=== PATIENT | female | born 1960 | race African-American/Black ===

== ENCOUNTER 2017-02-17 10:37 | Emergency (ER) | payer OTHER ==
[2017-02-17 10:54] VITALS: BMI 44.9
--- NOTE | 2017-02-17 12:02 | PDOC ---
History of Present Illness - General History Source: Patient Exam Limitations: No Limitations - History of Present Illness Initial Comments: 02/17/17 12:03 The patient is a 57-year old woman, accompanied by family, with a significant past medical history of anemia, hypertension, hypercholesterolemia, coronary artery disease, myocardial infarction x2, congestive heart failure status post ICD, thyroid disease, pelptic ulcers, asthma, chronic obstructive pulmonary disease and depression who presents to the emergency department via walk-in for further evaluation of right knee pain for the past 4 days. No fall, trauma, strenuous activity. She states that she woke up morning with sever eight knee pain that did not allow her to move or ambulate. Patient states that her pain is constant and radiates down her to her toes. No left knee or leg pain. She reports taking Tylenol for her pain, but states that it did not provide much relief. She denies experiencing numbness, weakness or tingling sensations to her extremities. She also reports having a hysterectomy with skin graft in 2006. She states that has a wound from the surgery that keeps opening. She reports following up with Dr. Reece Lanza, who recommends daily washes with lukewarm water and soap, as she has been informed that she isn't a surgical candidate as she is high risk. No abdominal pain, nausea, vomiting, diarrhea. No urinary complaints. She denies fever, chills, cough, shortness of breath. Allergies: Ibuprofen. Codeine. Chlorpheniramine. Cimetidine. Tomato Past Surgical History: Pacemaker. Stent Placements. Left knee surgery. Cholecysectomy. Hysterectomy with skin graft/ Social History: No tobacco, ETOH and recreational drug use. Primary Care Physician: Dr. Reece Lanza [phone] <Debra Pierson - Last Filed: 02/17/17 15:15> - General History Source: Patient, Old Records Exam Limitations: No Limitations <Tish Ward - Last Filed: 02/17/17 15:44> - General Chief Complaint: Pain, Acute Stated Complaint: ABD WOUND, PAIN TO HIP/ LEG Time Seen by Provider: 02/17/17 12:02 Past History <Debra Pierson - Last Filed: 02/17/17 15:15> - Past Medical History Anemia: Yes Asthma: Yes Cancer: No Cardiac Disorders: Yes ([place] X 2) COPD: Yes CHF: Yes (S/P ICD) Diabetes: Yes GI Disorders: Yes (PEPTIC ULCER) HTN: Yes Hypercholesterolemia: Yes Psychiatric Problems: Yes (DEPRESSION) Thyroid Disease: Yes - Surgical History Abdominal Surgery: No Appendectomy: No Cardiac Surgery: Yes (pacemaker and stents) Cholecystectomy: Yes Lung Surgery: No Neurologic Surgery: No Orthopedic Surgery: Yes (L. Knee) - Immunization History Immunization Up to Date: No - Psycho/Social/Smoking Cessation Hx Anxiety: No Suicidal Ideation: No Smoking Status: No Smoking History: Never smoked Have you smoked in the past 12 months: No Number of Cigarettes Smoked Daily: 0 Hx Alcohol Use: No Drug/Substance Use Hx: No Substance Use Type: None Hx Substance Use Treatment: No <Tish Ward - Last Filed: 02/17/17 15:44> - Past Medical History Allergies/Adverse Reactions: Allergies Allergy/AdvReac Type Severity Reaction Status Date / Time tomato Allergy Mild Hives Verified 01/18/17 12:46 chlorpheniramine Allergy Verified 01/18/17 12:46 cimetidine Allergy Verified 01/18/17 12:46 codeine [Codeine] Allergy Verified 01/18/17 12:46 ibuprofen Allergy Verified 01/18/17 12:46 latex [Latex] Allergy Verified 01/18/17 12:46 Latex, Natural Rubber Allergy Verified 01/18/17 12:46 pseudoephedrine Allergy Verified 01/18/17 12:46 salmeterol xinafoate Allergy Verified 01/18/17 12:46 [From Advair Diskus] Sulfa (Sulfonamide Allergy Verified 01/18/17 12:46 Antibiotics) [Sulfa(Sulfonamide Antibiotics)] Chocolate Allergy Mild Hives Uncoded 01/18/17 12:46 shrimp Allergy Mild Hives Uncoded 01/18/17 12:46 Home Medications: Ambulatory Orders Aspirin [ASA -] 81 mg PO HS 08/09/16 Atorvastatin Ca [Lipitor] 40 mg PO HS 08/09/16 Carvedilol [Coreg] 12.5 mg PO BID 08/09/16 Duloxetine HCl [Cymbalta] 30 mg PO DAILY 08/09/16 Fluticasone Propionate [Flovent Diskus] 100 mcg IH BID 08/09/16 Furosemide [Lasix -] 60 mg PO BID 08/09/16 Gabapentin [Neurontin -] 300 mg PO Q8H 08/09/16 Insulin Glargine,Hum.rec.anlog [Lantus Solostar PEN -] 40 units SQ ACBK Levothyroxine [Synthroid -] 75 mcg PO DAILY 08/09/16 Linaclotide [Linzess] 290 mcg PO DAILY 08/09/16 Montelukast Na [Singulair -] 10 mg PO HS 08/09/16 Omeprazole 20 mg PO TID 08/09/16 Albuterol Sulfate Inhaler - [Ventolin HFA Inhaler -] 1 - 2 inh PO Q4H PRN Amlodipine Besylate 5 mg PO HS 10/14/16 Budesonide/Formeterol Fumarate [SYMBICORT 160/4.5mcg -] 1 inh PO DAILY 10/14/16 Linagliptin/Metformin HCl [Jentadueto 2.5 mg-1000 mg Tab] 1 each PO BID Lipase/Protease/Amylase [Gildardo Goodman 36,000 Units Capsule] 1 each PO TID 10/14/16 Sacubitril/Valsartan [Entresto 24 mg-26 mg Tablet] 1 tab PO BID 10/14/16 Review of Systems - Review of Systems Able to Perform ROS?: Yes Comments:: 02/17/17 12:03 GENERAL/CONSTITUTIONAL: No fever or chills. No weakness. HEAD, EYES, EARS, NOSE AND THROAT: No change in vision. No ear pain or discharge. No sore throat. CARDIOVASCULAR: No chest pain or shortness of breath. RESPIRATORY: No cough, wheezing, or hemoptysis. GASTROINTESTINAL: No nausea, vomiting, diarrhea or constipation. GENITOURINARY: No dysuria, frequency, or change in urination. MUSCULOSKELETAL: Yes: Right knee pain that radiates down the leg. No joint or muscle swelling or pain. No neck or back pain. SKIN: Yes: Abdominal wound/scar. No rash NEUROLOGIC: No headache, vertigo, loss of consciousness, or change in strength/ sensation. ENDOCRINE: No increased thirst. No abnormal weight change. HEMATOLOGIC/LYMPHATIC: No anemia, easy bleeding, or history of blood clots. ALLERGIC/IMMUNOLOGIC: No hives or skin allergy. <Debra Pierson - Last Filed: 02/17/17 15:15> *Physical Exam - Vital Signs Last Vital Signs Temp Pulse Resp BP Pulse Ox 97.1 F L 105 H 18 128/92 97 02/17/17 10:52 02/17/17 10:52 02/17/17 10:52 02/17/17 10:52 02/17/17 10:52 - Physical Exam Comments: 02/17/17 12:03 GENERAL: Awake, alert, and fully oriented, in no acute distress HEAD: No signs of trauma EYES: PERRLA, EOMI, sclera anicteric, conjunctiva clear ENT: Auricles normal inspection, hearing grossly normal, nares patent, oropharynx clear without exudates. Moist mucosa NECK: Normal ROM, supple, no lymphadenopathy, JVD, or masses LUNGS: Breath sounds equal, clear to auscultation bilaterally. No wheezes, and no crackles HEART: Regular rate and rhythm, normal S1 and S2, no murmurs, rubs or gallops ABDOMEN: There is an approximately 2 by 2 cm healing wound to the anterior abdominal wall near prior skin graft and abdominal scar. The wound is not infected, no purulent drainage. Soft, nontender, normoactive bowel sounds. No guarding, no rebound. No masses EXTREMITIES: There is tenderness to palpation to the right patellar and right posterior calf. There is also some tenderness over the popliteal region. No edema. No clubbing or cyanosis. No cords, erythema. NEUROLOGICAL: Cranial nerves II through XII grossly intact. Normal speech, normal gait <David Piersonine - Last Filed: 02/17/17 15:15> - Vital Signs Last Vital Signs Temp Pulse Resp BP Pulse Ox 97.1 F L 105 H 18 128/92 97 02/17/17 10:52 02/17/17 10:52 02/17/17 10:52 02/17/17 10:52 02/17/17 10:52 <Tish Ward - Last Filed: 02/17/17 15:44> ED Treatment Course - RADIOLOGY Radiograph Interpretation: 02/17/17 14:23 EXAM: RAD/KNEE 2 POS-RIGHT IMPRESSION:Osteoarthritis of the right knee involving the patellofemoral joint compartment, lateral > media tibiofemoral joint compartments with degenerative lateral osteophytes. No acute bony abnormalities are seen. No evidence of suprapatellar joint effusion. No meniscal calcifications are seen. EXAM: US/DUPLEX VASCUL US-1 LEG IMPRESSION: Real time and doppler evaluation of the right lower extremity demonstrates the following: There is no evidence of deep venous thrombosis within the common, deep and superficial femoral veins, as well as the popliteal and posterior tibial veins. The greater saphenous vein is also patent. These veins are fully compressible, as well. <Debra Pierson - Last Filed: 02/17/17 15:15> Medical Decision Making - Medical Decision Making 02/17/17 13:13 57-year-old female with history of hypertension, chronic open wound to the abdomen who presents the emergency Department with complaints of right knee and leg pain 5 days and a chronic open wound to the abdomen. Differential diagnosis of the right knee and right lower extremity pain includes but is not limited to: DVT, Chaudhry's cyst, fracture, arthritis. The open wound to the abdomen is superficial and appears he is having and noninfected. Plan: 1. Plain films of the right knee 2. Lower extremity ultrasound to rule out DVT 3. Pain management 4. Referral to surgery to follow the chronic abdominal wound 02/17/17 15:42 Addendum: The imaging studies were reviewed and are noted in the electronic medical record. There is no evidence of DVT, fracture. There are some degenerative changes consistent with arthritis. The plan is to discharge the patient. Follow-up with her primary care physician within one week and return to the emergency department if symptoms persist, worsen, or new symptoms arise. <Tish Ward - Last Filed: 02/17/17 15:44> *DC/Admit/Observation/Transfer - Attestations Scribe Attestion: 02/17/17 12:03 Documentation prepared by Debra Pierson, acting as medical driver for Tish Ward MD. <Debra Pierson - Last Filed: 02/17/17 15:15> - Discharge Dispostion Admit: No - Attestations Physician Attestion: 02/17/17 13:14 I, Dr. Tish Ward, attest that the scribes documentation that appears above has been prepared under my direction and personally reviewed by me in its entirety. I confirmed that the note above accurately reflects all work, treatment, procedures, and medical decision-making performed by me. <Tish Ward - Last Filed: 02/17/17 15:44> Diagnosis at time of Disposition: Right knee pain - Discharge Dispostion Disposition: HOME Condition at time of disposition: Stable - Referrals Referrals: Reece Lanza MD [Primary Care Provider] - - Patient Instructions Printed Discharge Instructions: DI for Osteoarthritis Additional Instructions: He vascular study shows that you do not have a blood clot in her leg. The plain films your knee show that you have some generous changes consistent with arthritis. He may take Tylenol as needed for the pain. Please follow-up with your primary care physician within the next week and return to the emergency department if your symptoms persist, worsen, or new symptoms arise.
[2017-02-17] MEDS ORDERED: ACETAMINOPHEN 500 MG TABLET (FP) PO ONE (12:49)
[2017-02-17] MEDS ORDERED: ACETAMINOPHEN 325 MG TABLET (FP) ONE (13:14)
[2017-02-17 16:02] VITALS: BP 112/80; PULSE 90; TEMP 98
== END 2017-02-17 16:02 | disposition home or self-care (01) ==
LOC: JER 10:37
DX: M17.11 Unilateral primary osteoarthritis, right knee (principal); T81.30XA Disruption of wound, unspecified, initial encounter; I25.2 Old myocardial infarction; I11.0 Hypertensive heart disease with heart failure; E78.00 Pure hypercholesterolemia, unspecified; J45.909 Unspecified asthma, uncomplicated; J44.9 Chronic obstructive pulmonary disease, unspecified; K27.9 Peptic ulcer, site unspecified, unspecified as acute or chronic, without hemorrhage or perforation; F41.9 Anxiety disorder, unspecified; E07.89 Other specified disorders of thyroid
CPT/HCPCS: 73560-TC-RT; 93971-TC; 99282-25

== ENCOUNTER 2018-02-12 14:01 | Emergency (ER) | payer OTHER ==
[2018-02-12 14:07] VITALS: BP 120/67; PULSE 88; TEMP 98.3; BMI 41.9
[2018-02-12] MEDS ORDERED: ALBUTEROL SO4 2.5/IPRATROPIUM 0.5 INH SOL 3 ML VIAL.NEB. NEB ONE (14:40)
--- NOTE | 2018-02-12 15:29 | PDOC ---
History of Present Illness - General Chief Complaint: Cold Symptoms Stated Complaint: COUGH Time Seen by Provider: 02/12/18 14:19 History Source: Patient Exam Limitations: No Limitations - History of Present Illness Initial Comments: 02/12/18 15:23 58 yr female with c/o cough for 4 days , sneezing , fever 101 yesterday. Pt states she took care of her grand daughter last week with same symptoms. no vomiting or chest pain. Severity: reports: mild Past History - Past Medical History Allergies/Adverse Reactions: Allergies Allergy/AdvReac Type Severity Reaction Status Date / Time tomato Allergy Mild Hives Verified 02/12/18 14:07 chlorpheniramine Allergy Verified 02/12/18 14:07 cimetidine Allergy Verified 02/12/18 14:07 codeine [Codeine] Allergy Verified 02/12/18 14:07 ibuprofen Allergy Verified 02/12/18 14:07 latex [Latex] Allergy Verified 02/12/18 14:07 Latex, Natural Rubber Allergy Verified 02/12/18 14:07 pseudoephedrine Allergy Verified 02/12/18 14:07 salmeterol xinafoate Allergy Verified 02/12/18 14:07 [From Advair Diskus] Sulfa (Sulfonamide Allergy Verified 02/12/18 14:07 Antibiotics) [Sulfa(Sulfonamide Antibiotics)] Chocolate Allergy Mild Hives Uncoded 02/12/18 14:07 shrimp Allergy Mild Hives Uncoded 02/12/18 14:07 Home Medications: Ambulatory Orders Aspirin [ASA -] 81 mg PO HS 08/09/16 Atorvastatin Ca [Lipitor] 40 mg PO HS 08/09/16 Carvedilol [Coreg] 12.5 mg PO BID 08/09/16 Duloxetine HCl [Cymbalta] 30 mg PO DAILY 08/09/16 Fluticasone Propionate [Flovent Diskus] 100 mcg IH BID 08/09/16 Furosemide [Lasix -] 60 mg PO BID 08/09/16 Gabapentin [Neurontin -] 300 mg PO Q8H 08/09/16 Insulin Glargine,Hum.rec.anlog [Lantus Solostar PEN -] 40 units SQ ACBK Levothyroxine [Synthroid -] 75 mcg PO DAILY 08/09/16 Linaclotide [Linzess] 290 mcg PO DAILY 08/09/16 Montelukast Na [Singulair -] 10 mg PO HS 08/09/16 Omeprazole 20 mg PO TID 08/09/16 Albuterol Sulfate Inhaler - [Ventolin HFA Inhaler -] 1 - 2 inh PO Q4H PRN Amlodipine Besylate 5 mg PO HS 10/14/16 Budesonide/Formeterol Fumarate [SYMBICORT 160/4.5mcg -] 1 inh PO DAILY 10/14/16 Linagliptin/Metformin HCl [Jentadueto 2.5 mg-1000 mg Tab] 1 each PO BID Lipase/Protease/Amylase [Creon Dr 36,000 Units Capsule] 1 each PO TID 10/14/16 Sacubitril/Valsartan [Entresto 24 mg-26 mg Tablet] 1 tab PO BID 10/14/16 Albuterol Sulfate Inhaler - [Ventolin HFA Inhaler -] 1 - 2 inh PO Q4H #1 inhaler 02/13/18 Benzonatate [Tessalon Pearls -] 100 mg PO TID #21 capsule 02/13/18 Anemia: Yes Asthma: Yes Cancer: No Cardiac Disorders: Yes ([place] X 2) COPD: Yes CHF: Yes (S/P ICD) DVT: No Diabetes: Yes GI Disorders: Yes (PEPTIC ULCER) HTN: Yes Hypercholesterolemia: Yes Psychiatric Problems: Yes (DEPRESSION) Thyroid Disease: Yes - Surgical History Abdominal Surgery: No Appendectomy: No Cardiac Surgery: Yes (pacemaker and stents) Cholecystectomy: Yes Lung Surgery: No Neurologic Surgery: No Orthopedic Surgery: Yes (L. Knee) - Immunization History Immunization Up to Date: No - Suicide/Smoking/Psychosocial Hx Smoking Status: No Smoking History: Never smoked Have you smoked in the past 12 months: No Number of Cigarettes Smoked Daily: 0 Information on smoking cessation initiated: No Hx Alcohol Use: No Drug/Substance Use Hx: No Substance Use Type: None Hx Substance Use Treatment: No Respiratory Specific PMHX - Complaint Specific PMHX Angina: No Bronchitis: Yes Pneumonia: No Pulmonary Embolus: No TB (Tuberculosis): No Review of Systems - Review of Systems Able to Perform ROS?: Yes Is the patient limited Cymro proficient: No Constitutional: No: Symptoms Reported HEENTM: No: Symptoms Reported Respiratory: Yes: Symptoms reported, Cough Cardiac (ROS): No: Symptoms Reported ABD/GI: No: Symptoms Reported : No: Symptoms Reported Musculoskeletal: No: Symptoms Reported *Physical Exam - Vital Signs Last Vital Signs Temp Pulse Resp BP Pulse Ox 98.3 F 88 18 120/67 97 02/12/18 14:05 02/12/18 14:05 02/12/18 14:05 02/12/18 14:05 02/12/18 14:05 - Physical Exam General Appearance: Yes: Nourished, Appropriately Dressed HEENT: positive: EOMI, ZAC Neck: positive: Supple Respiratory/Chest: positive: Lungs Clear, Normal Breath Sounds, Wheezing (mild exp ) Cardiovascular: positive: Regular Rhythm, Regular Rate Gastrointestinal/Abdominal: positive: Normal Bowel Sounds, Soft Musculoskeletal: positive: Normal Inspection Extremity: positive: Normal Capillary Refill, Normal Inspection, Normal Range of Motion Integumentary: positive: Normal Color, Dry, Warm Neurologic: positive: Fully Oriented, Alert, Normal Mood/Affect, Normal Response , Motor Strength 04/04 ED Treatment Course - RADIOLOGY Radiology Studies Ordered: Category Date Time Status CHEST PA & LAT [RAD] Stat Radiology 02/12/18 14:35 Taken - Medications Given in the ED: ED Medications Discontinued Medications Generic Name Dose Route Start Last Admin Trade Name Freq PRN Reason Stop Dose Admin Albuterol/Ipratropium 1 amp 02/12/18 14:40 02/12/18 14:59 Duoneb - NEB 02/12/18 14:41 1 amp ONCE ONE Administration Medical Decision Making - Medical Decision Making 02/12/18 15:24 cc: cough , sneezing no wheezing , states fever 101 yesterday no chest pain or SOB will get CXR , duoneb 02/12/18 15:27 pt feels better after the nebulizer x 1 will give another nebulizer and re-evaluate 02/14/18 13:24 pt improved after second nebulizer will dc home with strict follow up with PMD pt agrees with the plan all questions asked and answered *DC/Admit/Observation/Transfer Diagnosis at time of Disposition: Bronchitis - Discharge Dispostion Disposition: HOME Condition at time of disposition: Good - Prescriptions Prescriptions: Albuterol Sulfate Inhaler - [Ventolin HFA Inhaler -] 1 - 2 inh PO Q4H #1 inhaler Benzonatate [Tessalon Pearls -] 100 mg PO TID #21 capsule - Referrals Referrals: Reece Lanza MD [Primary Care Provider] - - Patient Instructions Printed Discharge Instructions: DI for Acute Bronchitis Additional Instructions: drink pleanty of fluids to stay well hydrated use the albuterol inhaler as directed use tessalon perles as directed for cough follow with your doctor tomorrow or Friday for follow up take tylenol 650mg every 4-6hrs for fever - Post Discharge Activity
[2018-02-12] MEDS ORDERED: ALBUTEROL SO4 0.083% IH SOL 2.5 MG/3 ML VIAL.NEB. NEB ONE (15:44)
== END 2018-02-12 16:04 | disposition home or self-care (01) ==
LOC: JERFT 14:01
PROC: 3E0F7GC Introduction of Other Therapeutic Substance into Respiratory Tract, Via Natural or Artificial Opening (ICD-10-PCS; principal; 2018-02-12)
DX: J20.9 Acute bronchitis, unspecified (principal); I25.2 Old myocardial infarction; I25.10 Atherosclerotic heart disease of native coronary artery without angina pectoris; I10 Essential (primary) hypertension; Z95.5 Presence of coronary angioplasty implant and graft; Z95.0 Presence of cardiac pacemaker; J45.909 Unspecified asthma, uncomplicated; E11.9 Type 2 diabetes mellitus without complications; Z79.4 Long term (current) use of insulin; Z79.84 Long term (current) use of oral hypoglycemic drugs; E78.00 Pure hypercholesterolemia, unspecified; E03.9 Hypothyroidism, unspecified; F32.9 Major depressive disorder, single episode, unspecified; D64.9 Anemia, unspecified
CPT/HCPCS: 71046-TC-FY; 99281-25; J7620

== ENCOUNTER 2018-06-08 17:06 | Emergency (ER) | payer OTHER ==
--- NOTE | 2018-06-08 17:21 | PDOC ---
Rapid Medical Evaluation Time Seen by Provider: 06/08/18 17:20 Medical Evaluation: Allergies Allergy/AdvReac Type Severity Reaction Status Date / Time tomato Allergy Mild Hives Verified 06/08/18 17:20 chlorpheniramine Allergy Verified 06/08/18 17:20 cimetidine Allergy Verified 06/08/18 17:20 codeine [Codeine] Allergy Verified 06/08/18 17:20 ibuprofen Allergy Verified 06/08/18 17:20 latex [Latex] Allergy Verified 06/08/18 17:20 Latex, Natural Rubber Allergy Verified 06/08/18 17:20 pseudoephedrine Allergy Verified 06/08/18 17:20 salmeterol xinafoate Allergy Verified 06/08/18 17:20 [From Advair Diskus] Sulfa (Sulfonamide Allergy Verified 06/08/18 17:20 Antibiotics) [Sulfa(Sulfonamide Antibiotics)] Chocolate Allergy Mild Hives Uncoded 06/08/18 17:20 shrimp Allergy Mild Hives Uncoded 06/08/18 17:20 06/08/18 17:21 I have performed a brief in-person evaluation of this patient. The patient presents with a chief complaint of: SOB and wheezing since yesterday , h/o asthma-- catherine ETT, hospitalization, on medro dose michael and zpak given by PCP today, took 12mg of medro dose michael so far, had 2 nebs tx Pertinent physical exam findings:+ wheezing I have ordered the following: CXR, duo nebs and prednisone The patient will proceed to the ED for further evaluation. 06/08/18 17:24 Discharge Disposition - Diagnosis Asthma exacerbation Qualifiers: Asthma severity: moderate Asthma persistence: unspecified Qualified Code(s): J45.901 - Unspecified asthma with (acute) exacerbation - Referrals Referrals: Reece Lanza MD [Primary Care Provider] - - Patient Instructions - Post Discharge Activity
[2018-06-08] MEDS ORDERED: ALBUTEROL SO4 2.5/IPRATROPIUM 0.5 INH SOL 3 ML VIAL.NEB. NEB ONE ×2 (17:23→18:44)
[2018-06-08 17:26] VITALS: BP 118/86; PULSE 101; TEMP 99.2; BMI 43.2
[2018-06-08] MEDS ORDERED: DEXAMETHASONE 4 MG TABLET (FP) PO ONE (18:39)
[2018-06-08] MEDS ORDERED: DEXAMETHASONE SOD PHOSPHATE 10 MG/1 ML VIAL ONE (18:44)
[2018-06-08] MEDS: ALBUTEROL SO4 2.5/IPRATROPIUM 0.5 INH SOL 3 ML VIAL.NEB. NEB SCH ×4 (18:47→19:31)
--- NOTE | 2018-06-08 19:19 | PDOC ---
History of Present Illness - General History Source: Patient Exam Limitations: No Limitations <Adelaide Calixto - Last Filed: 06/08/18 19:36> - General History Source: Patient Exam Limitations: No Limitations - History of Present Illness Initial Comments: 06/08/18 19:46 The patient is a 58 year old female with a significant PMH of anemia, asthma, COPD, CHF, diabetes, hypertension, hypercholesterolemia, depression and thyroid disease who presents to the emergency department with cold symptoms for 4 days. The patient reports that she has been experiencing a persistent cough with her cold symptoms. The patient report that she tried two breathing treatments at home to no apparent relief. She reports some chest tightness secondary to her cough. The patient reports that she has experienced episodes similar to this in the past . The patient reports that she recently had sick contact with her granddaughter. She denies an other symptoms. She denies any fever, chills, nausea, vomit, diarrhea, constipation or urinary complaints. She denies any shortness of breath, headache and dizziness. The patient denies any other complaints. PCP: Dr. Lanza <Maxine Portillo - Last Filed: 06/08/18 19:47> - General Chief Complaint: Asthma Stated Complaint: Asthma Time Seen by Provider: 06/08/18 17:20 Past History - Past Medical History Anemia: Yes Asthma: Yes Cancer: No Cardiac Disorders: Yes ([place] X 2) COPD: Yes CHF: Yes (S/P ICD) DVT: No Diabetes: Yes GI Disorders: Yes (PEPTIC ULCER) HTN: Yes Hypercholesterolemia: Yes Psychiatric Problems: Yes (DEPRESSION) Thyroid Disease: Yes - Surgical History Abdominal Surgery: No Appendectomy: No Cardiac Surgery: Yes (pacemaker and stents) Cholecystectomy: Yes Lung Surgery: No Neurologic Surgery: No Orthopedic Surgery: Yes (L. Knee) - Immunization History Immunization Up to Date: No - Suicide/Smoking/Psychosocial Hx Smoking Status: No Smoking History: Never smoked Have you smoked in the past 12 months: No Number of Cigarettes Smoked Daily: 0 Hx Alcohol Use: No Drug/Substance Use Hx: No Substance Use Type: None Hx Substance Use Treatment: No <Adelaide Calixto - Last Filed: 06/08/18 19:36> <Maxine Portillo - Last Filed: 06/08/18 19:47> - Past Medical History Allergies/Adverse Reactions: Allergies Allergy/AdvReac Type Severity Reaction Status Date / Time tomato Allergy Mild Hives Verified 06/08/18 17:20 chlorpheniramine Allergy Verified 06/08/18 17:20 cimetidine Allergy Verified 06/08/18 17:20 codeine [Codeine] Allergy Verified 06/08/18 17:20 ibuprofen Allergy Verified 06/08/18 17:20 latex [Latex] Allergy Verified 06/08/18 17:20 Latex, Natural Rubber Allergy Verified 06/08/18 17:20 pseudoephedrine Allergy Verified 06/08/18 17:20 salmeterol xinafoate Allergy Verified 06/08/18 17:20 [From Advair Diskus] Sulfa (Sulfonamide Allergy Verified 06/08/18 17:20 Antibiotics) [Sulfa(Sulfonamide Antibiotics)] Chocolate Allergy Mild Hives Uncoded 06/08/18 17:20 shrimp Allergy Mild Hives Uncoded 06/08/18 17:20 Home Medications: Ambulatory Orders Aspirin [ASA -] 81 mg PO HS 08/09/16 Atorvastatin Ca [Lipitor] 40 mg PO HS 08/09/16 Carvedilol [Coreg] 12.5 mg PO BID 08/09/16 Duloxetine HCl [Cymbalta] 30 mg PO DAILY 08/09/16 Fluticasone Propionate [Flovent Diskus] 100 mcg IH BID 08/09/16 Furosemide [Lasix -] 60 mg PO BID 08/09/16 Gabapentin [Neurontin -] 300 mg PO Q8H 08/09/16 Insulin Glargine,Hum.rec.anlog [Lantus Solostar PEN -] 40 units SQ ACBK Levothyroxine [Synthroid -] 75 mcg PO DAILY 08/09/16 Linaclotide [Linzess] 290 mcg PO DAILY 08/09/16 Montelukast Na [Singulair -] 10 mg PO HS 08/09/16 Omeprazole 20 mg PO TID 08/09/16 Albuterol Sulfate Inhaler - [Ventolin HFA Inhaler -] 1 - 2 inh PO Q4H PRN Amlodipine Besylate 5 mg PO HS 10/14/16 Budesonide/Formeterol Fumarate [SYMBICORT 160/4.5mcg -] 1 inh PO DAILY 10/14/16 Linagliptin/Metformin HCl [Jentadueto 2.5 mg-1000 mg Tab] 1 each PO BID Lipase/Protease/Amylase [Gildardo Goodman 36,000 Units Capsule] 1 each PO TID 10/14/16 Sacubitril/Valsartan [Entresto 24 mg-26 mg Tablet] 1 tab PO BID 10/14/16 Albuterol Sulfate Inhaler - [Ventolin HFA Inhaler -] 1 - 2 inh PO Q4H #1 inhaler 02/13/18 Benzonatate [Tessalon Pearls -] 100 mg PO TID #21 capsule 02/13/18 Albuterol 2.5/Ipratropium 0.5 [Duoneb -] 1 neb NEB Q4H #20 vial 06/08/18 Review of Systems - Review of Systems Able to Perform ROS?: Yes Comments:: 06/08/18 19:46 GENERAL/CONSTITUTIONAL: No fever or chills. No weakness. HEAD, EYES, EARS, NOSE AND THROAT: No change in vision. No ear pain or discharge. No sore throat. CARDIOVASCULAR: (+)chest tightness. No shortness of breath. RESPIRATORY: (+) cough, No wheezing, or hemoptysis. GASTROINTESTINAL: No nausea, vomiting, diarrhea or constipation. GENITOURINARY: No dysuria, frequency, or change in urination. MUSCULOSKELETAL: No joint or muscle swelling or pain. No neck or back pain. SKIN: No rash NEUROLOGIC: No headache, vertigo, loss of consciousness, or change in strength/ sensation. ENDOCRINE: No increased thirst. No abnormal weight change. HEMATOLOGIC/LYMPHATIC: No anemia, easy bleeding, or history of blood clots. ALLERGIC/IMMUNOLOGIC: No hives or skin allergy. <Maxine Portillo - Last Filed: 06/08/18 19:47> *Physical Exam - Vital Signs Last Vital Signs Temp Pulse Resp BP Pulse Ox 99.2 F 101 H 20 118/86 98 06/08/18 17:21 06/08/18 17:21 06/08/18 17:21 06/08/18 17:21 06/08/18 17:21 <Adelaide Calixto - Last Filed: 06/08/18 19:36> - Vital Signs Last Vital Signs Temp Pulse Resp BP Pulse Ox 99.2 F 101 H 20 118/86 98 06/08/18 17:21 06/08/18 17:21 06/08/18 17:21 06/08/18 17:21 06/08/18 17:21 - Physical Exam Comments: 06/08/18 19:46 GENERAL: Awake, alert, and fully oriented, in no acute distress HEAD: No signs of trauma EYES: PERRLA, EOMI, sclera anicteric, conjunctiva clear ENT: Auricles normal inspection, hearing grossly normal, nares patent, oropharynx clear without exudates. Moist mucosa NECK: Normal ROM, supple, no lymphadenopathy, JVD, or masses LUNGS: (+)wheezing. Breath sounds equal, clear to auscultation bilaterally. No crackles HEART: Regular rate and rhythm, normal S1 and S2, no murmurs, rubs or gallops ABDOMEN: Soft, nontender, normoactive bowel sounds. No guarding, no rebound. No masses EXTREMITIES: (+)trace pitting edema. Normal range of motion. No clubbing or cyanosis. No cords, erythema, or tenderness NEUROLOGICAL: Cranial nerves II through XII grossly intact. Normal speech, normal gait SKIN: Warm, Dry, normal turgor, no rashes or lesions noted. <Maxine Portillo - Last Filed: 06/08/18 19:47> ED Treatment Course - Medications Given in the ED: ED Medications Discontinued Medications Generic Name Dose Route Start Last Admin Trade Name Freq PRN Reason Stop Dose Admin Albuterol/Ipratropium 1 amp 06/08/18 17:23 06/08/18 17:30 Duoneb - NEB 06/08/18 17:24 1 amp ONCE ONE Administration Dexamethasone 10 mg 06/08/18 18:39 06/08/18 18:47 Decadron - PO 06/08/18 18:40 10 mg ONCE ONE Administration <Adelaide Calixto - Last Filed: 06/08/18 19:36> - Medications Given in the ED: ED Medications Discontinued Medications Generic Name Dose Route Start Last Admin Trade Name Freq PRN Reason Stop Dose Admin Albuterol/Ipratropium 1 amp 06/08/18 17:23 06/08/18 17:30 Duoneb - NEB 06/08/18 17:24 1 amp ONCE ONE Administration Albuterol/Ipratropium 1 amp 06/08/18 18:45 06/08/18 19:31 Duoneb - NEB 06/08/18 19:31 Not Given Q15M DOM Dexamethasone 10 mg 06/08/18 18:39 06/08/18 18:47 Decadron - PO 06/08/18 18:40 10 mg ONCE ONE Administration <Maxine Portillo - Last Filed: 06/08/18 19:47> Medical Decision Making - Medical Decision Making 06/08/18 19:19 A portion of this note was documented by scribe services under my direction. I have reviewed the details of the note, within reason, and agree with the documentation with the following case summary and management plan written by me. Patient is a 58-year-old female with past medical history of asthma, COPD, heart failure, who presents to the emergency department today for an asthma exacerbation. On exam patient with expiratory wheezing. Not using accessory muscles to breathe. No pedal edema at this time. Patient given 3 duo nebs and prednisone in the emergency department. Patient reports relief of symptoms. Patient instructed to continue her home regimen of prednisone and azithromycin as previously prescribed by her primary care doctor. We'll discharge home at this time. Patient is to follow-up with her primary care doctor tomorrow. Return precautions given. Patient received all discharge instructions and all questions were answered. <Adelaide Calixto - Last Filed: 06/08/18 19:36> *DC/Admit/Observation/Transfer - Discharge Dispostion Decision to Admit order: No <Adelaide Calixto - Last Filed: 06/08/18 19:36> - Attestations Scribe Attestion: 06/08/18 19:47 Documentation prepared by Maxine Portillo, acting as medical equipment technician for Helio Todd MD. <Maxine Portillo - Last Filed: 06/08/18 19:47> Diagnosis at time of Disposition: Asthma exacerbation Qualifiers: Asthma severity: moderate Asthma persistence: unspecified Qualified Code(s): J45.901 - Unspecified asthma with (acute) exacerbation - Discharge Dispostion Disposition: HOME Condition at time of disposition: Stable - Prescriptions Prescriptions: Albuterol 2.5/Ipratropium 0.5 [Duoneb -] 1 neb NEB Q4H #20 vial - Referrals Referrals: Reece Lanza MD [Primary Care Provider] - - Patient Instructions Printed Discharge Instructions: Asthma -- Adult Additional Instructions: You have an asthma exacerbation. Please take the prednisone and Z-Tito as previously prescribed by her primary care doctor. Follow all directions on the package. Please use the duo nebs every 4 hours as needed for shortness of breath. Do not take your home albuterol nebulizers if you're taking this medication. Please follow up with her primary care doctor tomorrow Return to the emergency Department have increased difficulty breathing, shortness of breath, fevers, or if you have any changes in her symptoms. - Post Discharge Activity
== END 2018-06-08 19:43 | disposition home or self-care (01) ==
LOC: JERFT 17:06
PROC: 3E0F7GC Introduction of Other Therapeutic Substance into Respiratory Tract, Via Natural or Artificial Opening (ICD-10-PCS; principal; 2018-06-08)
PROC: 3E0F7GC Introduction of Other Therapeutic Substance into Respiratory Tract, Via Natural or Artificial Opening (ICD-10-PCS; 2018-06-08)
DX: J45.901 Unspecified asthma with (acute) exacerbation (principal); D64.9 Anemia, unspecified; J44.9 Chronic obstructive pulmonary disease, unspecified; I25.10 Atherosclerotic heart disease of native coronary artery without angina pectoris; I10 Essential (primary) hypertension; Z95.5 Presence of coronary angioplasty implant and graft; E78.00 Pure hypercholesterolemia, unspecified; E11.9 Type 2 diabetes mellitus without complications; F32.9 Major depressive disorder, single episode, unspecified; Z95.810 Presence of automatic (implantable) cardiac defibrillator; Z88.8 Allergy status to other drugs, medicaments and biological substances; Z91.018 Allergy to other foods
CPT/HCPCS: 71046-TC-FY; 94640; 99281-25; J7620

== ENCOUNTER 2018-09-15 14:04 | Emergency (ER) | payer OTHER ==
--- NOTE | 2018-09-15 14:34 | PDOC ---
Rapid Medical Evaluation Time Seen by Provider: 09/15/18 14:30 Medical Evaluation: Allergies Allergy/AdvReac Type Severity Reaction Status Date / Time tomato Allergy Mild Hives Verified 06/11/18 10:05 chlorpheniramine Allergy Verified 06/11/18 10:05 cimetidine Allergy Verified 06/11/18 10:05 codeine [Codeine] Allergy Verified 06/11/18 10:05 ibuprofen Allergy Verified 06/11/18 10:05 latex [Latex] Allergy Verified 06/11/18 10:05 Latex, Natural Rubber Allergy Verified 06/11/18 10:05 pseudoephedrine Allergy Verified 06/11/18 10:05 salmeterol xinafoate Allergy Verified 06/11/18 10:05 [From Advair Diskus] shellfish derived Allergy Verified 06/15/18 14:31 Sulfa (Sulfonamide Allergy Verified 06/11/18 10:05 Antibiotics) [Sulfa(Sulfonamide Antibiotics)] Chocolate Allergy Mild Hives Uncoded 06/11/18 10:05 shrimp Allergy Mild Hives Uncoded 06/11/18 10:05 09/15/18 14:30 I have performed a brief in-person evaluation of this patient. The patient presents with a chief complaint of: shortness of breath since Friday with congestion and coughing States coughing is non productive. Had neb treatment and used pump with no relief of symptoms Pertinent physical exam findings are: NAD +bibasilar expiratory wheezing non tender abdomen I have ordered the following: chest xray, neb treatment The patient will proceed to the ED for further evaluation. Discharge Disposition - Referrals Referrals: Reece Lanza MD [Primary Care Provider] - - Patient Instructions - Post Discharge Activity
[2018-09-15 14:36] VITALS: TEMP 99; BMI 41.9
--- NOTE | 2018-09-15 15:37 | PDOC ---
History of Present Illness - General Chief Complaint: Respiratory Stated Complaint: Cold Symptoms Time Seen by Provider: 09/15/18 14:30 History Source: Patient Exam Limitations: No Limitations - History of Present Illness Initial Comments: 09/15/18 18:55 Patient is a 58 year old female with a significant past medical history of who presents to the ED with complaints of shortness of breath that began x6 days ago. Patient reports returning to her home after having it remodeled for x1 month when she began to experiencing shortness of breath as well as associated symptoms of non productive cough, nasal congestion, runny nose, tearing, itching , painful eyes slight fever, prompting her to come into the ED. She reports taking x2 nebulizer treatments prior to ED arrival with no relief. Denies chest pain. Denies nausea, vomiting. Denies contact with sick individuals ,out of state travelling. Denies fevers, chills. Denies Allergies: tomato, chlorpheniramine, cimetidine, Codeine,ibuprofen , latex, Latex, Natural Rubber Allergy, pseudoephedrine, salmeterol xinafoate, Sulfa,Chocolate, shrimp Social history: No smoking. No alcohol. No illicit drugs. Surgical history: Cholecystectomy, Joint Replacement (left tkr), Permanent Pacemaker (ICD) PMD: Dr. Reece Lanza Past History - Past Medical History Allergies/Adverse Reactions: Allergies Allergy/AdvReac Type Severity Reaction Status Date / Time tomato Allergy Mild Hives Verified 09/15/18 14:32 chlorpheniramine Allergy Verified 09/15/18 14:32 cimetidine Allergy Verified 09/15/18 14:32 codeine [Codeine] Allergy Verified 09/15/18 14:32 ibuprofen Allergy Verified 09/15/18 14:32 latex [Latex] Allergy Verified 09/15/18 14:32 Latex, Natural Rubber Allergy Verified 09/15/18 14:32 pseudoephedrine Allergy Verified 09/15/18 14:32 salmeterol xinafoate Allergy Verified 09/15/18 14:32 [From Advair Diskus] shellfish derived Allergy Verified 09/15/18 14:32 Sulfa (Sulfonamide Allergy Verified 09/15/18 14:32 Antibiotics) [Sulfa(Sulfonamide Antibiotics)] Chocolate Allergy Mild Hives Uncoded 09/15/18 14:32 shrimp Allergy Mild Hives Uncoded 09/15/18 14:32 Home Medications: Ambulatory Orders Aspirin [ASA -] 81 mg PO DAILY 08/09/16 Atorvastatin Ca [Lipitor] 40 mg PO HS 08/09/16 Duloxetine HCl [Cymbalta] 30 mg PO BID 08/09/16 Fluticasone Propionate [Flovent Diskus] 100 mcg IH BID 08/09/16 Insulin Glargine,Hum.rec.anlog [Lantus Solostar PEN -] 25 units SQ HS 08/09/16 Levothyroxine [Synthroid -] 75 mcg PO DAILY 08/09/16 Linaclotide [Linzess] 290 mcg PO DAILY 08/09/16 Montelukast Na [Singulair -] 10 mg PO HS 08/09/16 Omeprazole 20 mg PO BID 08/09/16 Albuterol Sulfate Inhaler - [Ventolin HFA Inhaler -] 1 - 2 inh PO Q4H PRN Amlodipine Besylate 5 mg PO DAILY 10/14/16 Budesonide/Formeterol Fumarate [SYMBICORT 160/4.5mcg -] 2 puff PO DAILY Linagliptin/Metformin HCl [Jentadueto 2.5 mg-1000 mg Tab] 290 mcg PO BID Sacubitril/Valsartan [Entresto 24 mg-26 mg Tablet] 1 tab PO BID 10/14/16 Albuterol 2.5/Ipratropium 0.5 [Duoneb -] 1 neb NEB Q4H #20 vial 06/08/18 Apixaban [Eliquis -] 5 mg PO BID 06/11/18 Cyclobenzaprine HCl [Flexeril -] 10 mg PO TID PRN 06/11/18 Insulin Lispro [Humalog Rush Kwikpen] 100 unit SQ ASDIR 06/11/18 Liraglutide [Victoza 3-Tito] 1.8 mg SQ DAILY 06/11/18 Loratadine 10 mg PO DAILY 06/11/18 Mometasone Furoate [Asmanex] 2 spray IH BID 06/11/18 Ranolazine [Ranexa -] 500 mg PO BID 06/11/18 Carvedilol [Coreg -] 12.5 mg PO BID #60 tablet 06/15/18 Duloxetine HCl [Cymbalta -] 30 mg PO DAILY capsule. 06/15/18 Furosemide [Lasix -] 40 mg PO DAILY #30 tablet 06/15/18 Gabapentin [Neurontin -] 300 mg PO BID capsule 06/15/18 Magnesium Oxide [Mag-Ox -] 400 mg PO BID #60 tablet 06/15/18 Potassium Chloride [K-Dur -] 20 meq PO DAILY #30 tablet.er 06/15/18 predniSONE [Deltasone -] 10 mg PO DAILY #14 tablet 06/15/18 Azithromycin 250 mg PO DAILY #6 tablet 09/15/18 predniSONE [Deltasone -] 40 mg PO DAILY #8 tablet 09/15/18 Anemia: Yes Asthma: Yes Cancer: No Cardiac Disorders: Yes ([place] X 2) CVA: No COPD: Yes CHF: Yes (S/P ICD) DVT: No Dementia: No Diabetes: Yes GI Disorders: Yes (PEPTIC ULCER) Disorders: No HTN: Yes Hypercholesterolemia: Yes Liver Disease: No Psychiatric Problems: Yes (DEPRESSION) Seizures: No Thyroid Disease: Yes - Surgical History Abdominal Surgery: No Appendectomy: No Cardiac Surgery: Yes (pacemaker and stents) Cholecystectomy: Yes Lung Surgery: No Neurologic Surgery: No Orthopedic Surgery: Yes (L. Knee) - Immunization History Immunization Up to Date: No - Suicide/Smoking/Psychosocial Hx Smoking Status: No Smoking History: Never smoked Have you smoked in the past 12 months: No Number of Cigarettes Smoked Daily: 0 Hx Alcohol Use: No Drug/Substance Use Hx: No Substance Use Type: None Hx Substance Use Treatment: No Respiratory Specific PMHX - Complaint Specific PMHX Angina: No Bronchitis: Yes Pneumonia: No Pulmonary Embolus: No TB (Tuberculosis): No *Physical Exam - Vital Signs Last Vital Signs Temp Pulse Resp BP Pulse Ox 99 F 100 H 28 H 140/81 100 09/15/18 14:32 09/15/18 14:32 09/15/18 14:32 09/15/18 14:32 09/15/18 14:32 - Physical Exam Comments: 09/15/18 16:12 GENERAL: The patient is awake, alert, and fully oriented, Nontoxic - in no acute distress. HEAD: Normocephalic, atraumatic. EYES: extraocular movements intact, sclera anicteric, conjunctiva clear. ENT: Normal voice, Moist mucous membranes. NECK: Normal range of motion, supple LUNGS: inspiratory and expiratory wheezing, mild resp distress HEART: Regular rate and rhythm, normal S1 and S2 without murmur, rub or gallop. ABDOMEN: Soft, nontender, normoactive bowel sounds. No guarding, no rebound. . No CVA tenderness EXTREMITIES: Normal range of motion, +edmea NEUROLOGICAL: No facial assymetry, Normal speech, PSYCH: Normal mood, normal affect. SKIN: Warm, Dry, normal turgor, Heart Score/ECG Review - ECG Impressions Comment:: 09/15/18 18:43 Twelve-lead EKG was performed and reviewed by me. There is normal sinus rhythm with a normal rate. Rate of [address] wave changes suggestive of acute ischemia ED Treatment Course - LABORATORY CBC & Chemistry Diagram: 09/15/18 17:05 09/15/18 17:05 Medical Decision Making - Medical Decision Making 09/15/18 15:35 58y F hx of asthma, copd, chf, htn, dm, presents nonproductive cough/sob , n avery congsetion, itchy eyes, for the past 2 days, associated with feer tmax of 102. no cp, n/v, diarrhea, using home copd meds without significnat improvement 09/15/18 16:11 suspect copd vs bronchospasm secondary to viral illness vs pna will obtain blood work, cxr, tatiana give duonebs steroids willreassess 09/15/18 18:43 pts labs reviewed, unremarkble cxr clear willreasses, if pt able to abmulate w/o sob,/dyspnea will consider dc otherwise will admit for furthyer mangement of copd exacerbation 09/15/18 19:25 pt feeling well ambulating the length of th ED and back without any sob/dyspnea lungs cta will dc with pmd fu tomorrow (pt has standing appt) return precautiosn ewre discussed *DC/Admit/Observation/Transfer Diagnosis at time of Disposition: COPD exacerbation - Discharge Dispostion Disposition: HOME Condition at time of disposition: Improved Decision to Admit order: No - Prescriptions Prescriptions: Azithromycin 250 mg PO DAILY #6 tablet predniSONE [Deltasone -] 40 mg PO DAILY #8 tablet - Referrals Referrals: Reece Lanza MD [Primary Care Provider] - - Patient Instructions Printed Discharge Instructions: DI for Chronic Bronchitis Additional Instructions: Please take the medications as prescribed. Return to the Emergency Department i fyou feel persistently short of breath, have any chest pain or have any other concerns. Follow up with Dr. Lanza tomorrow as previously scheduled. Print Language: BHUTANESE - Post Discharge Activity
[2018-09-15] MEDS ORDERED: ALBUTEROL SO4 2.5/IPRATROPIUM 0.5 INH SOL 3 ML VIAL.NEB. NEB ONE ×2 (15:38→16:25)
[2018-09-15] MEDS ORDERED: predniSONE 20 MG TABLET (UD) PO ONE (16:11)
[2018-09-15] MEDS ORDERED: predniSONE 20 MG TABLET (UD) ONE (16:25)
[2018-09-15 17:23] LABS: BASO % 0.2 % (0-2.0); EOS % 1.7 % (0-4.5); HEMATOCRIT 36.2 % (32.4-45.2); HEMOGLOBIN 11.4 GM/dL (10.7-15.3); LYMPH % 36.7 % (8-40); MCH 26.5 pg (25.7-33.7); MCHC 31.5 g/dl (32.0-36.0); MEAN CELL VOLUME 84.1 fl (80-96); MEAN PLT VOLUME 9.8 fl (7.5-11.1); MONO % 6.6 % (3.8-10.2); NEUT % 54.8 % (42.8-82.8); PLATELET COUNT 256 K/MM3 (134-434); RDW 15.6 % (11.6-15.6); WHITE BLOOD COUNT 6.3 K/mm3 (4.0-10.0)
[2018-09-15] MEDS ORDERED: ALBUTEROL SO4 0.083% IH SOL 2.5 MG/3 ML VIAL.NEB. NEB ONE (17:28)
[2018-09-15 18:38] LABS: ALBUMIN 3.5 g/dl (3.4-5.0); ALK PHOS 72 U/L (45-117); ANION GAP 8 MMOL/L (8-16); BILIRUBIN,TOTAL 0.4 mg/dL (0.2-1); BLOOD UREA NITROGEN 6 mg/dL (7-18); CALCIUM 8.8 mg/dL (8.5-10.1); CHLORIDE 107 mmol/L (98-107); CO2 28 mmol/L (21-32); CREATININE 0.8 mg/dL (0.55-1.3); GLUCOSE,RANDOM 99 mg/dL (74-106); POTASSIUM 3.6 mmol/L (3.5-5.1); SGOT/AST 15 U/L (15-37); SGPT/ALT 10 U/L (13-61); SODIUM 143 mmol/L (136-145); TOT PROT 7.1 g/dl (6.4-8.2)
[2018-09-15 18:58] VITALS: BP 111/87; PULSE 73
--- NOTE | 2018-09-16 10:39 | EKG ---
Test Reason : Blood Pressure : / mmHG Vent. Rate : 076 BPM Atrial Rate : 076 BPM P-R Int : 130 ms QRS Dur : 096 ms QT Int : 434 ms P-R-T Axes : 070 -12 050 degrees QTc Int : 488 ms POOR DATA QUALITY, INTERPRETATION MAY BE ADVERSELY AFFECTED NORMAL SINUS RHYTHM MODERATE VOLTAGE CRITERIA FOR LVH, MAY BE NORMAL VARIANT NONSPECIFIC T WAVE ABNORMALITY ABNORMAL ECG WHEN COMPARED WITH ECG OF 11-JUN-2018 12:38, QT HAS LENGTHENED Confirmed by DEMARCUS MILLER, YUDI ([id number]) on 09/16/2018 10:39:33 AM Referred By: Confirmed By:YUDI TRACY MD
== END 2018-09-15 19:41 | disposition home or self-care (01) ==
LOC: JER 14:04
PROC: 3E0F7GC Introduction of Other Therapeutic Substance into Respiratory Tract, Via Natural or Artificial Opening (ICD-10-PCS; principal; 2018-09-15)
PROC: 3E0F7GC Introduction of Other Therapeutic Substance into Respiratory Tract, Via Natural or Artificial Opening (ICD-10-PCS; 2018-09-15)
DX: J44.1 Chronic obstructive pulmonary disease with (acute) exacerbation (principal); I25.10 Atherosclerotic heart disease of native coronary artery without angina pectoris; I10 Essential (primary) hypertension; Z95.5 Presence of coronary angioplasty implant and graft; Z95.810 Presence of automatic (implantable) cardiac defibrillator; J45.909 Unspecified asthma, uncomplicated; D64.9 Anemia, unspecified; E11.9 Type 2 diabetes mellitus without complications; Z79.4 Long term (current) use of insulin; F32.9 Major depressive disorder, single episode, unspecified; E78.00 Pure hypercholesterolemia, unspecified; E07.9 Disorder of thyroid, unspecified
CPT/HCPCS: 36415; 71045-TC-FY; 80053; 85025; 93005; 93010; 94640; 99282-25

== ENCOUNTER 2019-03-02 21:22 | Inpatient (IN) | payer OTHER ==
--- NOTE | 2019-03-02 22:13 | PDOC ---
Attending Attestation - Resident Resident Name: LongRoyce jaime - ED Attending Attestation I have performed the following: I have examined & evaluated the patient, The case was reviewed & discussed with the resident, I agree w/resident's findings & plan <Jazzmine Licona - Last Filed: 03/02/19 22:12> - ED Attending Attestation I have performed the following: I have examined & evaluated the patient, The case was reviewed & discussed with the resident, I agree w/resident's findings & plan, Exceptions are as noted - Physicial Exam PE: 03/02/19 2 03/02/19 22:32 <Letty Richards - Last Filed: 03/02/19 22:32>
[2019-03-02] MEDS ORDERED: methylPREDNISolone NA SUCC 125 MG/2 ML VIAL IVPB ONE (22:17)
[2019-03-02] MEDS ORDERED: MAGNESIUM SULF 50% (8.12 MEQ/2 ML-1 GM VIAL) IVPB ONE (22:17)
--- NOTE | 2019-03-02 22:17 | PDOC ---
Attending Attestation - Resident Resident Name: Effie Hsuan - ED Attending Attestation I have performed the following: I have examined & evaluated the patient, The case was reviewed & discussed with the resident, I agree w/resident's findings & plan, Exceptions are as noted - HPI HPI: 03/02/19 22:18 59 yo female BIBA for asthma exacerbation She has been using her albuterol MDIs at home with little improvement - Physicial Exam PE: 03/02/19 22:19 obese 59 yo p/w scattered expiratory breathing head ncat neck no jvd,no bruits lungs scattered expiratory wheezing cvs [id number] abd protuberant ext no edema skin clammy,diaphoretic neuro axox3,moving all extremities psych anxious - Medical Decision Making 03/02/19 22:32 asthma exacerbation plan resp tx,steroids,cbc,comp,cardiac,ekg 03/03/19 00:34 trop=0.12 ,needs to be repeated, pt has cardiac history and pace maker ,ICD- will admit to obs telemetry
--- NOTE | 2019-03-02 22:27 | PDOC ---
History of Present Illness - General Stated Complaint: ASTHMA Time Seen by Provider: 03/02/19 22:12 - History of Present Illness Initial Comments: The pt is a 59F w/ a history of asthma, CHF s/p pacemaker, VA x 3 (eliquis), and T2DM who presents for evaluation of shortness of breath since 1999 tonight. The pt states it feels like a typical asthma exacerbation for her. She denies being able to identify any trigger for her asthma today. She has been using her daily inhaler and had to use her rescue inhaler three times today w/ no relief. Denies fevers/chills, chest pain, N/V/C/D, abdominal pain, dysuria, hematuria, or changes in sensation/strength. Pt reports last being hospitalized last for her asthma in January 2018 Denies ever being intubated for her asthma 03/02/19 22:19 Past History - Past Medical History Allergies/Adverse Reactions: Allergies Allergy/AdvReac Type Severity Reaction Status Date / Time tomato Allergy Mild Hives Verified 09/15/18 14:32 chlorpheniramine Allergy Verified 09/15/18 14:32 cimetidine Allergy Verified 09/15/18 14:32 codeine [Codeine] Allergy Verified 09/15/18 14:32 ibuprofen Allergy Verified 09/15/18 14:32 latex [Latex] Allergy Verified 09/15/18 14:32 Latex, Natural Rubber Allergy Verified 09/15/18 14:32 pseudoephedrine Allergy Verified 09/15/18 14:32 salmeterol xinafoate Allergy Verified 09/15/18 14:32 [From Advair Diskus] shellfish derived Allergy Verified 09/15/18 14:32 Sulfa (Sulfonamide Allergy Verified 09/15/18 14:32 Antibiotics) [Sulfa(Sulfonamide Antibiotics)] Chocolate Allergy Mild Hives Uncoded 09/15/18 14:32 shrimp Allergy Mild Hives Uncoded 09/15/18 14:32 Home Medications: Ambulatory Orders Atorvastatin Ca [Lipitor] 40 mg PO HS 08/09/16 Duloxetine HCl [Cymbalta] 30 mg PO BID 08/09/16 Fluticasone Propionate [Flovent Diskus] 100 mcg IH BID 08/09/16 Insulin Glargine,Hum.rec.anlog [Lantus Solostar PEN -] 25 units SQ HS 08/09/16 Levothyroxine [Synthroid -] 75 mcg PO DAILY 08/09/16 Linaclotide [Linzess] 290 mcg PO DAILY 08/09/16 Montelukast Na [Singulair -] 10 mg PO HS 08/09/16 Omeprazole 20 mg PO BID 08/09/16 Albuterol Sulfate Inhaler - [Ventolin HFA Inhaler -] 1 - 2 inh PO Q4H PRN Amlodipine Besylate 5 mg PO DAILY 10/14/16 Budesonide/Formeterol Fumarate [SYMBICORT 160/4.5mcg -] 2 puff PO DAILY Linagliptin/Metformin HCl [Jentadueto 2.5 mg-1000 mg Tab] 290 mcg PO BID Sacubitril/Valsartan [Entresto 24 mg-26 mg Tablet] 1 tab PO BID 10/14/16 Albuterol 2.5/Ipratropium 0.5 [Duoneb -] 1 neb NEB Q4H #20 vial 06/08/18 Apixaban [Eliquis -] 5 mg PO BID 06/11/18 Cyclobenzaprine HCl [Flexeril -] 10 mg PO TID PRN 06/11/18 Insulin Lispro [Humalog Rush Kwikpen] 100 unit SQ ASDIR 06/11/18 Liraglutide [Victoza 3-Tito] 1.8 mg SQ DAILY 06/11/18 Loratadine 10 mg PO DAILY 06/11/18 Mometasone Furoate [Asmanex] 2 spray IH BID 06/11/18 Ranolazine [Ranexa -] 500 mg PO BID 06/11/18 Carvedilol [Coreg -] 12.5 mg PO BID #60 tablet 06/15/18 Duloxetine HCl [Cymbalta -] 30 mg PO DAILY capsule. 06/15/18 Furosemide [Lasix -] 40 mg PO DAILY #30 tablet 06/15/18 Gabapentin [Neurontin -] 300 mg PO BID capsule 06/15/18 Magnesium Oxide [Mag-Ox -] 400 mg PO BID #60 tablet 06/15/18 Potassium Chloride [K-Dur -] 20 meq PO DAILY #30 tablet.er 06/15/18 Azithromycin 250 mg PO DAILY #6 tablet 09/15/18 Anemia: Yes Asthma: Yes Cancer: No Cardiac Disorders: Yes (VA X 2) CVA: No COPD: Yes CHF: Yes (S/P ICD) DVT: No Dementia: No Diabetes: Yes GI Disorders: Yes (PEPTIC ULCER) Disorders: No HTN: Yes Hypercholesterolemia: Yes Liver Disease: No Psychiatric Problems: Yes (DEPRESSION) Seizures: No Thyroid Disease: Yes - Surgical History Abdominal Surgery: No Appendectomy: No Cardiac Surgery: Yes (pacemaker and stents) Cholecystectomy: Yes Lung Surgery: No Neurologic Surgery: No Orthopedic Surgery: Yes (L. Knee) - Immunization History Immunization Up to Date: No - Suicide/Smoking/Psychosocial Hx Smoking Status: No Smoking History: Never smoked Have you smoked in the past 12 months: No Number of Cigarettes Smoked Daily: 0 Hx Alcohol Use: No Drug/Substance Use Hx: No Substance Use Type: None Hx Substance Use Treatment: No Review of Systems - Review of Systems Able to Perform ROS?: Yes Comments:: GENERAL/CONSTITUTIONAL: No fever or chills. No weakness HEAD, EYES, EARS, NOSE AND THROAT: No change in vision or hearing. No sore throat CARDIOVASCULAR: No chest pain RESPIRATORY: Denies cough, hemoptysis GASTROINTESTINAL: No nausea, vomiting, diarrhea or constipation GENITOURINARY: No dysuria, frequency, or change in urination SKIN: No rash NEUROLOGIC: No headache, vertigo, loss of consciousness, or change in strength/ sensation HEMATOLOGIC/LYMPHATIC: No anemia, easy bleeding, or history of blood clots ALLERGIC/IMMUNOLOGIC: No hives or skin allergy 03/02/19 22:27 Is the patient limited Croatian proficient: No *Physical Exam - Vital Signs 03/02/19 23:42 - Physical Exam Comments: GENERAL: Awake, alert, and oriented to person/place/time HEAD: No signs of trauma, normocephalic, atraumatic EYES: PERRLA, EOMI, sclera anicteric, conjunctiva clear ENT: Hearing grossly normal, nares patent, oropharynx clear without exudates. Moist mucosa LUNGS: b/l diffuse expiratory wheezing HEART: tachycardic rate w/ regular rhythm, normal S1 and S2, no murmurs appreciated, peripheral pulses normal and equal bilaterally ABDOMEN: Soft, protuberant, nontender, normoactive bowel sounds. No guarding, no rebound EXTREMITIES: Normal inspection, Normal range of motion. No clubbing or cyanosis NEUROLOGICAL: Cranial nerves II through XII grossly intact. Normal speech, no focal sensorimotor deficits SKIN: Warm, diaphoretic 03/02/19 22:32 ED Treatment Course - LABORATORY CBC & Chemistry Diagram: 03/02/19 23:13 03/02/19 23:13 - RADIOLOGY Radiology Studies Ordered: Category Date Time Status CHEST X-RAY PORTABLE* [RAD] Stat Radiology 03/02/19 22:16 Ordered Medical Decision Making - Medical Decision Making The pt is a 59F w/ a history of CHF s/p pacemaker, asthma, T2DM who presents for evaluation of shortness of breath likely 2/2 an asthma exacerbation ED Course CMP, CBC, Trop I ECG CXR Duo-neb x3 Solumedrol 125mg IV once Mg 2g IV once 03/02/19 22:35 Pt reports feeling improved at this time. Will reassess again s/p completion of medications Pt 96% SpO2 on RA. Appears comfortable, not tachypnic. 03/02/19 23:31 Pt signed out to Dr[address] Hansen, presentation/findings/course to this point discussed and all questions answered. *DC/Admit/Observation/Transfer Diagnosis at time of Disposition: NSTEMI (non-ST elevated myocardial infarction) Asthma exacerbation Qualifiers: Asthma severity: moderate Asthma persistence: unspecified Qualified Code(s): J45.901 - Unspecified asthma with (acute) exacerbation - Referrals - Patient Instructions - Post Discharge Activity
[2019-03-02] MEDS ORDERED: methylPREDNISolone NA SUCC 125 MG/2 ML VIAL ONE (22:48)
[2019-03-02] MEDS ORDERED: ALBUTEROL SO4 2.5/IPRATROPIUM 0.5 INH SOL 3 ML VIAL.NEB. NEB ONE ×2 (22:48→23:53)
[2019-03-02] MEDS ORDERED: MAGNESIUM 1GM/D5W - 2 GM/200 ML IVPB IVPB ONE (22:48)
[2019-03-02] MEDS: ALBUTEROL SO4 2.5/IPRATROPIUM 0.5 INH SOL 3 ML VIAL.NEB. NEB SCH (23:17)
[2019-03-02 23:20] LABS: HEMATOCRIT 38.1 % (32.4-45.2); HEMOGLOBIN 12.2 GM/dL (10.7-15.3); MCH 26.9 pg (25.7-33.7); MCHC 32.1 g/dl (32.0-36.0); MEAN CELL VOLUME 83.8 fl (80-96); MEAN PLT VOLUME 10.1 fl (7.5-11.1); PLATELET COUNT 256 K/MM3 (134-434); RBC 4.54 M/mm3 (3.60-5.2); RDW 17.5 % (11.6-15.6); WHITE BLOOD COUNT 8.6 K/mm3 (4.0-10.0)
[2019-03-02 23:56] LABS: ALBUMIN 3.5 g/dl (3.4-5.0); ALK PHOS 88 U/L (45-117); ANION GAP 6 MMOL/L (8-16); BILIRUBIN,TOTAL 0.3 mg/dL (0.2-1); BLOOD UREA NITROGEN 10 mg/dL (7-18); CALCIUM 9.1 mg/dL (8.5-10.1); CHLORIDE 110 mmol/L (98-107); CO2 24 mmol/L (21-32); GLUCOSE,RANDOM 211 mg/dL (74-106); POTASSIUM 4.4 mmol/L (3.5-5.1); SGOT/AST 11 U/L (15-37); SGPT/ALT 10 U/L (13-61); SODIUM 140 mmol/L (136-145); TOT PROT 7.4 g/dl (6.4-8.2)
[2019-03-03] MEDS: ALBUTEROL SO4 2.5/IPRATROPIUM 0.5 INH SOL 3 ML VIAL.NEB. NEB SCH (00:12)
--- NOTE | 2019-03-03 03:34 | PDOC ---
*Physical Exam - Vital Signs Last Vital Signs Temp Pulse Resp BP Pulse Ox 97.2 F L 96 H 18 135/98 100 03/02/19 21:22 03/02/19 21:22 03/02/19 21:22 03/02/19 21:22 03/02/19 21:22 ED Treatment Course - LABORATORY CBC & Chemistry Diagram: 03/02/19 23:13 03/02/19 23:13 - ADDITIONAL ORDERS Additional order review: Laboratory Results 03/03/19 03/02/19 03/02/19 01:45 23:13 23:13 PTT (Actin FS) 40.4 H Sodium 140 Potassium 4.4 Chloride 110 H Carbon Dioxide 24 Anion Gap 6 L BUN 10 Creatinine 1.0 Creat Clearance w eGFR 56.75 Random Glucose 211 H Calcium 9.1 Total Bilirubin 0.3 AST 11 L ALT 10 L Alkaline Phosphatase 88 Troponin I 0.14 H 0.12 H Total Protein 7.4 Albumin 3.5 03/02/19 23:13 RBC 4.54 MCV 83.8 MCHC 32.1 RDW 17.5 H MPV 10.1 - Medications Given in the ED: ED Medications Discontinued Medications Generic Name Dose Route Start Last Admin Trade Name Freq PRN Reason Stop Dose Admin Albuterol/Ipratropium 1 amp 03/02/19 22:30 03/03/19 00:12 Duoneb - NEB 03/02/19 23:01 1 amp Q15M DOM Administration Magnesium Sulfate 2 gm 03/02/19 22:17 03/02/19 23:17 Magnesium Sulfate IVPB 03/02/19 22:18 2 gm ONCE ONE Administration Methylprednisolone Sodium Succinate 125 mg 03/02/19 22:17 03/02/19 23:17 Solu-Medrol - IVPB 03/02/19 22:18 125 mg ONCE ONE Administration *DC/Admit/Observation/Transfer Diagnosis at time of Disposition: NSTEMI (non-ST elevated myocardial infarction) Asthma exacerbation Qualifiers: Asthma severity: moderate Asthma persistence: unspecified Qualified Code(s): J45.901 - Unspecified asthma with (acute) exacerbation - Discharge Dispostion Decision to Admit order: Yes - Referrals Referrals: Reece Lanza MD [Primary Care Provider] - - Patient Instructions - Post Discharge Activity
--- NOTE | 2019-03-03 09:09 | CON.CARD ---
Cardiology Consult (text) - Consultation Consultation Note: Consult Specialty:: Cardiology Referred by:: Medicine Reason for Consultation:: shortness of breath - History of Present Illness Chief Complaint: Shortness of breath History of Present Illness: 59F with NICM s/p primary prevention ICD, HTN, asthma admitted with shortness of breath. Similar prior admissions, last 05/2018. Sees Dr. Mooney for cardio. Has been feeling weak for a couple of months, felt very short of breath yesterday with abdominal distension. did not improve with home lasix 40 mg or inhaler. Received steroids, nebs in ER, feels better. No chest pain, palps, dizziness. sob improving. - History Source History Provided By: Patient, Medical Record Limitations to Obtaining History: No Limitations - Past Medical History Cardio/Vascular: Yes: CHF (Chronic systolic CHF secondary to non-ischemic CM, ICD- primary prevention), HTN Pulmonary: Yes: Asthma, Sleep Apnea Endocrine: Yes: Diabetes Mellitus, Hypothyroidism - Past Surgical History Past Surgical History: Yes: Cholecystectomy, Joint Replacement (left tkr), Permanent Pacemaker (ICD) - Alcohol/Substance Use Hx Alcohol Use: No - Smoking History Smoking history: Never smoked Have you smoked in the past 12 months: No Aproximately how many cigarettes per day: 0 - Social History Usual Living Arrangement: With Spouse ADL: Independent History of Recent Travel: No Home Medications - Allergies Allergies/Adverse Reactions: Allergies Allergy/AdvReac Type Severity Reaction Status Date / Time tomato Allergy Mild Hives Verified 09/15/18 14:32 chlorpheniramine Allergy Verified 09/15/18 14:32 cimetidine Allergy Verified 09/15/18 14:32 codeine [Codeine] Allergy Verified 09/15/18 14:32 ibuprofen Allergy Verified 09/15/18 14:32 latex [Latex] Allergy Verified 09/15/18 14:32 Latex, Natural Rubber Allergy Verified 09/15/18 14:32 pseudoephedrine Allergy Verified 09/15/18 14:32 salmeterol xinafoate Allergy Verified 09/15/18 14:32 [From Advair Diskus] shellfish derived Allergy Verified 09/15/18 14:32 Sulfa (Sulfonamide Allergy Verified 09/15/18 14:32 Antibiotics) [Sulfa(Sulfonamide Antibiotics)] Chocolate Allergy Mild Hives Uncoded 09/15/18 14:32 shrimp Allergy Mild Hives Uncoded 09/15/18 14:32 Home Medications Medication Instructions Recorded Atorvastatin Ca [Lipitor] 40 mg PO HS 08/09/16 Duloxetine HCl [Cymbalta] 30 mg PO BID 08/09/16 Fluticasone Propionate [Flovent 100 mcg IH BID 08/09/16 Diskus] Insulin Glargine,Hum.rec.anlog 25 units SQ HS 08/09/16 [Lantus Solostar PEN -] Levothyroxine [Synthroid -] 75 mcg PO DAILY 08/09/16 Linaclotide [Linzess] 290 mcg PO DAILY 08/09/16 Montelukast Na [Singulair -] 10 mg PO HS 08/09/16 Omeprazole 20 mg PO BID 08/09/16 Albuterol Sulfate Inhaler - 1 - 2 inh PO Q4H PRN 10/14/16 [Ventolin HFA Inhaler -] Amlodipine Besylate 5 mg PO DAILY 10/14/16 Budesonide/Formeterol Fumarate 2 puff PO DAILY 10/14/16 [SYMBICORT 160/4.5mcg -] Linagliptin/Metformin HCl 290 mcg PO BID 10/14/16 [Jentadueto 2.5 mg-1000 mg Tab] Sacubitril/Valsartan [Entresto 24 1 tab PO BID 10/14/16 mg-26 mg Tablet] Albuterol 2.5/Ipratropium 0.5 1 neb NEB Q4H #20 vial 06/08/18 [Duoneb -] Apixaban [Eliquis -] 5 mg PO BID 06/11/18 Cyclobenzaprine HCl [Flexeril -] 10 mg PO TID PRN 06/11/18 Insulin Lispro [Humalog Rush 100 unit SQ ASDIR 06/11/18 Kwikpen] Liraglutide [Victoza 3-Tito] 1.8 mg SQ DAILY 06/11/18 Loratadine 10 mg PO DAILY 06/11/18 Mometasone Furoate [Asmanex] 2 spray IH BID 06/11/18 Ranolazine [Ranexa -] 500 mg PO BID 06/11/18 Carvedilol [Coreg -] 12.5 mg PO BID #60 tablet 06/15/18 Duloxetine HCl [Cymbalta -] 30 mg PO DAILY capsule. 06/15/18 Furosemide [Lasix -] 40 mg PO DAILY #30 tablet 06/15/18 Gabapentin [Neurontin -] 300 mg PO BID capsule 06/15/18 Magnesium Oxide [Mag-Ox -] 400 mg PO BID #60 tablet 06/15/18 Potassium Chloride [K-Dur -] 20 meq PO DAILY #30 tablet.er 06/15/18 Azithromycin 250 mg PO DAILY #6 tablet 09/15/18 Family Disease History - Family Disease History Family History: Unremarkable (non-contributory to this presentation) Review of Systems Findings/Remarks: See HPI - Review of Systems Constitutional: reports: No Symptoms Cardiovascular: reports: Shortness of Breath Respiratory: reports: SOB on Exertion, Wheezing Genitourinary: denies: No Symptoms, Burning, Discharge, Dysuria, Flank Pain, Frequency, Hematuria, Incontinence, Lesions, Menses, Pain, Testicular Mass, Testicular Pain, Testicular Swelling, Urgency, Vaginal Bleeding, Other Breasts: denies: No Symptoms Reported, See HPI, Breast Implants, Discharge from Nipple, Lumps, Pain, Skin Changes, Other Musculoskeletal: denies: No Symptoms, Back Pain, Crepitus, Decreased ROM, Extremity Pain, Joint Pain, Joint Swelling, Muscle Pain, Muscle Cramps, Muscle Weakness, Other Integumentary: denies: No Symptoms, Blister, Bruising, Change in Color, Eczema, Erythema, Incision, Lesions, Lump, Pallor, Pruritis, Rash, Wound, Other Neurological: denies: No Symptoms, Change in LOC, Change in Speech, Confusion, Dizziness, Headache, Incoordination, Numbness, Parasthesia, Pre-Existing Deficit , Seizure, Syncope, Tremors, Unsteady Gait, Weakness, Other Endocrine: denies: No Symptoms, Excessive Sweating, Flushing, Increased Hunger, Increased Thirst, Intolerance to Cold, Intolerance to Heat, Unexplained Weight Gain, Unexplained Weight Loss, Other Hematology/Lymphatic: denies: No Symptoms, Easily Bruised, Excessive Bleeding, Swollen Glands, Other Psychiatric: denies: No Symptoms, Altered Sleep Pattern, Anxiety, Depression, Hallucinations, Panic, Paranoia, Suicidal, Other - Risk Factors Known Risk Factors: Yes: Diabetes Mellitus, Hypertension Vital Signs Period Temp Pulse Resp BP Sys/Mcgrath Pulse Ox Last 24 Hr 97.2 F 96-97 18-18 129-135/71-98 98-100 Constitutional: Yes: No Distress Eyes: Yes: Conjunctiva Clear, EOM Intact HENT: Yes: Atraumatic, Normocephalic Neck: Yes: Trachea Midline Respiratory: Yes: dec breath sounds at bases bilaterally Gastrointestinal: Yes: Soft, Abdomen, Obese (obese,NT) Cardiovascular: Yes: Regular Rate and Rhythm JVD: Yes Carotid Bruit: No PMI: Non-Displaced Heart Sounds: Yes: S1, S2 (RRR, no murmurs) Edema: Yes Edema: LLE: Trace, RLE: Trace Peripheral Pulses WNL: Yes Neurological: Yes: Alert, Oriented ...Motor Strength: WNL Psychiatric: Yes: WNL Laboratory Last Values WBC 8.6 K/mm3 (4.0-10.0) 03/02/19 23:13 RBC 4.54 M/mm3 (3.60-5.2) 03/02/19 23:13 Hgb 12.2 GM/dL (10.7-15.3) 03/02/19 23:13 Hct 38.1 % (32.4-45.2) 03/02/19 23:13 MCV 83.8 fl (80-96) 03/02/19 23:13 MCH 26.9 pg (25.7-33.7) 03/02/19 23:13 MCHC 32.1 g/dl (32.0-36.0) 03/02/19 23:13 RDW 17.5 % (11.6-15.6) H 03/02/19 23:13 Plt Count 256 K/MM3 (134-434) 03/02/19 23:13 MPV 10.1 fl (7.5-11.1) 03/02/19 23:13 PTT (Actin FS) 40.4 SECONDS (25.2-36.5) H 03/02/19 23:13 Sodium 140 mmol/L (136-145) 03/02/19 23:13 Potassium 4.4 mmol/L (3.5-5.1) 03/02/19 23:13 Chloride 110 mmol/L (98-107) H 03/02/19 23:13 Carbon Dioxide 24 mmol/L (21-32) 03/02/19 23:13 Anion Gap 6 MMOL/L (8-16) L 03/02/19 23:13 BUN 10 mg/dL (7-18) 03/02/19 23:13 Creatinine 1.0 mg/dL (0.55-1.3) 03/02/19 23:13 Creat Clearance w eGFR 56.75 (>60) 03/02/19 23:13 Random Glucose 211 mg/dL (74-106) H 03/02/19 23:13 Calcium 9.1 mg/dL (8.5-10.1) 03/02/19 23:13 Total Bilirubin 0.3 mg/dL (0.2-1) 03/02/19 23:13 AST 11 U/L (15-37) L 03/02/19 23:13 ALT 10 U/L (13-61) L 03/02/19 23:13 Alkaline Phosphatase 88 U/L (45-117) 03/02/19 23:13 Troponin I 0.14 ng/ml (0.00-0.05) H 03/03/19 01:45 Total Protein 7.4 g/dl (6.4-8.2) 03/02/19 23:13 Albumin 3.5 g/dl (3.4-5.0) 03/02/19 23:13 Echo: Report Reviewed ( Office May 2018--> moderately reduced LVEF, No sig valve disease.) Prior Cardiac Procedures: Cardiac Catheterization (non-obstructive CAD) CXR: new congestive changes EKG: sinus, LBBB asthma exacerbation - given steroids, nebs in ER - manage per pulm Elevated troponin - flat trend, indeterminate range, likely demand, less c/w ACS - EKG with LBBB new compared to prior, no chest pain - check echo Chronic systolic CHF: -mild congestion on CXR -Continue Entresto, Coreg - echo in office 05/2018 with improved LV fx now moderately reduced, repeat echo as above -Routine office interrogation of ICD as outpatient - lasix 40 mg IV daily Chronic HTN: -cont home meds paroxysmal afib - cont eliquis, bb DM: -manage per primary HLD - cont statin
--- NOTE | 2019-03-03 10:10 | EKG ---
Test Reason : Blood Pressure : / mmHG Vent. Rate : 106 BPM Atrial Rate : 106 BPM P-R Int : 140 ms QRS Dur : 122 ms QT Int : 396 ms P-R-T Axes : 070 -18 103 degrees QTc Int : 526 ms SINUS TACHYCARDIA LEFT BUNDLE BRANCH BLOCK ABNORMAL ECG WHEN COMPARED WITH ECG OF 15-SEP-2018 16:53, LEFT BUNDLE BRANCH BLOCK IS NOW PRESENT Confirmed by DEMARCUS MILLER, YUDI ([id number]) on 03/03/2019 10:10:02 AM Referred By: Confirmed By:YUDI TRACY MD
[2019-03-03] MEDS ORDERED: FUROSEMIDE 40 MG/4 ML INJECTABLE VIAL IVPUSH SCH (10:15)
--- NOTE | 2019-03-03 10:15 | EKG ---
Test Reason : Blood Pressure : / mmHG Vent. Rate : 110 BPM Atrial Rate : 110 BPM P-R Int : 140 ms QRS Dur : 120 ms QT Int : 384 ms P-R-T Axes : 050 -15 090 degrees QTc Int : 519 ms SINUS TACHYCARDIA INCOMPLETE LEFT BUNDLE BRANCH BLOCK NONSPECIFIC ST AND T WAVE ABNORMALITY ABNORMAL ECG WHEN COMPARED WITH ECG OF 02-MAR-2019 22:35, NO SIGNIFICANT CHANGE WAS FOUND Confirmed by DEMARCUS MILLER, YUDI ([id number]) on 03/03/2019 10:15:25 AM Referred By: Confirmed By:YUDI TRACY MD
[2019-03-03] MEDS ORDERED: FUROSEMIDE 40 MG/4 ML INJECTABLE VIAL ONE (10:23)
--- NOTE | 2019-03-03 13:58 | ECHO ---
Name: SELINA BROWER Exam:Adult Echocardiogram Study Date: 03/03/2019 11:00 AM Age: 59 yrs Reason For Study: CHF Height: 66 in Weight: 260 lb BSA: 2.2 m2 MMode/2D Measurements & Calculations IVSd: 0.87 cm Ao root diam: 3.8 cm LVIDd: 7.0 cm LA dimension: 4.6 cm LVIDs: 6.0 cm ACS: 2.1 cm LVPWd: 0.79 cm IVSs: 0.75 cm LVPWs: 1.1 cm EDV(Teich): 255.7 ml ESV(Teich): 179.7 ml Doppler Measurements & Calculations MV E max vaughn: 92.3 cm/sec Ao V2 max: 115.5 cm/sec MV A max vaughn: 35.5 cm/sec Ao max P.3 mmHg MV E/A: 2.6 Ao V2 mean: 80.0 cm/sec MV dec time: 0.08 sec Ao mean P.0 mmHg Ao V2 VTI: 20.3 cm MR max vaughn: 332.4 cm/sec Med Peak E' Vaughn: 2.8 cm/sec MR max P.6 mmHg Med E/e': 32.7 Lat Peak E' Vaughn: 6.4 cm/sec Lat E/e': 14.4 Procedure A two-dimensional transthoracic echocardiogram with color flow and Doppler was performed. The study w as technically difficult with many images being suboptimal in quality. Left Ventricle The left ventricle is moderately dilated. Left ventricular systolic function is severely reduced. The re is severe global hypokinesis of the left ventricle. Regional wall motion abnormalities cannot be exclude d due to limited visualization. Right Ventricle The right ventricle is not well visualized. There is a pacemaker lead in the right ventricle. Atria The left atrium is moderately dilated. The right atrium is moderately dilated. Mitral Valve There is mild mitral valve thickening. There is no mitral valve stenosis. There is trace to mild mitr al regurgitation. Tricuspid Valve The tricuspid valve is not well visualized. There is no tricuspid stenosis. There was insufficient TR detected to calculate RV systolic pressure. Aortic Valve The aortic valve is not well visualized. No hemodynamically significant valvular aortic stenosis. No aortic regurgitation is present. Pulmonic Valve The pulmonic valve is not well visualized. Great Vessels The aortic root is normal size. Pericardium/Pleura There is no pericardial effusion. Interpretation Summary The study was technically difficult with many images being suboptimal in quality. The left ventricle is moderately dilated. The left atrium is moderately dilated. The right atrium is moderately dilated. Left ventricular systolic function is severely reduced. There is severe global hypokinesis of the left ventricle. There was insufficient TR detected to calculate RV systolic pressure. There is trace to mild mitral regurgitation. Regional wall motion abnormalities cannot be excluded due to limited visualization. There is a pacemaker lead in the right ventricle. MD Leander Armstrong 03/03/2019 01:57 PM
--- NOTE | 2019-03-03 14:06 | HP ---
Admitting History and Physical - Past Medical History Cardiovascular: Yes: CHF (Chronic systolic CHF secondary to non-ischemic CM, ICD - primary prevention), HTN. No: AFIB Pulmonary: Yes: Asthma, Sleep Apnea Endocrine: Yes: Diabetes Mellitus, Hypothyroidism - Past Surgical History Past Surgical History: Yes: Cholecystectomy, Joint Replacement (left tkr), Permanent Pacemaker (ICD) - Smoking History Smoking history: Never smoked Have you smoked in the past 12 months: No Aproximately how many cigarettes per day: 0 - Alcohol/Substance Use Hx Alcohol Use: No - Social History ADL: Independent History of Recent Travel: No Home Medications - Allergies Allergies/Adverse Reactions: Allergies Allergy/AdvReac Type Severity Reaction Status Date / Time tomato Allergy Mild Hives Verified 09/15/18 14:32 chlorpheniramine Allergy Verified 09/15/18 14:32 cimetidine Allergy Verified 09/15/18 14:32 codeine [Codeine] Allergy Verified 09/15/18 14:32 ibuprofen Allergy Verified 09/15/18 14:32 latex [Latex] Allergy Verified 09/15/18 14:32 Latex, Natural Rubber Allergy Verified 09/15/18 14:32 pseudoephedrine Allergy Verified 09/15/18 14:32 salmeterol xinafoate Allergy Verified 09/15/18 14:32 [From Advair Diskus] shellfish derived Allergy Verified 09/15/18 14:32 Sulfa (Sulfonamide Allergy Verified 09/15/18 14:32 Antibiotics) [Sulfa(Sulfonamide Antibiotics)] Chocolate Allergy Mild Hives Uncoded 09/15/18 14:32 shrimp Allergy Mild Hives Uncoded 09/15/18 14:32 - Home Medications Home Medications: Ambulatory Orders Atorvastatin Ca [Lipitor] 40 mg PO HS 08/09/16 Duloxetine HCl [Cymbalta] 30 mg PO BID 08/09/16 Fluticasone Propionate [Flovent Diskus] 100 mcg IH BID 08/09/16 Insulin Glargine,Hum.rec.anlog [Lantus Solostar PEN -] 25 units SQ HS 08/09/16 Levothyroxine [Synthroid -] 75 mcg PO DAILY 08/09/16 Linaclotide [Linzess] 290 mcg PO DAILY 08/09/16 Montelukast Na [Singulair -] 10 mg PO HS 08/09/16 Omeprazole 20 mg PO BID 08/09/16 Albuterol Sulfate Inhaler - [Ventolin HFA Inhaler -] 1 - 2 inh PO Q4H PRN Amlodipine Besylate 5 mg PO DAILY 10/14/16 Budesonide/Formeterol Fumarate [SYMBICORT 160/4.5mcg -] 2 puff PO DAILY Linagliptin/Metformin HCl [Jentadueto 2.5 mg-1000 mg Tab] 290 mcg PO BID Sacubitril/Valsartan [Entresto 24 mg-26 mg Tablet] 1 tab PO BID 10/14/16 Albuterol 2.5/Ipratropium 0.5 [Duoneb -] 1 neb NEB Q4H #20 vial 06/08/18 Apixaban [Eliquis -] 5 mg PO BID 06/11/18 Cyclobenzaprine HCl [Flexeril -] 10 mg PO TID PRN 06/11/18 Insulin Lispro [Humalog Rush Kwikpen] 100 unit SQ ASDIR 06/11/18 Liraglutide [Victoza 3-Tito] 1.8 mg SQ DAILY 06/11/18 Loratadine 10 mg PO DAILY 06/11/18 Mometasone Furoate [Asmanex] 2 spray IH BID 06/11/18 Ranolazine [Ranexa -] 500 mg PO BID 06/11/18 Carvedilol [Coreg -] 12.5 mg PO BID #60 tablet 06/15/18 Duloxetine HCl [Cymbalta -] 30 mg PO DAILY capsule. 06/15/18 Furosemide [Lasix -] 40 mg PO DAILY #30 tablet 06/15/18 Gabapentin [Neurontin -] 300 mg PO BID capsule 06/15/18 Magnesium Oxide [Mag-Ox -] 400 mg PO BID #60 tablet 06/15/18 Potassium Chloride [K-Dur -] 20 meq PO DAILY #30 tablet.er 06/15/18 Azithromycin 250 mg PO DAILY #6 tablet 09/15/18 Physical Examination Vital Signs: Vital Signs Temperature 99.1 F 03/03/19 10:25 Pulse Rate 109 H 03/03/19 10:25 Respiratory Rate 18 03/03/19 10:25 Blood Pressure 122/45 L 04/03/19 10:25 O2 Sat by Pulse Oximetry (%) 99 03/03/19 10:25 Labs: CBC, BMP 03/02/19 23:13 03/02/19 23:13
[2019-03-03] MEDS ORDERED: INSULIN LISPRO 100 UNIT SQ SCH (14:15)
[2019-03-03] MEDS ORDERED: methylPREDNISolone NA SUCC 40 MG/1 ML VIAL IVPUSH SCH (14:15)
[2019-03-03] MEDS ORDERED: CEFTRIAXONE 1 GM in DEXTROSE 5%-WATER - 50 ML IVPB SCH (14:45)
[2019-03-03] MEDS ORDERED: DEXTROSE 5%-WATER - 50 ML IVPB ONE (15:54)
[2019-03-03] MEDS ORDERED: cefTRIAXone SODIUM 1 GM VIAL ONE (15:54)
[2019-03-03] MEDS: metFORMIN HCL 500 MG TABLET (FP) PO SCH (16:22)
--- NOTE | 2019-03-03 16:34 | PN ---
Progress Note (short form) - Note Progress Note: PULMONARY CONSULTATION DICTATED 03/03/19 IMP ACUTE RESPIRATORY DISTRESS ACUTE ON CHRONIC CHF NON-ISCHEMIC CARDIOMYOPATHY S/P ICD WITH SEVERE GLOBAL HYPOKINESIA , SEVERE LV SYSTOLIC DYSFUNCTION H/O ASTHMA OSAS MORBID OBESITY DM HTN + TROPONIN PLAN IV LASIX INHALED BRONCHODILATORS MEDROL X 24HRS STRICT I+Os DAILY WT TREND TROPONNIN BNP D/C ABX F/U CHEST X-RAYS BIPAP AT NIGHT AND PRN DR GANN Problem List - Problems (1) CHF exacerbation Code(s): I50.9 - HEART FAILURE, UNSPECIFIED Qualifiers: Heart failure type: unspecified Qualified Code(s): I50.9 - Heart failure, unspecified (2) Diabetes Code(s): E11.9 - TYPE 2 DIABETES MELLITUS WITHOUT COMPLICATIONS Qualifiers: Diabetes mellitus type: type 2 (3) Hyperlipidemia Code(s): E78.5 - HYPERLIPIDEMIA, UNSPECIFIED (4) Hypertension Code(s): I10 - ESSENTIAL (PRIMARY) HYPERTENSION Qualifiers: Hypertension type: essential hypertension Qualified Code(s): I10 - Essential (primary) hypertension (5) ICD (implantable cardioverter-defibrillator) in place Code(s): Z95.810 - PRESENCE OF AUTOMATIC (IMPLANTABLE) CARDIAC DEFIBRILLATOR (6) Morbid obesity Code(s): E66.01 - MORBID (SEVERE) OBESITY DUE TO EXCESS CALORIES (7) Cardiomyopathy Code(s): I42.9 - CARDIOMYOPATHY, UNSPECIFIED (8) Acute on chronic systolic and diastolic heart failure, NYHA class 3 Code(s): I50.43 - ACUTE ON CHRONIC COMBINED SYSTOLIC AND DIASTOLIC HRT FAIL (9) Acute respiratory distress Code(s): R06.03 - ACUTE RESPIRATORY DISTRESS
[2019-03-03] MEDS: INSULIN SLIDING SCALE (NOVOLOG) 1 VIAL SQ SCH ×2 (17:16→22:26)
[2019-03-03] MEDS: sitaGLIPtin PHOSPHATE 100 MG TABLET (FP) PO SCH (17:16)
[2019-03-03 17:28] LABS: N-TERMINAL BNP 3050.9 pg/ml (5-125)
[2019-03-03 17:37] VITALS: BMI 35.5
[2019-03-03] MEDS: methylPREDNISolone NA SUCC 40 MG/1 ML VIAL IVPUSH SCH (17:40)
[2019-03-03] MEDS: BUDESONIDE/FORMETEROL FUMARATE 160/4.5 mcg INHALER IH SCH (17:40)
--- NOTE | 2019-03-03 18:44 | CONS ---
DATE OF CONSULTATION: 03/03/2019 PULMONARY CONSULTATION REFERRING PHYSICIAN: Mela Lewis M.D. HISTORY OF PRESENT ILLNESS: The patient is a 59-year-old black female with previous hospitalization with history of severe nonischemic cardiomyopathy status post ICD with severe global left ventricular global hypokinesia, severe LV dysfunction, hypertension, history of asthma since childhood, nonsmoker, chronic systolic CHF, obstructive sleep apnea on CPAP, diabetes, hypothyroidism, hypertension, admitted to [facility] with acute onset of shortness of breath. Patient states she was doing okay until evening prior to admission when she started developing when bending down severe acute onset of shortness of breath. She initially did not seek medical attention and sat down. Initially showed little improvement and her symptoms recurred with severe shortness of breath. EMS was called per the above and transferred to the ER. Apparently in the emergency room, she received IV Lasix, inhaled bronchodilators and steroids with clinical improvement and transferred to medical floor for further management. Chest x-ray in the emergency room revealed pulmonary vascular congestion. She also underwent an echo in the emergency room which revealed left ventricle moderately dilated with left ventricular systolic function severely reduced and severe global hypokinesia left ventricle. Patient denies any chest pains or palpitations. Denies any nausea, vomiting, or diaphoresis. Denies any hemoptysis. Denies any history of occupational exposure to chemicals or fumes. There is no history of recent travel. There is no history of DVT or PE in the past. PAST MEDICAL HISTORY: Again includes nonischemic cardiomyopathy with a severe LV dysfunction and global hypokinesia status post ICD, hypertension, asthma, morbid obesity, obstructive sleep apnea, diabetes, hypertension. REVIEW OF SYSTEMS: Positive orthopnea. Positive dyspnea. No chest pain. No palpitations. No cough. No hemoptysis. No fever. No chills. No abdominal pain. Positive mild lower extremity edema. CURRENT MEDICATIONS: Include Symbicort, Solu-Medrol, Mag-Ox, Zithromax, ceftriaxone, Eliquis, Neurontin, Cymbalta, DuoNeb, Coreg, Glucophage, Ranexa, Norvasc, Lipitor, NovoLog, Singulair, Lasix, Protonix, K-Dur, and Synthroid. PHYSICAL EXAMINATION: GENERAL: The patient is a morbidly obese black female awake, alert, currently in no acute distress. VITAL SIGNS: She is afebrile. Heart rate is 101. Blood pressure 129/46, O2 saturation 98% on room air. HEENT: Normocephalic, atraumatic. NECK: Supple. HEART: Regular S1, S2. CHEST: Bibasilar crackles. ABDOMEN: Soft, bowel sounds positive. EXTREMITIES: Bilateral lower extremity edema. LABORATORY: WBC is 8.6, hemoglobin 12.2, hematocrit 38.1, platelet count of 256,000, BUN is 10, creatinine 1.0, troponin 0.12, followup is 0.14. BNP is pending. Chest x-ray revealed cardiomegaly, congestive changes bilaterally. IMPRESSION: Acute respiratory distress secondary to: 1. Acute on chronic systolic congestive heart failure. 2. Nonischemic cardiomyopathy status post implantable cardioverter defibrillator with severe global hypokinesia and severe left ventricular systolic dysfunction. 3. Asthma. 4. Obstructive sleep apnea. 5. Morbid obesity. 6. Diabetes. 7. Hypertension. 8. Positive troponins. PLAN: Continue IV Lasix. Supplemental O2. Inhaled bronchodilators. Medrol x24 hours. Discontinue antibiotics. Obtain followup chest x-rays. Strict input and output. Daily weight. Trend troponin. Check the serum BNP. BiPAP at night as well as p.r.n. Imdur for increasing shortness of breath. HARRIET GANN M.D. FRANK/[id number]
[2019-03-03] MEDS ORDERED: PATIENT'S OWN MEDICATION (NON-FORMULARY) (Linagliptin/Metformin Hcl [Jentadueto 2.5 Mg-100 PO SCH (22:00)
[2019-03-03] MEDS: INSULIN (LEVEMIR) 100 UNITS/ML UNITS SQ SCH (22:25)
[2019-03-03] MEDS: MAGNESIUM OXIDE 400 MG TABLET (FP) PO SCH (22:26)
[2019-03-03] MEDS: CARVEDILOL 12.5 MG TABLET (FP) PO SCH (22:26)
[2019-03-03] MEDS: GABAPENTIN 300 MG CAPSULE (FP) PO SCH (22:26)
[2019-03-03] MEDS: MONTELUKAST NA 10 MG TABLET PO SCH (22:27)
[2019-03-03] MEDS: APIXABAN 5 MG TABLET PO SCH (22:27)
[2019-03-03] MEDS: DULoxetine HCL 30 MG CAPSULE.DR (FP) PO SCH (22:27)
[2019-03-03] MEDS: RANOLAZINE E.R. 500 MG TABLET (FP) PO SCH (22:27)
[2019-03-03] MEDS: PANTOPRAZOLE 20 MG TABLET (FP) PO SCH (22:27)
[2019-03-03] MEDS: ATORVASTATIN CA 40 MG TABLET (FP) PO SCH (22:27)
[2019-03-04] MEDS: ALBUTEROL SO4 2.5/IPRATROPIUM 0.5 INH SOL 3 ML VIAL.NEB. NEB PRN ×2 (00:25→06:19)
[2019-03-04] MEDS: methylPREDNISolone NA SUCC 40 MG/1 ML VIAL IVPUSH SCH ×2 (05:56→17:35)
[2019-03-04] MEDS: FUROSEMIDE 40 MG/4 ML INJECTABLE VIAL IVPUSH SCH ×2 (05:57→13:56)
[2019-03-04] MEDS: metFORMIN HCL 500 MG TABLET (FP) PO SCH ×2 (06:02→17:32)
[2019-03-04] MEDS: LEVOTHYROXINE NA 75 MCG TABLET (FP) PO SCH (06:02)
[2019-03-04] MEDS: INSULIN SLIDING SCALE (NOVOLOG) 1 VIAL SQ SCH ×4 (06:02→21:02)
[2019-03-04] MEDS: sitaGLIPtin PHOSPHATE 100 MG TABLET (FP) PO SCH ×2 (06:02→17:32)
[2019-03-04 07:55] LABS: BASO % 0.4 % (0-2.0); HEMATOCRIT 37.5 % (32.4-45.2); LYMPH % 16.3 % (8-40); MCH 26.9 pg (25.7-33.7); MEAN CELL VOLUME 83.9 fl (80-96); MEAN PLT VOLUME 10.1 fl (7.5-11.1); MONO % 9.5 % (3.8-10.2); NEUT % 73.8 % (42.8-82.8); PLATELET COUNT 306 K/MM3 (134-434); RBC 4.47 M/mm3 (3.60-5.2); RDW 17.7 % (11.6-15.6); WHITE BLOOD COUNT 10.5 K/mm3 (4.0-10.0)
[2019-03-04] MEDS ORDERED: INSULIN (LEVEMIR) 100 UNITS/ML UNITS SQ ONE (08:01)
[2019-03-04 08:31] LABS: ALBUMIN 3.9 g/dl (3.4-5.0); ALK PHOS 79 U/L (45-117); ANION GAP 10 MMOL/L (8-16); BILIRUBIN,TOTAL 0.4 mg/dL (0.2-1); BLOOD UREA NITROGEN 17 mg/dL (7-18); CALCIUM 9.3 mg/dL (8.5-10.1); CHLORIDE 103 mmol/L (98-107); CO2 26 mmol/L (21-32); CREATININE 1.3 mg/dL (0.55-1.3); GLUCOSE,RANDOM 190 mg/dL (74-106); POTASSIUM 4.7 mmol/L (3.5-5.1); SGOT/AST 10 U/L (15-37); SGPT/ALT 10 U/L (13-61); SODIUM 139 mmol/L (136-145); TOT PROT 7.8 g/dl (6.4-8.2)
[2019-03-04] MEDS ORDERED: AZITHROMYCIN IVPB 250 MG in DEXTROSE 5%-WATER - 250 ML IVPB SCH (10:00)
[2019-03-04] MEDS: DULoxetine HCL 30 MG CAPSULE.DR (FP) PO SCH ×2 (10:24→21:02)
[2019-03-04] MEDS: APIXABAN 5 MG TABLET PO SCH ×2 (10:24→21:02)
[2019-03-04] MEDS: POTASSIUM CHLORIDE TABS 20 MEQ TABLET.ER (FP) PO SCH (10:25)
[2019-03-04] MEDS: GABAPENTIN 300 MG CAPSULE (FP) PO SCH ×2 (10:25→21:02)
[2019-03-04] MEDS: RANOLAZINE E.R. 500 MG TABLET (FP) PO SCH ×2 (10:25→21:02)
[2019-03-04] MEDS: amLODIPine BESYLATE 5 MG TABLET (FP) PO SCH (10:25)
[2019-03-04] MEDS: PANTOPRAZOLE 20 MG TABLET (FP) PO SCH ×2 (10:25→21:02)
[2019-03-04] MEDS: CARVEDILOL 12.5 MG TABLET (FP) PO SCH ×2 (10:25→21:02)
[2019-03-04] MEDS: MAGNESIUM OXIDE 400 MG TABLET (FP) PO SCH ×2 (10:25→21:02)
[2019-03-04] MEDS: BUDESONIDE/FORMETEROL FUMARATE 160/4.5 mcg INHALER IH SCH (10:26)
--- NOTE | 2019-03-04 11:10 | PN ---
Progress Note (short form) - Note Progress Note: s: no cp palps dizzy; sob improving o: Vital Signs Period Temp Pulse Resp BP Sys/Mcgrath Pulse Ox Last 24 Hr 97.7 F-98.6 F 93-113 18-20 112-132/46-84 98-100 Constitutional: Yes: No Distress Eyes: Yes: Conjunctiva Clear HENT: Yes: Atraumatic, Normocephalic Neck: Yes: Trachea Midline Respiratory: Yes: dec breath sounds at bases bilaterally Gastrointestinal: Yes: Soft, Abdomen, Obese (obese,NT) Cardiovascular: Yes: Regular Rate and Rhythm Heart Sounds: Yes: S1, S2 (RRR, no murmurs) Edema: Yes Edema: LLE: Trace, RLE: Trace Peripheral Pulses WNL: Yes Neurological: Yes: Alert, Oriented Psychiatric: Yes: WNL Current Medications Generic Name Dose Route Start Last Admin Trade Name Freq PRN Reason Stop Dose Admin Albuterol/Ipratropium 1 amp 03/03/19 14:08 03/04/19 06:19 Duoneb - NEB 1 amp Q6H PRN Administration SHORTNESS OF BREATH Amlodipine Besylate 5 mg 03/04/19 10:00 03/04/19 10:25 Norvasc - PO 5 mg DAILY DOM Administration Apixaban 5 mg 03/03/19 22:00 03/04/19 10:24 Eliquis - PO 5 mg BID DOM Administration Atorvastatin Calcium 40 mg 03/03/19 22:00 03/03/19 22:27 Lipitor - PO 40 mg HS DOM Administration Budesonide/Formoterol Fumarate 2 puff 03/03/19 14:15 03/04/19 10:26 Symbicort 160/4.5mcg - IH 2 puff DAILY DOM Administration Carvedilol 12.5 mg 03/03/19 22:00 03/04/19 10:25 Coreg - PO 12.5 mg BID DOM Administration Duloxetine HCl 30 mg 03/03/19 22:00 03/04/19 10:24 Cymbalta - PO 30 mg BID DOM Administration Furosemide 40 mg 03/04/19 06:00 03/04/19 05:57 Lasix Injection - IVPUSH 40 mg BID@0600,1400 DOM Administration Gabapentin 300 mg 03/03/19 22:00 03/04/19 10:25 Neurontin - PO 300 mg BID DOM Administration Insulin Aspart 1 vial 03/03/19 16:30 03/04/19 06:02 Novolog Vial Sliding Scale - SQ 2 unit ACHS DOM Administration Protocol Insulin Detemir 25 units 03/03/19 22:00 03/03/19 22:25 Levemir Vial SQ 25 units HS DOM Administration Levothyroxine Sodium 75 mcg 03/04/19 07:00 03/04/19 06:02 Synthroid - PO 75 mcg AM DOM Administration Magnesium Oxide 400 mg 03/03/19 22:00 03/04/19 10:25 Mag-Ox - PO 400 mg BID DOM Administration Metformin HCl 1,000 mg 03/03/19 16:30 03/04/19 06:02 Glucophage - PO 1,000 mg BIDAC DOM Administration Methylprednisolone Sodium Succinate 40 mg 03/03/19 17:00 03/04/19 05:56 Solu-Medrol - IVPUSH 40 mg Q12H DOM Administration Montelukast Sodium 10 mg 03/03/19 22:00 03/03/19 22:27 Singulair - PO 10 mg HS DOM Administration Pantoprazole Sodium 20 mg 03/03/19 22:00 03/04/19 10:25 Protonix - PO 20 mg BID DOM Administration Potassium Chloride 20 meq 03/04/19 10:00 03/04/19 10:25 K-Dur - PO 20 meq DAILY DOM Administration Ranolazine 500 mg 03/03/19 22:00 03/04/19 10:25 Ranexa - PO 500 mg BID DOM Administration Sitagliptin Phosphate 100 mg 03/03/19 16:30 03/04/19 06:02 Januvia - PO 100 mg BIDAC DOM Administration CBC, BMP 03/04/19 06:34 03/04/19 06:34 Echo: Report Reviewed ( Office May 2018--> moderately reduced LVEF, No sig valve disease.) Prior Cardiac Procedures: Cardiac Catheterization (non-obstructive CAD) echo 03/2019: lve, sev dec lvef, global hk, vamsi, rv tds, no sig valve path CXR: new congestive changes tele: sr EKG: sinus, LBBB a/p: asthma exacerbation - on steroids - manage per pulm Elevated troponin - flat trend, indeterminate range, likely demand, not c/w ACS - EKG with LBBB new compared to prior, no chest pain Chronic systolic CHF: -mild congestion on CXR -Continue Entresto, Coreg -echo in office 05/2018 with improved LV fx now moderately reduced, repeat echo here with sev reduced lvef, would recheck as outpt when acute issues resolve -Routine office interrogation of ICD as outpatient -cont lasix IV for now, daily chem7 Chronic HTN: -cont home meds paroxysmal afib - cont demi felipe DM: -manage per primary HLD - cont statin
--- NOTE | 2019-03-04 11:56 | PN ---
Progress Note (short form) - Note Progress Note: SOB is improving. Used NIPPV overnight. Less SOB. NAD on RA. Intake & Output 03/01/19 03/02/19 03/03/19 03/04/19 23:59 23:59 23:59 23:59 Intake Total 240 300 Balance 240 300 Weight 260 lb 220 lb 265 lb Last Vital Signs Temp Pulse Resp BP Pulse Ox 97.9 F 100 H 20 124/83 100 03/04/19 09:01 03/04/19 09:01 03/04/19 09:01 03/04/19 09:01 03/04/19 09:00 Active Medications Albuterol/Ipratropium (Duoneb -) 1 amp NEB Q6H PRN PRN Reason: SHORTNESS OF BREATH Last Admin: 03/04/19 06:19 Dose: 1 amp Amlodipine Besylate (Norvasc -) 5 mg PO DAILY [facility] Last Admin: 03/04/19 10:25 Dose: 5 mg Apixaban (Eliquis -) 5 mg PO BID [facility] Last Admin: 03/04/19 10:24 Dose: 5 mg Atorvastatin Calcium (Lipitor -) 40 mg PO HS [facility] Last Admin: 03/03/19 22:27 Dose: 40 mg Budesonide/Formoterol Fumarate (Symbicort 160/4.5mcg -) 2 puff IH DAILY [facility] Last Admin: 03/04/19 10:26 Dose: 2 puff Carvedilol (Coreg -) 12.5 mg PO BID [facility] Last Admin: 03/04/19 10:25 Dose: 12.5 mg Duloxetine HCl (Cymbalta -) 30 mg PO BID [facility] Last Admin: 03/04/19 10:24 Dose: 30 mg Furosemide (Lasix Injection -) 40 mg IVPUSH BID@0600,1400 [facility] Last Admin: 03/04/19 05:57 Dose: 40 mg Gabapentin (Neurontin -) 300 mg PO BID [facility] Last Admin: 03/04/19 10:25 Dose: 300 mg Insulin Aspart (Novolog Vial Sliding Scale -) 1 vial SQ [facility]; Protocol Last Admin: 03/04/19 06:02 Dose: 2 unit Insulin Detemir (Levemir Vial) 25 units SQ [facility] Last Admin: 03/03/19 22:25 Dose: 25 units Levothyroxine Sodium (Synthroid -) 75 mcg PO AM [facility] Last Admin: 03/04/19 06:02 Dose: 75 mcg Magnesium Oxide (Mag-Ox -) 400 mg PO BID [facility] Last Admin: 03/04/19 10:25 Dose: 400 mg Metformin HCl (Glucophage -) 1,000 mg PO BIDAC [facility] Last Admin: 03/04/19 06:02 Dose: 1,000 mg Methylprednisolone Sodium Succinate (Solu-Medrol -) 40 mg IVPUSH Q12H [facility] Last Admin: 03/04/19 05:56 Dose: 40 mg Montelukast Sodium (Singulair -) 10 mg PO HS [facility] Last Admin: 03/03/19 22:27 Dose: 10 mg Pantoprazole Sodium (Protonix -) 20 mg PO BID [facility] Last Admin: 03/04/19 10:25 Dose: 20 mg Potassium Chloride (K-Dur -) 20 meq PO DAILY [facility] Last Admin: 03/04/19 10:25 Dose: 20 meq Ranolazine (Ranexa -) 500 mg PO BID [facility] Last Admin: 03/04/19 10:25 Dose: 500 mg Sitagliptin Phosphate (Januvia -) 100 mg PO BIDAC [facility] Last Admin: 03/04/19 06:02 Dose: 100 mg Constitutional: Yes: No Distress Eyes: Yes: Conjunctiva Clear, EOM Intact HENT: Yes: Atraumatic, Normocephalic Neck: Yes: Trachea Midline Respiratory: Yes: decreased breath sounds at bases, no wheeze Gastrointestinal: Yes: Soft, Abdomen, Obese (obese,NT) Cardiovascular: Yes: Regular Rate and Rhythm JVD: Yes Carotid Bruit: No PMI: Non-Displaced Heart Sounds: Yes: S1, S2 (RRR, no murmurs) Edema: Yes Edema: LLE: Trace, RLE: Trace Peripheral Pulses WNL: Yes Neurological: Yes: Alert, Oriented ...Motor Strength: WNL Psychiatric: Yes: WNL Laboratory Results - last 24 hr 03/03/19 03/03/19 03/03/19 15:50 16:19 22:09 WBC RBC Hgb Hct MCV MCH MCHC RDW Plt Count MPV Absolute Neuts (auto) Neutrophils % Lymphocytes % Monocytes % Eosinophils % Basophils % Nucleated RBC % Sodium Potassium Chloride Carbon Dioxide Anion Gap BUN Creatinine Creat Clearance w eGFR POC Glucometer 218 260 Random Glucose Calcium Total Bilirubin AST ALT Alkaline Phosphatase Creatine Kinase 210 H Creatine Kinase Index 1.0 CK-MB (CK-2) 2.2 Troponin I 0.15 H B-Natriuretic Peptide 3050.9 H Total Protein Albumin 03/04/19 03/04/19 03/04/19 05:45 06:34 06:34 WBC 10.5 H RBC 4.47 Hgb 12.0 Hct 37.5 MCV 83.9 MCH 26.9 MCHC 32.0 RDW 17.7 H Plt Count 306 MPV 10.1 Absolute Neuts (auto) 7.7 Neutrophils % 73.8 D Lymphocytes % 16.3 D Monocytes % 9.5 Eosinophils % 0.0 D Basophils % 0.4 Nucleated RBC % 0 Sodium 139 Potassium 4.7 Chloride 103 Carbon Dioxide 26 Anion Gap 10 BUN 17 Creatinine 1.3 Creat Clearance w eGFR 41.92 POC Glucometer 194 Random Glucose 190 H Calcium 9.3 Total Bilirubin 0.4 AST 10 L ALT 10 L Alkaline Phosphatase 79 Creatine Kinase Creatine Kinase Index CK-MB (CK-2) Troponin I B-Natriuretic Peptide Total Protein 7.8 Albumin 3.9 03/04/19 11:55 WBC RBC Hgb Hct MCV MCH MCHC RDW Plt Count MPV Absolute Neuts (auto) Neutrophils % Lymphocytes % Monocytes % Eosinophils % Basophils % Nucleated RBC % Sodium Potassium Chloride Carbon Dioxide Anion Gap BUN Creatinine Creat Clearance w eGFR POC Glucometer 277 Random Glucose Calcium Total Bilirubin AST ALT Alkaline Phosphatase Creatine Kinase Creatine Kinase Index CK-MB (CK-2) Troponin I B-Natriuretic Peptide Total Protein Albumin Problem List - Problems (1) CHF exacerbation Code(s): I50.9 - HEART FAILURE, UNSPECIFIED Qualifiers: Heart failure type: unspecified Qualified Code(s): I50.9 - Heart failure, unspecified (2) Diabetes Code(s): E11.9 - TYPE 2 DIABETES MELLITUS WITHOUT COMPLICATIONS Qualifiers: Diabetes mellitus type: type 2 (3) Hyperlipidemia Code(s): E78.5 - HYPERLIPIDEMIA, UNSPECIFIED (4) Hypertension Code(s): I10 - ESSENTIAL (PRIMARY) HYPERTENSION Qualifiers: Hypertension type: essential hypertension Qualified Code(s): I10 - Essential (primary) hypertension (5) ICD (implantable cardioverter-defibrillator) in place Code(s): Z95.810 - PRESENCE OF AUTOMATIC (IMPLANTABLE) CARDIAC DEFIBRILLATOR (6) Morbid obesity Code(s): E66.01 - MORBID (SEVERE) OBESITY DUE TO EXCESS CALORIES (7) Cardiomyopathy Code(s): I42.9 - CARDIOMYOPATHY, UNSPECIFIED (8) Acute on chronic systolic and diastolic heart failure, NYHA class 3 Code(s): I50.43 - ACUTE ON CHRONIC COMBINED SYSTOLIC AND DIASTOLIC HRT FAIL (9) Acute respiratory distress Code(s): R06.03 - ACUTE RESPIRATORY DISTRESS IMP ACUTE RESPIRATORY DISTRESS ACUTE ON CHRONIC CHF NON-ISCHEMIC CARDIOMYOPATHY S/P ICD WITH SEVERE GLOBAL HYPOKINESIA , SEVERE LV SYSTOLIC DYSFUNCTION H/O ASTHMA OSAS MORBID OBESITY DM HTN + TROPONIN PLAN IV LASIX INHALED BRONCHODILATORS MEDROL X 24HRS STRICT I+Os DAILY WT MONITOR OFF ABX NIPPV AT NIGHT AND PRN DR SIMPSON
[2019-03-04] MEDS: DOCUSATE SODIUM 100 MG CAPSULE (FP) PO SCH (21:02)
[2019-03-04] MEDS: MONTELUKAST NA 10 MG TABLET PO SCH (21:02)
[2019-03-04] MEDS: ATORVASTATIN CA 40 MG TABLET (FP) PO SCH (21:02)
[2019-03-04] MEDS: INSULIN (LEVEMIR) 100 UNITS/ML UNITS SQ SCH (21:03)
--- NOTE | 2019-03-04 22:34 | PN ---
Progress Note, Physician History of Present Illness: Pt still w/ SOB - Current Medication List Current Medications: Active Medications Albuterol/Ipratropium (Duoneb -) 1 amp NEB Q6H PRN PRN Reason: SHORTNESS OF BREATH Last Admin: 03/04/19 06:19 Dose: 1 amp Amlodipine Besylate (Norvasc -) 5 mg PO DAILY [facility] Last Admin: 03/04/19 10:25 Dose: 5 mg Apixaban (Eliquis -) 5 mg PO BID [facility] Last Admin: 03/04/19 21:02 Dose: 5 mg Atorvastatin Calcium (Lipitor -) 40 mg PO HS [facility] Last Admin: 03/04/19 21:02 Dose: 40 mg Budesonide/Formoterol Fumarate (Symbicort 160/4.5mcg -) 2 puff IH DAILY [facility] Last Admin: 03/04/19 10:26 Dose: 2 puff Carvedilol (Coreg -) 12.5 mg PO BID [facility] Last Admin: 03/04/19 21:02 Dose: 12.5 mg Docusate Sodium (Colace -) 100 mg PO TID [facility] Last Admin: 03/04/19 21:02 Dose: 100 mg Duloxetine HCl (Cymbalta -) 30 mg PO BID [facility] Last Admin: 03/04/19 21:02 Dose: 30 mg Furosemide (Lasix Injection -) 40 mg IVPUSH BID@0600,1400 [facility] Last Admin: 03/04/19 13:56 Dose: 40 mg Gabapentin (Neurontin -) 300 mg PO BID [facility] Last Admin: 03/04/19 21:02 Dose: 300 mg Insulin Aspart (Novolog Vial Sliding Scale -) 1 vial SQ [facility]; Protocol Last Admin: 03/04/19 21:02 Dose: 4 unit Insulin Detemir (Levemir Vial) 25 units SQ [facility] Last Admin: 03/04/19 21:03 Dose: 25 units Levothyroxine Sodium (Synthroid -) 75 mcg PO AM [facility] Last Admin: 03/04/19 06:02 Dose: 75 mcg Magnesium Oxide (Mag-Ox -) 400 mg PO BID [facility] Last Admin: 03/04/19 21:02 Dose: 400 mg Metformin HCl (Glucophage -) 1,000 mg PO BIDAC [facility] Last Admin: 03/04/19 17:32 Dose: 1,000 mg Methylprednisolone Sodium Succinate (Solu-Medrol -) 40 mg IVPUSH Q12H [facility] Last Admin: 03/04/19 17:35 Dose: 40 mg Montelukast Sodium (Singulair -) 10 mg PO HS [facility] Last Admin: 03/04/19 21:02 Dose: 10 mg Pantoprazole Sodium (Protonix -) 20 mg PO BID [facility] Last Admin: 03/04/19 21:02 Dose: 20 mg Potassium Chloride (K-Dur -) 20 meq PO DAILY [facility] Last Admin: 03/04/19 10:25 Dose: 20 meq Ranolazine (Ranexa -) 500 mg PO BID [facility] Last Admin: 03/04/19 21:02 Dose: 500 mg Sitagliptin Phosphate (Januvia -) 100 mg PO BIDAC [facility] Last Admin: 03/04/19 17:32 Dose: 100 mg - Objective Vital Signs: Vital Signs Temperature 98.3 F 03/04/19 22:00 Pulse Rate 99 H 03/04/19 22:00 Respiratory Rate 18 03/04/19 22:00 Blood Pressure 125/65 03/04/19 22:00 O2 Sat by Pulse Oximetry (%) 95 03/04/19 21:00 Constitutional: Yes: Obese Neck: Yes: WNL, Supple Cardiovascular: Yes: WNL, Regular Rate and Rhythm Respiratory: Yes: Diminished Gastrointestinal: Yes: WNL, Normal Bowel Sounds, Soft, Abdomen, Obese Edema: No Labs: CBC, BMP 03/04/19 06:34 03/04/19 06:34 Problem List - Problems (1) Asthma exacerbation Assessment/Plan: IV antibxs stopped Cont IV solumedrol Cont nebulizers Code(s): J45.901 - UNSPECIFIED ASTHMA WITH (ACUTE) EXACERBATION Qualifiers: Asthma severity: moderate Asthma persistence: unspecified Qualified Code( s): J45.901 - Unspecified asthma with (acute) exacerbation (2) Acute on chronic systolic (congestive) heart failure Assessment/Plan: Cont IV lasix Monitor electrolytes Code(s): I50.23 - ACUTE ON CHRONIC SYSTOLIC (CONGESTIVE) HEART FAILURE (3) Diabetes Assessment/Plan: Cont sliding scale w/ coverage Cont levemir/metformin/januvia Code(s): E11.9 - TYPE 2 DIABETES MELLITUS WITHOUT COMPLICATIONS Qualifiers: Diabetes mellitus type: type 2 (4) Hypertension Assessment/Plan: BP stable Cont Coreg/norvasc Code(s): I10 - ESSENTIAL (PRIMARY) HYPERTENSION Qualifiers: Hypertension type: essential hypertension Qualified Code(s): I10 - Essential (primary) hypertension (5) Hyperlipidemia Assessment/Plan: Cont lipitor Code(s): E78.5 - HYPERLIPIDEMIA, UNSPECIFIED (6) Paroxysmal A-fib Assessment/Plan: Heart rate controlled Cont eliquis Code(s): I48.0 - PAROXYSMAL ATRIAL FIBRILLATION (7) Hypothyroidism Assessment/Plan: Cont levothyroxine Code(s): E03.9 - HYPOTHYROIDISM, UNSPECIFIED (8) Morbid obesity Code(s): E66.01 - MORBID (SEVERE) OBESITY DUE TO EXCESS CALORIES
[2019-03-05] MEDS: methylPREDNISolone NA SUCC 40 MG/1 ML VIAL IVPUSH SCH (05:29)
[2019-03-05] MEDS: FUROSEMIDE 40 MG/4 ML INJECTABLE VIAL IVPUSH SCH ×2 (05:36→13:34)
[2019-03-05] MEDS: INSULIN SLIDING SCALE (NOVOLOG) 1 VIAL SQ SCH ×4 (06:21→22:49)
[2019-03-05] MEDS: LEVOTHYROXINE NA 75 MCG TABLET (FP) PO SCH (06:21)
[2019-03-05] MEDS: sitaGLIPtin PHOSPHATE 100 MG TABLET (FP) PO SCH ×2 (06:21→16:57)
[2019-03-05] MEDS: metFORMIN HCL 500 MG TABLET (FP) PO SCH ×2 (06:21→16:57)
[2019-03-05] MEDS: DOCUSATE SODIUM 100 MG CAPSULE (FP) PO SCH ×3 (06:21→22:38)
[2019-03-05 07:59] LABS: BASO % 0.2 % (0-2.0); HEMATOCRIT 36.9 % (32.4-45.2); HEMOGLOBIN 11.9 GM/dL (10.7-15.3); LYMPH % 14.6 % (8-40); MCH 26.8 pg (25.7-33.7); MCHC 32.1 g/dl (32.0-36.0); MEAN CELL VOLUME 83.3 fl (80-96); MEAN PLT VOLUME 10.1 fl (7.5-11.1); MONO % 5.3 % (3.8-10.2); NEUT % 79.9 % (42.8-82.8); PLATELET COUNT 312 K/MM3 (134-434); RBC 4.43 M/mm3 (3.60-5.2); RDW 17.6 % (11.6-15.6); WHITE BLOOD COUNT 9.3 K/mm3 (4.0-10.0)
[2019-03-05] MEDS: ALBUTEROL SO4 2.5/IPRATROPIUM 0.5 INH SOL 3 ML VIAL.NEB. NEB PRN ×2 (08:18→21:45)
[2019-03-05 08:37] LABS: ALBUMIN 3.9 g/dl (3.4-5.0); ALK PHOS 73 U/L (45-117); ANION GAP 11 MMOL/L (8-16); BILIRUBIN,TOTAL 0.4 mg/dL (0.2-1); BLOOD UREA NITROGEN 25 mg/dL (7-18); CALCIUM 9.5 mg/dL (8.5-10.1); CHLORIDE 99 mmol/L (98-107); CO2 27 mmol/L (21-32); CREATININE 1.2 mg/dL (0.55-1.3); GLUCOSE,RANDOM 196 mg/dL (74-106); POTASSIUM 4.8 mmol/L (3.5-5.1); SGOT/AST 9 U/L (15-37); SGPT/ALT 12 U/L (13-61); SODIUM 137 mmol/L (136-145); TOT PROT 7.6 g/dl (6.4-8.2)
[2019-03-05] MEDS: MAGNESIUM OXIDE 400 MG TABLET (FP) PO SCH ×2 (10:28→22:37)
[2019-03-05] MEDS: RANOLAZINE E.R. 500 MG TABLET (FP) PO SCH ×2 (10:28→22:36)
[2019-03-05] MEDS: PANTOPRAZOLE 20 MG TABLET (FP) PO SCH ×2 (10:28→22:35)
[2019-03-05] MEDS: CARVEDILOL 12.5 MG TABLET (FP) PO SCH ×2 (10:28→22:38)
[2019-03-05] MEDS: GABAPENTIN 300 MG CAPSULE (FP) PO SCH ×2 (10:29→22:36)
[2019-03-05] MEDS: POTASSIUM CHLORIDE TABS 20 MEQ TABLET.ER (FP) PO SCH (10:29)
[2019-03-05] MEDS: amLODIPine BESYLATE 5 MG TABLET (FP) PO SCH (10:29)
[2019-03-05] MEDS: APIXABAN 5 MG TABLET PO SCH ×2 (10:29→22:37)
[2019-03-05] MEDS: DULoxetine HCL 30 MG CAPSULE.DR (FP) PO SCH ×2 (10:29→22:37)
[2019-03-05] MEDS: BUDESONIDE/FORMETEROL FUMARATE 160/4.5 mcg INHALER IH SCH (10:33)
--- NOTE | 2019-03-05 10:39 | PN ---
Progress Note (short form) - Note Progress Note: s: no cp palps dizzy; sob improving o: Vital Signs Period Temp Pulse Resp BP Sys/Mcgrath Pulse Ox Last 24 Hr 97.9 F-98.3 F 82-102 16-18 106-127/62-79 95-99 Constitutional: Yes: No Distress Eyes: Yes: Conjunctiva Clear HENT: Yes: Atraumatic, Normocephalic Neck: Yes: Trachea Midline Respiratory: Yes: dec breath sounds at bases bilaterally Gastrointestinal: Yes: Soft, Abdomen, Obese (obese,NT) Cardiovascular: Yes: Regular Rate and Rhythm Heart Sounds: Yes: S1, S2 (RRR, no murmurs) Edema: Yes Edema: LLE: Trace, RLE: Trace Peripheral Pulses WNL: Yes Neurological: Yes: Alert, Oriented Current Medications Generic Name Dose Route Start Last Admin Trade Name Freq PRN Reason Stop Dose Admin Albuterol/Ipratropium 1 amp 03/03/19 14:08 03/05/19 08:18 Duoneb - NEB 1 amp Q6H PRN Administration SHORTNESS OF BREATH Amlodipine Besylate 5 mg 03/04/19 10:00 03/05/19 10:29 Norvasc - PO 5 mg DAILY DOM Administration Apixaban 5 mg 03/03/19 22:00 03/05/19 10:29 Eliquis - PO 5 mg BID DOM Administration Atorvastatin Calcium 40 mg 03/03/19 22:00 03/04/19 21:02 Lipitor - PO 40 mg HS DOM Administration Budesonide/Formoterol Fumarate 2 puff 03/03/19 14:15 03/05/19 10:33 Symbicort 160/4.5mcg - IH 2 puff DAILY DOM Administration Carvedilol 12.5 mg 03/03/19 22:00 03/05/19 10:28 Coreg - PO 12.5 mg BID DOM Administration Docusate Sodium 100 mg 03/04/19 22:00 03/05/19 06:21 Colace - PO 100 mg TID DOM Administration Duloxetine HCl 30 mg 03/03/19 22:00 03/05/19 10:29 Cymbalta - PO 30 mg BID DOM Administration Furosemide 40 mg 03/04/19 06:00 03/05/19 05:36 Lasix Injection - IVPUSH 40 mg BID@0600,1400 DOM Administration Gabapentin 300 mg 03/03/19 22:00 03/05/19 10:29 Neurontin - PO 300 mg BID DOM Administration Insulin Aspart 1 vial 03/03/19 16:30 03/05/19 06:21 Novolog Vial Sliding Scale - SQ 2 unit ACHS DOM Administration Protocol Insulin Detemir 25 units 03/03/19 22:00 03/04/19 21:03 Levemir Vial SQ 25 units HS DOM Administration Levothyroxine Sodium 75 mcg 03/04/19 07:00 03/05/19 06:21 Synthroid - PO 75 mcg AM DOM Administration Magnesium Oxide 400 mg 03/03/19 22:00 03/05/19 10:28 Mag-Ox - PO 400 mg BID DOM Administration Metformin HCl 1,000 mg 03/03/19 16:30 03/05/19 06:21 Glucophage - PO 1,000 mg BIDAC DOM Administration Methylprednisolone Sodium Succinate 40 mg 03/03/19 17:00 03/05/19 05:29 Solu-Medrol - IVPUSH 40 mg Q12H DOM Administration Montelukast Sodium 10 mg 03/03/19 22:00 03/04/19 21:02 Singulair - PO 10 mg HS DOM Administration Pantoprazole Sodium 20 mg 03/03/19 22:00 03/05/19 10:28 Protonix - PO 20 mg BID DOM Administration Potassium Chloride 20 meq 03/04/19 10:00 03/05/19 10:29 K-Dur - PO 20 meq DAILY DOM Administration Ranolazine 500 mg 03/03/19 22:00 03/05/19 10:28 Ranexa - PO 500 mg BID DOM Administration Sitagliptin Phosphate 100 mg 03/03/19 16:30 03/05/19 06:21 Januvia - PO 100 mg BIDAC DOM Administration CBC, BMP 03/05/19 07:00 03/05/19 07:00 Echo: Report Reviewed ( Office May 2018--> moderately reduced LVEF, No sig valve disease.) Prior Cardiac Procedures: Cardiac Catheterization (non-obstructive CAD) echo 03/2019: lve, sev dec lvef, global hk, vamsi, rv tds, no sig valve path CXR: new congestive changes tele: sr EKG: sinus, LBBB a/p: asthma exacerbation - on steroids - manage per pulm Elevated troponin - flat trend, indeterminate range, likely demand, not c/w ACS - EKG with LBBB new compared to prior, no chest pain Chronic systolic CHF: -mild congestion on CXR -Continue Entresto, Coreg -echo in office 05/2018 with improved LV fx now moderately reduced, repeat echo here with sev reduced lvef, would recheck as outpt when acute issues resolve -Routine office interrogation of ICD as outpatient -cont lasix IV for now, daily chem7 Chronic HTN: -cont home meds paroxysmal afib - cont eliqugolden bb DM: -manage per primary HLD - cont statin
--- NOTE | 2019-03-05 12:10 | PN ---
Progress Note, Physician History of Present Illness: PULMONARY ALERT,COMFORTABLE,-RESP DISTRESS,ON NASAL O2 - Current Medication List Current Medications: Active Medications Albuterol/Ipratropium (Duoneb -) 1 amp NEB Q6H PRN PRN Reason: SHORTNESS OF BREATH Last Admin: 03/05/19 08:18 Dose: 1 amp Amlodipine Besylate (Norvasc -) 5 mg PO DAILY [facility] Last Admin: 03/05/19 10:29 Dose: 5 mg Apixaban (Eliquis -) 5 mg PO BID [facility] Last Admin: 03/05/19 10:29 Dose: 5 mg Atorvastatin Calcium (Lipitor -) 40 mg PO HS [facility] Last Admin: 03/04/19 21:02 Dose: 40 mg Budesonide/Formoterol Fumarate (Symbicort 160/4.5mcg -) 2 puff IH DAILY [facility] Last Admin: 03/05/19 10:33 Dose: 2 puff Carvedilol (Coreg -) 12.5 mg PO BID [facility] Last Admin: 03/05/19 10:28 Dose: 12.5 mg Docusate Sodium (Colace -) 100 mg PO TID [facility] Last Admin: 03/05/19 06:21 Dose: 100 mg Duloxetine HCl (Cymbalta -) 30 mg PO BID [facility] Last Admin: 03/05/19 10:29 Dose: 30 mg Furosemide (Lasix Injection -) 40 mg IVPUSH BID@0600,1400 [facility] Last Admin: 03/05/19 05:36 Dose: 40 mg Gabapentin (Neurontin -) 300 mg PO BID [facility] Last Admin: 03/05/19 10:29 Dose: 300 mg Insulin Aspart (Novolog Vial Sliding Scale -) [address] [facility]; Protocol Last Admin: 03/05/19 11:23 Dose: 6 unit Insulin Detemir (Levemir Vial) 25 units SQ HS [facility] Last Admin: 03/04/19 21:03 Dose: 25 units Levothyroxine Sodium (Synthroid -) 75 mcg PO AM [facility] Last Admin: 03/05/19 06:21 Dose: 75 mcg Magnesium Oxide (Mag-Ox -) 400 mg PO BID [facility] Last Admin: 03/05/19 10:28 Dose: 400 mg Metformin HCl (Glucophage -) 1,000 mg PO BIDAC [facility] Last Admin: 03/05/19 06:21 Dose: 1,000 mg Methylprednisolone Sodium Succinate (Solu-Medrol -) 40 mg IVPUSH Q12H [facility] Last Admin: 03/05/19 05:29 Dose: 40 mg Montelukast Sodium (Singulair -) 10 mg PO HS [facility] Last Admin: 03/04/19 21:02 Dose: 10 mg Pantoprazole Sodium (Protonix -) 20 mg PO BID [facility] Last Admin: 03/05/19 10:28 Dose: 20 mg Potassium Chloride (K-Dur -) 20 meq PO DAILY [facility] Last Admin: 03/05/19 10:29 Dose: 20 meq Ranolazine (Ranexa -) 500 mg PO BID [facility] Last Admin: 03/05/19 10:28 Dose: 500 mg Sitagliptin Phosphate (Januvia -) 100 mg PO BIDAC [facility] Last Admin: 03/05/19 06:21 Dose: 100 mg - Objective Vital Signs: Vital Signs Temperature 97.9 F 03/05/19 10:00 Pulse Rate 95 H 03/05/19 10:00 Respiratory Rate 18 03/05/19 10:00 Blood Pressure 108/63 03/05/19 10:00 O2 Sat by Pulse Oximetry (%) 97 03/05/19 09:00 Constitutional: Yes: Well Nourished, Calm Eyes: Yes: WNL HENT: Yes: WNL Neck: Yes: WNL Cardiovascular: Yes: Pulse Irregular, S1, S2 Respiratory: Yes: Diminished Gastrointestinal: Yes: Normal Bowel Sounds, Soft Extremities: Yes: WNL Edema: Yes Labs: CBC, BMP 03/05/19 07:00 03/05/19 07:00 Problem List - Problems (1) CHF exacerbation Code(s): I50.9 - HEART FAILURE, UNSPECIFIED Qualifiers: Heart failure type: unspecified Qualified Code(s): I50.9 - Heart failure, unspecified (2) Diabetes Code(s): E11.9 - TYPE 2 DIABETES MELLITUS WITHOUT COMPLICATIONS Qualifiers: Diabetes mellitus type: type 2 (3) Hyperlipidemia Code(s): E78.5 - HYPERLIPIDEMIA, UNSPECIFIED (4) Hypertension Code(s): I10 - ESSENTIAL (PRIMARY) HYPERTENSION Qualifiers: Hypertension type: essential hypertension Qualified Code(s): I10 - Essential (primary) hypertension (5) ICD (implantable cardioverter-defibrillator) in place Code(s): Z95.810 - PRESENCE OF AUTOMATIC (IMPLANTABLE) CARDIAC DEFIBRILLATOR (6) Morbid obesity Code(s): E66.01 - MORBID (SEVERE) OBESITY DUE TO EXCESS CALORIES (7) Cardiomyopathy Code(s): I42.9 - CARDIOMYOPATHY, UNSPECIFIED (8) Acute on chronic systolic and diastolic heart failure, NYHA class 3 Code(s): I50.43 - ACUTE ON CHRONIC COMBINED SYSTOLIC AND DIASTOLIC HRT FAIL (9) Acute respiratory distress Code(s): R06.03 - ACUTE RESPIRATORY DISTRESS Assessment/Plan IMP ACUTE RESPIRATORY DISTRESS IMPROVED ACUTE ON CHRONIC CHF IMPROVING NON-ISCHEMIC CARDIOMYOPATHY S/P ICD WITH SEVERE GLOBAL HYPOKINESIA , SEVERE LV SYSTOLIC DYSFUNCTION H/O ASTHMA OSAS MORBID OBESITY DM HTN + TROPONIN PLAN IV LASIX INHALED BRONCHODILATORS MEDROL TAPER STRICT I+Os DAILY WT TREND TROPONNIN F/U CHEST X-RAYS BIPAP AT NIGHT AND PRN DR GANN Problem List - Problems (1) CHF exacerbation Code(s): I50.9 - HEART FAILURE, UNSPECIFIED Qualifiers: Heart failure type: unspecified Qualified Code(s): I50.9 - Heart failure, unspecified (2) Diabetes Code(s): E11.9 - TYPE 2 DIABETES MELLITUS WITHOUT COMPLICATIONS Qualifiers: Diabetes mellitus type: type 2 (3) Hyperlipidemia Code(s): E78.5 - HYPERLIPIDEMIA, UNSPECIFIED (4) Hypertension Code(s): I10 - ESSENTIAL (PRIMARY) HYPERTENSION Qualifiers: Hypertension type: essential hypertension Qualified Code(s): I10 - Essential (primary) hypertension (5) ICD (implantable cardioverter-defibrillator) in place Code(s): Z95.810 - PRESENCE OF AUTOMATIC (IMPLANTABLE) CARDIAC DEFIBRILLATOR (6) Morbid obesity Code(s): E66.01 - MORBID (SEVERE) OBESITY DUE TO EXCESS CALORIES (7) Cardiomyopathy Code(s): I42.9 - CARDIOMYOPATHY, UNSPECIFIED (8) Acute on chronic systolic and diastolic heart failure, NYHA class 3 Code(s): I50.43 - ACUTE ON CHRONIC COMBINED SYSTOLIC AND DIASTOLIC HRT FAIL (9) Acute respiratory distress Code(s): R06.03 - ACUTE RESPIRATORY DISTRESS
[2019-03-05] MEDS: ATORVASTATIN CA 40 MG TABLET (FP) PO SCH (22:36)
[2019-03-05] MEDS: MONTELUKAST NA 10 MG TABLET PO SCH (22:37)
[2019-03-05] MEDS: INSULIN (LEVEMIR) 100 UNITS/ML UNITS SQ SCH (22:40)
--- NOTE | 2019-03-06 02:01 | PN ---
Progress Note, Physician History of Present Illness: Pt seen and examined 03/05/19 however note is being entered now - Current Medication List Current Medications: Active Medications Albuterol/Ipratropium (Duoneb -) 1 amp NEB Q6H PRN PRN Reason: SHORTNESS OF BREATH Last Admin: 03/05/19 21:45 Dose: 1 amp Amlodipine Besylate (Norvasc -) 5 mg PO DAILY [facility] Last Admin: 03/05/19 10:29 Dose: 5 mg Apixaban (Eliquis -) 5 mg PO BID [facility] Last Admin: 03/05/19 22:37 Dose: 5 mg Atorvastatin Calcium (Lipitor -) 40 mg PO HS [facility] Last Admin: 03/05/19 22:36 Dose: 40 mg Budesonide/Formoterol Fumarate (Symbicort 160/4.5mcg -) 2 puff IH DAILY [facility] Last Admin: 03/05/19 10:33 Dose: 2 puff Carvedilol (Coreg -) 12.5 mg PO BID [facility] Last Admin: 03/05/19 22:38 Dose: 12.5 mg Docusate Sodium (Colace -) 100 mg PO TID [facility] Last Admin: 03/05/19 22:38 Dose: 100 mg Duloxetine HCl (Cymbalta -) 30 mg PO BID [facility] Last Admin: 03/05/19 22:37 Dose: 30 mg Furosemide (Lasix Injection -) 40 mg IVPUSH BID@0600,1400 [facility] Last Admin: 03/05/19 13:34 Dose: 40 mg Gabapentin (Neurontin -) 300 mg PO BID [facility] Last Admin: 03/05/19 22:36 Dose: 300 mg Insulin Aspart (Novolog Vial Sliding Scale -) 1 vial SQ [facility]; Protocol Last Admin: 03/05/19 22:49 Dose: Not Given Insulin Detemir (Levemir Vial) 25 units SQ HS [facility] Last Admin: 03/05/19 22:40 Dose: 25 units Levothyroxine Sodium (Synthroid -) 75 mcg PO AM [facility] Last Admin: 03/05/19 06:21 Dose: 75 mcg Magnesium Oxide (Mag-Ox -) 400 mg PO BID [facility] Last Admin: 03/05/19 22:37 Dose: 400 mg Metformin HCl (Glucophage -) 1,000 mg PO BIDAC [facility] Last Admin: 03/05/19 16:57 Dose: 1,000 mg Methylprednisolone Sodium Succinate (Solu-Medrol -) 40 mg IVPUSH DAILY [facility] Montelukast Sodium (Singulair -) 10 mg PO HS [facility] Last Admin: 03/05/19 22:37 Dose: 10 mg Pantoprazole Sodium (Protonix -) 20 mg PO BID [facility] Last Admin: 03/05/19 22:35 Dose: 20 mg Potassium Chloride (K-Dur -) 20 meq PO DAILY [facility] Last Admin: 03/05/19 10:29 Dose: 20 meq Ranolazine (Ranexa -) 500 mg PO BID [facility] Last Admin: 03/05/19 22:36 Dose: 500 mg [facility] Admin: 03/05/19 16:57 Dose: 100 mg - Objective Vital Signs: Vital Signs Temperature 98.1 F 03/05/19 22:00 Pulse Rate 94 H 03/05/19 22:00 Respiratory Rate 20 03/05/19 22:00 Blood Pressure 116/63 03/05/19 22:00 O2 Sat by Pulse Oximetry (%) 98 03/06/19 00:26 Constitutional: Yes: Obese Neck: Yes: WNL, Supple Cardiovascular: Yes: WNL, Regular Rate and Rhythm Respiratory: Yes: Wheezes Gastrointestinal: Yes: WNL, Normal Bowel Sounds, Soft, Abdomen, Obese Edema: No Labs: CBC, BMP 03/05/19 07:00 03/05/19 07:00 Problem List - Problems (1) Asthma exacerbation Assessment/Plan: Cont IV solumedrol and taper as possible Cont BIPAP Cont nebulizers/inhalers Pt still w/ some resp distress Code(s): J45.901 - UNSPECIFIED ASTHMA WITH (ACUTE) EXACERBATION Qualifiers: Asthma severity: moderate Asthma persistence: unspecified Qualified Code( s): J45.901 - Unspecified asthma with (acute) exacerbation (2) Acute on chronic systolic (congestive) heart failure Assessment/Plan: Cont lasix Monitor electrolytes Code(s): I50.23 - ACUTE ON CHRONIC SYSTOLIC (CONGESTIVE) HEART FAILURE (3) Diabetes Assessment/Plan: Cont sliding scale w/ coverage Cont levemir/metformin/januvia Code(s): E11.9 - TYPE 2 DIABETES MELLITUS WITHOUT COMPLICATIONS Qualifiers: Diabetes mellitus type: type 2 (4) Hypertension Assessment/Plan: BP stable Cont Coreg/norvasc Code(s): I10 - ESSENTIAL (PRIMARY) HYPERTENSION Qualifiers: Hypertension type: essential hypertension Qualified Code(s): I10 - Essential (primary) hypertension (5) Hyperlipidemia Assessment/Plan: Cont lipitor Code(s): E78.5 - HYPERLIPIDEMIA, UNSPECIFIED (6) Paroxysmal A-fib Assessment/Plan: Heart rate controlled Cont eliquis Code(s): I48.0 - PAROXYSMAL ATRIAL FIBRILLATION (7) Hypothyroidism Assessment/Plan: Cont levothyroxine Code(s): E03.9 - HYPOTHYROIDISM, UNSPECIFIED (8) Morbid obesity Code(s): E66.01 - MORBID (SEVERE) OBESITY DUE TO EXCESS CALORIES
[2019-03-06] MEDS: metFORMIN HCL 500 MG TABLET (FP) PO SCH ×2 (07:06→17:40)
[2019-03-06] MEDS: sitaGLIPtin PHOSPHATE 100 MG TABLET (FP) PO SCH ×2 (07:06→17:40)
[2019-03-06] MEDS: LEVOTHYROXINE NA 75 MCG TABLET (FP) PO SCH (07:06)
[2019-03-06] MEDS: FUROSEMIDE 40 MG/4 ML INJECTABLE VIAL IVPUSH SCH (07:07)
[2019-03-06] MEDS: INSULIN SLIDING SCALE (NOVOLOG) 1 VIAL SQ SCH ×4 (07:07→21:41)
[2019-03-06] MEDS: DOCUSATE SODIUM 100 MG CAPSULE (FP) PO SCH ×3 (07:07→21:40)
[2019-03-06] MEDS: POTASSIUM CHLORIDE TABS 20 MEQ TABLET.ER (FP) PO SCH (09:04)
[2019-03-06] MEDS: GABAPENTIN 300 MG CAPSULE (FP) PO SCH ×2 (09:04→21:40)
[2019-03-06] MEDS: amLODIPine BESYLATE 5 MG TABLET (FP) PO SCH (09:04)
[2019-03-06] MEDS: MAGNESIUM OXIDE 400 MG TABLET (FP) PO SCH ×2 (09:04→21:44)
[2019-03-06] MEDS: PANTOPRAZOLE 20 MG TABLET (FP) PO SCH ×2 (09:05→21:44)
[2019-03-06] MEDS: DULoxetine HCL 30 MG CAPSULE.DR (FP) PO SCH ×2 (09:05→21:41)
[2019-03-06] MEDS: RANOLAZINE E.R. 500 MG TABLET (FP) PO SCH ×2 (09:05→21:44)
[2019-03-06] MEDS: methylPREDNISolone NA SUCC 40 MG/1 ML VIAL IVPUSH SCH (09:06)
[2019-03-06] MEDS: CARVEDILOL 12.5 MG TABLET (FP) PO SCH ×2 (09:06→21:40)
[2019-03-06] MEDS: BUDESONIDE/FORMETEROL FUMARATE 160/4.5 mcg INHALER IH SCH (09:10)
[2019-03-06] MEDS: APIXABAN 5 MG TABLET PO SCH ×2 (09:10→21:40)
--- NOTE | 2019-03-06 10:22 | PN ---
Progress Note (short form) - Note Progress Note: s: no cp palps dizzy; sob improving o: Vital Signs Period Temp Pulse Resp BP Sys/Mcgrath Pulse Ox Last 24 Hr 97.3 F-98.3 F 90-94 16-20 94-116/54-69 93-98 Constitutional: Yes: No Distress Eyes: Yes: Conjunctiva Clear HENT: Yes: Atraumatic, Normocephalic Neck: Yes: Trachea Midline Respiratory: Yes: cta bl nl eff Gastrointestinal: Yes: Soft, Abdomen, Obese (obese,NT) Cardiovascular: Yes: Regular Rate and Rhythm Heart Sounds: Yes: S1, S2 (RRR, no murmurs) Edema: no Peripheral Pulses WNL: Yes Neurological: Yes: Alert, Oriented Current Medications Generic Name Dose Route Start Last Admin Trade Name Freq PRN Reason Stop Dose Admin Albuterol/Ipratropium 1 amp 03/03/19 14:08 03/05/19 21:45 Duoneb - NEB 1 amp Q6H PRN Administration SHORTNESS OF BREATH Amlodipine Besylate 5 mg 03/04/19 10:00 03/06/19 09:04 Norvasc - PO 5 mg DAILY [facility] Administration Apixaban 5 mg 03/03/19 22:00 03/06/19 09:10 Eliquis - PO 5 mg BID DOM Administration Atorvastatin Calcium 40 mg 03/03/19 22:00 03/05/19 22:36 Lipitor - PO 40 mg HS DOM Administration Budesonide/Formoterol Fumarate 2 puff 03/03/19 14:15 03/06/19 09:10 Symbicort 160/4.5mcg - IH 2 puff DAILY [facility] Administration Carvedilol 12.5 mg 03/03/19 22:00 03/06/19 09:06 Coreg - PO 12.5 mg BID DOM Administration Docusate Sodium 100 mg 03/04/19 22:00 03/06/19 07:07 Colace - PO 100 mg TID DOM Administration Duloxetine HCl 30 mg 03/03/19 22:00 03/06/19 09:05 Cymbalta - PO 30 mg BID DOM Administration Furosemide 40 mg 03/06/19 14:00 Lasix - PO BID@0600,1400 [facility] Gabapentin 300 mg 03/03/19 22:00 03/06/19 09:04 Neurontin - PO 300 mg BID [facility] Administration Insulin Aspart 1 vial 03/03/19 16:30 03/06/19 07:07 Novolog Vial Sliding Scale - SQ Not Given ACHS [facility] Protocol Insulin Detemir 25 units 03/03/19 22:00 03/05/19 22:40 Levemir Vial SQ 25 units HS [facility] Administration Levothyroxine Sodium 75 mcg 03/04/19 07:00 03/06/19 07:06 Synthroid - PO 75 mcg AM [facility] Administration Magnesium Oxide 400 mg 03/03/19 22:00 03/06/19 09:04 Mag-Ox - PO 400 mg BID [facility] Administration Metformin HCl 1,000 mg 03/03/19 16:30 03/06/19 07:06 Glucophage - PO 1,000 mg BIDAC [facility] Administration Methylprednisolone Sodium Succinate 40 mg 03/06/19 10:00 03/06/19 09:06 Solu-Medrol - IVPUSH 40 mg DAILY [facility] Administration Montelukast Sodium 10 mg 03/03/19 22:00 03/05/19 22:37 Singulair - PO 10 mg HS [facility] Administration Pantoprazole Sodium 20 mg 03/03/19 22:00 03/06/19 09:05 Protonix - PO 20 mg BID [facility] Administration Potassium Chloride 20 meq 03/04/19 10:00 03/06/19 09:04 K-Dur - PO 20 meq DAILY [facility] Administration Ranolazine 500 mg 03/03/19 22:00 03/06/19 09:05 Ranexa - PO 500 mg BID [facility] Administration Sitagliptin Phosphate 100 mg 03/03/19 16:30 03/06/19 07:06 Januvia - PO 100 mg BIDAC [facility] Administration CBC, BMP 03/05/19 07:00 03/05/19 07:00 Echo: Report Reviewed ( Office May 2018--> moderately reduced LVEF, No sig valve disease.) Prior Cardiac Procedures: Cardiac Catheterization (non-obstructive CAD) echo 03/2019: lve, sev dec lvef, global hk, vamsi, rv tds, no sig valve path CXR: new congestive changes tele: sr EKG: sinus, LBBB a/p: asthma exacerbation - on steroids - manage per pulm Elevated troponin - flat trend, indeterminate range, likely demand, not c/w ACS - EKG with LBBB new compared to prior, no chest pain Chronic systolic CHF: -mild congestion on CXR -Continue Entresto, Coreg -echo in office 05/2018 with improved LV fx now moderately reduced, repeat echo here with sev reduced lvef, would recheck as outpt when acute issues resolve -Routine office interrogation of ICD as outpatient -03/06: vol status improved, seems at baseline, will change to po lasix now Chronic HTN: -cont home meds paroxysmal afib - cont demi felipe DM: -manage per primary HLD - cont statin
--- NOTE | 2019-03-06 11:23 | PN ---
Progress Note, Physician History of Present Illness: pulmonary alert,comfortable,-resp distress - Current Medication List Current Medications: Active Medications Albuterol/Ipratropium (Duoneb -) 1 amp NEB Q6H PRN PRN Reason: SHORTNESS OF BREATH Last Admin: 03/05/19 21:45 Dose: 1 amp Amlodipine Besylate (Norvasc -) 5 mg PO DAILY [facility] Last Admin: 03/06/19 09:04 Dose: 5 mg Apixaban (Eliquis -) 5 mg PO BID [facility] Last Admin: 03/06/19 09:10 Dose: 5 mg Atorvastatin Calcium (Lipitor -) 40 mg PO HS [facility] Last Admin: 03/05/19 22:36 Dose: 40 mg Budesonide/Formoterol Fumarate (Symbicort 160/4.5mcg -) 2 puff IH DAILY [facility] Last Admin: 03/06/19 09:10 Dose: 2 puff Carvedilol (Coreg -) 12.5 mg PO BID [facility] Last Admin: 03/06/19 09:06 Dose: 12.5 mg Docusate Sodium (Colace -) 100 mg PO TID [facility] Last Admin: 03/06/19 07:07 Dose: 100 mg Duloxetine HCl (Cymbalta -) 30 mg PO BID [facility] Last Admin: 03/06/19 09:05 Dose: 30 mg Furosemide (Lasix -) 40 mg PO BID@0600,1400 [facility] Gabapentin (Neurontin -) 300 mg PO BID [facility] Last Admin: 03/06/19 09:04 Dose: 300 mg Insulin Aspart (Novolog Vial Sliding Scale -) 1 vial SQ [facility]; Protocol Last Admin: 03/06/19 11:10 Dose: 2 unit Insulin Detemir (Levemir Vial) [address] [facility] Last Admin: 03/05/19 22:40 Dose: 25 units Levothyroxine Sodium (Synthroid -) 75 mcg PO AM [facility] Last Admin: 03/06/19 07:06 Dose: 75 mcg Magnesium Oxide (Mag-Ox -) 400 mg PO BID [facility] Last Admin: 03/06/19 09:04 Dose: 400 mg Metformin HCl (Glucophage -) 1,000 mg PO BIDAC [facility] Last Admin: 03/06/19 07:06 Dose: 1,000 mg Methylprednisolone Sodium Succinate (Solu-Medrol -) 40 mg IVPUSH DAILY [facility] Last Admin: 03/06/19 09:06 Dose: 40 mg Montelukast Sodium (Singulair -) 10 mg PO HS [facility] Last Admin: 03/05/19 22:37 Dose: 10 mg Pantoprazole Sodium (Protonix -) 20 mg PO BID [facility] Last Admin: 03/06/19 09:05 Dose: 20 mg Potassium Chloride (K-Dur -) 20 meq PO DAILY [facility] Last Admin: 03/06/19 09:04 Dose: 20 meq Ranolazine (Ranexa -) 500 mg PO BID [facility] Last Admin: 03/06/19 09:05 Dose: 500 mg Sitagliptin Phosphate (Januvia -) 100 mg PO BIDAC [facility] Last Admin: 03/06/19 07:06 Dose: 100 mg - Objective Vital Signs: Vital Signs Temperature 97.3 F L 03/06/19 02:00 Pulse Rate 90 03/06/19 02:00 Respiratory Rate 20 03/06/19 02:00 Blood Pressure 94/69 03/06/19 02:00 O2 Sat by Pulse Oximetry (%) 93 L 03/06/19 08:30 Constitutional: Yes: Well Nourished, Calm Eyes: Yes: WNL HENT: Yes: WNL Neck: Yes: WNL Cardiovascular: Yes: Regular Rate and Rhythm, S1, S2 Respiratory: Yes: Diminished Gastrointestinal: Yes: Normal Bowel Sounds, Soft Extremities: Yes: WNL Edema: Yes Labs: CBC, BMP Problem List - Problems (1) CHF exacerbation Code(s): I50.9 - HEART FAILURE, UNSPECIFIED Qualifiers: Heart failure type: unspecified Qualified Code(s): I50.9 - Heart failure, unspecified (2) Diabetes Code(s): E11.9 - TYPE 2 DIABETES MELLITUS WITHOUT COMPLICATIONS Qualifiers: Diabetes mellitus type: type 2 (3) Hyperlipidemia Code(s): E78.5 - HYPERLIPIDEMIA, UNSPECIFIED (4) Hypertension Code(s): I10 - ESSENTIAL (PRIMARY) HYPERTENSION Qualifiers: Hypertension type: essential hypertension Qualified Code(s): I10 - Essential (primary) hypertension (5) ICD (implantable cardioverter-defibrillator) in place Code(s): Z95.810 - PRESENCE OF AUTOMATIC (IMPLANTABLE) CARDIAC DEFIBRILLATOR (6) Morbid obesity Code(s): E66.01 - MORBID (SEVERE) OBESITY DUE TO EXCESS CALORIES (7) Cardiomyopathy Code(s): I42.9 - CARDIOMYOPATHY, UNSPECIFIED (8) Acute on chronic systolic and diastolic heart failure, NYHA class 3 Code(s): I50.43 - ACUTE ON CHRONIC COMBINED SYSTOLIC AND DIASTOLIC HRT FAIL (9) Acute respiratory distress Code(s): R06.03 - ACUTE RESPIRATORY DISTRESS Assessment/Plan IMP ACUTE RESPIRATORY DISTRESS IMPROVED ACUTE ON CHRONIC CHF IMPROVING NON-ISCHEMIC CARDIOMYOPATHY S/P ICD WITH SEVERE GLOBAL HYPOKINESIA , SEVERE LV SYSTOLIC DYSFUNCTION H/O ASTHMA OSAS MORBID OBESITY DM HTN + TROPONIN PLAN LASIX INHALED BRONCHODILATORS MEDROL TAPER STRICT I+Os DAILY WT F/U CHEST X-RAYS BIPAP AT NIGHT AND PRN DR GANN Problem List - Problems (1) CHF exacerbation Code(s): I50.9 - HEART FAILURE, UNSPECIFIED Qualifiers: Heart failure type: unspecified Qualified Code(s): I50.9 - Heart failure, unspecified (2) Diabetes Code(s): E11.9 - TYPE 2 DIABETES MELLITUS WITHOUT COMPLICATIONS Qualifiers: Diabetes mellitus type: type 2 (3) Hyperlipidemia Code(s): E78.5 - HYPERLIPIDEMIA, UNSPECIFIED (4) Hypertension Code(s): I10 - ESSENTIAL (PRIMARY) HYPERTENSION Qualifiers: Hypertension type: essential hypertension Qualified Code(s): I10 - Essential (primary) hypertension (5) ICD (implantable cardioverter-defibrillator) in place Code(s): Z95.810 - PRESENCE OF AUTOMATIC (IMPLANTABLE) CARDIAC DEFIBRILLATOR (6) Morbid obesity Code(s): E66.01 - MORBID (SEVERE) OBESITY DUE TO EXCESS CALORIES (7) Cardiomyopathy Code(s): I42.9 - CARDIOMYOPATHY, UNSPECIFIED (8) Acute on chronic systolic and diastolic heart failure, NYHA class 3 Code(s): I50.43 - ACUTE ON CHRONIC COMBINED SYSTOLIC AND DIASTOLIC HRT FAIL (9) Acute respiratory distress Code(s): R06.03 - ACUTE RESPIRATORY DISTRESS
[2019-03-06] MEDS: FUROSEMIDE 40 MG TABLET (FP) PO SCH (14:24)
[2019-03-06] MEDS: ALBUTEROL SO4 2.5/IPRATROPIUM 0.5 INH SOL 3 ML VIAL.NEB. NEB PRN (19:35)
--- NOTE | 2019-03-06 21:25 | PN ---
Progress Note, Physician History of Present Illness: No new complaints - Current Medication List Current Medications: Active Medications Albuterol/Ipratropium (Duoneb -) 1 amp NEB Q6H PRN PRN Reason: SHORTNESS OF BREATH Last Admin: 03/05/19 21:45 Dose: 1 amp Amlodipine Besylate (Norvasc -) 5 mg PO DAILY [facility] Last Admin: 03/06/19 09:04 Dose: 5 mg Apixaban (Eliquis -) 5 mg PO BID [facility] Last Admin: 03/06/19 09:10 Dose: 5 mg Atorvastatin Calcium (Lipitor -) 40 mg PO HS [facility] Last Admin: 03/05/19 22:36 Dose: 40 mg Budesonide/Formoterol Fumarate (Symbicort 160/4.5mcg -) 2 puff IH DAILY [facility] Last Admin: 03/06/19 09:10 Dose: 2 puff Carvedilol (Coreg -) 12.5 mg PO BID [facility] Last Admin: 03/06/19 09:06 Dose: 12.5 mg Docusate Sodium (Colace -) 100 mg PO TID [facility] Last Admin: 03/06/19 14:24 Dose: 100 mg Duloxetine HCl (Cymbalta -) 30 mg PO BID [facility] Last Admin: 03/06/19 09:05 Dose: 30 mg Furosemide (Lasix -) 40 mg PO BID@0600,1400 [facility] Last Admin: 03/06/19 14:24 Dose: 40 mg Gabapentin (Neurontin -) 300 mg PO BID [facility] Last Admin: 03/06/19 09:04 Dose: 300 mg Insulin Aspart (Novolog Vial Sliding Scale -) 1 vial SQ [facility]; Protocol Last Admin: 03/06/19 17:37 Dose: 2 unit Insulin Detemir (Levemir Vial) 25 units SQ [facility] Last Admin: 03/05/19 22:40 Dose: 25 units Levothyroxine Sodium (Synthroid -) 75 mcg PO AM [facility] Last Admin: 03/06/19 07:06 Dose: 75 mcg Magnesium Oxide (Mag-Ox -) 400 mg PO BID [facility] Last Admin: 03/06/19 09:04 Dose: 400 mg Metformin HCl (Glucophage -) 1,000 mg PO BIDAC [facility] Last Admin: 03/06/19 17:40 Dose: 1,000 mg Methylprednisolone Sodium Succinate (Solu-Medrol -) 40 mg IVPUSH DAILY [facility] Last Admin: 03/06/19 09:06 Dose: 40 mg Montelukast Sodium (Singulair -) 10 mg PO HS [facility] Last Admin: 03/05/19 22:37 Dose: 10 mg Pantoprazole Sodium (Protonix -) 20 mg PO BID [facility] Last Admin: 03/06/19 09:05 Dose: 20 mg Potassium Chloride (K-Dur -) 20 meq PO DAILY [facility] Last Admin: 03/06/19 09:04 Dose: 20 meq Ranolazine (Ranexa -) 500 mg PO BID [facility] Last Admin: 03/06/19 09:05 Dose: 500 mg Sitagliptin Phosphate (Januvia -) 100 mg PO BIDAC [facility] Last Admin: 03/06/19 17:40 Dose: 100 mg - Objective Vital Signs: Vital Signs Temperature 98.7 F 03/06/19 18:00 Pulse Rate 84 03/06/19 18:00 Respiratory Rate 18 03/06/19 18:00 Blood Pressure 124/74 03/06/19 18:00 O2 Sat by Pulse Oximetry (%) 95 03/06/19 17:30 Constitutional: Yes: Obese Neck: Yes: WNL, Supple Cardiovascular: Yes: WNL, Regular Rate and Rhythm Respiratory: Yes: Wheezes Gastrointestinal: Yes: WNL, Normal Bowel Sounds, Soft, Abdomen, Obese Edema: No Labs: CBC, BMP 03/05/19 07:00 03/05/19 07:00 Problem List - Problems (1) Asthma exacerbation Assessment/Plan: Cont IV solumedrol and taper as possible Cont BIPAP Cont nebulizers/inhalers Pt still w/ some resp distress Code(s): J45.901 - UNSPECIFIED ASTHMA WITH (ACUTE) EXACERBATION Qualifiers: Asthma severity: moderate Asthma persistence: unspecified Qualified Code( s): J45.901 - Unspecified asthma with (acute) exacerbation (2) Acute on chronic systolic (congestive) heart failure Assessment/Plan: Cont PO lasix Monitor electrolytes Code(s): I50.23 - ACUTE ON CHRONIC SYSTOLIC (CONGESTIVE) HEART FAILURE (3) Diabetes Assessment/Plan: Cont sliding scale w/ coverage Cont levemir/metformin/januvia Code(s): E11.9 - TYPE 2 DIABETES MELLITUS WITHOUT COMPLICATIONS Qualifiers: Diabetes mellitus type: type 2 (4) Hypertension Assessment/Plan: BP stable Cont Coreg/norvasc Code(s): I10 - ESSENTIAL (PRIMARY) HYPERTENSION Qualifiers: Hypertension type: essential hypertension Qualified Code(s): I10 - Essential (primary) hypertension (5) Hyperlipidemia Assessment/Plan: Cont lipitor Code(s): E78.5 - HYPERLIPIDEMIA, UNSPECIFIED (6) Paroxysmal A-fib Assessment/Plan: Heart rate controlled Cont eliquis Code(s): I48.0 - PAROXYSMAL ATRIAL FIBRILLATION (7) Hypothyroidism Assessment/Plan: Cont levothyroxine Code(s): E03.9 - HYPOTHYROIDISM, UNSPECIFIED (8) Morbid obesity Code(s): E66.01 - MORBID (SEVERE) OBESITY DUE TO EXCESS CALORIES
[2019-03-06] MEDS: ATORVASTATIN CA 40 MG TABLET (FP) PO SCH (21:40)
[2019-03-06] MEDS: INSULIN (LEVEMIR) 100 UNITS/ML UNITS SQ SCH (21:40)
[2019-03-06] MEDS: MONTELUKAST NA 10 MG TABLET PO SCH (21:44)
[2019-03-07] MEDS: sitaGLIPtin PHOSPHATE 100 MG TABLET (FP) PO SCH ×2 (06:33→16:59)
[2019-03-07] MEDS: DOCUSATE SODIUM 100 MG CAPSULE (FP) PO SCH ×3 (06:33→21:41)
[2019-03-07] MEDS: LEVOTHYROXINE NA 75 MCG TABLET (FP) PO SCH (06:33)
[2019-03-07] MEDS: INSULIN SLIDING SCALE (NOVOLOG) 1 VIAL SQ SCH ×4 (06:33→21:56)
[2019-03-07] MEDS: metFORMIN HCL 500 MG TABLET (FP) PO SCH ×2 (06:33→16:59)
[2019-03-07] MEDS: FUROSEMIDE 40 MG TABLET (FP) PO SCH ×2 (06:33→13:46)
[2019-03-07] MEDS ORDERED: PT OWN MED DRAWER 7, Y5N ONE (09:43)
[2019-03-07] MEDS: amLODIPine BESYLATE 5 MG TABLET (FP) PO SCH (09:49)
[2019-03-07] MEDS: APIXABAN 5 MG TABLET PO SCH ×2 (09:49→21:51)
[2019-03-07] MEDS: RANOLAZINE E.R. 500 MG TABLET (FP) PO SCH ×2 (09:49→21:51)
[2019-03-07] MEDS: methylPREDNISolone NA SUCC 40 MG/1 ML VIAL IVPUSH SCH (09:49)
[2019-03-07] MEDS: POTASSIUM CHLORIDE TABS 20 MEQ TABLET.ER (FP) PO SCH (09:49)
[2019-03-07] MEDS: MAGNESIUM OXIDE 400 MG TABLET (FP) PO SCH ×2 (09:49→21:51)
[2019-03-07] MEDS: GABAPENTIN 300 MG CAPSULE (FP) PO SCH ×2 (09:49→21:51)
[2019-03-07] MEDS: BUDESONIDE/FORMETEROL FUMARATE 160/4.5 mcg INHALER IH SCH (09:50)
[2019-03-07] MEDS: PANTOPRAZOLE 20 MG TABLET (FP) PO SCH ×2 (09:50→21:51)
[2019-03-07] MEDS: CARVEDILOL 12.5 MG TABLET (FP) PO SCH ×2 (09:50→21:51)
[2019-03-07] MEDS: DULoxetine HCL 30 MG CAPSULE.DR (FP) PO SCH ×2 (09:51→21:51)
--- NOTE | 2019-03-07 10:51 | PN ---
Progress Note (short form) - Note Progress Note: s: no cp palps dizzy; sob improving o: Vital Signs Period Temp Pulse Resp BP Sys/Mcgrath Pulse Ox Last 24 Hr 97.9 F-98.7 F 80-86 16-20 110-124/48-74 94-98 Constitutional: Yes: No Distress Eyes: Yes: Conjunctiva Clear HENT: Yes: Atraumatic, Normocephalic Neck: Yes: Trachea Midline Respiratory: Yes: cta bl nl eff Gastrointestinal: Yes: Soft, Abdomen, Obese (obese,NT) Cardiovascular: Yes: Regular Rate and Rhythm Heart Sounds: Yes: S1, S2 (RRR, no murmurs) Edema: no Peripheral Pulses WNL: Yes Neurological: Yes: Alert, Oriented Current Medications Generic Name Dose Route Start Last Admin Trade Name Freq PRN Reason Stop Dose Admin Albuterol/Ipratropium 1 amp 03/03/19 14:08 03/06/19 19:35 Duoneb - NEB 1 amp Q6H PRN Administration SHORTNESS OF BREATH Amlodipine Besylate 5 mg 03/04/19 10:00 03/07/19 09:49 Norvasc - PO 5 mg DAILY DOM Administration Apixaban 5 mg 03/03/19 22:00 03/07/19 09:49 Eliquis - PO 5 mg BID DOM Administration Atorvastatin Calcium 40 mg 03/03/19 22:00 03/06/19 21:40 Lipitor - PO 40 mg HS DOM Administration Budesonide/Formoterol Fumarate 2 puff 03/03/19 14:15 03/07/19 09:50 Symbicort 160/4.5mcg - IH 2 puff DAILY DOM Administration Carvedilol 12.5 mg 03/03/19 22:00 03/07/19 09:50 Coreg - PO 12.5 mg BID DOM Administration Docusate Sodium 100 mg 03/04/19 22:00 03/07/19 06:33 Colace - PO 100 mg TID DOM Administration Duloxetine HCl 30 mg 03/03/19 22:00 03/07/19 09:51 Cymbalta - PO 30 mg BID DOM Administration Furosemide 40 mg 03/06/19 14:00 03/07/19 06:33 Lasix - PO 40 mg BID@0600,1400 DOM Administration Gabapentin 300 mg 03/03/19 22:00 03/07/19 09:49 Neurontin - PO 300 mg BID DOM Administration Insulin Aspart 1 vial 03/03/19 16:30 03/07/19 06:33 Novolog Vial Sliding Scale - SQ Not Given [facility] Protocol Insulin Detemir 25 units 03/03/19 22:00 03/06/19 21:40 Levemir Vial SQ 25 units HS DOM Administration Levothyroxine Sodium 75 mcg 03/04/19 07:00 03/07/19 06:33 Synthroid - PO 75 mcg AM DOM Administration Magnesium Oxide 400 mg 03/03/19 22:00 03/07/19 09:49 Mag-Ox - PO 400 mg BID DOM Administration Metformin HCl 1,000 mg 03/03/19 16:30 03/07/19 06:33 Glucophage - PO 1,000 mg BIDAC DOM Administration Methylprednisolone Sodium Succinate 40 mg 03/06/19 10:00 03/07/19 09:49 Solu-Medrol - IVPUSH 40 mg DAILY DOM Administration Montelukast Sodium 10 mg 03/03/19 22:00 03/06/19 21:44 Singulair - PO 10 mg HS DOM Administration Pantoprazole Sodium 20 mg 03/03/19 22:00 03/07/19 09:50 Protonix - PO 20 mg BID DOM Administration Potassium Chloride 20 meq 03/04/19 10:00 03/07/19 09:49 K-Dur - PO 20 meq DAILY DOM Administration Ranolazine 500 mg 03/03/19 22:00 03/07/19 09:49 Ranexa - PO 500 mg BID DOM Administration Sitagliptin Phosphate 100 mg 03/03/19 16:30 03/07/19 06:33 Januvia - PO 100 mg BIDAC DOM Administration CBC, BMP 03/05/19 07:00 03/05/19 07:00 Echo: Report Reviewed ( Office May 2018--> moderately reduced LVEF, No sig valve disease.) Prior Cardiac Procedures: Cardiac Catheterization (non-obstructive CAD) echo 03/2019: lve, sev dec lvef, global hk, vamsi, rv tds, no sig valve path CXR: new congestive changes tele: sr EKG: sinus, LBBB a/p: asthma exacerbation - on steroids - manage per pulm Elevated troponin - flat trend, indeterminate range, likely demand, not c/w ACS - EKG with LBBB new compared to prior, no chest pain Chronic systolic CHF: -mild congestion on CXR -Continue Entresto, Coreg -echo in office 05/2018 with improved LV fx now moderately reduced, repeat echo here with sev reduced lvef, would recheck as outpt when acute issues resolve -Routine office interrogation of ICD as outpatient -03/06: vol status improved, seems at baseline, will change to po lasix now -03/07: cont po lasix Chronic HTN: -cont home meds paroxysmal afib - cont demi felipe DM: -manage per primary HLD - cont statin cardiac mendez stable
--- NOTE | 2019-03-07 10:59 | PN ---
Progress Note, Physician History of Present Illness: pulmonary alert,no distress,-sob,-cp - Current Medication List Current Medications: Active Medications Albuterol/Ipratropium (Duoneb -) 1 amp NEB Q6H PRN PRN Reason: SHORTNESS OF BREATH Last Admin: 03/06/19 19:35 Dose: 1 amp Amlodipine Besylate (Norvasc -) 5 mg PO DAILY [facility] Last Admin: 03/07/19 09:49 Dose: 5 mg Apixaban (Eliquis -) 5 mg PO BID [facility] Last Admin: 03/07/19 09:49 Dose: 5 mg Atorvastatin Calcium (Lipitor -) 40 mg PO HS [facility] Last Admin: 03/06/19 21:40 Dose: 40 mg Budesonide/Formoterol Fumarate (Symbicort 160/4.5mcg -) 2 puff IH DAILY [facility] Last Admin: 03/07/19 09:50 Dose: 2 puff Carvedilol (Coreg -) 12.5 mg PO BID [facility] Last Admin: 03/07/19 09:50 Dose: 12.5 mg Docusate Sodium (Colace -) 100 mg PO TID [facility] Last Admin: 03/07/19 06:33 Dose: 100 mg Duloxetine HCl (Cymbalta -) 30 mg PO BID [facility] Last Admin: 03/07/19 09:51 Dose: 30 mg Furosemide (Lasix -) 40 mg PO BID@0600,1400 [facility] Last Admin: 03/07/19 06:33 Dose: 40 mg Gabapentin (Neurontin -) 300 mg PO BID [facility] Last Admin: 03/07/19 09:49 Dose: 300 mg Insulin Aspart (Novolog Vial Sliding Scale -) 1 vial SQ [facility]; Protocol Last Admin: 03/07/19 06:33 Dose: Not Given Insulin Detemir (Levemir Vial) 25 units SQ [facility] Last Admin: 03/06/19 21:40 Dose: 25 units Levothyroxine Sodium (Synthroid -) 75 mcg PO AM [facility] Last Admin: 03/07/19 06:33 Dose: 75 mcg Magnesium Oxide (Mag-Ox -) 400 mg PO BID [facility] Last Admin: 03/07/19 09:49 Dose: 400 mg Metformin HCl (Glucophage -) 1,000 mg PO BIDAC [facility] Last Admin: 03/07/19 06:33 Dose: 1,000 mg Methylprednisolone Sodium Succinate (Solu-Medrol -) 40 mg IVPUSH DAILY [facility] Last Admin: 03/07/19 09:49 Dose: 40 mg Montelukast Sodium (Singulair -) 10 mg PO HS [facility] Last Admin: 03/06/19 21:44 Dose: 10 mg Pantoprazole Sodium (Protonix -) 20 mg PO BID [facility] Last Admin: 03/07/19 09:50 Dose: 20 mg Potassium Chloride (K-Dur -) 20 meq PO DAILY [facility] Last Admin: 03/07/19 09:49 Dose: 20 meq Ranolazine (Ranexa -) 500 mg PO BID [facility] Last Admin: 03/07/19 09:49 Dose: 500 mg Sitagliptin Phosphate (Januvia -) 100 mg PO BIDAC [facility] Last Admin: 03/07/19 06:33 Dose: 100 mg - Objective Vital Signs: Vital Signs Temperature 97.9 F 03/07/19 02:00 Pulse Rate 80 03/07/19 02:00 Respiratory Rate 20 03/07/19 02:00 Blood Pressure 112/67 03/07/19 02:00 O2 Sat by Pulse Oximetry (%) 98 03/07/19 04:26 Constitutional: Yes: Well Nourished, Calm, Obese Eyes: Yes: WNL HENT: Yes: WNL Neck: Yes: WNL Cardiovascular: Yes: Regular Rate and Rhythm, S1, S2 Respiratory: Yes: CTA Bilaterally Gastrointestinal: Yes: Normal Bowel Sounds, Soft Extremities: Yes: WNL Edema: Yes Labs: Problem List - Problems (1) CHF exacerbation Code(s): I50.9 - HEART FAILURE, UNSPECIFIED Qualifiers: Heart failure type: unspecified Qualified Code(s): I50.9 - Heart failure, unspecified (2) Diabetes Code(s): E11.9 - TYPE 2 DIABETES MELLITUS WITHOUT COMPLICATIONS Qualifiers: Diabetes mellitus type: type 2 (3) Hyperlipidemia Code(s): E78.5 - HYPERLIPIDEMIA, UNSPECIFIED (4) Hypertension Code(s): I10 - ESSENTIAL (PRIMARY) HYPERTENSION Qualifiers: Hypertension type: essential hypertension Qualified Code(s): I10 - Essential (primary) hypertension (5) ICD (implantable cardioverter-defibrillator) in place Code(s): Z95.810 - PRESENCE OF AUTOMATIC (IMPLANTABLE) CARDIAC DEFIBRILLATOR (6) Morbid obesity Code(s): E66.01 - MORBID (SEVERE) OBESITY DUE TO EXCESS CALORIES (7) Cardiomyopathy Code(s): I42.9 - CARDIOMYOPATHY, UNSPECIFIED (8) Acute on chronic systolic and diastolic heart failure, NYHA class 3 Code(s): I50.43 - ACUTE ON CHRONIC COMBINED SYSTOLIC AND DIASTOLIC HRT FAIL (9) Acute respiratory distress Code(s): R06.03 - ACUTE RESPIRATORY DISTRESS Assessment/Plan IMP ACUTE RESPIRATORY DISTRESS IMPROVED ACUTE ON CHRONIC CHF IMPROVING NON-ISCHEMIC CARDIOMYOPATHY S/P ICD WITH SEVERE GLOBAL HYPOKINESIA , SEVERE LV SYSTOLIC DYSFUNCTION H/O ASTHMA OSAS MORBID OBESITY DM HTN + TROPONIN PLAN LASIX INHALED BRONCHODILATORS D/C MEDROL STRICT I+Os DAILY WT F/U CHEST X-RAYS BIPAP AT NIGHT AND PRN DR GANN Problem List - Problems (1) CHF exacerbation Code(s): I50.9 - HEART FAILURE, UNSPECIFIED Qualifiers: Heart failure type: unspecified Qualified Code(s): I50.9 - Heart failure, unspecified (2) Diabetes Code(s): E11.9 - TYPE 2 DIABETES MELLITUS WITHOUT COMPLICATIONS Qualifiers: Diabetes mellitus type: type 2 (3) Hyperlipidemia Code(s): E78.5 - HYPERLIPIDEMIA, UNSPECIFIED (4) Hypertension Code(s): I10 - ESSENTIAL (PRIMARY) HYPERTENSION Qualifiers: Hypertension type: essential hypertension Qualified Code(s): I10 - Essential (primary) hypertension (5) ICD (implantable cardioverter-defibrillator) in place Code(s): Z95.810 - PRESENCE OF AUTOMATIC (IMPLANTABLE) CARDIAC DEFIBRILLATOR (6) Morbid obesity Code(s): E66.01 - MORBID (SEVERE) OBESITY DUE TO EXCESS CALORIES (7) Cardiomyopathy Code(s): I42.9 - CARDIOMYOPATHY, UNSPECIFIED (8) Acute on chronic systolic and diastolic heart failure, NYHA class 3 Code(s): I50.43 - ACUTE ON CHRONIC COMBINED SYSTOLIC AND DIASTOLIC HRT FAIL (9) Acute respiratory distress Code(s): R06.03 - ACUTE RESPIRATORY DISTRESS
--- NOTE | 2019-03-07 19:42 | PN ---
Progress Note, Physician History of Present Illness: Pt needing BIPAP more today - Current Medication List Current Medications: Active Medications Albuterol/Ipratropium (Duoneb -) 1 amp NEB Q6H PRN PRN Reason: SHORTNESS OF BREATH Last Admin: 03/06/19 19:35 Dose: 1 amp Amlodipine Besylate (Norvasc -) 5 mg PO DAILY [facility] Last Admin: 03/07/19 09:49 Dose: 5 mg Apixaban (Eliquis -) 5 mg PO BID [facility] Last Admin: 03/07/19 09:49 Dose: 5 mg Atorvastatin Calcium (Lipitor -) 40 mg PO HS [facility] Last Admin: 03/06/19 21:40 Dose: 40 mg Budesonide/Formoterol Fumarate (Symbicort 160/4.5mcg -) 2 puff IH DAILY [facility] Last Admin: 03/07/19 09:50 Dose: 2 puff Carvedilol (Coreg -) 12.5 mg PO BID [facility] Last Admin: 03/07/19 09:50 Dose: 12.5 mg Docusate Sodium (Colace -) 100 mg PO TID [facility] Last Admin: 03/07/19 13:46 Dose: 100 mg Duloxetine HCl (Cymbalta -) 30 mg PO BID [facility] Last Admin: 03/07/19 09:51 Dose: 30 mg Furosemide (Lasix -) 40 mg PO BID@0600,1400 [facility] Last Admin: 03/07/19 13:46 Dose: 40 mg Gabapentin (Neurontin -) 300 mg PO BID [facility] Last Admin: 03/07/19 09:49 Dose: 300 mg Insulin Aspart (Novolog Vial Sliding Scale -) 1 vial SQ [facility]; Protocol Last Admin: 03/07/19 16:54 Dose: 4 unit Insulin Detemir (Levemir Vial) 25 units SQ HS [facility] Last Admin: 03/06/19 21:40 Dose: 25 units Levothyroxine Sodium (Synthroid -) 75 mcg PO AM [facility] Last Admin: 03/07/19 06:33 Dose: 75 mcg Magnesium Oxide (Mag-Ox -) 400 mg PO BID [facility] Last Admin: 03/07/19 09:49 Dose: 400 mg Metformin HCl (Glucophage -) 1,000 mg PO BIDAC [facility] Last Admin: 03/07/19 16:59 Dose: 1,000 mg Montelukast Sodium (Singulair -) 10 mg PO HS [facility] Last Admin: 03/06/19 21:44 Dose: 10 mg Pantoprazole Sodium (Protonix -) 20 mg PO BID [facility] Last Admin: 03/07/19 09:50 Dose: 20 mg Potassium Chloride (K-Dur -) 20 meq PO DAILY [facility] Last Admin: 03/07/19 09:49 Dose: 20 meq Ranolazine (Ranexa -) 500 mg PO BID [facility] Last Admin: 03/07/19 09:49 Dose: 500 mg Sitagliptin Phosphate (Januvia -) 100 mg PO BIDAC [facility] Last Admin: 03/07/19 16:59 Dose: 100 mg - Objective Vital Signs: Vital Signs Temperature 98.2 F 03/07/19 10:00 Pulse Rate 80 03/07/19 02:00 Respiratory Rate 20 03/07/19 10:00 Blood Pressure 107/58 L 03/07/19 10:00 O2 Sat by Pulse Oximetry (%) 96 03/07/19 15:35 Constitutional: Yes: Obese Cardiovascular: Yes: WNL, Regular Rate and Rhythm Respiratory: Yes: Diminished Gastrointestinal: Yes: WNL, Normal Bowel Sounds, Soft, Abdomen, Obese Edema: No Labs: CBC, BMP 03/05/19 07:00 03/05/19 07:00 Problem List - Problems (1) Asthma exacerbation Assessment/Plan: IV solumedrol dc'ed Will start on prednisone and monitor for resp distress Cont nebulizers/inhalers DC planning for am Code(s): J45.901 - UNSPECIFIED ASTHMA WITH (ACUTE) EXACERBATION Qualifiers: Asthma severity: moderate Asthma persistence: unspecified Qualified Code( s): J45.901 - Unspecified asthma with (acute) exacerbation (2) Acute on chronic systolic (congestive) heart failure Assessment/Plan: Cont PO lasix Monitor electrolytes Code(s): I50.23 - ACUTE ON CHRONIC SYSTOLIC (CONGESTIVE) HEART FAILURE (3) Diabetes Assessment/Plan: Cont sliding scale w/ coverage Cont levemir/metformin/januvia Code(s): E11.9 - TYPE 2 DIABETES MELLITUS WITHOUT COMPLICATIONS Qualifiers: Diabetes mellitus type: type 2 (4) Hypertension Assessment/Plan: BP stable Cont Coreg/norvasc Code(s): I10 - ESSENTIAL (PRIMARY) HYPERTENSION Qualifiers: Hypertension type: essential hypertension Qualified Code(s): I10 - Essential (primary) hypertension (5) Hyperlipidemia Assessment/Plan: Cont lipitor Code(s): E78.5 - HYPERLIPIDEMIA, UNSPECIFIED (6) Paroxysmal A-fib Assessment/Plan: Heart rate controlled Cont eliquis Code(s): I48.0 - PAROXYSMAL ATRIAL FIBRILLATION (7) Hypothyroidism Assessment/Plan: Cont levothyroxine Code(s): E03.9 - HYPOTHYROIDISM, UNSPECIFIED (8) Morbid obesity Code(s): E66.01 - MORBID (SEVERE) OBESITY DUE TO EXCESS CALORIES
[2019-03-07] MEDS: ALBUTEROL SO4 2.5/IPRATROPIUM 0.5 INH SOL 3 ML VIAL.NEB. NEB PRN (19:45)
[2019-03-07] MEDS: predniSONE 20 MG TABLET (UD) PO SCH (20:41)
[2019-03-07] MEDS: MONTELUKAST NA 10 MG TABLET PO SCH (21:51)
[2019-03-07] MEDS: ATORVASTATIN CA 40 MG TABLET (FP) PO SCH (21:51)
[2019-03-07] MEDS: INSULIN (LEVEMIR) 100 UNITS/ML UNITS SQ SCH (21:57)
[2019-03-08] MEDS: DOCUSATE SODIUM 100 MG CAPSULE (FP) PO SCH (06:14)
[2019-03-08] MEDS: LEVOTHYROXINE NA 75 MCG TABLET (FP) PO SCH (06:19)
[2019-03-08] MEDS: metFORMIN HCL 500 MG TABLET (FP) PO SCH (06:19)
[2019-03-08] MEDS: FUROSEMIDE 40 MG TABLET (FP) PO SCH (06:19)
[2019-03-08] MEDS: INSULIN SLIDING SCALE (NOVOLOG) 1 VIAL SQ SCH ×2 (06:19→11:34)
[2019-03-08] MEDS: sitaGLIPtin PHOSPHATE 100 MG TABLET (FP) PO SCH (06:19)
[2019-03-08 08:00] LABS: BASO % 0.1 % (0-2.0); EOS % 0.5 % (0-4.5); HEMOGLOBIN 11.9 GM/dL (10.7-15.3); LYMPH % 26.6 % (8-40); MCH 26.8 pg (25.7-33.7); MCHC 32.2 g/dl (32.0-36.0); MEAN CELL VOLUME 83.3 fl (80-96); MEAN PLT VOLUME 9.8 fl (7.5-11.1); NEUT % 64.8 % (42.8-82.8); PLATELET COUNT 257 K/MM3 (134-434); RBC 4.44 M/mm3 (3.60-5.2); RDW 16.9 % (11.6-15.6); WHITE BLOOD COUNT 12.2 K/mm3 (4.0-10.0)
[2019-03-08 08:24] LABS: ALBUMIN 3.4 g/dl (3.4-5.0); ALK PHOS 66 U/L (45-117); ANION GAP 6 MMOL/L (8-16); BILIRUBIN,TOTAL 0.4 mg/dL (0.2-1); BLOOD UREA NITROGEN 24 mg/dL (7-18); CHLORIDE 97 mmol/L (98-107); CO2 32 mmol/L (21-32); CREATININE 1.1 mg/dL (0.55-1.3); GLUCOSE,RANDOM 113 mg/dL (74-106); POTASSIUM 4.4 mmol/L (3.5-5.1); SGOT/AST 4 U/L (15-37); SGPT/ALT 12 U/L (13-61); SODIUM 135 mmol/L (136-145); TOT PROT 6.8 g/dl (6.4-8.2)
[2019-03-08] MEDS: predniSONE 20 MG TABLET (UD) PO SCH (09:12)
[2019-03-08] MEDS: RANOLAZINE E.R. 500 MG TABLET (FP) PO SCH (09:12)
[2019-03-08] MEDS: POTASSIUM CHLORIDE TABS 20 MEQ TABLET.ER (FP) PO SCH (09:13)
[2019-03-08] MEDS: PANTOPRAZOLE 20 MG TABLET (FP) PO SCH (09:13)
[2019-03-08] MEDS: CARVEDILOL 12.5 MG TABLET (FP) PO SCH (09:13)
[2019-03-08] MEDS: DULoxetine HCL 30 MG CAPSULE.DR (FP) PO SCH (09:13)
[2019-03-08] MEDS: GABAPENTIN 300 MG CAPSULE (FP) PO SCH (09:13)
[2019-03-08] MEDS: amLODIPine BESYLATE 5 MG TABLET (FP) PO SCH (09:13)
[2019-03-08] MEDS: MAGNESIUM OXIDE 400 MG TABLET (FP) PO SCH (09:13)
[2019-03-08] MEDS: BUDESONIDE/FORMETEROL FUMARATE 160/4.5 mcg INHALER IH SCH (09:17)
[2019-03-08] MEDS: APIXABAN 5 MG TABLET PO SCH (09:17)
[2019-03-08 09:22] VITALS: BP 120/65; PULSE 76; TEMP 98.1
--- NOTE | 2019-03-08 12:01 | PN ---
Progress Note, Physician History of Present Illness: PULMONARY ALERT,NO DISTRESS,-CP,-SOB,-COUGH - Current Medication List Current Medications: Active Medications Albuterol/Ipratropium (Duoneb -) 1 amp NEB Q6H PRN PRN Reason: SHORTNESS OF BREATH Last Admin: 03/07/19 19:45 Dose: 1 amp Amlodipine Besylate (Norvasc -) 5 mg PO DAILY [facility] Last Admin: 03/08/19 09:13 Dose: 5 mg Apixaban (Eliquis -) 5 mg PO BID [facility] Last Admin: 03/08/19 09:17 Dose: 5 mg Atorvastatin Calcium (Lipitor -) 40 mg PO HS [facility] Last Admin: 03/07/19 21:51 Dose: 40 mg Budesonide/Formoterol Fumarate (Symbicort 160/4.5mcg -) 2 puff IH DAILY [facility] Last Admin: 03/08/19 09:17 Dose: 2 puff Carvedilol (Coreg -) 12.5 mg PO BID [facility] Last Admin: 03/08/19 09:13 Dose: 12.5 mg Docusate Sodium (Colace -) 100 mg PO TID [facility] Last Admin: 03/08/19 06:14 Dose: Not Given Duloxetine HCl (Cymbalta -) 30 mg PO BID [facility] Last Admin: 03/08/19 09:13 Dose: 30 mg Furosemide (Lasix -) 40 mg PO BID@0600,1400 [facility] Last Admin: 03/08/19 06:19 Dose: 40 mg Gabapentin (Neurontin -) 300 mg PO BID [facility] Last Admin: 03/08/19 09:13 Dose: 300 mg Insulin Aspart (Novolog Vial Sliding Scale -) 1 vial SQ [facility]; Protocol Last Admin: 03/08/19 11:34 Dose: Not Given Insulin Detemir (Levemir Vial) 25 units SQ [facility] Last Admin: 03/07/19 21:57 Dose: Not Given Levothyroxine Sodium (Synthroid -) 75 mcg PO AM [facility] Last Admin: 03/08/19 06:19 Dose: 75 mcg Magnesium Oxide (Mag-Ox -) 400 mg PO BID [facility] Last Admin: 03/08/19 09:13 Dose: 400 mg Metformin HCl (Glucophage -) 1,000 mg PO BIDAC [facility] Last Admin: 03/08/19 06:19 Dose: 1,000 mg Montelukast Sodium (Singulair -) 10 mg PO HS [facility] Last Admin: 03/07/19 21:51 Dose: 10 mg Pantoprazole Sodium (Protonix -) 20 mg PO BID [facility] Last Admin: 03/08/19 09:13 Dose: 20 mg Potassium Chloride (K-Dur -) 20 meq PO DAILY [facility] Last Admin: 03/08/19 09:13 Dose: 20 meq Prednisone (Deltasone -) 40 mg PO DAILY [facility] Last Admin: 03/08/19 09:12 Dose: 40 mg Ranolazine (Ranexa -) 500 mg PO BID [facility] Last Admin: 03/08/19 09:12 Dose: 500 mg Sitagliptin Phosphate (Januvia -) 100 mg PO BIDAC [facility] Last Admin: 03/08/19 06:19 Dose: 100 mg - Objective Vital Signs: Vital Signs Temperature 98.1 F 03/08/19 09:20 Pulse Rate 76 03/08/19 09:20 Respiratory Rate 18 03/08/19 09:20 Blood Pressure 120/65 03/08/19 09:20 O2 Sat by Pulse Oximetry (%) 94 L 03/08/19 09:22 Constitutional: Yes: Well Nourished, Calm Eyes: Yes: WNL HENT: Yes: WNL Neck: Yes: WNL Cardiovascular: Yes: Regular Rate and Rhythm, S1, S2 Respiratory: Yes: Diminished Gastrointestinal: Yes: Normal Bowel Sounds, Soft Extremities: Yes: WNL Edema: Yes Labs: CBC, BMP 03/08/19 06:20 03/08/19 06:20 Problem List - Problems (1) CHF exacerbation Code(s): I50.9 - HEART FAILURE, UNSPECIFIED Qualifiers: Heart failure type: unspecified Qualified Code(s): I50.9 - Heart failure, unspecified (2) Diabetes Code(s): E11.9 - TYPE 2 DIABETES MELLITUS WITHOUT COMPLICATIONS Qualifiers: Diabetes mellitus type: type 2 (3) Hyperlipidemia Code(s): E78.5 - HYPERLIPIDEMIA, UNSPECIFIED (4) Hypertension Code(s): I10 - ESSENTIAL (PRIMARY) HYPERTENSION Qualifiers: Hypertension type: essential hypertension Qualified Code(s): I10 - Essential (primary) hypertension (5) ICD (implantable cardioverter-defibrillator) in place Code(s): Z95.810 - PRESENCE OF AUTOMATIC (IMPLANTABLE) CARDIAC DEFIBRILLATOR (6) Morbid obesity Code(s): E66.01 - MORBID (SEVERE) OBESITY DUE TO EXCESS CALORIES (7) Cardiomyopathy Code(s): I42.9 - CARDIOMYOPATHY, UNSPECIFIED (8) Acute on chronic systolic and diastolic heart failure, NYHA class 3 Code(s): I50.43 - ACUTE ON CHRONIC COMBINED SYSTOLIC AND DIASTOLIC HRT FAIL (9) Acute respiratory distress Code(s): R06.03 - ACUTE RESPIRATORY DISTRESS Assessment/Plan IMP ACUTE RESPIRATORY DISTRESS IMPROVED ACUTE ON CHRONIC CHF IMPROVED NON-ISCHEMIC CARDIOMYOPATHY S/P ICD WITH SEVERE GLOBAL HYPOKINESIA , SEVERE LV SYSTOLIC DYSFUNCTION H/O ASTHMA OSAS MORBID OBESITY DM HTN + TROPONIN PLAN LASIX INHALED BRONCHODILATORS F/U CHEST X-RAYS CPAP AT NIGHT OUTPATIENT F/U DR GANN Problem List - Problems (1) CHF exacerbation Code(s): I50.9 - HEART FAILURE, UNSPECIFIED Qualifiers: Heart failure type: unspecified Qualified Code(s): I50.9 - Heart failure, unspecified (2) Diabetes Code(s): E11.9 - TYPE 2 DIABETES MELLITUS WITHOUT COMPLICATIONS Qualifiers: Diabetes mellitus type: type 2 (3) Hyperlipidemia Code(s): E78.5 - HYPERLIPIDEMIA, UNSPECIFIED (4) Hypertension Code(s): I10 - ESSENTIAL (PRIMARY) HYPERTENSION Qualifiers: Hypertension type: essential hypertension Qualified Code(s): I10 - Essential (primary) hypertension (5) ICD (implantable cardioverter-defibrillator) in place Code(s): Z95.810 - PRESENCE OF AUTOMATIC (IMPLANTABLE) CARDIAC DEFIBRILLATOR (6) Morbid obesity Code(s): E66.01 - MORBID (SEVERE) OBESITY DUE TO EXCESS CALORIES (7) Cardiomyopathy Code(s): I42.9 - CARDIOMYOPATHY, UNSPECIFIED (8) Acute on chronic systolic and diastolic heart failure, NYHA class 3 Code(s): I50.43 - ACUTE ON CHRONIC COMBINED SYSTOLIC AND DIASTOLIC HRT FAIL (9) Acute respiratory distress Code(s): R06.03 - ACUTE RESPIRATORY DISTRESS
== END 2019-03-08 13:28 | disposition home or self-care (01) | DRG 292 ==
LOC: JER 21:22 → JERBED 03-03 03:34 → J4S 03-03 14:58
PROVIDERS: ADMIT Internal Medicine; ATTEND Internal Medicine
PROC: 3E0F7GC Introduction of Other Therapeutic Substance into Respiratory Tract, Via Natural or Artificial Opening (ICD-10-PCS; principal; 2019-03-02)
PROC: 5A09457 Assistance with Respiratory Ventilation, 24-96 Consecutive Hours, Continuous Positive Airway Pressure (ICD-10-PCS; 2019-03-04)
DX: I11.0 Hypertensive heart disease with heart failure (principal); J45.41 Moderate persistent asthma with (acute) exacerbation; Z68.41 Body mass index [BMI] 40.0-44.9, adult; I24.8 Other forms of acute ischemic heart disease; I50.23 Acute on chronic systolic (congestive) heart failure; E66.01 Morbid (severe) obesity due to excess calories; Z95.810 Presence of automatic (implantable) cardiac defibrillator; I25.2 Old myocardial infarction; E11.9 Type 2 diabetes mellitus without complications; Z79.4 Long term (current) use of insulin; E07.9 Disorder of thyroid, unspecified; Z79.01 Long term (current) use of anticoagulants; I42.9 Cardiomyopathy, unspecified; G47.30 Sleep apnea, unspecified; E03.9 Hypothyroidism, unspecified; Z96.652 Presence of left artificial knee joint; I48.0 Paroxysmal atrial fibrillation; Z79.84 Long term (current) use of oral hypoglycemic drugs
CPT/HCPCS: 36415; 71045-TC-FY; 80053; 82550; 82553; 82962; 83880; 84484; 85025; 85027; 85730; 93005; 93010; 93306-TC; 94640; 94660; 99284-25

== ENCOUNTER 2019-05-17 20:25 | Inpatient (IN) | payer BC, OTHER ==
--- NOTE | 2019-05-17 21:04 | PDOC ---
History of Present Illness - General Chief Complaint: Syncope/Near Syncope Stated Complaint: FAINTED Time Seen by Provider: 05/17/19 20:57 History Source: Patient - History of Present Illness Initial Comments: 05/17/19 21:04 HPI obtained from patient and PMH supplemented from EMR as patient is a poor historian with regards to her medical history The patient is a 59 year old female with a PMH of [place] x4 (s/p stent x2), AFib ( on Eliquis), Nonischemic cardiomyopathy with ICD, Asthma (multiple hospitalizations, childhood intubation), VAHID, CHF who presents to the ED c/o 3 episodes of syncope. The first episode occurred yesterday evening (patient cannot recall what time) when patient was walking from her bedroom to the bathroom. Patient does not know how long she was down; the second episodes occurred today in close succession, one while walking to the bathroom and then one shortly thereafter while walking to the living room. Endorses vertigo ( room spinning). No associated chest pain, lightheadedness, shortness of breath. No previous syncopal episodes. States she had an echocardiogram earlier in 2019 which was normal. Patient also states she was recently hospitalized at [facility] for asthma exacerbation. Allergy: as per EMR Surgical: B/L knee, B/L toe Social: lifetime non-smoker As per EMR, patient's echocardiogram in 03/2019 showed severely reduced LVEF and global hypokinesis of the LV Past History - Past Medical History Allergies/Adverse Reactions: Allergies Allergy/AdvReac Type Severity Reaction Status Date / Time tomato Allergy Mild Hives Verified 05/17/19 21:19 chlorpheniramine Allergy Verified 05/17/19 21:19 cimetidine Allergy Verified 05/17/19 21:19 codeine [Codeine] Allergy Verified 05/17/19 21:19 ibuprofen Allergy Verified 05/17/19 21:19 latex [Latex] Allergy Verified 05/17/19 21:19 Latex, Natural Rubber Allergy Verified 05/17/19 21:19 pseudoephedrine Allergy Verified 05/17/19 21:19 salmeterol xinafoate Allergy Verified 05/17/19 21:19 [From Advair Diskus] shellfish derived Allergy Verified 05/17/19 21:19 Sulfa (Sulfonamide Allergy Verified 05/17/19 21:19 Antibiotics) [Sulfa(Sulfonamide Antibiotics)] Chocolate Allergy Mild Hives Uncoded 05/17/19 21:19 shrimp Allergy Mild Hives Uncoded 05/17/19 21:19 Home Medications: Ambulatory Orders Atorvastatin Ca [Lipitor] 40 mg PO HS 08/09/16 Duloxetine HCl [Cymbalta] 30 mg PO BID 08/09/16 Insulin Glargine,Hum.rec.anlog [Lantus Solostar PEN -] 25 units SQ HS 08/09/16 Levothyroxine [Synthroid -] 75 mcg PO DAILY 08/09/16 Linaclotide [Linzess] 290 mcg PO DAILY 08/09/16 Montelukast Na [Singulair -] 10 mg PO HS 08/09/16 Albuterol Sulfate Inhaler - [Ventolin HFA Inhaler -] 1 - 2 inh PO Q4H PRN Amlodipine Besylate 5 mg PO DAILY 10/14/16 Budesonide/Formeterol Fumarate [SYMBICORT 160/4.5mcg -] 2 puff PO DAILY Linagliptin/Metformin HCl [Jentadueto 2.5 mg-1000 mg Tab] 290 mcg PO BID Albuterol 2.5/Ipratropium 0.5 [Duoneb -] 1 neb NEB Q4H #20 vial 06/08/18 Apixaban [Eliquis -] 5 mg PO BID 06/11/18 Cyclobenzaprine HCl [Flexeril -] 10 mg PO TID PRN 06/11/18 Loratadine 10 mg PO DAILY 06/11/18 Ranolazine [Ranexa -] 500 mg PO BID 06/11/18 Carvedilol [Coreg -] 12.5 mg PO BID #60 tablet 06/15/18 Gabapentin [Neurontin -] 300 mg PO BID capsule 06/15/18 Magnesium Oxide [Mag-Ox -] 400 mg PO BID #60 tablet 06/15/18 Potassium Chloride [K-Dur -] 20 meq PO DAILY #30 tablet.er 06/15/18 Albuterol 2.5/Ipratropium 0.5 [Duoneb -] 1 amp NEB Q6H PRN #90 amp 03/08/19 Docusate Sodium [Colace -] 100 mg PO TID #90 capsule 03/08/19 Furosemide [Lasix -] 40 mg PO BID@0600,1400 #60 tablet 03/08/19 Anemia: Yes Asthma: Yes Cancer: No Cardiac Disorders: Yes (OH X 2) CVA: No COPD: Yes CHF: Yes (S/P ICD) DVT: No Dementia: No Diabetes: Yes GI Disorders: Yes (PEPTIC ULCER) Disorders: No HTN: Yes Hypercholesterolemia: Yes Liver Disease: No Psychiatric Problems: Yes (DEPRESSION) Seizures: No Thyroid Disease: Yes - Surgical History Abdominal Surgery: No Appendectomy: No Cardiac Surgery: Yes (pacemaker and stents) Cholecystectomy: Yes Lung Surgery: No Neurologic Surgery: No Orthopedic Surgery: Yes (L. Knee) - Immunization History Immunization Up to Date: No - Suicide/Smoking/Psychosocial Hx Smoking Status: No Smoking History: Never smoked Have you smoked in the past 12 months: No Number of Cigarettes Smoked Daily: 0 Information on smoking cessation initiated: No Hx Alcohol Use: No Drug/Substance Use Hx: No Substance Use Type: None Hx Substance Use Treatment: No Review of Systems - Review of Systems Constitutional: No: Chills, Fever HEENTM: No: Recent change in vision Respiratory: No: Cough, Shortness of Breath Cardiac (ROS): Yes: Syncope. No: Chest Pain, Lightheadedness, Palpitations ABD/GI: No: Constipated, Diarrhea, Nausea, Vomiting *Physical Exam - Vital Signs Last Vital Signs Temp Pulse Resp BP Pulse Ox 98.2 F 92 H 16 90/52 L 97 05/17/19 20:41 05/17/19 20:41 05/17/19 20:41 05/17/19 20:41 05/17/19 20:41 - Physical Exam Comments: 05/17/19 22:28 General: awake, alert, NAD CV: S1, S2, RRR, no appreciable murmur on asculatation Respiratory: CLTA B/L Abdomen: soft, no TTP, (+) bowel sounds Neuro: A&O x3, CN II-XII intact Heart Score/ECG Review - ECG Impressions Comment:: 05/18/19 01:22 NSR HR 90, flattened T waves in V5-V6 - c/w previous EKG in EMR ED Treatment Course - LABORATORY CBC & Chemistry Diagram: 05/17/19 23:30 05/17/19 23:30 Medical Decision Making - Medical Decision Making 05/17/19 21:27 59 year old female with MMP including AFib, CHF, CAD s/p stenting presents 3 unwitnessed syncopal episode since yesterday, currently c/o vertiginous symptoms and headache. Hypotensive @ triage 90/52, repeat BP @ bedside 120/90. Will obtain Head CT to r/o posterior stroke. Also consider worsening CHF, arrhythmia, valvular abnormality. Cardiac Monitoring. Reassess. 05/17/19 22:01 EKG w/no acute ischemic changes as documented in EKG section of EMR 05/18/19 00:27 Multiple Attempts @ IV access; I obtained IV access using ultrasound 22 deacon needle in R antecubital fossa Head CT negative 05/18/19 00:28 05/18/19 00:47 Nursing staff reports IV not in place - suspect patient removed IV; Dr. Tyson obtained access using U/S - 20 deacon in L volar forearm 05/18/19 01:06 Cr 2.8 (previously 1.1 in 03/2019) Troponin elevated 0.09 (0.11 in 03/2019) - likely 2/2 to ischemic demand 05/18/19 01:10 At this time, we have ruled out medically emergent condition including posterior cerebellar stroke, unlikely to be ACS. Patient needs further cardiac evaluation including possibly 05/18/19 01:13 Case d/w Dr. Lewis (admits for patient's PMD Dr. Reece Lanza) - will admit to inpatient telemetry *DC/Admit/Observation/Transfer Diagnosis at time of Disposition: Syncope - Discharge Dispostion Condition at time of disposition: Fair Decision to Admit order: Yes - Referrals Referrals: Reece Lanza MD [Primary Care Provider] - - Patient Instructions - Post Discharge Activity
[2019-05-18] MEDS ORDERED: ACETAMINOPHEN 1000 MG/100 ML VIAL (NON FORMULARY) IVPB ONE (00:47)
[2019-05-18 00:52] LABS: BASO % 1.1 % (0-2.0); EOS % 1.4 % (0-4.5); HEMATOCRIT 40.4 % (32.4-45.2); HEMOGLOBIN 13.3 GM/dL (10.7-15.3); LYMPH % 33.9 % (8-40); MCH 27.6 pg (25.7-33.7); MCHC 32.9 g/dl (32.0-36.0); MEAN CELL VOLUME 83.6 fl (80-96); MEAN PLT VOLUME 10.2 fl (7.5-11.1); MONO % 10.3 % (3.8-10.2); NEUT % 53.3 % (42.8-82.8); PLATELET COUNT 191 K/MM3 (134-434); RBC 4.84 M/mm3 (3.60-5.2); RDW 17.5 % (11.6-15.6); WHITE BLOOD COUNT 9.3 K/mm3 (4.0-10.0)
[2019-05-18] MEDS ORDERED: ACETAMINOPHEN INJECTION 100 ML IVPB ONE (00:53)
[2019-05-18 01:02] LABS: ALBUMIN 3.8 g/dl (3.4-5.0); ALK PHOS 80 U/L (45-117); ANION GAP 13 MMOL/L (8-16); BILIRUBIN,TOTAL 0.4 mg/dL (0.2-1); BLOOD UREA NITROGEN 25.8 mg/dL (7-18); CALCIUM 9.1 mg/dL (8.5-10.1); CHLORIDE 95 mmol/L (98-107); CO2 24 mmol/L (21-32); CREATININE 2.8 mg/dL (0.55-1.3); GLUCOSE,RANDOM 140 mg/dL (74-106); N-TERMINAL BNP 124.7 pg/ml (5-125); POTASSIUM 4.1 mmol/L (3.5-5.1); SGOT/AST 21 U/L (15-37); SGPT/ALT 15 U/L (13-61); SODIUM 133 mmol/L (136-145); TOT PROT 7.3 g/dl (6.4-8.2)
--- NOTE | 2019-05-18 01:08 | PDOC ---
Documentation entered by Blaise Moran SCRIBE, acting as scribe for Letty Richards MD. Letty Richards MD: This documentation has been prepared by the Dean siegel Joel, SCRIBE, under my direction and personally reviewed by me in its entirety. I confirm that the documentation accurately reflects all work, treatment, procedures, and medical decision making performed by me. Attending Attestation - Resident Resident Name: Abdifatah Alexanderica - ED Attending Attestation I have performed the following: I have examined & evaluated the patient, The case was reviewed & discussed with the resident, I agree w/resident's findings & plan, Exceptions are as noted - HPI HPI: 05/17/19 21:44 The patient is a 59 year old female with a significant PMH of Afib (on Eliquis) , CAD (s/p 2x stents), CHF, COPD, asthma, & nonischemic cardiomyopathy (ICD placed) who presents to the emergency department for evaluation of syncope. Patient states yesterday she got up from bed to go to the bathroom and her vision began to go dark, hitting her head on the toilet. She reports today she passed out again at about 3-4PM on the way to the kitchen, and once more in the living room onto her couch. She notes associated vertigo with her syncope. The patient is unable to state how long each episode lasted. She denies difficulty ambulating after the episodes. The patient denies prior history of syncope. The patient also notes diffuse muscle spasms throughout her body that feel like her muscles are 'locking up'. The patient denies chest pain, shortness of breath & headache. Denies fever, chills, nausea, vomit, diarrhea and constipation. Denies dysuria, frequency, urgency and hematuria. Allergies: Chlorpheniramine, Cimetidine, Codeine, Ibuprofen, Latex, Pseudoephedrine, Salmeterol xinafoate, Sulfonamide Past surgical history: ICD & stent placements. Cholecystectomy, L. knee surgery. Social history: No reported cigarette, alcohol, or drug use. PCP: Dr. Reece Lanza - Physicial Exam PE: 05/17/19 23:27 GENERAL: (+) Morbid obesity. Awake, alert, and fully oriented, in no acute distress HEAD: No signs of trauma EYES: PERRLA, EOMI, sclera anicteric, conjunctiva clear ENT: Auricles normal inspection, hearing grossly normal, nares patent, oropharynx clear without exudates. Moist mucosa NECK: Normal ROM, supple, no lymphadenopathy, JVD, or masses LUNGS: Breath sounds equal, clear to auscultation bilaterally. No wheezes, and no crackles HEART: Regular rate and rhythm, normal S1 and S2, no murmurs, rubs or gallops ABDOMEN: Soft, nontender, normoactive bowel sounds. No guarding, no rebound. No masses EXTREMITIES: Normal range of motion, no edema. No clubbing or cyanosis. No cords, erythema, or tenderness NEUROLOGICAL: Cranial nerves II through XII grossly intact. Normal speech, normal gait SKIN: Warm, Dry, normal turgor, no rashes or lesions noted. - Medical Decision Making 05/18/19 00:39 59 yo female with complex PMH including CAD,CABG,IN,cad stents,DM,HTN came to the Ed because she states she had fainted 3 times in past [address] SCAN no acute intracranial pathology cxr napd,PPM troponin=0.09 and will be trended creatinine hs increased from 1.1 in March 2019 to 2.8 today repeat OV=733/90 05/18/19 00:43 Pt to be admitted to telemetry for syncopal w/u 05/18/19 01:07
[2019-05-18] MEDS ORDERED: ALBUTEROL SO4 2.5/IPRATROPIUM 0.5 INH SOL 3 ML VIAL.NEB. NEB PRN (02:25)
[2019-05-18] MEDS: SODIUM CHLORIDE 0.45% 1,000 ML IV SCH (03:02)
[2019-05-18 05:51] LABS: HEMOGLOBIN 12.9 GM/dL (10.7-15.3); WHITE BLOOD COUNT 7.8 K/mm3 (4.0-10.0)
[2019-05-18 05:55] LABS: EOS % 1.4 % (0-4.5); HEMATOCRIT 39.3 % (32.4-45.2); LYMPH % 40.6 % (8-40); MCHC 32.8 g/dl (32.0-36.0); MEAN CELL VOLUME 82.4 fl (80-96); MEAN PLT VOLUME 9.4 fl (7.5-11.1); MONO % 8.4 % (3.8-10.2); NEUT % 48.6 % (42.8-82.8); PLATELET COUNT 182 K/MM3 (134-434); RBC 4.78 M/mm3 (3.60-5.2); RDW 17.6 % (11.6-15.6)
[2019-05-18] MEDS ORDERED: FUROSEMIDE 40 MG TABLET (FP) PO SCH (06:00)
[2019-05-18 06:17] LABS: ALBUMIN 3.6 g/dl (3.4-5.0); BILIRUBIN,TOTAL 0.3 mg/dL (0.2-1); BLOOD UREA NITROGEN 29.7 mg/dL (7-18); CALCIUM 8.9 mg/dL (8.5-10.1); CREATININE 3.2 mg/dL (0.55-1.3); POTASSIUM 3.5 mmol/L (3.5-5.1); TOT PROT 6.7 g/dl (6.4-8.2)
[2019-05-18] MEDS: DOCUSATE SODIUM 100 MG CAPSULE (FP) PO SCH ×4 (07:04→21:23)
[2019-05-18] MEDS: LEVOTHYROXINE NA 75 MCG TABLET (FP) PO SCH (07:04)
[2019-05-18] MEDS: INSULIN SLIDING SCALE (NOVOLOG) 1 VIAL SQ SCH ×4 (07:19→21:20)
[2019-05-18 07:55] VITALS: BMI 41.4
[2019-05-18] MEDS: APIXABAN 5 MG TABLET PO SCH ×2 (09:42→21:22)
[2019-05-18] MEDS: GABAPENTIN 300 MG CAPSULE (FP) PO SCH ×2 (09:42→21:21)
[2019-05-18] MEDS: MAGNESIUM OXIDE 400 MG TABLET (FP) PO SCH ×2 (09:42→21:21)
[2019-05-18] MEDS: DULoxetine HCL 30 MG CAPSULE.DR PO SCH ×2 (09:42→21:21)
[2019-05-18] MEDS: POTASSIUM CHLORIDE TABS 20 MEQ TABLET.ER (FP) PO SCH (09:42)
[2019-05-18] MEDS: RANOLAZINE E.R. 500 MG TABLET (FP) PO SCH ×2 (09:42→21:22)
[2019-05-18] MEDS ORDERED: amLODIPine BESYLATE 5 MG TABLET (FP) PO SCH (10:00)
[2019-05-18] MEDS ORDERED: CARVEDILOL 12.5 MG TABLET (FP) PO SCH (10:00)
--- NOTE | 2019-05-18 10:34 | EKG ---
Test Reason : Blood Pressure : / mmHG Vent. Rate : 090 BPM Atrial Rate : 090 BPM P-R Int : 144 ms QRS Dur : 098 ms QT Int : 402 ms P-R-T Axes : 039 -14 109 degrees QTc Int : 491 ms SINUS RHYTHM WITH OCCASIONAL PREMATURE VENTRICULAR COMPLEXES VOLTAGE CRITERIA FOR LEFT VENTRICULAR HYPERTROPHY T WAVE ABNORMALITY, CONSIDER LATERAL ISCHEMIA PROLONGED QT ABNORMAL ECG Confirmed by MD JAMES, RAFAEL ([id number]) on 05/18/2019 10:33:45 AM Referred By: Confirmed By:RAFAEL RAMIREZ MD
--- NOTE | 2019-05-18 12:12 | CON.CARD ---
Cardiology Consult (text) - Consultation Consultation Note: Chief Complaint: syncope History of Present Illness: 59F with NICM s/p primary prevention ICD, HTN, asthma admitted with syncope. Sees Dr. Mooney for cardio. - History Source History Provided By: Patient, Medical Record Limitations to Obtaining History: No Limitations - Past Medical History Cardio/Vascular: Yes: CHF (Chronic systolic CHF secondary to non-ischemic CM, ICD- primary prevention), HTN Pulmonary: Yes: Asthma, Sleep Apnea Endocrine: Yes: Diabetes Mellitus, Hypothyroidism - Past Surgical History Past Surgical History: Yes: Cholecystectomy, Joint Replacement (left tkr), Permanent Pacemaker (ICD) - Alcohol/Substance Use Hx Alcohol Use: No - Smoking History Smoking history: Never smoked Have you smoked in the past 12 months: No Aproximately how many cigarettes per day: 0 - Social History Usual Living Arrangement: With Spouse ADL: Independent History of Recent Travel: No Home Medications - Allergies Allergies/Adverse Reactions: Allergies Allergy/AdvReac Type Severity Reaction Status Date / Time tomato Allergy Mild Hives Verified 05/17/19 21:19 chlorpheniramine Allergy Verified 05/17/19 21:19 cimetidine Allergy Verified 05/17/19 21:19 codeine [Codeine] Allergy Verified 05/17/19 21:19 ibuprofen Allergy Verified 05/17/19 21:19 latex [Latex] Allergy Verified 05/17/19 21:19 Latex, Natural Rubber Allergy Verified 05/17/19 21:19 pseudoephedrine Allergy Verified 05/17/19 21:19 salmeterol xinafoate Allergy Verified 05/17/19 21:19 [From Advair Diskus] shellfish derived Allergy Verified 05/17/19 21:19 Sulfa (Sulfonamide Allergy Verified 05/17/19 21:19 Antibiotics) [Sulfa(Sulfonamide Antibiotics)] Chocolate Allergy Mild Hives Uncoded 05/17/19 21:19 shrimp Allergy Mild Hives Uncoded 05/17/19 21:19 Home Medications Medication Instructions Recorded Atorvastatin Ca [Lipitor] 40 mg PO HS 08/09/16 Duloxetine HCl [Cymbalta] 30 mg PO BID 08/09/16 Insulin Glargine,Hum.rec.anlog 25 units SQ HS 08/09/16 [Lantus Solostar PEN -] Levothyroxine [Synthroid -] 75 mcg PO DAILY 08/09/16 Linaclotide [Linzess] 290 mcg PO DAILY 08/09/16 Montelukast Na [Singulair -] 10 mg PO HS 08/09/16 Albuterol Sulfate Inhaler - 1 - 2 inh PO Q4H PRN 10/14/16 [Ventolin HFA Inhaler -] Amlodipine Besylate 5 mg PO DAILY 10/14/16 Budesonide/Formeterol Fumarate 2 puff PO DAILY 10/14/16 [SYMBICORT 160/4.5mcg -] Linagliptin/Metformin HCl 290 mcg PO BID 10/14/16 [Jentadueto 2.5 mg-1000 mg Tab] Albuterol 2.5/Ipratropium 0.5 1 neb NEB Q4H #20 vial 06/08/18 [Duoneb -] Apixaban [Eliquis -] 5 mg PO BID 06/11/18 Cyclobenzaprine HCl [Flexeril -] 10 mg PO TID PRN 06/11/18 Loratadine 10 mg PO DAILY 06/11/18 Ranolazine [Ranexa -] 500 mg PO BID 06/11/18 Carvedilol [Coreg -] 12.5 mg PO BID #60 tablet 06/15/18 Gabapentin [Neurontin -] 300 mg PO BID capsule 06/15/18 Magnesium Oxide [Mag-Ox -] 400 mg PO BID #60 tablet 06/15/18 Potassium Chloride [K-Dur -] 20 meq PO DAILY #30 tablet.er 06/15/18 Albuterol 2.5/Ipratropium 0.5 1 amp NEB Q6H PRN #90 amp 03/08/19 [Duoneb -] Docusate Sodium [Colace -] 100 mg PO TID #90 capsule 03/08/19 Furosemide [Lasix -] 40 mg PO BID@0600,1400 #60 tablet 03/08/19 Family Disease History - Family Disease History Family History: Unremarkable (non-contributory to this presentation) Review of Systems Findings/Remarks: See HPI - Review of Systems Constitutional: reports: No Symptoms Cardiovascular: reports: Shortness of Breath Respiratory: reports: SOB on Exertion, Wheezing Genitourinary: denies: No Symptoms, Burning, Discharge, Dysuria, Flank Pain, Frequency, Hematuria, Incontinence, Lesions, Menses, Pain, Testicular Mass, Testicular Pain, Testicular Swelling, Urgency, Vaginal Bleeding, Other Breasts: denies: No Symptoms Reported, See HPI, Breast Implants, Discharge from Nipple, Lumps, Pain, Skin Changes, Other Musculoskeletal: denies: No Symptoms, Back Pain, Crepitus, Decreased ROM, Extremity Pain, Joint Pain, Joint Swelling, Muscle Pain, Muscle Cramps, Muscle Weakness, Other Integumentary: denies: No Symptoms, Blister, Bruising, Change in Color, Eczema, Erythema, Incision, Lesions, Lump, Pallor, Pruritis, Rash, Wound, Other Neurological: denies: No Symptoms, Change in LOC, Change in Speech, Confusion, Dizziness, Headache, Incoordination, Numbness, Parasthesia, Pre-Existing Deficit , Seizure, Syncope, Tremors, Unsteady Gait, Weakness, Other Endocrine: denies: No Symptoms, Excessive Sweating, Flushing, Increased Hunger, Increased Thirst, Intolerance to Cold, Intolerance to Heat, Unexplained Weight Gain, Unexplained Weight Loss, Other Hematology/Lymphatic: denies: No Symptoms, Easily Bruised, Excessive Bleeding, Swollen Glands, Other Psychiatric: denies: No Symptoms, Altered Sleep Pattern, Anxiety, Depression, Hallucinations, Panic, Paranoia, Suicidal, Other - Risk Factors Known Risk Factors: Yes: Diabetes Mellitus, Hypertension Vital Signs Period Temp Pulse Resp BP Sys/Mcgrath Pulse Ox Last 24 Hr 97.7 F-99.1 F 79-92 16-20 89-96/49-54 95-97 Constitutional: Yes: No Distress Eyes: Yes: Conjunctiva Clear, EOM Intact HENT: Yes: Atraumatic, Normocephalic Neck: Yes: Trachea Midline Respiratory: Yes: dec breath sounds at bases bilaterally Gastrointestinal: Yes: Soft, Abdomen, Obese (obese,NT) Cardiovascular: Yes: Regular Rate and Rhythm JVD: Yes Carotid Bruit: No PMI: Non-Displaced Heart Sounds: Yes: S1, S2 (RRR, no murmurs) Edema: Yes Edema: LLE: Trace, RLE: Trace Peripheral Pulses WNL: Yes Neurological: Yes: Alert, Oriented ...Motor Strength: WNL Psychiatric: Yes: WNL Laboratory Last Values WBC 7.8 K/mm3 (4.0-10.0) 05/18/19 05:22 RBC 4.78 M/mm3 (3.60-5.2) 05/18/19 05:22 Hgb 12.9 GM/dL (10.7-15.3) 05/18/19 05:22 Hct 39.3 % (32.4-45.2) 05/18/19 05:22 MCV 82.4 fl (80-96) 05/18/19 05:22 MCH 27.0 pg (25.7-33.7) 05/18/19 05:22 MCHC 32.8 g/dl (32.0-36.0) 05/18/19 05:22 RDW 17.6 % (11.6-15.6) H 05/18/19 05:22 Plt Count 182 K/MM3 (134-434) 05/18/19 05:22 MPV 9.4 fl (7.5-11.1) 05/18/19 05:22 Absolute Neuts (auto) 3.8 K/mm3 (1.5-8.0) 05/18/19 05:22 Neutrophils % 48.6 % (42.8-82.8) 05/18/19 05:22 Lymphocytes % 40.6 % (8-40) H 05/18/19 05:22 Monocytes % 8.4 % (3.8-10.2) 05/18/19 05:22 Eosinophils % 1.4 % (0-4.5) 05/18/19 05:22 Basophils % 1.0 % (0-2.0) 05/18/19 05:22 Nucleated RBC % 0 % (0-0) 05/18/19 05:22 Sodium 133 mmol/L (136-145) L 05/18/19 05:22 Potassium 3.5 mmol/L (3.5-5.1) 05/18/19 05:22 Chloride 96 mmol/L (98-107) L 05/18/19 05:22 Carbon Dioxide 28 mmol/L (21-32) 05/18/19 05:22 Anion Gap 9 MMOL/L (8-16) 05/18/19 05:22 BUN 29.7 mg/dL (7-18) H 05/18/19 05:22 Creatinine 3.2 mg/dL (0.55-1.3) H 05/18/19 05:22 Est GFR (CKD-EPI)AfAm 17.50 05/18/19 05:22 Est GFR (CKD-EPI)NonAf 15.10 05/18/19 05:22 POC Glucometer 154 UNITS (80-120) 05/18/19 07:06 Random Glucose 137 mg/dL (74-106) H 05/18/19 05:22 Calcium 8.9 mg/dL (8.5-10.1) 05/18/19 05:22 Total Bilirubin 0.3 mg/dL (0.2-1) 05/18/19 05:22 AST 13 U/L (15-37) L 05/18/19 05:22 ALT 14 U/L (13-61) 05/18/19 05:22 Alkaline Phosphatase 81 U/L (45-117) 05/18/19 05:22 Creatine Kinase 292 U/L (26-192) H 05/18/19 03:45 Creatine Kinase Index 0.3 % (0.0-5.0) 05/18/19 03:45 CK-MB (CK-2) 1.0 ng/mL (0.5-3.6) 05/18/19 03:45 Troponin I 0.09 ng/ml (0.00-0.05) H 05/18/19 03:45 B-Natriuretic Peptide 124.7 pg/ml (5-125) 05/17/19 23:30 Total Protein 6.7 g/dl (6.4-8.2) 05/18/19 05:22 Albumin 3.6 g/dl (3.4-5.0) 05/18/19 05:22 Echo: Report Reviewed ( Office May 2018--> moderately reduced LVEF, No sig valve disease.) Prior Cardiac Procedures: Cardiac Catheterization (non-obstructive CAD) CXR: no acute process EKG: sinus, PVC, no ischemic changes echo 03/2019: lve, sev dec lvef, global hk, vamsi, rv tds, no sig valve path tele: syncope - Elevated troponin - flat trend, indeterminate range, likely demand, less c/w ACS - EKG no ischemic changes Chronic systolic CHF: -Continue Entresto, Coreg - echo in office 05/2018 with improved LV fx, severe LV dysfunction on echo 2018 although tds - Routine office interrogation of ICD as outpatient Chronic HTN: -cont home meds paroxysmal afib - cont demi felipe DM: -manage per primary HLD - cont statin
--- NOTE | 2019-05-18 12:23 | HP ---
Admitting History and Physical - Admission History of Present Illness: The patient is a 59 year old female with a significant PMH of Afib (on Eliquis) , CAD (s/p 2x stents), CHF, diabetes, COPD, asthma, nonischemic cardiomyopathy ( ICD placed), peripeheral neuropathy and morbid obesity who presents to the emergency department for evaluation of syncope. Patient states yesterday she got up from bed to go to the bathroom and her vision began to go dark, hitting her head on the toilet. She reports today she passed out again at about 3-4PM on the way to the kitchen, and once more in the living room onto her couch. She notes associated vertigo with her syncope. The patient is unable to state how long each episode lasted. She denies difficulty ambulating after the episodes. The patient denies prior history of syncope. The patient also notes diffuse muscle spasms throughout her body that feel like her muscles are 'locking up'. - Past Medical History Cardiovascular: Yes: CHF (Chronic systolic CHF secondary to non-ischemic CM, ICD - primary prevention), HTN, Hyperlipdemia Pulmonary: Yes: Asthma, Sleep Apnea Endocrine: Yes: Diabetes Mellitus, Hypothyroidism - Past Surgical History Past Surgical History: Yes: Cholecystectomy, Joint Replacement (left tkr), Permanent Pacemaker (ICD) - Smoking History Smoking history: Never smoked Have you smoked in the past 12 months: No Aproximately how many cigarettes per day: 0 - Alcohol/Substance Use Hx Alcohol Use: No - Social History ADL: Independent History of Recent Travel: No Home Medications - Allergies Allergies/Adverse Reactions: Allergies Allergy/AdvReac Type Severity Reaction Status Date / Time tomato Allergy Mild Hives Verified 05/17/19 21:19 chlorpheniramine Allergy Verified 05/17/19 21:19 cimetidine Allergy Verified 05/17/19 21:19 codeine [Codeine] Allergy Verified 05/17/19 21:19 ibuprofen Allergy Verified 05/17/19 21:19 latex [Latex] Allergy Verified 05/17/19 21:19 Latex, Natural Rubber Allergy Verified 05/17/19 21:19 pseudoephedrine Allergy Verified 05/17/19 21:19 salmeterol xinafoate Allergy Verified 05/17/19 21:19 [From Advair Diskus] shellfish derived Allergy Verified 05/17/19 21:19 Sulfa (Sulfonamide Allergy Verified 05/17/19 21:19 Antibiotics) [Sulfa(Sulfonamide Antibiotics)] Chocolate Allergy Mild Hives Uncoded 05/17/19 21:19 shrimp Allergy Mild Hives Uncoded 05/17/19 21:19 - Home Medications Home Medications: Ambulatory Orders Atorvastatin Ca [Lipitor] 40 mg PO HS 08/09/16 Duloxetine HCl [Cymbalta] 30 mg PO BID 08/09/16 Insulin Glargine,Hum.rec.anlog [Lantus Solostar PEN -] 25 units SQ HS 08/09/16 Levothyroxine [Synthroid -] 75 mcg PO DAILY 08/09/16 Linaclotide [Linzess] 290 mcg PO DAILY 08/09/16 Montelukast Na [Singulair -] 10 mg PO HS 08/09/16 Albuterol Sulfate Inhaler - [Ventolin HFA Inhaler -] 1 - 2 inh PO Q4H PRN Amlodipine Besylate 5 mg PO DAILY 10/14/16 Budesonide/Formeterol Fumarate [SYMBICORT 160/4.5mcg -] 2 puff PO DAILY Linagliptin/Metformin HCl [Jentadueto 2.5 mg-1000 mg Tab] 290 mcg PO BID Albuterol 2.5/Ipratropium 0.5 [Duoneb -] 1 neb NEB Q4H #20 vial 06/08/18 Apixaban [Eliquis -] 5 mg PO BID 06/11/18 Cyclobenzaprine HCl [Flexeril -] 10 mg PO TID PRN 06/11/18 Loratadine 10 mg PO DAILY 06/11/18 Ranolazine [Ranexa -] 500 mg PO BID 06/11/18 Carvedilol [Coreg -] 12.5 mg PO BID #60 tablet 06/15/18 Gabapentin [Neurontin -] 300 mg PO BID capsule 06/15/18 Magnesium Oxide [Mag-Ox -] 400 mg PO BID #60 tablet 06/15/18 Potassium Chloride [K-Dur -] 20 meq PO DAILY #30 tablet.er 06/15/18 Albuterol 2.5/Ipratropium 0.5 [Duoneb -] 1 amp NEB Q6H PRN #90 amp 03/08/19 Docusate Sodium [Colace -] 100 mg PO TID #90 capsule 03/08/19 Furosemide [Lasix -] 40 mg PO BID@0600,1400 #60 tablet 03/08/19 Family Disease History - Family Disease History Family History: Unremarkable Review of Systems - Review of Systems Eyes: reports: No Symptoms HENT: reports: No Symptoms Neck: reports: No Symptoms Cardiovascular: reports: No Symptoms Respiratory: reports: No Symptoms Gastrointestinal: reports: No Symptoms Genitourinary: reports: No Symptoms Physical Examination Vital Signs: Vital Signs Temperature 97.8 F 05/18/19 09:47 Pulse Rate 79 05/18/19 09:47 Respiratory Rate 20 05/18/19 09:47 Blood Pressure 96/54 L 05/18/19 09:47 O2 Sat by Pulse Oximetry (%) 96 05/18/19 09:00 Constitutional: Yes: No Distress, Obese HENT: Yes: WNL Neck: Yes: WNL, Supple Cardiovascular: Yes: WNL, Regular Rate and Rhythm Respiratory: Yes: WNL, Regular, CTA Bilaterally Gastrointestinal: Yes: WNL, Normal Bowel Sounds, Soft, Abdomen, Obese Musculoskeletal: Yes: WNL Edema: No Labs: CBC, BMP 05/18/19 05:22 05/18/19 05:22 Problem List - Problems (1) Syncope Assessment/Plan: Slight elevation of troponin/cpk ?Due to dehydration Lasix on hold Check echo Code(s): R55 - SYNCOPE AND COLLAPSE (2) MU (acute kidney injury) Assessment/Plan: Pt is hypotensive and volume depleted Pt given bolu of NS Cont to monitor Monitor electrolytes Check renal US Code(s): N17.9 - ACUTE KIDNEY FAILURE, UNSPECIFIED (3) Chronic systolic CHF (congestive heart failure), NYHA class 3 Assessment/Plan: Lasix on hold due to volume depletion COnt to monitor Code(s): I50.22 - CHRONIC SYSTOLIC (CONGESTIVE) HEART FAILURE (4) Paroxysmal A-fib Assessment/Plan: Heart rate controlled Cont eliquis Code(s): I48.0 - PAROXYSMAL ATRIAL FIBRILLATION (5) COPD (chronic obstructive pulmonary disease) Assessment/Plan: Cont inhalers Code(s): J44.9 - CHRONIC OBSTRUCTIVE PULMONARY DISEASE, UNSPECIFIED Qualifiers: COPD type: chronic bronchitis Chronic bronchitis type: unspecified Qualified Code(s): J42 - Unspecified chronic bronchitis (6) Cardiomyopathy Assessment/Plan: S/P ICD placement Code(s): I42.9 - CARDIOMYOPATHY, UNSPECIFIED (7) Diabetes Assessment/Plan: Cont sliding scale Metformin on hold due to ARF Code(s): E11.9 - TYPE 2 DIABETES MELLITUS WITHOUT COMPLICATIONS Qualifiers: Diabetes mellitus type: type 2 (8) Hyperlipidemia Assessment/Plan: Lipitor on hold due to elevated CPK Code(s): E78.5 - HYPERLIPIDEMIA, UNSPECIFIED (9) Hypertension Assessment/Plan: BP hypotensive Cont to monitor Code(s): I10 - ESSENTIAL (PRIMARY) HYPERTENSION Qualifiers: Hypertension type: essential hypertension Qualified Code(s): I10 - Essential (primary) hypertension (10) Hypothyroidism Assessment/Plan: Cont levothyroxine Code(s): E03.9 - HYPOTHYROIDISM, UNSPECIFIED (11) ICD (implantable cardioverter-defibrillator) in place Code(s): Z95.810 - PRESENCE OF AUTOMATIC (IMPLANTABLE) CARDIAC DEFIBRILLATOR (12) Morbid obesity Code(s): E66.01 - MORBID (SEVERE) OBESITY DUE TO EXCESS CALORIES
--- NOTE | 2019-05-18 13:50 | CONSULT ---
Consult Consult Specialty:: Nephrology Reason for Consultation:: MU - History of Present Illness Chief Complaint: syncope History of Present Illness: Pt is a 59 year old female with pmhx of CAD, PR, a-fib, asthma, CHF and VAHID who presented to the ER with multiple episodes of syncope. She says that she passed out three times. She was found to be in renal failure and I was called to evaluate her. SHe denies shortness of breath. She denies lower ext edema. She says that she was on diuretics. She denies nsaid use. She deneis hematuria or dysuria. She denies history of CKD. - History Source History Provided By: Patient, Medical Record - Past Medical History Cardio/Vascular: Yes: CHF (Chronic systolic CHF secondary to non-ischemic CM, ICD- primary prevention), HTN Pulmonary: Yes: Asthma, Sleep Apnea Endocrine: Yes: Diabetes Mellitus, Hypothyroidism - Past Surgical History Past Surgical History: Yes: Cholecystectomy, Joint Replacement (left tkr), Permanent Pacemaker (ICD) - Alcohol/Substance Use Hx Alcohol Use: No - Smoking History Smoking history: Never smoked Have you smoked in the past 12 months: No Aproximately how many cigarettes per day: 0 - Social History Usual Living Arrangement: With Spouse ADL: Independent History of Recent Travel: No Home Medications - Allergies Allergies/Adverse Reactions: Allergies Allergy/AdvReac Type Severity Reaction Status Date / Time tomato Allergy Mild Hives Verified 05/17/19 21:19 chlorpheniramine Allergy Verified 05/17/19 21:19 cimetidine Allergy Verified 05/17/19 21:19 codeine [Codeine] Allergy Verified 05/17/19 21:19 ibuprofen Allergy Verified 05/17/19 21:19 latex [Latex] Allergy Verified 05/17/19 21:19 Latex, Natural Rubber Allergy Verified 05/17/19 21:19 pseudoephedrine Allergy Verified 05/17/19 21:19 salmeterol xinafoate Allergy Verified 05/17/19 21:19 [From Advair Diskus] shellfish derived Allergy Verified 05/17/19 21:19 Sulfa (Sulfonamide Allergy Verified 05/17/19 21:19 Antibiotics) [Sulfa(Sulfonamide Antibiotics)] Chocolate Allergy Mild Hives Uncoded 05/17/19 21:19 shrimp Allergy Mild Hives Uncoded 05/17/19 21:19 - Home Medications Home Medications: Ambulatory Orders Atorvastatin Ca [Lipitor] 40 mg PO HS 08/09/16 Duloxetine HCl [Cymbalta] 30 mg PO BID 08/09/16 Insulin Glargine,Hum.rec.anlog [Lantus Solostar PEN -] 25 units SQ HS 08/09/16 Levothyroxine [Synthroid -] 75 mcg PO DAILY 08/09/16 Linaclotide [Linzess] 290 mcg PO DAILY 08/09/16 Montelukast Na [Singulair -] 10 mg PO HS 08/09/16 Albuterol Sulfate Inhaler - [Ventolin HFA Inhaler -] 1 - 2 inh PO Q4H PRN Amlodipine Besylate 5 mg PO DAILY 10/14/16 Budesonide/Formeterol Fumarate [SYMBICORT 160/4.5mcg -] 2 puff PO DAILY Linagliptin/Metformin HCl [Jentadueto 2.5 mg-1000 mg Tab] 290 mcg PO BID Albuterol 2.5/Ipratropium 0.5 [Duoneb -] 1 neb NEB Q4H #20 vial 06/08/18 Apixaban [Eliquis -] 5 mg PO BID 06/11/18 Cyclobenzaprine HCl [Flexeril -] 10 mg PO TID PRN 06/11/18 Loratadine 10 mg PO DAILY 06/11/18 Ranolazine [Ranexa -] 500 mg PO BID 06/11/18 Carvedilol [Coreg -] 12.5 mg PO BID #60 tablet 06/15/18 Gabapentin [Neurontin -] 300 mg PO BID capsule 06/15/18 Magnesium Oxide [Mag-Ox -] 400 mg PO BID #60 tablet 06/15/18 Potassium Chloride [K-Dur -] 20 meq PO DAILY #30 tablet.er 06/15/18 Albuterol 2.5/Ipratropium 0.5 [Duoneb -] 1 amp NEB Q6H PRN #90 amp 03/08/19 Docusate Sodium [Colace -] 100 mg PO TID #90 capsule 03/08/19 Furosemide [Lasix -] 40 mg PO BID@0600,1400 #60 tablet 03/08/19 Family Disease History - Family Disease History Family History: Denies Review of Systems - Review of Systems Constitutional: reports: Malaise Eyes: reports: No Symptoms HENT: reports: No Symptoms Neck: reports: No Symptoms Cardiovascular: reports: No Symptoms Respiratory: reports: No Symptoms Gastrointestinal: reports: No Symptoms Genitourinary: reports: No Symptoms Musculoskeletal: reports: No Symptoms Integumentary: reports: No Symptoms Neurological: reports: No Symptoms Endocrine: reports: No Symptoms Hematology/Lymphatic: reports: No Symptoms Physical Exam Vital Signs: Vital Signs Temperature 97.8 F 05/18/19 09:47 Pulse Rate 79 05/18/19 09:47 Respiratory Rate 20 05/18/19 09:47 Blood Pressure 96/54 L 05/18/19 09:47 O2 Sat by Pulse Oximetry (%) 96 05/18/19 09:00 Constitutional: Yes: Calm Eyes: Yes: Conjunctiva Clear HENT: Yes: Atraumatic Cardiovascular: Yes: S1, S2 Respiratory: Yes: CTA Bilaterally Gastrointestinal: Yes: Soft, Abdomen, Obese Renal/: Yes: WNL Musculoskeletal: Yes: WNL Extremities: Yes: WNL Edema: No Integumentary: Yes: Venous Stasis Changes Neurological: Yes: Oriented Psychiatric: Yes: Oriented Labs: CBC, BMP 05/18/19 05:22 05/18/19 05:22 Selected Entries 05/18/19 05/18/19 05/18/19 05:23 06:00 09:47 Blood Pressure 90/51 L 96/54 L Blood Pressure 89/49 L [Right Arm] Laboratory Tests 03/04/19 03/05/19 03/08/19 06:34 07:00 06:20 WBC Sodium Creatinine 1.3 1.2 1.1 05/17/19 05/17/19 05/18/19 23:30 23:30 05:22 WBC 9.3 7.8 Sodium Creatinine 2.8 H 05/18/19 05:22 WBC Sodium 133 L Creatinine 3.2 H Imaging - Results Chest X-ray: Report Reviewed Problem List - Problems (1) MU (acute kidney injury) Code(s): N17.9 - ACUTE KIDNEY FAILURE, UNSPECIFIED (2) Syncope Code(s): R55 - SYNCOPE AND COLLAPSE (3) Hypertension Code(s): I10 - ESSENTIAL (PRIMARY) HYPERTENSION Qualifiers: Hypertension type: essential hypertension Qualified Code(s): I10 - Essential (primary) hypertension Assessment/Plan Current Medications Generic Name Dose Route Start Last Admin Trade Name Freq PRN Reason Stop Dose Admin Albuterol/Ipratropium 1 amp 05/18/19 02:25 Duoneb - NEB Q6H PRN SHORTNESS OF BREATH Amlodipine Besylate 5 mg 05/18/19 10:00 05/18/19 09:42 Norvasc - PO 5 mg DAILY DOM Administration Apixaban 5 mg 05/18/19 10:00 05/18/19 09:42 Eliquis - PO 5 mg BID DOM Administration Atorvastatin Calcium 40 mg 05/18/19 22:00 Lipitor - PO HS DOM Carvedilol 12.5 mg 05/18/19 10:00 05/18/19 09:42 Coreg - PO 12.5 mg BID DOM Administration Docusate Sodium 100 mg 05/18/19 06:00 05/18/19 07:04 Colace - PO 100 mg TID DOM Administration Duloxetine HCl 30 mg 05/18/19 10:00 05/18/19 09:42 Cymbalta - PO 30 mg BID DOM Administration Furosemide 40 mg 05/18/19 06:00 05/18/19 07:04 Lasix - PO 40 mg BID@0600,1400 DOM Administration Gabapentin 300 mg 05/18/19 10:00 05/18/19 09:42 Neurontin - PO 300 mg BID DOM Administration Sodium Chloride 1,000 mls @ 75 mls/hr 05/18/19 02:45 05/18/19 03:02 1/2 Normal Saline IV 75 mls/hr ASDIR DOM Administration Insulin Aspart 1 vial 05/18/19 07:00 05/18/19 12:53 Novolog Vial Sliding Scale - SQ Not Given ACHS DOM Protocol Levothyroxine Sodium 75 mcg 05/18/19 07:00 05/18/19 07:04 Synthroid - PO 75 mcg DAILY@0700 DOM Administration Magnesium Oxide 400 mg 05/18/19 10:00 05/18/19 09:42 Mag-Ox - PO 400 mg BID DOM Administration Montelukast Sodium 10 mg 05/18/19 22:00 Singulair - PO HS DOM Potassium Chloride 20 meq 05/18/19 10:00 05/18/19 09:42 K-Dur - PO 20 meq DAILY DOM Administration Ranolazine 500 mg 05/18/19 10:00 05/18/19 09:42 Ranexa - PO 500 mg BID DOM Administration Laboratory Tests 05/17/19 05/18/19 23:30 05:22 Creatinine 2.8 H 3.2 H B-Natriuretic Peptide 124.7 Impression 1. MU 2. syncope 3. asthma 4. chf 5. obesity 6. hypotension 7. 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
[2019-05-18] MEDS ORDERED: SODIUM CHLORIDE 500 ML IV STA (13:54)
--- NOTE | 2019-05-18 14:49 | CON.CARD ---
Cardiology Consult (text) - Consultation Consultation Note: Chief Complaint: dizzy, syncope History of Present Illness: 59F with NICM s/p primary prevention ICD, HTN, asthma here with dizziness, syncope. Past few days has been very dizzy with room spinning sensation. Two days ago she got up from bed to go to the bathroom and she became lightheaded and passed out. Had repeat episode of syncope yesterday as well. No cp sob palps pnd orthopnea le edema. Sees Dr. Mooney for cardio. - History Source History Provided By: Patient, Medical Record Limitations to Obtaining History: No Limitations - Past Medical History Cardio/Vascular: Yes: CHF (Chronic systolic CHF secondary to non-ischemic CM, ICD- primary prevention), HTN Pulmonary: Yes: Asthma, Sleep Apnea Endocrine: Yes: Diabetes Mellitus, Hypothyroidism - Past Surgical History Past Surgical History: Yes: Cholecystectomy, Joint Replacement (left tkr), Permanent Pacemaker (ICD) - Alcohol/Substance Use Hx Alcohol Use: No - Smoking History Smoking history: Never smoked Have you smoked in the past 12 months: No Aproximately how many cigarettes per day: 0 - Social History Usual Living Arrangement: With Spouse ADL: Independent History of Recent Travel: No Home Medications - Allergies Allergies/Adverse Reactions: Allergies Allergy/AdvReac Type Severity Reaction Status Date / Time tomato Allergy Mild Hives Verified 05/17/19 21:19 chlorpheniramine Allergy Verified 05/17/19 21:19 cimetidine Allergy Verified 05/17/19 21:19 codeine [Codeine] Allergy Verified 05/17/19 21:19 ibuprofen Allergy Verified 05/17/19 21:19 latex [Latex] Allergy Verified 05/17/19 21:19 Latex, Natural Rubber Allergy Verified 05/17/19 21:19 pseudoephedrine Allergy Verified 05/17/19 21:19 salmeterol xinafoate Allergy Verified 05/17/19 21:19 [From Advair Diskus] shellfish derived Allergy Verified 05/17/19 21:19 Sulfa (Sulfonamide Allergy Verified 05/17/19 21:19 Antibiotics) [Sulfa(Sulfonamide Antibiotics)] Chocolate Allergy Mild Hives Uncoded 05/17/19 21:19 shrimp Allergy Mild Hives Uncoded 05/17/19 21:19 Home Medications Medication Instructions Recorded Atorvastatin Ca [Lipitor] 40 mg PO HS 08/09/16 Duloxetine HCl [Cymbalta] 30 mg PO BID 08/09/16 Insulin Glargine,Hum.rec.anlog 25 units SQ HS 08/09/16 [Lantus Solostar PEN -] Levothyroxine [Synthroid -] 75 mcg PO DAILY 08/09/16 Linaclotide [Linzess] 290 mcg PO DAILY 08/09/16 Montelukast Na [Singulair -] 10 mg PO HS 08/09/16 Albuterol Sulfate Inhaler - 1 - 2 inh PO Q4H PRN 10/14/16 [Ventolin HFA Inhaler -] Amlodipine Besylate 5 mg PO DAILY 10/14/16 Budesonide/Formeterol Fumarate 2 puff PO DAILY 10/14/16 [SYMBICORT 160/4.5mcg -] Linagliptin/Metformin HCl 290 mcg PO BID 10/14/16 [Jentadueto 2.5 mg-1000 mg Tab] Albuterol 2.5/Ipratropium 0.5 1 neb NEB Q4H #20 vial 06/08/18 [Duoneb -] Apixaban [Eliquis -] 5 mg PO BID 06/11/18 Cyclobenzaprine HCl [Flexeril -] 10 mg PO TID PRN 06/11/18 Loratadine 10 mg PO DAILY 06/11/18 Ranolazine [Ranexa -] 500 mg PO BID 06/11/18 Carvedilol [Coreg -] 12.5 mg PO BID #60 tablet 06/15/18 Gabapentin [Neurontin -] 300 mg PO BID capsule 06/15/18 Magnesium Oxide [Mag-Ox -] 400 mg PO BID #60 tablet 06/15/18 Potassium Chloride [K-Dur -] 20 meq PO DAILY #30 tablet.er 06/15/18 Albuterol 2.5/Ipratropium 0.5 1 amp NEB Q6H PRN #90 amp 03/08/19 [Duoneb -] Docusate Sodium [Colace -] 100 mg PO TID #90 capsule 03/08/19 Furosemide [Lasix -] 40 mg PO BID@0600,1400 #60 tablet 03/08/19 Family Disease History - Family Disease History Family History: Unremarkable (non-contributory to this presentation) Review of Systems Findings/Remarks: See HPI - Review of Systems Constitutional: reports: No Symptoms Cardiovascular: reports: Shortness of Breath Respiratory: reports: SOB on Exertion, Wheezing Genitourinary: denies: No Symptoms, Burning, Discharge, Dysuria, Flank Pain, Frequency, Hematuria, Incontinence, Lesions, Menses, Pain, Testicular Mass, Testicular Pain, Testicular Swelling, Urgency, Vaginal Bleeding, Other Breasts: denies: No Symptoms Reported, See HPI, Breast Implants, Discharge from Nipple, Lumps, Pain, Skin Changes, Other Musculoskeletal: denies: No Symptoms, Back Pain, Crepitus, Decreased ROM, Extremity Pain, Joint Pain, Joint Swelling, Muscle Pain, Muscle Cramps, Muscle Weakness, Other Integumentary: denies: No Symptoms, Blister, Bruising, Change in Color, Eczema, Erythema, Incision, Lesions, Lump, Pallor, Pruritis, Rash, Wound, Other Endocrine: denies: No Symptoms, Excessive Sweating, Flushing, Increased Hunger, Increased Thirst, Intolerance to Cold, Intolerance to Heat, Unexplained Weight Gain, Unexplained Weight Loss, Other Hematology/Lymphatic: denies: No Symptoms, Easily Bruised, Excessive Bleeding, Swollen Glands, Other Psychiatric: denies: No Symptoms, Altered Sleep Pattern, Anxiety, Depression, Hallucinations, Panic, Paranoia, Suicidal, Other - Risk Factors Known Risk Factors: Yes: Diabetes Mellitus, Hypertension Vital Signs Period Temp Pulse Resp BP Sys/Mcgrath Pulse Ox Last 24 Hr 97.7 F-99.1 F 79-92 16-20 89-96/49-54 95-97 Constitutional: Yes: No Distress Eyes: Yes: Conjunctiva Clear Neck: Yes: Trachea Midline Respiratory: Yes: dec breath sounds at bases bilaterally Gastrointestinal: Yes: Soft, Abdomen, Obese (obese,NT) Cardiovascular: Yes: Regular Rate and Rhythm JVD: no Carotid Bruit: No PMI: Non-Displaced Heart Sounds: Yes: S1, S2 (RRR, no murmurs) Edema: no Peripheral Pulses WNL: Yes Neurological: Yes: Alert, Oriented no jaundice diaphoresis Psychiatric: Yes: WNL Laboratory Last Values WBC 7.8 K/mm3 (4.0-10.0) 05/18/19 05:22 RBC 4.78 M/mm3 (3.60-5.2) 05/18/19 05:22 Hgb 12.9 GM/dL (10.7-15.3) 05/18/19 05:22 Hct 39.3 % (32.4-45.2) 05/18/19 05:22 MCV 82.4 fl (80-96) 05/18/19 05:22 MCH 27.0 pg (25.7-33.7) 05/18/19 05:22 MCHC 32.8 g/dl (32.0-36.0) 05/18/19 05:22 RDW 17.6 % (11.6-15.6) H 05/18/19 05:22 Plt Count 182 K/MM3 (134-434) 05/18/19 05:22 MPV 9.4 fl (7.5-11.1) 05/18/19 05:22 Absolute Neuts (auto) 3.8 K/mm3 (1.5-8.0) 05/18/19 05:22 Neutrophils % 48.6 % (42.8-82.8) 05/18/19 05:22 Lymphocytes % 40.6 % (8-40) H 05/18/19 05:22 Monocytes % 8.4 % (3.8-10.2) 05/18/19 05:22 Eosinophils % 1.4 % (0-4.5) 05/18/19 05:22 Basophils % 1.0 % (0-2.0) 05/18/19 05:22 Nucleated RBC % 0 % (0-0) 05/18/19 05:22 Sodium 133 mmol/L (136-145) L 05/18/19 05:22 Potassium 3.5 mmol/L (3.5-5.1) 05/18/19 05:22 Chloride 96 mmol/L (98-107) L 05/18/19 05:22 Carbon Dioxide 28 mmol/L (21-32) 05/18/19 05:22 Anion Gap 9 MMOL/L (8-16) 05/18/19 05:22 BUN 29.7 mg/dL (7-18) H 05/18/19 05:22 Creatinine 3.2 mg/dL (0.55-1.3) H 05/18/19 05:22 Est GFR (CKD-EPI)AfAm 17.50 05/18/19 05:22 Est GFR (CKD-EPI)NonAf 15.10 05/18/19 05:22 POC Glucometer 154 UNITS (80-120) 05/18/19 07:06 Random Glucose 137 mg/dL (74-106) H 05/18/19 05:22 Calcium 8.9 mg/dL (8.5-10.1) 05/18/19 05:22 Total Bilirubin 0.3 mg/dL (0.2-1) 05/18/19 05:22 AST 13 U/L (15-37) L 05/18/19 05:22 ALT 14 U/L (13-61) 05/18/19 05:22 Alkaline Phosphatase 81 U/L (45-117) 05/18/19 05:22 Creatine Kinase 292 U/L (26-192) H 05/18/19 03:45 Creatine Kinase Index 0.3 % (0.0-5.0) 05/18/19 03:45 CK-MB (CK-2) 1.0 ng/mL (0.5-3.6) 05/18/19 03:45 Troponin I 0.09 ng/ml (0.00-0.05) H 05/18/19 03:45 B-Natriuretic Peptide 124.7 pg/ml (5-125) 05/17/19 23:30 Total Protein 6.7 g/dl (6.4-8.2) 05/18/19 05:22 Albumin 3.6 g/dl (3.4-5.0) 05/18/19 05:22 Echo: Report Reviewed ( Office May 2018--> moderately reduced LVEF, No sig valve disease.) Prior Cardiac Procedures: Cardiac Catheterization (non-obstructive CAD) echo 03/2019: lve, sev dec lvef, global hk, vamsi, rv tds, no sig valve path CXR: clear lungs tele: sr, occ pvcs EKG: sinus, nl intervals, lvh, lat twis a/p: 59F with NICM s/p primary prevention ICD, HTN, asthma here with dizziness, syncope. syncope: -pt appears to be volume depleted with leonardo and hypotension -agree with ivfs and holding norvasc and lasix, monitor sxs -cont tele, echo pending Elevated troponin - flat trend, indeterminate range with nl ck index, similar to prior baseline values, not c/w ACS Chronic systolic CHF: -appears dry -holding diuretic as above -cont coreg. hold entresto due to leonardo. -mild congestion on CXR -echo in office 05/2018 with lvef moderately reduced, repeat echo here 03/2019 with sev reduced lvef. repeat echo pending here. -Routine office interrogation of ICD as outpatient (Yu[employer]), no icd shocks Chronic HTN: -bp low here, holding norvasc while giving ivfs leonardo: -holding diuretics, cont ivfs -renal following paroxysmal afib - cont eliquis, bb HLD - cont statin
--- NOTE | 2019-05-18 15:43 | ECHO ---
Version: 1 Name: SELINA BROWER Exam: Adult Echocardiogram Study Date: 05/18/2019, 1:49 PM Age: 59 Years MMode/2D Measurements & Calculations IVSd: 0.74 cm LVIDs: 4.2 cm LVIDd: 5.7 cm LVPWd: 0.73 cm LVOT diam: 2.03 cm Ao root diam: 2.48 cm LA dimension: 3.2 cm Doppler Measurements & Calculations MV E max vaughn: 32.6 cm/sec Med E/e': 9.9 MV A max vaughn: 54.8 cm/sec Med Peak E' Vaughn: 3.3 cm/sec MV E/A: 0.59 MR max P.0 mmHg Ao max P.1 mmHg LV V1 mean: 35.8 cm/sec Ao V2 max: 123.3 cm/sec LV V1 mean P.59 mmHg Procedure A two-dimensional transthoracic echocardiogram with color flow and Doppler was performed in limited views only. Left Ventricle The left ventricle is mildly dilated. Ejection Fraction = 30%. Grade I diastolic dysfunction, (abnor mal relaxation pattern). There is severe global hypokinesis of the left ventricle. Right Ventricle There is a pacemaker lead in the right ventricle. The right ventricle is normal in size and function . Atria Normal left and right atrial size and function. Mitral Valve The mitral valve is normal in structure and function. There is mild mitral regurgitation. Tricuspid Valve The tricuspid valve is normal in structure and function. There is mild tricuspid regurgitation. Aortic Valve The aortic valve is not well visualized. No hemodynamically significant valvular aortic stenosis. Pulmonic Valve The pulmonic valve is not well visualized. Great Vessels The aortic root is normal size. Pericardium/Pleura There is no pericardial effusion. Summary Statements A two-dimensional transthoracic echocardiogram with color flow and Doppler was performed in limited views only. The left ventricle is mildly dilated. There is severe global hypokinesis of the left ventricle. The right ventricle is normal in size and function. Ashish Vick 05/18/2019, 2:42 PM Ordering Physician: Mela Lewis Referring Physician: MELA LEWIS Performed By: Suha Montejo
[2019-05-18] MEDS ORDERED: ACETAMINOPHEN 325 MG TABLET (FP) PO PRN (20:40)
[2019-05-18] MEDS: MONTELUKAST NA 10 MG TABLET PO SCH (21:22)
[2019-05-18] MEDS: CARVEDILOL 12.5 MG TABLET (FP) PO SCH (21:22)
[2019-05-18] MEDS ORDERED: ATORVASTATIN CA 40 MG TABLET (FP) PO SCH (22:00)
[2019-05-19] MEDS: SODIUM CHLORIDE 0.45% 1,000 ML IV SCH (03:31)
[2019-05-19] MEDS ORDERED: MECLIZINE HCL 12.5 MG TABLET PO ONE (06:00)
[2019-05-19] MEDS: LEVOTHYROXINE NA 75 MCG TABLET (FP) PO SCH (06:25)
[2019-05-19] MEDS: DOCUSATE SODIUM 100 MG CAPSULE (FP) PO SCH ×3 (06:25→23:00)
[2019-05-19] MEDS: INSULIN SLIDING SCALE (NOVOLOG) 1 VIAL SQ SCH ×4 (06:26→21:39)
[2019-05-19 07:44] LABS: ALBUMIN 3.4 g/dl (3.4-5.0); ALK PHOS 68 U/L (45-117); ANION GAP 9 MMOL/L (8-16); BILIRUBIN,TOTAL 0.5 mg/dL (0.2-1); CALCIUM 9.1 mg/dL (8.5-10.1); CHLORIDE 96 mmol/L (98-107); CO2 28 mmol/L (21-32); CREATININE 1.9 mg/dL (0.55-1.3); GLUCOSE,RANDOM 144 mg/dL (74-106); POTASSIUM 3.8 mmol/L (3.5-5.1); SGOT/AST 9 U/L (15-37); SGPT/ALT 11 U/L (13-61); SODIUM 133 mmol/L (136-145); TOT PROT 6.4 g/dl (6.4-8.2)
[2019-05-19] MEDS: GABAPENTIN 300 MG CAPSULE (FP) PO SCH ×2 (10:14→21:31)
[2019-05-19] MEDS: APIXABAN 5 MG TABLET PO SCH ×2 (10:15→21:31)
[2019-05-19] MEDS: POTASSIUM CHLORIDE TABS 20 MEQ TABLET.ER (FP) PO SCH (10:15)
[2019-05-19] MEDS: RANOLAZINE E.R. 500 MG TABLET (FP) PO SCH ×2 (10:15→21:31)
[2019-05-19] MEDS: MAGNESIUM OXIDE 400 MG TABLET (FP) PO SCH ×2 (10:15→21:31)
[2019-05-19] MEDS: DULoxetine HCL 30 MG CAPSULE.DR PO SCH ×2 (10:15→21:31)
[2019-05-19] MEDS: CARVEDILOL 12.5 MG TABLET (FP) PO SCH ×2 (10:16→21:31)
[2019-05-19 10:56] LABS: URINE APPEARANCE CLEAR; URINE BILIRUBIN NEGATIVE (NEGATIVE); URINE COLOR YELLOW; URINE GLUCOSE (UA) NEGATIVE (NEGATIVE); URINE KETONE NEGATIVE (NEGATIVE); URINE LEUK ESTERASE NEGATIVE (NEGATIVE); URINE NITRITE NEGATIVE (NEGATIVE); URINE PROTEIN NEGATIVE (NEGATIVE); URINE UROBILINOGEN 0.2 mg/dL (0.2-1.0)
--- NOTE | 2019-05-19 11:13 | PN ---
Progress Note, Physician History of Present Illness: Pt seen and examined at bedside. She is awake and alert. She denies shortness of breath. She denies lower ext edema. - Current Medication List Current Medications: Active Medications Acetaminophen (Tylenol -) 650 mg PO Q6H PRN PRN Reason: PAIN Last Admin: 05/18/19 20:00 Dose: 650 mg Albuterol/Ipratropium (Duoneb -) 1 amp NEB Q6H PRN PRN Reason: SHORTNESS OF BREATH Last Admin: 05/18/19 20:08 Dose: 1 amp Apixaban (Eliquis -) 5 mg PO BID [facility] Last Admin: 05/19/19 10:15 Dose: 5 mg Carvedilol (Coreg -) 6.25 mg PO BID [facility] Last Admin: 05/19/19 10:16 Dose: 6.25 mg Docusate Sodium (Colace -) 100 mg PO TID [facility] Last Admin: 05/19/19 06:25 Dose: 100 mg Duloxetine HCl (Cymbalta -) 30 mg PO BID [facility] Last Admin: 05/19/19 10:15 Dose: 30 mg Gabapentin (Neurontin -) 300 mg PO BID [facility] Last Admin: 05/19/19 10:14 Dose: 300 mg Sodium Chloride (1/2 Normal Saline) 1,000 mls @ 75 mls/hr IV ASDIR [facility] Last Admin: 05/19/19 03:31 Dose: 75 mls/hr Insulin Aspart (Novolog Vial Sliding Scale -) 1 vial SQ ACHS [facility]; Protocol Last Admin: 05/19/19 06:26 Dose: Not Given Levothyroxine Sodium (Synthroid -) 75 mcg PO DAILY@0700 [facility] Last Admin: 05/19/19 06:25 Dose: 75 mcg Magnesium Oxide (Mag-Ox -) 400 mg PO BID [facility] Last Admin: 05/19/19 10:15 Dose: 400 mg Montelukast Sodium (Singulair -) 10 mg PO HS [facility] Last Admin: 05/18/19 21:22 Dose: 10 mg Potassium Chloride (K-Dur -) 20 meq PO DAILY [facility] Last Admin: 05/19/19 10:15 Dose: 20 meq Ranolazine (Ranexa -) 500 mg PO BID [facility] Last Admin: 05/19/19 10:15 Dose: 500 mg - Objective Vital Signs: Vital Signs Temperature 98.6 F 06/19/19 06:00 Pulse Rate 65 05/19/19 06:00 Respiratory Rate 18 05/19/19 06:00 Blood Pressure 126/55 L 05/19/19 06:00 O2 Sat by Pulse Oximetry (%) 96 05/19/19 09:00 Constitutional: Yes: Calm Eyes: Yes: Conjunctiva Clear HENT: Yes: Atraumatic Neck: Yes: Supple Cardiovascular: Yes: S1, S2 Respiratory: Yes: CTA Bilaterally Gastrointestinal: Yes: Soft, Abdomen, Obese Genitourinary: Yes: WNL Musculoskeletal: Yes: WNL Edema: No Integumentary: Yes: WNL Neurological: Yes: Oriented Psychiatric: Yes: Oriented Labs: CBC, BMP 05/18/19 05:22 05/19/19 05:05 Problem List - Problems (1) MU (acute kidney injury) Code(s): N17.9 - ACUTE KIDNEY FAILURE, UNSPECIFIED (2) Syncope Code(s): R55 - SYNCOPE AND COLLAPSE (3) Hypertension Code(s): I10 - ESSENTIAL (PRIMARY) HYPERTENSION Qualifiers: Hypertension type: essential hypertension Qualified Code(s): I10 - Essential (primary) hypertension Assessment/Plan Current Medications Generic Name Dose Route Start Last Admin Trade Name Freq PRN Reason Stop Dose Admin Acetaminophen 650 mg 05/18/19 20:40 05/18/19 20:00 Tylenol - PO 650 mg Q6H PRN Administration PAIN Albuterol/Ipratropium 1 amp 05/18/19 02:25 05/18/19 20:08 Duoneb - NEB 1 amp Q6H PRN Administration SHORTNESS OF BREATH Apixaban 5 mg 05/18/19 10:00 05/19/19 10:15 Eliquis - PO 5 mg BID DOM Administration Carvedilol 6.25 mg 05/18/19 13:56 05/19/19 10:16 Coreg - PO 6.25 mg BID DOM Administration Docusate Sodium 100 mg 05/18/19 06:00 05/19/19 06:25 Colace - PO 100 mg TID DOM Administration Duloxetine HCl 30 mg 05/18/19 10:00 05/19/19 10:15 Cymbalta - PO 30 mg BID DOM Administration Gabapentin 300 mg 05/18/19 10:00 05/19/19 10:14 Neurontin - PO 300 mg BID DOM Administration Sodium Chloride 1,000 mls @ 75 mls/hr 05/18/19 02:45 05/19/19 03:31 1/2 Normal Saline IV 75 mls/hr ASDIR DOM Administration Insulin Aspart 1 vial 05/18/19 07:00 05/19/19 06:26 Novolog Vial Sliding Scale - SQ Not Given ACHS [facility] Protocol Levothyroxine Sodium 75 mcg 05/18/19 07:00 05/19/19 06:25 Synthroid - PO 75 mcg DAILY@0700 DOM Administration Magnesium Oxide 400 mg 05/18/19 10:00 05/19/19 10:15 Mag-Ox - PO 400 mg BID DOM Administration Montelukast Sodium 10 mg 05/18/19 22:00 05/18/19 21:22 Singulair - PO 10 mg HS DOM Administration Potassium Chloride 20 meq 05/18/19 10:00 05/19/19 10:15 K-Dur - PO 20 meq DAILY DOM Administration Ranolazine 500 mg 05/18/19 10:00 05/19/19 10:15 Ranexa - PO 500 mg BID DOM Administration Laboratory Tests 05/19/19 05/19/19 09:30 09:30 Urine Protein Negative Urine Blood Negative Ur Random Sodium 23 L Impression 1. MU 2. syncope 3. asthma 4. chf 5. obesity 6. hypotension 7. a-fib Plan - renal function has improved with fluids - will stop fluids at this point - hold lasix for now - repeat labs in am - chf on echo - kidneys normal on renal ultrasound - pt responded to fluid bolus - ua neg for blood or protein
--- NOTE | 2019-05-19 12:10 | PN ---
Progress Note (short form) - Note Progress Note: s: no chest pain, palps, dyspnea. occasional dizziness, improving. Current Medications Acetaminophen (Tylenol -) 650 mg PO Q6H PRN PRN Reason: PAIN Last Admin: 05/18/19 20:00 Dose: 650 mg Albuterol/Ipratropium (Duoneb -) 1 amp NEB Q6H PRN PRN Reason: SHORTNESS OF BREATH Last Admin: 05/18/19 20:08 Dose: 1 amp Apixaban (Eliquis -) 5 mg PO BID [facility] Last Admin: 05/19/19 10:15 Dose: 5 mg Carvedilol (Coreg -) 6.25 mg PO BID [facility] Last Admin: 05/19/19 10:16 Dose: 6.25 mg Docusate Sodium (Colace -) 100 mg PO TID [facility] Last Admin: 05/19/19 06:25 Dose: 100 mg Duloxetine HCl (Cymbalta -) 30 mg PO BID [facility] Last Admin: 05/19/19 10:15 Dose: 30 mg Gabapentin (Neurontin -) 300 mg PO BID [facility] Last Admin: 05/19/19 10:14 Dose: 300 mg Insulin Aspart (Novolog Vial Sliding Scale -) 1 vial SQ ACHS [facility]; Protocol Last Admin: 05/19/19 11:39 Dose: 2 units Levothyroxine Sodium (Synthroid -) 75 mcg PO DAILY@0700 [facility] Last Admin: 05/19/19 06:25 Dose: 75 mcg Magnesium Oxide (Mag-Ox -) 400 mg PO BID [facility] Last Admin: 05/19/19 10:15 Dose: 400 mg Montelukast Sodium (Singulair -) 10 mg PO HS [facility] Last Admin: 05/18/19 21:22 Dose: 10 mg Potassium Chloride (K-Dur -) 20 meq PO DAILY [facility] Last Admin: 05/19/19 10:15 Dose: 20 meq Ranolazine (Ranexa -) 500 mg PO BID [facility] Last Admin: 05/19/19 10:15 Dose: 500 mg Vital Signs Period Temp Pulse Resp BP Sys/Mcgrath Pulse Ox Last 24 Hr 97.9 F-98.8 F 65-97 18-20 105-146/55-69 95-96 Constitutional: Yes: No Distress Eyes: Yes: Conjunctiva Clear Neck: Yes: Trachea Midline Respiratory: Yes: dec breath sounds at bases bilaterally Gastrointestinal: Yes: Soft, Abdomen, Obese (obese,NT) Cardiovascular: Yes: Regular Rate and Rhythm JVD: no Carotid Bruit: No PMI: Non-Displaced Heart Sounds: Yes: S1, S2 (RRR, no murmurs) Edema: no Peripheral Pulses WNL: Yes Neurological: Yes: Alert, Oriented no jaundice diaphoresis Psychiatric: Yes: WNL Echo: Report Reviewed ( Office May 2018--> moderately reduced LVEF, No sig valve disease.) Prior Cardiac Procedures: Cardiac Catheterization (non-obstructive CAD) echo 03/2019: lve, sev dec lvef, global hk, vamsi, rv tds, no sig valve path echo 05/2019 tds, mildly dilated LV, severe global hypokinesis, RV nl CXR: clear lungs tele: sr, occ pvcs EKG: sinus, nl intervals, lvh, lat twis a/p: 59F with NICM s/p primary prevention ICD, HTN, asthma here with dizziness, syncope. syncope: -pt appears to be volume depleted with leonardo and hypotension -improving with ivfs and holding norvasc and lasix, monitor sxs - echo severe global hypokinesis, stable -cont tele Elevated troponin - flat trend, indeterminate range with nl ck index, similar to prior baseline values, not c/w ACS Chronic systolic CHF: -appears dry -holding diuretic as above -cont coreg. hold entresto due to leonardo. -mild congestion on CXR -echo in office 05/2018 with lvef moderately reduced, repeat echo here 03/2019 with sev reduced lvef, stable this admission -Routine office interrogation of ICD as outpatient ([employer]), no icd shocks Chronic HTN: -bp low here, holding norvasc while giving ivfs leonardo: -holding diuretics, received IVF, improving -renal following paroxysmal afib - cont eliquis, bb HLD - cont statin
[2019-05-19] MEDS: MONTELUKAST NA 10 MG TABLET PO SCH (21:31)
--- NOTE | 2019-05-19 22:01 | PN ---
Progress Note, Physician History of Present Illness: Pt complains of lightheadedness - Current Medication List Current Medications: Active Medications Acetaminophen (Tylenol -) 650 mg PO Q6H PRN PRN Reason: PAIN Last Admin: 05/18/19 20:00 Dose: 650 mg Albuterol/Ipratropium (Duoneb -) 1 amp NEB Q6H PRN PRN Reason: SHORTNESS OF BREATH Last Admin: 05/18/19 20:08 Dose: 1 amp Apixaban (Eliquis -) 5 mg PO BID [facility] Last Admin: 05/19/19 21:31 Dose: 5 mg Carvedilol (Coreg -) 6.25 mg PO BID [facility] Last Admin: 05/19/19 21:31 Dose: 6.25 mg Docusate Sodium (Colace -) 100 mg PO TID [facility] Last Admin: 05/19/19 13:56 Dose: 100 mg Duloxetine HCl (Cymbalta -) 30 mg PO BID [facility] Last Admin: 05/19/19 21:31 Dose: 30 mg Gabapentin (Neurontin -) 300 mg PO BID [facility] Last Admin: 05/19/19 21:31 Dose: 300 mg Insulin Aspart (Novolog Vial Sliding Scale -) 1 vial SQ ACHS [facility]; Protocol Last Admin: 05/19/19 21:39 Dose: 2 units Levothyroxine Sodium (Synthroid -) 75 mcg PO DAILY@0700 [facility] Last Admin: 05/19/19 06:25 Dose: 75 mcg Magnesium Oxide (Mag-Ox -) 400 mg PO BID [facility] Last Admin: 05/19/19 21:31 Dose: 400 mg Montelukast Sodium (Singulair -) 10 mg PO HS [facility] Last Admin: 05/19/19 21:31 Dose: 10 mg Potassium Chloride (K-Dur -) 20 meq PO DAILY [facility] Last Admin: 05/19/19 10:15 Dose: 20 meq Ranolazine (Ranexa -) 500 mg PO BID [facility] Last Admin: 05/19/19 21:31 Dose: 500 mg - Objective Vital Signs: Vital Signs Temperature 98.6 F 05/19/19 18:00 Pulse Rate 87 05/19/19 18:00 Respiratory Rate 18 05/19/19 18:00 Blood Pressure 113/63 05/19/19 18:00 O2 Sat by Pulse Oximetry (%) 96 05/19/19 09:00 Constitutional: Yes: Obese Neck: Yes: WNL, Supple Cardiovascular: Yes: WNL, Regular Rate and Rhythm Respiratory: Yes: WNL, Regular, CTA Bilaterally Gastrointestinal: Yes: WNL, Normal Bowel Sounds, Soft, Abdomen, Obese Edema: No Labs: CBC, BMP 05/18/19 05:22 05/19/19 05:05 Problem List - Problems (1) Syncope Assessment/Plan: Slight elevation of troponin/cpk ?Due to dehydration Lasix on hold Echo showed global hypokinesis Carotid doppler did not show any significant stenosis Code(s): R55 - SYNCOPE AND COLLAPSE (2) MU (acute kidney injury) Assessment/Plan: Pt is hypotensive and volume depleted Cont IVF Cont to monitor Monitor electrolytes Renal US unremarkable Code(s): N17.9 - ACUTE KIDNEY FAILURE, UNSPECIFIED (3) Chronic systolic CHF (congestive heart failure), NYHA class 3 Assessment/Plan: Lasix on hold due to volume depletion COnt to monitor Code(s): I50.22 - CHRONIC SYSTOLIC (CONGESTIVE) HEART FAILURE (4) Paroxysmal A-fib Assessment/Plan: Heart rate controlled Cont eliquis Code(s): I48.0 - PAROXYSMAL ATRIAL FIBRILLATION (5) COPD (chronic obstructive pulmonary disease) Assessment/Plan: Cont inhalers Code(s): J44.9 - CHRONIC OBSTRUCTIVE PULMONARY DISEASE, UNSPECIFIED Qualifiers: COPD type: chronic bronchitis Chronic bronchitis type: unspecified Qualified Code(s): J42 - Unspecified chronic bronchitis (6) Cardiomyopathy Assessment/Plan: S/P ICD placement Code(s): I42.9 - CARDIOMYOPATHY, UNSPECIFIED (7) Diabetes Assessment/Plan: Cont sliding scale Metformin on hold due to ARF Code(s): E11.9 - TYPE 2 DIABETES MELLITUS WITHOUT COMPLICATIONS Qualifiers: Diabetes mellitus type: type 2 (8) Hyperlipidemia Assessment/Plan: Lipitor on hold due to elevated CPK Code(s): E78.5 - HYPERLIPIDEMIA, UNSPECIFIED (9) Hypertension Assessment/Plan: BP hypotensive Cont to monitor Code(s): I10 - ESSENTIAL (PRIMARY) HYPERTENSION Qualifiers: Hypertension type: essential hypertension Qualified Code(s): I10 - Essential (primary) hypertension (10) Hypothyroidism Assessment/Plan: Cont levothyroxine Code(s): E03.9 - HYPOTHYROIDISM, UNSPECIFIED (11) ICD (implantable cardioverter-defibrillator) in place Code(s): Z95.810 - PRESENCE OF AUTOMATIC (IMPLANTABLE) CARDIAC DEFIBRILLATOR (12) Morbid obesity Code(s): E66.01 - MORBID (SEVERE) OBESITY DUE TO EXCESS CALORIES
--- NOTE | 2019-05-20 00:05 | CONSULT ---
Consult - text type - Consultation Consultation Note: NEUROLOGY CONSULTATION is greatly appreciated: This 59 yo RH woman with complex h/o HTN, DM, Chol, hypothyroidism; depression; COPD; ASHD, S/P ME's. S/P stents, AFib (?) and ischemic cardiomyopathy is maintained on: Atorvastatin; Duloxetine; Insulin; Levothyroxine; Linzess; Montelukast; Albuterol; Amlodipine; SYMBICORT; Jentadueto; Apixaban; clobenzaprine; Loratadine; Ranexa; Carvedilol 12.5 mg PO BID; Gabapentin 300 mg PO BID; Furosemide [Lasix -] 40 mg PO BID. Admitted after 3 episodes of syncope. Few days of waxing and waning lightheadedness, EVEN in BED and CHAIR but increased by standing and walking. After increased lightheadedness Pt developed profuse diaphoresis, blurred and murdock vision and LOC. Rapidly reoriented. ROS: sig for chronic numbness, weakness and dropping things from both hands. No numbness in the feet. CT of head (reviewed): Mild atrophy and scattered microvascular changes. Carotid duplex doppler: Mild intimal thickening without sig hemodynamic changes. EXAM: Obese. Neck supple. No bruits. Cor reg. No head trauma. + right knee trauma. s/p R TKR. Exophthalmus. B/L Tinel's NEURO: MS/speech: Normal CN II-XII: Normal aside from exophthalmus. No nystagmus Motor: No drift or tremor. Normal strength, bulk, tone. Absent AJ's. Toes downgoing Coord: No FTN dystaxia Sensory: Reduced pinprick digits II, III B/L, Normal vibration in feet. Gait: Deferred. IMP: Non-focal exam sig for B/L Carpal Tunnel Syndromes. Syncope, probably on a multifactorial basis including reduced EF%, Antihypertensive meds; Orthostatic hypotension; possible diabetic dysautonomia. R/O Bradyarrhythmia. SUGGEST: Continue telemetry Follow orthostatic BP's. Update Echo for EF. Out patient eval and Rx of carpal tunnel syndromes. Thank you very much, Michael Rojas MD
[2019-05-20] MEDS: DOCUSATE SODIUM 100 MG CAPSULE (FP) PO SCH ×3 (07:00→22:30)
[2019-05-20] MEDS: LEVOTHYROXINE NA 75 MCG TABLET (FP) PO SCH (07:00)
[2019-05-20] MEDS: INSULIN SLIDING SCALE (NOVOLOG) 1 VIAL SQ SCH ×4 (07:01→23:00)
[2019-05-20 07:18] LABS: ALBUMIN 3.5 g/dl (3.4-5.0); BILIRUBIN,TOTAL 0.4 mg/dL (0.2-1); BLOOD UREA NITROGEN 16.5 mg/dL (7-18); CALCIUM 9.3 mg/dL (8.5-10.1); CREATININE 1.3 mg/dL (0.55-1.3); POTASSIUM 4.1 mmol/L (3.5-5.1); TOT PROT 6.6 g/dl (6.4-8.2)
[2019-05-20] MEDS: APIXABAN 5 MG TABLET PO SCH ×2 (09:59→22:29)
[2019-05-20] MEDS: GABAPENTIN 300 MG CAPSULE (FP) PO SCH ×2 (09:59→22:29)
[2019-05-20] MEDS: POTASSIUM CHLORIDE TABS 20 MEQ TABLET.ER (FP) PO SCH (09:59)
[2019-05-20] MEDS: CARVEDILOL 12.5 MG TABLET (FP) PO SCH ×2 (09:59→22:29)
[2019-05-20] MEDS: RANOLAZINE E.R. 500 MG TABLET (FP) PO SCH ×2 (09:59→22:30)
[2019-05-20] MEDS: MAGNESIUM OXIDE 400 MG TABLET (FP) PO SCH ×2 (09:59→22:30)
[2019-05-20] MEDS: DULoxetine HCL 30 MG CAPSULE.DR PO SCH ×2 (10:00→22:30)
[2019-05-20] MEDS ORDERED: INSULIN (NOVOLOG) ASPART 100 UNITS/ML 10ML VIAL ONE ×4 (11:30→17:23)
--- NOTE | 2019-05-20 12:27 | PN ---
Progress Note (short form) - Note Progress Note: s: no chest pain, palps, dyspnea. occasional dizziness, improving. Current Medications Generic Name Dose Route Start Last Admin Trade Name Freq PRN Reason Stop Dose Admin Acetaminophen 650 mg 05/18/19 20:40 05/18/19 20:00 Tylenol - PO 650 mg Q6H PRN Administration PAIN Albuterol/Ipratropium 1 amp 05/18/19 02:25 05/18/19 20:08 Duoneb - NEB 1 amp Q6H PRN Administration SHORTNESS OF BREATH Apixaban 5 mg 05/18/19 10:00 05/20/19 09:59 Eliquis - PO 5 mg BID DOM Administration Carvedilol 6.25 mg 05/18/19 13:56 05/20/19 09:59 Coreg - PO 6.25 mg BID DOM Administration Docusate Sodium 100 mg 05/18/19 06:00 05/20/19 07:00 Colace - PO 100 mg TID DOM Administration Duloxetine HCl 30 mg 05/18/19 10:00 05/20/19 10:00 Cymbalta - PO 30 mg BID DOM Administration Gabapentin 300 mg 05/18/19 10:00 05/20/19 09:59 Neurontin - PO 300 mg BID DOM Administration Insulin Aspart 1 vial 05/18/19 07:00 05/20/19 11:33 Novolog Vial Sliding Scale - SQ 2 units ACHS DOM Administration Protocol Levothyroxine Sodium 75 mcg 05/18/19 07:00 05/20/19 07:00 Synthroid - PO 75 mcg DAILY@0700 DOM Administration Magnesium Oxide 400 mg 05/18/19 10:00 05/20/19 09:59 Mag-Ox - PO 400 mg BID DOM Administration Montelukast Sodium 10 mg 05/18/19 22:00 05/19/19 21:31 Singulair - PO 10 mg HS DOM Administration Potassium Chloride 20 meq 05/18/19 10:00 05/20/19 09:59 K-Dur - PO 20 meq DAILY DOM Administration Ranolazine 500 mg 05/18/19 10:00 05/20/19 09:59 Ranexa - PO 500 mg BID DOM Administration Vital Signs Period Temp Pulse Resp BP Sys/Mcgrath Pulse Ox Last 24 Hr 98.1 F-98.8 F 81-90 18-20 98-130/54-72 96-98 Constitutional: Yes: No Distress Eyes: Yes: Conjunctiva Clear Neck: Yes: Trachea Midline Respiratory: cta bl nl eff Gastrointestinal: Yes: Soft, Abdomen, Obese (obese,NT) Cardiovascular: Yes: Regular Rate and Rhythm JVD: no Heart Sounds: Yes: S1, S2 (RRR, no murmurs) Edema: no Neurological: Yes: Alert, Oriented no jaundice diaphoresis Psychiatric: Yes: WNL Laboratory Last Values WBC 7.8 K/mm3 (4.0-10.0) 05/18/19 05:22 RBC 4.78 M/mm3 (3.60-5.2) 05/18/19 05:22 Hgb 12.9 GM/dL (10.7-15.3) 05/18/19 05:22 Hct 39.3 % (32.4-45.2) 05/18/19 05:22 MCV 82.4 fl (80-96) 05/18/19 05:22 MCH 27.0 pg (25.7-33.7) 05/18/19 05:22 MCHC 32.8 g/dl (32.0-36.0) 05/18/19 05:22 RDW 17.6 % (11.6-15.6) H 05/18/19 05:22 Plt Count 182 K/MM3 (134-434) 05/18/19 05:22 MPV 9.4 fl (7.5-11.1) 05/18/19 05:22 Absolute Neuts (auto) 3.8 K/mm3 (1.5-8.0) 05/18/19 05:22 Neutrophils % 48.6 % (42.8-82.8) 05/18/19 05:22 Lymphocytes % 40.6 % (8-40) H 05/18/19 05:22 Monocytes % 8.4 % (3.8-10.2) 05/18/19 05:22 Eosinophils % 1.4 % (0-4.5) 05/18/19 05:22 Basophils % 1.0 % (0-2.0) 05/18/19 05:22 Nucleated RBC % 0 % (0-0) 05/18/19 05:22 Sodium 138 mmol/L (136-145) 05/20/19 05:03 Potassium 4.1 mmol/L (3.5-5.1) 05/20/19 05:03 Chloride 101 mmol/L (98-107) 05/20/19 05:03 Carbon Dioxide 29 mmol/L (21-32) 05/20/19 05:03 Anion Gap 7 MMOL/L (8-16) L 05/20/19 05:03 BUN 16.5 mg/dL (7-18) 05/20/19 05:03 Creatinine 1.3 mg/dL (0.55-1.3) 05/20/19 05:03 Est GFR (CKD-EPI)AfAm 52.00 05/20/19 05:03 Est GFR (CKD-EPI)NonAf 44.87 05/20/19 05:03 POC Glucometer 160 UNITS (80-120) 05/20/19 11:23 Random Glucose 162 mg/dL (74-106) H 05/20/19 05:03 Calcium 9.3 mg/dL (8.5-10.1) 05/20/19 05:03 Total Bilirubin 0.4 mg/dL (0.2-1) 05/20/19 05:03 AST 9 U/L (15-37) L 05/20/19 05:03 ALT 11 U/L (13-61) L 05/20/19 05:03 Alkaline Phosphatase 78 U/L (45-117) 05/20/19 05:03 Creatine Kinase 131 U/L (26-192) 05/20/19 05:03 Creatine Kinase Index 0.5 % (0.0-5.0) 05/19/19 05:05 CK-MB (CK-2) < 1.0 ng/mL (0.5-3.6) 05/19/19 05:05 Troponin I 0.09 ng/ml (0.00-0.05) H 05/20/19 05:03 B-Natriuretic Peptide 124.7 pg/ml (5-125) 05/17/19 23:30 Total Protein 6.6 g/dl (6.4-8.2) 05/20/19 05:03 Albumin 3.5 g/dl (3.4-5.0) 05/20/19 05:03 Urine Color Yellow 05/19/19 09:30 Urine Appearance Clear 05/19/19 09:30 Urine pH 5.0 (5.0-8.0) 05/19/19 09:30 Ur Specific [place] 1.006 (1.010-1.035) L 05/19/19 09:30 Urine Protein Negative (NEGATIVE) 05/19/19 09:30 Urine Glucose (UA) Negative (NEGATIVE) 05/19/19 09:30 Urine Ketones Negative (NEGATIVE) 05/19/19 09:30 Urine Blood Negative (NEGATIVE) 05/19/19 09:30 Urine Nitrite Negative (NEGATIVE) 05/19/19 09:30 Urine Bilirubin Negative (NEGATIVE) 05/19/19 09:30 Urine Urobilinogen 0.2 mg/dL (0.2-1.0) 05/19/19 09:30 Ur Leukocyte Esterase Negative (NEGATIVE) 05/19/19 09:30 Ur Random Creatinine 63.0 mg/dL (30-150) 05/19/19 09:30 Ur Random Sodium 23 MMOL/L (40-220) L 05/19/19 09:30 Ur Random Potassium 12.4 MMOL/L (25-125) L 05/19/19 09:30 Ur Random Chloride 18 MMOL/L (110-250) L 05/19/19 09:30 Echo: Report Reviewed ( Office May 2018--> moderately reduced LVEF, No sig valve disease.) Prior Cardiac Procedures: Cardiac Catheterization (non-obstructive CAD) echo 03/2019: lve, sev dec lvef, global hk, vamsi, rv tds, no sig valve path echo 05/2019 tds, mildly dilated LV, severe global hypokinesis, RV nl CXR: clear lungs tele: sr EKG: sinus, nl intervals, lvh, lat twis a/p: 59F with NICM s/p primary prevention ICD, HTN, asthma here with dizziness, syncope. syncope: -pt appears to be volume depleted with leonardo and hypotension -improved with ivfs and holding norvasc and lasix, monitor sxs -echo severe global hypokinesis, stable -tele benign Elevated troponin - flat trend, indeterminate range with nl ck index, similar to prior baseline values, not c/w ACS Chronic systolic CHF: -appears dry -holding diuretic as above -cont coreg. hold entresto due to leonardo. -echo in office 05/2018 with lvef moderately reduced, repeat echo here 03/2019 with sev reduced lvef, stable this admission -Routine office interrogation of ICD as outpatient ([employer]), no icd shocks -when cr stable, resume entresto and lasix (was on 40 bid, can reduce to 40 qd) Chronic HTN: -bp low here, holding norvasc leonardo: -holding diuretics, received IVF, improved -renal following paroxysmal afib - cont eliquis, bb HLD - cont statin
--- NOTE | 2019-05-20 16:55 | PN ---
Progress Note, Physician History of Present Illness: Pt seen and examined at bedside. She is awake and alert. She denies shortness of breath. - Current Medication List Current Medications: Active Medications Acetaminophen (Tylenol -) 650 mg PO Q6H PRN PRN Reason: PAIN Last Admin: 05/18/19 20:00 Dose: 650 mg Albuterol/Ipratropium (Duoneb -) 1 amp NEB Q6H PRN PRN Reason: SHORTNESS OF BREATH Last Admin: 05/18/19 20:08 Dose: 1 amp Apixaban (Eliquis -) 5 mg PO BID [facility] Last Admin: 05/20/19 09:59 Dose: 5 mg Carvedilol (Coreg -) 6.25 mg PO BID [facility] Last Admin: 05/20/19 09:59 Dose: 6.25 mg Docusate Sodium (Colace -) 100 mg PO TID [facility] Last Admin: 05/20/19 14:51 Dose: 100 mg Duloxetine HCl (Cymbalta -) 30 mg PO BID [facility] Last Admin: 05/20/19 10:00 Dose: 30 mg Gabapentin (Neurontin -) 300 mg PO BID [facility] Last Admin: 05/20/19 09:59 Dose: 300 mg Insulin Aspart (Novolog Vial Sliding Scale -) 1 vial SQ ACHS [facility]; Protocol Last Admin: 05/20/19 11:33 Dose: 2 units Levothyroxine Sodium (Synthroid -) 75 mcg PO DAILY@0700 [facility] Last Admin: 05/20/19 07:00 Dose: 75 mcg Magnesium Oxide (Mag-Ox -) 400 mg PO BID [facility] Last Admin: 05/20/19 09:59 Dose: 400 mg Montelukast Sodium (Singulair -) 10 mg PO HS [facility] Last Admin: 05/19/19 21:31 Dose: 10 mg Potassium Chloride (K-Dur -) 20 meq PO DAILY [facility] Last Admin: 05/20/19 09:59 Dose: 20 meq Ranolazine (Ranexa -) 500 mg PO BID [facility] Last Admin: 05/20/19 09:59 Dose: 500 mg - Objective Vital Signs: Vital Signs Temperature 98.5 F 05/20/19 14:00 Pulse Rate 78 05/20/19 14:00 Respiratory Rate 18 05/20/19 14:00 Blood Pressure 110/72 05/20/19 14:00 O2 Sat by Pulse Oximetry (%) 96 05/20/19 09:00 Constitutional: Yes: Calm Eyes: Yes: Conjunctiva Clear HENT: Yes: Atraumatic Neck: Yes: Supple Cardiovascular: Yes: S1, S2 Respiratory: Yes: CTA Bilaterally Gastrointestinal: Yes: Normal Bowel Sounds, Soft Genitourinary: Yes: WNL Musculoskeletal: Yes: WNL Edema: No Neurological: Yes: Oriented Psychiatric: Yes: Oriented Labs: CBC, BMP 05/18/19 05:22 05/20/19 05:03 Problem List - Problems (1) MU (acute kidney injury) Code(s): N17.9 - ACUTE KIDNEY FAILURE, UNSPECIFIED (2) Syncope Code(s): R55 - SYNCOPE AND COLLAPSE (3) Hypertension Code(s): I10 - ESSENTIAL (PRIMARY) HYPERTENSION Qualifiers: Hypertension type: essential hypertension Qualified Code(s): I10 - Essential (primary) hypertension Assessment/Plan Impression 1. MU 2. syncope 3. asthma 4. chf 5. obesity 6. hypotension 7. a-fib Plan - renal function stabilizing - repet labs in am - will likely restart lasix at 40 mg daily tomorrow - cardio input appreciated - ua neg for blood or protein
--- NOTE | 2019-05-20 20:08 | PN ---
Progress Note, Physician - Current Medication List Current Medications: Active Medications Acetaminophen (Tylenol -) 650 mg PO Q6H PRN PRN Reason: PAIN Last Admin: 05/18/19 20:00 Dose: 650 mg Albuterol/Ipratropium (Duoneb -) 1 amp NEB Q6H PRN PRN Reason: SHORTNESS OF BREATH Last Admin: 05/18/19 20:08 Dose: 1 amp Apixaban (Eliquis -) 5 mg PO BID [facility] Last Admin: 05/20/19 09:59 Dose: 5 mg Carvedilol (Coreg -) 6.25 mg PO BID [facility] Last Admin: 05/20/19 09:59 Dose: 6.25 mg Docusate Sodium (Colace -) 100 mg PO TID [facility] Last Admin: 05/20/19 14:51 Dose: 100 mg Duloxetine HCl (Cymbalta -) 30 mg PO BID [facility] Last Admin: 05/20/19 10:00 Dose: 30 mg Gabapentin (Neurontin -) 300 mg PO BID [facility] Last Admin: 05/20/19 09:59 Dose: 300 mg Insulin Aspart (Novolog Vial Sliding Scale -) 1 vial SQ [facility]; Protocol Last Admin: 05/20/19 17:20 Dose: 2 units Levothyroxine Sodium (Synthroid -) 75 mcg PO DAILY@0700 [facility] Last Admin: 05/20/19 07:00 Dose: 75 mcg Magnesium Oxide (Mag-Ox -) 400 mg PO BID [facility] Last Admin: 05/20/19 09:59 Dose: 400 mg Montelukast Sodium (Singulair -) 10 mg PO [facility] Last Admin: 05/19/19 21:31 Dose: 10 mg Potassium Chloride (K-Dur -) 20 meq PO DAILY [facility] Last Admin: 05/20/19 09:59 Dose: 20 meq Ranolazine (Ranexa -) 500 mg PO BID [facility] Last Admin: 05/20/19 09:59 Dose: 500 mg - Objective Vital Signs: Vital Signs Temperature 98.4 F 05/20/19 17:00 Pulse Rate 84 05/20/19 17:00 Respiratory Rate 20 05/20/19 17:00 Blood Pressure 109/68 05/20/19 17:00 O2 Sat by Pulse Oximetry (%) 96 05/20/19 09:00 Labs: CBC, BMP 05/18/19 05:22 05/20/19 05:03 Problem List - Problems (1) Syncope Code(s): R55 - SYNCOPE AND COLLAPSE (2) MU (acute kidney injury) Code(s): N17.9 - ACUTE KIDNEY FAILURE, UNSPECIFIED (3) Chronic systolic CHF (congestive heart failure), NYHA class 3 Code(s): I50.22 - CHRONIC SYSTOLIC (CONGESTIVE) HEART FAILURE (4) Paroxysmal A-fib Code(s): I48.0 - PAROXYSMAL ATRIAL FIBRILLATION (5) COPD (chronic obstructive pulmonary disease) Code(s): J44.9 - CHRONIC OBSTRUCTIVE PULMONARY DISEASE, UNSPECIFIED Qualifiers: COPD type: chronic bronchitis Chronic bronchitis type: unspecified Qualified Code(s): J42 - Unspecified chronic bronchitis (6) Cardiomyopathy Code(s): I42.9 - CARDIOMYOPATHY, UNSPECIFIED (7) Diabetes Code(s): E11.9 - TYPE 2 DIABETES MELLITUS WITHOUT COMPLICATIONS Qualifiers: Diabetes mellitus type: type 2 (8) Hyperlipidemia Code(s): E78.5 - HYPERLIPIDEMIA, UNSPECIFIED (9) Hypertension Code(s): I10 - ESSENTIAL (PRIMARY) HYPERTENSION Qualifiers: Hypertension type: essential hypertension Qualified Code(s): I10 - Essential (primary) hypertension (10) Hypothyroidism Code(s): E03.9 - HYPOTHYROIDISM, UNSPECIFIED (11) ICD (implantable cardioverter-defibrillator) in place Code(s): Z95.810 - PRESENCE OF AUTOMATIC (IMPLANTABLE) CARDIAC DEFIBRILLATOR (12) Morbid obesity Code(s): E66.01 - MORBID (SEVERE) OBESITY DUE TO EXCESS CALORIES
[2019-05-20] MEDS: MONTELUKAST NA 10 MG TABLET PO SCH (22:30)
[2019-05-21] MEDS: INSULIN SLIDING SCALE (NOVOLOG) 1 VIAL SQ SCH ×2 (07:09→12:28)
[2019-05-21] MEDS: DOCUSATE SODIUM 100 MG CAPSULE (FP) PO SCH (07:09)
[2019-05-21] MEDS: LEVOTHYROXINE NA 75 MCG TABLET (FP) PO SCH (07:09)
[2019-05-21 07:33] LABS: BLOOD UREA NITROGEN 11.4 mg/dL (7-18); CALCIUM 9.3 mg/dL (8.5-10.1); CREATININE 1.1 mg/dL (0.55-1.3); POTASSIUM 4.2 mmol/L (3.5-5.1)
[2019-05-21 09:18] VITALS: BP 109/70; PULSE 81; TEMP 98.5
--- NOTE | 2019-05-21 09:52 | PN ---
Progress Note, Physician Chief Complaint: seen and examined No CP, SOB TELE: NSR - Current Medication List Current Medications: Active Medications Acetaminophen (Tylenol -) 650 mg PO Q6H PRN PRN Reason: PAIN Last Admin: 05/18/19 20:00 Dose: 650 mg Albuterol/Ipratropium (Duoneb -) 1 amp NEB Q6H PRN PRN Reason: SHORTNESS OF BREATH Last Admin: 05/18/19 20:08 Dose: 1 amp Apixaban (Eliquis -) 5 mg PO BID [facility] Last Admin: 05/20/19 22:29 Dose: 5 mg Carvedilol (Coreg -) 6.25 mg PO BID [facility] Last Admin: 05/20/19 22:29 Dose: 6.25 mg Docusate Sodium (Colace -) 100 mg PO TID [facility] Last Admin: 05/21/19 07:09 Dose: 100 mg Duloxetine HCl (Cymbalta -) 30 mg PO BID [facility] Last Admin: 05/20/19 22:30 Dose: 30 mg Gabapentin (Neurontin -) 300 mg PO BID [facility] Last Admin: 05/20/19 22:29 Dose: 300 mg Insulin Aspart (Novolog Vial Sliding Scale -) 1 vial SQ ACHS [facility]; Protocol Last Admin: 05/21/19 07:09 Dose: 2 units Levothyroxine Sodium (Synthroid -) 75 mcg PO DAILY@0700 [facility] Last Admin: 05/21/19 07:09 Dose: 75 mcg Magnesium Oxide (Mag-Ox -) 400 mg PO BID [facility] Last Admin: 05/20/19 22:30 Dose: 400 mg Montelukast Sodium (Singulair -) 10 mg PO HS [facility] Last Admin: 05/20/19 22:30 Dose: 10 mg Potassium Chloride (K-Dur -) 20 meq PO DAILY [facility] Last Admin: 05/20/19 09:59 Dose: 20 meq Ranolazine (Ranexa -) 500 mg PO BID [facility] Last Admin: 05/20/19 22:30 Dose: 500 mg - Objective Vital Signs: Vital Signs Temperature 98.5 F 05/21/19 09:15 Pulse Rate 81 05/21/19 09:15 Respiratory Rate 18 05/21/19 09:15 Blood Pressure 109/70 05/21/19 09:15 O2 Sat by Pulse Oximetry (%) 96 05/21/19 09:00 Constitutional: Yes: Calm Cardiovascular: Yes: Regular Rate and Rhythm Respiratory: Yes: CTA Bilaterally, Other (no active wheezing) Gastrointestinal: Yes: Soft Edema: No Neurological: Yes: Alert Labs: CBC, BMP 05/18/19 05:22 05/21/19 05:30 Laboratory Tests 05/18/19 05/21/19 05:22 05:30 WBC 7.8 Hgb 12.9 Plt Count 182 Sodium 137 Potassium 4.2 Creatinine 1.1 - ....Imaging EKG: Image Reviewed Assessment/Plan Echo: Report Reviewed ( Office May 2018--> moderately reduced LVEF, No sig valve disease.) Prior Cardiac Procedures: Cardiac Catheterization (non-obstructive CAD) echo 03/2019: lve, sev dec lvef, global hk, vmasi, rv tds, no sig valve path echo 05/2019 tds, mildly dilated LV, severe global hypokinesis, RV nl CXR: clear lungs tele: sr EKG: sinus, nl intervals, lvh, lat twis 59F with NICM s/p primary prevention ICD, HTN, asthma here with dizziness, syncope. Syncope: -pt appears to be volume depleted with mu and hypotension -improved with ivfs and holding norvasc and lasix, monitor sxs -echo severe global hypokinesis, stable -tele benign Elevated troponin: - flat trend, indeterminate range with nl ck index, similar to prior baseline values, not c/w ACS Chronic systolic CHF: -appears dry -holding diuretic as above -cont coreg. hold entresto due to mu. -echo in office 05/2018 with lvef moderately reduced, repeat echo here 03/2019 with sev reduced lvef, stable this admission -Routine office interrogation of ICD as outpatient ([employer]), no icd shocks -when cr stable, resume entresto and lasix (was on 40 bid, can reduce to 40 qd) Chronic HTN: -bp low here, holding norvasc MU: -holding diuretics, received IVF, improved -renal following Paroxysmal afib: - cont eliqugolden bb HLD: - cont statin
[2019-05-21] MEDS: APIXABAN 5 MG TABLET PO SCH (09:54)
[2019-05-21] MEDS: POTASSIUM CHLORIDE TABS 20 MEQ TABLET.ER (FP) PO SCH (09:54)
[2019-05-21] MEDS: RANOLAZINE E.R. 500 MG TABLET (FP) PO SCH (09:54)
[2019-05-21] MEDS: CARVEDILOL 12.5 MG TABLET (FP) PO SCH (09:54)
[2019-05-21] MEDS: GABAPENTIN 300 MG CAPSULE (FP) PO SCH (09:54)
[2019-05-21] MEDS: MAGNESIUM OXIDE 400 MG TABLET (FP) PO SCH (09:54)
[2019-05-21] MEDS: DULoxetine HCL 30 MG CAPSULE.DR PO SCH (09:55)
--- NOTE | 2019-05-21 12:28 | DS ---
Physical Examination Vital Signs: Vital Signs Temperature 98.5 F 05/21/19 09:15 Pulse Rate 81 05/21/19 09:15 Respiratory Rate 18 05/21/19 09:15 Blood Pressure 109/70 05/21/19 09:15 O2 Sat by Pulse Oximetry (%) 96 05/21/19 09:00 Labs: CBC, BMP 05/18/19 05:22 05/21/19 05:30 Discharge Summary Reason For Visit: SYNCOPE Current Active Problems MU (acute kidney injury) (Acute) Syncope (Acute) HTN CHF COPD GERD Morbid obesity Anemia ICD Hospital Course: The patient is a 59 year old female with a significant PMH of Afib (on Eliquis) , CAD (s/p 2x stents), CHF, diabetes, COPD, asthma, nonischemic cardiomyopathy ( ICD placed), peripeheral neuropathy and morbid obesity who presented to the emergency department for evaluation of syncope. Pt [facility] followed by cardio/neuro/renal. Pt found to have elevated creatinine and lasix was held and it returned to normal. Pt is now to be restarted on lasix however will need close follow up and see her PMD and room service waiter in 1 week. Condition: Good - Instructions Diet, Activity, Other Instructions: 2 gram sodium diet See Dr Reece Lanza in 1 week See your room service waiter in 1 week Disposition: VNS/HOME HEALTH CARE - Home Medications Comprehensive Discharge Medication List: Ambulatory Orders Atorvastatin Ca [Lipitor] 40 mg PO HS 08/09/16 Duloxetine HCl [Cymbalta] 30 mg PO BID 08/09/16 Insulin Glargine,Hum.rec.anlog [Lantus Solostar PEN -] 25 units SQ HS 08/09/16 Linaclotide [Linzess] 290 mcg PO DAILY 08/09/16 Montelukast Na [Singulair -] 10 mg PO HS 08/09/16 Budesonide/Formeterol Fumarate [SYMBICORT 160/4.5mcg -] 2 puff PO DAILY Linagliptin/Metformin HCl [Jentadueto 2.5 mg-1000 mg Tab] 290 mcg PO BID Albuterol 2.5/Ipratropium 0.5 [Duoneb -] 1 neb NEB Q4H #20 vial 06/08/18 Albuterol 2.5/Ipratropium 0.5 [Duoneb -] 1 amp NEB Q6H PRN #90 amp 05/21/19 Apixaban [Eliquis -] 5 mg PO BID #60 tablet 05/21/19 Carvedilol [Coreg -] 12.5 mg PO BID #60 tablet 05/21/19 Docusate Sodium [Colace -] 100 mg PO TID #90 capsule 05/21/19 Furosemide [Lasix] 40 mg PO DAILY #30 tablet 05/21/19 Gabapentin [Neurontin -] 300 mg PO BID #60 capsule 05/21/19 Levothyroxine [Synthroid -] 75 mcg PO DAILY #30 tablet 05/21/19 Magnesium Oxide [Mag-Ox -] 400 mg PO BID #60 tablet 05/21/19 Potassium Chloride [K-Dur -] 20 meq PO DAILY #30 tablet.er 05/21/19 Ranolazine [Ranexa -] 500 mg PO BID #60 tab 05/21/19
--- NOTE | 2019-05-21 13:45 | PN ---
Progress Note, Physician History of Present Illness: Pt seen and examined at bedside. She is awake and alert. She denies shortness of breath. - Current Medication List Current Medications: Active Medications Acetaminophen (Tylenol -) 650 mg PO Q6H PRN PRN Reason: PAIN Last Admin: 05/18/19 20:00 Dose: 650 mg Albuterol/Ipratropium (Duoneb -) 1 amp NEB Q6H PRN PRN Reason: SHORTNESS OF BREATH Last Admin: 05/18/19 20:08 Dose: 1 amp Apixaban (Eliquis -) 5 mg PO BID [facility] Last Admin: 05/21/19 09:54 Dose: 5 mg Carvedilol (Coreg -) 6.25 mg PO BID [facility] Last Admin: 05/21/19 09:54 Dose: 6.25 mg Docusate Sodium (Colace -) 100 mg PO TID [facility] Last Admin: 05/21/19 07:09 Dose: 100 mg Duloxetine HCl (Cymbalta -) 30 mg PO BID [facility] Last Admin: 05/21/19 09:55 Dose: 30 mg Gabapentin (Neurontin -) 300 mg PO BID [facility] Last Admin: 05/21/19 09:54 Dose: 300 mg Insulin Aspart (Novolog Vial Sliding Scale -) 1 vial SQ ACHS [facility]; Protocol Last Admin: 05/21/19 12:28 Dose: Not Given Levothyroxine Sodium (Synthroid -) 75 mcg PO DAILY@0700 [facility] Last Admin: 05/21/19 07:09 Dose: 75 mcg Magnesium Oxide (Mag-Ox -) 400 mg PO BID [facility] Last Admin: 05/21/19 09:54 Dose: 400 mg Montelukast Sodium (Singulair -) 10 mg PO HS [facility] Last Admin: 05/20/19 22:30 Dose: 10 mg Potassium Chloride (K-Dur -) 20 meq PO DAILY [facility] Last Admin: 05/21/19 09:54 Dose: 20 meq Ranolazine (Ranexa -) 500 mg PO BID [facility] Last Admin: 05/21/19 09:54 Dose: 500 mg - Objective Vital Signs: Vital Signs Temperature 98.5 F 05/21/19 09:15 Pulse Rate 81 05/21/19 09:15 Respiratory Rate 18 05/21/19 09:15 Blood Pressure 109/70 05/21/19 09:15 O2 Sat by Pulse Oximetry (%) 96 05/21/19 09:00 Constitutional: Yes: Calm Eyes: Yes: Conjunctiva Clear HENT: Yes: Atraumatic Neck: Yes: Supple Cardiovascular: Yes: S1, S2 Respiratory: Yes: CTA Bilaterally Gastrointestinal: Yes: Soft Genitourinary: Yes: WNL Musculoskeletal: Yes: WNL Edema: LLE: Trace, RLE: Trace Neurological: Yes: Oriented Psychiatric: Yes: Oriented Labs: CBC, BMP 05/18/19 05:22 05/21/19 05:30 Problem List - Problems (1) MU (acute kidney injury) Code(s): N17.9 - ACUTE KIDNEY FAILURE, UNSPECIFIED (2) Syncope Code(s): R55 - SYNCOPE AND COLLAPSE (3) Hypertension Code(s): I10 - ESSENTIAL (PRIMARY) HYPERTENSION Qualifiers: Hypertension type: essential hypertension Qualified Code(s): I10 - Essential (primary) hypertension Assessment/Plan Current Medications Generic Name Dose Route Start Last Admin Trade Name Freq PRN Reason Stop Dose Admin Acetaminophen 650 mg 05/18/19 20:40 05/18/19 20:00 Tylenol - PO 650 mg Q6H PRN Administration PAIN Albuterol/Ipratropium 1 amp 05/18/19 02:25 05/18/19 20:08 Duoneb - NEB 1 amp Q6H PRN Administration SHORTNESS OF BREATH Apixaban 5 mg 05/18/19 10:00 05/21/19 09:54 Eliquis - PO 5 mg BID DOM Administration Carvedilol 6.25 mg 05/18/19 13:56 05/21/19 09:54 Coreg - PO 6.25 mg BID DOM Administration Docusate Sodium 100 mg 05/18/19 06:00 05/21/19 07:09 Colace - PO 100 mg TID DOM Administration Duloxetine HCl 30 mg 05/18/19 10:00 05/21/19 09:55 Cymbalta - PO 30 mg BID DOM Administration Gabapentin 300 mg 05/18/19 10:00 05/21/19 09:54 Neurontin - PO 300 mg BID DOM Administration Insulin Aspart 1 vial 05/18/19 07:00 05/21/19 12:28 Novolog Vial Sliding Scale - SQ Not Given ACHS DOM Protocol Levothyroxine Sodium 75 mcg 05/18/19 07:00 05/21/19 07:09 Synthroid - PO 75 mcg DAILY@0700 DOM Administration Magnesium Oxide 400 mg 05/18/19 10:00 05/21/19 09:54 Mag-Ox - PO 400 mg BID DOM Administration Montelukast Sodium 10 mg 05/18/19 22:00 05/20/19 22:30 Singulair - PO 10 mg HS DOM Administration Potassium Chloride 20 meq 05/18/19 10:00 05/21/19 09:54 K-Dur - PO 20 meq DAILY DOM Administration Ranolazine 500 mg 05/18/19 10:00 05/21/19 09:54 Ranexa - PO 500 mg BID DOM Administration Impression 1. MU 2. syncope 3. asthma 4. chf 5. obesity 6. hypotension 7. a-fib Plan - agree with lasix 40 mg daily - renal function stable - can see as outpt - cardio input appreciated - ua neg for blood or protein - will follow prn
== END 2019-05-21 14:03 | disposition home or self-care (01) | DRG 683 ==
LOC: JER 20:25 → JERBED 05-18 01:14 → J4W 05-18 05:50
PROVIDERS: ADMIT Internal Medicine; ATTEND Internal Medicine
DX: N17.9 Acute kidney failure, unspecified (principal); I42.9 Cardiomyopathy, unspecified; I24.8 Other forms of acute ischemic heart disease; Z68.41 Body mass index [BMI] 40.0-44.9, adult; I50.22 Chronic systolic (congestive) heart failure; R55 Syncope and collapse; E11.42 Type 2 diabetes mellitus with diabetic polyneuropathy; I11.0 Hypertensive heart disease with heart failure; I25.2 Old myocardial infarction; Z95.5 Presence of coronary angioplasty implant and graft; I48.91 Unspecified atrial fibrillation; Z79.01 Long term (current) use of anticoagulants; G47.33 Obstructive sleep apnea (adult) (pediatric); D64.9 Anemia, unspecified; Z87.11 Personal history of peptic ulcer disease; F32.9 Major depressive disorder, single episode, unspecified; J44.9 Chronic obstructive pulmonary disease, unspecified; I25.10 Atherosclerotic heart disease of native coronary artery without angina pectoris; E66.01 Morbid (severe) obesity due to excess calories; Z95.1 Presence of aortocoronary bypass graft; Z96.652 Presence of left artificial knee joint; I48.0 Paroxysmal atrial fibrillation; E03.9 Hypothyroidism, unspecified; Z95.810 Presence of automatic (implantable) cardiac defibrillator; I95.9 Hypotension, unspecified; I87.8 Other specified disorders of veins; E78.5 Hyperlipidemia, unspecified
CPT/HCPCS: 36415; 70450-TC; 71045-TC-FY; 76775-TC; 80048; 80053; 81003; 82436; 82550; 82553; 82565; 82962; 83880; 84133; 84300; 84484; 85025; 93005; 93010; 93306-TC; 93880-TC; 94640; 97116-GP; 97161-GP; 99284-25; J0131

== ENCOUNTER 2019-05-25 04:29 | Inpatient (IN) | payer BC, OTHER ==
--- NOTE | 2019-05-25 04:56 | PDOC ---
History of Present Illness - General Chief Complaint: Shortness of Breath Stated Complaint: S.O.B. Time Seen by Provider: 05/25/19 04:46 History Source: Patient, EMS Exam Limitations: No Limitations - History of Present Illness Initial Comments: 05/25/19 04:49 [id number] with h/o morbid obesity, Afib (on Eliquis), CAD (stents x2), CHF, COPD, asthma, VAHID, NIDDM, and nonischemic cardiomyopathy (ICD placed) who was BIBEMS for SOB, lightheadedness, fainting x1 episode yesterday (05/24) at 3:30pm, subjective fever, and decreased urination all worsening for the past few days. She explains that she was admitted here at [facility], with discharge on 05/21/19, and over the weekend her symptoms began to worsen despite taking all the medications she is supposed to take. She notes she is on Lasix 40 mg daily. She has not followed up with her outpatient doctors since discharge from the hospital - her first appointment is supposed to be for Friday. She denies n/v, n /t/w focally, headache, or other new symptoms. Past History - Past Medical History Allergies/Adverse Reactions: Allergies Allergy/AdvReac Type Severity Reaction Status Date / Time tomato Allergy Mild Hives Verified 05/25/19 04:47 chlorpheniramine Allergy Verified 05/25/19 04:47 cimetidine Allergy Verified 05/25/19 04:47 codeine [Codeine] Allergy Verified 05/25/19 04:47 ibuprofen Allergy Verified 05/25/19 04:47 latex [Latex] Allergy Verified 05/25/19 04:47 Latex, Natural Rubber Allergy Verified 05/25/19 04:47 pseudoephedrine Allergy Verified 05/25/19 04:47 salmeterol xinafoate Allergy Verified 05/25/19 04:47 [From Advair Diskus] shellfish derived Allergy Verified 05/25/19 04:47 Sulfa (Sulfonamide Allergy Verified 05/25/19 04:47 Antibiotics) [Sulfa(Sulfonamide Antibiotics)] Chocolate Allergy Mild Hives Uncoded 05/25/19 04:47 shrimp Allergy Mild Hives Uncoded 05/25/19 04:47 Home Medications: Ambulatory Orders Atorvastatin Ca [Lipitor] 40 mg PO HS 08/09/16 Duloxetine HCl [Cymbalta] 30 mg PO BID 08/09/16 Insulin Glargine,Hum.rec.anlog [Lantus Solostar PEN -] 25 units SQ HS 08/09/16 Linaclotide [Linzess] 290 mcg PO DAILY 08/09/16 Montelukast Na [Singulair -] 10 mg PO HS 08/09/16 Budesonide/Formeterol Fumarate [SYMBICORT 160/4.5mcg -] 2 puff PO DAILY Linagliptin/Metformin HCl [Jentadueto 2.5 mg-1000 mg Tab] 290 mcg PO BID Albuterol 2.5/Ipratropium 0.5 [Duoneb -] 1 amp NEB Q6H PRN #90 amp 05/21/19 Apixaban [Eliquis -] 5 mg PO BID #60 tablet 05/21/19 Carvedilol [Coreg -] 12.5 mg PO BID #60 tablet 05/21/19 Docusate Sodium [Colace -] 100 mg PO TID #90 capsule 05/21/19 Furosemide [Lasix] 40 mg PO DAILY #30 tablet 05/21/19 Gabapentin [Neurontin -] 300 mg PO BID #60 capsule 05/21/19 Levothyroxine [Synthroid -] 75 mcg PO DAILY #30 tablet 05/21/19 Magnesium Oxide [Mag-Ox -] 400 mg PO BID #60 tablet 05/21/19 Potassium Chloride [K-Dur -] 20 meq PO DAILY #30 tablet.er 05/21/19 Ranolazine [Ranexa -] 500 mg PO BID #60 tab 05/21/19 Anemia: Yes Asthma: Yes Cancer: No Cardiac Disorders: Yes (NH X 2, pacemaker) CVA: No COPD: Yes (sleep apnea) CHF: Yes (S/P ICD) DVT: No Dementia: No Diabetes: Yes GI Disorders: Yes (PEPTIC ULCER) Disorders: No HTN: Yes Hypercholesterolemia: Yes Liver Disease: No Psychiatric Problems: Yes (DEPRESSION) Seizures: No Thyroid Disease: Yes - Surgical History Abdominal Surgery: No Appendectomy: No Cardiac Surgery: Yes (pacemaker and stents) Cholecystectomy: Yes Lung Surgery: No Neurologic Surgery: No Orthopedic Surgery: Yes (bilateral knee replacement) - Immunization History Immunization Up to Date: No - Suicide/Smoking/Psychosocial Hx Smoking Status: No Smoking History: Never smoked Have you smoked in the past 12 months: No Number of Cigarettes Smoked Daily: 0 Information on smoking cessation initiated: No Hx Alcohol Use: No Drug/Substance Use Hx: No Substance Use Type: None Hx Substance Use Treatment: No Respiratory Specific PMHX - Complaint Specific PMHX Angina: No Bronchitis: Yes Pneumonia: No Pulmonary Embolus: No TB (Tuberculosis): No Review of Systems - Review of Systems Able to Perform ROS?: Yes Comments:: 05/25/19 05:10 GEN: subjective fever, malaise, generalized weakness, no weight change HEENT: no ear pain, sore throat, vision change, or eye pain CV: lightheadedness, syncope, no chest pain, palpitations, or edema RESP: SOB no cough, or wheezing GI: no abdominal pain, nausea, vomiting, diarrhea, constipation, or white/black/ bloody stool : no dysuria, hematuria, incontinence, retention, bleeding, or discharge MSK: neck pain, no back pain, otherwise muscle weakness/pain, or joint swelling/ pain NEURO: no headache, seizure, vertigo, numbness, tingling, or focal weakness PSYCH: no substance use, no behavior change SKIN: no jaundice, no rash ROS otherwise negative except as noted in HPI *Physical Exam - Vital Signs Last Vital Signs Temp Pulse Resp BP Pulse Ox 98.1 F 100 H 22 H 118/84 97 05/25/19 04:29 05/25/19 04:29 05/25/19 04:29 05/25/19 04:29 05/25/19 04:29 - Physical Exam Comments: 05/25/19 05:12 GENERAL: morbidly obese, nontoxic-appearing, A/Ox4, no distress, answers questions appropriately HEENT: PERRLA, EOMI, a bit dry mucous membranes NECK/BACK: no midline ttp, no spinal stepoff or deformity, no hematoma, full ROM , neck supple CARDIOVASCULAR: distant heart sound likely related to body habitus, regular rate /rhythm, normal S1S2, no MGR, strong peripheral pulses, capillary refill <2 seconds, extremities wwp, no edema LUNGS/RESPIRATORY: no respiratory distress, CTAB GI/ABDOMEN: symmetric [id number], normoactive BS, soft, no ttp, no midline pulsatile masses : no CVA tenderness EXTREMITIES: no muscle atrophy, no acute deformity SKIN: warm and dry, no pallor, no jaundice, no rash, no bruising, no skin breakdown, no cuts, no lesions NEUROLOGICAL: GCS 15, CN II-XII grossly intact, 5/5 strength proximally and distally, no facial droop Heart Score/ECG Review #1 05/25/19 05:22 Sinus rhythm, rate 90, normal axis, OMn=954, LVH, no ischemic ST-T changes ED Treatment Course - LABORATORY CBC & Chemistry Diagram: 05/25/19 05:07 05/25/19 05:10 Medical Decision Making - Medical Decision Making 05/25/19 05:15 [id number] with CHF, COPD, asthma, ACS, p/w report of fainting onto her bed yesterday afternoon. Initial Vital Signs Temp Pulse Resp BP Pulse Ox 98.1 F 100 H 22 H 118/84 97 05/25/19 04:29 05/25/19 04:29 05/25/19 04:29 05/25/19 04:29 05/25/19 04:29 Exam: As noted in Physical Exam section. DDX IBNLT: reflex (neurocardiogenic e.g. vasovagal; situational e.g. micturition /post-tussive/post-exercise; carotid sinus hypersensitivity), cardiovascular ( arrhythmia, conduction abnormality, structural heart disease, PE, etc.), orthostatic hypotension (volume depletion e.g. hemorrhage/vomiting/diarrhea/ diuretics; drugs autonomic failure) or other causes not true syncope d/t subsequent neuro deficit (TIA/CVA, SAH, seizure, metabolic/electrolyte derangement, infection/sepsis/vitals abnormalities, etc. W/U ordered: EKG CXR Head CT C-spine CT, labs as noted below TX ordered: None at this time. EKG: Reviewed; results as noted in ECG Review section. CXR: Vascular congestion, otherwise nothing acute CT Head: Nothing acute CT C-Spine: Nothing acute Vital Signs Temperature 98.6 F 05/25/19 06:14 Pulse Rate 88 05/25/19 06:14 Respiratory Rate 20 05/25/19 06:14 Blood Pressure 95/68 05/25/19 06:14 O2 Sat by Pulse Oximetry (%) 97 05/25/19 06:14 05/25/19 06:30 Patient states remains a little lightheaded, slightly nauseated but not requesting antiemetics. Pending chemistries still; patient will need admission and blank Decision to Admit is placed. Laboratory Tests 05/25/19 05/25/19 05/25/19 05:07 05:07 05:10 WBC 7.4 RBC 4.87 Hgb 13.1 Hct 40.7 MCV 83.5 MCH 27.0 MCHC 32.3 RDW 17.4 H Plt Count 339 D MPV 10.1 Absolute Neuts (auto) 4.3 Neutrophils % 57.5 Lymphocytes % 32.3 D Monocytes % 7.1 Eosinophils % 1.9 Basophils % 1.2 Nucleated RBC % 0 PT with INR 15.90 H INR 1.34 H Sodium 134 L Potassium 4.4 Chloride 98 Carbon Dioxide 27 Anion Gap 9 BUN 17.2 Creatinine 2.6 H Est GFR (CKD-EPI)AfAm 22.49 Est GFR (CKD-EPI)NonAf 19.41 Random Glucose 149 H Calcium 9.5 Magnesium 1.5 L Total Bilirubin 0.4 AST 13 L ALT 12 L Alkaline Phosphatase 83 Creatine Kinase 113 Troponin I 0.05 B-Natriuretic Peptide 302.3 H Total Protein 7.5 Albumin 3.9 Per [place] Syncope Rule: Pt is high risk for ventricular dysrhythmia and/ or . Pt also at higher risk given their older age and comorbidities. The Pt is unsafe for discharge at this time. They require further hospital observation, workup, and treatment. Call is placed to Dr. Lewis for admission. 05/25/19 06:44 *DC/Admit/Observation/Transfer Diagnosis at time of Disposition: Syncope Qualifiers: Syncope type: unspecified Qualified Code(s): R55 - Syncope and collapse - Discharge Dispostion Condition at time of disposition: Guarded Decision to Admit order: Yes - Referrals Referrals: Reece Lanza MD [Primary Care Provider] - - Patient Instructions - Post Discharge Activity
[2019-05-25 06:00] LABS: BASO % 1.2 % (0-2.0); EOS % 1.9 % (0-4.5); HEMATOCRIT 40.7 % (32.4-45.2); HEMOGLOBIN 13.1 GM/dL (10.7-15.3); LYMPH % 32.3 % (8-40); MCHC 32.3 g/dl (32.0-36.0); MEAN CELL VOLUME 83.5 fl (80-96); MEAN PLT VOLUME 10.1 fl (7.5-11.1); MONO % 7.1 % (3.8-10.2); NEUT % 57.5 % (42.8-82.8); PLATELET COUNT 339 K/MM3 (134-434); RBC 4.87 M/mm3 (3.60-5.2); RDW 17.4 % (11.6-15.6); WHITE BLOOD COUNT 7.4 K/mm3 (4.0-10.0)
--- NOTE | 2019-05-25 06:06 | PDOC ---
Attending Attestation - Resident Resident Name: Rekha Rodriguez - ED Attending Attestation I have performed the following: I have examined & evaluated the patient, The case was reviewed & discussed with the resident, I agree w/resident's findings & plan, Exceptions are as noted - HPI HPI: 05/25/19 06:02 59 F with h/o afib on eliquis, CAD/stents, CHF, COPD, asthma, DM, NICM s/p AICD , presenting to ED with SOB, lightheadedness, and syncopal episode. Pt states that she fainted yesterday while in her bedroom. Reports waking up face down on her bed wtih no recollection of how she got there. Today, pt reports SOB and ARNOLD. Also complaining of subjective fevers. Pt was recently admitted to this hospital, discharged 3 days ago. - Physicial Exam PE: 05/25/19 06:06 "GENERAL: Awake, alert, and fully oriented, in no acute distress. HEAD: No signs of trauma EYES: PERRLA, EOMI, sclera anicteric, conjunctiva clear ENT: Auricles normal inspection, hearing grossly normal, nares patent, oropharynx clear without exudates. Moist mucosa NECK: Nontender, no stepoffs, Normal ROM, supple, no lymphadenopathy, JVD, or masses LUNGS: Breath sounds equal, clear to auscultation bilaterally. No wheezes, and no crackles HEART: Regular rate and rhythm, normal S1 and S2, no murmurs, rubs or gallops ABDOMEN: Soft, nontender, normoactive bowel sounds. No guarding, no rebound. No masses EXTREMITIES: Normal range of motion, no edema. No clubbing or cyanosis. No cords, erythema, or tenderness NEUROLOGICAL: Cranial nerves II through XII intact. 5/5 strength and sensation in all extremities, Normal speech, normal gait, normal cerebellar function SKIN: Warm, Dry, normal turgor, no rashes or lesions noted. - Medical Decision Making 05/25/19 06:06 59 F with SOB, ARNOLD, syncopal episode yesterday. - Labs, trop, BNP - CXR - CT head - Consider CTA to r/o PE 05/25/19 06:43 Labs notable for MU with Cr 2.6 from 1.1 Will defer CTA at this time due to MU Suspect syncope was 2/2 dehydration from overdiuresis. Will give gentle fluid bolus
[2019-05-25 06:14] LABS: INR 1.34 (0.83-1.09); PROTHROMBIN TIME (PATIENT) 15.9 SEC (9.7-13.0)
[2019-05-25 06:42] LABS: ALBUMIN 3.9 g/dl (3.4-5.0); BILIRUBIN,TOTAL 0.4 mg/dL (0.2-1); BLOOD UREA NITROGEN 17.2 mg/dL (7-18); CALCIUM 9.5 mg/dL (8.5-10.1); CREATININE 2.6 mg/dL (0.55-1.3); MAGNESIUM 1.5 mg/dL (1.8-2.4); N-TERMINAL BNP 302.3 pg/ml (5-125); POTASSIUM 4.4 mmol/L (3.5-5.1); TOT PROT 7.5 g/dl (6.4-8.2)
[2019-05-25] MEDS ORDERED: SODIUM CHLORIDE 0.9% 500 ML INFUS.BAG IV ONE (06:43)
[2019-05-25 06:58] LABS: VENOUS PC02 39.3 mmHg (41-51); VENOUS PH 7.38 (7.31-7.41); VENOUS PO2 53.1 mmHg (30-40)
--- NOTE | 2019-05-25 07:22 | PDOC ---
*Physical Exam - Vital Signs Last Vital Signs Temp Pulse Resp BP Pulse Ox 98.6 F 88 20 95/68 97 05/25/19 06:14 05/25/19 06:14 05/25/19 06:14 05/25/19 06:14 05/25/19 06:14 ED Treatment Course - LABORATORY CBC & Chemistry Diagram: 05/25/19 05:07 05/25/19 05:10 - ADDITIONAL ORDERS Additional order review: Laboratory Results 05/25/19 05/25/19 05/25/19 06:48 05:10 05:07 PT with INR 15.90 H INR 1.34 H VBG pH 7.38 POC VBG pCO2 39.3 L POC VBG pO2 53.1 H VBG HCO3 22.8 L VBG O2 Sat (Declan) 84.1 H VBG Base Excess -1.5 Sodium 134 L Potassium 4.4 Chloride 98 Carbon Dioxide 27 Anion Gap 9 BUN 17.2 Creatinine 2.6 H Est GFR (CKD-EPI)AfAm 22.49 Est GFR (CKD-EPI)NonAf 19.41 Random Glucose 149 H Calcium 9.5 Magnesium 1.5 L Total Bilirubin 0.4 AST 13 L ALT 12 L Alkaline Phosphatase 83 Creatine Kinase 113 Troponin I 0.05 B-Natriuretic Peptide 302.3 H Total Protein 7.5 Albumin 3.9 05/25/19 05:07 RBC 4.87 MCV 83.5 MCHC 32.3 RDW 17.4 H MPV 10.1 Neutrophils % 57.5 Lymphocytes % 32.3 D Monocytes % 7.1 Eosinophils % 1.9 Basophils % 1.2 - RADIOLOGY Radiograph Interpretation: CT of Head w/o Contrast: THIS IS A PRELIMINARY REPORT FROM [facility] DATE OF SERVICE: 2019-05-25 05:34:27 IMAGES: [id number] EXAM: HEAD CT WITHOUT CONTRAST HISTORY: Syncope and fall COMPARISON: None. FINDINGS: The ventricular system is midline and nondilated. Cavum septa pellucida is noted. The sulcal pattern is normal for the patient's age. There is no bleed, mass, extra- axial fluid collection or mass effect. No skull fracture. Benign hyperostosis frontalis internus is noted. The visualized paranasal sinuses and mastoid air cells are clear. IMPRESSION: No acute pathology. One or more of the following dose reduction techniques were used: automated exposure control, adjustment of the mA and/or kV according to patient size, use of iterative reconstructive technique. THIS DOCUMENT HAS BEEN ELECTRONICALLY SIGNED Jagdish Suarez MD 05/25/2019 06:[address] of Neck: THIS IS A PRELIMINARY REPORT FROM [facility] DATE OF SERVICE: 2019-05-25 05:38:08 IMAGES: [id number] EXAM: CERVICAL SPINE CT W/O CONTR HISTORY: Syncope and fall COMPARISON: None. FINDINGS: There is a mild levoscoliosis and moderate degenerative changes. No fracture, subluxation or prevertebral soft tissue swelling. The lung apices are clear. IMPRESSION: No fracture One or more of the following dose reduction techniques were used: automated exposure control, adjustment of the mA and/or kV according to patient size, use of iterative reconstructive technique. THIS DOCUMENT HAS BEEN ELECTRONICALLY SIGNED Jagdish Suarez MD 05/25/2019 06:02 EST - Medications Given in the ED: ED Medications Discontinued Medications Generic Name Dose Route Start Last Admin Trade Name Freq PRN Reason Stop Dose Admin Sodium Chloride 1,000 ml 05/25/19 06:43 05/25/19 06:58 Normal Saline - IV 05/25/19 06:44 1,000 ml ONCE ONE Administration Medical Decision Making - Medical Decision Making 05/25/19 07:21 Received sign out from resident Dr. Rodriguez. In short, pt is a 59 y/o female with PMH of Afib (on Eliquis), CAD (s/p 2x stents), CHF, diabetes, COPD, asthma, nonischemic cardiomyopathy (ICD placed), peripheral neuropathy and morbid obesity. Presented via EMS for syncopal episode with subjective fever and decreased urination over the past several days. Of note, the pt was discharged from this facility on 21 May 2019 for similar symptoms. Head and neck CTs obtained and found to be unremarkable for acute pathology. IOC reads included below. Cr noted to be elevated above baseline documented during last admission. Ordered urine electrolytes and creatinine. Receiving NS IVFB. Awaiting call back from Dr. Lewis for admission. 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 08:[address] Lewis. Verbally appraised of the pts HPI, ED course, and current plan of management. Will admit pt to telemetry. Requested cardiology consult to be placed for Dr. Cartwright. *DC/Admit/Observation/Transfer Diagnosis at time of Disposition: Syncope Qualifiers: Syncope type: unspecified Qualified Code(s): R55 - Syncope and collapse - Discharge Dispostion Condition at time of disposition: Guarded - Referrals - Patient Instructions - Post Discharge Activity
--- NOTE | 2019-05-25 10:33 | EKG ---
Test Reason : Blood Pressure : / mmHG Vent. Rate : 090 BPM Atrial Rate : 090 BPM P-R Int : 138 ms QRS Dur : 096 ms QT Int : 394 ms P-R-T Axes : 016 -26 092 degrees QTc Int : 481 ms NORMAL SINUS RHYTHM VOLTAGE CRITERIA FOR LEFT VENTRICULAR HYPERTROPHY ABNORMAL QRS-T ANGLE, CONSIDER PRIMARY T WAVE ABNORMALITY PROLONGED QT ABNORMAL ECG WHEN COMPARED WITH ECG OF 17-MAY-2019 22:01, PREMATURE VENTRICULAR COMPLEXES ARE NO LONGER PRESENT Confirmed by Larry Elena MD ([id number]) on 05/25/2019 10:33:43 AM Referred By: Confirmed By:Larry Elena MD
--- NOTE | 2019-05-25 10:49 | CON.CARD ---
Cardiology Consult (text) - Consultation Consultation Note: Consultation Note: Chief Complaint: dizzy, syncope History of Present Illness: 59F with NICM s/p primary prevention ICD, HTN, asthma here with dizziness, syncope. Recently discharged for admission for syncope with LEONARDO, thought to be in setting of dehydration. Was discharged on lower dose of lasix and amlodipine was stopped for low BP. Initially felt okay after discharge, then started to get dizzy again similar to prior admission. No cp sob palps pnd orthopnea le edema. Sees Dr. Mooney for cardio. - History Source History Provided By: Patient, Medical Record Limitations to Obtaining History: No Limitations - Past Medical History Cardio/Vascular: Yes: CHF (Chronic systolic CHF secondary to non-ischemic CM, ICD- primary prevention), HTN Pulmonary: Yes: Asthma, Sleep Apnea Endocrine: Yes: Diabetes Mellitus, Hypothyroidism - Past Surgical History Past Surgical History: Yes: Cholecystectomy, Joint Replacement (left tkr), Permanent Pacemaker (ICD) - Alcohol/Substance Use Hx Alcohol Use: No - Smoking History Smoking history: Never smoked Have you smoked in the past 12 months: No Aproximately how many cigarettes per day: 0 - Social History Usual Living Arrangement: With Spouse ADL: Independent History of Recent Travel: No Home Medications - Allergies Allergies/Adverse Reactions: Allergies Allergy/AdvReac Type Severity Reaction Status Date / Time tomato Allergy Mild Hives Verified 05/25/19 04:47 chlorpheniramine Allergy Verified 05/25/19 04:47 cimetidine Allergy Verified 05/25/19 04:47 codeine [Codeine] Allergy Verified 05/25/19 04:47 ibuprofen Allergy Verified 05/25/19 04:47 latex [Latex] Allergy Verified 05/25/19 04:47 Latex, Natural Rubber Allergy Verified 05/25/19 04:47 pseudoephedrine Allergy Verified 05/25/19 04:47 salmeterol xinafoate Allergy Verified 05/25/19 04:47 [From Advair Diskus] shellfish derived Allergy Verified 05/25/19 04:47 Sulfa (Sulfonamide Allergy Verified 05/25/19 04:47 Antibiotics) [Sulfa(Sulfonamide Antibiotics)] Chocolate Allergy Mild Hives Uncoded 05/25/19 04:47 shrimp Allergy Mild Hives Uncoded 05/25/19 04:47 Home Medications Medication Instructions Recorded Atorvastatin Ca [Lipitor] 40 mg PO HS 08/09/16 Duloxetine HCl [Cymbalta] 30 mg PO BID 08/09/16 Insulin Glargine,Hum.rec.anlog 25 units SQ HS 08/09/16 [Lantus Solostar PEN -] Linaclotide [Linzess] 290 mcg PO DAILY 08/09/16 Montelukast Na [Singulair -] 10 mg PO HS 08/09/16 Budesonide/Formeterol Fumarate 2 puff PO DAILY 10/14/16 [SYMBICORT 160/4.5mcg -] Linagliptin/Metformin HCl 290 mcg PO BID 10/14/16 [Jentadueto 2.5 mg-1000 mg Tab] Albuterol 2.5/Ipratropium 0.5 1 amp NEB Q6H PRN #90 amp 05/21/19 [Duoneb -] Apixaban [Eliquis -] 5 mg PO BID #60 tablet 05/21/19 Carvedilol [Coreg -] 12.5 mg PO BID #60 tablet 05/21/19 Docusate Sodium [Colace -] 100 mg PO TID #90 capsule 05/21/19 Furosemide [Lasix] 40 mg PO DAILY #30 tablet 05/21/19 Gabapentin [Neurontin -] 300 mg PO BID #60 capsule 05/21/19 Levothyroxine [Synthroid -] 75 mcg PO DAILY #30 tablet 05/21/19 Magnesium Oxide [Mag-Ox -] 400 mg PO BID #60 tablet 05/21/19 Potassium Chloride [K-Dur -] 20 meq PO DAILY #30 tablet.er 05/21/19 Ranolazine [Ranexa -] 500 mg PO BID #60 tab 05/21/19 Family Disease History - Family Disease History Family History: Unremarkable (non-contributory to this presentation) Review of Systems Findings/Remarks: See HPI - Review of Systems Constitutional: reports: No Symptoms Cardiovascular: reports: Shortness of Breath Respiratory: reports: SOB on Exertion, Wheezing Genitourinary: denies: No Symptoms, Burning, Discharge, Dysuria, Flank Pain, Frequency, Hematuria, Incontinence, Lesions, Menses, Pain, Testicular Mass, Testicular Pain, Testicular Swelling, Urgency, Vaginal Bleeding, Other Breasts: denies: No Symptoms Reported, See HPI, Breast Implants, Discharge from Nipple, Lumps, Pain, Skin Changes, Other Musculoskeletal: denies: No Symptoms, Back Pain, Crepitus, Decreased ROM, Extremity Pain, Joint Pain, Joint Swelling, Muscle Pain, Muscle Cramps, Muscle Weakness, Other Integumentary: denies: No Symptoms, Blister, Bruising, Change in Color, Eczema, Erythema, Incision, Lesions, Lump, Pallor, Pruritis, Rash, Wound, Other Endocrine: denies: No Symptoms, Excessive Sweating, Flushing, Increased Hunger, Increased Thirst, Intolerance to Cold, Intolerance to Heat, Unexplained Weight Gain, Unexplained Weight Loss, Other Hematology/Lymphatic: denies: No Symptoms, Easily Bruised, Excessive Bleeding, Swollen Glands, Other Psychiatric: denies: No Symptoms, Altered Sleep Pattern, Anxiety, Depression, Hallucinations, Panic, Paranoia, Suicidal, Other - Risk Factors Known Risk Factors: Yes: Diabetes Mellitus, Hypertension Vital Signs Period Temp Pulse Resp BP Sys/Mcgrath Pulse Ox Last 24 Hr 98.1 F-98.6 F 88-100 20-22 95-118/68-84 97-97 Constitutional: Yes: No Distress Eyes: Yes: Conjunctiva Clear Neck: Yes: Trachea Midline Respiratory: Yes: dec breath sounds at bases bilaterally Gastrointestinal: Yes: Soft, Abdomen, Obese (obese,NT) Cardiovascular: Yes: Regular Rate and Rhythm JVD: no Carotid Bruit: No PMI: Non-Displaced Heart Sounds: Yes: S1, S2 (RRR, no murmurs) Edema: no Peripheral Pulses WNL: Yes Neurological: Yes: Alert, Oriented no jaundice diaphoresis Psychiatric: Yes: WNL Laboratory Last Values WBC 7.4 K/mm3 (4.0-10.0) 05/25/19 05:07 RBC 4.87 M/mm3 (3.60-5.2) 05/25/19 05:07 Hgb 13.1 GM/dL (10.7-15.3) 05/25/19 05:07 Hct 40.7 % (32.4-45.2) 05/25/19 05:07 MCV 83.5 fl (80-96) 05/25/19 05:07 MCH 27.0 pg (25.7-33.7) 05/25/19 05:07 MCHC 32.3 g/dl (32.0-36.0) 05/25/19 05:07 RDW 17.4 % (11.6-15.6) H 05/25/19 05:07 Plt Count 339 K/MM3 (134-434) D 05/25/19 05:07 MPV 10.1 fl (7.5-11.1) 05/25/19 05:07 Absolute Neuts (auto) 4.3 K/mm3 (1.5-8.0) 05/25/19 05:07 Neutrophils % 57.5 % (42.8-82.8) 05/25/19 05:07 Lymphocytes % 32.3 % (8-40) D 05/25/19 05:07 Monocytes % 7.1 % (3.8-10.2) 05/25/19 05:07 Eosinophils % 1.9 % (0-4.5) 05/25/19 05:07 Basophils % 1.2 % (0-2.0) 05/25/19 05:07 Nucleated RBC % 0 % (0-0) 05/25/19 05:07 PT with INR 15.90 SEC (9.7-13.0) H 05/25/19 05:07 INR 1.34 (0.83-1.09) H 05/25/19 05:07 VBG pH 7.38 (7.31-7.41) 05/25/19 06:48 POC VBG pCO2 39.3 mmHg (41-51) L 05/25/19 06:48 POC VBG pO2 53.1 mmHg (30-40) H 05/25/19 06:48 VBG HCO3 22.8 mmol/L (23-29) L 05/25/19 06:48 VBG O2 Sat (Declan) 84.1 % (70-80) H 05/25/19 06:48 VBG Base Excess -1.5 meq/l (-2-2) 05/25/19 06:48 Sodium 134 mmol/L (136-145) L 05/25/19 05:10 Potassium 4.4 mmol/L (3.5-5.1) 05/25/19 05:10 Chloride 98 mmol/L (98-107) 05/25/19 05:10 Carbon Dioxide 27 mmol/L (21-32) 05/25/19 05:10 Anion Gap 9 MMOL/L (8-16) 05/25/19 05:10 BUN 17.2 mg/dL (7-18) 05/25/19 05:10 Creatinine 2.6 mg/dL (0.55-1.3) H 05/25/19 05:10 Est GFR (CKD-EPI)AfAm 22.49 05/25/19 05:10 Est GFR (CKD-EPI)NonAf 19.41 05/25/19 05:10 Random Glucose 149 mg/dL (74-106) H 05/25/19 05:10 Calcium 9.5 mg/dL (8.5-10.1) 05/25/19 05:10 Magnesium 1.5 mg/dL (1.8-2.4) L 05/25/19 05:10 Total Bilirubin 0.4 mg/dL (0.2-1) 05/25/19 05:10 AST 13 U/L (15-37) L 05/25/19 05:10 ALT 12 U/L (13-61) L 05/25/19 05:10 Alkaline Phosphatase 83 U/L (45-117) 05/25/19 05:10 Creatine Kinase 113 U/L (26-192) 05/25/19 05:10 Troponin I 0.05 ng/ml (0.00-0.05) 05/25/19 05:10 B-Natriuretic Peptide 302.3 pg/ml (5-125) H 05/25/19 05:10 Total Protein 7.5 g/dl (6.4-8.2) 05/25/19 05:10 Albumin 3.9 g/dl (3.4-5.0) 05/25/19 05:10 Echo: Report Reviewed ( Office May 2018--> moderately reduced LVEF, No sig valve disease.) Prior Cardiac Procedures: Cardiac Catheterization (non-obstructive CAD) echo 03/2019: lve, sev dec lvef, global hk, vamsi, rv tds, no sig valve path echo 05/2019 tds, mildly dilated LV, severe global hypok, RV nl CXR: clear lungs EKG: sinus, nl intervals, lvh, lat twis - stable compared to prior a/p: 59F with NICM s/p primary prevention ICD, HTN, asthma here with dizziness, syncope. syncope: -pt appears to be volume depleted with leonardo and hypotension, similar to prior admission -cont IVF, hold lasix and bb. monitor sxs -cont tele, echo pending Chronic systolic CHF: -appears dry - severely reduced EF on recent echo -holding diuretic receiving IVF as above - entresto stopped last admission due to LEONARDO - holding coreg for low BP - restart when BP stable -Routine office interrogation of ICD as outpatient ([employer]), no icd shocks Chronic HTN: -bp low here, holding home meds while giving ivfs leonardo: -holding diuretics, cont ivfs -renal following paroxysmal afib - cont eliquis, bb HLD - cont statin
[2019-05-25] MEDS ORDERED: ALBUTEROL SO4 2.5/IPRATROPIUM 0.5 INH SOL 3 ML VIAL.NEB. NEB PRN (11:10)
[2019-05-25] MEDS ORDERED: DEXTROSE 5%-0.45% SALINE 1,000 ML IV SCH (11:15)
[2019-05-25 11:44] LABS: CREATININE, URINE RANDOM > 400.0 mg/dL (30-150)
[2019-05-25] MEDS ORDERED: MAGNESIUM OXIDE 400 MG TABLET (FP) ONE (11:58)
[2019-05-25] MEDS ORDERED: APIXABAN 5 MG TABLET PO ONE (11:58)
[2019-05-25] MEDS ORDERED: DULoxetine HCL 30 MG CAPSULE.DR PO ONE (11:59)
[2019-05-25] MEDS: DULoxetine HCL 30 MG CAPSULE.DR PO SCH ×2 (12:02→21:34)
[2019-05-25] MEDS: MAGNESIUM OXIDE 400 MG TABLET (FP) PO SCH ×2 (12:02→21:34)
[2019-05-25] MEDS: APIXABAN 5 MG TABLET PO SCH ×2 (12:02→21:33)
[2019-05-25] MEDS: BUDESONIDE/FORMETEROL FUMARATE 160/4.5 mcg INHALER IH SCH (12:03)
--- NOTE | 2019-05-25 14:00 | CON.ID ---
Consult Consult Specialty:: infectious diseases Referred by:: Reason for Consultation:: syncope,r/o uti - History of Present Illness Chief Complaint: syncope History of Present Illness: 59F with NICM s/p primary prevention ICD, HTN, asthma here with dizziness, syncope. Recently discharged for admission for syncope with MU, thought to be in setting of dehydration. Was discharged on lower dose of lasix and amlodipine was stopped for low BP. Initially felt okay after discharge, then started to get dizzy again similar to prior admission. No cp sob palps pnd orthopnea le edema according to the patient she was given some abx,she does not what curently she looks s table - History Source History Provided By: Patient, Medical Record Limitations to Obtaining History: Poor Historian - Past Medical History Cardio/Vascular: Yes: CHF (Chronic systolic CHF secondary to non-ischemic CM, ICD- primary prevention), HTN, Hyperlipdemia Pulmonary: Yes: Asthma, Sleep Apnea Endocrine: Yes: Diabetes Mellitus, Hypothyroidism - Past Surgical History Past Surgical History: Yes: Cholecystectomy, Joint Replacement (left tkr), Permanent Pacemaker (ICD) - Alcohol/Substance Use Hx Alcohol Use: No - Smoking History Smoking history: Never smoked Have you smoked in the past 12 months: No Aproximately how many cigarettes per day: 0 - Social History Usual Living Arrangement: With Spouse ADL: Independent History of Recent Travel: No Home Medications - Allergies Allergies/Adverse Reactions: Allergies Allergy/AdvReac Type Severity Reaction Status Date / Time tomato Allergy Mild Hives Verified 05/25/19 04:47 chlorpheniramine Allergy Verified 05/25/19 04:47 cimetidine Allergy Verified 05/25/19 04:47 codeine [Codeine] Allergy Verified 05/25/19 04:47 ibuprofen Allergy Verified 05/25/19 04:47 latex [Latex] Allergy Verified 05/25/19 04:47 Latex, Natural Rubber Allergy Verified 05/25/19 04:47 pseudoephedrine Allergy Verified 05/25/19 04:47 salmeterol xinafoate Allergy Verified 05/25/19 04:47 [From Advair Diskus] shellfish derived Allergy Verified 05/25/19 04:47 Sulfa (Sulfonamide Allergy Verified 05/25/19 04:47 Antibiotics) [Sulfa(Sulfonamide Antibiotics)] Chocolate Allergy Mild Hives Uncoded 05/25/19 04:47 shrimp Allergy Mild Hives Uncoded 05/25/19 04:47 - Home Medications Home Medications: Ambulatory Orders Atorvastatin Ca [Lipitor] 40 mg PO HS 08/09/16 Duloxetine HCl [Cymbalta] 30 mg PO BID 08/09/16 Insulin Glargine,Hum.rec.anlog [Lantus Solostar PEN -] 25 units SQ HS 08/09/16 Linaclotide [Linzess] 290 mcg PO DAILY 08/09/16 Montelukast Na [Singulair -] 10 mg PO HS 08/09/16 Budesonide/Formeterol Fumarate [SYMBICORT 160/4.5mcg -] 2 puff PO DAILY Linagliptin/Metformin HCl [Jentadueto 2.5 mg-1000 mg Tab] 290 mcg PO BID Albuterol 2.5/Ipratropium 0.5 [Duoneb -] 1 amp NEB Q6H PRN #90 amp 05/21/19 Apixaban [Eliquis -] 5 mg PO BID #60 tablet 05/21/19 Carvedilol [Coreg -] 12.5 mg PO BID #60 tablet 05/21/19 Docusate Sodium [Colace -] 100 mg PO TID #90 capsule 05/21/19 Furosemide [Lasix] 40 mg PO DAILY #30 tablet 05/21/19 Gabapentin [Neurontin -] 300 mg PO BID #60 capsule 05/21/19 Levothyroxine [Synthroid -] 75 mcg PO DAILY #30 tablet 05/21/19 Magnesium Oxide [Mag-Ox -] 400 mg PO BID #60 tablet 05/21/19 Potassium Chloride [K-Dur -] 20 meq PO DAILY #30 tablet.er 05/21/19 Ranolazine [Ranexa -] 500 mg PO BID #60 tab 05/21/19 Review of Systems - Review of Systems Constitutional: reports: Weakness Eyes: reports: No Symptoms HENT: reports: No Symptoms Neck: reports: No Symptoms Cardiovascular: reports: No Symptoms Respiratory: reports: No Symptoms Gastrointestinal: reports: No Symptoms Genitourinary: reports: No Symptoms Musculoskeletal: reports: No Symptoms Integumentary: reports: No Symptoms Neurological: reports: Change in LOC, Syncope, Other (dizziness) Hematology/Lymphatic: reports: No Symptoms Psychiatric: reports: No Symptoms Physical Exam Vital Signs: Vital Signs Temperature 98.6 F 05/25/19 06:14 Pulse Rate 88 05/25/19 06:14 Respiratory Rate 20 05/25/19 06:14 Blood Pressure 95/68 05/25/19 06:14 O2 Sat by Pulse Oximetry (%) 97 05/25/19 06:14 Constitutional: Yes: Well Nourished, No Distress, Calm Eyes: Yes: Conjunctiva Clear Neck: Yes: Supple, Trachea Midline Cardiovascular: Yes: Regular Rate and Rhythm Respiratory: Yes: Regular, CTA Bilaterally Gastrointestinal: Yes: Normal Bowel Sounds, Soft Musculoskeletal: Yes: WNL Extremities: Yes: WNL Neurological: Yes: Alert, Oriented Psychiatric: Yes: Alert, Oriented Labs: CBC, BMP 05/25/19 05:07 05/25/19 05:10 Imaging - Results Chest X-ray: Report Reviewed, Image Reviewed Cat Scan: Report Reviewed, Image Reviewed Assessment/Plan Problem List - Problems (1) Syncope Code(s): R55 - SYNCOPE AND COLLAPSE Qualifiers: Syncope type: unspecified Qualified Code(s): R55 - Syncope and collapse (2) MU (acute kidney injury) Code(s): N17.9 - ACUTE KIDNEY FAILURE, UNSPECIFIED (3) Hyperlipidemia Code(s): E78.5 - HYPERLIPIDEMIA, UNSPECIFIED 4 r/o uti plan will hold off on abx await for all cx monitor mental status rest as per the team
[2019-05-25] MEDS: DOCUSATE SODIUM 100 MG CAPSULE (FP) PO SCH ×2 (14:55→21:33)
--- NOTE | 2019-05-25 15:49 | CONSULT ---
Consult Consult Specialty:: Nephrology Reason for Consultation:: MU - History of Present Illness Chief Complaint: syncope History of Present Illness: Pt is a 59 year old female with pmhx of chf, mu, obesity, a-fib, copd, asthma, geovanna, and DM who presented with syncope. She was on lasix 40 mg once daily, which had been decreased from twice per day. She was again for to be in renal failure. She denies dysuria or hematuria. She felt better with the IV fluid. Please see H and P from last week. - History Source History Provided By: Patient, Medical Record - Past Medical History Cardio/Vascular: Yes: CHF (Chronic systolic CHF secondary to non-ischemic CM, ICD- primary prevention), HTN, Hyperlipdemia Pulmonary: Yes: Asthma, Sleep Apnea Endocrine: Yes: Diabetes Mellitus, Hypothyroidism - Past Surgical History Past Surgical History: Yes: Cholecystectomy, Joint Replacement (left tkr), Permanent Pacemaker (ICD) - Alcohol/Substance Use Hx Alcohol Use: No - Smoking History Smoking history: Never smoked Have you smoked in the past 12 months: No Aproximately how many cigarettes per day: 0 - Social History Usual Living Arrangement: With Spouse ADL: Independent History of Recent Travel: No Home Medications - Allergies Allergies/Adverse Reactions: Allergies Allergy/AdvReac Type Severity Reaction Status Date / Time tomato Allergy Mild Hives Verified 05/25/19 04:47 chlorpheniramine Allergy Verified 05/25/19 04:47 cimetidine Allergy Verified 05/25/19 04:47 codeine [Codeine] Allergy Verified 05/25/19 04:47 ibuprofen Allergy Verified 05/25/19 04:47 latex [Latex] Allergy Verified 05/25/19 04:47 Latex, Natural Rubber Allergy Verified 05/25/19 04:47 pseudoephedrine Allergy Verified 05/25/19 04:47 salmeterol xinafoate Allergy Verified 05/25/19 04:47 [From Advair Diskus] shellfish derived Allergy Verified 05/25/19 04:47 Sulfa (Sulfonamide Allergy Verified 05/25/19 04:47 Antibiotics) [Sulfa(Sulfonamide Antibiotics)] Chocolate Allergy Mild Hives Uncoded 05/25/19 04:47 shrimp Allergy Mild Hives Uncoded 05/25/19 04:47 - Home Medications Home Medications: Ambulatory Orders Atorvastatin Ca [Lipitor] 40 mg PO HS 08/09/16 Duloxetine HCl [Cymbalta] 30 mg PO BID 08/09/16 Insulin Glargine,Hum.rec.anlog [Lantus Solostar PEN -] 25 units SQ HS 08/09/16 Linaclotide [Linzess] 290 mcg PO DAILY 08/09/16 Montelukast Na [Singulair -] 10 mg PO HS 08/09/16 Budesonide/Formeterol Fumarate [SYMBICORT 160/4.5mcg -] 2 puff PO DAILY Linagliptin/Metformin HCl [Jentadueto 2.5 mg-1000 mg Tab] 290 mcg PO BID Albuterol 2.5/Ipratropium 0.5 [Duoneb -] 1 amp NEB Q6H PRN #90 amp 05/21/19 Apixaban [Eliquis -] 5 mg PO BID #60 tablet 05/21/19 Carvedilol [Coreg -] 12.5 mg PO BID #60 tablet 05/21/19 Docusate Sodium [Colace -] 100 mg PO TID #90 capsule 05/21/19 Furosemide [Lasix] 40 mg PO DAILY #30 tablet 05/21/19 Gabapentin [Neurontin -] 300 mg PO BID #60 capsule 05/21/19 Levothyroxine [Synthroid -] 75 mcg PO DAILY #30 tablet 05/21/19 Magnesium Oxide [Mag-Ox -] 400 mg PO BID #60 tablet 05/21/19 Potassium Chloride [K-Dur -] 20 meq PO DAILY #30 tablet.er 05/21/19 Ranolazine [Ranexa -] 500 mg PO BID #60 tab 05/21/19 Family Disease History - Family Disease History Family History: Denies Review of Systems - Review of Systems Constitutional: reports: Malaise Eyes: reports: No Symptoms HENT: reports: No Symptoms Neck: reports: No Symptoms Cardiovascular: reports: No Symptoms Respiratory: reports: No Symptoms Gastrointestinal: reports: No Symptoms Musculoskeletal: reports: No Symptoms Integumentary: reports: No Symptoms Neurological: reports: Syncope Endocrine: reports: No Symptoms Hematology/Lymphatic: reports: No Symptoms Psychiatric: reports: No Symptoms Physical Exam Vital Signs: Vital Signs Temperature 98.6 F 05/25/19 06:14 Pulse Rate 88 05/25/19 06:14 Respiratory Rate 20 05/25/19 06:14 Blood Pressure 95/68 05/25/19 06:14 O2 Sat by Pulse Oximetry (%) 97 05/25/19 06:14 Constitutional: Yes: Calm Eyes: Yes: Conjunctiva Clear HENT: Yes: Atraumatic Neck: Yes: Supple Cardiovascular: Yes: S1, S2 Respiratory: Yes: CTA Bilaterally Gastrointestinal: Yes: Normal Bowel Sounds, Soft Renal/: Yes: WNL Musculoskeletal: Yes: WNL Extremities: Yes: WNL Edema: No Neurological: Yes: Oriented Psychiatric: Yes: Oriented Labs: CBC, BMP 05/25/19 05:07 05/25/19 05:10 Laboratory Tests 05/25/19 05:10 Sodium 134 L Creatinine 2.6 H Random Glucose 149 H Magnesium 1.5 L Imaging - Results Chest X-ray: Report Reviewed Problem List - Problems (1) Syncope Code(s): R55 - SYNCOPE AND COLLAPSE Qualifiers: Syncope type: unspecified Qualified Code(s): R55 - Syncope and collapse (2) MU (acute kidney injury) Code(s): N17.9 - ACUTE KIDNEY FAILURE, UNSPECIFIED (3) Hyperlipidemia Code(s): E78.5 - HYPERLIPIDEMIA, UNSPECIFIED Assessment/Plan Current Medications Generic Name Dose Route Start Last Admin Trade Name Freq PRN Reason Stop Dose Admin Albuterol/Ipratropium 1 amp 05/25/19 11:10 Duoneb - NEB Q6H PRN SHORTNESS OF BREATH Apixaban 5 mg 05/25/19 11:15 05/25/19 12:02 Eliquis - PO 5 mg BID DOM Administration Atorvastatin Calcium 40 mg 05/25/19 22:00 Lipitor - PO HS DOM Budesonide/Formoterol Fumarate 2 puff 05/25/19 11:15 05/25/19 12:03 Symbicort 160/4.5mcg - IH Not Given DAILY DOM Docusate Sodium 100 mg 05/25/19 14:00 05/25/19 14:55 Colace - PO 100 mg TID DOM Administration Duloxetine HCl 30 mg 05/25/19 11:15 05/25/19 12:02 Cymbalta - PO 30 mg BID DOM Administration Gabapentin 300 mg 05/25/19 22:00 Neurontin - PO BID DOM Dextrose/Sodium Chloride 1,000 mls @ 75 mls/hr 05/25/19 11:15 05/25/19 11:29 D5-1/2ns - IV 75 mls/hr ASDIR DOM Administration Levothyroxine Sodium 75 mcg 05/26/19 07:00 Synthroid - PO 0700 DOM Magnesium Oxide 400 mg 05/25/19 11:15 05/25/19 12:02 Mag-Ox - PO 400 mg BID DOM Administration Montelukast Sodium 10 mg 05/25/19 22:00 Singulair - PO HS DOM Potassium Chloride 20 meq 05/26/19 10:00 K-Dur - PO DAILY DOM Ranolazine 500 mg 05/25/19 22:00 Ranexa - PO BID DOM Impression 1. MU 2. syncope 3. asthma 4. chf 5. obesity 6. hypotension 7. a-fib Plan - hold lasix - check bmp in am - change fluids to ns and decrease rate - cardio eval - check urine lytes - ua was neg for blood or protein
[2019-05-25] MEDS ORDERED: SODIUM CHLORIDE 1,000 ML IV SCH (16:00)
[2019-05-25 20:26] VITALS: BMI 41.5
--- NOTE | 2019-05-25 21:03 | HP ---
Admitting History and Physical - Past Medical History Cardiovascular: Yes: CHF (Chronic systolic CHF secondary to non-ischemic CM, ICD - primary prevention), HTN, Hyperlipdemia Pulmonary: Yes: Asthma, Sleep Apnea Endocrine: Yes: Diabetes Mellitus, Hypothyroidism - Past Surgical History Past Surgical History: Yes: Cholecystectomy, Joint Replacement (left tkr), Permanent Pacemaker (ICD) - Smoking History Smoking history: Never smoked Have you smoked in the past 12 months: No Aproximately how many cigarettes per day: 0 - Alcohol/Substance Use Hx Alcohol Use: No - Social History ADL: Independent History of Recent Travel: No Home Medications - Allergies Allergies/Adverse Reactions: Allergies Allergy/AdvReac Type Severity Reaction Status Date / Time tomato Allergy Mild Hives Verified 05/25/19 04:47 chlorpheniramine Allergy Verified 05/25/19 04:47 cimetidine Allergy Verified 05/25/19 04:47 codeine [Codeine] Allergy Verified 05/25/19 04:47 ibuprofen Allergy Verified 05/25/19 04:47 latex [Latex] Allergy Verified 05/25/19 04:47 Latex, Natural Rubber Allergy Verified 05/25/19 04:47 pseudoephedrine Allergy Verified 05/25/19 04:47 salmeterol xinafoate Allergy Verified 05/25/19 04:47 [From Advair Diskus] shellfish derived Allergy Verified 05/25/19 04:47 Sulfa (Sulfonamide Allergy Verified 05/25/19 04:47 Antibiotics) [Sulfa(Sulfonamide Antibiotics)] Chocolate Allergy Mild Hives Uncoded 05/25/19 04:47 shrimp Allergy Mild Hives Uncoded 05/25/19 04:47 - Home Medications Home Medications: Ambulatory Orders Atorvastatin Ca [Lipitor] 40 mg PO HS 08/09/16 Duloxetine HCl [Cymbalta] 30 mg PO BID 08/09/16 Insulin Glargine,Hum.rec.anlog [Lantus Solostar PEN -] 25 units SQ HS 08/09/16 Linaclotide [Linzess] 290 mcg PO DAILY 08/09/16 Montelukast Na [Singulair -] 10 mg PO HS 08/09/16 Budesonide/Formeterol Fumarate [SYMBICORT 160/4.5mcg -] 2 puff PO DAILY Linagliptin/Metformin HCl [Jentadueto 2.5 mg-1000 mg Tab] 290 mcg PO BID Albuterol 2.5/Ipratropium 0.5 [Duoneb -] 1 amp NEB Q6H PRN #90 amp 05/21/19 Apixaban [Eliquis -] 5 mg PO BID #60 tablet 05/21/19 Carvedilol [Coreg -] 12.5 mg PO BID #60 tablet 05/21/19 Docusate Sodium [Colace -] 100 mg PO TID #90 capsule 05/21/19 Furosemide [Lasix] 40 mg PO DAILY #30 tablet 05/21/19 Gabapentin [Neurontin -] 300 mg PO BID #60 capsule 05/21/19 Levothyroxine [Synthroid -] 75 mcg PO DAILY #30 tablet 05/21/19 Magnesium Oxide [Mag-Ox -] 400 mg PO BID #60 tablet 05/21/19 Potassium Chloride [K-Dur -] 20 meq PO DAILY #30 tablet.er 05/21/19 Ranolazine [Ranexa -] 500 mg PO BID #60 tab 05/21/19 Physical Examination Vital Signs: Vital Signs Temperature 98.2 F 05/25/19 20:00 Pulse Rate 91 H 05/25/19 20:00 Respiratory Rate 20 05/25/19 20:00 Blood Pressure 136/73 05/25/19 20:00 O2 Sat by Pulse Oximetry (%) 95 05/25/19 20:00 Labs: CBC, BMP 05/25/19 05:07 05/25/19 05:10
[2019-05-25] MEDS: MONTELUKAST NA 10 MG TABLET PO SCH (21:38)
[2019-05-25] MEDS: RANOLAZINE E.R. 500 MG TABLET (FP) PO SCH (21:38)
[2019-05-25] MEDS: ATORVASTATIN CA 40 MG TABLET (FP) PO SCH (21:38)
[2019-05-25] MEDS: GABAPENTIN 300 MG CAPSULE (FP) PO SCH (21:39)
[2019-05-25 22:10] LABS: EPI CELLS 5.1 /HPF (0-5/HPF); HYALINE CASTS 11 /lpf (0-8); URINE APPEARANCE CLOUDY; URINE BACTERIA 170.7 /hpf (NEGATIVE); URINE BILIRUBIN NEGATIVE (NEGATIVE); URINE COLOR YELLOW; URINE GLUCOSE (UA) NEGATIVE (NEGATIVE); URINE KETONE NEGATIVE (NEGATIVE); URINE LEUK ESTERASE TRACE (NEGATIVE); URINE NITRITE NEGATIVE (NEGATIVE); URINE PROTEIN NEGATIVE (NEGATIVE); URINE RBC 0 /hpf (0-4); URINE UROBILINOGEN 0.2 mg/dL (0.2-1.0); URINE WBC 4 /hpf (0-5)
[2019-05-26] MEDS: LEVOTHYROXINE NA 75 MCG TABLET (FP) PO SCH (06:11)
[2019-05-26] MEDS: DOCUSATE SODIUM 100 MG CAPSULE (FP) PO SCH ×3 (06:11→21:08)
[2019-05-26 07:51] LABS: ALBUMIN 3.2 g/dl (3.4-5.0); BILIRUBIN,TOTAL 0.5 mg/dL (0.2-1); BLOOD UREA NITROGEN 13.4 mg/dL (7-18); CALCIUM 8.5 mg/dL (8.5-10.1); CREATININE 1.3 mg/dL (0.55-1.3); POTASSIUM 4.2 mmol/L (3.5-5.1); TOT PROT 6.2 g/dl (6.4-8.2)
[2019-05-26] MEDS ORDERED: POTASSIUM CHLORIDE TABS 20 MEQ TABLET.ER (FP) PO SCH (10:00)
[2019-05-26] MEDS: GABAPENTIN 300 MG CAPSULE (FP) PO SCH ×2 (10:09→21:08)
[2019-05-26] MEDS: DULoxetine HCL 30 MG CAPSULE.DR PO SCH ×2 (10:10→21:08)
[2019-05-26] MEDS: APIXABAN 5 MG TABLET PO SCH ×2 (10:10→21:08)
[2019-05-26] MEDS: RANOLAZINE E.R. 500 MG TABLET (FP) PO SCH ×2 (10:10→21:08)
[2019-05-26] MEDS: MAGNESIUM OXIDE 400 MG TABLET (FP) PO SCH ×2 (10:10→21:08)
[2019-05-26] MEDS: BUDESONIDE/FORMETEROL FUMARATE 160/4.5 mcg INHALER IH SCH (10:11)
--- NOTE | 2019-05-26 10:53 | PN ---
Progress Note, Physician History of Present Illness: Pt seen and examined at bedside. She is awake and alert. She feels much better today. - Current Medication List Current Medications: Active Medications Albuterol/Ipratropium (Duoneb -) 1 amp NEB Q6H PRN PRN Reason: SHORTNESS OF BREATH Apixaban (Eliquis -) 5 mg PO BID [facility] Last Admin: 05/26/19 10:10 Dose: 5 mg Atorvastatin Calcium (Lipitor -) 40 mg PO HS [facility] Last Admin: 05/25/19 21:38 Dose: 40 mg Budesonide/Formoterol Fumarate (Symbicort 160/4.5mcg -) 2 puff IH DAILY [facility] Last Admin: 05/26/19 10:11 Dose: 2 inh Docusate Sodium (Colace -) 100 mg PO TID [facility] Last Admin: 05/26/19 06:11 Dose: 100 mg Duloxetine HCl (Cymbalta -) 30 mg PO BID [facility] Last Admin: 05/26/19 10:10 Dose: 30 mg Gabapentin (Neurontin -) 300 mg PO BID [facility] Last Admin: 05/26/19 10:09 Dose: 300 mg Sodium Chloride (Normal Saline -) 1,000 mls @ 75 mls/hr IV ASDIR [facility] Last Admin: 05/25/19 16:10 Dose: 75 mls/hr Levothyroxine Sodium (Synthroid -) 75 mcg PO 0700 [facility] Last Admin: 05/26/19 06:11 Dose: 75 mcg Magnesium Oxide (Mag-Ox -) 400 mg PO BID [facility] Last Admin: 05/26/19 10:10 Dose: 400 mg Montelukast Sodium (Singulair -) 10 mg PO [facility] Last Admin: 05/25/19 21:38 Dose: 10 mg Potassium Chloride (K-Dur -) 20 meq PO DAILY [facility] Last Admin: 05/26/19 10:09 Dose: 20 meq Ranolazine (Ranexa -) 500 mg PO BID [facility] Last Admin: 05/26/19 10:10 Dose: 500 mg - Objective Vital Signs: Vital Signs Temperature 97.3 F L 05/26/19 05:45 Pulse Rate 89 05/26/19 05:45 Respiratory Rate 20 05/26/19 05:45 Blood Pressure 113/56 L 05/26/19 05:45 O2 Sat by Pulse Oximetry (%) 95 05/25/19 20:00 Constitutional: Yes: Calm Eyes: Yes: Conjunctiva Clear HENT: Yes: Atraumatic Neck: Yes: Supple Cardiovascular: Yes: S1, S2 Respiratory: Yes: CTA Bilaterally Gastrointestinal: Yes: Soft Genitourinary: Yes: WNL Musculoskeletal: Yes: WNL Edema: No Neurological: Yes: Oriented Psychiatric: Yes: Oriented Labs: CBC, BMP 05/25/19 05:07 05/26/19 05:55 INR, PTT INR 1.34 (0.83-1.09) H 05/25/19 05:07 Problem List - Problems (1) Syncope Code(s): R55 - SYNCOPE AND COLLAPSE Qualifiers: Syncope type: unspecified Qualified Code(s): R55 - Syncope and collapse (2) MU (acute kidney injury) Code(s): N17.9 - ACUTE KIDNEY FAILURE, UNSPECIFIED (3) Hyperlipidemia Code(s): E78.5 - HYPERLIPIDEMIA, UNSPECIFIED Assessment/Plan Current Medications Generic Name Dose Route Start Last Admin Trade Name Freq PRN Reason Stop Dose Admin Albuterol/Ipratropium 1 amp 05/25/19 11:10 Duoneb - NEB Q6H PRN SHORTNESS OF BREATH Apixaban 5 mg 05/25/19 11:15 05/26/19 10:10 Eliquis - PO 5 mg BID DOM Administration Atorvastatin Calcium 40 mg 05/25/19 22:00 05/25/19 21:38 Lipitor - PO 40 mg HS DOM Administration Budesonide/Formoterol Fumarate 2 puff 05/25/19 11:15 05/26/19 10:11 Symbicort 160/4.5mcg - IH 2 inh DAILY DOM Administration Docusate Sodium 100 mg 05/25/19 14:00 05/26/19 06:11 Colace - PO 100 mg TID DOM Administration Duloxetine HCl 30 mg 05/25/19 11:15 05/26/19 10:10 Cymbalta - PO 30 mg BID DOM Administration Gabapentin 300 mg 05/25/19 22:00 05/26/19 10:09 Neurontin - PO 300 mg BID DOM Administration Sodium Chloride 1,000 mls @ 75 mls/hr 05/25/19 16:00 05/25/19 16:10 Normal Saline - IV 75 mls/hr ASDIR DOM Administration Levothyroxine Sodium 75 mcg 05/26/19 07:00 05/26/19 06:11 Synthroid - PO 75 mcg 0700 DOM Administration Magnesium Oxide 400 mg 05/25/19 11:15 05/26/19 10:10 Mag-Ox - PO 400 mg BID DOM Administration Montelukast Sodium 10 mg 05/25/19 22:00 05/25/19 21:38 Singulair - PO 10 mg HS DOM Administration Potassium Chloride 20 meq 05/26/19 10:00 05/26/19 10:09 K-Dur - PO 20 meq DAILY DOM Administration Ranolazine 500 mg 05/25/19 22:00 05/26/19 10:10 Ranexa - PO 500 mg BID DOM Administration Laboratory Tests 05/25/19 05:07 Urine Protein Negative Urine Blood Negative Impression 1. MU 2. syncope 3. asthma 4. chf 5. obesity 6. hypotension 7. a-fib Plan - can stop fluids - renal function is improved - repeat labs n am - hold potassium for now as lsaix is on hold - keep lasix on hold - cardio eval
--- NOTE | 2019-05-26 11:38 | PN ---
Progress Note (short form) - Note Progress Note: s: no chest pain, palps, dizziness, feels better Current Medications Albuterol/Ipratropium (Duoneb -) 1 amp NEB Q6H PRN PRN Reason: SHORTNESS OF BREATH Apixaban (Eliquis -) 5 mg PO BID [facility] Last Admin: 05/26/19 10:10 Dose: 5 mg Atorvastatin Calcium (Lipitor -) 40 mg PO [facility] Last Admin: 05/25/19 21:38 Dose: 40 mg Budesonide/Formoterol Fumarate (Symbicort 160/4.5mcg -) 2 puff IH DAILY [facility] Last Admin: 05/26/19 10:11 Dose: 2 inh Docusate Sodium (Colace -) 100 mg PO TID [facility] Last Admin: 05/26/19 06:11 Dose: 100 mg Duloxetine HCl (Cymbalta -) 30 mg PO BID [facility] Last Admin: 05/26/19 10:10 Dose: 30 mg Gabapentin (Neurontin -) 300 mg PO BID [facility] Last Admin: 05/26/19 10:09 Dose: 300 mg Levothyroxine Sodium (Synthroid -) 75 mcg PO 0700 [facility] Last Admin: 05/26/19 06:11 Dose: 75 mcg Magnesium Oxide (Mag-Ox -) 400 mg PO BID [facility] Last Admin: 05/26/19 10:10 Dose: 400 mg Montelukast Sodium (Singulair -) 10 mg PO [facility] Last Admin: 05/25/19 21:38 Dose: 10 mg Ranolazine (Ranexa -) 500 mg PO BID [facility] Last Admin: 05/26/19 10:10 Dose: 500 mg Vital Signs Period Temp Pulse Resp BP Sys/Mcgrath Pulse Ox Last 24 Hr 97.3 F-98.2 F 89-104 15-20 95-136/56-73 95-98 Constitutional: Yes: No Distress Eyes: Yes: Conjunctiva Clear Neck: Yes: Trachea Midline Respiratory: Yes: dec breath sounds at bases bilaterally Gastrointestinal: Yes: Soft, Abdomen, Obese (obese,NT) Cardiovascular: Yes: Regular Rate and Rhythm JVD: no Carotid Bruit: No PMI: Non-Displaced Heart Sounds: Yes: S1, S2 (RRR, no murmurs) Edema: no Peripheral Pulses WNL: Yes Neurological: Yes: Alert, Oriented no jaundice diaphoresis Psychiatric: Yes: WNL Echo: Report Reviewed ( Office May 2018--> moderately reduced LVEF, No sig valve disease.) Prior Cardiac Procedures: Cardiac Catheterization (non-obstructive CAD) echo 03/2019: lve, sev dec lvef, global hk, vamsi, rv tds, no sig valve path echo 05/2019 tds, mildly dilated LV, severe global hypok, RV nl CXR: clear lungs tele: sinus, PVCs, NSVT EKG: sinus, nl intervals, lvh, lat twis - stable compared to prior a/p: 59F with NICM s/p primary prevention ICD, HTN, asthma here with dizziness, syncope. syncope: -pt appears to be volume depleted with mu and hypotension, similar to prior admission -improved with IV fluids, holding lasix - cont holding lasix Chronic systolic CHF: -appeared dry, now improved on IVF - severely reduced EF on recent echo -holding diuretic receiving IVF as above - entresto stopped last admission due to MU -restart home coreg -Routine office interrogation of ICD as outpatient ([employer]), no icd shocks Chronic HTN: -bp low here, improved - restart coreg mu: -holding diuretics, cont ivfs -renal following paroxysmal afib - cont eliquis, bb HLD - cont statin
[2019-05-26] MEDS: CARVEDILOL 12.5 MG TABLET (FP) PO SCH ×2 (12:05→21:08)
--- NOTE | 2019-05-26 14:04 | PN ---
Progress Note, Physician History of Present Illness: patient stable looks much better - Current Medication List Current Medications: Active Medications Albuterol/Ipratropium (Duoneb -) 1 amp NEB Q6H PRN PRN Reason: SHORTNESS OF BREATH Apixaban (Eliquis -) 5 mg PO BID [facility] Last Admin: 05/26/19 10:10 Dose: 5 mg Atorvastatin Calcium (Lipitor -) 40 mg PO [facility] Last Admin: 05/25/19 21:38 Dose: 40 mg Budesonide/Formoterol Fumarate (Symbicort 160/4.5mcg -) 2 puff IH DAILY [facility] Last Admin: 05/26/19 10:11 Dose: 2 inh Carvedilol (Coreg -) 12.5 mg PO BID [facility] Last Admin: 05/26/19 12:05 Dose: 12.5 mg Docusate Sodium (Colace -) 100 mg PO TID [facility] Last Admin: 05/26/19 06:11 Dose: 100 mg Duloxetine HCl (Cymbalta -) 30 mg PO BID [facility] Last Admin: 05/26/19 10:10 Dose: 30 mg Gabapentin (Neurontin -) 300 mg PO BID [facility] Last Admin: 05/26/19 10:09 Dose: 300 mg Levothyroxine Sodium (Synthroid -) 75 mcg PO 0700 [facility] Last Admin: 05/26/19 06:11 Dose: 75 mcg Magnesium Oxide (Mag-Ox -) 400 mg PO BID [facility] Last Admin: 05/26/19 10:10 Dose: 400 mg Montelukast Sodium (Singulair -) 10 mg PO [facility] Last Admin: 05/25/19 21:38 Dose: 10 mg Ranolazine (Ranexa -) 500 mg PO BID [facility] Last Admin: 05/26/19 10:10 Dose: 500 mg - Objective Vital Signs: Vital Signs Temperature 97.8 F 05/26/19 09:00 Pulse Rate 104 H 05/26/19 09:00 Respiratory Rate 20 05/26/19 09:00 Blood Pressure 107/68 05/26/19 09:00 O2 Sat by Pulse Oximetry (%) 95 05/26/19 09:00 Constitutional: Yes: No Distress, Calm Cardiovascular: Yes: S1, S2 Gastrointestinal: Yes: Normal Bowel Sounds, Soft Musculoskeletal: Yes: WNL Extremities: Yes: WNL Neurological: Yes: Alert, Oriented Psychiatric: Yes: Alert, Oriented Labs: CBC, BMP 05/25/19 05:07 05/26/19 05:55 INR, PTT INR 1.34 (0.83-1.09) H 05/25/19 05:07 Assessment/Plan Problem List - Problems (1) Syncope Code(s): R55 - SYNCOPE AND COLLAPSE Qualifiers: Syncope type: unspecified Qualified Code(s): R55 - Syncope and collapse (2) MU (acute kidney injury) Code(s): N17.9 - ACUTE KIDNEY FAILURE, UNSPECIFIED (3) Hyperlipidemia Code(s): E78.5 - HYPERLIPIDEMIA, UNSPECIFIED 4 r/o uti plan continue holding abx rest as per the team
[2019-05-26] MEDS: CEFTRIAXONE 1 GM in DEXTROSE 5%-WATER - 50 ML IVPB SCH (16:14)
[2019-05-26] MEDS ORDERED: DEXTROSE 5%-WATER - 50 ML IVPB ONE (16:48)
[2019-05-26] MEDS ORDERED: cefTRIAXone SODIUM 1 GM VIAL ONE (16:48)
[2019-05-26] MEDS: INSULIN SLIDING SCALE (NOVOLOG) 1 VIAL SQ SCH ×2 (17:14→22:48)
[2019-05-26] MEDS ORDERED: INSULIN (NOVOLOG) ASPART 100 UNITS/ML 10ML VIAL ONE (17:30)
[2019-05-26] MEDS: MONTELUKAST NA 10 MG TABLET PO SCH (21:08)
[2019-05-26] MEDS: ATORVASTATIN CA 40 MG TABLET (FP) PO SCH (21:08)
--- NOTE | 2019-05-26 21:30 | PN ---
Progress Note, Physician - Current Medication List Current Medications: Active Medications Albuterol/Ipratropium (Duoneb -) 1 amp NEB Q6H PRN PRN Reason: SHORTNESS OF BREATH Apixaban (Eliquis -) 5 mg PO BID [facility] Last Admin: 05/26/19 21:08 Dose: 5 mg Atorvastatin Calcium (Lipitor -) 40 mg PO HS [facility] Last Admin: 05/26/19 21:08 Dose: 40 mg Budesonide/Formoterol Fumarate (Symbicort 160/4.5mcg -) 2 puff IH DAILY [facility] Last Admin: 05/26/19 10:11 Dose: 2 inh Carvedilol (Coreg -) 12.5 mg PO BID [facility] Last Admin: 05/26/19 21:08 Dose: 12.5 mg Docusate Sodium (Colace -) 100 mg PO TID [facility] Last Admin: 05/26/19 21:08 Dose: 100 mg Duloxetine HCl (Cymbalta -) 30 mg PO BID [facility] Last Admin: 05/26/19 21:08 Dose: 30 mg Gabapentin (Neurontin -) 300 mg PO BID [facility] Last Admin: 05/26/19 21:08 Dose: 300 mg Ceftriaxone Sodium 1 gm/ (Dextrose) 50 mls @ 100 mls/hr IVPB DAILY [facility]; Protocol Last Admin: 05/26/19 16:14 Dose: 100 mls/hr Insulin Aspart (Novolog Vial Sliding Scale -) 1 vial SQ ACHS [facility]; Protocol Last Admin: 05/26/19 17:14 Dose: Not Given Insulin Detemir (Levemir Vial) [address] [facility] Levothyroxine Sodium (Synthroid -) 75 mcg PO 0700 [facility] Last Admin: 05/26/19 06:11 Dose: 75 mcg Magnesium Oxide (Mag-Ox -) 400 mg PO BID [facility] Last Admin: 05/26/19 21:08 Dose: 400 mg Montelukast Sodium (Singulair -) [address] [facility] Last Admin: 05/26/19 21:08 Dose: 10 mg Ranolazine (Ranexa -) 500 mg PO BID [facility] Last Admin: 05/26/19 21:08 Dose: 500 mg - Objective Vital Signs: Vital Signs Temperature 97.7 F 05/26/19 17:00 Pulse Rate 85 05/26/19 17:00 Respiratory Rate 20 05/26/19 17:00 Blood Pressure 111/54 L 05/26/19 17:00 O2 Sat by Pulse Oximetry (%) 95 05/26/19 09:00 Labs: CBC, BMP 05/25/19 05:07 05/26/19 05:55 INR, PTT INR 1.34 (0.83-1.09) H 05/25/19 05:07
[2019-05-26] MEDS: INSULIN (LEVEMIR) 100 UNITS/ML UNITS SQ SCH (22:49)
[2019-05-27] MEDS: INSULIN SLIDING SCALE (NOVOLOG) 1 VIAL SQ SCH ×4 (06:00→22:40)
[2019-05-27] MEDS: LEVOTHYROXINE NA 75 MCG TABLET (FP) PO SCH (06:00)
[2019-05-27] MEDS: DOCUSATE SODIUM 100 MG CAPSULE (FP) PO SCH ×3 (06:00→22:48)
[2019-05-27 08:36] LABS: ALBUMIN 3.3 g/dl (3.4-5.0); BILIRUBIN,TOTAL 0.3 mg/dL (0.2-1); BLOOD UREA NITROGEN 11.6 mg/dL (7-18); CALCIUM 9.1 mg/dL (8.5-10.1); CREATININE 1.2 mg/dL (0.55-1.3); POTASSIUM 4.2 mmol/L (3.5-5.1); TOT PROT 6.5 g/dl (6.4-8.2)
[2019-05-27] MEDS ORDERED: DEXTROSE 5%-WATER - 50 ML IVPB ONE (08:56)
[2019-05-27] MEDS ORDERED: cefTRIAXone SODIUM 1 GM VIAL ONE (08:56)
[2019-05-27] MEDS: CEFTRIAXONE 1 GM in DEXTROSE 5%-WATER - 50 ML IVPB SCH (09:39)
[2019-05-27] MEDS: RANOLAZINE E.R. 500 MG TABLET (FP) PO SCH ×2 (09:40→22:40)
[2019-05-27] MEDS: APIXABAN 5 MG TABLET PO SCH ×2 (09:40→22:40)
[2019-05-27] MEDS: MAGNESIUM OXIDE 400 MG TABLET (FP) PO SCH ×2 (09:40→22:39)
[2019-05-27] MEDS: CARVEDILOL 12.5 MG TABLET (FP) PO SCH ×2 (09:40→22:39)
[2019-05-27] MEDS: DULoxetine HCL 30 MG CAPSULE.DR PO SCH ×2 (09:40→22:39)
[2019-05-27] MEDS: GABAPENTIN 300 MG CAPSULE (FP) PO SCH ×2 (09:40→22:39)
[2019-05-27] MEDS: BUDESONIDE/FORMETEROL FUMARATE 160/4.5 mcg INHALER IH SCH (09:57)
--- NOTE | 2019-05-27 11:36 | PN ---
Progress Note (short form) - Note Progress Note: s: no chest pain, palps, dizziness, feels better Current Medications Generic Name Dose Route Start Last Admin Trade Name Mora PRN Reason Stop Dose Admin Albuterol/Ipratropium 1 amp 05/25/19 11:10 Duoneb - NEB Q6H PRN SHORTNESS OF BREATH Apixaban 5 mg 05/25/19 11:15 05/27/19 09:40 Eliquis - PO 5 mg BID DOM Administration Atorvastatin Calcium 40 mg 05/25/19 22:00 05/26/19 21:08 Lipitor - PO 40 mg HS DOM Administration Budesonide/Formoterol Fumarate 2 puff 05/25/19 11:15 05/26/19 10:11 Symbicort 160/4.5mcg - IH 2 inh DAILY DOM Administration Carvedilol 12.5 mg 05/26/19 11:38 05/27/19 09:40 Coreg - PO 12.5 mg BID DOM Administration Docusate Sodium 100 mg 05/25/19 14:00 05/27/19 06:00 Colace - PO 100 mg TID DOM Administration Duloxetine HCl 30 mg 05/25/19 11:15 05/27/19 09:40 Cymbalta - PO 30 mg BID DOM Administration Gabapentin 300 mg 05/25/19 22:00 05/27/19 09:40 Neurontin - PO 300 mg BID DOM Administration Ceftriaxone Sodium 1 gm/ 50 mls @ 100 mls/hr 05/26/19 15:30 05/27/19 09:39 Dextrose IVPB 100 mls/hr DAILY DOM Administration Protocol Insulin Aspart 1 vial 05/26/19 16:30 05/27/19 06:00 Novolog Vial Sliding Scale - SQ 2 units ACHS DOM Administration Protocol Insulin Detemir 20 units 05/26/19 22:00 05/26/19 22:49 Levemir Vial SQ 20 units HS DOM Administration Levothyroxine Sodium 75 mcg 05/26/19 07:00 05/27/19 06:00 Synthroid - PO 75 mcg 0700 DOM Administration Magnesium Oxide 400 mg 05/25/19 11:15 05/27/19 09:40 Mag-Ox - PO 400 mg BID DOM Administration Montelukast Sodium 10 mg 05/25/19 22:00 05/26/19 21:08 Singulair - PO 10 mg HS DOM Administration Ranolazine 500 mg 05/25/19 22:00 05/27/19 09:40 Ranexa - PO 500 mg BID DOM Administration Vital Signs Period Temp Pulse Resp BP Sys/Mcgrath Pulse Ox Last 24 Hr 97.7 F-98.2 F 74-90 20-20 102-120/54-73 95-95 Constitutional: Yes: No Distress Eyes: Yes: Conjunctiva Clear Neck: Yes: Trachea Midline Respiratory: Yes: dec breath sounds at bases bilaterally Gastrointestinal: Yes: Soft, Abdomen, Obese (obese,NT) Cardiovascular: Yes: Regular Rate and Rhythm JVD: no Carotid Bruit: No PMI: Non-Displaced Heart Sounds: Yes: S1, S2 (RRR, no murmurs) Edema: no Peripheral Pulses WNL: Yes Neurological: Yes: Alert, Oriented no jaundice diaphoresis Psychiatric: Yes: WNL Echo: Report Reviewed ( Office May 2018--> moderately reduced LVEF, No sig valve disease.) Prior Cardiac Procedures: Cardiac Catheterization (non-obstructive CAD) echo 03/2019: lve, sev dec lvef, global hk, vamsi, rv tds, no sig valve path echo 05/2019 tds, mildly dilated LV, severe global hypok, RV nl CXR: clear lungs tele: sinus, occ PVCs EKG: sinus, nl intervals, lvh, lat twis - stable compared to prior a/p: 59F with NICM s/p primary prevention ICD, HTN, asthma here with dizziness, syncope. syncope: -pt appears to be volume depleted with mu and hypotension, similar to prior admission -improved with IV fluids, holding lasix -cont holding lasix Chronic systolic CHF: -appeared dry, now improved on IVF - severely reduced EF on recent echo -holding diuretic receiving IVF as above -entresto stopped last admission due to MU -restart home coreg -Routine office interrogation of ICD as outpatient ([employer]), no icd shocks Chronic HTN: -bp low here, improving-->restarted coreg mu: -holding diuretics, cont ivfs -renal following paroxysmal afib - cont eliquis, bb HLD - cont statin
--- NOTE | 2019-05-27 11:51 | PN ---
Progress Note, Physician History of Present Illness: doing well no complaints - Current Medication List Current Medications: Active Medications Albuterol/Ipratropium (Duoneb -) 1 amp NEB Q6H PRN PRN Reason: SHORTNESS OF BREATH Apixaban (Eliquis -) 5 mg PO BID [facility] Last Admin: 05/27/19 09:40 Dose: 5 mg Atorvastatin Calcium (Lipitor -) 40 mg PO [facility] Last Admin: 05/26/19 21:08 Dose: 40 mg Budesonide/Formoterol Fumarate (Symbicort 160/4.5mcg -) 2 puff IH DAILY [facility] Last Admin: 05/26/19 10:11 Dose: 2 inh Carvedilol (Coreg -) 12.5 mg PO BID [facility] Last Admin: 05/27/19 09:40 Dose: 12.5 mg Docusate Sodium (Colace -) 100 mg PO TID [facility] Last Admin: 05/27/19 06:00 Dose: 100 mg Duloxetine HCl (Cymbalta -) 30 mg PO BID [facility] Last Admin: 05/27/19 09:40 Dose: 30 mg Gabapentin (Neurontin -) 300 mg PO BID [facility] Last Admin: 05/27/19 09:40 Dose: 300 mg Ceftriaxone Sodium 1 gm/ (Dextrose) 50 mls @ 100 mls/hr IVPB DAILY [facility]; Protocol Last Admin: 05/27/19 09:39 Dose: 100 mls/hr Insulin Aspart (Novolog Vial Sliding Scale -) 1 vial SQ ACHS [facility]; Protocol Last Admin: 05/27/19 06:00 Dose: 2 units Insulin Detemir (Levemir Vial) 20 units SQ [facility] Last Admin: 05/26/19 22:49 Dose: 20 units Levothyroxine Sodium (Synthroid -) 75 mcg PO 0700 [facility] Last Admin: 05/27/19 06:00 Dose: 75 mcg Magnesium Oxide (Mag-Ox -) 400 mg PO BID [facility] Last Admin: 05/27/19 09:40 Dose: 400 mg Montelukast Sodium (Singulair -) 10 mg PO [facility] Last Admin: 05/26/19 21:08 Dose: 10 mg Ranolazine (Ranexa -) 500 mg PO BID [facility] Last Admin: 05/27/19 09:40 Dose: 500 mg - Objective Vital Signs: Vital Signs Temperature 98.1 F 05/27/19 01:54 Pulse Rate 81 05/27/19 08:37 Respiratory Rate 20 05/27/19 08:40 Blood Pressure 118/65 05/27/19 08:37 O2 Sat by Pulse Oximetry (%) 95 05/27/19 08:40 Constitutional: Yes: No Distress, Calm Cardiovascular: Yes: Regular Rate and Rhythm Respiratory: Yes: Regular, CTA Bilaterally Gastrointestinal: Yes: Normal Bowel Sounds, Soft Musculoskeletal: Yes: WNL Extremities: Yes: WNL Neurological: Yes: Alert, Oriented Psychiatric: Yes: Alert, Oriented Labs: CBC, BMP 05/25/19 05:07 05/27/19 06:48 INR, PTT INR 1.34 (0.83-1.09) H 05/25/19 05:07 Assessment/Plan Problem List - Problems (1) Syncope Code(s): R55 - SYNCOPE AND COLLAPSE Qualifiers: Syncope type: unspecified Qualified Code(s): R55 - Syncope and collapse (2) MU (acute kidney injury) Code(s): N17.9 - ACUTE KIDNEY FAILURE, UNSPECIFIED (3) Hyperlipidemia Code(s): E78.5 - HYPERLIPIDEMIA, UNSPECIFIED 4 uti plan urine cx awaited patient stable
--- NOTE | 2019-05-27 14:05 | PN ---
Progress Note, Physician History of Present Illness: Pt seen and examined at bedside. She is awake and alert. She denies shortness of breath. She denies lower ext edema. - Current Medication List Current Medications: Active Medications Albuterol/Ipratropium (Duoneb -) 1 amp NEB Q6H PRN PRN Reason: SHORTNESS OF BREATH Apixaban (Eliquis -) 5 mg PO BID [facility] Last Admin: 05/27/19 09:40 Dose: 5 mg Atorvastatin Calcium (Lipitor -) 40 mg PO [facility] Last Admin: 05/26/19 21:08 Dose: 40 mg Budesonide/Formoterol Fumarate (Symbicort 160/4.5mcg -) 2 puff IH DAILY [facility] Last Admin: 05/27/19 09:57 Dose: 1 inh Carvedilol (Coreg -) 12.5 mg PO BID [facility] Last Admin: 05/27/19 09:40 Dose: 12.5 mg Docusate Sodium (Colace -) 100 mg PO TID [facility] Last Admin: 05/27/19 06:00 Dose: 100 mg Duloxetine HCl (Cymbalta -) 30 mg PO BID [facility] Last Admin: 05/27/19 09:40 Dose: 30 mg Gabapentin (Neurontin -) 300 mg PO BID [facility] Last Admin: 05/27/19 09:40 Dose: 300 mg Ceftriaxone Sodium 1 gm/ (Dextrose) 50 mls @ 100 mls/hr IVPB DAILY [facility]; Protocol Last Admin: 05/27/19 09:39 Dose: 100 mls/hr Insulin Aspart (Novolog Vial Sliding Scale -) 1 vial SQ [facility]; Protocol Last Admin: 05/27/19 11:57 Dose: Not Given Insulin Detemir (Levemir Vial) 20 units SQ [facility] Last Admin: 05/26/19 22:49 Dose: 20 units Levothyroxine Sodium (Synthroid -) 75 mcg PO 0700 [facility] Last Admin: 05/27/19 06:00 Dose: 75 mcg Magnesium Oxide (Mag-Ox -) 400 mg PO BID [facility] Last Admin: 05/27/19 09:40 Dose: 400 mg Montelukast Sodium (Singulair -) 10 mg PO [facility] Last Admin: 05/26/19 21:08 Dose: 10 mg Ranolazine (Ranexa -) 500 mg PO BID [facility] Last Admin: 05/27/19 09:40 Dose: 500 mg - Objective Vital Signs: Vital Signs Temperature 98.1 F 05/27/19 01:54 Pulse Rate 81 05/27/19 08:37 Respiratory Rate 20 05/27/19 08:40 Blood Pressure 118/65 05/27/19 08:37 O2 Sat by Pulse Oximetry (%) 95 05/27/19 08:40 Constitutional: Yes: Calm Eyes: Yes: Conjunctiva Clear HENT: Yes: Atraumatic Neck: Yes: Supple Cardiovascular: Yes: S1, S2 Respiratory: Yes: CTA Bilaterally Gastrointestinal: Yes: Soft Genitourinary: Yes: WNL Musculoskeletal: Yes: WNL Edema: No Neurological: Yes: Oriented Psychiatric: Yes: Oriented Labs: CBC, BMP 05/25/19 05:07 05/27/19 06:48 INR, PTT INR 1.34 (0.83-1.09) H 05/25/19 05:07 Problem List - Problems (1) Syncope Code(s): R55 - SYNCOPE AND COLLAPSE Qualifiers: Syncope type: unspecified Qualified Code(s): R55 - Syncope and collapse (2) MU (acute kidney injury) Code(s): N17.9 - ACUTE KIDNEY FAILURE, UNSPECIFIED (3) Hyperlipidemia Code(s): E78.5 - HYPERLIPIDEMIA, UNSPECIFIED Assessment/Plan Current Medications Generic Name Dose Route Start Last Admin Trade Name Freq PRN Reason Stop Dose Admin Albuterol/Ipratropium 1 amp 05/25/19 11:10 Duoneb - NEB Q6H PRN SHORTNESS OF BREATH Apixaban 5 mg 05/25/19 11:15 05/27/19 09:40 Eliquis - PO 5 mg BID DOM Administration Atorvastatin Calcium 40 mg 05/25/19 22:00 05/26/19 21:08 Lipitor - PO 40 mg HS DOM Administration Budesonide/Formoterol Fumarate 2 puff 05/25/19 11:15 05/27/19 09:57 Symbicort 160/4.5mcg - IH 1 inh DAILY DOM Administration Carvedilol 12.5 mg 05/26/19 11:38 05/27/19 09:40 Coreg - PO 12.5 mg BID DOM Administration Docusate Sodium 100 mg 05/25/19 14:00 05/27/19 14:04 Colace - PO 100 mg TID DOM Administration Duloxetine HCl 30 mg 05/25/19 11:15 05/27/19 09:40 Cymbalta - PO 30 mg BID DOM Administration Gabapentin 300 mg 05/25/19 22:00 05/27/19 09:40 Neurontin - PO 300 mg BID DOM Administration Ceftriaxone Sodium 1 gm/ 50 mls @ 100 mls/hr 05/26/19 15:30 05/27/19 09:39 Dextrose IVPB 100 mls/hr DAILY [facility] Administration Protocol Insulin Aspart 1 vial 05/26/19 16:30 05/27/19 11:57 Novolog Vial Sliding Scale - SQ Not Given ACHS [facility] Protocol Insulin Detemir 20 units 05/26/19 22:00 05/26/19 22:49 Levemir Vial SQ 20 units HS DOM Administration Levothyroxine Sodium 75 mcg 05/26/19 07:00 05/27/19 06:00 Synthroid - PO 75 mcg 0700 DOM Administration Magnesium Oxide 400 mg 05/25/19 11:15 05/27/19 09:40 Mag-Ox - PO 400 mg BID DOM Administration Montelukast Sodium 10 mg 05/25/19 22:00 05/26/19 21:08 Singulair - PO 10 mg HS DOM Administration Ranolazine 500 mg 05/25/19 22:00 05/27/19 09:40 Ranexa - PO 500 mg BID DOM Administration Impression 1. MU 2. syncope 3. asthma 4. chf 5. obesity 6. hypotension 7. a-fib Plan - volumes status stable - hold lasix - pt off of fluids - renal function is stable - cardio input appreciated
--- NOTE | 2019-05-27 22:31 | PN ---
Progress Note, Physician - Current Medication List Current Medications: Active Medications Albuterol/Ipratropium (Duoneb -) 1 amp NEB Q6H PRN PRN Reason: SHORTNESS OF BREATH Apixaban (Eliquis -) 5 mg PO BID [facility] Last Admin: 05/27/19 09:40 Dose: 5 mg Atorvastatin Calcium (Lipitor -) 40 mg PO HS [facility] Last Admin: 05/26/19 21:08 Dose: 40 mg Budesonide/Formoterol Fumarate (Symbicort 160/4.5mcg -) 2 puff IH DAILY [facility] Last Admin: 05/27/19 09:57 Dose: 1 inh Carvedilol (Coreg -) 12.5 mg PO BID [facility] Last Admin: 05/27/19 09:40 Dose: 12.5 mg Docusate Sodium (Colace -) 100 mg PO TID [facility] Last Admin: 05/27/19 14:04 Dose: 100 mg Duloxetine HCl (Cymbalta -) 30 mg PO BID [facility] Last Admin: 05/27/19 09:40 Dose: 30 mg Gabapentin (Neurontin -) 300 mg PO BID [facility] Last Admin: 05/27/19 09:40 Dose: 300 mg Ceftriaxone Sodium 1 gm/ (Dextrose) 50 mls @ 100 mls/hr IVPB DAILY [facility]; Protocol Last Admin: 05/27/19 09:39 Dose: 100 mls/hr Insulin Aspart (Novolog Vial Sliding Scale -) 1 vial SQ ACHS [facility]; Protocol Last Admin: 05/27/19 16:36 Dose: 2 units Insulin Detemir (Levemir Vial) 20 units SQ [facility] Last Admin: 05/26/19 22:49 Dose: 20 units Levothyroxine Sodium (Synthroid -) 75 mcg PO 0700 [facility] Last Admin: 05/27/19 06:00 Dose: 75 mcg Magnesium Oxide (Mag-Ox -) 400 mg PO BID [facility] Last Admin: 05/27/19 09:40 Dose: 400 mg Montelukast Sodium (Singulair -) 10 mg PO HS [facility] Last Admin: 05/26/19 21:08 Dose: 10 mg Ranolazine (Ranexa -) 500 mg PO BID [facility] Last Admin: 05/27/19 09:40 Dose: 500 mg - Objective Vital Signs: Vital Signs Temperature 97.9 F 05/27/19 17:00 Pulse Rate 84 05/27/19 17:00 Respiratory Rate 20 05/27/19 17:00 Blood Pressure 130/71 05/27/19 17:00 O2 Sat by Pulse Oximetry (%) 95 05/27/19 08:40 Labs: CBC, BMP 05/25/19 05:07 05/27/19 06:48 INR, PTT INR 1.34 (0.83-1.09) H 05/25/19 05:07
[2019-05-27] MEDS ORDERED: INSULIN (NOVOLOG) ASPART 100 UNITS/ML 10ML VIAL ONE (22:35)
[2019-05-27] MEDS: ATORVASTATIN CA 40 MG TABLET (FP) PO SCH (22:39)
[2019-05-27] MEDS: MONTELUKAST NA 10 MG TABLET PO SCH (22:39)
[2019-05-27] MEDS: INSULIN (LEVEMIR) 100 UNITS/ML UNITS SQ SCH (22:40)
[2019-05-28 06:06] VITALS: TEMP 97.6
[2019-05-28] MEDS: LEVOTHYROXINE NA 75 MCG TABLET (FP) PO SCH (06:08)
[2019-05-28] MEDS: DOCUSATE SODIUM 100 MG CAPSULE (FP) PO SCH (06:08)
[2019-05-28] MEDS: INSULIN SLIDING SCALE (NOVOLOG) 1 VIAL SQ SCH (06:09)
[2019-05-28] MEDS ORDERED: DEXTROSE 5%-WATER - 50 ML IVPB ONE (08:23)
[2019-05-28] MEDS ORDERED: cefTRIAXone SODIUM 1 GM VIAL ONE (08:23)
[2019-05-28 08:51] VITALS: BP 117/60; PULSE 73
[2019-05-28] MEDS: CARVEDILOL 12.5 MG TABLET (FP) PO SCH (09:36)
[2019-05-28] MEDS: MAGNESIUM OXIDE 400 MG TABLET (FP) PO SCH (09:36)
[2019-05-28] MEDS: CEFTRIAXONE 1 GM in DEXTROSE 5%-WATER - 50 ML IVPB SCH (09:36)
[2019-05-28] MEDS: GABAPENTIN 300 MG CAPSULE (FP) PO SCH (09:36)
[2019-05-28] MEDS: DULoxetine HCL 30 MG CAPSULE.DR PO SCH (09:36)
[2019-05-28] MEDS: APIXABAN 5 MG TABLET PO SCH (09:36)
[2019-05-28] MEDS: BUDESONIDE/FORMETEROL FUMARATE 160/4.5 mcg INHALER IH SCH (09:37)
--- NOTE | 2019-05-28 09:40 | PN ---
Progress Note, Physician Chief Complaint: Feeling well TELE: NSR History of Present Illness: BP stable - Current Medication List Current Medications: Active Medications Albuterol/Ipratropium (Duoneb -) 1 amp NEB Q6H PRN PRN Reason: SHORTNESS OF BREATH Apixaban (Eliquis -) 5 mg PO BID [facility] Last Admin: 05/28/19 09:36 Dose: 5 mg Atorvastatin Calcium (Lipitor -) 40 mg PO [facility] Last Admin: 05/27/19 22:39 Dose: 40 mg Budesonide/Formoterol Fumarate (Symbicort 160/4.5mcg -) 2 puff IH DAILY [facility] Last Admin: 05/28/19 09:37 Dose: 2 puff Carvedilol (Coreg -) 12.5 mg PO BID [facility] Last Admin: 05/28/19 09:36 Dose: 12.5 mg Docusate Sodium (Colace -) 100 mg PO TID [facility] Last Admin: 05/28/19 06:08 Dose: 100 mg Duloxetine HCl (Cymbalta -) 30 mg PO BID [facility] Last Admin: 05/28/19 09:36 Dose: 30 mg Gabapentin (Neurontin -) 300 mg PO BID [facility] Last Admin: 05/28/19 09:36 Dose: 300 mg Ceftriaxone Sodium 1 gm/ (Dextrose) 50 mls @ 100 mls/hr IVPB DAILY [facility]; Protocol Last Admin: 05/28/19 09:36 Dose: 100 mls/hr Insulin Aspart (Novolog Vial Sliding Scale -) [address] [facility]; Protocol Last Admin: 05/28/19 06:09 Dose: 2 units Insulin Detemir (Levemir Vial) 20 units SQ [facility] Last Admin: 05/27/19 22:40 Dose: 20 units Levothyroxine Sodium (Synthroid -) 75 mcg PO 0700 [facility] Last Admin: 05/28/19 06:08 Dose: 75 mcg Magnesium Oxide (Mag-Ox -) 400 mg PO BID [facility] Last Admin: 05/28/19 09:36 Dose: 400 mg Montelukast Sodium (Singulair -) 10 mg PO [facility] Last Admin: 05/27/19 22:39 Dose: 10 mg Ranolazine (Ranexa -) 500 mg PO BID [facility] Last Admin: 05/27/19 22:40 Dose: 500 mg - Objective Vital Signs: Vital Signs Temperature 97.6 F 05/28/19 08:49 Pulse Rate 73 05/28/19 08:49 Respiratory Rate 20 05/28/19 08:50 Blood Pressure 117/60 05/28/19 08:49 O2 Sat by Pulse Oximetry (%) 98 05/28/19 08:50 Constitutional: Yes: No Distress, Calm Eyes: Yes: Conjunctiva Clear Cardiovascular: Yes: Regular Rate and Rhythm Respiratory: Yes: CTA Bilaterally (No rales or active wheezing.) Gastrointestinal: Yes: Soft, Abdomen, Obese Edema: No Neurological: Yes: Alert, Oriented ...Motor Strength: WNL Labs: CBC, BMP 05/25/19 05:07 05/27/19 06:48 INR, PTT INR 1.34 (0.83-1.09) H 05/25/19 05:07 - ....Imaging EKG: Image Reviewed Assessment/Plan Echo: Report Reviewed ( Office May 2018--> moderately reduced LVEF, No sig valve disease.) Prior Cardiac Procedures: Cardiac Catheterization (non-obstructive CAD) echo 03/2019: lve, sev dec lvef, global hk, vamsi, rv tds, no sig valve path echo 05/2019 tds, mildly dilated LV, severe global hypok, RV nl CXR: clear lungs tele: sinus, occ PVCs EKG: sinus, nl intervals, lvh, lat twis - stable compared to prior A/P: 59F with NICM s/p primary prevention ICD, HTN, asthma here with dizziness, syncope. Syncope: -pt appears to be volume depleted with mu and hypotension, similar to prior admission -improved with IV fluids, holding lasix -cont holding lasix for now. Chronic systolic CHF: -appeared dry, now improved on IVF - severely reduced EF on recent echo -holding diuretic receiving IVF as above -entresto stopped last admission due to MU -restarted home coreg -Routine office interrogation of ICD as outpatient (Oh BiBi), no icd shocks Chronic HTN: -bp low initially, now improved. Coreg resumed UM: -holding diuretics. D/C IVF. Can prob resume PO Lasix at reduced dose by Friday. -renal following -Will need close outpatient f/u of renal fxn and lytes PAF: - cont eliquis, bb HLD - cont statin
--- NOTE | 2019-05-28 09:58 | PN ---
Progress Note, Physician History of Present Illness: stable no new issues cx noted sensitivities noted - Current Medication List Current Medications: Active Medications Albuterol/Ipratropium (Duoneb -) 1 amp NEB Q6H PRN PRN Reason: SHORTNESS OF BREATH Apixaban (Eliquis -) 5 mg PO BID [facility] Last Admin: 05/28/19 09:36 Dose: 5 mg Atorvastatin Calcium (Lipitor -) 40 mg PO [facility] Last Admin: 05/27/19 22:39 Dose: 40 mg Budesonide/Formoterol Fumarate (Symbicort 160/4.5mcg -) 2 puff IH DAILY [facility] Last Admin: 05/28/19 09:37 Dose: 2 puff Carvedilol (Coreg -) 12.5 mg PO BID [facility] Last Admin: 05/28/19 09:36 Dose: 12.5 mg Docusate Sodium (Colace -) 100 mg PO TID [facility] Last Admin: 05/28/19 06:08 Dose: 100 mg Duloxetine HCl (Cymbalta -) 30 mg PO BID [facility] Last Admin: 05/28/19 09:36 Dose: 30 mg Gabapentin (Neurontin -) 300 mg PO BID [facility] Last Admin: 05/28/19 09:36 Dose: 300 mg Insulin Aspart (Novolog Vial Sliding Scale -) 1 vial SQ [facility]; Protocol Last Admin: 05/28/19 06:09 Dose: 2 units Insulin Detemir (Levemir Vial) 20 units SQ [facility] Last Admin: 05/27/19 22:40 Dose: 20 units Levothyroxine Sodium (Synthroid -) 75 mcg PO 0700 [facility] Last Admin: 05/28/19 06:08 Dose: 75 mcg Magnesium Oxide (Mag-Ox -) 400 mg PO BID [facility] Last Admin: 05/28/19 09:36 Dose: 400 mg Montelukast Sodium (Singulair -) 10 mg PO [facility] Last Admin: 05/27/19 22:39 Dose: 10 mg Ranolazine (Ranexa -) 500 mg PO BID [facility] Last Admin: 05/27/19 22:40 Dose: 500 mg - Objective Vital Signs: Vital Signs Temperature 97.6 F 05/28/19 08:49 Pulse Rate 73 05/28/19 08:49 Respiratory Rate 20 05/28/19 08:50 Blood Pressure 117/60 05/28/19 08:49 O2 Sat by Pulse Oximetry (%) 98 05/28/19 08:50 Constitutional: Yes: No Distress, Calm Cardiovascular: Yes: S1, S2 Respiratory: Yes: Regular, CTA Bilaterally Gastrointestinal: Yes: Normal Bowel Sounds, Soft Musculoskeletal: Yes: WNL Extremities: Yes: WNL Neurological: Yes: Alert, Oriented Psychiatric: Yes: Alert, Oriented Labs: CBC, BMP 05/25/19 05:07 05/27/19 06:48 INR, PTT INR 1.34 (0.83-1.09) H 05/25/19 05:07 Assessment/Plan Problem List - Problems (1) Syncope Code(s): R55 - SYNCOPE AND COLLAPSE Qualifiers: Syncope type: unspecified Qualified Code(s): R55 - Syncope and collapse (2) MU (acute kidney injury) Code(s): N17.9 - ACUTE KIDNEY FAILURE, UNSPECIFIED (3) Hyperlipidemia Code(s): E78.5 - HYPERLIPIDEMIA, UNSPECIFIED 4 uti plan cx results noted will change abx to oral augmentin to be taken for 7 days rest as per the team
[2019-05-28] MEDS ORDERED: AMOX TR/POT CLAV 875MG/125MG TABLETS (FP) PO SCH (17:30)
== END 2019-05-28 12:13 | disposition home or self-care (01) | DRG 683 ==
LOC: JER 04:29 → JERBED 06:33 → J4W 18:35
PROVIDERS: ADMIT Internal Medicine; ATTEND Internal Medicine
DX: N17.9 Acute kidney failure, unspecified (principal); Z68.41 Body mass index [BMI] 40.0-44.9, adult; I50.22 Chronic systolic (congestive) heart failure; I42.8 Other cardiomyopathies; N39.0 Urinary tract infection, site not specified; I25.10 Atherosclerotic heart disease of native coronary artery without angina pectoris; B95.2 Enterococcus as the cause of diseases classified elsewhere; I11.0 Hypertensive heart disease with heart failure; J44.9 Chronic obstructive pulmonary disease, unspecified; I48.0 Paroxysmal atrial fibrillation; E66.01 Morbid (severe) obesity due to excess calories; I25.2 Old myocardial infarction; F32.9 Major depressive disorder, single episode, unspecified; I95.9 Hypotension, unspecified; E03.9 Hypothyroidism, unspecified; E11.42 Type 2 diabetes mellitus with diabetic polyneuropathy; R55 Syncope and collapse; D64.9 Anemia, unspecified; G47.33 Obstructive sleep apnea (adult) (pediatric); E11.9 Type 2 diabetes mellitus without complications; Z95.5 Presence of coronary angioplasty implant and graft; Z87.11 Personal history of peptic ulcer disease; Z95.0 Presence of cardiac pacemaker; Z96.653 Presence of artificial knee joint, bilateral
CPT/HCPCS: 36415; 70450-TC; 71045-TC-FY; 72125-TC; 80053; 81003; 82436; 82550; 82565; 82803; 82962; 83735; 83880; 84133; 84300; 84484; 85025; 85610; 87086; 87186; 93005; 93010; 99285-25; J7030

== ENCOUNTER 2019-08-13 11:02 | Emergency (ER) | payer BC, OTHER ==
[2019-08-13 11:13] VITALS: TEMP 98.3; BMI 38.7
--- NOTE | 2019-08-13 12:02 | PDOC ---
Attending Attestation - Resident Resident Name: RickyAlexi - ED Attending Attestation I have performed the following: I have examined & evaluated the patient, The case was reviewed & discussed with the resident, I agree w/resident's findings & plan, Exceptions are as noted - HPI HPI: 08/13/19 13:53 Ms Cho is a 59 yo F h/o DM, HTN, COPD, CHF, hypothyroidism 2/2 hashimotos, NSTEMI, CKD, p/w right sided belly pain for three days and whole body weakness. Pain is intermittent, non-radiating, in the right abdomen, lasting ~1hour per episode, and has not been relieved by pillows / hot packs / or PO Tylenol. Pt reports fever of 103 3 days ago No diarrhea All: chlorpheniramine, cimetidine, codeine, ibuprofen, latex Meds: per chart PMH: as above PSH: hysterectomy, cholecystectomy, b/l knee surgery, 2 toes amputated 08/13/19 14:22 - Physicial Exam PE: 08/13/19 12:02 GENERAL: The patient is in no acute distress. ENT: Ears normal, nares patent, oropharynx clear without exudates. Moist mucous membranes. No tonsillar enlargement, no exudates NECK: Normal range of motion, supple LUNGS: Breath sounds equal, clear to auscultation bilaterally. No wheezes, and no crackles. HEART:Regular rate and rhythm, normal S1 and S2 without murmur, rub or gallop. ABDOMEN: Soft, right lower abdominal tenderness, no involuntary guarding, no rebound EXTREMITIES: Normal range of motion, no edema. NEUROLOGICAL: Cranial nerves II through XII grossly intact. Normal speech. No focal neurological deficits. SKIN: Warm, Dry, normal turgor, no rashes or lesions noted. 08/13/19 14:23 - Medical Decision Making 08/13/19 14:25 59 yo F presenting with abdominal pain located on the right side of her abdomen Fever 1 day after the start of her symptoms Pt is unable to tolerate po DD: Appendicitis, diverticulitis, intra-abdominal abscess Will do Labs CT Re Assess Tylenol for pain EKG: NSR rate of 92 bpm, axis nml, no st elevation, LVH 08/13/19 14:38 Laboratory Tests 08/13/19 08/13/19 08/13/19 12:25 12:25 12:25 WBC 8.3 Hgb 12.8 Hct 39.2 Plt Count 298 Sodium 133 L Potassium 4.4 Chloride 98 Carbon Dioxide 26 BUN 17.6 Creatinine 1.3 Est GFR (CKD-EPI)NonAf 44.87 Lactic Acid 1.5 Creatine Kinase 163 CK-MB (CK-2) < 1.0 Trop[address] pending 08/13/19 16:35 CT- no acute pathology Pt re assessed She is feeling better Will plan to discharge to home
--- NOTE | 2019-08-13 12:14 | PDOC ---
History of Present Illness - General Chief Complaint: Weakness Stated Complaint: COLD SYMPTOMS Time Seen by Provider: 08/13/19 11:45 History Source: Patient Exam Limitations: No Limitations - History of Present Illness Initial Comments: 08/13/19 12:09 Source: Patient HPI: 59yo woman with pmh DM, HTN, COPD, CHF, hypothyroidism 2/2 hashimotos, NSTEMI, CKD, p/w right sided belly pain for three days and whole body weakness. Pain is intermittent, non-radiating, in the right abdomen, lasting ~1hour per episode, and has not been relieved by pillows / hot packs / or PO Tylenol. Patient endorses concurrent fevers, chills, palpitations, poor appetite, and nausea. Denies chest pain, diaphoresis, diarrhea, constipation, urinary symptoms. Patient currently on a heart monitor since last week for multiple syncopal episodes Reports holocranial headache with prior workup at PCP Swallowing problem previously d/w PCP, not limiting food/fluid intake All: chlorpheniramine, cimetidine, codeine, ibuprofen, latex Meds: per chart PMH: as above PSH: hysterectomy, cholecystectomy, b/l knee surgery, 2 toes amputated Past History - Travel Traveled outside of the country in the last 30 days: No Close contact w/someone who was outside of country & ill: No - Past Medical History Allergies/Adverse Reactions: Allergies Allergy/AdvReac Type Severity Reaction Status Date / Time tomato Allergy Mild Hives Verified 08/13/19 11:11 chlorpheniramine Allergy Verified 08/13/19 11:11 cimetidine Allergy Verified 08/13/19 11:11 codeine [Codeine] Allergy Verified 08/13/19 11:11 ibuprofen Allergy Verified 08/13/19 11:11 latex [Latex] Allergy Verified 08/13/19 11:11 Latex, Natural Rubber Allergy Verified 08/13/19 11:11 pseudoephedrine Allergy Verified 08/13/19 11:11 salmeterol xinafoate Allergy Verified 08/13/19 11:11 [From Advair Diskus] shellfish derived Allergy Verified 08/13/19 11:11 Sulfa (Sulfonamide Allergy Verified 08/13/19 11:11 Antibiotics) [Sulfa(Sulfonamide Antibiotics)] Chocolate Allergy Mild Hives Uncoded 08/13/19 11:11 shrimp Allergy Mild Hives Uncoded 08/13/19 11:11 Home Medications: Ambulatory Orders Atorvastatin Ca [Lipitor] 40 mg PO HS 08/09/16 Insulin Glargine,Hum.rec.anlog [Lantus Solostar PEN -] 20 units SQ AM 08/09/16 Budesonide/Formeterol Fumarate [SYMBICORT 160/4.5mcg -] 2 puff PO BID 10/14/16 Linagliptin/Metformin HCl [Jentadueto 2.5 mg-1000 mg Tab] 1 tab PO BID 10/14/16 Albuterol 2.5/Ipratropium 0.5 [Duoneb -] 1 amp NEB Q6H PRN #90 amp 05/21/19 Levothyroxine [Synthroid -] 75 mcg PO DAILY #30 tablet 05/21/19 Carvedilol [Coreg -] 3.125 mg PO BID 08/13/19 Dexlansoprazole [Dexilant] 60 mg PO DAILY 08/13/19 Gabapentin [Neurontin -] 300 mg PO TID 08/13/19 Insulin Glargine,Hum.rec.anlog [Lantus Solostar PEN (NF)] 10 units SQ HS Spironolactone [Aldactone] 25 mg PO DAILY 08/13/19 Anemia: Yes Asthma: Yes Cancer: No Cardiac Disorders: Yes (AR X 2, pacemaker) CVA: No COPD: Yes (sleep apnea) CHF: Yes (S/P ICD) DVT: No Dementia: No Diabetes: Yes GI Disorders: Yes (PEPTIC ULCER) Disorders: No HTN: Yes Hypercholesterolemia: Yes Liver Disease: No Psychiatric Problems: Yes (DEPRESSION) Seizures: No Thyroid Disease: Yes - Surgical History Abdominal Surgery: No Appendectomy: No Cardiac Surgery: Yes (pacemaker and stents) Cholecystectomy: Yes Lung Surgery: No Neurologic Surgery: No Orthopedic Surgery: Yes (bilateral knee replacement) - Immunization History Immunization Up to Date: No - Suicide/Smoking/Psychosocial Hx Smoking Status: No Smoking History: Never smoked Have you smoked in the past 12 months: No Number of Cigarettes Smoked Daily: 0 Hx Alcohol Use: No Drug/Substance Use Hx: No Substance Use Type: None Hx Substance Use Treatment: No Review of Systems - Review of Systems Able to Perform ROS?: Yes Is the patient limited Syriac proficient: No Constitutional: Yes: See HPI, Chills, Fever, Weakness. No: Diaphoresis HEENTM: No: Eye Pain, Blurred Vision, Nose Congestion, Throat Pain, Throat Swelling, Mouth Pain Respiratory: No: Cough, Shortness of Breath, Wheezing Cardiac (ROS): Yes: See HPI, Palpitations, Syncope (not recently). No: Chest Pain, Edema, Irregular Heart Rate, Chest Tightness ABD/GI: Yes: See HPI, Difficulty Swallowing, Nausea, Poor Appetite. No: Abdominal Distended, Constipated, Diarrhea, Poor Fluid Intake, Vomiting : No: Burning, Dysuria, Discharge, Pain Musculoskeletal: No: Back Pain, Joint Pain, Muscle Weakness Integumentary: No: Bruising, Change in Color, Pruritus, Rash Neurological: Yes: See HPI, Headache. No: Numbness, Tingling, Weakness Psychiatric: No: Anxiety, Depression Endocrine: No: Excessive Sweating, Flushing, Intolerance to Cold, Intolerance to Heat Hematologic/Lymphatic: No: Anemia, Blood Clots, Easy Bleeding, Easy Bruising All Other Systems: Reviewed and Negative *Physical Exam - Vital Signs Last Vital Signs Temp Pulse Resp BP Pulse Ox 98.3 F 102 H 18 124/93 98 08/13/19 11:11 08/13/19 11:11 08/13/19 11:11 08/13/19 11:11 08/13/19 11:11 - Physical Exam Comments: 08/13/19 13:24 Vitals reviewed, notable for tachycardia to 102, otherwise normal Gen: obese woman, resting in bed, appears uncomfortable on the right side HEENT: NCAT, EOMI, MMM, trachea midline, normal morphologies CV: RRR, nl s1/s2, heart sounds distant, difficult to assess murmurs Pulm: CTABL, normal WOB, no wheezes / rales / rhonchi Abd: Soft, nondistended, surgical scars around the umbilicus, TTP on entire right side Ext: WWP, normal clubbing / cyanosis / edema Neuro: alert and oriented, MAEE, CN grossly intact Pulses: 2+ radial and PT ED Treatment Course - LABORATORY CBC & Chemistry Diagram: 08/13/19 12:25 08/13/19 12:25 Medical Decision Making - Medical Decision Making 08/13/19 12:14 59yo woman with pmh DM, HTN, COPD, CHF, hypothyroidism 2/2 hashimotos, NSTEMI, CKD, p/w right sided belly pain for three days and whole body weakness. History notable for anorexia, nausea, subacute pain, weakness, prior cholecystectomy, normal bowel habits. Physical notable for tachycardia, tenderness on palpation. Concerning for appendicitis, retained CBD stone?, colitis, SBO, r/o ACS. -CTAP with PO contrast (started 12:40) -CBC / CMP / CP / Lipase / Lactate / BGM -EKG / CXR -Zosyn and 1g IV Tylenol for nausea and pain 08/13/19 14:18 -CBC without leukocytosis or anemia -CMP with mild hyponatremia -Lactate negative -LFTs wnl -Mild troponemia (0.05) lowest every obtained here -Lipase 171 08/13/19 14:22 -CTAP at 2:[address] availability 08/13/19 14:59 -Pt taken to CT, pending read 08/13/19 16:20 -CT without signs of acute intra-abdominal process -Patient feeling much better after zofran / tylenol -Reports pain has resolved and she is ready to go home. -Effectively ruled out occult infection, acute intra-abdominal processes, ACS. -Patient is HDS, feeling well, and safe for discharge with follow up Dispo: Home *DC/Admit/Observation/Transfer Diagnosis at time of Disposition: Abdominal pain Qualifiers: Abdominal location: unspecified location Qualified Code(s): R10.9 - Unspecified abdominal pain - Discharge Dispostion Disposition: HOME Condition at time of disposition: Improved Decision to Admit order: No - Referrals - Patient Instructions Printed Discharge Instructions: DI for Abdominal Pain-Adult Additional Instructions: Continue to take tylenol as needed for your pain. Please call your primary care doctor within the next day and arrange followup in the next week. Don't hesitate to return to the ED for any new or concerning symptoms including but not limited to fever / chills, worsening pain. - Post Discharge Activity
[2019-08-13] MEDS ORDERED: ONDANSETRON 4 MG/2 ML VIAL IVPUSH ONE (12:20)
[2019-08-13] MEDS ORDERED: ONDANSETRON 4 MG/2 ML VIAL ONE (12:22)
[2019-08-13 12:36] LABS: BASO % 1.4 % (0-2.0); EOS % 1.2 % (0-4.5); HEMATOCRIT 39.2 % (32.4-45.2); HEMOGLOBIN 12.8 GM/dL (10.7-15.3); LYMPH % 28.8 % (8-40); MCH 27.6 pg (25.7-33.7); MCHC 32.6 g/dl (32.0-36.0); MEAN CELL VOLUME 84.7 fl (80-96); MEAN PLT VOLUME 9.2 fl (7.5-11.1); MONO % 7.5 % (3.8-10.2); NEUT % 61.1 % (42.8-82.8); PLATELET COUNT 298 K/MM3 (134-434); RBC 4.62 M/mm3 (3.60-5.2); RDW 16.5 % (11.6-15.6); WHITE BLOOD COUNT 8.3 K/mm3 (4.0-10.0)
[2019-08-13] MEDS ORDERED: ACETAMINOPHEN 1000 MG/100 ML VIAL (NON FORMULARY) IVPB ONE (12:43)
[2019-08-13 12:52] LABS: ALBUMIN 3.8 g/dl (3.4-5.0); ALK PHOS 84 U/L (45-117); ANION GAP 9 MMOL/L (8-16); BILIRUBIN,TOTAL 0.4 mg/dL (0.2-1); BLOOD UREA NITROGEN 17.6 mg/dL (7-18); CALCIUM 9.5 mg/dL (8.5-10.1); CHLORIDE 98 mmol/L (98-107); CO2 26 mmol/L (21-32); CREATININE 1.3 mg/dL (0.55-1.3); GLUCOSE,RANDOM 96 mg/dL (74-106); LIPASE 171 U/L (73-393); POTASSIUM 4.4 mmol/L (3.5-5.1); SGOT/AST 18 U/L (15-37); SGPT/ALT 11 U/L (13-61); SODIUM 133 mmol/L (136-145); TOT PROT 7.8 g/dl (6.4-8.2)
[2019-08-13] MEDS ORDERED: ACETAMINOPHEN INJECTION 100 ML IVPB ONE (12:57)
--- NOTE | 2019-08-13 13:52 | EKG ---
Test Reason : Blood Pressure : / mmHG Vent. Rate : 092 BPM Atrial Rate : 092 BPM P-R Int : 138 ms QRS Dur : 120 ms QT Int : 404 ms P-R-T Axes : 031 -23 086 degrees QTc Int : 499 ms POOR DATA QUALITY, INTERPRETATION MAY BE ADVERSELY AFFECTED NORMAL SINUS RHYTHM LEFT VENTRICULAR HYPERTROPHY WITH QRS WIDENING NONSPECIFIC ST ABNORMALITY LEFT AXIS DEVIATION Confirmed by OMAR SANCHEZ MD ([id number]) on 08/13/2019 1:52:25 PM Referred By: Confirmed By:OMAR SANCHEZ MD
[2019-08-13] MEDS ORDERED: SODIUM CHLORIDE 250 ML IV STA (14:57)
[2019-08-13 16:43] VITALS: BP 105/65; PULSE 84
== END 2019-08-13 16:43 | disposition home or self-care (01) ==
LOC: JER 11:02
PROC: 3E033NZ Introduction of Analgesics, Hypnotics, Sedatives into Peripheral Vein, Percutaneous Approach (ICD-10-PCS; principal; 2019-08-13)
PROC: 3E033GC Introduction of Other Therapeutic Substance into Peripheral Vein, Percutaneous Approach (ICD-10-PCS; 2019-08-13)
DX: R10.9 Unspecified abdominal pain (principal); E11.9 Type 2 diabetes mellitus without complications; I10 Essential (primary) hypertension; J44.9 Chronic obstructive pulmonary disease, unspecified; E03.9 Hypothyroidism, unspecified; E06.3 Autoimmune thyroiditis; I50.9 Heart failure, unspecified
CPT/HCPCS: 36415; 71045-TC-FY; 74176-TC; 80053; 82550; 82553; 83605; 83690; 84484; 85025; 93005; 93010; 96374; 96375; 99284-25; J0131

== ENCOUNTER 2019-10-10 12:21 | Inpatient (IN) | payer BC, OTHER ==
[2019-10-10] MEDS ORDERED: DEXAMETHASONE SOD PHOSPHATE 10 MG/1 ML VIAL ONE (12:27)
[2019-10-10] MEDS ORDERED: ALBUTEROL SO4 2.5/IPRATROPIUM 0.5 INH SOL 3 ML VIAL.NEB. NEB ONE ×2 (12:27→12:32)
--- NOTE | 2019-10-10 12:38 | PDOC ---
History of Present Illness - General Chief Complaint: Chest Pain Stated Complaint: DIFF BREATHING, CHEST PAIN Time Seen by Provider: 10/10/19 12:36 - History of Present Illness Initial Comments: 10/10/19 12:38 59 yo F PMH IDDM, HTN, asthma, COPD, CHF, hypothyroidism 2/2 Hashimotos, NSTEMI , CKD, [employer] pacemaker placed for "weak heart", p/w SOB and chest pain. Symptoms began around 0900, initially with SOB that was not alleviated with albuterol treatments at home. Then developed CP shortly thereafter, sharp, sternal, radiating into back and down her left arm, felt similar to her previous LA. Took two aspirin with relief, called 911 for ongoing SOB, received two more aspirin, 2X Duoneb, and Decadron. CP completely resolved, ongoing SOB. Specifically denies CP, abd pain, N/V, fevers/chills, AGUERO. Reports having URI symptoms yesterday. Past History - Past Medical History Allergies/Adverse Reactions: Allergies Allergy/AdvReac Type Severity Reaction Status Date / Time tomato Allergy Mild Hives Verified 10/10/19 12:37 chlorpheniramine Allergy Verified 10/10/19 12:37 cimetidine Allergy Verified 10/10/19 12:37 codeine [Codeine] Allergy Verified 10/10/19 12:37 ibuprofen Allergy Verified 10/10/19 12:37 latex [Latex] Allergy Verified 10/10/19 12:37 Latex, Natural Rubber Allergy Verified 10/10/19 12:37 pseudoephedrine Allergy Verified 10/10/19 12:37 salmeterol xinafoate Allergy Verified 10/10/19 12:37 [From Advair Diskus] shellfish derived Allergy Verified 10/10/19 12:37 Sulfa (Sulfonamide Allergy Verified 10/10/19 12:37 Antibiotics) [Sulfa(Sulfonamide Antibiotics)] Chocolate Allergy Mild Hives Uncoded 10/10/19 12:37 shrimp Allergy Mild Hives Uncoded 10/10/19 12:37 Home Medications: Ambulatory Orders Atorvastatin Ca [Lipitor] 40 mg PO HS 08/09/16 Insulin Glargine,Hum.rec.anlog [Lantus Solostar PEN -] 20 units SQ AM 08/09/16 Budesonide/Formeterol Fumarate [SYMBICORT 160/4.5mcg -] 2 puff PO BID 10/14/16 Linagliptin/Metformin HCl [Jentadueto 2.5 mg-1000 mg Tab] 1 tab PO BID 10/14/16 Albuterol 2.5/Ipratropium 0.5 [Duoneb -] 1 amp NEB Q6H PRN #90 amp 05/21/19 Levothyroxine [Synthroid -] 75 mcg PO DAILY #30 tablet 05/21/19 Carvedilol [Coreg -] 3.125 mg PO BID 08/13/19 Dexlansoprazole [Dexilant] 60 mg PO DAILY 08/13/19 Gabapentin [Neurontin -] 300 mg PO TID 08/13/19 Insulin Glargine,Hum.rec.anlog [Lantus Solostar PEN (NF)] 10 units SQ HS Spironolactone [Aldactone] 25 mg PO DAILY 08/13/19 Metoprolol Succinate [Toprol Xl -] 25 mg PO DAILY 10/10/19 Anemia: Yes Asthma: Yes Cancer: No Cardiac Disorders: Yes (LA X 2, pacemaker) CVA: No COPD: Yes (sleep apnea) CHF: Yes (S/P ICD) DVT: No Dementia: No Diabetes: Yes GI Disorders: Yes (PEPTIC ULCER) Disorders: No HTN: Yes Hypercholesterolemia: Yes Liver Disease: No Psychiatric Problems: Yes (DEPRESSION) Seizures: No Thyroid Disease: Yes - Surgical History Abdominal Surgery: No Appendectomy: No Cardiac Surgery: Yes (pacemaker and stents) Cholecystectomy: Yes Lung Surgery: No Neurologic Surgery: No Orthopedic Surgery: Yes (bilateral knee replacement) - Immunization History Immunization Up to Date: No - Psycho Social/Smoking Cessation Hx Smoking Status: No Smoking History: Former smoker Have you smoked in the past 12 months: No Number of Cigarettes Smoked Daily: 0 Information on smoking cessation initiated: No Hx Alcohol Use: No Drug/Substance Use Hx: No Substance Use Type: None Hx Substance Use Treatment: No *Physical Exam - Vital Signs Last Vital Signs Temp Pulse Resp BP Pulse Ox 98.0 F 112 H 18 141/88 96 10/10/19 12:28 10/10/19 12:28 10/10/19 12:28 10/10/19 12:28 10/10/19 12:28 - Physical Exam Comments: 10/10/19 12:45 Gen: well-developed, well-nourished, obese, appears distressed Neuro: AAOX4, CN II-XII intact, FTN intact, EOMI, PERRLA, 5/5 strength, SILT HEENT: atraumatic, normocephalic, dry mucous membranes Neck: trachea midline, supple CV: tachycardic, regular rhythm, no murmurs, rubs, or gallops Pulm: diffuse expiratory wheezing, worst in L base Abd: soft, non-distended, non-tender, umbilical hernia with what appears to be keloid extending to the right MSK: full ROM, intact pulses Extr: no edema, no deformities Skin: warm, dry ED Treatment Course - LABORATORY CBC & Chemistry Diagram: 10/10/19 12:55 10/10/19 12:55 Medical Decision Making - Medical Decision Making 10/10/19 13:07 Patient with cardiac risk factors, presenting with SOB and CP. - CBC, CMP, VBG - EKG, CXR, cardiac profile - Duoneb - reassess EKG normal sinus at 115 bpm, widened QRS, LBBB, appears unchanged from prior EKG in October 2019. 10/10/19 13:59 Trop 0.19. CXR without acute pathology, ventricular pacemaker in place. 10/10/19 14:[address] Cartwright, recommends holding off on heparin for now, trending the troponin. Patient will be admitted for CHF exacerbation and troponin leak. Discharge - Discharge Information Problems reviewed: Yes Clinical Impression/Diagnosis: COPD exacerbation - Follow up/Referral - Patient Discharge Instructions - Post Discharge Activity
[2019-10-10 13:12] LABS: VENOUS PC02 34.3 mmHg (38-52); VENOUS PH 7.44 (7.31-7.41)
[2019-10-10 13:26] LABS: BASO % 0.8 % (0-2.0); EOS % 0.9 % (0-4.5); HEMATOCRIT 35.2 % (32.4-45.2); HEMOGLOBIN 11.2 GM/dL (10.7-15.3); LYMPH % 26.8 % (8-40); MCH 27.4 pg (25.7-33.7); MCHC 31.7 g/dl (32.0-36.0); MEAN CELL VOLUME 86.6 fl (80-96); MEAN PLT VOLUME 10.1 fl (7.5-11.1); MONO % 4.5 % (3.8-10.2); PLATELET COUNT 272 K/MM3 (134-434); RBC 4.06 M/mm3 (3.60-5.2); RDW 16.3 % (11.6-15.6); WHITE BLOOD COUNT 7.5 K/mm3 (4.0-10.0)
[2019-10-10] MEDS ORDERED: CEFTRIAXONE 1,000 MG in DEXTROSE 5%-WATER - 50 ML IVPB ONE (13:29)
[2019-10-10] MEDS ORDERED: AZITHROMYCIN 250 MG TABLET PO ONE (13:31)
[2019-10-10 13:49] LABS: ALBUMIN 3.6 g/dl (3.4-5.0); BILIRUBIN,TOTAL 0.4 mg/dL (0.2-1); CALCIUM 8.9 mg/dL (8.5-10.1); CREATININE 1.2 mg/dL (0.55-1.3); POTASSIUM 3.2 mmol/L (3.5-5.1); TOT PROT 7.2 g/dl (6.4-8.2)
[2019-10-10] MEDS ORDERED: AZITHROMYCIN 500 MG TABLET ONE (13:54)
[2019-10-10] MEDS ORDERED: CEFEPIME 1 GM/100 ML BAG IVPB ONE (13:55)
[2019-10-10] MEDS ORDERED: POTASSIUM CHLORIDE TABS 20 MEQ TABLET.ER (FP) PO ONE ×2 (14:00→14:19)
--- NOTE | 2019-10-10 14:45 | PDOC ---
Documentation entered by Milena Chaney SCRIBE, acting as scribe for Kely Talavera MD. Kely Talavera MD: This documentation has been prepared by the Ritu siegel Nirvannie, SCRIBE, under my direction and personally reviewed by me in its entirety. I confirm that the documentation accurately reflects all work, treatment, procedures, and medical decision making performed by me. Attending Attestation - Resident Resident Name: Ashely Harvey - ED Attending Attestation I have performed the following: I have examined & evaluated the patient, The case was reviewed & discussed with the resident, I agree w/resident's findings & plan - HPI HPI: 10/10/19 13:20 The patient is a 59 year old female, with a significant past medical history of DM, HTN, COPD, CHF, hypothyroidism hashimotos, CKD, Afib, CAD (s/p NSTEMI and cardiac stenting x2), nonischemic cardiomyopathy (s/p permanent pacemaker), OA, who presents to the emergency department with shortness of breath and chest pain. Patient notes her symptoms initially onset as shortness of breath and then her chest pain onset as a substernal radiating down the left arm and to the back. She notes using her albuterol at home, without relief prompting her arrival to the ED. She denies recent fevers, chills, headache or dizziness. Allergies: chlorpheniramine, cimetidine, codeine, ibuprofen, latex Past surgical history: hysterectomy, cholecystectomy, b/l knee surgery, 2 toes amputated. Primary Care Physician: Dr. Reece Lanza - Physicial Exam PE: 10/10/19 14:26 Agree with residents exam. Patient is alert and oriented x 3, in mild respiratory distress. + mild wheezing on lung exam, speaking in complete sentences. CV: rrr no m/r/g tachycardic. 10/10/19 14:27 - Medical Decision Making 10/10/19 14:38 Pt presents to the ED complaining of shortness of breath and chest pain. EKG and CXR are unchanged. Differential includes CHF exacerbation, ACS, less likely PNA. Labs show elevated troponin. ASA given by EMS. Case discussed with Dr. Schroeder. Will hold off on heparin for now. Will admit for serial troponins.
[2019-10-10] MEDS ORDERED: ACETAMINOPHEN 1000 MG/100 ML VIAL (NON FORMULARY) IVPB ONE (16:43)
[2019-10-10] MEDS ORDERED: ACETAMINOPHEN INJECTION 100 ML IVPB ONE (16:47)
[2019-10-10 22:40] VITALS: BMI 41.5
[2019-10-11] MEDS: GABAPENTIN 300 MG CAPSULE (FP) PO SCH ×3 (06:24→22:37)
[2019-10-11] MEDS: LEVOTHYROXINE NA 75 MCG TABLET (FP) PO SCH (06:24)
[2019-10-11] MEDS: INSULIN SLIDING SCALE (NOVOLOG) 1 VIAL SQ SCH ×4 (06:31→22:37)
[2019-10-11 06:59] LABS: BASO % 0.4 % (0-2.0); HEMATOCRIT 30.5 % (32.4-45.2); HEMOGLOBIN 9.8 GM/dL (10.7-15.3); LYMPH % 12.8 % (8-40); MCH 27.5 pg (25.7-33.7); MEAN PLT VOLUME 10.2 fl (7.5-11.1); MONO % 6.4 % (3.8-10.2); NEUT % 80.4 % (42.8-82.8); PLATELET COUNT 261 K/MM3 (134-434); RBC 3.55 M/mm3 (3.60-5.2); RDW 15.7 % (11.6-15.6); WHITE BLOOD COUNT 8.1 K/mm3 (4.0-10.0)
[2019-10-11 07:07] LABS: ALBUMIN 3.4 g/dl (3.4-5.0); BILIRUBIN,TOTAL 0.4 mg/dL (0.2-1); BLOOD UREA NITROGEN 11.2 mg/dL (7-18); CALCIUM 9.2 mg/dL (8.5-10.1); CREATININE 1.2 mg/dL (0.55-1.3); POTASSIUM 4.1 mmol/L (3.5-5.1); TOT PROT 6.5 g/dl (6.4-8.2)
[2019-10-11] MEDS ORDERED: cefTRIAXone SODIUM 1 GM VIAL ONE (10:00)
[2019-10-11] MEDS ORDERED: HEPARIN NA (PORCINE) 5,000 UNITS/ML 1ML VIAL SQ SCH (10:00)
[2019-10-11] MEDS ORDERED: DEXTROSE 5%-WATER - 50 ML IVPB ONE (10:01)
[2019-10-11] MEDS: INSULIN (LEVEMIR) 100 UNITS/ML UNITS SQ SCH ×2 (10:08→22:37)
[2019-10-11] MEDS: CARVEDILOL 3.125 MG TABLET (FP) PO SCH ×2 (10:09→22:37)
[2019-10-11] MEDS: SPIRONOLACTONE 25 MG TABLET (FP) PO SCH (10:09)
[2019-10-11] MEDS: CEFTRIAXONE 1 GM in DEXTROSE 5%-WATER - 50 ML IVPB SCH (10:09)
--- NOTE | 2019-10-11 10:12 | EKG ---
Test Reason : Blood Pressure : / mmHG Vent. Rate : 115 BPM Atrial Rate : 115 BPM P-R Int : 140 ms QRS Dur : 126 ms QT Int : 358 ms P-R-T Axes : 057 -20 095 degrees QTc Int : 495 ms SINUS TACHYCARDIA WITH OCCASIONAL PREMATURE VENTRICULAR COMPLEXES LEFT BUNDLE BRANCH BLOCK ABNORMAL ECG WHEN COMPARED WITH ECG OF 13-AUG-2019 11:45, PREMATURE VENTRICULAR COMPLEXES ARE NOW PRESENT LIKELY NO SIGNIFICANT CHANGES Confirmed by MARILOU MILLER, ANMOL ([id number]) on 10/11/2019 10:12:34 AM Referred By: Confirmed By:ANMOL ZAMARRIPA MD
--- NOTE | 2019-10-11 10:34 | CON.CARD ---
Consult Consult Specialty:: cardio - History of Present Illness Chief Complaint: sob and cp History of Present Illness: 59 F here with who presents to the emergency department with shortness of breath and chest pain. laying in bed last night she began to feel rattling in throat and sob. sat up in bed, used albuterol--no relief. shortly thereafter noted wheezing and severe pain in chest and throat, to L arm. HAS HAD THIS PAIN BEFORE WHEN DECOMP CHF (AND ? ASTHMA--SHE'S NOT SURE OF THIS POINT) but was never as severe as this. lasted about 60 min in all she thinks. took her home lasix yest am (40mg qod). no lasix given here--sob much better since arrived here. denies sodium indiscretion. denies feet swelling at home of late. used to see dr whitaker but has switched to dr clifford ([facility] office) b /c prefers that office. was referred to dr yung toure, chf at [facility] who she saw and he has scheduled her for RHC on 10/13. here few mo ago with hypovolemia and MU sec to overdiuresis. hypotensive then. remained orthostatic in office 07/19. PMH: DM, HTN, COPD, syst CHF, hypothyroidism hashimotos, CKD, Afib, nonischemic cardiomyopathy (s/p permanent pacemaker), OA per review of dr whitaker's office note pt has NO history of CAD/NH/stents - Past Medical History Cardio/Vascular: Yes: CHF, HTN, Hyperlipdemia Pulmonary: Yes: Asthma, Sleep Apnea ...: No Endocrine: Yes: Diabetes Mellitus, Hypothyroidism - Past Surgical History Past Surgical History: Yes: Cholecystectomy, Joint Replacement (left tkr), Permanent Pacemaker (ICD) - Alcohol/Substance Use Hx Alcohol Use: No - Smoking History Smoking history: Former smoker Have you smoked in the past 12 months: No Aproximately how many cigarettes per day: 0 - Social History Usual Living Arrangement: With Spouse ADL: Independent History of Recent Travel: No Home Medications - Allergies Allergies/Adverse Reactions: Allergies Allergy/AdvReac Type Severity Reaction Status Date / Time tomato Allergy Mild Hives Verified 10/10/19 12:37 chlorpheniramine Allergy Verified 10/10/19 12:37 cimetidine Allergy Verified 10/10/19 12:37 codeine [Codeine] Allergy Verified 10/10/19 12:37 ibuprofen Allergy Verified 10/10/19 12:37 latex [Latex] Allergy Verified 10/10/19 12:37 Latex, Natural Rubber Allergy Verified 10/10/19 12:37 pseudoephedrine Allergy Verified 10/10/19 12:37 salmeterol xinafoate Allergy Verified 10/10/19 12:37 [From Advair Diskus] shellfish derived Allergy Verified 10/10/19 12:37 Sulfa (Sulfonamide Allergy Verified 10/10/19 12:37 Antibiotics) [Sulfa(Sulfonamide Antibiotics)] Chocolate Allergy Mild Hives Uncoded 10/10/19 12:37 shrimp Allergy Mild Hives Uncoded 10/10/19 12:37 - Home Medications Home Medications: Ambulatory Orders Atorvastatin Ca [Lipitor] 40 mg PO HS 08/09/16 Insulin Glargine,Hum.rec.anlog [Lantus Solostar PEN -] 20 units SQ AM 08/09/16 Budesonide/Formeterol Fumarate [SYMBICORT 160/4.5mcg -] 2 puff PO BID 10/14/16 Linagliptin/Metformin HCl [Jentadueto 2.5 mg-1000 mg Tab] 1 tab PO BID 10/14/16 Albuterol 2.5/Ipratropium 0.5 [Duoneb -] 1 amp NEB Q6H PRN #90 amp 05/21/19 Levothyroxine [Synthroid -] 75 mcg PO DAILY #30 tablet 05/21/19 Carvedilol [Coreg -] 3.125 mg PO BID 08/13/19 Dexlansoprazole [Dexilant] 60 mg PO DAILY 08/13/19 Gabapentin [Neurontin -] 300 mg PO TID 08/13/19 Insulin Glargine,Hum.rec.anlog [Lantus Solostar PEN (NF)] 10 units SQ HS Spironolactone [Aldactone] 25 mg PO DAILY 08/13/19 Metoprolol Succinate [Toprol Xl -] 25 mg PO DAILY 10/10/19 Family Medical History Family History: Denies (no known cmp) Review of Systems - Review of Systems Constitutional: denies: Chills, Fever Eyes: denies: Eye Pain HENT: denies: Nasal Congestion Neck: denies: Stiffness Cardiovascular: denies: Palpitations Respiratory: reports: Orthopnea. denies: PND Gastrointestinal: denies: Diarrhea, Rectal Bleeding Genitourinary: denies: Burning, Hematuria Musculoskeletal: denies: Muscle Pain Integumentary: denies: Rash Neurological: denies: Numbness, Seizure, Syncope Endocrine: denies: Excessive Sweating Hematology/Lymphatic: denies: Excessive Bleeding Vital Signs: Vital Signs Temperature 98.5 F 10/11/19 02:00 Pulse Rate 91 H 10/11/19 02:00 Respiratory Rate 20 10/11/19 02:00 Blood Pressure 105/61 10/11/19 02:00 O2 Sat by Pulse Oximetry (%) 95 10/10/19 21:55 Constitutional: Yes: Well Nourished, No Distress, Obese Eyes: No: Sclera Icterus HENT: No: Nasal Congestion Neck: No: Decreased ROM Respiratory: Yes: CTA Bilaterally. No: Accessory Muscle Use, Rales, Wheezes Gastrointestinal: Yes: Normal Bowel Sounds. No: Distention, Hepatomegaly, Palpable Mass, Tenderness Cardiovascular: Yes: Regular Rate and Rhythm JVD: No Carotid Bruit: No PMI: Non-Displaced Heart Sounds: Yes: S1, S2. No: Gallop Murmur: No: Systolic Murmur, Diastolic Murmur Musculoskeletal: Yes: Other (No kyphosis) Extremities: No: Cool, Cyanosis Edema: No Peripheral Pulses: 2+ Left Carotid, 2+ Right Carotid, 2+ Left Doralis Pedis, 2+ Right Dorsalis Pedis Integumentary: No: Jaundice Neurological: Yes: Alert, Oriented (x3) Psychiatric: No: Agitated - Other Data Labs, Other Data: CBC, BMP 10/11/19 05:30 10/11/19 05:30 Troponin, BNP 10/10/19 10/11/19 12:55 05:30 Troponin I 0.19 H 0.18 H Troponin, BNP 10/10/19 10/11/19 12:55 05:30 Troponin I 0.19 H 0.18 H Assessment/Plan Cardiac Catheterization (non-obstructive CAD) echo 05/2019 tds, mildly dilated LV, severe global hypok, RV nl CXR: no congestion or effusion seen EKG: sinus tach, LBBB, no signif change vs prior 08/13/19 (slightly more widening of qrs) sob, CP, acute syst CHF: -trop 0.1 x 2 = not c/w ACS (indeterminate range, flat trend). ecg -outpt records (last stress, prior cath) not currently available--will attempt to procure -suspect sx's due to elevated filling pressures with mild acute chf, given quality of the chest pain is similar to prior HF episodes per pt (but more severe this time). - cont home carvedilol, spirono. ? lisin 2.5 qd held since--not on med list. ( entresto d/c'd s/p recent admit for overdiuresis with MU and low bp). - office wt on 05/19 discharge 260 (rising). wt 265 lbs here. BNP 3600 (from 100- 300 in 05/19). bp normal, renal fxn stable--dose lasix 40 iv qd x 1 today, observe response - severely reduced EF on recent echo - Routine office interrogation of ICD as outpatient ([employer]) with dr clifford after hosp discharge - will observe x 24 hrs--if no signs of acute airways bronchospastic process, and sx's stable, will d/w dr toure ? inpt transfer for L and R heart cath copd/asthma: - doubt a.e.--suspect residual mild air flow tightness sensation in chest is HF sx--observe with diuresis HTN: - bp controlled paroxysmal afib - in sinus here--cont home bb - cont home eliquis for AC (5 bid) HLD - cont statin
[2019-10-11 11:02] LABS: N-TERMINAL BNP 3627.2 pg/ml (5-125)
--- NOTE | 2019-10-11 11:18 | PN ---
Progress Note (short form) - Note Progress Note: PULMONARY CONSULTATION DICTATED 10/11/19
--- NOTE | 2019-10-11 11:33 | PN ---
Progress Note (short form) - Note Progress Note: PULMONARY CONSULTATION DICTATED 10/11/19 IMP DYSPNEA ACUTE IN CHRONIC CHF S/P ICD,PPM ASHD S/P SC S/P STENTS CHEST PAIN ASTHMA CHRONIC PERSISTENT DM HTN VAHID ON CPAP MORBID OBESITY + TROPONIN PLAN DIURETICS O2 INHALED BRONCHODILATORS MEDROL X 24HRS ECHO TREND TROPONIN F/U CHEST X-RAYS MONITOR LYTES,RENAL FUNCTION DAILY WTS DR GANN Problem List - Problems (1) Chronic systolic CHF (congestive heart failure), NYHA class 3 Code(s): I50.22 - CHRONIC SYSTOLIC (CONGESTIVE) HEART FAILURE (2) Diabetes Code(s): E11.9 - TYPE 2 DIABETES MELLITUS WITHOUT COMPLICATIONS Qualifiers: Diabetes mellitus type: type 2 (3) Hyperlipidemia Code(s): E78.5 - HYPERLIPIDEMIA, UNSPECIFIED (4) Hypertension Code(s): I10 - ESSENTIAL (PRIMARY) HYPERTENSION Qualifiers: Hypertension type: essential hypertension Qualified Code(s): I10 - Essential (primary) hypertension (5) ICD (implantable cardioverter-defibrillator) in place Code(s): Z95.810 - PRESENCE OF AUTOMATIC (IMPLANTABLE) CARDIAC DEFIBRILLATOR (6) Morbid obesity Code(s): E66.01 - MORBID (SEVERE) OBESITY DUE TO EXCESS CALORIES (7) Troponin level elevated Code(s): R79.89 - OTHER SPECIFIED ABNORMAL FINDINGS OF BLOOD CHEMISTRY (8) Sleep apnea Code(s): G47.30 - SLEEP APNEA, UNSPECIFIED
[2019-10-11] MEDS: methylPREDNISolone NA SUCC 40 MG/1 ML VIAL IVPUSH SCH ×2 (11:43→18:25)
--- NOTE | 2019-10-11 11:46 | HP ---
Admitting History and Physical - Past Medical History Cardiovascular: Yes: CHF, HTN, Hyperlipdemia Pulmonary: Yes: Asthma, Sleep Apnea ...: No Endocrine: Yes: Diabetes Mellitus, Hypothyroidism - Past Surgical History Past Surgical History: Yes: Cholecystectomy, Joint Replacement (left tkr), Permanent Pacemaker (ICD) - Smoking History Smoking history: Former smoker Have you smoked in the past 12 months: No Aproximately how many cigarettes per day: 0 - Alcohol/Substance Use Hx Alcohol Use: No - Social History ADL: Independent History of Recent Travel: No Home Medications - Allergies Allergies/Adverse Reactions: Allergies Allergy/AdvReac Type Severity Reaction Status Date / Time tomato Allergy Mild Hives Verified 10/10/19 12:37 chlorpheniramine Allergy Verified 10/10/19 12:37 cimetidine Allergy Verified 10/10/19 12:37 codeine [Codeine] Allergy Verified 10/10/19 12:37 ibuprofen Allergy Verified 10/10/19 12:37 latex [Latex] Allergy Verified 10/10/19 12:37 Latex, Natural Rubber Allergy Verified 10/10/19 12:37 pseudoephedrine Allergy Verified 10/10/19 12:37 salmeterol xinafoate Allergy Verified 10/10/19 12:37 [From Advair Diskus] shellfish derived Allergy Verified 10/10/19 12:37 Sulfa (Sulfonamide Allergy Verified 10/10/19 12:37 Antibiotics) [Sulfa(Sulfonamide Antibiotics)] Chocolate Allergy Mild Hives Uncoded 10/10/19 12:37 shrimp Allergy Mild Hives Uncoded 10/10/19 12:37 - Home Medications Home Medications: Ambulatory Orders Atorvastatin Ca [Lipitor] 40 mg PO HS 08/09/16 Insulin Glargine,Hum.rec.anlog [Lantus Solostar PEN -] 20 units SQ AM 08/09/16 Budesonide/Formeterol Fumarate [SYMBICORT 160/4.5mcg -] 2 puff PO BID 10/14/16 Linagliptin/Metformin HCl [Jentadueto 2.5 mg-1000 mg Tab] 1 tab PO BID 10/14/16 Albuterol 2.5/Ipratropium 0.5 [Duoneb -] 1 amp NEB Q6H PRN #90 amp 05/21/19 Levothyroxine [Synthroid -] 75 mcg PO DAILY #30 tablet 05/21/19 Carvedilol [Coreg -] 3.125 mg PO BID 08/13/19 Dexlansoprazole [Dexilant] 60 mg PO DAILY 08/13/19 Gabapentin [Neurontin -] 300 mg PO TID 08/13/19 Insulin Glargine,Hum.rec.anlog [Lantus Solostar PEN (NF)] 10 units SQ HS Spironolactone [Aldactone] 25 mg PO DAILY 08/13/19 Metoprolol Succinate [Toprol Xl -] 25 mg PO DAILY 10/10/19 Diclofenac Sodium [Diclo Gel] 1 tube 10/11/19 Physical Examination Vital Signs: Vital Signs Temperature 98.5 F 10/11/19 02:00 Pulse Rate 91 H 10/11/19 02:00 Respiratory Rate 20 10/11/19 02:00 Blood Pressure 105/61 10/11/19 02:00 O2 Sat by Pulse Oximetry (%) 95 10/10/19 21:55 Labs: CBC, BMP 10/11/19 05:30 10/11/19 05:30 Problem List - Problems (1) Chest pain Code(s): R07.9 - CHEST PAIN, UNSPECIFIED (2) COPD (chronic obstructive pulmonary disease) Code(s): J44.9 - CHRONIC OBSTRUCTIVE PULMONARY DISEASE, UNSPECIFIED Qualifiers: COPD type: chronic bronchitis Chronic bronchitis type: unspecified Qualified Code(s): J42 - Unspecified chronic bronchitis (3) Chronic systolic CHF (congestive heart failure), NYHA class 3 Code(s): I50.22 - CHRONIC SYSTOLIC (CONGESTIVE) HEART FAILURE (4) Diabetes Code(s): E11.9 - TYPE 2 DIABETES MELLITUS WITHOUT COMPLICATIONS Qualifiers: Diabetes mellitus type: type 2 (5) Hyperlipidemia Code(s): E78.5 - HYPERLIPIDEMIA, UNSPECIFIED (6) Hypertension Code(s): I10 - ESSENTIAL (PRIMARY) HYPERTENSION Qualifiers: Hypertension type: essential hypertension Qualified Code(s): I10 - Essential (primary) hypertension (7) Hypothyroidism Code(s): E03.9 - HYPOTHYROIDISM, UNSPECIFIED (8) Paroxysmal A-fib Code(s): I48.0 - PAROXYSMAL ATRIAL FIBRILLATION (9) Troponin level elevated Code(s): R79.89 - OTHER SPECIFIED ABNORMAL FINDINGS OF BLOOD CHEMISTRY
[2019-10-11] MEDS ORDERED: FUROSEMIDE 40 MG/4 ML INJECTABLE VIAL IVPUSH ONE (12:03)
[2019-10-11] MEDS: BUDESONIDE/FORMETEROL FUMARATE 160/4.5 mcg INHALER IH SCH ×2 (12:32→22:45)
[2019-10-11] MEDS: AZITHROMYCIN IVPB 250 MG in DEXTROSE 5%-WATER - 250 ML IVPB SCH (12:33)
[2019-10-11] MEDS: APIXABAN 5 MG TABLET PO SCH ×2 (12:34→22:37)
--- NOTE | 2019-10-11 12:35 | ECHO ---
Name: SELINA BROWER Exam:Adult Echocardiogram Study Date: 10/11/2019 09:58 AM Age: 59 yrs Reason For Study: dyspnea Height: 66 in Weight: 257 lb BSA: 2.2 m2 MMode/2D Measurements & Calculations RVDd: 3.1 cm Ao root diam: 3.6 cm IVSd: 0.78 cm LA dimension: 5.1 cm LVIDd: 6.9 cm ACS: 2.0 cm LVIDs: 6.1 cm LVPWd: 0.84 cm IVSs: 0.67 cm LVPWs: 1.0 cm EDV(Teich): 243.8 ml ESV(Teich): 189.7 ml EPSS: 2.3 cm Doppler Measurements & Calculations MV E max vaughn: 87.1 cm/sec Ao V2 max: 86.0 cm/sec MV A max vaughn: 52.6 cm/sec Ao max P.0 mmHg MV E/A: 1.7 Ao V2 mean: 69.0 cm/sec MV dec time: 0.11 sec Ao mean P.0 mmHg Ao V2 VTI: 14.1 cm MR max vaughn: 441.5 cm/sec TR max vaughn: 275.8 cm/sec MR max P.1 mmHg TR max P.5 mmHg Med Peak E' Vaughn: 2.9 cm/sec Med E/e': 30.6 Lat Peak E' Vaughn: 10.6 cm/sec Lat E/e': 8.2 Procedure A complete two-dimensional transthoracic echocardiogram was performed (2D, M-mode, Doppler and color flow Doppler). Technically limited study. Left Ventricle The left ventricle is severely dilated. Left ventricular systolic function is severely reduced. Eject ion Fraction = 20-25%. There is severe global hypokinesis of the left ventricle. Right Ventricle Linear echodensity is seen in right cardiac chamber compatible with ICD/PPM lead. The right ventricle is not well visualized. Atria The left atrium is moderately dilated. Right atrium not well visualized. Mitral Valve There is mild mitral annular calcification. There is moderate mitral regurgitation. Tricuspid Valve The tricuspid valve is normal in structure and function. There is mild tricuspid regurgitation. Pulmo nary artery systolic pressure is at least 38 mmHg if RA pressure is assumed 3 mmHg. Aortic Valve There is mild aortic sclerosis.;. No aortic regurgitation is present. Pulmonic Valve The pulmonic valve is not well visualized. Great Vessels The aortic root is normal size. Pericardium/Pleura There is no pericardial effusion. Interpretation Summary Technically limited study The left ventricle is severely dilated. Left ventricular systolic function is severely reduced. There is severe global hypokinesis of the left ventricle. Ejection Fraction = 20-25%. The right ventricle is not well visualized. Linear echodensity is seen in right cardiac chamber compatible with ICD/PPM lead The left atrium is moderately dilated. There is mild mitral annular calcification. There is moderate mitral regurgitation. There is mild tricuspid regurgitation. Pulmonary artery systolic pressure is at least 38 mmHg if RA pressure is assumed 3 mmHg There is mild aortic sclerosis.; There is no pericardial effusion. Chase Pimentel MD 10/11/2019 12:35 PM
--- NOTE | 2019-10-11 16:01 | CONS ---
DATE OF CONSULTATION: 10/11/2019 REFERRING PHYSICIAN: Mela Lewis MD The patient is a 59-year-old black female with extensive past medical history, which includes chronic persistent asthma, maintained on inhaled bronchodilators, congestive heart failure, with severe left ventricular global hypokinesis, hypothyroidism, chronic kidney disease, status post AICD, hypothyroidism, hypertension, diabetes, nonsmoker, admitted to [facility] with complaint of acute onset of shortness of breath. Patient states that she was doing well until Friday. At that time, she developed some chills and also complained of some stuffy nose. She denied any chest pain or shortness of breath at the time. Yesterday she started developing chest pain associated with radiation to the jaw as well as to the back. She also complained of shortness of breath and chest congestion. She took 4 inhalation treatments without any improvement. She also placed herself on CPAP, which increased the symptoms, at which time she called 911 and patient presented to the emergency room. In the ER, she was started on inhaled bronchodilators and transferred to medical floor for further management. Patient denies any hemoptysis, does complain of some chest pain. She states that her chest discomfort is different than her usual asthma symptoms. As stated before, she has a long-standing history of asthma, was intubated when she was 19 years old. She is a nonsmoker. There is no history of occupational exposure to chemicals or fumes. Past medical history, again, includes diabetes, congestive heart failure, asthma, hypertension, hypothyroidism, Ramona's, chronic kidney disease, paroxysmal atrial fibrillation, ASHD, status post non-ST PR, cardiac stenting x2, non-ischemic cardiomyopathy status post ICD and permanent pacemaker, osteoarthritis. REVIEW OF SYSTEMS: Positive shortness of breath, positive chest discomfort. No fever. Positive chills. No hemoptysis, no abdominal pain. No nausea, no vomiting. No lower extremity edema. Current medications include Symbicort, Solu-Medrol, Neurontin, Coreg, Lipitor, Levemir, Aldactone, and Synthroid. PHYSICAL EXAMINATION: General: The patient is an obese female, awake, alert, in no acute distress. Vital Signs: She is afebrile. Blood pressure is 105/61. Respiratory rate 20. O2 saturation is 95% on room air. HEENT: Normocephalic, atraumatic. Neck: Supple. Heart: Regular, S1, S2. Chest: A few scattered bilateral wheezes. Abdomen: Soft. Bowel sounds positive. Extremities: No cyanosis, edema. LABORATORY DATA: BUN 6, creatinine 1.2. WBC 8.1, hemoglobin 9.8, hematocrit 38.5, with a platelet count of 261,000. BNP is 3627. Troponin 0.18. Chest x-ray reveals no acute infiltrates or effusions. IMPRESSION: 1. Dyspnea, most likely secondary to acute on chronic congestive heart failure. 2. Chest pain. Rule out acute coronary syndrome. 3. Chronic persistent asthma. 4. Diabetes. 5. Hypertension. 6. Obstructive sleep apnea, on CPAP. 7. Morbid obesity. 8. Positive troponin. 9. Arteriosclerotic heart disease, status post non-ST myocardial infarction. PLAN: Continue diuretics, O2, inhaled bronchodilators, Medrol x24 hours. Obtain echo. Trend troponins. Monitor and follow chest x-rays. Monitor electrolytes, renal function. Daily weights. HARRIET GANN M.D. [id number]
[2019-10-11] MEDS ORDERED: ATORVASTATIN CA 40 MG TABLET (FP) PO SCH (22:00)
[2019-10-12] MEDS: methylPREDNISolone NA SUCC 40 MG/1 ML VIAL IVPUSH SCH ×2 (02:02→10:10)
[2019-10-12] MEDS: INSULIN SLIDING SCALE (NOVOLOG) 1 VIAL SQ SCH ×3 (06:50→16:59)
[2019-10-12] MEDS: LEVOTHYROXINE NA 75 MCG TABLET (FP) PO SCH (06:51)
[2019-10-12] MEDS: GABAPENTIN 300 MG CAPSULE (FP) PO SCH ×2 (06:51→13:59)
[2019-10-12 07:12] LABS: BLOOD UREA NITROGEN 20.2 mg/dL (7-18); CALCIUM 9.5 mg/dL (8.5-10.1); CREATININE 1.3 mg/dL (0.55-1.3); POTASSIUM 4.4 mmol/L (3.5-5.1)
[2019-10-12] MEDS ORDERED: cefTRIAXone SODIUM 1 GM VIAL ONE (08:56)
[2019-10-12] MEDS ORDERED: DEXTROSE 5%-WATER - 50 ML IVPB ONE (08:56)
[2019-10-12] MEDS: SPIRONOLACTONE 25 MG TABLET (FP) PO SCH (09:13)
[2019-10-12] MEDS: APIXABAN 5 MG TABLET PO SCH (09:13)
[2019-10-12] MEDS: INSULIN (LEVEMIR) 100 UNITS/ML UNITS SQ SCH (09:13)
[2019-10-12] MEDS: CEFTRIAXONE 1 GM in DEXTROSE 5%-WATER - 50 ML IVPB SCH (09:13)
[2019-10-12] MEDS: CARVEDILOL 3.125 MG TABLET (FP) PO SCH (09:13)
[2019-10-12] MEDS: BUDESONIDE/FORMETEROL FUMARATE 160/4.5 mcg INHALER IH SCH (09:19)
[2019-10-12] MEDS: AZITHROMYCIN IVPB 250 MG in DEXTROSE 5%-WATER - 250 ML IVPB SCH (10:26)
--- NOTE | 2019-10-12 11:33 | PN ---
Progress Note, Physician History of Present Illness: pulmonary alert,still c/o sob,mild chest discomfort - Current Medication List Current Medications: Active Medications Apixaban (Eliquis -) 5 mg PO BID [facility] Last Admin: 10/12/19 09:13 Dose: 5 mg Atorvastatin Calcium (Lipitor -) 40 mg PO HS [facility] Last Admin: 10/11/19 22:37 Dose: 40 mg Budesonide/Formoterol Fumarate (Symbicort 160/4.5mcg -) 2 puff IH BID [facility] Last Admin: 10/12/19 09:19 Dose: 2 puff Carvedilol (Coreg -) 3.125 mg PO BID [facility] Last Admin: 10/12/19 09:13 Dose: 3.125 mg Gabapentin (Neurontin -) 300 mg PO TID [facility] Last Admin: 10/12/19 06:51 Dose: 300 mg Azithromycin 250 mg/ Dextrose 250 mls @ 250 mls/hr IVPB DAILY [facility] Last Admin: 10/12/19 10:26 Dose: 250 mls/hr Ceftriaxone Sodium 1 gm/ (Dextrose) 50 mls @ 100 mls/hr IVPB DAILY [facility]; Protocol Last Admin: 10/12/19 09:13 Dose: 100 mls/hr Insulin Aspart (Novolog Vial Sliding Scale -) 1 vial SQ ACHS [facility]; Protocol Last Admin: 10/12/19 06:50 Dose: 4 units Insulin Detemir (Levemir Vial) 10 units SQ BID [facility] Last Admin: 10/12/19 09:13 Dose: 10 units Levothyroxine Sodium (Synthroid -) 75 mcg PO ACBK [facility] Last Admin: 10/12/19 06:51 Dose: 75 mcg Methylprednisolone Sodium Succinate (Solu-Medrol -) 40 mg IVPUSH Q8H-IV DOM Last Admin: 10/12/19 10:10 Dose: 40 mg Spironolactone (Aldactone -) 25 mg PO DAILY [facility] Last Admin: 10/12/19 09:13 Dose: 25 mg - Objective Vital Signs: Vital Signs Temperature 98.5 F 10/12/19 06:00 Pulse Rate 87 10/12/19 06:00 Respiratory Rate 20 10/12/19 06:00 Blood Pressure 129/80 10/12/19 06:00 O2 Sat by Pulse Oximetry (%) 97 10/11/19 21:00 Constitutional: Yes: Calm, Obese Eyes: Yes: WNL HENT: Yes: WNL Neck: Yes: WNL Cardiovascular: Yes: Regular Rate and Rhythm, S1, S2 Respiratory: Yes: Diminished Gastrointestinal: Yes: Normal Bowel Sounds, Soft Extremities: Yes: WNL Edema: No Labs: CBC, BMP 10/11/19 05:30 Problem List - Problems (1) Chronic systolic CHF (congestive heart failure), NYHA class 3 Code(s): I50.22 - CHRONIC SYSTOLIC (CONGESTIVE) HEART FAILURE (2) Diabetes Code(s): E11.9 - TYPE 2 DIABETES MELLITUS WITHOUT COMPLICATIONS Qualifiers: Diabetes mellitus type: type 2 (3) Hyperlipidemia Code(s): E78.5 - HYPERLIPIDEMIA, UNSPECIFIED (4) Hypertension Code(s): I10 - ESSENTIAL (PRIMARY) HYPERTENSION Qualifiers: Hypertension type: essential hypertension Qualified Code(s): I10 - Essential (primary) hypertension (5) ICD (implantable cardioverter-defibrillator) in place Code(s): Z95.810 - PRESENCE OF AUTOMATIC (IMPLANTABLE) CARDIAC DEFIBRILLATOR (6) Morbid obesity Code(s): E66.01 - MORBID (SEVERE) OBESITY DUE TO EXCESS CALORIES (7) Troponin level elevated Code(s): R79.89 - OTHER SPECIFIED ABNORMAL FINDINGS OF BLOOD CHEMISTRY (8) Sleep apnea Code(s): G47.30 - SLEEP APNEA, UNSPECIFIED Assessment/Plan IMP DYSPNEA ACUTE IN CHRONIC CHF S/P ICD,PPM ASHD S/P NM S/P STENTS CHEST PAIN ASTHMA CHRONIC PERSISTENT DM HTN VAHID ON CPAP MORBID OBESITY + TROPONIN PLAN DIURETICS O2 INHALED BRONCHODILATORS TREND TROPONIN F/U CHEST X-RAYS MONITOR LYTES,RENAL FUNCTION DAILY WTS CARD CATH CAN D/C ABX DR GANN Problem List - Problems (1) Chronic systolic CHF (congestive heart failure), NYHA class 3 Code(s): I50.22 - CHRONIC SYSTOLIC (CONGESTIVE) HEART FAILURE (2) Diabetes Code(s): E11.9 - TYPE 2 DIABETES MELLITUS WITHOUT COMPLICATIONS Qualifiers: Diabetes mellitus type: type 2 (3) Hyperlipidemia Code(s): E78.5 - HYPERLIPIDEMIA, UNSPECIFIED (4) Hypertension Code(s): I10 - ESSENTIAL (PRIMARY) HYPERTENSION Qualifiers: Hypertension type: essential hypertension Qualified Code(s): I10 - Essential (primary) hypertension (5) ICD (implantable cardioverter-defibrillator) in place Code(s): Z95.810 - PRESENCE OF AUTOMATIC (IMPLANTABLE) CARDIAC DEFIBRILLATOR (6) Morbid obesity Code(s): E66.01 - MORBID (SEVERE) OBESITY DUE TO EXCESS CALORIES (7) Troponin level elevated Code(s): R79.89 - OTHER SPECIFIED ABNORMAL FINDINGS OF BLOOD CHEMISTRY (8) Sleep apnea Code(s): G47.30 - SLEEP APNEA, UNSPECIFIED
--- NOTE | 2019-10-12 11:44 | PN ---
Progress Note (short form) - Note Progress Note: s: still short of breath with any effort including moving in bed. chest pain intermittent, center of chest and also pain on R side of chest. no palps, dizziness, edema. Vital Signs Period Temp Pulse Resp BP Sys/Mcgrath Pulse Ox Last 24 Hr 98.1 F-98.6 F 87-94 20-20 119-147/76-88 97 Constitutional: Yes: Well Nourished, No Distress, Obese Eyes: No: Sclera Icterus HENT: No: Nasal Congestion Neck: No: Decreased ROM Respiratory: Yes: CTA Bilaterally. No: Accessory Muscle Use, Rales, Wheezes Gastrointestinal: Yes: Normal Bowel Sounds. No: Distention, Hepatomegaly, Palpable Mass, Tenderness Cardiovascular: Yes: Regular Rate and Rhythm JVD: No Carotid Bruit: No PMI: Non-Displaced Heart Sounds: Yes: S1, S2. No: Gallop Murmur: No: Systolic Murmur, Diastolic Murmur Musculoskeletal: Yes: Other (No kyphosis) Extremities: No: Cool, Cyanosis Edema: No Peripheral Pulses: 2+ Left Carotid, 2+ Right Carotid, 2+ Left Doralis Pedis, 2+ Right Dorsalis Pedis Integumentary: No: Jaundice Neurological: Yes: Alert, Oriented (x3) Psychiatric: No: Agitated Assessment/Plan Cardiac Catheterization (non-obstructive CAD) echo 05/2019 tds, mildly dilated LV, severe global hypok, RV nl CXR: no congestion or effusion seen MPI 08/18 (persantine) = patchy tracer uptake c/w nonischemic CMP, cannot exclude mild inferior ischemia. EF 15% diffuse HK, severe LV dilation EKG: sinus tach, LBBB, no signif change vs prior 08/13/19 (slightly more widening of qrs) echo 10/2019 EF 20-25%, severely reduced LV function, PPM lead in RV, LA mod dilated, od MR, mild TR, PASP at leaest 38 mmHG tele: sinus sob, CP, acute syst CHF: -trop 0.1 x 2 = not c/w ACS (indeterminate range, flat trend). ecg -suspect sx's due to elevated filling pressures with mild acute chf, given quality of the chest pain is similar to prior HF episodes per pt (but more severe this time). - cont home carvedilol, spirono. ? lisin 2.5 qd held since--not on med list. ( entresto d/c'd s/p recent admit for overdiuresis with MU and low bp). - office wt on 05/19 discharge 260 (rising). wt 265 lbs here. BNP 3600 (from 100- 300 in 05/19). bp normal, renal fxn stable--received lasix 40 iv qd x 1 yesterday , wt down 265->256 lbs, however sob stable - will continue IV lasix for now, wt down, Cr stable - severely reduced EF on echo - Routine office interrogation of ICD as outpatient ([place]) with dr clifford after hosp discharge - had planned outpatient RHC with Dr. Hernández at [facility] scheduled for tomorrow - may benefit from inpatient transfer for RHC and possible LHC copd/asthma: - on steroids/nebs per pulm but symptoms may be multifactorial, d/w pulm HTN: - bp controlled paroxysmal afib - in sinus here--cont home bb - cont home eliquis for AC (5 bid) HLD - cont statin
[2019-10-12] MEDS ORDERED: FUROSEMIDE 40 MG/4 ML INJECTABLE VIAL IVPUSH SCH (12:00)
[2019-10-12 17:45] VITALS: BP 121/93; PULSE 92; TEMP 98.4
== END 2019-10-12 17:45 | disposition short-term general hospital (02) | DRG 292 ==
LOC: JER 12:21 → JERBED 13:26 → J4W 21:39
PROVIDERS: ADMIT Internal Medicine; ATTEND Internal Medicine
DX: I11.0 Hypertensive heart disease with heart failure (principal); Z68.41 Body mass index [BMI] 40.0-44.9, adult; R06.00 Dyspnea, unspecified; I50.23 Acute on chronic systolic (congestive) heart failure; I25.10 Atherosclerotic heart disease of native coronary artery without angina pectoris; R07.9 Chest pain, unspecified; E66.01 Morbid (severe) obesity due to excess calories; E11.9 Type 2 diabetes mellitus without complications; I48.0 Paroxysmal atrial fibrillation; J44.9 Chronic obstructive pulmonary disease, unspecified; J45.909 Unspecified asthma, uncomplicated; G47.33 Obstructive sleep apnea (adult) (pediatric); E03.9 Hypothyroidism, unspecified; Z98.61 Coronary angioplasty status; E78.5 Hyperlipidemia, unspecified
CPT/HCPCS: 36415; 71045-TC-FY; 80048; 80053; 82550; 82553; 82803; 82962; 83880; 84484; 85025; 93005; 93010; 93306-TC; 99285-25; J0131; J1644

== ENCOUNTER 2019-11-02 16:42 | Inpatient (IN) | payer BC, OTHER ==
--- NOTE | 2019-11-02 17:17 | PDOC ---
Rapid Medical Evaluation Time Seen by Provider: 11/02/19 17:11 Medical Evaluation: Allergies Allergy/AdvReac Type Severity Reaction Status Date / Time tomato Allergy Mild Hives Verified 10/10/19 12:37 chlorpheniramine Allergy Verified 10/10/19 12:37 cimetidine Allergy Verified 10/10/19 12:37 codeine [Codeine] Allergy Verified 10/10/19 12:37 ibuprofen Allergy Verified 10/10/19 12:37 latex [Latex] Allergy Verified 10/10/19 12:37 Latex, Natural Rubber Allergy Verified 10/10/19 12:37 pseudoephedrine Allergy Verified 10/10/19 12:37 salmeterol xinafoate Allergy Verified 10/10/19 12:37 [From Advair Diskus] shellfish derived Allergy Verified 10/10/19 12:37 Sulfa (Sulfonamide Allergy Verified 10/10/19 12:37 Antibiotics) [Sulfa(Sulfonamide Antibiotics)] Chocolate Allergy Mild Hives Uncoded 10/10/19 12:37 shrimp Allergy Mild Hives Uncoded 10/10/19 12:37 11/02/19 17:11 Pt c/o: nausea dizziness, increased abd cramping increase on eliquis last week, + urinary retention Pt on brief exam: tachy 108, lcta, rotund abd, unable to perform exam ( in wheelchair) Pt ordered for: labs, urine Pt to proceed to the ED Discharge Disposition - Diagnosis Nausea, UTI (urinary tract infection), Chest pain - Discharge Dispostion Condition at time of disposition: Stable - Referrals - Patient Instructions - Post Discharge Activity
[2019-11-02 17:47] LABS: EOS % 0.4 % (0-4.5); HEMATOCRIT 43.3 % (32.4-45.2); HEMOGLOBIN 14.1 GM/dL (10.7-15.3); LYMPH % 19.5 % (8-40); MCH 26.6 pg (25.7-33.7); MCHC 32.4 g/dl (32.0-36.0); MEAN CELL VOLUME 82.1 fl (80-96); MEAN PLT VOLUME 9.9 fl (7.5-11.1); MONO % 6.5 % (3.8-10.2); NEUT % 72.6 % (42.8-82.8); PLATELET COUNT 366 K/MM3 (134-434); RBC 5.28 M/mm3 (3.60-5.2); RDW 15.5 % (11.6-15.6); WHITE BLOOD COUNT 9.4 K/mm3 (4.0-10.0)
[2019-11-02] MEDS ORDERED: SODIUM CHLORIDE 1,000 ML IV STA (18:03)
[2019-11-02] MEDS ORDERED: MAG HYDROX/AL HYDROX/SIMETH 30 ML UNIT-DOSE CUP PO ONE (18:03)
[2019-11-02] MEDS ORDERED: FAMOTIDINE 20 MG/50 ML IVPB 20 MG/50 ML MG IVPB ONE ×2 (18:03→18:36)
[2019-11-02] MEDS ORDERED: ACETAMINOPHEN 1000 MG/100 ML VIAL (NON FORMULARY) IVPB ONE (18:04)
--- NOTE | 2019-11-02 18:08 | PDOC ---
History of Present Illness - General Chief Complaint: Pain Stated Complaint: URINARY RETENTION Time Seen by Provider: 11/02/19 17:11 History Source: Patient Exam Limitations: No Limitations - History of Present Illness Initial Comments: 11/02/19 18:05 Madhuri Cho is a 59yF w PMHx DM, HTN, HLD, ACS s/p [place] pacemaker and stents, CHF, asthma, COPD, morbid obesity presenting with nausea, non productive cough, R abdominal pain. Symptoms started yesterday noon, with associated dizziness, generalized body aches, headache, fevers/chills, reduced appetite. Last urine this morning. Denies vomiting, chest pain, bowel movement changes. Was cathed at [facility] last month for frequent N/STEMI, no stents placed. Past History - Past Medical History Allergies/Adverse Reactions: Allergies Allergy/AdvReac Type Severity Reaction Status Date / Time tomato Allergy Mild Hives Verified 11/02/19 17:11 chlorpheniramine Allergy Verified 11/02/19 17:11 cimetidine Allergy Verified 11/02/19 17:11 codeine [Codeine] Allergy Verified 11/02/19 17:11 ibuprofen Allergy Verified 11/02/19 17:11 latex [Latex] Allergy Verified 11/02/19 17:11 Latex, Natural Rubber Allergy Verified 11/02/19 17:11 pseudoephedrine Allergy Verified 11/02/19 17:11 salmeterol xinafoate Allergy Verified 11/02/19 17:11 [From Advair Diskus] shellfish derived Allergy Verified 11/02/19 17:11 Sulfa (Sulfonamide Allergy Verified 11/02/19 17:11 Antibiotics) [Sulfa(Sulfonamide Antibiotics)] Chocolate Allergy Mild Hives Uncoded 11/02/19 17:11 shrimp Allergy Mild Hives Uncoded 11/02/19 17:11 Home Medications: Ambulatory Orders Atorvastatin Ca [Lipitor] 40 mg PO HS 08/09/16 Insulin Glargine,Hum.rec.anlog [Lantus Solostar PEN -] 20 units SQ AM 08/09/16 Budesonide/Formeterol Fumarate [SYMBICORT 160/4.5mcg -] 2 puff PO BID 10/14/16 Linagliptin/Metformin HCl [Jentadueto 2.5 mg-1000 mg Tab] 1 tab PO BID 10/14/16 Albuterol 2.5/Ipratropium 0.5 [Duoneb -] 1 amp NEB Q6H PRN #90 amp 05/21/19 Levothyroxine [Synthroid -] 75 mcg PO DAILY #30 tablet 05/21/19 Dexlansoprazole [Dexilant] 60 mg PO DAILY 08/13/19 Gabapentin [Neurontin -] 300 mg PO TID 08/13/19 Insulin Glargine,Hum.rec.anlog [Lantus Solostar PEN (NF)] 10 units SQ HS Spironolactone [Aldactone] 25 mg PO DAILY 08/13/19 Metoprolol Succinate [Toprol Xl -] 25 mg PO DAILY 10/10/19 Apixaban [Eliquis -] 5 mg PO BID 11/02/19 Dexlansoprazole [Dexilant] 60 mg PO DAILY 11/02/19 Docusate Sodium [Colace -] 100 mg PO BID 11/02/19 Duloxetine HCl [Cymbalta] 30 mg PO DAILY 11/02/19 Furosemide [Lasix -] 40 mg PO DAILY 11/02/19 Linaclotide [Linzess] 290 mcg PO DAILY 11/02/19 Metoclopramide HCl [Reglan] 5 mg PO BID 11/02/19 Sacubitril/Valsartan [Entresto 24 mg-26 mg Tablet] 1 each PO ASDIR 11/02/19 Anemia: Yes Asthma: Yes Cancer: No Cardiac Disorders: Yes ([place] X 2, pacemaker) CVA: No COPD: Yes CHF: Yes (S/P ICD) DVT: No Dementia: No Diabetes: Yes GI Disorders: Yes (PEPTIC ULCER) Disorders: No HTN: Yes Hypercholesterolemia: Yes Liver Disease: No Psychiatric Problems: Yes (DEPRESSION) Seizures: No Thyroid Disease: Yes - Surgical History Abdominal Surgery: Yes Appendectomy: No Cardiac Surgery: Yes (pacemaker and stents) Cholecystectomy: Yes GI Surgery: Yes (CHOLECYSTECTOMY, HYSTERECTOMY) Lung Surgery: No Neurologic Surgery: No Orthopedic Surgery: Yes (bilateral knee replacement) - Immunization History Immunization Up to Date: No - Psycho Social/Smoking Cessation Hx Smoking Status: No Smoking History: Former smoker Have you smoked in the past 12 months: No Number of Cigarettes Smoked Daily: 0 Information on smoking cessation initiated: No Hx Alcohol Use: No Drug/Substance Use Hx: No Substance Use Type: None Hx Substance Use Treatment: No Review of Systems - Review of Systems Constitutional: Yes: Chills, Fever, Malaise HEENTM: No: Eye Pain, Nose Pain, Throat Pain, Mouth Pain Respiratory: Yes: Cough. No: Shortness of Breath, Wheezing Cardiac (ROS): No: Chest Pain, Palpitations, Syncope ABD/GI: Yes: Nausea, Poor Appetite. No: Abdominal Distended, Constipated, Diarrhea, Vomiting : No: Burning, Dysuria, Discharge Musculoskeletal: No: Back Pain, Muscle Pain Integumentary: No: Bruising, Erythema Neurological: Yes: Headache. No: Seizure, Tingling Psychiatric: No: Anxiety, Depression, Stressors Endocrine: No: Intolerance to Cold, Intolerance to Heat Hematologic/Lymphatic: No: Anemia, Blood Clots *Physical Exam - Vital Signs Last Vital Signs Temp Pulse Resp BP Pulse Ox 97.7 F 105 H 18 103/45 L 96 11/02/19 17:22 11/02/19 17:22 11/02/19 17:22 11/02/19 17:22 11/02/19 17:22 - Physical Exam General Appearance: Yes: Nourished, Appropriately Dressed, Mild Distress HEENT: positive: EOMI, ZAC, Normal Voice, Hearing Grossly Normal. negative: Scleral Icterus (R), Scleral Icterus (L), Nasal Congestion Respiratory/Chest: positive: Lungs Clear, Normal Breath Sounds (distant lung sounds d/t body habitus). negative: Chest Tender, Respiratory Distress, Crackles, Rhonchi, Stridor, Wheezing Cardiovascular: positive: Regular Rhythm, S1, S2 (distant heart sounds d/t body habitus), Tachycardia. negative: Edema, Murmur Gastrointestinal/Abdominal: positive: Tender (moderate RUQ, RLQ), Flat, Soft, Other (cholecystectomy/hysterectomy R AB scarring and hernia). negative: Distended, Guarding, Mass Musculoskeletal: positive: CVA Tenderness (R) Integumentary: positive: Normal Color, Dry. negative: Swelling (no BLE edema), Ecchymosis Neurologic: positive: Fully Oriented, Alert, Normal Response, Responsive. negative: Numbness, Confused, Disoriented ED Treatment Course - LABORATORY CBC & Chemistry Diagram: 11/03/19 08:12 11/03/19 08:12 - ADDITIONAL ORDERS Additional order review: 11/02/19 16:31 RBC 5.28 H MCV 82.1 MCHC 32.4 RDW 15.5 MPV 9.9 Neutrophils % 72.6 Lymphocytes % 19.5 D Monocytes % 6.5 Eosinophils % 0.4 D Basophils % 1.0 Medical Decision Making - Medical Decision Making 11/02/19 18:17 CBC CMP lipase trop UA influenza CXR EKG shows sinus tachycardia, LVH, widened QRS, prolonged QTc 500, HR 102, unchanged 1L NS, pepcid, maalox, tylenol Na 130, Cl 93, Cr 1.6 CBC normal --- Madhuri Cho is a 59yF w PMHx DM, HTN, HLD, ACS s/p [place] pacemaker and stents, CHF, asthma, COPD, morbid obesity presenting with nausea, non productive cough, R abdominal pain. Consider UTI ( R CVA tenderness, reduced urine frequency) vs URI (cough, fevers/ chills, body aches) vs flu. Rule out ACS (extensive cardiac hx), AB adhesions, appendicitis. Unlikely gallstone (cholecystectomy) or (hysterectomy) Has MU (elevated Cr 1.6, reduced urine output). Pending UA, trop, lipase, CXR, influenza swab Anticipate admit d/t complex pmhx Signed out to night team Discharge - Discharge Information Problems reviewed: Yes Clinical Impression/Diagnosis: Nausea UTI (urinary tract infection) Qualifiers: Urinary tract infection type: acute cystitis Hematuria presence: without hematuria Qualified Code(s): N30.00 - Acute cystitis without hematuria Chest pain Qualifiers: Chest pain type: unspecified Qualified Code(s): R07.9 - Chest pain, unspecified Condition: Stable - Follow up/Referral - Patient Discharge Instructions - Post Discharge Activity
[2019-11-02 18:21] LABS: ALBUMIN 4.1 g/dl (3.4-5.0); BILIRUBIN,TOTAL 0.4 mg/dL (0.2-1); BLOOD UREA NITROGEN 27.9 mg/dL (7-18); CALCIUM 10.1 mg/dL (8.5-10.1); CREATININE 1.6 mg/dL (0.55-1.3); TOT PROT 8.4 g/dl (6.4-8.2)
[2019-11-02] MEDS ORDERED: ACETAMINOPHEN INJECTION 100 ML IVPB ONE (18:36)
[2019-11-02] MEDS ORDERED: MAG HYDROX/AL HYDROX/SIMETH 30 ML UNIT-DOSE CUP ONE (18:36)
--- NOTE | 2019-11-02 19:40 | PDOC ---
*Physical Exam - Vital Signs Last Vital Signs Temp Pulse Resp BP Pulse Ox 97.7 F 105 H 18 103/45 L 96 11/02/19 17:22 11/02/19 17:22 11/02/19 17:22 11/02/19 17:22 11/02/19 17:22 - Physical Exam General Appearance: Yes: Nourished, Appropriately Dressed. No: Apparent Distress HEENT: positive: Normal ENT Inspection, Normal Voice Neck: positive: Supple Respiratory/Chest: positive: Lungs Clear, Normal Breath Sounds. negative: Respiratory Distress Cardiovascular: positive: Regular Rhythm, S1, S2, Tachycardia Vascular Pulses: Dorsalis-Pedis (R): 1+, Doralis-Pedis (L): 1+ Gastrointestinal/Abdominal: positive: Soft, Protuberent Rectal Exam: positive: deferred Lymphatic: negative: Adenopathy Musculoskeletal: positive: Normal Inspection. negative: CVA Tenderness Extremity: positive: Normal Capillary Refill, Normal Inspection, Normal Range of Motion Integumentary: positive: Normal Color, Dry, Warm Neurologic: positive: hand counter II-XII NML intact, Fully Oriented, Alert, Normal Mood/ Affect ED Treatment Course - LABORATORY CBC & Chemistry Diagram: 11/02/19 16:31 11/02/19 16:31 - ADDITIONAL ORDERS Additional order review: Laboratory Results 11/02/19 16:31 Sodium 130 L Potassium 4.0 Chloride 93 L Carbon Dioxide 25 Anion Gap 13 BUN 27.9 H Creatinine 1.6 H Est GFR (CKD-EPI)AfAm 40.46 Est GFR (CKD-EPI)NonAf 34.91 Random Glucose 171 H Calcium 10.1 Magnesium 2.0 Total Bilirubin 0.4 AST 19 ALT 12 L Alkaline Phosphatase 93 Creatine Kinase 556 H Creatine Kinase Index 0.2 CK-MB (CK-2) 1.32 Troponin I 0.22 H Total Protein 8.4 H Albumin 4.1 Lipase 115 11/02/19 16:31 RBC 5.28 H MCV 82.1 MCHC 32.4 RDW 15.5 MPV 9.9 Neutrophils % 72.6 Lymphocytes % 19.5 D Monocytes % 6.5 Eosinophils % 0.4 D Basophils % 1.0 - Medications Given in the ED: ED Medications Discontinued Medications Generic Name Dose Route Start Last Admin Trade Name Freq PRN Reason Stop Dose Admin Acetaminophen 1,000 mg 11/02/19 18:04 11/02/19 18:45 Ofirmev Injection - IVPB 11/02/19 18:05 1,000 mg ONCE ONE Administration Al Hydroxide/Mg Hydroxide 30 ml 11/02/19 18:03 11/02/19 18:40 Mylanta Oral Suspension - PO 11/02/19 18:04 30 ml ONCE ONE Administration Famotidine/Sodium Chloride 20 mg in 50 mls @ 100 mls/hr 11/02/19 18:03 19:06 Pepcid 20 Mg Premixed Ivpb - IVPB 11/02/19 18:32 100 mls/hr ONCE ONE Administration Medical Decision Making - Medical Decision Making Paient Signed out to me from Dr. Subramanian pending a CXR, UA, and re-assessment: CMP: elevated Trop, somewhat above patient's baseline - she has an EF of 15. - Will consult Dr. Mooney who is her visitor use assistant - She also has an MU, uncertain of the etiology at this point, possibly a UTI or from her recent start of taking furosemide. CXR: No Acute pathology, large heart, ICD, I do not see any pleural effusions or increased congestive changes Re-assessment: Patient states she came to the hospital bc she had chest pain on exertion, diffuse body aches, severe dizziness and lightheadedness associated with physical activity, and the inability to urinate. She is still not able to urinate here in the ER. Plan: UA, likely admit to tele obs. UA: Suggestive of infection - Starting treatment with ceftriaxone here in ED Disposition: Admit to Telemetry - Call placed to Dr. Lewis at 10 pm Discharge - Discharge Information Problems reviewed: Yes Clinical Impression/Diagnosis: Nausea UTI (urinary tract infection) Qualifiers: Urinary tract infection type: acute cystitis Hematuria presence: without hematuria Qualified Code(s): N30.00 - Acute cystitis without hematuria Chest pain Qualifiers: Chest pain type: unspecified Qualified Code(s): R07.9 - Chest pain, unspecified Condition: Stable - Admission Yes - Follow up/Referral Referrals: Reece Lanza MD [Primary Care Provider] - - Patient Discharge Instructions - Post Discharge Activity
--- NOTE | 2019-11-02 19:57 | PDOC ---
Documentation entered by Blanca Gonzalez SCRIBE, acting as scribe for Letty Richards MD. Letty Richards MD: This documentation has been prepared by the Carlos siegel Xhesika, SCRIBE, under my direction and personally reviewed by me in its entirety. I confirm that the documentation accurately reflects all work, treatment, procedures, and medical decision making performed by me. Attending Attestation - Resident Resident Name: Edouard Subramanian - ED Attending Attestation I have performed the following: I have examined & evaluated the patient, The case was reviewed & discussed with the resident, I agree w/resident's findings & plan, Exceptions are as noted - HPI HPI: 11/02/19 17:58 The patient is a 59 year old female with a significant PMH of DM, HTN, HLD, multiple heart attacks, COPD, CHF, hypothyroidism 2/2 hashimotos, NSTEMI, and CKD who present to the ED with nausea, dizziness, and right sided abdominal pain since this afternoon. Patient reports associated cough, fevers, chills, and decreased PO intake. Pt was able to urinate once this morning. The patient denies chest pain, shortness of breath, headache, vomiting, diarrhea and constipation. Denies dysuria, frequency, urgency and hematuria. Allergies: chlorpheniramine, cimetidine, codeine, ibuprofen, latex Past surgical Hx: hysterectomy, cholecystectomy, b/l knee surgery, 2 toes amputated - Physicial Exam PE: 11/02/19 19:51 GENERAL: Awake, alert, and fully oriented, in no acute distress LUNGS: Breath sounds equal, clear to auscultation bilaterally. No wheezes, and no crackles HEART: Regular rate and rhythm, normal S1 and S2, no murmurs, rubs or gallops ABDOMEN: +morbidly obese, Soft, nontender, normoactive bowel sounds. No guarding, no rebound. No masses EXTREMITIES: Normal range of motion, no edema. No clubbing or cyanosis. No cords, erythema, or tenderness NEUROLOGICAL: Cranial nerves II through XII grossly intact. SKIN: Warm, Dry, normal turgor, no rashes or lesions noted. - Medical Decision Making 11/02/19 19:56 59-year-old female has complaint of urinary retention, body aches CBC is unremarkable Troponin elevated at 0.22 but her last troponin in October was 0.19 and in October she did have cardiac stents placed She has an AK I Patient is to be admitted ops telemetry
[2019-11-02 21:47] LABS: EPI CELLS 26.9 /HPF (0-5/HPF); HYALINE CASTS 44 /lpf (0-8); URINE APPEARANCE CLOUDY; URINE BACTERIA 56.4 /hpf (NEGATIVE); URINE BILIRUBIN NEGATIVE (NEGATIVE); URINE COLOR YELLOW; URINE GLUCOSE (UA) NEGATIVE (NEGATIVE); URINE KETONE NEGATIVE (NEGATIVE); URINE LEUK ESTERASE 1+ (NEGATIVE); URINE NITRITE NEGATIVE (NEGATIVE); URINE PROTEIN TRACE (NEGATIVE); URINE RBC 3 /hpf (0-4); URINE UROBILINOGEN 0.2 mg/dL (0.2-1.0); URINE WBC 31 /hpf (0-5)
[2019-11-02] MEDS ORDERED: CEFTRIAXONE 1,000 MG in DEXTROSE 5%-WATER - 50 ML IVPB ONE (21:53)
[2019-11-02] MEDS ORDERED: CEFTRIAXONE 1 GM/50 ML BAG ONE (22:11)
[2019-11-03] MEDS ORDERED: ALBUTEROL SO4 2.5/IPRATROPIUM 0.5 INH SOL 3 ML VIAL.NEB. NEB PRN (00:48)
[2019-11-03] MEDS ORDERED: DEXTROSE 5%-0.45% SALINE 1,000 ML IV SCH (01:00)
[2019-11-03] MEDS ORDERED: SACUBITRIL/VALSARTAN 24 MG-26 MG TABLET PO ONE (03:15)
[2019-11-03] MEDS ORDERED: SACUBITRIL/VALSARTAN 24 MG-26 MG TABLET PO SCH (03:15)
[2019-11-03] MEDS ORDERED: LEVOTHYROXINE NA 25 MCG TABLET (FP) ONE (06:57)
[2019-11-03] MEDS ORDERED: GABAPENTIN 100 MG CAPSULE (FP) ONE ×2 (06:57→09:10)
[2019-11-03] MEDS ORDERED: METOCLOPRAMIDE HCL 10 MG TABLET (FP) PO ONE (06:58)
[2019-11-03] MEDS: GABAPENTIN 300 MG CAPSULE (FP) PO SCH ×3 (07:02→21:11)
[2019-11-03] MEDS: METOCLOPRAMIDE HCL 10 MG TABLET (FP) PO SCH ×2 (07:02→16:31)
[2019-11-03] MEDS: LEVOTHYROXINE NA 75 MCG TABLET (FP) PO SCH (07:02)
[2019-11-03 08:43] LABS: BASO % 1.7 % (0-2.0); EOS % 1.5 % (0-4.5); LYMPH % 28.2 % (8-40); MCH 26.8 pg (25.7-33.7); MCHC 32.4 g/dl (32.0-36.0); MEAN CELL VOLUME 82.8 fl (80-96); MEAN PLT VOLUME 9.9 fl (7.5-11.1); MONO % 10.7 % (3.8-10.2); NEUT % 57.9 % (42.8-82.8); PLATELET COUNT 342 K/MM3 (134-434); RBC 4.83 M/mm3 (3.60-5.2); RDW 15.5 % (11.6-15.6); WHITE BLOOD COUNT 6.9 K/mm3 (4.0-10.0)
[2019-11-03 08:56] LABS: ALBUMIN 4.1 g/dl (3.4-5.0); BILIRUBIN,TOTAL 0.6 mg/dL (0.2-1); BLOOD UREA NITROGEN 24.3 mg/dL (7-18); CALCIUM 9.7 mg/dL (8.5-10.1); CREATININE 1.6 mg/dL (0.55-1.3); POTASSIUM 3.6 mmol/L (3.5-5.1)
[2019-11-03] MEDS ORDERED: SPIRONOLACTONE 25 MG TABLET (FP) ONE (09:07)
[2019-11-03] MEDS ORDERED: APIXABAN 5 MG TABLET ONE (09:10)
[2019-11-03] MEDS ORDERED: DULoxetine HCL 30 MG CAPSULE.DR PO ONE (09:10)
[2019-11-03] MEDS ORDERED: PANTOPRAZOLE 40 MG TABLET (FP) ONE (09:10)
[2019-11-03] MEDS ORDERED: DOCUSATE SODIUM 100 MG CAPSULE (FP) PO ONE (09:10)
[2019-11-03] MEDS ORDERED: FUROSEMIDE 40 MG/4 ML INJECTABLE VIAL ONE (09:11)
[2019-11-03] MEDS ORDERED: CEFTRIAXONE 1 GM/50 ML BAG ONE (09:11)
[2019-11-03] MEDS: DOCUSATE SODIUM 100 MG CAPSULE (FP) PO SCH ×2 (09:30→21:12)
[2019-11-03] MEDS: DULoxetine HCL 30 MG CAPSULE.DR PO SCH (09:30)
[2019-11-03] MEDS: APIXABAN 5 MG TABLET PO SCH ×2 (09:31→21:11)
[2019-11-03] MEDS: CEFTRIAXONE 1 GM in DEXTROSE 5%-WATER - 50 ML IVPB SCH (09:31)
[2019-11-03] MEDS: BUDESONIDE/FORMETEROL FUMARATE 160/4.5 mcg INHALER IH SCH ×2 (09:31→22:18)
[2019-11-03] MEDS: PANTOPRAZOLE 40 MG TABLET (FP) PO SCH (09:31)
[2019-11-03] MEDS: metoPROLOL SUCCINATE 25 MG TAB.SR.24H (FP) PO SCH (09:31)
--- NOTE | 2019-11-03 09:57 | EKG ---
Test Reason : Blood Pressure : / mmHG Vent. Rate : 102 BPM Atrial Rate : 102 BPM P-R Int : 142 ms QRS Dur : 124 ms QT Int : 384 ms P-R-T Axes : 063 -23 112 degrees QTc Int : 500 ms SINUS TACHYCARDIA LEFT VENTRICULAR HYPERTROPHY WITH QRS WIDENING AND REPOLARIZATION ABNORMALITY ABNORMAL ECG WHEN COMPARED WITH ECG OF 10-OCT-2019 12:35, PREMATURE VENTRICULAR COMPLEXES ARE NO LONGER PRESENT LEFT BUNDLE BRANCH BLOCK IS NO LONGER PRESENT Confirmed by DEMARCUS MILLER, YUDI ([id number]) on 11/03/2019 9:56:56 AM Referred By: Confirmed By:YUDI TRACY MD
[2019-11-03] MEDS ORDERED: SPIRONOLACTONE 25 MG TABLET (FP) PO SCH (10:00)
[2019-11-03] MEDS ORDERED: FUROSEMIDE 40 MG/4 ML INJECTABLE VIAL IVPUSH SCH (10:00)
[2019-11-03] MEDS ORDERED: PATIENT'S OWN MEDICATION (NON-FORMULARY) (Metoclopramide Hcl [Reglan] 5 MG) PO SCH (10:00)
--- NOTE | 2019-11-03 10:50 | CON.CARD ---
Cardiology Consult (text) - Consultation Consultation Note: Consult Specialty:: cardio - History of Present Illness Chief Complaint: dizziness, leg cramping History of Present Illness: 59 F here with dizziness, leg cramping for the last few days. Recently admitted for CP, dyspnea, was transferred to [facility] for RHC/LHC with Dr. Hernández. Reportedly no obstructive CAD, was switched to entresto on discharge. Was on lasix 40 mg every other day at home initially after discharge in 10/2019, then daily lasix 40 mg daily. Last week she saw Dr. Hernández and lasix was increased to 80 mg daily. Her urine output increased for a few days, felt cramping in her legs, tired. The last two days felt the room was spinning while lying down and worse when she got up to do something. Stable dyspnea on exertion, no chest pain. Occasional palps, stable. PMH: DM, HTN, COPD, syst CHF, hypothyroidism hashimotos, CKD, Afib, nonischemic cardiomyopathy (s/p permanent pacemaker), OA - Past Medical History Cardio/Vascular: Yes: CHF, HTN, Hyperlipdemia Pulmonary: Yes: Asthma, Sleep Apnea ...: No Endocrine: Yes: Diabetes Mellitus, Hypothyroidism - Past Surgical History Past Surgical History: Yes: Cholecystectomy, Joint Replacement (left tkr), Permanent Pacemaker (ICD) - Alcohol/Substance Use Hx Alcohol Use: No - Smoking History Smoking history: Former smoker Have you smoked in the past 12 months: No Aproximately how many cigarettes per day: 0 - Social History Usual Living Arrangement: With Spouse ADL: Independent History of Recent Travel: No Home Medications - Allergies Allergies/Adverse Reactions: Allergies Allergy/AdvReac Type Severity Reaction Status Date / Time tomato Allergy Mild Hives Verified 11/02/19 17:11 chlorpheniramine Allergy Verified 11/02/19 17:11 cimetidine Allergy Verified 11/02/19 17:11 codeine [Codeine] Allergy Verified 11/02/19 17:11 ibuprofen Allergy Verified 11/02/19 17:11 latex [Latex] Allergy Verified 11/02/19 17:11 Latex, Natural Rubber Allergy Verified 11/02/19 17:11 pseudoephedrine Allergy Verified 11/02/19 17:11 salmeterol xinafoate Allergy Verified 11/02/19 17:11 [From Advair Diskus] shellfish derived Allergy Verified 11/02/19 17:11 Sulfa (Sulfonamide Allergy Verified 11/02/19 17:11 Antibiotics) [Sulfa(Sulfonamide Antibiotics)] Chocolate Allergy Mild Hives Uncoded 11/02/19 17:11 shrimp Allergy Mild Hives Uncoded 11/02/19 17:11 Home Medications Medication Instructions Recorded Atorvastatin Ca [Lipitor] 40 mg PO HS 08/09/16 Insulin Glargine,Hum.rec.anlog 20 units SQ AM 08/09/16 [Lantus Solostar PEN -] Budesonide/Formeterol Fumarate 2 puff PO BID 10/14/16 [SYMBICORT 160/4.5mcg -] Linagliptin/Metformin HCl 1 tab PO BID 10/14/16 [Jentadueto 2.5 mg-1000 mg Tab] Albuterol 2.5/Ipratropium 0.5 1 amp NEB Q6H PRN #90 amp 05/21/19 [Duoneb -] Levothyroxine [Synthroid -] 75 mcg PO DAILY #30 tablet 05/21/19 Dexlansoprazole [Dexilant] 60 mg PO DAILY 08/13/19 Gabapentin [Neurontin -] 300 mg PO TID 08/13/19 Insulin Glargine,Hum.rec.anlog 10 units SQ HS 08/13/19 [Lantus Solostar PEN (NF)] Spironolactone [Aldactone] 25 mg PO DAILY 08/13/19 Metoprolol Succinate [Toprol Xl -] 25 mg PO DAILY 10/10/19 Apixaban [Eliquis -] 5 mg PO BID 11/02/19 Dexlansoprazole [Dexilant] 60 mg PO DAILY 11/02/19 Docusate Sodium [Colace -] 100 mg PO BID 11/02/19 Duloxetine HCl [Cymbalta] 30 mg PO DAILY 11/02/19 Furosemide [Lasix -] 40 mg PO DAILY 11/02/19 Linaclotide [Linzess] 290 mcg PO DAILY 11/02/19 Metoclopramide HCl [Reglan] 5 mg PO BID 11/02/19 Sacubitril/Valsartan [Entresto 24 1 each PO ASDIR 11/02/19 mg-26 mg Tablet] Family Medical History Family History: Denies (no known cmp) Review of Systems - Review of Systems Constitutional: denies: Chills, Fever Eyes: denies: Eye Pain HENT: denies: Nasal Congestion Neck: denies: Stiffness Cardiovascular: denies: Palpitations Respiratory: reports: Orthopnea. denies: PND Gastrointestinal: denies: Diarrhea, Rectal Bleeding Genitourinary: denies: Burning, Hematuria Musculoskeletal: denies: Muscle Pain Integumentary: denies: Rash Neurological: denies: Numbness, Seizure, Syncope Endocrine: denies: Excessive Sweating Hematology/Lymphatic: denies: Excessive Bleeding Vital Signs: Vital Signs Period Temp Pulse Resp BP Sys/Mcgrath Pulse Ox Last 24 Hr 97.7 F 91-105 16-18 98-108/45-69 96-98 Constitutional: Yes: Well Nourished, No Distress, Obese Eyes: No: Sclera Icterus HENT: No: Nasal Congestion Neck: No: Decreased ROM Respiratory: Yes: CTA Bilaterally. No: Accessory Muscle Use, Rales, Wheezes Gastrointestinal: Yes: Normal Bowel Sounds. No: Distention, Hepatomegaly, Palpable Mass, Tenderness Cardiovascular: Yes: Regular Rate and Rhythm JVD: No Carotid Bruit: No PMI: Non-Displaced Heart Sounds: Yes: S1, S2. No: Gallop Murmur: No: Systolic Murmur, Diastolic Murmur Musculoskeletal: Yes: Other (No kyphosis) Extremities: No: Cool, Cyanosis Edema: No Peripheral Pulses: 2+ Left Carotid, 2+ Right Carotid, 2+ Left Doralis Pedis, 2+ Right Dorsalis Pedis Integumentary: No: Jaundice Neurological: Yes: Alert, Oriented (x3) Psychiatric: No: Agitated Laboratory Last Values WBC 6.9 K/mm3 (4.0-10.0) 11/03/19 08:12 RBC 4.83 M/mm3 (3.60-5.2) 11/03/19 08:12 Hgb 13.0 GM/dL (10.7-15.3) 11/03/19 08:12 Hct 40.0 % (32.4-45.2) 11/03/19 08:12 MCV 82.8 fl (80-96) 11/03/19 08:12 MCH 26.8 pg (25.7-33.7) 11/03/19 08:12 MCHC 32.4 g/dl (32.0-36.0) 11/03/19 08:12 RDW 15.5 % (11.6-15.6) 11/03/19 08:12 Plt Count 342 K/MM3 (134-434) 11/03/19 08:12 MPV 9.9 fl (7.5-11.1) 11/03/19 08:12 Absolute Neuts (auto) 4.0 K/mm3 (1.5-8.0) 11/03/19 08:12 Neutrophils % 57.9 % (42.8-82.8) D 11/03/19 08:12 Lymphocytes % 28.2 % (8-40) D 11/03/19 08:12 Monocytes % 10.7 % (3.8-10.2) H 11/03/19 08:12 Eosinophils % 1.5 % (0-4.5) D 11/03/19 08:12 Basophils % 1.7 % (0-2.0) 11/03/19 08:12 Nucleated RBC % 0 % (0-0) 11/03/19 08:12 Sodium 132 mmol/L (136-145) L 11/03/19 08:12 Potassium 3.6 mmol/L (3.5-5.1) 11/03/19 08:12 Chloride 93 mmol/L (98-107) L 11/03/19 08:12 Carbon Dioxide 29 mmol/L (21-32) 11/03/19 08:12 Anion Gap 10 MMOL/L (8-16) 11/03/19 08:12 BUN 24.3 mg/dL (7-18) H 11/03/19 08:12 Creatinine 1.6 mg/dL (0.55-1.3) H 11/03/19 08:12 Est GFR (CKD-EPI)AfAm 40.46 11/03/19 08:12 Est GFR (CKD-EPI)NonAf 34.91 11/03/19 08:12 Random Glucose 164 mg/dL (74-106) H 11/03/19 08:12 Calcium 9.7 mg/dL (8.5-10.1) 11/03/19 08:12 Magnesium 2.0 mg/dL (1.8-2.4) 11/02/19 16:31 Total Bilirubin 0.6 mg/dL (0.2-1) 11/03/19 08:12 AST 21 U/L (15-37) 11/03/19 08:12 ALT 13 U/L (13-61) 11/03/19 08:12 Alkaline Phosphatase 92 U/L (45-117) 11/03/19 08:12 Creatine Kinase 616 U/L (26-192) H 11/03/19 00:41 Creatine Kinase Index 0.2 % (0.0-5.0) 11/03/19 00:41 CK-MB (CK-2) 1.5 ng/mL (0.5-3.6) 11/03/19 00:41 Troponin I 0.24 ng/ml (0.00-0.05) H 11/03/19 00:41 Total Protein 8.0 g/dl (6.4-8.2) 11/03/19 08:12 Albumin 4.1 g/dl (3.4-5.0) 11/03/19 08:12 Lipase 115 U/L (73-393) 11/02/19 16:31 Urine Color Yellow 11/02/19 18:00 Urine Appearance Cloudy 11/02/19 18:00 Urine pH 5.0 (5.0-8.0) 11/02/19 18:00 Ur Specific [place] 1.022 (1.010-1.035) 11/02/19 18:00 Urine Protein Trace (NEGATIVE) 11/02/19 18:00 Urine Glucose (UA) Negative (NEGATIVE) 11/02/19 18:00 Urine Ketones Negative (NEGATIVE) 11/02/19 18:00 Urine Blood Trace (NEGATIVE) 11/02/19 18:00 Urine Nitrite Negative (NEGATIVE) 11/02/19 18:00 Urine Bilirubin Negative (NEGATIVE) 11/02/19 18:00 Urine Urobilinogen 0.2 mg/dL (0.2-1.0) 11/02/19 18:00 Ur Leukocyte Esterase 1+ (NEGATIVE) H 11/02/19 18:00 Urine WBC (Auto) 31 /hpf (0-5) 11/02/19 18:00 Urine RBC (Auto) 3 /hpf (0-4) 11/02/19 18:00 Urine Casts (Auto) 44 /lpf (0-8) 11/02/19 18:00 U Pathogenic Cast Auto none /lpf (NEGATIVE) 11/02/19 18:00 U Epithel Cells (Auto) 26.9 /HPF (0-5/HPF) 11/02/19 18:00 Urine Bacteria (Auto) 56.4 /hpf (NEGATIVE) 11/02/19 18:00 Influenza A (Rapid) Negative (Negative) 11/03/19 01:13 Influenza B (Rapid) Negative (Negative) 11/03/19 01:13 Assessment/Plan Cardiac Catheterization (non-obstructive CAD) echo 05/2019 tds, mildly dilated LV, severe global hypok, RV nl CXR: no congestion or effusion seen EKG: sinus tach, LBBB tele: sinus, PVCs dizziness, fatigue - likely in setting of overdiuresis - lasix increased to 80 mg daily last week - received lasix 40 mg IV today, monitor volume status - check orthostatics MU - likely prerenal - renal consulted UTI - manage per primary elevated trop - indeterminate range, flat trend likely in setting of cardiomyopathy, MU ( similar to prior values) - symptoms atypical for ACS, stable EKG - less likely ACS chronic systolic HF, s/p ICD - recent RHC/LHC at [facility] reportedly no significant findings - CXR no congestion, appears euvolemic - cont entresto, spironolactone, metoprolol - received IV lasix today - monitor volume status - outpatient ICD monitoring copd/asthma: - manage per primary HTN: - bp controlled paroxysmal afib - in sinus here--cont home bb - cont home eliquis for AC (5 bid) HLD - cont statin
--- NOTE | 2019-11-03 12:55 | CONSULT ---
Consult Consult Specialty:: Nephrology Reason for Consultation:: MU - History of Present Illness Chief Complaint: dizziness History of Present Illness: Pt is a 59 year old female with pmhx of dm, htn, hld, chf, ckd, víctor. obesity and copd who presents to the ER with dizziness and nausea. She also complains of abdominal pain. I was called to see her for MU. She has history of CKD and MU. She was on lasix 40 mg every other day which was changed to 40mg daily which was then changed to 80 mg daily. She has not passed stool or gas. She complains of abd pain. - History Source History Provided By: Patient, Medical Record - Past Medical History Cardio/Vascular: Yes: CHF, HTN, Hyperlipdemia Pulmonary: Yes: Asthma, Sleep Apnea Endocrine: Yes: Diabetes Mellitus, Hypothyroidism - Past Surgical History Past Surgical History: Yes: Cholecystectomy, Joint Replacement (left tkr), Permanent Pacemaker (ICD) - Alcohol/Substance Use Hx Alcohol Use: No - Smoking History Smoking history: Former smoker Have you smoked in the past 12 months: No Aproximately how many cigarettes per day: 0 - Social History Usual Living Arrangement: With Spouse ADL: Independent History of Recent Travel: No Home Medications - Allergies Allergies/Adverse Reactions: Allergies Allergy/AdvReac Type Severity Reaction Status Date / Time tomato Allergy Mild Hives Verified 11/02/19 17:11 chlorpheniramine Allergy Verified 11/02/19 17:11 cimetidine Allergy Verified 11/02/19 17:11 codeine [Codeine] Allergy Verified 11/02/19 17:11 ibuprofen Allergy Verified 11/02/19 17:11 latex [Latex] Allergy Verified 11/02/19 17:11 Latex, Natural Rubber Allergy Verified 11/02/19 17:11 pseudoephedrine Allergy Verified 11/02/19 17:11 salmeterol xinafoate Allergy Verified 11/02/19 17:11 [From Advair Diskus] shellfish derived Allergy Verified 11/02/19 17:11 Sulfa (Sulfonamide Allergy Verified 11/02/19 17:11 Antibiotics) [Sulfa(Sulfonamide Antibiotics)] Chocolate Allergy Mild Hives Uncoded 11/02/19 17:11 shrimp Allergy Mild Hives Uncoded 11/02/19 17:11 - Home Medications Home Medications: Ambulatory Orders Atorvastatin Ca [Lipitor] 40 mg PO HS 08/09/16 Insulin Glargine,Hum.rec.anlog [Lantus Solostar PEN -] 20 units SQ AM 08/09/16 Budesonide/Formeterol Fumarate [SYMBICORT 160/4.5mcg -] 2 puff PO BID 10/14/16 Linagliptin/Metformin HCl [Jentadueto 2.5 mg-1000 mg Tab] 1 tab PO BID 10/14/16 Albuterol 2.5/Ipratropium 0.5 [Duoneb -] 1 amp NEB Q6H PRN #90 amp 05/21/19 Levothyroxine [Synthroid -] 75 mcg PO DAILY #30 tablet 05/21/19 Dexlansoprazole [Dexilant] 60 mg PO DAILY 08/13/19 Gabapentin [Neurontin -] 300 mg PO TID 08/13/19 Insulin Glargine,Hum.rec.anlog [Lantus Solostar PEN (NF)] 10 units SQ HS Spironolactone [Aldactone] 25 mg PO DAILY 08/13/19 Metoprolol Succinate [Toprol Xl -] 25 mg PO DAILY 10/10/19 Apixaban [Eliquis -] 5 mg PO BID 11/02/19 Dexlansoprazole [Dexilant] 60 mg PO DAILY 11/02/19 Docusate Sodium [Colace -] 100 mg PO BID 11/02/19 Duloxetine HCl [Cymbalta] 30 mg PO DAILY 11/02/19 Furosemide [Lasix -] 40 mg PO DAILY 11/02/19 Linaclotide [Linzess] 290 mcg PO DAILY 11/02/19 Metoclopramide HCl [Reglan] 5 mg PO BID 11/02/19 Sacubitril/Valsartan [Entresto 24 mg-26 mg Tablet] 1 each PO ASDIR 11/02/19 Family Medical History Family History: Denies Review of Systems - Review of Systems Constitutional: reports: Malaise Eyes: reports: No Symptoms HENT: reports: No Symptoms Neck: reports: No Symptoms Cardiovascular: reports: Edema, Shortness of Breath Respiratory: reports: SOB, SOB on Exertion Gastrointestinal: reports: Abdominal Pain Genitourinary: reports: No Symptoms Musculoskeletal: reports: No Symptoms Neurological: reports: Dizziness Endocrine: reports: No Symptoms Psychiatric: reports: No Symptoms Physical Exam Vital Signs: Vital Signs Temperature 98.0 F 11/03/19 12:24 Pulse Rate 94 H 11/03/19 12:24 Respiratory Rate 20 11/03/19 12:24 Blood Pressure 128/87 11/03/19 12:24 O2 Sat by Pulse Oximetry (%) 95 11/03/19 12:24 Constitutional: Yes: Calm Eyes: Yes: Conjunctiva Clear HENT: Yes: Atraumatic Cardiovascular: Yes: S1, S2 Respiratory: Yes: CTA Bilaterally Gastrointestinal: Yes: Abdomen, Obese, Tenderness Renal/: Yes: WNL Musculoskeletal: Yes: WNL Edema: No Neurological: Yes: Oriented Psychiatric: Yes: Oriented Labs: CBC, BMP 11/03/19 08:12 11/03/19 08:12 Laboratory Tests 10/10/19 10/11/19 10/12/19 12:55 05:30 05:30 Sodium Creatinine 1.2 1.2 1.3 Urine Protein Urine Blood 11/02/19 11/02/19 11/03/19 16:31 18:00 08:12 Sodium 130 L 132 L Creatinine 1.6 H 1.6 H Urine Protein Trace Urine Blood Trace Imaging - Results Chest X-ray: Report Reviewed Problem List - Problems (1) Abdominal pain Code(s): R10.9 - UNSPECIFIED ABDOMINAL PAIN (2) MU (acute kidney injury) Code(s): N17.9 - ACUTE KIDNEY FAILURE, UNSPECIFIED Assessment/Plan Current Medications Generic Name Dose Route Start Last Admin Trade Name Freq PRN Reason Stop Dose Admin Albuterol/Ipratropium 1 amp 11/03/19 00:48 Duoneb - NEB RQID PRN SHORTNESS OF BREATH Apixaban 5 mg 11/03/19 10:00 11/03/19 09:31 Eliquis - PO 5 mg BID DOM Administration Atorvastatin Calcium 40 mg 11/03/19 22:00 Lipitor - PO HS DOM Budesonide/Formoterol Fumarate 2 puff 11/03/19 10:00 11/03/19 09:31 Symbicort 160/4.5mcg - IH 2 puff BID DOM Administration Docusate Sodium 100 mg 11/03/19 10:00 11/03/19 09:30 Colace - PO 100 mg BID DOM Administration Duloxetine HCl 30 mg 11/03/19 10:00 11/03/19 09:30 Cymbalta - PO 30 mg DAILY DOM Administration Gabapentin 300 mg 11/03/19 06:00 11/03/19 07:02 Neurontin - PO 300 mg TID DOM Administration Ceftriaxone Sodium 1 gm/ 50 mls @ 100 mls/hr 11/03/19 10:00 11/03/19 09:31 Dextrose IVPB 100 mls/hr DAILY DOM Administration Protocol Dextrose/Sodium Chloride 1,000 mls @ 75 mls/hr 11/03/19 01:00 11/03/19 00:56 D5-1/2ns - IV 75 mls/hr ASDIR DOM Administration Levothyroxine Sodium 75 mcg 11/03/19 07:00 11/03/19 07:02 Synthroid - PO 75 mcg ACBK DOM Administration Metoclopramide HCl 10 mg 11/03/19 07:00 11/03/19 07:02 Reglan - PO 10 mg BIDAC DOM Administration Metoprolol Succinate 25 mg 11/03/19 10:00 11/03/19 09:31 Toprol Xl - PO 25 mg DAILY DOM Administration Pantoprazole Sodium 40 mg 11/03/19 10:00 11/03/19 09:31 Protonix - PO 40 mg DAILY DOM Administration Sacubitril/Valsartan 1 tab 11/03/19 01:00 Entresto 24 Mg-26 Mg Tablet PO ASDIR DOM Spironolactone 25 mg 11/03/19 10:00 11/03/19 09:30 Aldactone - PO 25 mg DAILY DOM Administration Impression 1. ckd 2. abd pain 3. asthma 4. chf 5. obesity 6. hypotension 7. a-fib Plan - monitor renal function - follow ct abd and pelvis - called and discussed with primary team - d/c fluids - hold aldactone for now - follow surgery eval
--- NOTE | 2019-11-03 14:44 | HP ---
Admitting History and Physical - Admission History of Present Illness: Pt is a 59 year old female with pmhx of dm, htn, hld, chf, ckd, víctor. obesity and copd who presents to the ER with dizziness and nausea. She also complains of abdominal pain. She was on lasix 40 mg every other day which was changed to 40mg daily which was then changed to 80 mg daily. - Past Medical History Cardiovascular: Yes: CHF, HTN, Hyperlipdemia Pulmonary: Yes: Asthma, Sleep Apnea Endocrine: Yes: Diabetes Mellitus, Hypothyroidism - Past Surgical History Past Surgical History: Yes: Cholecystectomy, Joint Replacement (left tkr), Permanent Pacemaker (ICD) - Smoking History Smoking history: Former smoker Have you smoked in the past 12 months: No Aproximately how many cigarettes per day: 0 - Alcohol/Substance Use Hx Alcohol Use: No - Social History ADL: Independent History of Recent Travel: No Home Medications - Allergies Allergies/Adverse Reactions: Allergies Allergy/AdvReac Type Severity Reaction Status Date / Time tomato Allergy Mild Hives Verified 11/02/19 17:11 chlorpheniramine Allergy Verified 11/02/19 17:11 cimetidine Allergy Verified 11/02/19 17:11 codeine [Codeine] Allergy Verified 11/02/19 17:11 ibuprofen Allergy Verified 11/02/19 17:11 latex [Latex] Allergy Verified 11/02/19 17:11 Latex, Natural Rubber Allergy Verified 11/02/19 17:11 pseudoephedrine Allergy Verified 11/02/19 17:11 salmeterol xinafoate Allergy Verified 11/02/19 17:11 [From Advair Diskus] shellfish derived Allergy Verified 11/02/19 17:11 Sulfa (Sulfonamide Allergy Verified 11/02/19 17:11 Antibiotics) [Sulfa(Sulfonamide Antibiotics)] Chocolate Allergy Mild Hives Uncoded 11/02/19 17:11 shrimp Allergy Mild Hives Uncoded 11/02/19 17:11 - Home Medications Home Medications: Ambulatory Orders Atorvastatin Ca [Lipitor] 40 mg PO HS 08/09/16 Insulin Glargine,Hum.rec.anlog [Lantus Solostar PEN -] 20 units SQ AM 08/09/16 Budesonide/Formeterol Fumarate [SYMBICORT 160/4.5mcg -] 2 puff PO BID 10/14/16 Linagliptin/Metformin HCl [Jentadueto 2.5 mg-1000 mg Tab] 1 tab PO BID 10/14/16 Albuterol 2.5/Ipratropium 0.5 [Duoneb -] 1 amp NEB Q6H PRN #90 amp 05/21/19 Levothyroxine [Synthroid -] 75 mcg PO DAILY #30 tablet 05/21/19 Dexlansoprazole [Dexilant -] 60 mg PO DAILY 08/13/19 Gabapentin [Neurontin -] 300 mg PO TID 08/13/19 Insulin Glargine,Hum.rec.anlog [Lantus Solostar PEN -] 10 units SQ HS 08/13/19 Metoprolol Succinate [Toprol XL -] 25 mg PO DAILY 10/10/19 Apixaban [Eliquis -] 5 mg PO BID 11/02/19 Dexlansoprazole [Dexilant -] 60 mg PO DAILY 11/02/19 Docusate Sodium [Colace -] 100 mg PO BID 11/02/19 Duloxetine HCl [Cymbalta] 30 mg PO DAILY 11/02/19 Linaclotide [Linzess] 290 mcg PO DAILY 11/02/19 Metoclopramide HCl [Reglan] 5 mg PO BID 11/02/19 Sacubitril/Valsartan [Entresto 24 mg-26 mg Tablet] 1 each PO ASDIR 11/02/19 Furosemide [Lasix -] 20 mg PO DAILY #30 tablet 11/06/19 Spironolactone [Aldactone -] 50 mg PO DAILY #30 tablet 11/06/19 Family Medical History Family History: Unremarkable Review of Systems - Review of Systems Constitutional: reports: Loss of Appetite, Malaise, Weakness Eyes: reports: No Symptoms HENT: reports: No Symptoms Neck: reports: No Symptoms Cardiovascular: reports: No Symptoms Respiratory: reports: No Symptoms Gastrointestinal: reports: Abdominal Pain Genitourinary: reports: No Symptoms Physical Examination Vital Signs: Vital Signs Temperature 98.5 F 11/03/19 14:29 Pulse Rate 93 H 11/03/19 14:29 Respiratory Rate 11/03/19 14:29 Blood Pressure 136/68 11/03/19 14:29 O2 Sat by Pulse Oximetry (%) 99 11/03/19 14:29 Constitutional: Yes: Well Nourished Eyes: Yes: WNL HENT: Yes: WNL Neck: Yes: WNL, Supple Cardiovascular: Yes: WNL, Regular Rate and Rhythm Respiratory: Yes: WNL, Regular, CTA Bilaterally Gastrointestinal: Yes: WNL, Normal Bowel Sounds, Soft, Abdomen, Obese Musculoskeletal: Yes: WNL Extremities: Yes: WNL Edema: No Neurological: Yes: WNL, Alert, Oriented ...Motor Strength: WNL Labs: CBC, BMP 11/03/19 08:12 11/03/19 08:12 Problem List - Problems (1) Dizziness Assessment/Plan: Monitor I/O's Cardio/renal consults Serial cpk/troponin Code(s): R42 - DIZZINESS AND GIDDINESS (2) Chronic systolic CHF (congestive heart failure), NYHA class 3 Assessment/Plan: Pt was given dose of IV lasix However will hold lasix and monitor Code(s): I50.22 - CHRONIC SYSTOLIC (CONGESTIVE) HEART FAILURE (3) Acute on chronic renal failure Assessment/Plan: Cont to monitor electrolytes Renal consult Code(s): N17.9 - ACUTE KIDNEY FAILURE, UNSPECIFIED; N18.9 - CHRONIC KIDNEY DISEASE, UNSPECIFIED (4) Abdominal pain Assessment/Plan: Will check ct scan abd Code(s): R10.9 - UNSPECIFIED ABDOMINAL PAIN Qualifiers: Abdominal location: unspecified location Qualified Code(s): R10.9 - Unspecified abdominal pain (5) CAD (coronary artery disease) Code(s): I25.10 - ATHSCL HEART DISEASE OF [place] CORONARY ARTERY W/O ANG PCTRS (6) COPD (chronic obstructive pulmonary disease) Assessment/Plan: Cont duoneb/symbicort Code(s): J44.9 - CHRONIC OBSTRUCTIVE PULMONARY DISEASE, UNSPECIFIED Qualifiers: COPD type: chronic bronchitis Chronic bronchitis type: unspecified Qualified Code(s): J42 - Unspecified chronic bronchitis (7) Diabetes Assessment/Plan: Cont levemir Cont sliding scale w/ coverage Metformin was dc'ed due to diarrhea Code(s): E11.9 - TYPE 2 DIABETES MELLITUS WITHOUT COMPLICATIONS Qualifiers: Diabetes mellitus type: type 2 (8) Hyperlipidemia Assessment/Plan: Cont lipitor Code(s): E78.5 - HYPERLIPIDEMIA, UNSPECIFIED (9) Hypertension Assessment/Plan: BP stable Cont torpol Code(s): I10 - ESSENTIAL (PRIMARY) HYPERTENSION Qualifiers: Hypertension type: essential hypertension Qualified Code(s): I10 - Essential (primary) hypertension (10) Hypothyroidism Assessment/Plan: Cont levothyroxine Check tsh Code(s): E03.9 - HYPOTHYROIDISM, UNSPECIFIED (11) ICD (implantable cardioverter-defibrillator) in place Code(s): Z95.810 - PRESENCE OF AUTOMATIC (IMPLANTABLE) CARDIAC DEFIBRILLATOR (12) Paroxysmal A-fib Assessment/Plan: Heart rate controlled Cont eliquis Code(s): I48.0 - PAROXYSMAL ATRIAL FIBRILLATION (13) Sleep apnea Code(s): G47.30 - SLEEP APNEA, UNSPECIFIED (14) UTI (urinary tract infection) Assessment/Plan: Urine culture was negative for UTI IV ceftriaxone was dc'ed Code(s): N39.0 - URINARY TRACT INFECTION, SITE NOT SPECIFIED Qualifiers: Urinary tract infection type: acute cystitis Hematuria presence: without hematuria Qualified Code(s): N30.00 - Acute cystitis without hematuria (15) Morbid obesity Code(s): E66.01 - MORBID (SEVERE) OBESITY DUE TO EXCESS CALORIES
[2019-11-03 15:37] VITALS: BMI 39.1
--- NOTE | 2019-11-03 21:09 | CONSULT ---
Consult Consult Specialty:: Surgery Reason for Consultation:: abdominal pain - History of Present Illness Chief Complaint: abdominal pain History of Present Illness: Madhuri Cho is a 59yF w PMHx DM, HTN, HLD, ACS s/p NE pacemaker and stents, CHF, asthma, COPD, morbid obesity presenting with nausea, non productive cough, R abdominal pain. Symptoms started yesterday noon, with associated dizziness, generalized body aches, headache, fevers/chills, reduced appetite. Last urine this morning. Denies vomiting, chest pain, bowel movement changes. Was cathed at [facility] last month for frequent N/STEMI, no stents placed. Currently has mild abdominal pain at area of incisional hernia. Denies N & V, and has loose bm's. - History Source History Provided By: Patient - Past Medical History Cardio/Vascular: Yes: CHF, HTN, Hyperlipdemia Pulmonary: Yes: Asthma, Sleep Apnea Endocrine: Yes: Diabetes Mellitus, Hypothyroidism - Past Surgical History Past Surgical History: Yes: Cholecystectomy, Hysterectomy, Joint Replacement ( left tkr), Permanent Pacemaker (ICD) Additional Surgical History: skin grafting of abdominal wall defect - Alcohol/Substance Use Hx Alcohol Use: No - Smoking History Smoking history: Former smoker Have you smoked in the past 12 months: No Aproximately how many cigarettes per day: 0 - Social History Usual Living Arrangement: With Spouse ADL: Independent History of Recent Travel: No Home Medications - Allergies Allergies/Adverse Reactions: Allergies Allergy/AdvReac Type Severity Reaction Status Date / Time tomato Allergy Mild Hives Verified 11/02/19 17:11 chlorpheniramine Allergy Verified 11/02/19 17:11 cimetidine Allergy Verified 11/02/19 17:11 codeine [Codeine] Allergy Verified 11/02/19 17:11 ibuprofen Allergy Verified 11/02/19 17:11 latex [Latex] Allergy Verified 11/02/19 17:11 Latex, Natural Rubber Allergy Verified 11/02/19 17:11 pseudoephedrine Allergy Verified 11/02/19 17:11 salmeterol xinafoate Allergy Verified 11/02/19 17:11 [From Advair Diskus] shellfish derived Allergy Verified 11/02/19 17:11 Sulfa (Sulfonamide Allergy Verified 11/02/19 17:11 Antibiotics) [Sulfa(Sulfonamide Antibiotics)] Chocolate Allergy Mild Hives Uncoded 11/02/19 17:11 shrimp Allergy Mild Hives Uncoded 11/02/19 17:11 - Home Medications Home Medications: Ambulatory Orders Atorvastatin Ca [Lipitor] 40 mg PO HS 08/09/16 Insulin Glargine,Hum.rec.anlog [Lantus Solostar PEN -] 20 units SQ AM 08/09/16 Budesonide/Formeterol Fumarate [SYMBICORT 160/4.5mcg -] 2 puff PO BID 10/14/16 Linagliptin/Metformin HCl [Jentadueto 2.5 mg-1000 mg Tab] 1 tab PO BID 10/14/16 Albuterol 2.5/Ipratropium 0.5 [Duoneb -] 1 amp NEB Q6H PRN #90 amp 05/21/19 Levothyroxine [Synthroid -] 75 mcg PO DAILY #30 tablet 05/21/19 Dexlansoprazole [Dexilant] 60 mg PO DAILY 08/13/19 Gabapentin [Neurontin -] 300 mg PO TID 08/13/19 Insulin Glargine,Hum.rec.anlog [Lantus Solostar PEN (NF)] 10 units SQ HS Spironolactone [Aldactone] 25 mg PO DAILY 08/13/19 Metoprolol Succinate [Toprol Xl -] 25 mg PO DAILY 10/10/19 Apixaban [Eliquis -] 5 mg PO BID 11/02/19 Dexlansoprazole [Dexilant] 60 mg PO DAILY 11/02/19 Docusate Sodium [Colace -] 100 mg PO BID 11/02/19 Duloxetine HCl [Cymbalta] 30 mg PO DAILY 11/02/19 Furosemide [Lasix -] 40 mg PO DAILY 11/02/19 Linaclotide [Linzess] 290 mcg PO DAILY 11/02/19 Metoclopramide HCl [Reglan] 5 mg PO BID 11/02/19 Sacubitril/Valsartan [Entresto 24 mg-26 mg Tablet] 1 each PO ASDIR 11/02/19 Physical Exam Vital Signs: Vital Signs Temperature 98.2 F 11/03/19 17:30 Pulse Rate 98 H 11/03/19 17:30 Respiratory Rate 19 11/03/19 17:30 Blood Pressure 107/52 L 11/03/19 17:30 O2 Sat by Pulse Oximetry (%) 99 11/03/19 15:13 Constitutional: Yes: Obese Eyes: Yes: Conjunctiva Clear HENT: Yes: Normocephalic, Tonsillar Exudate Cardiovascular: Yes: Regular Rate and Rhythm Respiratory: Yes: CTA Bilaterally Gastrointestinal: Yes: Abdomen, Obese, Tenderness (over right paraumbilical incisional hernia, no rebound tenderness) ...Rectal Exam: Yes: Deferred Labs: CBC, BMP 11/03/19 08:12 11/03/19 08:12 Problem List - Problems (1) Abdominal pain Assessment/Plan: incisional hernia, without obstruction agree with CT A/P Code(s): R10.9 - UNSPECIFIED ABDOMINAL PAIN
[2019-11-03] MEDS: ATORVASTATIN CA 40 MG TABLET (FP) PO SCH (21:12)
[2019-11-03] MEDS ORDERED: PT OWN MED DRAWER 7, Y5N ONE ×2 (21:16→21:17)
[2019-11-04] MEDS ORDERED: PT OWN MED DRAWER 7, Y5N ONE ×2 (00:35→14:09)
[2019-11-04] MEDS: LEVOTHYROXINE NA 75 MCG TABLET (FP) PO SCH (06:56)
[2019-11-04] MEDS: METOCLOPRAMIDE HCL 10 MG TABLET (FP) PO SCH ×2 (06:56→17:02)
[2019-11-04] MEDS: GABAPENTIN 300 MG CAPSULE (FP) PO SCH ×3 (06:56→21:47)
[2019-11-04 08:09] LABS: ALBUMIN 3.6 g/dl (3.4-5.0); BILIRUBIN,TOTAL 0.4 mg/dL (0.2-1); CALCIUM 9.6 mg/dL (8.5-10.1); CREATININE 1.3 mg/dL (0.55-1.3); POTASSIUM 3.5 mmol/L (3.5-5.1); TOT PROT 7.1 g/dl (6.4-8.2)
[2019-11-04] MEDS ORDERED: DEXTROSE 5%-WATER - 50 ML IVPB ONE (08:52)
[2019-11-04] MEDS ORDERED: cefTRIAXone SODIUM 1 GM VIAL ONE (08:52)
[2019-11-04] MEDS: APIXABAN 5 MG TABLET PO SCH ×2 (09:03→21:47)
[2019-11-04] MEDS: metoPROLOL SUCCINATE 25 MG TAB.SR.24H (FP) PO SCH (09:04)
[2019-11-04] MEDS: DOCUSATE SODIUM 100 MG CAPSULE (FP) PO SCH ×2 (09:06→21:48)
[2019-11-04] MEDS: CEFTRIAXONE 1 GM in DEXTROSE 5%-WATER - 50 ML IVPB SCH (09:06)
[2019-11-04] MEDS: PANTOPRAZOLE 40 MG TABLET (FP) PO SCH (09:07)
[2019-11-04] MEDS: DULoxetine HCL 30 MG CAPSULE.DR PO SCH (09:07)
[2019-11-04] MEDS: BUDESONIDE/FORMETEROL FUMARATE 160/4.5 mcg INHALER IH SCH ×2 (09:07→21:48)
--- NOTE | 2019-11-04 10:25 | PN ---
Progress Note (short form) - Note Progress Note: s: no cp sob palps dizzy Current Medications Generic Name Dose Route Start Last Admin Trade Name Freq PRN Reason Stop Dose Admin Albuterol/Ipratropium 1 amp 11/03/19 00:48 Duoneb - NEB RQID PRN SHORTNESS OF BREATH Apixaban 5 mg 11/03/19 10:00 11/04/19 09:03 Eliquis - PO 5 mg BID DOM Administration Atorvastatin Calcium 40 mg 11/03/19 22:00 11/03/19 21:12 Lipitor - PO 40 mg HS DOM Administration Budesonide/Formoterol Fumarate 2 puff 11/03/19 10:00 11/04/19 09:07 Symbicort 160/4.5mcg - IH 2 puff BID DOM Administration Docusate Sodium 100 mg 11/03/19 10:00 11/04/19 09:06 Colace - PO Not Given BID DOM Duloxetine HCl 30 mg 11/03/19 10:00 11/04/19 09:07 Cymbalta - PO 30 mg DAILY DOM Administration Gabapentin 300 mg 11/03/19 06:00 11/04/19 06:56 Neurontin - PO 300 mg TID DOM Administration Ceftriaxone Sodium 1 gm/ 50 mls @ 100 mls/hr 11/03/19 10:00 11/04/19 09:06 Dextrose IVPB 100 mls/hr DAILY DOM Administration Protocol Levothyroxine Sodium 75 mcg 11/03/19 07:00 11/04/19 06:56 Synthroid - PO 75 mcg ACBK DOM Administration Metoclopramide HCl 10 mg 11/03/19 07:00 11/04/19 06:56 Reglan - PO 10 mg BIDAC DOM Administration Metoprolol Succinate 25 mg 11/03/19 10:00 11/04/19 09:04 Toprol Xl - PO 25 mg DAILY DOM Administration Pantoprazole Sodium 40 mg 11/03/19 10:00 11/04/19 09:07 Protonix - PO 40 mg DAILY DOM Administration Sacubitril/Valsartan 1 tab 11/03/19 01:00 Entresto 24 Mg-26 Mg Tablet PO ASDIR DOM Vital Signs Period Temp Pulse Resp BP Sys/Mcgrath Pulse Ox Last 24 Hr 98 F-98.5 F 75-106 16-20 107-136/51-87 95-99 Constitutional: Yes: Well Nourished, No Distress, Obese Eyes: No: Sclera Icterus Respiratory: Yes: CTA Bilaterally. No: Accessory Muscle Use, Rales, Wheezes Gastrointestinal: Yes: Normal Bowel Sounds. No: Distention, Hepatomegaly, Palpable Mass, Tenderness Cardiovascular: Yes: Regular Rate and Rhythm JVD: No Heart Sounds: Yes: S1, S2. No: Gallop Murmur: No: Systolic Murmur, Diastolic Murmur Extremities: No: Cool, Cyanosis Edema: No Peripheral Pulses: 2+ Left Carotid, 2+ Right Carotid, 2+ Left Doralis Pedis, 2+ Right Dorsalis Pedis Integumentary: No: Jaundice Neurological: Yes: Alert, Oriented (x3) Psychiatric: No: Agitated CBC, BMP 11/03/19 08:12 11/04/19 06:55 Assessment/Plan Cardiac Catheterization (non-obstructive CAD) echo 05/2019 tds, mildly dilated LV, severe global hypok, RV nl CXR: no congestion or effusion seen EKG: sinus tach, LBBB tele: sinus dizziness, fatigue - likely in setting of overdiuresis - lasix increased to 80 mg daily last week - sxs improved with ivfs MU - likely prerenal, cr improved with ivfs - renal consulted - resume lasix when cr stable UTI - manage per primary elevated trop - indeterminate range, flat trend likely in setting of cardiomyopathy, MU ( similar to prior values) - symptoms atypical for ACS, stable EKG - less likely ACS chronic systolic HF, s/p ICD - recent RHC/LHC at [facility] reportedly no significant findings - CXR no congestion, appears euvolemic - cont entresto, spironolactone, metoprolol - lasix as above - outpatient ICD monitoring copd/asthma: - manage per primary HTN: - bp controlled paroxysmal afib - in sinus here--cont home bb - cont home eliquis for AC (5 bid) HLD - cont statin
[2019-11-04] MEDS: SACUBITRIL/VALSARTAN 24 MG-26 MG TABLET PO SCH ×2 (13:46→21:48)
--- NOTE | 2019-11-04 15:34 | PN ---
Progress Note, Physician History of Present Illness: Pt seen and examined at bedside. She is awake and alert. She feels that her breathing is improved. - Current Medication List Current Medications: Active Medications Albuterol/Ipratropium (Duoneb -) 1 amp NEB RQID PRN PRN Reason: SHORTNESS OF BREATH Apixaban (Eliquis -) 5 mg PO BID [facility] Last Admin: 11/04/19 09:03 Dose: 5 mg Atorvastatin Calcium (Lipitor -) 40 mg PO HS [facility] Last Admin: 11/03/19 21:12 Dose: 40 mg Budesonide/Formoterol Fumarate (Symbicort 160/4.5mcg -) 2 puff IH BID [facility] Last Admin: 11/04/19 09:07 Dose: 2 puff Docusate Sodium (Colace -) 100 mg PO BID [facility] Last Admin: 11/04/19 09:06 Dose: Not Given Duloxetine HCl (Cymbalta -) 30 mg PO DAILY [facility] Last Admin: 11/04/19 09:07 Dose: 30 mg Gabapentin (Neurontin -) 300 mg PO TID [facility] Last Admin: 11/04/19 13:46 Dose: 300 mg Ceftriaxone Sodium 1 gm/ (Dextrose) 50 mls @ 100 mls/hr IVPB DAILY [facility]; Protocol Last Admin: 11/04/19 09:06 Dose: 100 mls/hr Levothyroxine Sodium (Synthroid -) 75 mcg PO ACBK [facility] Last Admin: 11/04/19 06:56 Dose: 75 mcg Metoclopramide HCl (Reglan -) 10 mg PO BIDAC [facility] Last Admin: 11/04/19 06:56 Dose: 10 mg Metoprolol Succinate (Toprol Xl -) 25 mg PO DAILY [facility] Last Admin: 11/04/19 09:04 Dose: 25 mg Pantoprazole Sodium (Protonix -) 40 mg PO DAILY [facility] Last Admin: 11/04/19 09:07 Dose: 40 mg Sacubitril/Valsartan (Entresto 24 Mg-26 Mg Tablet) 1 tab PO BID [facility] Last Admin: 11/04/19 13:46 Dose: 1 tab - Objective Vital Signs: Vital Signs Temperature 98.1 F 11/04/19 14:33 Pulse Rate 94 H 11/04/19 14:33 Respiratory Rate 20 11/04/19 14:33 Blood Pressure 113/68 11/04/19 14:33 O2 Sat by Pulse Oximetry (%) 97 11/04/19 09:00 Constitutional: Yes: Calm Eyes: Yes: Conjunctiva Clear HENT: Yes: Atraumatic Neck: Yes: Supple Cardiovascular: Yes: S1, S2 Respiratory: Yes: CTA Bilaterally Gastrointestinal: Yes: Soft Genitourinary: Yes: WNL Musculoskeletal: Yes: WNL Edema: No Neurological: Yes: Oriented Psychiatric: Yes: Oriented Labs: CBC, BMP 11/03/19 08:12 11/04/19 06:55 Problem List - Problems (1) Abdominal pain Code(s): R10.9 - UNSPECIFIED ABDOMINAL PAIN (2) MU (acute kidney injury) Code(s): N17.9 - ACUTE KIDNEY FAILURE, UNSPECIFIED Assessment/Plan Current Medications Generic Name Dose Route Start Last Admin Trade Name Freq PRN Reason Stop Dose Admin Albuterol/Ipratropium 1 amp 11/03/19 00:48 Duoneb - NEB RQID PRN SHORTNESS OF BREATH Apixaban 5 mg 11/03/19 10:00 11/04/19 09:03 Eliquis - PO 5 mg BID DOM Administration Atorvastatin Calcium 40 mg 11/03/19 22:00 11/03/19 21:12 Lipitor - PO 40 mg HS DOM Administration Budesonide/Formoterol Fumarate 2 puff 11/03/19 10:00 11/04/19 09:07 Symbicort 160/4.5mcg - IH 2 puff BID DOM Administration Docusate Sodium 100 mg 11/03/19 10:00 11/04/19 09:06 Colace - PO Not Given BID DOM Duloxetine HCl 30 mg 11/03/19 10:00 11/04/19 09:07 Cymbalta - PO 30 mg DAILY DOM Administration Gabapentin 300 mg 11/03/19 06:00 11/04/19 13:46 Neurontin - PO 300 mg TID DOM Administration Ceftriaxone Sodium 1 gm/ 50 mls @ 100 mls/hr 11/03/19 10:00 11/04/19 09:06 Dextrose IVPB 100 mls/hr DAILY DOM Administration Protocol Levothyroxine Sodium 75 mcg 11/03/19 07:00 11/04/19 06:56 Synthroid - PO 75 mcg ACBK DOM Administration Metoclopramide HCl 10 mg 11/03/19 07:00 11/04/19 06:56 Reglan - PO 10 mg BIDAC DOM Administration Metoprolol Succinate 25 mg 11/03/19 10:00 11/04/19 09:04 Toprol Xl - PO 25 mg DAILY DOM Administration Pantoprazole Sodium 40 mg 11/03/19 10:00 11/04/19 09:07 Protonix - PO 40 mg DAILY DOM Administration Sacubitril/Valsartan 1 tab 11/04/19 12:45 11/04/19 13:46 Entresto 24 Mg-26 Mg Tablet PO 1 tab BID DOM Administration Impression 1. ckd 2. abd pain 3. asthma 4. chf 5. obesity 6. hypotension 7. a-fib Plan - renal function improved - ct neg for obstruction - can resume lasix and aldactone - likely overdiuresed with 80 of lasix - cardio input appreciated
[2019-11-04] MEDS: ATORVASTATIN CA 40 MG TABLET (FP) PO SCH (21:47)
--- NOTE | 2019-11-04 23:23 | PN ---
Progress Note, Physician History of Present Illness: No new complaints - Current Medication List Current Medications: Active Medications Albuterol/Ipratropium (Duoneb -) 1 amp NEB RQID PRN PRN Reason: SHORTNESS OF BREATH Apixaban (Eliquis -) 5 mg PO BID [facility] Last Admin: 11/04/19 21:47 Dose: 5 mg Atorvastatin Calcium (Lipitor -) 40 mg PO HS [facility] Last Admin: 11/04/19 21:47 Dose: 40 mg Budesonide/Formoterol Fumarate (Symbicort 160/4.5mcg -) 2 puff IH BID [facility] Last Admin: 11/04/19 21:48 Dose: 2 puff Docusate Sodium (Colace -) 100 mg PO BID [facility] Last Admin: 11/04/19 21:48 Dose: Not Given Duloxetine HCl (Cymbalta -) 30 mg PO DAILY [facility] Last Admin: 11/04/19 09:07 Dose: 30 mg Furosemide (Lasix -) 20 mg PO DAILY [facility] Gabapentin (Neurontin -) 300 mg PO TID [facility] Last Admin: 11/04/19 21:47 Dose: 300 mg Ceftriaxone Sodium 1 gm/ (Dextrose) 50 mls @ 100 mls/hr IVPB DAILY [facility]; Protocol Last Admin: 11/04/19 09:06 Dose: 100 mls/hr Dextrose/Sodium Chloride (D5-1/2ns -) 1,000 mls @ 75 mls/hr IV ASDIR [facility] Insulin Detemir (Levemir Vial) 10 units SQ BID [facility] Levothyroxine Sodium (Synthroid -) 75 mcg PO ACBK [facility] Last Admin: 11/04/19 06:56 Dose: 75 mcg Metformin HCl (Glucophage -) 1,000 mg PO BID@0700,1630 [facility] Metoclopramide HCl (Reglan -) 10 mg PO BIDAC [facility] Last Admin: 11/04/19 17:02 Dose: 10 mg Metoprolol Succinate (Toprol Xl -) 25 mg PO DAILY [facility] Last Admin: 11/04/19 09:04 Dose: 25 mg Pantoprazole Sodium (Protonix -) 40 mg PO DAILY [facility] Last Admin: 11/04/19 09:07 Dose: 40 mg Sacubitril/Valsartan (Entresto 24 Mg-26 Mg Tablet) 1 tab PO BID [facility] Last Admin: 11/04/19 21:48 Dose: 1 tab Spironolactone (Aldactone -) 25 mg PO DAILY DOM - Objective Vital Signs: Vital Signs Temperature 98.3 F 11/04/19 21:56 Pulse Rate 85 11/04/19 21:56 Respiratory Rate 16 11/04/19 21:56 Blood Pressure 106/51 L 11/04/19 21:56 O2 Sat by Pulse Oximetry (%) 97 11/04/19 09:00 Neck: Yes: WNL, Supple Cardiovascular: Yes: WNL, Regular Rate and Rhythm Respiratory: Yes: WNL, Regular, CTA Bilaterally Gastrointestinal: Yes: WNL, Normal Bowel Sounds, Soft, Abdomen, Obese Labs: CBC, BMP 11/03/19 08:12 11/04/19 06:55 Problem List - Problems (1) Chronic systolic CHF (congestive heart failure), NYHA class 3 Assessment/Plan: Pt was given dose of IV lasix However will hold lasix and monitor Code(s): I50.22 - CHRONIC SYSTOLIC (CONGESTIVE) HEART FAILURE (2) CAD (coronary artery disease) Code(s): I25.10 - ATHSCL HEART DISEASE OF [place] CORONARY ARTERY W/O ANG PCTRS (3) COPD (chronic obstructive pulmonary disease) Assessment/Plan: Cont duoneb/symbicort Code(s): J44.9 - CHRONIC OBSTRUCTIVE PULMONARY DISEASE, UNSPECIFIED Qualifiers: COPD type: chronic bronchitis Chronic bronchitis type: unspecified Qualified Code(s): J42 - Unspecified chronic bronchitis (4) Diabetes Assessment/Plan: Cont levemir Cont sliding scale w/ coverage Metformin was dc'ed due to diarrhea Code(s): E11.9 - TYPE 2 DIABETES MELLITUS WITHOUT COMPLICATIONS Qualifiers: Diabetes mellitus type: type 2 (5) Dizziness Assessment/Plan: Monitor I/O's Cardio/renal consults Serial cpk/troponin Code(s): R42 - DIZZINESS AND GIDDINESS (6) Hyperlipidemia Assessment/Plan: Cont lipitor Code(s): E78.5 - HYPERLIPIDEMIA, UNSPECIFIED (7) Hypertension Assessment/Plan: BP stable Cont torpol Code(s): I10 - ESSENTIAL (PRIMARY) HYPERTENSION Qualifiers: Hypertension type: essential hypertension Qualified Code(s): I10 - Essential (primary) hypertension (8) Hypothyroidism Assessment/Plan: Cont levothyroxine Check tsh Code(s): E03.9 - HYPOTHYROIDISM, UNSPECIFIED (9) ICD (implantable cardioverter-defibrillator) in place Code(s): Z95.810 - PRESENCE OF AUTOMATIC (IMPLANTABLE) CARDIAC DEFIBRILLATOR (10) Morbid obesity Code(s): E66.01 - MORBID (SEVERE) OBESITY DUE TO EXCESS CALORIES (11) Paroxysmal A-fib Assessment/Plan: Heart rate controlled Cont eliquis Code(s): I48.0 - PAROXYSMAL ATRIAL FIBRILLATION (12) Sleep apnea Assessment/Plan: Cont cpap Code(s): G47.30 - SLEEP APNEA, UNSPECIFIED (13) Troponin level elevated Assessment/Plan: Due to demand ischemia Code(s): R79.89 - OTHER SPECIFIED ABNORMAL FINDINGS OF BLOOD CHEMISTRY (14) UTI (urinary tract infection) Assessment/Plan: Urine culture was negative for UTI IV ceftriaxone was dc'ed Code(s): N39.0 - URINARY TRACT INFECTION, SITE NOT SPECIFIED Qualifiers: Urinary tract infection type: acute cystitis Hematuria presence: without hematuria Qualified Code(s): N30.00 - Acute cystitis without hematuria
[2019-11-04] MEDS ORDERED: DEXTROSE 5%-0.45% SALINE 1,000 ML IV SCH (23:30)
[2019-11-04] MEDS: INSULIN (LEVEMIR) 100 UNITS/ML UNITS SQ SCH (23:45)
[2019-11-05] MEDS: metFORMIN HCL 500 MG TABLET (FP) PO SCH ×2 (06:17→16:27)
[2019-11-05] MEDS: METOCLOPRAMIDE HCL 10 MG TABLET (FP) PO SCH ×2 (06:18→16:27)
[2019-11-05] MEDS: LEVOTHYROXINE NA 75 MCG TABLET (FP) PO SCH (06:18)
[2019-11-05] MEDS: GABAPENTIN 300 MG CAPSULE (FP) PO SCH ×3 (06:18→21:05)
[2019-11-05 07:28] LABS: BASO % 0.4 % (0-2.0); EOS % 2.2 % (0-4.5); HEMATOCRIT 34.4 % (32.4-45.2); HEMOGLOBIN 11.1 GM/dL (10.7-15.3); LYMPH % 30.5 % (8-40); MCHC 32.2 g/dl (32.0-36.0); MEAN CELL VOLUME 83.8 fl (80-96); MEAN PLT VOLUME 10.4 fl (7.5-11.1); MONO % 9.2 % (3.8-10.2); NEUT % 57.7 % (42.8-82.8); PLATELET COUNT 264 K/MM3 (134-434); RBC 4.11 M/mm3 (3.60-5.2); RDW 15.5 % (11.6-15.6); WHITE BLOOD COUNT 6.9 K/mm3 (4.0-10.0)
[2019-11-05 07:33] LABS: ALBUMIN 3.5 g/dl (3.4-5.0); BILIRUBIN,TOTAL 0.2 mg/dL (0.2-1); BLOOD UREA NITROGEN 15.5 mg/dL (7-18); CALCIUM 9.1 mg/dL (8.5-10.1); CREATININE 1.1 mg/dL (0.55-1.3); POTASSIUM 3.3 mmol/L (3.5-5.1); TOT PROT 6.6 g/dl (6.4-8.2)
--- NOTE | 2019-11-05 09:26 | PN ---
Progress Note, Physician Chief Complaint: feeling much better Less SOB No CP TELE: NSR, Rare PVCs - Current Medication List Current Medications: Active Medications Albuterol/Ipratropium (Duoneb -) 1 amp NEB RQID PRN PRN Reason: SHORTNESS OF BREATH Apixaban (Eliquis -) 5 mg PO BID [facility] Last Admin: 11/04/19 21:47 Dose: 5 mg Atorvastatin Calcium (Lipitor -) 40 mg PO HS [facility] Last Admin: 11/04/19 21:47 Dose: 40 mg Budesonide/Formoterol Fumarate (Symbicort 160/4.5mcg -) 2 puff IH BID [facility] Last Admin: 11/04/19 21:48 Dose: 2 puff Docusate Sodium (Colace -) 100 mg PO BID [facility] Last Admin: 11/04/19 21:48 Dose: Not Given Duloxetine HCl (Cymbalta -) 30 mg PO DAILY [facility] Last Admin: 11/04/19 09:07 Dose: 30 mg Furosemide (Lasix -) 20 mg PO DAILY [facility] Gabapentin (Neurontin -) 300 mg PO TID [facility] Last Admin: 11/05/19 06:18 Dose: 300 mg Ceftriaxone Sodium 1 gm/ (Dextrose) 50 mls @ 100 mls/hr IVPB DAILY [facility]; Protocol Last Admin: 11/04/19 09:06 Dose: 100 mls/hr Dextrose/Sodium Chloride (D5-1/2ns -) 1,000 mls @ 75 mls/hr IV ASDIR [facility] Last Admin: 11/05/19 06:20 Dose: 75 mls/hr Insulin Detemir (Levemir Vial) 10 units SQ BID [facility] Last Admin: 11/04/19 23:45 Dose: Not Given Levothyroxine Sodium (Synthroid -) 75 mcg PO ACBK [facility] Last Admin: 11/05/19 06:18 Dose: 75 mcg Metformin HCl (Glucophage -) 1,000 mg PO BID@0700,1630 [facility] Last Admin: 11/05/19 06:17 Dose: 1,000 mg Metoclopramide HCl (Reglan -) 10 mg PO BIDAC [facility] Last Admin: 11/05/19 06:18 Dose: 10 mg Metoprolol Succinate (Toprol Xl -) 25 mg PO DAILY [facility] Last Admin: 11/04/19 09:04 Dose: 25 mg Pantoprazole Sodium (Protonix -) 40 mg PO DAILY [facility] Last Admin: 11/04/19 09:07 Dose: 40 mg Potassium Chloride (K-Dur -) 40 meq PO DAILY [facility] Sacubitril/Valsartan (Entresto 24 Mg-26 Mg Tablet) 1 tab PO BID [facility] Last Admin: 11/04/19 21:48 Dose: 1 tab Spironolactone (Aldactone -) 25 mg PO DAILY [facility] - Objective Vital Signs: Vital Signs Temperature 98.1 F 11/05/19 06:00 Pulse Rate 92 H 11/05/19 06:00 Respiratory Rate 16 11/05/19 06:00 Blood Pressure 101/69 11/05/19 06:00 O2 Sat by Pulse Oximetry (%) 97 11/04/19 21:00 Constitutional: Yes: No Distress, Calm Cardiovascular: Yes: Regular Rate and Rhythm Respiratory: Yes: CTA Bilaterally Gastrointestinal: Yes: Soft, Abdomen, Obese Edema: No Neurological: Yes: Alert, Oriented ...Motor Strength: WNL Labs: CBC, BMP 11/05/19 06:10 11/05/19 06:10 - ....Imaging EKG: Image Reviewed Assessment/Plan Assessment/Plan Cardiac Catheterization (non-obstructive CAD) echo 05/2019 tds, mildly dilated LV, severe global hypok, RV nl CXR: no congestion or effusion seen EKG: sinus tach, LBBB tele: sinus Dizziness, fatigue: - likely in setting of overdiuresis - lasix increased to 80 mg daily last week - sxs improved with ivfs MU: - likely prerenal, cr improved with ivfs - renal consulted - resumed Lasix at lower dose UTI: - manage per primary Elevated trop: - indeterminate range, flat trend likely in setting of cardiomyopathy, MU ( similar to prior values) - symptoms atypical for ACS, stable EKG - less likely ACS Chronic systolic HF, s/p ICD: - recent RHC/LHC at [facility] reportedly no significant findings - CXR no congestion, appears euvolemic - cont entresto, spironolactone, metoprolol - lasix as above - outpatient ICD monitoring Copd/asthma: - manage per primary HTN: - bp controlled Paroxysmal afib: - in sinus here--cont home bb - cont home eliquis for AC (5 bid) HLD: - cont statin
[2019-11-05] MEDS ORDERED: SPIRONOLACTONE 25 MG TABLET (FP) PO SCH (10:00)
[2019-11-05] MEDS: INSULIN (LEVEMIR) 100 UNITS/ML UNITS SQ SCH ×2 (10:00→21:06)
[2019-11-05] MEDS: POTASSIUM CHLORIDE TABS 20 MEQ TABLET.ER (FP) PO SCH ×2 (10:18→10:28)
[2019-11-05] MEDS ORDERED: PT OWN MED DRAWER 7, Y5N ONE ×2 (10:21→21:01)
[2019-11-05] MEDS ORDERED: cefTRIAXone SODIUM 1 GM VIAL ONE (10:21)
[2019-11-05] MEDS ORDERED: DEXTROSE 5%-WATER - 50 ML IVPB ONE (10:21)
[2019-11-05] MEDS: CEFTRIAXONE 1 GM in DEXTROSE 5%-WATER - 50 ML IVPB SCH (10:27)
[2019-11-05] MEDS: BUDESONIDE/FORMETEROL FUMARATE 160/4.5 mcg INHALER IH SCH ×2 (10:29→21:06)
[2019-11-05] MEDS: FUROSEMIDE 20 MG TABLET (FP) PO SCH (10:29)
[2019-11-05] MEDS: metoPROLOL SUCCINATE 25 MG TAB.SR.24H (FP) PO SCH (10:29)
[2019-11-05] MEDS: PANTOPRAZOLE 40 MG TABLET (FP) PO SCH (10:29)
[2019-11-05] MEDS: DOCUSATE SODIUM 100 MG CAPSULE (FP) PO SCH ×2 (10:29→21:05)
[2019-11-05] MEDS: DULoxetine HCL 30 MG CAPSULE.DR PO SCH (10:29)
[2019-11-05] MEDS: APIXABAN 5 MG TABLET PO SCH ×2 (10:29→21:05)
[2019-11-05] MEDS: SACUBITRIL/VALSARTAN 24 MG-26 MG TABLET PO SCH ×2 (10:30→21:05)
--- NOTE | 2019-11-05 13:37 | PN ---
Progress Note, Physician History of Present Illness: Pt seen and examined at bedside. She is awake and alert. She denies shortness of breath. - Current Medication List Current Medications: Active Medications Albuterol/Ipratropium (Duoneb -) 1 amp NEB RQID PRN PRN Reason: SHORTNESS OF BREATH Apixaban (Eliquis -) 5 mg PO BID [facility] Last Admin: 11/05/19 10:29 Dose: 5 mg Atorvastatin Calcium (Lipitor -) 40 mg PO HS [facility] Last Admin: 11/04/19 21:47 Dose: 40 mg Budesonide/Formoterol Fumarate (Symbicort 160/4.5mcg -) 2 puff IH BID [facility] Last Admin: 11/05/19 10:29 Dose: 2 puff Docusate Sodium (Colace -) 100 mg PO BID [facility] Last Admin: 11/05/19 10:29 Dose: 100 mg Duloxetine HCl (Cymbalta -) 30 mg PO DAILY [facility] Last Admin: 11/05/19 10:29 Dose: 30 mg Furosemide (Lasix -) 20 mg PO DAILY [facility] Last Admin: 11/05/19 10:29 Dose: 20 mg Gabapentin (Neurontin -) 300 mg PO TID [facility] Last Admin: 11/05/19 06:18 Dose: 300 mg Ceftriaxone Sodium 1 gm/ (Dextrose) 50 mls @ 100 mls/hr IVPB DAILY [facility]; Protocol Last Admin: 11/05/19 10:27 Dose: 100 mls/hr Dextrose/Sodium Chloride (D5-1/2ns -) 1,000 mls @ 75 mls/hr IV ASDIR [facility] Last Admin: 11/05/19 06:20 Dose: 75 mls/hr Insulin Detemir (Levemir Vial) 10 units SQ BID [facility] Last Admin: 11/05/19 10:00 Dose: Not Given Levothyroxine Sodium (Synthroid -) 75 mcg PO ACBK [facility] Last Admin: 11/05/19 06:18 Dose: 75 mcg Metformin HCl (Glucophage -) 1,000 mg PO BID@0700,1630 [facility] Last Admin: 11/05/19 06:17 Dose: 1,000 mg Metoclopramide HCl (Reglan -) 10 mg PO BIDAC [facility] Last Admin: 11/05/19 06:18 Dose: 10 mg Metoprolol Succinate (Toprol Xl -) 25 mg PO DAILY [facility] Last Admin: 11/05/19 10:29 Dose: 25 mg Pantoprazole Sodium (Protonix -) 40 mg PO DAILY [facility] Last Admin: 11/05/19 10:29 Dose: 40 mg Potassium Chloride (K-Dur -) 40 meq PO DAILY [facility] Last Admin: 11/05/19 10:28 Dose: 40 meq Sacubitril/Valsartan (Entresto 24 Mg-26 Mg Tablet) 1 tab PO BID [facility] Last Admin: 11/05/19 10:30 Dose: 1 tab Spironolactone (Aldactone -) 25 mg PO DAILY [facility] Last Admin: 11/05/19 10:29 Dose: 25 mg - Objective Vital Signs: Vital Signs Temperature 97.8 F 11/05/19 10:25 Pulse Rate 90 11/05/19 10:25 Respiratory Rate 20 11/05/19 10:25 Blood Pressure 112/60 11/05/19 10:25 O2 Sat by Pulse Oximetry (%) 97 11/04/19 21:00 Constitutional: Yes: Calm Eyes: Yes: Conjunctiva Clear HENT: Yes: Atraumatic Neck: Yes: Supple Cardiovascular: Yes: S1, S2 Respiratory: Yes: CTA Bilaterally Gastrointestinal: Yes: Soft Genitourinary: Yes: WNL Musculoskeletal: Yes: WNL Edema: No Neurological: Yes: Oriented Psychiatric: Yes: Oriented Labs: CBC, BMP 11/05/19 06:10 11/05/19 06:10 Problem List - Problems (1) Abdominal pain Code(s): R10.9 - UNSPECIFIED ABDOMINAL PAIN (2) MU (acute kidney injury) Code(s): N17.9 - ACUTE KIDNEY FAILURE, UNSPECIFIED Assessment/Plan Current Medications Generic Name Dose Route Start Last Admin Trade Name Freq PRN Reason Stop Dose Admin Albuterol/Ipratropium 1 amp 11/03/19 00:48 Duoneb - NEB RQID PRN SHORTNESS OF BREATH Apixaban 5 mg 11/03/19 10:00 11/05/19 10:29 Eliquis - PO 5 mg BID [facility] Administration Atorvastatin Calcium 40 mg 11/03/19 22:00 11/04/19 21:47 Lipitor - PO 40 mg HS [facility] Administration Budesonide/Formoterol Fumarate 2 puff 11/03/19 10:00 11/05/19 10:29 Symbicort 160/4.5mcg - IH 2 puff BID [facility] Administration Docusate Sodium 100 mg 11/03/19 10:00 11/05/19 10:29 Colace - PO 100 mg BID [facility] Administration Duloxetine HCl 30 mg 11/03/19 10:00 11/05/19 10:29 Cymbalta - PO 30 mg DAILY [facility] Administration Furosemide 20 mg 11/05/19 10:00 11/05/19 10:29 Lasix - PO 20 mg DAILY [facility] Administration Gabapentin 300 mg 11/03/19 06:00 11/05/19 06:18 Neurontin - PO 300 mg TID [facility] Administration Ceftriaxone Sodium 1 gm/ 50 mls @ 100 mls/hr 11/03/19 10:00 11/05/19 10:27 Dextrose IVPB 100 mls/hr DAILY [facility] Administration Protocol Dextrose/Sodium Chloride 1,000 mls @ 75 mls/hr 11/04/19 23:30 11/05/19 06:20 D5-1/2ns - IV 75 mls/hr ASDIR [facility] Administration Insulin Detemir 10 units 11/04/19 23:30 11/05/19 10:00 Levemir Vial SQ Not Given BID [facility] Levothyroxine Sodium 75 mcg 11/03/19 07:00 11/05/19 06:18 Synthroid - PO 75 mcg ACBK [facility] Administration Metformin HCl 1,000 mg 11/05/19 07:00 11/05/19 06:17 Glucophage - PO 1,000 mg BID@0700,1630 [facility] Administration Metoclopramide HCl 10 mg 11/03/19 07:00 11/05/19 06:18 Reglan - PO 10 mg BIDAC [facility] Administration Metoprolol Succinate 25 mg 11/03/19 10:00 11/05/19 10:29 Toprol Xl - PO 25 mg DAILY [facility] Administration Pantoprazole Sodium 40 mg 11/03/19 10:00 11/05/19 10:29 Protonix - PO 40 mg DAILY [facility] Administration Potassium Chloride 40 meq 11/05/19 07:45 11/05/19 10:28 K-Dur - PO 40 meq DAILY [facility] Administration Sacubitril/Valsartan 1 tab 11/04/19 12:45 11/05/19 10:30 Entresto 24 Mg-26 Mg Tablet PO 1 tab BID [facility] Administration Spironolactone 25 mg 11/05/19 10:00 11/05/19 10:29 Aldactone - PO 25 mg DAILY [facility] Administration Impression 1. ckd 2. abd pain 3. asthma 4. chf 5. obesity 6. hypotension 7. a-fib Plan - cont lasix and aldactone - replace potassium - stop fluids - likely overdiuresed with 80 of lasix - cardio input appreciated
[2019-11-05] MEDS ORDERED: POTASSIUM CHLORIDE TABS 20 MEQ TABLET.ER (FP) PO ONE (14:39)
[2019-11-05] MEDS: ACETAMINOPHEN 325 MG TABLET (FP) PO PRN (18:58)
[2019-11-05] MEDS: ATORVASTATIN CA 40 MG TABLET (FP) PO SCH (21:05)
--- NOTE | 2019-11-05 22:21 | PN ---
Progress Note, Physician History of Present Illness: No new complaints - Current Medication List Current Medications: Active Medications Acetaminophen (Tylenol -) 650 mg PO Q6H PRN PRN Reason: PAIN LEVEL 1-5 Last Admin: 11/05/19 18:58 Dose: 650 mg Albuterol/Ipratropium (Duoneb -) 1 amp NEB RQID PRN PRN Reason: SHORTNESS OF BREATH Apixaban (Eliquis -) 5 mg PO BID [facility] Last Admin: 11/05/19 21:05 Dose: 5 mg Atorvastatin Calcium (Lipitor -) 40 mg PO HS [facility] Last Admin: 11/05/19 21:05 Dose: 40 mg Budesonide/Formoterol Fumarate (Symbicort 160/4.5mcg -) 2 puff IH BID [facility] Last Admin: 11/05/19 21:06 Dose: 2 puff Docusate Sodium (Colace -) 100 mg PO BID [facility] Last Admin: 11/05/19 21:05 Dose: Not Given Duloxetine HCl (Cymbalta -) 30 mg PO DAILY [facility] Last Admin: 11/05/19 10:29 Dose: 30 mg Furosemide (Lasix -) 20 mg PO DAILY [facility] Last Admin: 11/05/19 10:29 Dose: 20 mg Gabapentin (Neurontin -) 300 mg PO TID [facility] Last Admin: 11/05/19 21:05 Dose: 300 mg Insulin Detemir (Levemir Vial) 10 units SQ HS [facility] Last Admin: 11/05/19 21:06 Dose: 10 units Levothyroxine Sodium (Synthroid -) 75 mcg PO ACBK [facility] Last Admin: 11/05/19 06:18 Dose: 75 mcg Metformin HCl (Glucophage -) 1,000 mg PO BID@0700,1630 [facility] Last Admin: 11/05/19 16:27 Dose: 1,000 mg Metoclopramide HCl (Reglan -) 10 mg PO BIDAC [facility] Last Admin: 11/05/19 16:27 Dose: 10 mg Metoprolol Succinate (Toprol Xl -) 25 mg PO DAILY [facility] Last Admin: 11/05/19 10:29 Dose: 25 mg Pantoprazole Sodium (Protonix -) 40 mg PO DAILY [facility] Last Admin: 11/05/19 10:29 Dose: 40 mg Sacubitril/Valsartan (Entresto 24 Mg-26 Mg Tablet) 1 tab PO BID [facility] Last Admin: 11/05/19 21:05 Dose: 1 tab Spironolactone (Aldactone -) 50 mg PO DAILY [facility] - Objective Vital Signs: Vital Signs Temperature 98.0 F 11/05/19 20:47 Pulse Rate 89 11/05/19 20:47 Respiratory Rate 20 11/05/19 20:47 Blood Pressure 118/78 11/05/19 20:47 O2 Sat by Pulse Oximetry (%) 93 L 11/05/19 20:47 Cardiovascular: Yes: WNL, Regular Rate and Rhythm Respiratory: Yes: WNL, Regular, CTA Bilaterally Gastrointestinal: Yes: WNL, Normal Bowel Sounds, Soft, Abdomen, Obese Labs: CBC, BMP 11/05/19 06:10 11/05/19 06:10 Problem List - Problems (1) Chronic systolic CHF (congestive heart failure), NYHA class 3 Assessment/Plan: Cont lasix/entresto/spironolactone Code(s): I50.22 - CHRONIC SYSTOLIC (CONGESTIVE) HEART FAILURE (2) Abdominal pain Assessment/Plan: ct scan abd did not show any acute pathology Code(s): R10.9 - UNSPECIFIED ABDOMINAL PAIN Qualifiers: Abdominal location: unspecified location Qualified Code(s): R10.9 - Unspecified abdominal pain (3) CAD (coronary artery disease) Code(s): I25.10 - ATHSCL HEART DISEASE OF [place] CORONARY ARTERY W/O ANG PCTRS (4) COPD (chronic obstructive pulmonary disease) Assessment/Plan: Cont duoneb/symbicort Code(s): J44.9 - CHRONIC OBSTRUCTIVE PULMONARY DISEASE, UNSPECIFIED Qualifiers: COPD type: chronic bronchitis Chronic bronchitis type: unspecified Qualified Code(s): J42 - Unspecified chronic bronchitis (5) Diabetes Assessment/Plan: Cont levemir Cont sliding scale w/ coverage Metformin was dc'ed due to diarrhea Code(s): E11.9 - TYPE 2 DIABETES MELLITUS WITHOUT COMPLICATIONS Qualifiers: Diabetes mellitus type: type 2 (6) Dizziness Assessment/Plan: Monitor I/O's Due to overdiuresis Pt is now euvolumic Code(s): R42 - DIZZINESS AND GIDDINESS (7) Hyperlipidemia Assessment/Plan: Cont lipitor Code(s): E78.5 - HYPERLIPIDEMIA, UNSPECIFIED (8) Hypertension Assessment/Plan: BP stable Cont torpol Code(s): I10 - ESSENTIAL (PRIMARY) HYPERTENSION Qualifiers: Hypertension type: essential hypertension Qualified Code(s): I10 - Essential (primary) hypertension (9) Hypothyroidism Assessment/Plan: Cont levothyroxine Check tsh Code(s): E03.9 - HYPOTHYROIDISM, UNSPECIFIED (10) ICD (implantable cardioverter-defibrillator) in place Code(s): Z95.810 - PRESENCE OF AUTOMATIC (IMPLANTABLE) CARDIAC DEFIBRILLATOR (11) Paroxysmal A-fib Assessment/Plan: Heart rate controlled Cont eliquis Code(s): I48.0 - PAROXYSMAL ATRIAL FIBRILLATION (12) Sleep apnea Assessment/Plan: Cont cpap Code(s): G47.30 - SLEEP APNEA, UNSPECIFIED (13) Troponin level elevated Code(s): R79.89 - OTHER SPECIFIED ABNORMAL FINDINGS OF BLOOD CHEMISTRY (14) UTI (urinary tract infection) Code(s): N39.0 - URINARY TRACT INFECTION, SITE NOT SPECIFIED Qualifiers: Urinary tract infection type: acute cystitis Hematuria presence: without hematuria Qualified Code(s): N30.00 - Acute cystitis without hematuria
[2019-11-06] MEDS: metFORMIN HCL 500 MG TABLET (FP) PO SCH ×2 (06:48→16:35)
[2019-11-06] MEDS: METOCLOPRAMIDE HCL 10 MG TABLET (FP) PO SCH ×2 (06:48→16:36)
[2019-11-06] MEDS: LEVOTHYROXINE NA 75 MCG TABLET (FP) PO SCH (06:48)
[2019-11-06] MEDS: GABAPENTIN 300 MG CAPSULE (FP) PO SCH ×3 (06:48→21:41)
[2019-11-06 08:25] LABS: ALBUMIN 3.3 g/dl (3.4-5.0); BILIRUBIN,TOTAL 0.2 mg/dL (0.2-1); BLOOD UREA NITROGEN 15.8 mg/dL (7-18); CALCIUM 9.4 mg/dL (8.5-10.1); CREATININE 1.2 mg/dL (0.55-1.3); MAGNESIUM 1.7 mg/dL (1.8-2.4); POTASSIUM 3.8 mmol/L (3.5-5.1); TOT PROT 6.7 g/dl (6.4-8.2)
--- NOTE | 2019-11-06 09:16 | PN ---
Progress Note, Physician Chief Complaint: feeling better No CP/SOB/no palps TELE: NSR, PVCs, NSVT - Current Medication List Current Medications: Active Medications Acetaminophen (Tylenol -) 650 mg PO Q6H PRN PRN Reason: PAIN LEVEL 1-5 Last Admin: 11/05/19 18:58 Dose: 650 mg Albuterol/Ipratropium (Duoneb -) 1 amp NEB RQID PRN PRN Reason: SHORTNESS OF BREATH Apixaban (Eliquis -) 5 mg PO BID [facility] Last Admin: 11/05/19 21:05 Dose: 5 mg Atorvastatin Calcium (Lipitor -) 40 mg PO HS [facility] Last Admin: 11/05/19 21:05 Dose: 40 mg Budesonide/Formoterol Fumarate (Symbicort 160/4.5mcg -) 2 puff IH BID [facility] Last Admin: 11/05/19 21:06 Dose: 2 puff Docusate Sodium (Colace -) 100 mg PO BID [facility] Last Admin: 11/05/19 21:05 Dose: Not Given Duloxetine HCl (Cymbalta -) 30 mg PO DAILY [facility] Last Admin: 11/05/19 10:29 Dose: 30 mg Furosemide (Lasix -) 20 mg PO DAILY [facility] Last Admin: 11/05/19 10:29 Dose: 20 mg Gabapentin (Neurontin -) 300 mg PO TID [facility] Last Admin: 11/06/19 06:48 Dose: 300 mg Insulin Detemir (Levemir Vial) 10 units SQ HS [facility] Last Admin: 11/05/19 21:06 Dose: 10 units Levothyroxine Sodium (Synthroid -) 75 mcg PO ACBK [facility] Last Admin: 11/06/19 06:48 Dose: 75 mcg Metformin HCl (Glucophage -) 1,000 mg PO BID@0700,1630 [facility] Last Admin: 11/06/19 06:48 Dose: 1,000 mg Metoclopramide HCl (Reglan -) 10 mg PO BIDAC [facility] Last Admin: 11/06/19 06:48 Dose: 10 mg Metoprolol Succinate (Toprol Xl -) 25 mg PO DAILY [facility] Last Admin: 11/05/19 10:29 Dose: 25 mg Pantoprazole Sodium (Protonix -) 40 mg PO DAILY [facility] Last Admin: 11/05/19 10:29 Dose: 40 mg Sacubitril/Valsartan (Entresto 24 Mg-26 Mg Tablet) 1 tab PO BID [facility] Last Admin: 11/05/19 21:05 Dose: 1 tab Spironolactone (Aldactone -) 50 mg PO DAILY [facility] - Objective Vital Signs: Vital Signs Temperature 98.5 F 11/06/19 06:00 Pulse Rate 86 11/06/19 06:00 Respiratory Rate 20 11/06/19 06:00 Blood Pressure 117/77 11/06/19 06:00 O2 Sat by Pulse Oximetry (%) 98 11/06/19 08:12 Constitutional: Yes: No Distress Cardiovascular: Yes: Regular Rate and Rhythm Respiratory: Yes: CTA Bilaterally (no rales) Gastrointestinal: Yes: Soft Edema: No Neurological: Yes: Alert, Oriented ...Motor Strength: WNL Labs: CBC, BMP 11/05/19 06:10 11/06/19 06:55 - ....Imaging EKG: Image Reviewed Assessment/Plan Assessment/Plan Cardiac Catheterization (non-obstructive CAD) echo 05/2019 tds, mildly dilated LV, severe global hypok, RV nl CXR: no congestion or effusion seen EKG: sinus tach, LBBB tele: sinus Dizziness, fatigue: - likely in setting of overdiuresis - lasix increased to 80 mg daily last week - sxs improved with ivfs -Now back on low dose PO Lasix MU: - likely prerenal, cr improved with ivfs - renal consulted - resumed Lasix at lower dose UTI: - manage per primary Elevated trop: - indeterminate range, flat trend likely in setting of cardiomyopathy, MU ( similar to prior values) - symptoms atypical for ACS, stable EKG - less likely ACS Chronic systolic HF, s/p ICD: Euvolemic - recent RHC/LHC at [facility] reportedly no significant findings - CXR no congestion, appears euvolemic - cont entresto, spironolactone, metoprolol - lasix as above - outpatient ICD monitoring -D/C tele Copd/asthma: - manage per primary HTN: - bp controlled Paroxysmal afib: - in sinus here--cont home bb - cont home eliquis for AC (5 bid) HLD: - cont statin
[2019-11-06] MEDS ORDERED: PT OWN MED DRAWER 7, Y5N ONE ×2 (09:30→21:33)
[2019-11-06] MEDS: metoPROLOL SUCCINATE 25 MG TAB.SR.24H (FP) PO SCH (09:31)
[2019-11-06] MEDS: DULoxetine HCL 30 MG CAPSULE.DR PO SCH (09:31)
[2019-11-06] MEDS: FUROSEMIDE 20 MG TABLET (FP) PO SCH (09:32)
[2019-11-06] MEDS: APIXABAN 5 MG TABLET PO SCH ×2 (09:32→21:41)
[2019-11-06] MEDS: DOCUSATE SODIUM 100 MG CAPSULE (FP) PO SCH ×2 (09:32→21:27)
[2019-11-06] MEDS: SPIRONOLACTONE 25 MG TABLET (FP) PO SCH (09:32)
[2019-11-06] MEDS: PANTOPRAZOLE 40 MG TABLET (FP) PO SCH (09:32)
[2019-11-06] MEDS: SACUBITRIL/VALSARTAN 24 MG-26 MG TABLET PO SCH ×2 (09:32→21:41)
[2019-11-06] MEDS: BUDESONIDE/FORMETEROL FUMARATE 160/4.5 mcg INHALER IH SCH ×2 (09:33→21:41)
[2019-11-06] MEDS ORDERED: MAGNESIUM OXIDE 400 MG TABLET (FP) PO ONE (13:30)
--- NOTE | 2019-11-06 19:56 | PN ---
Progress Note, Physician History of Present Illness: No new complaints - Current Medication List Current Medications: Active Medications Acetaminophen (Tylenol -) 650 mg PO Q6H PRN PRN Reason: PAIN LEVEL 1-5 Last Admin: 11/05/19 18:58 Dose: 650 mg Albuterol/Ipratropium (Duoneb -) 1 amp NEB RQID PRN PRN Reason: SHORTNESS OF BREATH Apixaban (Eliquis -) 5 mg PO BID [facility] Last Admin: 11/06/19 09:32 Dose: 5 mg Atorvastatin Calcium (Lipitor -) 40 mg PO HS [facility] Last Admin: 11/05/19 21:05 Dose: 40 mg Budesonide/Formoterol Fumarate (Symbicort 160/4.5mcg -) 2 puff IH BID [facility] Last Admin: 11/06/19 09:33 Dose: 2 puff Docusate Sodium (Colace -) 100 mg PO BID [facility] Last Admin: 11/06/19 09:32 Dose: Not Given Duloxetine HCl (Cymbalta -) 30 mg PO DAILY [facility] Last Admin: 11/06/19 09:31 Dose: 30 mg Furosemide (Lasix -) 20 mg PO DAILY [facility] Last Admin: 11/06/19 09:32 Dose: 20 mg Gabapentin (Neurontin -) 300 mg PO TID [facility] Last Admin: 11/06/19 13:15 Dose: 300 mg Insulin Detemir (Levemir Vial) 10 units SQ HS [facility] Last Admin: 11/05/19 21:06 Dose: 10 units Levothyroxine Sodium (Synthroid -) 75 mcg PO ACBK [facility] Last Admin: 11/06/19 06:48 Dose: 75 mcg Metformin HCl (Glucophage -) 1,000 mg PO BID@0700,1630 [facility] Last Admin: 11/06/19 16:35 Dose: 1,000 mg Metoclopramide HCl (Reglan -) 10 mg PO BIDAC [facility] Last Admin: 11/06/19 16:36 Dose: 10 mg Metoprolol Succinate (Toprol Xl -) 25 mg PO DAILY [facility] Last Admin: 11/06/19 09:31 Dose: 25 mg Pantoprazole Sodium (Protonix -) 40 mg PO DAILY [facility] Last Admin: 11/06/19 09:32 Dose: 40 mg Sacubitril/Valsartan (Entresto 24 Mg-26 Mg Tablet) 1 tab PO BID [facility] Last Admin: 11/06/19 09:32 Dose: 1 tab Spironolactone (Aldactone -) 50 mg PO DAILY [facility] Last Admin: 11/06/19 09:32 Dose: 50 mg - Objective Vital Signs: Vital Signs Temperature 97.6 F 11/06/19 18:00 Pulse Rate 83 11/06/19 18:00 Respiratory Rate 20 11/06/19 18:00 Blood Pressure 103/55 L 11/06/19 18:00 O2 Sat by Pulse Oximetry (%) 98 11/06/19 15:59 Constitutional: Yes: Obese Neck: Yes: WNL, Supple Cardiovascular: Yes: WNL, Regular Rate and Rhythm Respiratory: Yes: WNL, Regular, CTA Bilaterally Gastrointestinal: Yes: WNL, Normal Bowel Sounds, Soft, Abdomen, Obese Edema: No Labs: CBC, BMP 11/05/19 06:10 11/06/19 06:55 Problem List - Problems (1) Abdominal pain Code(s): R10.9 - UNSPECIFIED ABDOMINAL PAIN Qualifiers: Abdominal location: unspecified location Qualified Code(s): R10.9 - Unspecified abdominal pain (2) CAD (coronary artery disease) Code(s): I25.10 - ATHSCL HEART DISEASE OF [place] CORONARY ARTERY W/O ANG PCTRS (3) COPD (chronic obstructive pulmonary disease) Code(s): J44.9 - CHRONIC OBSTRUCTIVE PULMONARY DISEASE, UNSPECIFIED Qualifiers: COPD type: chronic bronchitis Chronic bronchitis type: unspecified Qualified Code(s): J42 - Unspecified chronic bronchitis (4) Chronic systolic CHF (congestive heart failure), NYHA class 3 Code(s): I50.22 - CHRONIC SYSTOLIC (CONGESTIVE) HEART FAILURE (5) Diabetes Code(s): E11.9 - TYPE 2 DIABETES MELLITUS WITHOUT COMPLICATIONS Qualifiers: Diabetes mellitus type: type 2 (6) Dizziness Code(s): R42 - DIZZINESS AND GIDDINESS (7) Hyperlipidemia Code(s): E78.5 - HYPERLIPIDEMIA, UNSPECIFIED (8) Hypertension Code(s): I10 - ESSENTIAL (PRIMARY) HYPERTENSION Qualifiers: Hypertension type: essential hypertension Qualified Code(s): I10 - Essential (primary) hypertension (9) Hypothyroidism Code(s): E03.9 - HYPOTHYROIDISM, UNSPECIFIED (10) ICD (implantable cardioverter-defibrillator) in place Code(s): Z95.810 - PRESENCE OF AUTOMATIC (IMPLANTABLE) CARDIAC DEFIBRILLATOR (11) Morbid obesity Code(s): E66.01 - MORBID (SEVERE) OBESITY DUE TO EXCESS CALORIES (12) Paroxysmal A-fib Code(s): I48.0 - PAROXYSMAL ATRIAL FIBRILLATION (13) Sleep apnea Code(s): G47.30 - SLEEP APNEA, UNSPECIFIED (14) Troponin level elevated Code(s): R79.89 - OTHER SPECIFIED ABNORMAL FINDINGS OF BLOOD CHEMISTRY (15) UTI (urinary tract infection) Code(s): N39.0 - URINARY TRACT INFECTION, SITE NOT SPECIFIED Qualifiers: Urinary tract infection type: acute cystitis Hematuria presence: without hematuria Qualified Code(s): N30.00 - Acute cystitis without hematuria
[2019-11-06] MEDS: INSULIN (LEVEMIR) 100 UNITS/ML UNITS SQ SCH (21:40)
[2019-11-06] MEDS: ATORVASTATIN CA 40 MG TABLET (FP) PO SCH (21:41)
[2019-11-07 06:29] LABS: BASO % 1.1 % (0-2.0); EOS % 1.9 % (0-4.5); HEMATOCRIT 32.8 % (32.4-45.2); HEMOGLOBIN 10.5 GM/dL (10.7-15.3); LYMPH % 34.9 % (8-40); MCH 26.8 pg (25.7-33.7); MCHC 32.1 g/dl (32.0-36.0); MEAN CELL VOLUME 83.5 fl (80-96); MEAN PLT VOLUME 9.9 fl (7.5-11.1); NEUT % 54.1 % (42.8-82.8); PLATELET COUNT 242 K/MM3 (134-434); RBC 3.92 M/mm3 (3.60-5.2); RDW 15.6 % (11.6-15.6); WHITE BLOOD COUNT 7.2 K/mm3 (4.0-10.0)
[2019-11-07] MEDS: LEVOTHYROXINE NA 75 MCG TABLET (FP) PO SCH (06:52)
[2019-11-07] MEDS: GABAPENTIN 300 MG CAPSULE (FP) PO SCH ×3 (06:52→21:25)
[2019-11-07] MEDS: METOCLOPRAMIDE HCL 10 MG TABLET (FP) PO SCH ×2 (06:52→17:15)
[2019-11-07 06:58] LABS: ALBUMIN 3.1 g/dl (3.4-5.0); BILIRUBIN,TOTAL 0.2 mg/dL (0.2-1); BLOOD UREA NITROGEN 13.2 mg/dL (7-18); CALCIUM 8.7 mg/dL (8.5-10.1); POTASSIUM 3.4 mmol/L (3.5-5.1); TOT PROT 6.1 g/dl (6.4-8.2)
[2019-11-07] MEDS ORDERED: PT OWN MED DRAWER 7, Y5N ONE ×2 (09:03→21:19)
[2019-11-07] MEDS: DULoxetine HCL 30 MG CAPSULE.DR PO SCH (09:25)
[2019-11-07] MEDS: PANTOPRAZOLE 40 MG TABLET (FP) PO SCH (09:25)
[2019-11-07] MEDS: APIXABAN 5 MG TABLET PO SCH ×2 (09:26→21:25)
[2019-11-07] MEDS: metoPROLOL SUCCINATE 25 MG TAB.SR.24H (FP) PO SCH (09:26)
[2019-11-07] MEDS: FUROSEMIDE 20 MG TABLET (FP) PO SCH (09:26)
[2019-11-07] MEDS: SPIRONOLACTONE 25 MG TABLET (FP) PO SCH (09:26)
[2019-11-07] MEDS: SACUBITRIL/VALSARTAN 24 MG-26 MG TABLET PO SCH ×2 (09:26→21:26)
[2019-11-07] MEDS: BUDESONIDE/FORMETEROL FUMARATE 160/4.5 mcg INHALER IH SCH ×2 (09:27→21:26)
--- NOTE | 2019-11-07 10:13 | PN ---
Progress Note, Physician Chief Complaint: no CP/ SOB/Palps TELE: OFF since yest - Current Medication List Current Medications: Active Medications Acetaminophen (Tylenol -) 650 mg PO Q6H PRN PRN Reason: PAIN LEVEL 1-5 Last Admin: 11/05/19 18:58 Dose: 650 mg Albuterol/Ipratropium (Duoneb -) 1 amp NEB RQID PRN PRN Reason: SHORTNESS OF BREATH Apixaban (Eliquis -) 5 mg PO BID [facility] Last Admin: 11/07/19 09:26 Dose: 5 mg Atorvastatin Calcium (Lipitor -) 40 mg PO HS [facility] Last Admin: 11/06/19 21:41 Dose: 40 mg Budesonide/Formoterol Fumarate (Symbicort 160/4.5mcg -) 2 puff IH BID [facility] Last Admin: 11/07/19 09:27 Dose: 2 puff Duloxetine HCl (Cymbalta -) 30 mg PO DAILY [facility] Last Admin: 11/07/19 09:25 Dose: 30 mg Furosemide (Lasix -) 20 mg PO DAILY [facility] Last Admin: 11/07/19 09:26 Dose: 20 mg Gabapentin (Neurontin -) 300 mg PO TID [facility] Last Admin: 11/07/19 06:52 Dose: 300 mg Insulin Detemir (Levemir Vial) 10 units SQ HS [facility] Last Admin: 11/06/19 21:40 Dose: 10 units Levothyroxine Sodium (Synthroid -) 75 mcg PO ACBK [facility] Last Admin: 11/07/19 06:52 Dose: 75 mcg Metoclopramide HCl (Reglan -) 10 mg PO BIDAC [facility] Last Admin: 11/07/19 06:52 Dose: 10 mg Metoprolol Succinate (Toprol Xl -) 25 mg PO DAILY [facility] Last Admin: 11/07/19 09:26 Dose: 25 mg Pantoprazole Sodium (Protonix -) 40 mg PO DAILY [facility] Last Admin: 11/07/19 09:25 Dose: 40 mg Sacubitril/Valsartan (Entresto 24 Mg-26 Mg Tablet) 1 tab PO BID [facility] Last Admin: 11/07/19 09:26 Dose: 1 tab Spironolactone (Aldactone -) 50 mg PO DAILY [facility] Last Admin: 11/07/19 09:26 Dose: 50 mg - Objective Vital Signs: Vital Signs Temperature 98.1 F 11/07/19 09:21 Pulse Rate 82 11/07/19 09:21 Respiratory Rate 18 11/07/19 09:21 Blood Pressure 114/76 11/07/19 09:21 O2 Sat by Pulse Oximetry (%) 98 11/07/19 07:54 Constitutional: Yes: No Distress, Calm Cardiovascular: Yes: Regular Rate and Rhythm Respiratory: Yes: CTA Bilaterally (no rales) Gastrointestinal: Yes: Soft, Abdomen, Obese Edema: No Neurological: Yes: Alert, Oriented Labs: CBC, BMP 11/07/19 06:00 11/07/19 06:00 - ....Imaging EKG: Image Reviewed Assessment/Plan Assessment/Plan Cardiac Catheterization (non-obstructive CAD) echo 05/2019 tds, mildly dilated LV, severe global hypok, RV nl CXR: no congestion or effusion seen EKG: sinus tach, LBBB tele: sinus Dizziness, fatigue: - likely in setting of overdiuresis - lasix increased to 80 mg daily last week - sxs improved with ivfs -Now back on low dose PO Lasix MU: - likely prerenal, cr improved with ivfs - renal consulted - resumed Lasix at lower dose UTI: - manage per primary Elevated trop: - indeterminate range, flat trend likely in setting of cardiomyopathy, MU ( similar to prior values) - symptoms atypical for ACS, stable EKG - less likely ACS Chronic systolic HF, s/p ICD: Euvolemic - recent RHC/LHC at [facility] reportedly no significant findings - CXR no congestion, appears euvolemic - cont entresto, spironolactone, metoprolol; Spironolactone should help with hypokalemia- electrolytes need to be closely monitored as outpt - lasix as above - outpatient ICD monitoring -Tele d/c 11/06 Copd/asthma: - manage per primary HTN: - bp controlled Paroxysmal afib: - in sinus here--cont home bb - cont home eliquis for AC (5 bid) HLD: - cont statin
[2019-11-07] MEDS ORDERED: POTASSIUM CHLORIDE TABS 20 MEQ TABLET.ER (FP) PO ONE (16:21)
--- NOTE | 2019-11-07 18:36 | PN ---
Progress Note, Physician History of Present Illness: Pt having diarrhea still About 10 episodes of diarrhea Stool are more watery - Current Medication List Current Medications: Active Medications Acetaminophen (Tylenol -) 650 mg PO Q6H PRN PRN Reason: PAIN LEVEL 1-5 Last Admin: 11/05/19 18:58 Dose: 650 mg Albuterol/Ipratropium (Duoneb -) 1 amp NEB RQID PRN PRN Reason: SHORTNESS OF BREATH Apixaban (Eliquis -) 5 mg PO BID [facility] Last Admin: 11/07/19 09:26 Dose: 5 mg Atorvastatin Calcium (Lipitor -) 40 mg PO HS [facility] Last Admin: 11/06/19 21:41 Dose: 40 mg Budesonide/Formoterol Fumarate (Symbicort 160/4.5mcg -) 2 puff IH BID [facility] Last Admin: 11/07/19 09:27 Dose: 2 puff Duloxetine HCl (Cymbalta -) 30 mg PO DAILY [facility] Last Admin: 11/07/19 09:25 Dose: 30 mg Furosemide (Lasix -) 20 mg PO DAILY [facility] Last Admin: 11/07/19 09:26 Dose: 20 mg Gabapentin (Neurontin -) 300 mg PO TID [facility] Last Admin: 11/07/19 13:50 Dose: 300 mg Insulin Detemir (Levemir Vial) 10 units SQ HS [facility] Last Admin: 11/06/19 21:40 Dose: 10 units Levothyroxine Sodium (Synthroid -) 75 mcg PO ACBK [facility] Last Admin: 11/07/19 06:52 Dose: 75 mcg Metoclopramide HCl (Reglan -) 10 mg PO BIDAC [facility] Last Admin: 11/07/19 17:15 Dose: 10 mg Metoprolol Succinate (Toprol Xl -) 25 mg PO DAILY [facility] Last Admin: 11/07/19 09:26 Dose: 25 mg Pantoprazole Sodium (Protonix -) 40 mg PO DAILY [facility] Last Admin: 11/07/19 09:25 Dose: 40 mg Sacubitril/Valsartan (Entresto 24 Mg-26 Mg Tablet) 1 tab PO BID [facility] Last Admin: 11/07/19 09:26 Dose: 1 tab Spironolactone (Aldactone -) 50 mg PO DAILY [facility] Last Admin: 11/07/19 09:26 Dose: 50 mg - Objective Vital Signs: Vital Signs Temperature 98.9 F 11/07/19 13:40 Pulse Rate 87 11/07/19 13:40 Respiratory Rate 18 11/07/19 13:40 Blood Pressure 98/55 L 11/07/19 13:40 O2 Sat by Pulse Oximetry (%) 98 11/07/19 15:37 Constitutional: Yes: Obese Neck: Yes: WNL, Supple Cardiovascular: Yes: WNL, Regular Rate and Rhythm Respiratory: Yes: WNL, Regular, CTA Bilaterally Gastrointestinal: Yes: WNL, Normal Bowel Sounds, Soft, Abdomen, Obese Edema: No Labs: CBC, BMP 11/07/19 06:00 11/07/19 06:00 Problem List - Problems (1) Diarrhea Assessment/Plan: Stool studies are negative Colace was dc'ed but diarrhea continues Metformin was also dc'ed due to diarrhea Replace K+ GI consult Due to h/o CHF will hold off on IVF Code(s): R19.7 - DIARRHEA, UNSPECIFIED (2) MU (acute kidney injury) Assessment/Plan: Resolved Code(s): N17.9 - ACUTE KIDNEY FAILURE, UNSPECIFIED (3) Acute on chronic systolic (congestive) heart failure Assessment/Plan: Cont lasix/aldactone Monitor electrolytes Code(s): I50.23 - ACUTE ON CHRONIC SYSTOLIC (CONGESTIVE) HEART FAILURE (4) COPD (chronic obstructive pulmonary disease) Assessment/Plan: Cont duoneb/symbicort Code(s): J44.9 - CHRONIC OBSTRUCTIVE PULMONARY DISEASE, UNSPECIFIED Qualifiers: COPD type: chronic bronchitis Chronic bronchitis type: unspecified Qualified Code(s): J42 - Unspecified chronic bronchitis (5) Diabetes Assessment/Plan: Cont levemir Cont sliding scale w/ coverage Metformin was dc'ed due to diarrhea Code(s): E11.9 - TYPE 2 DIABETES MELLITUS WITHOUT COMPLICATIONS Qualifiers: Diabetes mellitus type: type 2 (6) Hyperlipidemia Assessment/Plan: Cont lipitor Code(s): E78.5 - HYPERLIPIDEMIA, UNSPECIFIED (7) Hypertension Assessment/Plan: BP stable Cont torpol Code(s): I10 - ESSENTIAL (PRIMARY) HYPERTENSION Qualifiers: Hypertension type: essential hypertension Qualified Code(s): I10 - Essential (primary) hypertension (8) Hypothyroidism Assessment/Plan: Cont levothyroxine Check tsh Code(s): E03.9 - HYPOTHYROIDISM, UNSPECIFIED (9) ICD (implantable cardioverter-defibrillator) in place Code(s): Z95.810 - PRESENCE OF AUTOMATIC (IMPLANTABLE) CARDIAC DEFIBRILLATOR (10) Paroxysmal A-fib Assessment/Plan: Heart rate controlled Cont eliquis Code(s): I48.0 - PAROXYSMAL ATRIAL FIBRILLATION (11) Morbid obesity Code(s): E66.01 - MORBID (SEVERE) OBESITY DUE TO EXCESS CALORIES (12) Sleep apnea Assessment/Plan: Cont cpap Code(s): G47.30 - SLEEP APNEA, UNSPECIFIED (13) Troponin level elevated Assessment/Plan: Due to demand ischemia Code(s): R79.89 - OTHER SPECIFIED ABNORMAL FINDINGS OF BLOOD CHEMISTRY (14) CAD (coronary artery disease) Code(s): I25.10 - ATHSCL HEART DISEASE OF [place] CORONARY ARTERY W/O ANG PCTRS (15) UTI (urinary tract infection) Assessment/Plan: Urine culture was negative for UTI IV ceftriaxone was dc'ed Code(s): N39.0 - URINARY TRACT INFECTION, SITE NOT SPECIFIED Qualifiers: Urinary tract infection type: acute cystitis Hematuria presence: without hematuria Qualified Code(s): N30.00 - Acute cystitis without hematuria
[2019-11-07] MEDS: ATORVASTATIN CA 40 MG TABLET (FP) PO SCH (21:25)
[2019-11-07] MEDS: INSULIN (LEVEMIR) 100 UNITS/ML UNITS SQ SCH (21:26)
[2019-11-08] MEDS: GABAPENTIN 300 MG CAPSULE (FP) PO SCH ×3 (06:20→22:07)
[2019-11-08] MEDS: LEVOTHYROXINE NA 75 MCG TABLET (FP) PO SCH (06:20)
[2019-11-08] MEDS: METOCLOPRAMIDE HCL 10 MG TABLET (FP) PO SCH ×2 (06:20→16:22)
[2019-11-08 06:43] LABS: EOS % 2.5 % (0-4.5); HEMATOCRIT 32.1 % (32.4-45.2); HEMOGLOBIN 10.4 GM/dL (10.7-15.3); LYMPH % 39.2 % (8-40); MCH 26.9 pg (25.7-33.7); MCHC 32.4 g/dl (32.0-36.0); MEAN CELL VOLUME 83.2 fl (80-96); MEAN PLT VOLUME 9.7 fl (7.5-11.1); MONO % 8.4 % (3.8-10.2); NEUT % 48.9 % (42.8-82.8); PLATELET COUNT 247 K/MM3 (134-434); RBC 3.85 M/mm3 (3.60-5.2); RDW 15.5 % (11.6-15.6); WHITE BLOOD COUNT 6.6 K/mm3 (4.0-10.0)
[2019-11-08 07:22] LABS: ALBUMIN 2.9 g/dl (3.4-5.0); BILIRUBIN,TOTAL 0.2 mg/dL (0.2-1); CALCIUM 8.8 mg/dL (8.5-10.1); CREATININE 0.9 mg/dL (0.55-1.3); POTASSIUM 3.7 mmol/L (3.5-5.1); TOT PROT 6.1 g/dl (6.4-8.2)
--- NOTE | 2019-11-08 08:33 | CON.GI ---
Consult Consult Specialty:: GI Referred by:: Dr Kristine Lewis Reason for Consultation:: Diarrhea - History of Present Illness History of Present Illness: Patient is a 59 y/o female with past medical history of DM, HTN, HLD, ACS s/p VA with placement of pacemaker and stents, CHF, Asthma, and COPD with use of Bipap, and Morbid Obesity. Consult was placed for patient experiencing diarrhea. She states diarrhea was present on admission. Patient states having non-bloody diarrhea accompanied with mid to right sided sharp abdominal pain. She says having night awakening and recent antibiotic use. There are no alleviating or exacerbating factors. Denies recent travel. She states having dysphagia accompanied with nausea. She denies rectal bleeding but states having infrequent episodes of dark colored stool. CTAP shows no evidence of small bowel obstruction or acute pathology. Stool cultures are negative. Since admission no leukocytosis noted and has been afebrile. - History Source History Provided By: Patient Limitations to Obtaining History: No Limitations - Past Medical History Cardio/Vascular: Yes: CHF, HTN, Hyperlipdemia Pulmonary: Yes: Asthma, Sleep Apnea Endocrine: Yes: Diabetes Mellitus, Hypothyroidism - Past Surgical History Past Surgical History: Yes: Cholecystectomy, Hysterectomy, Joint Replacement ( left tkr), Permanent Pacemaker (ICD), Stent Additional Surgical History: skin grafting of abdominal wall defect - Alcohol/Substance Use Hx Alcohol Use: No - Smoking History Smoking history: Former smoker Have you smoked in the past 12 months: No Aproximately how many cigarettes per day: 0 - Social History Usual Living Arrangement: With Spouse ADL: Independent History of Recent Travel: No Home Medications - Allergies Allergies/Adverse Reactions: Allergies Allergy/AdvReac Type Severity Reaction Status Date / Time tomato Allergy Mild Hives Verified 11/02/19 17:11 chlorpheniramine Allergy Verified 11/02/19 17:11 cimetidine Allergy Verified 11/02/19 17:11 codeine [Codeine] Allergy Verified 11/02/19 17:11 ibuprofen Allergy Verified 11/02/19 17:11 latex [Latex] Allergy Verified 11/02/19 17:11 Latex, Natural Rubber Allergy Verified 11/02/19 17:11 pseudoephedrine Allergy Verified 11/02/19 17:11 salmeterol xinafoate Allergy Verified 11/02/19 17:11 [From Advair Diskus] shellfish derived Allergy Verified 11/02/19 17:11 Sulfa (Sulfonamide Allergy Verified 11/02/19 17:11 Antibiotics) [Sulfa(Sulfonamide Antibiotics)] Chocolate Allergy Mild Hives Uncoded 11/02/19 17:11 shrimp Allergy Mild Hives Uncoded 11/02/19 17:11 - Home Medications Home Medications: Ambulatory Orders Atorvastatin Ca [Lipitor] 40 mg PO HS 08/09/16 Insulin Glargine,Hum.rec.anlog [Lantus Solostar PEN -] 20 units SQ AM 08/09/16 Budesonide/Formeterol Fumarate [SYMBICORT 160/4.5mcg -] 2 puff PO BID 10/14/16 Linagliptin/Metformin HCl [Jentadueto 2.5 mg-1000 mg Tab] 1 tab PO BID 10/14/16 Albuterol 2.5/Ipratropium 0.5 [Duoneb -] 1 amp NEB Q6H PRN #90 amp 05/21/19 Levothyroxine [Synthroid -] 75 mcg PO DAILY #30 tablet 05/21/19 Dexlansoprazole [Dexilant -] 60 mg PO DAILY 08/13/19 Gabapentin [Neurontin -] 300 mg PO TID 08/13/19 Insulin Glargine,Hum.rec.anlog [Lantus Solostar PEN -] 10 units SQ HS 08/13/19 Metoprolol Succinate [Toprol XL -] 25 mg PO DAILY 10/10/19 Apixaban [Eliquis -] 5 mg PO BID 11/02/19 Dexlansoprazole [Dexilant -] 60 mg PO DAILY 11/02/19 Docusate Sodium [Colace -] 100 mg PO BID 11/02/19 Duloxetine HCl [Cymbalta] 30 mg PO DAILY 11/02/19 Linaclotide [Linzess] 290 mcg PO DAILY 11/02/19 Metoclopramide HCl [Reglan] 5 mg PO BID 11/02/19 Sacubitril/Valsartan [Entresto 24 mg-26 mg Tablet] 1 each PO ASDIR 11/02/19 Furosemide [Lasix -] 20 mg PO DAILY #30 tablet 11/06/19 Spironolactone [Aldactone -] 50 mg PO DAILY #30 tablet 12/07/19 Review of Systems - Review of Systems Constitutional: reports: Unintentional Wgt. Loss Eyes: reports: No Symptoms HENT: reports: No Symptoms Neck: reports: No Symptoms Cardiovascular: reports: No Symptoms Respiratory: reports: No Symptoms Gastrointestinal: reports: Abdominal Pain, Diarrhea, Melena Genitourinary: reports: No Symptoms Breasts: reports: No Symptoms Reported Musculoskeletal: reports: No Symptoms Integumentary: reports: No Symptoms Neurological: reports: No Symptoms Endocrine: reports: No Symptoms Hematology/Lymphatic: reports: No Symptoms Psychiatric: reports: No Symptoms Physical Exam-GI Vital Signs: Vital Signs Temperature 97.9 F 11/08/19 06:00 Pulse Rate 83 11/08/19 06:00 Respiratory Rate 20 11/08/19 06:00 Blood Pressure 119/71 11/08/19 06:00 O2 Sat by Pulse Oximetry (%) 95 11/08/19 08:11 Constitutional: Yes: No Distress, Calm, Obese Eyes: Yes: Conjunctiva Clear HENT: Yes: Atraumatic Cardiovascular: Yes: Regular Rate and Rhythm Respiratory: Yes: Regular, CTA Bilaterally Gastrointestinal Inspection: Yes: Scars. No: WNL, Ascites, Distention, Hernia, Other ...Auscultate: Yes: Normoactive Bowel Sounds. No: Hyperactive Bowel Sounds, Hypoactive Bowel Sounds, No Bowel Sounds, Other ...Palpate: Yes: Soft, Tenderness (RUQ and RLQ), Tenderness, Epigastium. No: Firm/Rigid, Guarding, Hepatomegaly, Mass, Pulsatile Mass, Splenomegaly, Tenderness, Rebound, Other ...Percussion: Yes: Tympanitic. No: Dullness, Fluid Wave, Other Neurological: Yes: Alert, Oriented Psychiatric: Yes: Alert, Oriented Labs: CBC, BMP 11/08/19 06:05 11/08/19 06:05 Home Medication List Medication Instructions Recorded Confirmed Type Atorvastatin Ca [Lipitor] 40 mg PO HS 08/09/16 11/02/19 History Insulin Glargine,Hum.rec.anlog 20 units SQ AM 08/09/16 11/02/19 History [Lantus Solostar PEN -] Budesonide/Formeterol Fumarate 2 puff PO BID 10/14/16 11/02/19 History [SYMBICORT 160/4.5mcg -] Linagliptin/Metformin HCl 1 tab PO BID 10/14/16 11/02/19 History [Jentadueto 2.5 mg-1000 mg Tab] Dexlansoprazole [Dexilant -] 60 mg PO DAILY 08/13/19 11/02/19 History Gabapentin [Neurontin -] 300 mg PO TID 08/13/19 11/02/19 History Insulin Glargine,Hum.rec.anlog 10 units SQ HS 08/13/19 11/02/19 History [Lantus Solostar PEN -] Metoprolol Succinate [Toprol XL -] 25 mg PO DAILY 10/10/19 11/02/19 History Apixaban [Eliquis -] 5 mg PO BID 11/02/19 11/02/19 History Dexlansoprazole [Dexilant -] 60 mg PO DAILY 11/02/19 11/02/19 History Docusate Sodium [Colace -] 100 mg PO BID 11/02/19 11/02/19 History Duloxetine HCl [Cymbalta] 30 mg PO DAILY 11/02/19 11/02/19 History Linaclotide [Linzess] 290 mcg PO DAILY 11/02/19 11/02/19 History Metoclopramide HCl [Reglan] 5 mg PO BID 11/02/19 11/02/19 History Sacubitril/Valsartan [Entresto 24 1 each PO ASDIR 11/02/19 11/02/19 History mg-26 mg Tablet] Active Medications Generic Name Dose Route Start Last Admin Trade Name Freq PRN Reason Stop Dose Admin Acetaminophen 650 mg 11/05/19 18:53 11/05/19 18:58 Tylenol - PO 650 mg Q6H PRN Administration PAIN LEVEL 1-5 Apixaban 5 mg 11/03/19 10:00 11/07/19 21:25 Eliquis - PO 5 mg BID DOM Administration Atorvastatin Calcium 40 mg 11/03/19 22:00 11/07/19 21:25 Lipitor - PO 40 mg HS DOM Administration Budesonide/Formoterol Fumarate 2 puff 11/03/19 10:00 11/07/19 21:26 Symbicort 160/4.5mcg - IH 2 puff BID DOM Administration Duloxetine HCl 30 mg 11/03/19 10:00 11/07/19 09:25 Cymbalta - PO 30 mg DAILY DOM Administration Furosemide 20 mg 11/05/19 10:00 11/07/19 09:26 Lasix - PO 20 mg DAILY DOM Administration Gabapentin 300 mg 11/03/19 06:00 11/08/19 06:20 Neurontin - PO 300 mg TID DOM Administration Insulin Detemir 10 units 11/05/19 22:00 11/07/19 21:26 Levemir Vial SQ 10 units HS DOM Administration Levothyroxine Sodium 75 mcg 11/03/19 07:00 11/08/19 06:20 Synthroid - PO 75 mcg ACBK DOM Administration Metoclopramide HCl 10 mg 11/03/19 07:00 11/08/19 06:20 Reglan - PO 10 mg BIDAC DOM Administration Metoprolol Succinate 25 mg 11/03/19 10:00 11/07/19 09:26 Toprol Xl - PO 25 mg DAILY DOM Administration Pantoprazole Sodium 40 mg 11/03/19 10:00 11/07/19 09:25 Protonix - PO 40 mg DAILY DOM Administration Sacubitril/Valsartan 1 tab 11/04/19 12:45 11/07/19 21:26 Entresto 24 Mg-26 Mg Tablet PO 1 tab BID DOM Administration Spironolactone 50 mg 11/05/19 13:37 11/07/19 09:26 Aldactone - PO 50 mg DAILY DOM Administration Imaging - Results Cat Scan: Report Reviewed Problem List - Problems (1) Diarrhea Assessment/Plan: >low fiber, lactose free diet >Stool Calpoprectin, WBC, and C-diff ordered >Flagyl 250mg PO TID Code(s): R19.7 - DIARRHEA, UNSPECIFIED
[2019-11-08] MEDS ORDERED: PT OWN MED DRAWER 7, Y5N ONE ×3 (09:17→18:54)
[2019-11-08] MEDS: APIXABAN 5 MG TABLET PO SCH ×2 (09:38→22:07)
[2019-11-08] MEDS: PANTOPRAZOLE 40 MG TABLET (FP) PO SCH (09:38)
[2019-11-08] MEDS: DULoxetine HCL 30 MG CAPSULE.DR PO SCH (09:38)
[2019-11-08] MEDS: metoPROLOL SUCCINATE 25 MG TAB.SR.24H (FP) PO SCH (09:39)
[2019-11-08] MEDS: BUDESONIDE/FORMETEROL FUMARATE 160/4.5 mcg INHALER IH SCH ×2 (09:39→22:08)
[2019-11-08] MEDS: FUROSEMIDE 20 MG TABLET (FP) PO SCH (09:39)
[2019-11-08] MEDS: SPIRONOLACTONE 25 MG TABLET (FP) PO SCH (09:39)
[2019-11-08] MEDS: SACUBITRIL/VALSARTAN 24 MG-26 MG TABLET PO SCH ×2 (09:39→22:07)
--- NOTE | 2019-11-08 09:41 | PN ---
Progress Note, Physician Chief Complaint: diarrhea History of Present Illness: denies bloating/swelling, sob/PND no cp, palp diarrhea continues--GI to see today - Current Medication List Current Medications: Active Medications Acetaminophen (Tylenol -) 650 mg PO Q6H PRN PRN Reason: PAIN LEVEL 1-5 Last Admin: 11/05/19 18:58 Dose: 650 mg Apixaban (Eliquis -) 5 mg PO BID [facility] Last Admin: 11/07/19 21:25 Dose: 5 mg Atorvastatin Calcium (Lipitor -) 40 mg PO HS [facility] Last Admin: 11/07/19 21:25 Dose: 40 mg Budesonide/Formoterol Fumarate (Symbicort 160/4.5mcg -) 2 puff IH BID [facility] Last Admin: 11/07/19 21:26 Dose: 2 puff Duloxetine HCl (Cymbalta -) 30 mg PO DAILY [facility] Last Admin: 11/07/19 09:25 Dose: 30 mg Furosemide (Lasix -) 20 mg PO DAILY [facility] Last Admin: 11/07/19 09:26 Dose: 20 mg Gabapentin (Neurontin -) 300 mg PO TID [facility] Last Admin: 11/08/19 06:20 Dose: 300 mg Insulin Detemir (Levemir Vial) 10 units SQ HS [facility] Last Admin: 11/07/19 21:26 Dose: 10 units Levothyroxine Sodium (Synthroid -) 75 mcg PO ACBK [facility] Last Admin: 11/08/19 06:20 Dose: 75 mcg Metoclopramide HCl (Reglan -) 10 mg PO BIDAC [facility] Last Admin: 11/08/19 06:20 Dose: 10 mg Metoprolol Succinate (Toprol Xl -) 25 mg PO DAILY [facility] Last Admin: 11/07/19 09:26 Dose: 25 mg Metronidazole (Flagyl -) 250 mg PO TID [facility] Stop: 11/22/19 13:59 Pantoprazole Sodium (Protonix -) 40 mg PO DAILY [facility] Last Admin: 11/07/19 09:25 Dose: 40 mg Sacubitril/Valsartan (Entresto 24 Mg-26 Mg Tablet) 1 tab PO BID [facility] Last Admin: 11/07/19 21:26 Dose: 1 tab Spironolactone (Aldactone -) 50 mg PO DAILY [facility] Last Admin: 12/08/19 09:26 Dose: 50 mg - Objective Vital Signs: Vital Signs Temperature 98.2 F 11/08/19 09:37 Pulse Rate 83 11/08/19 09:37 Respiratory Rate 19 11/08/19 09:37 Blood Pressure 105/65 11/08/19 09:37 O2 Sat by Pulse Oximetry (%) 95 11/08/19 08:11 Constitutional: Yes: No Distress, Calm, Obese Cardiovascular: Yes: Regular Rate and Rhythm, S1, S2. No: JVD (tds habitus), Gallop, Murmur Respiratory: Yes: Regular, CTA Bilaterally. No: Accessory Muscle Use, Rales, Wheezes Extremities: No: Cold Edema: No Neurological: Yes: Alert, Oriented Psychiatric: No: Agitated Labs: CBC, BMP 11/08/19 06:05 11/08/19 06:05 Assessment/Plan Cardiac Catheterization (non-obstructive CAD) echo 05/2019 tds, mildly dilated LV, severe global hypok, RV nl CXR: no congestion or effusion seen EKG: sinus tach, LBBB tele: sinus Dizziness, fatigue: - likely in setting of overdiuresis - lasix increased to 80 mg daily the week prior to admission - sxs improved with ivfs - now back on low dose PO Lasix MU: - likely prerenal, cr improved with ivfs - renal consulted - resumed Lasix at lower dose UTI: - manage per primary Elevated trop: - indeterminate range, flat trend likely in setting of cardiomyopathy, MU ( similar to prior values) - symptoms atypical for ACS, stable EKG - less likely ACS Chronic systolic HF, s/p ICD: Euvolemic - recent RHC/LHC at [facility] reportedly no significant findings - CXR no congestion, appears euvolemic - cont entresto, spironolactone, metoprolol; Spironolactone should help with hypokalemia- electrolytes need to be closely monitored as outpt - likely euvoleimc--cont lasix 20 qd as doing - outpatient ICD monitoring -Tele d/c 11/06 Copd/asthma: - manage per primary HTN: - bp controlled Paroxysmal afib: - in sinus here--cont home bb - cont home eliquis for AC (5 bid) HLD: - cont statin
[2019-11-08] MEDS: metroNIDAZOLE 250 MG TABLET PO SCH ×2 (14:00→22:07)
--- NOTE | 2019-11-08 15:26 | PN ---
Progress Note, Physician History of Present Illness: Pt seen and examined at bedside. She is awake and alert. She denies shortness of breath. - Current Medication List Current Medications: Active Medications Acetaminophen (Tylenol -) 650 mg PO Q6H PRN PRN Reason: PAIN LEVEL 1-5 Last Admin: 11/05/19 18:58 Dose: 650 mg Apixaban (Eliquis -) 5 mg PO BID [facility] Last Admin: 11/08/19 09:38 Dose: 5 mg Atorvastatin Calcium (Lipitor -) 40 mg PO HS [facility] Last Admin: 11/07/19 21:25 Dose: 40 mg Budesonide/Formoterol Fumarate (Symbicort 160/4.5mcg -) 2 puff IH BID [facility] Last Admin: 11/08/19 09:39 Dose: 2 puff Duloxetine HCl (Cymbalta -) 30 mg PO DAILY [facility] Last Admin: 11/08/19 09:38 Dose: 30 mg Furosemide (Lasix -) 20 mg PO DAILY [facility] Last Admin: 11/08/19 09:39 Dose: 20 mg Gabapentin (Neurontin -) 300 mg PO TID [facility] Last Admin: 11/08/19 14:00 Dose: 300 mg Insulin Detemir (Levemir Vial) 10 units SQ HS [facility] Last Admin: 11/07/19 21:26 Dose: 10 units Levothyroxine Sodium (Synthroid -) 75 mcg PO ACBK [facility] Last Admin: 11/08/19 06:20 Dose: 75 mcg Metoclopramide HCl (Reglan -) 10 mg PO BIDAC [facility] Last Admin: 11/08/19 06:20 Dose: 10 mg Metoprolol Succinate (Toprol Xl -) 25 mg PO DAILY [facility] Last Admin: 11/08/19 09:39 Dose: 25 mg Metronidazole (Flagyl -) 250 mg PO TID [facility] Stop: 11/22/19 13:59 Last Admin: 11/08/19 14:00 Dose: 250 mg Pantoprazole Sodium (Protonix -) 40 mg PO DAILY [facility] Last Admin: 11/08/19 09:38 Dose: 40 mg Sacubitril/Valsartan (Entresto 24 Mg-26 Mg Tablet) 1 tab PO BID [facility] Last Admin: 11/08/19 09:39 Dose: 1 tab Spironolactone (Aldactone -) 50 mg PO DAILY [facility] Last Admin: 11/08/19 09:39 Dose: 50 mg - Objective Vital Signs: Vital Signs Temperature 97.8 F 11/08/19 13:35 Pulse Rate 84 11/08/19 13:35 Respiratory Rate 18 11/08/19 13:35 Blood Pressure 117/53 L 11/08/19 13:35 O2 Sat by Pulse Oximetry (%) 97 11/08/19 09:00 Constitutional: Yes: Calm Eyes: Yes: Conjunctiva Clear HENT: Yes: Atraumatic Neck: Yes: Supple Cardiovascular: Yes: S1, S2 Respiratory: Yes: CTA Bilaterally Gastrointestinal: Yes: Soft, Abdomen, Obese Genitourinary: Yes: WNL Musculoskeletal: Yes: WNL Edema: No Neurological: Yes: Oriented Psychiatric: Yes: Oriented Labs: CBC, BMP 11/08/19 06:05 11/08/19 06:05 Problem List - Problems (1) Abdominal pain Code(s): R10.9 - UNSPECIFIED ABDOMINAL PAIN (2) MU (acute kidney injury) Code(s): N17.9 - ACUTE KIDNEY FAILURE, UNSPECIFIED Assessment/Plan Current Medications Generic Name Dose Route Start Last Admin Trade Name Freq PRN Reason Stop Dose Admin Acetaminophen 650 mg 11/05/19 18:53 11/05/19 18:58 Tylenol - PO 650 mg Q6H PRN Administration PAIN LEVEL 1-5 Apixaban 5 mg 11/03/19 10:00 11/08/19 09:38 Eliquis - PO 5 mg BID DOM Administration Atorvastatin Calcium 40 mg 11/03/19 22:00 11/07/19 21:25 Lipitor - PO 40 mg HS DOM Administration Budesonide/Formoterol Fumarate 2 puff 11/03/19 10:00 11/08/19 09:39 Symbicort 160/4.5mcg - IH 2 puff BID DOM Administration Duloxetine HCl 30 mg 11/03/19 10:00 11/08/19 09:38 Cymbalta - PO 30 mg DAILY DOM Administration Furosemide 20 mg 11/05/19 10:00 11/08/19 09:39 Lasix - PO 20 mg DAILY DOM Administration Gabapentin 300 mg 11/03/19 06:00 11/08/19 14:00 Neurontin - PO 300 mg TID DOM Administration Insulin Detemir 10 units 11/05/19 22:00 11/07/19 21:26 Levemir Vial SQ 10 units HS DOM Administration Levothyroxine Sodium 75 mcg 11/03/19 07:00 11/08/19 06:20 Synthroid - PO 75 mcg ACBK DOM Administration Metoclopramide HCl 10 mg 11/03/19 07:00 11/08/19 06:20 Reglan - PO 10 mg BIDAC DOM Administration Metoprolol Succinate 25 mg 11/03/19 10:00 11/08/19 09:39 Toprol Xl - PO 25 mg DAILY DOM Administration Metronidazole 250 mg 11/08/19 14:00 11/08/19 14:00 Flagyl - PO 11/22/19 13:59 250 mg TID DOM Administration Pantoprazole Sodium 40 mg 11/03/19 10:00 11/08/19 09:38 Protonix - PO 40 mg DAILY DOM Administration Sacubitril/Valsartan 1 tab 11/04/19 12:45 11/08/19 09:39 Entresto 24 Mg-26 Mg Tablet PO 1 tab BID DOM Administration Spironolactone 50 mg 11/05/19 13:37 11/08/19 09:39 Aldactone - PO 50 mg DAILY DOM Administration Impression 1. ckd 2. abd pain 3. asthma 4. chf 5. obesity 6. hypotension 7. a-fib Plan - cont lasix - cont aldactone - monitor lytes - pt to weigh herself every day at home - may need to increase lasix if she starts to gain water weight. she is very sensitive to diuretics changes - likely overdiuresed with 80 of lasix - cardio input appreciated
[2019-11-08] MEDS: ACETAMINOPHEN 325 MG TABLET (FP) PO PRN (16:21)
--- NOTE | 2019-11-08 22:05 | PN ---
Progress Note, Physician History of Present Illness: Pt still w/ diarrhea - Current Medication List Current Medications: Active Medications Acetaminophen (Tylenol -) 650 mg PO Q6H PRN PRN Reason: PAIN LEVEL 1-5 Last Admin: 11/08/19 16:21 Dose: 650 mg Apixaban (Eliquis -) 5 mg PO BID [facility] Last Admin: 11/08/19 09:38 Dose: 5 mg Atorvastatin Calcium (Lipitor -) 40 mg PO HS [facility] Last Admin: 11/07/19 21:25 Dose: 40 mg Budesonide/Formoterol Fumarate (Symbicort 160/4.5mcg -) 2 puff IH BID [facility] Last Admin: 11/08/19 09:39 Dose: 2 puff Duloxetine HCl (Cymbalta -) 30 mg PO DAILY [facility] Last Admin: 11/08/19 09:38 Dose: 30 mg Furosemide (Lasix -) 20 mg PO DAILY [facility] Last Admin: 11/08/19 09:39 Dose: 20 mg Gabapentin (Neurontin -) 300 mg PO TID [facility] Last Admin: 11/08/19 14:00 Dose: 300 mg Insulin Detemir (Levemir Vial) 10 units SQ HS [facility] Last Admin: 11/07/19 21:26 Dose: 10 units Levothyroxine Sodium (Synthroid -) 75 mcg PO ACBK [facility] Last Admin: 11/08/19 06:20 Dose: 75 mcg Metoclopramide HCl (Reglan -) 10 mg PO BIDAC [facility] Last Admin: 11/08/19 16:22 Dose: 10 mg Metoprolol Succinate (Toprol Xl -) 25 mg PO DAILY [facility] Last Admin: 11/08/19 09:39 Dose: 25 mg Metronidazole (Flagyl -) 250 mg PO TID [facility] Stop: 11/22/19 13:59 Last Admin: 11/08/19 14:00 Dose: 250 mg Pantoprazole Sodium (Protonix -) 40 mg PO DAILY [facility] Last Admin: 11/08/19 09:38 Dose: 40 mg Sacubitril/Valsartan (Entresto 24 Mg-26 Mg Tablet) 1 tab PO BID [facility] Last Admin: 11/08/19 09:39 Dose: 1 tab Spironolactone (Aldactone -) 50 mg PO DAILY [facility] Last Admin: 11/08/19 09:39 Dose: 50 mg - Objective Vital Signs: Vital Signs Temperature 97.6 F 11/08/19 18:00 Pulse Rate 82 11/08/19 18:00 Respiratory Rate 20 11/08/19 20:51 Blood Pressure 114/63 11/08/19 18:00 O2 Sat by Pulse Oximetry (%) 97 11/08/19 20:51 Constitutional: Yes: Obese Cardiovascular: Yes: WNL, Regular Rate and Rhythm Respiratory: Yes: WNL, Regular, CTA Bilaterally Gastrointestinal: Yes: WNL, Normal Bowel Sounds, Soft, Abdomen, Obese Edema: No Labs: CBC, BMP 11/08/19 06:05 11/08/19 06:05 Problem List - Problems (1) Diarrhea Assessment/Plan: Stool studies are negative Colace was dc'ed but diarrhea continues Metformin was also dc'ed due to diarrhea Pt started on flagyl DC planning for am Code(s): R19.7 - DIARRHEA, UNSPECIFIED (2) MU (acute kidney injury) Assessment/Plan: Resolved Code(s): N17.9 - ACUTE KIDNEY FAILURE, UNSPECIFIED (3) Acute on chronic systolic (congestive) heart failure Assessment/Plan: Cont lasix/aldactone Monitor electrolytes Code(s): I50.23 - ACUTE ON CHRONIC SYSTOLIC (CONGESTIVE) HEART FAILURE (4) COPD (chronic obstructive pulmonary disease) Assessment/Plan: Cont duoneb/symbicort Code(s): J44.9 - CHRONIC OBSTRUCTIVE PULMONARY DISEASE, UNSPECIFIED Qualifiers: COPD type: chronic bronchitis Chronic bronchitis type: unspecified Qualified Code(s): J42 - Unspecified chronic bronchitis (5) Diabetes Assessment/Plan: Cont levemir Cont sliding scale w/ coverage Metformin was dc'ed due to diarrhea Code(s): E11.9 - TYPE 2 DIABETES MELLITUS WITHOUT COMPLICATIONS Qualifiers: Diabetes mellitus type: type 2 (6) Hyperlipidemia Assessment/Plan: Cont lipitor Code(s): E78.5 - HYPERLIPIDEMIA, UNSPECIFIED (7) Hypertension Assessment/Plan: BP stable Cont torpol Code(s): I10 - ESSENTIAL (PRIMARY) HYPERTENSION Qualifiers: Hypertension type: essential hypertension Qualified Code(s): I10 - Essential (primary) hypertension (8) Hypothyroidism Assessment/Plan: Cont levothyroxine Check tsh Code(s): E03.9 - HYPOTHYROIDISM, UNSPECIFIED (9) ICD (implantable cardioverter-defibrillator) in place Code(s): Z95.810 - PRESENCE OF AUTOMATIC (IMPLANTABLE) CARDIAC DEFIBRILLATOR (10) Paroxysmal A-fib Assessment/Plan: Heart rate controlled Cont eliquis Code(s): I48.0 - PAROXYSMAL ATRIAL FIBRILLATION (11) Morbid obesity Code(s): E66.01 - MORBID (SEVERE) OBESITY DUE TO EXCESS CALORIES (12) Sleep apnea Assessment/Plan: Cont cpap Code(s): G47.30 - SLEEP APNEA, UNSPECIFIED (13) Troponin level elevated Assessment/Plan: Due to demand ischemia Code(s): R79.89 - OTHER SPECIFIED ABNORMAL FINDINGS OF BLOOD CHEMISTRY (14) CAD (coronary artery disease) Code(s): I25.10 - ATHSCL HEART DISEASE OF [place] CORONARY ARTERY W/O ANG PCTRS (15) UTI (urinary tract infection) Assessment/Plan: Urine culture was negative for UTI IV ceftriaxone was dc'ed Code(s): N39.0 - URINARY TRACT INFECTION, SITE NOT SPECIFIED Qualifiers: Urinary tract infection type: acute cystitis Hematuria presence: without hematuria Qualified Code(s): N30.00 - Acute cystitis without hematuria
[2019-11-08] MEDS: ATORVASTATIN CA 40 MG TABLET (FP) PO SCH (22:07)
[2019-11-08] MEDS: INSULIN (LEVEMIR) 100 UNITS/ML UNITS SQ SCH (22:08)
[2019-11-09] MEDS: LEVOTHYROXINE NA 75 MCG TABLET (FP) PO SCH (06:29)
[2019-11-09] MEDS: GABAPENTIN 300 MG CAPSULE (FP) PO SCH (06:29)
[2019-11-09] MEDS: METOCLOPRAMIDE HCL 10 MG TABLET (FP) PO SCH (06:30)
[2019-11-09] MEDS: metroNIDAZOLE 250 MG TABLET PO SCH (06:30)
[2019-11-09] MEDS ORDERED: PT OWN MED DRAWER 7, Y5N ONE ×2 (06:37→09:25)
[2019-11-09 08:37] VITALS: BP 121/74; PULSE 78; TEMP 98.8
[2019-11-09] MEDS: DULoxetine HCL 30 MG CAPSULE.DR PO SCH (09:40)
[2019-11-09] MEDS: metoPROLOL SUCCINATE 25 MG TAB.SR.24H (FP) PO SCH (09:40)
[2019-11-09] MEDS: PANTOPRAZOLE 40 MG TABLET (FP) PO SCH (09:40)
[2019-11-09] MEDS: FUROSEMIDE 20 MG TABLET (FP) PO SCH (09:40)
[2019-11-09] MEDS: SACUBITRIL/VALSARTAN 24 MG-26 MG TABLET PO SCH (09:40)
[2019-11-09] MEDS: SPIRONOLACTONE 25 MG TABLET (FP) PO SCH (09:40)
[2019-11-09] MEDS: APIXABAN 5 MG TABLET PO SCH (09:40)
[2019-11-09] MEDS: BUDESONIDE/FORMETEROL FUMARATE 160/4.5 mcg INHALER IH SCH (09:41)
--- NOTE | 2019-11-09 09:51 | PN ---
Progress Note, Physician Chief Complaint: no new complaints no CP or SOB - Current Medication List Current Medications: Active Medications Acetaminophen (Tylenol -) 650 mg PO Q6H PRN PRN Reason: PAIN LEVEL 1-5 Last Admin: 11/08/19 16:21 Dose: 650 mg Apixaban (Eliquis -) 5 mg PO BID [facility] Last Admin: 11/09/19 09:40 Dose: 5 mg Atorvastatin Calcium (Lipitor -) 40 mg PO HS [facility] Last Admin: 11/08/19 22:07 Dose: 40 mg Budesonide/Formoterol Fumarate (Symbicort 160/4.5mcg -) 2 puff IH BID [facility] Last Admin: 11/09/19 09:41 Dose: 2 puff Duloxetine HCl (Cymbalta -) 30 mg PO DAILY [facility] Last Admin: 11/09/19 09:40 Dose: 30 mg Furosemide (Lasix -) 20 mg PO DAILY [facility] Last Admin: 11/09/19 09:40 Dose: 20 mg Gabapentin (Neurontin -) 300 mg PO TID [facility] Last Admin: 11/09/19 06:29 Dose: 300 mg Insulin Detemir (Levemir Vial) 10 units SQ HS [facility] Last Admin: 11/08/19 22:08 Dose: 10 units Levothyroxine Sodium (Synthroid -) 75 mcg PO ACBK [facility] Last Admin: 11/09/19 06:29 Dose: 75 mcg Metoclopramide HCl (Reglan -) 10 mg PO BIDAC [facility] Last Admin: 11/09/19 06:30 Dose: 10 mg Metoprolol Succinate (Toprol Xl -) 25 mg PO DAILY [facility] Last Admin: 11/09/19 09:40 Dose: 25 mg Metronidazole (Flagyl -) 250 mg PO TID [facility] Stop: 11/22/19 13:59 Last Admin: 11/09/19 06:30 Dose: 250 mg Pantoprazole Sodium (Protonix -) 40 mg PO DAILY [facility] Last Admin: 11/09/19 09:40 Dose: 40 mg Sacubitril/Valsartan (Entresto 24 Mg-26 Mg Tablet) 1 tab PO BID [facility] Last Admin: 11/09/19 09:40 Dose: 1 tab Spironolactone (Aldactone -) 50 mg PO DAILY [facility] Last Admin: 11/09/19 09:40 Dose: 50 mg - Objective Vital Signs: Vital Signs Temperature 98.8 F 11/09/19 08:36 Pulse Rate 78 11/09/19 08:36 Respiratory Rate 18 11/09/19 08:36 Blood Pressure 121/74 11/09/19 08:36 O2 Sat by Pulse Oximetry (%) 95 11/09/19 02:30 Constitutional: Yes: No Distress, Calm Cardiovascular: Yes: Regular Rate and Rhythm Respiratory: Yes: CTA Bilaterally Gastrointestinal: Yes: Soft, Abdomen, Obese Edema: No Neurological: Yes: Alert, Oriented Labs: CBC, BMP 11/08/19 06:05 11/08/19 06:05 Assessment/Plan Assessment/Plan Cardiac Catheterization (non-obstructive CAD) echo 05/2019 tds, mildly dilated LV, severe global hypok, RV nl CXR: no congestion or effusion seen EKG: sinus tach, LBBB tele: sinus Dizziness, fatigue: improved - likely in setting of overdiuresis - lasix increased to 80 mg daily the week prior to admission - sxs improved with ivfs - now back on low dose PO Lasix MU: - likely prerenal, cr improved with ivfs - renal consulted - resumed Lasix at lower dose UTI: - manage per primary Elevated trop: - indeterminate range, flat trend likely in setting of cardiomyopathy, MU ( similar to prior values) - symptoms atypical for ACS, stable EKG - less likely ACS Chronic systolic HF, s/p ICD: Euvolemic - recent RHC/LHC at [facility] reportedly no significant findings - CXR no congestion, appears euvolemic - cont entresto, spironolactone, metoprolol; Spironolactone should help with hypokalemia- electrolytes need to be closely monitored as outpt - likely euvoleimc--cont lasix 20 qd as doing - outpatient ICD monitoring -Tele d/c 11/06 Copd/asthma: - manage per primary HTN: - bp controlled Paroxysmal afib: - in sinus here--cont home bb - cont home eliquis for AC (5 bid) HLD: - cont statin
--- NOTE | 2019-11-09 15:11 | PN ---
Progress Note, Physician History of Present Illness: Pt seen and examined at bedside. She is awake and alert. She is eager to go home. - Objective Vital Signs: Vital Signs Temperature 98.8 F 11/09/19 08:36 Pulse Rate 78 11/09/19 08:36 Respiratory Rate 18 11/09/19 08:36 Blood Pressure 121/74 11/09/19 08:36 O2 Sat by Pulse Oximetry (%) 95 11/09/19 09:00 Constitutional: Yes: Calm Eyes: Yes: Conjunctiva Clear HENT: Yes: Atraumatic Neck: Yes: Supple Cardiovascular: Yes: S1, S2 Respiratory: Yes: CTA Bilaterally Gastrointestinal: Yes: Soft, Abdomen, Obese Genitourinary: Yes: WNL Musculoskeletal: Yes: WNL Edema: No Neurological: Yes: Oriented Psychiatric: Yes: Oriented Labs: CBC, BMP 11/08/19 06:05 11/08/19 06:05 Problem List - Problems (1) Abdominal pain Code(s): R10.9 - UNSPECIFIED ABDOMINAL PAIN (2) MU (acute kidney injury) Code(s): N17.9 - ACUTE KIDNEY FAILURE, UNSPECIFIED Assessment/Plan Impression 1. ckd 2. abd pain 3. asthma 4. chf 5. obesity 6. hypotension 7. a-fib Plan - renal function is stable - con lasix and aldactone - will need outpt follow up - pt will record her weights at home daily - cardio input appreciated
--- NOTE | 2019-11-15 01:04 | DS ---
Physical Examination Vital Signs: Vital Signs Temperature 98.8 F 11/09/19 08:36 Pulse Rate 78 11/09/19 08:36 Respiratory Rate 18 11/09/19 08:36 Blood Pressure 121/74 11/09/19 08:36 O2 Sat by Pulse Oximetry (%) 95 11/09/19 09:00 Labs: CBC, BMP 11/08/19 06:05 11/08/19 06:05 Discharge Summary Problems reviewed: Yes Reason For Visit: ACUTE KIDNEY INJURY,UTI,ELEVATAED TROPONIN LEVEL Chronic systolic heart failure Dizziness Acute on chronic renal insufficiency Diabetes HTN HLD Paroxysmal afib Hypothyroidism Sleep apnea Morbid obesity Elevated troponin Abdominal pain Hospital Course: Pt is a 59 year old female with pmhx of dm, htn, hld, chf, ckd, víctor. obesity and copd who presents to the ER with dizziness and nausea. She also complains of abdominal pain. Pt was found to be euvolumic however pt's dizziness was thought to be due to overdiuresis intially. Pt was treated for chronic systolic congestive heart failure. Pt was seen by cadrio/renal and also found to have acute on chronic renal insufficiency. Pt admitted to tele troponin was slightly elevated and thought to be due to demand ischemia. Pt also had ct scan abd wc did not show any acute pathology. pt also treated w/ iV antibx for UTI and urine culture was normal and IV antibx was stopped. Pt also developed diarrhea and stool studies were negative and was seen by GI. Condition: Good - Instructions Diet, Activity, Other Instructions: 2 gram sodium and diabetic diet See Dr Mooney in [address] Reece Lanza in 2 weeks Referrals: Reece Lanza MD [Primary Care Provider] - Disposition: HOME HEALTH CARE - Home Medications Comprehensive Discharge Medication List: Ambulatory Orders Atorvastatin Ca [Lipitor] 40 mg PO HS 08/09/16 Insulin Glargine,Hum.rec.anlog [Lantus Solostar PEN -] 20 units SQ AM 08/09/16 Budesonide/Formeterol Fumarate [SYMBICORT 160/4.5mcg -] 2 puff PO BID 10/14/16 Linagliptin/Metformin HCl [Jentadueto 2.5 mg-1000 mg Tab] 1 tab PO BID 10/14/16 Albuterol 2.5/Ipratropium 0.5 [Duoneb -] 1 amp NEB Q6H PRN #90 amp 05/21/19 Levothyroxine [Synthroid -] 75 mcg PO DAILY #30 tablet 05/21/19 Dexlansoprazole [Dexilant -] 60 mg PO DAILY 08/13/19 Gabapentin [Neurontin -] 300 mg PO TID 08/13/19 Insulin Glargine,Hum.rec.anlog [Lantus Solostar PEN -] 10 units SQ HS 08/13/19 Metoprolol Succinate [Toprol XL -] 25 mg PO DAILY 10/10/19 Apixaban [Eliquis -] 5 mg PO BID 11/02/19 Dexlansoprazole [Dexilant -] 60 mg PO DAILY 11/02/19 Docusate Sodium [Colace -] 100 mg PO BID 11/02/19 Duloxetine HCl [Cymbalta] 30 mg PO DAILY 11/02/19 Linaclotide [Linzess] 290 mcg PO DAILY 11/02/19 Metoclopramide HCl [Reglan] 5 mg PO BID 11/02/19 Sacubitril/Valsartan [Entresto 24 mg-26 mg Tablet] 1 each PO ASDIR 11/02/19 Furosemide [Lasix -] 20 mg PO DAILY #30 tablet 11/06/19 Spironolactone [Aldactone -] 50 mg PO DAILY #30 tablet 11/06/19
== END 2019-11-09 11:52 | disposition home health service (06) | DRG 683 ==
LOC: JER 16:42 → JERBED 21:54 → OBSVTOIN 11-03 00:50 → J4S 11-03 15:09
PROVIDERS: ADMIT Internal Medicine; ATTEND Internal Medicine
DX: N17.9 Acute kidney failure, unspecified (principal); N39.0 Urinary tract infection, site not specified; I48.92 Unspecified atrial flutter; I13.0 Hypertensive heart and chronic kidney disease with heart failure and stage 1 through stage 4 chronic kidney disease, or unspecified chronic kidney disease; I47.1 Supraventricular tachycardia; I50.22 Chronic systolic (congestive) heart failure; I25.10 Atherosclerotic heart disease of native coronary artery without angina pectoris; Z68.39 Body mass index [BMI] 39.0-39.9, adult; K43.2 Incisional hernia without obstruction or gangrene; R19.7 Diarrhea, unspecified; E66.01 Morbid (severe) obesity due to excess calories; I95.9 Hypotension, unspecified; I48.0 Paroxysmal atrial fibrillation; E78.5 Hyperlipidemia, unspecified; E11.9 Type 2 diabetes mellitus without complications; E03.9 Hypothyroidism, unspecified; Z95.810 Presence of automatic (implantable) cardiac defibrillator; Z98.61 Coronary angioplasty status
CPT/HCPCS: 36415; 71045-TC-FY; 74176-TC; 80053; 81003; 82550; 82553; 82962; 83690; 83735; 84443; 84484; 85025; 87045; 87046; 87081; 87086; 87205; 87324; 87449; 87804; 93005; 93010; 94660; 99284-25; G0378; J0131; J7030; Q9967

== ENCOUNTER 2019-12-11 07:41 | Inpatient (IN) | payer OTHER ==
--- NOTE | 2019-12-11 08:16 | PDOC ---
Attending Attestation - Resident Resident Name: Danni Wylie - HPI HPI: 12/11/19 10:38 Pt presents to the ED complaining of shortness of breath and orthopnea. Also complaining of non productive cough. Denies fever, nausea or vomiting or chest pain. 12/11/19 10:41 - Physicial Exam PE: 12/11/19 10:42 Agree with resident exam. Patient is alert and in NAD. Cv: rrr no m/r/g. Pulm : CTA, decreased air entry. EXt no edema. - Medical Decision Making 12/11/19 10:46 Pt presents to the ED complaining of SOB and orthopnea, along with non productive cough. Differential includes COPD exacerbation, CHF. Will check labs and CXR, treat with nebs and reassess.
--- NOTE | 2019-12-11 08:18 | PDOC ---
History of Present Illness - General Chief Complaint: Wheezing Stated Complaint: ASTHMA Time Seen by Provider: 12/11/19 08:14 History Source: Patient Exam Limitations: No Limitations - History of Present Illness Initial Comments: 12/11/19 08:18 59y F with PMH of Nonischemic Cardiomyopathy (s/p pacemaker), CHF, COPD/Asthma, HTN, CKD, HLD presenting to the ED with complaints of SOB and chest tightness since yesterday. Pt states she was laying in her bed when she started to feel this way. She endorses dry cough and ARNOLD more than rest. Denies leg swelling, abdominal pain, n/v/d, headache, fever, chills. States she uses 4 pillows to sleep. Echo 10/2019 showed LVEF 20-25% PMD: Suni Lanza Cardio: Jesica Pulm: Jesus PMH: see hpi PSH: hysterectomy, cardiac cath Meds: see med rec Allergies: see allergy list Social: denies Past History - Past Medical History Allergies/Adverse Reactions: Allergies Allergy/AdvReac Type Severity Reaction Status Date / Time tomato Allergy Mild Hives Verified 11/02/19 17:11 chlorpheniramine Allergy Verified 11/02/19 17:11 cimetidine Allergy Verified 11/02/19 17:11 codeine [Codeine] Allergy Verified 11/02/19 17:11 ibuprofen Allergy Verified 11/02/19 17:11 latex [Latex] Allergy Verified 11/02/19 17:11 Latex, Natural Rubber Allergy Verified 11/02/19 17:11 pseudoephedrine Allergy Verified 11/02/19 17:11 salmeterol xinafoate Allergy Verified 11/02/19 17:11 [From Advair Diskus] shellfish derived Allergy Verified 11/02/19 17:11 Sulfa (Sulfonamide Allergy Verified 11/02/19 17:11 Antibiotics) [Sulfa(Sulfonamide Antibiotics)] Chocolate Allergy Mild Hives Uncoded 11/02/19 17:11 shrimp Allergy Mild Hives Uncoded 11/02/19 17:11 Home Medications: Ambulatory Orders Atorvastatin Ca [Lipitor] 40 mg PO HS 08/09/16 Insulin Glargine,Hum.rec.anlog [Lantus Solostar PEN -] 20 units SQ AM 08/09/16 Budesonide/Formeterol Fumarate [SYMBICORT 160/4.5mcg -] 2 puff PO BID 10/14/16 Linagliptin/Metformin HCl [Jentadueto 2.5 mg-1000 mg Tab] 1 tab PO BID 10/14/16 Albuterol 2.5/Ipratropium 0.5 [Duoneb -] 1 amp NEB Q6H PRN #90 amp 05/21/19 Levothyroxine [Synthroid -] 75 mcg PO DAILY #30 tablet 05/21/19 Dexlansoprazole [Dexilant -] 60 mg PO DAILY 08/13/19 Gabapentin [Neurontin -] 300 mg PO TID 08/13/19 Insulin Glargine,Hum.rec.anlog [Lantus Solostar PEN -] 10 units SQ HS 08/13/19 Metoprolol Succinate [Toprol XL -] 25 mg PO DAILY 10/10/19 Apixaban [Eliquis -] 5 mg PO BID 11/02/19 Dexlansoprazole [Dexilant -] 60 mg PO DAILY 11/02/19 Docusate Sodium [Colace -] 100 mg PO BID 11/02/19 Duloxetine HCl [Cymbalta] 30 mg PO DAILY 11/02/19 Linaclotide [Linzess] 290 mcg PO DAILY 11/02/19 Metoclopramide HCl [Reglan] 5 mg PO BID 11/02/19 Sacubitril/Valsartan [Entresto 24 mg-26 mg Tablet] 1 each PO ASDIR 11/02/19 Furosemide [Lasix -] 20 mg PO DAILY #30 tablet 11/06/19 Spironolactone [Aldactone -] 50 mg PO DAILY #30 tablet 11/06/19 Anemia: Yes Asthma: Yes Cancer: No Cardiac Disorders: Yes (PR X 2, pacemaker) CVA: No COPD: Yes CHF: Yes (S/P ICD) DVT: No Dementia: No Diabetes: Yes GI Disorders: Yes (PEPTIC ULCER) Disorders: No HTN: Yes Hypercholesterolemia: Yes Liver Disease: No Psychiatric Problems: Yes (DEPRESSION) Seizures: No Thyroid Disease: Yes - Surgical History Abdominal Surgery: Yes Appendectomy: No Cardiac Surgery: Yes (pacemaker and stents) Cholecystectomy: Yes GI Surgery: Yes (CHOLECYSTECTOMY, HYSTERECTOMY) Lung Surgery: No Neurologic Surgery: No Orthopedic Surgery: Yes (bilateral knee replacement) - Immunization History Immunization Up to Date: No - Psycho Social/Smoking Cessation Hx Smoking Status: No Smoking History: Unknown if ever smoked Have you smoked in the past 12 months: No Number of Cigarettes Smoked Daily: 0 Information on smoking cessation initiated: No Hx Alcohol Use: No Drug/Substance Use Hx: No Substance Use Type: None Hx Substance Use Treatment: No Review of Systems - Review of Systems Constitutional: No: Symptoms Reported HEENTM: No: Symptoms Reported Respiratory: Yes: See HPI Cardiac (ROS): Yes: See HPI ABD/GI: No: Symptoms Reported : No: Symptoms Reported Musculoskeletal: No: Symptoms Reported Integumentary: No: Symptoms Reported Neurological: No: Symptoms reported *Physical Exam - Vital Signs Last Vital Signs Temp Pulse Resp BP Pulse Ox 98.9 F 117 H 22 H 115/98 97 12/11/19 07:52 12/11/19 07:52 12/11/19 07:52 12/11/19 07:52 12/11/19 07:52 - Physical Exam General Appearance: Yes: Appropriately Dressed, Mild Distress, Obese HEENT: positive: EOMI, ZAC, Normal ENT Inspection Neck: positive: Trachea midline, Supple Respiratory/Chest: positive: Labored Respiration, Rhonchi, Wheezing. negative: Respiratory Distress, Accessory Muscle Use, Rapid RR, Decreased Breath Sounds, Crackles, Rales, Stridor Cardiovascular: positive: Regular Rhythm, Regular Rate, S1, S2. negative: Edema , JVD, Murmur Vascular Pulses: Dorsalis-Pedis (R): 2+, Doralis-Pedis (L): 2+ Gastrointestinal/Abdominal: positive: Normal Bowel Sounds, Soft, Other (large surgical scar lower abdomen). negative: Tender Musculoskeletal: negative: CVA Tenderness Extremity: positive: Normal Capillary Refill. 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 chf v. acs. low suspicion for pe; pt on apixaban trop at baseline. cxr; no effusion, some cephalization. no pedal edema given breathing treatments and solumedrol. pt still feels same. elevated bnp. ekg; sinus tachycardia at 103. pvcs. LBBB seen in prior ekgs. lasix given; pt feeling better at reevaluation given breathing treatments. in setting of sob and medical history, will admit for chf. endorsed to Dr. Lewis Discharge - Discharge Information Problems reviewed: Yes Clinical Impression/Diagnosis: CHF exacerbation Qualifiers: Heart failure type: systolic Qualified Code(s): I50.23 - Acute on chronic systolic (congestive) heart failure Condition: Stable - Admission Yes - Follow up/Referral - Patient Discharge Instructions - Post Discharge Activity
[2019-12-11] MEDS ORDERED: methylPREDNISolone NA SUCC 125 MG/2 ML VIAL IVPUSH ONE (09:04)
[2019-12-11] MEDS ORDERED: ALBUTEROL SO4 2.5/IPRATROPIUM 0.5 INH SOL 3 ML VIAL.NEB. NEB ONE ×2 (09:04→09:15)
[2019-12-11 09:14] LABS: EOS % 1.3 % (0-4.5); HEMATOCRIT 36.6 % (32.4-45.2); HEMOGLOBIN 11.6 GM/dL (10.7-15.3); LYMPH % 27.2 % (8-40); MCHC 31.7 g/dl (32.0-36.0); MEAN PLT VOLUME 8.9 fl (7.5-11.1); MONO % 4.4 % (3.8-10.2); NEUT % 66.1 % (42.8-82.8); PLATELET COUNT 307 K/MM3 (134-434); RBC 4.46 M/mm3 (3.60-5.2); RDW 17.3 % (11.6-15.6); WHITE BLOOD COUNT 7.5 K/mm3 (4.0-10.0)
[2019-12-11] MEDS ORDERED: methylPREDNISolone NA SUCC 125 MG/2 ML VIAL ONE (09:15)
[2019-12-11 09:23] LABS: INR 1.23 (0.83-1.09); PROTHROMBIN TIME (PATIENT) 14.6 SEC (9.7-13.0)
[2019-12-11 09:40] LABS: ALBUMIN 3.7 g/dl (3.4-5.0); BILIRUBIN,TOTAL 0.3 mg/dL (0.2-1); BLOOD UREA NITROGEN 12.6 mg/dL (7-18); CALCIUM 9.4 mg/dL (8.5-10.1); CREATININE 1.2 mg/dL (0.55-1.3); MAGNESIUM 1.8 mg/dL (1.8-2.4); POTASSIUM 3.9 mmol/L (3.5-5.1); TOT PROT 7.8 g/dl (6.4-8.2)
[2019-12-11 10:23] LABS: N-TERMINAL BNP 1510.9 pg/ml (5-125)
[2019-12-11] MEDS ORDERED: FUROSEMIDE 40 MG/4 ML INJECTABLE VIAL IVPUSH ONE (10:27)
[2019-12-11] MEDS ORDERED: FUROSEMIDE 40 MG/4 ML INJECTABLE VIAL ONE (10:40)
--- NOTE | 2019-12-11 15:08 | EKG ---
Test Reason : Blood Pressure : / mmHG Vent. Rate : 103 BPM Atrial Rate : 103 BPM P-R Int : 138 ms QRS Dur : 126 ms QT Int : 402 ms P-R-T Axes : 046 -21 091 degrees QTc Int : 526 ms SINUS TACHYCARDIA WITH OCCASIONAL PREMATURE VENTRICULAR COMPLEXES LEFT BUNDLE BRANCH BLOCK ABNORMAL ECG WHEN COMPARED WITH ECG OF 02-NOV-2019 18:02, PREMATURE VENTRICULAR COMPLEXES ARE NOW PRESENT LEFT BUNDLE BRANCH BLOCK IS NOW PRESENT Confirmed by DEMARCUS MILLER, YUDI ([id number]) on 12/11/2019 3:08:25 PM Referred By: Confirmed By:YUDI TRACY MD
--- NOTE | 2019-12-11 17:42 | CONSULT ---
Consult Consult Specialty:: Nephrology Reason for Consultation:: fluid management - History of Present Illness Chief Complaint: shortness of breath History of Present Illness: Pt is a 59 year old female with pmxh of ckd, chf, copd, htn and asthma who presents to the ER with shortness of breath. She says that she started to feel it while she was laying down. She complains of cough. I was called to assist with volume status. She missed her last office appointment. Her volume status had been difficult to control. She was comfortable with 20 mg of lasix at home. She denies lower ext edema. She denies dysuria. - History Source History Provided By: Patient, Medical Record - Past Medical History Cardio/Vascular: Yes: CHF, HTN, Hyperlipdemia Pulmonary: Yes: Asthma, Sleep Apnea Endocrine: Yes: Diabetes Mellitus, Hypothyroidism - Past Surgical History Past Surgical History: Yes: Cholecystectomy, Joint Replacement (left tkr), Permanent Pacemaker (ICD) - Alcohol/Substance Use Hx Alcohol Use: No - Smoking History Smoking history: Unknown if ever smoked Have you smoked in the past 12 months: No Aproximately how many cigarettes per day: 0 - Social History Usual Living Arrangement: With Spouse ADL: Independent History of Recent Travel: No Home Medications - Allergies Allergies/Adverse Reactions: Allergies Allergy/AdvReac Type Severity Reaction Status Date / Time tomato Allergy Mild Hives Verified 11/02/19 17:11 chlorpheniramine Allergy Verified 11/02/19 17:11 cimetidine Allergy Verified 11/02/19 17:11 codeine [Codeine] Allergy Verified 11/02/19 17:11 ibuprofen Allergy Verified 11/02/19 17:11 latex [Latex] Allergy Verified 11/02/19 17:11 Latex, Natural Rubber Allergy Verified 11/02/19 17:11 pseudoephedrine Allergy Verified 11/02/19 17:11 salmeterol xinafoate Allergy Verified 11/02/19 17:11 [From Advair Diskus] shellfish derived Allergy Verified 11/02/19 17:11 Sulfa (Sulfonamide Allergy Verified 11/02/19 17:11 Antibiotics) [Sulfa(Sulfonamide Antibiotics)] Chocolate Allergy Mild Hives Uncoded 11/02/19 17:11 shrimp Allergy Mild Hives Uncoded 11/02/19 17:11 - Home Medications Home Medications: Ambulatory Orders Atorvastatin Ca [Lipitor] 40 mg PO HS 08/09/16 Insulin Glargine,Hum.rec.anlog [Lantus Solostar PEN -] 20 units SQ AM 08/09/16 Budesonide/Formeterol Fumarate [SYMBICORT 160/4.5mcg -] 2 puff PO BID 10/14/16 Linagliptin/Metformin HCl [Jentadueto 2.5 mg-1000 mg Tab] 1 tab PO BID 10/14/16 Albuterol 2.5/Ipratropium 0.5 [Duoneb -] 1 amp NEB Q6H PRN #90 amp 05/21/19 Levothyroxine [Synthroid -] 75 mcg PO DAILY #30 tablet 05/21/19 Dexlansoprazole [Dexilant -] 60 mg PO DAILY 08/13/19 Gabapentin [Neurontin -] 300 mg PO TID 08/13/19 Insulin Glargine,Hum.rec.anlog [Lantus Solostar PEN -] 10 units SQ HS 08/13/19 Metoprolol Succinate [Toprol XL -] 25 mg PO DAILY 10/10/19 Apixaban [Eliquis -] 5 mg PO BID 11/02/19 Dexlansoprazole [Dexilant -] 60 mg PO DAILY 11/02/19 Docusate Sodium [Colace -] 100 mg PO BID 11/02/19 Duloxetine HCl [Cymbalta] 30 mg PO DAILY 11/02/19 Linaclotide [Linzess] 290 mcg PO DAILY 11/02/19 Metoclopramide HCl [Reglan] 5 mg PO BID 11/02/19 Sacubitril/Valsartan [Entresto 24 mg-26 mg Tablet] 1 each PO ASDIR 11/02/19 Furosemide [Lasix -] 20 mg PO DAILY #30 tablet 11/06/19 Spironolactone [Aldactone -] 50 mg PO DAILY #30 tablet 11/06/19 Family Medical History Family History: Denies Review of Systems - Review of Systems Constitutional: reports: Malaise Eyes: reports: No Symptoms HENT: reports: No Symptoms Neck: reports: No Symptoms Cardiovascular: reports: Edema, Shortness of Breath Respiratory: reports: Cough, SOB on Exertion Genitourinary: reports: No Symptoms Musculoskeletal: reports: No Symptoms Integumentary: reports: No Symptoms Neurological: reports: No Symptoms Endocrine: reports: No Symptoms Hematology/Lymphatic: reports: No Symptoms Psychiatric: reports: No Symptoms Physical Exam Vital Signs: Vital Signs Temperature 98.6 F 12/11/19 16:05 Pulse Rate 87 12/11/19 17:32 Respiratory Rate 18 12/11/19 17:32 Blood Pressure 98/56 L 12/11/19 17:32 O2 Sat by Pulse Oximetry (%) 98 12/11/19 17:32 Constitutional: Yes: Calm Eyes: Yes: Conjunctiva Clear HENT: Yes: Atraumatic Neck: Yes: Supple Cardiovascular: Yes: S1, S2 Respiratory: Yes: CTA Bilaterally Gastrointestinal: Yes: Normal Bowel Sounds, Soft, Abdomen, Obese Musculoskeletal: Yes: WNL Edema: No Neurological: Yes: Oriented Psychiatric: Yes: Oriented Labs: CBC, BMP 12/11/19 08:57 12/11/19 08:57 Imaging - Results Chest X-ray: Report Reviewed Problem List - Problems (1) Dyspnea Code(s): R06.00 - DYSPNEA, UNSPECIFIED Assessment/Plan Laboratory Tests 12/11/19 12/11/19 08:57 08:57 Creatinine 1.2 B-Natriuretic Peptide 1551.0 H 1510.9 H Impression 1. ckd 2. dyspnea 3. asthma 4. chf 5. obesity 6. hypotension 7. a-fib Plan - can resume home dose of lasix - repeat labs in am - she does not seem fluid overloaded - monitor weights - 2 gram sodium diet
[2019-12-11 18:18] VITALS: BMI 42.3
[2019-12-11] MEDS ORDERED: ALBUTEROL SO4 2.5/IPRATROPIUM 0.5 INH SOL 3 ML VIAL.NEB. NEB PRN (23:03)
--- NOTE | 2019-12-11 23:03 | HP ---
Admitting History and Physical - Admission History of Present Illness: Pt is a 59 y/o female with PMH of Nonischemic Cardiomyopathy (s/p pacemaker), CHF, COPD/Asthma, HTN, CKD, HLD, hypothyroidism who now presented to the ED with complaints of SOB and chest tightness for about 24 hrs. Pt states she was laying in her bed when she started to feel this way. She also complains of a dry cough and ARNOLD even at rest. In the ER pt found to have elevated BNP and CXR was unremarkable. - Past Medical History Cardiovascular: Yes: CHF, HTN, Hyperlipdemia Pulmonary: Yes: Asthma, Sleep Apnea Renal/: Yes: Renal Failure Endocrine: Yes: Diabetes Mellitus, Hypothyroidism - Past Surgical History Past Surgical History: Yes: Cholecystectomy, Joint Replacement (left tkr), Permanent Pacemaker (ICD) - Smoking History Smoking history: Unknown if ever smoked Have you smoked in the past 12 months: No Aproximately how many cigarettes per day: 0 - Alcohol/Substance Use Hx Alcohol Use: No - Social History ADL: Independent History of Recent Travel: No Home Medications - Allergies Allergies/Adverse Reactions: Allergies Allergy/AdvReac Type Severity Reaction Status Date / Time tomato Allergy Mild Hives Verified 11/02/19 17:11 chlorpheniramine Allergy Verified 11/02/19 17:11 cimetidine Allergy Verified 11/02/19 17:11 codeine [Codeine] Allergy Verified 11/02/19 17:11 ibuprofen Allergy Verified 11/02/19 17:11 latex [Latex] Allergy Verified 11/02/19 17:11 Latex, Natural Rubber Allergy Verified 11/02/19 17:11 pseudoephedrine Allergy Verified 11/02/19 17:11 salmeterol xinafoate Allergy Verified 11/02/19 17:11 [From Advair Diskus] shellfish derived Allergy Verified 11/02/19 17:11 Sulfa (Sulfonamide Allergy Verified 11/02/19 17:11 Antibiotics) [Sulfa(Sulfonamide Antibiotics)] Chocolate Allergy Mild Hives Uncoded 11/02/19 17:11 shrimp Allergy Mild Hives Uncoded 11/02/19 17:11 - Home Medications Home Medications: Ambulatory Orders Atorvastatin Ca [Lipitor] 40 mg PO HS 08/09/16 Insulin Glargine,Hum.rec.anlog [Lantus Solostar PEN -] 20 units SQ AM 08/09/16 Budesonide/Formeterol Fumarate [SYMBICORT 160/4.5mcg -] 2 puff PO BID 10/14/16 Albuterol 2.5/Ipratropium 0.5 [Duoneb -] 1 amp NEB Q6H PRN #90 amp 05/21/19 Levothyroxine [Synthroid -] 75 mcg PO DAILY #30 tablet 05/21/19 Dexlansoprazole [Dexilant -] 60 mg PO DAILY 08/13/19 Insulin Glargine,Hum.rec.anlog [Lantus Solostar PEN -] 10 units SQ HS 08/13/19 Metoprolol Succinate [Toprol XL -] 25 mg PO DAILY 10/10/19 Apixaban [Eliquis -] 5 mg PO BID 11/02/19 Dexlansoprazole [Dexilant -] 60 mg PO DAILY 11/02/19 Duloxetine HCl [Cymbalta] 30 mg PO DAILY 11/02/19 Linaclotide [Linzess] 290 mcg PO DAILY 11/02/19 Sacubitril/Valsartan [Entresto 24 mg-26 mg Tablet] 1 each PO ASDIR 11/02/19 Furosemide [Lasix -] 20 mg PO DAILY #30 tablet 11/06/19 Spironolactone [Aldactone -] 50 mg PO DAILY #30 tablet 11/06/19 Family Medical History Family History: Unremarkable Review of Systems - Review of Systems Constitutional: reports: No Symptoms Eyes: reports: No Symptoms HENT: reports: No Symptoms Neck: reports: No Symptoms Cardiovascular: reports: Chest Pain, Shortness of Breath Respiratory: reports: Cough, SOB Gastrointestinal: reports: No Symptoms Genitourinary: reports: No Symptoms Physical Examination Vital Signs: Vital Signs Temperature 98.5 F 12/11/19 20:57 Pulse Rate 100 H 12/11/19 20:57 Respiratory Rate 18 12/11/19 20:57 Blood Pressure 133/93 12/11/19 20:57 O2 Sat by Pulse Oximetry (%) 99 12/11/19 20:57 Constitutional: Yes: Well Nourished Neck: Yes: WNL, Supple Cardiovascular: Yes: WNL, Regular Rate and Rhythm Respiratory: Yes: Diminished Gastrointestinal: Yes: WNL, Normal Bowel Sounds, Soft Extremities: Yes: WNL Edema: No Neurological: Yes: WNL, Alert, Oriented ...Motor Strength: WNL Labs: CBC, BMP 12/11/19 08:57 12/11/19 08:57 Problem List - Problems (1) Dyspnea Assessment/Plan: Acute CHF vs Asthma exacerbation Cardio/pulmonary consults Code(s): R06.00 - DYSPNEA, UNSPECIFIED (2) Acute on chronic systolic and diastolic heart failure, NYHA class 3 Assessment/Plan: Pt given dose of IV lasix in ER Cont lasix Code(s): I50.43 - ACUTE ON CHRONIC COMBINED SYSTOLIC AND DIASTOLIC HRT FAIL (3) Asthma exacerbation Assessment/Plan: IV solumedrol Cont inhalers Code(s): J45.901 - UNSPECIFIED ASTHMA WITH (ACUTE) EXACERBATION Qualifiers: Asthma severity: moderate Asthma persistence: unspecified Qualified Code( s): J45.901 - Unspecified asthma with (acute) exacerbation (4) CAD (coronary artery disease) Code(s): I25.10 - ATHSCL HEART DISEASE OF [place] CORONARY ARTERY W/O ANG PCTRS (5) Cardiomyopathy Code(s): I42.9 - CARDIOMYOPATHY, UNSPECIFIED (6) Diabetes Assessment/Plan: Cont sliding scale w/ coverage Code(s): E11.9 - TYPE 2 DIABETES MELLITUS WITHOUT COMPLICATIONS Qualifiers: Diabetes mellitus type: type 2 (7) Hyperlipidemia Assessment/Plan: Cont lipitor Code(s): E78.5 - HYPERLIPIDEMIA, UNSPECIFIED (8) Hypertension Assessment/Plan: Bp stable Cont metoprolol Code(s): I10 - ESSENTIAL (PRIMARY) HYPERTENSION Qualifiers: Hypertension type: essential hypertension Qualified Code(s): I10 - Essential (primary) hypertension (9) Hypothyroidism Assessment/Plan: Cont levothyroxine Code(s): E03.9 - HYPOTHYROIDISM, UNSPECIFIED (10) ICD (implantable cardioverter-defibrillator) in place Code(s): Z95.810 - PRESENCE OF AUTOMATIC (IMPLANTABLE) CARDIAC DEFIBRILLATOR (11) Paroxysmal A-fib Assessment/Plan: Heart rate stable Cont eliquis/metoprolol Code(s): I48.0 - PAROXYSMAL ATRIAL FIBRILLATION (12) Troponin level elevated Assessment/Plan: Due to demand ischemia Code(s): R79.89 - OTHER SPECIFIED ABNORMAL FINDINGS OF BLOOD CHEMISTRY
[2019-12-12] MEDS: methylPREDNISolone NA SUCC 40 MG/1 ML VIAL IVPUSH SCH ×2 (02:17→10:36)
[2019-12-12] MEDS: LEVOTHYROXINE NA 75 MCG TABLET (FP) PO SCH (06:38)
[2019-12-12 07:28] LABS: BLOOD UREA NITROGEN 22.9 mg/dL (7-18); CALCIUM 9.9 mg/dL (8.5-10.1); CREATININE 1.3 mg/dL (0.55-1.3); POTASSIUM 4.7 mmol/L (3.5-5.1)
[2019-12-12] MEDS ORDERED: SPIRONOLACTONE 25 MG TABLET (FP) PO SCH (10:00)
[2019-12-12] MEDS: FUROSEMIDE 20 MG TABLET (FP) PO SCH (10:36)
[2019-12-12] MEDS: SACUBITRIL/VALSARTAN 24 MG-26 MG TABLET PO SCH ×2 (10:36→22:21)
[2019-12-12] MEDS: DULoxetine HCL 30 MG CAPSULE.DR PO SCH ×2 (10:36→10:41)
[2019-12-12] MEDS: SPIRONOLACTONE 25 MG TABLET (FP) PO SCH (10:36)
[2019-12-12] MEDS: APIXABAN 5 MG TABLET PO SCH ×2 (10:36→22:21)
[2019-12-12] MEDS: metoPROLOL SUCCINATE 25 MG TAB.SR.24H (FP) PO SCH (10:36)
--- NOTE | 2019-12-12 11:31 | CON.PULM ---
Consult Consult Specialty:: PULMONARY Referred by:: PMD Reason for Consultation:: SOB - History of Present Illness Chief Complaint: SOB History of Present Illness: 59y F with PMH of Nonischemic Cardiomyopathy (s/p pacemaker), CHF, COPD/Asthma, HTN, CKD, HLD presenting to the ED with complaints of SOB and chest tightness since yesterday. Pt states she was laying in her bed when she started to feel this way. She endorses dry cough and ARNOLD more than rest. Denies leg swelling, abdominal pain, n/v/d, headache, fever, chills. States she uses 4 pillows to sleep. 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 Cardio/Vascular: Yes: CHF, HTN, Hyperlipdemia Pulmonary: Yes: Asthma, Sleep Apnea Gastrointestinal: No: Ascites Hepatobiliary: No: Cirrhosis Renal/: No: Renal Failure Reproductive: Yes: Postmenopausal ...: No Endocrine: Yes: Diabetes Mellitus, Hypothyroidism - Past Surgical History Past Surgical History: Yes: Cholecystectomy, Joint Replacement (left tkr), Permanent Pacemaker (ICD) - Alcohol/Substance Use Hx Alcohol Use: No - Smoking History Smoking history: Unknown if ever smoked Have you smoked in the past 12 months: No Aproximately how many cigarettes per day: 0 - Social History Usual Living Arrangement: With Spouse ADL: Independent History of Recent Travel: No Home Medications - Allergies Allergies/Adverse Reactions: Allergies Allergy/AdvReac Type Severity Reaction Status Date / Time tomato Allergy Mild Hives Verified 11/02/19 17:11 chlorpheniramine Allergy Verified 11/02/19 17:11 cimetidine Allergy Verified 11/02/19 17:11 codeine [Codeine] Allergy Verified 11/02/19 17:11 ibuprofen Allergy Verified 11/02/19 17:11 latex [Latex] Allergy Verified 11/02/19 17:11 Latex, Natural Rubber Allergy Verified 11/02/19 17:11 pseudoephedrine Allergy Verified 11/02/19 17:11 salmeterol xinafoate Allergy Verified 11/02/19 17:11 [From Advair Diskus] shellfish derived Allergy Verified 11/02/19 17:11 Sulfa (Sulfonamide Allergy Verified 11/02/19 17:11 Antibiotics) [Sulfa(Sulfonamide Antibiotics)] Chocolate Allergy Mild Hives Uncoded 11/02/19 17:11 shrimp Allergy Mild Hives Uncoded 11/02/19 17:11 - Home Medications Home Medications: Ambulatory Orders Atorvastatin Ca [Lipitor] 40 mg PO HS 08/09/16 Insulin Glargine,Hum.rec.anlog [Lantus Solostar PEN -] 20 units SQ AM 08/09/16 Budesonide/Formeterol Fumarate [SYMBICORT 160/4.5mcg -] 2 puff PO BID 10/14/16 Albuterol 2.5/Ipratropium 0.5 [Duoneb -] 1 amp NEB Q6H PRN #90 amp 05/21/19 Levothyroxine [Synthroid -] 75 mcg PO DAILY #30 tablet 05/21/19 Dexlansoprazole [Dexilant -] 60 mg PO DAILY 08/13/19 Insulin Glargine,Hum.rec.anlog [Lantus Solostar PEN -] 10 units SQ HS 08/13/19 Metoprolol Succinate [Toprol XL -] 25 mg PO DAILY 10/10/19 Apixaban [Eliquis -] 5 mg PO BID 11/02/19 Dexlansoprazole [Dexilant -] 60 mg PO DAILY 11/02/19 Duloxetine HCl [Cymbalta] 30 mg PO DAILY 11/02/19 Linaclotide [Linzess] 290 mcg PO DAILY 11/02/19 Sacubitril/Valsartan [Entresto 24 mg-26 mg Tablet] 1 each PO ASDIR 11/02/19 Furosemide [Lasix -] 20 mg PO DAILY #30 tablet 11/06/19 Spironolactone [Aldactone -] 50 mg PO DAILY #30 tablet 11/06/19 Family Medical History Family History: Unremarkable Review of Systems - Review of Systems Constitutional: denies: Fever Eyes: denies: Blurred Vision HENT: denies: Difficult Swallowing Neck: denies: Decreased ROM Cardiovascular: reports: Shortness of Breath. denies: Chest Pain Respiratory: reports: Exercise Intolerance, Orthopnea, SOB on Exertion Gastrointestinal: denies: Abdominal Pain Genitourinary: denies: Burning Physical Exam Vital Sings: Vital Signs Temperature 98.0 F 12/12/19 06:00 Pulse Rate 93 H 12/12/19 06:00 Respiratory Rate 20 12/12/19 06:00 Blood Pressure 132/88 12/12/19 06:00 O2 Sat by Pulse Oximetry (%) 99 12/11/19 20:57 Constitutional: Yes: Calm Eyes: Yes: EOM Intact HENT: Yes: Normocephalic Neck: Yes: Trachea Midline Cardiovascular: Yes: S1, S2 Respiratory: Yes: Rales (B/L BASES) Gastrointestinal: Yes: Normal Bowel Sounds, Abdomen, Obese Extremities: Yes: WNL Edema: No Labs: CBC, BMP 12/11/19 08:57 12/12/19 06:20 Imaging - Results Chest X-ray: Report Reviewed, Image Reviewed EKG: Report Reviewed, Image Reviewed Problem List - Problems (1) CHF exacerbation Code(s): I50.9 - HEART FAILURE, UNSPECIFIED Qualifiers: Heart failure type: systolic Qualified Code(s): I50.23 - Acute on chronic systolic (congestive) heart failure (2) Dyspnea Code(s): R06.00 - DYSPNEA, UNSPECIFIED (3) COPD (chronic obstructive pulmonary disease) Code(s): J44.9 - CHRONIC OBSTRUCTIVE PULMONARY DISEASE, UNSPECIFIED Qualifiers: COPD type: chronic bronchitis Chronic bronchitis type: unspecified Qualified Code(s): J42 - Unspecified chronic bronchitis Assessment/Plan LIKELY A/E CHF COPD/CKD/HLD AGREE WITH MEDICAL MANAGEMENT FOR ISCHEMIC CARDIOMYOPATHY WOULD CONTINUE RX FOR COPD/ LIKELY OSAS/WOULD NEED PSG IF NOT ALREADY DONE AN OUTPATIENT STOP STEROIDS/DAILY WEIGHTS/MONITOR I/O'S RENAL CONSULT REVIEWED WOULD CARDIO TO RENDER AN OPINION Vipul MIRELES MD
[2019-12-12] MEDS: BUDESONIDE/FORMETEROL FUMARATE 160/4.5 mcg INHALER IH SCH ×2 (12:02→22:23)
--- NOTE | 2019-12-12 12:03 | CON.CARD ---
Cardiology Consult (text) - Consultation Consultation Note: Consult Specialty:: cardio - History of Present Illness Chief Complaint: short of breath History of Present Illness: 59 F here with cough, short of breath. Has multiple sick contacts and then felt cough, cold symptoms with congestion for the last few days. A few days ago took a dose of dayquil and had palpitations, congestion improved. Not taking dayquil anymore. Has had stable short of breath which worsened yesterday , came to ER. No chest pain, edema, syncope, dizziness. Stable orthopnea, sleeps on 4 pillows. Taking lasix 20 mg daily as prescribed. PMH: DM, HTN, COPD, syst CHF, hypothyroidism hashimotos, CKD, Afib, nonischemic cardiomyopathy (s/p permanent pacemaker), OA - Past Medical History Cardio/Vascular: Yes: CHF, HTN, Hyperlipdemia Pulmonary: Yes: Asthma, Sleep Apnea ...: No Endocrine: Yes: Diabetes Mellitus, Hypothyroidism - Past Surgical History Past Surgical History: Yes: Cholecystectomy, Joint Replacement (left tkr), Permanent Pacemaker (ICD) - Alcohol/Substance Use Hx Alcohol Use: No - Smoking History Smoking history: Former smoker Have you smoked in the past 12 months: No Aproximately how many cigarettes per day: 0 - Social History Usual Living Arrangement: With Spouse ADL: Independent History of Recent Travel: No Home Medications - Allergies Allergies/Adverse Reactions: Allergies Allergy/AdvReac Type Severity Reaction Status Date / Time tomato Allergy Mild Hives Verified 11/02/19 17:11 chlorpheniramine Allergy Verified 11/02/19 17:11 cimetidine Allergy Verified 11/02/19 17:11 codeine [Codeine] Allergy Verified 11/02/19 17:11 ibuprofen Allergy Verified 11/02/19 17:11 latex [Latex] Allergy Verified 11/02/19 17:11 Latex, Natural Rubber Allergy Verified 11/02/19 17:11 pseudoephedrine Allergy Verified 11/02/19 17:11 salmeterol xinafoate Allergy Verified 11/02/19 17:11 [From Advair Diskus] shellfish derived Allergy Verified 11/02/19 17:11 Sulfa (Sulfonamide Allergy Verified 11/02/19 17:11 Antibiotics) [Sulfa(Sulfonamide Antibiotics)] Chocolate Allergy Mild Hives Uncoded 11/02/19 17:11 shrimp Allergy Mild Hives Uncoded 11/02/19 17:11 Home Medications Medication Instructions Recorded Atorvastatin Ca [Lipitor] 40 mg PO HS 08/09/16 Insulin Glargine,Hum.rec.anlog 20 units SQ AM 08/09/16 [Lantus Solostar PEN -] Budesonide/Formeterol Fumarate 2 puff PO BID 10/14/16 [SYMBICORT 160/4.5mcg -] Albuterol 2.5/Ipratropium 0.5 1 amp NEB Q6H PRN #90 amp 05/21/19 [Duoneb -] Levothyroxine [Synthroid -] 75 mcg PO DAILY #30 tablet 05/21/19 Dexlansoprazole [Dexilant -] 60 mg PO DAILY 08/13/19 Insulin Glargine,Hum.rec.anlog 10 units SQ HS 08/13/19 [Lantus Solostar PEN -] Metoprolol Succinate [Toprol XL -] 25 mg PO DAILY 10/10/19 Apixaban [Eliquis -] 5 mg PO BID 11/02/19 Dexlansoprazole [Dexilant -] 60 mg PO DAILY 11/02/19 Duloxetine HCl [Cymbalta] 30 mg PO DAILY 11/02/19 Linaclotide [Linzess] 290 mcg PO DAILY 11/02/19 Sacubitril/Valsartan [Entresto 24 1 each PO ASDIR 11/02/19 mg-26 mg Tablet] Furosemide [Lasix -] 20 mg PO DAILY #30 tablet 11/06/19 Spironolactone [Aldactone -] 50 mg PO DAILY #30 tablet 11/06/19 Family Medical History Family History: Denies (no known cmp) Review of Systems - Review of Systems Constitutional: denies: Chills, Fever Eyes: denies: Eye Pain HENT: denies: Nasal Congestion Neck: denies: Stiffness Cardiovascular: denies: Palpitations Respiratory: reports: Orthopnea. denies: PND Gastrointestinal: denies: Diarrhea, Rectal Bleeding Genitourinary: denies: Burning, Hematuria Musculoskeletal: denies: Muscle Pain Integumentary: denies: Rash Neurological: denies: Numbness, Seizure, Syncope Endocrine: denies: Excessive Sweating Hematology/Lymphatic: denies: Excessive Bleeding Vital Signs Period Temp Pulse Resp BP Sys/Mcgrath Pulse Ox Last 24 Hr 98.0 F-98.8 F 87-100 18-20 92-133/55-93 95-100 Constitutional: Yes: Well Nourished, No Distress, Obese Eyes: No: Sclera Icterus HENT: No: Nasal Congestion Neck: No: Decreased ROM Respiratory: Yes: CTA Bilaterally. No: Accessory Muscle Use, Rales, Wheezes Gastrointestinal: Yes: Normal Bowel Sounds. No: Distention, Hepatomegaly, Palpable Mass, Tenderness Cardiovascular: Yes: Regular Rate and Rhythm JVD: No Carotid Bruit: No PMI: Non-Displaced Heart Sounds: Yes: S1, S2. No: Gallop Murmur: No: Systolic Murmur, Diastolic Murmur Musculoskeletal: Yes: Other (No kyphosis) Extremities: No: Cool, Cyanosis Edema: No Integumentary: No: Jaundice Neurological: Yes: Alert, Oriented (x3) Psychiatric: No: Agitated Laboratory Last Values WBC 7.5 K/mm3 (4.0-10.0) 12/11/19 08:57 RBC 4.46 M/mm3 (3.60-5.2) 12/11/19 08:57 Hgb 11.6 GM/dL (10.7-15.3) 12/11/19 08:57 Hct 36.6 % (32.4-45.2) 12/11/19 08:57 MCV 82.0 fl (80-96) 12/11/19 08:57 MCH 26.0 pg (25.7-33.7) 12/11/19 08:57 MCHC 31.7 g/dl (32.0-36.0) L 12/11/19 08:57 RDW 17.3 % (11.6-15.6) H 12/11/19 08:57 Plt Count 307 K/MM3 (134-434) D 12/11/19 08:57 MPV 8.9 fl (7.5-11.1) 12/11/19 08:57 Absolute Neuts (auto) 4.9 K/mm3 (1.5-8.0) 12/11/19 08:57 Neutrophils % 66.1 % (42.8-82.8) D 12/11/19 08:57 Lymphocytes % 27.2 % (8-40) D 12/11/19 08:57 Monocytes % 4.4 % (3.8-10.2) 12/11/19 08:57 Eosinophils % 1.3 % (0-4.5) 12/11/19 08:57 Basophils % 1.0 % (0-2.0) 12/11/19 08:57 Nucleated RBC % 0 % (0-0) 12/11/19 08:57 PT with INR 14.60 SEC (9.7-13.0) H 12/11/19 08:57 INR 1.23 (0.83-1.09) H 12/11/19 08:57 Sodium 136 mmol/L (136-145) 12/12/19 06:20 Potassium 4.7 mmol/L (3.5-5.1) 12/12/19 06:20 Chloride 101 mmol/L (98-107) 12/12/19 06:20 Carbon Dioxide 27 mmol/L (21-32) 12/12/19 06:20 Anion Gap 8 MMOL/L (8-16) 12/12/19 06:20 BUN 22.9 mg/dL (7-18) H 12/12/19 06:20 Creatinine 1.3 mg/dL (0.55-1.3) 12/12/19 06:20 Est GFR (CKD-EPI)AfAm 52.00 12/12/19 06:20 Est GFR (CKD-EPI)NonAf 44.87 12/12/19 06:20 POC Glucometer 360 UNITS (80-120) 12/12/19 11:06 Random Glucose 244 mg/dL (74-106) H 12/12/19 06:20 Calcium 9.9 mg/dL (8.5-10.1) 12/12/19 06:20 Magnesium 1.8 mg/dL (1.8-2.4) 12/11/19 08:57 Total Bilirubin 0.3 mg/dL (0.2-1) 12/11/19 08:57 AST 10 U/L (15-37) L 12/11/19 08:57 ALT 11 U/L (13-61) L 12/11/19 08:57 Alkaline Phosphatase 99 U/L (45-117) 12/11/19 08:57 Creatine Kinase 149 U/L (26-192) 12/12/19 06:20 Troponin I 0.12 ng/ml (0.00-0.05) H 12/12/19 06:20 B-Natriuretic Peptide 1551.0 pg/ml (5-125) H 12/11/19 08:57 Total Protein 7.8 g/dl (6.4-8.2) 12/11/19 08:57 Albumin 3.7 g/dl (3.4-5.0) 12/11/19 08:57 Assessment/Plan Cardiac Catheterization (non-obstructive CAD) echo 05/2019 tds, mildly dilated LV, severe global hypok, RV nl CXR: no congestion or effusion seen EKG: sinus, LBBB tele: sinus, PVCs shortness of breath, cough, bronchitis - may be asthma exacerbation in setting of recent URI - less likely CHF - weight lower than prior admissions, BNP 1500 however less than prior admissions as well (previously >3000), no congestion on CXR, appears euvolemic - manage per primary - cont home PO lasix elevated trop - indeterminate range, flat trend likely in setting of cardiomyopathy - less likely ACS chronic systolic HF, s/p ICD - recent RHC/LHC at [facility] reportedly no significant findings - CXR no congestion, appears euvolemic - cont entresto, spironolactone, metoprolol - cont PO lasix - outpatient ICD monitoring copd/asthma: - manage per primary HTN: - bp controlled paroxysmal afib - in sinus here--cont home bb - cont home eliquis for AC (5 bid) HLD - cont statin
[2019-12-12] MEDS: ALBUTEROL SO4 2.5/IPRATROPIUM 0.5 INH SOL 3 ML VIAL.NEB. NEB SCH ×2 (13:59→21:25)
--- NOTE | 2019-12-12 15:18 | PN ---
Progress Note, Physician History of Present Illness: Pt seen and examined at bedside. She is awake and alert. She denies shortness of breath. - Current Medication List Current Medications: Active Medications Albuterol/Ipratropium (Duoneb -) 1 amp NEB RTID [facility] Last Admin: 12/12/19 13:59 Dose: 1 amp Apixaban (Eliquis -) 5 mg PO BID [facility] Last Admin: 12/12/19 10:36 Dose: 5 mg Atorvastatin Calcium (Lipitor -) 40 mg PO [facility] Budesonide/Formoterol Fumarate (Symbicort 160/4.5mcg -) 2 puff IH BID [facility] Last Admin: 12/12/19 12:02 Dose: 2 puff Duloxetine HCl (Cymbalta -) 30 mg PO DAILY [facility] Last Admin: 12/12/19 10:41 Dose: Not Given Furosemide (Lasix -) 20 mg PO DAILY [facility] Last Admin: 12/12/19 10:36 Dose: 20 mg Insulin Aspart (Novolog Vial Sliding Scale -) 1 vial SQ [facility]; Protocol Levothyroxine Sodium (Synthroid -) 75 mcg PO ACBK [facility] Last Admin: 12/12/19 06:38 Dose: 75 mcg Metoprolol Succinate (Toprol Xl -) 25 mg PO DAILY [facility] Last Admin: 12/12/19 10:36 Dose: 25 mg Sacubitril/Valsartan (Entresto 24 Mg-26 Mg Tablet) 1 tab PO BID [facility] Last Admin: 12/12/19 10:36 Dose: 1 tab Spironolactone (Aldactone -) 25 mg PO DAILY [facility] Last Admin: 12/12/19 10:36 Dose: 25 mg - Objective Vital Signs: Vital Signs Temperature 98.4 F 12/12/19 10:00 Pulse Rate 106 H 12/12/19 10:00 Respiratory Rate 20 12/12/19 10:00 Blood Pressure 111/73 12/12/19 10:00 O2 Sat by Pulse Oximetry (%) 96 12/12/19 09:00 Constitutional: Yes: Calm Eyes: Yes: Conjunctiva Clear HENT: Yes: Atraumatic Neck: Yes: Supple Cardiovascular: Yes: S1, S2 Respiratory: Yes: CTA Bilaterally Gastrointestinal: Yes: Soft, Abdomen, Obese Musculoskeletal: Yes: WNL Edema: No Neurological: Yes: Oriented Psychiatric: Yes: Oriented Labs: CBC, BMP 12/11/19 08:57 12/12/19 06:20 INR, PTT INR 1.23 (0.83-1.09) H 12/11/19 08:57 Problem List - Problems (1) Dyspnea Code(s): R06.00 - DYSPNEA, UNSPECIFIED Assessment/Plan Current Medications Generic Name Dose Route Start Last Admin Trade Name Freq PRN Reason Stop Dose Admin Albuterol/Ipratropium 1 amp 12/12/19 14:00 12/12/19 13:59 Duoneb - NEB 1 amp RTID DOM Administration Apixaban 5 mg 12/12/19 10:00 12/12/19 10:36 Eliquis - PO 5 mg BID DOM Administration Atorvastatin Calcium 40 mg 12/12/19 22:00 Lipitor - PO HS DOM Budesonide/Formoterol Fumarate 2 puff 12/12/19 10:00 12/12/19 12:02 Symbicort 160/4.5mcg - IH 2 puff BID DOM Administration Duloxetine HCl 30 mg 12/12/19 10:00 12/12/19 10:41 Cymbalta - PO Not Given DAILY DOM Furosemide 20 mg 12/12/19 10:00 12/12/19 10:36 Lasix - PO 20 mg DAILY DOM Administration Insulin Aspart 1 vial 12/12/19 16:30 Novolog Vial Sliding Scale - SQ ACHS [facility] Protocol Levothyroxine Sodium 75 mcg 12/12/19 07:00 12/12/19 06:38 Synthroid - PO 75 mcg ACBK DOM Administration Metoprolol Succinate 25 mg 12/12/19 10:00 12/12/19 10:36 Toprol Xl - PO 25 mg DAILY DOM Administration Sacubitril/Valsartan 1 tab 12/12/19 10:00 12/12/19 10:36 Entresto 24 Mg-26 Mg Tablet PO 1 tab BID DOM Administration Spironolactone 25 mg 12/12/19 10:00 12/12/19 10:36 Aldactone - PO 25 mg DAILY DOM Administration Impression 1. ckd 2. dyspnea 3. asthma 4. chf 5. obesity 6. hypotension 7. a-fib Plan - cont home dose of diuretics - monitor renal function - repeat labs in am - volume status stable - cardio input appreciated - monitor weights - 2 gram sodium diet
[2019-12-12] MEDS: INSULIN SLIDING SCALE (NOVOLOG) 1 VIAL SQ SCH ×2 (17:27→22:22)
--- NOTE | 2019-12-12 19:57 | PN ---
Progress Note, Physician History of Present Illness: No new complaints - Current Medication List Current Medications: Active Medications Albuterol/Ipratropium (Duoneb -) 1 amp NEB RTID [facility] Last Admin: 12/12/19 13:59 Dose: 1 amp Apixaban (Eliquis -) 5 mg PO BID [facility] Last Admin: 12/12/19 10:36 Dose: 5 mg Atorvastatin Calcium (Lipitor -) 40 mg PO HS [facility] Budesonide/Formoterol Fumarate (Symbicort 160/4.5mcg -) 2 puff IH BID [facility] Last Admin: 12/12/19 12:02 Dose: 2 puff Duloxetine HCl (Cymbalta -) 30 mg PO DAILY [facility] Last Admin: 12/12/19 10:41 Dose: Not Given Furosemide (Lasix -) 20 mg PO DAILY [facility] Last Admin: 12/12/19 10:36 Dose: 20 mg Insulin Aspart (Novolog Vial Sliding Scale -) 1 vial SQ [facility]; Protocol Last Admin: 12/12/19 17:27 Dose: 12 units Levothyroxine Sodium (Synthroid -) 75 mcg PO ACBK [facility] Last Admin: 12/12/19 06:38 Dose: 75 mcg Metoprolol Succinate (Toprol Xl -) 25 mg PO DAILY [facility] Last Admin: 12/12/19 10:36 Dose: 25 mg Sacubitril/Valsartan (Entresto 24 Mg-26 Mg Tablet) 1 tab PO BID [facility] Last Admin: 12/12/19 10:36 Dose: 1 tab Spironolactone (Aldactone -) 25 mg PO DAILY [facility] Last Admin: 12/12/19 10:36 Dose: 25 mg - Objective Vital Signs: Vital Signs Temperature 97.7 F 12/12/19 18:00 Pulse Rate 95 H 12/12/19 18:00 Respiratory Rate 20 12/12/19 18:00 Blood Pressure 135/84 12/12/19 18:00 O2 Sat by Pulse Oximetry (%) 96 12/12/19 09:00 Neck: Yes: WNL, Supple Cardiovascular: Yes: WNL, Regular Rate and Rhythm Respiratory: Yes: WNL, Regular, CTA Bilaterally Gastrointestinal: Yes: WNL, Normal Bowel Sounds, Soft Edema: No Labs: CBC, BMP 12/11/19 08:57 12/12/19 06:20 INR, PTT INR 1.23 (0.83-1.09) H 12/11/19 08:57 Problem List - Problems (1) Dyspnea Assessment/Plan: Acute CHF vs Asthma exacerbation Cardio/pulmonary consults noted Code(s): R06.00 - DYSPNEA, UNSPECIFIED (2) Acute on chronic systolic and diastolic heart failure, NYHA class 3 Assessment/Plan: Pt given dose of IV lasix in ER Pt now on po lasix Code(s): I50.43 - ACUTE ON CHRONIC COMBINED SYSTOLIC AND DIASTOLIC HRT FAIL (3) Asthma exacerbation Assessment/Plan: IV solumedrol was dc'ed DC planning for am Cont inhalers/nebulizers Code(s): J45.901 - UNSPECIFIED ASTHMA WITH (ACUTE) EXACERBATION Qualifiers: Asthma severity: moderate Asthma persistence: unspecified Qualified Code( s): J45.901 - Unspecified asthma with (acute) exacerbation (4) CAD (coronary artery disease) Code(s): I25.10 - ATHSCL HEART DISEASE OF [place] CORONARY ARTERY W/O ANG PCTRS (5) Diabetes Assessment/Plan: Cont sliding scale w/ coverage Code(s): E11.9 - TYPE 2 DIABETES MELLITUS WITHOUT COMPLICATIONS Qualifiers: Diabetes mellitus type: type 2 (6) Hyperlipidemia Assessment/Plan: Cont lipitor Code(s): E78.5 - HYPERLIPIDEMIA, UNSPECIFIED (7) Hypertension Assessment/Plan: Bp stable Cont metoprolol Code(s): I10 - ESSENTIAL (PRIMARY) HYPERTENSION Qualifiers: Hypertension type: essential hypertension Qualified Code(s): I10 - Essential (primary) hypertension (8) ICD (implantable cardioverter-defibrillator) in place Code(s): Z95.810 - PRESENCE OF AUTOMATIC (IMPLANTABLE) CARDIAC DEFIBRILLATOR (9) Morbid obesity Code(s): E66.01 - MORBID (SEVERE) OBESITY DUE TO EXCESS CALORIES (10) Paroxysmal A-fib Assessment/Plan: Heart rate stable Cont eliquis/metoprolol Code(s): I48.0 - PAROXYSMAL ATRIAL FIBRILLATION (11) Sleep apnea Assessment/Plan: Pt will outpt sleep studies Code(s): G47.30 - SLEEP APNEA, UNSPECIFIED (12) Troponin level elevated Assessment/Plan: Due to demand ischemia Code(s): R79.89 - OTHER SPECIFIED ABNORMAL FINDINGS OF BLOOD CHEMISTRY (13) Hypothyroidism Assessment/Plan: Cont levothyroxine Code(s): E03.9 - HYPOTHYROIDISM, UNSPECIFIED
[2019-12-12] MEDS ORDERED: PT OWN MED DRAWER 7, Y5N ONE (21:32)
[2019-12-12] MEDS: ATORVASTATIN CA 40 MG TABLET (FP) PO SCH (22:21)
[2019-12-13] MEDS: INSULIN SLIDING SCALE (NOVOLOG) 1 VIAL SQ SCH ×4 (06:18→23:04)
[2019-12-13] MEDS: LEVOTHYROXINE NA 75 MCG TABLET (FP) PO SCH (06:18)
[2019-12-13 07:00] LABS: BASO % 0.5 % (0-2.0); EOS % 0.3 % (0-4.5); HEMATOCRIT 33.9 % (32.4-45.2); HEMOGLOBIN 10.8 GM/dL (10.7-15.3); LYMPH % 18.1 % (8-40); MCH 26.2 pg (25.7-33.7); MCHC 31.8 g/dl (32.0-36.0); MEAN CELL VOLUME 82.4 fl (80-96); MEAN PLT VOLUME 9.6 fl (7.5-11.1); MONO % 8.4 % (3.8-10.2); NEUT % 72.7 % (42.8-82.8); PLATELET COUNT 336 K/MM3 (134-434); RBC 4.11 M/mm3 (3.60-5.2); RDW 17.3 % (11.6-15.6); WHITE BLOOD COUNT 11.6 K/mm3 (4.0-10.0)
[2019-12-13] MEDS: ALBUTEROL SO4 2.5/IPRATROPIUM 0.5 INH SOL 3 ML VIAL.NEB. NEB SCH ×3 (08:05→20:45)
[2019-12-13] MEDS: FUROSEMIDE 20 MG TABLET (FP) PO SCH (09:50)
[2019-12-13] MEDS: APIXABAN 5 MG TABLET PO SCH ×2 (09:50→21:55)
[2019-12-13] MEDS: BUDESONIDE/FORMETEROL FUMARATE 160/4.5 mcg INHALER IH SCH ×2 (09:52→21:56)
[2019-12-13] MEDS: metoPROLOL SUCCINATE 25 MG TAB.SR.24H (FP) PO SCH (09:53)
[2019-12-13] MEDS: DULoxetine HCL 30 MG CAPSULE.DR PO SCH (09:56)
[2019-12-13] MEDS ORDERED: ALBUTEROL SO4 0.083% IH SOL 2.5 MG/3 ML VIAL.NEB. NEB PRN (12:12)
--- NOTE | 2019-12-13 12:12 | PN ---
Progress Note (short form) - Note Progress Note: PULMONARY Breathing slightly better but still with chest tightness. +nonproductive cough. Vital Signs Period Temp Pulse Resp BP Sys/Mcgrath Pulse Ox Last 24 Hr 97.7 F-98.2 F 80-95 18-20 82-135/61-84 96 Gen: NAD at rest Heart: RRR Lung: decreased air entry Abd: soft, nontender Ext: no edema CBC, BMP 12/13/19 06:40 12/12/19 06:20 Active Medications Albuterol/Ipratropium (Duoneb -) 1 amp NEB RTID [facility] Last Admin: 12/13/19 08:05 Dose: 1 amp Apixaban (Eliquis -) 5 mg PO BID [facility] Last Admin: 12/13/19 09:50 Dose: 5 mg Atorvastatin Calcium (Lipitor -) 40 mg PO HS [facility] Last Admin: 12/12/19 22:21 Dose: 40 mg Budesonide/Formoterol Fumarate (Symbicort 160/4.5mcg -) 2 puff IH BID [facility] Last Admin: 12/13/19 09:52 Dose: 2 puff Duloxetine HCl (Cymbalta -) 30 mg PO DAILY [facility] Last Admin: 12/13/19 09:56 Dose: Not Given Furosemide (Lasix -) 20 mg PO DAILY [facility] Last Admin: 12/13/19 09:50 Dose: 20 mg Insulin Aspart (Novolog Vial Sliding Scale -) 1 vial SQ [facility]; Protocol Last Admin: 12/13/19 06:18 Dose: 4 units Levothyroxine Sodium (Synthroid -) 75 mcg PO ACBK [facility] Last Admin: 12/13/19 06:18 Dose: 75 mcg Metoprolol Succinate (Toprol Xl -) 25 mg PO DAILY [facility] Last Admin: 12/13/19 09:53 Dose: 25 mg Sacubitril/Valsartan (Entresto 24 Mg-26 Mg Tablet) 1 tab PO BID [facility] Last Admin: 12/12/19 22:21 Dose: 1 tab Spironolactone (Aldactone -) 25 mg PO DAILY [facility] Last Admin: 12/12/19 10:36 Dose: 25 mg A/P Acute Asthma Exacerbation URI LV Systolic Dysfunction s/p ICD +Troponins likely Demand Ischemia Paroxysmal Atrial Fibrillation HTN Hyperlipidemia - short course of medrol x 24-48hrs - inhaled bronchodilators - O2 to keep Spo2 >90% - continue lasix - rate control - continue anticoagulation - trilogy at night and PRN during day
[2019-12-13] MEDS: SACUBITRIL/VALSARTAN 24 MG-26 MG TABLET PO SCH ×2 (12:40→21:55)
[2019-12-13] MEDS: SPIRONOLACTONE 25 MG TABLET (FP) PO SCH (12:40)
[2019-12-13] MEDS: methylPREDNISolone NA SUCC 40 MG/1 ML VIAL IVPUSH SCH ×2 (12:46→19:00)
--- NOTE | 2019-12-13 13:52 | PN ---
Progress Note, Physician History of Present Illness: Pt seen and examined at bedside. She is awake and alert. She denies shortness of breath. - Current Medication List Current Medications: Active Medications Albuterol Sulfate (Ventolin 0.083% Nebulizer Soln -) 1 amp NEB Q4H PRN PRN Reason: SHORT OF BREATH/WHEEZING Albuterol/Ipratropium (Duoneb -) 1 amp NEB RTID [facility] Last Admin: 12/13/19 08:05 Dose: 1 amp Apixaban (Eliquis -) 5 mg PO BID [facility] Last Admin: 12/13/19 09:50 Dose: 5 mg Atorvastatin Calcium (Lipitor -) 40 mg PO HS [facility] Last Admin: 12/12/19 22:21 Dose: 40 mg Budesonide/Formoterol Fumarate (Symbicort 160/4.5mcg -) 2 puff IH BID [facility] Last Admin: 12/13/19 09:52 Dose: 2 puff Duloxetine HCl (Cymbalta -) 30 mg PO DAILY [facility] Last Admin: 12/13/19 09:56 Dose: Not Given Furosemide (Lasix -) 20 mg PO DAILY [facility] Last Admin: 12/13/19 09:50 Dose: 20 mg Insulin Aspart (Novolog Vial Sliding Scale -) 1 vial SQ ACHS [facility]; Protocol Last Admin: 12/13/19 12:22 Dose: 2 units Levothyroxine Sodium (Synthroid -) 75 mcg PO ACBK [facility] Last Admin: 12/13/19 06:18 Dose: 75 mcg Methylprednisolone Sodium Succinate (Solu-Medrol -) 40 mg IVPUSH Q8H-IV [facility] Stop: 12/15/19 02:01 Last Admin: 12/13/19 12:46 Dose: 40 mg Metoprolol Succinate (Toprol Xl -) 25 mg PO DAILY [facility] Last Admin: 12/13/19 09:53 Dose: 25 mg Sacubitril/Valsartan (Entresto 24 Mg-26 Mg Tablet) 1 tab PO BID [facility] Last Admin: 12/13/19 12:40 Dose: 1 tab Spironolactone (Aldactone -) 25 mg PO DAILY [facility] Last Admin: 12/13/19 12:40 Dose: 25 mg - Objective Vital Signs: Vital Signs Temperature 97.7 F 12/13/19 06:00 Pulse Rate 92 H 12/13/19 06:00 Respiratory Rate 18 12/13/19 06:00 Blood Pressure 125/83 12/13/19 06:00 O2 Sat by Pulse Oximetry (%) 96 12/12/19 21:00 Constitutional: Yes: Calm Eyes: Yes: Conjunctiva Clear HENT: Yes: Atraumatic Cardiovascular: Yes: S1, S2 Respiratory: Yes: CTA Bilaterally Gastrointestinal: Yes: Soft Genitourinary: Yes: WNL Breast(s): Yes: WNL Extremities: Yes: WNL Edema: No Integumentary: Yes: WNL Neurological: Yes: Oriented Psychiatric: Yes: Oriented Labs: CBC, BMP 12/13/19 06:40 12/12/19 06:20 INR, PTT INR 1.23 (0.83-1.09) H 12/11/19 08:57 Problem List - Problems (1) Dyspnea Code(s): R06.00 - DYSPNEA, UNSPECIFIED Assessment/Plan Current Medications Generic Name Dose Route Start Last Admin Trade Name Freq PRN Reason Stop Dose Admin Albuterol Sulfate 1 amp 12/13/19 12:12 Ventolin 0.083% Nebulizer Soln - NEB Q4H PRN SHORT OF BREATH/WHEEZING Albuterol/Ipratropium 1 amp 12/12/19 14:00 12/13/19 08:05 Duoneb - NEB 1 amp RTID DOM Administration Apixaban 5 mg 12/12/19 10:00 12/13/19 09:50 Eliquis - PO 5 mg BID DOM Administration Atorvastatin Calcium 40 mg 12/12/19 22:00 12/12/19 22:21 Lipitor - PO 40 mg HS DOM Administration Budesonide/Formoterol Fumarate 2 puff 12/12/19 10:00 12/13/19 09:52 Symbicort 160/4.5mcg - IH 2 puff BID DOM Administration Duloxetine HCl 30 mg 12/12/19 10:00 12/13/19 09:56 Cymbalta - PO Not Given DAILY DOM Furosemide 20 mg 12/12/19 10:00 12/13/19 09:50 Lasix - PO 20 mg DAILY DOM Administration Insulin Aspart 1 vial 12/12/19 16:30 12/13/19 12:22 Novolog Vial Sliding Scale - SQ 2 units ACHS DOM Administration Protocol Levothyroxine Sodium 75 mcg 12/12/19 07:00 12/13/19 06:18 Synthroid - PO 75 mcg ACBK DOM Administration Methylprednisolone Sodium Succinate 40 mg 12/13/19 12:45 12/13/19 12:46 Solu-Medrol - IVPUSH 12/15/19 02:01 40 mg Q8H-IV DOM Administration Metoprolol Succinate 25 mg 12/12/19 10:00 12/13/19 09:53 Toprol Xl - PO 25 mg DAILY DOM Administration Sacubitril/Valsartan 1 tab 12/12/19 10:00 12/13/19 12:40 Entresto 24 Mg-26 Mg Tablet PO 1 tab BID DOM Administration Spironolactone 25 mg 12/12/19 10:00 12/13/19 12:40 Aldactone - PO 25 mg DAILY [facility] Administration Impression 1. ckd 2. dyspnea 3. asthma 4. chf 5. obesity 6. hypotension 7. a-fib Plan - cont lasix and aldactone - monitor renal function - will see as outpt if she comes to her appointment - volume status stable - monitor weights - 2 gram sodium diet
--- NOTE | 2019-12-13 16:23 | PN ---
Progress Note (short form) - Note Progress Note: s: no chest pain, palps, dizziness. dyspnea improved. Current Medications Albuterol Sulfate (Ventolin 0.083% Nebulizer Soln -) 1 amp NEB Q4H PRN PRN Reason: SHORT OF BREATH/WHEEZING Albuterol/Ipratropium (Duoneb -) 1 amp NEB RTID [facility] Last Admin: 12/13/19 13:00 Dose: 1 amp Apixaban (Eliquis -) 5 mg PO BID [facility] Last Admin: 12/13/19 09:50 Dose: 5 mg Atorvastatin Calcium (Lipitor -) 40 mg PO HS [facility] Last Admin: 12/12/19 22:21 Dose: 40 mg Budesonide/Formoterol Fumarate (Symbicort 160/4.5mcg -) 2 puff IH BID [facility] Last Admin: 12/13/19 09:52 Dose: 2 puff Duloxetine HCl (Cymbalta -) 30 mg PO DAILY [facility] Last Admin: 12/13/19 09:56 Dose: Not Given Furosemide (Lasix -) 20 mg PO DAILY [facility] Last Admin: 12/13/19 09:50 Dose: 20 mg Insulin Aspart (Novolog Vial Sliding Scale -) 1 vial SQ ACHS [facility]; Protocol Last Admin: 12/13/19 12:22 Dose: 2 units Levothyroxine Sodium (Synthroid -) 75 mcg PO ACBK [facility] Last Admin: 12/13/19 06:18 Dose: 75 mcg Methylprednisolone Sodium Succinate (Solu-Medrol -) 40 mg IVPUSH Q8H-IV [facility] Stop: 12/15/19 02:01 Last Admin: 12/13/19 12:46 Dose: 40 mg Metoprolol Succinate (Toprol Xl -) 25 mg PO DAILY [facility] Last Admin: 12/13/19 09:53 Dose: 25 mg Sacubitril/Valsartan (Entresto 24 Mg-26 Mg Tablet) 1 tab PO BID [facility] Last Admin: 12/13/19 12:40 Dose: 1 tab Spironolactone (Aldactone -) 25 mg PO DAILY [facility] Last Admin: 12/13/19 12:40 Dose: 25 mg Vital Signs Period Temp Pulse Resp BP Sys/Mcgrath Pulse Ox Last 24 Hr 97.7 F-98.2 F 80-95 18-20 82-135/61-84 96 Constitutional: Yes: Well Nourished, No Distress, Obese Eyes: No: Sclera Icterus HENT: No: Nasal Congestion Neck: No: Decreased ROM Respiratory: Yes: CTA Bilaterally. No: Accessory Muscle Use, Rales, Wheezes Gastrointestinal: Yes: Normal Bowel Sounds. No: Distention, Hepatomegaly, Palpable Mass, Tenderness Cardiovascular: Yes: Regular Rate and Rhythm JVD: No Carotid Bruit: No PMI: Non-Displaced Heart Sounds: Yes: S1, S2. No: Gallop Murmur: No: Systolic Murmur, Diastolic Murmur Musculoskeletal: Yes: Other (No kyphosis) Extremities: No: Cool, Cyanosis Edema: No Integumentary: No: Jaundice Neurological: Yes: Alert, Oriented (x3) Psychiatric: No: Agitated Assessment/Plan Cardiac Catheterization (non-obstructive CAD) echo 05/2019 tds, mildly dilated LV, severe global hypok, RV nl CXR: no congestion or effusion seen EKG: sinus, LBBB tele: sinus shortness of breath, cough, bronchitis - may be asthma exacerbation in setting of recent URI - less likely CHF - weight lower than prior admissions, BNP 1500 however less than prior admissions as well (previously >3000), no congestion on CXR, appears euvolemic - manage per primary - cont home PO lasix elevated trop - indeterminate range, flat trend likely in setting of cardiomyopathy - less likely ACS chronic systolic HF, s/p ICD - recent RHC/LHC at [facility] reportedly no significant findings - CXR no congestion, appears euvolemic - cont entresto, spironolactone, metoprolol - cont PO lasix - outpatient ICD monitoring copd/asthma: - manage per primary HTN: - bp controlled paroxysmal afib - in sinus here--cont home bb - cont home eliquis for AC (5 bid) HLD - cont statin
[2019-12-13] MEDS ORDERED: PT OWN MED DRAWER 7, Y5N ONE (20:32)
[2019-12-13] MEDS: ATORVASTATIN CA 40 MG TABLET (FP) PO SCH (21:55)
--- NOTE | 2019-12-13 22:26 | PN ---
Progress Note, Physician History of Present Illness: doing well - Current Medication List Current Medications: Active Medications Albuterol Sulfate (Ventolin 0.083% Nebulizer Soln -) 1 amp NEB Q4H PRN PRN Reason: SHORT OF BREATH/WHEEZING Albuterol/Ipratropium (Duoneb -) 1 amp NEB RTID [facility] Last Admin: 12/13/19 13:00 Dose: 1 amp Apixaban (Eliquis -) 5 mg PO BID [facility] Last Admin: 12/13/19 21:55 Dose: 5 mg Atorvastatin Calcium (Lipitor -) 40 mg PO HS [facility] Last Admin: 12/13/19 21:55 Dose: 40 mg Budesonide/Formoterol Fumarate (Symbicort 160/4.5mcg -) 2 puff IH BID [facility] Last Admin: 12/13/19 21:56 Dose: 2 puff Duloxetine HCl (Cymbalta -) 30 mg PO DAILY [facility] Last Admin: 12/13/19 09:56 Dose: Not Given Furosemide (Lasix -) 20 mg PO DAILY [facility] Last Admin: 12/13/19 09:50 Dose: 20 mg Insulin Aspart (Novolog Vial Sliding Scale -) 1 vial SQ ACHS [facility]; Protocol Last Admin: 12/13/19 17:40 Dose: 10 units Levothyroxine Sodium (Synthroid -) 75 mcg PO ACBK [facility] Last Admin: 12/13/19 06:18 Dose: 75 mcg Methylprednisolone Sodium Succinate (Solu-Medrol -) 40 mg IVPUSH Q8H-IV [facility] Stop: 12/15/19 02:01 Last Admin: 12/13/19 19:00 Dose: 40 mg Metoprolol Succinate (Toprol Xl -) 25 mg PO DAILY [facility] Last Admin: 12/13/19 09:53 Dose: 25 mg Sacubitril/Valsartan (Entresto 24 Mg-26 Mg Tablet) 1 tab PO BID [facility] Last Admin: 12/13/19 21:55 Dose: 1 tab Spironolactone (Aldactone -) 25 mg PO DAILY [facility] Last Admin: 12/13/19 12:40 Dose: 25 mg - Objective Vital Signs: Vital Signs Temperature 97.8 F 12/13/19 14:00 Pulse Rate 90 12/13/19 18:00 Respiratory Rate 18 12/13/19 20:55 Blood Pressure 112/74 12/13/19 18:00 O2 Sat by Pulse Oximetry (%) 97 12/13/19 20:55 Constitutional: Yes: No Distress HENT: Yes: Atraumatic Neck: Yes: Supple Cardiovascular: Yes: Regular Rate and Rhythm Respiratory: Yes: CTA Bilaterally Gastrointestinal: Yes: Normal Bowel Sounds Extremities: Yes: WNL Edema: No Neurological: Yes: Alert, Oriented Labs: CBC, BMP 12/13/19 06:40 12/12/19 06:20 INR, PTT INR 1.23 (0.83-1.09) H 12/11/19 08:57 Problem List - Problems (1) CHF exacerbation Assessment/Plan: on diuretics Code(s): I50.9 - HEART FAILURE, UNSPECIFIED Qualifiers: Heart failure type: systolic Qualified Code(s): I50.23 - Acute on chronic systolic (congestive) heart failure (2) Dyspnea Code(s): R06.00 - DYSPNEA, UNSPECIFIED (3) Hypothyroidism Assessment/Plan: on meds Code(s): E03.9 - HYPOTHYROIDISM, UNSPECIFIED (4) Acute on chronic systolic (congestive) heart failure Code(s): I50.23 - ACUTE ON CHRONIC SYSTOLIC (CONGESTIVE) HEART FAILURE (5) Asthma exacerbation Code(s): J45.901 - UNSPECIFIED ASTHMA WITH (ACUTE) EXACERBATION Qualifiers: Asthma severity: moderate Asthma persistence: unspecified Qualified Code( s): J45.901 - Unspecified asthma with (acute) exacerbation (6) CAD (coronary artery disease) Code(s): I25.10 - ATHSCL HEART DISEASE OF [place] CORONARY ARTERY W/O ANG PCTRS (7) Cardiomyopathy Code(s): I42.9 - CARDIOMYOPATHY, UNSPECIFIED (8) Diabetes [place] [facility] [place] Code(s): E11.9 - TYPE 2 DIABETES MELLITUS WITHOUT COMPLICATIONS Qualifiers: Diabetes mellitus type: type 2 (9) Hyperlipidemia Code(s): E78.5 - HYPERLIPIDEMIA, UNSPECIFIED (10) Hypertension Code(s): I10 - ESSENTIAL (PRIMARY) HYPERTENSION Qualifiers: Hypertension type: essential hypertension Qualified Code(s): I10 - Essential (primary) hypertension Assessment/Plan continue current meds id planning for am d/w dr Lewis covering for dr lewis
[2019-12-13] MEDS ORDERED: INSULIN (NOVOLOG) ASPART 100 UNITS/ML 10ML VIAL ONE (22:49)
[2019-12-13] MEDS ORDERED: INSULIN (NOVOLOG) ASPART 100 UNITS/ML 10ML VIAL SQ ONE (23:45)
[2019-12-14] MEDS: methylPREDNISolone NA SUCC 40 MG/1 ML VIAL IVPUSH SCH ×2 (01:42→10:17)
[2019-12-14] MEDS: INSULIN SLIDING SCALE (NOVOLOG) 1 VIAL SQ SCH ×2 (06:38→12:19)
[2019-12-14] MEDS: LEVOTHYROXINE NA 75 MCG TABLET (FP) PO SCH (06:39)
[2019-12-14] MEDS: ALBUTEROL SO4 2.5/IPRATROPIUM 0.5 INH SOL 3 ML VIAL.NEB. NEB SCH (08:45)
[2019-12-14] MEDS: SPIRONOLACTONE 25 MG TABLET (FP) PO SCH (10:17)
[2019-12-14] MEDS: FUROSEMIDE 20 MG TABLET (FP) PO SCH (10:17)
[2019-12-14] MEDS: metoPROLOL SUCCINATE 25 MG TAB.SR.24H (FP) PO SCH (10:17)
[2019-12-14] MEDS: APIXABAN 5 MG TABLET PO SCH (10:17)
[2019-12-14] MEDS: DULoxetine HCL 30 MG CAPSULE.DR PO SCH (10:18)
[2019-12-14] MEDS: BUDESONIDE/FORMETEROL FUMARATE 160/4.5 mcg INHALER IH SCH (10:18)
[2019-12-14] MEDS: SACUBITRIL/VALSARTAN 24 MG-26 MG TABLET PO SCH (10:20)
--- NOTE | 2019-12-14 12:16 | PN ---
Progress Note (short form) - Note Progress Note: s: no chest pain, palps, dizziness, dyspnea Current Medications Albuterol Sulfate (Ventolin 0.083% Nebulizer Soln -) 1 amp NEB Q4H PRN PRN Reason: SHORT OF BREATH/WHEEZING Albuterol/Ipratropium (Duoneb -) 1 amp NEB RTID [facility] Last Admin: 12/14/19 08:45 Dose: 1 amp Apixaban (Eliquis -) 5 mg PO BID [facility] Last Admin: 12/14/19 10:17 Dose: 5 mg Atorvastatin Calcium (Lipitor -) 40 mg PO HS [facility] Last Admin: 12/13/19 21:55 Dose: 40 mg Budesonide/Formoterol Fumarate (Symbicort 160/4.5mcg -) 2 puff IH BID [facility] Last Admin: 12/14/19 10:18 Dose: 2 puff Duloxetine HCl (Cymbalta -) 30 mg PO DAILY [facility] Last Admin: 12/14/19 10:18 Dose: Not Given Furosemide (Lasix -) 20 mg PO DAILY [facility] Last Admin: 12/14/19 10:17 Dose: 20 mg Insulin Aspart (Novolog Vial Sliding Scale -) 1 vial SQ ACHS [facility]; Protocol Last Admin: 12/14/19 06:38 Dose: 6 units Levothyroxine Sodium (Synthroid -) 75 mcg PO ACBK [facility] Last Admin: 12/14/19 06:39 Dose: 75 mcg Methylprednisolone Sodium Succinate (Solu-Medrol -) 40 mg IVPUSH Q8H-IV [facility] Stop: 12/15/19 02:01 Last Admin: 12/14/19 10:17 Dose: 40 mg Metoprolol Succinate (Toprol Xl -) 25 mg PO DAILY [facility] Last Admin: 12/14/19 10:17 Dose: 25 mg Sacubitril/Valsartan (Entresto 24 Mg-26 Mg Tablet) 1 tab PO BID [facility] Last Admin: 12/14/19 10:20 Dose: 1 tab Spironolactone (Aldactone -) 25 mg PO DAILY [facility] Last Admin: 12/14/19 10:17 Dose: 25 mg Vital Signs Period Temp Pulse Resp BP Sys/Mcgrath Pulse Ox Last 24 Hr 97.8 F-98.2 F 76-90 18-20 109-141/65-75 97-98 Constitutional: Yes: Well Nourished, No Distress, Obese Eyes: No: Sclera Icterus HENT: No: Nasal Congestion Neck: No: Decreased ROM Respiratory: Yes: CTA Bilaterally. No: Accessory Muscle Use, Rales, Wheezes Gastrointestinal: Yes: Normal Bowel Sounds. No: Distention, Hepatomegaly, Palpable Mass, Tenderness Cardiovascular: Yes: Regular Rate and Rhythm JVD: No Carotid Bruit: No PMI: Non-Displaced Heart Sounds: Yes: S1, S2. No: Gallop Murmur: No: Systolic Murmur, Diastolic Murmur Musculoskeletal: Yes: Other (No kyphosis) Extremities: No: Cool, Cyanosis Edema: No Integumentary: No: Jaundice Neurological: Yes: Alert, Oriented (x3) Psychiatric: No: Agitated Assessment/Plan Cardiac Catheterization (non-obstructive CAD) echo 05/2019 tds, mildly dilated LV, severe global hypok, RV nl CXR: no congestion or effusion seen EKG: sinus, LBBB tele: sinus shortness of breath, cough, bronchitis - may be asthma exacerbation in setting of recent URI - less likely CHF - weight lower than prior admissions, BNP 1500 however less than prior admissions as well (previously >3000), no congestion on CXR, appears euvolemic - manage per primary - cont home PO lasix elevated trop - indeterminate range, flat trend likely in setting of cardiomyopathy - less likely ACS chronic systolic HF, s/p ICD - recent RHC/LHC at [facility] reportedly no significant findings - CXR no congestion, appears euvolemic - cont entresto, spironolactone, metoprolol - cont PO lasix - outpatient ICD monitoring copd/asthma: - manage per primary HTN: - bp controlled paroxysmal afib - in sinus here--cont home bb - cont home eliquis for AC (5 bid) HLD - cont statin
--- NOTE | 2019-12-14 12:58 | PN ---
Progress Note (short form) - Note Progress Note: PULMONARY Breathing better, close to baseline. Less cough and wheezing. Vital Signs Period Temp Pulse Resp BP Sys/Mcgrath Pulse Ox Last 24 Hr 97.8 F-98.2 F 76-90 18-20 109-141/65-75 97-98 Gen: NAD at rest Heart: RRR Lung: decreased air entry Abd: soft, nontender Ext: no edema CBC, BMP 12/13/19 06:40 12/12/19 06:20 Active Medications Albuterol Sulfate (Ventolin 0.083% Nebulizer Soln -) 1 amp NEB Q4H PRN PRN Reason: SHORT OF BREATH/WHEEZING Albuterol/Ipratropium (Duoneb -) 1 amp NEB RTID [facility] Last Admin: 12/14/19 08:45 Dose: 1 amp Apixaban (Eliquis -) 5 mg PO BID [facility] Last Admin: 12/14/19 10:17 Dose: 5 mg Atorvastatin Calcium (Lipitor -) 40 mg PO HS [facility] Last Admin: 12/13/19 21:55 Dose: 40 mg Budesonide/Formoterol Fumarate (Symbicort 160/4.5mcg -) 2 puff IH BID [facility] Last Admin: 12/14/19 10:18 Dose: 2 puff Duloxetine HCl (Cymbalta -) 30 mg PO DAILY [facility] Last Admin: 12/14/19 10:18 Dose: Not Given Furosemide (Lasix -) 20 mg PO DAILY [facility] Last Admin: 12/14/19 10:17 Dose: 20 mg Insulin Aspart (Novolog Vial Sliding Scale -) 1 vial SQ ACHS [facility]; Protocol Last Admin: 12/14/19 12:19 Dose: 8 units Levothyroxine Sodium (Synthroid -) 75 mcg PO ACBK [facility] Last Admin: 12/14/19 06:39 Dose: 75 mcg Methylprednisolone Sodium Succinate (Solu-Medrol -) 40 mg IVPUSH Q8H-IV [facility] Stop: 12/15/19 02:01 Last Admin: 12/14/19 10:17 Dose: 40 mg Metoprolol Succinate (Toprol Xl -) 25 mg PO DAILY [facility] Last Admin: 12/14/19 10:17 Dose: 25 mg Sacubitril/Valsartan (Entresto 24 Mg-26 Mg Tablet) 1 tab PO BID [facility] Last Admin: 12/14/19 10:20 Dose: 1 tab Spironolactone (Aldactone -) 25 mg PO DAILY [facility] Last Admin: 12/14/19 10:17 Dose: 25 mg A/P Acute Asthma Exacerbation URI LV Systolic Dysfunction s/p ICD +Troponins likely Demand Ischemia Paroxysmal Atrial Fibrillation HTN Hyperlipidemia - can d/c steroids - inhaled bronchodilators - O2 to keep Spo2 >90% - continue lasix - rate control - continue anticoagulation - trilogy at night and PRN during day - can d/c home from pulmonary standpoint
--- NOTE | 2019-12-14 13:42 | PN ---
Progress Note, Physician History of Present Illness: Pt seen and examined at bedside. She feels wheezing is improved. - Current Medication List Current Medications: Active Medications Albuterol Sulfate (Ventolin 0.083% Nebulizer Soln -) 1 amp NEB Q4H PRN PRN Reason: SHORT OF BREATH/WHEEZING Albuterol/Ipratropium (Duoneb -) 1 amp NEB RTID [facility] Last Admin: 12/14/19 08:45 Dose: 1 amp Apixaban (Eliquis -) 5 mg PO BID [facility] Last Admin: 12/14/19 10:17 Dose: 5 mg Atorvastatin Calcium (Lipitor -) 40 mg PO HS [facility] Last Admin: 12/13/19 21:55 Dose: 40 mg Budesonide/Formoterol Fumarate (Symbicort 160/4.5mcg -) 2 puff IH BID [facility] Last Admin: 12/14/19 10:18 Dose: 2 puff Duloxetine HCl (Cymbalta -) 30 mg PO DAILY [facility] Last Admin: 12/14/19 10:18 Dose: Not Given Furosemide (Lasix -) 20 mg PO DAILY [facility] Last Admin: 12/14/19 10:17 Dose: 20 mg Insulin Aspart (Novolog Vial Sliding Scale -) 1 vial SQ ACHS [facility]; Protocol Last Admin: 12/14/19 12:19 Dose: 8 units Levothyroxine Sodium (Synthroid -) 75 mcg PO ACBK [facility] Last Admin: 12/14/19 06:39 Dose: 75 mcg Methylprednisolone Sodium Succinate (Solu-Medrol -) 40 mg IVPUSH Q8H-IV [facility] Stop: 12/15/19 02:01 Last Admin: 12/14/19 10:17 Dose: 40 mg Metoprolol Succinate (Toprol Xl -) 25 mg PO DAILY [facility] Last Admin: 12/14/19 10:17 Dose: 25 mg Sacubitril/Valsartan (Entresto 24 Mg-26 Mg Tablet) 1 tab PO BID [facility] Last Admin: 12/14/19 10:20 Dose: 1 tab Spironolactone (Aldactone -) 25 mg PO DAILY [facility] Last Admin: 12/14/19 10:17 Dose: 25 mg - Objective Vital Signs: Vital Signs Temperature 98.2 F 12/14/19 08:49 Pulse Rate 80 12/14/19 08:49 Respiratory Rate 18 12/14/19 09:00 Blood Pressure 109/66 12/14/19 08:49 O2 Sat by Pulse Oximetry (%) 98 12/14/19 09:00 Constitutional: Yes: Calm Eyes: Yes: Conjunctiva Clear HENT: Yes: Atraumatic Neck: Yes: Supple Cardiovascular: Yes: S1, S2 Respiratory: Yes: CTA Bilaterally Gastrointestinal: Yes: Soft Genitourinary: Yes: WNL Musculoskeletal: Yes: WNL Edema: No Neurological: Yes: Oriented Psychiatric: Yes: Oriented Labs: CBC, BMP 12/13/19 06:40 12/12/19 06:20 INR, PTT INR 1.23 (0.83-1.09) H 12/11/19 08:57 Problem List - Problems (1) Dyspnea Code(s): R06.00 - DYSPNEA, UNSPECIFIED Assessment/Plan Current Medications Generic Name Dose Route Start Last Admin Trade Name Freq PRN Reason Stop Dose Admin Albuterol Sulfate 1 amp 12/13/19 12:12 Ventolin 0.083% Nebulizer Soln - NEB Q4H PRN SHORT OF BREATH/WHEEZING Albuterol/Ipratropium 1 amp 12/12/19 14:00 12/14/19 08:45 Duoneb - NEB 1 amp RTID [facility] Administration Apixaban 5 mg 12/12/19 10:00 12/14/19 10:17 Eliquis - PO 5 mg BID [facility] Administration Atorvastatin Calcium 40 mg 12/12/19 22:00 12/13/19 21:55 Lipitor - PO 40 mg HS [facility] Administration Budesonide/Formoterol Fumarate 2 puff 12/12/19 10:00 12/14/19 10:18 Symbicort 160/4.5mcg - IH 2 puff BID DOM Administration Duloxetine HCl 30 mg 12/12/19 10:00 12/14/19 10:18 Cymbalta - PO Not Given DAILY [facility] Furosemide 20 mg 12/12/19 10:00 12/14/19 10:17 Lasix - PO 20 mg DAILY [facility] Administration Insulin Aspart 1 vial 12/12/19 16:30 12/14/19 12:19 Novolog Vial Sliding Scale - SQ 8 units ACHS [facility] Administration Protocol Levothyroxine Sodium 75 mcg 12/12/19 07:00 12/14/19 06:39 Synthroid - PO 75 mcg ACBK [facility] Administration Methylprednisolone Sodium Succinate 40 mg 12/13/19 12:45 12/14/19 10:17 Solu-Medrol - IVPUSH 12/15/19 02:01 40 mg Q8H-IV [facility] Administration Metoprolol Succinate 25 mg 12/12/19 10:00 12/14/19 10:17 Toprol Xl - PO 25 mg DAILY [facility] Administration Sacubitril/Valsartan 1 tab 12/12/19 10:00 12/14/19 10:20 Entresto 24 Mg-26 Mg Tablet PO 1 tab BID [facility] Administration Spironolactone 25 mg 12/12/19 10:00 12/14/19 10:17 Aldactone - PO 25 mg DAILY [facility] Administration Impression 1. ckd 2. dyspnea 3. asthma 4. chf 5. obesity 6. hypotension 7. a-fib Plan - cont diuretics - taper steroids as tolerated - outpt follow up - volume status stable - monitor weights - 2 gram sodium diet
[2019-12-14 15:03] VITALS: BP 118/81; PULSE 89; TEMP 98.4
== END 2019-12-14 16:21 | disposition home health service (06) | DRG 202 ==
LOC: JER 07:41 → JERBED 10:06 → J4W 18:03
PROVIDERS: ADMIT Internal Medicine; ATTEND Internal Medicine
DX: J45.901 Unspecified asthma with (acute) exacerbation (principal); I50.22 Chronic systolic (congestive) heart failure; Z68.41 Body mass index [BMI] 40.0-44.9, adult; I42.8 Other cardiomyopathies; I24.8 Other forms of acute ischemic heart disease; I13.0 Hypertensive heart and chronic kidney disease with heart failure and stage 1 through stage 4 chronic kidney disease, or unspecified chronic kidney disease; N18.9 Chronic kidney disease, unspecified; E66.01 Morbid (severe) obesity due to excess calories; I48.0 Paroxysmal atrial fibrillation; J06.9 Acute upper respiratory infection, unspecified; E78.5 Hyperlipidemia, unspecified; I95.9 Hypotension, unspecified; J44.9 Chronic obstructive pulmonary disease, unspecified; E03.9 Hypothyroidism, unspecified; I25.10 Atherosclerotic heart disease of native coronary artery without angina pectoris; G47.30 Sleep apnea, unspecified
CPT/HCPCS: 36415; 71045-TC-FY; 80048; 80053; 82550; 82962; 83735; 83880; 84484; 85025; 85610; 93005; 93010; 94640; 99283-25

== ENCOUNTER 2019-12-26 12:29 | Observation (INO) | payer OTHER ==
[2019-12-26 13:29] LABS: BASO % 0.9 % (0-2.0); EOS % 1.5 % (0-4.5); HEMATOCRIT 39.6 % (32.4-45.2); HEMOGLOBIN 12.4 GM/dL (10.7-15.3); LYMPH % 23.3 % (8-40); MCH 25.8 pg (25.7-33.7); MCHC 31.4 g/dl (32.0-36.0); MEAN CELL VOLUME 82.3 fl (80-96); MONO % 6.2 % (3.8-10.2); NEUT % 68.1 % (42.8-82.8); PLATELET COUNT 238 K/MM3 (134-434); RBC 4.81 M/mm3 (3.60-5.2); RDW 17.5 % (11.6-15.6); WHITE BLOOD COUNT 10.8 K/mm3 (4.0-10.0)
[2019-12-26] MEDS ORDERED: ACETAMINOPHEN 1000 MG/100 ML VIAL (NON FORMULARY) IVPB ONE (13:31)
[2019-12-26 13:37] LABS: INR 1.26 (0.83-1.09); PROTHROMBIN TIME (PATIENT) 14.9 SEC (9.7-13.0)
--- NOTE | 2019-12-26 13:47 | PDOC ---
History of Present Illness - General Chief Complaint: Chest Pain Stated Complaint: CHEST PAIN Time Seen by Provider: 12/26/19 12:49 - History of Present Illness Initial Comments: Madhuri Cho is a 59yo woman with a PMH of CHF, nonischemic cardiomyopathy s/p PPM , ? prior [place] in [place], 2x stents placed), a-fib, CKD, DM, HTN , COPD, hypothyroidism (hashimotos), OA who presents to the ED with left-sided chest and arm pain since last night. She states that she was laying in bed when the pain started. She took acetaminophen at midnight and again around 6am without any relief. She told her aunt about the pain this morning at [facility], and the aunt convinced her to come to the hospital. Ms Cho denies any associated lightheadedness, SOB, nausea/vomiting or pain radiation. She does endorse sweating, and she reports that this might feel similar to her [place] in 2009, but she isn't sure. She has been recently compliant with her medications and denies any recent changes to her health. Past History - Past Medical History Allergies/Adverse Reactions: Allergies Allergy/AdvReac Type Severity Reaction Status Date / Time tomato Allergy Mild Hives Verified 12/26/19 12:44 chlorpheniramine Allergy Verified 12/26/19 12:44 cimetidine Allergy Verified 12/26/19 12:44 codeine [Codeine] Allergy Verified 12/26/19 12:44 ibuprofen Allergy Verified 12/26/19 12:44 latex [Latex] Allergy Verified 12/26/19 12:44 Latex, Natural Rubber Allergy Verified 12/26/19 12:44 pseudoephedrine Allergy Verified 12/26/19 12:44 salmeterol xinafoate Allergy Verified 12/26/19 12:44 [From Advair Diskus] shellfish derived Allergy Verified 12/26/19 12:44 Sulfa (Sulfonamide Allergy Verified 12/26/19 12:44 Antibiotics) [Sulfa(Sulfonamide Antibiotics)] Chocolate Allergy Mild Hives Uncoded 12/26/19 12:44 shrimp Allergy Mild Hives Uncoded 12/26/19 12:44 Home Medications: Ambulatory Orders Insulin Glargine,Hum.rec.anlog [Lantus Solostar PEN -] 20 units SQ AM 08/09/16 Budesonide/Formeterol Fumarate [SYMBICORT 160/4.5mcg -] 2 puff PO BID 10/14/16 Albuterol 2.5/Ipratropium 0.5 [Duoneb -] 1 amp NEB Q6H PRN #90 amp 05/21/19 Levothyroxine [Synthroid -] 75 mcg PO DAILY #30 tablet 05/21/19 Insulin Glargine,Hum.rec.anlog [Lantus Solostar PEN -] 10 units SQ HS 08/13/19 Metoprolol Succinate [Toprol XL -] 25 mg PO DAILY 10/10/19 Apixaban [Eliquis -] 5 mg PO BID 11/02/19 Dexlansoprazole [Dexilant -] 60 mg PO DAILY 11/02/19 Linaclotide [Linzess] 290 mcg PO DAILY 11/02/19 Sacubitril/Valsartan [Entresto 24 mg-26 mg Tablet] 1 each PO ASDIR 11/02/19 Furosemide [Lasix -] 20 mg PO DAILY #30 tablet 11/06/19 Albuterol 0.083% Nebulizer Yjothi [Ventolin 0.083% Nebulizer Soln -] 1 amp NEB Q4H PRN amp 12/13/19 Spironolactone [Aldactone -] 25 mg PO DAILY tablet 12/13/19 Anemia: Yes Asthma: Yes Cancer: No Cardiac Disorders: Yes ([place] X 2, pacemaker) CVA: No COPD: Yes CHF: Yes (S/P ICD) DVT: No Dementia: No Diabetes: Yes GI Disorders: Yes (PEPTIC ULCER) Disorders: No HTN: Yes Hypercholesterolemia: Yes Liver Disease: No Psychiatric Problems: Yes (DEPRESSION) Seizures: No Thyroid Disease: Yes - Surgical History Abdominal Surgery: Yes Appendectomy: No Cardiac Surgery: Yes (pacemaker and stents) Cholecystectomy: Yes GI Surgery: Yes (CHOLECYSTECTOMY, HYSTERECTOMY) Lung Surgery: No Neurologic Surgery: No Orthopedic Surgery: Yes (bilateral knee replacement) - Immunization History Immunization Up to Date: No - Psycho Social/Smoking Cessation Hx Smoking Status: No Smoking History: Unknown if ever smoked Have you smoked in the past 12 months: No Number of Cigarettes Smoked Daily: 0 Hx Alcohol Use: No Drug/Substance Use Hx: No Substance Use Type: None Hx Substance Use Treatment: No Review of Systems - Review of Systems Comments:: General: No fevers, no chills, no weight or appetite change, no malaise, + sweating HEENT: No changes in vision, no changes in hearing, no congestion, no sore throat CV: + chest pain, no palpitations, no LE edema Pulm: No SOB, no cough, no wheezing GI: No nausea or vomiting, no change in bowel habits, no melena : No frequency, no urgency, no dysuria Musc: No back pain, no joint swelling, no recent injury Skin: No rash, no lesions, no erythema Endo: No excessive thirst, no heat/cold intolerance Heme: No unusual bruising or bleeding, no swollen glands Neuro: No syncope, no numbness/tingling, no focal weakness Vasc: No claudication Psych: No recent change in mood, no SI or HI *Physical Exam - Vital Signs Last Vital Signs Temp Pulse Resp BP Pulse Ox 97.9 F 117 H 22 H 127/94 100 12/26/19 12:35 12/26/19 12:35 12/26/19 12:35 12/26/19 12:35 12/26/19 12:35 - Physical Exam General: Comfortable, no acute distress HEENT: PERRL, EOMI, MMM, voice normal, normal neck ROM Cards: RRR, no murmur appreciated. Reproducible left chest wall pain Pulm: Comfortable on room air, clear to auscultation bilaterally Abd: Soft, nontender, nondistended Ext: Atraumatic. No LE edema. ROM intact. WWP Skin: Normal color, no rashes or lesions Neuro: A&Ox3, CN grossly intact, normal speech, motor/sensory grossly intact and symmetric Psych: Mood appropriate to situation ED Treatment Course - LABORATORY CBC & Chemistry Diagram: 12/26/19 13:10 12/26/19 13:10 - ADDITIONAL ORDERS Additional order review: 12/26/19 13:10 RBC 4.81 MCV 82.3 MCHC 31.4 L RDW 17.5 H MPV 10.0 Neutrophils % 68.1 Lymphocytes % 23.3 D Monocytes % 6.2 Eosinophils % 1.5 D Basophils % 0.9 - RADIOLOGY Radiology Studies Ordered: Category Date Time Status CHEST PA & LAT [RAD] Stat Radiology 12/26/19 13:03 Ordered Medical Decision Making - Medical Decision Making 12/26/19 13:31 Madhuri Cho is a 59yo woman with a PMH of CHF, nonischemic cardiomyopathy s/p PPM , ? prior [place] (reports in [place] 2009, 2x stents placed), a-fib, CKD, DM, HTN , COPD, hypothyroidism (hashimotos), OA who presents to the ED with left-sided chest and arm pain since last night that started while she was laying in bed. She endorses associated sweating. - Reproducible left chest and left arm pain may be musculoskeletal, but pt has significant cardiac history. Chest pain w/ sweating is concerning for possible ACS - CBC, CMP, trop, EKG, CXR - Acetaminophen for pain 12/26/19 14:52 - Labs reviewed. No significant change from prior, but trop 0.08. Most recent also measurable trops, but has been negative in the past - Feels improved following acetaminophen - EKG w/ sinus tachycardia, HR 109, LBBB, prolonged QTc at 509. Several PVCs. Unchanged from prior. - Will verify that pt had ASA at home. If not, will order now - Given chest pain, detectable trop, will need to be admitted 12/26/19 15:09 - Pt took ASA 81, will give additional 162mg - Agrees to admission for ACS workup - Spoke to Dr Lewis. Will admit to telemetry 12/26/19 15:49 - Advised by nurse, Stefania, that pt has low BP 90's/50's. Reviewed chart, has had similar values many times in the past. Will continue to monitor on tele Discussed with Dr Marychuy Nash PGY2 Discharge - Discharge Information Problems reviewed: Yes Clinical Impression/Diagnosis: Elevated troponin Chest pain Qualifiers: Chest pain type: unspecified Qualified Code(s): R07.9 - Chest pain, unspecified - Admission Yes - Follow up/Referral - Patient Discharge Instructions - Post Discharge Activity
[2019-12-26] MEDS ORDERED: ACETAMINOPHEN INJECTION 100 ML IVPB ONE (13:48)
--- NOTE | 2019-12-26 14:05 | PDOC ---
Attending Attestation - Resident Resident Name: CharityCally - ED Attending Attestation I have performed the following: I have examined & evaluated the patient, The case was reviewed & discussed with the resident, I agree w/resident's findings & plan - HPI HPI: 12/26/19 14:48 59 y/o female with PMH of Nonischemic Cardiomyopathy (s/p pacemaker), CHF/LV systolic dysfunction s/p ICD, pAfib, CAD s/p PCI x2, COPD/Asthma, HTN, CKD, HLD , hypothyroidism, arthritis presenting with left sided chest pain to arm since last night. 12/26/19 16:04 - Physicial Exam PE: 12/26/19 14:05 Agree with the resident's HPI and PE as documented in the electronic medical record. NAD, obese. EOMI, PERRL, nl conjunctiva, anicteric; neck supple. lungs clear, RRR, abdomen soft nontender. No rebound, no guarding. Back nontender. LUKE x4, no focal neuro deficits. No peripheral edema. normal color for ethnicity, WWP. 12/26/19 16:03 - Medical Decision Making 12/26/19 14:05 Vital Signs Temp Pulse Resp BP Pulse Ox 97.9 F 117 H 22 H 127/94 100 12/26/19 12:35 12/26/19 12:35 12/26/19 12:35 12/26/19 12:35 12/26/19 12:35 VS reviewed, tachy likely related to pain normotensive no fever, nontoxic. DDx chest pain: ACS, coronary vasospasm, NSTEMI, arrhythmia, unstable angina, PE , dissection, PUD, esophageal spasm, GERD, gastritis, costochondritis, pneumonia , pleurisy, pericarditis/myocarditis. dehydration, electrolyte/metabolic derangements. Considered but clinically doubt based on HPI and PE: Low suspicion for pulmonary embolism or dissection. Chest pain negative: No evidence of ACS, pericarditis, myocarditis, pulmonary embolism, pneumothorax, pneumonia, Zoster, or esophageal perforation. Historically not abrupt in onset, tearing or ripping, pulses symmetric, no evidence of aortic dissection. 12/26/19 15:57 labs and lytes unremarkable. trop 0.08, elevated, given ASA feels dizzy, IVF given as well as analgesia. HR normalized at bedside 88-90 bpm on monitor, no events. trend trop/ekg, tele monitor observation admission for r/o ACS, monitoring and pain control 12/26/19 16:05 Heart Score/ECG Review #1 ECG reviewed & interpreted by me at: 12:35 General ECG Interpretation: Sinus Rhythm Compared to previous ECG there are: No significant change 12/26/19 14:07 EKG sinus tachycardia 109 bpm, no interval abnormalities, wide QRS, LBBB, ST and T wave segments and morphology normal. Nonspecific T wave abnormalities 12/26/19 14:10
[2019-12-26 14:11] LABS: ALBUMIN 3.4 g/dl (3.4-5.0); BILIRUBIN,TOTAL 0.3 mg/dL (0.2-1); BLOOD UREA NITROGEN 11.2 mg/dL (7-18); CALCIUM 9.3 mg/dL (8.5-10.1); CREATININE 1.2 mg/dL (0.55-1.3); POTASSIUM 4.6 mmol/L (3.5-5.1); TOT PROT 7.3 g/dl (6.4-8.2)
[2019-12-26] MEDS ORDERED: ASPIRIN COATED 81 MG TABLET.EC ONE (15:06)
[2019-12-26] MEDS ORDERED: ASPIRIN 81 MG CHEWABLE TABLETS PO ONE (15:06)
[2019-12-26] MEDS ORDERED: SODIUM CHLORIDE 0.9% 500 ML INFUS.BAG IV ONE (16:03)
[2019-12-26 17:30] VITALS: BMI 42.0
[2019-12-26] MEDS ORDERED: ALBUTEROL SO4 2.5/IPRATROPIUM 0.5 INH SOL 3 ML VIAL.NEB. NEB PRN (19:32)
--- NOTE | 2019-12-26 19:34 | HP ---
Admitting History and Physical - Past Medical History Cardiovascular: Yes: CHF, HTN, Hyperlipdemia Pulmonary: Yes: Asthma, Sleep Apnea Renal/: Yes: Renal Failure ...: No Endocrine: Yes: Diabetes Mellitus, Hypothyroidism - Past Surgical History Past Surgical History: Yes: Cholecystectomy, Joint Replacement (left tkr), Permanent Pacemaker (ICD) - Smoking History Smoking history: Unknown if ever smoked Have you smoked in the past 12 months: No Aproximately how many cigarettes per day: 0 - Alcohol/Substance Use Hx Alcohol Use: No - Social History ADL: Independent History of Recent Travel: No Home Medications - Allergies Allergies/Adverse Reactions: Allergies Allergy/AdvReac Type Severity Reaction Status Date / Time tomato Allergy Mild Hives Verified 12/26/19 12:44 chlorpheniramine Allergy Verified 12/26/19 12:44 cimetidine Allergy Verified 12/26/19 12:44 codeine [Codeine] Allergy Verified 12/26/19 12:44 ibuprofen Allergy Verified 12/26/19 12:44 latex [Latex] Allergy Verified 12/26/19 12:44 Latex, Natural Rubber Allergy Verified 12/26/19 12:44 pseudoephedrine Allergy Verified 12/26/19 12:44 salmeterol xinafoate Allergy Verified 12/26/19 12:44 [From Advair Diskus] shellfish derived Allergy Verified 12/26/19 12:44 Sulfa (Sulfonamide Allergy Verified 12/26/19 12:44 Antibiotics) [Sulfa(Sulfonamide Antibiotics)] Chocolate Allergy Mild Hives Uncoded 12/26/19 12:44 shrimp Allergy Mild Hives Uncoded 12/26/19 12:44 - Home Medications Home Medications: Ambulatory Orders Insulin Glargine,Hum.rec.anlog [Lantus Solostar PEN -] 20 units SQ AM 08/09/16 Budesonide/Formeterol Fumarate [SYMBICORT 160/4.5mcg -] 2 puff PO BID 10/14/16 Albuterol 2.5/Ipratropium 0.5 [Duoneb -] 1 amp NEB Q6H PRN #90 amp 05/21/19 Levothyroxine [Synthroid -] 75 mcg PO DAILY #30 tablet 05/21/19 Insulin Glargine,Hum.rec.anlog [Lantus Solostar PEN -] 10 units SQ HS 08/13/19 Metoprolol Succinate [Toprol XL -] 25 mg PO DAILY 10/10/19 Apixaban [Eliquis -] 5 mg PO BID 11/02/19 Dexlansoprazole [Dexilant -] 60 mg PO DAILY 11/02/19 Linaclotide [Linzess] 290 mcg PO DAILY 11/02/19 Sacubitril/Valsartan [Entresto 24 mg-26 mg Tablet] 1 each PO ASDIR 11/02/19 Furosemide [Lasix -] 20 mg PO DAILY #30 tablet 11/06/19 Albuterol 0.083% Nebulizer Jyothi [Ventolin 0.083% Nebulizer Soln -] 1 amp NEB Q4H PRN amp 12/13/19 Spironolactone [Aldactone -] 25 mg PO DAILY tablet 12/13/19 Physical Examination Vital Signs: Vital Signs Temperature 98.8 F 12/26/19 18:00 Pulse Rate 90 12/26/19 18:00 Respiratory Rate 20 12/26/19 18:00 Blood Pressure 121/77 12/26/19 18:00 O2 Sat by Pulse Oximetry (%) 99 12/26/19 16:09 Labs: CBC, BMP 12/26/19 13:10 12/26/19 13:10
[2019-12-26] MEDS: APIXABAN 5 MG TABLET PO SCH (21:26)
[2019-12-26] MEDS: INSULIN SLIDING SCALE (NOVOLOG) 1 VIAL SQ SCH (21:27)
[2019-12-26] MEDS: SACUBITRIL/VALSARTAN 24 MG-26 MG TABLET PO SCH (22:42)
[2019-12-26] MEDS: BUDESONIDE/FORMETEROL FUMARATE 160/4.5 mcg INHALER IH SCH (22:42)
[2019-12-27] MEDS: INSULIN SLIDING SCALE (NOVOLOG) 1 VIAL SQ SCH ×2 (06:22→11:58)
[2019-12-27] MEDS ORDERED: LEVOTHYROXINE NA 75 MCG TABLET (FP) PO SCH (07:00)
[2019-12-27 07:14] LABS: BASO % 0.7 % (0-2.0); EOS % 2.6 % (0-4.5); HEMATOCRIT 33.6 % (32.4-45.2); HEMOGLOBIN 10.8 GM/dL (10.7-15.3); LYMPH % 42.4 % (8-40); MCH 26.1 pg (25.7-33.7); MEAN CELL VOLUME 81.6 fl (80-96); MEAN PLT VOLUME 9.3 fl (7.5-11.1); MONO % 6.6 % (3.8-10.2); NEUT % 47.7 % (42.8-82.8); PLATELET COUNT 203 K/MM3 (134-434); RBC 4.12 M/mm3 (3.60-5.2); RDW 17.8 % (11.6-15.6); WHITE BLOOD COUNT 5.6 K/mm3 (4.0-10.0)
[2019-12-27 08:10] LABS: BILIRUBIN,TOTAL 0.4 mg/dL (0.2-1); BLOOD UREA NITROGEN 9.1 mg/dL (7-18); CALCIUM 9.2 mg/dL (8.5-10.1); POTASSIUM 4.3 mmol/L (3.5-5.1); TOT PROT 6.2 g/dl (6.4-8.2)
[2019-12-27] MEDS ORDERED: PT OWN MED DRAWER 7, Y5N ONE (09:18)
[2019-12-27] MEDS: SACUBITRIL/VALSARTAN 24 MG-26 MG TABLET PO SCH (09:31)
[2019-12-27] MEDS: APIXABAN 5 MG TABLET PO SCH (09:31)
[2019-12-27] MEDS: BUDESONIDE/FORMETEROL FUMARATE 160/4.5 mcg INHALER IH SCH (09:32)
[2019-12-27] MEDS ORDERED: SPIRONOLACTONE 25 MG TABLET (FP) PO SCH (10:00)
[2019-12-27] MEDS ORDERED: metoPROLOL SUCCINATE 25 MG TAB.SR.24H (FP) PO SCH (10:00)
[2019-12-27] MEDS ORDERED: ASPIRIN COATED 81 MG TABLET.EC PO SCH (10:00)
[2019-12-27] MEDS ORDERED: FUROSEMIDE 20 MG TABLET (FP) PO SCH (10:00)
[2019-12-27] MEDS ORDERED: PANTOPRAZOLE 40 MG TABLET PO SCH (10:00)
[2019-12-27 11:34] VITALS: TEMP 98.3
--- NOTE | 2019-12-27 11:39 | CON.CARD ---
Consult Consult Specialty:: CV - History of Present Illness Chief Complaint: cp History of Present Illness: 59 F here with cp. shortly before midnight on 12/25 she developed pain L pectoral region, radiating all the way down entire L arm to fingers. assctd numbness in arm as well. + signif pleuritic exacerbation, ditto if lay on L side or moved torso (e.g. rolling over or sitting up in bed). lasted all night and then the next day--told aunt (RN) at [facility] who noted pt diaphoretic and tachy on exam. advised she go to ER. pt says the pain persisted all day yest, resolved today. never felt this before. currently no cp, sob, palp, presyncope PMH: morbid obesity nonisch CMP AF HTN - Past Medical History Cardio/Vascular: Yes: CHF, HTN, Hyperlipdemia Pulmonary: Yes: Asthma, Sleep Apnea Renal/: Yes: Renal Failure ...: No Endocrine: Yes: Diabetes Mellitus, Hypothyroidism - Past Surgical History Past Surgical History: Yes: Cholecystectomy, Joint Replacement (left tkr), Permanent Pacemaker (ICD) - Alcohol/Substance Use Hx Alcohol Use: No - Smoking History Smoking history: Unknown if ever smoked Have you smoked in the past 12 months: No Aproximately how many cigarettes per day: 0 - Social History Usual Living Arrangement: With Spouse ADL: Independent History of Recent Travel: No Home Medications - Allergies Allergies/Adverse Reactions: Allergies Allergy/AdvReac Type Severity Reaction Status Date / Time tomato Allergy Mild Hives Verified 12/26/19 12:44 chlorpheniramine Allergy Verified 12/26/19 12:44 cimetidine Allergy Verified 12/26/19 12:44 codeine [Codeine] Allergy Verified 12/26/19 12:44 ibuprofen Allergy Verified 12/26/19 12:44 latex [Latex] Allergy Verified 12/26/19 12:44 Latex, Natural Rubber Allergy Verified 12/26/19 12:44 pseudoephedrine Allergy Verified 12/26/19 12:44 salmeterol xinafoate Allergy Verified 12/26/19 12:44 [From Advair Diskus] shellfish derived Allergy Verified 12/26/19 12:44 Sulfa (Sulfonamide Allergy Verified 12/26/19 12:44 Antibiotics) [Sulfa(Sulfonamide Antibiotics)] Chocolate Allergy Mild Hives Uncoded 12/26/19 12:44 shrimp Allergy Mild Hives Uncoded 12/26/19 12:44 - Home Medications Home Medications: Ambulatory Orders Insulin Glargine,Hum.rec.anlog [Lantus Solostar PEN -] 20 units SQ AM 08/09/16 Budesonide/Formeterol Fumarate [SYMBICORT 160/4.5mcg -] 2 puff PO BID 10/14/16 Albuterol 2.5/Ipratropium 0.5 [Duoneb -] 1 amp NEB Q6H PRN #90 amp 05/21/19 Levothyroxine [Synthroid -] 75 mcg PO DAILY #30 tablet 05/21/19 Insulin Glargine,Hum.rec.anlog [Lantus Solostar PEN -] 10 units SQ HS 08/13/19 Metoprolol Succinate [Toprol XL -] 25 mg PO DAILY 10/10/19 Apixaban [Eliquis -] 5 mg PO BID 11/02/19 Dexlansoprazole [Dexilant -] 60 mg PO DAILY 11/02/19 Linaclotide [Linzess] 290 mcg PO DAILY 11/02/19 Sacubitril/Valsartan [Entresto 24 mg-26 mg Tablet] 1 each PO ASDIR 11/02/19 Furosemide [Lasix -] 20 mg PO DAILY #30 tablet 11/06/19 Albuterol 0.083% Nebulizer Jyothi [Ventolin 0.083% Nebulizer Soln -] 1 amp NEB Q4H PRN amp 12/13/19 Spironolactone [Aldactone -] 25 mg PO DAILY tablet 12/13/19 Family Medical History Family History: Denies (no known cmp) Review of Systems - Review of Systems Constitutional: denies: Chills, Fever Eyes: denies: Eye Pain HENT: denies: Nasal Congestion Neck: denies: Stiffness Cardiovascular: denies: Palpitations Respiratory: denies: Orthopnea, PND Gastrointestinal: denies: Diarrhea, Rectal Bleeding Genitourinary: denies: Burning, Hematuria Musculoskeletal: denies: Muscle Pain Integumentary: denies: Rash Neurological: denies: Numbness, Seizure, Syncope Endocrine: denies: Excessive Sweating Hematology/Lymphatic: denies: Excessive Bleeding Vital Signs: Vital Signs Temperature 98.3 F 12/27/19 10:00 Pulse Rate 86 12/27/19 10:00 Respiratory Rate 20 12/27/19 10:00 Blood Pressure 134/75 12/27/19 10:00 O2 Sat by Pulse Oximetry (%) 99 12/26/19 16:09 Constitutional: Yes: Well Nourished, No Distress, Obese Eyes: No: Sclera Icterus HENT: No: Nasal Congestion Neck: No: Decreased ROM Respiratory: Yes: CTA Bilaterally. No: Accessory Muscle Use, Rales, Wheezes Gastrointestinal: Yes: Normal Bowel Sounds. No: Distention, Hepatomegaly, Palpable Mass, Tenderness Cardiovascular: Yes: Regular Rate and Rhythm JVD: No Carotid Bruit: No PMI: Non-Displaced Heart Sounds: Yes: S1, S2. No: Gallop Murmur: No: Systolic Murmur, Diastolic Murmur Musculoskeletal: Yes: Other (No kyphosis) Extremities: No: Cool, Cyanosis Edema: No Peripheral Pulses: 2+ Left Carotid, 2+ Right Carotid, 2+ Left Doralis Pedis, 2+ Right Dorsalis Pedis Integumentary: No: Jaundice Neurological: Yes: Alert, Oriented (x3) Psychiatric: No: Agitated - Other Data Labs, Other Data: CBC, BMP 12/27/19 05:40 12/27/19 05:40 INR, PTT INR 1.26 (0.83-1.09) H 12/26/19 13:10 Troponin, BNP 12/26/19 12/26/19 12/27/19 13:10 19:48 05:40 Troponin I 0.08 H 0.10 H 0.10 H Troponin, BNP 12/26/19 12/26/19 12/27/19 13:10 19:48 05:40 Troponin I 0.08 H 0.10 H 0.10 H Assessment/Plan Cardiac Catheterization (non-obstructive CAD) echo 05/2019 tds, mildly dilated LV, severe global hypok, RV nl CXR: clear lungs/pleura EKG: sinus tach, LBBB unchanged vs prior tele: sinus chest pain: -pain atypical, with features strongly suggestive of mskel etiology (pleuritic, related to position of torso/arms). + tender over chest wall. -trop indeterminate range, flat trend, unchanged vs priors--sec to CHF. not c/w ACS -ECG old LBBB -will clarify with dr whitaker timing of cath (no obstructive CAD at that time)--if recent, will defer stress testing given non-cardiac features -rec prn Tyenol > NSAIDs, though 7 day or less course of PRN NSAIDs should be ok with close monitoring of HF status as outpt chronic systolic HF, s/p ICD - recent RHC/LHC at [facility] reportedly no significant findings - CXR no congestion, appears euvolemic - cont entresto, spironolactone, metoprolol = home regimen - cont PO lasix - outpatient ICD monitoring copd/asthma: - manage per primary HTN: - bp controlled - same meds paroxysmal afib - in sinus here--cont home bb - cont home eliquis for AC (5 bid) HLD - cont statin
--- NOTE | 2019-12-27 14:09 | EKG ---
Test Reason : Blood Pressure : / mmHG Vent. Rate : 109 BPM Atrial Rate : 109 BPM P-R Int : 136 ms QRS Dur : 126 ms QT Int : 378 ms P-R-T Axes : 061 -28 083 degrees QTc Int : 509 ms SINUS TACHYCARDIA WITH OCCASIONAL PREMATURE VENTRICULAR COMPLEXES LEFT BUNDLE BRANCH BLOCK LEFT AXIS DEVIATION ABNORMAL ECG WHEN COMPARED WITH ECG OF 11-DEC-2019 08:32, NO SIGNIFICANT CHANGE WAS FOUND Confirmed by Asmita Berg ([id number]) on 12/27/2019 2:08:29 PM Referred By: Confirmed By:Asmita Berg
[2019-12-27 14:11] VITALS: BP 112/74; PULSE 83
== END 2019-12-27 16:10 | disposition home or self-care (01) ==
LOC: JER 12:29 → JERBED 15:11 → UNDOADMOB 15:11 → J4W 16:36 → JERBED 16:36 → OBSVTOIN 19:30 → INTOOBSV 19:30 → JERBED 12-27 10:23 → J4W 12-27 10:23
PROVIDERS: ADMIT Internal Medicine; ATTEND Internal Medicine
PROC: 3E033NZ Introduction of Analgesics, Hypnotics, Sedatives into Peripheral Vein, Percutaneous Approach (ICD-10-PCS; principal; 2019-12-27)
PROC: 3E0337Z Introduction of Electrolytic and Water Balance Substance into Peripheral Vein, Percutaneous Approach (ICD-10-PCS; 2019-12-27)
PROC: 3E013VG Introduction of Insulin into Subcutaneous Tissue, Percutaneous Approach (ICD-10-PCS; 2019-12-27)
PROC: 3E0F7GC Introduction of Other Therapeutic Substance into Respiratory Tract, Via Natural or Artificial Opening (ICD-10-PCS; 2019-12-27)
DX: R07.89 Other chest pain (principal); R77.8 Other specified abnormalities of plasma proteins; E11.22 Type 2 diabetes mellitus with diabetic chronic kidney disease; I13.0 Hypertensive heart and chronic kidney disease with heart failure and stage 1 through stage 4 chronic kidney disease, or unspecified chronic kidney disease; N18.9 Chronic kidney disease, unspecified; I50.22 Chronic systolic (congestive) heart failure; Z79.4 Long term (current) use of insulin; E03.9 Hypothyroidism, unspecified; J44.9 Chronic obstructive pulmonary disease, unspecified; I48.0 Paroxysmal atrial fibrillation; E78.5 Hyperlipidemia, unspecified; R00.0 Tachycardia, unspecified; M19.90 Unspecified osteoarthritis, unspecified site; I25.2 Old myocardial infarction; F32.9 Major depressive disorder, single episode, unspecified; I42.9 Cardiomyopathy, unspecified; G47.30 Sleep apnea, unspecified; I44.7 Left bundle-branch block, unspecified; E66.01 Morbid (severe) obesity due to excess calories; Z68.41 Body mass index [BMI] 40.0-44.9, adult; Z79.01 Long term (current) use of anticoagulants; Z95.1 Presence of aortocoronary bypass graft; Z95.5 Presence of coronary angioplasty implant and graft; Z91.018 Allergy to other foods; Z88.2 Allergy status to sulfonamides; Z88.4 Allergy status to anesthetic agent; Z88.5 Allergy status to narcotic agent; Z88.6 Allergy status to analgesic agent; Z88.8 Allergy status to other drugs, medicaments and biological substances; Z96.652 Presence of left artificial knee joint
CPT/HCPCS: 36415; 71045-TC-FY; 80053; 82550; 82962; 84484; 85025; 85610; 85730; 93005; 93010; 94640; 96372; 96374; 99285-25; G0378; J0131

== ENCOUNTER 2020-01-04 19:30 | Emergency (ER) | payer OTHER ==
[2020-01-04 19:37] VITALS: BP 150/97; PULSE 110; TEMP 97.9; BMI 39.9
[2020-01-04] MEDS ORDERED: ALBUTEROL SO4 2.5/IPRATROPIUM 0.5 INH SOL 3 ML VIAL.NEB. NEB ONE ×3 (19:37→23:29)
[2020-01-04] MEDS ORDERED: predniSONE 20 MG TABLET (UD) PO ONE (19:43)
--- NOTE | 2020-01-04 19:43 | PDOC ---
Rapid Medical Evaluation Time Seen by Provider: 01/04/20 19:37 Medical Evaluation: Allergies Allergy/AdvReac Type Severity Reaction Status Date / Time tomato Allergy Mild Hives Verified 01/04/20 19:37 chlorpheniramine Allergy Verified 01/04/20 19:37 cimetidine Allergy Verified 01/04/20 19:37 codeine [Codeine] Allergy Verified 01/04/20 19:37 ibuprofen Allergy Verified 01/04/20 19:37 latex [Latex] Allergy Verified 01/04/20 19:37 Latex, Natural Rubber Allergy Verified 01/04/20 19:37 pseudoephedrine Allergy Verified 01/04/20 19:37 salmeterol xinafoate Allergy Verified 01/04/20 19:37 [From Advair Diskus] shellfish derived Allergy Verified 01/04/20 19:37 Sulfa (Sulfonamide Allergy Verified 01/04/20 19:37 Antibiotics) [Sulfa(Sulfonamide Antibiotics)] Chocolate Allergy Mild Hives Uncoded 01/04/20 19:37 shrimp Allergy Mild Hives Uncoded 01/04/20 19:37 Vital Signs Temp Pulse Resp BP Pulse Ox 97.9 F 110 H 22 H 150/97 98 01/04/20 19:34 01/04/20 19:34 01/04/20 19:34 01/04/20 19:34 01/04/20 19:34 01/04/20 19:42 Pt c/o: wheezing , sob, hx asthma Pt on brief exam: exp wheeze gopi, vss pt ordered for: duoneb, prednisone Pt to proceed to the ED Discharge Disposition - Diagnosis Asthma exacerbation - Discharge Dispostion Disposition: HOME Condition at time of disposition: Stable - Prescriptions Prescriptions: predniSONE [Deltasone -] 20 mg PO BID #10 tablet - Referrals Referrals: Reece Lanza MD [Primary Care Provider] - - Patient Instructions Printed Discharge Instructions: DI for Asthma -- Adult Additional Instructions: Please take your breathing treatment at home as prescribed every 4 hours along with Prednisone 2 times a day for 5 days. See your Primary Doctor within the next 48 hours. Return to the ER for new or concerning symptoms including but not limited to: difficulty breathing, chest pain, wheezing. Thank you - Post Discharge Activity
[2020-01-04] MEDS ORDERED: predniSONE 20 MG TABLET (UD) ONE (23:30)
[2020-01-04] MEDS ORDERED: ACETAMINOPHEN 325 MG TABLET (FP) PO ONE (23:34)
--- NOTE | 2020-01-04 23:35 | PDOC ---
History of Present Illness - General Chief Complaint: Shortness of Breath Stated Complaint: ASTHMA Time Seen by Provider: 01/04/20 19:37 History Source: Patient Exam Limitations: No Limitations - History of Present Illness Initial Comments: 01/04/20 23:34 59 yo female pmh asthma presents with SOB and wheezing. States it feels just like past asthma exacerbations. Denies hx of intubation or home O2 use. Denies f /c/n/v, CP, back pain, abdominal pain, recent travel, sick contacts, changes in bowel or bladder habits Past History - Past Medical History Allergies/Adverse Reactions: Allergies Allergy/AdvReac Type Severity Reaction Status Date / Time tomato Allergy Mild Hives Verified 01/04/20 19:37 chlorpheniramine Allergy Verified 01/04/20 19:37 cimetidine Allergy Verified 01/04/20 19:37 codeine [Codeine] Allergy Verified 01/04/20 19:37 ibuprofen Allergy Verified 01/04/20 19:37 latex [Latex] Allergy Verified 01/04/20 19:37 Latex, Natural Rubber Allergy Verified 01/04/20 19:37 pseudoephedrine Allergy Verified 01/04/20 19:37 salmeterol xinafoate Allergy Verified 01/04/20 19:37 [From Advair Diskus] shellfish derived Allergy Verified 01/04/20 19:37 Sulfa (Sulfonamide Allergy Verified 01/04/20 19:37 Antibiotics) [Sulfa(Sulfonamide Antibiotics)] Chocolate Allergy Mild Hives Uncoded 01/04/20 19:37 shrimp Allergy Mild Hives Uncoded 01/04/20 19:37 Home Medications: Ambulatory Orders Insulin Glargine,Hum.rec.anlog [Lantus Solostar PEN -] 20 units SQ AM 08/09/16 Budesonide/Formeterol Fumarate [SYMBICORT 160/4.5mcg -] 2 puff PO BID 10/14/16 Albuterol 2.5/Ipratropium 0.5 [Duoneb -] 1 amp NEB Q6H PRN #90 amp 05/21/19 Levothyroxine [Synthroid -] 75 mcg PO DAILY #30 tablet 05/21/19 Insulin Glargine,Hum.rec.anlog [Lantus Solostar PEN -] 10 units SQ HS 08/13/19 Metoprolol Succinate [Toprol XL -] 25 mg PO DAILY 10/10/19 Apixaban [Eliquis -] 5 mg PO BID 11/02/19 Dexlansoprazole [Dexilant -] 60 mg PO DAILY 11/02/19 Linaclotide [Linzess] 290 mcg PO DAILY 11/02/19 Sacubitril/Valsartan [Entresto 24 mg-26 mg Tablet] 1 each PO ASDIR 11/02/19 Furosemide [Lasix -] 20 mg PO DAILY #30 tablet 11/06/19 Albuterol 0.083% Nebulizer Jyothi [Ventolin 0.083% Nebulizer Soln -] 1 amp NEB Q4H PRN amp 12/13/19 Spironolactone [Aldactone -] 25 mg PO DAILY tablet 12/13/19 Aspirin Coated [Ecotrin -] 81 mg PO DAILY #30 tablet.ec 12/27/19 predniSONE [Deltasone -] 20 mg PO BID #10 tablet 01/05/20 Anemia: Yes Asthma: Yes Cancer: No Cardiac Disorders: Yes ([place] X 2, pacemaker) CVA: No COPD: Yes CHF: Yes (S/P ICD) DVT: No Dementia: No Diabetes: Yes GI Disorders: Yes (PEPTIC ULCER) Disorders: No HTN: Yes Hypercholesterolemia: Yes Liver Disease: No Psychiatric Problems: Yes (DEPRESSION) Seizures: No Thyroid Disease: Yes - Surgical History Abdominal Surgery: Yes Appendectomy: No Cardiac Surgery: Yes (pacemaker and stents) Cholecystectomy: Yes GI Surgery: Yes (CHOLECYSTECTOMY, HYSTERECTOMY) Lung Surgery: No Neurologic Surgery: No Orthopedic Surgery: Yes (bilateral knee replacement) - Immunization History Immunization Up to Date: No - Psycho Social/Smoking Cessation Hx Smoking Status: No Smoking History: Never smoked Have you smoked in the past 12 months: No Number of Cigarettes Smoked Daily: 0 Hx Alcohol Use: No Drug/Substance Use Hx: No Substance Use Type: None Hx Substance Use Treatment: No Review of Systems - Review of Systems Constitutional: Yes: See HPI HEENTM: Yes: See HPI Respiratory: Yes: See HPI Cardiac (ROS): Yes: See HPI ABD/GI: Yes: See HPI : Yes: See HPI Musculoskeletal: Yes: See HPI Integumentary: Yes: See HPI Neurological: Yes: See HPI *Physical Exam - Vital Signs Last Vital Signs Temp Pulse Resp BP Pulse Ox 97.9 F 110 H 22 H 150/97 98 01/04/20 19:34 01/04/20 19:34 01/04/20 19:34 01/04/20 19:34 01/04/20 19:34 - Physical Exam General Appearance: Yes: Nourished, Appropriately Dressed. No: Apparent Distress HEENT: positive: EOMI Neck: positive: Supple. negative: Carotid bruit Respiratory/Chest: positive: Wheezing (diffuse). negative: Crackles, Rales, Rhonchi, Stridor Cardiovascular: positive: Regular Rhythm, S1, S2, Tachycardia. negative: Edema Vascular Pulses: Dorsalis-Pedis (R): 3+, Doralis-Pedis (L): 3+ Gastrointestinal/Abdominal: positive: Flat, Soft. negative: Pulsatile Mass, Distended, Guarding, Rebound, Tenderness Musculoskeletal: negative: CVA Tenderness Extremity: positive: Normal Capillary Refill, Normal Inspection Integumentary: positive: Normal Color, Dry, Warm Neurologic: positive: Fully Oriented, Alert, Normal Mood/Affect, Normal Response ED Treatment Course - Medications Given in the ED: ED Medications Discontinued Medications Generic Name Dose Route Start Last Admin Trade Name Freq PRN Reason Stop Dose Admin Albuterol/Ipratropium 1 amp 01/04/20 19:37 01/04/20 20:24 Duoneb - NEB 01/04/20 19:38 1 amp ONCE ONE Administration Prednisone 60 mg 01/04/20 19:43 01/04/20 23:33 Deltasone - PO 01/04/20 19:44 60 mg ONCE ONE Administration Medical Decision Making - Medical Decision Making 59 yo female pmh asthma presents to ED with wheezing on exam diffuse wheezing noted vitals show elevate RR and elevated HR Pt given tylenol for AGUERO and multiple duo nebs and steroids pt reports improvement of symptoms, on exam no longer wheezing. Pt states she feels well to go home, will take steroid taper strict return precautions given Discharge - Discharge Information Problems reviewed: Yes Clinical Impression/Diagnosis: Asthma exacerbation Condition: Stable Disposition: HOME - Admission No - Additional Discharge Information Prescriptions: predniSONE [Deltasone -] 20 mg PO BID #10 tablet - Follow up/Referral Referrals: Reece Lanza MD [Primary Care Provider] - - Patient Discharge Instructions Patient Printed Discharge Instructions: DI for Asthma -- Adult Additional Instructions: Please take your breathing treatment at home as prescribed every 4 hours along with Prednisone 2 times a day for 5 days. See your Primary Doctor within the next 48 hours. Return to the ER for new or concerning symptoms including but not limited to: difficulty breathing, chest pain, wheezing. Thank you - Post Discharge Activity
--- NOTE | 2020-01-05 00:15 | PDOC ---
Documentation entered by Milena Chaney SCRIBE, acting as scribe for Letty Richards MD. Letty Richards MD: This documentation has been prepared by the Ritu siegel Nirvannie, SCRIBE, under my direction and personally reviewed by me in its entirety. I confirm that the documentation accurately reflects all work, treatment, procedures, and medical decision making performed by me. Attending Attestation - Resident Resident Name: Hieu Lara - ED Attending Attestation I have performed the following: I have examined & evaluated the patient, The case was reviewed & discussed with the resident, I agree w/resident's findings & plan, Exceptions are as noted - HPI HPI: 01/04/20 23:41 The patient is a year old female, with a significant past medical history of DM , HTN, HLD, Nonischemic cardiomyopathy (s/p pacemaker), COPD, CHF, hypothyroidism 2/2 hashimotos, NSTEMI, and CKD, who presents to the emergency department with shortness of breath and cough. She denies any fevers or chills. Allergies: chlorpheniramine, cimetidine, codeine, ibuprofen, latex Past surgical Hx: hysterectomy, cholecystectomy, b/l knee surgery, 2 toes amputated Primary Care Physician: Dr. Suni Lanza Endless Track Vehicle Supervisor: Dr. Mooney Analytics Manager: Dr. Lee - Physicial Exam PE: 01/04/20 23:49 59-year-old female presents because of asthma exacerbation Head normocephalic atraumatic Neck is supple, no JVD Lungs patient has already had several breathing treatments she does have breath sounds in all lung [place] CVS tachycardia Abdomen protuberant but nontender Skin warm and dry Extremities no deformities Neuro alert and oriented x3, ambulatory in the ER - Medical Decision Making 01/04/20 23:50 Patient has an extensive past medical history and has a diabetes, hypertension, COPD, systolic congestive heart failure, hypothyroidism, chronic kidney disease , A. fib, nonischemic cardiomyopathy status post permanent pacemaker and hyperlipidemia and sleep apnea Past surgical history significant for cholecystectomy, left knee total replacement, permanent pacemaker 01/04/20 23:51 Patient has been conversant, ambulatory speaking in full sentences She is not currently in any acute respiratory distress 01/05/20 01:09 Patient feels much better after bronchodilators and steroids Patient is requesting to go home Impression asthma exacerbation resolved discharge home
[2020-01-05] MEDS: ALBUTEROL SO4 2.5/IPRATROPIUM 0.5 INH SOL 3 ML VIAL.NEB. NEB PRN ×2 (00:30→00:34)
[2020-01-05] MEDS ORDERED: ACETAMINOPHEN 325 MG TABLET (FP) ONE (00:30)
== END 2020-01-05 02:27 | disposition home or self-care (01) ==
LOC: JER 19:30
DX: J45.901 Unspecified asthma with (acute) exacerbation (principal); I25.10 Atherosclerotic heart disease of native coronary artery without angina pectoris; I50.20 Unspecified systolic (congestive) heart failure; I13.0 Hypertensive heart and chronic kidney disease with heart failure and stage 1 through stage 4 chronic kidney disease, or unspecified chronic kidney disease; N18.9 Chronic kidney disease, unspecified; I48.91 Unspecified atrial fibrillation; I42.8 Other cardiomyopathies; I25.2 Old myocardial infarction; Z95.5 Presence of coronary angioplasty implant and graft; Z95.810 Presence of automatic (implantable) cardiac defibrillator; J44.9 Chronic obstructive pulmonary disease, unspecified; E03.9 Hypothyroidism, unspecified; E11.22 Type 2 diabetes mellitus with diabetic chronic kidney disease; Z79.4 Long term (current) use of insulin; E06.3 Autoimmune thyroiditis; Z90.49 Acquired absence of other specified parts of digestive tract; Z96.653 Presence of artificial knee joint, bilateral; Z79.01 Long term (current) use of anticoagulants; Z87.19 Personal history of other diseases of the digestive system; E88.2 Lipomatosis, not elsewhere classified; Z88.8 Allergy status to other drugs, medicaments and biological substances; Z91.013 Allergy to seafood; Z91.040 Latex allergy status
CPT/HCPCS: 99281-25

== ENCOUNTER 2020-01-15 12:05 | Inpatient (IN) | payer OTHER ==
[2020-01-15 12:33] VITALS: BMI 38.7
[2020-01-15] MEDS ORDERED: methylPREDNISolone NA SUCC 125 MG/2 ML VIAL IVPUSH ONE (12:49)
[2020-01-15] MEDS ORDERED: ALBUTEROL SO4 2.5/IPRATROPIUM 0.5 INH SOL 3 ML VIAL.NEB. NEB ONE ×3 (12:51→21:43)
--- NOTE | 2020-01-15 12:59 | PDOC ---
History of Present Illness - General Chief Complaint: Asthma Stated Complaint: ASTHMA Time Seen by Provider: 01/15/20 12:40 - History of Present Illness Initial Comments: 01/15/20 12:56 59 y/o female with PMH of Nonischemic Cardiomyopathy (s/p pacemaker), CHF ( EF 20-25%), COPD/Asthma, Afib (eliquis),HTN, DM,CKD (cr 1-1.3), HLD, hypothyroidism who presents to the ED for worsening SOB over the last week. Pt explains that over the last week, she has been experiencing worsening SOB, ARNOLD, orthopnea, PND and 6 lbs weight gain despite lasix and fluid restriction (4- 8oz bottles/d). Pt denies any fever, chills, chest pain, abdominal pain, N/V, or change in urination/BM. Pt was recently discharged from [facility] on 12/2019 for chest pain & SOB. Cardiology Dr Mike saw pt and at the time r/o ACS. Pt had recent RHC/LHC at [facility] reportedly no obstructive disease. Had trops that downtrended and BNP around the 1500s that is lower than her usual >3k. Pt was also here on 01/04 in ED because of asthma exacerbation. Pt admits that her asthma medications have not been helping (albuterol and symbicort). + flu shot this year. had a cold 2 weeks ago. PSH: cholecystectomy, hysterectomy, bilateral knee replacement Social HX: none Family Hx: 2 sisters and mom with hx of blood clots in legs and lungs. PE: Gen: mod distress HEENT: PERRLA, moist membranes, clear conjunctiva Neck : no JVD Chest: reduced breath sounds, greater at the bases with end expiratory wheezing diffusely Heart: tachycardic, RRR no murmur, rubs or gallop Abdomen: obese, NT, +BS extremities :mild trace edema, 2+ pulses Neuro: motor strength 5/5, sensation intact throughout Psych: AAOx3, no SI or sign of depression 01/15/20 13:20 Assessment: based on HPI and PE, DDX include: Asthma exacerbation vs CHF exacerbation from infection ( poss viral ) 01/15/20 13:41 CBC WBC 10.7 K/mm3 (4.0-10.0) H 01/15/20 13:35 RBC 4.07 M/mm3 (3.60-5.2) 01/15/20 13:35 Hgb 10.5 GM/dL (10.7-15.3) L 01/15/20 13:35 Hct 33.0 % (32.4-45.2) 01/15/20 13:35 MCV 81.1 fl (80-96) 01/15/20 13:35 MCH 25.9 pg (25.7-33.7) 01/15/20 13:35 MCHC 31.9 g/dl (32.0-36.0) L 01/15/20 13:35 RDW 18.0 % (11.6-15.6) H 01/15/20 13:35 Plt Count 316 K/MM3 (134-434) D 01/15/20 13:35 MPV 9.5 fl (7.5-11.1) 01/15/20 13:35 Absolute Neuts (auto) 9.0 K/mm3 (1.5-8.0) H 01/15/20 13:35 Neutrophils % 84.0 % (42.8-82.8) H D 01/15/20 13:35 Lymphocytes % 11.5 % (8-40) D 01/15/20 13:35 Monocytes % 4.0 % (3.8-10.2) 01/15/20 13:35 Eosinophils % 0.2 % (0-4.5) D 01/15/20 13:35 Basophils % 0.3 % (0-2.0) 01/15/20 13:35 Nucleated RBC % 0 % (0-0) 01/15/20 13:35 leukocytosis ( pt was DC on steroid from last presentation in ED ) no fever on VS pending UA and CXR will swab for flu 01/15/20 13:43 CXR neg for consolidation or effusion 01/15/20 13:45 CMP Sodium 138 mmol/L (136-145) 01/15/20 13:35 Potassium 4.0 mmol/L (3.5-5.1) 01/15/20 13:35 Chloride 105 mmol/L (98-107) 01/15/20 13:35 Carbon Dioxide 26 mmol/L (21-32) 01/15/20 13:35 Anion Gap 8 MMOL/L (8-16) 01/15/20 13:35 BUN 20.6 mg/dL (7-18) H 01/15/20 13:35 Creatinine 1.3 mg/dL (0.55-1.3) 01/15/20 13:35 Est GFR (CKD-EPI)AfAm 52.00 01/15/20 13:35 Est GFR (CKD-EPI)NonAf 44.87 01/15/20 13:35 Random Glucose 359 mg/dL (74-106) H 01/15/20 13:35 Calcium 8.5 mg/dL (8.5-10.1) 01/15/20 13:35 Total Bilirubin 0.2 mg/dL (0.2-1) 01/15/20 13:35 AST 10 U/L (15-37) L 01/15/20 13:35 ALT 13 U/L (13-61) 01/15/20 13:35 Alkaline Phosphatase 105 U/L (45-117) 01/15/20 13:35 Creatine Kinase 152 U/L (26-192) 01/15/20 13:35 Troponin I 0.13 ng/ml (0.00-0.05) H 01/15/20 13:35 B-Natriuretic Peptide 2705.3 pg/ml (5-125) H 01/15/20 13:35 Total Protein 7.0 g/dl (6.4-8.2) 01/15/20 13:35 Albumin 3.4 g/dl (3.4-5.0) 01/15/20 13:35 with BUN/Cr 20/1.3 , hyperglycemic 359, troponin 0.13, BNP 2705.3 No chest pain and no ST changes on EKG last trop 0.10 pt has very mild trace edema, lungs are clear, CXR unchanged from last one 01/15/20 13:48 reached out to industrial technology teacher, and recs are: if pt has no contraindication to spiriva, start her on it at 2puff/d 01/15/20 14:49 went to reassess patient and pt seems a bit out of breath again. will consider admitting. PEAK flow 350 01/15/20 14:[address] Lewis service for admission 01/15/20 15:16 admitted to tele under Dr Lewis 01/15/20 15:17 Past History - Past Medical History Allergies/Adverse Reactions: Allergies Allergy/AdvReac Type Severity Reaction Status Date / Time tomato Allergy Mild Hives Verified 01/15/20 12:27 chlorpheniramine Allergy Verified 01/15/20 12:27 cimetidine Allergy Verified 01/15/20 12:27 codeine [Codeine] Allergy Verified 01/15/20 12:27 ibuprofen Allergy Verified 01/15/20 12:27 latex [Latex] Allergy Verified 01/15/20 12:27 Latex, Natural Rubber Allergy Verified 01/15/20 12:27 pseudoephedrine Allergy Verified 01/15/20 12:27 salmeterol xinafoate Allergy Verified 01/15/20 12:27 [From Advair Diskus] shellfish derived Allergy Verified 01/15/20 12:27 Sulfa (Sulfonamide Allergy Verified 01/15/20 12:27 Antibiotics) [Sulfa(Sulfonamide Antibiotics)] Chocolate Allergy Mild Hives Uncoded 01/15/20 12:27 shrimp Allergy Mild Hives Uncoded 01/15/20 12:27 Home Medications: Ambulatory Orders Insulin Glargine,Hum.rec.anlog [Lantus Solostar PEN -] 20 units SQ AM 08/09/16 Budesonide/Formeterol Fumarate [SYMBICORT 160/4.5mcg -] 2 puff PO BID 10/14/16 Albuterol 2.5/Ipratropium 0.5 [Duoneb -] 1 amp NEB Q6H PRN #90 amp 05/21/19 Levothyroxine [Synthroid -] 75 mcg PO DAILY #30 tablet 05/21/19 Insulin Glargine,Hum.rec.anlog [Lantus Solostar PEN -] 10 units SQ HS 08/13/19 Metoprolol Succinate [Toprol XL -] 25 mg PO DAILY 10/10/19 Apixaban [Eliquis -] 5 mg PO BID 11/02/19 Dexlansoprazole [Dexilant -] 60 mg PO DAILY 11/02/19 Linaclotide [Linzess] 290 mcg PO DAILY 11/02/19 Sacubitril/Valsartan [Entresto 24 mg-26 mg Tablet] 1 each PO ASDIR 11/02/19 Furosemide [Lasix -] 20 mg PO DAILY #30 tablet 11/06/19 Albuterol 0.083% Nebulizer Jyothi [Ventolin 0.083% Nebulizer Soln -] 1 amp NEB Q4H PRN amp 12/13/19 Spironolactone [Aldactone -] 25 mg PO DAILY tablet 12/13/19 Aspirin Coated [Ecotrin -] 81 mg PO DAILY #30 tablet.ec 12/27/19 Potassium Chloride 10 meq PO 01/15/20 Pregabalin [Lyrica -] 25 mg PO BID 01/15/20 Tiotropium [place] [Spiriva Respimat] 2 puff IH DAILY #1 mist.inhal 01/15/20 Anemia: Yes Asthma: Yes Cancer: No Cardiac Disorders: Yes (AR X 2, pacemaker) CVA: No COPD: Yes CHF: Yes (S/P ICD) DVT: No Dementia: No Diabetes: Yes GI Disorders: Yes (PEPTIC ULCER) Disorders: No HTN: Yes Hypercholesterolemia: Yes Liver Disease: No Psychiatric Problems: Yes (DEPRESSION) Seizures: No Thyroid Disease: Yes - Surgical History Abdominal Surgery: Yes Appendectomy: No Cardiac Surgery: Yes (pacemaker and stents) Cholecystectomy: Yes GI Surgery: Yes (CHOLECYSTECTOMY, HYSTERECTOMY) Lung Surgery: No Neurologic Surgery: No Orthopedic Surgery: Yes (bilateral knee replacement) - Immunization History Immunization Up to Date: No - Psycho Social/Smoking Cessation Hx Smoking Status: No Smoking History: Never smoked Have you smoked in the past 12 months: No Number of Cigarettes Smoked Daily: 0 Hx Alcohol Use: No Drug/Substance Use Hx: No Substance Use Type: None Hx Substance Use Treatment: No Review of Systems - Review of Systems Constitutional: Yes: Weight Stable. No: Chills, Fever HEENTM: No: Recent change in vision Respiratory: Yes: Orthopnea, Shortness of Breath, SOB with Exertion, Wheezing Cardiac (ROS): Yes: Palpitations. No: Chest Pain, Syncope, Chest Tightness ABD/GI: No: Abdominal Distended, Constipated, Diarrhea, Nausea, Vomiting Musculoskeletal: No: Joint Pain, Joint Swelling Integumentary: No: Rash Neurological: No: Headache, Weakness Psychiatric: No: Mood Swings, Change in Appetite Endocrine: Yes: Change in Weight Hematologic/Lymphatic: No: Easy Bruising *Physical Exam - Vital Signs Last Vital Signs Temp Pulse Resp BP Pulse Ox 98.5 F 96 H 20 110/71 100 01/15/20 12:25 01/15/20 12:25 01/15/20 12:25 01/15/20 12:25 01/15/20 12:25 - Physical Exam General Appearance: Yes: Appropriately Dressed, Moderate Distress HEENT: positive: ZAC Neck: positive: Supple Respiratory/Chest: positive: Decreased Breath Sounds, Wheezing Cardiovascular: positive: Regular Rate, S1, S2. negative: JVD Gastrointestinal/Abdominal: positive: Normal Bowel Sounds. negative: Tenderness Rectal Exam: positive: deferred Extremity: positive: Normal Capillary Refill Integumentary: positive: Dry, Warm Neurologic: positive: brake holder II-XII NML intact, Normal Response, Motor Strength 04/04 ED Treatment Course - LABORATORY CBC & Chemistry Diagram: 01/15/20 13:35 01/15/20 13:35 Discharge - Discharge Information Problems reviewed: Yes Clinical Impression/Diagnosis: Acute on chronic systolic (congestive) heart failure Asthma exacerbation Qualifiers: Asthma severity: unspecified severity Asthma persistence: unspecified Qualified Code(s): J45.901 - Unspecified asthma with (acute) exacerbation Condition: Improved - Admission Yes - Additional Discharge Information - Follow up/Referral - Patient Discharge Instructions - Post Discharge Activity
--- NOTE | 2020-01-15 13:41 | PDOC ---
Documentation entered by Milena Chaney SCRIBE, acting as scribe for Cynthia Gonzalez MD. Cynthia Gonzalez MD: This documentation has been prepared by the Ritu siegel Nirvannie, SCRIBE, under my direction and personally reviewed by me in its entirety. I confirm that the documentation accurately reflects all work, treatment, procedures, and medical decision making performed by me. 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 She notes associated chills and diaphoresis. As per patient, she was recently evaluated in the ED on 01/04 and discharged on Prednisone. She notes taking her last dosage 01/10 with minimal relief of her symptoms, prompting her arrival to the ED. Patient denies any personal history of DVT/PE but, endorses 2 of her sisters and her mother have a history of fatality secondary to thrombosis (1 sister: PE secondary to cholecystectomy, 1 sister: DVT, Mother: PE). She denies any fevers. She denies any new lower extremity edema. She denies any sick contacts. Allergies: chlorpheniramine, cimetidine, codeine, ibuprofen, latex Past surgical Hx: hysterectomy, cholecystectomy, b/l knee surgery, 2 toes amputated Primary Care Physician: Dr. Suni Lanza Extender: Dr. Mooney Logging Rafter Laborer: Dr. Lee - Physicial Exam PE: 01/15/20 13:37 awake alert NAD lungs with end expiratory wheezing sob with speaking, normal effort otherwise. abd soft nt nd ext wwp. no edema. 2+dp pt pulses. - Medical Decision Making 01/15/20 13:38 9 yo F h/o htn chf ( ef 25% asthma), currently just finished course of steroids 5 days ago, here with c/o sob . wheezing. not improving with home albuterol. saw molding fitter 2 days ago was told to come to ED at that time. no f/c no n/v no chest pain. dose have exertional dyspenea and orthopnea. no leg swelling is up 6 #. pcp dr Lanza, has been alternating her doses of lasix becase she is very senstive to it per her report. differential asthma exacerbation ,ineciotn such as pna, or influeenzae, chf, plan labs cxr ekg trop, . duoneb and steroids given in ED. mild improvement. Heart Score/ECG Review #1 General ECG Interpretation: Sinus Rhythm, Normal Intervals, No acute ischemic changes Compared to previous ECG there are: Other (left axis, no st elevation or depression.)
[2020-01-15 13:52] LABS: BASO % 0.3 % (0-2.0); EOS % 0.2 % (0-4.5); HEMOGLOBIN 10.5 GM/dL (10.7-15.3); LYMPH % 11.5 % (8-40); MCH 25.9 pg (25.7-33.7); MCHC 31.9 g/dl (32.0-36.0); MEAN CELL VOLUME 81.1 fl (80-96); MEAN PLT VOLUME 9.5 fl (7.5-11.1); PLATELET COUNT 316 K/MM3 (134-434); RBC 4.07 M/mm3 (3.60-5.2); WHITE BLOOD COUNT 10.7 K/mm3 (4.0-10.0)
[2020-01-15 14:22] LABS: ALBUMIN 3.4 g/dl (3.4-5.0); BILIRUBIN,TOTAL 0.2 mg/dL (0.2-1); BLOOD UREA NITROGEN 20.6 mg/dL (7-18); CALCIUM 8.5 mg/dL (8.5-10.1); CREATININE 1.3 mg/dL (0.55-1.3)
[2020-01-15 14:29] LABS: PH,URINE 5.5 (5.0-8.0); URINE APPEARANCE CLEAR; URINE BILIRUBIN NEGATIVE (NEGATIVE); URINE COLOR YELLOW; URINE GLUCOSE (UA) 2+ (NEGATIVE); URINE KETONE NEGATIVE (NEGATIVE); URINE LEUK ESTERASE NEGATIVE (NEGATIVE); URINE NITRITE NEGATIVE (NEGATIVE); URINE PROTEIN NEGATIVE (NEGATIVE); URINE UROBILINOGEN 0.2 mg/dL (0.2-1.0)
[2020-01-15] MEDS ORDERED: ALBUTEROL SO4 0.083% IH SOL 2.5 MG/3 ML VIAL.NEB. NEB PRN (15:21)
[2020-01-15] MEDS: ALBUTEROL SO4 2.5/IPRATROPIUM 0.5 INH SOL 3 ML VIAL.NEB. NEB SCH ×2 (15:36→21:48)
[2020-01-15] MEDS: TIOTROPIUM BROMIDE 2.5 MCG (SPIRIVA) RESPIMAT INHALER IH SCH (18:04)
[2020-01-15] MEDS: INSULIN SLIDING SCALE (NOVOLOG) 1 VIAL SQ SCH ×2 (18:19→23:07)
[2020-01-15] MEDS: SACUBITRIL/VALSARTAN 24 MG-26 MG TABLET PO SCH (22:28)
[2020-01-15] MEDS ORDERED: ALBUTEROL SO4 2.5/IPRATROPIUM 0.5 INH SOL 3 ML VIAL.NEB. NEB PRN (22:38)
--- NOTE | 2020-01-15 22:40 | HP ---
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 She notes associated chills and diaphoresis. She denies any new lower extremity edema. She denies any sick contacts. Pt found to have BNP > 2000. - Past Medical History Cardiovascular: Yes: CHF, HTN, Hyperlipdemia Pulmonary: Yes: Asthma, Sleep Apnea Renal/: Yes: Renal Failure Endocrine: Yes: Diabetes Mellitus, Hypothyroidism - Past Surgical History Past Surgical History: Yes: Cholecystectomy, Joint Replacement (left tkr), Permanent Pacemaker (ICD) - Smoking History Smoking history: Never smoked Have you smoked in the past 12 months: No Aproximately how many cigarettes per day: 0 - Alcohol/Substance Use Hx Alcohol Use: No - Social History ADL: Independent History of Recent Travel: No Home Medications - Allergies Allergies/Adverse Reactions: Allergies Allergy/AdvReac Type Severity Reaction Status Date / Time tomato Allergy Mild Hives Verified 01/15/20 12:27 chlorpheniramine Allergy Verified 01/15/20 12:27 cimetidine Allergy Verified 01/15/20 12:27 codeine [Codeine] Allergy Verified 01/15/20 12:27 ibuprofen Allergy Verified 01/15/20 12:27 latex [Latex] Allergy Verified 01/15/20 12:27 Latex, Natural Rubber Allergy Verified 01/15/20 12:27 pseudoephedrine Allergy Verified 01/15/20 12:27 salmeterol xinafoate Allergy Verified 01/15/20 12:27 [From Advair Diskus] shellfish derived Allergy Verified 01/15/20 12:27 Sulfa (Sulfonamide Allergy Verified 01/15/20 12:27 Antibiotics) [Sulfa(Sulfonamide Antibiotics)] Chocolate Allergy Mild Hives Uncoded 01/15/20 12:27 shrimp Allergy Mild Hives Uncoded 01/15/20 12:27 - Home Medications Home Medications: Ambulatory Orders Insulin Glargine,Hum.rec.anlog [Lantus Solostar PEN -] 20 units SQ AM 08/09/16 Budesonide/Formeterol Fumarate [SYMBICORT 160/4.5mcg -] 2 puff PO BID 10/14/16 Albuterol 2.5/Ipratropium 0.5 [Duoneb -] 1 amp NEB Q6H PRN #90 amp 05/21/19 Levothyroxine [Synthroid -] 75 mcg PO DAILY #30 tablet 05/21/19 Insulin Glargine,Hum.rec.anlog [Lantus Solostar PEN -] 10 units SQ HS 08/13/19 Metoprolol Succinate [Toprol XL -] 25 mg PO DAILY 10/10/19 Apixaban [Eliquis -] 5 mg PO BID 11/02/19 Dexlansoprazole [Dexilant -] 60 mg PO DAILY 11/02/19 Linaclotide [Linzess] 290 mcg PO DAILY 11/02/19 Sacubitril/Valsartan [Entresto 24 mg-26 mg Tablet] 1 each PO ASDIR 11/02/19 Furosemide [Lasix -] 20 mg PO DAILY #30 tablet 11/06/19 Albuterol 0.083% Nebulizer Jyothi [Ventolin 0.083% Nebulizer Soln -] 1 amp NEB Q4H PRN amp 12/13/19 Spironolactone [Aldactone -] 25 mg PO DAILY tablet 12/13/19 Aspirin Coated [Ecotrin -] 81 mg PO DAILY #30 tablet.ec 12/27/19 Potassium Chloride 10 meq PO 01/15/20 Pregabalin [Lyrica -] 25 mg PO BID 01/15/20 Tiotropium [place] [Spiriva Respimat] 2 puff IH DAILY #1 mist.inhal 01/15/20 Family Medical History Family History: Unremarkable Review of Systems - Review of Systems Constitutional: reports: No Symptoms Eyes: reports: No Symptoms HENT: reports: No Symptoms Neck: reports: No Symptoms Cardiovascular: reports: Shortness of Breath Respiratory: reports: SOB Gastrointestinal: reports: No Symptoms Genitourinary: reports: No Symptoms Physical Examination Vital Signs: Vital Signs Temperature 98.6 F 01/15/20 19:35 Pulse Rate 87 01/15/20 19:35 Respiratory Rate 20 01/15/20 19:35 Blood Pressure 104/75 01/15/20 19:35 O2 Sat by Pulse Oximetry (%) 99 01/15/20 19:35 Constitutional: Yes: Well Nourished Eyes: Yes: WNL HENT: Yes: WNL Neck: Yes: WNL, Supple Cardiovascular: Yes: WNL, Regular Rate and Rhythm Respiratory: Yes: Diminished Gastrointestinal: Yes: WNL, Normal Bowel Sounds, Soft, Abdomen, Obese Extremities: Yes: WNL Edema: No Neurological: Yes: WNL, Alert, Oriented ...Motor Strength: WNL Labs: CBC, BMP 01/15/20 13:35 01/15/20 13:35 Problem List - Problems (1) Acute on chronic systolic (congestive) heart failure Assessment/Plan: Cont IV lasix/entresto/spironolactone As per cardio Monitor labs Code(s): I50.23 - ACUTE ON CHRONIC SYSTOLIC (CONGESTIVE) HEART FAILURE (2) Asthma exacerbation Assessment/Plan: Cont IV steroids Cont nebulizers Code(s): J45.901 - UNSPECIFIED ASTHMA WITH (ACUTE) EXACERBATION Qualifiers: Asthma severity: unspecified severity Asthma persistence: unspecified Qualified Code(s): J45.901 - Unspecified asthma with (acute) exacerbation (3) Elevated troponin Assessment/Plan: Due to demand ischemia Code(s): R79.89 - OTHER SPECIFIED ABNORMAL FINDINGS OF BLOOD CHEMISTRY (4) CAD (coronary artery disease) Code(s): I25.10 - ATHSCL HEART DISEASE OF [place] CORONARY ARTERY W/O ANG PCTRS (5) Diabetes Assessment/Plan: Cont levemir Cont sliding scale Code(s): E11.9 - TYPE 2 DIABETES MELLITUS WITHOUT COMPLICATIONS Qualifiers: Diabetes mellitus type: type 2 (6) Hyperlipidemia Code(s): E78.5 - HYPERLIPIDEMIA, UNSPECIFIED (7) Hypertension Code(s): I10 - ESSENTIAL (PRIMARY) HYPERTENSION Qualifiers: Hypertension type: essential hypertension Qualified Code(s): I10 - Essential (primary) hypertension (8) Hypothyroidism Code(s): E03.9 - HYPOTHYROIDISM, UNSPECIFIED (9) Cardiomyopathy Code(s): I42.9 - CARDIOMYOPATHY, UNSPECIFIED (10) Morbid obesity Code(s): E66.01 - MORBID (SEVERE) OBESITY DUE TO EXCESS CALORIES (11) ICD (implantable cardioverter-defibrillator) in place Code(s): Z95.810 - PRESENCE OF AUTOMATIC (IMPLANTABLE) CARDIAC DEFIBRILLATOR (12) Hypothyroidism Assessment/Plan: Cont levothyroxine Code(s): E03.9 - HYPOTHYROIDISM, UNSPECIFIED
[2020-01-15] MEDS: INSULIN (LEVEMIR) 100 UNITS/ML UNITS SQ SCH (23:00)
[2020-01-15] MEDS: APIXABAN 5 MG TABLET PO SCH (23:04)
[2020-01-15] MEDS: BUDESONIDE/FORMETEROL FUMARATE 160/4.5 mcg INHALER IH SCH (23:07)
[2020-01-16] MEDS: methylPREDNISolone NA SUCC 40 MG/1 ML VIAL IVPUSH SCH ×3 (02:33→18:36)
[2020-01-16] MEDS ORDERED: INSULIN (LEVEMIR) 100 UNITS/ML UNITS SQ ONE ×2 (06:31→22:10)
[2020-01-16] MEDS ORDERED: INSULIN (NOVOLOG) ASPART 100 UNITS/ML 10ML VIAL ONE ×2 (06:32→12:10)
[2020-01-16] MEDS: ALBUTEROL SO4 2.5/IPRATROPIUM 0.5 INH SOL 3 ML VIAL.NEB. NEB SCH ×4 (06:45→20:22)
[2020-01-16] MEDS: INSULIN SLIDING SCALE (NOVOLOG) 1 VIAL SQ SCH ×4 (06:45→22:21)
[2020-01-16] MEDS: INSULIN (LEVEMIR) 100 UNITS/ML UNITS SQ SCH ×2 (06:46→22:17)
[2020-01-16 07:24] LABS: BLOOD UREA NITROGEN 24.4 mg/dL (7-18); CREATININE 1.3 mg/dL (0.55-1.3); POTASSIUM 4.5 mmol/L (3.5-5.1)
[2020-01-16 07:25] LABS: ALBUMIN 3.1 g/dl (3.4-5.0); BILIRUBIN,TOTAL 0.3 mg/dL (0.2-1); TOT PROT 6.6 g/dl (6.4-8.2)
[2020-01-16] MEDS ORDERED: ALBUTEROL SO4 2.5/IPRATROPIUM 0.5 INH SOL 3 ML VIAL.NEB. NEB ONE (09:38)
[2020-01-16] MEDS: ASPIRIN COATED 81 MG TABLET.EC PO SCH (09:42)
[2020-01-16] MEDS: SACUBITRIL/VALSARTAN 24 MG-26 MG TABLET PO SCH ×2 (09:43→23:54)
[2020-01-16] MEDS: SPIRONOLACTONE 25 MG TABLET (FP) PO SCH (09:43)
[2020-01-16] MEDS: APIXABAN 5 MG TABLET PO SCH ×2 (09:43→22:17)
[2020-01-16] MEDS: PANTOPRAZOLE 40 MG TABLET PO SCH (09:46)
[2020-01-16] MEDS: metoPROLOL SUCCINATE 25 MG TAB.SR.24H (FP) PO SCH (09:46)
[2020-01-16] MEDS: FUROSEMIDE 40 MG/4 ML INJECTABLE VIAL IVPUSH SCH (09:46)
[2020-01-16] MEDS: BUDESONIDE/FORMETEROL FUMARATE 160/4.5 mcg INHALER IH SCH ×2 (09:46→22:18)
[2020-01-16] MEDS: LEVOTHYROXINE NA 75 MCG TABLET (FP) PO SCH (09:46)
[2020-01-16] MEDS: TIOTROPIUM BROMIDE 2.5 MCG (SPIRIVA) RESPIMAT INHALER IH SCH (09:46)
[2020-01-16] MEDS ORDERED: methylPREDNISolone NA SUCC 40 MG/1 ML VIAL IVPUSH SCH (10:00)
[2020-01-16] MEDS ORDERED: PATIENT'S OWN MEDICATION (NON-FORMULARY) (Potassium Chloride [Potassium Chloride] 10 MEQ) PO SCH (10:00)
[2020-01-16] MEDS ORDERED: PATIENT'S OWN MEDICATION (NON-FORMULARY) (Linaclotide [Linzess] 290 MCG) PO SCH (10:00)
[2020-01-16] MEDS ORDERED: FUROSEMIDE 20 MG TABLET (FP) PO SCH (10:00)
[2020-01-16] MEDS ORDERED: DEXLANSOPRAZOLE 60 MG PO SCH ×2 (10:00)
[2020-01-16] MEDS: POTASSIUM CHLORIDE TABS 10 MEQ TABLET.ER (FP) PO SCH (10:02)
--- NOTE | 2020-01-16 11:57 | CON.CARD ---
Cardiology Consult (text) - Consultation Consultation Note: Consult Specialty:: CV - History of Present Illness Chief Complaint: short of breath History of Present Illness: 59 F here with shortness of breath. recently here with chest pain, likely MSK and went home to follow up with Dr. Mooney. She saw him last week, had difficulty breathing and gained 6 lbs, she was advised to go the ER but did not. Breathing was not improving with asthma treatments, has been on a course of steroids at home. Notes some swelling in her hands and feet more than usual. Currently no chest pain, palps, dizziness, orthopnea. Had recent admission for asthma exacerbation as well and her recently had URI. PMH: morbid obesity nonisch CMP AF HTN - Past Medical History Cardio/Vascular: Yes: CHF, HTN, Hyperlipdemia Pulmonary: Yes: Asthma, Sleep Apnea Renal/: Yes: Renal Failure ...: No Endocrine: Yes: Diabetes Mellitus, Hypothyroidism - Past Surgical History Past Surgical History: Yes: Cholecystectomy, Joint Replacement (left tkr), Permanent Pacemaker (ICD) - Alcohol/Substance Use Hx Alcohol Use: No - Smoking History Smoking history: Unknown if ever smoked Have you smoked in the past 12 months: No Aproximately how many cigarettes per day: 0 - Social History Usual Living Arrangement: With Spouse ADL: Independent History of Recent Travel: No Home Medications - Allergies Allergies/Adverse Reactions: Allergies Allergy/AdvReac Type Severity Reaction Status Date / Time tomato Allergy Mild Hives Verified 01/15/20 12:27 chlorpheniramine Allergy Verified 01/15/20 12:27 cimetidine Allergy Verified 01/15/20 12:27 codeine [Codeine] Allergy Verified 01/15/20 12:27 ibuprofen Allergy Verified 01/15/20 12:27 latex [Latex] Allergy Verified 01/15/20 12:27 Latex, Natural Rubber Allergy Verified 01/15/20 12:27 pseudoephedrine Allergy Verified 01/15/20 12:27 salmeterol xinafoate Allergy Verified 01/15/20 12:27 [From Advair Diskus] shellfish derived Allergy Verified 01/15/20 12:27 Sulfa (Sulfonamide Allergy Verified 01/15/20 12:27 Antibiotics) [Sulfa(Sulfonamide Antibiotics)] Chocolate Allergy Mild Hives Uncoded 01/15/20 12:27 shrimp Allergy Mild Hives Uncoded 01/15/20 12:27 Home Medications Medication Instructions Recorded Insulin Glargine,Hum.rec.anlog 20 units SQ AM 08/09/16 [Lantus Solostar PEN -] Budesonide/Formeterol Fumarate 2 puff PO BID 10/14/16 [SYMBICORT 160/4.5mcg -] Albuterol 2.5/Ipratropium 0.5 1 amp NEB Q6H PRN #90 amp 05/21/19 [Duoneb -] Levothyroxine [Synthroid -] 75 mcg PO DAILY #30 tablet 05/21/19 Insulin Glargine,Hum.rec.anlog 10 units SQ HS 08/13/19 [Lantus Solostar PEN -] Metoprolol Succinate [Toprol XL -] 25 mg PO DAILY 10/10/19 Apixaban [Eliquis -] 5 mg PO BID 11/02/19 Dexlansoprazole [Dexilant -] 60 mg PO DAILY 11/02/19 Linaclotide [Linzess] 290 mcg PO DAILY 11/02/19 Sacubitril/Valsartan [Entresto 24 1 each PO ASDIR 11/02/19 mg-26 mg Tablet] Furosemide [Lasix -] 20 mg PO DAILY #30 tablet 11/06/19 Albuterol 0.083% Nebulizer Jyothi 1 amp NEB Q4H PRN amp 12/13/19 [Ventolin 0.083% Nebulizer Soln -] Spironolactone [Aldactone -] 25 mg PO DAILY tablet 12/13/19 Aspirin Coated [Ecotrin -] 81 mg PO DAILY #30 tablet.ec 12/27/19 Potassium Chloride 10 meq PO 01/15/20 Pregabalin [Lyrica -] 25 mg PO BID 01/15/20 Tiotropium [place] [Spiriva 2 puff IH DAILY #1 mist.inhal 01/15/20 Respimat] Family Medical History Family History: Denies (no known cmp) Review of Systems - Review of Systems Constitutional: denies: Chills, Fever Eyes: denies: Eye Pain HENT: denies: Nasal Congestion Neck: denies: Stiffness Cardiovascular: denies: Palpitations Respiratory: denies: Orthopnea, PND Gastrointestinal: denies: Diarrhea, Rectal Bleeding Genitourinary: denies: Burning, Hematuria Musculoskeletal: denies: Muscle Pain Integumentary: denies: Rash Neurological: denies: Numbness, Seizure, Syncope Endocrine: denies: Excessive Sweating Hematology/Lymphatic: denies: Excessive Bleeding Vital Signs: Vital Signs Period Temp Pulse Resp BP Sys/Mcgrath Pulse Ox Last 24 Hr 97.5 F-98.6 F 87-96 18-20 104-123/71-77 99-100 Constitutional: Yes: Well Nourished, No Distress, Obese Eyes: No: Sclera Icterus HENT: No: Nasal Congestion Neck: No: Decreased ROM Respiratory: Yes: CTA Bilaterally. No: Accessory Muscle Use, Rales, Wheezes Gastrointestinal: Yes: Normal Bowel Sounds. No: Distention, Hepatomegaly, Palpable Mass, Tenderness Cardiovascular: Yes: Regular Rate and Rhythm JVD: No Heart Sounds: Yes: S1, S2. No: Gallop Murmur: No: Systolic Murmur, Diastolic Murmur Musculoskeletal: Yes: Other (No kyphosis) Extremities: No: Cool, Cyanosis Edema: trace gopi lower ext Integumentary: No: Jaundice Neurological: Yes: Alert, Oriented (x3) Psychiatric: No: Agitated Laboratory Last Values WBC 10.7 K/mm3 (4.0-10.0) H 01/15/20 13:35 RBC 4.07 M/mm3 (3.60-5.2) 01/15/20 13:35 Hgb 10.5 GM/dL (10.7-15.3) L 01/15/20 13:35 Hct 33.0 % (32.4-45.2) 01/15/20 13:35 MCV 81.1 fl (80-96) 01/15/20 13:35 MCH 25.9 pg (25.7-33.7) 01/15/20 13:35 MCHC 31.9 g/dl (32.0-36.0) L 01/15/20 13:35 RDW 18.0 % (11.6-15.6) H 01/15/20 13:35 Plt Count 316 K/MM3 (134-434) D 01/15/20 13:35 MPV 9.5 fl (7.5-11.1) 01/15/20 13:35 Absolute Neuts (auto) 9.0 K/mm3 (1.5-8.0) H 01/15/20 13:35 Neutrophils % 84.0 % (42.8-82.8) H D 01/15/20 13:35 Lymphocytes % 11.5 % (8-40) D 01/15/20 13:35 Monocytes % 4.0 % (3.8-10.2) 01/15/20 13:35 Eosinophils % 0.2 % (0-4.5) D 01/15/20 13:35 Basophils % 0.3 % (0-2.0) 01/15/20 13:35 Nucleated RBC % 0 % (0-0) 01/15/20 13:35 Sodium 139 mmol/L (136-145) 01/16/20 06:00 Potassium 4.5 mmol/L (3.5-5.1) 01/16/20 06:00 Chloride 105 mmol/L (98-107) 01/16/20 06:00 Carbon Dioxide 27 mmol/L (21-32) 01/16/20 06:00 Anion Gap 7 MMOL/L (8-16) L 01/16/20 06:00 BUN 24.4 mg/dL (7-18) H 01/16/20 06:00 Creatinine 1.3 mg/dL (0.55-1.3) 01/16/20 06:00 Est GFR (CKD-EPI)AfAm 52.00 01/16/20 06:00 Est GFR (CKD-EPI)NonAf 44.87 01/16/20 06:00 POC Glucometer 314 UNITS (80-120) 01/16/20 06:29 Random Glucose 308 mg/dL (74-106) H 01/16/20 06:00 Calcium 9.0 mg/dL (8.5-10.1) 01/16/20 06:00 Total Bilirubin 0.3 mg/dL (0.2-1) 01/16/20 06:00 AST 6 U/L (15-37) L 01/16/20 06:00 ALT 12 U/L (13-61) L 01/16/20 06:00 Alkaline Phosphatase 82 U/L (45-117) 01/16/20 06:00 Creatine Kinase 152 U/L (26-192) 01/16/20 06:00 Creatine Kinase Index 1.3 % (0.0-5.0) 01/16/20 06:00 CK-MB (CK-2) 2.1 ng/mL (0.5-3.6) 01/16/20 06:00 Troponin I 0.11 ng/ml (0.00-0.05) H 01/16/20 06:00 B-Natriuretic Peptide 2705.3 pg/ml (5-125) H 01/15/20 13:35 Total Protein 6.6 g/dl (6.4-8.2) 01/16/20 06:00 Albumin 3.1 g/dl (3.4-5.0) L 01/16/20 06:00 Urine Color Yellow 01/15/20 14:18 Urine Appearance Clear 01/15/20 14:18 Urine pH 5.5 (5.0-8.0) 01/15/20 14:18 Ur Specific [place] 1.010 (1.010-1.035) 01/15/20 14:18 Urine Protein Negative (NEGATIVE) 01/15/20 14:18 Urine Glucose (UA) 2+ (NEGATIVE) H 01/15/20 14:18 Urine Ketones Negative (NEGATIVE) 01/15/20 14:18 Urine Blood Negative (NEGATIVE) 01/15/20 14:18 Urine Nitrite Negative (NEGATIVE) 01/15/20 14:18 Urine Bilirubin Negative (NEGATIVE) 01/15/20 14:18 Urine Urobilinogen 0.2 mg/dL (0.2-1.0) 01/15/20 14:18 Ur Leukocyte Esterase Negative (NEGATIVE) 01/15/20 14:18 Influenza A (Rapid) Negative (Negative) 01/15/20 14:18 Influenza B (Rapid) Negative (Negative) 01/15/20 14:18 Assessment/Plan Cardiac Catheterization 2018 non-obstructive CAD echo 05/2019 tds, mildly dilated LV, severe global hypok, RV nl CXR: clear lungs/pleura EKG: sinus, LBBB tele: sinus shortness of breath - may be multifactorial - recent wt gain of 6 lbs, elevated BNP compared to prior and swelling suggest component of CHF exac - cont IV lasix - manage asthma/COPD per pulm acute chronic systolic HF, s/p ICD - recent RHC/LHC at [facility] reportedly no significant findings - cont entresto, spironolactone, metoprolol = home regimen - cont IV lasix as above - monitor daily Cr, lytes, weights - outpatient ICD monitoring elevated trop - indeterminate range, flat trend - similar to prior values, EKG similar to prior - unlikely ACS copd/asthma: - manage per pulm HTN: - bp controlled - same meds paroxysmal afib - in sinus --cont home bb - cont home eliquis for AC (5 bid) HLD - cont statin
[2020-01-16 12:04] LABS: BASO % 0.3 % (0-2.0); HEMOGLOBIN 10.4 GM/dL (10.7-15.3); LYMPH % 8.7 % (8-40); MCH 25.5 pg (25.7-33.7); MCHC 31.6 g/dl (32.0-36.0); MEAN CELL VOLUME 80.8 fl (80-96); MEAN PLT VOLUME 9.9 fl (7.5-11.1); MONO % 5.4 % (3.8-10.2); NEUT % 85.6 % (42.8-82.8); PLATELET COUNT 321 K/MM3 (134-434); RBC 4.09 M/mm3 (3.60-5.2); RDW 18.3 % (11.6-15.6); WHITE BLOOD COUNT 11.4 K/mm3 (4.0-10.0)
--- NOTE | 2020-01-16 12:57 | CON.PULM ---
Consult Consult Specialty:: PULM / CCM Referred by:: Hospitalist Reason for Consultation:: SOB - History of Present Illness Chief Complaint: SOB History of Present Illness: 59 F, Moderate Persistent Asthma (no intubations, not steroid dependent, unknown PEF), OSAS on a home AVAPS device (AVAPS: 500cc / Max pressure: 20 cm H2O / PS max 10 cm H2O / PS min 6 cm H2O / EPAP Max 10 cm H2O / EPAP min 8 cm H2O / Rate Auto / Trigger type Auto / Rise time 6), Nonischemic Cardiomyopathy ( s/p pacemaker), CHF, HTN, CKD, and HLD. Admitted via the ER due to progressive SOB and ARNOLD and dry cough that has not been responding to her home BD [place]. No travel history or sick contacts. No hemoptysis or night sweats. She does report orthopnea (4 pillows). Patient reports that she has a repeat sleep test at [facility] on Friday. CXR: No acute pathology - History Source History Provided By: Patient Limitations to Obtaining History: No Limitations - Past Medical History Cardio/Vascular: Yes: CHF, HTN, Hyperlipdemia Pulmonary: Yes: Asthma, Bronchitis, Pneumonia, Sleep Apnea. No: Cancer, COPD, Previously Intubated, Pulmonary Embolus, Pulmonary Fibrosis Renal/: Yes: Renal Failure Endocrine: Yes: Diabetes Mellitus, Hypothyroidism - Past Surgical History Past Surgical History: Yes: Cholecystectomy, Joint Replacement (left tkr), Permanent Pacemaker (ICD) - Alcohol/Substance Use Hx Alcohol Use: No - Smoking History Smoking history: Never smoked Have you smoked in the past 12 months: No Aproximately how many cigarettes per day: 0 - Social History Usual Living Arrangement: With Spouse ADL: Independent History of Recent Travel: No Home Medications - Allergies Allergies/Adverse Reactions: Allergies Allergy/AdvReac Type Severity Reaction Status Date / Time tomato Allergy Mild Hives Verified 01/15/20 12:27 chlorpheniramine Allergy Verified 01/15/20 12:27 cimetidine Allergy Verified 01/15/20 12:27 codeine [Codeine] Allergy Verified 01/15/20 12:27 ibuprofen Allergy Verified 01/15/20 12:27 latex [Latex] Allergy Verified 01/15/20 12:27 Latex, Natural Rubber Allergy Verified 01/15/20 12:27 pseudoephedrine Allergy Verified 01/15/20 12:27 salmeterol xinafoate Allergy Verified 01/15/20 12:27 [From Advair Diskus] shellfish derived Allergy Verified 01/15/20 12:27 Sulfa (Sulfonamide Allergy Verified 01/15/20 12:27 Antibiotics) [Sulfa(Sulfonamide Antibiotics)] Chocolate Allergy Mild Hives Uncoded 01/15/20 12:27 shrimp Allergy Mild Hives Uncoded 01/15/20 12:27 - Home Medications Home Medications: Ambulatory Orders Insulin Glargine,Hum.rec.anlog [Lantus Solostar PEN -] 20 units SQ AM 08/09/16 Budesonide/Formeterol Fumarate [SYMBICORT 160/4.5mcg -] 2 puff PO BID 10/14/16 Albuterol 2.5/Ipratropium 0.5 [Duoneb -] 1 amp NEB Q6H PRN #90 amp 05/21/19 Levothyroxine [Synthroid -] 75 mcg PO DAILY #30 tablet 05/21/19 Insulin Glargine,Hum.rec.anlog [Lantus Solostar PEN -] 10 units SQ HS 08/13/19 Metoprolol Succinate [Toprol XL -] 25 mg PO DAILY 10/10/19 Apixaban [Eliquis -] 5 mg PO BID 11/02/19 Dexlansoprazole [Dexilant -] 60 mg PO DAILY 11/02/19 Linaclotide [Linzess] 290 mcg PO DAILY 11/02/19 Sacubitril/Valsartan [Entresto 24 mg-26 mg Tablet] 1 each PO ASDIR 11/02/19 Furosemide [Lasix -] 20 mg PO DAILY #30 tablet 11/06/19 Albuterol 0.083% Nebulizer Jyothi [Ventolin 0.083% Nebulizer Soln -] 1 amp NEB Q4H PRN amp 12/13/19 Spironolactone [Aldactone -] 25 mg PO DAILY tablet 12/13/19 Aspirin Coated [Ecotrin -] 81 mg PO DAILY #30 tablet.ec 12/27/19 Potassium Chloride 10 meq PO 01/15/20 Pregabalin [Lyrica -] 25 mg PO BID 01/15/20 Tiotropium [place] [Spiriva Respimat] 2 puff IH DAILY #1 mist.inhal 01/15/20 Review of Systems - Review of Systems Constitutional: reports: Malaise. denies: Chills, Fever, Night Sweats Eyes: reports: No Symptoms HENT: reports: No Symptoms Neck: reports: No Symptoms Cardiovascular: reports: Shortness of Breath. denies: Chest Pain, Edema, Palpitations Respiratory: reports: Cough, Orthopnea, PND, Snoring, SOB, SOB on Exertion, Wheezing. denies: Hemoptysis Gastrointestinal: reports: No Symptoms Genitourinary: reports: No Symptoms Breasts: reports: No Symptoms Reported Musculoskeletal: reports: No Symptoms Integumentary: reports: No Symptoms Neurological: reports: No Symptoms Endocrine: reports: No Symptoms Hematology/Lymphatic: reports: No Symptoms Psychiatric: reports: No Symptoms Physical Exam Vital Sings: Vital Signs Temperature 97.5 F L 01/15/20 22:39 Pulse Rate 92 H 01/16/20 09:52 Respiratory Rate 18 01/16/20 09:52 Blood Pressure 123/77 01/16/20 09:52 O2 Sat by Pulse Oximetry (%) 99 01/15/20 19:35 Constitutional: Yes: No Distress, Obese Eyes: Yes: Conjunctiva Clear, EOM Intact HENT: Yes: Atraumatic, Normocephalic Neck: Yes: Supple, Trachea Midline Cardiovascular: Yes: Regular Rate and Rhythm Respiratory: Yes: Cough, Diminished, Rhonchi, SOB, SOB on Exertion, Tachypnea, Wheezes. No: Accessory Muscle Use, Rales, Stridor ...Inspection: Yes: WNL ...Clubbing: No Gastrointestinal: Yes: Normal Bowel Sounds, Soft, Abdomen, Obese Renal/: Yes: WNL Musculoskeletal: Yes: WNL Edema: No Peripheral Pulses WNL: Yes Integumentary: Yes: WNL Neurological: Yes: WNL, Alert, Oriented ...Motor Strength: WNL Psychiatric: Yes: WNL, Alert, Oriented Labs: CBC, BMP 01/16/20 11:30 01/16/20 06:00 Imaging - Results Chest X-ray: Report Reviewed, Image Reviewed Problem List - Problems (1) Asthma exacerbation Code(s): J45.901 - UNSPECIFIED ASTHMA WITH (ACUTE) EXACERBATION Qualifiers: Asthma severity: unspecified severity Asthma persistence: unspecified Qualified Code(s): J45.901 - Unspecified asthma with (acute) exacerbation (2) Bronchitis Code(s): J40 - BRONCHITIS, NOT SPECIFIED ACUTE OR CHRONIC (3) CAD (coronary artery disease) Code(s): I25.10 - ATHSCL HEART DISEASE OF [place] CORONARY ARTERY W/O ANG PCTRS (4) Chronic systolic CHF (congestive heart failure), NYHA class 3 Code(s): I50.22 - CHRONIC SYSTOLIC (CONGESTIVE) HEART FAILURE (5) Diabetes Code(s): E11.9 - TYPE 2 DIABETES MELLITUS WITHOUT COMPLICATIONS Qualifiers: Diabetes mellitus type: type 2 (6) Dyspnea Code(s): R06.00 - DYSPNEA, UNSPECIFIED (7) Hyperlipidemia Code(s): E78.5 - HYPERLIPIDEMIA, UNSPECIFIED (8) Hypertension Code(s): I10 - ESSENTIAL (PRIMARY) HYPERTENSION Qualifiers: Hypertension type: essential hypertension Qualified Code(s): I10 - Essential (primary) hypertension (9) Hypothyroidism Code(s): E03.9 - HYPOTHYROIDISM, UNSPECIFIED (10) ICD (implantable cardioverter-defibrillator) in place Code(s): Z95.810 - PRESENCE OF AUTOMATIC (IMPLANTABLE) CARDIAC DEFIBRILLATOR (11) Morbid obesity Code(s): E66.01 - MORBID (SEVERE) OBESITY DUE TO EXCESS CALORIES (12) Paroxysmal A-fib Code(s): I48.0 - PAROXYSMAL ATRIAL FIBRILLATION (13) Sleep apnea Code(s): G47.30 - SLEEP APNEA, UNSPECIFIED Assessment/Plan PLAN: Medrol BD TX standing and PRN Singulair Patient advised to have her family bring in her AVAPS device / I will order a BiPAP ST in the interim Supplemental O2 as needed Would monitor off ABX as I suspect a viral illness Hai No smoking was counseled Glycemic control while on systemic steroids Will follow Thank you. Dr Brannon
[2020-01-16] MEDS ORDERED: ALBUTEROL SO4 2.5/IPRATROPIUM 0.5 INH SOL 3 ML VIAL.NEB. NEB SCH (13:15)
[2020-01-16] MEDS ORDERED: ALBUTEROL SO4 0.083% IH SOL 2.5 MG/3 ML VIAL.NEB. NEB PRN (13:16)
[2020-01-16] MEDS ORDERED: methylPREDNISolone NA SUCC 40 MG/1 ML VIAL ONE (18:30)
[2020-01-16 19:19] LABS: ALBUMIN 3.6 g/dl (3.4-5.0); BILIRUBIN,TOTAL 0.3 mg/dL (0.2-1); BLOOD UREA NITROGEN 24.7 mg/dL (7-18); CALCIUM 9.7 mg/dL (8.5-10.1); CREATININE 1.2 mg/dL (0.55-1.3); MAGNESIUM 2.2 mg/dL (1.8-2.4); PHOSPHOROUS 3.4 mg/dL (2.5-4.9); POTASSIUM 4.2 mmol/L (3.5-5.1); TOT PROT 7.4 g/dl (6.4-8.2)
[2020-01-16] MEDS ORDERED: APIXABAN 5 MG TABLET ONE (22:08)
[2020-01-16] MEDS ORDERED: MONTELUKAST NA 10 MG TABLET ONE (22:08)
[2020-01-16] MEDS: MONTELUKAST NA 10 MG TABLET PO SCH (22:18)
--- NOTE | 2020-01-16 23:47 | PN ---
Progress Note, Physician - Current Medication List Current Medications: Active Medications Albuterol Sulfate (Ventolin 0.083% Nebulizer Soln -) 1 amp NEB Q4H PRN PRN Reason: SHORT OF BREATH/WHEEZING Albuterol/Ipratropium (Duoneb -) 1 amp NEB RQID [facility] Last Admin: 01/16/20 20:22 Dose: 1 amp Apixaban (Eliquis -) 5 mg PO BID [facility] Last Admin: 01/16/20 22:17 Dose: 5 mg Aspirin (Ecotrin -) 81 mg PO DAILY [facility] Last Admin: 01/16/20 09:42 Dose: 81 mg Budesonide/Formoterol Fumarate (Symbicort 160/4.5mcg -) 2 puff IH BID [facility] Last Admin: 01/16/20 22:18 Dose: 2 puff Furosemide (Lasix Injection -) 20 mg IVPUSH DAILY [facility] Last Admin: 01/16/20 09:46 Dose: 20 mg Heparin Sodium (Porcine) (Heparin -) 5,000 unit SQ BID [facility] Insulin Aspart (Novolog Vial Sliding Scale -) 1 vial SQ [facility]; Protocol Last Admin: 01/16/20 22:21 Dose: 8 units Insulin Detemir (Levemir Vial) 10 units SQ HS [facility] Last Admin: 01/16/20 22:17 Dose: 10 units Insulin Detemir (Levemir Vial) 20 units SQ AM [facility] Last Admin: 01/16/20 06:46 Dose: 20 units Levothyroxine Sodium (Synthroid -) 75 mcg PO DAILY [facility] Last Admin: 01/16/20 09:46 Dose: 75 mcg Methylprednisolone Sodium Succinate (Solu-Medrol -) 40 mg IVPUSH Q8H-IV [facility] Last Admin: 01/16/20 18:36 Dose: 40 mg Metoprolol Succinate (Toprol Xl -) 25 mg PO DAILY [facility] Last Admin: 01/16/20 09:46 Dose: 25 mg Montelukast Sodium (Singulair -) 10 mg PO HS [facility] Last Admin: 01/16/20 22:18 Dose: 10 mg Non-Formulary Medication (Linaclotide [Linzess]) 290 mcg PO DAILY [facility] Pantoprazole Sodium (Protonix -) 40 mg PO DAILY [facility] Last Admin: 01/16/20 09:46 Dose: 40 mg Potassium Chloride (K-Dur -) 10 meq PO DAILY [facility] Last Admin: 01/16/20 10:02 Dose: 10 meq Sacubitril/Valsartan (Entresto 24 Mg-26 Mg Tablet) 1 tab PO BID [facility] Last Admin: 01/16/20 09:43 Dose: 1 tab Spironolactone (Aldactone -) 25 mg PO DAILY [facility] Last Admin: 01/16/20 09:43 Dose: 25 mg - Objective Vital Signs: Vital Signs Temperature 97.4 F L 01/16/20 19:15 Pulse Rate 87 01/16/20 19:15 Respiratory Rate 17 01/16/20 19:15 Blood Pressure 114/65 01/16/20 19:15 O2 Sat by Pulse Oximetry (%) 100 01/16/20 19:15 Labs: CBC, BMP 01/16/20 11:30 01/16/20 18:36
[2020-01-17] MEDS: methylPREDNISolone NA SUCC 40 MG/1 ML VIAL IVPUSH SCH ×3 (01:09→17:33)
[2020-01-17] MEDS: INSULIN (LEVEMIR) 100 UNITS/ML UNITS SQ SCH ×2 (06:11→22:23)
[2020-01-17] MEDS: INSULIN SLIDING SCALE (NOVOLOG) 1 VIAL SQ SCH ×4 (06:11→22:24)
[2020-01-17] MEDS: ALBUTEROL SO4 2.5/IPRATROPIUM 0.5 INH SOL 3 ML VIAL.NEB. NEB SCH ×4 (08:27→20:29)
[2020-01-17] MEDS: SPIRONOLACTONE 25 MG TABLET (FP) PO SCH (09:31)
[2020-01-17] MEDS: POTASSIUM CHLORIDE TABS 10 MEQ TABLET.ER (FP) PO SCH (09:31)
[2020-01-17] MEDS: LEVOTHYROXINE NA 75 MCG TABLET (FP) PO SCH (09:31)
[2020-01-17] MEDS: APIXABAN 5 MG TABLET PO SCH (09:31)
[2020-01-17] MEDS: PANTOPRAZOLE 40 MG TABLET PO SCH (09:32)
[2020-01-17] MEDS: metoPROLOL SUCCINATE 25 MG TAB.SR.24H (FP) PO SCH (09:32)
[2020-01-17] MEDS: ASPIRIN COATED 81 MG TABLET.EC PO SCH (09:32)
[2020-01-17] MEDS: FUROSEMIDE 40 MG/4 ML INJECTABLE VIAL IVPUSH SCH (09:32)
[2020-01-17] MEDS: SACUBITRIL/VALSARTAN 24 MG-26 MG TABLET PO SCH ×2 (09:35→22:22)
[2020-01-17] MEDS: BUDESONIDE/FORMETEROL FUMARATE 160/4.5 mcg INHALER IH SCH ×2 (09:37→22:28)
--- NOTE | 2020-01-17 10:25 | EKG ---
Test Reason : Blood Pressure : / mmHG Vent. Rate : 092 BPM Atrial Rate : 092 BPM P-R Int : 128 ms QRS Dur : 120 ms QT Int : 416 ms P-R-T Axes : 050 -18 103 degrees QTc Int : 514 ms NORMAL SINUS RHYTHM /IVCD /LBBB NONSPECIFIC T WAVE ABNORMALITY ABNORMAL ECG WHEN COMPARED WITH ECG OF 26-DEC-2019 12:35, PREMATURE VENTRICULAR COMPLEXES ARE NO LONGER PRESENT Confirmed by Asmita Berg [id number]) on 01/17/2020 10:24:47 AM Referred By: Confirmed By:Asmita Berg
[2020-01-17] MEDS: HEPARIN NA (PORCINE) 5,000 UNITS/ML 1ML VIAL SQ SCH (10:43)
[2020-01-17 10:46] LABS: BLOOD UREA NITROGEN 28.5 mg/dL (7-18); CALCIUM 9.4 mg/dL (8.5-10.1); CREATININE 1.4 mg/dL (0.55-1.3); POTASSIUM 4.3 mmol/L (3.5-5.1)
--- NOTE | 2020-01-17 11:18 | PN ---
Progress Note (short form) - Note Progress Note: Breathing feels a little better today. Less wheezing. No CP. Used her AVAPS device overnight. Intake & Output 01/14/20 01/15/20 01/16/20 01/17/20 23:59 23:59 23:59 23:59 Intake Total 200 Balance 200 Weight 240 lb 256 lb 5.4 oz Last Vital Signs Temp Pulse Resp BP Pulse Ox 98 F 90 19 145/98 97 01/17/20 09:30 01/17/20 09:30 01/17/20 09:30 01/17/20 09:30 01/17/20 11:03 Active Medications Albuterol Sulfate (Ventolin 0.083% Nebulizer Soln -) 1 amp NEB Q4H PRN PRN Reason: SHORT OF BREATH/WHEEZING Albuterol/Ipratropium (Duoneb -) 1 amp NEB RQID [facility] Last Admin: 01/17/20 08:27 Dose: 1 amp Apixaban (Eliquis -) 5 mg PO BID [facility] Last Admin: 01/17/20 09:31 Dose: 5 mg Aspirin (Ecotrin -) 81 mg PO DAILY [facility] Last Admin: 01/17/20 09:32 Dose: 81 mg Budesonide/Formoterol Fumarate (Symbicort 160/4.5mcg -) 2 puff IH BID [facility] Last Admin: 01/17/20 09:37 Dose: 2 puff Furosemide (Lasix Injection -) 20 mg IVPUSH DAILY [facility] Last Admin: 01/17/20 09:32 Dose: 20 mg Insulin Aspart (Novolog Vial Sliding Scale -) 1 vial SQ ACHS [facility]; Protocol Last Admin: 01/17/20 06:11 Dose: 10 units Insulin Detemir (Levemir Vial) 10 units SQ HS [facility] Last Admin: 01/16/20 22:17 Dose: 10 units Insulin Detemir (Levemir Vial) 20 units SQ AM [facility] Last Admin: 01/17/20 06:11 Dose: 20 units Levothyroxine Sodium (Synthroid -) 75 mcg PO DAILY [facility] Last Admin: 01/17/20 09:31 Dose: 75 mcg Methylprednisolone Sodium Succinate (Solu-Medrol -) 40 mg IVPUSH Q8H-IV [facility] Last Admin: 01/17/20 09:32 Dose: 40 mg Metoprolol Succinate (Toprol Xl -) 25 mg PO DAILY [facility] Last Admin: 01/17/20 09:32 Dose: 25 mg Montelukast Sodium (Singulair -) 10 mg PO HS [facility] Last Admin: 01/16/20 22:18 Dose: 10 mg Pantoprazole Sodium (Protonix -) 40 mg PO DAILY [facility] Last Admin: 01/17/20 09:32 Dose: 40 mg Potassium Chloride (K-Dur -) 10 meq PO DAILY [facility] Last Admin: 01/17/20 09:31 Dose: 10 meq Sacubitril/Valsartan (Entresto 24 Mg-26 Mg Tablet) 1 tab PO BID [facility] Last Admin: 01/17/20 09:35 Dose: 1 tab Spironolactone (Aldactone -) 25 mg PO DAILY [facility] Last Admin: 01/17/20 09:31 Dose: 25 mg Constitutional: Yes: No Distress, Obese Eyes: Yes: Conjunctiva Clear, EOM Intact HENT: Yes: Atraumatic, Normocephalic Neck: Yes: Supple, Trachea Midline Cardiovascular: Yes: Regular Rate and Rhythm Respiratory: Yes: Cough, Diminished, Rhonchi, less SOB, Improving wheezes. No: Accessory Muscle Use, Rales, Stridor ...Inspection: Yes: WNL ...Clubbing: No Gastrointestinal: Yes: Normal Bowel Sounds, Soft, Abdomen, Obese Renal/: Yes: WNL Musculoskeletal: Yes: WNL Edema: No Peripheral Pulses WNL: Yes Integumentary: Yes: WNL Neurological: Yes: WNL, Alert, Oriented ...Motor Strength: WNL Psychiatric: Yes: WNL, Alert, Oriented Labs: Laboratory Results - last 24 hr 01/16/20 01/16/20 01/16/20 11:30 11:55 17:03 WBC 11.4 H RBC 4.09 Hgb 10.4 L Hct 33.0 MCV 80.8 MCH 25.5 L MCHC 31.6 L RDW 18.3 H Plt Count 321 MPV 9.9 Absolute Neuts (auto) 9.7 H Neutrophils % 85.6 H Lymphocytes % 8.7 D Monocytes % 5.4 Eosinophils % 0.0 D Basophils % 0.3 Nucleated RBC % 0 Sodium Potassium Chloride Carbon Dioxide Anion Gap BUN Creatinine Est GFR (CKD-EPI)AfAm Est GFR (CKD-EPI)NonAf POC Glucometer 215 260 Random Glucose Calcium Phosphorus Magnesium Total Bilirubin AST ALT Alkaline Phosphatase Creatine Kinase Creatine Kinase Index CK-MB (CK-2) Troponin I Total Protein Albumin 01/16/20 01/16/20 01/17/20 18:36 22:15 00:00 WBC RBC Hgb Hct MCV MCH MCHC RDW Plt Count MPV Absolute Neuts (auto) Neutrophils % Lymphocytes % Monocytes % Eosinophils % Basophils % Nucleated RBC % Sodium 138 Potassium 4.2 Chloride 103 Carbon Dioxide 28 Anion Gap 7 L BUN 24.7 H Creatinine 1.2 Est GFR (CKD-EPI)AfAm 57.29 Est GFR (CKD-EPI)NonAf 49.43 POC Glucometer 305 Random Glucose 266 H Calcium 9.7 Phosphorus 3.4 Magnesium 2.2 Total Bilirubin 0.3 AST 9 L ALT 14 Alkaline Phosphatase 87 Creatine Kinase 170 Creatine Kinase Index 1.2 CK-MB (CK-2) 2.2 Troponin I 0.11 H Total Protein 7.4 Albumin 3.6 01/17/20 01/17/20 05:53 09:50 WBC RBC Hgb Hct MCV MCH MCHC RDW Plt Count MPV Absolute Neuts (auto) Neutrophils % Lymphocytes % Monocytes % Eosinophils % Basophils % Nucleated RBC % Sodium 137 Potassium 4.3 Chloride 102 Carbon Dioxide 24 Anion Gap 12 BUN 28.5 H Creatinine 1.4 H Est GFR (CKD-EPI)AfAm 47.55 Est GFR (CKD-EPI)NonAf 41.02 POC Glucometer 433 Random Glucose 378 H Calcium 9.4 Phosphorus Magnesium Total Bilirubin AST ALT Alkaline Phosphatase Creatine Kinase Creatine Kinase Index CK-MB (CK-2) Troponin I Total Protein Albumin Problem List - Problems (1) Asthma exacerbation Code(s): J45.901 - UNSPECIFIED ASTHMA WITH (ACUTE) EXACERBATION Qualifiers: Asthma severity: unspecified severity Asthma persistence: unspecified Qualified Code(s): J45.901 - Unspecified asthma with (acute) exacerbation (2) Bronchitis Code(s): J40 - BRONCHITIS, NOT SPECIFIED ACUTE OR CHRONIC (3) CAD (coronary artery disease) Code(s): I25.10 - ATHSCL HEART DISEASE OF [place] CORONARY ARTERY W/O ANG PCTRS (4) Chronic systolic CHF (congestive heart failure), NYHA class 3 Code(s): I50.22 - CHRONIC SYSTOLIC (CONGESTIVE) HEART FAILURE (5) Diabetes Code(s): E11.9 - TYPE 2 DIABETES MELLITUS WITHOUT COMPLICATIONS Qualifiers: Diabetes mellitus type: type 2 (6) Dyspnea Code(s): R06.00 - DYSPNEA, UNSPECIFIED (7) Hyperlipidemia Code(s): E78.5 - HYPERLIPIDEMIA, UNSPECIFIED (8) Hypertension Code(s): I10 - ESSENTIAL (PRIMARY) HYPERTENSION Qualifiers: Hypertension type: essential hypertension Qualified Code(s): I10 - Essential (primary) hypertension (9) Hypothyroidism Code(s): E03.9 - HYPOTHYROIDISM, UNSPECIFIED (10) ICD (implantable cardioverter-defibrillator) in place Code(s): Z95.810 - PRESENCE OF AUTOMATIC (IMPLANTABLE) CARDIAC DEFIBRILLATOR (11) Morbid obesity Code(s): E66.01 - MORBID (SEVERE) OBESITY DUE TO EXCESS CALORIES (12) Paroxysmal A-fib Code(s): I48.0 - PAROXYSMAL ATRIAL FIBRILLATION (13) Sleep apnea Code(s): G47.30 - SLEEP APNEA, UNSPECIFIED Assessment/Plan PLAN: Medrol BD TX standing and PRN Singulair AVAPS use QHS and PRN Supplemental O2 as needed Monitor off ABX as I suspect a viral illness Eliquis No smoking was counseled Glycemic control while on systemic steroids Dr Brannon Problem List - Problems (1) Asthma exacerbation Code(s): J45.901 - UNSPECIFIED ASTHMA WITH (ACUTE) EXACERBATION Qualifiers: Asthma severity: unspecified severity Asthma persistence: unspecified Qualified Code(s): J45.901 - Unspecified asthma with (acute) exacerbation (2) Bronchitis Code(s): J40 - BRONCHITIS, NOT SPECIFIED ACUTE OR CHRONIC (3) CAD (coronary artery disease) Code(s): I25.10 - ATHSCL HEART DISEASE OF [place] CORONARY ARTERY W/O ANG PCTRS (4) Chronic systolic CHF (congestive heart failure), NYHA class 3 Code(s): I50.22 - CHRONIC SYSTOLIC (CONGESTIVE) HEART FAILURE (5) Diabetes Code(s): E11.9 - TYPE 2 DIABETES MELLITUS WITHOUT COMPLICATIONS Qualifiers: Diabetes mellitus type: type 2 (6) Dyspnea Code(s): R06.00 - DYSPNEA, UNSPECIFIED (7) Hyperlipidemia Code(s): E78.5 - HYPERLIPIDEMIA, UNSPECIFIED (8) Hypertension Code(s): I10 - ESSENTIAL (PRIMARY) HYPERTENSION Qualifiers: Hypertension type: essential hypertension Qualified Code(s): I10 - Essential (primary) hypertension (9) Hypothyroidism Code(s): E03.9 - HYPOTHYROIDISM, UNSPECIFIED (10) ICD (implantable cardioverter-defibrillator) in place Code(s): Z95.810 - PRESENCE OF AUTOMATIC (IMPLANTABLE) CARDIAC DEFIBRILLATOR (11) Morbid obesity Code(s): E66.01 - MORBID (SEVERE) OBESITY DUE TO EXCESS CALORIES (12) Paroxysmal A-fib Code(s): I48.0 - PAROXYSMAL ATRIAL FIBRILLATION (13) Sleep apnea Code(s): G47.30 - SLEEP APNEA, UNSPECIFIED
--- NOTE | 2020-01-17 11:22 | PN ---
Progress Note (short form) - Note Progress Note: s: edema resolved, sob improving. no chest pain,palps, dizziness Current Medications Albuterol Sulfate (Ventolin 0.083% Nebulizer Soln -) 1 amp NEB Q4H PRN PRN Reason: SHORT OF BREATH/WHEEZING Albuterol/Ipratropium (Duoneb -) 1 amp NEB RQID [facility] Last Admin: 01/17/20 08:27 Dose: 1 amp Apixaban (Eliquis -) 5 mg PO BID [facility] Last Admin: 01/17/20 09:31 Dose: 5 mg Aspirin (Ecotrin -) 81 mg PO DAILY [facility] Last Admin: 01/17/20 09:32 Dose: 81 mg Budesonide/Formoterol Fumarate (Symbicort 160/4.5mcg -) 2 puff IH BID [facility] Last Admin: 01/17/20 09:37 Dose: 2 puff Furosemide (Lasix Injection -) 20 mg IVPUSH DAILY [facility] Last Admin: 01/17/20 09:32 Dose: 20 mg Insulin Aspart (Novolog Vial Sliding Scale -) 1 vial SQ [facility]; Protocol Last Admin: 01/17/20 06:11 Dose: 10 units Insulin Detemir (Levemir Vial) 10 units SQ HS [facility] Last Admin: 01/16/20 22:17 Dose: 10 units Insulin Detemir (Levemir Vial) 20 units SQ AM [facility] Last Admin: 01/17/20 06:11 Dose: 20 units Levothyroxine Sodium (Synthroid -) 75 mcg PO DAILY [facility] Last Admin: 01/17/20 09:31 Dose: 75 mcg Methylprednisolone Sodium Succinate (Solu-Medrol -) 40 mg IVPUSH Q8H-IV [facility] Last Admin: 01/17/20 09:32 Dose: 40 mg Metoprolol Succinate (Toprol Xl -) 25 mg PO DAILY [facility] Last Admin: 01/17/20 09:32 Dose: 25 mg Montelukast Sodium (Singulair -) 10 mg PO HS [facility] Last Admin: 01/16/20 22:18 Dose: 10 mg Pantoprazole Sodium (Protonix -) 40 mg PO DAILY [facility] Last Admin: 01/17/20 09:32 Dose: 40 mg Potassium Chloride (K-Dur -) 10 meq PO DAILY [facility] Last Admin: 01/17/20 09:31 Dose: 10 meq Sacubitril/Valsartan (Entresto 24 Mg-26 Mg Tablet) 1 tab PO BID [facility] Last Admin: 01/17/20 09:35 Dose: 1 tab Spironolactone (Aldactone -) 25 mg PO DAILY [facility] Last Admin: 01/17/20 09:31 Dose: 25 mg Vital Signs Period Temp Pulse Resp BP Sys/Mcgrath Pulse Ox Last 24 Hr 97.4 F-98.4 F 76-91 17-20 114-145/65-98 96-100 Constitutional: Yes: Well Nourished, No Distress, Obese Eyes: No: Sclera Icterus HENT: No: Nasal Congestion Neck: No: Decreased ROM Respiratory: Yes: CTA Bilaterally. No: Accessory Muscle Use, Rales, Wheezes Gastrointestinal: Yes: Normal Bowel Sounds. No: Distention, Hepatomegaly, Palpable Mass, Tenderness Cardiovascular: Yes: Regular Rate and Rhythm JVD: No Heart Sounds: Yes: S1, S2. No: Gallop Murmur: No: Systolic Murmur, Diastolic Murmur Musculoskeletal: Yes: Other (No kyphosis) Extremities: No: Cool, Cyanosis Edema: no Integumentary: No: Jaundice Neurological: Yes: Alert, Oriented (x3) Psychiatric: No: Agitated Assessment/Plan Cardiac Catheterization 2019 non-obstructive CAD echo 05/2019 tds, mildly dilated LV, severe global hypok, RV nl CXR: clear lungs/pleura EKG: sinus, LBBB tele: sinus shortness of breath - may be multifactorial - recent wt gain of 6 lbs, elevated BNP compared to prior and swelling suggest component of CHF exac - edema improving, still has edema in hands. wt today 256 lbs, last dc weight 2019 252. cont IV lasix for now, monitor Cr, lytes, daily weights - manage asthma/COPD per pulm acute chronic systolic HF, s/p ICD - recent RHC/LHC at [facility] reportedly no significant findings - cont entresto, spironolactone, metoprolol = home regimen - cont IV lasix as above - monitor daily Cr, lytes, weights - outpatient ICD monitoring elevated trop - indeterminate range, flat trend - similar to prior values, EKG similar to prior - unlikely ACS copd/asthma: - manage per pulm HTN: - bp controlled - same meds paroxysmal afib - in sinus --cont home bb - cont home eliquis for AC (5 bid) HLD - cont statin
[2020-01-17] MEDS ORDERED: PT OWN MED DRAWER 7, Y5N ONE (21:45)
[2020-01-17] MEDS ORDERED: INSULIN (NOVOLOG) ASPART 100 UNITS/ML 10ML VIAL SQ ONE (22:15)
[2020-01-17] MEDS: MONTELUKAST NA 10 MG TABLET PO SCH (22:21)
[2020-01-17] MEDS: APIXABAN 2.5 MG TABLET PO SCH (22:22)
--- NOTE | 2020-01-17 23:41 | PN ---
Progress Note, Physician History of Present Illness: Pt feeling slightly dyspneic on ambulation - Current Medication List Current Medications: Active Medications Albuterol Sulfate (Ventolin 0.083% Nebulizer Soln -) 1 amp NEB Q4H PRN PRN Reason: SHORT OF BREATH/WHEEZING Albuterol/Ipratropium (Duoneb -) 1 amp NEB RQID [facility] Last Admin: 01/17/20 20:29 Dose: 1 amp Apixaban (Eliquis -) 5 mg PO BID [facility] Last Admin: 01/17/20 22:22 Dose: 5 mg Aspirin (Ecotrin -) 81 mg PO DAILY [facility] Last Admin: 01/17/20 09:32 Dose: 81 mg Budesonide/Formoterol Fumarate (Symbicort 160/4.5mcg -) 2 puff IH BID [facility] Last Admin: 01/17/20 22:28 Dose: 2 puff Furosemide (Lasix Injection -) 20 mg IVPUSH DAILY [facility] Last Admin: 01/17/20 09:32 Dose: 20 mg Insulin Aspart (Novolog Vial Sliding Scale -) 1 vial SQ [facility]; Protocol Last Admin: 01/17/20 22:24 Dose: Not Given Insulin Detemir (Levemir Vial) 10 units SQ HS [facility] Last Admin: 01/17/20 22:23 Dose: 10 units Insulin Detemir (Levemir Vial) 20 units SQ AM [facility] Last Admin: 01/17/20 06:11 Dose: 20 units Levothyroxine Sodium (Synthroid -) 75 mcg PO DAILY [facility] Last Admin: 01/17/20 09:31 Dose: 75 mcg Methylprednisolone Sodium Succinate (Solu-Medrol -) 40 mg IVPUSH Q8H-IV [facility] Last Admin: 01/17/20 17:33 Dose: 40 mg Metoprolol Succinate (Toprol Xl -) 25 mg PO DAILY [facility] Last Admin: 01/17/20 09:32 Dose: 25 mg Montelukast Sodium (Singulair -) 10 mg PO HS [facility] Last Admin: 01/17/20 22:21 Dose: 10 mg Pantoprazole Sodium (Protonix -) 40 mg PO DAILY [facility] Last Admin: 01/17/20 09:32 Dose: 40 mg Potassium Chloride (K-Dur -) 10 meq PO DAILY [facility] Last Admin: 01/17/20 09:31 Dose: 10 meq Sacubitril/Valsartan (Entresto 24 Mg-26 Mg Tablet) 1 tab PO BID [facility] Last Admin: 01/17/20 22:22 Dose: 1 tab Spironolactone (Aldactone -) 25 mg PO DAILY [facility] Last Admin: 01/17/20 09:31 Dose: 25 mg - Objective Vital Signs: Vital Signs Temperature 97.5 F L 01/17/20 21:40 Pulse Rate 88 01/17/20 21:40 Respiratory Rate 18 01/17/20 21:40 Blood Pressure 106/70 01/17/20 21:40 O2 Sat by Pulse Oximetry (%) 97 01/17/20 21:00 Constitutional: Yes: Well Nourished, Obese Neck: Yes: WNL Cardiovascular: Yes: WNL, Regular Rate and Rhythm Respiratory: Yes: Diminished Gastrointestinal: Yes: WNL, Normal Bowel Sounds, Soft, Abdomen, Obese Labs: CBC, BMP 01/16/20 11:30 01/17/20 09:50 Problem List - Problems (1) Acute on chronic systolic (congestive) heart failure Assessment/Plan: Cont IV lasix/entresto/spironolactone Monitor labs Code(s): I50.23 - ACUTE ON CHRONIC SYSTOLIC (CONGESTIVE) HEART FAILURE (2) Asthma exacerbation Assessment/Plan: Cont IV steroids Cont nebulizers Code(s): J45.901 - UNSPECIFIED ASTHMA WITH (ACUTE) EXACERBATION Qualifiers: Asthma severity: unspecified severity Asthma persistence: unspecified Qualified Code(s): J45.901 - Unspecified asthma with (acute) exacerbation (3) Elevated troponin Assessment/Plan: Due to demand ischemia Code(s): R79.89 - OTHER SPECIFIED ABNORMAL FINDINGS OF BLOOD CHEMISTRY (4) CAD (coronary artery disease) Code(s): I25.10 - ATHSCL HEART DISEASE OF [place] CORONARY ARTERY W/O ANG PCTRS (5) Diabetes Assessment/Plan: Cont levemir Cont sliding scale Code(s): E11.9 - TYPE 2 DIABETES MELLITUS WITHOUT COMPLICATIONS Qualifiers: Diabetes mellitus type: type 2 (6) Hyperlipidemia Code(s): E78.5 - HYPERLIPIDEMIA, UNSPECIFIED (7) Hypertension Code(s): I10 - ESSENTIAL (PRIMARY) HYPERTENSION Qualifiers: Hypertension type: essential hypertension Qualified Code(s): I10 - Essential (primary) hypertension (8) Hypothyroidism Code(s): E03.9 - HYPOTHYROIDISM, UNSPECIFIED (9) Cardiomyopathy Code(s): I42.9 - CARDIOMYOPATHY, UNSPECIFIED (10) Morbid obesity Code(s): E66.01 - MORBID (SEVERE) OBESITY DUE TO EXCESS CALORIES (11) ICD (implantable cardioverter-defibrillator) in place Code(s): Z95.810 - PRESENCE OF AUTOMATIC (IMPLANTABLE) CARDIAC DEFIBRILLATOR (12) Hypothyroidism Code(s): E03.9 - HYPOTHYROIDISM, UNSPECIFIED
[2020-01-18] MEDS: methylPREDNISolone NA SUCC 40 MG/1 ML VIAL IVPUSH SCH ×3 (02:36→17:30)
[2020-01-18] MEDS: INSULIN SLIDING SCALE (NOVOLOG) 1 VIAL SQ SCH ×4 (06:17→21:13)
[2020-01-18] MEDS: INSULIN (LEVEMIR) 100 UNITS/ML UNITS SQ SCH ×2 (06:18→21:13)
[2020-01-18] MEDS ORDERED: INSULIN (LEVEMIR) 100 UNITS/ML UNITS SQ ONE (07:15)
[2020-01-18] MEDS: ALBUTEROL SO4 2.5/IPRATROPIUM 0.5 INH SOL 3 ML VIAL.NEB. NEB SCH ×4 (07:30→21:00)
[2020-01-18 07:58] LABS: BLOOD UREA NITROGEN 27.4 mg/dL (7-18); CALCIUM 9.5 mg/dL (8.5-10.1); CREATININE 1.2 mg/dL (0.55-1.3); POTASSIUM 4.9 mmol/L (3.5-5.1)
[2020-01-18] MEDS: FUROSEMIDE 40 MG/4 ML INJECTABLE VIAL IVPUSH SCH (10:42)
[2020-01-18] MEDS: LEVOTHYROXINE NA 75 MCG TABLET (FP) PO SCH (10:43)
[2020-01-18] MEDS: APIXABAN 2.5 MG TABLET PO SCH ×2 (10:43→21:13)
[2020-01-18] MEDS: POTASSIUM CHLORIDE TABS 10 MEQ TABLET.ER (FP) PO SCH (10:43)
[2020-01-18] MEDS: PANTOPRAZOLE 40 MG TABLET PO SCH (10:43)
[2020-01-18] MEDS: SPIRONOLACTONE 25 MG TABLET (FP) PO SCH (10:43)
[2020-01-18] MEDS: ASPIRIN COATED 81 MG TABLET.EC PO SCH (10:44)
[2020-01-18] MEDS: metoPROLOL SUCCINATE 25 MG TAB.SR.24H (FP) PO SCH (10:44)
[2020-01-18] MEDS: SACUBITRIL/VALSARTAN 24 MG-26 MG TABLET PO SCH ×2 (10:45→21:13)
[2020-01-18] MEDS: BUDESONIDE/FORMETEROL FUMARATE 160/4.5 mcg INHALER IH SCH ×2 (10:46→21:14)
--- NOTE | 2020-01-18 11:06 | PN ---
Progress Note (short form) - Note Progress Note: s: hand swelling improving, sob improving. no chest pain,palps, dizziness Current Medications Albuterol Sulfate (Ventolin 0.083% Nebulizer Soln -) 1 amp NEB Q4H PRN PRN Reason: SHORT OF BREATH/WHEEZING Albuterol/Ipratropium (Duoneb -) 1 amp NEB RQID [facility] Last Admin: 01/17/20 20:29 Dose: 1 amp Apixaban (Eliquis -) 5 mg PO BID [facility] Last Admin: 01/18/20 10:43 Dose: 5 mg Aspirin (Ecotrin -) 81 mg PO DAILY [facility] Last Admin: 01/18/20 10:44 Dose: 81 mg Budesonide/Formoterol Fumarate (Symbicort 160/4.5mcg -) 2 puff IH BID [facility] Last Admin: 01/18/20 10:46 Dose: 2 puff Furosemide (Lasix Injection -) 20 mg IVPUSH DAILY [facility] Last Admin: 01/18/20 10:42 Dose: 20 mg Insulin Aspart (Novolog Vial Sliding Scale -) 1 vial SQ ACHS [facility]; Protocol Last Admin: 01/18/20 06:17 Dose: 8 units Insulin Detemir (Levemir Vial) 10 units SQ HS [facility] Last Admin: 01/17/20 22:23 Dose: 10 units Insulin Detemir (Levemir Vial) 20 units SQ AM [facility] Last Admin: 01/18/20 06:18 Dose: 20 units Levothyroxine Sodium (Synthroid -) 75 mcg PO DAILY [facility] Last Admin: 01/18/20 10:43 Dose: 75 mcg Methylprednisolone Sodium Succinate (Solu-Medrol -) 40 mg IVPUSH Q8H-IV [facility] Last Admin: 01/18/20 10:42 Dose: 40 mg Metoprolol Succinate (Toprol Xl -) 25 mg PO DAILY [facility] Last Admin: 01/18/20 10:44 Dose: 25 mg Montelukast Sodium (Singulair -) 10 mg PO HS [facility] Last Admin: 01/17/20 22:21 Dose: 10 mg Pantoprazole Sodium (Protonix -) 40 mg PO DAILY [facility] Last Admin: 01/18/20 10:43 Dose: 40 mg Potassium Chloride (K-Dur -) 10 meq PO DAILY [facility] Last Admin: 01/18/20 10:43 Dose: 10 meq Sacubitril/Valsartan (Entresto 24 Mg-26 Mg Tablet) 1 tab PO BID [facility] Last Admin: 01/18/20 10:45 Dose: 1 tab Spironolactone (Aldactone -) 25 mg PO DAILY [facility] Last Admin: 01/18/20 10:43 Dose: 25 mg Vital Signs Period Temp Pulse Resp BP Sys/Mcgrath Pulse Ox Last 24 Hr 97.5 F-99.0 F 83-95 18-20 106-136/66-102 97 Constitutional: Yes: Well Nourished, No Distress, Obese Eyes: No: Sclera Icterus HENT: No: Nasal Congestion Neck: No: Decreased ROM Respiratory: Yes: CTA Bilaterally. No: Accessory Muscle Use, Rales, Wheezes Gastrointestinal: Yes: Normal Bowel Sounds. No: Distention, Hepatomegaly, Palpable Mass, Tenderness Cardiovascular: Yes: Regular Rate and Rhythm JVD: No Heart Sounds: Yes: S1, S2. No: Gallop Murmur: No: Systolic Murmur, Diastolic Murmur Musculoskeletal: Yes: Other (No kyphosis) Extremities: No: Cool, Cyanosis Edema: no Integumentary: No: Jaundice Neurological: Yes: Alert, Oriented (x3) Psychiatric: No: Agitated Assessment/Plan Cardiac Catheterization 2019 non-obstructive CAD echo 05/2019 tds, mildly dilated LV, severe global hypok, RV nl CXR: clear lungs/pleura EKG: sinus, LBBB tele: sinus shortness of breath - may be multifactorial - recent wt gain of 6 lbs, elevated BNP compared to prior and swelling suggest component of CHF exac - edema improving, still has edema in hands. wt coming down, last dc weight 2019 252. cont IV lasix for now, monitor Cr, lytes, daily weights - manage asthma/COPD per pulm acute chronic systolic HF, s/p ICD - recent RHC/LHC at [facility] reportedly no significant findings - cont entresto, spironolactone, metoprolol = home regimen - cont IV lasix as above - monitor daily Cr, lytes, weights - outpatient ICD monitoring elevated trop - indeterminate range, flat trend - similar to prior values, EKG similar to prior - unlikely ACS copd/asthma: - manage per pulm HTN: - bp controlled - same meds paroxysmal afib - in sinus --cont home bb - cont home eliquis for AC (5 bid) HLD - cont statin
--- NOTE | 2020-01-18 12:00 | PN ---
Progress Note, Physician History of Present Illness: PULMONARY ALERT,FEELING BETTER,LESS DYSPNEIC - Current Medication List Current Medications: Active Medications Albuterol Sulfate (Ventolin 0.083% Nebulizer Soln -) 1 amp NEB Q4H PRN PRN Reason: SHORT OF BREATH/WHEEZING Albuterol/Ipratropium (Duoneb -) 1 amp NEB RQID [facility] Last Admin: 01/17/20 20:29 Dose: 1 amp Apixaban (Eliquis -) 5 mg PO BID [facility] Last Admin: 01/18/20 10:43 Dose: 5 mg Aspirin (Ecotrin -) 81 mg PO DAILY [facility] Last Admin: 01/18/20 10:44 Dose: 81 mg Budesonide/Formoterol Fumarate (Symbicort 160/4.5mcg -) 2 puff IH BID [facility] Last Admin: 01/18/20 10:46 Dose: 2 puff Furosemide (Lasix Injection -) 20 mg IVPUSH DAILY [facility] Last Admin: 01/18/20 10:42 Dose: 20 mg Insulin Aspart (Novolog Vial Sliding Scale -) [address] [facility]; Protocol Last Admin: 01/18/20 11:45 Dose: 10 units Insulin Detemir (Levemir Vial) 10 units SQ HS [facility] Last Admin: 01/17/20 22:23 Dose: 10 units Insulin Detemir (Levemir Vial) 20 units SQ AM [facility] Last Admin: 01/18/20 06:18 Dose: 20 units Levothyroxine Sodium (Synthroid -) 75 mcg PO DAILY [facility] Last Admin: 01/18/20 10:43 Dose: 75 mcg Methylprednisolone Sodium Succinate (Solu-Medrol -) 40 mg IVPUSH Q8H-IV [facility] Last Admin: 01/18/20 10:42 Dose: 40 mg Metoprolol Succinate (Toprol Xl -) 25 mg PO DAILY [facility] Last Admin: 01/18/20 10:44 Dose: 25 mg Montelukast Sodium (Singulair -) 10 mg PO HS [facility] Last Admin: 01/17/20 22:21 Dose: 10 mg Pantoprazole Sodium (Protonix -) 40 mg PO DAILY [facility] Last Admin: 01/18/20 10:43 Dose: 40 mg Potassium Chloride (K-Dur -) 10 meq PO DAILY [facility] Last Admin: 01/18/20 10:43 Dose: 10 meq Sacubitril/Valsartan (Entresto 24 Mg-26 Mg Tablet) 1 tab PO BID [facility] Last Admin: 01/18/20 10:45 Dose: 1 tab Spironolactone (Aldactone -) 25 mg PO DAILY [facility] Last Admin: 01/18/20 10:43 Dose: 25 mg - Objective Vital Signs: Vital Signs Temperature 98.2 F 01/18/20 08:56 Pulse Rate 90 01/18/20 08:56 Respiratory Rate 18 01/18/20 08:56 Blood Pressure 119/70 01/18/20 08:56 O2 Sat by Pulse Oximetry (%) 97 01/17/20 21:00 Constitutional: Yes: Well Nourished, Calm Eyes: Yes: WNL HENT: Yes: WNL Neck: Yes: WNL Cardiovascular: Yes: Regular Rate and Rhythm, S1 Respiratory: Yes: Wheezes (FEW SCATTERED WHEEZES) Gastrointestinal: Yes: Normal Bowel Sounds, Soft Extremities: Yes: WNL Edema: No Labs: CBC, BMP 01/18/20 06:20 Assessment/Plan Problem List - Problems (1) Asthma exacerbation Code(s): J45.901 - UNSPECIFIED ASTHMA WITH (ACUTE) EXACERBATION Qualifiers: Asthma severity: unspecified severity Asthma persistence: unspecified Qualified Code(s): J45.901 - Unspecified asthma with (acute) exacerbation (2) Bronchitis Code(s): J40 - BRONCHITIS, NOT SPECIFIED ACUTE OR CHRONIC (3) CAD (coronary artery disease) Code(s): I25.10 - ATHSCL HEART DISEASE OF [place] CORONARY ARTERY W/O ANG PCTRS (4) Chronic systolic CHF (congestive heart failure), NYHA class 3 Code(s): I50.22 - CHRONIC SYSTOLIC (CONGESTIVE) HEART FAILURE (5) Diabetes Code(s): E11.9 - TYPE 2 DIABETES MELLITUS WITHOUT COMPLICATIONS Qualifiers: Diabetes mellitus type: type 2 (6) Dyspnea Code(s): R06.00 - DYSPNEA, UNSPECIFIED (7) Hyperlipidemia Code(s): E78.5 - HYPERLIPIDEMIA, UNSPECIFIED (8) Hypertension Code(s): I10 - ESSENTIAL (PRIMARY) HYPERTENSION Qualifiers: Hypertension type: essential hypertension Qualified Code(s): I10 - Essential (primary) hypertension (9) Hypothyroidism Code(s): E03.9 - HYPOTHYROIDISM, UNSPECIFIED (10) ICD (implantable cardioverter-defibrillator) in place Code(s): Z95.810 - PRESENCE OF AUTOMATIC (IMPLANTABLE) CARDIAC DEFIBRILLATOR (11) Morbid obesity Code(s): E66.01 - MORBID (SEVERE) OBESITY DUE TO EXCESS CALORIES (12) Paroxysmal A-fib Code(s): I48.0 - PAROXYSMAL ATRIAL FIBRILLATION (13) Sleep apnea Code(s): G47.30 - SLEEP APNEA, UNSPECIFIED Assessment/Plan PLAN: Medrol same dose start taper in am BD TX standing and PRN Singulair AVAPS use QHS and PRN Supplemental O2 as needed Eliqugolden No smoking was counseled Glycemic control while on systemic steroids Dr Lee Problem List - Problems (1) Asthma exacerbation Code(s): J45.901 - UNSPECIFIED ASTHMA WITH (ACUTE) EXACERBATION Qualifiers: Asthma severity: unspecified severity Asthma persistence: unspecified Qualified Code(s): J45.901 - Unspecified asthma with (acute) exacerbation (2) Bronchitis Code(s): J40 - BRONCHITIS, NOT SPECIFIED ACUTE OR CHRONIC (3) CAD (coronary artery disease) Code(s): I25.10 - ATHSCL HEART DISEASE OF [place] CORONARY ARTERY W/O ANG PCTRS (4) Chronic systolic CHF (congestive heart failure), NYHA class 3 Code(s): I50.22 - CHRONIC SYSTOLIC (CONGESTIVE) HEART FAILURE (5) Diabetes Code(s): E11.9 - TYPE 2 DIABETES MELLITUS WITHOUT COMPLICATIONS Qualifiers: Diabetes mellitus type: type 2 (6) Dyspnea Code(s): R06.00 - DYSPNEA, UNSPECIFIED (7) Hyperlipidemia Code(s): E78.5 - HYPERLIPIDEMIA, UNSPECIFIED (8) Hypertension Code(s): I10 - ESSENTIAL (PRIMARY) HYPERTENSION Qualifiers: Hypertension type: essential hypertension Qualified Code(s): I10 - Essential (primary) hypertension (9) Hypothyroidism Code(s): E03.9 - HYPOTHYROIDISM, UNSPECIFIED (10) ICD (implantable cardioverter-defibrillator) in place Code(s): Z95.810 - PRESENCE OF AUTOMATIC (IMPLANTABLE) CARDIAC DEFIBRILLATOR (11) Morbid obesity Code(s): E66.01 - MORBID (SEVERE) OBESITY DUE TO EXCESS CALORIES (12) Paroxysmal A-fib Code(s): I48.0 - PAROXYSMAL ATRIAL FIBRILLATION (13) Sleep apnea Code(s): G47.30 - SLEEP APNEA, UNSPECIFIED
[2020-01-18] MEDS ORDERED: INSULIN (NOVOLOG) ASPART 100 UNITS/ML 10ML VIAL SQ ONE (12:30)
--- NOTE | 2020-01-18 19:34 | PN ---
Progress Note, Physician - Current Medication List Current Medications: Active Medications Albuterol Sulfate (Ventolin 0.083% Nebulizer Soln -) 1 amp NEB Q4H PRN PRN Reason: SHORT OF BREATH/WHEEZING Albuterol/Ipratropium (Duoneb -) 1 amp NEB RQID [facility] Last Admin: 01/18/20 16:02 Dose: 1 amp Apixaban (Eliquis -) 5 mg PO BID [facility] Last Admin: 01/18/20 10:43 Dose: 5 mg Aspirin (Ecotrin -) 81 mg PO DAILY [facility] Last Admin: 01/18/20 10:44 Dose: 81 mg Budesonide/Formoterol Fumarate (Symbicort 160/4.5mcg -) 2 puff IH BID [facility] Last Admin: 01/18/20 10:46 Dose: 2 puff Furosemide (Lasix Injection -) 20 mg IVPUSH DAILY [facility] Last Admin: 01/18/20 10:42 Dose: 20 mg Insulin Aspart (Novolog Vial Sliding Scale -) 1 vial SQ [facility]; Protocol Last Admin: 01/18/20 17:30 Dose: 10 units Insulin Detemir (Levemir Vial) 10 units SQ HS [facility] Last Admin: 01/17/20 22:23 Dose: 10 units Insulin Detemir (Levemir Vial) 20 units SQ AM [facility] Last Admin: 01/18/20 06:18 Dose: 20 units Levothyroxine Sodium (Synthroid -) 75 mcg PO DAILY [facility] Last Admin: 01/18/20 10:43 Dose: 75 mcg Methylprednisolone Sodium Succinate (Solu-Medrol -) 40 mg IVPUSH Q8H-IV [facility] Last Admin: 01/18/20 17:30 Dose: 40 mg Metoprolol Succinate (Toprol Xl -) 25 mg PO DAILY [facility] Last Admin: 01/18/20 10:44 Dose: 25 mg Montelukast Sodium (Singulair -) 10 mg PO HS [facility] Last Admin: 01/17/20 22:21 Dose: 10 mg Pantoprazole Sodium (Protonix -) 40 mg PO DAILY [facility] Last Admin: 01/18/20 10:43 Dose: 40 mg Potassium Chloride (K-Dur -) 10 meq PO DAILY [facility] Last Admin: 01/18/20 10:43 Dose: 10 meq Sacubitril/Valsartan (Entresto 24 Mg-26 Mg Tablet) 1 tab PO BID [facility] Last Admin: 01/18/20 10:45 Dose: 1 tab Spironolactone (Aldactone -) 25 mg PO DAILY [facility] Last Admin: 01/18/20 10:43 Dose: 25 mg - Objective Vital Signs: Vital Signs Temperature 97.9 F 01/18/20 18:00 Pulse Rate 90 01/18/20 18:00 Respiratory Rate 18 01/18/20 18:00 Blood Pressure 130/85 01/18/20 18:00 O2 Sat by Pulse Oximetry (%) 100 01/18/20 09:00 Labs: CBC, BMP 01/16/20 11:30 01/18/20 06:20 Problem List - Problems (1) Acute on chronic systolic (congestive) heart failure Code(s): I50.23 - ACUTE ON CHRONIC SYSTOLIC (CONGESTIVE) HEART FAILURE (2) Asthma exacerbation Code(s): J45.901 - UNSPECIFIED ASTHMA WITH (ACUTE) EXACERBATION Qualifiers: Asthma severity: unspecified severity Asthma persistence: unspecified Qualified Code(s): J45.901 - Unspecified asthma with (acute) exacerbation (3) Elevated troponin Code(s): R79.89 - OTHER SPECIFIED ABNORMAL FINDINGS OF BLOOD CHEMISTRY (4) CAD (coronary artery disease) Code(s): I25.10 - ATHSCL HEART DISEASE OF [place] CORONARY ARTERY W/O ANG PCTRS (5) Diabetes Code(s): E11.9 - TYPE 2 DIABETES MELLITUS WITHOUT COMPLICATIONS Qualifiers: Diabetes mellitus type: type 2 (6) Hyperlipidemia Code(s): E78.5 - HYPERLIPIDEMIA, UNSPECIFIED (7) Hypertension Code(s): I10 - ESSENTIAL (PRIMARY) HYPERTENSION Qualifiers: Hypertension type: essential hypertension Qualified Code(s): I10 - Essential (primary) hypertension (8) Hypothyroidism Code(s): E03.9 - HYPOTHYROIDISM, UNSPECIFIED (9) Cardiomyopathy Code(s): I42.9 - CARDIOMYOPATHY, UNSPECIFIED (10) Morbid obesity Code(s): E66.01 - MORBID (SEVERE) OBESITY DUE TO EXCESS CALORIES (11) ICD (implantable cardioverter-defibrillator) in place Code(s): Z95.810 - PRESENCE OF AUTOMATIC (IMPLANTABLE) CARDIAC DEFIBRILLATOR (12) Hypothyroidism Code(s): E03.9 - HYPOTHYROIDISM, UNSPECIFIED
[2020-01-18] MEDS ORDERED: PT OWN MED DRAWER 7, Y5N ONE (21:05)
[2020-01-18] MEDS: MONTELUKAST NA 10 MG TABLET PO SCH (21:13)
[2020-01-19] MEDS: methylPREDNISolone NA SUCC 40 MG/1 ML VIAL IVPUSH SCH ×4 (01:34→22:43)
[2020-01-19] MEDS: INSULIN (LEVEMIR) 100 UNITS/ML UNITS SQ SCH ×2 (06:44→22:57)
[2020-01-19] MEDS: INSULIN SLIDING SCALE (NOVOLOG) 1 VIAL SQ SCH ×4 (06:44→23:12)
[2020-01-19] MEDS: ALBUTEROL SO4 2.5/IPRATROPIUM 0.5 INH SOL 3 ML VIAL.NEB. NEB SCH ×4 (07:45→20:04)
[2020-01-19] MEDS ORDERED: PT OWN MED DRAWER 7, Y5N ONE ×3 (09:48→23:33)
[2020-01-19] MEDS: FUROSEMIDE 40 MG/4 ML INJECTABLE VIAL IVPUSH SCH (09:51)
[2020-01-19] MEDS: PANTOPRAZOLE 40 MG TABLET PO SCH (09:52)
[2020-01-19] MEDS: SPIRONOLACTONE 25 MG TABLET (FP) PO SCH (09:52)
[2020-01-19] MEDS: POTASSIUM CHLORIDE TABS 10 MEQ TABLET.ER (FP) PO SCH (09:52)
[2020-01-19] MEDS: metoPROLOL SUCCINATE 25 MG TAB.SR.24H (FP) PO SCH (09:52)
[2020-01-19] MEDS: APIXABAN 2.5 MG TABLET PO SCH ×2 (09:52→22:57)
[2020-01-19] MEDS: LEVOTHYROXINE NA 75 MCG TABLET (FP) PO SCH (09:52)
[2020-01-19] MEDS: ASPIRIN COATED 81 MG TABLET.EC PO SCH (09:52)
[2020-01-19] MEDS: BUDESONIDE/FORMETEROL FUMARATE 160/4.5 mcg INHALER IH SCH ×2 (09:53→22:42)
[2020-01-19] MEDS: SACUBITRIL/VALSARTAN 24 MG-26 MG TABLET PO SCH ×2 (09:53→22:43)
--- NOTE | 2020-01-19 10:33 | PN ---
Progress Note (short form) - Note Progress Note: s: swelling, sob resolved. no chest pain,palps, dizziness Current Medications Albuterol Sulfate (Ventolin 0.083% Nebulizer Soln -) 1 amp NEB Q4H PRN PRN Reason: SHORT OF BREATH/WHEEZING Albuterol/Ipratropium (Duoneb -) 1 amp NEB RQID [facility] Last Admin: 01/18/20 21:00 Dose: 1 amp Apixaban (Eliquis -) 5 mg PO BID [facility] Last Admin: 01/19/20 09:52 Dose: 5 mg Aspirin (Ecotrin -) 81 mg PO DAILY [facility] Last Admin: 01/19/20 09:52 Dose: 81 mg Budesonide/Formoterol Fumarate (Symbicort 160/4.5mcg -) 2 puff IH BID [facility] Last Admin: 01/19/20 09:53 Dose: 2 puff Furosemide (Lasix -) 20 mg PO DAILY [facility] Insulin Aspart (Novolog Vial Sliding Scale -) 1 vial SQ [facility]; Protocol Last Admin: 01/19/20 06:44 Dose: 10 units Insulin Detemir (Levemir Vial) 20 units SQ AM [facility] Last Admin: 01/19/20 06:44 Dose: 20 units Insulin Detemir (Levemir Vial) 20 units SQ HS [facility] Last Admin: 01/18/20 21:13 Dose: 20 units Levothyroxine Sodium (Synthroid -) 75 mcg PO DAILY [facility] Last Admin: 01/19/20 09:52 Dose: 75 mcg Methylprednisolone Sodium Succinate (Solu-Medrol -) 40 mg IVPUSH Q8H-IV [facility] Last Admin: 01/19/20 09:52 Dose: 40 mg Metoprolol Succinate (Toprol Xl -) 25 mg PO DAILY [facility] Last Admin: 01/19/20 09:52 Dose: 25 mg Montelukast Sodium (Singulair -) 10 mg PO HS [facility] Last Admin: 01/18/20 21:13 Dose: 10 mg Pantoprazole Sodium (Protonix -) 40 mg PO DAILY [facility] Last Admin: 01/19/20 09:52 Dose: 40 mg Potassium Chloride (K-Dur -) 10 meq PO DAILY [facility] Last Admin: 01/19/20 09:52 Dose: 10 meq Sacubitril/Valsartan (Entresto 24 Mg-26 Mg Tablet) 1 tab PO BID [facility] Last Admin: 01/19/20 09:53 Dose: 1 tab Spironolactone (Aldactone -) 25 mg PO DAILY [facility] Last Admin: 01/19/20 09:52 Dose: 25 mg Vital Signs Period Temp Pulse Resp BP Sys/Mcgrath Pulse Ox Last 24 Hr 97.9 F-98.2 F 78-90 18-20 111-136/54-96 98 Constitutional: Yes: Well Nourished, No Distress, Obese Eyes: No: Sclera Icterus HENT: No: Nasal Congestion Neck: No: Decreased ROM Respiratory: Yes: CTA Bilaterally. No: Accessory Muscle Use, Rales, Wheezes Gastrointestinal: Yes: Normal Bowel Sounds. No: Distention, Hepatomegaly, Palpable Mass, Tenderness Cardiovascular: Yes: Regular Rate and Rhythm JVD: No Heart Sounds: Yes: S1, S2. No: Gallop Murmur: No: Systolic Murmur, Diastolic Murmur Musculoskeletal: Yes: Other (No kyphosis) Extremities: No: Cool, Cyanosis Edema: no Integumentary: No: Jaundice Neurological: Yes: Alert, Oriented (x3) Psychiatric: No: Agitated Assessment/Plan Cardiac Catheterization 2019 non-obstructive CAD echo 05/2019 tds, mildly dilated LV, severe global hypok, RV nl CXR: clear lungs/pleura EKG: sinus, LBBB tele: sinus shortness of breath - may be multifactorial - recent wt gain of 6 lbs, elevated BNP compared to prior and swelling suggest component of CHF exac - edema improved with IV lasix - change to PO lasix - manage asthma/COPD per pulm acute chronic systolic HF, 2/2 cardiomyopathy, s/p ICD - recent RHC/LHC at [facility] reportedly no significant findings - cont entresto, spironolactone, metoprolol = home regimen - resume home PO lasix 20 mg daily - outpatient ICD monitoring elevated trop - indeterminate range, flat trend - similar to prior values, EKG similar to prior - unlikely ACS copd/asthma: - manage per pulm HTN: - bp controlled - same meds paroxysmal afib - in sinus --cont home bb - cont home eliquis for AC (5 bid) HLD - cont statin
--- NOTE | 2020-01-19 11:15 | PN ---
Progress Note, Physician History of Present Illness: pulmonary alert,comfortable ,sob improved,-cp - Current Medication List Current Medications: Active Medications Albuterol Sulfate (Ventolin 0.083% Nebulizer Soln -) 1 amp NEB Q4H PRN PRN Reason: SHORT OF BREATH/WHEEZING Albuterol/Ipratropium (Duoneb -) 1 amp NEB RQID [facility] Last Admin: 01/18/20 21:00 Dose: 1 amp Apixaban (Eliquis -) 5 mg PO BID [facility] Last Admin: 01/19/20 09:52 Dose: 5 mg Aspirin (Ecotrin -) 81 mg PO DAILY [facility] Last Admin: 01/19/20 09:52 Dose: 81 mg Budesonide/Formoterol Fumarate (Symbicort 160/4.5mcg -) 2 puff IH BID [facility] Last Admin: 01/19/20 09:53 Dose: 2 puff Furosemide (Lasix -) 20 mg PO DAILY [facility] Insulin Aspart (Novolog Vial Sliding Scale -) 1 vial SQ [facility]; Protocol Last Admin: 01/19/20 06:44 Dose: 10 units Insulin Detemir (Levemir Vial) 20 units SQ AM [facility] Last Admin: 01/19/20 06:44 Dose: 20 units Insulin Detemir (Levemir Vial) 20 units SQ HS [facility] Last Admin: 01/18/20 21:13 Dose: 20 units Levothyroxine Sodium (Synthroid -) 75 mcg PO DAILY [facility] Last Admin: 01/19/20 09:52 Dose: 75 mcg Methylprednisolone Sodium Succinate (Solu-Medrol -) 40 mg IVPUSH Q8H-IV [facility] Last Admin: 01/19/20 09:52 Dose: 40 mg Metoprolol Succinate (Toprol Xl -) 25 mg PO DAILY [facility] Last Admin: 01/19/20 09:52 Dose: 25 mg Montelukast Sodium (Singulair -) 10 mg PO HS [facility] Last Admin: 01/18/20 21:13 Dose: 10 mg Pantoprazole Sodium (Protonix -) 40 mg PO DAILY [facility] Last Admin: 01/19/20 09:52 Dose: 40 mg Potassium Chloride (K-Dur -) 10 meq PO DAILY [facility] Last Admin: 01/19/20 09:52 Dose: 10 meq Sacubitril/Valsartan (Entresto 24 Mg-26 Mg Tablet) 1 tab PO BID [facility] Last Admin: 01/19/20 09:53 Dose: 1 tab Spironolactone (Aldactone -) 25 mg PO DAILY [facility] Last Admin: 01/19/20 09:52 Dose: 25 mg - Objective Vital Signs: Vital Signs Temperature 98.0 F 01/19/20 06:00 Pulse Rate 79 01/19/20 06:00 Respiratory Rate 18 01/19/20 06:00 Blood Pressure 136/96 01/19/20 06:00 O2 Sat by Pulse Oximetry (%) 98 01/18/20 20:42 Constitutional: Yes: Well Nourished, Calm, Obese Eyes: Yes: WNL HENT: Yes: WNL Neck: Yes: WNL Cardiovascular: Yes: Pulse Irregular, S1, S2 Respiratory: Yes: Diminished Gastrointestinal: Yes: Normal Bowel Sounds, Soft Extremities: Yes: WNL Edema: No Labs: CBC, BMP Assessment/Plan Problem List - Problems (1) Asthma exacerbation Code(s): J45.901 - UNSPECIFIED ASTHMA WITH (ACUTE) EXACERBATION Qualifiers: Asthma severity: unspecified severity Asthma persistence: unspecified Qualified Code(s): J45.901 - Unspecified asthma with (acute) exacerbation (2) Bronchitis Code(s): J40 - BRONCHITIS, NOT SPECIFIED ACUTE OR CHRONIC (3) CAD (coronary artery disease) Code(s): I25.10 - ATHSCL HEART DISEASE OF [place] CORONARY ARTERY W/O ANG PCTRS (4) Chronic systolic CHF (congestive heart failure), NYHA class 3 Code(s): I50.22 - CHRONIC SYSTOLIC (CONGESTIVE) HEART FAILURE (5) Diabetes Code(s): E11.9 - TYPE 2 DIABETES MELLITUS WITHOUT COMPLICATIONS Qualifiers: Diabetes mellitus type: type 2 (6) Dyspnea Code(s): R06.00 - DYSPNEA, UNSPECIFIED (7) Hyperlipidemia Code(s): E78.5 - HYPERLIPIDEMIA, UNSPECIFIED (8) Hypertension Code(s): I10 - ESSENTIAL (PRIMARY) HYPERTENSION Qualifiers: Hypertension type: essential hypertension Qualified Code(s): I10 - Essential (primary) hypertension (9) Hypothyroidism Code(s): E03.9 - HYPOTHYROIDISM, UNSPECIFIED (10) ICD (implantable cardioverter-defibrillator) in place Code(s): Z95.810 - PRESENCE OF AUTOMATIC (IMPLANTABLE) CARDIAC DEFIBRILLATOR (11) Morbid obesity Code(s): E66.01 - MORBID (SEVERE) OBESITY DUE TO EXCESS CALORIES (12) Paroxysmal A-fib Code(s): I48.0 - PAROXYSMAL ATRIAL FIBRILLATION (13) Sleep apnea Code(s): G47.30 - SLEEP APNEA, UNSPECIFIED Assessment/Plan PLAN: prednisoneam BD TX standing and PRN Singulair AVAPS use QHS and PRN Supplemental O2 as needed Eliquis No smoking was counseled Glycemic control while on systemic steroids Dr Lee Problem List - Problems (1) Asthma exacerbation Code(s): J45.901 - UNSPECIFIED ASTHMA WITH (ACUTE) EXACERBATION Qualifiers: Asthma severity: unspecified severity Asthma persistence: unspecified Qualified Code(s): J45.901 - Unspecified asthma with (acute) exacerbation (2) Bronchitis Code(s): J40 - BRONCHITIS, NOT SPECIFIED ACUTE OR CHRONIC (3) CAD (coronary artery disease) Code(s): I25.10 - ATHSCL HEART DISEASE OF [place] CORONARY ARTERY W/O ANG PCTRS (4) Chronic systolic CHF (congestive heart failure), NYHA class 3 Code(s): I50.22 - CHRONIC SYSTOLIC (CONGESTIVE) HEART FAILURE (5) Diabetes Code(s): E11.9 - TYPE 2 DIABETES MELLITUS WITHOUT COMPLICATIONS Qualifiers: Diabetes mellitus type: type 2 (6) Dyspnea Code(s): R06.00 - DYSPNEA, UNSPECIFIED (7) Hyperlipidemia Code(s): E78.5 - HYPERLIPIDEMIA, UNSPECIFIED (8) Hypertension Code(s): I10 - ESSENTIAL (PRIMARY) HYPERTENSION Qualifiers: Hypertension type: essential hypertension Qualified Code(s): I10 - Essential (primary) hypertension (9) Hypothyroidism Code(s): E03.9 - HYPOTHYROIDISM, UNSPECIFIED (10) ICD (implantable cardioverter-defibrillator) in place Code(s): Z95.810 - PRESENCE OF AUTOMATIC (IMPLANTABLE) CARDIAC DEFIBRILLATOR (11) Morbid obesity Code(s): E66.01 - MORBID (SEVERE) OBESITY DUE TO EXCESS CALORIES (12) Paroxysmal A-fib Code(s): I48.0 - PAROXYSMAL ATRIAL FIBRILLATION (13) Sleep apnea Code(s): G47.30 - SLEEP APNEA, UNSPECIFIED
[2020-01-19 11:47] LABS: CREATININE 1.4 mg/dL (0.55-1.3); POTASSIUM 4.7 mmol/L (3.5-5.1)
[2020-01-19] MEDS ORDERED: methylPREDNISolone NA SUCC 40 MG/1 ML VIAL IVPUSH SCH (12:00)
[2020-01-19] MEDS ORDERED: predniSONE 20 MG TABLET (UD) PO SCH (12:00)
[2020-01-19] MEDS: MONTELUKAST NA 10 MG TABLET PO SCH (22:42)
--- NOTE | 2020-01-19 22:43 | CONSULT ---
Consult Consult Specialty:: Endocrine Referred by:: Mela Lewis MD Reason for Consultation:: T2DM/HYPOTHYROIDISM - History of Present Illness Chief Complaint: SHORT OF BREATH AND WHEEZING History of Present Illness: 59 y/o female with PMH of T2DM, Hypothyroidism,Nonischemic Cardiomyopathy , COPD /Asthma, Afib (eliquis),HTN,CKD (cr 1-1.3), HLD,Morbid obesity who presents to the ED for worsening SOB [place], orthopnea, PND and 6 lbs weight gain despite lasix and fluid restriction . Pt denies any fever, chills, chest pain, abdominal pain, N/V, or change in urination/BM.she has had difficulty controlling blood sugars and has required higher dose of insulin for meal time high sugars. - Past Medical History Cardio/Vascular: Yes: CHF, HTN, Hyperlipdemia Pulmonary: Yes: Asthma, Sleep Apnea Renal/: Yes: Renal Failure Endocrine: Yes: Diabetes Mellitus, Hypothyroidism - Past Surgical History Past Surgical History: Yes: Cholecystectomy, Joint Replacement (left tkr), Permanent Pacemaker (ICD) - Alcohol/Substance Use Hx Alcohol Use: No - Smoking History Smoking history: Never smoked Have you smoked in the past 12 months: No Aproximately how many cigarettes per day: 0 - Social History Usual Living Arrangement: With Spouse ADL: Independent History of Recent Travel: No Home Medications - Allergies Allergies/Adverse Reactions: Allergies Allergy/AdvReac Type Severity Reaction Status Date / Time tomato Allergy Mild Hives Verified 01/15/20 12:27 chlorpheniramine Allergy Verified 01/15/20 12:27 cimetidine Allergy Verified 01/15/20 12:27 codeine [Codeine] Allergy Verified 01/15/20 12:27 ibuprofen Allergy Verified 01/15/20 12:27 latex [Latex] Allergy Verified 01/15/20 12:27 Latex, Natural Rubber Allergy Verified 01/15/20 12:27 pseudoephedrine Allergy Verified 01/15/20 12:27 salmeterol xinafoate Allergy Verified 01/15/20 12:27 [From Advair Diskus] shellfish derived Allergy Verified 01/15/20 12:27 Sulfa (Sulfonamide Allergy Verified 01/15/20 12:27 Antibiotics) [Sulfa(Sulfonamide Antibiotics)] Chocolate Allergy Mild Hives Uncoded 01/15/20 12:27 shrimp Allergy Mild Hives Uncoded 02/15/20 12:27 - Home Medications Home Medications: Ambulatory Orders Insulin Glargine,Hum.rec.anlog [Lantus Solostar PEN -] 20 units SQ AM 08/09/16 Budesonide/Formeterol Fumarate [SYMBICORT 160/4.5mcg -] 2 puff PO BID 10/14/16 Albuterol 2.5/Ipratropium 0.5 [Duoneb -] 1 amp NEB Q6H PRN #90 amp 05/21/19 Levothyroxine [Synthroid -] 75 mcg PO DAILY #30 tablet 05/21/19 Insulin Glargine,Hum.rec.anlog [Lantus Solostar PEN -] 10 units SQ HS 08/13/19 Metoprolol Succinate [Toprol XL -] 25 mg PO DAILY 10/10/19 Apixaban [Eliquis -] 5 mg PO BID 11/02/19 Dexlansoprazole [Dexilant -] 60 mg PO DAILY 11/02/19 Linaclotide [Linzess] 290 mcg PO DAILY 11/02/19 Sacubitril/Valsartan [Entresto 24 mg-26 mg Tablet] 1 each PO ASDIR 11/02/19 Furosemide [Lasix -] 20 mg PO DAILY #30 tablet 11/06/19 Albuterol 0.083% Nebulizer Jyothi [Ventolin 0.083% Nebulizer Soln -] 1 amp NEB Q4H PRN amp 12/13/19 Spironolactone [Aldactone -] 25 mg PO DAILY tablet 12/13/19 Aspirin Coated [Ecotrin -] 81 mg PO DAILY #30 tablet.ec 12/27/19 Potassium Chloride 10 meq PO 01/15/20 Pregabalin [Lyrica -] 25 mg PO BID 01/15/20 Tiotropium [place] [Spiriva Respimat] 2 puff IH DAILY #1 mist.inhal 01/15/20 Review of Systems - Review of Systems Constitutional: reports: Weakness Eyes: reports: Blurred Vision HENT: reports: No Symptoms Neck: reports: No Symptoms Cardiovascular: reports: Shortness of Breath Respiratory: reports: Exercise Intolerance, SOB on Exertion Gastrointestinal: reports: Bloating, Constipation Genitourinary: reports: No Symptoms Breasts: reports: No Symptoms Reported Musculoskeletal: reports: Muscle Cramps, Muscle Weakness Integumentary: reports: No Symptoms Neurological: reports: Weakness Endocrine: reports: Unexplained Weight Gain Physical Exam Vital Signs: Vital Signs Temperature 98.6 F 01/19/20 20:54 Pulse Rate 81 01/19/20 20:54 Respiratory Rate 18 01/19/20 20:54 Blood Pressure 113/54 L 01/19/20 20:54 O2 Sat by Pulse Oximetry (%) 97 01/19/20 20:54 Constitutional: Yes: Anxious Eyes: Yes: EOM Intact HENT: Yes: Normocephalic Neck: Yes: Trachea Midline Cardiovascular: Yes: Tachycardia, Murmur Respiratory: Yes: Tachypnea Gastrointestinal: Yes: Normal Bowel Sounds ...Rectal Exam: Yes: Deferred Renal/: Yes: WNL Musculoskeletal: Yes: Back Pain, Muscle Pain, Muscle Weakness Extremities: Yes: Delayed Capillary Refill Edema: LLE: 1+, RLE: 1+ Neurological: Yes: Alert, Oriented Labs: CBC, BMP 01/16/20 11:30 01/19/20 10:40 Problem List - Problems (1) Controlled diabetes mellitus with diabetic peripheral angiopathy without gangrene Problems reviewed: Yes Code(s): E11.51 - TYPE 2 DIABETES W DIABETIC PERIPHERAL ANGIOPATH W/O GANGRENE (2) Acute on chronic systolic (congestive) heart failure Problems reviewed: Yes Code(s): I50.23 - ACUTE ON CHRONIC SYSTOLIC (CONGESTIVE) HEART FAILURE (3) Asthma exacerbation Code(s): J45.901 - UNSPECIFIED ASTHMA WITH (ACUTE) EXACERBATION Qualifiers: Asthma severity: unspecified severity Asthma persistence: unspecified Qualified Code(s): J45.901 - Unspecified asthma with (acute) exacerbation (4) Elevated troponin Code(s): R79.89 - OTHER SPECIFIED ABNORMAL FINDINGS OF BLOOD CHEMISTRY (5) Hypothyroidism Code(s): E03.9 - HYPOTHYROIDISM, UNSPECIFIED (6) MU (acute kidney injury) Code(s): N17.9 - ACUTE KIDNEY FAILURE, UNSPECIFIED (7) Acute on chronic renal failure Code(s): N17.9 - ACUTE KIDNEY FAILURE, UNSPECIFIED; N18.9 - CHRONIC KIDNEY DISEASE, UNSPECIFIED Assessment/Plan Current Active Problems T2DM ckd Acute on chronic systolic (congestive) heart failure (Acute) Asthma exacerbation (Acute) Elevated troponin (Acute) Hypothyroidism (Acute) Abnormal Lab Results 01/19/20 10:40 BUN 29.0 H Creatinine 1.4 H Random Glucose 418 H* Laboratory Results - last 24 hr 01/19/20 01/19/20 01/19/20 06:43 10:40 11:06 Sodium 136 Potassium 4.7 Chloride 101 Carbon Dioxide 23 Anion Gap 11 BUN 29.0 H Creatinine 1.4 H Est GFR (CKD-EPI)AfAm 47.55 Est GFR (CKD-EPI)NonAf 41.02 POC Glucometer 310 401 Random Glucose 418 H* Calcium 10.0 01/19/20 01/19/20 11:08 16:04 Sodium Potassium Chloride Carbon Dioxide Anion Gap BUN Creatinine Est GFR (CKD-EPI)AfAm Est GFR (CKD-EPI)NonAf POC Glucometer 386 224 Random Glucose Calcium plan; bgm achs novolog scale novolog 70/30 30 iu bid levemir 20 units am synthyroid 75mcg ck hba1c ck tsh free t4
[2020-01-19] MEDS: APIXABAN 5 MG TABLET PO SCH (23:13)
[2020-01-19] MEDS ORDERED: INSULIN (NOVOLOG) ASPART 100 UNITS/ML 10ML VIAL SQ STA (23:17)
--- NOTE | 2020-01-19 23:32 | PN ---
Progress Note, Physician History of Present Illness: SOB improved - Current Medication List Current Medications: Active Medications Albuterol Sulfate (Ventolin 0.083% Nebulizer Soln -) 1 amp NEB Q4H PRN PRN Reason: SHORT OF BREATH/WHEEZING Albuterol/Ipratropium (Duoneb -) 1 amp NEB RQID [facility] Last Admin: 01/19/20 20:04 Dose: 1 amp Apixaban (Eliquis -) 5 mg PO BID [facility] Last Admin: 01/19/20 23:13 Dose: 5 mg Aspirin (Ecotrin -) 81 mg PO DAILY [facility] Last Admin: 01/19/20 09:52 Dose: 81 mg Budesonide/Formoterol Fumarate (Symbicort 160/4.5mcg -) 2 puff IH BID [facility] Last Admin: 01/19/20 22:42 Dose: 2 puff Furosemide (Lasix -) 20 mg PO DAILY [facility] Insulin Aspart (Novolog Mix 70/30 Vial) 30 units SQ BIDAC [facility] Insulin Aspart (Novolog Vial Sliding Scale -) 1 vial SQ ACHS [facility]; Protocol Insulin Detemir (Levemir Vial) 20 units SQ AM [facility] Levothyroxine Sodium (Synthroid -) 75 mcg PO DAILY [facility] Last Admin: 01/19/20 09:52 Dose: 75 mcg Metoprolol Succinate (Toprol Xl -) 25 mg PO DAILY [facility] Last Admin: 01/19/20 09:52 Dose: 25 mg Montelukast Sodium (Singulair -) 10 mg PO HS [facility] Last Admin: 01/19/20 22:42 Dose: 10 mg Pantoprazole Sodium (Protonix -) 40 mg PO DAILY [facility] Last Admin: 01/19/20 09:52 Dose: 40 mg Potassium Chloride (K-Dur -) 10 meq PO DAILY [facility] Last Admin: 01/19/20 09:52 Dose: 10 meq Prednisone (Deltasone -) 60 mg PO DAILY [facility] Sacubitril/Valsartan (Entresto 24 Mg-26 Mg Tablet) 1 tab PO BID [facility] Last Admin: 01/19/20 22:43 Dose: 1 tab Spironolactone (Aldactone -) 25 mg PO DAILY [facility] Last Admin: 01/19/20 09:52 Dose: 25 mg - Objective Vital Signs: Vital Signs Temperature 98.6 F 01/19/20 20:54 Pulse Rate 81 01/19/20 20:54 Respiratory Rate 18 01/19/20 20:54 Blood Pressure 113/54 L 01/19/20 20:54 O2 Sat by Pulse Oximetry (%) 97 01/19/20 20:54 Neck: Yes: WNL, Supple Cardiovascular: Yes: Pulse Irregular Respiratory: Yes: Diminished Gastrointestinal: Yes: WNL, Normal Bowel Sounds, Soft, Abdomen, Obese Labs: CBC, BMP 01/16/20 11:30 01/19/20 10:40 Problem List - Problems (1) Acute on chronic systolic (congestive) heart failure Assessment/Plan: Cont entresto/spironolactone Pt now on po lasix DC planning Code(s): I50.23 - ACUTE ON CHRONIC SYSTOLIC (CONGESTIVE) HEART FAILURE (2) Asthma exacerbation Assessment/Plan: Cont PO prednisone DC planning for am Cont nebulizers Code(s): J45.901 - UNSPECIFIED ASTHMA WITH (ACUTE) EXACERBATION Qualifiers: Asthma severity: unspecified severity Asthma persistence: unspecified Qualified Code(s): J45.901 - Unspecified asthma with (acute) exacerbation (3) Elevated troponin Assessment/Plan: Due to demand ischemia Code(s): R79.89 - OTHER SPECIFIED ABNORMAL FINDINGS OF BLOOD CHEMISTRY (4) CAD (coronary artery disease) Code(s): I25.10 - ATHSCL HEART DISEASE OF [place] CORONARY ARTERY W/O ANG PCTRS (5) Diabetes Assessment/Plan: Cont levemir Cont sliding scale endo consult noted Glucose elevated due to steroids Code(s): E11.9 - TYPE 2 DIABETES MELLITUS WITHOUT COMPLICATIONS Qualifiers: Diabetes mellitus type: type 2 (6) Hyperlipidemia Code(s): E78.5 - HYPERLIPIDEMIA, UNSPECIFIED (7) Hypertension Code(s): I10 - ESSENTIAL (PRIMARY) HYPERTENSION Qualifiers: Hypertension type: essential hypertension Qualified Code(s): I10 - Essential (primary) hypertension (8) Hypothyroidism Code(s): E03.9 - HYPOTHYROIDISM, UNSPECIFIED (9) Cardiomyopathy Code(s): I42.9 - CARDIOMYOPATHY, UNSPECIFIED (10) Morbid obesity Code(s): E66.01 - MORBID (SEVERE) OBESITY DUE TO EXCESS CALORIES (11) ICD (implantable cardioverter-defibrillator) in place Code(s): Z95.810 - PRESENCE OF AUTOMATIC (IMPLANTABLE) CARDIAC DEFIBRILLATOR (12) Hypothyroidism Code(s): E03.9 - HYPOTHYROIDISM, UNSPECIFIED
[2020-01-20] MEDS: INSULIN SLIDING SCALE (NOVOLOG) 1 VIAL SQ SCH ×2 (06:36→11:13)
[2020-01-20] MEDS ORDERED: INSULIN (NOVOLOG MIX 70/30) 100 UNITS/ML MDV SQ SCH (07:00)
[2020-01-20] MEDS ORDERED: INSULIN (LEVEMIR) 100 UNITS/ML UNITS SQ SCH (07:00)
[2020-01-20] MEDS ORDERED: PT OWN MED DRAWER 7, Y5N ONE (08:26)
[2020-01-20] MEDS: SPIRONOLACTONE 25 MG TABLET (FP) PO SCH (09:01)
[2020-01-20] MEDS: SACUBITRIL/VALSARTAN 24 MG-26 MG TABLET PO SCH (09:01)
[2020-01-20] MEDS: APIXABAN 5 MG TABLET PO SCH (09:01)
[2020-01-20] MEDS: metoPROLOL SUCCINATE 25 MG TAB.SR.24H (FP) PO SCH (09:02)
[2020-01-20] MEDS: BUDESONIDE/FORMETEROL FUMARATE 160/4.5 mcg INHALER IH SCH (09:02)
[2020-01-20] MEDS: PANTOPRAZOLE 40 MG TABLET PO SCH (09:02)
[2020-01-20] MEDS: ASPIRIN COATED 81 MG TABLET.EC PO SCH (09:02)
[2020-01-20] MEDS: LEVOTHYROXINE NA 75 MCG TABLET (FP) PO SCH (09:02)
[2020-01-20] MEDS: POTASSIUM CHLORIDE TABS 10 MEQ TABLET.ER (FP) PO SCH (09:02)
[2020-01-20] MEDS: ALBUTEROL SO4 2.5/IPRATROPIUM 0.5 INH SOL 3 ML VIAL.NEB. NEB SCH ×3 (09:40→16:54)
[2020-01-20] MEDS ORDERED: predniSONE 20 MG TABLET (UD) PO SCH (10:00)
[2020-01-20] MEDS ORDERED: FUROSEMIDE 20 MG TABLET (FP) PO SCH (10:00)
--- NOTE | 2020-01-20 11:01 | PN ---
Progress Note (short form) - Note Progress Note: s: swelling, sob resolved. no chest pain,palps, dizziness Current Medications Generic Name Dose Route Start Last Admin Trade Name Freq PRN Reason Stop Dose Admin Albuterol Sulfate 1 amp 01/16/20 13:16 Ventolin 0.083% Nebulizer Soln - NEB Q4H PRN SHORT OF BREATH/WHEEZING Albuterol/Ipratropium 1 amp 01/16/20 16:00 01/20/20 09:40 Duoneb - NEB 1 amp RQID DOM Administration Apixaban 5 mg 01/19/20 22:45 01/20/20 09:01 Eliquis - PO 5 mg BID DOM Administration Aspirin 81 mg 01/16/20 10:00 01/20/20 09:02 Ecotrin - PO 81 mg DAILY DOM Administration Budesonide/Formoterol Fumarate 2 puff 01/15/20 22:00 01/20/20 09:02 Symbicort 160/4.5mcg - IH 2 puff BID DOM Administration Furosemide 20 mg 01/20/20 10:00 01/20/20 09:02 Lasix - PO 20 mg DAILY DOM Administration Insulin Aspart 30 units 01/20/20 07:00 01/20/20 06:37 Novolog Mix 70/30 Vial SQ 30 unit BIDAC DOM Administration Insulin Aspart 1 vial 01/19/20 22:49 01/20/20 06:36 Novolog Vial Sliding Scale - SQ 9 unit ACHS DOM Administration Protocol Insulin Detemir 20 units 01/20/20 07:00 01/20/20 06:37 Levemir Vial SQ 20 unit AM DOM Administration Levothyroxine Sodium 75 mcg 01/16/20 10:00 01/20/20 09:02 Synthroid - PO 75 mcg DAILY DOM Administration Metoprolol Succinate 25 mg 01/16/20 10:00 01/20/20 09:02 Toprol Xl - PO 25 mg DAILY DOM Administration Montelukast Sodium 10 mg 01/16/20 22:00 01/19/20 22:42 Singulair - PO 10 mg HS DOM Administration Pantoprazole Sodium 40 mg 01/16/20 10:00 01/20/20 09:02 Protonix - PO 40 mg DAILY DOM Administration Potassium Chloride 10 meq 01/16/20 10:00 01/20/20 09:02 K-Dur - PO 10 meq DAILY DOM Administration Prednisone 60 mg 01/20/20 10:00 01/20/20 09:01 Deltasone - PO 60 mg DAILY DOM Administration Sacubitril/Valsartan 1 tab 01/15/20 22:00 01/20/20 09:01 Entresto 24 Mg-26 Mg Tablet PO 1 tab BID DOM Administration Spironolactone 25 mg 01/16/20 10:00 01/20/20 09:01 Aldactone - PO 25 mg DAILY DOM Administration Vital Signs Period Temp Pulse Resp BP Sys/Mcgrath Pulse Ox Last 24 Hr 97.4 F-98.6 F 81-89 16-18 109-144/54-79 96-97 Constitutional: Yes: Well Nourished, No Distress, Obese Eyes: No: Sclera Icterus HENT: No: Nasal Congestion Neck: No: Decreased ROM Respiratory: Yes: CTA Bilaterally. No: Accessory Muscle Use, Rales, Wheezes Gastrointestinal: Yes: Normal Bowel Sounds. No: Distention, Hepatomegaly, Palpable Mass, Tenderness Cardiovascular: Yes: Regular Rate and Rhythm JVD: No Heart Sounds: Yes: S1, S2. No: Gallop Murmur: No: Systolic Murmur, Diastolic Murmur Musculoskeletal: Yes: Other (No kyphosis) Extremities: No: Cool, Cyanosis Edema: no Integumentary: No: Jaundice Neurological: Yes: Alert, Oriented (x3) CBC, BMP 01/16/20 11:30 01/19/20 10:40 Assessment/Plan Cardiac Catheterization 2019 non-obstructive CAD echo 05/2019 tds, mildly dilated LV, severe global hypok, RV nl CXR: clear lungs/pleura EKG: sinus, LBBB tele: sinus shortness of breath - may be multifactorial - recent wt gain of 6 lbs, elevated BNP compared to prior and swelling suggest component of CHF exac - edema improved with IV lasix - changed to PO lasix - manage asthma/COPD per pulm acute chronic systolic HF, 2/2 cardiomyopathy, s/p ICD - recent RHC/LHC at [facility] reportedly no significant findings - cont entresto, spironolactone, metoprolol = home regimen - resumed home PO lasix 20 mg daily - outpatient ICD monitoring elevated trop - indeterminate range, flat trend - similar to prior values, EKG similar to prior - no signs of ACS copd/asthma: - manage per pulm HTN: - bp controlled - same meds paroxysmal afib - in sinus --cont home bb - cont home eliquis for AC (5 bid) HLD - cont statin cardiac mendez stable
--- NOTE | 2020-01-20 11:07 | PN ---
Progress Note, Physician History of Present Illness: pulmonary alert,comfortable,sob improved,-cough,-cp - Current Medication List Current Medications: Active Medications Albuterol Sulfate (Ventolin 0.083% Nebulizer Soln -) 1 amp NEB Q4H PRN PRN Reason: SHORT OF BREATH/WHEEZING Albuterol/Ipratropium (Duoneb -) 1 amp NEB RQID [facility] Last Admin: 01/20/20 09:40 Dose: 1 amp Apixaban (Eliquis -) 5 mg PO BID [facility] Last Admin: 01/20/20 09:01 Dose: 5 mg Aspirin (Ecotrin -) 81 mg PO DAILY [facility] Last Admin: 01/20/20 09:02 Dose: 81 mg Budesonide/Formoterol Fumarate (Symbicort 160/4.5mcg -) 2 puff IH BID [facility] Last Admin: 01/20/20 09:02 Dose: 2 puff Furosemide (Lasix -) 20 mg PO DAILY [facility] Last Admin: 01/20/20 09:02 Dose: 20 mg Insulin Aspart (Novolog Mix 70/30 Vial) 30 units SQ BIDAC [facility] Last Admin: 01/20/20 06:37 Dose: 30 unit Insulin Aspart (Novolog Vial Sliding Scale -) 1 vial SQ ACHS [facility]; Protocol Last Admin: 01/20/20 06:36 Dose: 9 unit Insulin Detemir (Levemir Vial) 20 units SQ AM [facility] Last Admin: 01/20/20 06:37 Dose: 20 unit Levothyroxine Sodium (Synthroid -) 75 mcg PO DAILY [facility] Last Admin: 01/20/20 09:02 Dose: 75 mcg Metoprolol Succinate (Toprol Xl -) 25 mg PO DAILY [facility] Last Admin: 01/20/20 09:02 Dose: 25 mg Montelukast Sodium (Singulair -) 10 mg PO HS [facility] Last Admin: 01/19/20 22:42 Dose: 10 mg Pantoprazole Sodium (Protonix -) 40 mg PO DAILY [facility] Last Admin: 01/20/20 09:02 Dose: 40 mg Potassium Chloride (K-Dur -) 10 meq PO DAILY [facility] Last Admin: 01/20/20 09:02 Dose: 10 meq Prednisone (Deltasone -) 60 mg PO DAILY [facility] Last Admin: 01/20/20 09:01 Dose: 60 mg Sacubitril/Valsartan (Entresto 24 Mg-26 Mg Tablet) 1 tab PO BID [facility] Last Admin: 01/20/20 09:01 Dose: 1 tab Spironolactone (Aldactone -) 25 mg PO DAILY [facility] Last Admin: 01/20/20 09:01 Dose: 25 mg - Objective Vital Signs: Vital Signs Temperature 97.9 F 01/20/20 10:00 Pulse Rate 85 01/20/20 10:00 Respiratory Rate 18 01/20/20 10:00 Blood Pressure 139/65 01/20/20 10:00 O2 Sat by Pulse Oximetry (%) 97 01/19/20 20:54 Constitutional: Yes: Well Nourished, Calm Eyes: Yes: WNL HENT: Yes: WNL Neck: Yes: WNL Cardiovascular: Yes: Regular Rate and Rhythm, S1, S2 Respiratory: Yes: CTA Bilaterally Gastrointestinal: Yes: Normal Bowel Sounds, Soft Extremities: Yes: WNL Edema: No Labs: CBC, BMP 01/16/20 11:30 01/19/20 10:40 Assessment/Plan Problem List - Problems (1) Asthma exacerbation Code(s): J45.901 - UNSPECIFIED ASTHMA WITH (ACUTE) EXACERBATION Qualifiers: Asthma severity: unspecified severity Asthma persistence: unspecified Qualified Code(s): J45.901 - Unspecified asthma with (acute) exacerbation (2) Bronchitis Code(s): J40 - BRONCHITIS, NOT SPECIFIED ACUTE OR CHRONIC (3) CAD (coronary artery disease) Code(s): I25.10 - ATHSCL HEART DISEASE OF [place] CORONARY ARTERY W/O ANG PCTRS (4) Chronic systolic CHF (congestive heart failure), NYHA class 3 Code(s): I50.22 - CHRONIC SYSTOLIC (CONGESTIVE) HEART FAILURE (5) Diabetes Code(s): E11.9 - TYPE 2 DIABETES MELLITUS WITHOUT COMPLICATIONS Qualifiers: Diabetes mellitus type: type 2 (6) Dyspnea Code(s): R06.00 - DYSPNEA, UNSPECIFIED (7) Hyperlipidemia Code(s): E78.5 - HYPERLIPIDEMIA, UNSPECIFIED (8) Hypertension Code(s): I10 - ESSENTIAL (PRIMARY) HYPERTENSION Qualifiers: Hypertension type: essential hypertension Qualified Code(s): I10 - Essential (primary) hypertension (9) Hypothyroidism Code(s): E03.9 - HYPOTHYROIDISM, UNSPECIFIED (10) ICD (implantable cardioverter-defibrillator) in place Code(s): Z95.810 - PRESENCE OF AUTOMATIC (IMPLANTABLE) CARDIAC DEFIBRILLATOR (11) Morbid obesity Code(s): E66.01 - MORBID (SEVERE) OBESITY DUE TO EXCESS CALORIES (12) Paroxysmal A-fib Code(s): I48.0 - PAROXYSMAL ATRIAL FIBRILLATION (13) Sleep apnea Code(s): G47.30 - SLEEP APNEA, UNSPECIFIED Assessment/Plan PLAN: prednisone BD TX standing and PRN Singulair AVAPS use QHS and PRN Supplemental O2 as needed Eliquis No smoking was counseled Glycemic control while on systemic steroids Dr Lee Problem List - Problems (1) Asthma exacerbation Code(s): J45.901 - UNSPECIFIED ASTHMA WITH (ACUTE) EXACERBATION Qualifiers: Asthma severity: unspecified severity Asthma persistence: unspecified Qualified Code(s): J45.901 - Unspecified asthma with (acute) exacerbation (2) Bronchitis Code(s): J40 - BRONCHITIS, NOT SPECIFIED ACUTE OR CHRONIC (3) CAD (coronary artery disease) Code(s): I25.10 - ATHSCL HEART DISEASE OF [place] CORONARY ARTERY W/O ANG PCTRS (4) Chronic systolic CHF (congestive heart failure), NYHA class 3 Code(s): I50.22 - CHRONIC SYSTOLIC (CONGESTIVE) HEART FAILURE (5) Diabetes Code(s): E11.9 - TYPE 2 DIABETES MELLITUS WITHOUT COMPLICATIONS Qualifiers: Diabetes mellitus type: type 2 (6) Dyspnea Code(s): R06.00 - DYSPNEA, UNSPECIFIED (7) Hyperlipidemia Code(s): E78.5 - HYPERLIPIDEMIA, UNSPECIFIED (8) Hypertension Code(s): I10 - ESSENTIAL (PRIMARY) HYPERTENSION Qualifiers: Hypertension type: essential hypertension Qualified Code(s): I10 - Essential (primary) hypertension (9) Hypothyroidism Code(s): E03.9 - HYPOTHYROIDISM, UNSPECIFIED (10) ICD (implantable cardioverter-defibrillator) in place Code(s): Z95.810 - PRESENCE OF AUTOMATIC (IMPLANTABLE) CARDIAC DEFIBRILLATOR (11) Morbid obesity Code(s): E66.01 - MORBID (SEVERE) OBESITY DUE TO EXCESS CALORIES (12) Paroxysmal A-fib Code(s): I48.0 - PAROXYSMAL ATRIAL FIBRILLATION (13) Sleep apnea Code(s): G47.30 - SLEEP APNEA, UNSPECIFIED
[2020-01-20 14:51] VITALS: PULSE 89; TEMP 98.1
[2020-01-20 16:07] VITALS: BP 124/88
== END 2020-01-20 17:55 | disposition home or self-care (01) | DRG 314 ==
LOC: JER 12:05 → JERBED 15:07 → J4S 01-16 22:59
PROVIDERS: ADMIT Internal Medicine; ATTEND Internal Medicine
DX: I42.8 Other cardiomyopathies (principal); I50.23 Acute on chronic systolic (congestive) heart failure; J45.901 Unspecified asthma with (acute) exacerbation; Z68.41 Body mass index [BMI] 40.0-44.9, adult; I24.8 Other forms of acute ischemic heart disease; I11.0 Hypertensive heart disease with heart failure; E11.65 Type 2 diabetes mellitus with hyperglycemia; E03.9 Hypothyroidism, unspecified; Z95.810 Presence of automatic (implantable) cardiac defibrillator; E66.01 Morbid (severe) obesity due to excess calories; I48.0 Paroxysmal atrial fibrillation; G47.30 Sleep apnea, unspecified; I25.10 Atherosclerotic heart disease of native coronary artery without angina pectoris; E78.5 Hyperlipidemia, unspecified
CPT/HCPCS: 36415; 71046-TC-FY; 80048; 80053; 81003; 82550; 82553; 82962; 83036; 83735; 83880; 84100; 84439; 84443; 84484; 85025; 87086; 87804; 93005; 93010; 94640; 99285-25

== ENCOUNTER 2020-05-23 19:09 | Inpatient (IN) | payer OTHER ==
--- NOTE | 2020-05-23 19:18 | PDOC ---
Rapid Medical Evaluation Chief Complaint: Shortness of Breath Time Seen by Provider: 05/23/20 19:13 Medical Evaluation: Allergies Allergy/AdvReac Type Severity Reaction Status Date / Time tomato Allergy Mild Hives Verified 03/03/20 23:49 chlorpheniramine Allergy Verified 03/03/20 23:49 cimetidine Allergy Verified 03/03/20 23:49 codeine [Codeine] Allergy Verified 03/03/20 23:49 ibuprofen Allergy Verified 03/03/20 23:49 latex [Latex] Allergy Verified 03/03/20 23:49 Latex, Natural Rubber Allergy Verified 03/03/20 23:49 pseudoephedrine Allergy Verified 03/03/20 23:49 salmeterol xinafoate Allergy Verified 03/03/20 23:49 [From Advair Diskus] shellfish derived Allergy Verified 03/03/20 23:49 Sulfa (Sulfonamide Allergy Verified 03/03/20 23:49 Antibiotics) [Sulfa(Sulfonamide Antibiotics)] Chocolate Allergy Mild Hives Uncoded 03/03/20 23:49 shrimp Allergy Mild Hives Uncoded 03/03/20 23:49 05/23/20 19:15 60 year old female with history of CHF, asthma c/o shortness of breath since yesterday. patient has using albuterol nebulizer with no symptoms relief. patient Last Vital Signs Temp Pulse Resp BP Pulse Ox 98.1 F 102 H 18 120/84 98 05/23/20 19:20 05/23/20 19:20 05/23/20 19:20 05/23/20 19:20 05/23/20 19:20 PE: patient alert ox3. labored breathing. no wheezing on exam A: chf exacerbation? P: labs chest xray ekg 05/23/20 19:47 Discharge Disposition - Diagnosis Shortness of breath at rest - Referrals Referrals: Reece Lanza MD [Primary Care Provider] - - Patient Instructions - Post Discharge Activity
[2020-05-23 19:29] VITALS: BMI 38.7
--- NOTE | 2020-05-23 19:57 | PDOC ---
History of Present Illness - General Chief Complaint: Shortness of Breath Stated Complaint: ASTHMA/SOB/CHEST TIGHTNESS Time Seen by Provider: 05/23/20 19:13 History Source: Patient Exam Limitations: No Limitations - History of Present Illness Initial Comments: 05/23/20 20:05 60 yo F with a hx nonischemic Cardiomyopathy (s/p pacemaker), CHF ( EF 20-25%), COPD/Asthma, Afib (eliquis),HTN, DM,CKD (cr 1-1.3), HLD, CAD, hypothyroidism presents to the emergency department with SOB and chest pain. Per the patient, she had chest pain that occurred yesterday that was ongoing for 20 minutes with ARNOLD. It resolved on its own. Currently, she is having pain in the epigastric region that is sharp. Her chest pain was consistent with her previous UT in the past (Dec 2019). The patient states she has been SOB since yesterday. The patient used 3x nebulizer treatments today without improvement. Denies lower leg swelling. Per the patient, she endorses having a fever yesterday that resolved today. Denies the following: vomiting, back pain, dysuria, hematuria, diarrhea, hematochezia, headache, visual disturbances, ears/nose/throat pain, and neck pain. Endorses taking albuterol. Past History - Medical History Allergies/Adverse Reactions: Allergies Allergy/AdvReac Type Severity Reaction Status Date / Time tomato Allergy Mild Hives Verified 05/23/20 19:23 chlorpheniramine Allergy Verified 05/23/20 19:23 cimetidine Allergy Verified 05/23/20 19:23 codeine [Codeine] Allergy Verified 05/23/20 19:23 ibuprofen Allergy Verified 05/23/20 19:23 latex [Latex] Allergy Verified 05/23/20 19:23 Latex, Natural Rubber Allergy Verified 05/23/20 19:23 pseudoephedrine Allergy Verified 05/23/20 19:23 salmeterol xinafoate Allergy Verified 05/23/20 19:23 [From Advair Diskus] shellfish derived Allergy Verified 05/23/20 19:23 Sulfa (Sulfonamide Allergy Verified 03/03/20 23:49 Antibiotics) [Sulfa(Sulfonamide Antibiotics)] Chocolate Allergy Mild Hives Uncoded 03/03/20 23:49 shrimp Allergy Mild Hives Uncoded 03/03/20 23:49 Home Medications: Ambulatory Orders Insulin Glargine,Hum.rec.anlog [Lantus Solostar PEN -] 20 units SQ AM 08/09/16 Budesonide/Formeterol Fumarate [SYMBICORT 160/4.5mcg -] 2 puff PO BID 10/14/16 Albuterol 2.5/Ipratropium 0.5 [Duoneb -] 1 amp NEB Q6H PRN #90 amp 05/21/19 Levothyroxine [Synthroid -] 75 mcg PO DAILY #30 tablet 05/21/19 Insulin Glargine,Hum.rec.anlog [Lantus Solostar PEN -] 10 units SQ HS 08/13/19 Metoprolol Succinate [Toprol XL -] 25 mg PO DAILY 10/10/19 Apixaban [Eliquis -] 5 mg PO BID 11/02/19 Linaclotide [Linzess] 290 mcg PO DAILY 11/02/19 Sacubitril/Valsartan [Entresto 24 mg-26 mg Tablet] 1 each PO ASDIR 11/02/19 Furosemide [Lasix -] 20 mg PO DAILY #30 tablet 11/06/19 Albuterol 0.083% Nebulizer Jyothi [Ventolin 0.083% Nebulizer Soln -] 1 amp NEB Q4H PRN amp 12/13/19 Spironolactone [Aldactone -] 25 mg PO DAILY tablet 12/13/19 Aspirin Coated [Ecotrin -] 81 mg PO DAILY #30 tablet.ec 12/27/19 Potassium Chloride 10 meq PO DAILY 01/15/20 Pregabalin [Lyrica -] 25 mg PO BID 01/15/20 Tiotropium [place] [Spiriva Respimat] 2 puff IH DAILY #1 mist.inhal 01/15/20 Albuterol 0.083% Nebulizer Jyothi [Ventolin 0.083% Nebulizer Soln -] 1 amp NEB Q4H PRN #0 amp 01/20/20 Furosemide [Lasix -] 20 mg PO DAILY #30 tablet 01/20/20 Montelukast Na [Singulair -] 10 mg PO HS #30 tablet 01/20/20 Pantoprazole Sodium [Protonix -] 40 mg PO DAILY #30 tablet.ec 01/20/20 Potassium Chloride [K-Dur -] 10 meq PO DAILY #30 tablet.er 01/20/20 Furosemide [Lasix -] 20 mg PO DAILY tablet 02/23/20 Ondansetron [Zofran *Odt*] 4 mg SL TID PRN #10 od.tablet 03/04/20 Furosemide [Lasix -] 20 mg PO DAILY tablet 05/28/20 Sacubitril/Valsartan [Entresto 24 mg-26 mg Tablet] 1 tab PO BID #60 tablet 05/28/20 Anemia: Yes Asthma: Yes Cancer: No Cardiac Disorders: Yes (UT X 2, pacemaker) CVA: No COPD: Yes CHF: Yes (S/P ICD) DVT: No Dementia: No Diabetes: Yes GI Disorders: Yes (PEPTIC ULCER) Disorders: No HTN: Yes Hypercholesterolemia: Yes Liver Disease: No Psychiatric Problems: Yes (DEPRESSION) Seizures: No Thyroid Disease: Yes - Surgical History Abdominal Surgery: Yes Appendectomy: No Cardiac Surgery: Yes (pacemaker and stents) Cholecystectomy: Yes GI Surgery: Yes (CHOLECYSTECTOMY, HYSTERECTOMY) Lung Surgery: No Neurologic Surgery: No Orthopedic Surgery: Yes (bilateral knee replacement) - Immunization History Immunization Up to Date: No - Psycho-Social/Smoking History Smoking Status: No Smoking History: Never smoked Have you smoked in the past 12 months: No Number of Cigarettes Smoked Daily: 0 Review of Systems - Review of Systems Able to Perform ROS?: Yes Is the patient limited Bulgarian proficient: No Constitutional: No: Chills, Diaphoresis, Fever, Weakness HEENTM: No: Eye Pain, Ear Pain, Nose Pain, Throat Pain Respiratory: Yes: Cough, Shortness of Breath Cardiac (ROS): Yes: Chest Pain. No: Lightheadedness ABD/GI: No: Constipated, Diarrhea, Nausea, Rectal Bleeding, Vomiting, Tarry Stools : No: Burning, Hematuria Musculoskeletal: No: Back Pain, Joint Pain, Neck Pain Integumentary: No: Bruising, Rash Neurological: No: Headache Psychiatric: No: Change in Appetite Endocrine: No: Unexplained Weight Loss *Physical Exam - Vital Signs Last Vital Signs Temp Pulse Resp BP Pulse Ox 98.1 F 102 H 18 120/84 98 05/23/20 19:20 05/23/20 19:20 05/23/20 19:20 05/23/20 19:20 05/23/20 19:20 - Physical Exam General Appearance: Yes: Nourished, Appropriately Dressed. No: Apparent Distress, Intoxicated HEENT: positive: EOMI, ZAC, Normal Voice, Symmetrical, Pharynx Normal, Hearing Grossly Normal. negative: Pale Conjunctivae, Scleral Icterus (R), Scleral Icterus (L), Muffled/Hoarse voice, Pharyngeal Erythema, Tonsillar Exudate, Tonsillar Erythema, Nasal Congestion, Rhinorrhea, Sinus Tenderness, Excessive drooling Neck: positive: Trachea midline, Supple. negative: Tender, Lymphadenopathy (R), Lymphadenopathy (L), Tender lateral, Tender midline Respiratory/Chest: positive: Respiratory Distress, Decreased Breath Sounds (bases bilaterally), Crackles (right base). negative: Chest Tender, Accessory Muscle Use Cardiovascular: positive: Regular Rhythm, Regular Rate, S1, S2, Systolic Murmur (grade 1 systolic murmur) Gastrointestinal/Abdominal: positive: Normal Bowel Sounds, Flat, Soft. negative: Tender Lymphatic: negative: Adenopathy Musculoskeletal: positive: Normal Inspection. negative: CVA Tenderness, Vertebral Tenderness Extremity: positive: Normal Capillary Refill. negative: Normal Inspection (1+ pitting edema bilaterally) Integumentary: positive: Normal Color, Dry, Warm Neurologic: positive: Fully Oriented, Alert, Normal Mood/Affect ED Treatment Course - LABORATORY CBC & Chemistry Diagram: 05/26/20 06:56 05/28/20 05:43 - RADIOLOGY Radiology Studies Ordered: Category Date Time Status CXRPORT [CHEST X-RAY PORTABLE*] [RAD] Stat Radiology 05/23/20 19:32 Ordered Medical Decision Making - Medical Decision Making 05/23/20 22:39 60 yo F with a hx nonischemic Cardiomyopathy (s/p pacemaker), CHF ( EF 20-25%), COPD/Asthma, Afib (eliquis),HTN, DM,CKD (cr 1-1.3), HLD, CAD, hypothyroidism presents to the emergency department with SOB and chest pain. Initial vitals: Initial Vital Signs Temp Pulse Resp BP Pulse Ox 98.1 F 102 H 18 120/84 98 05/23/20 19:20 05/23/20 19:20 05/23/20 19:20 05/23/20 19:20 05/23/20 19:20 Work up: patient presents to the emergency department with SOB and chest pain ddx: CHF exacerbation vs COPD exacerbation vs ACS vs pleural effusions vs PNA vs pleuritis vs percarditis Laboratory Tests 05/23/20 05/23/20 05/23/20 20:58 20:58 20:58 WBC 10.6 H RBC 4.30 Hgb 10.9 Hct 35.1 MCV 81.7 MCH 25.3 L MCHC 30.9 L RDW 18.7 H Plt Count 320 MPV 10.3 Absolute Neuts (auto) 8.0 Neutrophils % 75.9 Lymphocytes % 16.8 Monocytes % 5.9 Eosinophils % 0.5 D Basophils % 0.9 Nucleated RBC % 0 PT with INR 19.60 H INR 1.65 H PTT (Actin FS) 37.9 H Sodium 139 Potassium 3.8 Chloride 104 Carbon Dioxide 25 Anion Gap 10 BUN 12.6 Creatinine 1.3 Est GFR (CKD-EPI)AfAm 51.64 Est GFR (CKD-EPI)NonAf 44.55 Random Glucose 229 H Calcium 9.2 Magnesium 1.7 L Total Bilirubin 0.7 AST 12 L ALT 14 Alkaline Phosphatase 104 Creatine Kinase 229 H Creatine Kinase Index 0.6 CK-MB (CK-2) 1.5 Troponin I 0.14 H B-Natriuretic Peptide Total Protein 7.3 Albumin 3.6 Lipase COVID-19 ([facility]) 05/23/20 05/23/20 20:58 21:03 WBC RBC Hgb Hct MCV MCH MCHC RDW Plt Count MPV Absolute Neuts (auto) Neutrophils % Lymphocytes % Monocytes % Eosinophils % Basophils % Nucleated RBC % PT with INR INR PTT (Actin FS) Sodium Potassium Chloride Carbon Dioxide Anion Gap BUN Creatinine Est GFR (CKD-EPI)AfAm Est GFR (CKD-EPI)NonAf Random Glucose Calcium Magnesium Total Bilirubin AST ALT Alkaline Phosphatase Creatine Kinase Creatine Kinase Index CK-MB (CK-2) Troponin I B-Natriuretic Peptide 5110.4 H Total Protein Albumin Lipase 89 COVID-19 ([facility]) Not detected BNP elevated and troponin elevated. POCUS shows EF 5-10%, b lines in the right lung base, and no pericardial effusion. IVC >50% collapsibility Likely the patient is having a mixture disturbance of CHF and COPD exacerbation, however likely more dominant of COPD exacerbation Patient given albuterol inhaler and methylprednisolone. Per Dr. Lanza, the patient to be admitted to Dr. Lewis's service. Patient was placed on bipap with immediate improvement. Patient to be admitted for CHF and COPD exacerbation with elevated troponin likely secondary to demand ischemia. Patient EKG shows NSR without PVCs without ST elevations or depresisons. Discharge - Discharge Information Problems reviewed: Yes Clinical Impression/Diagnosis: Shortness of breath at rest - Follow up/Referral - Patient Discharge Instructions - Post Discharge Activity
[2020-05-23] MEDS ORDERED: methylPREDNISolone NA SUCC 125 MG/2 ML VIAL IVPB ONE (20:01)
[2020-05-23] MEDS ORDERED: ALBUTEROL SO4 HFA INHALER IH ONE ×2 (20:01→20:12)
[2020-05-23] MEDS ORDERED: methylPREDNISolone NA SUCC 125 MG/2 ML VIAL ONE (20:12)
--- NOTE | 2020-05-23 20:51 | PDOC ---
Documentation entered by Bridgette Martinez SCRIBE, acting as scribe for Letty Richards MD. Letty Richards MD: This documentation has been prepared by the Juan siegel Brenda, SCRIBE, under my direction and personally reviewed by me in its entirety. I confirm that the documentation accurately reflects all work, treatment, procedures, and medical decision making performed by me. Attending Attestation - Resident Resident Name: Chris Vieyra - ED Attending Attestation I have performed the following: I have examined & evaluated the patient, The case was reviewed & discussed with the resident, I agree w/resident's findings & plan, Exceptions are as noted - HPI HPI: 05/23/20 19:46 The patient is a 60 year old female with a significant PMH of CHF and asthma who presents to the ED for evaluation of shortness of breath and chest pain. Patient notes that her chest pain occurred yesterday lasting 20 minutes on her left chest wall, which she notes felt like her [place] in 12/2019. As per her shortness of breath, the patient notes that it also began yesterday and she has intervened with 3 albuterol treatments and nebs to no relief. Patient reports being intubated in the past. She is currently complaining of epigastric pain today. The patient denies headache and dizziness. Denies fever, chills, nausea, vomiting, diarrhea and constipation. Denies dysuria, frequency, urgency and hematuria. PCP: Reece Lanza - Physicial Exam PE: 05/23/20 20:51 Presents with complaints of chest pain and shortness of breath. Past medical history significant for pacemaker, coronary artery disease, ejection fraction decreased to 20 - 25%, COPD, chronic kidney disease and she reports having an MRI December 2021 took 3 nebulizer treatments without improvement of her shortness of breath 05/23/20 20:52 60-year-old obese female with complaint of chest pain Head normocephalic atraumatic Neck is supple, no JVD cvs [id number] Lungs no rales or crackles appreciated Abdomen is protuberant, nontender Skin -warm and dry Lower extremities- no edema Neuro - axox3 05/23/20 21:26 05/23/20 21:34 - Medical Decision Making 05/23/20 21:[address] Reece Lanza and he requested patient be admitted by Dr. Lewis to telemetry 05/23/20 21:36 obese female with chest pain and shortness of breath, on bipap ,feeling better at this time 05/23/20 21:47 05/23/20 22:10 first troponin is elevated at 0.14 bnp>5000 05/23/20 22:19 Discharge - Discharge Information Problems reviewed: Yes Clinical Impression/Diagnosis: Shortness of breath at rest - Follow up/Referral - Patient Discharge Instructions - Post Discharge Activity
[2020-05-23 21:30] LABS: BASO % 0.9 % (0-2.0); EOS % 0.5 % (0-4.5); HEMATOCRIT 35.1 % (32.4-45.2); HEMOGLOBIN 10.9 GM/dL (10.7-15.3); LYMPH % 16.8 % (8-40); MCH 25.3 pg (25.7-33.7); MCHC 30.9 g/dl (32.0-36.0); MEAN CELL VOLUME 81.7 fl (80-96); MEAN PLT VOLUME 10.3 fl (7.5-11.1); MONO % 5.9 % (3.8-10.2); NEUT % 75.9 % (42.8-82.8); PLATELET COUNT 320 K/MM3 (134-434); RDW 18.7 % (11.6-15.6); WHITE BLOOD COUNT 10.6 K/mm3 (4.0-10.0)
[2020-05-23 21:38] LABS: INR 1.65 (0.83-1.09); PROTHROMBIN TIME (PATIENT) 19.6 SEC (9.7-13.0)
[2020-05-23] MEDS ORDERED: ASPIRIN 81 MG CHEWABLE TABLETS PO ONE (21:40)
[2020-05-23 21:41] LABS: ACTIVATED PTT 37.9 SECONDS (25.2-36.5)
[2020-05-23 21:59] LABS: ALBUMIN 3.6 g/dl (3.4-5.0); BILIRUBIN,TOTAL 0.7 mg/dL (0.2-1); BLOOD UREA NITROGEN 12.6 mg/dL (7-18); CALCIUM 9.2 mg/dL (8.5-10.1); CREATININE 1.3 mg/dL (0.55-1.3); MAGNESIUM 1.7 mg/dL (1.8-2.4); POTASSIUM 3.8 mmol/L (3.5-5.1); TOT PROT 7.3 g/dl (6.4-8.2)
[2020-05-23] MEDS ORDERED: ASPIRIN 81 MG CHEWABLE TABLETS ONE (22:00)
[2020-05-23 22:05] LABS: N-TERMINAL BNP 5110.4 pg/ml (5-125)
[2020-05-23] MEDS ORDERED: SACUBITRIL/VALSARTAN 24 MG-26 MG TABLET PO SCH (23:45)
[2020-05-23] MEDS ORDERED: ALBUTEROL SO4 2.5/IPRATROPIUM 0.5 INH SOL 3 ML VIAL.NEB. NEB PRN (23:59)
[2020-05-24] MEDS ORDERED: methylPREDNISolone NA SUCC 40 MG/1 ML VIAL ONE ×2 (02:04→09:11)
[2020-05-24] MEDS: methylPREDNISolone NA SUCC 40 MG/1 ML VIAL IVPUSH SCH ×3 (02:24→18:15)
[2020-05-24] MEDS ORDERED: LEVOTHYROXINE NA 25 MCG TABLET (FP) ONE (06:09)
[2020-05-24] MEDS: LEVOTHYROXINE NA 75 MCG TABLET (FP) PO SCH (06:54)
[2020-05-24 07:16] LABS: ALBUMIN 3.4 g/dl (3.4-5.0); BILIRUBIN,TOTAL 0.8 mg/dL (0.2-1); BLOOD UREA NITROGEN 17.7 mg/dL (7-18); CREATININE 1.6 mg/dL (0.55-1.3); POTASSIUM 4.7 mmol/L (3.5-5.1); TOT PROT 7.1 g/dl (6.4-8.2)
[2020-05-24] MEDS ORDERED: INSULIN (LEVEMIR) 100 UNITS/ML UNITS SQ ONE (07:44)
[2020-05-24] MEDS: INSULIN (LEVEMIR) 100 UNITS/ML UNITS SQ SCH ×2 (07:48→21:15)
[2020-05-24 08:38] LABS: BASO % 0.3 % (0-2.0); HEMATOCRIT 35.4 % (32.4-45.2); HEMOGLOBIN 10.9 GM/dL (10.7-15.3); LYMPH % 6.2 % (8-40); MCH 25.3 pg (25.7-33.7); MCHC 30.9 g/dl (32.0-36.0); MEAN PLT VOLUME 10.7 fl (7.5-11.1); MONO % 1.2 % (3.8-10.2); NEUT % 92.3 % (42.8-82.8); PLATELET COUNT 295 K/MM3 (134-434); RBC 4.31 M/mm3 (3.60-5.2); RDW 18.5 % (11.6-15.6); WHITE BLOOD COUNT 9.6 K/mm3 (4.0-10.0)
[2020-05-24] MEDS ORDERED: POTASSIUM CHLORIDE TABS 10 MEQ TABLET.ER (FP) ONE (09:10)
[2020-05-24] MEDS ORDERED: ASPIRIN COATED 81 MG TABLET.EC ONE (09:10)
[2020-05-24] MEDS ORDERED: PANTOPRAZOLE 40 MG TABLET ONE (09:10)
[2020-05-24] MEDS ORDERED: SPIRONOLACTONE 25 MG TABLET ONE (09:11)
[2020-05-24] MEDS ORDERED: metoPROLOL SUCCINATE 25 MG TAB.SR.24H (FP) ONE (09:11)
[2020-05-24] MEDS ORDERED: FUROSEMIDE 40 MG/4 ML INJECTABLE VIAL ONE (09:11)
[2020-05-24] MEDS ORDERED: APIXABAN 5 MG TABLET ONE (09:13)
[2020-05-24] MEDS: metoPROLOL SUCCINATE 25 MG TAB.SR.24H (FP) PO SCH (09:24)
[2020-05-24] MEDS: FUROSEMIDE 40 MG/4 ML INJECTABLE VIAL IVPUSH SCH (09:24)
[2020-05-24] MEDS: ASPIRIN COATED 81 MG TABLET.EC PO SCH (09:24)
[2020-05-24] MEDS: APIXABAN 5 MG TABLET PO SCH ×2 (09:24→21:15)
[2020-05-24] MEDS: PANTOPRAZOLE 40 MG TABLET PO SCH (09:24)
[2020-05-24] MEDS: SPIRONOLACTONE 25 MG TABLET PO SCH (09:24)
[2020-05-24] MEDS: POTASSIUM CHLORIDE TABS 10 MEQ TABLET.ER (FP) PO SCH (09:24)
[2020-05-24 09:44] LABS: ANISOCYTOSIS 1+; MACROCYTOSIS 1+; PLATELET ESTIMATE NORMAL
[2020-05-24] MEDS ORDERED: PT OWN MED DRAWER 7, Y5N ONE (10:52)
[2020-05-24] MEDS: BUDESONIDE/FORMETEROL FUMARATE 160/4.5 mcg INHALER IH SCH ×2 (11:00→21:16)
[2020-05-24] MEDS: TIOTROPIUM BROMIDE 2.5 MCG (SPIRIVA) RESPIMAT INHALER IH SCH (11:00)
--- NOTE | 2020-05-24 13:50 | CON.CARD ---
Cardiology Consult (text) - Consultation Consultation Note: Consult Specialty:: CV - History of Present Illness Chief Complaint: short of breath History of Present Illness: 60 F here with shortness of breath, chest pain, hand swelling. PMH: morbid obesity nonisch CMP AF HTN - Past Medical History Cardio/Vascular: Yes: CHF, HTN, Hyperlipdemia Pulmonary: Yes: Asthma, Sleep Apnea Renal/: Yes: Renal Failure ...: No Endocrine: Yes: Diabetes Mellitus, Hypothyroidism - Past Surgical History Past Surgical History: Yes: Cholecystectomy, Joint Replacement (left tkr), Permanent Pacemaker (ICD) - Alcohol/Substance Use Hx Alcohol Use: No - Smoking History Smoking history: Unknown if ever smoked Have you smoked in the past 12 months: No Aproximately how many cigarettes per day: 0 - Social History Usual Living Arrangement: With Spouse ADL: Independent History of Recent Travel: No Home Medications - Allergies Allergies/Adverse Reactions: Allergies Allergy/AdvReac Type Severity Reaction Status Date / Time tomato Allergy Mild Hives Verified 05/23/20 19:23 chlorpheniramine Allergy Verified 05/23/20 19:23 cimetidine Allergy Verified 05/23/20 19:23 codeine [Codeine] Allergy Verified 05/23/20 19:23 ibuprofen Allergy Verified 05/23/20 19:23 latex [Latex] Allergy Verified 05/23/20 19:23 Latex, Natural Rubber Allergy Verified 05/23/20 19:23 pseudoephedrine Allergy Verified 05/23/20 19:23 salmeterol xinafoate Allergy Verified 05/23/20 19:23 [From Advair Diskus] shellfish derived Allergy Verified 05/23/20 19:23 Sulfa (Sulfonamide Allergy Verified 03/03/20 23:49 Antibiotics) [Sulfa(Sulfonamide Antibiotics)] Chocolate Allergy Mild Hives Uncoded 03/03/20 23:49 shrimp Allergy Mild Hives Uncoded 03/03/20 23:49 Home Medications Medication Instructions Recorded Insulin Glargine,Hum.rec.anlog 20 units SQ AM 08/09/16 [Lantus Solostar PEN -] Budesonide/Formeterol Fumarate 2 puff PO BID 10/14/16 [SYMBICORT 160/4.5mcg -] Albuterol 2.5/Ipratropium 0.5 1 amp NEB Q6H PRN #90 amp 05/21/19 [Duoneb -] Levothyroxine [Synthroid -] 75 mcg PO DAILY #30 tablet 05/21/19 Insulin Glargine,Hum.rec.anlog 10 units SQ HS 08/13/19 [Lantus Solostar PEN -] Metoprolol Succinate [Toprol XL -] 25 mg PO DAILY 10/10/19 Apixaban [Eliquis -] 5 mg PO BID 11/02/19 Linaclotide [Linzess] 290 mcg PO DAILY 11/02/19 Sacubitril/Valsartan [Entresto 24 1 each PO ASDIR 11/02/19 mg-26 mg Tablet] Furosemide [Lasix -] 20 mg PO DAILY #30 tablet 11/06/19 Albuterol 0.083% Nebulizer Jyothi 1 amp NEB Q4H PRN amp 12/13/19 [Ventolin 0.083% Nebulizer Soln -] Spironolactone [Aldactone -] 25 mg PO DAILY tablet 12/13/19 Aspirin Coated [Ecotrin -] 81 mg PO DAILY #30 tablet.ec 12/27/19 Potassium Chloride 10 meq PO DAILY 01/15/20 Pregabalin [Lyrica -] 25 mg PO BID 01/15/20 Tiotropium [place] [Spiriva 2 puff IH DAILY #1 mist.inhal 01/15/20 Respimat] Albuterol 0.083% Nebulizer Jyothi 1 amp NEB Q4H PRN #0 amp 01/20/20 [Ventolin 0.083% Nebulizer Soln -] Furosemide [Lasix -] 20 mg PO DAILY #30 tablet 01/20/20 Montelukast Na [Singulair -] 10 mg PO HS #30 tablet 01/20/20 Pantoprazole Sodium [Protonix -] 40 mg PO DAILY #30 tablet.ec 01/20/20 Potassium Chloride [K-Dur -] 10 meq PO DAILY #30 tablet.er 01/20/20 predniSONE [Deltasone -] 20 mg PO DAILY #20 tablet 01/20/20 Furosemide [Lasix -] 20 mg PO DAILY tablet 02/23/20 Ondansetron [Zofran Odt -] 4 mg SL TID PRN #10 od.tablet 03/04/20 Family Medical History Family History: Denies (no known cmp) Review of Systems - Review of Systems Constitutional: denies: Chills, Fever Eyes: denies: Eye Pain HENT: denies: Nasal Congestion Neck: denies: Stiffness Cardiovascular: denies: Palpitations Respiratory: denies: Orthopnea, PND Gastrointestinal: denies: Diarrhea, Rectal Bleeding Genitourinary: denies: Burning, Hematuria Musculoskeletal: denies: Muscle Pain Integumentary: denies: Rash Neurological: denies: Numbness, Seizure, Syncope Endocrine: denies: Excessive Sweating Hematology/Lymphatic: denies: Excessive Bleeding Vital Signs: Vital Signs Period Temp Pulse Resp BP Sys/Mcgrath Pulse Ox Last 24 Hr 97.7 F-98.9 F 78-102 17-22 103-120/68-84 98-100 Constitutional: Yes: Well Nourished, No Distress, Obese Eyes: No: Sclera Icterus HENT: No: Nasal Congestion Neck: No: Decreased ROM Respiratory: Yes: CTA Bilaterally. No: Accessory Muscle Use, Rales, Wheezes Gastrointestinal: Yes: Normal Bowel Sounds. No: Distention, Hepatomegaly, Palpable Mass, Tenderness Cardiovascular: Yes: Regular Rate and Rhythm JVD: No Heart Sounds: Yes: S1, S2. No: Gallop Murmur: No: Systolic Murmur, Diastolic Murmur Musculoskeletal: Yes: Other (No kyphosis) Extremities: No: Cool, Cyanosis Edema: trace gopi lower ext Integumentary: No: Jaundice Neurological: Yes: Alert, Oriented (x3) Psychiatric: No: Agitated Laboratory Last Values WBC 9.6 K/mm3 (4.0-10.0) 05/24/20 05:44 RBC 4.31 M/mm3 (3.60-5.2) 05/24/20 05:44 Hgb 10.9 GM/dL (10.7-15.3) 05/24/20 05:44 Hct 35.4 % (32.4-45.2) 05/24/20 05:44 MCV 82.0 fl (80-96) 05/24/20 05:44 MCH 25.3 pg (25.7-33.7) L 05/24/20 05:44 MCHC 30.9 g/dl (32.0-36.0) L 05/24/20 05:44 RDW 18.5 % (11.6-15.6) H 05/24/20 05:44 Plt Count 295 K/MM3 (134-434) 05/24/20 05:44 MPV 10.7 fl (7.5-11.1) 05/24/20 05:44 Absolute Neuts (auto) 8.9 K/mm3 (1.5-8.0) H 05/24/20 05:44 Neutrophils % 92.3 % (42.8-82.8) H D 05/24/20 05:44 Neutrophils % (Manual) 89.8 % (42.8-82.8) H 05/24/20 05:44 Band Neutrophils % 0.0 % 05/24/20 05:44 Lymphocytes % 6.2 % (8-40) L D 05/24/20 05:44 Lymphocytes % (Manual) 9.2 % (8-40) D 05/24/20 05:44 Monocytes % 1.2 % (3.8-10.2) L 05/24/20 05:44 Monocytes % (Manual) 0 % (3.8-10.2) L D 05/24/20 05:44 Eosinophils % 0.0 % (0-4.5) D 05/24/20 05:44 Eosinophils % (Manual) 0.0 % (0-4.5) 05/24/20 05:44 Basophils % 0.3 % (0-2.0) 05/24/20 05:44 Basophils % (Manual) 0.0 % (0-2.0) 05/24/20 05:44 Myelocytes % (Man) 1 % (0-2) D 05/24/20 05:44 Promyelocytes % (Man) 0 % (0-2) 05/24/20 05:44 Blast Cells % (Manual) 0 % (0-0) 05/24/20 05:44 Nucleated RBC % 0 % (0-0) 05/24/20 05:44 Metamyelocytes 0 % (0-2) D 05/24/20 05:44 Hypochromia 0 05/24/20 05:44 Platelet Estimate Normal 05/24/20 05:44 Polychromasia 0 05/24/20 05:44 Poikilocytosis 1+ 05/24/20 05:44 Anisocytosis 1+ 06/24/20 05:44 Microcytosis 0 05/24/20 05:44 Macrocytosis 1+ 05/24/20 05:44 PT with INR 19.60 SEC (9.7-13.0) H 05/23/20 20:58 INR 1.65 (0.83-1.09) H 05/23/20 20:58 PTT (Actin FS) 37.9 SECONDS (25.2-36.5) H 05/23/20 20:58 Sodium 138 mmol/L (136-145) 05/24/20 05:44 Potassium 4.7 mmol/L (3.5-5.1) 05/24/20 05:44 Chloride 103 mmol/L (98-107) 05/24/20 05:44 Carbon Dioxide 27 mmol/L (21-32) 05/24/20 05:44 Anion Gap 8 MMOL/L (8-16) 05/24/20 05:44 BUN 17.7 mg/dL (7-18) 05/24/20 05:44 Creatinine 1.6 mg/dL (0.55-1.3) H 05/24/20 05:44 Est GFR (CKD-EPI)AfAm 40.17 05/24/20 05:44 Est GFR (CKD-EPI)NonAf 34.66 05/24/20 05:44 POC Glucometer 390 UNITS (80-120) 05/24/20 07:34 Random Glucose 387 mg/dL (74-106) H 05/24/20 05:44 Calcium 9.0 mg/dL (8.5-10.1) 05/24/20 05:44 Magnesium 1.7 mg/dL (1.8-2.4) L 05/23/20 20:58 Total Bilirubin 0.8 mg/dL (0.2-1) 05/24/20 05:44 AST 8 U/L (15-37) L 05/24/20 05:44 ALT 12 U/L (13-61) L 05/24/20 05:44 Alkaline Phosphatase 101 U/L (45-117) 05/24/20 05:44 Creatine Kinase 213 U/L (26-192) H 05/24/20 05:44 Creatine Kinase Index 0.7 % (0.0-5.0) 05/24/20 05:44 CK-MB (CK-2) 1.5 ng/mL (0.5-3.6) 05/24/20 05:44 Troponin I 0.13 ng/ml (0.00-0.05) H 05/24/20 05:44 B-Natriuretic Peptide 5110.4 pg/ml (5-125) H 05/23/20 20:58 Total Protein 7.1 g/dl (6.4-8.2) 05/24/20 05:44 Albumin 3.4 g/dl (3.4-5.0) 05/24/20 05:44 Lipase 89 U/L (73-393) 05/23/20 20:58 Assessment/Plan Cardiac Catheterization 2018 non-obstructive CAD echo 05/2019 tds, mildly dilated LV, severe global hypok, RV nl CXR: clear lungs/pleura EKG: sinus, LBBB tele: sinus shortness of breath - may be multifactorial - elevated BNP compared to prior and swelling suggest component of CHF exac - cont IV lasix - manage asthma/COPD per pulm acute chronic systolic HF, s/p ICD - cont entresto, spironolactone, metoprolol = home regimen - cont IV lasix as above - monitor daily Cr, lytes, weights - outpatient ICD monitoring elevated trop - indeterminate range, flat trend - similar to prior values - unlikely ACS copd/asthma: - manage per pulm HTN: - bp controlled - same meds paroxysmal afib - in sinus --cont home bb - cont home eliquis for AC (5 bid) HLD - cont statin
--- NOTE | 2020-05-24 14:03 | CON.PULM ---
Consult Consult Specialty:: PULM/CCM Referred by:: ANTONINO Reason for Consultation:: SOB - History of Present Illness Chief Complaint: SOB History of Present Illness: 59 F, Moderate Persistent Asthma (no intubations, not steroid dependent, unknown PEF), OSAS on a home AVAPS device (AVAPS: 500cc / Max pressure: 20 cm H2O / PS max 10 cm H2O / PS min 6 cm H2O / EPAP Max 10 cm H2O / EPAP min 8 cm H2O / Rate Auto / Trigger type Auto / Rise time 6), Nonischemic Cardiomyopathy (s/p pacemaker), CHF, HTN, CKD, and HLD. Admitted via the ER due to progressive SOB and ARNOLD and some "wheezing" that has not been responding to her home BD TX. No travel history or sick contacts. No hemoptysis or night sweats. She does report orthopnea (4 pillows). Patient reports that she has a repeat sleep test about a month ago and the settings on her PAP device will need to be changed. CXR: Cardiomegaly / Pulmonary vascular congestion - History Source History Provided By: Patient Limitations to Obtaining History: No Limitations - Past Medical History Cardio/Vascular: Yes: CHF, HTN, Hyperlipdemia Pulmonary: Yes: Asthma, Bronchitis, Pneumonia, Sleep Apnea. No: Cancer, COPD, Previously Intubated, Pulmonary Embolus, Pulmonary Fibrosis Renal/: Yes: Renal Failure Endocrine: Yes: Diabetes Mellitus, Hypothyroidism - Past Surgical History Past Surgical History: Yes: Cholecystectomy, Joint Replacement (left tkr), Per manent Pacemaker (ICD) - Alcohol/Substance Use Hx Alcohol Use: No - Smoking History Smoking history: Never smoked Have you smoked in the past 12 months: No Aproximately how many cigarettes per day: 0 - Social History Usual Living Arrangement: With Spouse ADL: Independent History of Recent Travel: No Home Medications - Allergies Allergies/Adverse Reactions: Allergies Allergy/AdvReac Type Severity Reaction Status Date / Time tomato Allergy Mild Hives Verified 05/23/20 19:23 chlorpheniramine Allergy Verified 05/23/20 19:23 cimetidine Allergy Verified 05/23/20 19:23 codeine [Codeine] Allergy Verified 05/23/20 19:23 ibuprofen Allergy Verified 05/23/20 19:23 latex [Latex] Allergy Verified 05/23/20 19:23 Latex, Natural Rubber Allergy Verified 05/23/20 19:23 pseudoephedrine Allergy Verified 05/23/20 19:23 salmeterol xinafoate Allergy Verified 05/23/20 19:23 [From Advair Diskus] shellfish derived Allergy Verified 05/23/20 19:23 Sulfa (Sulfonamide Allergy Verified 03/03/20 23:49 Antibiotics) [Sulfa(Sulfonamide Antibiotics)] Chocolate Allergy Mild Hives Uncoded 03/03/20 23:49 shrimp Allergy Mild Hives Uncoded 03/03/20 23:49 - Home Medications Home Medications: Ambulatory Orders Insulin Glargine,Hum.rec.anlog [Lantus Solostar PEN -] 20 units SQ AM 08/09/16 Budesonide/Formeterol Fumarate [SYMBICORT 160/4.5mcg -] 2 puff PO BID 10/14/16 Albuterol 2.5/Ipratropium 0.5 [Duoneb -] 1 amp NEB Q6H PRN #90 amp 05/21/19 Levothyroxine [Synthroid -] 75 mcg PO DAILY #30 tablet 05/21/19 Insulin Glargine,Hum.rec.anlog [Lantus Solostar PEN -] 10 units SQ HS 08/13/19 Metoprolol Succinate [Toprol XL -] 25 mg PO DAILY 10/10/19 Apixaban [Eliquis -] 5 mg PO BID 11/02/19 Linaclotide [Linzess] 290 mcg PO DAILY 11/02/19 Sacubitril/Valsartan [Entresto 24 mg-26 mg Tablet] 1 each PO ASDIR 11/02/19 Furosemide [Lasix -] 20 mg PO DAILY #30 tablet 11/06/19 Albuterol 0.083% Nebulizer Jyothi [Ventolin 0.083% Nebulizer Soln -] 1 amp NEB Q4H PRN amp 12/13/19 Spironolactone [Aldactone -] 25 mg PO DAILY tablet 12/13/19 Aspirin Coated [Ecotrin -] 81 mg PO DAILY #30 tablet.ec 12/27/19 Potassium Chloride 10 meq PO DAILY 01/15/20 Pregabalin [Lyrica -] 25 mg PO BID 01/15/20 Tiotropium [place] [Spiriva Respimat] 2 puff IH DAILY #1 mist.inhal 01/15/20 Albuterol 0.083% Nebulizer Jyothi [Ventolin 0.083% Nebulizer Soln -] 1 amp NEB Q4H PRN #0 amp 01/20/20 Furosemide [Lasix -] 20 mg PO DAILY #30 tablet 01/20/20 Montelukast Na [Singulair -] 10 mg PO HS #30 tablet 01/20/20 Pantoprazole Sodium [Protonix -] 40 mg PO DAILY #30 tablet.ec 01/20/20 Potassium Chloride [K-Dur -] 10 meq PO DAILY #30 tablet.er 01/20/20 predniSONE [Deltasone -] 20 mg PO DAILY #20 tablet 01/20/20 Furosemide [Lasix -] 20 mg PO DAILY tablet 02/23/20 Ondansetron [Zofran Odt -] 4 mg SL TID PRN #10 od.tablet 03/04/20 Review of Systems - Review of Systems Constitutional: reports: Malaise. denies: Chills, Fever, Night Sweats, Unintentional Wgt. Loss Eyes: reports: No Symptoms HENT: reports: No Symptoms Neck: reports: No Symptoms Cardiovascular: reports: Edema, Shortness of Breath. denies: Palpitations Respiratory: reports: Cough, Orthopnea, Snoring, SOB, SOB on Exertion, Wheezing. denies: Hemoptysis Gastrointestinal: reports: No Symptoms Genitourinary: reports: No Symptoms Breasts: reports: No Symptoms Reported Musculoskeletal: reports: Back Pain Integumentary: reports: No Symptoms Neurological: reports: No Symptoms Endocrine: reports: No Symptoms Hematology/Lymphatic: reports: No Symptoms Psychiatric: reports: No Symptoms Physical Exam Vital Sings: Vital Signs Temperature 98.9 F 05/24/20 06:00 Pulse Rate 78 05/24/20 11:35 Respiratory Rate 19 05/24/20 11:35 Blood Pressure 115/68 05/24/20 11:35 O2 Sat by Pulse Oximetry (%) 99 05/24/20 11:35 Constitutional: Yes: No Distress, Obese Eyes: Yes: Conjunctiva Clear, EOM Intact HENT: Yes: Atraumatic, Normocephalic Neck: Yes: Supple Cardiovascular: Yes: Regular Rate and Rhythm Respiratory: Yes: Cough, Diminished, Rales, Rhonchi, SOB, SOB on Exertion, Wheezes. No: Accessory Muscle Use, Stridor, Tachypnea ...Inspection: Yes: WNL ...Clubbing: No Gastrointestinal: Yes: Normal Bowel Sounds, Soft, Abdomen, Obese Renal/: Yes: WNL Breast(s): Yes: Nipple Inversion Extremities: Yes: WNL, Erythema Peripheral Pulses WNL: Yes Integumentary: Yes: WNL Neurological: Yes: WNL, Alert, Oriented ...Motor Strength: WNL Labs: CBC, BMP 05/24/20 05:44 05/24/20 05:44 Imaging - Results Chest X-ray: Report Reviewed, Image Reviewed Problem List - Problems (1) Shortness of breath at rest Code(s): R06.02 - SHORTNESS OF BREATH (2) Acute on chronic systolic (congestive) heart failure Code(s): I50.23 - ACUTE ON CHRONIC SYSTOLIC (CONGESTIVE) HEART FAILURE (3) CAD (coronary artery disease) Code(s): I25.10 - ATHSCL HEART DISEASE OF [place] CORONARY ARTERY W/O ANG PCTRS (4) CHF exacerbation Code(s): I50.9 - HEART FAILURE, UNSPECIFIED (5) COPD (chronic obstructive pulmonary disease) Code(s): J44.9 - CHRONIC OBSTRUCTIVE PULMONARY DISEASE, UNSPECIFIED (6) COPD exacerbation Code(s): J44.1 - CHRONIC OBSTRUCTIVE PULMONARY DISEASE W (ACUTE) EXACERBATION (7) Cardiomyopathy Code(s): I42.9 - CARDIOMYOPATHY, UNSPECIFIED (8) Chronic systolic CHF (congestive heart failure), NYHA class 3 Code(s): I50.22 - CHRONIC SYSTOLIC (CONGESTIVE) HEART FAILURE (9) Controlled diabetes mellitus with diabetic peripheral angiopathy without gangrene Code(s): E11.51 - TYPE 2 DIABETES W DIABETIC PERIPHERAL ANGIOPATH W/O GANGRENE (10) Cough Code(s): R05 - COUGH (11) Diabetes Code(s): E11.9 - TYPE 2 DIABETES MELLITUS WITHOUT COMPLICATIONS (12) Dyspnea Code(s): R06.00 - DYSPNEA, UNSPECIFIED (13) Hyperlipidemia Code(s): E78.5 - HYPERLIPIDEMIA, UNSPECIFIED (14) Hypertension Code(s): I10 - ESSENTIAL (PRIMARY) HYPERTENSION Qualifiers: (15) Hypothyroidism Code(s): E03.9 - HYPOTHYROIDISM, UNSPECIFIED (16) ICD (implantable cardioverter-defibrillator) in place Code(s): Z95.810 - PRESENCE OF AUTOMATIC (IMPLANTABLE) CARDIAC DEFIBRILLATOR (17) Paroxysmal A-fib Code(s): I48.0 - PAROXYSMAL ATRIAL FIBRILLATION (18) Sleep apnea Code(s): G47.30 - SLEEP APNEA, UNSPECIFIED Assessment/Plan Lasix Short course of Medrol BD TX Symbicort BID Supplemental O2 as needed Patient will have her AVAPS device optimized by her outpatient Sleep doctor NIPPV as needed No smoking counseled Daily weights Monitor off ABX Will follow Thank you. Dr Brannon
[2020-05-24] MEDS ORDERED: FLU VACCINE QUAD 60 MCG/0.5 ML (MDV 19-20) IM ONE (18:29)
[2020-05-24] MEDS ORDERED: PNEUMOC 13-VAL CONJ-DIP CRM/PF 0.5 ML DISP.SYRIN IM ONE (18:29)
[2020-05-24] MEDS: MONTELUKAST NA 10 MG TABLET PO SCH (21:15)
--- NOTE | 2020-05-24 21:35 | HP ---
Admitting History and Physical - Admission History of Present Illness: 60 yo F with a hx nonischemic Cardiomyopathy (s/p pacemaker), CHF ( EF 20-25%), COPD/Asthma, Afib (eliquis),HTN, DM,CKD (cr 1-1.3), HLD, CAD, hypothyroidism presented to the emergency department with SOB and chest pain. Per the patient, she had chest pain that occurred for 20 minutes with ARNOLD. It resolved on its own. Her chest pain was consistent with her previous ME in the past (Dec 2019). The patient states she has been SOB for at least last 24 hrs. The patient used 3x nebulizer treatments without improvement. - Past Medical History Cardiovascular: Yes: CHF, HTN, Hyperlipdemia Pulmonary: Yes: Asthma, Bronchitis, Pneumonia, Pulmonary Embolus, Sleep Apnea Renal/: Yes: Renal Failure Endocrine: Yes: Diabetes Mellitus, Hypothyroidism - Past Surgical History Past Surgical History: Yes: Cholecystectomy, Joint Replacement (left tkr), Permanent Pacemaker (ICD) - Smoking History Smoking history: Never smoked Have you smoked in the past 12 months: No Aproximately how many cigarettes per day: 0 - Alcohol/Substance Use Hx Alcohol Use: No - Social History ADL: Independent History of Recent Travel: No Home Medications - Allergies Allergies/Adverse Reactions: Allergies Allergy/AdvReac Type Severity Reaction Status Date / Time tomato Allergy Mild Hives Verified 05/23/20 19:23 chlorpheniramine Allergy Verified 05/23/20 19:23 cimetidine Allergy Verified 05/23/20 19:23 codeine [Codeine] Allergy Verified 05/23/20 19:23 ibuprofen Allergy Verified 05/23/20 19:23 latex [Latex] Allergy Verified 05/23/20 19:23 Latex, Natural Rubber Allergy Verified 05/23/20 19:23 pseudoephedrine Allergy Verified 05/23/20 19:23 salmeterol xinafoate Allergy Verified 05/23/20 19:23 [From Advair Diskus] shellfish derived Allergy Verified 05/23/20 19:23 Sulfa (Sulfonamide Allergy Verified 03/03/20 23:49 Antibiotics) [Sulfa(Sulfonamide Antibiotics)] Chocolate Allergy Mild Hives Uncoded 03/03/20 23:49 shrimp Allergy Mild Hives Uncoded 03/03/20 23:49 - Home Medications Home Medications: Ambulatory Orders Insulin Glargine,Hum.rec.anlog [Lantus Solostar PEN -] 20 units SQ AM 08/09/16 Budesonide/Formeterol Fumarate [SYMBICORT 160/4.5mcg -] 2 puff PO BID 10/14/16 Albuterol 2.5/Ipratropium 0.5 [Duoneb -] 1 amp NEB Q6H PRN #90 amp 05/21/19 Levothyroxine [Synthroid -] 75 mcg PO DAILY #30 tablet 05/21/19 Insulin Glargine,Hum.rec.anlog [Lantus Solostar PEN -] 10 units SQ HS 08/13/19 Metoprolol Succinate [Toprol XL -] 25 mg PO DAILY 10/10/19 Apixaban [Eliquis -] 5 mg PO BID 11/02/19 Linaclotide [Linzess] 290 mcg PO DAILY 11/02/19 Sacubitril/Valsartan [Entresto 24 mg-26 mg Tablet] 1 each PO ASDIR 11/02/19 Furosemide [Lasix -] 20 mg PO DAILY #30 tablet 11/06/19 Albuterol 0.083% Nebulizer Jyothi [Ventolin 0.083% Nebulizer Soln -] 1 amp NEB Q4H PRN amp 12/13/19 Spironolactone [Aldactone -] 25 mg PO DAILY tablet 12/13/19 Aspirin Coated [Ecotrin -] 81 mg PO DAILY #30 tablet.ec 12/27/19 Potassium Chloride 10 meq PO DAILY 01/15/20 Pregabalin [Lyrica -] 25 mg PO BID 01/15/20 Tiotropium [place] [Spiriva Respimat] 2 puff IH DAILY #1 mist.inhal 01/15/20 Albuterol 0.083% Nebulizer Jyothi [Ventolin 0.083% Nebulizer Soln -] 1 amp NEB Q4H PRN #0 amp 01/20/20 Furosemide [Lasix -] 20 mg PO DAILY #30 tablet 01/20/20 Montelukast Na [Singulair -] 10 mg PO HS #30 tablet 01/20/20 Pantoprazole Sodium [Protonix -] 40 mg PO DAILY #30 tablet.ec 01/20/20 Potassium Chloride [K-Dur -] 10 meq PO DAILY #30 tablet.er 01/20/20 Furosemide [Lasix -] 20 mg PO DAILY tablet 02/23/20 Ondansetron [Zofran *Odt*] 4 mg SL TID PRN #10 od.tablet 03/04/20 Furosemide [Lasix -] 20 mg PO DAILY tablet 05/28/20 Sacubitril/Valsartan [Entresto 24 mg-26 mg Tablet] 1 tab PO BID #60 tablet 05/28/20 Review of Systems - Review of Systems Constitutional: reports: No Symptoms Eyes: reports: No Symptoms HENT: reports: No Symptoms Neck: reports: No Symptoms Cardiovascular: reports: Chest Pain, Shortness of Breath Respiratory: reports: SOB Gastrointestinal: reports: No Symptoms Genitourinary: reports: No Symptoms Physical Examination Vital Signs: Vital Signs Temperature 98.3 F 05/24/20 19:30 Pulse Rate 76 05/24/20 19:30 Respiratory Rate 18 05/24/20 20:13 Blood Pressure 128/76 05/24/20 19:30 O2 Sat by Pulse Oximetry (%) 100 05/24/20 20:29 Constitutional: Yes: Obese Eyes: Yes: WNL HENT: Yes: WNL Neck: Yes: WNL, Supple Cardiovascular: Yes: Tachycardia Respiratory: Yes: Rales Gastrointestinal: Yes: WNL, Normal Bowel Sounds, Soft, Abdomen, Obese Musculoskeletal: Yes: WNL Extremities: Yes: WNL Edema: Yes Edema: LLE: Trace, RLE: Trace Neurological: Yes: WNL, Alert, Oriented ...Motor Strength: WNL Labs: CBC, BMP 05/24/20 05:44 05/24/20 05:44 Problem List - Problems (1) Acute on chronic systolic (congestive) heart failure Assessment/Plan: Cont IV lasix Follow electrolytes Cardio consult Code(s): I50.23 - ACUTE ON CHRONIC SYSTOLIC (CONGESTIVE) HEART FAILURE (2) COPD exacerbation Assessment/Plan: Pulmonary consult Cont inhalers ?Steroids Code(s): J44.1 - CHRONIC OBSTRUCTIVE PULMONARY DISEASE W (ACUTE) EXACERBATION (3) CAD (coronary artery disease) Code(s): I25.10 - ATHSCL HEART DISEASE OF [place] CORONARY ARTERY W/O ANG PCTRS (4) Diabetes Assessment/Plan: Cont sliding scale w/ coverage Code(s): E11.9 - TYPE 2 DIABETES MELLITUS WITHOUT COMPLICATIONS (5) Hyperlipidemia Code(s): E78.5 - HYPERLIPIDEMIA, UNSPECIFIED (6) Hypertension Code(s): I10 - ESSENTIAL (PRIMARY) HYPERTENSION Qualifiers: (7) Hypothyroidism Code(s): E03.9 - HYPOTHYROIDISM, UNSPECIFIED (8) ICD (implantable cardioverter-defibrillator) in place Code(s): Z95.810 - PRESENCE OF AUTOMATIC (IMPLANTABLE) CARDIAC DEFIBRILLATOR (9) Morbid obesity Code(s): E66.01 - MORBID (SEVERE) OBESITY DUE TO EXCESS CALORIES (10) Paroxysmal A-fib Code(s): I48.0 - PAROXYSMAL ATRIAL FIBRILLATION (11) Sleep apnea Code(s): G47.30 - SLEEP APNEA, UNSPECIFIED
[2020-05-25] MEDS: methylPREDNISolone NA SUCC 40 MG/1 ML VIAL IVPUSH SCH ×3 (01:22→21:10)
[2020-05-25] MEDS: LEVOTHYROXINE NA 75 MCG TABLET (FP) PO SCH (06:02)
[2020-05-25] MEDS: INSULIN (LEVEMIR) 100 UNITS/ML UNITS SQ SCH ×2 (06:03→21:10)
[2020-05-25] MEDS: SPIRONOLACTONE 25 MG TABLET PO SCH (09:05)
[2020-05-25] MEDS: metoPROLOL SUCCINATE 25 MG TAB.SR.24H (FP) PO SCH (09:05)
[2020-05-25] MEDS: ASPIRIN COATED 81 MG TABLET.EC PO SCH (09:05)
[2020-05-25] MEDS: APIXABAN 5 MG TABLET PO SCH ×2 (09:05→21:10)
[2020-05-25] MEDS: PANTOPRAZOLE 40 MG TABLET PO SCH (09:05)
[2020-05-25] MEDS: TIOTROPIUM BROMIDE 2.5 MCG (SPIRIVA) RESPIMAT INHALER IH SCH (09:06)
[2020-05-25] MEDS: POTASSIUM CHLORIDE TABS 10 MEQ TABLET.ER (FP) PO SCH (09:06)
[2020-05-25] MEDS: BUDESONIDE/FORMETEROL FUMARATE 160/4.5 mcg INHALER IH SCH ×2 (09:06→21:10)
--- NOTE | 2020-05-25 11:21 | PN ---
Progress Note (short form) - Note Progress Note: s: no cp palps dizzy; sob improving Current Medications Generic Name Dose Route Start Last Admin Trade Name Mora PRN Reason Stop Dose Admin Albuterol/Ipratropium 1 amp 05/23/20 23:59 Duoneb - NEB Q6H PRN SHORTNESS OF BREATH Apixaban 5 mg 05/24/20 10:00 05/25/20 09:05 Eliquis - PO 5 mg BID DOM Administration Aspirin 81 mg 05/24/20 10:00 05/25/20 09:05 Ecotrin - PO 81 mg DAILY DOM Administration Budesonide/Formoterol Fumarate 2 puff 05/24/20 10:00 05/25/20 09:06 Symbicort 160/4.5mcg - IH 2 puff BID DOM Administration Furosemide 40 mg 05/24/20 10:00 05/24/20 09:24 Lasix Injection - IVPUSH 40 mg DAILY DOM Administration Insulin Detemir 10 units 05/24/20 22:00 05/24/20 21:15 Levemir Vial SQ 10 units HS DOM Administration Insulin Detemir 20 units 05/24/20 07:00 05/25/20 06:03 Levemir Vial SQ 20 units AM DOM Administration Levothyroxine Sodium 75 mcg 05/24/20 07:00 05/25/20 06:02 Synthroid - PO 75 mcg DAILY@0700 DOM Administration Methylprednisolone Sodium Succinate 40 mg 05/24/20 02:00 05/25/20 01:22 Solu-Medrol - IVPUSH 40 mg Q8H-IV DOM Administration Metoprolol Succinate 25 mg 05/24/20 10:00 05/25/20 09:05 Toprol Xl - PO 25 mg DAILY DOM Administration Montelukast Sodium 10 mg 05/24/20 22:00 05/24/20 21:15 Singulair - PO 10 mg HS DOM Administration Pantoprazole Sodium 40 mg 05/24/20 10:00 05/25/20 09:05 Protonix - PO 40 mg DAILY DOM Administration Pneumococcal 13-Valent Conj Vacc 0.5 ml 05/24/20 18:29 Prevnar 13 Syringe - IM 05/24/20 18:30 .ONCE ONE Potassium Chloride 10 meq 05/24/20 10:00 05/25/20 09:06 K-Dur - PO 10 meq DAILY DOM Administration Sacubitril/Valsartan 1 tab 05/23/20 23:45 Entresto 24 Mg-26 Mg Tablet PO ASDIR DOM Spironolactone 25 mg 05/24/20 10:00 05/25/20 09:05 Aldactone - PO 25 mg DAILY DOM Administration Tiotropium [place] 2 puff 05/24/20 10:00 05/25/20 09:06 Spiriva Respimat IH 2 puff DAILY DOM Administration Laboratory Last Values WBC 9.6 K/mm3 (4.0-10.0) 05/24/20 05:44 RBC 4.31 M/mm3 (3.60-5.2) 05/24/20 05:44 Hgb 10.9 GM/dL (10.7-15.3) 05/24/20 05:44 Hct 35.4 % (32.4-45.2) 05/24/20 05:44 MCV 82.0 fl (80-96) 05/24/20 05:44 MCH 25.3 pg (25.7-33.7) L 05/24/20 05:44 MCHC 30.9 g/dl (32.0-36.0) L 05/24/20 05:44 RDW 18.5 % (11.6-15.6) H 05/24/20 05:44 Plt Count 295 K/MM3 (134-434) 05/24/20 05:44 MPV 10.7 fl (7.5-11.1) 05/24/20 05:44 Absolute Neuts (auto) 8.9 K/mm3 (1.5-8.0) H 05/24/20 05:44 Neutrophils % 92.3 % (42.8-82.8) H D 05/24/20 05:44 Neutrophils % (Manual) 89.8 % (42.8-82.8) H 05/24/20 05:44 Band Neutrophils % 0.0 % 05/24/20 05:44 Lymphocytes % 6.2 % (8-40) L D 05/24/20 05:44 Lymphocytes % (Manual) 9.2 % (8-40) D 05/24/20 05:44 Monocytes % 1.2 % (3.8-10.2) L 05/24/20 05:44 Monocytes % (Manual) 0 % (3.8-10.2) L D 05/24/20 05:44 Eosinophils % 0.0 % (0-4.5) D 05/24/20 05:44 Eosinophils % (Manual) 0.0 % (0-4.5) 05/24/20 05:44 Basophils % 0.3 % (0-2.0) 05/24/20 05:44 Basophils % (Manual) 0.0 % (0-2.0) 05/24/20 05:44 Myelocytes % (Man) 1 % (0-2) D 05/24/20 05:44 Promyelocytes % (Man) 0 % (0-2) 05/24/20 05:44 Blast Cells % (Manual) 0 % (0-0) 05/24/20 05:44 Nucleated RBC % 0 % (0-0) 05/24/20 05:44 Metamyelocytes 0 % (0-2) D 05/24/20 05:44 Hypochromia 0 05/24/20 05:44 Platelet Estimate Normal 05/24/20 05:44 Polychromasia 0 05/24/20 05:44 Poikilocytosis 1+ 05/24/20 05:44 Anisocytosis 1+ 05/24/20 05:44 Microcytosis 0 05/24/20 05:44 Macrocytosis 1+ 05/24/20 05:44 PT with INR 19.60 SEC (9.7-13.0) H 05/23/20 20:58 INR 1.65 (0.83-1.09) H 05/23/20 20:58 PTT (Actin FS) 37.9 SECONDS (25.2-36.5) H 05/23/20 20:58 Sodium 138 mmol/L (136-145) 05/24/20 05:44 Potassium 4.7 mmol/L (3.5-5.1) 05/24/20 05:44 Chloride 103 mmol/L (98-107) 05/24/20 05:44 Carbon Dioxide 27 mmol/L (21-32) 05/24/20 05:44 Anion Gap 8 MMOL/L (8-16) 05/24/20 05:44 BUN 17.7 mg/dL (7-18) 05/24/20 05:44 Creatinine 1.6 mg/dL (0.55-1.3) H 05/24/20 05:44 Est GFR (CKD-EPI)AfAm 40.17 05/24/20 05:44 Est GFR (CKD-EPI)NonAf 34.66 05/24/20 05:44 POC Glucometer 339 UNITS (80-120) 05/25/20 05:26 Random Glucose 387 mg/dL (74-106) H 05/24/20 05:44 Calcium 9.0 mg/dL (8.5-10.1) 05/24/20 05:44 Magnesium 1.7 mg/dL (1.8-2.4) L 05/23/20 20:58 Total Bilirubin 0.8 mg/dL (0.2-1) 05/24/20 05:44 AST 8 U/L (15-37) L 05/24/20 05:44 ALT 12 U/L (13-61) L 05/24/20 05:44 Alkaline Phosphatase 101 U/L (45-117) 05/24/20 05:44 Creatine Kinase 213 U/L (26-192) H 05/24/20 05:44 Creatine Kinase Index 0.7 % (0.0-5.0) 05/24/20 05:44 CK-MB (CK-2) 1.5 ng/mL (0.5-3.6) 05/24/20 05:44 Troponin I 0.13 ng/ml (0.00-0.05) H 05/24/20 05:44 B-Natriuretic Peptide 5110.4 pg/ml (5-125) H 05/23/20 20:58 Total Protein 7.1 g/dl (6.4-8.2) 05/24/20 05:44 Albumin 3.4 g/dl (3.4-5.0) 05/24/20 05:44 Lipase 89 U/L (73-393) 05/23/20 20:58 Vital Signs Period Temp Pulse Resp BP Sys/Mcgrath Pulse Ox Last 24 Hr 97.8 F-98.3 F 76-95 16-19 110-138/62-76 97-100 Constitutional: Yes: Well Nourished, No Distress, Obese Eyes: No: Sclera Icterus HENT: No: Nasal Congestion Neck: No: Decreased ROM Respiratory: Yes: CTA Bilaterally. No: Accessory Muscle Use, Rales, Wheezes Gastrointestinal: Yes: Normal Bowel Sounds. No: Distention, Hepatomegaly, Palpable Mass, Tenderness Cardiovascular: Yes: Regular Rate and Rhythm JVD: No Heart Sounds: Yes: S1, S2. No: Gallop Murmur: No: Systolic Murmur, Diastolic Murmur Extremities: No: Cool, Cyanosis Edema: trace gopi lower ext Integumentary: No: Jaundice Neurological: Yes: Alert, Oriented (x3) Psychiatric: No: Agitated Assessment/Plan Cardiac Catheterization 2019 non-obstructive CAD echo 05/2019 tds, mildly dilated LV, severe global hypok, RV nl CXR: clear lungs/pleura EKG: sinus, LBBB tele: sinus shortness of breath - may be multifactorial - elevated BNP compared to prior and swelling suggest component of CHF exac - cont IV lasix - manage asthma/COPD per pulm acute chronic systolic HF, s/p ICD - cont entresto, spironolactone, metoprolol = home regimen - cont IV lasix as above - monitor daily Cr, lytes, weights - outpatient ICD monitoring elevated trop - indeterminate range, flat trend - similar to prior values - unlikely ACS copd/asthma: - manage per pulm HTN: - bp controlled - same meds paroxysmal afib - in sinus --cont home bb - cont home eliquis for AC (5 bid) HLD - cont statin
--- NOTE | 2020-05-25 14:31 | PN ---
Progress Note (short form) - Note Progress Note: Breathing feels a little better today. Comfortable on RA. No acute events overnight. Intake & Output 05/22/20 05/23/20 05/24/20 05/25/20 23:59 23:59 23:59 23:59 Intake Total 330 240 Balance 330 240 Weight 240 lb 240 lb 257 lb Last Vital Signs Temp Pulse Resp BP Pulse Ox 97.9 F 86 18 115/78 98 05/25/20 09:00 05/25/20 09:00 05/25/20 09:00 05/25/20 09:00 05/25/20 09:00 Active Medications Albuterol/Ipratropium (Duoneb -) 1 amp NEB Q6H PRN PRN Reason: SHORTNESS OF BREATH Apixaban (Eliquis -) 5 mg PO BID [facility] Last Admin: 05/25/20 09:05 Dose: 5 mg Documented by: Aspirin (Ecotrin -) 81 mg PO DAILY [facility] Last Admin: 05/25/20 09:05 Dose: 81 mg Documented by: Budesonide/Formoterol Fumarate (Symbicort 160/4.5mcg -) 2 puff IH BID [facility] Last Admin: 05/25/20 09:06 Dose: 2 puff Documented by: Furosemide (Lasix Injection -) 40 mg IVPUSH DAILY [facility] Last Admin: 05/24/20 09:24 Dose: 40 mg Documented by: Insulin Detemir (Levemir Vial) 10 units SQ HS [facility] Last Admin: 05/24/20 21:15 Dose: 10 units Documented by: Insulin Detemir (Levemir Vial) 20 units SQ AM [facility] Last Admin: 05/25/20 06:03 Dose: 20 units Documented by: Levothyroxine Sodium (Synthroid -) 75 mcg PO DAILY@0700 [facility] Last Admin: 05/25/20 06:02 Dose: 75 mcg Documented by: Methylprednisolone Sodium Succinate (Solu-Medrol -) 40 mg IVPUSH Q8H-IV [facility] Last Admin: 05/25/20 01:22 Dose: 40 mg Documented by: Metoprolol Succinate (Toprol Xl -) 25 mg PO DAILY [facility] Last Admin: 05/25/20 09:05 Dose: 25 mg Documented by: Montelukast Sodium (Singulair -) 10 mg PO [facility] Last Admin: 05/24/20 21:15 Dose: 10 mg Documented by: Pantoprazole Sodium (Protonix -) 40 mg PO DAILY [facility] Last Admin: 05/25/20 09:05 Dose: 40 mg Documented by: Pneumococcal 13-Valent Conj Vacc (Prevnar 13 Syringe -) 0.5 ml IM .ONCE ONE Stop: 05/24/20 18:30 Potassium Chloride (K-Dur -) 10 meq PO DAILY [facility] Last Admin: 05/25/20 09:06 Dose: 10 meq Documented by: Sacubitril/Valsartan (Entresto 24 Mg-26 Mg Tablet) 1 tab PO ASDIR [facility] Spironolactone (Aldactone -) 25 mg PO DAILY [facility] Last Admin: 05/25/20 09:05 Dose: 25 mg Documented by: Tiotropium [place] (Spiriva Respimat) 2 puff IH DAILY [facility] Last Admin: 05/25/20 09:06 Dose: 2 puff Documented by: Constitutional: Yes: No Distress, Obese Eyes: Yes: Conjunctiva Clear, EOM Intact HENT: Yes: Atraumatic, Normocephalic Neck: Yes: Supple Cardiovascular: Yes: Regular Rate and Rhythm Respiratory: Yes: Cough, Diminished, Rales, Rhonchi, SOB, SOB on Exertion, Wheezes. No: Accessory Muscle Use, Stridor, Tachypnea ...Inspection: Yes: WNL ...Clubbing: No Gastrointestinal: Yes: Normal Bowel Sounds, Soft, Abdomen, Obese Renal/: Yes: WNL Breast(s): Yes: Nipple Inversion Extremities: Yes: WNL, Erythema Peripheral Pulses WNL: Yes Integumentary: Yes: WNL Neurological: Yes: WNL, Alert, Oriented ...Motor Strength: WNL Labs: Laboratory Results - last 24 hr 05/23/20 05/24/20 05/25/20 21:03 20:37 05:26 POC Glucometer [id number] COVID-19 ([place]) Not detected Imaging - Results Chest X-ray: Report Reviewed, Image Reviewed Problem List - Problems (1) Shortness of breath at rest Code(s): R06.02 - SHORTNESS OF BREATH (2) Acute on chronic systolic (congestive) heart failure Code(s): I50.23 - ACUTE ON CHRONIC SYSTOLIC (CONGESTIVE) HEART FAILURE (3) CAD (coronary artery disease) Code(s): I25.10 - ATHSCL HEART DISEASE OF [place] CORONARY ARTERY W/O ANG PCTRS (4) CHF exacerbation Code(s): I50.9 - HEART FAILURE, UNSPECIFIED (5) COPD (chronic obstructive pulmonary disease) Code(s): J44.9 - CHRONIC OBSTRUCTIVE PULMONARY DISEASE, UNSPECIFIED (6) COPD exacerbation Code(s): J44.1 - CHRONIC OBSTRUCTIVE PULMONARY DISEASE W (ACUTE) EXACERBATION (7) Cardiomyopathy Code(s): I42.9 - CARDIOMYOPATHY, UNSPECIFIED (8) Chronic systolic CHF (congestive heart failure), NYHA class 3 Code(s): I50.22 - CHRONIC SYSTOLIC (CONGESTIVE) HEART FAILURE (9) Controlled diabetes mellitus with diabetic peripheral angiopathy without gangrene Code(s): E11.51 - TYPE 2 DIABETES W DIABETIC PERIPHERAL ANGIOPATH W/O GANGRENE (10) Cough Code(s): R05 - COUGH (11) Diabetes Code(s): E11.9 - TYPE 2 DIABETES MELLITUS WITHOUT COMPLICATIONS (12) Dyspnea Code(s): R06.00 - DYSPNEA, UNSPECIFIED (13) Hyperlipidemia Code(s): E78.5 - HYPERLIPIDEMIA, UNSPECIFIED (14) Hypertension Code(s): I10 - ESSENTIAL (PRIMARY) HYPERTENSION Qualifiers: (15) Hypothyroidism Code(s): E03.9 - HYPOTHYROIDISM, UNSPECIFIED (16) ICD (implantable cardioverter-defibrillator) in place Code(s): Z95.810 - PRESENCE OF AUTOMATIC (IMPLANTABLE) CARDIAC DEFIBRILLATOR (17) Paroxysmal A-fib Code(s): I48.0 - PAROXYSMAL ATRIAL FIBRILLATION (18) Sleep apnea Code(s): G47.30 - SLEEP APNEA, UNSPECIFIED Assessment/Plan Lasix Short course of Medrol : can likely DC tomorrow BD TX Symbicort BID Supplemental O2 as needed Patient will have her AVAPS device optimized by her outpatient Sleep doctor NIPPV as needed No smoking counseled Daily weights Monitor off ABX Dr Brannon Problem List - Problems (1) Shortness of breath at rest Code(s): R06.02 - SHORTNESS OF BREATH (2) Acute on chronic systolic (congestive) heart failure Code(s): I50.23 - ACUTE ON CHRONIC SYSTOLIC (CONGESTIVE) HEART FAILURE (3) CAD (coronary artery disease) Code(s): I25.10 - ATHSCL HEART DISEASE OF [place] CORONARY ARTERY W/O ANG PCTRS (4) CHF exacerbation Code(s): I50.9 - HEART FAILURE, UNSPECIFIED (5) COPD (chronic obstructive pulmonary disease) Code(s): J44.9 - CHRONIC OBSTRUCTIVE PULMONARY DISEASE, UNSPECIFIED (6) COPD exacerbation Code(s): J44.1 - CHRONIC OBSTRUCTIVE PULMONARY DISEASE W (ACUTE) EXACERBATION (7) Cardiomyopathy Code(s): I42.9 - CARDIOMYOPATHY, UNSPECIFIED (8) Chronic systolic CHF (congestive heart failure), NYHA class 3 Code(s): I50.22 - CHRONIC SYSTOLIC (CONGESTIVE) HEART FAILURE (9) Controlled diabetes mellitus with diabetic peripheral angiopathy without gangrene Code(s): E11.51 - TYPE 2 DIABETES W DIABETIC PERIPHERAL ANGIOPATH W/O GANGRENE (10) Cough Code(s): R05 - COUGH (11) Diabetes Code(s): E11.9 - TYPE 2 DIABETES MELLITUS WITHOUT COMPLICATIONS (12) Dyspnea Code(s): R06.00 - DYSPNEA, UNSPECIFIED (13) Hyperlipidemia Code(s): E78.5 - HYPERLIPIDEMIA, UNSPECIFIED (14) Hypertension Code(s): I10 - ESSENTIAL (PRIMARY) HYPERTENSION Qualifiers: (15) Hypothyroidism Code(s): E03.9 - HYPOTHYROIDISM, UNSPECIFIED (16) ICD (implantable cardioverter-defibrillator) in place Code(s): Z95.810 - PRESENCE OF AUTOMATIC (IMPLANTABLE) CARDIAC DEFIBRILLATOR (17) Paroxysmal A-fib Code(s): I48.0 - PAROXYSMAL ATRIAL FIBRILLATION (18) Sleep apnea Code(s): G47.30 - SLEEP APNEA, UNSPECIFIED
[2020-05-25] MEDS: FUROSEMIDE 40 MG/4 ML INJECTABLE VIAL IVPUSH SCH (15:47)
--- NOTE | 2020-05-25 17:38 | EKG ---
Test Reason : Blood Pressure : / mmHG Vent. Rate : 099 BPM Atrial Rate : 099 BPM P-R Int : 130 ms QRS Dur : 122 ms QT Int : 398 ms P-R-T Axes : 050 -07 123 degrees QTc Int : 510 ms SINUS RHYTHM WITH FREQUENT PREMATURE VENTRICULAR COMPLEXES POSSIBLE LEFT ATRIAL ENLARGEMENT LEFT BUNDLE BRANCH BLOCK ABNORMAL ECG WHEN COMPARED WITH ECG OF 20-FEB-2020 13:09, FUSION COMPLEXES ARE NO LONGER PRESENT PREMATURE VENTRICULAR COMPLEXES ARE NOW PRESENT Confirmed by BLAYNE RUBY MD ([id number]) on 05/25/2020 5:37:41 PM Referred By: Confirmed By:BLAYNE RUBY MD
[2020-05-25] MEDS: MONTELUKAST NA 10 MG TABLET PO SCH (21:10)
--- NOTE | 2020-05-25 23:19 | PN ---
Progress Note, Physician History of Present Illness: Pt still feeling SOB - Current Medication List Current Medications: Active Medications Albuterol/Ipratropium (Duoneb -) 1 amp NEB Q6H PRN PRN Reason: SHORTNESS OF BREATH Apixaban (Eliquis -) 5 mg PO BID [facility] Last Admin: 05/25/20 21:10 Dose: 5 mg Documented by: Aspirin (Ecotrin -) 81 mg PO DAILY [facility] Last Admin: 05/25/20 09:05 Dose: 81 mg Documented by: Budesonide/Formoterol Fumarate (Symbicort 160/4.5mcg -) 2 puff IH BID [facility] Last Admin: 05/25/20 21:10 Dose: 2 puff Documented by: Furosemide (Lasix Injection -) 40 mg IVPUSH DAILY [facility] Last Admin: 05/25/20 15:47 Dose: 40 mg Documented by: Insulin Detemir (Levemir Vial) 10 units SQ HS [facility] Last Admin: 05/25/20 21:10 Dose: 10 units Documented by: Insulin Detemir (Levemir Vial) 20 units SQ AM [facility] Last Admin: 05/25/20 06:03 Dose: 20 units Documented by: Levothyroxine Sodium (Synthroid -) 75 mcg PO DAILY@0700 [facility] Last Admin: 05/25/20 06:02 Dose: 75 mcg Documented by: Methylprednisolone Sodium Succinate (Solu-Medrol -) 40 mg IVPUSH Q8H-IV [facility] Last Admin: 05/25/20 21:10 Dose: 40 mg Documented by: Metoprolol Succinate (Toprol Xl -) 25 mg PO DAILY [facility] Last Admin: 05/25/20 09:05 Dose: 25 mg Documented by: Montelukast Sodium (Singulair -) 10 mg PO HS [facility] Last Admin: 05/25/20 21:10 Dose: 10 mg Documented by: Pantoprazole Sodium (Protonix -) 40 mg PO DAILY [facility] Last Admin: 05/25/20 09:05 Dose: 40 mg Documented by: Pneumococcal 13-Valent Conj Vacc (Prevnar 13 Syringe -) 0.5 ml IM .ONCE ONE Stop: 05/24/20 18:30 Potassium Chloride (K-Dur -) 10 meq PO DAILY [facility] Last Admin: 05/25/20 09:06 Dose: 10 meq Documented by: Sacubitril/Valsartan (Entresto 24 Mg-26 Mg Tablet) 1 tab PO ASDIR [facility] Spironolactone (Aldactone -) 25 mg PO DAILY [facility] Last Admin: 05/25/20 09:05 Dose: 25 mg Documented by: Tiotropium [place] (Spiriva Respimat) 2 puff IH DAILY [facility] Last Admin: 05/25/20 09:06 Dose: 2 puff Documented by: - Objective Vital Signs: Vital Signs Temperature 97.4 F L 05/25/20 21:53 Pulse Rate 90 05/25/20 21:53 Respiratory Rate 18 05/25/20 21:53 Blood Pressure 123/68 05/25/20 21:53 O2 Sat by Pulse Oximetry (%) 98 05/25/20 21:44 Cardiovascular: Yes: WNL, Regular Rate and Rhythm Respiratory: Yes: Diminished Gastrointestinal: Yes: WNL, Normal Bowel Sounds, Soft, Abdomen, Obese Edema: LLE: Trace, RLE: Trace Labs: CBC, BMP 05/24/20 05:44 05/24/20 05:44 INR, PTT INR 1.65 (0.83-1.09) H 05/23/20 20:58 Problem List - Problems (1) Acute on chronic systolic (congestive) heart failure Assessment/Plan: Diuresis as per cardio Follow electrolytes Code(s): I50.23 - ACUTE ON CHRONIC SYSTOLIC (CONGESTIVE) HEART FAILURE (2) CAD (coronary artery disease) Code(s): I25.10 - ATHSCL HEART DISEASE OF [place] CORONARY ARTERY W/O ANG PCTRS (3) COPD exacerbation Assessment/Plan: Pulmonary consult Cont inhalers ?Steroids Code(s): J44.1 - CHRONIC OBSTRUCTIVE PULMONARY DISEASE W (ACUTE) EXACERBATION (4) Diabetes Assessment/Plan: Cont sliding scale w/ coverage Code(s): E11.9 - TYPE 2 DIABETES MELLITUS WITHOUT COMPLICATIONS (5) Hyperlipidemia Code(s): E78.5 - HYPERLIPIDEMIA, UNSPECIFIED (6) Hypertension Code(s): I10 - ESSENTIAL (PRIMARY) HYPERTENSION Qualifiers: (7) Hypothyroidism Code(s): E03.9 - HYPOTHYROIDISM, UNSPECIFIED (8) ICD (implantable cardioverter-defibrillator) in place Code(s): Z95.810 - PRESENCE OF AUTOMATIC (IMPLANTABLE) CARDIAC DEFIBRILLATOR (9) Morbid obesity Code(s): E66.01 - MORBID (SEVERE) OBESITY DUE TO EXCESS CALORIES (10) Paroxysmal A-fib Assessment/Plan: Cont eliquis Code(s): I48.0 - PAROXYSMAL ATRIAL FIBRILLATION (11) Sleep apnea Code(s): G47.30 - SLEEP APNEA, UNSPECIFIED
[2020-05-26] MEDS: methylPREDNISolone NA SUCC 40 MG/1 ML VIAL IVPUSH SCH (01:36)
--- NOTE | 2020-05-26 05:46 | PN ---
Progress Note, Physician Chief Complaint: feeling better No CP/SOB/PALPS TELE: NSR, 3 beats SVT History of Present Illness: Chronic systolic CHF, non ischemic CM s/p ICD Chronic Asthma CKD SH: non smoker - Current Medication List Current Medications: Active Medications Albuterol/Ipratropium (Duoneb -) 1 amp NEB Q6H PRN PRN Reason: SHORTNESS OF BREATH Apixaban (Eliquis -) 5 mg PO BID [facility] Last Admin: 05/25/20 21:10 Dose: 5 mg Documented by: Aspirin (Ecotrin -) 81 mg PO DAILY [facility] Last Admin: 05/25/20 09:05 Dose: 81 mg Documented by: Budesonide/Formoterol Fumarate (Symbicort 160/4.5mcg -) 2 puff IH BID [facility] Last Admin: 05/25/20 21:10 Dose: 2 puff Documented by: Furosemide (Lasix Injection -) 40 mg IVPUSH DAILY [facility] Last Admin: 05/25/20 15:47 Dose: 40 mg Documented by: Insulin Detemir (Levemir Vial) 10 units SQ HS [facility] Last Admin: 05/25/20 21:10 Dose: 10 units Documented by: Insulin Detemir (Levemir Vial) 20 units SQ AM [facility] Last Admin: 05/25/20 06:03 Dose: 20 units Documented by: Levothyroxine Sodium (Synthroid -) 75 mcg PO DAILY@0700 [facility] Last Admin: 05/25/20 06:02 Dose: 75 mcg Documented by: Methylprednisolone Sodium Succinate (Solu-Medrol -) 40 mg IVPUSH Q8H-IV [facility] Last Admin: 05/26/20 01:36 Dose: 40 mg Documented by: Metoprolol Succinate (Toprol Xl -) 25 mg PO DAILY [facility] Last Admin: 05/25/20 09:05 Dose: 25 mg Documented by: Montelukast Sodium (Singulair -) 10 mg PO HS [facility] Last Admin: 05/25/20 21:10 Dose: 10 mg Documented by: Pantoprazole Sodium (Protonix -) 40 mg PO DAILY [facility] Last Admin: 05/25/20 09:05 Dose: 40 mg Documented by: Pneumococcal 13-Valent Conj Vacc (Prevnar 13 Syringe -) 0.5 ml IM .ONCE ONE Stop: 05/24/20 18:30 Potassium Chloride (K-Dur -) 10 meq PO DAILY [facility] Last Admin: 05/25/20 09:06 Dose: 10 meq Documented by: Sacubitril/Valsartan (Entresto 24 Mg-26 Mg Tablet) 1 tab PO ASDIR [facility] Spironolactone (Aldactone -) 25 mg PO DAILY [facility] Last Admin: 05/25/20 09:05 Dose: 25 mg Documented by: Tiotropium [place] (Spiriva Respimat) 2 puff IH DAILY [facility] Last Admin: 05/25/20 09:06 Dose: 2 puff Documented by: - Objective Vital Signs: Vital Signs Temperature 97.5 F L 05/26/20 05:39 Pulse Rate 77 05/26/20 05:39 Respiratory Rate 18 05/26/20 05:39 Blood Pressure 114/53 L 05/26/20 05:39 O2 Sat by Pulse Oximetry (%) 98 05/26/20 01:15 Constitutional: Yes: No Distress, Calm Eyes: Yes: Conjunctiva Clear Cardiovascular: Yes: Regular Rate and Rhythm Respiratory: Yes: CTA Bilaterally Gastrointestinal: Yes: Soft, Abdomen, Obese Edema: No Neurological: Yes: Alert, Oriented ...Motor Strength: WNL Labs: CBC, BMP 05/24/20 05:44 05/24/20 05:44 INR, PTT INR 1.65 (0.83-1.09) H 05/23/20 20:58 Assessment/Plan Assessment/Plan Cardiac Catheterization 2019 non-obstructive CAD echo 05/2019 tds, mildly dilated LV, severe global hypok, RV nl CXR: clear lungs/pleura EKG: sinus, LBBB tele: sinus shortness of breath: - may be multifactorial - elevated BNP compared to prior and swelling suggest component of CHF exac now resolved - BUN/creat rising, stop IV Lasix. Would resume PO on 05/28/2020 -Follow renal fxn - manage asthma/COPD per pulm acute chronic systolic HF, s/p ICD: resolved. - cont entresto, spironolactone, metoprolol = home regimen - d/c IV lasix. Break from diuretics for at least 24 hours - monitor daily Cr, lytes, weights - outpatient ICD monitoring elevated trop: - indeterminate range, flat trend - similar to prior values - unlikely ACS copd/asthma: - manage per pulm HTN: - bp controlled - same meds paroxysmal afib - in sinus --cont home bb - cont home eliquis for AC (5 bid) HLD - cont statin
[2020-05-26] MEDS: LEVOTHYROXINE NA 75 MCG TABLET (FP) PO SCH (06:19)
[2020-05-26] MEDS: INSULIN (LEVEMIR) 100 UNITS/ML UNITS SQ SCH ×2 (06:20→21:30)
[2020-05-26 07:09] LABS: BASO % 0.1 % (0-2.0); EOS % 0.1 % (0-4.5); HEMATOCRIT 34.1 % (32.4-45.2); HEMOGLOBIN 10.6 GM/dL (10.7-15.3); LYMPH % 8.3 % (8-40); MCH 24.8 pg (25.7-33.7); MEAN PLT VOLUME 9.6 fl (7.5-11.1); MONO % 3.3 % (3.8-10.2); NEUT % 88.2 % (42.8-82.8); PLATELET COUNT 303 K/MM3 (134-434); RBC 4.26 M/mm3 (3.60-5.2); RDW 18.5 % (11.6-15.6); WHITE BLOOD COUNT 7.3 K/mm3 (4.0-10.0)
[2020-05-26 07:44] LABS: ALBUMIN 3.4 g/dl (3.4-5.0); BILIRUBIN,TOTAL 0.5 mg/dL (0.2-1); CALCIUM 9.7 mg/dL (8.5-10.1); CREATININE 1.9 mg/dL (0.55-1.3); POTASSIUM 4.3 mmol/L (3.5-5.1); TOT PROT 6.8 g/dl (6.4-8.2)
[2020-05-26 08:25] LABS: BLOOD UREA NITROGEN 47.3 mg/dL (7-18)
--- NOTE | 2020-05-26 09:28 | PN ---
Progress Note (short form) - Note Progress Note: PULMONARY RESTING COMFORTABLE VSS/AFEBRILE BIPAP AT BEDSIDE Constitutional: Yes: No Distress, Obese Eyes: Yes: Conjunctiva Clear, EOM Intact HENT: Yes: Atraumatic, Normocephalic Neck: Yes: Supple Cardiovascular: Yes: Regular Rate and Rhythm Respiratory: Yes: Cough, Diminished, Rales, Rhonchi, SOB, SOB on Exertion, Wheezes. No: Accessory Muscle Use, Stridor, Tachypnea ...Inspection: Yes: WNL ...Clubbing: No Gastrointestinal: Yes: Normal Bowel Sounds, Soft, Abdomen, Obese Renal/: Yes: WNL Breast(s): Yes: Nipple Inversion Extremities: Yes: WNL, Erythema Peripheral Pulses WNL: Yes Integumentary: Yes: WNL Neurological: Yes: WNL, Alert, Oriented ...Motor Strength: WNL Labs: NOTED CR 1.3 NOW 1.9 CXR: CARDIOMEGALY/AICD/B/L CONGESTIVE CHANGES Problem List - Problems (1) Shortness of breath at rest Code(s): R06.02 - SHORTNESS OF BREATH (2) Acute on chronic systolic (congestive) heart failure Code(s): I50.23 - ACUTE ON CHRONIC SYSTOLIC (CONGESTIVE) HEART FAILURE (3) CAD (coronary artery disease) Code(s): I25.10 - ATHSCL HEART DISEASE OF [place] CORONARY ARTERY W/O ANG PCTRS (4) CHF exacerbation Code(s): I50.9 - HEART FAILURE, UNSPECIFIED (5) COPD (chronic obstructive pulmonary disease) Code(s): J44.9 - CHRONIC OBSTRUCTIVE PULMONARY DISEASE, UNSPECIFIED (6) COPD exacerbation Code(s): J44.1 - CHRONIC OBSTRUCTIVE PULMONARY DISEASE W (ACUTE) EXACERBATION (7) Cardiomyopathy Code(s): I42.9 - CARDIOMYOPATHY, UNSPECIFIED (8) Chronic systolic CHF (congestive heart failure), NYHA class 3 Code(s): I50.22 - CHRONIC SYSTOLIC (CONGESTIVE) HEART FAILURE (9) Controlled diabetes mellitus with diabetic peripheral angiopathy without gangrene Code(s): E11.51 - TYPE 2 DIABETES W DIABETIC PERIPHERAL ANGIOPATH W/O GANGRENE (10) Cough Code(s): R05 - COUGH (11) Diabetes Code(s): E11.9 - TYPE 2 DIABETES MELLITUS WITHOUT COMPLICATIONS (12) Dyspnea Code(s): R06.00 - DYSPNEA, UNSPECIFIED (13) Hyperlipidemia Code(s): E78.5 - HYPERLIPIDEMIA, UNSPECIFIED (14) Hypertension Code(s): I10 - ESSENTIAL (PRIMARY) HYPERTENSION Qualifiers: (15) Hypothyroidism Code(s): E03.9 - HYPOTHYROIDISM, UNSPECIFIED (16) ICD (implantable cardioverter-defibrillator) in place Code(s): Z95.810 - PRESENCE OF AUTOMATIC (IMPLANTABLE) CARDIAC DEFIBRILLATOR (17) Paroxysmal A-fib Code(s): I48.0 - PAROXYSMAL ATRIAL FIBRILLATION (18) Sleep apnea Code(s): G47.30 - SLEEP APNEA, UNSPECIFIED Assessment/Plan Cautious Diuretics Short course of Medrol will be d/maite BD TX Symbicort BID Supplemental O2 as needed Patient will have her AVAPS device optimized by her outpatient Sleep doctor NIPPV as needed No smoking counseled Daily weights Monitor creatinine Vipul MIRELES MD
[2020-05-26] MEDS: FUROSEMIDE 40 MG/4 ML INJECTABLE VIAL IVPUSH SCH (09:58)
[2020-05-26] MEDS: metoPROLOL SUCCINATE 25 MG TAB.SR.24H (FP) PO SCH (09:58)
[2020-05-26] MEDS: POTASSIUM CHLORIDE TABS 10 MEQ TABLET.ER (FP) PO SCH (09:59)
[2020-05-26] MEDS: APIXABAN 5 MG TABLET PO SCH ×2 (09:59→21:29)
[2020-05-26] MEDS: SPIRONOLACTONE 25 MG TABLET PO SCH (09:59)
[2020-05-26] MEDS: ASPIRIN COATED 81 MG TABLET.EC PO SCH (09:59)
[2020-05-26] MEDS: PANTOPRAZOLE 40 MG TABLET PO SCH (09:59)
[2020-05-26] MEDS: SACUBITRIL/VALSARTAN 24 MG-26 MG TABLET PO SCH ×2 (09:59→21:29)
[2020-05-26] MEDS: BUDESONIDE/FORMETEROL FUMARATE 160/4.5 mcg INHALER IH SCH ×2 (10:01→21:31)
[2020-05-26] MEDS: TIOTROPIUM BROMIDE 2.5 MCG (SPIRIVA) RESPIMAT INHALER IH SCH (10:01)
[2020-05-26] MEDS ORDERED: PNEUMOCOCCAL 23 VACCINE 0.5 ML VIAL IM ONE (10:30)
[2020-05-26] MEDS ORDERED: PT OWN MED DRAWER 7, Y5N ONE ×2 (11:53→21:16)
--- NOTE | 2020-05-26 15:15 | PN ---
Progress Note, Physician History of Present Illness: stable - Current Medication List Current Medications: Active Medications Albuterol/Ipratropium (Duoneb -) 1 amp NEB Q6H PRN PRN Reason: SHORTNESS OF BREATH Apixaban (Eliquis -) 5 mg PO BID [facility] Last Admin: 05/26/20 09:59 Dose: 5 mg Documented by: Aspirin (Ecotrin -) 81 mg PO DAILY [facility] Last Admin: 05/26/20 09:59 Dose: 81 mg Documented by: Budesonide/Formoterol Fumarate (Symbicort 160/4.5mcg -) 2 puff IH BID [facility] Last Admin: 05/26/20 10:01 Dose: 2 puff Documented by: Insulin Detemir (Levemir Vial) 10 units SQ HS [facility] Last Admin: 05/25/20 21:10 Dose: 10 units Documented by: Insulin Detemir (Levemir Vial) 20 units SQ AM [facility] Last Admin: 05/26/20 06:20 Dose: 20 units Documented by: Levothyroxine Sodium (Synthroid -) 75 mcg PO DAILY@0700 [facility] Last Admin: 05/26/20 06:19 Dose: 75 mcg Documented by: Metoprolol Succinate (Toprol Xl -) 25 mg PO DAILY [facility] Last Admin: 05/26/20 09:58 Dose: 25 mg Documented by: Montelukast Sodium (Singulair -) 10 mg PO HS [facility] Last Admin: 05/25/20 21:10 Dose: 10 mg Documented by: Pantoprazole Sodium (Protonix -) 40 mg PO DAILY [facility] Last Admin: 05/26/20 09:59 Dose: 40 mg Documented by: Potassium Chloride (K-Dur -) 10 meq PO DAILY [facility] Last Admin: 05/26/20 09:59 Dose: 10 meq Documented by: Sacubitril/Valsartan (Entresto 24 Mg-26 Mg Tablet) 1 tab PO BID [facility] Last Admin: 05/26/20 09:59 Dose: 1 tab Documented by: Spironolactone (Aldactone -) 25 mg PO DAILY [facility] Last Admin: 05/26/20 09:59 Dose: 25 mg Documented by: Tiotropium [place] (Spiriva Respimat) 2 puff IH DAILY [facility] Last Admin: 05/26/20 10:01 Dose: 2 puff Documented by: - Objective Vital Signs: Vital Signs Temperature 98 F 05/26/20 10:00 Pulse Rate 88 05/26/20 10:00 Respiratory Rate 20 05/26/20 10:00 Blood Pressure 122/62 05/26/20 10:00 O2 Sat by Pulse Oximetry (%) 98 05/26/20 09:00 Constitutional: Yes: No Distress HENT: Yes: Atraumatic Neck: Yes: Supple Cardiovascular: Yes: Regular Rate and Rhythm Respiratory: Yes: Rhonchi Gastrointestinal: Yes: Normal Bowel Sounds Neurological: Yes: Alert Labs: CBC, BMP 05/26/20 06:56 05/26/20 06:56 INR, PTT INR 1.65 (0.83-1.09) H 05/23/20 20:58 Problem List - Problems (1) Shortness of breath at rest Assessment/Plan: on diuretics..on hold now duo nebs prn Code(s): R06.02 - SHORTNESS OF BREATH (2) Acute on chronic systolic and diastolic heart failure, NYHA class 3 Code(s): I50.43 - ACUTE ON CHRONIC COMBINED SYSTOLIC AND DIASTOLIC HRT FAIL (3) Asthma exacerbation Assessment/Plan: on duo nebs and other meds steroid done Code(s): J45.901 - UNSPECIFIED ASTHMA WITH (ACUTE) EXACERBATION Qualifiers: Asthma severity: unspecified severity Asthma persistence: unspecified Qualified Code(s): J45.901 - Unspecified asthma with (acute) exacerbation (4) COPD (chronic obstructive pulmonary disease) Code(s): J44.9 - CHRONIC OBSTRUCTIVE PULMONARY DISEASE, UNSPECIFIED (5) COPD exacerbation Code(s): J44.1 - CHRONIC OBSTRUCTIVE PULMONARY DISEASE W (ACUTE) EXACERBATION (6) Chest pain Code(s): R07.9 - CHEST PAIN, UNSPECIFIED Qualifiers: Chest pain type: unspecified Qualified Code(s): R07.9 - Chest pain, unsp ecified (7) Diabetes Assessment/Plan: on insulin and bgms Code(s): E11.9 - TYPE 2 DIABETES MELLITUS WITHOUT COMPLICATIONS (8) Hyperlipidemia Code(s): E78.5 - HYPERLIPIDEMIA, UNSPECIFIED (9) Hypertension Assessment/Plan: on meds monitor Code(s): I10 - ESSENTIAL (PRIMARY) HYPERTENSION Qualifiers: (10) Hypothyroidism Assessment/Plan: on meds Code(s): E03.9 - HYPOTHYROIDISM, UNSPECIFIED Assessment/Plan COVERING FOR DR AVENDANO TODAY
[2020-05-26] MEDS: MONTELUKAST NA 10 MG TABLET PO SCH (21:29)
[2020-05-27] MEDS: LEVOTHYROXINE NA 75 MCG TABLET (FP) PO SCH (06:46)
[2020-05-27] MEDS: INSULIN (LEVEMIR) 100 UNITS/ML UNITS SQ SCH ×2 (06:46→21:48)
[2020-05-27] MEDS ORDERED: PT OWN MED DRAWER 7, Y5N ONE ×2 (07:30→21:23)
--- NOTE | 2020-05-27 07:58 | PN ---
Progress Note, Physician Chief Complaint: sob History of Present Illness: no more sob, feels back to her baseline no cp, swelling of legs, palp no cigs - Current Medication List Current Medications: Active Medications Albuterol/Ipratropium (Duoneb -) 1 amp NEB Q6H PRN PRN Reason: SHORTNESS OF BREATH Apixaban (Eliquis -) 5 mg PO BID [facility] Last Admin: 05/26/20 21:29 Dose: 5 mg Documented by: Aspirin (Ecotrin -) 81 mg PO DAILY [facility] Last Admin: 05/26/20 09:59 Dose: 81 mg Documented by: Budesonide/Formoterol Fumarate (Symbicort 160/4.5mcg -) 2 puff IH BID [facility] Last Admin: 05/26/20 21:31 Dose: 2 puff Documented by: Insulin Detemir (Levemir Vial) 10 units SQ HS [facility] Last Admin: 05/26/20 21:30 Dose: 10 units Documented by: Insulin Detemir (Levemir Vial) 20 units SQ AM [facility] Last Admin: 05/27/20 06:46 Dose: 20 units Documented by: Levothyroxine Sodium (Synthroid -) 75 mcg PO DAILY@0700 [facility] Last Admin: 05/27/20 06:46 Dose: 75 mcg Documented by: Metoprolol Succinate (Toprol Xl -) 25 mg PO DAILY [facility] Last Admin: 05/26/20 09:58 Dose: 25 mg Documented by: Montelukast Sodium (Singulair -) 10 mg PO HS [facility] Last Admin: 05/26/20 21:29 Dose: 10 mg Documented by: Pantoprazole Sodium (Protonix -) 40 mg PO DAILY [facility] Last Admin: 05/26/20 09:59 Dose: 40 mg Documented by: Potassium Chloride (K-Dur -) 10 meq PO DAILY [facility] Last Admin: 05/26/20 09:59 Dose: 10 meq Documented by: Sacubitril/Valsartan (Entresto 24 Mg-26 Mg Tablet) 1 tab PO BID [facility] Last Admin: 05/26/20 21:29 Dose: 1 tab Documented by: Spironolactone (Aldactone -) 25 mg PO DAILY [facility] Last Admin: 05/26/20 09:59 Dose: 25 mg Documented by: Tiotropium [place] (Spiriva Respimat) 2 puff IH DAILY [facility] Last Admin: 05/26/20 10:01 Dose: 2 puff Documented by: - Objective Vital Signs: Vital Signs Temperature 97.9 F 05/27/20 06:00 Pulse Rate 72 05/27/20 06:00 Respiratory Rate 20 05/27/20 06:00 Blood Pressure 111/71 05/27/20 06:00 O2 Sat by Pulse Oximetry (%) 100 05/27/20 05:05 Constitutional: Yes: No Distress, Calm, Obese Cardiovascular: Yes: Regular Rate and Rhythm, S1, S2. No: JVD, Gallop, Murmur Respiratory: Yes: Regular, CTA Bilaterally. No: Accessory Muscle Use Extremities: No: Cold Edema: No Neurological: Yes: Alert, Oriented Psychiatric: No: Agitated Labs: CBC, BMP 05/26/20 06:56 05/26/20 06:56 INR, PTT INR 1.65 (0.83-1.09) H 05/23/20 20:58 Assessment/Plan Cardiac Catheterization 2018 non-obstructive CAD echo 05/2019 tds, mildly dilated LV, severe global hypok, RV nl CXR: clear lungs/pleura EKG: sinus, LBBB tele: NSR, NSVT x 4b shortness of breath: - may be multifactorial (as on multiple prior admist)- elevated BNP compared to prior and swelling suggest component of CHF exac now resolved, no more sob - home lasix = 20mg qd, received 40 IV qd here. - bun/cr bumped 05/26, lasix held--resume PO once renal fxn stabilizes - no BMP drawn today, ordered--once creat trending down would resume lasix at home dose (20 po qd)--ok for discharge tomorrow - manage asthma/COPD per pulm - given mult prior admits with sob and equivocal clinical picture (co-existing CHF and lung dz), morbid obesity complicating physical exam assessment of volume status, and repeated labile creatinine fluctuations with diuresis attempts, would consider Cardiomems implant here to guide diuretic therapy going forward and minimize recurrent HF hospitalization. acute chronic systolic HF, s/p ICD: resolved. - cont entresto, spironolactone, metoprolol = home regimen - outpatient ICD monitoring - f/u labs--replete K/Mg to > 4/2 elevated trop: - indeterminate range, flat trend - similar to prior values - unlikely ACS copd/asthma: - manage per pulm HTN: - bp controlled - same meds paroxysmal afib - in sinus --cont home bb - cont home eliquis for AC (5 bid) HLD - cont statin
[2020-05-27] MEDS: SACUBITRIL/VALSARTAN 24 MG-26 MG TABLET PO SCH ×2 (09:06→21:48)
[2020-05-27] MEDS: SPIRONOLACTONE 25 MG TABLET PO SCH (09:06)
[2020-05-27] MEDS: metoPROLOL SUCCINATE 25 MG TAB.SR.24H (FP) PO SCH (09:06)
[2020-05-27] MEDS: PANTOPRAZOLE 40 MG TABLET PO SCH (09:07)
[2020-05-27] MEDS: POTASSIUM CHLORIDE TABS 10 MEQ TABLET.ER (FP) PO SCH (09:07)
[2020-05-27] MEDS: TIOTROPIUM BROMIDE 2.5 MCG (SPIRIVA) RESPIMAT INHALER IH SCH (09:07)
[2020-05-27] MEDS: BUDESONIDE/FORMETEROL FUMARATE 160/4.5 mcg INHALER IH SCH ×2 (09:07→21:48)
[2020-05-27] MEDS: ASPIRIN COATED 81 MG TABLET.EC PO SCH (09:07)
[2020-05-27] MEDS: APIXABAN 5 MG TABLET PO SCH ×2 (09:07→21:48)
--- NOTE | 2020-05-27 11:19 | PN ---
Progress Note (short form) - Note Progress Note: PULMONARY RESTING COMFORTABLE VSS/AFEBRILE BIPAP AT BEDSIDE SP02 98 r/a Constitutional: Yes: No Distress, Obese Eyes: Yes: Conjunctiva Clear, EOM Intact HENT: Yes: Atraumatic, Normocephalic Neck: Yes: Supple Cardiovascular: Yes: Regular Rate and Rhythm Respiratory: Yes: Cough, Diminished, Rales, Rhonchi, SOB, SOB on Exertion, Wheezes. No: Accessory Muscle Use, Stridor, Tachypnea ...Inspection: Yes: WNL ...Clubbing: No Gastrointestinal: Yes: Normal Bowel Sounds, Soft, Abdomen, Obese Renal/: Yes: WNL Breast(s): Yes: Nipple Inversion Extremities: Yes: WNL, Erythema Peripheral Pulses WNL: Yes Integumentary: Yes: WNL Neurological: Yes: WNL, Alert, Oriented ...Motor Strength: WNL Labs: NOTED CR 1.3 NOW 1.9 CXR: CARDIOMEGALY/AICD/B/L CONGESTIVE CHANGES Problem List - Problems (1) Shortness of breath at rest Code(s): R06.02 - SHORTNESS OF BREATH (2) Acute on chronic systolic (congestive) heart failure Code(s): I50.23 - ACUTE ON CHRONIC SYSTOLIC (CONGESTIVE) HEART FAILURE (3) CAD (coronary artery disease) Code(s): I25.10 - ATHSCL HEART DISEASE OF [place] CORONARY ARTERY W/O ANG PCTRS (4) CHF exacerbation Code(s): I50.9 - HEART FAILURE, UNSPECIFIED (5) COPD (chronic obstructive pulmonary disease) Code(s): J44.9 - CHRONIC OBSTRUCTIVE PULMONARY DISEASE, UNSPECIFIED (6) COPD exacerbation Code(s): J44.1 - CHRONIC OBSTRUCTIVE PULMONARY DISEASE W (ACUTE) EXACERBATION (7) Cardiomyopathy Code(s): I42.9 - CARDIOMYOPATHY, UNSPECIFIED (8) Chronic systolic CHF (congestive heart failure), NYHA class 3 Code(s): I50.22 - CHRONIC SYSTOLIC (CONGESTIVE) HEART FAILURE (9) Controlled diabetes mellitus with diabetic peripheral angiopathy without gangrene Code(s): E11.51 - TYPE 2 DIABETES W DIABETIC PERIPHERAL ANGIOPATH W/O GANGRENE (10) Cough Code(s): R05 - COUGH (11) Diabetes Code(s): E11.9 - TYPE 2 DIABETES MELLITUS WITHOUT COMPLICATIONS (12) Dyspnea Code(s): R06.00 - DYSPNEA, UNSPECIFIED (13) Hyperlipidemia Code(s): E78.5 - HYPERLIPIDEMIA, UNSPECIFIED (14) Hypertension Code(s): I10 - ESSENTIAL (PRIMARY) HYPERTENSION Qualifiers: (15) Hypothyroidism Code(s): E03.9 - HYPOTHYROIDISM, UNSPECIFIED (16) ICD (implantable cardioverter-defibrillator) in place Code(s): Z95.810 - PRESENCE OF AUTOMATIC (IMPLANTABLE) CARDIAC DEFIBRILLATOR (17) Paroxysmal A-fib Code(s): I48.0 - PAROXYSMAL ATRIAL FIBRILLATION (18) Sleep apnea Code(s): G47.30 - SLEEP APNEA, UNSPECIFIED Assessment/Plan Cautious Diuretics Short course of Medrol will be d/maite BD TX Symbicort BID Supplemental O2 as needed Patient will have her AVAPS device optimized by her outpatient Sleep doctor NIPPV as needed No smoking counseled Daily weights Monitor creatinine Vipul MIRELES MD
[2020-05-27 17:48] LABS: BLOOD UREA NITROGEN 34.9 mg/dL (7-18); CALCIUM 10.3 mg/dL (8.5-10.1); CREATININE 1.7 mg/dL (0.55-1.3); MAGNESIUM 2.1 mg/dL (1.8-2.4); POTASSIUM 4.3 mmol/L (3.5-5.1)
--- NOTE | 2020-05-27 19:16 | CONSULT ---
Consult Consult Specialty:: Nephrology Reason for Consultation:: MU - History of Present Illness Chief Complaint: shortness of breath History of Present Illness: Pt is a 60 year old female with pmhx of ckd, chf, copd, asthma, a-fib, htn, dm, and cad who presents with shortness of breath and chest pain. She was found to develop elevated arnp and I was called to evaluate her. She feels that her breathing is improved. She denies dysuria or hematuria. Her home dose of lasix is 20 mg daily. She does have ckd and her arnp ranges at about 1 to 1.3. She is sensitive to diuretics. - History Source History Provided By: Patient - Past Medical History Cardio/Vascular: Yes: CHF, HTN, Hyperlipdemia Pulmonary: Yes: Asthma, Bronchitis, Pneumonia, Sleep Apnea. No: Cancer, COPD, Previously Intubated, Pulmonary Embolus, Pulmonary Fibrosis Renal/: Yes: Renal Failure, Renal Inusuff Endocrine: Yes: Diabetes Mellitus, Hypothyroidism - Past Surgical History Past Surgical History: Yes: Cholecystectomy, Joint Replacement (left tkr), Permanent Pacemaker (ICD) - Alcohol/Substance Use Hx Alcohol Use: No - Smoking History Smoking history: Never smoked Have you smoked in the past 12 months: No Aproximately how many cigarettes per day: 0 - Social History Usual Living Arrangement: With Spouse ADL: Independent History of Recent Travel: No Home Medications - Allergies Allergies/Adverse Reactions: Allergies Allergy/AdvReac Type Severity Reaction Status Date / Time tomato Allergy Mild Hives Verified 05/23/20 19:23 chlorpheniramine Allergy Verified 05/23/20 19:23 cimetidine Allergy Verified 05/23/20 19:23 codeine [Codeine] Allergy Verified 05/23/20 19:23 ibuprofen Allergy Verified 05/23/20 19:23 latex [Latex] Allergy Verified 05/23/20 19:23 Latex, Natural Rubber Allergy Verified 05/23/20 19:23 pseudoephedrine Allergy Verified 05/23/20 19:23 salmeterol xinafoate Allergy Verified 05/23/20 19:23 [From Advair Diskus] shellfish derived Allergy Verified 05/23/20 19:23 Sulfa (Sulfonamide Allergy Verified 03/03/20 23:49 Antibiotics) [Sulfa(Sulfonamide Antibiotics)] Chocolate Allergy Mild Hives Uncoded 03/03/20 23:49 shrimp Allergy Mild Hives Uncoded 03/03/20 23:49 - Home Medications Home Medications: Ambulatory Orders Insulin Glargine,Hum.rec.anlog [Lantus Solostar PEN -] 20 units SQ AM 08/09/16 Budesonide/Formeterol Fumarate [SYMBICORT 160/4.5mcg -] 2 puff PO BID 10/14/16 Albuterol 2.5/Ipratropium 0.5 [Duoneb -] 1 amp NEB Q6H PRN #90 amp 05/21/19 Levothyroxine [Synthroid -] 75 mcg PO DAILY #30 tablet 05/21/19 Insulin Glargine,Hum.rec.anlog [Lantus Solostar PEN -] 10 units SQ HS 08/13/19 Metoprolol Succinate [Toprol XL -] 25 mg PO DAILY 10/10/19 Apixaban [Eliquis -] 5 mg PO BID 11/02/19 Linaclotide [Linzess] 290 mcg PO DAILY 11/02/19 Sacubitril/Valsartan [Entresto 24 mg-26 mg Tablet] 1 each PO ASDIR 11/02/19 Furosemide [Lasix -] 20 mg PO DAILY #30 tablet 11/06/19 Albuterol 0.083% Nebulizer Jyothi [Ventolin 0.083% Nebulizer Soln -] 1 amp NEB Q4H PRN amp 12/13/19 Spironolactone [Aldactone -] 25 mg PO DAILY tablet 12/13/19 Aspirin Coated [Ecotrin -] 81 mg PO DAILY #30 tablet.ec 12/27/19 Potassium Chloride 10 meq PO DAILY 01/15/20 Pregabalin [Lyrica -] 25 mg PO BID 01/15/20 Tiotropium [place] [Spiriva Respimat] 2 puff IH DAILY #1 mist.inhal 01/15/20 Albuterol 0.083% Nebulizer Jy[place]i [Ventolin 0.083% Nebulizer Soln -] 1 amp NEB Q4H PRN #0 amp 01/20/20 Furosemide [Lasix -] 20 mg PO DAILY #30 tablet 01/20/20 Montelukast Na [Singulair -] 10 mg PO HS #30 tablet 01/20/20 Pantoprazole Sodium [Protonix -] 40 mg PO DAILY #30 tablet.ec 01/20/20 Potassium Chloride [K-Dur -] 10 meq PO DAILY #30 tablet.er 01/20/20 predniSONE [Deltasone -] 20 mg PO DAILY #20 tablet 01/20/20 Furosemide [Lasix -] 20 mg PO DAILY tablet 02/23/20 Ondansetron [Zofran Odt -] 4 mg SL TID PRN #10 od.tablet 03/04/20 Family Medical History Family History: Denies Review of Systems - Review of Systems Constitutional: reports: Malaise Eyes: reports: No Symptoms HENT: reports: No Symptoms Neck: reports: No Symptoms Cardiovascular: reports: Chest Pain. denies: Edema Respiratory: reports: SOB on Exertion Genitourinary: reports: No Symptoms Musculoskeletal: reports: No Symptoms Integumentary: reports: No Symptoms Neurological: reports: No Symptoms Endocrine: reports: No Symptoms Hematology/Lymphatic: reports: No Symptoms Physical Exam Vital Signs: Vital Signs Temperature 98.5 F 05/27/20 18:00 Pulse Rate 82 05/27/20 18:00 Respiratory Rate 20 05/27/20 18:00 Blood Pressure 100/59 L 05/27/20 18:00 O2 Sat by Pulse Oximetry (%) 98 05/27/20 07:59 Constitutional: Yes: Calm Eyes: Yes: Conjunctiva Clear HENT: Yes: Atraumatic Neck: Yes: Supple Cardiovascular: Yes: S1, S2 Respiratory: Yes: CTA Bilaterally Gastrointestinal: Yes: Normal Bowel Sounds, Soft Renal/: Yes: WNL Musculoskeletal: Yes: WNL Edema: No Neurological: Yes: Oriented Psychiatric: Yes: Oriented Labs: CBC, BMP 05/26/20 06:56 05/27/20 17:10 Imaging - Results Chest X-ray: Report Reviewed Problem List - Problems (1) Shortness of breath at rest Code(s): R06.02 - SHORTNESS OF BREATH (2) MU (acute kidney injury) Code(s): N17.9 - ACUTE KIDNEY FAILURE, UNSPECIFIED Assessment/Plan Current Medications Generic Name Dose Route Start Last Admin Trade Name Freq PRN Reason Stop Dose Admin Albuterol/Ipratropium 1 amp 05/23/20 23:59 Duoneb - NEB Q6H PRN SHORTNESS OF BREATH Apixaban 5 mg 05/24/20 10:00 05/27/20 09:07 Eliquis - PO 5 mg BID DOM Administration Aspirin 81 mg 05/24/20 10:00 05/27/20 09:07 Ecotrin - PO 81 mg DAILY DOM Administration Budesonide/Formoterol Fumarate 2 puff 05/24/20 10:00 05/27/20 09:07 Symbicort 160/4.5mcg - IH 2 puff BID DOM Administration Insulin Detemir 10 units 05/24/20 22:00 05/26/20 21:30 Levemir Vial SQ 10 units HS DOM Administration Insulin Detemir 20 units 05/24/20 07:00 05/27/20 06:46 Levemir Vial SQ 20 units AM DOM Administration Levothyroxine Sodium 75 mcg 05/24/20 07:00 05/27/20 06:46 Synthroid - PO 75 mcg DAILY@0700 DOM Administration Metoprolol Succinate 25 mg 05/24/20 10:00 05/27/20 09:06 Toprol Xl - PO 25 mg DAILY DOM Administration Montelukast Sodium 10 mg 05/24/20 22:00 05/26/20 21:29 Singulair - PO 10 mg HS DOM Administration Pantoprazole Sodium 40 mg 05/24/20 10:00 05/27/20 09:07 Protonix - PO 40 mg DAILY DOM Administration Potassium Chloride 10 meq 05/24/20 10:00 05/27/20 09:07 K-Dur - PO 10 meq DAILY DOM Administration Sacubitril/Valsartan 1 tab 05/26/20 10:00 05/27/20 09:06 Entresto 24 Mg-26 Mg Tablet PO 1 tab BID DOM Administration Spironolactone 25 mg 05/24/20 10:00 05/27/20 09:06 Aldactone - PO 25 mg DAILY DOM Administration Tiotropium [place] 2 puff 05/24/20 10:00 05/27/20 09:07 Spiriva Respimat IH 2 puff DAILY DOM Administration Impression 1. ckd 2. dyspnea 3. asthma 4. chf 5. obesity 6. hypotension 7. a-fib 8. MU Plan - repeat labs in am - lasix on hold - pt on aldactone and entresto - hold potassium supplements for now - repeat labs in am
--- NOTE | 2020-05-27 20:44 | PN ---
Progress Note, Physician History of Present Illness: No new complaints - Current Medication List Current Medications: Active Medications Albuterol/Ipratropium (Duoneb -) 1 amp NEB Q6H PRN PRN Reason: SHORTNESS OF BREATH Apixaban (Eliquis -) 5 mg PO BID [facility] Last Admin: 05/27/20 09:07 Dose: 5 mg Documented by: Aspirin (Ecotrin -) 81 mg PO DAILY [facility] Last Admin: 05/27/20 09:07 Dose: 81 mg Documented by: Budesonide/Formoterol Fumarate (Symbicort 160/4.5mcg -) 2 puff IH BID [facility] Last Admin: 05/27/20 09:07 Dose: 2 puff Documented by: Insulin Detemir (Levemir Vial) 10 units SQ HS [facility] Last Admin: 05/26/20 21:30 Dose: 10 units Documented by: Insulin Detemir (Levemir Vial) 20 units SQ AM [facility] Last Admin: 05/27/20 06:46 Dose: 20 units Documented by: Levothyroxine Sodium (Synthroid -) 75 mcg PO DAILY@0700 [facility] Last Admin: 05/27/20 06:46 Dose: 75 mcg Documented by: Metoprolol Succinate (Toprol Xl -) 25 mg PO DAILY [facility] Last Admin: 05/27/20 09:06 Dose: 25 mg Documented by: Montelukast Sodium (Singulair -) 10 mg PO HS [facility] Last Admin: 05/26/20 21:29 Dose: 10 mg Documented by: Pantoprazole Sodium (Protonix -) 40 mg PO DAILY [facility] Last Admin: 05/27/20 09:07 Dose: 40 mg Documented by: Sacubitril/Valsartan (Entresto 24 Mg-26 Mg Tablet) 1 tab PO BID [facility] Last Admin: 05/27/20 09:06 Dose: 1 tab Documented by: Spironolactone (Aldactone -) 25 mg PO DAILY [facility] Last Admin: 05/27/20 09:06 Dose: 25 mg Documented by: Tiotropium [place] (Spiriva Respimat) 2 puff IH DAILY [facility] Last Admin: 05/27/20 09:07 Dose: 2 puff Documented by: - Objective Vital Signs: Vital Signs Temperature 98.5 F 05/27/20 18:00 Pulse Rate 82 05/27/20 18:00 Respiratory Rate 20 05/27/20 18:00 Blood Pressure 100/59 L 05/27/20 18:00 O2 Sat by Pulse Oximetry (%) 98 05/27/20 07:59 Constitutional: Yes: Obese Neck: Yes: WNL, Supple Cardiovascular: Yes: WNL, Regular Rate and Rhythm Respiratory: Yes: Diminished Gastrointestinal: Yes: WNL, Normal Bowel Sounds, Soft Labs: CBC, BMP 05/26/20 06:56 05/27/20 17:10 INR, PTT INR 1.65 (0.83-1.09) H 05/23/20 20:58 Problem List - Problems (1) Acute on chronic systolic (congestive) heart failure Code(s): I50.23 - ACUTE ON CHRONIC SYSTOLIC (CONGESTIVE) HEART FAILURE (2) CAD (coronary artery disease) Code(s): I25.10 - ATHSCL HEART DISEASE OF [place] CORONARY ARTERY W/O ANG PCTRS (3) COPD exacerbation Code(s): J44.1 - CHRONIC OBSTRUCTIVE PULMONARY DISEASE W (ACUTE) EXACERBATION (4) Diabetes Code(s): E11.9 - TYPE 2 DIABETES MELLITUS WITHOUT COMPLICATIONS (5) Hyperlipidemia Code(s): E78.5 - HYPERLIPIDEMIA, UNSPECIFIED (6) Hypertension Code(s): I10 - ESSENTIAL (PRIMARY) HYPERTENSION Qualifiers: (7) Hypothyroidism Code(s): E03.9 - HYPOTHYROIDISM, UNSPECIFIED (8) ICD (implantable cardioverter-defibrillator) in place Code(s): Z95.810 - PRESENCE OF AUTOMATIC (IMPLANTABLE) CARDIAC DEFIBRILLATOR (9) Morbid obesity Code(s): E66.01 - MORBID (SEVERE) OBESITY DUE TO EXCESS CALORIES (10) Paroxysmal A-fib Code(s): I48.0 - PAROXYSMAL ATRIAL FIBRILLATION (11) Sleep apnea Code(s): G47.30 - SLEEP APNEA, UNSPECIFIED
[2020-05-27] MEDS: MONTELUKAST NA 10 MG TABLET PO SCH (21:48)
[2020-05-28] MEDS: LEVOTHYROXINE NA 75 MCG TABLET (FP) PO SCH (06:48)
[2020-05-28] MEDS: INSULIN (LEVEMIR) 100 UNITS/ML UNITS SQ SCH (06:48)
[2020-05-28 06:59] LABS: CALCIUM 9.8 mg/dL (8.5-10.1); CREATININE 1.4 mg/dL (0.55-1.3); POTASSIUM 3.9 mmol/L (3.5-5.1)
--- NOTE | 2020-05-28 07:20 | PN ---
Progress Note, Physician Chief Complaint: sob - Current Medication List Current Medications: Active Medications Albuterol/Ipratropium (Duoneb -) 1 amp NEB Q6H PRN PRN Reason: SHORTNESS OF BREATH Apixaban (Eliquis -) 5 mg PO BID [facility] Last Admin: 05/27/20 21:48 Dose: 5 mg Documented by: Aspirin (Ecotrin -) 81 mg PO DAILY [facility] Last Admin: 05/27/20 09:07 Dose: 81 mg Documented by: Budesonide/Formoterol Fumarate (Symbicort 160/4.5mcg -) 2 puff IH BID [facility] Last Admin: 05/27/20 21:48 Dose: 2 puff Documented by: Insulin Detemir (Levemir Vial) 10 units SQ HS [facility]PL[facility] Last Admin: 05/27/20 21:48 Dose: 10 units Documented by: Insulin Detemir (Levemir Vial) 20 units SQ AM REPLACED BY [facility] Last Admin: 05/28/20 06:48 Dose: 20 units Documented by: Levothyroxine Sodium (Synthroid -) 75 mcg PO DAILY@0700 [facility]PL[facility] Last Admin: 05/28/20 06:48 Dose: 75 mcg Documented by: Metoprolol Succinate (Toprol Xl -) 25 mg PO DAILY [facility] Last Admin: 05/27/20 09:06 Dose: 25 mg Documented by: Montelukast Sodium (Singulair -) 10 mg PO HS [facility]PL[facility] Last Admin: 05/27/20 21:48 Dose: 10 mg Documented by: Pantoprazole Sodium (Protonix -) 40 mg PO DAILY [facility]PL[facility] BY [facility] Last Admin: 05/27/20 09:07 Dose: 40 mg Documented by: Sacubitril/Valsartan (Entresto 24 Mg-26 Mg Tablet) 1 tab PO BID [facility]PL[facility] BY [facility] Last Admin: 05/27/20 21:48 Dose: 1 tab Documented by: Spironolactone (Aldactone -) 25 mg PO DAILY [facility]PL[facility] BY [facility] Last Admin: 05/27/20 09:06 Dose: 25 mg Documented by: Tiotropium [place] (Spiriva Respimat) 2 puff IH DAILY REPLACED BY [facility] Last Admin: 05/27/20 09:07 Dose: 2 puff Documented by: - Objective Vital Signs: Vital Signs Temperature 97.7 F 05/28/20 06:00 Pulse Rate 83 05/28/20 06:00 Respiratory Rate 20 05/28/20 06:00 Blood Pressure 102/66 05/28/20 06:00 O2 Sat by Pulse Oximetry (%) 100 05/28/20 00:27 Labs: CBC, BMP 05/26/20 06:56 05/28/20 05:43 INR, PTT INR 1.65 (0.83-1.09) H 05/23/20 20:58 Assessment/Plan Cardiac Catheterization 2018 non-obstructive CAD echo 05/2019 tds, mildly dilated LV, severe global hypok, RV nl CXR: clear lungs/pleura EKG: sinus, LBBB tele: NSR, NSVT x 4b shortness of breath: - may be multifactorial (as on multiple prior admist)- elevated BNP compared to prior and swelling suggest component of CHF exac now resolved, no more sob - home lasix = 20mg qd, received 40 IV qd here. - bun/cr bumped 05/26, lasix held--numbers trended down. resume lasix 20 PO daily. ok for d/c - manage asthma/COPD per pulm - given mult prior admits with sob and equivocal clinical picture (co-existing CHF and lung dz), morbid obesity complicating physical exam assessment of volume status, and repeated labile creatinine fluctuations with diuresis attempts, would consider Cardiomems implant here to guide diuretic therapy going forward and minimize recurrent HF hospitalization. acute chronic systolic HF, s/p ICD: resolved. - cont entresto, spironolactone, metoprolol = home regimen - outpatient ICD monitoring - f/u labs--replete K/Mg to > 4/2 elevated trop: - indeterminate range, flat trend - similar to prior values - unlikely ACS copd/asthma: - manage per pulm HTN: - bp controlled - same meds paroxysmal afib - in sinus --cont home bb - cont home eliquis for AC (5 bid) HLD - cont statin CARDIOLOGICALLY READY FOR DISCHARGE. D/C TELE
[2020-05-28 08:30] VITALS: BP 100/54; PULSE 80; TEMP 98
[2020-05-28] MEDS: ASPIRIN COATED 81 MG TABLET.EC PO SCH (09:05)
[2020-05-28] MEDS: PANTOPRAZOLE 40 MG TABLET PO SCH (09:05)
[2020-05-28] MEDS: SPIRONOLACTONE 25 MG TABLET PO SCH (09:05)
[2020-05-28] MEDS: TIOTROPIUM BROMIDE 2.5 MCG (SPIRIVA) RESPIMAT INHALER IH SCH (09:06)
[2020-05-28] MEDS: metoPROLOL SUCCINATE 25 MG TAB.SR.24H (FP) PO SCH (09:06)
[2020-05-28] MEDS: APIXABAN 5 MG TABLET PO SCH (09:06)
[2020-05-28] MEDS: BUDESONIDE/FORMETEROL FUMARATE 160/4.5 mcg INHALER IH SCH (09:06)
[2020-05-28] MEDS: SACUBITRIL/VALSARTAN 24 MG-26 MG TABLET PO SCH (09:06)
[2020-05-28] MEDS ORDERED: FUROSEMIDE 20 MG TABLET (FP) PO SCH (10:00)
--- NOTE | 2020-05-28 11:26 | PN ---
Progress Note (short form) - Note Progress Note: PULMONARY RESTING COMFORTABLE VSS/AFEBRILE BIPAP AT BEDSIDE SP02 98 r/a Constitutional: Yes: No Distress, Obese Eyes: Yes: Conjunctiva Clear, EOM Intact HENT: Yes: Atraumatic, Normocephalic Neck: Yes: Supple Cardiovascular: Yes: Regular Rate and Rhythm Respiratory: Yes: Cough, Diminished, Rales, Rhonchi, SOB, SOB on Exertion, Wheezes. No: Accessory Muscle Use, Stridor, Tachypnea ...Inspection: Yes: WNL ...Clubbing: No Gastrointestinal: Yes: Normal Bowel Sounds, Soft, Abdomen, Obese Renal/: Yes: WNL Breast(s): Yes: Nipple Inversion Extremities: Yes: WNL, Erythema Peripheral Pulses WNL: Yes Integumentary: Yes: WNL Neurological: Yes: WNL, Alert, Oriented ...Motor Strength: WNL Labs: NOTED CR 1.3 NOW 1.9 CXR: CARDIOMEGALY/AICD/B/L CONGESTIVE CHANGES Problem List - Problems (1) Shortness of breath at rest Code(s): R06.02 - SHORTNESS OF BREATH (2) Acute on chronic systolic (congestive) heart failure Code(s): I50.23 - ACUTE ON CHRONIC SYSTOLIC (CONGESTIVE) HEART FAILURE (3) CAD (coronary artery disease) Code(s): I25.10 - ATHSCL HEART DISEASE OF [place] CORONARY ARTERY W/O ANG PCTRS (4) CHF exacerbation Code(s): I50.9 - HEART FAILURE, UNSPECIFIED (5) COPD (chronic obstructive pulmonary disease) Code(s): J44.9 - CHRONIC OBSTRUCTIVE PULMONARY DISEASE, UNSPECIFIED (6) COPD exacerbation Code(s): J44.1 - CHRONIC OBSTRUCTIVE PULMONARY DISEASE W (ACUTE) EXACERBATION (7) Cardiomyopathy Code(s): I42.9 - CARDIOMYOPATHY, UNSPECIFIED (8) Chronic systolic CHF (congestive heart failure), NYHA class 3 Code(s): I50.22 - CHRONIC SYSTOLIC (CONGESTIVE) HEART FAILURE (9) Controlled diabetes mellitus with diabetic peripheral angiopathy without gangrene Code(s): E11.51 - TYPE 2 DIABETES W DIABETIC PERIPHERAL ANGIOPATH W/O GANGRENE (10) Cough Code(s): R05 - COUGH (11) Diabetes Code(s): E11.9 - TYPE 2 DIABETES MELLITUS WITHOUT COMPLICATIONS (12) Dyspnea Code(s): R06.00 - DYSPNEA, UNSPECIFIED (13) Hyperlipidemia Code(s): E78.5 - HYPERLIPIDEMIA, UNSPECIFIED (14) Hypertension Code(s): I10 - ESSENTIAL (PRIMARY) HYPERTENSION Qualifiers: (15) Hypothyroidism Code(s): E03.9 - HYPOTHYROIDISM, UNSPECIFIED (16) ICD (implantable cardioverter-defibrillator) in place Code(s): Z95.810 - PRESENCE OF AUTOMATIC (IMPLANTABLE) CARDIAC DEFIBRILLATOR (17) Paroxysmal A-fib Code(s): I48.0 - PAROXYSMAL ATRIAL FIBRILLATION (18) Sleep apnea Code(s): G47.30 - SLEEP APNEA, UNSPECIFIED Assessment/Plan Diuretics Short course of Medrol will be d/maite BD TX Symbicort BID Supplemental O2 as needed Patient will have her AVAPS device optimized by her outpatient Sleep doctor NIPPV as needed No smoking counseled Daily weights Discharge planning Vipul MIRELES MD
--- NOTE | 2020-05-28 13:34 | PN ---
Progress Note, Physician History of Present Illness: Pt seen and examined at bedside. She is awake and alert. She denies shortness of breath. - Current Medication List Current Medications: Active Medications Albuterol/Ipratropium (Duoneb -) 1 amp NEB Q6H PRN PRN Reason: SHORTNESS OF BREATH Apixaban (Eliquis -) 5 mg PO BID [facility] Last Admin: 05/28/20 09:06 Dose: 5 mg Documented by: Aspirin (Ecotrin -) 81 mg PO DAILY [facility] Last Admin: 05/28/20 09:05 Dose: 81 mg Documented by: Budesonide/Formoterol Fumarate (Symbicort 160/4.5mcg -) 2 puff IH BID [facility] Last Admin: 05/28/20 09:06 Dose: 2 puff Documented by: Furosemide (Lasix -) 20 mg PO DAILY [facility] Last Admin: 05/28/20 09:06 Dose: 20 mg Documented by: Insulin Detemir (Levemir Vial) 10 units SQ HS [facility] Last Admin: 05/27/20 21:48 Dose: 10 units Documented by: Insulin Detemir (Levemir Vial) 20 units SQ AM [facility] Last Admin: 05/28/20 06:48 Dose: 20 units Documented by: Levothyroxine Sodium (Synthroid -) 75 mcg PO DAILY@0700 [facility] Last Admin: 05/28/20 06:48 Dose: 75 mcg Documented by: Metoprolol Succinate (Toprol Xl -) 25 mg PO DAILY [facility] Last Admin: 05/28/20 09:06 Dose: 25 mg Documented by: Montelukast Sodium (Singulair -) 10 mg PO HS [facility] Last Admin: 05/27/20 21:48 Dose: 10 mg Documented by: Pantoprazole Sodium (Protonix -) 40 mg PO DAILY [facility] Last Admin: 05/28/20 09:05 Dose: 40 mg Documented by: Sacubitril/Valsartan (Entresto 24 Mg-26 Mg Tablet) 1 tab PO BID [facility] Last Admin: 05/28/20 09:06 Dose: 1 tab Documented by: Spironolactone (Aldactone -) 25 mg PO DAILY [facility] Last Admin: 05/28/20 09:05 Dose: 25 mg Documented by: Tiotropium [place] (Spiriva Respimat) 2 puff IH DAILY [facility] Last Admin: 05/28/20 09:06 Dose: 2 puff Documented by: - Objective Vital Signs: Vital Signs Temperature 98.0 F 05/28/20 08:29 Pulse Rate 80 05/28/20 08:29 Respiratory Rate 20 05/28/20 08:29 Blood Pressure 100/54 L 05/28/20 08:29 O2 Sat by Pulse Oximetry (%) 100 05/28/20 08:29 Constitutional: Yes: Calm Eyes: Yes: Conjunctiva Clear HENT: Yes: Atraumatic Cardiovascular: Yes: S1, S2 Respiratory: Yes: CTA Bilaterally Gastrointestinal: Yes: Soft, Abdomen, Obese Genitourinary: Yes: WNL Musculoskeletal: Yes: WNL Edema: No Neurological: Yes: Oriented Psychiatric: Yes: Oriented Labs: CBC, BMP 05/26/20 06:56 05/28/20 05:43 INR, PTT INR 1.65 (0.83-1.09) H 05/23/20 20:58 Problem List - Problems (1) Shortness of breath at rest Code(s): R06.02 - SHORTNESS OF BREATH (2) MU (acute kidney injury) Code(s): N17.9 - ACUTE KIDNEY FAILURE, UNSPECIFIED Assessment/Plan Current Medications Generic Name Dose Route Start Last Admin Trade Name Freq PRN Reason Stop Dose Admin Albuterol/Ipratropium 1 amp 05/23/20 23:59 Duoneb - NEB Q6H PRN SHORTNESS OF BREATH Apixaban 5 mg 05/24/20 10:00 05/28/20 09:06 Eliquis - PO 5 mg BID DOM Administration Aspirin 81 mg 05/24/20 10:00 05/28/20 09:05 Ecotrin - PO 81 mg DAILY DOM Administration Budesonide/Formoterol Fumarate 2 puff 05/24/20 10:00 05/28/20 09:06 Symbicort 160/4.5mcg - IH 2 puff BID DOM Administration Furosemide 20 mg 05/28/20 10:00 05/28/20 09:06 Lasix - PO 20 mg DAILY DOM Administration Insulin Detemir 10 units 05/24/20 22:00 05/27/20 21:48 Levemir Vial SQ 10 units HS DOM Administration Insulin Detemir 20 units 05/24/20 07:00 05/28/20 06:48 Levemir Vial SQ 20 units AM DOM Administration Levothyroxine Sodium 75 mcg 05/24/20 07:00 05/28/20 06:48 Synthroid - PO 75 mcg DAILY@0700 DOM Administration Metoprolol Succinate 25 mg 05/24/20 10:00 05/28/20 09:06 Toprol Xl - PO 25 mg DAILY DOM Administration Montelukast Sodium 10 mg 05/24/20 22:00 05/27/20 21:48 Singulair - PO 10 mg HS DOM Administration Pantoprazole Sodium 40 mg 05/24/20 10:00 05/28/20 09:05 Protonix - PO 40 mg DAILY DOM Administration Sacubitril/Valsartan 1 tab 05/26/20 10:00 05/28/20 09:06 Entresto 24 Mg-26 Mg Tablet PO 1 tab BID [facility] Administration Spironolactone 25 mg 05/24/20 10:00 05/28/20 09:05 Aldactone - PO 25 mg DAILY DOM Administration Tiotropium [place] 2 puff 05/24/20 10:00 05/28/20 09:06 Spiriva Respimat IH 2 puff DAILY DOM Administration Impression 1. ckd 2. dyspnea 3. asthma 4. chf 5. obesity 6. hypotension 7. a-fib 8. MU Plan - pt on lasix and aldactone - will restart potassium supplements - monitor lytes on entresto - repeat labs in am
[2020-05-28] MEDS ORDERED: PT OWN MED DRAWER 7, Y5N ONE (13:37)
[2020-05-28] MEDS ORDERED: POTASSIUM CHLORIDE TABS 10 MEQ TABLET.ER (FP) PO SCH (13:45)
--- NOTE | 2020-06-05 00:23 | DS ---
Physical Examination Vital Signs: Vital Signs Temperature 98.0 F 05/28/20 08:29 Pulse Rate 80 05/28/20 08:29 Respiratory Rate 20 05/28/20 08:29 Blood Pressure 100/54 L 05/28/20 08:29 O2 Sat by Pulse Oximetry (%) 100 05/28/20 08:29 Labs: CBC, BMP 05/26/20 06:56 05/28/20 05:43 Discharge Summary Problems reviewed: Yes Reason For Visit: CHRONIC SYSTOLIC CHF,NYHA CLASS 3,COPD Acute on chronic CHF COPD exacerbation HTN HLD Diabetes Hypothyroidism Paroxysmal Afib Sleep apnea Morbid obesity Anemia Hospital Course: 60 yo F with a hx nonischemic Cardiomyopathy (s/p pacemaker), CHF ( EF 20-25%), COPD/Asthma, Afib (eliquis),HTN, DM,CKD (cr 1-1.3), HLD, CAD, hypothyroidism presented to the emergency department with SOB and chest pain. Pt was admitted to [facility] and seen by pulmonary and cardio consults. Pt was treated for acute on chronic CHF w/ IV lasix. Pt was also started on IV steroids/inhalers for COPD exacerbation. Condition: Good - Instructions Diet, Activity, Other Instructions: 2 gram sodium and diabetic diet See Dr Reece Lanza in 1 week See your project officer Referrals: Reece Lanza MD [Primary Care Provider] - Disposition: HOME - Home Medications Comprehensive Discharge Medication List: Ambulatory Orders Insulin Glargine,Hum.rec.anlog [Lantus Solostar PEN -] 20 units SQ AM 08/09/16 Budesonide/Formeterol Fumarate [SYMBICORT 160/4.5mcg -] 2 puff PO BID 10/14/16 Albuterol 2.5/Ipratropium 0.5 [Duoneb -] 1 amp NEB Q6H PRN #90 amp 05/21/19 Levothyroxine [Synthroid -] 75 mcg PO DAILY #30 tablet 05/21/19 Insulin Glargine,Hum.rec.anlog [Lantus Solostar PEN -] 10 units SQ HS 08/13/19 Metoprolol Succinate [Toprol XL -] 25 mg PO DAILY 10/10/19 Apixaban [Eliquis -] 5 mg PO BID 11/02/19 Linaclotide [Linzess] 290 mcg PO DAILY 11/02/19 Sacubitril/Valsartan [Entresto 24 mg-26 mg Tablet] 1 each PO ASDIR 11/02/19 Furosemide [Lasix -] 20 mg PO DAILY #30 tablet 11/06/19 Albuterol 0.083% Nebulizer Jyothi [Ventolin 0.083% Nebulizer Soln -] 1 amp NEB Q4H PRN amp 12/13/19 Spironolactone [Aldactone -] 25 mg PO DAILY tablet 12/13/19 Aspirin Coated [Ecotrin -] 81 mg PO DAILY #30 tablet.ec 12/27/19 Potassium Chloride 10 meq PO DAILY 01/15/20 Pregabalin [Lyrica -] 25 mg PO BID 01/15/20 Tiotropium [place] [Spiriva Respimat] 2 puff IH DAILY #1 mist.inhal 01/15/20 Albuterol 0.083% Nebulizer Jyothi [Ventolin 0.083% Nebulizer Soln -] 1 amp NEB Q4H PRN #0 amp 01/20/20 Furosemide [Lasix -] 20 mg PO DAILY #30 tablet 01/20/20 Montelukast Na [Singulair -] 10 mg PO HS #30 tablet 01/20/20 Pantoprazole Sodium [Protonix -] 40 mg PO DAILY #30 tablet.ec 01/20/20 Potassium Chloride [K-Dur -] 10 meq PO DAILY #30 tablet.er 01/20/20 Furosemide [Lasix -] 20 mg PO DAILY tablet 02/23/20 Ondansetron [Zofran *Odt*] 4 mg SL TID PRN #10 od.tablet 03/04/20 Furosemide [Lasix -] 20 mg PO DAILY tablet 05/28/20 Sacubitril/Valsartan [Entresto 24 mg-26 mg Tablet] 1 tab PO BID #60 tablet 05/28/20
== END 2020-05-28 13:50 | disposition home or self-care (01) | DRG 291 ==
LOC: JER 19:09 → JERBED 22:28 → J4W 05-24 15:37
PROVIDERS: ADMIT Internal Medicine; ATTEND Internal Medicine
DX: I13.0 Hypertensive heart and chronic kidney disease with heart failure and stage 1 through stage 4 chronic kidney disease, or unspecified chronic kidney disease (principal); I50.33 Acute on chronic diastolic (congestive) heart failure; J44.1 Chronic obstructive pulmonary disease with (acute) exacerbation; Z68.41 Body mass index [BMI] 40.0-44.9, adult; N17.9 Acute kidney failure, unspecified; I47.1 Supraventricular tachycardia; N18.9 Chronic kidney disease, unspecified; E11.22 Type 2 diabetes mellitus with diabetic chronic kidney disease; E11.51 Type 2 diabetes mellitus with diabetic peripheral angiopathy without gangrene; E66.01 Morbid (severe) obesity due to excess calories; I25.10 Atherosclerotic heart disease of native coronary artery without angina pectoris; I42.8 Other cardiomyopathies; I48.0 Paroxysmal atrial fibrillation; E78.5 Hyperlipidemia, unspecified; I95.9 Hypotension, unspecified; E03.9 Hypothyroidism, unspecified; G47.33 Obstructive sleep apnea (adult) (pediatric); D64.9 Anemia, unspecified
CPT/HCPCS: 36415; 71045-TC-FY; 80048; 80053; 82550; 82553; 82962; 83690; 83735; 83880; 84484; 85025; 85610; 85730; 90732; 93005; 93010; 94660; 99285-25; G0009; U0003

== ENCOUNTER 2020-07-05 15:06 | Inpatient (IN) | payer OTHER ==
[2020-07-05] MEDS ORDERED: NITROGLYCERIN SUBLINGUAL 1/150 0.4 MG TAB SL ONE (15:39)
[2020-07-05] MEDS ORDERED: ASPIRIN 325 MG ENTERIC COATED TABLET (FP) PO ONE (15:39)
[2020-07-05] MEDS ORDERED: ASPIRIN 81 MG CHEWABLE TABLETS ONE (15:43)
[2020-07-05] MEDS ORDERED: NITROGLYCERIN SUBLINGUAL 1/150 0.4 MG TAB ONE (15:44)
--- NOTE | 2020-07-05 16:12 | PDOC ---
History of Present Illness - General Chief Complaint: Congestive Heart Failure Stated Complaint: SOB - History of Present Illness Initial Comments: 07/05/20 15:40 60 F with hx chronic systolic CHF (20-25), nonischemic myocardiopathy, afib on eliquis, HTN, DM, CKD, Hypothyrodism BIBA from home for chest pain and SOB. It started out three days ago, she has sudden chest pain, sudden onset, non- exertional, feel like an elephant, took 81 mg aspirin, and also endorses , wheeze, SOB, abdoment swelling, fingers swelling. She took lasix pill and it helps with the swelling. She denies leg swelling. Today, she endorses chest pain still and SOB, wheeze, hence, she used her CPAP machine and didn't help. That's why she is here. Patient sleeps with 4 pillow, and endorses, sneezing. On the way here by ambulance, patient vital sign was stable. BP 130/80s, on 4 L oxygen. They gave her 1 nitro and it seems to help. Patient admitted to have recent reduction of lasix dosage from 40 to 20. Patient has been intubated and stayed in ICU in december. Patient denies hx of blood clot, and recent travel or COVID symptoms. Patient denies N/V/Fever, lower legs extremity swelling. PMHX: as in HPI PSHX: hysterectomy. Meds: homemeds/ on eliquis, aspirin. Allergies: Tob: Etoh: Rec drugs: PCP: JUAN ALBERTO ROS GENERAL/CONSTITUTIONAL: No fever or chills. No weakness. HEAD, EYES, EARS, NOSE AND THROAT: No change in vision. No ear pain or discharge. No sore throat. CARDIOVASCULAR: + chest pain and shortness of breath RESPIRATORY: + cough, wheezing, no hemoptysis. GASTROINTESTINAL: No nausea, vomiting, diarrhea or constipation. GENITOURINARY: No dysuria, frequency, or change in urination. MUSCULOSKELETAL: No neck or back pain. +arms muscle swelling SKIN: No rash NEUROLOGIC: No headache, vertigo, loss of consciousness, or change in strength/sensation. ENDOCRINE: No increased thirst. No abnormal weight change HEMATOLOGIC/LYMPHATIC: No anemia, easy bleeding, or history of blood clots. ALLERGIC/IMMUNOLOGIC: No hives or skin allergy. PE GENERAL: Awake, alert, and fully oriented, in moderate acute distress, morbidly obese on BIPAP HEAD: No signs of trauma, normocephalic, atraumatic EYES: PERRLA, EOMI, sclera anicteric, conjunctiva clear ENT: Auricles normal inspection, hearing grossly normal, nares patent, oropharynx clear without exudates. Moist mucosa NECK: Normal ROM, supple, no lymphadenopathy, hard to assess JVD due to body habitus. LUNGS: crackles bilat, pleuritic breathing. HEART: IRRegular rate and rhythm, normal S1 and S2, peripheral pulses weak and thready. ABDOMEN: Soft, extended, normoactive bowel sounds. No guarding, no rebound. No masses. abdomen swelling. EXTREMITIES : Normal inspection, Normal range of motion, no edema on legs. No clubbing or cyanosis. fingers swelling NEUROLOGICAL: Cranial nerves II through XII grossly intact. Normal speech, no focal sensorimotor deficits SKIN: Warm, Dry, normal turgor, no rashes or lesions noted Past History - Medical History Allergies/Adverse Reactions: Allergies Allergy/AdvReac Type Severity Reaction Status Date / Time tomato Allergy Mild Hives Verified 05/23/20 19:23 chlorpheniramine Allergy Verified 05/23/20 19:23 cimetidine Allergy Verified 05/23/20 19:23 codeine [Codeine] Allergy Verified 05/23/20 19:23 ibuprofen Allergy Verified 05/23/20 19:23 latex [Latex] Allergy Verified 05/23/20 19:23 Latex, Natural Rubber Allergy Verified 05/23/20 19:23 pseudoephedrine Allergy Verified 05/23/20 19:23 salmeterol xinafoate Allergy Verified 05/23/20 19:23 [From Advair Diskus] shellfish derived Allergy Verified 05/23/20 19:23 Sulfa (Sulfonamide Allergy Verified 03/03/20 23:49 Antibiotics) [Sulfa(Sulfonamide Antibiotics)] Chocolate Allergy Mild Hives Uncoded 03/03/20 23:49 shrimp Allergy Mild Hives Uncoded 03/03/20 23:49 Home Medications: Ambulatory Orders Insulin Glargine,Hum.rec.anlog [Lantus Solostar PEN -] 20 units SQ AM 08/09/16 Budesonide/Formeterol Fumarate [SYMBICORT 160/4.5mcg -] 2 puff PO BID 10/14/16 Albuterol 2.5/Ipratropium 0.5 [Duoneb -] 1 amp NEB Q6H PRN #90 amp 05/21/19 Levothyroxine [Synthroid -] 75 mcg PO DAILY #30 tablet 05/21/19 Insulin Glargine,Hum.rec.anlog [Lantus Solostar PEN -] 10 units SQ HS 08/13/19 Metoprolol Succinate [Toprol XL -] 25 mg PO DAILY 10/10/19 Apixaban [Eliquis -] 5 mg PO BID 11/02/19 Linaclotide [Linzess] 290 mcg PO DAILY 11/02/19 Sacubitril/Valsartan [Entresto 24 mg-26 mg Tablet] 1 each PO ASDIR 11/02/19 Furosemide [Lasix -] 20 mg PO DAILY #30 tablet 11/06/19 Albuterol 0.083% Nebulizer Jyothi [Ventolin 0.083% Nebulizer Soln -] 1 amp NEB Q4H PRN amp 12/13/19 Spironolactone [Aldactone -] 25 mg PO DAILY tablet 12/13/19 Aspirin Coated [Ecotrin -] 81 mg PO DAILY #30 tablet.ec 12/27/19 Potassium Chloride 10 meq PO DAILY 01/15/20 Pregabalin [Lyrica -] 25 mg PO BID 01/15/20 Tiotropium [place] [Spiriva Respimat] 2 puff IH DAILY #1 mist.inhal 01/15/20 Albuterol 0.083% Nebulizer Jyothi [Ventolin 0.083% Nebulizer Soln -] 1 amp NEB Q4H PRN #0 amp 01/20/20 Furosemide [Lasix -] 20 mg PO DAILY #30 tablet 01/20/20 Montelukast Na [Singulair -] 10 mg PO HS #30 tablet 01/20/20 Pantoprazole Sodium [Protonix -] 40 mg PO DAILY #30 tablet.ec 01/20/20 Potassium Chloride [K-Dur -] 10 meq PO DAILY #30 tablet.er 01/20/20 Furosemide [Lasix -] 20 mg PO DAILY tablet 02/23/20 Ondansetron [Zofran *Odt*] 4 mg SL TID PRN #10 od.tablet 03/04/20 Furosemide [Lasix -] 20 mg PO DAILY tablet 05/28/20 Sacubitril/Valsartan [Entresto 24 mg-26 mg Tablet] 1 tab PO BID #60 tablet 05/28/20 Anemia: Yes Asthma: Yes Cancer: No Cardiac Disorders: Yes (PR X 2, pacemaker) CVA: No COPD: Yes CHF: Yes (S/P ICD) DVT: No Dementia: No Diabetes: Yes GI Disorders: Yes (PEPTIC ULCER) Disorders: No HTN: Yes Hypercholesterolemia: Yes Liver Disease: No Psychiatric Problems: Yes (DEPRESSION) Seizures: No Thyroid Disease: Yes - Surgical History Abdominal Surgery: Yes Appendectomy: No Cardiac Surgery: Yes (pacemaker and stents) Cholecystectomy: Yes GI Surgery: Yes (CHOLECYSTECTOMY, HYSTERECTOMY) Lung Surgery: No Neurologic Surgery: No Orthopedic Surgery: Yes (bilateral knee replacement) - Reproductive History Is Patient Now?: No - Immunization History Immunization Up to Date: No - Psycho-Social/Smoking History Smoking Status: No Smoking History: Never smoked Have you smoked in the past 12 months: No Number of Cigarettes Smoked Daily: 0 Information on smoking cessation initiated: No - Substance Abuse Hx (Audit-C & DAST Scrn) How often the patient has a drink containing alcohol: Monthly or less How often the patient has six or more drinks on one occasion: Less than monthly Score: In Men: 4 or > Positive; In Women: 3 or > Positive: 2 Screen Result (Pos requires Nsg. Audit-10AR): Negative In the last yr the pt used illegal drug/Rx for NonMed reason: No Score: Yes response is considered Positive: 0 Screen Result (Positive result requires Nsg. DAST-10): Negative *Physical Exam - Vital Signs Last Vital Signs Temp Pulse Resp BP Pulse Ox 98.4 F 108 H 26 H 139/64 100 07/05/20 15:23 07/05/20 15:16 07/05/20 15:16 07/05/20 15:16 07/05/20 15:16 ED Treatment Course - LABORATORY CBC & Chemistry Diagram: 07/05/20 15:55 07/05/20 15:55 Medical Decision Making - Medical Decision Making 07/05/20 16:14 60 F with hx chronic systolic CHF (20-25), nonischemic myocardiopathy, afib on e liquis, HTN, DM, CKD, Hypothyrodism BIBA from home for chest pain and SOB ddx: CHF exacerbation vs PE vs pneumonia vs ACS vs dissection. RT put her on bipap ( 16/6 , Fio2 40, Rate 16) , Awaiting ABG at 1600. Patient BP run from 130s/80s, reassessed often. Sat well at 100% all the time. POCUS how hypokinetic muscles, EF 10%, bilat B lines. EKG was unchanaged from previous EKG, vent 108, sinus tachycardic, LBBB Patient was given 325mg Aspirin, and sublingual nitro 0.4 07/05/20 17:27 CT chest scan ordered non contrast, RT involved ( who got her ABG). Patient felt better after BIPAP. 07/05/20 18:38 Lab came back with high trop of 0.1, BNP elevated of 1241, normal WBC. CT Chest noncontrast show COVID vs pneumonitist Blood culture sent. Started on Doxycycline. Will admit for inpatient. Called Dr. AVENDANO 07/05/20 18:43 07/05/20 18:44 07/05/20 18:47 07/05/20 18:49 07/05/20 18:51 07/05/20 18:52 Discharge - Discharge Information Problems reviewed: Yes Clinical Impression/Diagnosis: COPD exacerbation Pneumonia Qualifiers: Pneumonia type: due to unspecified organism Laterality: unspecified laterality Lung location: unspecified part of lung Qualified Code(s): J18.9 - Pneumonia, unspecified organism Dyspnea Qualifiers: Dyspnea type: shortness of breath Qualified Code(s): R06.02 - Shortness of breath - Admission Yes - Follow up/Referral - Patient Discharge Instructions - Post Discharge Activity
[2020-07-05] MEDS ORDERED: ACETAMINOPHEN 1000 MG/100 ML VIAL (NON FORMULARY) IVPB ONE (16:23)
[2020-07-05] MEDS ORDERED: ACETAMINOPHEN INJECTION 100 ML IVPB ONE (16:40)
--- NOTE | 2020-07-05 16:50 | PDOC ---
Attending Attestation - Resident Resident Name: CarRenatoRomero - ED Attending Attestation I have performed the following: I have examined & evaluated the patient, The case was reviewed & discussed with the resident, I agree w/resident's findings & plan, Exceptions are as noted - HPI HPI: 07/05/20 16:47 60-year-old female with multiple comorbidities complains of substernal chest discomfort, pleuritic in nature, and shortness of breath that has increased in severity over the past several days. - Physicial Exam PE: 07/05/20 16:48 Patient is awake and alert, obese, mildly tachypneic, currently on BiPAP Normocephalic, atraumatic PERRLA, EOMI No JVD cta RRR Abdomen soft, nontender No significant lower extremity edema And O x3, moving all extremities symmetrically - Medical Decision Making 07/05/20 16:49 Patient 60-year-old female with multiple comorbidities, A. fib on Eliquis who presents with chest pain and shortness of breath. Differential diagnosis includes acute pulmonary edema versus ACS versus PE with Eliquis failure versus pneumonia. Will obtain CBC/CMP/cardiac profile. Will consider CT of chest without contrast. Bedside echo shows global hypokinesis with no evidence of right-sided heart strain. Likely admission. Discharge - Discharge Information Problems reviewed: Yes Clinical Impression/Diagnosis: COPD exacerbation Pneumonia Qualifiers: Pneumonia type: due to unspecified organism Laterality: unspecified laterality Lung location: unspecified part of lung Qualified Code(s): J18.9 - Pneumonia, unspecified organism Dyspnea Qualifiers: Dyspnea type: shortness of breath Qualified Code(s): R06.02 - Shortness of breath Condition: Good Disposition: HOME - Follow up/Referral - Patient Discharge Instructions - Post Discharge Activity
[2020-07-05 17:10] LABS: BASO % 0.3 % (0-2.0); EOS % 0.6 % (0-4.5); HEMATOCRIT 37.5 % (32.4-45.2); HEMOGLOBIN 11.8 GM/dL (10.7-15.3); LYMPH % 26.6 % (8-40); MCH 25.8 pg (25.7-33.7); MCHC 31.5 g/dl (32.0-36.0); MEAN CELL VOLUME 81.8 fl (80-96); MEAN PLT VOLUME 10.4 fl (7.5-11.1); MONO % 6.3 % (3.8-10.2); NEUT % 66.2 % (42.8-82.8); PLATELET COUNT 255 K/MM3 (134-434); RBC 4.58 M/mm3 (3.60-5.2); RDW 18.2 % (11.6-15.6); WHITE BLOOD COUNT 7.3 K/mm3 (4.0-10.0)
[2020-07-05] MEDS ORDERED: DOXYCYCLINE INJECTION 100 MG in DEXTROSE 5%-WATER - 100 ML IVPB ONE (17:19)
[2020-07-05 17:26] LABS: INR 1.2 (0.83-1.09); PROTHROMBIN TIME (PATIENT) 14.2 SEC (9.7-13.0)
[2020-07-05 17:26] LABS: ARTERIAL BLD GAS O2 SATURATION 99.1 mmHg (95-98); ARTERIAL BLOOD GAS BASE EXCESS -0.9 mmol/L (-2-2); ARTERIAL BLOOD GAS PO2 164.8 mmHg (80-100); ARTERIAL BLOOD GAS pH 7.402 (7.350-7.450)
[2020-07-05 17:29] LABS: ACTIVATED PTT 35.3 SECONDS (25.2-36.5)
[2020-07-05 17:29] LABS: ALLENS TEST POSITIVE; O2 CONTENT 98.2 % vol
[2020-07-05] MEDS ORDERED: DOXYCYCLINE HYCLATE 100 MG VIAL ONE (17:37)
[2020-07-05 17:48] LABS: ALBUMIN 3.5 g/dl (3.4-5.0); BILIRUBIN,TOTAL 0.3 mg/dL (0.2-1); BLOOD UREA NITROGEN 16.4 mg/dL (7-18); CALCIUM 8.9 mg/dL (8.5-10.1); CREATININE 1.1 mg/dL (0.55-1.3); MAGNESIUM 1.8 mg/dL (1.8-2.4); N-TERMINAL BNP 1241.5 pg/ml (5-125); POTASSIUM 3.8 mmol/L (3.5-5.1); TOT PROT 6.8 g/dl (6.4-8.2)
[2020-07-05] MEDS ORDERED: ALBUTEROL SO4 HFA INHALER IH PRN (22:57)
[2020-07-05] MEDS: SACUBITRIL/VALSARTAN 24 MG-26 MG TABLET PO SCH (23:56)
[2020-07-06 00:53] LABS: URINE APPEARANCE CLEAR; URINE BILIRUBIN NEGATIVE (NEGATIVE); URINE COLOR YELLOW; URINE GLUCOSE (UA) TRACE (NEGATIVE); URINE KETONE NEGATIVE (NEGATIVE); URINE LEUK ESTERASE NEGATIVE (NEGATIVE); URINE NITRITE NEGATIVE (NEGATIVE); URINE PROTEIN NEGATIVE (NEGATIVE); URINE UROBILINOGEN 0.2 mg/dL (0.2-1.0)
[2020-07-06] MEDS: LEVOTHYROXINE NA 75 MCG TABLET (FP) PO SCH (06:24)
[2020-07-06] MEDS: INSULIN (LEVEMIR) 100 UNITS/ML UNITS SQ SCH ×2 (06:24→23:02)
[2020-07-06 09:26] LABS: BASO % 0.1 % (0-2.0); EOS % 1.5 % (0-4.5); HEMATOCRIT 33.3 % (32.4-45.2); HEMOGLOBIN 10.4 GM/dL (10.7-15.3); LYMPH % 38.3 % (8-40); MCH 25.5 pg (25.7-33.7); MCHC 31.2 g/dl (32.0-36.0); MEAN CELL VOLUME 81.6 fl (80-96); MEAN PLT VOLUME 10.3 fl (7.5-11.1); NEUT % 53.1 % (42.8-82.8); PLATELET COUNT 225 K/MM3 (134-434); RBC 4.07 M/mm3 (3.60-5.2); RDW 17.7 % (11.6-15.6)
[2020-07-06 09:41] LABS: BILIRUBIN,TOTAL 0.5 mg/dL (0.2-1); BLOOD UREA NITROGEN 14.7 mg/dL (7-18); CALCIUM 8.9 mg/dL (8.5-10.1); CREATININE 1.1 mg/dL (0.55-1.3); POTASSIUM 3.7 mmol/L (3.5-5.1); TOT PROT 5.8 g/dl (6.4-8.2)
--- NOTE | 2020-07-06 10:14 | PN ---
Progress Note (short form) - Note Progress Note: PULMONARY CONSULTATION DICTATED 07/06/20
[2020-07-06] MEDS: DOXYCYCLINE INJECTION 100 MG in DEXTROSE 5%-WATER - 100 ML IVPB SCH ×2 (10:53→23:03)
[2020-07-06] MEDS: BUDESONIDE/FORMETEROL FUMARATE 160/4.5 mcg INHALER IH SCH ×2 (10:56→23:02)
[2020-07-06] MEDS: FUROSEMIDE 40 MG/4 ML INJECTABLE VIAL IVPUSH SCH (10:57)
[2020-07-06] MEDS: ASPIRIN COATED 81 MG TABLET.EC PO SCH (10:59)
[2020-07-06] MEDS: PREGABALIN 25 MG CAPSULE PO SCH ×2 (10:59→23:00)
[2020-07-06] MEDS: PANTOPRAZOLE 40 MG TABLET PO SCH (10:59)
[2020-07-06] MEDS: APIXABAN 5 MG TABLET PO SCH ×2 (10:59→22:59)
[2020-07-06] MEDS: POTASSIUM CHLORIDE TABS 10 MEQ TABLET.ER (FP) PO SCH (10:59)
[2020-07-06] MEDS: SPIRONOLACTONE 25 MG TABLET PO SCH (11:00)
[2020-07-06] MEDS: SACUBITRIL/VALSARTAN 24 MG-26 MG TABLET PO SCH ×2 (11:00→23:00)
[2020-07-06] MEDS: metoPROLOL SUCCINATE 25 MG TAB.SR.24H (FP) PO SCH (11:01)
--- NOTE | 2020-07-06 11:07 | CON.PULM ---
Consult Consult Specialty:: PULMONARY Referred by:: ANTONINO Reason for Consultation:: ABN CT CHEST - History of Present Illness Chief Complaint: SOB/HAND AND ANKLE EDEMA/CP History of Present Illness: 60 F with hx chronic systolic CHF (20-25), nonischemic myocardiopathy, afib on eliquis, HTN, DM, CKD, Hypothyrodism BIBA from home for chest pain and SOB. It started out three days ago, she had sudden chest pain, non-exertional, pressure like pain, also endorses , wheeze, SOB, abdominal swelling. Of note is a decrease in lasix from 40 to 20 mg. 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 Cardio/Vascular: Yes: CHF, HTN, Hyperlipdemia Pulmonary: Yes: Asthma, Bronchitis, Pneumonia, Pulmonary Embolus, Sleep Apnea Gastrointestinal: Yes: Other (multiple incisional hernias) ...: No Heme/Onc: Yes: Anemia Endocrine: Yes: Diabetes Mellitus, Hypothyroidism - Past Surgical History Past Surgical History: Yes: Cholecystectomy, Joint Replacement (left tkr), Permanent Pacemaker (ICD) - Alcohol/Substance Use Hx Alcohol Use: No - Smoking History Smoking history: Never smoked Have you smoked in the past 12 months: No Aproximately how many cigarettes per day: 0 - Social History Usual Living Arrangement: With Spouse ADL: Independent Place of : [facility] History of Recent Travel: No Home Medications - Allergies Allergies/Adverse Reactions: Allergies Allergy/AdvReac Type Severity Reaction Status Date / Time tomato Allergy Mild Hives Verified 05/23/20 19:23 chlorpheniramine Allergy Verified 05/23/20 19:23 cimetidine Allergy Verified 05/23/20 19:23 codeine [Codeine] Allergy Verified 05/23/20 19:23 ibuprofen Allergy Verified 05/23/20 19:23 latex [Latex] Allergy Verified 05/23/20 19:23 Latex, Natural Rubber Allergy Verified 05/23/20 19:23 pseudoephedrine Allergy Verified 05/23/20 19:23 salmeterol xinafoate Allergy Verified 05/23/20 19:23 [From Advair Diskus] shellfish derived Allergy Verified 05/23/20 19:23 Sulfa (Sulfonamide Allergy Verified 03/03/20 23:49 Antibiotics) [Sulfa(Sulfonamide Antibiotics)] Chocolate Allergy Mild Hives Uncoded 03/03/20 23:49 shrimp Allergy Mild Hives Uncoded 03/03/20 23:49 - Home Medications Home Medications: Ambulatory Orders Insulin Glargine,Hum.rec.anlog [Lantus Solostar PEN -] 20 units SQ AM 08/09/16 Budesonide/Formeterol Fumarate [SYMBICORT 160/4.5mcg -] 2 puff PO BID 10/14/16 Albuterol 2.5/Ipratropium 0.5 [Duoneb -] 1 amp NEB Q6H PRN #90 amp 05/21/19 Levothyroxine [Synthroid -] 75 mcg PO DAILY #30 tablet 05/21/19 Insulin Glargine,Hum.rec.anlog [Lantus Solostar PEN -] 10 units SQ HS 08/13/19 Metoprolol Succinate [Toprol XL -] 25 mg PO DAILY 10/10/19 Apixaban [Eliquis -] 5 mg PO BID 11/02/19 Linaclotide [Linzess] 290 mcg PO DAILY 11/02/19 Sacubitril/Valsartan [Entresto 24 mg-26 mg Tablet] 1 each PO ASDIR 11/02/19 Furosemide [Lasix -] 20 mg PO DAILY #30 tablet 11/06/19 Albuterol 0.083% Nebulizer Jyothi [Ventolin 0.083% Nebulizer Soln -] 1 amp NEB Q4H PRN amp 12/13/19 Spironolactone [Aldactone -] 25 mg PO DAILY tablet 12/13/19 Aspirin Coated [Ecotrin -] 81 mg PO DAILY #30 tablet.ec 12/27/19 Potassium Chloride 10 meq PO DAILY 01/15/20 Pregabalin [Lyrica -] 25 mg PO BID 01/15/20 Tiotropium [place] [Spiriva Respimat] 2 puff IH DAILY #1 mist.inhal 01/15/20 Albuterol 0.083% Nebulizer Jyothi [Ventolin 0.083% Nebulizer Soln -] 1 amp NEB Q4H PRN #0 amp 01/20/20 Furosemide [Lasix -] 20 mg PO DAILY #30 tablet 01/20/20 Montelukast Na [Singulair -] 10 mg PO HS #30 tablet 01/20/20 Pantoprazole Sodium [Protonix -] 40 mg PO DAILY #30 tablet.ec 01/20/20 Potassium Chloride [K-Dur -] 10 meq PO DAILY #30 tablet.er 01/20/20 Furosemide [Lasix -] 20 mg PO DAILY tablet 02/23/20 Ondansetron [Zofran *Odt*] 4 mg SL TID PRN #10 od.tablet 03/04/20 Furosemide [Lasix -] 20 mg PO DAILY tablet 05/28/20 Sacubitril/Valsartan [Entresto 24 mg-26 mg Tablet] 1 tab PO BID #60 tablet 05/28/20 Family Medical History Family History: Unremarkable Review of Systems - Review of Systems Constitutional: denies: Fever Eyes: denies: Blurred Vision HENT: denies: Difficult Swallowing Neck: denies: Decreased ROM Cardiovascular: reports: Chest Pain, Edema, Shortness of Breath Respiratory: reports: Exercise Intolerance, SOB, SOB on Exertion, Wheezing. denies: Hemoptysis Gastrointestinal: reports: Other (abdominal swelling). denies: Abdominal Pain Genitourinary: reports: No Symptoms Breasts: reports: No Symptoms Reported Musculoskeletal: reports: No Symptoms Integumentary: reports: No Symptoms Physical Exam Vital Sings: Vital Signs Temperature 98.0 F 07/06/20 09:00 Pulse Rate 84 07/06/20 09:00 Respiratory Rate 18 07/06/20 09:00 Blood Pressure 99/51 L 07/06/20 10:45 O2 Sat by Pulse Oximetry (%) 100 07/06/20 09:00 Constitutional: Yes: Calm Eyes: Yes: EOM Intact HENT: Yes: Normocephalic Neck: Yes: Trachea Midline Cardiovascular: Yes: S1, S2 Respiratory: Yes: CTA Bilaterally Gastrointestinal: Yes: Normal Bowel Sounds, Soft, Other (incisional hernia) Renal/: Yes: WNL Edema: LUE: 1+, RUE: 1+, LLE: 1+, RLE: 1+ Neurological: Yes: Alert Labs: CBC, BMP 07/06/20 07:07 07/06/20 07:07 ABG Results ABG pH 7.402 (7.350-7.450) 07/05/20 16:52 ABG HCO3 23.7 mmol/L (22-27) 07/05/20 16:52 ABG O2 Sat (Measured) 99.1 mmHg (95-98) H 07/05/20 16:52 ABG O2 Content 98.2 % vol 07/05/20 16:52 ABG Base Excess -0.9 mmol/L (-2-2) 07/05/20 16:52 rest reviewed Imaging - Results Cat Scan: Report Reviewed, Image Reviewed Problem List - Problems (1) Dyspnea Code(s): R06.00 - DYSPNEA, UNSPECIFIED Qualifiers: Dyspnea type: shortness of breath Qualified Code(s): R06.02 - Shortness of breath; R06.00 - Dyspnea, unspecified; R06.01 - Orthopnea (2) Acute on chronic systolic (congestive) heart failure Code(s): I50.23 - ACUTE ON CHRONIC SYSTOLIC (CONGESTIVE) HEART FAILURE (3) CAD (coronary artery disease) Code(s): I25.10 - ATHSCL HEART DISEASE OF [place] CORONARY ARTERY W/O ANG PCTRS (4) Cardiomyopathy Code(s): I42.9 - CARDIOMYOPATHY, UNSPECIFIED (5) Elevated troponin Code(s): R79.89 - OTHER SPECIFIED ABNORMAL FINDINGS OF BLOOD CHEMISTRY (6) ICD (implantable cardioverter-defibrillator) in place Code(s): Z95.810 - PRESENCE OF AUTOMATIC (IMPLANTABLE) CARDIAC DEFIBRILLATOR (7) Morbid obesity Code(s): E66.01 - MORBID (SEVERE) OBESITY DUE TO EXCESS CALORIES (8) Sleep apnea Code(s): G47.30 - SLEEP APNEA, UNSPECIFIED Assessment/Plan CT CHEST LIKELY REFLECTIVE OF VASCULAR CONGESTIVE CHANGES OPPOSED TO COVID-19 PNEUMONITIS WOULD CONTINUE DROPLET PRECAUTIONS CHECK COVID SWAB PENDING WOULD ADVISE CARDIOLOGY CONSULT PATIENT APPEARS COMFORTABLE OFF O2 SPO2 100 ON ROOM AIR CONTINUE INHALERS/DIURETICS/ANTICOAGULATION/ WILL FOLLOW Vipul MIRELES MD
[2020-07-06] MEDS ORDERED: PT OWN MED DRAWER 7, Y5N ONE (12:07)
[2020-07-06] MEDS: TIOTROPIUM BROMIDE 2.5 MCG (SPIRIVA) RESPIMAT INHALER IH SCH (12:10)
--- NOTE | 2020-07-06 14:52 | EKG ---
Test Reason : Blood Pressure : / mmHG Vent. Rate : 108 BPM Atrial Rate : 108 BPM P-R Int : 132 ms QRS Dur : 124 ms QT Int : 378 ms P-R-T Axes : 054 -19 093 degrees QTc Int : 506 ms POOR DATA QUALITY, INTERPRETATION MAY BE ADVERSELY AFFECTED SINUS TACHYCARDIA LEFT BUNDLE BRANCH BLOCK ABNORMAL ECG WHEN COMPARED WITH ECG OF 23-MAY-2020 19:33, PREMATURE VENTRICULAR COMPLEXES ARE NO LONGER PRESENT Confirmed by BLAYNE RUBY MD ([id number]) on 07/06/2020 2:51:46 PM Referred By: Confirmed By:BLAYNE RUBY MD
--- NOTE | 2020-07-06 15:24 | CON.CARD ---
Consult Consult Specialty:: cardiology Reason for Consultation:: chest pain; severe LV dysfunction; CAD risks - History of Present Illness Chief Complaint: Pt A&Ox3; resting; no chest pain or dyspnea History of Present Illness: is a 60-year-old black female with PMHx severe systolic CHF, (s/p ICD and coronary stent in 2009), A. fib on Eliquis, DM, morbid obesity (once weighed 540 lbs; lost nearly 300 lbs in the past few years through major change in diet); sleep apnea, HTN, HLD, chronic mild TNI elevation, chronic lower back pain with sciatica (pt still tries to walk every day), who presents with chest pain and shortness of breath for several days. When her asthma pump and CPAP did not help, she called 911. 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 Cardio/Vascular: Yes: CHF, HTN, Hyperlipdemia Pulmonary: Yes: Asthma, Bronchitis, Pneumonia, Pulmonary Embolus, Sleep Apnea Gastrointestinal: Yes: Other (multiple incisional hernias) Renal/: Yes: Renal Failure ...: No Heme/Onc: No: Anemia Endocrine: Yes: Diabetes Mellitus, Hypothyroidism - Past Surgical History Past Surgical History: Yes: Cholecystectomy, Joint Replacement (left tkr), Permanent Pacemaker (ICD) - Alcohol/Substance Use Hx Alcohol Use: No - Smoking History Smoking history: Never smoked Have you smoked in the past 12 months: No Aproximately how many cigarettes per day: 0 - Social History Usual Living Arrangement: With Spouse ADL: Independent History of Recent Travel: No Home Medications - Allergies Allergies/Adverse Reactions: Allergies Allergy/AdvReac Type Severity Reaction Status Date / Time tomato Allergy Mild Hives Verified 05/23/20 19:23 chlorpheniramine Allergy Verified 05/23/20 19:23 cimetidine Allergy Verified 05/23/20 19:23 codeine [Codeine] Allergy Verified 05/23/20 19:23 ibuprofen Allergy Verified 05/23/20 19:23 latex [Latex] Allergy Verified 05/23/20 19:23 Latex, Natural Rubber Allergy Verified 05/23/20 19:23 pseudoephedrine Allergy Verified 05/23/20 19:23 salmeterol xinafoate Allergy Verified 05/23/20 19:23 [From Advair Diskus] shellfish derived Allergy Verified 05/23/20 19:23 Sulfa (Sulfonamide Allergy Verified 03/03/20 23:49 Antibiotics) [Sulfa(Sulfonamide Antibiotics)] Chocolate Allergy Mild Hives Uncoded 03/03/20 23:49 shrimp Allergy Mild Hives Uncoded 03/03/20 23:49 - Home Medications Home Medications: Ambulatory Orders Insulin Glargine,Hum.rec.anlog [Lantus Solostar PEN -] 20 units SQ AM 08/09/16 Budesonide/Formeterol Fumarate [SYMBICORT 160/4.5mcg -] 2 puff PO BID 10/14/16 Albuterol 2.5/Ipratropium 0.5 [Duoneb -] 1 amp NEB Q6H PRN #90 amp 05/21/19 Levothyroxine [Synthroid -] 75 mcg PO DAILY #30 tablet 05/21/19 Insulin Glargine,Hum.rec.anlog [Lantus Solostar PEN -] 10 units SQ HS 08/13/19 Metoprolol Succinate [Toprol XL -] 25 mg PO DAILY 10/10/19 Apixaban [Eliquis -] 5 mg PO BID 11/02/19 Linaclotide [Linzess] 290 mcg PO DAILY 11/02/19 Sacubitril/Valsartan [Entresto 24 mg-26 mg Tablet] 1 each PO ASDIR 11/02/19 Furosemide [Lasix -] 20 mg PO DAILY #30 tablet 11/06/19 Albuterol 0.083% Nebulizer Jyothi [Ventolin 0.083% Nebulizer Soln -] 1 amp NEB Q4H PRN amp 12/13/19 Spironolactone [Aldactone -] 25 mg PO DAILY tablet 12/13/19 Aspirin Coated [Ecotrin -] 81 mg PO DAILY #30 tablet.ec 12/27/19 Potassium Chloride 10 meq PO DAILY 01/15/20 Pregabalin [Lyrica -] 25 mg PO BID 01/15/20 Tiotropium [place] [Spiriva Respimat] 2 puff IH DAILY #1 mist.inhal 01/15/20 Albuterol 0.083% Nebulizer Jyothi [Ventolin 0.083% Nebulizer Soln -] 1 amp NEB Q4H PRN #0 amp 01/20/20 Furosemide [Lasix -] 20 mg PO DAILY #30 tablet 01/20/20 Montelukast Na [Singulair -] 10 mg PO HS #30 tablet 01/20/20 Pantoprazole Sodium [Protonix -] 40 mg PO DAILY #30 tablet.ec 01/20/20 Potassium Chloride [K-Dur -] 10 meq PO DAILY #30 tablet.er 01/20/20 Furosemide [Lasix -] 20 mg PO DAILY tablet 02/23/20 Ondansetron [Zofran *Odt*] 4 mg SL TID PRN #10 od.tablet 03/04/20 Furosemide [Lasix -] 20 mg PO DAILY tablet 05/28/20 Sacubitril/Valsartan [Entresto 24 mg-26 mg Tablet] 1 tab PO BID #60 tablet 05/28/20 Review of Systems - Review of Systems Constitutional: reports: No Symptoms Eyes: reports: No Symptoms HENT: reports: No Symptoms Neck: reports: No Symptoms Cardiovascular: reports: Shortness of Breath Respiratory: reports: SOB Gastrointestinal: reports: No Symptoms Genitourinary: reports: No Symptoms Breasts: reports: No Symptoms Reported Musculoskeletal: reports: Back Pain, Muscle Weakness Integumentary: reports: No Symptoms Neurological: reports: No Symptoms Endocrine: reports: No Symptoms Hematology/Lymphatic: reports: No Symptoms Psychiatric: reports: No Symptoms - Risk Factors Known Risk Factors: Yes: Age, Diabetes Mellitus, Hypercholesterolemia, Hypertension, Race, Other (severe systolic CHF) Vital Signs: Vital Signs Temperature 98.5 F 07/06/20 14:00 Pulse Rate 94 H 07/06/20 14:00 Respiratory Rate 18 07/06/20 14:00 Blood Pressure 120/69 07/06/20 14:00 O2 Sat by Pulse Oximetry (%) 99 07/06/20 14:00 Constitutional: Yes: Calm, Obese Eyes: Yes: WNL HENT: Yes: WNL Neck: Yes: WNL Respiratory: Yes: Diminished Gastrointestinal: Yes: Soft, Abdomen, Obese Renal/: No: Anuria Cardiovascular: Yes: Tachycardia JVD: Yes Carotid Bruit: No PMI: Displaced Murmur: Yes: Systolic Murmur, Grade 2 Musculoskeletal: Yes: Back Pain, Joint Stiffness Extremities: Yes: Cool Edema: Yes Edema: LLE: 1+, RLE: 1+ Peripheral Pulses WNL: Yes Integumentary: Yes: WNL Neurological: Yes: WNL ...Motor Strength: WNL Psychiatric: Yes: WNL - Other Data Labs, Other Data: CBC, BMP 07/06/20 07:07 07/06/20 07:07 INR, PTT INR 1.20 (0.83-1.09) H 07/05/20 15:55 Troponin, BNP 07/05/20 07/06/20 07/06/20 15:55 00:01 07:07 Troponin I 0.10 H 0.10 H 0.10 H B-Natriuretic Peptide 1241.5 H Troponin, BNP 07/05/20 07/06/20 07/06/20 15:55 00:01 07:07 Troponin I 0.10 H 0.10 H 0.10 H B-Natriuretic Peptide 1241.5 H Abnormal Lab Results 07/06/20 07/06/20 07:07 07:07 Hgb 10.4 L MCH 25.5 L MCHC 31.2 L RDW 17.7 H Anion Gap 7 L Random Glucose 219 H AST 5 L ALT 8 L Troponin I 0.10 H Total Protein 5.8 L Albumin 3.0 L Echo: Report Reviewed Ejection Fraction %: LVEF < 40 % Imaging - Results Chest X-ray: Image Reviewed Cat Scan: Image Reviewed EKG: Image Reviewed Assessment/Plan Acute/chronic severe systolic CHF CT chest: groundglass (r/o CHF, small airways disease, pneumonitis) AF (initial EKG: sinus tachycardia; LBBB) HTN HLD chronic mild elevation of TNI anemia morbid obesity; sleep apnea chronic lower back pain Plan: COVID pending. Continue Entresto, metoprolol ER, spironolactone; furosemide IVP. On apixaban for AF anticoagulation. Serial TNI and EKGs. f/u BUN/Cr, electrolytes, daily weight, Is and Os. BNP, lipids, HGBA1c. TSH WNL F/u prior cardiac workup for ischemia. Addendum: Pt says she is a patient of Dr Mooney. His team will see her beginning tomorrow.
--- NOTE | 2020-07-06 19:28 | HP ---
Admitting History and Physical - Admission History of Present Illness: Pt is a 60 y/o female with PMH significant for severe systolic CHF, (s/p ICD and coronary stent in 2009), Afib, DM, anemia, hypothyroidism, morbid obesity, asthma, sleep apnea, HTN, HLD, chronic mild TNI elevation, chronic lower back pain with sciatica (pt still tries to walk every day), who presents with chest pain and shortness of breath for several days. When her asthma pump and CPAP did not help, she called 911. 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 Cardiovascular: Yes: CHF, HTN, Hyperlipdemia Pulmonary: Yes: Asthma, Bronchitis, Pneumonia, Pulmonary Embolus, Sleep Apnea Gastrointestinal: Yes: Other (multiple incisional hernias) Renal/: Yes: Renal Failure ...: No Heme/Onc: Yes: Anemia Endocrine: Yes: Diabetes Mellitus, Hypothyroidism - Past Surgical History Past Surgical History: Yes: Cholecystectomy, Joint Replacement (left tkr), Permanent Pacemaker (ICD) - Smoking History Smoking history: Never smoked Have you smoked in the past 12 months: No Aproximately how many cigarettes per day: 0 - Alcohol/Substance Use Hx Alcohol Use: No - Social History ADL: Independent History of Recent Travel: No Home Medications - Allergies Allergies/Adverse Reactions: Allergies Allergy/AdvReac Type Severity Reaction Status Date / Time tomato Allergy Mild Hives Verified 05/23/20 19:23 chlorpheniramine Allergy Verified 05/23/20 19:23 cimetidine Allergy Verified 05/23/20 19:23 codeine [Codeine] Allergy Verified 05/23/20 19:23 ibuprofen Allergy Verified 05/23/20 19:23 latex [Latex] Allergy Verified 05/23/20 19:23 Latex, Natural Rubber Allergy Verified 05/23/20 19:23 pseudoephedrine Allergy Verified 05/23/20 19:23 salmeterol xinafoate Allergy Verified 05/23/20 19:23 [From Advair Diskus] shellfish derived Allergy Verified 05/23/20 19:23 Sulfa (Sulfonamide Allergy Verified 03/03/20 23:49 Antibiotics) [Sulfa(Sulfonamide Antibiotics)] Chocolate Allergy Mild Hives Uncoded 03/03/20 23:49 shrimp Allergy Mild Hives Uncoded 03/03/20 23:49 - Home Medications Home Medications: Ambulatory Orders Insulin Glargine,Hum.rec.anlog [Lantus Solostar PEN -] 20 units SQ AM 08/09/16 Budesonide/Formeterol Fumarate [SYMBICORT 160/4.5mcg -] 2 puff PO BID 10/14/16 Albuterol 2.5/Ipratropium 0.5 [Duoneb -] 1 amp NEB Q6H PRN #90 amp 05/21/19 Levothyroxine [Synthroid -] 75 mcg PO DAILY #30 tablet 05/21/19 Insulin Glargine,Hum.rec.anlog [Lantus Solostar PEN -] 10 units SQ HS 08/13/19 Metoprolol Succinate [Toprol XL -] 25 mg PO DAILY 10/10/19 Apixaban [Eliquis -] 5 mg PO BID 11/02/19 Linaclotide [Linzess] 290 mcg PO DAILY 11/02/19 Sacubitril/Valsartan [Entresto 24 mg-26 mg Tablet] 1 each PO ASDIR 11/02/19 Furosemide [Lasix -] 20 mg PO DAILY #30 tablet 11/06/19 Albuterol 0.083% Nebulizer Jyothi [Ventolin 0.083% Nebulizer Soln -] 1 amp NEB Q4H PRN amp 12/13/19 Spironolactone [Aldactone -] 25 mg PO DAILY tablet 12/13/19 Aspirin Coated [Ecotrin -] 81 mg PO DAILY #30 tablet.ec 12/27/19 Potassium Chloride 10 meq PO DAILY 01/15/20 Pregabalin [Lyrica -] 25 mg PO BID 01/15/20 Tiotropium [place] [Spiriva Respimat] 2 puff IH DAILY #1 mist.inhal 01/15/20 Albuterol 0.083% Nebulizer Jyothi [Ventolin 0.083% Nebulizer Soln -] 1 amp NEB Q4H PRN #0 amp 01/20/20 Furosemide [Lasix -] 20 mg PO DAILY #30 tablet 01/20/20 Montelukast Na [Singulair -] 10 mg PO HS #30 tablet 01/20/20 Pantoprazole Sodium [Protonix -] 40 mg PO DAILY #30 tablet.ec 01/20/20 Potassium Chloride [K-Dur -] 10 meq PO DAILY #30 tablet.er 01/20/20 Furosemide [Lasix -] 20 mg PO DAILY tablet 02/23/20 Ondansetron [Zofran *Odt*] 4 mg SL TID PRN #10 od.tablet 03/04/20 Furosemide [Lasix -] 20 mg PO DAILY tablet 05/28/20 Sacubitril/Valsartan [Entresto 24 mg-26 mg Tablet] 1 tab PO BID #60 tablet 05/28/20 Family Medical History Family History: Unremarkable Review of Systems - Review of Systems Constitutional: reports: No Symptoms Eyes: reports: No Symptoms HENT: reports: No Symptoms Neck: reports: No Symptoms Cardiovascular: reports: Chest Pain, Shortness of Breath Respiratory: reports: SOB Gastrointestinal: reports: No Symptoms Genitourinary: reports: No Symptoms Physical Examination Vital Signs: Vital Signs Temperature 98.0 F 07/06/20 18:00 Pulse Rate 92 H 07/06/20 18:00 Respiratory Rate 18 07/06/20 18:00 Blood Pressure 107/65 07/06/20 18:00 O2 Sat by Pulse Oximetry (%) 98 07/06/20 18:00 Constitutional: Yes: Well Nourished Eyes: Yes: WNL HENT: Yes: WNL, Atraumatic Neck: Yes: WNL, Supple Cardiovascular: Yes: WNL, Regular Rate and Rhythm Respiratory: Yes: Diminished Gastrointestinal: Yes: WNL, Normal Bowel Sounds, Soft, Abdomen, Obese Extremities: Yes: WNL Edema: No Neurological: Yes: WNL, Alert, Oriented ...Motor Strength: WNL Labs: CBC, BMP 07/06/20 07:07 07/06/20 07:07 Problem List - Problems (1) Acute on chronic systolic (congestive) heart failure Assessment/Plan: Cont IV lasix Cardio consult Monitor electrolytes Code(s): I50.23 - ACUTE ON CHRONIC SYSTOLIC (CONGESTIVE) HEART FAILURE (2) Asthma Assessment/Plan: Cont inhalers Pulmonary consult Code(s): J45.909 - UNSPECIFIED ASTHMA, UNCOMPLICATED (3) Diabetes Code(s): E11.9 - TYPE 2 DIABETES MELLITUS WITHOUT COMPLICATIONS (4) Elevated troponin Code(s): R79.89 - OTHER SPECIFIED ABNORMAL FINDINGS OF BLOOD CHEMISTRY (5) Hyperlipidemia Code(s): E78.5 - HYPERLIPIDEMIA, UNSPECIFIED (6) Hypertension Code(s): I10 - ESSENTIAL (PRIMARY) HYPERTENSION Qualifiers: (7) Hypothyroidism Code(s): E03.9 - HYPOTHYROIDISM, UNSPECIFIED (8) Paroxysmal A-fib Assessment/Plan: Cont eliquis Monitor heart rate Code(s): I48.0 - PAROXYSMAL ATRIAL FIBRILLATION (9) CAD (coronary artery disease) Code(s): I25.10 - ATHSCL HEART DISEASE OF [place] CORONARY ARTERY W/O ANG PCTRS (10) Cardiomyopathy Code(s): I42.9 - CARDIOMYOPATHY, UNSPECIFIED (11) Morbid obesity Code(s): E66.01 - MORBID (SEVERE) OBESITY DUE TO EXCESS CALORIES (12) Sleep apnea Code(s): G47.30 - SLEEP APNEA, UNSPECIFIED (13) ICD (implantable cardioverter-defibrillator) in place Code(s): Z95.810 - PRESENCE OF AUTOMATIC (IMPLANTABLE) CARDIAC DEFIBRILLATOR
--- NOTE | 2020-07-07 06:14 | PN ---
Progress Note, Physician Chief Complaint: feeling better No CP/SOB History of Present Illness: Non obstx CAD NICM chronic systolic CHF Asthma Non smoker - Current Medication List Current Medications: Active Medications Albuterol Sulfate (Ventolin Hfa Inhaler -) 2 puff IH Q4H PRN PRN Reason: SHORT OF BREATH/WHEEZING Apixaban (Eliquis -) 5 mg PO BID [facility] Last Admin: 07/06/20 22:59 Dose: 5 mg Documented by: Aspirin (Ecotrin -) 81 mg PO DAILY [facility] Last Admin: 07/06/20 10:59 Dose: 81 mg Documented by: Budesonide/Formoterol Fumarate (Symbicort 160/4.5mcg -) 2 puff IH BID [facility] Last Admin: 07/06/20 23:02 Dose: 2 puff Documented by: Furosemide (Lasix Injection -) 20 mg IVPUSH DAILY [facility] Last Admin: 07/06/20 10:57 Dose: 20 mg Documented by: Doxycycline Hyclate 100 mg/ (Dextrose) 100 mls @ 50 mls/hr IVPB BID [facility] Last Admin: 07/06/20 23:03 Dose: 50 mls/hr Documented by: Insulin Detemir (Levemir Vial) 10 units SQ HS [facility] Last Admin: 07/06/20 23:02 Dose: 10 units Documented by: Insulin Detemir (Levemir Vial) 20 units SQ AM [facility] Last Admin: 07/06/20 06:24 Dose: 20 units Documented by: Levothyroxine Sodium (Synthroid -) 75 mcg PO AM [facility] Last Admin: 07/06/20 06:24 Dose: 75 mcg Documented by: Metoprolol Succinate (Toprol Xl -) 25 mg PO DAILY [facility] Last Admin: 07/06/20 11:01 Dose: Not Given Documented by: Pantoprazole Sodium (Protonix -) 40 mg PO DAILY [facility] Last Admin: 07/06/20 10:59 Dose: 40 mg Documented by: Potassium Chloride (K-Dur -) 10 meq PO DAILY [facility] Last Admin: 07/06/20 10:59 Dose: 10 meq Documented by: Pregabalin (Lyrica -) 25 mg PO BID [facility] Last Admin: 07/06/20 23:00 Dose: 25 mg Documented by: Sacubitril/Valsartan (Entresto 24 Mg-26 Mg Tablet) 1 tab PO BID [facility] Last Admin: 07/06/20 23:00 Dose: 1 tab Documented by: Spironolactone (Aldactone -) 25 mg PO DAILY [facility] Last Admin: 07/06/20 11:00 Dose: Not Given Documented by: Tiotropium [place] (Spiriva Respimat) 2 puff IH DAILY [facility] Last Admin: 07/06/20 12:10 Dose: 2 puff Documented by: - Objective Vital Signs: Vital Signs Temperature 97.7 F 07/07/20 02:00 Pulse Rate 84 07/07/20 02:00 Respiratory Rate 18 07/07/20 02:00 Blood Pressure 131/69 07/07/20 02:00 O2 Sat by Pulse Oximetry (%) 97 07/07/20 02:00 Constitutional: Yes: No Distress Eyes: Yes: Conjunctiva Clear Cardiovascular: Yes: Regular Rate and Rhythm Respiratory: Yes: CTA Bilaterally (no active wheezing) Gastrointestinal: Yes: Soft, Abdomen, Obese Edema: No Neurological: Yes: Alert, Oriented Labs: CBC, BMP 07/06/20 07:07 07/06/20 07:07 INR, PTT INR 1.20 (0.83-1.09) H 07/05/20 15:55 Laboratory Tests 11/07/19 11/07/19 05/23/20 06:00 06:00 20:58 WBC 7.2 Hgb 10.5 L Plt Count 242 INR 1.65 H Sodium 140 Potassium 3.4 L BUN Creatinine 1.0 Troponin I B-Natriuretic Peptide 05/26/20 05/26/20 07/05/20 06:56 06:56 15:55 WBC 7.3 Hgb 10.6 L Plt Count 303 INR Sodium 133 L Potassium 4.3 BUN 47.3 H Creatinine 1.9 H Troponin I B-Natriuretic Peptide 1241.5 H 07/06/20 07/06/20 07/06/20 00:01 07:07 07:07 WBC 7.0 Hgb 10.4 L Plt Count 225 INR Sodium Potassium BUN Creatinine Troponin I 0.10 H 0.10 H B-Natriuretic Peptide Assessment/Plan IMP: Non ischemic CM s/p ICD Mild acute on chronic systolic CHF PAF Obesity Chronic asthma REC: 1. NICM w/ chronic systolic CHF, mild acute exacerbation: -Cont IV Lasix, daily weight and BMP monitor renal fx -Cont Toprol, entresto and aldactone 2. PAF: -In sinus -cont Toprol, Eliquis 3. Obesity: -Diet and weight loss goals discussed 4. Chronic Asthma: -Stable -COVID 19 negative
[2020-07-07] MEDS: LEVOTHYROXINE NA 75 MCG TABLET (FP) PO SCH (06:21)
[2020-07-07] MEDS: INSULIN (LEVEMIR) 100 UNITS/ML UNITS SQ SCH ×2 (06:21→22:30)
[2020-07-07] MEDS ORDERED: PT OWN MED DRAWER 7, Y5N ONE ×2 (09:44→22:24)
[2020-07-07] MEDS: DOXYCYCLINE INJECTION 100 MG in DEXTROSE 5%-WATER - 100 ML IVPB SCH ×3 (10:08→23:40)
[2020-07-07] MEDS: FUROSEMIDE 40 MG/4 ML INJECTABLE VIAL IVPUSH SCH (10:08)
[2020-07-07] MEDS: BUDESONIDE/FORMETEROL FUMARATE 160/4.5 mcg INHALER IH SCH ×2 (10:08→22:31)
[2020-07-07] MEDS: TIOTROPIUM BROMIDE 2.5 MCG (SPIRIVA) RESPIMAT INHALER IH SCH (10:08)
[2020-07-07] MEDS: SPIRONOLACTONE 25 MG TABLET PO SCH (10:09)
[2020-07-07] MEDS: SACUBITRIL/VALSARTAN 24 MG-26 MG TABLET PO SCH ×2 (10:09→22:29)
[2020-07-07] MEDS: metoPROLOL SUCCINATE 25 MG TAB.SR.24H (FP) PO SCH (10:09)
[2020-07-07] MEDS: ASPIRIN COATED 81 MG TABLET.EC PO SCH (10:09)
[2020-07-07] MEDS: POTASSIUM CHLORIDE TABS 10 MEQ TABLET.ER (FP) PO SCH (10:09)
[2020-07-07] MEDS: APIXABAN 5 MG TABLET PO SCH ×2 (10:09→22:29)
[2020-07-07] MEDS: PREGABALIN 25 MG CAPSULE PO SCH ×2 (10:09→22:29)
[2020-07-07] MEDS: PANTOPRAZOLE 40 MG TABLET PO SCH (10:09)
--- NOTE | 2020-07-07 10:28 | PN ---
Progress Note, Physician History of Present Illness: pulmonary alert,comfortable sitting up in bed,sob improving - Current Medication List Current Medications: Active Medications Albuterol Sulfate (Ventolin Hfa Inhaler -) 2 puff IH Q4H PRN PRN Reason: SHORT OF BREATH/WHEEZING Apixaban (Eliquis -) 5 mg PO BID [facility] Last Admin: 07/07/20 10:09 Dose: 5 mg Documented by: Aspirin (Ecotrin -) 81 mg PO DAILY [facility] Last Admin: 07/07/20 10:09 Dose: 81 mg Documented by: Budesonide/Formoterol Fumarate (Symbicort 160/4.5mcg -) 2 puff IH BID [facility] Last Admin: 07/07/20 10:08 Dose: 2 puff Documented by: Furosemide (Lasix Injection -) 20 mg IVPUSH DAILY [facility] Last Admin: 07/07/20 10:08 Dose: 20 mg Documented by: Doxycycline Hyclate 100 mg/ (Dextrose) 100 mls @ 50 mls/hr IVPB BID [facility] Last Admin: 07/07/20 10:08 Dose: 50 mls/hr Documented by: Insulin Detemir (Levemir Vial) 10 units SQ HS [facility] Last Admin: 07/06/20 23:02 Dose: 10 units Documented by: Insulin Detemir (Levemir Vial) 20 units SQ AM [facility] Last Admin: 07/07/20 06:21 Dose: 20 units Documented by: Levothyroxine Sodium (Synthroid -) 75 mcg PO AM [facility] Last Admin: 07/07/20 06:21 Dose: 75 mcg Documented by: Metoprolol Succinate (Toprol Xl -) 25 mg PO DAILY [facility] Last Admin: 07/07/20 10:09 Dose: 25 mg Documented by: Pantoprazole Sodium (Protonix -) 40 mg PO DAILY [facility] Last Admin: 07/07/20 10:09 Dose: 40 mg Documented by: Potassium Chloride (K-Dur -) 10 meq PO DAILY [facility] Last Admin: 07/07/20 10:09 Dose: 10 meq Documented by: Pregabalin (Lyrica -) 25 mg PO BID [facility] Last Admin: 07/07/20 10:09 Dose: 25 mg Documented by: Sacubitril/Valsartan (Entresto 24 Mg-26 Mg Tablet) 1 tab PO BID [facility] Last Admin: 07/07/20 10:09 Dose: 1 tab Documented by: Spironolactone (Aldactone -) 25 mg PO DAILY [facility] Last Admin: 07/07/20 10:09 Dose: 25 mg Documented by: Tiotropium [place] (Spiriva Respimat) 2 puff IH DAILY [facility] Last Admin: 07/07/20 10:08 Dose: 2 puff Documented by: - Objective Vital Signs: Vital Signs Temperature 98.3 F 07/07/20 10:00 Pulse Rate 95 H 07/07/20 10:00 Respiratory Rate 18 07/07/20 10:00 Blood Pressure 113/63 07/07/20 10:00 O2 Sat by Pulse Oximetry (%) 93 L 07/07/20 10:00 Constitutional: Yes: Well Nourished, Calm Eyes: Yes: WNL HENT: Yes: WNL Neck: Yes: WNL Cardiovascular: Yes: Regular Rate and Rhythm, S1, S2 Respiratory: Yes: Diminished Gastrointestinal: Yes: Normal Bowel Sounds, Soft Labs: CBC, BMP 07/06/20 07:07 07/06/20 07:07 INR, PTT INR 1.20 (0.83-1.09) H 07/05/20 15:55 Assessment/Plan Problem List - Problems (1) Dyspnea Code(s): R06.00 - DYSPNEA, UNSPECIFIED Qualifiers: Dyspnea type: shortness of breath Qualified Code(s): R06.02 - Shortness of breath; R06.00 - Dyspnea, unspecified; R06.01 - Orthopnea (2) Acute on chronic systolic (congestive) heart failure Code(s): I50.23 - ACUTE ON CHRONIC SYSTOLIC (CONGESTIVE) HEART FAILURE (3) CAD (coronary artery disease) Code(s): I25.10 - ATHSCL HEART DISEASE OF [place] CORONARY ARTERY W/O ANG PCTRS (4) Cardiomyopathy Code(s): I42.9 - CARDIOMYOPATHY, UNSPECIFIED (5) Elevated troponin Code(s): R79.89 - OTHER SPECIFIED ABNORMAL FINDINGS OF BLOOD CHEMISTRY (6) ICD (implantable cardioverter-defibrillator) in place Code(s): Z95.810 - PRESENCE OF AUTOMATIC (IMPLANTABLE) CARDIAC DEFIBRILLATOR (7) Morbid obesity Code(s): E66.01 - MORBID (SEVERE) OBESITY DUE TO EXCESS CALORIES (8) Sleep apnea Code(s): G47.30 - SLEEP APNEA, UNSPECIFIED Assessment/Plan O2 NEEDED INHALED BRONCHODILATORS DIURETICS ANTICOAGULATION DR GANN
--- NOTE | 2020-07-07 14:42 | PN ---
Progress Note, Physician History of Present Illness: no complaints - Current Medication List Current Medications: Active Medications Albuterol Sulfate (Ventolin Hfa Inhaler -) 2 puff IH Q4H PRN PRN Reason: SHORT OF BREATH/WHEEZING Apixaban (Eliquis -) 5 mg PO BID [facility] Last Admin: 07/07/20 10:09 Dose: 5 mg Documented by: Aspirin (Ecotrin -) 81 mg PO DAILY [facility] Last Admin: 07/07/20 10:09 Dose: 81 mg Documented by: Budesonide/Formoterol Fumarate (Symbicort 160/4.5mcg -) 2 puff IH BID [facility] Last Admin: 07/07/20 10:08 Dose: 2 puff Documented by: Furosemide (Lasix Injection -) 20 mg IVPUSH DAILY [facility] Last Admin: 07/07/20 10:08 Dose: 20 mg Documented by: Doxycycline Hyclate 100 mg/ (Dextrose) 100 mls @ 50 mls/hr IVPB BID [facility] Last Admin: 07/07/20 10:08 Dose: 50 mls/hr Documented by: Insulin Detemir (Levemir Vial) 10 units SQ HS [facility] Last Admin: 07/06/20 23:02 Dose: 10 units Documented by: Insulin Detemir (Levemir Vial) 20 units SQ AM [facility] Last Admin: 07/07/20 06:21 Dose: 20 units Documented by: Levothyroxine Sodium (Synthroid -) 75 mcg PO AM [facility] Last Admin: 07/07/20 06:21 Dose: 75 mcg Documented by: Metoprolol Succinate (Toprol Xl -) 25 mg PO DAILY [facility] Last Admin: 07/07/20 10:09 Dose: 25 mg Documented by: Pantoprazole Sodium (Protonix -) 40 mg PO DAILY [facility] Last Admin: 07/07/20 10:09 Dose: 40 mg Documented by: Potassium Chloride (K-Dur -) 10 meq PO DAILY [facility] Last Admin: 07/07/20 10:09 Dose: 10 meq Documented by: Pregabalin (Lyrica -) 25 mg PO BID [facility] Last Admin: 07/07/20 10:09 Dose: 25 mg Documented by: Sacubitril/Valsartan (Entresto 24 Mg-26 Mg Tablet) 1 tab PO BID [facility] Last Admin: 07/07/20 10:09 Dose: 1 tab Documented by: Spironolactone (Aldactone -) 25 mg PO DAILY [facility] Last Admin: 07/07/20 10:09 Dose: 25 mg Documented by: Tiotropium [place] (Spiriva Respimat) 2 puff IH DAILY [facility] Last Admin: 07/07/20 10:08 Dose: 2 puff Documented by: - Objective Vital Signs: Vital Signs Temperature 98.3 F 07/07/20 10:00 Pulse Rate 95 H 07/07/20 10:00 Respiratory Rate 18 07/07/20 10:00 Blood Pressure 113/63 07/07/20 10:00 O2 Sat by Pulse Oximetry (%) 93 L 07/07/20 10:00 Constitutional: Yes: No Distress HENT: Yes: Atraumatic Neck: Yes: Supple Cardiovascular: Yes: Regular Rate and Rhythm Respiratory: Yes: Rhonchi Gastrointestinal: Yes: Normal Bowel Sounds Extremities: Yes: WNL Edema: No Neurological: Yes: Alert, Oriented Labs: CBC, BMP 07/06/20 07:07 07/06/20 07:07 INR, PTT INR 1.20 (0.83-1.09) H 07/05/20 15:55 Problem List - Problems (1) COPD exacerbation Assessment/Plan: ON NEBS PTN OXYGEN PRN Code(s): J44.1 - CHRONIC OBSTRUCTIVE PULMONARY DISEASE W (ACUTE) EXACERBATION (2) Pneumonia Assessment/Plan: IV ABX ID CONSULT COVID NOT DETECTED Code(s): J18.9 - PNEUMONIA, UNSPECIFIED ORGANISM Qualifiers: Pneumonia type: due to unspecified organism Laterality: unspecified l aterality Lung location: unspecified part of lung Qualified Code(s): J18.9 - Pneumonia, unspecified organism (3) Acute on chronic systolic (congestive) heart failure Code(s): I50.23 - ACUTE ON CHRONIC SYSTOLIC (CONGESTIVE) HEART FAILURE (4) Diabetes Assessment/Plan: ON INSULIN AND BGMS Code(s): E11.9 - TYPE 2 DIABETES MELLITUS WITHOUT COMPLICATIONS (5) Hyperlipidemia Code(s): E78.5 - HYPERLIPIDEMIA, UNSPECIFIED (6) Hypothyroidism Assessment/Plan: ON MEDS Code(s): E03.9 - HYPOTHYROIDISM, UNSPECIFIED (7) Paroxysmal A-fib Assessment/Plan: ON BB ON AC Code(s): I48.0 - PAROXYSMAL ATRIAL FIBRILLATION Assessment/Plan COVERING FOR DR JUAN ALBERTO RIVERA
[2020-07-07] MEDS ORDERED: MAG HYDROX/AL HYDROX/SIMETH 30 ML UNIT-DOSE CUP PO ONE (18:00)
[2020-07-07] MEDS ORDERED: INSULIN (NOVOLOG) ASPART 100 UNITS/ML 10ML VIAL ONE (22:23)
[2020-07-07] MEDS: INSULIN SLIDING SCALE (NOVOLOG) 1 VIAL SQ SCH (22:30)
[2020-07-08] MEDS: INSULIN SLIDING SCALE (NOVOLOG) 1 VIAL SQ SCH ×4 (06:27→21:29)
[2020-07-08] MEDS: INSULIN (LEVEMIR) 100 UNITS/ML UNITS SQ SCH ×2 (06:27→21:28)
[2020-07-08] MEDS: LEVOTHYROXINE NA 75 MCG TABLET (FP) PO SCH (06:27)
--- NOTE | 2020-07-08 07:56 | PN ---
Progress Note, Physician History of Present Illness: PULMONARY ALERT,FEELING BETTER,COMFORTABLE,-SOB - Current Medication List Current Medications: Active Medications Albuterol Sulfate (Ventolin Hfa Inhaler -) 2 puff IH Q4H PRN PRN Reason: SHORT OF BREATH/WHEEZING Apixaban (Eliquis -) 5 mg PO BID [facility] Last Admin: 07/07/20 22:29 Dose: 5 mg Documented by: Aspirin (Ecotrin -) 81 mg PO DAILY [facility] Last Admin: 07/07/20 10:09 Dose: 81 mg Documented by: Budesonide/Formoterol Fumarate (Symbicort 160/4.5mcg -) 2 puff IH BID [facility] Last Admin: 07/07/20 22:31 Dose: 2 puff Documented by: Furosemide (Lasix Injection -) 20 mg IVPUSH DAILY [facility] Last Admin: 07/07/20 10:08 Dose: 20 mg Documented by: Doxycycline Hyclate 100 mg/ (Dextrose) 100 mls @ 50 mls/hr IVPB BID [facility] Last Admin: 07/07/20 23:40 Dose: 50 mls/hr Documented by: Insulin Aspart (Novolog Vial Sliding Scale -) 1 vial SQ ACHS [facility]; Protocol Last Admin: 07/08/20 06:27 Dose: 4 units Documented by: Insulin Detemir (Levemir Vial) 10 units SQ HS [facility] Last Admin: 07/07/20 22:30 Dose: 10 units Documented by: Insulin Detemir (Levemir Vial) 20 units SQ AM [facility] Last Admin: 07/08/20 06:27 Dose: 20 units Documented by: Levothyroxine Sodium (Synthroid -) 75 mcg PO AM [facility] Last Admin: 07/08/20 06:27 Dose: 75 mcg Documented by: Metoprolol Succinate (Toprol Xl -) 25 mg PO DAILY [facility] Last Admin: 07/07/20 10:09 Dose: 25 mg Documented by: Pantoprazole Sodium (Protonix -) 40 mg PO DAILY [facility] Last Admin: 07/07/20 10:09 Dose: 40 mg Documented by: Potassium Chloride (K-Dur -) 10 meq PO DAILY [facility] Last Admin: 07/07/20 10:09 Dose: 10 meq Documented by: Pregabalin (Lyrica -) 25 mg PO BID [facility] Last Admin: 07/07/20 22:29 Dose: 25 mg Documented by: Sacubitril/Valsartan (Entresto 24 Mg-26 Mg Tablet) 1 tab PO BID [facility] Last Admin: 07/07/20 22:29 Dose: 1 tab Documented by: Spironolactone (Aldactone -) 25 mg PO DAILY [facility] Last Admin: 07/07/20 10:09 Dose: 25 mg Documented by: Tiotropium [place] (Spiriva Respimat) 2 puff IH DAILY [facility] Last Admin: 07/07/20 10:08 Dose: 2 puff Documented by: - Objective Vital Signs: Vital Signs Temperature 97.4 F L 07/08/20 06:00 Pulse Rate 81 07/08/20 06:00 Respiratory Rate 18 07/08/20 06:00 Blood Pressure 92/48 L 07/08/20 06:00 O2 Sat by Pulse Oximetry (%) 100 07/08/20 06:00 Constitutional: Yes: Calm, Obese Eyes: Yes: WNL, Other HENT: Yes: WNL Neck: Yes: WNL Cardiovascular: Yes: Regular Rate and Rhythm, Pulse Irregular, S1 Respiratory: Yes: Diminished Gastrointestinal: Yes: Normal Bowel Sounds, Soft, Abdomen, Obese Extremities: Yes: WNL Edema: Yes Labs: Assessment/Plan Problem List - Problems (1) Dyspnea Code(s): R06.00 - DYSPNEA, UNSPECIFIED Qualifiers: Dyspnea type: shortness of breath Qualified Code(s): R06.02 - Shortness of breath; R06.00 - Dyspnea, unspecified; R06.01 - Orthopnea (2) Acute on chronic systolic (congestive) heart failure Code(s): I50.23 - ACUTE ON CHRONIC SYSTOLIC (CONGESTIVE) HEART FAILURE (3) CAD (coronary artery disease) Code(s): I25.10 - ATHSCL HEART DISEASE OF [place] CORONARY ARTERY W/O ANG PCTRS (4) Cardiomyopathy Code(s): I42.9 - CARDIOMYOPATHY, UNSPECIFIED (5) Elevated troponin Code(s): R79.89 - OTHER SPECIFIED ABNORMAL FINDINGS OF BLOOD CHEMISTRY (6) ICD (implantable cardioverter-defibrillator) in place Code(s): Z95.810 - PRESENCE OF AUTOMATIC (IMPLANTABLE) CARDIAC DEFIBRILLATOR (7) Morbid obesity Code(s): E66.01 - MORBID (SEVERE) OBESITY DUE TO EXCESS CALORIES (8) Sleep apnea Code(s): G47.30 - SLEEP APNEA, UNSPECIFIED Assessment/Plan O2 NEEDED INHALED BRONCHODILATORS DIURETICS ANTICOAGULATION DR GANN
[2020-07-08 08:02] LABS: BASO % 0.7 % (0-2.0); EOS % 2.6 % (0-4.5); HEMATOCRIT 35.1 % (32.4-45.2); HEMOGLOBIN 11.1 GM/dL (10.7-15.3); LYMPH % 31.5 % (8-40); MCH 26.1 pg (25.7-33.7); MCHC 31.6 g/dl (32.0-36.0); MEAN CELL VOLUME 82.7 fl (80-96); MEAN PLT VOLUME 10.2 fl (7.5-11.1); NEUT % 58.2 % (42.8-82.8); PLATELET COUNT 211 K/MM3 (134-434); RBC 4.24 M/mm3 (3.60-5.2); WHITE BLOOD COUNT 7.1 K/mm3 (4.0-10.0)
[2020-07-08 08:24] LABS: ALBUMIN 3.2 g/dl (3.4-5.0); BILIRUBIN,TOTAL 0.6 mg/dL (0.2-1); BLOOD UREA NITROGEN 12.3 mg/dL (7-18); CALCIUM 9.3 mg/dL (8.5-10.1); POTASSIUM 3.8 mmol/L (3.5-5.1)
[2020-07-08] MEDS ORDERED: PT OWN MED DRAWER 7, Y5N ONE ×2 (10:04→21:10)
[2020-07-08] MEDS: SPIRONOLACTONE 25 MG TABLET PO SCH (10:10)
[2020-07-08] MEDS: APIXABAN 5 MG TABLET PO SCH ×2 (10:10→21:28)
[2020-07-08] MEDS: ASPIRIN COATED 81 MG TABLET.EC PO SCH (10:10)
[2020-07-08] MEDS: SACUBITRIL/VALSARTAN 24 MG-26 MG TABLET PO SCH ×2 (10:11→21:29)
[2020-07-08] MEDS: FUROSEMIDE 40 MG/4 ML INJECTABLE VIAL IVPUSH SCH (10:11)
[2020-07-08] MEDS: PANTOPRAZOLE 40 MG TABLET PO SCH (10:13)
[2020-07-08] MEDS: PREGABALIN 25 MG CAPSULE PO SCH ×2 (10:13→21:28)
[2020-07-08] MEDS: DOXYCYCLINE INJECTION 100 MG in DEXTROSE 5%-WATER - 100 ML IVPB SCH (10:14)
[2020-07-08] MEDS: metoPROLOL SUCCINATE 25 MG TAB.SR.24H (FP) PO SCH (10:14)
[2020-07-08] MEDS: POTASSIUM CHLORIDE TABS 10 MEQ TABLET.ER (FP) PO SCH (10:15)
[2020-07-08] MEDS: BUDESONIDE/FORMETEROL FUMARATE 160/4.5 mcg INHALER IH SCH ×2 (10:28→21:29)
[2020-07-08] MEDS: TIOTROPIUM BROMIDE 2.5 MCG (SPIRIVA) RESPIMAT INHALER IH SCH (10:28)
--- NOTE | 2020-07-08 11:43 | CON.ID ---
Consult Consult Specialty:: infectious diseases Referred by:: Reason for Consultation:: pneumonia,sob,chest pain - History of Present Illness Chief Complaint: chest pain History of Present Illness: 60-year-old black female with PMHx severe systolic CHF, (s/p ICD and coronary stent in 2009), A. fib on Eliquis, DM, morbid obesity (once weighed 540 lbs; lost nearly 300 lbs in the past few years through major change in diet); sleep apnea, HTN, HLD, chronic mild TNI elevation, chronic lower back pain with sciatica (pt still tries to walk every day), who presents with chest pain and shortness of breath for several days. When her asthma pump and CPAP did not help, she called 911. 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 Cardio/Vascular: Yes: CHF, HTN, Hyperlipdemia Pulmonary: Yes: Asthma, Bronchitis, Pneumonia, Pulmonary Embolus, Sleep Apnea Gastrointestinal: Yes: Other (multiple incisional hernias) Renal/: Yes: Renal Failure ...: No Endocrine: Yes: Diabetes Mellitus, Hypothyroidism - Past Surgical History Past Surgical History: Yes: Cholecystectomy, Joint Replacement (left tkr), Permanent Pacemaker (ICD) - Alcohol/Substance Use Hx Alcohol Use: No - Smoking History Smoking history: Never smoked Have you smoked in the past 12 months: No Aproximately how many cigarettes per day: 0 - Social History Usual Living Arrangement: With Spouse ADL: Independent History of Recent Travel: No Home Medications - Allergies Allergies/Adverse Reactions: Allergies Allergy/AdvReac Type Severity Reaction Status Date / Time tomato Allergy Mild Hives Verified 05/23/20 19:23 chlorpheniramine Allergy Verified 05/23/20 19:23 cimetidine Allergy Verified 05/23/20 19:23 codeine [Codeine] Allergy Verified 05/23/20 19:23 ibuprofen Allergy Verified 05/23/20 19:23 latex [Latex] Allergy Verified 05/23/20 19:23 Latex, Natural Rubber Allergy Verified 05/23/20 19:23 pseudoephedrine Allergy Verified 05/23/20 19:23 salmeterol xinafoate Allergy Verified 05/23/20 19:23 [From Advair Diskus] shellfish derived Allergy Verified 05/23/20 19:23 Sulfa (Sulfonamide Allergy Verified 03/03/20 23:49 Antibiotics) [Sulfa(Sulfonamide Antibiotics)] Chocolate Allergy Mild Hives Uncoded 03/03/20 23:49 shrimp Allergy Mild Hives Uncoded 03/03/20 23:49 - Home Medications Home Medications: Ambulatory Orders Insulin Glargine,Hum.rec.anlog [Lantus Solostar PEN -] 20 units SQ AM 08/09/16 Budesonide/Formeterol Fumarate [SYMBICORT 160/4.5mcg -] 2 puff PO BID 10/14/16 Albuterol 2.5/Ipratropium 0.5 [Duoneb -] 1 amp NEB Q6H PRN #90 amp 05/21/19 Levothyroxine [Synthroid -] 75 mcg PO DAILY #30 tablet 05/21/19 Insulin Glargine,Hum.rec.anlog [Lantus Solostar PEN -] 10 units SQ HS 08/13/19 Metoprolol Succinate [Toprol XL -] 25 mg PO DAILY 10/10/19 Apixaban [Eliquis -] 5 mg PO BID 11/02/19 Linaclotide [Linzess] 290 mcg PO DAILY 11/02/19 Sacubitril/Valsartan [Entresto 24 mg-26 mg Tablet] 1 each PO ASDIR 11/02/19 Furosemide [Lasix -] 20 mg PO DAILY #30 tablet 11/06/19 Albuterol 0.083% Nebulizer Jyothi [Ventolin 0.083% Nebulizer Soln -] 1 amp NEB Q4H PRN amp 12/13/19 Spironolactone [Aldactone -] 25 mg PO DAILY tablet 12/13/19 Aspirin Coated [Ecotrin -] 81 mg PO DAILY #30 tablet.ec 12/27/19 Potassium Chloride 10 meq PO DAILY 01/15/20 Pregabalin [Lyrica -] 25 mg PO BID 01/15/20 Tiotropium [place] [Spiriva Respimat] 2 puff IH DAILY #1 mist.inhal 01/15/20 Albuterol 0.083% Nebulizer [place]i [Ventolin 0.083% Nebulizer Soln -] 1 amp NEB Q4H PRN #0 amp 01/20/20 Furosemide [Lasix -] 20 mg PO DAILY #30 tablet 01/20/20 Montelukast Na [Singulair -] 10 mg PO HS #30 tablet 01/20/20 Pantoprazole Sodium [Protonix -] 40 mg PO DAILY #30 tablet.ec 01/20/20 Potassium Chloride [K-Dur -] 10 meq PO DAILY #30 tablet.er 01/20/20 Furosemide [Lasix -] 20 mg PO DAILY tablet 02/23/20 Ondansetron [Zofran *Odt*] 4 mg SL TID PRN #10 od.tablet 03/04/20 Furosemide [Lasix -] 20 mg PO DAILY tablet 05/28/20 Sacubitril/Valsartan [Entresto 24 mg-26 mg Tablet] 1 tab PO BID #60 tablet 05/28/20 Review of Systems - Review of Systems Constitutional: reports: Weakness Eyes: reports: No Symptoms HENT: reports: No Symptoms Neck: reports: No Symptoms Cardiovascular: reports: Chest Pain Respiratory: reports: SOB, SOB on Exertion Gastrointestinal: reports: No Symptoms Genitourinary: reports: No Symptoms Musculoskeletal: reports: No Symptoms Integumentary: reports: No Symptoms Neurological: reports: No Symptoms Endocrine: reports: No Symptoms, Unexplained Weight Gain Psychiatric: reports: No Symptoms Physical Exam Vital Signs: Vital Signs Temperature 98.4 F 07/08/20 09:05 Pulse Rate 91 H 07/08/20 09:05 Respiratory Rate 19 07/08/20 09:05 Blood Pressure 96/57 L 07/08/20 09:05 O2 Sat by Pulse Oximetry (%) 98 07/08/20 09:05 Constitutional: Yes: Well Nourished, Calm, Obese Eyes: Yes: Conjunctiva Clear HENT: Yes: Atraumatic, Normocephalic Neck: Yes: Supple, Trachea Midline Cardiovascular: Yes: Regular Rate and Rhythm Respiratory: Yes: Regular, CTA Bilaterally Gastrointestinal: Yes: Normal Bowel Sounds, Soft Musculoskeletal: Yes: WNL Extremities: Yes: WNL Neurological: Yes: Alert, Oriented Psychiatric: Yes: Alert, Oriented Labs: CBC, BMP 07/08/20 06:45 07/08/20 06:45 Imaging - Results Chest X-ray: Report Reviewed, Image Reviewed Cat Scan: Report Reviewed, Image Reviewed Assessment/Plan Problem List - Problems (1) COPD exacerbation Code(s): J44.1 - CHRONIC OBSTRUCTIVE PULMONARY DISEASE W (ACUTE) EXACERBATION (2) Pneumonia Code(s): J18.9 - PNEUMONIA, UNSPECIFIED ORGANISM Qualifiers: Pneumonia type: due to unspecified organism Laterality: unspecified laterality Lung location: unspecified part of lung Qualified Code(s): J18.9 - Pneumonia, unspecified organism (3) Acute on chronic systolic (congestive) heart failure Code(s): I50.23 - ACUTE ON CHRONIC SYSTOLIC (CONGESTIVE) HEART FAILURE (4) Diabetes Code(s): E11.9 - TYPE 2 DIABETES MELLITUS WITHOUT COMPLICATIONS (5) Hyperlipidemia Code(s): E78.5 - HYPERLIPIDEMIA, UNSPECIFIED (6) Hypothyroidism Code(s): E03.9 - HYPOTHYROIDISM, UNSPECIFIED (7) Paroxysmal A-fib Code(s): I48.0 - PAROXYSMAL ATRIAL FIBRILLATION Assessment/Plan will stop doxy if patient develops sob will give ceftriaxone monitor if patient remains stable
--- NOTE | 2020-07-08 12:57 | PN ---
Progress Note (short form) - Note Progress Note: cc: dyspnea s: no chest pain, palps, dyspnea. edema improving Current Medications Generic Name Dose Route Start Last Admin Trade Name Freq PRN Reason Stop Dose Admin Albuterol Sulfate 2 puff 07/05/20 22:57 Ventolin Hfa Inhaler - IH Q4H PRN SHORT OF BREATH/WHEEZING Apixaban 5 mg 07/06/20 10:00 07/08/20 10:10 Eliquis - PO 5 mg BID DOM Administration Aspirin 81 mg 07/06/20 10:00 07/08/20 10:10 Ecotrin - PO 81 mg DAILY DOM Administration Budesonide/Formoterol Fumarate 2 puff 07/06/20 10:00 07/08/20 10:28 Symbicort 160/4.5mcg - IH 2 puff BID DOM Administration Furosemide 20 mg 07/06/20 10:00 07/08/20 10:11 Lasix Injection - IVPUSH 20 mg DAILY DOM Administration Insulin Aspart 1 vial 07/07/20 22:00 07/08/20 11:51 Novolog Vial Sliding Scale - SQ 6 units ACHS DOM Administration Protocol Insulin Detemir 10 units 07/06/20 22:00 07/07/20 22:30 Levemir Vial SQ 10 units HS DOM Administration Insulin Detemir 20 units 07/06/20 07:00 07/08/20 06:27 Levemir Vial SQ 20 units AM DOM Administration Levothyroxine Sodium 75 mcg 07/06/20 07:00 07/08/20 06:27 Synthroid - PO 75 mcg AM DOM Administration Metoprolol Succinate 25 mg 07/06/20 10:00 07/08/20 10:14 Toprol Xl - PO 25 mg DAILY DOM Administration Pantoprazole Sodium 40 mg 07/06/20 10:00 07/08/20 10:13 Protonix - PO 40 mg DAILY DOM Administration Potassium Chloride 10 meq 07/06/20 10:00 07/08/20 10:15 K-Dur - PO 10 meq DAILY DOM Administration Pregabalin 25 mg 07/06/20 10:00 07/08/20 10:13 Lyrica - PO 25 mg BID DOM Administration Sacubitril/Valsartan 1 tab 07/05/20 23:00 07/08/20 10:11 Entresto 24 Mg-26 Mg Tablet PO 1 tab BID DOM Administration Spironolactone 25 mg 07/06/20 10:00 07/08/20 10:10 Aldactone - PO 25 mg DAILY DOM Administration Tiotropium [place] 2 puff 07/06/20 10:00 07/08/20 10:28 Spiriva Respimat IH 2 puff DAILY DOM Administration Vital Signs Period Temp Pulse Resp BP Sys/Mcgrath Pulse Ox Last 24 Hr 97.4 F-98.9 F 81-91 18-19 92-135/48-85 96-100 Constitutional: Yes: No Distress Eyes: Yes: Conjunctiva Clear Cardiovascular: Yes: Regular Rate and Rhythm Respiratory: Yes: CTA Bilaterally (no active wheezing) Gastrointestinal: Yes: Soft, Abdomen, Obese Edema: No Neurological: Yes: Alert, Oriented no jaundice, diaphoresis not agitated Assessment/Plan IMP: Non ischemic CM s/p ICD Mild acute on chronic systolic CHF PAF Obesity Chronic asthma REC: 1. NICM w/ chronic systolic CHF, mild acute exacerbation: - improving, still complains of edema in hands -Cont IV Lasix, daily weight and BMP monitor renal fx -Cont Toprol, entresto and aldactone 2. PAF: -In sinus -cont Toprol, Eliquis 3. Obesity: -Diet and weight loss goals discussed 4. Chronic Asthma: -Stable -COVID 19 negative
[2020-07-08 14:45] VITALS: BMI 40.6
--- NOTE | 2020-07-08 23:29 | PN ---
Progress Note, Physician History of Present Illness: No new complaints - Current Medication List Current Medications: Active Medications Albuterol Sulfate (Ventolin Hfa Inhaler -) 2 puff IH Q4H PRN PRN Reason: SHORT OF BREATH/WHEEZING Apixaban (Eliquis -) 5 mg PO BID [facility] Last Admin: 07/08/20 21:28 Dose: 5 mg Documented by: Aspirin (Ecotrin -) 81 mg PO DAILY [facility] Last Admin: 07/08/20 10:10 Dose: 81 mg Documented by: Budesonide/Formoterol Fumarate (Symbicort 160/4.5mcg -) 2 puff IH BID [facility] Last Admin: 07/08/20 21:29 Dose: 2 puff Documented by: Furosemide (Lasix Injection -) 20 mg IVPUSH DAILY [facility] Last Admin: 07/08/20 10:11 Dose: 20 mg Documented by: Insulin Aspart (Novolog Vial Sliding Scale -) 1 vial SQ [facility]; Protocol Last Admin: 07/08/20 21:29 Dose: 6 units Documented by: Insulin Detemir (Levemir Vial) 10 units SQ HS [facility] Last Admin: 07/08/20 21:28 Dose: 10 units Documented by: Insulin Detemir (Levemir Vial) 20 units SQ AM [facility] Last Admin: 07/08/20 06:27 Dose: 20 units Documented by: Levothyroxine Sodium (Synthroid -) 75 mcg PO AM [facility] Last Admin: 07/08/20 06:27 Dose: 75 mcg Documented by: Metoprolol Succinate (Toprol Xl -) 25 mg PO DAILY [facility] Last Admin: 07/08/20 10:14 Dose: 25 mg Documented by: Pantoprazole Sodium (Protonix -) 40 mg PO DAILY [facility] Last Admin: 07/08/20 10:13 Dose: 40 mg Documented by: Potassium Chloride (K-Dur -) 10 meq PO DAILY [facility] Last Admin: 07/08/20 10:15 Dose: 10 meq Documented by: Pregabalin (Lyrica -) 25 mg PO BID [facility] Last Admin: 07/08/20 21:28 Dose: 25 mg Documented by: Sacubitril/Valsartan (Entresto 24 Mg-26 Mg Tablet) 1 tab PO BID [facility] Last Admin: 07/08/20 21:29 Dose: 1 tab Documented by: Spironolactone (Aldactone -) 25 mg PO DAILY [facility] Last Admin: 07/08/20 10:10 Dose: 25 mg Documented by: Tiotropium [place] (Spiriva Respimat) 2 puff IH DAILY [facility] Last Admin: 07/08/20 10:28 Dose: 2 puff Documented by: - Objective Vital Signs: Vital Signs Temperature 98.8 F 07/08/20 18:00 Pulse Rate 88 07/08/20 18:00 Respiratory Rate 20 07/08/20 18:00 Blood Pressure 141/77 07/08/20 18:00 O2 Sat by Pulse Oximetry (%) 100 07/08/20 22:24 Neck: Yes: WNL, Supple Cardiovascular: Yes: WNL, Regular Rate and Rhythm Respiratory: Yes: WNL, Regular, CTA Bilaterally Gastrointestinal: Yes: WNL, Normal Bowel Sounds, Soft, Abdomen, Obese Labs: CBC, BMP 07/08/20 06:45 07/08/20 06:45 INR, PTT INR 1.20 (0.83-1.09) H 07/05/20 15:55 Problem List - Problems (1) Acute on chronic systolic (congestive) heart failure Code(s): I50.23 - ACUTE ON CHRONIC SYSTOLIC (CONGESTIVE) HEART FAILURE (2) Asthma Code(s): J45.909 - UNSPECIFIED ASTHMA, UNCOMPLICATED (3) CAD (coronary artery disease) Code(s): I25.10 - ATHSCL HEART DISEASE OF [place] CORONARY ARTERY W/O ANG PCTRS (4) Cardiomyopathy Code(s): I42.9 - CARDIOMYOPATHY, UNSPECIFIED (5) Diabetes Code(s): E11.9 - TYPE 2 DIABETES MELLITUS WITHOUT COMPLICATIONS (6) Elevated troponin Code(s): R79.89 - OTHER SPECIFIED ABNORMAL FINDINGS OF BLOOD CHEMISTRY (7) Hyperlipidemia Code(s): E78.5 - HYPERLIPIDEMIA, UNSPECIFIED (8) Hypertension Code(s): I10 - ESSENTIAL (PRIMARY) HYPERTENSION Qualifiers: (9) Hypothyroidism Code(s): E03.9 - HYPOTHYROIDISM, UNSPECIFIED (10) ICD (implantable cardioverter-defibrillator) in place Code(s): Z95.810 - PRESENCE OF AUTOMATIC (IMPLANTABLE) CARDIAC DEFIBRILLATOR (11) Morbid obesity Code(s): E66.01 - MORBID (SEVERE) OBESITY DUE TO EXCESS CALORIES (12) Paroxysmal A-fib Code(s): I48.0 - PAROXYSMAL ATRIAL FIBRILLATION
[2020-07-09] MEDS: LEVOTHYROXINE NA 75 MCG TABLET (FP) PO SCH (06:14)
[2020-07-09] MEDS: INSULIN (LEVEMIR) 100 UNITS/ML UNITS SQ SCH ×2 (06:21→21:11)
[2020-07-09] MEDS: INSULIN SLIDING SCALE (NOVOLOG) 1 VIAL SQ SCH ×4 (06:21→21:11)
[2020-07-09] MEDS ORDERED: INSULIN (NOVOLOG) ASPART 100 UNITS/ML 10ML VIAL ONE ×2 (06:30→20:53)
--- NOTE | 2020-07-09 07:11 | PN ---
Progress Note, Physician History of Present Illness: PULMONARY ALERT,COMFORTABLE,SOB IMPROVED - Current Medication List Current Medications: Active Medications Albuterol Sulfate (Ventolin Hfa Inhaler -) 2 puff IH Q4H PRN PRN Reason: SHORT OF BREATH/WHEEZING Apixaban (Eliquis -) 5 mg PO BID [facility] Last Admin: 07/08/20 21:28 Dose: 5 mg Documented by: Aspirin (Ecotrin -) 81 mg PO DAILY [facility] Last Admin: 07/08/20 10:10 Dose: 81 mg Documented by: Budesonide/Formoterol Fumarate (Symbicort 160/4.5mcg -) 2 puff IH BID [facility] Last Admin: 07/08/20 21:29 Dose: 2 puff Documented by: Furosemide (Lasix Injection -) 20 mg IVPUSH DAILY [facility] Last Admin: 07/08/20 10:11 Dose: 20 mg Documented by: Insulin Aspart (Novolog Vial Sliding Scale -) 1 vial SQ [facility]; Protocol Last Admin: 07/09/20 06:21 Dose: 6 units Documented by: Insulin Detemir (Levemir Vial) 10 units SQ HS [facility] Last Admin: 07/08/20 21:28 Dose: 10 units Documented by: Insulin Detemir (Levemir Vial) 20 units SQ AM [facility] Last Admin: 07/09/20 06:21 Dose: 20 units Documented by: Levothyroxine Sodium (Synthroid -) 75 mcg PO AM [facility] Last Admin: 07/09/20 06:14 Dose: 75 mcg Documented by: Metoprolol Succinate (Toprol Xl -) 25 mg PO DAILY [facility] Last Admin: 07/08/20 10:14 Dose: 25 mg Documented by: Pantoprazole Sodium (Protonix -) 40 mg PO DAILY [facility] Last Admin: 07/08/20 10:13 Dose: 40 mg Documented by: Potassium Chloride (K-Dur -) 10 meq PO DAILY [facility] Last Admin: 07/08/20 10:15 Dose: 10 meq Documented by: Pregabalin (Lyrica -) 25 mg PO BID [facility] Last Admin: 07/08/20 21:28 Dose: 25 mg Documented by: Sacubitril/Valsartan (Entresto 24 Mg-26 Mg Tablet) 1 tab PO BID [facility] Last Admin: 07/08/20 21:29 Dose: 1 tab Documented by: Spironolactone (Aldactone -) 25 mg PO DAILY [facility] Last Admin: 07/08/20 10:10 Dose: 25 mg Documented by: Tiotropium [place] (Spiriva Respimat) 2 puff IH DAILY [facility] Last Admin: 07/08/20 10:28 Dose: 2 puff Documented by: - Objective Vital Signs: Vital Signs Temperature 98.6 F 07/09/20 06:00 Pulse Rate 76 07/09/20 06:00 Respiratory Rate 20 07/09/20 06:00 Blood Pressure 95/54 L 07/09/20 06:00 O2 Sat by Pulse Oximetry (%) 98 07/09/20 06:00 Constitutional: Yes: Well Nourished, Calm, Obese Eyes: Yes: WNL HENT: Yes: WNL Neck: Yes: WNL Cardiovascular: Yes: Regular Rate and Rhythm, S1, S2 Respiratory: Yes: Diminished Gastrointestinal: Yes: Normal Bowel Sounds, Soft Extremities: Yes: WNL Edema: No Labs: CBC, BMP 07/08/20 06:45 Assessment/Plan Problem List - Problems (1) Dyspnea Code(s): R06.00 - DYSPNEA, UNSPECIFIED Qualifiers: Dyspnea type: shortness of breath Qualified Code(s): R06.02 - Shortness of breath; R06.00 - Dyspnea, unspecified; R06.01 - Orthopnea (2) Acute on chronic systolic (congestive) heart failure Code(s): I50.23 - ACUTE ON CHRONIC SYSTOLIC (CONGESTIVE) HEART FAILURE (3) CAD (coronary artery disease) Code(s): I25.10 - ATHSCL HEART DISEASE OF [place] CORONARY ARTERY W/O ANG PCTRS (4) Cardiomyopathy Code(s): I42.9 - CARDIOMYOPATHY, UNSPECIFIED (5) Elevated troponin Code(s): R79.89 - OTHER SPECIFIED ABNORMAL FINDINGS OF BLOOD CHEMISTRY (6) ICD (implantable cardioverter-defibrillator) in place Code(s): Z95.810 - PRESENCE OF AUTOMATIC (IMPLANTABLE) CARDIAC DEFIBRILLATOR (7) Morbid obesity Code(s): E66.01 - MORBID (SEVERE) OBESITY DUE TO EXCESS CALORIES (8) Sleep apnea Code(s): G47.30 - SLEEP APNEA, UNSPECIFIED Assessment/Plan O2 NEEDED INHALED BRONCHODILATORS DIURETICS ANTICOAGULATION DR GANN
[2020-07-09] MEDS ORDERED: PT OWN MED DRAWER 7, Y5N ONE (09:39)
[2020-07-09] MEDS: SACUBITRIL/VALSARTAN 24 MG-26 MG TABLET PO SCH ×2 (09:58→21:10)
[2020-07-09] MEDS: FUROSEMIDE 40 MG/4 ML INJECTABLE VIAL IVPUSH SCH ×2 (09:58→10:32)
[2020-07-09] MEDS: metoPROLOL SUCCINATE 25 MG TAB.SR.24H (FP) PO SCH (09:58)
[2020-07-09] MEDS: ASPIRIN COATED 81 MG TABLET.EC PO SCH (09:59)
[2020-07-09] MEDS: SPIRONOLACTONE 25 MG TABLET PO SCH (10:00)
[2020-07-09] MEDS: APIXABAN 5 MG TABLET PO SCH ×2 (10:01→21:10)
[2020-07-09] MEDS: POTASSIUM CHLORIDE TABS 10 MEQ TABLET.ER (FP) PO SCH (10:01)
[2020-07-09] MEDS: PREGABALIN 25 MG CAPSULE PO SCH ×2 (10:01→21:11)
[2020-07-09] MEDS: PANTOPRAZOLE 40 MG TABLET PO SCH (10:02)
[2020-07-09] MEDS: BUDESONIDE/FORMETEROL FUMARATE 160/4.5 mcg INHALER IH SCH ×2 (10:04→21:12)
[2020-07-09] MEDS: TIOTROPIUM BROMIDE 2.5 MCG (SPIRIVA) RESPIMAT INHALER IH SCH (10:04)
[2020-07-09 11:04] LABS: BLOOD UREA NITROGEN 12.5 mg/dL (7-18); CALCIUM 9.2 mg/dL (8.5-10.1); CREATININE 1.1 mg/dL (0.55-1.3); POTASSIUM 4.1 mmol/L (3.5-5.1)
--- NOTE | 2020-07-09 11:10 | PN ---
Progress Note (short form) - Note Progress Note: cc: dyspnea s: no chest pain, palps, dyspnea. edema improving. Current Medications Generic Name Dose Route Start Last Admin Trade Name Freq PRN Reason Stop Dose Admin Albuterol Sulfate 2 puff 07/05/20 22:57 Ventolin Hfa Inhaler - IH Q4H PRN SHORT OF BREATH/WHEEZING Apixaban 5 mg 07/06/20 10:00 07/09/20 10:01 Eliquis - PO 5 mg BID DOM Administration Aspirin 81 mg 07/06/20 10:00 07/09/20 09:59 Ecotrin - PO 81 mg DAILY DOM Administration Budesonide/Formoterol Fumarate 2 puff 07/06/20 10:00 07/09/20 10:04 Symbicort 160/4.5mcg - IH 2 puff BID DOM Administration Insulin Aspart 1 vial 07/07/20 22:00 07/09/20 06:21 Novolog Vial Sliding Scale - SQ 6 units ACHS DOM Administration Protocol Insulin Detemir 10 units 07/06/20 22:00 07/08/20 21:28 Levemir Vial SQ 10 units HS DOM Administration Insulin Detemir 20 units 07/06/20 07:00 07/09/20 06:21 Levemir Vial SQ 20 units AM DOM Administration Levothyroxine Sodium 75 mcg 07/06/20 07:00 07/09/20 06:14 Synthroid - PO 75 mcg AM DOM Administration Metoprolol Succinate 25 mg 07/06/20 10:00 07/09/20 09:58 Toprol Xl - PO 25 mg DAILY DOM Administration Pantoprazole Sodium 40 mg 07/06/20 10:00 07/09/20 10:02 Protonix - PO 40 mg DAILY DOM Administration Potassium Chloride 10 meq 07/06/20 10:00 07/09/20 10:01 K-Dur - PO 10 meq DAILY DOM Administration Pregabalin 25 mg 07/06/20 10:00 07/09/20 10:01 Lyrica - PO 25 mg BID DOM Administration Sacubitril/Valsartan 1 tab 07/05/20 23:00 07/09/20 09:58 Entresto 24 Mg-26 Mg Tablet PO 1 tab BID DOM Administration Spironolactone 25 mg 07/06/20 10:00 07/09/20 10:00 Aldactone - PO 25 mg DAILY DOM Administration Tiotropium [place] 2 puff 07/06/20 10:00 07/09/20 10:04 Spiriva Respimat IH 2 puff DAILY DOM Administration Torsemide 20 mg 07/09/20 11:09 Demadex - PO 07/09/20 11:10 ONCE ONE Vital Signs Period Temp Pulse Resp BP Sys/Mcgrath Pulse Ox Last 24 Hr 98.1 F-98.8 F 76-88 20-20 95-141/54-85 96-100 Constitutional: Yes: No Distress Eyes: Yes: Conjunctiva Clear Cardiovascular: Yes: Regular Rate and Rhythm Respiratory: Yes: CTA Bilaterally (no active wheezing) Gastrointestinal: Yes: Soft, Abdomen, Obese Edema: No Neurological: Yes: Alert, Oriented no jaundice, diaphoresis not agitated Assessment/Plan IMP: Non ischemic CM s/p ICD Mild acute on chronic systolic CHF PAF Obesity Chronic asthma REC: 1. NICM w/ chronic systolic CHF, mild acute exacerbation: - improving - lost IV access, will give torsemide 20 mg PO today, likely able to transition to home lasix tomorrow -Cont Toprol, entresto and aldactone 2. PAF: -In sinus -cont Toprol, Eliquis 3. Obesity: -Diet and weight loss goals discussed 4. Chronic Asthma: -Stable -COVID 19 negative
[2020-07-09] MEDS ORDERED: TORSEMIDE 20 MG TABLET (FP) PO ONE (11:45)
--- NOTE | 2020-07-09 12:21 | PN ---
Progress Note, Physician History of Present Illness: stable - Current Medication List Current Medications: Active Medications Albuterol Sulfate (Ventolin Hfa Inhaler -) 2 puff IH Q4H PRN PRN Reason: SHORT OF BREATH/WHEEZING Apixaban (Eliquis -) 5 mg PO BID [facility] Last Admin: 07/09/20 10:01 Dose: 5 mg Documented by: Aspirin (Ecotrin -) 81 mg PO DAILY [facility] Last Admin: 07/09/20 09:59 Dose: 81 mg Documented by: Budesonide/Formoterol Fumarate (Symbicort 160/4.5mcg -) 2 puff IH BID [facility] Last Admin: 07/09/20 10:04 Dose: 2 puff Documented by: Insulin Aspart (Novolog Vial Sliding Scale -) 1 vial SQ [facility]; Protocol Last Admin: 07/09/20 12:01 Dose: 2 units Documented by: Insulin Detemir (Levemir Vial) 10 units SQ HS [facility] Last Admin: 07/08/20 21:28 Dose: 10 units Documented by: Insulin Detemir (Levemir Vial) 20 units SQ AM [facility] Last Admin: 07/09/20 06:21 Dose: 20 units Documented by: Levothyroxine Sodium (Synthroid -) 75 mcg PO AM [facility] Last Admin: 07/09/20 06:14 Dose: 75 mcg Documented by: Metoprolol Succinate (Toprol Xl -) 25 mg PO DAILY [facility] Last Admin: 07/09/20 09:58 Dose: 25 mg Documented by: Pantoprazole Sodium (Protonix -) 40 mg PO DAILY [facility] Last Admin: 07/09/20 10:02 Dose: 40 mg Documented by: Potassium Chloride (K-Dur -) 10 meq PO DAILY [facility] Last Admin: 07/09/20 10:01 Dose: 10 meq Documented by: Pregabalin (Lyrica -) 25 mg PO BID [facility] Last Admin: 07/09/20 10:01 Dose: 25 mg Documented by: Sacubitril/Valsartan (Entresto 24 Mg-26 Mg Tablet) 1 tab PO BID [facility] Last Admin: 07/09/20 09:58 Dose: 1 tab Documented by: Spironolactone (Aldactone -) 25 mg PO DAILY [facility] Last Admin: 07/09/20 10:00 Dose: 25 mg Documented by: Tiotropium [place] (Spiriva Respimat) 2 puff IH DAILY [facility] Last Admin: 07/09/20 10:04 Dose: 2 puff Documented by: - Objective Vital Signs: Vital Signs Temperature 98.6 F 07/09/20 06:00 Pulse Rate 76 07/09/20 06:00 Respiratory Rate 20 07/09/20 06:00 Blood Pressure 95/54 L 07/09/20 06:00 O2 Sat by Pulse Oximetry (%) 98 07/09/20 06:00 Constitutional: Yes: No Distress, Calm, Obese Cardiovascular: Yes: Regular Rate and Rhythm Respiratory: Yes: Regular, CTA Bilaterally Gastrointestinal: Yes: Normal Bowel Sounds, Soft Musculoskeletal: Yes: WNL Extremities: Yes: WNL Neurological: Yes: Alert, Oriented Psychiatric: Yes: Alert, Oriented Labs: CBC, BMP 07/08/20 06:45 07/09/20 10:00 INR, PTT INR 1.20 (0.83-1.09) H 07/05/20 15:55 Assessment/Plan Problem List - Problems (1) COPD exacerbation Code(s): J44.1 - CHRONIC OBSTRUCTIVE PULMONARY DISEASE W (ACUTE) EXACERBATION (2) Pneumonia Code(s): J18.9 - PNEUMONIA, UNSPECIFIED ORGANISM Qualifiers: Pneumonia type: due to unspecified organism Laterality: unspecified late rality Lung location: unspecified part of lung Qualified Code(s): J18.9 - Pneumonia, unspecified organism (3) Acute on chronic systolic (congestive) heart failure Code(s): I50.23 - ACUTE ON CHRONIC SYSTOLIC (CONGESTIVE) HEART FAILURE (4) Diabetes Code(s): E11.9 - TYPE 2 DIABETES MELLITUS WITHOUT COMPLICATIONS (5) Hyperlipidemia Code(s): E78.5 - HYPERLIPIDEMIA, UNSPECIFIED (6) Hypothyroidism Code(s): E03.9 - HYPOTHYROIDISM, UNSPECIFIED (7) Paroxysmal A-fib Code(s): I48.0 - PAROXYSMAL ATRIAL FIBRILLATION Assessment/Plan continue current mgmt doing well
--- NOTE | 2020-07-09 23:48 | PN ---
Progress Note, Physician History of Present Illness: Pt feeling better - Current Medication List Current Medications: Active Medications Albuterol Sulfate (Ventolin Hfa Inhaler -) 2 puff IH Q4H PRN PRN Reason: SHORT OF BREATH/WHEEZING Apixaban (Eliquis -) 5 mg PO BID [facility] Last Admin: 07/09/20 21:10 Dose: 5 mg Documented by: Aspirin (Ecotrin -) 81 mg PO DAILY [facility] Last Admin: 07/09/20 09:59 Dose: 81 mg Documented by: Budesonide/Formoterol Fumarate (Symbicort 160/4.5mcg -) 2 puff IH BID [facility] Last Admin: 07/09/20 21:12 Dose: 2 puff Documented by: Insulin Aspart (Novolog Vial Sliding Scale -) 1 vial SQ [facility]; Protocol Last Admin: 07/09/20 21:11 Dose: 4 units Documented by: Insulin Detemir (Levemir Vial) 10 units SQ HS [facility] Last Admin: 07/09/20 21:11 Dose: 10 units Documented by: Insulin Detemir (Levemir Vial) 20 units SQ AM [facility] Last Admin: 07/09/20 06:21 Dose: 20 units Documented by: Levothyroxine Sodium (Synthroid -) 75 mcg PO AM [facility] Last Admin: 07/09/20 06:14 Dose: 75 mcg Documented by: Metoprolol Succinate (Toprol Xl -) 25 mg PO DAILY [facility] Last Admin: 07/09/20 09:58 Dose: 25 mg Documented by: Pantoprazole Sodium (Protonix -) 40 mg PO DAILY [facility] Last Admin: 07/09/20 10:02 Dose: 40 mg Documented by: Potassium Chloride (K-Dur -) 10 meq PO DAILY [facility] Last Admin: 07/09/20 10:01 Dose: 10 meq Documented by: Pregabalin (Lyrica -) 25 mg PO BID [facility] Last Admin: 07/09/20 21:11 Dose: 25 mg Documented by: Sacubitril/Valsartan (Entresto 24 Mg-26 Mg Tablet) 1 tab PO BID [facility] Last Admin: 07/09/20 21:10 Dose: 1 tab Documented by: Spironolactone (Aldactone -) 25 mg PO DAILY [facility] Last Admin: 07/09/20 10:00 Dose: 25 mg Documented by: Tiotropium [place] (Spiriva Respimat) 2 puff IH DAILY [facility] Last Admin: 07/09/20 10:04 Dose: 2 puff Documented by: - Objective Vital Signs: Vital Signs Temperature 98.4 F 07/09/20 18:00 Pulse Rate 82 07/09/20 20:23 Respiratory Rate 22 H 07/09/20 20:23 Blood Pressure 125/55 L 07/09/20 20:23 O2 Sat by Pulse Oximetry (%) 100 07/09/20 21:00 Constitutional: Yes: Well Nourished Neck: Yes: WNL, Supple Cardiovascular: Yes: WNL, Regular Rate and Rhythm Respiratory: Yes: WNL, Regular, CTA Bilaterally Gastrointestinal: Yes: WNL, Normal Bowel Sounds, Soft Labs: CBC, BMP 07/08/20 06:45 07/09/20 10:00 INR, PTT INR 1.20 (0.83-1.09) H 07/05/20 15:55 Problem List - Problems (1) Acute on chronic systolic (congestive) heart failure Assessment/Plan: No IV access so pt was given torsemide Cont po lasix in am Probable dc planning for am Monitor electrolytes Code(s): I50.23 - ACUTE ON CHRONIC SYSTOLIC (CONGESTIVE) HEART FAILURE (2) Asthma Assessment/Plan: Cont inhalers Abnormal CT scan chest: ground glass opacities Repeat ct scan chest in 6-8 weeks Pt now off IV doxy for ?pneumonia Code(s): J45.909 - UNSPECIFIED ASTHMA, UNCOMPLICATED (3) CAD (coronary artery disease) Code(s): I25.10 - ATHSCL HEART DISEASE OF [place] CORONARY ARTERY W/O ANG PCTRS (4) Cardiomyopathy Code(s): I42.9 - CARDIOMYOPATHY, UNSPECIFIED (5) Diabetes Code(s): E11.9 - TYPE 2 DIABETES MELLITUS WITHOUT COMPLICATIONS (6) Elevated troponin Code(s): R79.89 - OTHER SPECIFIED ABNORMAL FINDINGS OF BLOOD CHEMISTRY (7) Hyperlipidemia Code(s): E78.5 - HYPERLIPIDEMIA, UNSPECIFIED (8) Hypertension Code(s): I10 - ESSENTIAL (PRIMARY) HYPERTENSION Qualifiers: (9) Hypothyroidism Code(s): E03.9 - HYPOTHYROIDISM, UNSPECIFIED (10) ICD (implantable cardioverter-defibrillator) in place Code(s): Z95.810 - PRESENCE OF AUTOMATIC (IMPLANTABLE) CARDIAC DEFIBRILLATOR (11) Morbid obesity Code(s): E66.01 - MORBID (SEVERE) OBESITY DUE TO EXCESS CALORIES (12) Paroxysmal A-fib Code(s): I48.0 - PAROXYSMAL ATRIAL FIBRILLATION (13) Sleep apnea Code(s): G47.30 - SLEEP APNEA, UNSPECIFIED
[2020-07-10] MEDS: LEVOTHYROXINE NA 75 MCG TABLET (FP) PO SCH (06:24)
[2020-07-10] MEDS: INSULIN SLIDING SCALE (NOVOLOG) 1 VIAL SQ SCH ×4 (06:24→21:50)
[2020-07-10] MEDS: INSULIN (LEVEMIR) 100 UNITS/ML UNITS SQ SCH ×2 (06:33→21:51)
[2020-07-10] MEDS: BUDESONIDE/FORMETEROL FUMARATE 160/4.5 mcg INHALER IH SCH ×2 (10:24→21:52)
[2020-07-10] MEDS: TIOTROPIUM BROMIDE 2.5 MCG (SPIRIVA) RESPIMAT INHALER IH SCH (10:24)
[2020-07-10] MEDS: PREGABALIN 25 MG CAPSULE PO SCH ×2 (10:24→21:51)
[2020-07-10] MEDS: PANTOPRAZOLE 40 MG TABLET PO SCH (10:25)
[2020-07-10] MEDS: APIXABAN 5 MG TABLET PO SCH ×2 (10:25→21:51)
[2020-07-10] MEDS: POTASSIUM CHLORIDE TABS 10 MEQ TABLET.ER (FP) PO SCH (10:25)
[2020-07-10] MEDS: ASPIRIN COATED 81 MG TABLET.EC PO SCH (10:25)
[2020-07-10] MEDS: metoPROLOL SUCCINATE 25 MG TAB.SR.24H (FP) PO SCH (10:39)
--- NOTE | 2020-07-10 11:33 | PN ---
Progress Note, Physician History of Present Illness: stable breathing well no new issues - Current Medication List Current Medications: Active Medications Albuterol Sulfate (Ventolin Hfa Inhaler -) 2 puff IH Q4H PRN PRN Reason: SHORT OF BREATH/WHEEZING Apixaban (Eliquis -) 5 mg PO BID [facility] Last Admin: 07/10/20 10:25 Dose: 5 mg Documented by: Aspirin (Ecotrin -) 81 mg PO DAILY [facility] Last Admin: 07/10/20 10:25 Dose: 81 mg Documented by: Budesonide/Formoterol Fumarate (Symbicort 160/4.5mcg -) 2 puff IH BID [facility] Last Admin: 07/10/20 10:24 Dose: 2 puff Documented by: Furosemide (Lasix -) 20 mg PO DAILY [facility] Insulin Aspart (Novolog Vial Sliding Scale -) 1 vial SQ [facility]; Protocol Last Admin: 07/10/20 06:24 Dose: 4 units Documented by: Insulin Detemir (Levemir Vial) 10 units SQ HS [facility] Last Admin: 07/09/20 21:11 Dose: 10 units Documented by: Insulin Detemir (Levemir Vial) 20 units SQ AM [facility] Last Admin: 07/10/20 06:33 Dose: 20 units Documented by: Levothyroxine Sodium (Synthroid -) 75 mcg PO AM [facility] Last Admin: 07/10/20 06:24 Dose: 75 mcg Documented by: Metoprolol Succinate (Toprol Xl -) 25 mg PO DAILY [facility] Last Admin: 07/10/20 10:39 Dose: 25 mg Documented by: Pantoprazole Sodium (Protonix -) 40 mg PO DAILY [facility] Last Admin: 07/10/20 10:25 Dose: 40 mg Documented by: Potassium Chloride (K-Dur -) 10 meq PO DAILY [facility] Last Admin: 07/10/20 10:25 Dose: 10 meq Documented by: Pregabalin (Lyrica -) 25 mg PO BID [facility] Last Admin: 07/10/20 10:24 Dose: 25 mg Documented by: Sacubitril/Valsartan (Entresto 24 Mg-26 Mg Tablet) 1 tab PO BID [facility] Last Admin: 07/09/20 21:10 Dose: 1 tab Documented by: Spironolactone (Aldactone -) 25 mg PO DAILY [facility] Last Admin: 07/09/20 10:00 Dose: 25 mg Documented by: Tiotropium [place] (Spiriva Respimat) 2 puff IH DAILY [facility] Last Admin: 07/10/20 10:24 Dose: 2 puff Documented by: - Objective Vital Signs: Vital Signs Temperature 98.3 F 07/10/20 10:34 Pulse Rate 100 H 07/10/20 10:34 Respiratory Rate 19 07/10/20 10:34 Blood Pressure 93/63 07/10/20 10:34 O2 Sat by Pulse Oximetry (%) 98 07/10/20 10:34 Constitutional: Yes: No Distress, Calm Cardiovascular: Yes: S1, S2 Respiratory: Yes: Regular, CTA Bilaterally Gastrointestinal: Yes: Normal Bowel Sounds, Soft Musculoskeletal: Yes: WNL Extremities: Yes: WNL Neurological: Yes: Alert, Oriented Psychiatric: Yes: Alert, Oriented Labs: CBC, BMP 07/08/20 06:45 07/09/20 10:00 INR, PTT INR 1.20 (0.83-1.09) H 07/05/20 15:55 Assessment/Plan Problem List - Problems (1) COPD exacerbation Code(s): J44.1 - CHRONIC OBSTRUCTIVE PULMONARY DISEASE W (ACUTE) EXACERBATION (2) Pneumonia Code(s): J18.9 - PNEUMONIA, UNSPECIFIED ORGANISM Qualifiers: Pneumonia type: due to unspecified organism Laterality: unspecified laterality Lung location: unspecified part of lung Qualified Code(s): J18.9 - Pneumonia, unspecified organism (3) Acute on chronic systolic (congestive) heart failure Code(s): I50.23 - ACUTE ON CHRONIC SYSTOLIC (CONGESTIVE) HEART FAILURE (4) Diabetes Code(s): E11.9 - TYPE 2 DIABETES MELLITUS WITHOUT COMPLICATIONS (5) Hyperlipidemia Code(s): E78.5 - HYPERLIPIDEMIA, UNSPECIFIED (6) Hypothyroidism Code(s): E03.9 - HYPOTHYROIDISM, UNSPECIFIED (7) Paroxysmal A-fib Code(s): I48.0 - PAROXYSMAL ATRIAL FIBRILLATION Assessment/Plan continue current mgmt doing well
--- NOTE | 2020-07-10 11:46 | PN ---
Progress Note (short form) - Note Progress Note: cc: dyspnea s: no chest pain, palps, dyspnea, edema dizzy, feels well, asking to go home Current Medications Generic Name Dose Route Start Last Admin Trade Name [place] PRN Reason Stop Dose Admin Albuterol Sulfate 2 puff 07/05/20 22:57 Ventolin Hfa Inhaler - IH Q4H PRN SHORT OF BREATH/WHEEZING Apixaban 5 mg 07/06/20 10:00 07/10/20 10:25 Eliquis - PO 5 mg BID [facility] Administration Aspirin 81 mg 07/06/20 10:00 07/10/20 10:25 Ecotrin - PO 81 mg DAILY [facility] Administration Budesonide/Formoterol Fumarate 2 puff 07/06/20 10:00 07/10/20 10:24 Symbicort 160/4.5mcg - IH 2 puff BID [facility] Administration Furosemide 20 mg 07/10/20 10:00 Lasix - PO DAILY [facility] Insulin Aspart 1 vial 07/07/20 22:00 07/10/20 11:37 Novolog Vial Sliding Scale - SQ 6 units ACHS [facility] Administration Protocol Insulin Detemir 10 units 07/06/20 22:00 07/09/20 21:11 Levemir Vial SQ 10 units HS [facility] Administration Insulin Detemir 20 units 07/06/20 07:00 07/10/20 06:33 Levemir Vial SQ 20 units AM [facility] Administration Levothyroxine Sodium 75 mcg 07/06/20 07:00 07/10/20 06:24 Synthroid - PO 75 mcg AM [facility] Administration Metoprolol Succinate 25 mg 07/06/20 10:00 07/10/20 10:39 Toprol Xl - PO 25 mg DAILY [facility] Administration Pantoprazole Sodium 40 mg 07/06/20 10:00 07/10/20 10:25 Protonix - PO 40 mg DAILY [facility] Administration Potassium Chloride 10 meq 07/06/20 10:00 07/10/20 10:25 K-Dur - PO 10 meq DAILY [facility] Administration Pregabalin 25 mg 07/06/20 10:00 07/10/20 10:24 Lyrica - PO 25 mg BID [facility] Administration Sacubitril/Valsartan 1 tab 07/05/20 23:00 07/09/20 21:10 Entresto 24 Mg-26 Mg Tablet PO 1 tab BID [facility] Administration Spironolactone 25 mg 07/06/20 10:00 07/09/20 10:00 Aldactone - PO 25 mg DAILY [facility] Administration Tiotropium [place] 2 puff 07/06/20 10:00 07/10/20 10:24 Spiriva Respimat IH 2 puff DAILY [facility] Administration Vital Signs Period Temp Pulse Resp BP Sys/Mcgrath Pulse Ox Last 24 Hr 97.5 F-98.4 F 74-100 19-26 93-125/55-72 95-100 Constitutional: Yes: No Distress Eyes: Yes: Conjunctiva Clear Cardiovascular: Yes: Regular Rate and Rhythm Respiratory: Yes: CTA Bilaterally (no active wheezing) Gastrointestinal: Yes: Soft, Abdomen, Obese Edema: No Neurological: Yes: Alert, Oriented no jaundice, diaphoresis not agitated CBC, BMP 07/08/20 06:45 07/09/20 10:00 Assessment/Plan IMP: Non ischemic CM s/p ICD Mild acute on chronic systolic CHF PAF Obesity Chronic asthma REC: 1. NICM w/ chronic systolic CHF, mild acute exacerbation: - improved, cont po lasix now - Cont Toprol, entresto and aldactone - pt has chronic baseline hypotension from syst chf with sbp in 90s at times, pt asymptomatic from this 2. PAF: -In sinus -cont Toprol, Eliquis 3. Obesity: -Diet and weight loss goals discussed 4. Chronic Asthma: -Stable -COVID 19 negative
[2020-07-10] MEDS: SPIRONOLACTONE 25 MG TABLET PO SCH (11:51)
[2020-07-10] MEDS: SACUBITRIL/VALSARTAN 24 MG-26 MG TABLET PO SCH ×2 (11:51→21:51)
[2020-07-10] MEDS: FUROSEMIDE 20 MG TABLET (FP) PO SCH (11:51)
--- NOTE | 2020-07-10 12:28 | PN ---
Progress Note (short form) - Note Progress Note: PULMONARY No shortness of breath, cough or wheezing. Vital Signs Period Temp Pulse Resp BP Sys/Mcgrath Pulse Ox Last 24 Hr 97.5 F-98.4 F 74-100 19-26 85-125/51-72 95-100 Gen: NAD at rest Heart: RRR Lung: decreased breath sounds at the bases Abd: soft, nontender Ext: no edema CBC, BMP 07/08/20 06:45 07/09/20 10:00 Active Medications Albuterol Sulfate (Ventolin Hfa Inhaler -) 2 puff IH Q4H PRN PRN Reason: SHORT OF BREATH/WHEEZING Apixaban (Eliquis -) 5 mg PO BID [facility] Last Admin: 07/10/20 10:25 Dose: 5 mg Documented by: Aspirin (Ecotrin -) 81 mg PO DAILY [facility] Last Admin: 07/10/20 10:25 Dose: 81 mg Documented by: Budesonide/Formoterol Fumarate (Symbicort 160/4.5mcg -) 2 puff IH BID [facility] Last Admin: 07/10/20 10:24 Dose: 2 puff Documented by: Furosemide (Lasix -) 20 mg PO DAILY [facility] Last Admin: 07/10/20 11:51 Dose: Not Given Documented by: Insulin Aspart (Novolog Vial Sliding Scale -) 1 vial SQ [facility]; Protocol Last Admin: 07/10/20 11:37 Dose: 6 units Documented by: Insulin Detemir (Levemir Vial) 10 units SQ HS [facility] Last Admin: 07/09/20 21:11 Dose: 10 units Documented by: Insulin Detemir (Levemir Vial) 20 units SQ AM [facility] Last Admin: 07/10/20 06:33 Dose: 20 units Documented by: Levothyroxine Sodium (Synthroid -) 75 mcg PO AM [facility] Last Admin: 07/10/20 06:24 Dose: 75 mcg Documented by: Metoprolol Succinate (Toprol Xl -) 25 mg PO DAILY [facility] Last Admin: 07/10/20 10:39 Dose: 25 mg Documented by: Pantoprazole Sodium (Protonix -) 40 mg PO DAILY [facility] Last Admin: 07/10/20 10:25 Dose: 40 mg Documented by: Potassium Chloride (K-Dur -) 10 meq PO DAILY [facility] Last Admin: 08/10/20 10:25 Dose: 10 meq Documented by: Pregabalin (Lyrica -) 25 mg PO BID [facility] Last Admin: 07/10/20 10:24 Dose: 25 mg Documented by: Sacubitril/Valsartan (Entresto 24 Mg-26 Mg Tablet) 1 tab PO BID [facility] Last Admin: 07/10/20 11:51 Dose: Not Given Documented by: Spironolactone (Aldactone -) 25 mg PO DAILY [facility] Last Admin: 07/10/20 11:51 Dose: Not Given Documented by: Tiotropium [place] (Spiriva Respimat) 2 puff IH DAILY [facility] Last Admin: 07/10/20 10:24 Dose: 2 puff Documented by: A/P Acute on Chronic Systolic Heart Failure Paroxysmal Atrial Fibrillation Asthma Morbid Obesity Hypothyroidism DM - continue lasix, aldactone - monitor urine output, creatinine - inhaled bronchodilators - O2 as needed - rate control - continue anticoagulation - DVT prophylaxis
[2020-07-10] MEDS ORDERED: ACETAMINOPHEN 325 MG TABLET (FP) PO ONE (13:00)
--- NOTE | 2020-07-10 17:39 | PN ---
Progress Note, Physician History of Present Illness: no complaints - Current Medication List Current Medications: Active Medications Albuterol Sulfate (Ventolin Hfa Inhaler -) 2 puff IH Q4H PRN PRN Reason: SHORT OF BREATH/WHEEZING Apixaban (Eliquis -) 5 mg PO BID [facility] Last Admin: 07/10/20 10:25 Dose: 5 mg Documented by: Aspirin (Ecotrin -) 81 mg PO DAILY [facility] Last Admin: 07/10/20 10:25 Dose: 81 mg Documented by: Budesonide/Formoterol Fumarate (Symbicort 160/4.5mcg -) 2 puff IH BID [facility] Last Admin: 07/10/20 10:24 Dose: 2 puff Documented by: Furosemide (Lasix -) 20 mg PO DAILY [facility] Last Admin: 07/10/20 11:51 Dose: Not Given Documented by: Insulin Aspart (Novolog Vial Sliding Scale -) 1 vial SQ [facility]; Protocol Last Admin: 07/10/20 16:17 Dose: Not Given Documented by: Insulin Detemir (Levemir Vial) 10 units SQ HS [facility] Last Admin: 07/09/20 21:11 Dose: 10 units Documented by: Insulin Detemir (Levemir Vial) 20 units SQ AM [facility] Last Admin: 07/10/20 06:33 Dose: 20 units Documented by: Levothyroxine Sodium (Synthroid -) 75 mcg PO AM [facility] Last Admin: 07/10/20 06:24 Dose: 75 mcg Documented by: Metoprolol Succinate (Toprol Xl -) 25 mg PO DAILY [facility] Last Admin: 07/10/20 10:39 Dose: 25 mg Documented by: Pantoprazole Sodium (Protonix -) 40 mg PO DAILY [facility] Last Admin: 07/10/20 10:25 Dose: 40 mg Documented by: Potassium Chloride (K-Dur -) 10 meq PO DAILY [facility] Last Admin: 07/10/20 10:25 Dose: 10 meq Documented by: Pregabalin (Lyrica -) 25 mg PO BID [facility] Last Admin: 07/10/20 10:24 Dose: 25 mg Documented by: Sacubitril/Valsartan (Entresto 24 Mg-26 Mg Tablet) 1 tab PO BID [facility] Last Admin: 07/10/20 11:51 Dose: Not Given Documented by: Spironolactone (Aldactone -) 25 mg PO DAILY [facility] Last Admin: 07/10/20 11:51 Dose: Not Given Documented by: Tiotropium [place] (Spiriva Respimat) 2 puff IH DAILY [facility] Last Admin: 07/10/20 10:24 Dose: 2 puff Documented by: - Objective Vital Signs: Vital Signs Temperature 98.8 F 07/10/20 15:00 Pulse Rate 87 07/10/20 15:00 Respiratory Rate 19 07/10/20 15:00 Blood Pressure 105/61 07/10/20 15:00 O2 Sat by Pulse Oximetry (%) 97 07/10/20 15:00 Constitutional: Yes: No Distress HENT: Yes: Atraumatic Neck: Yes: Supple Cardiovascular: Yes: Regular Rate and Rhythm Respiratory: Yes: Rhonchi Gastrointestinal: Yes: Normal Bowel Sounds Extremities: Yes: WNL Neurological: Yes: Alert, Oriented Labs: CBC, BMP 07/08/20 06:45 07/09/20 10:00 INR, PTT INR 1.20 (0.83-1.09) H 07/05/20 15:55 Problem List - Problems (1) COPD exacerbation Assessment/Plan: STABLE Code(s): J44.1 - CHRONIC OBSTRUCTIVE PULMONARY DISEASE W (ACUTE) EXACERBATION (2) Pneumonia Assessment/Plan: NOT ON ABX NOW Code(s): J18.9 - PNEUMONIA, UNSPECIFIED ORGANISM Qualifiers: Pneumonia type: due to unspecified organism Laterality: unspecified laterality Lung location: unspecified part of lung Qualified Code(s): J18.9 - Pneumonia, unspecified organism (3) Acute on chronic systolic (congestive) heart failure Code(s): I50.23 - ACUTE ON CHRONIC SYSTOLIC (CONGESTIVE) HEART FAILURE (4) Diabetes Assessment/Plan: ON INSULIN AND BGMS Code(s): E11.9 - TYPE 2 DIABETES MELLITUS WITHOUT COMPLICATIONS (5) Hyperlipidemia Code(s): E78.5 - HYPERLIPIDEMIA, UNSPECIFIED (6) Hypothyroidism Assessment/Plan: ON MEDS Code(s): E03.9 - HYPOTHYROIDISM, UNSPECIFIED (7) Paroxysmal A-fib Assessment/Plan: ON BB ON AC Code(s): I48.0 - PAROXYSMAL ATRIAL FIBRILLATION (8) Hypertension Assessment/Plan: BP WAS LOW NOW BETTER MONITOR Code(s): I10 - ESSENTIAL (PRIMARY) HYPERTENSION Qualifiers: Assessment/Plan FOR DR AVENDANO TODAY
[2020-07-10] MEDS ORDERED: INSULIN (NOVOLOG) ASPART 100 UNITS/ML 10ML VIAL ONE ×2 (19:26→21:37)
[2020-07-10] MEDS ORDERED: PT OWN MED DRAWER 7, Y5N ONE (19:26)
[2020-07-11] MEDS: INSULIN (LEVEMIR) 100 UNITS/ML UNITS SQ SCH (06:11)
[2020-07-11] MEDS: INSULIN SLIDING SCALE (NOVOLOG) 1 VIAL SQ SCH ×2 (06:13→12:19)
[2020-07-11] MEDS: LEVOTHYROXINE NA 75 MCG TABLET (FP) PO SCH (06:14)
[2020-07-11] MEDS: APIXABAN 5 MG TABLET PO SCH (10:28)
[2020-07-11] MEDS: SACUBITRIL/VALSARTAN 24 MG-26 MG TABLET PO SCH (10:28)
[2020-07-11] MEDS: metoPROLOL SUCCINATE 25 MG TAB.SR.24H (FP) PO SCH (10:28)
[2020-07-11] MEDS: ASPIRIN COATED 81 MG TABLET.EC PO SCH (10:28)
[2020-07-11] MEDS: FUROSEMIDE 20 MG TABLET (FP) PO SCH (10:28)
[2020-07-11] MEDS: POTASSIUM CHLORIDE TABS 10 MEQ TABLET.ER (FP) PO SCH (10:28)
[2020-07-11] MEDS: PREGABALIN 25 MG CAPSULE PO SCH (10:28)
[2020-07-11] MEDS: SPIRONOLACTONE 25 MG TABLET PO SCH (10:28)
[2020-07-11] MEDS: PANTOPRAZOLE 40 MG TABLET PO SCH (10:28)
[2020-07-11] MEDS: BUDESONIDE/FORMETEROL FUMARATE 160/4.5 mcg INHALER IH SCH (10:31)
[2020-07-11] MEDS: TIOTROPIUM BROMIDE 2.5 MCG (SPIRIVA) RESPIMAT INHALER IH SCH (10:31)
--- NOTE | 2020-07-11 11:13 | PN ---
Progress Note, Physician History of Present Illness: stable no new issues - Current Medication List Current Medications: Active Medications Albuterol Sulfate (Ventolin Hfa Inhaler -) 2 puff IH Q4H PRN PRN Reason: SHORT OF BREATH/WHEEZING Apixaban (Eliquis -) 5 mg PO BID [facility] Last Admin: 07/11/20 10:28 Dose: 5 mg Documented by: Aspirin (Ecotrin -) 81 mg PO DAILY [facility] Last Admin: 07/11/20 10:28 Dose: 81 mg Documented by: Budesonide/Formoterol Fumarate (Symbicort 160/4.5mcg -) 2 puff IH BID [facility] Last Admin: 07/11/20 10:31 Dose: 2 puff Documented by: Furosemide (Lasix -) 20 mg PO DAILY [facility] Last Admin: 07/11/20 10:28 Dose: 20 mg Documented by: Insulin Aspart (Novolog Vial Sliding Scale -) 1 vial SQ [facility]; Protocol Last Admin: 07/11/20 06:13 Dose: 6 units Documented by: Insulin Detemir (Levemir Vial) 10 units SQ HS [facility] Last Admin: 07/10/20 21:51 Dose: 10 units Documented by: Insulin Detemir (Levemir Vial) 20 units SQ AM [facility] Last Admin: 07/11/20 06:11 Dose: 20 units Documented by: Levothyroxine Sodium (Synthroid -) 75 mcg PO AM [facility] Last Admin: 07/11/20 06:14 Dose: 75 mcg Documented by: Metoprolol Succinate (Toprol Xl -) 25 mg PO DAILY [facility] Last Admin: 07/11/20 10:28 Dose: 25 mg Documented by: Pantoprazole Sodium (Protonix -) 40 mg PO DAILY [facility] Last Admin: 07/11/20 10:28 Dose: 40 mg Documented by: Potassium Chloride (K-Dur -) 10 meq PO DAILY [facility] Last Admin: 07/11/20 10:28 Dose: 10 meq Documented by: Pregabalin (Lyrica -) 25 mg PO BID [facility] Last Admin: 07/11/20 10:28 Dose: 25 mg Documented by: Sacubitril/Valsartan (Entresto 24 Mg-26 Mg Tablet) 1 tab PO BID [facility] Last Admin: 07/11/20 10:28 Dose: 1 tab Documented by: Spironolactone (Aldactone -) 25 mg PO DAILY [facility] Last Admin: 07/11/20 10:28 Dose: 25 mg Documented by: Tiotropium [place] (Spiriva Respimat) 2 puff IH DAILY [facility] Last Admin: 07/11/20 10:31 Dose: 2 puff Documented by: - Objective Vital Signs: Vital Signs Temperature 97.6 F 07/11/20 06:00 Pulse Rate 77 07/11/20 06:00 Respiratory Rate 18 07/11/20 06:00 Blood Pressure 94/78 07/11/20 06:00 O2 Sat by Pulse Oximetry (%) 100 07/11/20 06:00 Constitutional: Yes: No Distress, Calm Cardiovascular: Yes: S1, S2 Respiratory: Yes: Regular, CTA Bilaterally Gastrointestinal: Yes: Normal Bowel Sounds, Soft Musculoskeletal: Yes: WNL Extremities: Yes: WNL Neurological: Yes: Alert, Oriented Psychiatric: Yes: Alert, Oriented Labs: CBC, BMP 07/08/20 06:45 07/09/20 10:00 INR, PTT INR 1.20 (0.83-1.09) H 07/05/20 15:55 Assessment/Plan Problem List - Problems (1) COPD exacerbation Code(s): J44.1 - CHRONIC OBSTRUCTIVE PULMONARY DISEASE W (ACUTE) EXACERBATION (2) Pneumonia Code(s): J18.9 - PNEUMONIA, UNSPECIFIED ORGANISM Qualifiers: Pneumonia type: due to unspecified organism Laterality: unspecified laterality Lung location: unspecified part of lung Qualified Code(s): J18.9 - Pneumonia, unspecified organism (3) Acute on chronic systolic (congestive) heart failure Code(s): I50.23 - ACUTE ON CHRONIC SYSTOLIC (CONGESTIVE) HEART FAILURE (4) Diabetes Code(s): E11.9 - TYPE 2 DIABETES MELLITUS WITHOUT COMPLICATIONS (5) Hyperlipidemia Code(s): E78.5 - HYPERLIPIDEMIA, UNSPECIFIED (6) Hypothyroidism Code(s): E03.9 - HYPOTHYROIDISM, UNSPECIFIED (7) Paroxysmal A-fib Code(s): I48.0 - PAROXYSMAL ATRIAL FIBRILLATION Assessment/Plan continue current mgmt doing well
--- NOTE | 2020-07-11 11:24 | PN ---
Progress Note (short form) - Note Progress Note: cc: dyspnea s: no chest pain, palps, dyspnea, edema, dizziness Current Medications Generic Name Dose Route Start Last Admin Trade Name Freq PRN Reason Stop Dose Admin Albuterol Sulfate 2 puff 07/05/20 22:57 Ventolin Hfa Inhaler - IH Q4H PRN SHORT OF BREATH/WHEEZING Apixaban 5 mg 07/06/20 10:00 07/11/20 10:28 Eliquis - PO 5 mg BID DOM Administration Aspirin 81 mg 07/06/20 10:00 07/11/20 10:28 Ecotrin - PO 81 mg DAILY [facility] Administration Budesonide/Formoterol Fumarate 2 puff 07/06/20 10:00 07/11/20 10:31 Symbicort 160/4.5mcg - IH 2 puff BID DOM Administration Furosemide 20 mg 07/10/20 10:00 07/11/20 10:28 Lasix - PO 20 mg DAILY [facility] Administration Insulin Aspart 1 vial 07/07/20 22:00 07/11/20 06:13 Novolog Vial Sliding Scale - SQ 6 units ACHS DOM Administration Protocol Insulin Detemir 10 units 07/06/20 22:00 07/10/20 21:51 Levemir Vial SQ 10 units HS O[facility] Administration Insulin Detemir 20 units 07/06/20 07:00 07/11/20 06:11 Levemir Vial SQ 20 units AM DOM Administration Levothyroxine Sodium 75 mcg 07/06/20 07:00 07/11/20 06:14 Synthroid - PO 75 mcg AM DOM Administration Metoprolol Succinate 25 mg 07/06/20 10:00 07/11/20 10:28 Toprol Xl - PO 25 mg DAILY [facility] Administration Pantoprazole Sodium 40 mg 07/06/20 10:00 07/11/20 10:28 Protonix - PO 40 mg DAILY [facility] Administration Potassium Chloride 10 meq 07/06/20 10:00 07/11/20 10:28 K-Dur - PO 10 meq DAILY [facility] Administration Pregabalin 25 mg 07/06/20 10:00 07/11/20 10:28 Lyrica - PO 25 mg BID DOM Administration Sacubitril/Valsartan 1 tab 07/05/20 23:00 07/11/20 10:28 Entresto 24 Mg-26 Mg Tablet PO 1 tab BID [facility] Administration Spironolactone 25 mg 07/06/20 10:00 07/11/20 10:28 Aldactone - PO 25 mg DAILY [facility] Administration Tiotropium [place] 2 puff 07/06/20 10:00 07/11/20 10:31 Spiriva Respimat IH 2 puff DAILY [facility] Administration Vital Signs Period Temp Pulse Resp BP Sys/Mcgrath Pulse Ox Last 24 Hr 97 F-98.8 F 77-97 18-19 85-135/51-78 97-100 Constitutional: Yes: No Distress Eyes: Yes: Conjunctiva Clear Cardiovascular: Yes: Regular Rate and Rhythm Respiratory: Yes: CTA Bilaterally (no active wheezing) Gastrointestinal: Yes: Soft, Abdomen, Obese Edema: No Neurological: Yes: Alert, Oriented no jaundice, diaphoresis not agitated Assessment/Plan IMP: Non ischemic CM s/p ICD Mild acute on chronic systolic CHF PAF Obesity Chronic asthma REC: 1. NICM w/ chronic systolic CHF, mild acute exacerbation: - improved, cont po lasix - Cont Toprol, entresto and aldactone - pt has chronic baseline hypotension from syst chf with sbp in 90s at times, pt asymptomatic from this 2. PAF: -In sinus -cont Toprol, Eliquis 3. Obesity: -Diet and weight loss goals discussed 4. Chronic Asthma: -Stable -COVID 19 negative stable for dc from cardiac perspective
--- NOTE | 2020-07-11 11:42 | PN ---
Progress Note, Physician History of Present Illness: PULMONARY ALERT,COMFORTABLE,-SOB,-CP - Current Medication List Current Medications: Active Medications Albuterol Sulfate (Ventolin Hfa Inhaler -) 2 puff IH Q4H PRN PRN Reason: SHORT OF BREATH/WHEEZING Apixaban (Eliquis -) 5 mg PO BID [facility] Last Admin: 07/11/20 10:28 Dose: 5 mg Documented by: Aspirin (Ecotrin -) 81 mg PO DAILY [facility] Last Admin: 07/11/20 10:28 Dose: 81 mg Documented by: Budesonide/Formoterol Fumarate (Symbicort 160/4.5mcg -) 2 puff IH BID [facility] Last Admin: 07/11/20 10:31 Dose: 2 puff Documented by: Furosemide (Lasix -) 20 mg PO DAILY [facility] Last Admin: 07/11/20 10:28 Dose: 20 mg Documented by: Insulin Aspart (Novolog Vial Sliding Scale -) 1 vial SQ [facility]; Protocol Last Admin: 07/11/20 06:13 Dose: 6 units Documented by: Insulin Detemir (Levemir Vial) 10 units SQ HS [facility] Last Admin: 07/10/20 21:51 Dose: 10 units Documented by: Insulin Detemir (Levemir Vial) 20 units SQ AM [facility] Last Admin: 07/11/20 06:11 Dose: 20 units Documented by: Levothyroxine Sodium (Synthroid -) 75 mcg PO AM [facility] Last Admin: 07/11/20 06:14 Dose: 75 mcg Documented by: Metoprolol Succinate (Toprol Xl -) 25 mg PO DAILY [facility] Last Admin: 07/11/20 10:28 Dose: 25 mg Documented by: Pantoprazole Sodium (Protonix -) 40 mg PO DAILY [facility] Last Admin: 07/11/20 10:28 Dose: 40 mg Documented by: Potassium Chloride (K-Dur -) 10 meq PO DAILY [facility] Last Admin: 07/11/20 10:28 Dose: 10 meq Documented by: Pregabalin (Lyrica -) 25 mg PO BID [facility] Last Admin: 07/11/20 10:28 Dose: 25 mg Documented by: Sacubitril/Valsartan (Entresto 24 Mg-26 Mg Tablet) 1 tab PO BID [facility] Last Admin: 07/11/20 10:28 Dose: 1 tab Documented by: Spironolactone (Aldactone -) 25 mg PO DAILY [facility] Last Admin: 07/11/20 10:28 Dose: 25 mg Documented by: Tiotropium [place] (Spiriva Respimat) 2 puff IH DAILY [facility] Last Admin: 07/11/20 10:31 Dose: 2 puff Documented by: - Objective Vital Signs: Vital Signs Temperature 97.6 F 07/11/20 06:00 Pulse Rate 77 07/11/20 06:00 Respiratory Rate 18 07/11/20 06:00 Blood Pressure 94/78 07/11/20 06:00 O2 Sat by Pulse Oximetry (%) 100 07/11/20 06:00 Constitutional: Yes: Calm, Obese Eyes: Yes: WNL HENT: Yes: WNL Neck: Yes: WNL Cardiovascular: Yes: Regular Rate and Rhythm, S1, S2 Respiratory: Yes: CTA Bilaterally Gastrointestinal: Yes: Normal Bowel Sounds, Soft Extremities: Yes: WNL Edema: No Labs: CBC, BMP 07/08/20 06:45 07/09/20 10:00 INR, PTT INR 1.20 (0.83-1.09) H 07/05/20 15:55 Assessment/Plan Problem List - Problems (1) Dyspnea Code(s): R06.00 - DYSPNEA, UNSPECIFIED Qualifiers: Dyspnea type: shortness of breath Qualified Code(s): R06.02 - Shortness of breath; R06.00 - Dyspnea, unspecified; R06.01 - Orthopnea (2) Acute on chronic systolic (congestive) heart failure Code(s): I50.23 - ACUTE ON CHRONIC SYSTOLIC (CONGESTIVE) HEART FAILURE (3) CAD (coronary artery disease) Code(s): I25.10 - ATHSCL HEART DISEASE OF [place] CORONARY ARTERY W/O ANG PCTRS (4) Cardiomyopathy Code(s): I42.9 - CARDIOMYOPATHY, UNSPECIFIED (5) Elevated troponin Code(s): R79.89 - OTHER SPECIFIED ABNORMAL FINDINGS OF BLOOD CHEMISTRY (6) ICD (implantable cardioverter-defibrillator) in place Code(s): Z95.810 - PRESENCE OF AUTOMATIC (IMPLANTABLE) CARDIAC DEFIBRILLATOR (7) Morbid obesity Code(s): E66.01 - MORBID (SEVERE) OBESITY DUE TO EXCESS CALORIES (8) Sleep apnea Code(s): G47.30 - SLEEP APNEA, UNSPECIFIED Assessment/Plan O2 NEEDED INHALED BRONCHODILATORS DIURETICS ANTICOAGULATION DR GANN
[2020-07-11 13:06] VITALS: BP 112/54; PULSE 94; TEMP 98.3
--- NOTE | 2020-07-23 23:26 | DS ---
Physical Examination Vital Signs: Vital Signs Temperature 98.3 F 07/11/20 10:00 Pulse Rate 94 H 07/11/20 10:00 Respiratory Rate 18 07/11/20 10:00 Blood Pressure 112/54 L 07/11/20 10:00 O2 Sat by Pulse Oximetry (%) 95 07/11/20 10:00 Labs: CBC, BMP 07/08/20 06:45 07/09/20 10:00 Discharge Summary Problems reviewed: Yes Reason For Visit: SHORTNESS OF BREATH AT REST ACUTE ON CHRONIC SYSTO Acute on chronic systolic heart failure HTN HLD Anemia Asthma Sleep apnea Morbid obesity Diabetes Cardiomyopathy ICD Hypothyroidism Anemia Paroysmal Afib CAD Hospital Course: Pt is a 60 y/o female with PMH significant for severe systolic CHF, (s/p ICD and coronary stent in 2009), Afib, DM, anemia, hypothyroidism, morbid obesity, asthma, sleep apnea, HTN, HLD, chronic mild TNI elevation, chronic lower back pain with sciatica (pt still tries to walk every day), who presents with chest pain and shortness of breath for several days. Pt was admitted to tele and started on IV lasix w/ improvement of acute on chronic CHF. Pt was followed by cardio/pulmonary. Pt was changed to po lasix and dc'ed home. Elevated troponin is due to demenad ischemia Condition: Good - Instructions Diet, Activity, Other Instructions: 2 gram sodium and diabetic diet See Dr Reece Lanza in 1 week See your chemicals distiller in 1 week Disposition: HOME - Home Medications Comprehensive Discharge Medication List: Ambulatory Orders Insulin Glargine,Hum.rec.anlog [Lantus Solostar PEN -] 20 units SQ AM 08/09/16 Budesonide/Formeterol Fumarate [SYMBICORT 160/4.5mcg -] 2 puff PO BID 10/14/16 Albuterol 2.5/Ipratropium 0.5 [Duoneb -] 1 amp NEB Q6H PRN #90 amp 05/21/19 Levothyroxine [Synthroid -] 75 mcg PO DAILY #30 tablet 05/21/19 Insulin Glargine,Hum.rec.anlog [Lantus Solostar PEN -] 10 units SQ HS 08/13/19 Metoprolol Succinate [Toprol XL -] 25 mg PO DAILY 10/10/19 Apixaban [Eliquis -] 5 mg PO BID 11/02/19 Linaclotide [Linzess] 290 mcg PO DAILY 11/02/19 Sacubitril/Valsartan [Entresto 24 mg-26 mg Tablet] 1 each PO ASDIR 11/02/19 Albuterol 0.083% Nebulizer Jyothi [Ventolin 0.083% Nebulizer Soln -] 1 amp NEB Q4H PRN amp 12/13/19 Spironolactone [Aldactone -] 25 mg PO DAILY tablet 12/13/19 Aspirin Coated [Ecotrin -] 81 mg PO DAILY #30 tablet.ec 12/27/19 Potassium Chloride 10 meq PO DAILY 01/15/20 Pregabalin [Lyrica -] 25 mg PO BID 01/15/20 Tiotropium [place] [Spiriva Respimat] 2 puff IH DAILY #1 mist.inhal 01/15/20 Albuterol 0.083% Nebulizer Jyothi [Ventolin 0.083% Nebulizer Soln -] 1 amp NEB Q4H PRN #0 amp 01/20/20 Furosemide [Lasix -] 20 mg PO DAILY #30 tablet 01/20/20 Montelukast Na [Singulair -] 10 mg PO HS #30 tablet 01/20/20 Pantoprazole Sodium [Protonix -] 40 mg PO DAILY #30 tablet.ec 01/20/20 Potassium Chloride [K-Dur -] 10 meq PO DAILY #30 tablet.er 01/20/20 Furosemide [Lasix -] 20 mg PO DAILY tablet 02/23/20 Ondansetron [Zofran *Odt*] 4 mg SL TID PRN #10 od.tablet 03/04/20 Furosemide [Lasix -] 20 mg PO DAILY tablet 05/28/20 Sacubitril/Valsartan [Entresto 24 mg-26 mg Tablet] 1 tab PO BID #60 tablet Furosemide [Lasix -] 20 mg PO DAILY tablet 07/11/20 Furosemide [Lasix] 20 mg PO Q2D #30 tablet 07/22/20 Furosemide [Lasix] 40 mg PO Q2D #30 tablet 07/22/20
== END 2020-07-11 13:39 | disposition home or self-care (01) | DRG 291 ==
LOC: JER 15:06 → JERBED 19:12 → J5S 21:45
PROVIDERS: ADMIT Internal Medicine; ATTEND Internal Medicine
DX: I11.0 Hypertensive heart disease with heart failure (principal); J18.9 Pneumonia, unspecified organism; Z68.41 Body mass index [BMI] 40.0-44.9, adult; J44.1 Chronic obstructive pulmonary disease with (acute) exacerbation; I50.23 Acute on chronic systolic (congestive) heart failure; I42.8 Other cardiomyopathies; I25.10 Atherosclerotic heart disease of native coronary artery without angina pectoris; R79.89 Other specified abnormal findings of blood chemistry; Z95.810 Presence of automatic (implantable) cardiac defibrillator; E66.01 Morbid (severe) obesity due to excess calories; G47.30 Sleep apnea, unspecified; I48.0 Paroxysmal atrial fibrillation; E11.22 Type 2 diabetes mellitus with diabetic chronic kidney disease; E03.9 Hypothyroidism, unspecified; E78.5 Hyperlipidemia, unspecified; J45.909 Unspecified asthma, uncomplicated; G47.33 Obstructive sleep apnea (adult) (pediatric); K43.2 Incisional hernia without obstruction or gangrene; R07.9 Chest pain, unspecified; D64.9 Anemia, unspecified; M54.5 Low back pain
CPT/HCPCS: 36415; 36600; 71045-TC-FY; 71250-TC; 80048; 80053; 81003; 82550; 82803; 82962; 83735; 83880; 84443; 84484; 85025; 85610; 85730; 87040; 87086; 93005; 93010; 94660; 99285-25; J0131; U0003

== ENCOUNTER 2020-07-19 22:44 | Inpatient (IN) | payer OTHER ==
--- NOTE | 2020-07-19 22:49 | PDOC ---
History of Present Illness - General Chief Complaint: Shortness of Breath Stated Complaint: SHORTNESS OF BREATH Time Seen by Provider: 07/19/20 22:49 History Source: Patient, EMS Exam Limitations: No Limitations - History of Present Illness Initial Comments: 07/19/20 22:49 Madhuri Cho is a 60F with PMH severe systolic CHF s/p ICD and 2010 stenting, AFIB on Eliquis, DM, anemia, hypothyroidism, morbid obesity, asthma, VAHID, HTN, HLD, chronic trop leak, chronic lower back pain with sciatica, BIBA for SOB. EMS reports crackles on lung exam, placed on CPAP. 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 At home, was in bed and began having SOB, tried using albuterol nebs with no effect, began having stabbing chest pain, EMS called. Is SOB at baseline, cannot walk far without [place]. Has known PMH HF, on Eliquis for AFIB, as well as COPD and VAHID on CPAP. Takes Lasix 20mg but has low urine output. Has not had SOB like this before. Also having fevers and nausea, poor PO intake, no diarrhea, no sick contacts. PSH with complicated wound healing PMD Reece Lanza Card [facility] Past History - Medical History Allergies/Adverse Reactions: Allergies Allergy/AdvReac Type Severity Reaction Status Date / Time tomato Allergy Mild Hives Verified 07/19/20 22:49 chlorpheniramine Allergy Verified 07/19/20 22:49 cimetidine Allergy Verified 07/19/20 22:49 codeine [Codeine] Allergy Verified 07/19/20 22:49 ibuprofen Allergy Verified 07/19/20 22:49 latex [Latex] Allergy Verified 07/19/20 22:49 Latex, Natural Rubber Allergy Verified 07/19/20 22:49 pseudoephedrine Allergy Verified 07/19/20 22:49 salmeterol xinafoate Allergy Verified 07/19/20 22:49 [From Advair Diskus] shellfish derived Allergy Verified 07/19/20 22:49 Sulfa (Sulfonamide Allergy Verified 07/19/20 22:49 Antibiotics) [Sulfa(Sulfonamide Antibiotics)] Chocolate Allergy Mild Hives Uncoded 07/19/20 22:49 shrimp Allergy Mild Hives Uncoded 08/19/20 22:49 Home Medications: Ambulatory Orders Insulin Glargine,Hum.rec.anlog [Lantus Solostar PEN -] 20 units SQ AM 08/09/16 Budesonide/Formeterol Fumarate [SYMBICORT 160/4.5mcg -] 2 puff PO BID 10/14/16 Albuterol 2.5/Ipratropium 0.5 [Duoneb -] 1 amp NEB Q6H PRN #90 amp 05/21/19 Levothyroxine [Synthroid -] 75 mcg PO DAILY #30 tablet 05/21/19 Insulin Glargine,Hum.rec.anlog [Lantus Solostar PEN -] 10 units SQ HS 08/13/19 Metoprolol Succinate [Toprol XL -] 25 mg PO DAILY 10/10/19 Apixaban [Eliquis -] 5 mg PO BID 11/02/19 Linaclotide [Linzess] 290 mcg PO DAILY 11/02/19 Sacubitril/Valsartan [Entresto 24 mg-26 mg Tablet] 1 each PO ASDIR 11/02/19 Furosemide [Lasix -] 20 mg PO DAILY #30 tablet 11/06/19 Albuterol 0.083% Nebulizer Jyothi [Ventolin 0.083% Nebulizer Soln -] 1 amp NEB Q4H PRN amp 12/13/19 Spironolactone [Aldactone -] 25 mg PO DAILY tablet 12/13/19 Aspirin Coated [Ecotrin -] 81 mg PO DAILY #30 tablet.ec 12/27/19 Potassium Chloride 10 meq PO DAILY 01/15/20 Pregabalin [Lyrica -] 25 mg PO BID 01/15/20 Tiotropium [place] [Spiriva Respimat] 2 puff IH DAILY #1 mist.inhal 01/15/20 Albuterol 0.083% Nebulizer Jyothi [Ventolin 0.083% Nebulizer Soln -] 1 amp NEB Q4H PRN #0 amp 01/20/20 Furosemide [Lasix -] 20 mg PO DAILY #30 tablet 01/20/20 Montelukast Na [Singulair -] 10 mg PO HS #30 tablet 01/20/20 Pantoprazole Sodium [Protonix -] 40 mg PO DAILY #30 tablet.ec 02/20/20 Potassium Chloride [K-Dur -] 10 meq PO DAILY #30 tablet.er 01/20/20 Furosemide [Lasix -] 20 mg PO DAILY tablet 02/23/20 Ondansetron [Zofran *Odt*] 4 mg SL TID PRN #10 od.tablet 03/04/20 Furosemide [Lasix -] 20 mg PO DAILY tablet 05/28/20 Sacubitril/Valsartan [Entresto 24 mg-26 mg Tablet] 1 tab PO BID #60 tablet 05/28/20 Furosemide [Lasix -] 20 mg PO DAILY tablet 07/11/20 Anemia: Yes Asthma: Yes Cancer: No Cardiac Disorders: Yes (HI X 2, pacemaker, Afib) CVA: No COPD: Yes CHF: Yes (S/P ICD) DVT: No Dementia: No Diabetes: Yes GI Disorders: Yes (PEPTIC ULCER) Disorders: (CKD) HTN: Yes Hypercholesterolemia: Yes Liver Disease: No Psychiatric Problems: Yes (DEPRESSION) Seizures: No Thyroid Disease: Yes (hypo) - Surgical History Abdominal Surgery: Yes Appendectomy: No Cardiac Surgery: Yes (pacemaker and stents) Cholecystectomy: Yes GI Surgery: Yes (CHOLECYSTECTOMY, HYSTERECTOMY) Lung Surgery: No Neurologic Surgery: No Orthopedic Surgery: Yes (bilateral knee replacement) - Immunization History Immunization Up to Date: No - Psycho-Social/Smoking History Smoking Status: No Smoking History: Never smoked Have you smoked in the past 12 months: No Number of Cigarettes Smoked Daily: 0 Review of Systems - Review of Systems Able to Perform ROS?: Yes Constitutional: Yes: Chills, Fever HEENTM: No: Symptoms Reported Respiratory: Yes: Shortness of Breath, SOB with Exertion, SOB at Rest. No: Cough, Wheezing Cardiac (ROS): Yes: Chest Pain. No: Irregular Heart Rate, Lightheadedness, Palpitations, Syncope ABD/GI: Yes: Nausea, Poor Appetite, Poor Fluid Intake. No: Constipated, Diarrhea, Difficulty Swallowing, Vomiting : No: Symptoms Reported Musculoskeletal: No: Symptoms Reported Integumentary: No: Symptoms Reported Neurological: No: Symptoms reported Endocrine: No: Symptoms Reported Hematologic/Lymphatic: No: Symptoms Reported All Other Systems: Reviewed and Negative *Physical Exam - Physical Exam General Appearance: Yes: Nourished, Appropriately Dressed, Other (on BiPAP, tolerating well, in NAD). No: Apparent Distress HEENT: positive: EOMI, ZAC, Normal Voice, Symmetrical, Pharynx Normal, Hearing Grossly Normal. negative: Scleral Icterus (R), Scleral Icterus (L), Pharyngeal Erythema, Tonsillar Exudate, Tonsillar Erythema Neck: positive: Trachea midline, Normal Thyroid, Supple. negative: Tender, Rigid, Lymphadenopathy (R), Lymphadenopathy (L), Rigidity Respiratory/Chest: positive: Crackles (bilaterally), Other (ICD to left chest). negative: Chest Tender, Lungs Clear, Normal Breath Sounds, Respiratory Distress, Accessory Muscle Use, Decreased Breath Sounds, Paradoxal Breathing, Stridor, Wheezing Cardiovascular: positive: Regular Rhythm, Tachycardia. negative: Murmur Gastrointestinal/Abdominal: positive: Normal Bowel Sounds, Soft, Protuberent, Hernia (large periumbilical), Other (significant surgical scarring to abdomen). negative: Tender, Pulsatile Mass, Guarding, Rebound Musculoskeletal: positive: Normal Inspection. negative: CVA Tenderness, Vertebral Tenderness Extremity: positive: Normal Capillary Refill, Normal Inspection, Normal Range of Motion, Swelling (BLE, not pitting). negative: Tender, Pedal Edema, Calf Tenderness Integumentary: positive: Normal Color, Dry, Warm. negative: Clammy, Diaphoresis Neurologic: positive: Fully Oriented, Alert, Normal Mood/Affect, Normal Response ED Treatment Course - LABORATORY CBC & Chemistry Diagram: 07/19/20 23:09 07/19/20 23:09 Medical Decision Making - Medical Decision Making 07/20/20 00:34 Patient has PMH CHF and COPD, here for SOB, tried using albuterol nebs without improvement. Has crackles on exam, already on BiPAP for SOB, tolerating well and saturating 100%. Most likely CHF exacerbation, ddx includes PNA, covid, COPD, ACS, anemia. Has been having fevers, concerned for infectious etiology. Evaluating broadly with CMP/CBC/CP/ECG/CXR/VBG/ABG/UA/UC/BC/lactate. CXR remarkable for bilateral pulmonary edema. ECG sinus tachycardia with HR 109, QTc 519, LBBB, no priors. Labs notable for: - CBC WNL - lactic 2.4, overloaded with CHF, no fluid repletion - AP 123 - BNP 2595.6 - Cr 1.5, up from 1.1 - trop 0.13, giving ASA 324 - ABG pH 7.424, CO2 36.8 Pending urine. Mentating and saturating well on BiPAP. Calling Dr. Lewis for admission to tele. 07/20/20 01:19 Dr. Lewis consulted, accepts for admission to [facility], requests [place] consult. No IVF for lactic acid given overload. Lower suspicion of infection given no fever, low WBC. Discharge - Discharge Information Problems reviewed: Yes Clinical Impression/Diagnosis: Elevated troponin Acute exacerbation of CHF (congestive heart failure) Qualifiers: Heart failure type: systolic Qualified Code(s): I50.23 - Acute on chronic systolic (congestive) heart failure Condition: Fair - Admission Yes - Follow up/Referral Referrals: Reece Lanza MD [Primary Care Provider] - - Patient Discharge Instructions - Post Discharge Activity
[2020-07-19] MEDS ORDERED: FUROSEMIDE 40 MG/4 ML INJECTABLE VIAL IVPUSH ONE (23:19)
--- NOTE | 2020-07-19 23:23 | PDOC ---
Documentation entered by Irais Izaguirre SCRIBE, acting as scribe for Jordana Park DO. Jordana Park DO: This documentation has been prepared by the yesicaibe, Irais Izaguirre SCRIBE, under my direction and personally reviewed by me in its entirety. I confirm that the documentation accurately reflects all work, treatment, procedures, and medical decision making performed by me. Attending Attestation - Resident Resident Name: JoseTobi - ED Attending Attestation I have performed the following: I have examined & evaluated the patient, The case was reviewed & discussed with the resident, I agree w/resident's findings & plan, Exceptions are as noted - HPI HPI: 07/19/20 23:32 The patient is a 60-year-old female with a past medical history significant for CHF, asthma, DM, CKD, HTN, HLD, Afib (on Eliquis), and hypothyroidism who presents to the emergency department via EMS for shortness of breath. The patient presents with an acute onset of shortness of breath, associated with chest pain, cough, and a fever (tmax 101 at home). The patient reports taking Tylenol for the fever, last dose around 7-8:00 pm tonight. Denies missing any medication. The patient reports she took 40mg of Lasix yesterday and today. The patient reports the change in weather triggers the symptoms. Denies leg swelling. Denies vomiting. Per EMS, the patient was found supine on arrival, was given .08 of nitroglycerin. The patient was placed on CPAP by EMS, with O2 stat at 95%. The patients blood pressure on the field was 147/87. Screw Machine Operator: Dr. Mooney - Physicial Exam PE: 07/19/20 23:44 Constitutional: Awake, alert, oriented. No acute distress. Head: Normocephalic. Atraumatic Eyes: PERRL. EOMI. Conjunctivae are not pale. ENT: Mucous membranes are moist and intact. Posterior pharynx without exudate or erythema. Uvula midline. Neck: Supple. Full ROM. No lymphadenopathy. Cardiovascular: +tachycardia. Regular rate. Regular rhythm. S1, S2 regular. Distal pulses are 2+ and symmetric. Pulmonary/Chest: +tachypnea, conversational dyspnea, on bipap, diffuse rales on exam Abdominal: +protuberant abdomen Soft, There is no tenderness. No rebound, guarding or rigidity. No organomegaly. No palpable masses. Good bowel sounds. Back: No CVA tenderness. Musculoskeletal: +pacer to left chest wall. No pitting lower extremity edema. No cyanosis. No clubbing. Full range of motion in all extremities. No calf tenderness. Radial/pedal pulses are intact and 2+ bilaterally Skin: Skin is warm and dry. No petechiae. No purpura. Neurological: Alert and oriented to person, place, and time. Cranial nerves II-XII are grossly intact. Normal speech. Strength is grossly symmetric. No sensory deficits. Psychiatric: Good eye contact. Normal interaction, affect and behavior. - Medical Decision Making 07/19/20 23:21 a/p: 60yo female with acute onset of sob today -states fever yesterday and today -pt biba from home on cpap 0.8mg nitro given sublingual area captain -pt states still sob -rales on exam -concern for chf exacerbation, but concern given fever for pna -will send labs, ekg, cxr, bipap, iv lasix, trop -will send cultures, repeat covid swab, vbg -will need admission 07/19/20 23:23 cxr shows cephalizations and edema 07/19/20 23:55 mildly elevated trop and bnp iv lasix ordered 07/20/20 01:21 resident discussed the case with Dr. Lewis who accepts pt to service Heart Score/ECG Review - ECG Intrepretation Comment:: 07/19/20 23:23 sinus tach at 109, lbbb, no acute st/t wave findings Discharge - Discharge Information Problems reviewed: Yes Clinical Impression/Diagnosis: Elevated troponin Acute exacerbation of CHF (congestive heart failure) Qualifiers: Heart failure type: systolic Qualified Code(s): I50.23 - Acute on chronic systolic (congestive) heart failure Condition: Guarded - Admission Yes - Follow up/Referral Referrals: Reece Lanza MD [Primary Care Provider] - - Patient Discharge Instructions - Post Discharge Activity
[2020-07-19 23:26] LABS: BASO % 0.9 % (0-2.0); EOS % 1.5 % (0-4.5); HEMATOCRIT 38.4 % (32.4-45.2); HEMOGLOBIN 12.2 GM/dL (10.7-15.3); LYMPH % 26.9 % (8-40); MCH 26.1 pg (25.7-33.7); MCHC 31.7 g/dl (32.0-36.0); MEAN CELL VOLUME 82.3 fl (80-96); MEAN PLT VOLUME 10.1 fl (7.5-11.1); MONO % 4.5 % (3.8-10.2); NEUT % 66.2 % (42.8-82.8); PLATELET COUNT 338 K/MM3 (134-434); RBC 4.67 M/mm3 (3.60-5.2); RDW 18.1 % (11.6-15.6); WHITE BLOOD COUNT 8.7 K/mm3 (4.0-10.0)
[2020-07-19] MEDS ORDERED: FUROSEMIDE 40 MG/4 ML INJECTABLE VIAL ONE (23:29)
[2020-07-19 23:33] LABS: VENOUS BASE EXCESS -1.3 mmol/L (-2-2); VENOUS O2 SATURATION 92.9 % (70-80); VENOUS PCO2 38.6 mmHg (38-52); VENOUS PH 7.398 (7.310-7.410)
[2020-07-19 23:34] LABS: INR 1.03 (0.83-1.09); PROTHROMBIN TIME (PATIENT) 12.2 SEC (9.7-13.0)
[2020-07-19 23:37] LABS: ACTIVATED PTT 33.9 SECONDS (25.2-36.5)
[2020-07-19 23:50] LABS: ALBUMIN 3.7 g/dl (3.4-5.0); BILIRUBIN,TOTAL 0.3 mg/dL (0.2-1); BLOOD UREA NITROGEN 15.9 mg/dL (7-18); CALCIUM 9.3 mg/dL (8.5-10.1); CREATININE 1.5 mg/dL (0.55-1.3); MAGNESIUM 1.7 mg/dL (1.8-2.4); N-TERMINAL BNP 2595.6 pg/ml (5-125); POTASSIUM 4.2 mmol/L (3.5-5.1); TOT PROT 7.7 g/dl (6.4-8.2)
[2020-07-19] MEDS ORDERED: MAGNESIUM SULF 50% (8.12 MEQ/2 ML-1 GM VIAL) IVPB ONE (23:55)
[2020-07-20 00:12] LABS: ARTERIAL BLD GAS O2 SATURATION 98.8 mmHg (95-98); ARTERIAL BLOOD GAS BASE EXCESS -0.5 mmol/L (-2-2); ARTERIAL BLOOD GAS PO2 137.5 mmHg (80-100); ARTERIAL BLOOD GAS pH 7.424 (7.350-7.450)
[2020-07-20 00:13] LABS: ALLENS TEST POSITIVE
[2020-07-20] MEDS ORDERED: MAGNESIUM 1GM/D5W - 1 GM/100 ML IVPB IVPB ONE (00:13)
[2020-07-20 00:14] LABS: VENT MODE S/T; VENT RATE 14
[2020-07-20] MEDS ORDERED: ASPIRIN 81 MG CHEWABLE TABLETS PO ONE (01:08)
[2020-07-20] MEDS ORDERED: ASPIRIN 81 MG CHEWABLE TABLETS ONE (02:17)
[2020-07-20 02:43] LABS: URINE APPEARANCE CLEAR; URINE BILIRUBIN NEGATIVE (NEGATIVE); URINE COLOR YELLOW; URINE GLUCOSE (UA) 3+ (NEGATIVE); URINE KETONE NEGATIVE (NEGATIVE); URINE LEUK ESTERASE NEGATIVE (NEGATIVE); URINE NITRITE NEGATIVE (NEGATIVE); URINE PROTEIN NEGATIVE (NEGATIVE); URINE UROBILINOGEN 0.2 mg/dL (0.2-1.0)
--- NOTE | 2020-07-20 09:54 | EKG ---
Test Reason : Blood Pressure : / mmHG Vent. Rate : 109 BPM Atrial Rate : 109 BPM P-R Int : 134 ms QRS Dur : 128 ms QT Int : 386 ms P-R-T Axes : 059 -13 089 degrees QTc Int : 519 ms POOR DATA QUALITY, INTERPRETATION MAY BE ADVERSELY AFFECTED SINUS TACHYCARDIA POSSIBLE LEFT ATRIAL ENLARGEMENT LEFT BUNDLE BRANCH BLOCK ABNORMAL ECG WHEN COMPARED WITH ECG OF 05-JUL-2020 15:15, NO SIGNIFICANT CHANGE WAS FOUND Confirmed by BLAYNE RUBY MD ([id number]) on 07/20/2020 9:54:03 AM Referred By: Confirmed By:BLAYNE RUBY MD
[2020-07-20] MEDS ORDERED: ALBUTEROL SO4 0.083% IH SOL 2.5 MG/3 ML VIAL.NEB. NEB PRN (09:55)
[2020-07-20] MEDS: BUDESONIDE/FORMETEROL FUMARATE 160/4.5 mcg INHALER IH SCH ×2 (10:00→21:18)
[2020-07-20] MEDS ORDERED: ASPIRIN COATED 81 MG TABLET.EC ONE (10:56)
[2020-07-20] MEDS ORDERED: PREGABALIN 25 MG CAPSULE ONE (10:56)
[2020-07-20] MEDS ORDERED: PANTOPRAZOLE 40 MG TABLET ONE (10:57)
[2020-07-20] MEDS ORDERED: metoPROLOL SUCCINATE 25 MG TAB.SR.24H (FP) ONE (10:57)
[2020-07-20] MEDS ORDERED: APIXABAN 5 MG TABLET ONE (10:57)
[2020-07-20] MEDS ORDERED: LEVOTHYROXINE NA 25 MCG TABLET (FP) ONE (10:57)
[2020-07-20] MEDS ORDERED: FUROSEMIDE 40 MG/4 ML INJECTABLE VIAL ONE (10:58)
[2020-07-20] MEDS: SACUBITRIL/VALSARTAN 24 MG-26 MG TABLET PO SCH ×2 (11:00→21:10)
[2020-07-20] MEDS ORDERED: FUROSEMIDE 40 MG/4 ML INJECTABLE VIAL IVPUSH SCH ×2 (11:00→16:10)
[2020-07-20] MEDS: PANTOPRAZOLE 40 MG TABLET PO SCH ×2 (11:05→18:12)
[2020-07-20] MEDS: ASPIRIN COATED 81 MG TABLET.EC PO SCH (11:05)
[2020-07-20] MEDS: metoPROLOL SUCCINATE 25 MG TAB.SR.24H (FP) PO SCH (11:05)
[2020-07-20] MEDS: LEVOTHYROXINE NA 75 MCG TABLET (FP) PO SCH ×2 (11:05→18:12)
[2020-07-20] MEDS: APIXABAN 5 MG TABLET PO SCH ×2 (11:05→21:10)
[2020-07-20] MEDS: PREGABALIN 25 MG CAPSULE PO SCH ×3 (11:05→21:11)
[2020-07-20] MEDS: INSULIN SLIDING SCALE (NOVOLOG) 1 VIAL SQ SCH ×3 (12:37→21:17)
--- NOTE | 2020-07-20 13:24 | CON.ID ---
Consult Consult Specialty:: infectious diseases Referred by:: Reason for Consultation:: fever,sob - History of Present Illness Chief Complaint: fever,sob History of Present Illness: 60-year-old female with a past medical history significant for CHF, asthma, DM, CKD, HTN, HLD, Afib (on Eliquis), and hypothyroidism who presents to the emergency department via EMS for shortness of breath. The patient presents with an acute onset of shortness of breath, associated with chest pain, cough, and a fever (tmax 101 at home). The patient reports taking Tylenol for the fever, last dose around 7-8:00 pm tonight. Denies missing any medication. The patient reports she took 40mg of Lasix yesterday and today. The patient reports the change in weather triggers the symptoms. Denies leg swelling. Denies vomiting. currently she feels well - History Source History Provided By: Patient Limitations to Obtaining History: No Limitations - Past Medical History Cardio/Vascular: Yes: CHF, HTN, Hyperlipdemia Pulmonary: Yes: Asthma, Bronchitis, Pneumonia, Pulmonary Embolus, Sleep Apnea Gastrointestinal: Yes: Other (multiple incisional hernias) Renal/: Yes: Renal Failure Endocrine: Yes: Diabetes Mellitus, Hypothyroidism - Past Surgical History Past Surgical History: Yes: Cholecystectomy, Joint Replacement (left tkr), Permanent Pacemaker (ICD) - Alcohol/Substance Use Hx Alcohol Use: No - Smoking History Smoking history: Never smoked Have you smoked in the past 12 months: No Aproximately how many cigarettes per day: 0 - Social History Usual Living Arrangement: With Spouse ADL: Independent History of Recent Travel: No Home Medications - Allergies Allergies/Adverse Reactions: Allergies Allergy/AdvReac Type Severity Reaction Status Date / Time tomato Allergy Mild Hives Verified 07/19/20 22:49 chlorpheniramine Allergy Verified 07/19/20 22:49 cimetidine Allergy Verified 07/19/20 22:49 codeine [Codeine] Allergy Verified 07/19/20 22:49 ibuprofen Allergy Verified 07/19/20 22:49 latex [Latex] Allergy Verified 07/19/20 22:49 Latex, Natural Rubber Allergy Verified 07/19/20 22:49 pseudoephedrine Allergy Verified 07/19/20 22:49 salmeterol xinafoate Allergy Verified 07/19/20 22:49 [From Advair Diskus] shellfish derived Allergy Verified 07/19/20 22:49 Sulfa (Sulfonamide Allergy Verified 07/19/20 22:49 Antibiotics) [Sulfa(Sulfonamide Antibiotics)] Chocolate Allergy Mild Hives Uncoded 07/19/20 22:49 shrimp Allergy Mild Hives Uncoded 07/19/20 22:49 - Home Medications Home Medications: Ambulatory Orders Insulin Glargine,Hum.rec.anlog [Lantus Solostar PEN -] 20 units SQ AM 08/09/16 Budesonide/Formeterol Fumarate [SYMBICORT 160/4.5mcg -] 2 puff PO BID 10/14/16 Albuterol 2.5/Ipratropium 0.5 [Duoneb -] 1 amp NEB Q6H PRN #90 amp 05/21/19 Levothyroxine [Synthroid -] 75 mcg PO DAILY #30 tablet 05/21/19 Insulin Glargine,Hum.rec.anlog [Lantus Solostar PEN -] 10 units SQ HS 08/13/19 Metoprolol Succinate [Toprol XL -] 25 mg PO DAILY 10/10/19 Apixaban [Eliquis -] 5 mg PO BID 11/02/19 Linaclotide [Linzess] 290 mcg PO DAILY 11/02/19 Sacubitril/Valsartan [Entresto 24 mg-26 mg Tablet] 1 each PO ASDIR 11/02/19 Furosemide [Lasix -] 20 mg PO DAILY #30 tablet 11/06/19 Albuterol 0.083% Nebulizer Jyothi [Ventolin 0.083% Nebulizer Soln -] 1 amp NEB Q4H PRN amp 12/13/19 Spironolactone [Aldactone -] 25 mg PO DAILY tablet 12/13/19 Aspirin Coated [Ecotrin -] 81 mg PO DAILY #30 tablet.ec 12/27/19 Potassium Chloride 10 meq PO DAILY 01/15/20 Pregabalin [Lyrica -] 25 mg PO BID 01/15/20 Tiotropium [place] [Spiriva Respimat] 2 puff IH DAILY #1 mist.inhal 01/15/20 Albuterol 0.083% Nebulizer Jyothi [Ventolin 0.083% Nebulizer Soln -] 1 amp NEB Q4H PRN #0 amp 01/20/20 Furosemide [Lasix -] 20 mg PO DAILY #30 tablet 01/20/20 Montelukast Na [Singulair -] 10 mg PO HS #30 tablet 01/20/20 Pantoprazole Sodium [Protonix -] 40 mg PO DAILY #30 tablet.ec 01/20/20 Potassium Chloride [K-Dur -] 10 meq PO DAILY #30 tablet.er 01/20/20 Furosemide [Lasix -] 20 mg PO DAILY tablet 02/23/20 Ondansetron [Zofran *Odt*] 4 mg SL TID PRN #10 od.tablet 03/04/20 Furosemide [Lasix -] 20 mg PO DAILY tablet 05/28/20 Sacubitril/Valsartan [Entresto 24 mg-26 mg Tablet] 1 tab PO BID #60 tablet 05/28/20 Furosemide [Lasix -] 20 mg PO DAILY tablet 07/11/20 Review of Systems - Review of Systems Constitutional: reports: No Symptoms Eyes: reports: No Symptoms HENT: reports: No Symptoms Neck: reports: No Symptoms Cardiovascular: reports: No Symptoms Respiratory: reports: SOB, SOB on Exertion Gastrointestinal: reports: No Symptoms Musculoskeletal: reports: No Symptoms Integumentary: reports: No Symptoms Neurological: reports: No Symptoms Endocrine: reports: No Symptoms Hematology/Lymphatic: reports: No Symptoms Psychiatric: reports: No Symptoms Physical Exam Vital Signs: Vital Signs Temperature 98.0 F 07/20/20 09:51 Pulse Rate 98 H 07/20/20 12:00 Respiratory Rate 22 H 07/20/20 09:51 Blood Pressure 106/73 07/20/20 09:51 O2 Sat by Pulse Oximetry (%) 100 07/20/20 12:00 Constitutional: Yes: Well Nourished, No Distress, Calm, Obese Eyes: Yes: Conjunctiva Clear HENT: Yes: Atraumatic, Normocephalic Neck: Yes: Supple, Trachea Midline Cardiovascular: Yes: Regular Rate and Rhythm Respiratory: Yes: Regular, CTA Bilaterally Gastrointestinal: Yes: Normal Bowel Sounds, Soft Musculoskeletal: Yes: WNL Extremities: Yes: WNL Neurological: Yes: Alert, Oriented Psychiatric: Yes: Alert, Oriented Labs: CBC, BMP 07/19/20 23:09 07/19/20 23:09 Imaging - Results Chest X-ray: Report Reviewed, Image Reviewed Assessment/Plan this patient with multiple medical issues coming with sob and fever since admission patient is afebrile i am going to hold off on starting any abx await for results might need a ct scan of the chest rest as per the team
--- NOTE | 2020-07-20 15:20 | PN ---
Progress Note, Physician History of Present Illness: Pt is a 60 y/o female with a PMH significant for CHF, asthma, DM, CKD, HTN, HLD, Afib (on Eliquis), VAHID, Cardiomyopathy, CKD and hypothyroidism who presents to the emergency department via EMS for shortness of breath. The patient presents with an acute onset of shortness of breath, associated with chest pain, cough, and a fever (tmax 101 at home). The patient reports she took 40mg of Lasix yesterday and today. CXR showed pulmonary vascular congestion - Current Medication List Current Medications: Active Medications Albuterol Sulfate (Ventolin 0.083% Nebulizer Soln -) 1 amp NEB Q4H PRN PRN Reason: SHORT OF BREATH/WHEEZING Apixaban (Eliquis -) 5 mg PO BID [facility] Last Admin: 07/20/20 11:05 Dose: 5 mg Documented by: Aspirin (Ecotrin -) 81 mg PO DAILY [facility] Last Admin: 07/20/20 11:05 Dose: 81 mg Documented by: Budesonide/Formoterol Fumarate (Symbicort 160/4.5mcg -) 2 puff IH BID [facility] Furosemide (Lasix Injection -) 20 mg IVPUSH DAILY [facility] Last Admin: 07/20/20 11:05 Dose: 20 mg Documented by: Insulin Aspart (Novolog Vial Sliding Scale -) 1 vial SQ [facility]; Protocol Last Admin: 07/20/20 12:37 Dose: 6 units Documented by: Insulin Detemir (Levemir Vial) 10 units SQ HS [facility] Insulin Detemir (Levemir Vial) 20 units SQ AM [facility] Levothyroxine Sodium (Synthroid -) 75 mcg PO DAILY@0700 [facility] Last Admin: 07/20/20 11:05 Dose: 75 mcg Documented by: Metoprolol Succinate (Toprol Xl -) 25 mg PO DAILY [facility] Last Admin: 07/20/20 11:05 Dose: 25 mg Documented by: Montelukast Sodium (Singulair -) 10 mg PO HS [facility] Pantoprazole Sodium (Protonix -) 40 mg PO DAILY [facility] Last Admin: 07/20/20 11:05 Dose: 40 mg Documented by: Pregabalin (Lyrica -) 25 mg PO BID [facility] Last Admin: 07/20/20 11:05 Dose: 25 mg Documented by: Sacubitril/Valsartan (Entresto 24 Mg-26 Mg Tablet) 1 tab PO BID [facility] Tiotropium [place] (Spiriva Respimat) 2 puff IH DAILY [facility] - Objective Vital Signs: Vital Signs Temperature 97.7 F 07/20/20 14:10 Pulse Rate 100 H 07/20/20 14:10 Respiratory Rate 22 H 07/20/20 14:10 Blood Pressure 98/75 07/20/20 14:10 O2 Sat by Pulse Oximetry (%) 100 07/20/20 12:00 Labs: CBC, BMP 07/19/20 23:09 07/19/20 23:09 INR, PTT INR 1.03 (0.83-1.09) 07/19/20 23:09
--- NOTE | 2020-07-20 15:57 | CON.PULM ---
Consult Consult Specialty:: PULM/CCM Referred by:: ANTONINO Reason for Consultation:: SOB - History of Present Illness Chief Complaint: SOB History of Present Illness: 60 F, Moderate Persistent Asthma (no intubations, not steroid dependent, unknown PEF), OSAS on a home AVAPS device (AVAPS: 500cc / Max pressure: 20 cm H2O / PS max 10 cm H2O / PS min 6 cm H2O / EPAP Max 10 cm H2O / EPAP min 8 cm H2O / Rate Auto / Trigger type Auto / Rise time 6), Nonischemic Cardiomyopathy (s/p pacemaker), CHF, HTN, CKD, and HLD. Admitted via the ER due to progressive SOB and ARNOLD and some "wheezing" that has not been responding to her home BD [place]. No travel history or sick contacts. No hemoptysis or night sweats. She does report orthopnea (4 pillows). CXR: Cardiomegaly / Pulmonary vascular congestion - History Source History Provided By: Patient Limitations to Obtaining History: No Limitations - Past Medical History Cardio/Vascular: Yes: CHF, HTN, Hyperlipdemia Pulmonary: Yes: Asthma, Bronchitis, Pneumonia, Pulmonary Embolus, Sleep Apnea Gastrointestinal: Yes: Other (multiple incisional hernias) Renal/: Yes: Renal Failure Endocrine: Yes: Diabetes Mellitus, Hypothyroidism - Past Surgical History Past Surgical History: Yes: Cholecystectomy, Joint Replacement (left tkr), Permanent Pacemaker (ICD) - Alcohol/Substance Use Hx Alcohol Use: No - Smoking History Smoking history: Never smoked Have you smoked in the past 12 months: No Aproximately how many cigarettes per day: 0 - Social History Usual Living Arrangement: With Spouse ADL: Independent History of Recent Travel: No Home Medications - Allergies Allergies/Adverse Reactions: Allergies Allergy/AdvReac Type Severity Reaction Status Date / Time tomato Allergy Mild Hives Verified 07/19/20 22:49 chlorpheniramine Allergy Verified 07/19/20 22:49 cimetidine Allergy Verified 07/19/20 22:49 codeine [Codeine] Allergy Verified 07/19/20 22:49 ibuprofen Allergy Verified 07/19/20 22:49 latex [Latex] Allergy Verified 07/19/20 22:49 Latex, Natural Rubber Allergy Verified 07/19/20 22:49 pseudoephedrine Allergy Verified 07/19/20 22:49 salmeterol xinafoate Allergy Verified 07/19/20 22:49 [From Advair Diskus] shellfish derived Allergy Verified 07/19/20 22:49 Sulfa (Sulfonamide Allergy Verified 07/19/20 22:49 Antibiotics) [Sulfa(Sulfonamide Antibiotics)] Chocolate Allergy Mild Hives Uncoded 07/19/20 22:49 shrimp Allergy Mild Hives Uncoded 07/19/20 22:49 - Home Medications Home Medications: Ambulatory Orders Insulin Glargine,Hum.rec.anlog [Lantus Solostar PEN -] 20 units SQ AM 08/09/16 Budesonide/Formeterol Fumarate [SYMBICORT 160/4.5mcg -] 2 puff PO BID 10/14/16 Albuterol 2.5/Ipratropium 0.5 [Duoneb -] 1 amp NEB Q6H PRN #90 amp 05/21/19 Levothyroxine [Synthroid -] 75 mcg PO DAILY #30 tablet 05/21/19 Insulin Glargine,Hum.rec.anlog [Lantus Solostar PEN -] 10 units SQ HS 08/13/19 Metoprolol Succinate [Toprol XL -] 25 mg PO DAILY 10/10/19 Apixaban [Eliquis -] 5 mg PO BID 11/02/19 Linaclotide [Linzess] 290 mcg PO DAILY 11/02/19 Sacubitril/Valsartan [Entresto 24 mg-26 mg Tablet] 1 each PO ASDIR 11/02/19 Furosemide [Lasix -] 20 mg PO DAILY #30 tablet 11/06/19 Albuterol 0.083% Nebulizer Jyothi [Ventolin 0.083% Nebulizer Soln -] 1 amp NEB Q4H PRN amp 12/13/19 Spironolactone [Aldactone -] 25 mg PO DAILY tablet 12/13/19 Aspirin Coated [Ecotrin -] 81 mg PO DAILY #30 tablet.ec 12/27/19 Potassium Chloride 10 meq PO DAILY 01/15/20 Pregabalin [Lyrica -] 25 mg PO BID 01/15/20 Tiotropium [place] [Spiriva Respimat] 2 puff IH DAILY #1 mist.inhal 01/15/20 Albuterol 0.083% Nebulizer Jyothi [Ventolin 0.083% Nebulizer Soln -] 1 amp NEB Q4H PRN #0 amp 01/20/20 Furosemide [Lasix -] 20 mg PO DAILY #30 tablet 01/20/20 Montelukast Na [Singulair -] 10 mg PO HS #30 tablet 01/20/20 Pantoprazole Sodium [Protonix -] 40 mg PO DAILY #30 tablet.ec 01/20/20 Potassium Chloride [K-Dur -] 10 meq PO DAILY #30 tablet.er 01/20/20 Furosemide [Lasix -] 20 mg PO DAILY tablet 02/23/20 Ondansetron [Zofran *Odt*] 4 mg SL TID PRN #10 od.tablet 03/04/20 Furosemide [Lasix -] 20 mg PO DAILY tablet 05/28/20 Sacubitril/Valsartan [Entresto 24 mg-26 mg Tablet] 1 tab PO BID #60 tablet 05/28/20 Furosemide [Lasix -] 20 mg PO DAILY tablet 07/11/20 Review of Systems - Review of Systems Constitutional: denies: Chills, Fever Eyes: reports: No Symptoms HENT: reports: No Symptoms, Ringing in Ears Cardiovascular: reports: Edema, Shortness of Breath. denies: Chest Pain, Palpitations Respiratory: reports: Cough, Orthopnea, Snoring, SOB, SOB on Exertion, Wheezing. denies: Hemoptysis Gastrointestinal: reports: No Symptoms Genitourinary: reports: No Symptoms Breasts: reports: No Symptoms Reported Musculoskeletal: reports: No Symptoms Integumentary: reports: No Symptoms Neurological: reports: No Symptoms Endocrine: reports: No Symptoms Hematology/Lymphatic: reports: No Symptoms Psychiatric: reports: No Symptoms Physical Exam Vital Sings: Vital Signs Temperature 97.7 F 07/20/20 14:10 Pulse Rate 100 H 07/20/20 14:10 Respiratory Rate 22 H 07/20/20 14:10 Blood Pressure 98/75 07/20/20 14:10 O2 Sat by Pulse Oximetry (%) 100 07/20/20 12:00 Constitutional: Yes: No Distress, Obese Eyes: Yes: Conjunctiva Clear, EOM Intact HENT: Yes: Atraumatic, Normocephalic Neck: Yes: Supple, Trachea Midline Cardiovascular: Yes: Regular Rate and Rhythm Respiratory: Yes: Diminished, On Venti-Mask, Rales, Rhonchi, SOB, SOB on Exe rtion. No: Accessory Muscle Use, Stridor, Tachypnea, Wheezes ...Inspection: Yes: WNL ...Clubbing: No Gastrointestinal: Yes: Normal Bowel Sounds, Soft, Abdomen, Obese Renal/: Yes: WNL Musculoskeletal: Yes: WNL Extremities: Yes: WNL Edema: Yes Peripheral Pulses WNL: Yes Integumentary: Yes: WNL Neurological: Yes: WNL, Alert, Oriented ...Motor Strength: WNL Psychiatric: Yes: WNL, Alert, Oriented Labs: CBC, BMP 07/19/20 23:09 07/19/20 23:09 ABG Results ABG pH 7.424 (7.350-7.450) 07/19/20 23:55 ABG HCO3 23.5 mmol/L (22-27) 07/19/20 23:55 ABG O2 Sat (Measured) 98.8 mmHg (95-98) H 07/19/20 23:55 ABG O2 Content No Result Required. 07/19/20 23:55 ABG Base Excess -0.5 mmol/L (-2-2) 07/19/20 23:55 Imaging - Results Chest X-ray: Report Reviewed, Image Reviewed Problem List - Problems (1) CHF exacerbation Code(s): I50.9 - HEART FAILURE, UNSPECIFIED Qualifiers: Heart failure type: systolic Qualified Code(s): I50.23 - Acute on chronic systolic (congestive) heart failure (2) Acute on chronic systolic (congestive) heart failure Code(s): I50.23 - ACUTE ON CHRONIC SYSTOLIC (CONGESTIVE) HEART FAILURE (3) Asthma Code(s): J45.909 - UNSPECIFIED ASTHMA, UNCOMPLICATED (4) CAD (coronary artery disease) Code(s): I25.10 - ATHSCL HEART DISEASE OF [place] CORONARY ARTERY W/O ANG PCTRS (5) COPD (chronic obstructive pulmonary disease) Code(s): J44.9 - CHRONIC OBSTRUCTIVE PULMONARY DISEASE, UNSPECIFIED (6) Cardiomyopathy Code(s): I42.9 - CARDIOMYOPATHY, UNSPECIFIED (7) Chronic systolic CHF (congestive heart failure), NYHA class 3 Code(s): I50.22 - CHRONIC SYSTOLIC (CONGESTIVE) HEART FAILURE (8) Diabetes Code(s): E11.9 - TYPE 2 DIABETES MELLITUS WITHOUT COMPLICATIONS (9) Hyperlipidemia Code(s): E78.5 - HYPERLIPIDEMIA, UNSPECIFIED (10) Hypertension Code(s): I10 - ESSENTIAL (PRIMARY) HYPERTENSION Qualifiers: (11) Hypothyroidism Code(s): E03.9 - HYPOTHYROIDISM, UNSPECIFIED (12) ICD (implantable cardioverter-defibrillator) in place Code(s): Z95.810 - PRESENCE OF AUTOMATIC (IMPLANTABLE) CARDIAC DEFIBRILLATOR (13) Morbid obesity Code(s): E66.01 - MORBID (SEVERE) OBESITY DUE TO EXCESS CALORIES (14) Paroxysmal A-fib Code(s): I48.0 - PAROXYSMAL ATRIAL FIBRILLATION (15) Shortness of breath at rest Code(s): R06.02 - SHORTNESS OF BREATH (16) Sleep apnea Code(s): G47.30 - SLEEP APNEA, UNSPECIFIED Assessment/Plan IMP: Suspect symptoms referable to CHF rather than AE of Asthma DO not suspect PNA or infectious process PLAN: IV Lasix Supplemental O2 as needed BD TX PRN Symbicort BID Daily weights Follow I & O Agree to monitor off ABX No smoking NIPPV ordered for use Will follow Thank you. Dr Brannon
[2020-07-20] MEDS: TIOTROPIUM BROMIDE 2.5 MCG (SPIRIVA) RESPIMAT INHALER IH SCH (16:05)
--- NOTE | 2020-07-20 16:11 | CON.CARD ---
Cardiology Consult (text) - Consultation Consultation Note: Chief Complaint: short of breath History of Present Illness: 60 F here with shortness of breath, hand swelling. Recent admit for same, for chf, was diuresed and felt better but then at home sxs gradually returned. no cp palps dizzy loc pnd orthopnea. Sees dr whitaker for cardio. PMH: morbid obesity nonisch CMP AF HTN - Past Medical History Cardio/Vascular: Yes: CHF, HTN, Hyperlipdemia Pulmonary: Yes: Asthma, Sleep Apnea Renal/: Yes: Renal Failure ...: No Endocrine: Yes: Diabetes Mellitus, Hypothyroidism - Past Surgical History Past Surgical History: Yes: Cholecystectomy, Joint Replacement (left tkr), Perm anent Pacemaker (ICD) - Alcohol/Substance Use Hx Alcohol Use: No - Smoking History Smoking history: Unknown if ever smoked Have you smoked in the past 12 months: No Aproximately how many cigarettes per day: 0 - Social History Usual Living Arrangement: With Spouse ADL: Independent History of Recent Travel: No Home Medications Home Medications Medication Instructions Recorded Insulin Glargine,Hum.rec.anlog 20 units SQ AM 08/09/16 [Lantus Solostar PEN -] Budesonide/Formeterol Fumarate 2 puff PO BID 10/14/16 [SYMBICORT 160/4.5mcg -] Albuterol 2.5/Ipratropium 0.5 1 amp NEB Q6H PRN #90 amp 05/21/19 [Duoneb -] Levothyroxine [Synthroid -] 75 mcg PO DAILY #30 tablet 05/21/19 Insulin Glargine,Hum.rec.anlog 10 units SQ HS 08/13/19 [Lantus Solostar PEN -] Metoprolol Succinate [Toprol XL -] 25 mg PO DAILY 10/10/19 Apixaban [Eliquis -] 5 mg PO BID 11/02/19 Linaclotide [Linzess] 290 mcg PO DAILY 11/02/19 Sacubitril/Valsartan [Entresto 24 1 each PO ASDIR 11/02/19 mg-26 mg Tablet] Furosemide [Lasix -] 20 mg PO DAILY #30 tablet 11/06/19 Albuterol 0.083% Nebulizer Jyothi 1 amp NEB Q4H PRN amp 12/13/19 [Ventolin 0.083% Nebulizer Soln -] Spironolactone [Aldactone -] 25 mg PO DAILY tablet 12/13/19 Aspirin Coated [Ecotrin -] 81 mg PO DAILY #30 tablet.ec 12/27/19 Potassium Chloride 10 meq PO DAILY 01/15/20 Pregabalin [Lyrica -] 25 mg PO BID 01/15/20 Tiotropium [place] [Spiriva 2 puff IH DAILY #1 mist.inhal 01/15/20 Respimat] Albuterol 0.083% Nebulizer Jyothi 1 amp NEB Q4H PRN #0 amp 01/20/20 [Ventolin 0.083% Nebulizer Soln -] Furosemide [Lasix -] 20 mg PO DAILY #30 tablet 01/20/20 Montelukast Na [Singulair -] 10 mg PO HS #30 tablet 01/20/20 Pantoprazole Sodium [Protonix -] 40 mg PO DAILY #30 tablet.ec 01/20/20 Potassium Chloride [K-Dur -] 10 meq PO DAILY #30 tablet.er 01/20/20 Furosemide [Lasix -] 20 mg PO DAILY tablet 02/23/20 Ondansetron [Zofran *Odt*] 4 mg SL TID PRN #10 od.tablet 03/04/20 Furosemide [Lasix -] 20 mg PO DAILY tablet 05/28/20 Sacubitril/Valsartan [Entresto 24 1 tab PO BID #60 tablet 05/28/20 mg-26 mg Tablet] Furosemide [Lasix -] 20 mg PO DAILY tablet 07/11/20 Family Medical History Family History: Denies (no known cmp) Review of Systems - Review of Systems Constitutional: denies: Chills, Fever Eyes: denies: Eye Pain HENT: denies: Nasal Congestion Neck: denies: Stiffness Cardiovascular: denies: Palpitations Respiratory: denies: Orthopnea, PND Gastrointestinal: denies: Diarrhea, Rectal Bleeding Genitourinary: denies: Burning, Hematuria Musculoskeletal: denies: Muscle Pain Integumentary: denies: Rash Neurological: denies: Numbness, Seizure, Syncope Endocrine: denies: Excessive Sweating Hematology/Lymphatic: denies: Excessive Bleeding Vital Signs: Vital Signs Period Temp Pulse Resp BP Sys/Mcgrath Pulse Ox Last 24 Hr 97.7 F-98.4 F 96-149 17-30 98-140/52-106 99-100 Constitutional: Yes: Well Nourished, No Distress, Obese Eyes: No: Sclera Icterus HENT: No: Nasal Congestion Neck: No: Decreased ROM Respiratory: Yes: CTA Bilaterally. No: Accessory Muscle Use, Rales, Wheezes Gastrointestinal: Yes: Normal Bowel Sounds. No: Distention, Hepatomegaly, Palpable Mass, Tenderness Cardiovascular: Yes: Regular Rate and Rhythm JVD: No Heart Sounds: Yes: S1, S2. No: Gallop Murmur: No: Systolic Murmur, Diastolic Murmur Musculoskeletal: Yes: Other (No kyphosis) Extremities: No: Cool, Cyanosis Edema: trace gopi lower ext Integumentary: No: Jaundice Neurological: Yes: Alert, Oriented (x3) Psychiatric: No: Agitated Laboratory Last Values WBC 8.7 K/mm3 (4.0-10.0) 07/19/20 23:09 RBC 4.67 M/mm3 (3.60-5.2) 07/19/20 23:09 Hgb 12.2 GM/dL (10.7-15.3) 07/19/20 23:09 Hct 38.4 % (32.4-45.2) 07/19/20 23:09 MCV 82.3 fl (80-96) 07/19/20 23:09 MCH 26.1 pg (25.7-33.7) 07/19/20 23:09 MCHC 31.7 g/dl (32.0-36.0) L 07/19/20 23:09 RDW 18.1 % (11.6-15.6) H 07/19/20 23:09 Plt Count 338 K/MM3 (134-434) D 07/19/20 23:09 MPV 10.1 fl (7.5-11.1) 07/19/20 23:09 Absolute Neuts (auto) 5.7 K/mm3 (1.5-8.0) 07/19/20 23:09 Neutrophils % 66.2 % (42.8-82.8) 07/19/20 23:09 Lymphocytes % 26.9 % (8-40) 07/19/20 23:09 Monocytes % 4.5 % (3.8-10.2) 07/19/20 23:09 Eosinophils % 1.5 % (0-4.5) 07/19/20 23:09 Basophils % 0.9 % (0-2.0) 07/19/20 23:09 Nucleated RBC % 0 % (0-0) 07/19/20 23:09 PT with INR 12.20 SEC (9.7-13.0) 07/19/20 23:09 INR 1.03 (0.83-1.09) 07/19/20 23:09 PTT (Actin FS) 33.9 SECONDS (25.2-36.5) 07/19/20 23:09 Anticoagulation Therapy No Result Required. 07/19/20 23:55 Puncture Site Right radial 07/19/20 23:55 Patient Temperature No Result Required. 07/19/20 23:55 ABG pH 7.424 (7.350-7.450) 07/19/20 23:55 ABG pCO2 36.80 mmHg (35-45) 07/19/20 23:55 ABG pO2 137.5 mmHg (80-100) H 07/19/20 23:55 ABG HCO3 23.5 mmol/L (22-27) 07/19/20 23:55 ABG O2 Sat (Measured) 98.8 mmHg (95-98) H 07/19/20 23:55 ABG O2 Content No Result Required. 07/19/20 23:55 ABG Base Excess -0.5 mmol/L (-2-2) 07/19/20 23:55 Jarvis Test Positive 07/19/20 23:55 VBG pH 7.398 (7.310-7.410) 07/19/20 23:09 POC VBG pCO2 38.6 mmHg (38-52) 07/19/20 23:09 POC VBG pO2 65.4 mmHg (28-48) H 07/19/20 23:09 VBG HCO3 23.3 mmol/L (23-29) 07/19/20 23:09 VBG O2 Sat ([place]) 92.9 % (70-80) H 07/19/20 23:09 VBG Base Excess -1.3 mmol/L (-2-2) 07/19/20 23:09 Patient On Oxygen Yes 07/19/20 23:55 O2 Delivery Device Bipap 07/19/20 23:55 Oxygen Flow Rate 40% 07/19/20 23:55 Vent Mode S/t 07/19/20 23:55 Vent Rate 14 07/19/20 23:55 Mechanical Rate Bipap 07/19/20 23:55 PEEP No Result Required. 07/19/20 23:55 Pressure Support Vent 16/7 07/19/20 23:55 Sodium 135 mmol/L (136-145) L 07/19/20 23:09 Potassium 4.2 mmol/L (3.5-5.1) 07/19/20 23:09 Chloride 99 mmol/L (98-107) 07/19/20 23:09 Carbon Dioxide 28 mmol/L (21-32) 07/19/20 23:09 Anion Gap 9 MMOL/L (8-16) 07/19/20 23:09 BUN 15.9 mg/dL (7-18) 07/19/20 23:09 Creatinine 1.5 mg/dL (0.55-1.3) H 07/19/20 23:09 Est GFR (CKD-EPI)AfAm 43.43 07/19/20 23:09 Est GFR (CKD-EPI)NonAf 37.48 07/19/20 23:09 POC Glucometer 257 UNITS (80-120) 07/20/20 12:31 Random Glucose 316 mg/dL (74-106) H 07/19/20 23:09 Lactic Acid 2.2 mmol/L (0.4-2.0) H* 07/20/20 02:00 Calcium 9.3 mg/dL (8.5-10.1) 07/19/20 23:09 Magnesium 1.7 mg/dL (1.8-2.4) L 07/19/20 23:09 Total Bilirubin 0.3 mg/dL (0.2-1) 07/19/20 23:09 AST 12 U/L (15-37) L 07/19/20 23:09 ALT 10 U/L (13-61) L 07/19/20 23:09 Alkaline Phosphatase 123 U/L (45-117) H 07/19/20 23:09 Creatine Kinase 124 U/L (26-192) 07/19/20 23:09 Troponin I 0.20 ng/ml (0.00-0.05) H 07/20/20 08:24 B-Natriuretic Peptide 2595.6 pg/ml (5-125) H 07/19/20 23:09 Total Protein 7.7 g/dl (6.4-8.2) 07/19/20 23:09 Albumin 3.7 g/dl (3.4-5.0) 07/19/20 23:09 Urine Color Yellow 07/20/20 02:19 Urine Appearance Clear 07/20/20 02:19 Urine pH 5.0 (5.0-8.0) 07/20/20 02:19 Ur Specific [place] 1.017 (1.010-1.035) 07/20/20 02:19 Urine Protein Negative (NEGATIVE) 07/20/20 02:19 Urine Glucose (UA) 3+ (NEGATIVE) H 07/20/20 02:19 Urine Ketones Negative (NEGATIVE) 07/20/20 02:19 Urine Blood Negative (NEGATIVE) 07/20/20 02:19 Urine Nitrite Negative (NEGATIVE) 07/20/20 02:19 Urine Bilirubin Negative (NEGATIVE) 07/20/20 02:19 Urine Urobilinogen 0.2 mg/dL (0.2-1.0) 07/20/20 02:19 Ur Leukocyte Esterase Negative (NEGATIVE) 07/20/20 02:19 Assessment/Plan Cardiac Catheterization 2018 non-obstructive CAD echo 05/2019 tds, mildly dilated LV, severe global hypok, RV nl CXR: clear lungs EKG: sinus, old LBBB tele: sinus NICM w/ chronic systolic CHF, mild acute exacerbation: -recent admit for chf, sent home on lasix 20 qd. Pt reports she started to build up fluid and took 40 mg qd but still no improvement so came to ER. Here again with mild vol overload. Will give iv lasix, monitor daily chem7 wts. Will likely need change in diuretic when goes home as lasix 40 qd was not keeping her euvolemic. - Cont Toprol, entresto and aldactone - pt has chronic baseline hypotension from syst chf with sbp in 90s at times, pt asymptomatic from this - outpatient ICD monitoring elevated trop - indeterminate range, flat trend, nl ck, similar to prior baseline values, not c/w acs HTN: - cont home meds paroxysmal afib - in sinus --cont home bb - cont home eliquis for AC (5 bid) HLD - cont statin
[2020-07-20 16:51] VITALS: BMI 41.0
--- NOTE | 2020-07-20 20:54 | HP ---
Admitting History and Physical - Admission History of Present Illness: Pt is a 60 y/o female with a PMH significant for CHF, asthma, DM, CKD, HTN, HLD, Afib (on Eliquis), VAHID, Cardiomyopathy, CKD and hypothyroidism who presents to the emergency department via EMS for shortness of breath. The patient presents with an acute onset of shortness of breath, associated with chest pain, cough, and a fever (tmax 101 at home). The patient reports she took 40mg of Lasix yesterday and today. CXR showed pulmonary vascular congestion - Past Medical History Cardiovascular: Yes: AFIB, CHF, HTN, Hyperlipdemia Pulmonary: Yes: Asthma, Bronchitis, Pneumonia, Pulmonary Embolus, Sleep Apnea Gastrointestinal: Yes: Other (multiple incisional hernias) Renal/: Yes: Renal Failure Heme/Onc: Yes: Anemia Endocrine: Yes: Diabetes Mellitus, Hypothyroidism - Past Surgical History Past Surgical History: Yes: Cholecystectomy, Joint Replacement (left tkr), Permanent Pacemaker (ICD) - Smoking History Smoking history: Never smoked Have you smoked in the past 12 months: No Aproximately how many cigarettes per day: 0 - Alcohol/Substance Use Hx Alcohol Use: No - Social History ADL: Independent History of Recent Travel: No Home Medications - Allergies Allergies/Adverse Reactions: Allergies Allergy/AdvReac Type Severity Reaction Status Date / Time tomato Allergy Mild Hives Verified 07/19/20 22:49 chlorpheniramine Allergy Verified 07/19/20 22:49 cimetidine Allergy Verified 07/19/20 22:49 codeine [Codeine] Allergy Verified 07/19/20 22:49 ibuprofen Allergy Verified 07/19/20 22:49 latex [Latex] Allergy Verified 07/19/20 22:49 Latex, Natural Rubber Allergy Verified 07/19/20 22:49 pseudoephedrine Allergy Verified 07/19/20 22:49 salmeterol xinafoate Allergy Verified 07/19/20 22:49 [From Advair Diskus] shellfish derived Allergy Verified 07/19/20 22:49 Sulfa (Sulfonamide Allergy Verified 07/19/20 22:49 Antibiotics) [Sulfa(Sulfonamide Antibiotics)] Chocolate Allergy Mild Hives Uncoded 07/19/20 22:49 shrimp Allergy Mild Hives Uncoded 07/19/20 22:49 - Home Medications Home Medications: Ambulatory Orders Insulin Glargine,Hum.rec.anlog [Lantus Solostar PEN -] 20 units SQ AM 08/09/16 Budesonide/Formeterol Fumarate [SYMBICORT 160/4.5mcg -] 2 puff PO BID 10/14/16 Albuterol 2.5/Ipratropium 0.5 [Duoneb -] 1 amp NEB Q6H PRN #90 amp 05/21/19 Levothyroxine [Synthroid -] 75 mcg PO DAILY #30 tablet 05/21/19 Insulin Glargine,Hum.rec.anlog [Lantus Solostar PEN -] 10 units SQ HS 08/13/19 Metoprolol Succinate [Toprol XL -] 25 mg PO DAILY 10/10/19 Apixaban [Eliquis -] 5 mg PO BID 11/02/19 Linaclotide [Linzess] 290 mcg PO DAILY 11/02/19 Sacubitril/Valsartan [Entresto 24 mg-26 mg Tablet] 1 each PO ASDIR 11/02/19 Furosemide [Lasix -] 20 mg PO DAILY #30 tablet 11/06/19 Albuterol 0.083% Nebulizer Jyothi [Ventolin 0.083% Nebulizer Soln -] 1 amp NEB Q4H PRN amp 12/13/19 Spironolactone [Aldactone -] 25 mg PO DAILY tablet 12/13/19 Aspirin Coated [Ecotrin -] 81 mg PO DAILY #30 tablet.ec 12/27/19 Potassium Chloride 10 meq PO DAILY 01/15/20 Pregabalin [Lyrica -] 25 mg PO BID 01/15/20 Tiotropium [place] [Spiriva Respimat] 2 puff IH DAILY #1 mist.inhal 01/15/20 Albuterol 0.083% Nebulizer Jyothi [Ventolin 0.083% Nebulizer Soln -] 1 amp NEB Q4H PRN #0 amp 01/20/20 Furosemide [Lasix -] 20 mg PO DAILY #30 tablet 01/20/20 Montelukast Na [Singulair -] 10 mg PO HS #30 tablet 01/20/20 Pantoprazole Sodium [Protonix -] 40 mg PO DAILY #30 tablet.ec 01/20/20 Potassium Chloride [K-Dur -] 10 meq PO DAILY #30 tablet.er 01/20/20 Furosemide [Lasix -] 20 mg PO DAILY tablet 02/23/20 Ondansetron [Zofran *Odt*] 4 mg SL TID PRN #10 od.tablet 03/04/20 Furosemide [Lasix -] 20 mg PO DAILY tablet 05/28/20 Sacubitril/Valsartan [Entresto 24 mg-26 mg Tablet] 1 tab PO BID #60 tablet 05/28/20 Furosemide [Lasix -] 20 mg PO DAILY tablet 07/11/20 Family Medical History Family History: Unremarkable Review of Systems - Review of Systems Constitutional: reports: Fever Eyes: reports: No Symptoms HENT: reports: No Symptoms Neck: reports: No Symptoms Cardiovascular: reports: Shortness of Breath Respiratory: reports: SOB Gastrointestinal: reports: No Symptoms Genitourinary: reports: No Symptoms Physical Examination Vital Signs: Vital Signs Temperature 97.7 F 07/20/20 17:00 Pulse Rate 106 H 07/20/20 17:00 Respiratory Rate 22 H 07/20/20 17:00 Blood Pressure 129/82 07/20/20 17:00 O2 Sat by Pulse Oximetry (%) 97 07/20/20 17:00 Constitutional: Yes: Well Nourished, Obese Eyes: Yes: WNL, Conjunctiva Clear HENT: Yes: WNL, Atraumatic Neck: Yes: WNL, Supple Cardiovascular: Yes: WNL, Regular Rate and Rhythm Respiratory: Yes: Diminished Gastrointestinal: Yes: WNL, Normal Bowel Sounds, Soft, Abdomen, Obese Musculoskeletal: Yes: WNL Extremities: Yes: WNL Edema: No Neurological: Yes: WNL, Alert, Oriented ...Motor Strength: WNL Labs: CBC, BMP 07/19/20 23:09 07/19/20 23:09 Problem List - Problems (1) Acute on chronic systolic (congestive) heart failure Assessment/Plan: Cont IV lasix Cont entresto Monitor electrolytes Code(s): I50.23 - ACUTE ON CHRONIC SYSTOLIC (CONGESTIVE) HEART FAILURE (2) Elevated troponin Assessment/Plan: ?Demand ischemia Cont to trende Code(s): R79.89 - OTHER SPECIFIED ABNORMAL FINDINGS OF BLOOD CHEMISTRY (3) Asthma Assessment/Plan: No steroids needed as this time Cont inhalers Code(s): J45.909 - UNSPECIFIED ASTHMA, UNCOMPLICATED (4) CAD (coronary artery disease) Code(s): I25.10 - ATHSCL HEART DISEASE OF [place] CORONARY ARTERY W/O ANG PCTRS (5) Cardiomyopathy Code(s): I42.9 - CARDIOMYOPATHY, UNSPECIFIED (6) Diabetes Code(s): E11.9 - TYPE 2 DIABETES MELLITUS WITHOUT COMPLICATIONS (7) Hyperlipidemia Code(s): E78.5 - HYPERLIPIDEMIA, UNSPECIFIED (8) Hypertension Code(s): I10 - ESSENTIAL (PRIMARY) HYPERTENSION Qualifiers: (9) Hypothyroidism Code(s): E03.9 - HYPOTHYROIDISM, UNSPECIFIED (10) ICD (implantable cardioverter-defibrillator) in place Code(s): Z95.810 - PRESENCE OF AUTOMATIC (IMPLANTABLE) CARDIAC DEFIBRILLATOR (11) Morbid obesity Code(s): E66.01 - MORBID (SEVERE) OBESITY DUE TO EXCESS CALORIES (12) Paroxysmal A-fib Code(s): I48.0 - PAROXYSMAL ATRIAL FIBRILLATION (13) Sleep apnea Code(s): G47.30 - SLEEP APNEA, UNSPECIFIED
[2020-07-20] MEDS: MONTELUKAST NA 10 MG TABLET PO SCH (21:11)
[2020-07-20] MEDS: INSULIN (LEVEMIR) 100 UNITS/ML UNITS SQ SCH (21:18)
--- NOTE | 2020-07-21 06:14 | PN ---
Progress Note, Physician Chief Complaint: feeling better less edema, less SOB History of Present Illness: PAF Chronic systolic CHF, non ischemic Obesity HTN CKD Non smoker - Current Medication List Current Medications: Active Medications Albuterol Sulfate (Ventolin 0.083% Nebulizer Soln -) 1 amp NEB Q4H PRN PRN Reason: SHORT OF BREATH/WHEEZING Apixaban (Eliquis -) 5 mg PO BID [facility] Last Admin: 07/20/20 21:10 Dose: 5 mg Documented by: Aspirin (Ecotrin -) 81 mg PO DAILY [facility] Last Admin: 07/20/20 11:05 Dose: 81 mg Documented by: Budesonide/Formoterol Fumarate (Symbicort 160/4.5mcg -) 2 puff IH BID [facility] Last Admin: 07/20/20 21:18 Dose: 2 puff Documented by: Furosemide (Lasix Injection -) 40 mg IVPUSH DAILY [facility] Insulin Aspart (Novolog Vial Sliding Scale -) 1 vial SQ [facility]; Protocol Last Admin: 07/20/20 21:17 Dose: 4 units Documented by: Insulin Detemir (Levemir Vial) 10 units SQ [facility] Last Admin: 07/20/20 21:18 Dose: 10 units Documented by: Insulin Detemir (Levemir Vial) 20 units SQ AM [facility] Levothyroxine Sodium (Synthroid -) 75 mcg PO DAILY@0700 [facility] Last Admin: 07/20/20 18:12 Dose: Not Given Documented by: Metoprolol Succinate (Toprol Xl -) 25 mg PO DAILY [facility] Last Admin: 07/20/20 11:05 Dose: 25 mg Documented by: Montelukast Sodium (Singulair -) 10 mg PO [facility] Last Admin: 07/20/20 21:11 Dose: 10 mg Documented by: Pantoprazole Sodium (Protonix -) 40 mg PO DAILY [facility] Last Admin: 07/20/20 18:12 Dose: Not Given Documented by: Pregabalin (Lyrica -) 25 mg PO BID [facility] Last Admin: 07/20/20 21:11 Dose: 25 mg Documented by: Sacubitril/Valsartan (Entresto 24 Mg-26 Mg Tablet) 1 tab PO BID [facility] Last Admin: 07/20/20 21:10 Dose: 1 tab Documented by: Tiotropium [place] (Spiriva Respimat) 2 puff IH DAILY [facility] Last Admin: 07/20/20 16:05 Dose: 2 puff Documented by: - Objective Vital Signs: Vital Signs Temperature 97.6 F 07/21/20 05:00 Pulse Rate 79 07/21/20 05:00 Respiratory Rate 19 07/21/20 05:00 Blood Pressure 107/69 07/21/20 05:00 O2 Sat by Pulse Oximetry (%) 100 07/21/20 05:00 Constitutional: Yes: No Distress Eyes: Yes: Conjunctiva Clear Cardiovascular: Yes: Regular Rate and Rhythm Respiratory: Yes: CTA Bilaterally Gastrointestinal: Yes: Soft, Abdomen, Obese Edema: No Neurological: Yes: Alert, Oriented Labs: CBC, BMP 07/19/20 23:09 07/19/20 23:09 INR, PTT INR 1.03 (0.83-1.09) 07/19/20 23:09 - ....Imaging EKG: Image Reviewed (TELE: NSR rare single PVC) Assessment/Plan DATA: Cardiac Catheterization 2018 non-obstructive CAD echo 05/2019 tds, mildly dilated LV, severe global hypok, RV nl CXR: clear lungs EKG: sinus, old LBBB tele: sinus IMP/PLAN: Acute on chronic systolic CHF: Mild exacerbation -Check BMP -Consider transition to PO Lasix in next 24 hours -Patient has had issues with volume depletion and MU on Lasix 40mg daily previously -Cont Toprol/Entresto elevated trop: - indeterminate range, flat trend, nl ck, similar to prior baseline values, not c/w acs HTN: - cont home meds paroxysmal afib - in sinus --cont home bb - cont home eliquis for AC (5 bid) -DC ASA
[2020-07-21] MEDS: INSULIN SLIDING SCALE (NOVOLOG) 1 VIAL SQ SCH ×4 (06:19→23:29)
[2020-07-21] MEDS: INSULIN (LEVEMIR) 100 UNITS/ML UNITS SQ SCH ×2 (06:23→23:30)
[2020-07-21] MEDS: LEVOTHYROXINE NA 75 MCG TABLET (FP) PO SCH (06:23)
[2020-07-21] MEDS ORDERED: PT OWN MED DRAWER 7, Y5N ONE (08:38)
[2020-07-21] MEDS: SACUBITRIL/VALSARTAN 24 MG-26 MG TABLET PO SCH ×2 (09:15→23:19)
[2020-07-21] MEDS: metoPROLOL SUCCINATE 25 MG TAB.SR.24H (FP) PO SCH (09:15)
[2020-07-21] MEDS: PREGABALIN 25 MG CAPSULE PO SCH ×2 (09:16→23:19)
[2020-07-21] MEDS: ASPIRIN COATED 81 MG TABLET.EC PO SCH (09:16)
[2020-07-21] MEDS: PANTOPRAZOLE 40 MG TABLET PO SCH (09:16)
[2020-07-21] MEDS: APIXABAN 5 MG TABLET PO SCH ×2 (09:16→23:19)
[2020-07-21] MEDS: BUDESONIDE/FORMETEROL FUMARATE 160/4.5 mcg INHALER IH SCH ×2 (09:16→23:20)
[2020-07-21] MEDS: TIOTROPIUM BROMIDE 2.5 MCG (SPIRIVA) RESPIMAT INHALER IH SCH (09:16)
[2020-07-21] MEDS ORDERED: ACETAMINOPHEN 325 MG TABLET (FP) ONE (09:17)
--- NOTE | 2020-07-21 11:40 | PN ---
Progress Note (short form) - Note Progress Note: PULMONARY WELL KNOWN BY OUR SERVICE APPEARS STABLE LYING SUPINE NO SOB USED CPAP LAST PM TOLERATED WELL VSS/AFEBRILE Constitutional: Yes: No Distress, Obese Eyes: Yes: Conjunctiva Clear, EOM Intact HENT: Yes: Atraumatic, Normocephalic Neck: Yes: Supple, Trachea Midline Cardiovascular: Yes: Regular Rate and Rhythm Respiratory: Yes: Diminished, On Venti-Mask, Rales, Rhonchi, SOB, SOB on Exertion. No: Accessory Muscle Use, Stridor, Tachypnea, Wheezes ...Inspection: Yes: WNL ...Clubbing: No Gastrointestinal: Yes: Normal Bowel Sounds, Soft, Abdomen, Obese Renal/: Yes: WNL Musculoskeletal: Yes: WNL Extremities: Yes: WNL Edema: Yes Peripheral Pulses WNL: Yes Integumentary: Yes: WNL Neurological: Yes: WNL, Alert, Oriented ...Motor Strength: WNL Psychiatric: Yes: WNL, Alert, Oriented Labs: noted Chest X-ray: Report Reviewed, Image Reviewed (1) CHF exacerbation Code(s): I50.9 - HEART FAILURE, UNSPECIFIED Qualifiers: Heart failure type: systolic Qualified Code(s): I50.23 - Acute on chronic systolic (congestive) heart failure (2) Acute on chronic systolic (congestive) heart failure Code(s): I50.23 - ACUTE ON CHRONIC SYSTOLIC (CONGESTIVE) HEART FAILURE (3) Asthma Code(s): J45.909 - UNSPECIFIED ASTHMA, UNCOMPLICATED (4) CAD (coronary artery disease) Code(s): I25.10 - ATHSCL HEART DISEASE OF [place] CORONARY ARTERY W/O ANG PCTRS (5) COPD (chronic obstructive pulmonary disease) Code(s): J44.9 - CHRONIC OBSTRUCTIVE PULMONARY DISEASE, UNSPECIFIED (6) Cardiomyopathy Code(s): I42.9 - CARDIOMYOPATHY, UNSPECIFIED (7) Chronic systolic CHF (congestive heart failure), NYHA class 3 Code(s): I50.22 - CHRONIC SYSTOLIC (CONGESTIVE) HEART FAILURE (8) Diabetes Code(s): E11.9 - TYPE 2 DIABETES MELLITUS WITHOUT COMPLICATIONS (9) Hyperlipidemia Code(s): E78.5 - HYPERLIPIDEMIA, UNSPECIFIED (10) Hypertension Code(s): I10 - ESSENTIAL (PRIMARY) HYPERTENSION Qualifiers: (11) Hypothyroidism Code(s): E03.9 - HYPOTHYROIDISM, UNSPECIFIED (12) ICD (implantable cardioverter-defibrillator) in place Code(s): Z95.810 - PRESENCE OF AUTOMATIC (IMPLANTABLE) CARDIAC DEFIBRILLATOR (13) Morbid obesity Code(s): E66.01 - MORBID (SEVERE) OBESITY DUE TO EXCESS CALORIES (14) Paroxysmal A-fib Code(s): I48.0 - PAROXYSMAL ATRIAL FIBRILLATION (15) Shortness of breath at rest Code(s): R06.02 - SHORTNESS OF BREATH (16) Sleep apnea Code(s): G47.30 - SLEEP APNEA, UNSPECIFIED PLAN: IV Lasix Supplemental O2 as needed BD TX PRN Symbicort BID Daily weights Follow I & O Agree to monitor off ABX No smoking NIPPV ordered for use Will follow Vipul MIRELES MD
[2020-07-21 12:14] LABS: BLOOD UREA NITROGEN 18.3 mg/dL (7-18); CALCIUM 9.5 mg/dL (8.5-10.1); CREATININE 1.3 mg/dL (0.55-1.3); POTASSIUM 4.2 mmol/L (3.5-5.1)
--- NOTE | 2020-07-21 13:17 | PN ---
Progress Note, Physician History of Present Illness: stable no new issues - Current Medication List Current Medications: Active Medications Albuterol Sulfate (Ventolin 0.083% Nebulizer Soln -) 1 amp NEB Q4H PRN PRN Reason: SHORT OF BREATH/WHEEZING Apixaban (Eliquis -) 5 mg PO BID [facility] Last Admin: 07/21/20 09:16 Dose: 5 mg Documented by: Budesonide/Formoterol Fumarate (Symbicort 160/4.5mcg -) 2 puff IH BID [facility] Last Admin: 07/21/20 09:16 Dose: 2 puff Documented by: Furosemide (Lasix Injection -) 40 mg IVPUSH DAILY [facility] Last Admin: 07/21/20 09:15 Dose: 40 mg Documented by: Insulin Aspart (Novolog Vial Sliding Scale -) 1 vial SQ [facility]; Protocol Last Admin: 07/21/20 11:53 Dose: 2 units Documented by: Insulin Detemir (Levemir Vial) 10 units SQ HS [facility] Last Admin: 07/20/20 21:18 Dose: 10 units Documented by: Insulin Detemir (Levemir Vial) 20 units SQ AM [facility] Last Admin: 07/21/20 06:23 Dose: 20 units Documented by: Levothyroxine Sodium (Synthroid -) 75 mcg PO DAILY@0700 [facility] Last Admin: 07/21/20 06:23 Dose: 75 mcg Documented by: Metoprolol Succinate (Toprol Xl -) 25 mg PO DAILY [facility] Last Admin: 07/21/20 09:15 Dose: 25 mg Documented by: Montelukast Sodium (Singulair -) 10 mg PO HS [facility] Last Admin: 07/20/20 21:11 Dose: 10 mg Documented by: Pantoprazole Sodium (Protonix -) 40 mg PO DAILY [facility] Last Admin: 07/21/20 09:16 Dose: 40 mg Documented by: Pregabalin (Lyrica -) 25 mg PO BID [facility] Last Admin: 07/21/20 09:16 Dose: 25 mg Documented by: Sacubitril/Valsartan (Entresto 24 Mg-26 Mg Tablet) 1 tab PO BID [facility] Last Admin: 07/21/20 09:15 Dose: 1 tab Documented by: Tiotropium [place] (Spiriva Respimat) 2 puff IH DAILY [facility] Last Admin: 07/21/20 09:16 Dose: 2 puff Documented by: - Objective Vital Signs: Vital Signs Temperature 98.0 F 07/21/20 08:19 Pulse Rate 93 H 07/21/20 11:55 Respiratory Rate 19 07/21/20 08:19 Blood Pressure 110/61 07/21/20 08:19 O2 Sat by Pulse Oximetry (%) 96 07/21/20 11:55 Constitutional: Yes: No Distress, Calm, Obese Cardiovascular: Yes: S1, S2 Respiratory: Yes: Regular, CTA Bilaterally Gastrointestinal: Yes: Normal Bowel Sounds, Soft Musculoskeletal: Yes: WNL Extremities: Yes: WNL Neurological: Yes: Alert, Oriented Psychiatric: Yes: Alert, Oriented Labs: CBC, BMP 07/19/20 23:09 07/21/20 11:30 INR, PTT INR 1.03 (0.83-1.09) 07/19/20 23:09 Assessment/Plan (1) CHF exacerbation Code(s): I50.9 - HEART FAILURE, UNSPECIFIED Qualifiers: Heart failure type: systolic Qualified Code(s): I50.23 - Acute on chronic systolic (congestive) heart failure (2) Acute on chronic systolic (congestive) heart failure Code(s): I50.23 - ACUTE ON CHRONIC SYSTOLIC (CONGESTIVE) HEART FAILURE (3) Asthma Code(s): J45.909 - UNSPECIFIED ASTHMA, UNCOMPLICATED (4) CAD (coronary artery disease) Code(s): I25.10 - ATHSCL HEART DISEASE OF [place] CORONARY ARTERY W/O ANG PCTRS (5) COPD (chronic obstructive pulmonary disease) Code(s): J44.9 - CHRONIC OBSTRUCTIVE PULMONARY DISEASE, UNSPECIFIED (6) Cardiomyopathy Code(s): I42.9 - CARDIOMYOPATHY, UNSPECIFIED (7) Chronic systolic CHF (congestive heart failure), NYHA class 3 Code(s): I50.22 - CHRONIC SYSTOLIC (CONGESTIVE) HEART FAILURE (8) Diabetes Code(s): E11.9 - TYPE 2 DIABETES MELLITUS WITHOUT COMPLICATIONS (9) Hyperlipidemia Code(s): E78.5 - HYPERLIPIDEMIA, UNSPECIFIED (10) Hypertension Code(s): I10 - ESSENTIAL (PRIMARY) HYPERTENSION Qualifiers: (11) Hypothyroidism Code(s): E03.9 - HYPOTHYROIDISM, UNSPECIFIED (12) ICD (implantable cardioverter-defibrillator) in place Code(s): Z95.810 - PRESENCE OF AUTOMATIC (IMPLANTABLE) CARDIAC DEFIBRILLATOR (13) Morbid obesity Code(s): E66.01 - MORBID (SEVERE) OBESITY DUE TO EXCESS CALORIES (14) Paroxysmal A-fib Code(s): I48.0 - PAROXYSMAL ATRIAL FIBRILLATION (15) Shortness of breath at rest Code(s): R06.02 - SHORTNESS OF BREATH (16) Sleep apnea Code(s): G47.30 - SLEEP APNEA, UNSPECIFIED plan continue current mgmt monitor resp support rest as per the team
[2020-07-21] MEDS ORDERED: INSULIN (NOVOLOG) ASPART 100 UNITS/ML 10ML VIAL ONE (17:01)
--- NOTE | 2020-07-21 22:56 | PN ---
Progress Note, Physician - Current Medication List Current Medications: Active Medications Albuterol Sulfate (Ventolin 0.083% Nebulizer Soln -) 1 amp NEB Q4H PRN PRN Reason: SHORT OF BREATH/WHEEZING Apixaban (Eliquis -) 5 mg PO BID [facility] Last Admin: 07/21/20 09:16 Dose: 5 mg Documented by: Budesonide/Formoterol Fumarate (Symbicort 160/4.5mcg -) 2 puff IH BID [facility] Last Admin: 07/21/20 09:16 Dose: 2 puff Documented by: Furosemide (Lasix Injection -) 40 mg IVPUSH DAILY [facility] Last Admin: 07/21/20 09:15 Dose: 40 mg Documented by: Insulin Aspart (Novolog Vial Sliding Scale -) 1 vial SQ [facility]; Protocol Last Admin: 07/21/20 17:19 Dose: 6 units Documented by: Insulin Detemir (Levemir Vial) 10 units SQ [facility] Last Admin: 07/20/20 21:18 Dose: 10 units Documented by: Insulin Detemir (Levemir Vial) 20 units SQ AM [facility] Last Admin: 07/21/20 06:23 Dose: 20 units Documented by: Levothyroxine Sodium (Synthroid -) 75 mcg PO DAILY@0700 [facility] Last Admin: 07/21/20 06:23 Dose: 75 mcg Documented by: Metoprolol Succinate (Toprol Xl -) 25 mg PO DAILY [facility] Last Admin: 07/21/20 09:15 Dose: 25 mg Documented by: Montelukast Sodium (Singulair -) 10 mg PO [facility] Last Admin: 07/20/20 21:11 Dose: 10 mg Documented by: Pantoprazole Sodium (Protonix -) 40 mg PO DAILY [facility] Last Admin: 07/21/20 09:16 Dose: 40 mg Documented by: Pregabalin (Lyrica -) 25 mg PO BID [facility] Last Admin: 07/21/20 09:16 Dose: 25 mg Documented by: Sacubitril/Valsartan (Entresto 24 Mg-26 Mg Tablet) 1 tab PO BID [facility] Last Admin: 07/21/20 09:15 Dose: 1 tab Documented by: Tiotropium [place] (Spiriva Respimat) 2 puff IH DAILY [facility] Last Admin: 07/21/20 09:16 Dose: 2 puff Documented by: - Objective Vital Signs: Vital Signs Temperature 98.8 F 07/21/20 17:00 Pulse Rate 131 H 07/21/20 17:00 Respiratory Rate 20 07/21/20 17:00 Blood Pressure 109/84 07/21/20 17:00 O2 Sat by Pulse Oximetry (%) 99 07/21/20 22:36 Labs: CBC, BMP 07/19/20 23:09 07/21/20 11:30 INR, PTT INR 1.03 (0.83-1.09) 07/19/20 23:09 Problem List - Problems (1) Acute on chronic systolic (congestive) heart failure Code(s): I50.23 - ACUTE ON CHRONIC SYSTOLIC (CONGESTIVE) HEART FAILURE (2) Elevated troponin Code(s): R79.89 - OTHER SPECIFIED ABNORMAL FINDINGS OF BLOOD CHEMISTRY (3) Asthma Code(s): J45.909 - UNSPECIFIED ASTHMA, UNCOMPLICATED (4) CAD (coronary artery disease) Code(s): I25.10 - ATHSCL HEART DISEASE OF [place] CORONARY ARTERY W/O ANG PCTRS (5) Cardiomyopathy Code(s): I42.9 - CARDIOMYOPATHY, UNSPECIFIED (6) Diabetes Code(s): E11.9 - TYPE 2 DIABETES MELLITUS WITHOUT COMPLICATIONS (7) Hyperlipidemia Code(s): E78.5 - HYPERLIPIDEMIA, UNSPECIFIED (8) Hypertension Code(s): I10 - ESSENTIAL (PRIMARY) HYPERTENSION Qualifiers: (9) Hypothyroidism Code(s): E03.9 - HYPOTHYROIDISM, UNSPECIFIED (10) ICD (implantable cardioverter-defibrillator) in place Code(s): Z95.810 - PRESENCE OF AUTOMATIC (IMPLANTABLE) CARDIAC DEFIBRILLATOR (11) Morbid obesity Code(s): E66.01 - MORBID (SEVERE) OBESITY DUE TO EXCESS CALORIES (12) Paroxysmal A-fib Code(s): I48.0 - PAROXYSMAL ATRIAL FIBRILLATION (13) Sleep apnea Code(s): G47.30 - SLEEP APNEA, UNSPECIFIED
[2020-07-21] MEDS: MONTELUKAST NA 10 MG TABLET PO SCH (23:19)
[2020-07-22] MEDS: INSULIN SLIDING SCALE (NOVOLOG) 1 VIAL SQ SCH ×2 (06:35→11:43)
[2020-07-22] MEDS: INSULIN (LEVEMIR) 100 UNITS/ML UNITS SQ SCH (06:35)
[2020-07-22] MEDS: LEVOTHYROXINE NA 75 MCG TABLET (FP) PO SCH (06:36)
[2020-07-22] MEDS ORDERED: PT OWN MED DRAWER 7, Y5N ONE (09:35)
[2020-07-22] MEDS: TIOTROPIUM BROMIDE 2.5 MCG (SPIRIVA) RESPIMAT INHALER IH SCH (09:58)
[2020-07-22] MEDS: BUDESONIDE/FORMETEROL FUMARATE 160/4.5 mcg INHALER IH SCH (09:58)
[2020-07-22] MEDS: SACUBITRIL/VALSARTAN 24 MG-26 MG TABLET PO SCH (09:59)
[2020-07-22] MEDS: metoPROLOL SUCCINATE 25 MG TAB.SR.24H (FP) PO SCH (09:59)
[2020-07-22] MEDS: PREGABALIN 25 MG CAPSULE PO SCH (09:59)
[2020-07-22] MEDS: PANTOPRAZOLE 40 MG TABLET PO SCH (09:59)
[2020-07-22] MEDS: APIXABAN 5 MG TABLET PO SCH (09:59)
[2020-07-22] MEDS ORDERED: FUROSEMIDE 40 MG TABLET (FP) PO ONE (11:15)
--- NOTE | 2020-07-22 11:20 | PN ---
Progress Note (short form) - Note Progress Note: Chief Complaint: feeling better, back to baseline. no cp sob palps dizzy History of Present Illness: PAF Chronic systolic CHF, non ischemic Obesity HTN CKD Non smoker Current Medications Generic Name Dose Route Start Last Admin Trade Name Freq PRN Reason Stop Dose Admin Albuterol Sulfate 1 amp 07/20/20 09:55 Ventolin 0.083% Nebulizer Soln - NEB Q4H PRN SHORT OF BREATH/WHEEZING Apixaban 5 mg 07/20/20 10:00 07/22/20 09:59 Eliquis - PO 5 mg BID DOM Administration Budesonide/Formoterol Fumarate 2 puff 07/20/20 10:00 07/22/20 09:58 Symbicort 160/4.5mcg - IH 2 puff BID DOM Administration Furosemide 40 mg 07/22/20 11:15 Lasix - PO 07/22/20 11:16 ONCE ONE Furosemide 20 mg 07/23/20 10:00 Lasix - PO DAILY DOM Insulin Aspart 1 vial 07/20/20 11:00 07/22/20 06:35 Novolog Vial Sliding Scale - SQ 4 units ACHS DOM Administration Protocol Insulin Detemir 10 units 07/20/20 22:00 07/21/20 23:30 Levemir Vial SQ 10 units HS [facility] Administration Insulin Detemir 20 units 07/21/20 07:00 07/22/20 06:35 Levemir Vial SQ 20 units AM [facility] Administration Levothyroxine Sodium 75 mcg 07/20/20 11:00 07/22/20 06:36 Synthroid - PO 75 mcg DAILY@0700 [facility] Administration Metoprolol Succinate 25 mg 07/20/20 10:00 07/22/20 09:59 Toprol Xl - PO 25 mg DAILY [facility] Administration Montelukast Sodium 10 mg 07/20/20 22:00 07/21/20 23:19 Singulair - PO 10 mg HS [facility] Administration Pantoprazole Sodium 40 mg 07/20/20 11:00 07/22/20 09:59 Protonix - PO 40 mg DAILY [facility] Administration Pregabalin 25 mg 07/20/20 11:00 07/22/20 09:59 Lyrica - PO 25 mg BID DOM Administration Sacubitril/Valsartan 1 tab 07/20/20 11:00 07/22/20 09:59 Entresto 24 Mg-26 Mg Tablet PO 1 tab BID [facility] Administration Tiotropium [place] 2 puff 07/20/20 10:00 07/22/20 09:58 Spiriva Respimat IH 2 puff DAILY [facility] Administration Vital Signs Period Temp Pulse Resp BP Sys/Mcgrath Pulse Ox Last 24 Hr 97.6 F-98.8 F 82-131 18-22 109-119/63-84 95-100 Constitutional: Yes: No Distress Eyes: Yes: Conjunctiva Clear Cardiovascular: Yes: Regular Rate and Rhythm Respiratory: Yes: CTA Bilaterally nl eff Gastrointestinal: Yes: Soft, Abdomen, Obese Edema: No no jaundice diaphoresis Neurological: Yes: Alert, Oriented Labs: CBC, BMP 07/19/20 23:09 07/21/20 11:30 - ....Imaging EKG: Image Reviewed (TELE: NSR rare single PVC) Cardiac Catheterization 2018 non-obstructive CAD echo 05/2019 tds, mildly dilated LV, severe global hypok, RV nl CXR: clear lungs EKG: sinus, old LBBB tele: sinus IMP/PLAN: Acute on chronic systolic CHF: Mild exacerbation -vol back to baseline after iv lasix, will change to po now. Pt had leonardo with lasix 40 qd but then had vol buildup on lasix 20 qd so will dc on lasix 40 qd and lasix 20 qd alternating days. -Cont Toprol/Entresto elevated trop: - indeterminate range, flat trend, nl ck, similar to prior baseline values, not c/w acs HTN: - cont home meds paroxysmal afib - in sinus --cont home bb - cont home eliquis for AC (5 bid) -DC ASA cardiac mendez stable for dc
[2020-07-22] MEDS ORDERED: INSULIN (NOVOLOG) ASPART 100 UNITS/ML 10ML VIAL ONE (12:17)
[2020-07-22 12:59] VITALS: BP 118/70; PULSE 89; TEMP 98
[2020-07-23] MEDS ORDERED: FUROSEMIDE 20 MG TABLET (FP) PO SCH (10:00)
== END 2020-07-22 13:05 | disposition home health service (06) | DRG 291 ==
LOC: JER 22:44 → JERBED 07-20 00:40 → J4W 07-20 11:47
PROVIDERS: ADMIT Internal Medicine; ATTEND Internal Medicine
DX: I13.0 Hypertensive heart and chronic kidney disease with heart failure and stage 1 through stage 4 chronic kidney disease, or unspecified chronic kidney disease (principal); I50.23 Acute on chronic systolic (congestive) heart failure; Z68.41 Body mass index [BMI] 40.0-44.9, adult; E66.01 Morbid (severe) obesity due to excess calories; E78.5 Hyperlipidemia, unspecified; E03.9 Hypothyroidism, unspecified; J45.40 Moderate persistent asthma, uncomplicated; G47.33 Obstructive sleep apnea (adult) (pediatric); I48.0 Paroxysmal atrial fibrillation; N18.9 Chronic kidney disease, unspecified; I25.10 Atherosclerotic heart disease of native coronary artery without angina pectoris; I42.9 Cardiomyopathy, unspecified; E11.9 Type 2 diabetes mellitus without complications
CPT/HCPCS: 36415; 36600; 71045-TC-FY; 80048; 80053; 81003; 82550; 82803; 82962; 83605; 83735; 83880; 84484; 85025; 85610; 85730; 87040; 93005; 93010; 94660; 99285-25; U0003

== ENCOUNTER 2020-08-01 16:53 | Emergency (ER) | payer OTHER ==
[2020-08-01 17:07] VITALS: TEMP 98.2; BMI 38.7
--- NOTE | 2020-08-01 17:07 | PDOC ---
Rapid Medical Evaluation Time Seen by Provider: 08/01/20 17:03 Medical Evaluation: Allergies Allergy/AdvReac Type Severity Reaction Status Date / Time tomato Allergy Mild Hives Verified 08/01/20 17:03 chlorpheniramine Allergy Verified 08/01/20 17:03 cimetidine Allergy Verified 08/01/20 17:03 codeine [Codeine] Allergy Verified 08/01/20 17:03 ibuprofen Allergy Verified 08/01/20 17:03 latex [Latex] Allergy Verified 08/01/20 17:03 Latex, Natural Rubber Allergy Verified 08/01/20 17:03 pseudoephedrine Allergy Verified 08/01/20 17:03 salmeterol xinafoate Allergy Verified 08/01/20 17:03 [From Advair Diskus] shellfish derived Allergy Verified 08/01/20 17:03 Sulfa (Sulfonamide Allergy Verified 08/01/20 17:03 Antibiotics) [Sulfa(Sulfonamide Antibiotics)] Chocolate Allergy Mild Hives Uncoded 08/01/20 17:03 shrimp Allergy Mild Hives Uncoded 08/01/20 17:03 08/01/20 17:06 CC: wheezing, sob with mscp since 9am, took neb this am with no improvement Exam: vss, + exp wheeze Plan: cardiac w/u Discharge Disposition - Diagnosis Shortness of breath - Referrals - Patient Instructions - Post Discharge Activity
--- NOTE | 2020-08-01 17:24 | PDOC ---
History of Present Illness - General Chief Complaint: Chest Pain Stated Complaint: ASTHMA Time Seen by Provider: 08/01/20 17:03 History Source: Patient Exam Limitations: No Limitations - History of Present Illness Initial Comments: 08/01/20 17:23 60F with PMH HFrHF 25% s/p ICD and 2010 stenting, AFIB on Eliquis, DM, anemia, hypothyroidism, morbid obesity, asthma, VAHID on CPAP, HTN, HLD, chronic trop leak, chronic lower back pain with sciatica, presenting w sudden onset persist ent sharp midsternal/L chest pain and SOB while lying in bed at 9am this morning. Took 2 tylenol and nebulizer x3 w/o relief. Not associated w exertion/position. Last admitted from 07/19- for acute on CHF exacerbation. Denies fever, n/v, cough, ABD pain, extremity swelling. Past History - Medical History Allergies/Adverse Reactions: Allergies Allergy/AdvReac Type Severity Reaction Status Date / Time tomato Allergy Mild Hives Verified 08/01/20 17:03 chlorpheniramine Allergy Verified 08/01/20 17:03 cimetidine Allergy Verified 08/01/20 17:03 codeine [Codeine] Allergy Verified 08/01/20 17:03 ibuprofen Allergy Verified 08/01/20 17:03 latex [Latex] Allergy Verified 08/01/20 17:03 Latex, Natural Rubber Allergy Verified 08/01/20 17:03 pseudoephedrine Allergy Verified 08/01/20 17:03 salmeterol xinafoate Allergy Verified 08/01/20 17:03 [From Advair Diskus] shellfish derived Allergy Verified 08/01/20 17:03 Sulfa (Sulfonamide Allergy Verified 08/01/20 17:03 Antibiotics) [Sulfa(Sulfonamide Antibiotics)] Chocolate Allergy Mild Hives Uncoded 08/01/20 17:03 shrimp Allergy Mild Hives Uncoded 08/01/20 17:03 Home Medications: Ambulatory Orders Insulin Glargine,Hum.rec.anlog [Lantus Solostar PEN -] 20 units SQ AM 08/09/16 Budesonide/Formeterol Fumarate [SYMBICORT 160/4.5mcg -] 2 puff PO BID 10/14/16 Albuterol 2.5/Ipratropium 0.5 [Duoneb -] 1 amp NEB Q6H PRN #90 amp 05/21/19 Levothyroxine [Synthroid -] 75 mcg PO DAILY #30 tablet 05/21/19 Insulin Glargine,Hum.rec.anlog [Lantus Solostar PEN -] 10 units SQ HS 08/13/19 Metoprolol Succinate [Toprol XL -] 25 mg PO DAILY 10/10/19 Apixaban [Eliquis -] 5 mg PO BID 11/02/19 Linaclotide [Linzess] 290 mcg PO DAILY 11/02/19 Sacubitril/Valsartan [Entresto 24 mg-26 mg Tablet] 1 each PO ASDIR 11/02/19 Albuterol 0.083% Nebulizer Jyothi [Ventolin 0.083% Nebulizer Soln -] 1 amp NEB Q4H PRN amp 12/13/19 Spironolactone [Aldactone -] 25 mg PO DAILY tablet 12/13/19 Aspirin Coated [Ecotrin -] 81 mg PO DAILY #30 tablet.ec 12/27/19 Potassium Chloride 10 meq PO DAILY 01/15/20 Pregabalin [Lyrica -] 25 mg PO BID 01/15/20 Tiotropium [place] [Spiriva Respimat] 2 puff IH DAILY #1 mist.inhal 01/15/20 Albuterol 0.083% Nebulizer Jyothi [Ventolin 0.083% Nebulizer Soln -] 1 amp NEB Q4H PRN #0 amp 01/20/20 Furosemide [Lasix -] 20 mg PO DAILY #30 tablet 01/20/20 Montelukast Na [Singulair -] 10 mg PO HS #30 tablet 01/20/20 Pantoprazole Sodium [Protonix -] 40 mg PO DAILY #30 tablet.ec 01/20/20 Potassium Chloride [K-Dur -] 10 meq PO DAILY #30 tablet.er 01/20/20 Furosemide [Lasix -] 20 mg PO DAILY tablet 02/23/20 Ondansetron [Zofran *Odt*] 4 mg SL TID PRN #10 od.tablet 03/04/20 Furosemide [Lasix -] 20 mg PO DAILY tablet 05/28/20 Sacubitril/Valsartan [Entresto 24 mg-26 mg Tablet] 1 tab PO BID #60 tablet 05/28/20 Furosemide [Lasix -] 20 mg PO DAILY tablet 07/11/20 Furosemide [Lasix] 20 mg PO Q2D #30 tablet 07/22/20 Furosemide [Lasix] 40 mg PO Q2D #30 tablet 07/22/20 Ethyl Chloride 100 ml TP QID 10 Days #1 spray 08/01/20 Anemia: Yes Asthma: Yes Cancer: No Cardiac Disorders: Yes ([place] X 2, pacemaker, Afib) CVA: No COPD: Yes CHF: Yes (S/P ICD) DVT: No Dementia: No Diabetes: Yes GI Disorders: Yes (PEPTIC ULCER) Disorders: (CKD) HTN: Yes Hypercholesterolemia: Yes Liver Disease: No Psychiatric Problems: Yes (DEPRESSION) Seizures: No Thyroid Disease: Yes (hypo) - Surgical History Abdominal Surgery: Yes Appendectomy: No Cardiac Surgery: Yes (pacemaker and stents) Cholecystectomy: Yes GI Surgery: Yes (CHOLECYSTECTOMY, HYSTERECTOMY) Lung Surgery: No Neurologic Surgery: No Orthopedic Surgery: Yes (bilateral knee replacement) - Immunization History Immunization Up to Date: No - Psycho-Social/Smoking History Smoking Status: No Smoking History: Never smoked Have you smoked in the past 12 months: No Number of Cigarettes Smoked Daily: 0 - Substance Abuse Hx (Audit-C & DAST Scrn) How often the patient has a drink containing alcohol: Never Score: In Men: 4 or > Positive; In Women: 3 or > Positive: 0 Screen Result (Pos requires Nsg. Audit-10AR): Negative In the last yr the pt used illegal drug/Rx for NonMed reason: No Score: Yes response is considered Positive: 0 Screen Result (Positive result requires Nsg. DAST-10): Negative Review of Systems - Review of Systems Constitutional: No: Chills, Fever HEENTM: No: Eye Pain, Nose Congestion Respiratory: Yes: Shortness of Breath. No: Cough Cardiac (ROS): Yes: Chest Pain. No: Palpitations ABD/GI: No: Abdominal Distended, Nausea, Vomiting : No: Burning, Dysuria Musculoskeletal: No: Back Pain, Joint Pain Integumentary: No: Bruising, Flushing Neurological: No: Headache, Seizure Psychiatric: No: Anxiety, Depression Endocrine: No: Intolerance to Cold, Intolerance to Heat Hematologic/Lymphatic: No: Anemia, Blood Clots *Physical Exam - Vital Signs Last Vital Signs Temp Pulse Resp BP Pulse Ox 98.2 F 100 H 18 141/81 100 08/01/20 17:04 08/01/20 17:04 08/01/20 17:04 08/01/20 17:04 08/01/20 17:04 - Physical Exam General Appearance: Yes: Nourished, Appropriately Dressed, Mild Distress HEENT: positive: EOMI, ZAC, Normal Voice, Hearing Grossly Normal. negative: Scleral Icterus (R), Scleral Icterus (L) Respiratory/Chest: positive: Chest Tender (L chest/sternum), Lungs Clear, Normal Breath Sounds. negative: Respiratory Distress, Accessory Muscle Use, Labored Respiration, Rapid RR, Crackles, Rales, Rhonchi, Stridor, Wheezing Cardiovascular: positive: Regular Rhythm, Regular Rate, S1, S2. negative: Murmur Gastrointestinal/Abdominal: positive: Normal Bowel Sounds, Flat, Soft. negative: Tender, Organomegaly Integumentary: positive: Normal Color, Warm Neurologic: positive: Fully Oriented, Alert, Normal Mood/Affect, Normal Response, Responsive Heart Score/ECG Review - History History: Slightly suspicious - Electrocardiogram EKG: Normal - Age Age: 45-65 - Risk Factors Risk Factors Heart Score: Yes Hx Hypercholesterolemia, Yes Hx Hypertension, Yes Hx Diabetes, Yes Hx Obesity Based on the list above the patient has:: >/=3 risk factors or Hx atherosclerotic disease - Troponin Troponin: </= normal limit - Score Heart Score - Total: 3 ED Treatment Course - LABORATORY CBC & Chemistry Diagram: 08/01/20 17:49 08/01/20 17:49 Medical Decision Making - Medical Decision Making 08/01/20 18:25 EKG - NSR, LBBB, HR 100, QTc 521, no ST changes CXR - reduced congestive changes vs 07/19/20, no focal infiltrate/consolidation, pacemaker in place --- 60F with PMH HFrHF 25% s/p ICD and 2010 stenting, AFIB on Eliquis, DM, anemia, hypothyroidism, morbid obesity, asthma, VAHID on CPAP, HTN, HLD, chronic trop leak, chronic lower back pain with sciatica, presenting w sudden onset persistent sharp midsternal/L chest pain and SOB while lying in bed at 9am this morning Likely costochondritis (chest tender)Low concern for ACS (neg tropx2, NSR) vs PE (on eliquis) vs PNA (no consolidation) vs CHF exacerbation (no extremity swelling) vs asthma (no wheezing) Cr 1.4, trop 0.19, BNP 1600 at baseline Given tylenol w pain relief Contacted cards Dr Cartwright - agrees likely costochondritis, recent admission w neg cardiac workup, advised get 2xtrop, DC w cards f/u DC home w cards f/u, ethyl chloride, supportive care Discharge - Discharge Information Problems reviewed: Yes Clinical Impression/Diagnosis: Costochondritis Condition: Improved Disposition: HOME - Additional Discharge Information Prescriptions: Ethyl Chloride 100 ml TP QID 10 Days #1 spray - Follow up/Referral Referrals: Reece Lanza MD [Primary Care Provider] - Tylor Mooney MD [Staff Physician] - - Patient Discharge Instructions Patient Printed Discharge Instructions: DI for Costochondritis Additional Instructions: Your exam did not show anything concerning Take 1000mg tylenol every 6 hours or the prescribed Ethyl Chloride spray if you have pain Follow up with your financial data analyst Dr Mooney within the next 7 days - Post Discharge Activity
[2020-08-01] MEDS ORDERED: ACETAMINOPHEN 1000 MG/100 ML VIAL (NON FORMULARY) IVPB ONE (17:49)
[2020-08-01] MEDS ORDERED: ACETAMINOPHEN INJECTION 100 ML IVPB ONE (17:53)
[2020-08-01 17:57] LABS: BASO % 0.7 % (0-2.0); EOS % 0.2 % (0-4.5); HEMATOCRIT 36.3 % (32.4-45.2); HEMOGLOBIN 11.5 GM/dL (10.7-15.3); LYMPH % 15.9 % (8-40); MCH 26.1 pg (25.7-33.7); MCHC 31.6 g/dl (32.0-36.0); MEAN CELL VOLUME 82.4 fl (80-96); MEAN PLT VOLUME 9.4 fl (7.5-11.1); MONO % 4.2 % (3.8-10.2); PLATELET COUNT 278 K/MM3 (134-434); RDW 18.3 % (11.6-15.6); WHITE BLOOD COUNT 7.7 K/mm3 (4.0-10.0)
[2020-08-01 18:06] LABS: INR 1.35 (0.83-1.09)
--- NOTE | 2020-08-01 18:10 | PDOC ---
Documentation entered by Liza Young SCRIBE, acting as scribe for Letty Richards MD. Letty Richards MD: This documentation has been prepared by the Riya siegel Sydney, SCRIBE, under my direction and personally reviewed by me in its entirety. I confirm that the documentation accurately reflects all work, treatment, procedures, and medical decision making performed by me. Attending Attestation - Resident Resident Name: Edouard Subramanian - ED Attending Attestation I have performed the following: I have examined & evaluated the patient, The case was reviewed & discussed with the resident, I agree w/resident's findings & plan, Exceptions are as noted - HPI HPI: 08/01/20 17:27 60 YO female BIBA for midsternal chest pain that started today at 9am Patient is a 60 year old female with a significant past medical history of CHF, asthma, DM, CKD, HTN, HLD, Afib (on Eliquis), hypothyroidism who presents to the ED with midsternal chest pain since 9 this morning. As per patient, she was in bed and suddenly began feeling short of breath and experiencing a stabbing chest pain. Patient reports administering albuterol with no relief of her symptoms, prompting her to call EMS. She also endorses fever and some nausea. Patient was recently admitted for shortness of breath and COPD exacerbation. She states she has not experienced similar symptoms in the past. Denies chills, headache, vomiting, diarrhea, or urinary changes. Allergies: As per Nurse notes PCP: Dr. Reece Lazna - Physicial Exam PE: 08/01/20 17:29 this 60 yo female has a PMH of CAD,CHF,CKD and p/w chest pain and shortness of breath 08/01/20 17:58 obese 60 yo female p/w chest pain and some shortness of breath head ncat neck supple lungs no rales cvs irreg irreg rhythm abdomen protuberant skin warm and dry extremities no pitting edema neuro axox3,ambulatory - Medical Decision Making 08/01/20 18:02 concern for ACS,chf exacerbation ekg,cxr,troponn,bnp,cbc.comp,consult with cards 08/01/20 18:05 her last echo was Oct 2019 and she has severely reduced EF 20-25% her PCP is Dr Reece Lanza,and Dr Castellanos is her corrosion technician 08/01/20 18:08 08/01/20 18:51 Dr Subramanian spoke with Dr Cartwright and it was decided to have 2 trop and if they are negative she can go home 08/01/20 21:48 second troponin decreased to 0.13 and she will be discharged home Discharge - Discharge Information Problems reviewed: Yes Clinical Impression/Diagnosis: Costochondritis Condition: Improved Disposition: HOME - Additional Discharge Information Prescriptions: Ethyl Chloride 100 ml TP QID 10 Days #1 spray - Follow up/Referral Referrals: Tylor Mooney MD [Staff Physician] - Reece Lanza MD [Primary Care Provider] - - Patient Discharge Instructions Patient Printed Discharge Instructions: DI for Costochondritis Additional Instructions: Your exam did not show anything concerning Take 1000mg tylenol every 6 hours or the prescribed Ethyl Chloride spray if you have pain Follow up with your corrosion technician Dr Mooney within the next 7 days - Post Discharge Activity
[2020-08-01 18:28] LABS: ALBUMIN 3.7 g/dl (3.4-5.0); BILIRUBIN,TOTAL 0.4 mg/dL (0.2-1); BLOOD UREA NITROGEN 15.3 mg/dL (7-18); CALCIUM 9.4 mg/dL (8.5-10.1); CREATININE 1.4 mg/dL (0.55-1.3); MAGNESIUM 1.7 mg/dL (1.8-2.4); POTASSIUM 4.3 mmol/L (3.5-5.1); TOT PROT 7.5 g/dl (6.4-8.2)
[2020-08-01 19:47] VITALS: BP 115/76; PULSE 85
--- NOTE | 2020-08-02 09:22 | EKG ---
Test Reason : Blood Pressure : / mmHG Vent. Rate : 100 BPM Atrial Rate : 100 BPM P-R Int : 144 ms QRS Dur : 128 ms QT Int : 404 ms P-R-T Axes : 056 -21 103 degrees QTc Int : 521 ms NORMAL SINUS RHYTHM LEFT ATRIAL ENLARGEMENT LEFT BUNDLE BRANCH BLOCK ABNORMAL ECG WHEN COMPARED WITH ECG OF 19-JUL-2020 23:18, NO SIGNIFICANT CHANGE WAS FOUND Confirmed by MD GAL, ALVARADO ([id number]) on 08/02/2020 9:22:04 AM Referred By: Confirmed By:ALVARADO SANTO MD
== END 2020-08-01 22:06 | disposition home or self-care (01) ==
LOC: JER 16:53
DX: R06.02 Shortness of breath (principal)
CPT/HCPCS: 36415; 71045-TC-FY; 80053; 82550; 82553; 83735; 83880; 84484; 85025; 85610; 85730; 93005; 93010; 99284-25; J0131

== ENCOUNTER 2020-09-02 19:49 | Inpatient (IN) | payer OTHER ==
--- NOTE | 2020-09-02 20:08 | PDOC ---
History of Present Illness - General Stated Complaint: SHORTNESS OF BREATH Time Seen by Provider: 09/02/20 20:02 History Source: Patient Exam Limitations: No Limitations - History of Present Illness Initial Comments: 09/02/20 20:33 60F with PMH of HFrHF 25% s/p ICD and stents, Afib (on Eliquis), DM, morbid obesity, asthma, VAHID on CPAP, HTN, chronic trop leak, presenting w SOB that started Friday, that's gradually worsened. SOB is worse on exertion, improves with rest. Inhaler does not improve SOB. She's had worsening orthopnea, PND with her CPAP, and productive cough. She also had fever on friday that resolved, and was around her grandchildren that had fevers and cold-like symptoms. Her dose of lasix was reduced 1 week ago. Denies CP or LE edema. PMH: as in HPI SH: see below Meds: In chart Allergies: in chart PCP: Dr. Lanza Specialist: Dr. Mooney (cardio) ROS GENERAL/CONSTITUTIONAL: No fever or chills. No weakness. HEENT: No change in vision. No ear pain or discharge. No sore throat. CARDIOVASCULAR: No chest pain or shortness of breath RESPIRATORY: No cough, wheezing, or hemoptysis. GASTROINTESTINAL: No nausea, vomiting, diarrhea or constipation. GENITOURINARY: No dysuria, frequency, or change in urination. MUSCULOSKELETAL: No joint or muscle swelling or pain. No neck or back pain. SKIN: No rash NEUROLOGIC: No headache, vertigo, loss of consciousness, or change in strength /sensation. ENDOCRINE: No increased thirst. No abnormal weight change HEMATOLOGIC/LYMPHATIC: No anemia, easy bleeding, or history of blood clots. ALLERGIC/IMMUNOLOGIC: No hives or skin allergy. PE GENERAL: AOx3; no acute distress HEAD: No signs of trauma, NC/AT EYES: PERRLA, EOMI, sclera anicteric, conjunctiva clear ENT: Auricles normal inspection, hearing grossly normal, nares patent, moist mucosa, oropharynx clear without exudates. NECK: Normal ROM, supple, no LAD, JVD, or masses HEART: RRR, normal S1/S2, no murmurs, rubs, or gallops. Peripheral pulses 2+ and equal bilaterally. LUNGS: No distress, speaks full sentences, clear to auscultation bilaterally w/o wheezes ABDOMEN: Soft, nontender. No guarding, no rebound. No masses EXTREMITIES: Normal inspection, Normal range of motion, no edema. NEUROLOGICAL: CNII-XII grossly intact. Normal speech, no focal sensorimotor deficits SKIN: Warm, Dry, normal turgor, no rashes or lesions noted Assessment and Plan 1. HFrEF exacerbation 2. r/o ACS 3. COVID19 Luis Calabrese, PGY1 Emergency Medicine Past History - Medical History Allergies/Adverse Reactions: Allergies Allergy/AdvReac Type Severity Reaction Status Date / Time tomato Allergy Mild Hives Verified 08/01/20 17:03 chlorpheniramine Allergy Verified 08/01/20 17:03 cimetidine Allergy Verified 08/01/20 17:03 codeine [Codeine] Allergy Verified 08/01/20 17:03 ibuprofen Allergy Verified 08/01/20 17:03 latex [Latex] Allergy Verified 08/01/20 17:03 Latex, Natural Rubber Allergy Verified 08/01/20 17:03 pseudoephedrine Allergy Verified 08/01/20 17:03 salmeterol xinafoate Allergy Verified 08/01/20 17:03 [From Advair Diskus] shellfish derived Allergy Verified 08/01/20 17:03 Sulfa (Sulfonamide Allergy Verified 08/01/20 17:03 Antibiotics) [Sulfa(Sulfonamide Antibiotics)] Chocolate Allergy Mild Hives Uncoded 08/01/20 17:03 shrimp Allergy Mild Hives Uncoded 08/01/20 17:03 Home Medications: Ambulatory Orders Insulin Glargine,Hum.rec.anlog [Lantus Solostar PEN -] 20 units SQ AM 08/09/16 Budesonide/Formeterol Fumarate [SYMBICORT 160/4.5mcg -] 2 puff PO BID 10/14/16 Albuterol 2.5/Ipratropium 0.5 [Duoneb -] 1 amp NEB Q6H PRN #90 amp 05/21/19 Levothyroxine [Synthroid -] 75 mcg PO DAILY #30 tablet 05/21/19 Insulin Glargine,Hum.rec.anlog [Lantus Solostar PEN -] 10 units SQ HS 08/13/19 Metoprolol Succinate [Toprol XL -] 25 mg PO DAILY 10/10/19 Apixaban [Eliquis -] 5 mg PO BID 11/02/19 Linaclotide [Linzess] 290 mcg PO DAILY 11/02/19 Sacubitril/Valsartan [Entresto 24 mg-26 mg Tablet] 1 each PO ASDIR 11/02/19 Albuterol 0.083% Nebulizer Jyothi [Ventolin 0.083% Nebulizer Soln -] 1 amp NEB Q4H PRN amp 12/13/19 Spironolactone [Aldactone -] 25 mg PO DAILY tablet 12/13/19 Aspirin Coated [Ecotrin -] 81 mg PO DAILY #30 tablet.ec 12/27/19 Potassium Chloride 10 meq PO DAILY 01/15/20 Pregabalin [Lyrica -] 25 mg PO BID 01/15/20 Tiotropium [place] [Spiriva Respimat] 2 puff IH DAILY #1 mist.inhal 01/15/20 Albuterol 0.083% Nebulizer Jyothi [Ventolin 0.083% Nebulizer Soln -] 1 amp NEB Q4H PRN #0 amp 01/20/20 Furosemide [Lasix -] 20 mg PO DAILY #30 tablet 01/20/20 Montelukast Na [Singulair -] 10 mg PO HS #30 tablet 01/20/20 Pantoprazole Sodium [Protonix -] 40 mg PO DAILY #30 tablet.ec 01/20/20 Potassium Chloride [K-Dur -] 10 meq PO DAILY #30 tablet.er 01/20/20 Furosemide [Lasix -] 20 mg PO DAILY tablet 02/23/20 Ondansetron [Zofran *Odt*] 4 mg SL TID PRN #10 od.tablet 03/04/20 Furosemide [Lasix -] 20 mg PO DAILY tablet 05/28/20 Sacubitril/Valsartan [Entresto 24 mg-26 mg Tablet] 1 tab PO BID #60 tablet 05/28/20 Furosemide [Lasix -] 20 mg PO DAILY tablet 07/11/20 Furosemide [Lasix] 20 mg PO Q2D #30 tablet 07/22/20 Furosemide [Lasix] 40 mg PO Q2D #30 tablet 07/22/20 Ethyl Chloride 100 ml TP QID 10 Days #1 spray 08/01/20 Anemia: Yes Asthma: Yes Cancer: No Cardiac Disorders: Yes ([place] X 2, pacemaker, Afib) CVA: No COPD: Yes CHF: Yes (S/P ICD) DVT: No Dementia: No Diabetes: Yes GI Disorders: Yes (PEPTIC ULCER) Disorders: (CKD) HTN: Yes Hypercholesterolemia: Yes Liver Disease: No Psychiatric Problems: Yes (DEPRESSION) Seizures: No Thyroid Disease: Yes (hypo) - Surgical History Abdominal Surgery: Yes Appendectomy: No Cardiac Surgery: Yes (pacemaker and stents) Cholecystectomy: Yes GI Surgery: Yes (CHOLECYSTECTOMY, HYSTERECTOMY) Lung Surgery: No Neurologic Surgery: No Orthopedic Surgery: Yes (bilateral knee replacement) - Immunization History Immunization Up to Date: No - Psycho-Social/Smoking History Smoking Status: No Smoking History: Never smoked Have you smoked in the past 12 months: No Number of Cigarettes Smoked Daily: 0 ED Treatment Course - LABORATORY CBC & Chemistry Diagram: 09/02/20 21:04 09/02/20 21:04 Medical Decision Making - Medical Decision Making 09/02/20 20:42 60F with PMH of HFrEF and asthma p/w SOB on exertion, orthopnea, and PND w/ recent change in lasix dose and sick contact. Exam unimpressive. -> HFrEF exacerbation workup, ACS r/o CXR: increased cardiomegaly w/o infiltrate EKG: worsened R wave progression compared to previous on 08/01, otherwise similar findings 09/02/20 21:55 BNP elevated higher than previous levels -> correlates to clinical presentation of HF exacerbation Trop 0.31, higher than most recent -> will repeat trop BUN and creatinine wnl -> will give lasix 40mg IV Pt was complaining of nausea, QTc 534 -> due to prolongation, zofran/reglan contraindicated -> given ativan instead 09/02/20 22:15 Pt complaining of abd pain, constipation and has hx/o abdominal surgeries (hysterectomy and cholecystectomy) -> will send for CT abd/pelvis 09/02/20 22:35 Will admit pt to telemetry, and spoke with Dr. Lewis about the plan. Pending CTA and CT abd/pelvis. Signed out to night team. Discharge - Discharge Information Problems reviewed: Yes Clinical Impression/Diagnosis: CHF exacerbation Qualifiers: Heart failure type: unspecified Qualified Code(s): I50.9 - Heart failure, unspecified Condition: Fair - Admission Yes - Follow up/Referral - Patient Discharge Instructions - Post Discharge Activity
--- OUTSIDE RECORDS SUMMARY | 2020-09-02 20:12 | XMS ---
:1960 Author Organization [facility] Care Team Providers Name Role Phone ETHEL JAIRON JAIRON Unavailable Unavailable MUSIAL, ERNA Unavailable Unavailable ZOROASTRIAN, HUMAYUN Unavailable Unavailable EMERGENCY SERVICE, X Unavailable Unavailable TRISTA SANDRA L. Unavailable Unavailable KRISTI VINSON Unavailable Unavailable THEODORE MILLS Unavailable Unavailable MELISSA SABINA, SABINA Unavailable Unavailable CARLITOS STERLING Unavailable Unavailable COCO SHELTON Unavailable Unavailable Re-disclosure Warning The records that you are about to access may contain information from federally- assisted alcohol or drug abuse programs. If such information is present, then the following federally mandated warning applies: This information has been disclosed to you from records protected by federal confidentiality rules (42 CFR part 2). The federal rules prohibit you from making any further disclosure of this information unless further disclosure is expressly permitted by the written consent of the person to whom it pertains or as otherwise permitted by 42 CFR part 2. A general authorization for the release of medical or other information is NOT sufficient for this purpose. The Federal rules restrict any use of the information to criminally investigate or prosecute any alcohol or drug abuse patient.The records that you are about to access may contain highly sensitive health information, the redisclosure of which is protected by Article 27-F of the [facility] Public Health law. If you continue you may haveaccess to information: Regarding HIV / AIDS; Provided by facilities licensed or operated by the [facility] Office of Mental Health; or Provided by the [facility] Office for People With Developmental Disabilities. If such information is present, then the following [facility] mandated warning applies: This information has been disclosed to you from confidential records which are protected by state law. State law prohibits you from making any further disclosure of this information without the specific written consent of the person to whom it pertains, or as otherwise permitted by law. Any unauthorized further disclosure in violation of state law may result in a fine or chcf sentence or both. A general authorization for the release of medical or other information is NOT sufficient authorization for further disclosure. Allergies and Adverse Reactions Type Description Substance Reaction Status Data Source(s ) Drug allergy Unable to Assess Unable to Assess [facility] Drug allergy SULFA SULFA [facility] Drug allergy Pseudoephedrine Pseudoephedrine [facility] Drug allergy Penicillin G Penicillin G [facility] Drug allergy NSAIDS NSAIDS [facility] Drug allergy Codeine Codeine [facility] Drug allergy Cimetidine Cimetidine [facility] Drug allergy Chlorpheniramine Chlorpheniramine [facility] Encounters Encounter Providers Location Date Indications Data Source(s ) Outpatient Attender: NIKITA 05/04/2020 G47.33 [facility] OLEGAdmitter: 06:00:00 AM Health Car e NIKITA [employer] OLEGReferrer: COCO SHELTON G47.33 Outpatient Attender: KAREL 05/01/2020 06:45:00 [facility] [place] Z03.818 Outpatient Attender: JAIRON Latif 01/08/2020 08:53:00 [facility] MARSHALANAdmitter: JAIRON DE LA OReferrer: JAIRON DE LA O Outpatient Attender: NIKITA 12/21/2019 06:00:00 R06.02 [facility] [address] OLEGAdmitter: RAHEL SHELTON [facility] OLEGReferrer: Rickey SHELTON COCO R06.02 Outpatient Attender: ZOROASTRIAN, 10/26/2019 I27.0 I42.8 [facility]: ZOROASTRIAN, 12:54:00 PM [facility] HUMAYUNReferrer: YANET [place] ERNA I27.0 I42.8 Inpatient 10/21/2019 08:07:00 AM [facility] Inpatient 10/21/2019 08:07:00 AM We [facility] Outpatient Attender: TRISTA, 10/13/2019 06:00:00 AM I42.8 [facility] [address] SANDRA LegerAdmitter: [facility] [place] SANDRA WESTONReferrer: SANDRA WESTON I42.8 Inpatient Attender: SANDRA WESTON 10/12/2019 08:46:00 [facility] - 10/15/2019 [facility] [place] 05:41:00 PM EST ADHF Patient admitted. Emergency Attender: SANDRA WESTON 10/12/2019 07:06:00 PM [facility]ERGENCY EST [facility] SERVICE, XAdmitter: SANDRA WESTON PAIN Outpatient Attender: ZOROASTRIAN, 10/05/2019 11:05:00 [facility] HUMAYUNReferrer: SANDRA WESTON Outpatient Attender: SABINA Latif 04/09/2019 01:50:00 [facility] DANUTAAdmitter: PM EDT Center SABINA PRRYAN DANUTAReferrer: CARLITOS Skaggs Outpatient Attender: THEODORE Latif 02/04/2019 07:08:00 [facility] THEODOREAdmitter: THEODORE WHITAKER AM EST Center THEODOREReferrer: THEODORE JAIMES Medications Medication Brand Start Product Dose Route Administrative Pharmacy [facility] Indications Reaction Description Data Name Date Form Instructions Instructions Source(s) Insulin Insuli complet [facility] Glargine n ed r [facility] 100 UNT/ML Glargi Health Injectable ne Care Solution [100 Corporatio Insulin unit/m n Glargine L [100 Soluti unit/mL on]: Solution]: 20 20 Unit Unit Subcutaneou Subcut s DAILY IN aneous MORNING DAILY IN MORNIN G 120 ACTUAT Symbic complet [facility] Budesonide ort [facility] 0.16 (Budes Health MG/ACTUAT / onide- Care formoterol Formot Corpora marah fumarate marina) n 0.0045 [160 MG/ACTUAT mcg-4. Metered 5 Dose mcg/ac Inhaler tuatio Symbicort n (Budesonide INHALE -Formoterol R]: 2 ) [160 PUFF mcg-4.5 Inhala mcg/actuati tion 2 on TIMES INHALER]: 2 A DAY PUFF Inhalation 2 TIMES A DAY Albuterol [id number] complet [facility] heste Sulfate [90 090 [facility] Health INHALER]: 2 Care PUFF Corporatio Inhalation n EVERY 4 HOURS PRN sob sacubitril Entres complet [facility] 24 MG / to [facility] valsartan (sacub Health 26 MG Oral itril- Care Tablet valsar Corporatio Entresto strange) n (sacubitril [24 -valsartan) mg-26 [24 mg-26 mg mg Tablet]: Tablet 1 Tablet ]: 1 Oral Tablet 10A-10P Oral 10A-10 P Insulin Insuli complet [facility] Lispro 100 n [facility] UNT/ML Lispro Health Injectable [100 Care Solution unit/m Corporati o Insulin L n Lispro [100 Soluti unit/mL on]: Solution]: 20 20 Unit Unit Subcutaneou Subcut s DAILY aneous DAILY Spironolact Spiron complet [place] [facility] one 25 MG olacto [facility] Oral Tablet ne [25 Health Spironolact mg Care one [25 mg Tablet Corpora marah Tablet]: 1 ]: 1 n Tablet Oral Tablet DAILY Oral DAILY Levothyroxi Levoth complet [place] [facility] ne Sodium yroxin [facility] 0.075 MG e [75 Health Oral Tablet mcg Care Levothyroxi Tablet Corpor atio ne [75 mcg ]: 1 n Tablet]: 1 Tablet Tablet Oral Oral DAILY DAILY Discharge complet [facility] Medications [facility] are Health unavailable Care . Corporatio n atorvastati Atorva complet [place] [facility] n 40 MG statin ed [facility] Oral Tablet [40 mg Health Atorvastati Tablet Care n [40 mg ]: 1 Corporatio Tablet]: 1 Tablet n Tablet Oral Oral BEDTIME BEDTIM E Furosemide Furose complet [place] [facility] 40 MG Oral mide ed [facility] Tablet [40 mg Health Furosemide Tablet Care [40 mg ]: 1 Corporatio Tablet]: 1 Tablet n Tablet Oral Oral EVERY OTHER EVERY DAY OTHER DAY Insulin Insuli complet [place] [facility] Glargine n ed [facility] 100 UNT/ML Glargi Health Injectable ne Care Solution [100 Corporatio Insulin unit/m n Glargine L [100 Soluti unit/mL on]: Solution]: 10 10 Unit Unit Subcutaneou Subcut s DAILY IN aneous EVENING DAILY IN EVENIN G Linaclotide complet [facility] heste (Free Text ed [facility] Medication) Health [290]: 1 Care Tablet Oral Corporat io EVERY OTHER n DAY gabapentin Gabape [facility] MG Oral ntin ed [facility] Capsule [300 Health Gabapentin mg Care [300 mg Capsul Corporatio Capsule]: 1 e]: 1 n Capsule Capsul Oral 3 e Oral TIMES A DAY 3 TIMES A DAY Docusate Docusa complet [facility] brennan Sodium 100 te ed [facility] MG Oral Sodium Health Tablet [100 Care Docusate mg Corporatio Sodium [100 Tablet n mg Tablet]: ]: 1 1 Tablet Tablet Oral 2 Oral 2 TIMES A DAY TIMES A DAY duloxetine Duloxe complet [place] 30 MG grey ed [facility] Delayed [30 Health Release mg]: 1 Care Oral Capsul Corporatio Capsule e Oral n Duloxetine DAILY [30 mg]: 1 Capsule Oral DAILY Metoclopram Metocl complet [place] [facility] rich 5 MG oprami ed [facility] Oral Tablet de [5 Health Metoclopram mg Care rich [5 mg Tablet Corporat io Tablet]: 1 ]: 1 n Tablet Oral Tablet 2 TIMES A Oral 2 DAY TIMES A DAY apixaban 5 Eliqui complet [place] MG Oral s [5 ed [facility] Tablet mg Health Eliquis [5 Tablet Care mg Tablet]: ]: 1 Corporat io 1 Tablet Tablet n Oral 2 Oral 2 TIMES A DAY TIMES A DAY dexlansopra Dexlan complet [place] [facility] zole 60 MG sopraz ed r Count y Delayed ole Health Release [60 Care Oral mg]: 1 Corporatio Capsule Capsul n Dexlansopra e Oral zole [60 DAILY mg]: 1 Capsule Oral DAILY 24 HR Metopr complet [place] e metoprolol olol ed [facility] succinate XL [25 Health 25 MG mg]: 1 Care Extended Tablet Corporati o Release Oral n Oral Tablet DAILY Metoprolol XL [25 mg]: 1 Tablet Oral DAILY Linagliptin complet [facility] heste -Metformin ed [facility] (Free Text Health Medication) Care [2.5-1000]: Corporat io 1 Tablet n Oral 2 TIMES A DAY Insurance Providers Payer name Policy type Policy ID Covered Covered green party's Policy P annmarie / Coverage green party ID relationship to Are[place] Inf ormation type arellano HIP MEDICARE [id number] SP [id number] VIP 1 MEDICAID [id number] SP [id number] MEDICAID [id number] SP [id number] KENDAL MEDICARE [id number] SP [id number] HIP MEDICARE [id number] SP [id number] VIP 1 KENDAL MEDICARE [id number] SP [id number] MEDICARE [id number] SP [id number] 8 MEDICARE [id number] SP [id number] A MEDICARE [id number] SP [id number] KENDAL MEDICARE [id number] SP [id number] BLUE CROSS [id number] SP [id number] SENIOR PLAN 44 O [id number] 01 [id number] HIP O [id number] 01 [id number] W [id number] EMPIRE [id number] [facility] MEDICARE [id number] PART B [id number] [facility] [id number] HIP MEDICARE [id number] SP [id number] M VIP MEDICARE [id number] SP [id number] A MEDIBLUE OP O [id number] MEDICARE [id number] SP [id number] A MEDICARE [id number] SP [id number] M [id number] A Problems, Conditions, and Diagnoses Code Display Name Description Problem Type Effective Data Sour ce(s) Dates E66.01 Morbid (severe) MORBID (SEVERE) Diagnosis 05/04/2020 [place] obesity due to OBESITY DUE TO 06:00:00 AM Count y Health excess calories EXCESS CALORIES EDT Care [place] G47.33 Obstructive sleep OBSTRUCTIVE SLEEP Diagnosis 05/04/2020 [place] apnea (adult) APNEA (ADULT) 06:00:00 AM [facility] (pediatric) (PEDIATRIC) EDT Care [place] M47.9 Spondylosis, SPONDYLOSIS, Diagnosis 01/08/2020 [facility] unspecified UNSPECIFIED 08:53:00 AM Medical [facility] EST R06.02 Shortness of breath SHORTNESS OF BREATH Diagnosis 020 [place] 06:00:00 AM [facility] [employer] J44.9 Chronic obstructive CHRONIC OBSTRUCTIVE Diagnosis [place] pulmonary disease, PULMONARY DISEASE, 12:54:00 PM [facility] unspecified UNSPECIFIED EST Care [place] I50.23 Acute on chronic ACUTE ON CHRONIC Diagnosis 10/26/2019 [facility] systolic SYSTOLIC 12:54:00 PM [facility] (congestive) heart (CONGESTIVE) HEART [facility] failure FAILURE Corporation I42.8 Other OTHER Diagnosis 10/26/2019 [place] cardiomyopathies CARDIOMYOPATHIES 12:54:00 PM [facility] EST Care [place] I27.0 Primary pulmonary PRIMARY PULMONARY Diagnosis 10/26/2019 [place] hypertension HYPERTENSION 12:54:00 PM [facility] EST R&V Z79.01 snf (current) SEMICONDUCTOR PACKAGES PLATEMAKER (CURRENT) Diagnosis 019 [place] use of USE OF 05:41:00 PM [facility] ANTICOAGULANTS EST Care [place] Z91.040 Latex allergy status LATEX ALLERGY Diagnosis 10/15/2019 [facility] STATUS 05:41:00 PM [facility] [employer] Z88.8 Allergy status to ALLERGY STATUS TO Diagnosis 10/15/2019 [place] other drugs, OTH DRUG/MEDS/BIOL 05:41:00 PM [facility] medicaments and SUBST STATUS [facility] biological [place] substances status Z88.2 Allergy status to ALLERGY STATUS TO Diagnosis 10/15/2019 [place] sulfonamides status SULFONAMIDES STATUS 05:41:0 0 PM [facility] [employer] Z88.5 Allergy status to ALLERGY STATUS TO Diagnosis 10/15/2019 [place] narcotic agent NARCOTIC AGENT 05:41:00 PM Count y Health status STATUS EST Care [place] Z79.4 snf (current) [facility] (CURRENT) Diagnosis 019 [place] use of insulin USE OF INSULIN 05:41:00 PM Count y Health EST Care Corporation 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 cardiac CARDIAC Corporation defibrillator DEFIBRILLATOR Z95.5 Presence of coronary PRESENCE OF Diagnosis 10/15/2019 [facility] [place] angioplasty implant CORONARY 05:41:00 PM [facility] and graft ANGIOPLASTY IMPLANT EST Care AND GRAFT Corporation I48.0 Paroxysmal atrial PAROXYSMAL ATRIAL Diagnosis 10/15/2019 [place] fibrillation FIBRILLATION 05:41:00 PM [facility] EST Care [place] E11.40 Type 2 diabetes TYPE 2 DIABETES Diagnosis 10/15/2019 [place] mellitus with MELLITUS WITH 05:41:00 PM [facility] diabetic neuropathy, DIABETIC EST Care unspecified NEUROPATHY, UNSP Corpora tion E11.22 Type 2 diabetes TYPE 2 DIABETES Diagnosis 10/15/2019 [place] mellitus with MELLITUS W DIABETIC 05:41:00 PM [facility] [employer] diabetic chronic CHRONIC KIDNEY EST Care kidney disease DISEASE Corporatio n N18.9 Chronic kidney CHRONIC KIDNEY Diagnosis 10/15/2019 [facility] clay disease, unspecified DISEASE, 05:41:00 PM [facility] UNSPECIFIED EST Care Corporation I25.10 Atherosclerotic ATHSCL HEART Diagnosis 10/15/2019 [facility] heart disease of DISEASE OF [place] 05:41:00 PM [facility] [place] coronary CORONARY ARTERY W/O EST [facility] artery without ANG PCTRS Corporatio n angina pectoris I27.23 Pulmonary PULMONARY Diagnosis 10/15/2019 [place] hypertension due to HYPERTENSION DUE TO 05:41:0 0 PM [facility] lung diseases and LUNG DISEASES AND EST Care hypoxia [employer] Z68.41 Body mass index BODY MASS INDEX Diagnosis 10/15/2019 [place] (BMI) 40.0-44.9, (BMI) 40.0-44.9, 05:41:00 PM C LIA adult ADULT EST Care Corporation I13.0 Hypertensive heart HYP HRT and CHR Diagnosis 10/12/2019 [place] and chronic kidney KDNY DIS W HRT FAIL 08:46:00 PM [facility] with heart AND STG 1-4/UNSP EST Care failure and stage 1 CHR KDNY Corpo ration through stage 4 chronic kidney disease, or unspecified chronic kidney disease M62.830 Muscle spasm of back MUSCLE SPASM OF Diagnosis 04/09/2019 [facility] 01:50:00 PM [facility] EDT M54.5 Low back pain LOW BACK PAIN Diagnosis 04/09/2019 [facility] 01:50:00 PM Medical Cent[facility] r EDT Z12.31 Encounter for ENCNTR SCREEN Diagnosis 02/04/2019 [facility] screening mammogram MAMMOGRAM FOR 07:08:00 AM [facility] for malignant MALIGNANT NEOPLASM EST neoplasm of breast OF BREAST Results ID Date Data Source [id number] 07/20/2020 04:30:00 PM EDT [facility] Name Value Range Interpretation Description Data Sup porting Code Source(s) Document(s ) SARS [facility] coronavirus 2 RNA This lab was ordered by [facility] and reported by [facility]. ID Date Data Source [id number] 07/05/2020 08:10:00 PM EDT [facility] Name Value Range Interpretation Description Data Sup porting Code Source(s) Document(s ) SARS [facility] coronavirus 2 RNA This lab was ordered by [facility] and reported by [facility]. ID Date Data Source [id number] 05/23/2020 09:03:00 PM EDT [facility] Name Value Range Interpretation Description Data Sup porting Code Source(s) Document(s ) SARS [facility] CORONAVIRUS 2 RNA This lab was ordered by [facility] and reported by [facility]. ID Date Data Source [id number] 02/20/2020 01:00:00 PM EDT [facility] Name Value Range Interpretation Code Description Data Riya rce(s) Supporting Document(s ) 2019-nCoV [facility] N XXX Ql MITCH N2 This lab was ordered by [facility] and reported by [facility]. ID Date Data Source [id number] 10/15/2019 06:11:00 AM EST [facility] [id number] Corporation Name Value Range Interpretation Description Data Sup porting Code Source(s) Document(s ) Leukocytes 7.8 k/mm3 4.8-10 <td> 10/15/2019 [place] [#/volume] in .8 06:11</td><td> [facility] Blood by k/mm3 WBC </td><td> Health Care Automated count Corporation 7.8
(4.8-10.8) k/mm3 </td> Hemoglobin 11.1 g/dL 12.0-1 <td> 10/15/2019 [place] [Mass/volume] 6.0 06:11</td><td> County in Blood g/dL [facility] </td><td><[employer] raph styleCode="Bold "> 11.1 L </paragraph>
(12.0-16.0) g/dL </td> Erythrocytes 4.22 m/mm3 3.90-5 <td> 10/15/2019 [facility] [#/volume] in .20 06:11</td><td> [facility] Blood m/mm3 RBC </td><td> Health Care [place] 4.22
(3.90-5.20) m/mm3 </td> Hematocrit 37.3 % 37.0-4 <td> 10/15/2019 [place] [Volume 7.0 % 06:11</td><td> [facility] Fraction] of HCT </td><td> Health Care Blood by [place] Automated count 37.3
(37.0-47.0) % </td> Erythrocyte 26.3 pg 27.0-3 <td> 10/15/2019 [place] mean 1.5 pg 06:11</td><td> [facility] corpuscular [facility] hemoglobin </td><td><marti [place] [Entitic mass] raph by Automated styleCode="Bold count "> 26.3 L </paragraph>
(27.0-31.5) pg </td> Erythrocyte 88.4 fL 81.0-9 <td> 10/15/2019 [place] mean 9.0 fL 06:11</td><td> County corpuscular MCV </td><td> Health Care volume [[employer] volume] by 88.4 Automated count
(81.0-99.0) fL </td> Erythrocyte 29.8 % 32.0-3 <td> 10/15/2019 [place] mean 6.0 % 06:11</td><td> [facility] corpuscular [facility] hemoglobin </td><td><[employer] concentration raph [Mass/volume] styleCode="Bold in Blood from "> Fetus by 29.8 Automated count L </paragraph>
(32.0-36.0) % </td> Platelet mean 11.3 fL 9.8-12 <td> 10/15/2019 [facility] r volume [Entitic .8 fL 06:11</td><td> County volume] in MPV </td><td> Health Care Blood by Corporation Automated count 11.3
(9.8-12.8) fL </td> Erythrocyte 14.6 % 11.5-1 <td> 10/15/2019 [place] distribution 4.5 % 06:11</td><td> County width [Entitic RDW Health Care volume] by </td><td><[employer] Automated count raph styleCode="Bold "> 14.6 H </paragraph>
(11.5-14.5) % </td> Lymphocytes 14.3 % 17.0-5 <td> 10/12/2019 [place] [#/volume] in 0.0 % 21:32</td><td> County Blood by Lymphocytes Health Care Automated count </td><td><[employer] Corpor[employer] ion raph styleCode="Bold "> 14.3 L </paragraph>
(17.0-50.0) % </td> Platelets 271 k/mm3 160-41 <td> 10/15/2019 [place] [#/volume] in 0 06:11</td><td> County Blood by k/mm3 Platelet Count Health Care Automated count </td><td> Corporation 271
(160-410) k/mm3 </td> Basophils+Eosin 0.0 % 0.0-5. <td> 10/12/2019 [facility] ophils+Monocyte 0 % 21:32</td><td> County s [#/volume] in Eosinophils Health Care Blood by </td><td> [place] Automated count 0.0
(0.0-5.0) % </td> Monocytes/Leuko 7.9 % 0.0-11 <td> 10/12/2019 [facility] cytes [Pure .0 % 21:32</td><td> County number Monocytes. Health Care fraction] in </td><td> [facility] Blood by Automated count 7.9
(0.0-11.0) % </td> Basophils 0.1 % 0.0-2. <td> 10/12/2019 [place] [#/volume] in 0 % 21:32</td><td> [facility] Blood by Basophils [facility] Automated count </td><td> [place] 0.1
(0.0-2.0) % </td> Immature 0.9 % 0.0-0. <td> 10/12/2019 [place] granulocytes/10 5 % 21:32</td><td> [facility] 0 leukocytes in IG% Health Care Blood by </td><td>[employer] Automated count raph styleCode="Bold "> 0.9 H </paragraph>
(0.0-0.5) %
The IG fraction represents metamyelocytes, myelocytes and/or
promyelocytes and is only reported as part of the automated
differential when found at a percentage of less than 6.
If higher than 6%, a manual differential will be performed.

(0.0-0.5) % </td> Sodium 135 mEq/L 135-14 <td> 10/15/2019 [place] [Moles/volume] 5 06:11</td><td> County in Serum or mEq/L Sodium-Serum Health Care Plasma </td><td> [place] 135
(135-145) mEq/L </td> Neutrophils [#] 76.8 % 40.0-7 <td> 10/12/[address] [facility] [address] in Body fluid 6.0 % 21:32</td><td> County by Manual count Neutrophils Health Care </td><td><[employer] raph styleCode="Bold "> 76.8 H </paragraph>
(40.0-76.0) % </td> Glucose 157 mg/dL 70-105 <td> 10/15/2019 [place] [Mass/volume] mg/dL 06:11</td><td> County in Blood Glucose-Serum Health Care </td><td><[employer] raph styleCode="Bold "> 157 H </paragraph>
(70-105) mg/dL </td> Potassium 3.9 mEq/L 3.5-5. <td> 10/15/2019 [place] [Moles/volume] 1 06:11</td><td> County in Serum or mEq/L Potassium-Serum Health Care Plasma </td><td> [place] 3.9
(3.5-5.1) mEq/L </td> Chloride 101 mEq/L 98-107 <td> 10/15/2019 [place] [Moles/volume] mEq/L 06:11</td><td> County in Serum or Chloride Health Care Plasma </td><td> [place] 101
(98-107) mEq/L </td> Urea nitrogen 19 mg/dL 6-22 <td> [facility] [Mass/volume] mg/dL 06:11</td><td> County in Blood BUN </td><td> Health Care [place] 19
(6-22) mg/dL </td> Carbon dioxide, 26 mEq/L 22-30 <td> 10/15/[address] [facility] [address] total mEq/L 06:11</td><td> County [Moles/volume] CO2 </td><td> Health Car e in Serum or Corporation Plasma 26
(22-30) mEq/L </td> Creatinine 1.14 mg/dL 0.57-1 <td> 10/15/2019 [place] [Moles/volume] .11 06:11</td><td> County in Serum or mg/dL Creatinine. Health Care Plasma </td><td><marti Corporation raph styleCode="Bold "> 1.14 H </paragraph>
(0.57-1.11) mg/dL </td> Aspartate 9 U/L 4-35 <td> 10/15/2019 [place] aminotransferas U/L 06:11</td><td> County e [Enzymatic AST (SGOT) Health Care activity/volume </td><td> [facility] [place] ] in Serum or Plasma 9
(4-35) U/L </td> Alanine 6 U/L 6-55 <td> 10/15/2019 [place] aminotransferas U/L 06:11</td><td> County e [Enzymatic ALT (SGPT) Health Care activity/volume </td><td> [place] ] in Serum or Plasma 6
(6-55) U/L </td> Bilirubin.total 0.3 mg/dL 0.2-1. <td> 10/15/2019 [facility] [Mass/volume] 3 06:11</td><td> [facility] in Blood mg/dL Bilirubin - [facility] </td><td> 0.3
(0.2-1.3) mg/dL </td> Proteins - 6.8 g/dL 6.4-8. <td> 10/15/2019 [facility] Total 3 g/dL 06:11</td><td> [facility] Proteins - [facility] </td><td> 6.8
(6.4-8.3) g/dL </td> Calcium 8.9 mg/dL 8.6-10 <td> 10/15/2019 [facility] [Mass/volume] .2 06:11</td><td> [facility] in Blood mg/dL Calcium Health Care </td><td> [facility] 8.9
(8.6-10.2) mg/dL </td> Albumin 3.7 g/dL 3.4-4. <td> 10/15/2019 [facility] [Mass/volume] 8 g/dL 06:11</td><td> [facility] in Serum or Albumin Health Care Plasma </td><td> [facility] 3.7
(3.4-4.8) g/dL </td> Globulin 3.1 gm/dL 2.9-4. <td> 10/15/2019 [facility] [Mass/volume] 0 06:11</td><td> [facility] in Serum gm/dL Globulin Health Care </td><td> [facility] 3.1
(2.9-4.0) gm/dL </td> Anion gap in 8 mEq/L 7-13 <td> 10/15/2019 [facility] Serum or Plasma mEq/L 06:11</td><td> [facility] Anion Gap Health Care </td><td> [facility] 8
(7-13) mEq/L </td> Icteric index Non <td> 10/15/2019 [facility] r of Serum or Icteric 06:11</td><td> [facility] Plasma Icteric Index Health [facility] </td><td> [facility] Non Icteric
</td> Hemolysis index No <td> 10/15/2019 [facility] of Serum or Hemolysis 06:11</td><td> [facility] Plasma Hemolysis Index Health [facility] </td><td> [facility] No Hemolysis
</td> Lipemic index No Lipemia <td> 10/15/2019 [facility] er of Serum or 06:11</td><td> [facility] Plasma Lipemia Index Health Care </td><td> [facility] No Lipemia
</td> Phosphate 3.1 mg/dL 2.3-4. <td> 10/15/2019 [facility] [Mass/volume] 7 06:11</td><td> [facility] in Serum or mg/dL Inorganic Health Care Plasma Phosphorus [facility] </td><td> 3.1
(2.3-4.7) mg/dL </td> Prothrombin 11.1 secs 9.8-12 <td> 10/15/2019 [facility] time (PT) .0 06:11</td><td> [facility] secs Prothrombin Health Care Time. [facility] </td><td> 11.1
(9.8-12.0) secs </td> aPTT panel - 26.3 secs 25.0-3 <td> 10/15/2019 [facility] Platelet poor 2.0 06:11</td><td> [facility] plasma secs Partial Health Care Thromboplastin [facility] Time </td><td> 26.3
(25.0-32.0) secs </td> Magnesium 1.9 mg/dL 1.6-2. <td> 10/15/2019 [facility] [Mass/volume] 6 06:11</td><td> County in Serum or mg/dL Magnesium Level Health Care Plasma </td><td> [facility] 1.9
(1.6-2.6) mg/dL </td> Cholesterol in 50 mg/dL >60 <td> 10/14/2019 [facility] er HDL mg/dL 06:45</td><td> [facility] [Mass/volume] HDL Cholesterol Health Car e in Serum or </td><td> [facility] Plasma 50
(>60) mg/dL </td> Cholesterol 179 mg/dL 125-24 <td> 10/14/2019 [facility] [Moles/volume] 0 06:45</td><td> County in Serum or mg/dL Cholesterol Health Care Plasma </td><td> [facility] 179
(125-240) mg/dL </td> Glucose 167 mg/dL 70-105 <td> 10/15/2019 [facility] [Mass/volume] mg/dL 11:45</td><td> [facility] in Capillary Glucose - Health Care blood by Finger Stick [facility] Glucometer </td><td><marti raph styleCode="Bold "> 167 H </paragraph>
(70-105) mg/dL </td> Triglyceride 173 mg/dL 30-200 <td> 10/14/2019 [facility] [Mass/volume] mg/dL 06:45</td><td> [facility] in Serum or Triglyceride Health Care Plasma </td><td> [facility] 173
(30-200) mg/dL </td> Cholesterol in 94 mg/dL <150 <td> 10/14/2019 [facility] LDL mg/dL 06:45</td><td> [facility] [Mass/volume] LDL Cholesterol Health Car e in Serum or </td><td> [facility] Plasma 94
(<150) mg/dL </td> ID Date Data Source [id number] 10/14/2019 01:50:00 PM EST [facility] [id number] [facility] Name Value Range Interpretation Description Data Sup porting Code Source(s) Document(s ) Echo 2D [id number] [facility] <td> 10/14/2019 [facility] M-Mode [id number] 13:50</td><td> [facility] Complete [id number] Echo 2D M-Mode [facility] Care (TTE) Non-Invasive Complete (TTE) [facility] Cardiology </td><td> Laboratory [id number] Advanced
Physician [facility]
[id number] [place]
[address] Phone [phone] Non-Invasive Adult
Echocardiogram Cardiology Report Name:
SELINA BROWER Laboratory
Study Date: Advanced 10/14/2019
01:50 PM MRN: Physician [id number]
[facility], [facility] BP: 124/96
mmHg : [address]
Gender: [place], [place] Female Age:
59 yrs [address]
Height: 66 Phone [phone] in Account
Number: [phone] Fax [phone]
([phone]) Weight: 253 lb [phone] BSA: 2.2 m2
Patient Adult Location: 5NE Echocardiogram Reason For Report Study:
CARDIOMYOPATHY Name: Malik BROWER Physician: IVY HUNTER Study Date: Performed By: 10/14/2019 Jentzen, 01:50 PM Lakisha
Interpretation Summary The left ventricle BP: is severely 124/96 mmHg dilated.
There is normal : left 1960 ventricular wall thickness. Gender: Left Female ventricular
systolic Age: 59 yrs function is severely reduced. Height: 66 in Ejection
Fraction is Account 20-25%. There Number: is severe [id number] global hypokinesis of Weight: 253 lb the left
ventricle. BSA: 2.2 m2 The right ventricle is
normal in size. Patient ICD lead Location: 5NE visualized in
the right Reason For ventricle. Study: Right CARDIOMYOPATHY ventricular systolic

function is Ordering reduced. Physician: Indexed left IVY HUNTER atrial volume is moderately
increased. Performed By: Trivial aortic Jaidenen, valve Lakisha regurgitation.

Mild thickening of Interpretation the mitral Summary valve leaflets.
There is The left tethering of ventricle is the mitral severely valve leaflets. dilated. Mild to
moderate mitral There is normal valve left regurgitation. ventricular The wall thickness. regurgitant jet is posteriorly
Left directed. ventricular Mild tricuspid systolic valve function is regurgitation. severely Estimated reduced. pulmonary
artery systolic Ejection pressure is Fraction is mildly elevated 20-25%. at 42mmHg.
There is no There is severe pericardial global effusion. hypokinesis of ICD-10 the left CARDIOMYOPATHY ventricle. - I42.8.
Procedure A The right complete ventricle is two-dimensional normal in size. transthoracic echocardiogram
ICD was performed lead visualized (2D, M-mode, in the right spectral and ventricle. color flow
Doppler). Right (29838). Study ventricular quality is systolic good. A function is Definity reduced. contrast
injection was Indexed left performed to atrial volume opacify the is moderately left ventricle. increased. Left
Ventricle The Trivial aortic left ventricle valve is severely regurgitation. dilated. There
is normal left Mild ventricular thickening of wall thickness. the mitral Left valve leaflets. ventricular systolic
There function is is tethering of severely the mitral reduced. valve leaflets. Ejection Fraction is
Mild 20-25%. There to moderate is severe mitral valve global regurgitation. hypokinesis of
the left The ventricle. regurgitant jet Right is posteriorly Ventricle The directed. right ventricle
is normal in Mild tricuspid size. ICD lead valve visualized in regurgitation. the right
ventricle. Estimated Right pulmonary ventricular artery systolic systolic pressure is function is mildly elevated reduced. at 42mmHg. Left Atrium
Indexed left There is no atrial volume pericardial is moderately effusion. increased.

Right Atrium ICD-10 Normal right
atrial size. CARDIOMYOPATHY Aortic Valve - I42.8. The aortic

valve is Procedure trileaflet.
Normal A complete thickness two-dimensional aortic valve transthoracic leaflets. echocardiogram There is no was performed aortic (2D, stenosis.
Trivial aortic M-mode, valve spectral and regurgitation. color flow Mitral Doppler). Valve Mild (99611). Study thickening of quality is the mitral good. A valve leaflets.
There is Definity tethering of contrast the mitral injection was valve leaflets. performed to There is no opacify the mitral valve left ventricle. stenosis. Mild to moderate

mitral valve Left Ventricle regurgitation.
The regurgitant The left jet is ventricle is posteriorly severely directed. dilated. There Tricuspid Valve is normal left Normal ventricular thickness
tricuspid valve wall leaflets. There thickness. Left is no tricuspid ventricular stenosis. systolic Mild tricuspid function is valve severely regurgitation. reduced. Pulmonic
Valve The Ejection pulmonic valve Fraction is is poorly 20-25%. There visualized. is severe There is no global pulmonic valve hypokinesis of stenosis. the left Trivial
pulmonic valve ventricle. regurgitation. Aorta The

aortic root is Right normal in size. Ventricle The visualized
area of The right ascending aorta ventricle is is normal in normal in size. size. The ICD lead visualized area visualized in of aortic arch the right is normal in
size. ventricle. Pulmonary Right Artery ventricular Estimated systolic pulmonary function is artery systolic reduced. pressure is

mildly elevated Left Atrium at 42mmHg.
Venous The Indexed inferior vena left atrial cava is normal volume is in size and moderately collapses increased. normally with respiration,

suggestive of Right Atrium normal right
atrial pressure Normal right (3 mmHg). atrial size. Pericardium There is no

pericardial Aortic Valve effusion.
MMode/2D The aortic Measurements & valve is Calculations trileaflet. IVSd: 0.83 cm Normal thickness LVIDd: 6.3 cm aortic valve LV mass(C)d: leaflets. 242.9 grams
LVIDs: 5.8 cm There is no LV mass(C)dI: aortic 109.9 grams/m2 stenosis. LVPWd: 1.0 cm Trivial aortic valve regurgitation.

__ Ao root Mitral Valve diam: 3.0 cm
Asc Aorta Mild diam: Left thickening of atrial volume the mitral (2c): LA valve leaflets. dimension: 4.7 There is cm 3.2 tethering of cm the 109.0 ml Ao
arch diam: mitral valve Left atrial leaflets. There volume (4c): is no mitral 2.6 cm valve stenosis. 78.9 ml Mild to moderate
mitral valve regurgitation. _ RV mid The regurgitant diameter: Left jet is atrial volume posteriorly index RA area directed. (4c): 16.5 cm2

3.8 cm Tricuspid (2c): 49.3 Valve ml/m2
Normal thickness tricuspid valve leaflets. There _ Left is no tricuspid atrial volume stenosis. index (4c):
35.7 ml/m2 Mild tricuspid Doppler valve Measurements & regurgitation. Calculations MV E max vibha:

MV dec Pulmonic time: 0.18 sec Valve Lat E'
The vibha: 105.0 pulmonic valve cm/sec is poorly visualized. There is no 9.5 cm/sec MV pulmonic valve A max vibha:
43.5 cm/sec stenosis. Trivial pulmonic valve regurgitation. __ Med E'

vibha: Aorta E/E' Lateral:
The 11.1 aortic root is AV v max: normal in size. 4.1 cm/sec The visualized E/E' area of Medial: 25.9 ascending aorta 126.0 cm/sec AV max
is P.3 mmHg normal in size. The visualized area of aortic arch is normal in size.

_ LVOT max Pulmonary P.7 mmHg MR Artery v mean: 302.4
cm/sec Estimated PA max P.9 pulmonary mmHg LVOT v artery systolic max: 95.6 pressure is cm/sec LVOT mildly elevated VTI: 15.1 cm at 42mmHg.

Venous
The _ TR v inferior vena max: cava is normal Right atrial in size and pressure: 3.0 collapses mmHgRV S vibha: normally with 6.4 cm/sec
313.8 cm/sec respiration, suggestive of normal right atrial pressure (3 mmHg). _ E/E'

Average: 18.5 Pericardium Pulmonary Artery sys
There pressure: TR is no max gradient: pericardial 42.4 mmHg effusion. 39.4 mmHg

MMode/2D Measurements & Calculations
IVSd: 0.83 cm _ Reading LVIDd: 6.3 cm Physician: MD LV mass(C)d: Vida Forbes 242.9 grams 10/14/2019
03:20 PM LVIDs: 5.8 cm LV mass(C)dI: 109.9 grams/m2
LVPWd: 1.0 cm
_
Ao root diam: 3.0 cm Asc Aorta diam: Left atrial volume (2c):
LA dimension: 4.7 cm 3.2 cm 109.0 ml
Ao arch diam: Left atrial volume (4c):
2.6 cm 78.9 ml

_
RV mid diameter: Left atrial volume index
RA area (4c): 16.5 cm2 3.8 cm
(2c): 49.3 ml/m2
_

Left atrial volume index
(4c): 35.7 ml/m2

Doppler Measurements & Calculations
MV E max vibha: MV dec time: 0.18 sec Lat E' vibha:
105.0 cm/sec 9.5 cm/sec
MV A max vibha:
43.5 cm/sec

_
Med E' vibha: E/E' Lateral: 11.1 AV v max:
4.1 cm/sec E/E' Medial: 25.9 126.0 cm/sec
AV max P.3 mmHg

_
LVOT max P.7 mmHg MR v mean: 302.4 cm/sec PA max P.9 mmHg
LVOT v max:
95.6 cm/sec
LVOT VTI: 15.1 cm
_

TR v max: Right atrial pressure: 3.0 mmHgRV S vibha: 6.4 cm/sec
313.8 cm/sec
_

E/E' Average: 18.5 Pulmonary Artery sys pressure: TR max gradient:
42.4 mmHg 39.4 mmHg

_

Reading Physician:
MD Vida Forbes 10/14/2019 03:20 PM

</td> ID Date Data Source [id number] 10/13/2019 09:43:00 AM [facility] [id number] Corporation Name Value Range Interpretation Description Data Sup porting Code Source(s) Document(s ) Chest PA (PACSIMAGE <td> 10/13/2019 [facility] 09:43</td><td> [facility] ) Final Chest PA & Health Care Result [facility] Name: LEONARDA, </td><td><marti IOLA MRN: raph [id number] Sex: F styleCode="Ital : 1960 ics">(PACSIMAGE Location: F Admitting Physician: )</paragraph><b EMERGENCY r/>
SERVICE Final Result Requesting Physician: THEODORE

LIZETT Name: LEONARDA, Exam: CHEST PA IOLA AND LATERAL
MRN: 10/13/2019 09:54 [id number] Sex: F HISTORY:
Chest pain : PROCEDURE: PA 1960 and Lateral Location: F radiographs
FINDINGS: Admitting LUNGS and Physician: Pleura: EMERGENCY Redistribution SERVICE of blood flow to
the apices and Requesting trace septal Physician: thickening THEODORE PHOENIX consistent with mild chronic

congestionn Exam: CHEST PA HEART and AND LATERAL MEDIASTINUM: 10/13/2019 Cardiomegaly. 09:54 Defibrillator

<br/ with its wire > HISTORY: tip in the right Chest pain ventricle. BONES and SOFT

TISSUES: Normal PROCEDURE: PA IMPRESSION: and Lateral Cardiomegaly radiographs with mild congestion.

FINDINGS: Resident

Radiologist: LUNGS and Attending Pleura: Radiologist: Redistribution Joleen Niño of blood flow Finalizing to the apices Radiologist:
Joleen Can MD Transcribed septal Date: 10/13/2019 thickening 10:55 consistent with Finalized Date: mild chronic 10/13/2019 10:56 congestionn
HEART and MEDIASTINUM: Cardiomegaly. Defibrillator with its wire
tip in the right ventricle.
BONES and SOFT TISSUES: Normal

IMPRESSION:

Cardiomegaly with mild congestion.

Resident Radiologist:
Attending Radiologist: Joleen Niño MD
Finalizing Radiologist: Joleen Niño MD
Transcribed Date: 10/13/2019 10:55
Finalized Date: 10/13/2019 10:56

</td > Procedure Social History Code Duration Value Status Description Data Source(s ) Smoking Unknown if ever completed Unknown if ever [facility] Sm[facility] Never smoker completed Never smoker [facility] Vital Signs ID Date Data Source UNK Name Value Range Interpretation Code Description Data Source(s) Diastolic blood 72 {} Normal (applies to 72 {} [place] pressure non-numeric results) [facility] on Systolic blood 113 {} Normal (applies to 113 {} [place] pressure non-numeric results) [facility] on First Respiration 19.0000 {} Normal (applies to 19.0000 {} [facility] rate Set non-numeric results) [facility] ty [facility] on Heart rate 82.0000 {} Normal (applies to 82.0000 {} [place] non-numeric results) [facility] on Body temperature 97.0000 {} Normal (applies to 97.0000 {} [facility] non-numeric results) [facility] on wt - obtain Normal (applies to {} [place] non-numeric results) [facility] on weight - kg 113.3000 {} Normal (applies to 113.3000 {} [place] non-numeric results) [facility] on Diastolic blood 85 {} Normal (applies to 85 {} [place] pressure non-numeric results) [facility] on Systolic blood 112 {} Normal (applies to 112 {} [place] pressure non-numeric results) Coun ty [facility] Corpor[facility] on First Respiration 18.0000 {} Normal (applies to 18.0000 {} [facility] rate Set non-numeric results) [facility] ty [facility] on Heart rate 86.0000 {} Normal (applies to 86.0000 {} [place] non-numeric results) [facility] ty [facility] on Body temperature 97.7000 {} Normal (applies to 97.7000 {} [facility] non-numeric results) [facility] ty [facility] on wt - obtain Normal (applies to {} [place] non-numeric results) [facility] on weight - kg 115.0000 {} Normal (applies to 115.0000 {} [place] non-numeric results) [facility] on height - cm Normal (applies to {} [place] non-numeric results) [facility] ty [facility] Corpor[facility] on
--- NOTE | 2020-09-02 21:13 | PDOC ---
Documentation entered by Bebeto Reed SCRIBE, acting as scribe for Miri Perrin MD. Miri Perrin MD: This documentation has been prepared by the Jordan siegel inBebeto SCRIBE, under my direction and personally reviewed by me in its entirety. I confirm that the documentation accurately reflects all work, treatment, procedures, and medical decision making performed by me. Attending Attestation - Resident Resident Name: Luis Calabrese - ED Attending Attestation I have performed the following: I have examined & evaluated the patient, The case was reviewed & discussed with the resident, I agree w/resident's findings & plan, Exceptions are as noted - HPI HPI: 09/02/20 20:29 The patient is a 60year old female with a significant past medical history of MIx2,CHF, DM, CKD, Afib (on Eliquis), hypothyroidism, HTN, HLD, asthma, peptic ulcer disease, and depression who presents to the emergency department for evaluation of shortness of breath that began five days ago. The patient reports her shortness of breath is intermittent, worsened with exertion and improved with rest. She endorses worsening orthopnea, Paroxysmal nocturnal dyspnea while using her CPAP. The patient also notes associated productive cough and a fever five days ago that resolved with Tylenol. She reports being around her grandchildren who are currently sick. The patients PCP decreased her Laix one week ago. Denies fever, chills, chest pain, palpitation, dizziness, weakness, N, V, D, abdominal pain, bladder and bowel problems, leg swelling, No travel. Allergies: tomato, chlorpheniramine, cimetidine, codeine, ibuprofen, latex, pseudoephedrine, shellfish, sulfa, chocolate, shrimp Past Medical History: MIx2,CHF, DM, CKD, Afib (on Eliquis), hypothyroidism, HTN, HLD, asthma, peptic ulcer disease, and depression Social history: Lives with family. No tobacco, ETOH or drug use. Surgical history: pacemaker, stents, cholecystectomy, hysterectomy, bilateral knee replacement Meds: as documented in EMR PMD: Dr. Reece Lanza Cost Accountant: Dr. Mooney - Physicial Exam PE: 09/02/20 20:11 General: Well appearing, awake and alert, NAD. HEENT: NCAT, PERRL, EOMI, clear conjunctiva, anicteric, moist mucous membranes, clear oropharynx, no oral lesions.. Neck: neck supple, FROM Resp: CTAB, normal and even respirations, no respiratory distress CVS: RRR, no murmurs, 2+ peripheral pulses throughout, no peripheral edema Abdomen: soft, NTND, no rebound or guarding. No CVAT. Back: nontender, normal inspection and ROM] MSK: no edema, LUKE x4, ROM intact. No clubbing or cyanosis. normal bulk and tone. Extremities: no calf tenderness Neuro: alert, oriented appropriately; no focal neurologic deficits Skin: warm and well perfused, cap refill <2 sec, normal color - Medical Decision Making 09/02/20 21:13 Vital Signs Temp Pulse Resp BP Pulse Ox 99.2 F 89 22 H 114/98 100 09/02/20 20:00 09/02/20 20:00 09/02/20 20:00 09/02/20 20:00 09/02/20 20:00 09/02/20 22:31 vitals reviewed afebrile, normotensive.sats appropriate, on supp O2 for comfort normal heart rate has been having SOB with exertion this week, associated with abdominal bloating/pain, constipation. DDx SOB: ACS, PE, PTX, CHF, COPD exac, pulmonary edema, pleurisy, pneumonia, viral syndrome. effusion. anemia, electrolyte/metabolic derangements. Considered but clinically doubt based on HPI and PE: Low suspicion for pulmonary embolism or dissection. Interpreted by ED Physician: CXR (1 view): enlarged heart, bilateral infiltrative pattern more likely pulmonary vascular congestion, bones appear intact and structures normal alignment. no free air under diaphragm, no pneumothorax. defibrillatory in place EKG normal sinus rhythm, wide QRS, LBBB, ST and T wave segments and morphology normal. Nonspecific T wave abnormalities, labs and lytes with mild anemia, no bleeding elevated trop and bnp, higher than prior levels. trop is 0.08 and bnp in 5000s (chronically elevated given CHF). CTA chest to eval for PE CT a/p to eval for intra abdominal pathology given her abdominal bloating/sx. admitting to tele, Dr Lewis. Heart Score/ECG Review #1 ECG reviewed & interpreted by me at: 21:45 General ECG Interpretation: Sinus Rhythm, Normal Rate, Normal Intervals Compared to previous ECG there are: No significant change 09/02/20 21:52 EKG normal sinus rhythm at 84 bpm, left bundle branch block is noted, wide QRS. Prolonged QTc interval, intermittent PVC Discharge - Discharge Information Problems reviewed: Yes Clinical Impression/Diagnosis: CHF exacerbation Qualifiers: Heart failure type: unspecified Qualified Code(s): I50.9 - Heart failure, unspecified Condition: Fair - Admission Yes - Follow up/Referral Referrals: Reece Lanza MD [Primary Care Provider] - - Patient Discharge Instructions - Post Discharge Activity
[2020-09-02 21:23] LABS: BASO % 0.9 % (0-2.0); EOS % 0.6 % (0-4.5); LYMPH % 21.6 % (8-40); MCH 25.7 pg (25.7-33.7); MCHC 31.4 g/dl (32.0-36.0); MEAN CELL VOLUME 81.8 fl (80-96); MEAN PLT VOLUME 9.8 fl (7.5-11.1); MONO % 5.9 % (3.8-10.2); PLATELET COUNT 292 K/MM3 (134-434); RBC 3.91 M/mm3 (3.60-5.2); RDW 17.8 % (11.6-15.6); WHITE BLOOD COUNT 9.6 K/mm3 (4.0-10.0)
[2020-09-02] MEDS ORDERED: LORazepam 1 MG TABLET PO ONE (21:50)
[2020-09-02 21:53] LABS: ALBUMIN 3.3 g/dl (3.4-5.0); ALK PHOS 87 U/L (45-117); ANION GAP 10 MMOL/L (8-16); BILIRUBIN,TOTAL 0.4 mg/dL (0.2-1); BLOOD UREA NITROGEN 10.3 mg/dL (7-18); CALCIUM 8.5 mg/dL (8.5-10.1); CHLORIDE 100 mmol/L (98-107); CO2 26 mmol/L (21-32); CREATININE 1.3 mg/dL (0.55-1.3); GLUCOSE,RANDOM 252 mg/dL (74-106); N-TERMINAL BNP 5586.3 pg/ml (5-125); SGOT/AST 11 U/L (15-37); SGPT/ALT 10 U/L (13-61); SODIUM 136 mmol/L (136-145); TOT PROT 6.7 g/dl (6.4-8.2)
[2020-09-02] MEDS ORDERED: FUROSEMIDE 100 MG/10 ML INJECTABLE VIAL IVPB ONE (22:34)
--- OUTSIDE RECORDS SUMMARY | 2020-09-02 22:47 | XMS ---
:1960 Author Organization [facility] Care Team Providers Name Role Phone ETHEL JAIRON JAIRON Unavailable Unavailable MUSIAL, ERNA Unavailable Unavailable ORTHODOXY, HUMAYUN Unavailable Unavailable EMERGENCY SERVICE, X Unavailable [...] is protected by Article 27-F of the [facility] Public Health law. If you continue you may haveaccess to information: Regarding HIV / AIDS; Provided by facilities licensed or operated by the [facility] Office of Mental Health; or Provided by the [facility] Office for People With Developmental Disabilities. If such information is present, then the following [facility] mandated warning applies: This information has [...] law may result in a fine or mcc sentence or both. A general authorization for the release of medical or other information is NOT sufficient authorization for further disclosure. Allergies and Adverse Reactions Type Description Substance Reaction Status Data Source(s ) Drug allergy Unable to Assess Unable to Assess [facility] Drug allergy SULFA SULFA [facility] Drug allergy Pseudoephedrine Pseudoephedrine Sa [facility] Drug allergy Penicillin G Penicillin G [facility] Drug allergy NSAIDS NSAIDS [facility] Drug allergy Codeine Codeine [facility] Drug allergy Cimetidine Cimetidine [facility] Drug allergy Chlorpheniramine Chlorpheniramine [facility] Encounters Encounter Providers Location Date Indications Data Source(s ) Outpatient Attender: NIKITA 05/04/2020 G47.33 [facility] OLEGAdmitter: 06:00:00 AM Health Car e NIKITA [employer] OLEGReferrer: COCO SHELTON G47.33 Outpatient Attender: KAREL 05/01/2020 06:45:00 [facility] Trendsl[facility] Z03.818 Outpatient Attender: JAIRON Latif 01/08/2020 08:53:00 [facility] MARSHALANAdmitter: JAIRON DE LA OReferrer: JAIRON DE LA O Outpatient Attender: NIKITA 12/21/2019 06:00:00 R06.02 [facility] OLEGAdmitter: RAHEL SHELTON [facility] OLEGReferrer: Rickey SHELTON COCO R06.02 Outpatient Attender: ORTHODOXY, 10/26/2019 I27.0 [facility]42.8 [facility]: OR[facility], 12:54:00 PM [facility] HUMAYUNReferrer: YANET Trendslide ERNA I27.0 I42.8 Inpatient 10/21/2019 08:07:00 AM [facility] Inpatient 10/21/2019 08:07:00 AM We [facility] Outpatient Attender: TRISTA, 10/13/2019 06:00:00 AM I42.8 [facility] SANDRA LegerAdmitter: [facility] SANDRA WESTONReferrer: SANDRA WESTON I42.8 Inpatient Attender: SANDRA WESTON 10/12/2019 08:46:00 [facility] - 10/15/2019 [facility] [place] 05:41:00 PM EST ADHF Patient admitted. Emergency Attender: SANDRA WESTON 10/12/2019 07:06:00 PM [facility]NY [facility] EMERGENCY EST [facility] SERVICE, XAdmitter: SANDRA WESTON PAIN Outpatient Attender: ORTHODOXY, 10/05/2019 11:05:00 [facility] RAHEL PRADO [facility] HUMAYUNReferrer: SANDRA WESTON Outpatient Attender: SABINA Latif 04/09/2019 01:50:00 [facility] DANUTAAdmitter: PM EDT Center SABINA PRRYAN DANUTAReferrer: CARLITOS Skaggs Outpatient Attender: THEODORE Latif 02/04/2019 07:08:00 [facility] THEODOREAdmitter: THEODORE WHITAKER AM EST Center THEODOREReferrer: THEODORE JAIMES Medications Medication Brand Start Product Dose Route Administrative Pharmacy [facility] Indications Reaction Description Data Name Date Form Instructions Instructions Source(s) Insulin Insuli complet [facility] Glargine n ed r [facility] 100 UNT/ML Glargi Health Injectable ne Care Solution [100 Corporatio Insulin unit/m n Glargine L [100 Soluti unit/mL on]: Solution]: 20 20 Unit Unit Subcutaneou Subcut s DAILY IN aneous MORNING DAILY IN MORNIN G 120 ACTUAT Symbic complet [facility] Budesonide ort [facility] 0.16 (Budes Health MG/ACTUAT / onide- Care formoterol Formot Corpora marah fumarate marina) n 0.0045 [160 MG/ACTUAT mcg-4. Metered 5 Dose mcg/ac Inhaler tuatio Symbicort n (Budesonide INHALE -Formoterol R]: 2 ) [160 PUFF mcg-4.5 Inhala mcg/actuati tion 2 on TIMES INHALER]: 2 A DAY PUFF Inhalation 2 TIMES A DAY Albuterol [id number] complet [facility] heste Sulfate [90 090 [facility] Health INHALER]: 2 Care PUFF Corporatio Inhalation n EVERY 4 HOURS PRN sob sacubitril Entres complet [facility] 24 MG / to [facility] valsartan (sacub Health 26 MG Oral itril- Care Tablet valsar Corporatio Entresto strange) n (sacubitril [24 -valsartan) mg-26 [24 mg-26 mg mg Tablet]: Tablet 1 Tablet ]: 1 Oral Tablet 10A-10P Oral 10A-10 P Insulin Insuli complet [facility] Lispro 100 n [facility] UNT/ML Lispro Health Injectable [100 Care Solution unit/m Corporati o Insulin L n Lispro [100 Soluti unit/mL on]: Solution]: 20 20 Unit Unit Subcutaneou Subcut s DAILY aneous DAILY Spironolact Spiron complet [place] one 25 MG olacto [facility] Oral Tablet ne [25 Health Spironolact mg Care one [25 mg Tablet Corpora marah Tablet]: 1 ]: 1 n Tablet Oral Tablet DAILY Oral DAILY Levothyroxi Levoth complet [place] ne Sodium yroxin [facility] 0.075 MG e [75 Health Oral Tablet mcg Care Levothyroxi Tablet Corpor atio ne [75 mcg ]: 1 n Tablet]: 1 Tablet Tablet Oral Oral DAILY DAILY Discharge complet [facility] Medications [facility] are Health unavailable Care . Corporatio n atorvastati Atorva complet [place] n 40 MG statin ed [facility] Oral Tablet [40 mg Health Atorvastati Tablet Care n [40 mg ]: 1 Corporatio Tablet]: 1 Tablet n Tablet Oral Oral BEDTIME BEDTIM E Furosemide Furose complet [place] cheste 40 MG Oral mide ed [facility] Tablet [40 mg Health Furosemide Tablet Care [40 mg ]: 1 Corporatio Tablet]: 1 Tablet n Tablet Oral Oral EVERY OTHER EVERY DAY OTHER DAY Insulin Insuli complet [place] saf[place] Glargine n ed [facility] 100 UNT/ML Glargi Health Injectable ne Care Solution [100 Corporatio Insulin unit/m n Glargine L [100 Soluti unit/mL on]: Solution]: 10 10 Unit Unit Subcutaneou Subcut s DAILY IN aneous EVENING DAILY IN EVENIN G Linaclotide complet [facility] heste (Free Text ed [facility] Medication) Health [290]: 1 Care Tablet Oral Corporat io EVERY OTHER n DAY gabapentin Gabape [facility] MG Oral ntin ed [facility] Capsule [300 Health Gabapentin mg Care [300 mg Capsul Corporatio Capsule]: 1 e]: 1 n Capsule Capsul Oral 3 e Oral TIMES A DAY 3 TIMES A DAY Docusate Docusa complet [facility] brennan Sodium 100 te ed [facility] MG Oral Sodium Health Tablet [100 Care Docusate mg Corporatio Sodium [100 Tablet n mg Tablet]: ]: 1 1 Tablet Tablet Oral 2 Oral 2 TIMES A DAY TIMES A DAY duloxetine Duloxe complet [place] 30 MG grey ed [facility] Delayed [30 Health Release mg]: 1 Care Oral Capsul Corporatio Capsule e Oral n Duloxetine DAILY [30 mg]: 1 Capsule Oral DAILY Metoclopram Metocl complet [place] rich 5 MG oprami ed [facility] Oral Tablet de [5 Health Metoclopram mg Care rich [5 mg Tablet Corporat io Tablet]: 1 ]: 1 n Tablet Oral Tablet 2 TIMES A Oral 2 DAY TIMES A DAY apixaban 5 Eliqui complet [place] MG Oral s [5 ed [facility] Tablet mg Health Eliquis [5 Tablet Care [...] Metopr complet [place] e metoprolol olol ed [facility] succinate XL [25 Health 25 MG mg]: 1 Care Extended Tablet Corporati o Release Oral n Oral Tablet DAILY Metoprolol XL [25 mg]: 1 Tablet Oral DAILY Linagliptin complet [facility] heste -Metformin ed [facility] (Free Text Health Medication) Care [2.5-1000]: Corporat io 1 Tablet n Oral 2 TIMES A DAY Insurance Providers Payer name Policy type Policy ID Covered Covered alliance party's Policy P annmarie / Coverage alliance party ID relationship to Arellano Inf ormation type arellano HIP MEDICARE [id number] SP [id number] VIP 1 MEDICAID [id number] SP [id number] MEDICAID [id number] SP [id number] KENDAL MEDICARE [id number] SP [id number] HIP MEDICARE [id number] SP [id number] VIP 1 KENDAL MEDICARE [id number] SP [id number] MEDICARE [id number] SP [id number] 18 8 MEDICARE [id number] SP [id number] A MEDICARE [id number] SP [id number] KENDAL MEDICARE [id number] SP [id number] BLUE CROSS [id number] SP [id number] SENIOR PLAN 44 O [id number] 01 [id number] HIP O [id number] 01 [id number] 1 W [id number] EMPIRE [id number] [facility] [id number] PART B [id number] [facility] [id number] HIP MEDICARE [id number] SP [id number] M VIP MEDICARE [id number] SP [id number] A MEDIBLUE OP O [id number] 01 [id number] MEDICARE [id number] SP [id number] A MEDICARE [id number] SP [id number] M [id number] A Problems, Conditions, and Diagnoses Code Display Name Description Problem Type Effective Data Sour ce(s) Dates E66.01 Morbid (severe) MORBID (SEVERE) Diagnosis 05/04/2020 [place] obesity due to OBESITY DUE TO 06:00:00 AM Count y Health excess calories EXCESS CALORIES EDT Care Trendslide G47.33 Obstructive sleep OBSTRUCTIVE SLEEP Diagnosis 05/04/2020 [place] apnea (adult) APNEA (ADULT) 06:00:00 AM [facility] (pediatric) (PEDIATRIC) EDT Care [place] M47.9 Spondylosis, SPONDYLOSIS, Diagnosis 01/08/2020 [facility] unspecified UNSPECIFIED 08:53:00 AM Medical [facility] EST R06.02 Shortness of breath SHORTNESS OF BREATH Diagnosis 020 [place] 06:00:00 AM [facility] [employer] J44.9 Chronic obstructive CHRONIC OBSTRUCTIVE Diagnosis [place] pulmonary disease, PULMONARY DISEASE, 12:54:00 PM [facility] unspecified UNSPECIFIED EST Care Trends[place] I50.23 Acute on chronic ACUTE ON CHRONIC Diagnosis 10/26/2019 [facility] systolic SYSTOLIC 12:54:00 PM [facility] (congestive) heart (CONGESTIVE) HEART [facility] failure FAILURE Corporation I42.8 Other OTHER Diagnosis 10/26/2019 [place] cardiomyopathies CARDIOMYOPATHIES 12:54:00 PM [facility] EST Care [place] I27.0 Primary pulmonary PRIMARY PULMONARY Diagnosis 10/26/2019 [place] hypertension HYPERTENSION 12:54:00 PM [facility] EST [place] Z79.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 019 [place] use of USE OF 05:41:00 PM [facility] ANTICOAGULANTS EST Care Trends[place] Z91.040 Latex allergy status LATEX ALLERGY Diagnosis 10/15/2019 [facility] STATUS 05:41:00 PM [facility] [employer] Z88.8 Allergy status to ALLERGY STATUS TO Diagnosis 10/15/2019 [place] other drugs, OTH DRUG/MEDS/BIOL 05:41:00 PM [facility] medicaments and SUBST STATUS [employer] [facility] biological Trends[place] substances status Z88.2 Allergy status to ALLERGY STATUS TO Diagnosis 10/15/2019 [place] sulfonamides status SULFONAMIDES STATUS 05:41:0 0 PM [facility] [employer] Z88.5 Allergy status to ALLERGY STATUS TO Diagnosis 10/15/2019 [place] narcotic agent NARCOTIC AGENT 05:41:00 PM Count y Health status STATUS EST Care Trends[place] Z79.4 [facility]CI (current) DETENTION (CURRENT) Diagnosis 019 [place] use of insulin USE OF INSULIN 05:41:00 PM Count y Health EST Care Corporation 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 10/15/[address] [facility] clay infarction INFARCTION 05:41:00 PM [facility] EST Care Trends[place] Z95.810 Presence of PRESENCE OF Diagnosis 10/15/2019 [place] automatic AUTOMATIC 05:41:00 PM [facility] (implantable) (IMPLANTABLE) [facility] cardiac CARDIAC Corporation defibrillator DEFIBRILLATOR Z95.5 Presence of coronary PRESENCE OF Diagnosis 10/15/2019 [facility] [place] angioplasty implant CORONARY 05:41:00 PM [facility] and graft ANGIOPLASTY IMPLANT EST Care AND GRAFT Corporation I48.0 Paroxysmal atrial PAROXYSMAL ATRIAL Diagnosis 10/15/2019 [place] fibrillation FIBRILLATION 05:41:00 PM [facility] EST Care [place] E11.40 Type 2 diabetes TYPE 2 DIABETES Diagnosis 10/15/2019 [place] mellitus with MELLITUS WITH 05:41:00 PM [facility] diabetic neuropathy, DIABETIC EST Care unspecified NEUROPATHY, UNSP Corpora tion E11.22 Type 2 diabetes TYPE 2 DIABETES Diagnosis 10/15/2019 [place] mellitus with MELLITUS W DIABETIC 05:41:00 PM [facility] [employer] diabetic chronic CHRONIC KIDNEY EST Care kidney disease DISEASE Corporatio n N18.9 Chronic kidney CHRONIC KIDNEY Diagnosis 10/15/[address] [facility] clay disease, unspecified DISEASE, 05:41:00 PM [facility] UNSPECIFIED EST Care Corporation I25.10 Atherosclerotic ATHSCL HEART Diagnosis 10/15/2019 [facility] heart disease of DISEASE OF LUMMI 05:41:00 PM [facility] [place] coronary CORONARY ARTERY W/O EST [facility] artery without ANG PCTRS Corporatio n angina pectoris I27.23 Pulmonary PULMONARY Diagnosis 10/15/2019 [place] hypertension due to HYPERTENSION DUE TO 05:41:0 0 PM [facility] lung diseases and LUNG DISEASES AND EST Care hypoxia [employer] Z68.41 Body mass index BODY MASS INDEX Diagnosis 10/15/2019 [place] (BMI) 40.0-44.9, (BMI) 40.0-44.9, 05:41:00 PM [employer] adult ADULT EST Care Corporation I13.0 Hypertensive heart HYP HRT and CHR Diagnosis 10/12/2019 [place] and chronic kidney KDNY DIS W HRT FAIL 08:46:00 PM [facility] with heart AND STG 1-4/UNSP EST Care [...] sephs screening mammogram MAMMOGRAM FOR 07:08:00 AM [facility] for malignant MALIGNANT NEOPLASM EST neoplasm of breast OF BREAST Results ID Date Data Source [id number] 07/20/2020 04:30:00 PM EDT [facility] Name Value Range Interpretation Description Data Sup porting Code Source(s) Document(s ) SARS [facility] coronavirus 2 RNA This lab was ordered by [facility] and reported by [facility]. ID Date Data Source [id number] 07/05/2020 08:10:00 PM EDT [facility] Name Value Range Interpretation Description Data Sup porting Code Source(s) Document(s ) SARS [facility] coronavirus 2 RNA This lab was ordered by [facility] and reported by [facility]. ID Date Data Source [id number] 05/23/2020 09:03:00 PM EDT [facility] Name Value Range Interpretation Description Data Sup porting Code Source(s) Document(s ) SARS [facility] CORONAVIRUS 2 RNA This lab was ordered by [facility] and reported by [facility]. ID Date Data Source [id number] 02/20/2020 01:00:00 PM EDT [facility] Name Value Range Interpretation Code Description Data Riya rce(s) Supporting Document(s ) 2019-nCoV [facility] N XXX Ql MITCH N2 This lab was ordered by [facility] and reported by [facility]. ID Date Data Source [id number] 10/15/2019 06:11:00 AM EST [facility] [id number] Corporation Name Value Range Interpretation Description Data Sup porting Code Source(s) Document(s ) Leukocytes 7.8 k/mm3 4.8-10 <td> 10/15/2019 [place] [#/volume] in .8 06:11</td><td> [facility] Blood by k/mm3 WBC </td><td> Health Care Automated count Corporation 7.8
(4.8-10.8) k/mm3 </td> Hemoglobin 11.1 g/dL 12.0-1 <td> 10/15/2019 [place] [Mass/volume] 6.0 06:11</td><td> County in Blood g/dL [facility] </td><td><[employer] raph styleCode="Bold "> 11.1 L </paragraph>
(12.0-16.0) g/dL </td> Erythrocytes 4.22 m/mm3 3.90-5 <td> 10/15/2019 [facility] [#/volume] in .20 06:11</td><td> [facility] Blood m/mm3 RBC </td><td> Health Care Trends[place] 4.22
(3.90-5.20) m/mm3 </td> Hematocrit 37.3 % 37.0-4 <td> 10/15/2019 [place] [Volume 7.0 % 06:11</td><td> [facility] Fraction] of HCT </td><td> Health Care Blood by T[place] Automated count 37.3
(37.0-47.0) % </td> Erythrocyte 26.3 pg 27.0-3 <td> 10/15/2019 [place] mean 1.5 pg 06:11</td><td> [facility] corpuscular [facility] hemoglobin </td><td><marti Trends[place] [Entitic mass] raph by Automated styleCode="Bold count "> 26.3 L </paragraph>
(27.0-31.5) pg </td> Erythrocyte 88.4 fL 81.0-9 <td> 10/15/2019 [place] mean 9.0 fL 06:11</td><td> County corpuscular MCV </td><td> Health Care volume [[employer] volume] by 88.4 Automated count
(81.0-99.0) fL </td> Erythrocyte 29.8 % 32.0-3 <td> 10/15/2019 [place] mean 6.0 % 06:11</td><td> [facility] corpuscular [facility] hemoglobin </td><td><[employer] concentration raph [Mass/volume] styleCode="Bold in Blood from "> Fetus by 29.8 Automated count L </paragraph>
(32.0-36.0) % </td> Platelet mean 11.3 fL 9.8-12 <td> 10/15/2019 [facility] r volume [Entitic .8 fL 06:11</td><td> County volume] in MPV </td><td> Health Care Blood by Corporation Automated count 11.3
(9.8-12.8) fL </td> Erythrocyte 14.6 % 11.5-1 <td> 10/15/2019 [place] distribution 4.5 % 06:11</td><td> County width [Entitic RDW Health Care volume] by </td><td><[employer] Automated count raph styleCode="Bold "> 14.6 H </paragraph>
(11.5-14.5) % </td> Lymphocytes 14.3 % 17.0-5 <td> 10/12/2019 [place] [#/volume] in 0.0 % 21:32</td><td> County Blood by Lymphocytes Health Care Automated count </td><td><[employer] Corpor[employer] ion raph styleCode="Bold "> 14.3 L </paragraph>
(17.0-50.0) % </td> Platelets 271 k/mm3 160-41 <td> 10/15/2019 [place] [#/volume] in 0 06:11</td><td> County Blood by k/mm3 Platelet Count Health Care Automated count </td><td> Corporation 271
(160-410) k/mm3 </td> Basophils+Eosin 0.0 % 0.0-5. <td> 10/12/2019 [facility] ophils+Monocyte 0 % 21:32</td><td> County s [#/volume] in Eosinophils Health Care Blood by </td><td> [place] Automated count 0.0
(0.0-5.0) % </td> Monocytes/Leuko 7.9 % 0.0-11 <td> 10/12/2019 [facility] cytes [Pure .0 % 21:32</td><td> County number Monocytes. Health Care fraction] in </td><td> [facility] Blood by Automated count 7.9
(0.0-11.0) % </td> Basophils 0.1 % 0.0-2. <td> 10/12/2019 [place] [#/volume] in 0 % 21:32</td><td> [facility] Blood by Basophils [facility] Automated count </td><td> Trendslide 0.1
(0.0-2.0) % </td> Immature 0.9 % 0.0-0. <td> 10/12/2019 [place] granulocytes/10 5 % 21:32</td><td> [facility] 0 leukocytes in IG% Health Care Blood by </td><td>[employer] Automated count raph styleCode="Bold "> 0.9 H </paragraph>
(0.0-0.5) %
The IG fraction represents metamyelocytes, myelocytes and/or
promyelocytes and is only reported as part of the automated
differential when found at a percentage of less than 6.
If higher than 6%, a manual differential will be performed.

(0.0-0.5) % </td> Sodium 135 mEq/L 135-14 <td> 10/15/2019 [place] [Moles/volume] 5 06:11</td><td> County in Serum or mEq/L Sodium-Serum Health Care Plasma </td><td> Trends[place]ide 135
(135-145) mEq/L </td> Neutrophils [#] 76.8 % 40.0-7 <td> 10/12/[address] [facility] [address] in Body fluid 6.0 % 21:32</td><td> County by Manual count Neutrophils Health Care </td><td><[employer] raph styleCode="Bold "> 76.8 H </paragraph>
(40.0-76.0) % </td> Glucose 157 mg/dL 70-105 <td> 10/15/2019 [place] [Mass/volume] mg/dL 06:11</td><td> County in Blood Glucose-Serum Health Care </td><td><[employer] raph styleCode="Bold "> 157 H </paragraph>
(70-105) mg/dL </td> Potassium 3.9 mEq/L 3.5-5. <td> 10/15/2019 [place] [Moles/volume] 1 06:11</td><td> County in Serum or mEq/L Potassium-Serum Health Care Plasma </td><td> T[place] 3.9
(3.5-5.1) mEq/L </td> Chloride 101 mEq/L 98-107 <td> 10/15/2019 [place] [Moles/volume] mEq/L 06:11</td><td> County in Serum or Chloride Health Care Plasma </td><td> T[place] 101
(98-107) mEq/L </td> Urea nitrogen 19 mg/dL 6-22 <td> [facility] [Mass/volume] mg/dL 06:11</td><td> County in Blood BUN </td><td> Health Care [place] 19
(6-22) mg/dL </td> Carbon dioxide, 26 mEq/L 22-30 <td> 10/15/[address] [facility] [address] total mEq/L 06:11</td><td> County [Moles/volume] CO2 </td><td> Health Car e in Serum or Corporation Plasma 26
(22-30) mEq/L </td> Creatinine 1.14 mg/dL 0.57-1 <td> 10/15/2019 [place] [Moles/volume] .11 06:11</td><td> County in Serum or mg/dL Creatinine. Health Care Plasma </td><td><[employer] Corporation raph styleCode="Bold "> 1.14 H </paragraph>
(0.57-1.11) mg/dL </td> Aspartate 9 U/L 4-35 <td> 10/15/2019 [place] aminotransferas U/L 06:11</td><td> County e [Enzymatic AST (SGOT) Health Care activity/volume </td><td> Trendslide ] in Serum or Plasma 9
(4-35) U/L </td> Alanine 6 U/L 6-55 <td> 10/15/2019 [place] aminotransferas U/L 06:11</td><td> County e [Enzymatic ALT (SGPT) Health Care activity/volume </td><td> Trendslide ] in Serum or Plasma 6
(6-55) U/L </td> Bilirubin.total 0.3 mg/dL 0.2-1. <td> 10/15/2019 [facility] [Mass/volume] 3 06:11</td><td> [facility] in Blood mg/dL Bilirubin - [employer] </td><td> 0.3
(0.2-1.3) mg/dL </td> Proteins - 6.8 g/dL 6.4-8. <td> 10/15/2019 [place] Total 3 g/dL 06:11</td><td> [facility] Proteins - [employer] </td><td> 6.8
(6.4-8.3) g/dL </td> Calcium 8.9 mg/dL 8.6-10 <td> 10/15/2019 [place] [Mass/volume] .2 06:11</td><td> [facility] in Blood mg/dL Calcium Health Care </td><td> [place] 8.9
(8.6-10.2) mg/dL </td> Albumin 3.7 g/dL 3.4-4. <td> 10/15/2019 [place] [Mass/volume] 8 g/dL 06:11</td><td> [facility] in Serum or Albumin Health Care Plasma </td><td> [facility] 3.7
(3.4-4.8) g/dL </td> Globulin 3.1 gm/dL 2.9-4. <td> 10/15/2019 [place] [Mass/volume] 0 06:11</td><td> [facility] in Serum gm/dL Globulin Health Care </td><td> [place] 3.1
(2.9-4.0) gm/dL </td> Anion gap in 8 mEq/L 7-13 <td> 10/15/2019 [place] Serum or Plasma mEq/L 06:11</td><td> [facility] Anion Gap Health Care </td><td> [facility] 8
(7-13) mEq/L </td> Icteric index Non <td> 10/15/2019 [facility] r of Serum or Icteric 06:11</td><td> [facility] Plasma Icteric Index Health [facility] </td><td> [facility] Non Icteric
</td> Hemolysis index No <td> 10/15/2019 [facility] of Serum or Hemolysis 06:11</td><td> [facility] Plasma Hemolysis Index Health [facility] </td><td> [facility] No Hemolysis
</td> Lipemic index No Lipemia <td> 10/15/2019 [facility] er of Serum or 06:11</td><td> [facility] Plasma Lipemia Index Health Care </td><td> [facility] No Lipemia
</td> Phosphate 3.1 mg/dL 2.3-4. <td> 10/15/2019 [place] [Mass/volume] 7 06:11</td><td> [facility] in Serum or mg/dL Inorganic Health Care Plasma Phosphorus [facility] </td><td> 3.1
(2.3-4.7) mg/dL </td> Prothrombin 11.1 secs 9.8-12 <td> 10/15/2019 [place] time (PT) .0 06:11</td><td> [facility] secs Prothrombin Health Care Time. [facility] </td><td> 11.1
(9.8-12.0) secs </td> aPTT panel - 26.3 secs 25.0-3 <td> 10/15/2019 [place] Platelet poor 2.0 06:11</td><td> [facility] plasma secs Partial Health Care Thromboplastin [facility] Time </td><td> 26.3
(25.0-32.0) secs </td> Magnesium 1.9 mg/dL 1.6-2. <td> 10/15/2019 [place] [Mass/volume] 6 06:11</td><td> [facility] in Serum or mg/dL Magnesium Level Health Care Plasma </td><td> [place] 1.9
(1.6-2.6) mg/dL </td> Cholesterol in 50 mg/dL >60 <td> 10/14/2019 [facility] er HDL mg/dL 06:45</td><td> [facility] [Mass/volume] HDL Cholesterol Health Car e in Serum or </td><td> [facility] Plasma 50
(>60) mg/dL </td> Cholesterol 179 mg/dL 125-24 <td> 10/14/2019 [place] [Moles/volume] 0 06:45</td><td> [facility] in Serum or mg/dL Cholesterol Health Care Plasma </td><td> [place]ide 179
(125-240) mg/dL </td> Glucose 167 mg/dL 70-105 <td> 10/15/2019 [place] [Mass/volume] mg/dL 11:45</td><td> [facility] in Capillary Glucose - Health Care blood by Finger Stick [facility] Glucometer </td><td><marti raph styleCode="Bold "> 167 H </paragraph>
(70-105) mg/dL </td> Triglyceride 173 mg/dL 30-200 <td> 10/14/2019 [place] [Mass/volume] mg/dL 06:45</td><td> [facility] in Serum or Triglyceride Health Care Plasma </td><td> [place] 173
(30-200) mg/dL </td> Cholesterol in 94 mg/dL <150 <td> 10/14/2019 [facility] LDL mg/dL 06:45</td><td> [facility] [Mass/volume] LDL Cholesterol Health Car e in Serum or </td><td> [place] Plasma 94
(<150) mg/dL </td> ID Date Data Source [id number] 10/14/2019 01:50:00 PM EST [facility] [id number] [facility] Name Value Range Interpretation Description Data Sup porting Code Source(s) Document(s ) Echo 2D [id number] [facility] <td> 10/14/2019 [facility] M-Mode [id number] 13:50</td><td> [facility] Complete [id number] Echo 2D M-Mode [facility] Care (TTE) Non-Invasive Complete (TTE) [facility] Cardiology </td><td> Laboratory [id number] Advanced
Physician [facility]
[address] [id number] [place]
[address] Phone [phone] Non-Invasive Adult
Echocardiogram Cardiology Report Name:
SELINA BROWER Laboratory
Study Date: Advanced 10/14/2019
01:50 PM MRN: Physician [id number]
Services, [facility] BP: 124/96
mmHg : [address]
Gender: [place], [place] Female Age:
59 yrs [address]
Height: 66 Phone [phone]) in Account
Number: [phone] Fax [phone]
([phone]) Weight: 253 lb [phone] BSA: 2.2 m2
Patient Adult Location: 5NE [...] is Account 20-25%. There Number: is severe [id number] global hypokinesis of Weight: 253 lb the [...] spectral and ventricle. color flow
Doppler). Right (44409). Study ventricular quality is systolic good. A [...] regurgitation. color flow Mitral Doppler). Valve Mild (78534). Study thickening of quality is the mitral [...] 03:20 PM

</td> ID Date Data Source [id number] 10/13/2019 09:43:00 AM [facility] [id number] Corporation Name Value Range Interpretation Description Data Sup porting Code Source(s) Document(s ) Chest PA (PACSIMAGE <td> 10/13/2019 [place] [facility] 09:43</td><td> [facility] ) Final Chest PA & Health Care Result [facility] T[facility] Name: LEONARDA, </td><td><marti IOLA MRN: raph [id number] Sex: F styleCode="Ital : 1960 ics">(PACSIMAGE Location: F Admitting Physician: )</paragraph><b EMERGENCY r/>
SERVICE Final Result Requesting Physician: THEODORE

LIZETT Name: LEONARDA, Exam: CHEST PA IOLA AND LATERAL
MRN: 10/13/2019 09:54 [id number] Sex: F HISTORY:
Chest pain : PROCEDURE: [...] Center Smoking Never smoker completed Never smoker [facility] Vital Signs ID Date Data Source [...] 19.0000 {} Normal (applies to 19.0000 {} [place] rate Set non-numeric results) [facility] Heart rate 82.0000 {} Normal (applies to 82.0000 {} [place] non-numeric results) [facility] Body temperature 97.0000 {} Normal (applies to 97.0000 {} [place] non-numeric results) [facility] [...] 18.0000 {} Normal (applies to 18.0000 {} [place] rate Set non-numeric results) [facility] Heart rate 86.0000 {} Normal (applies to 86.0000 {} [place] non-numeric results) [facility] on Body temperature 97.7000 {} Normal (applies to 97.7000 {} [place] non-numeric results) [facility] [...]
[2020-09-03] MEDS ORDERED: PANTOPRAZOLE 40 MG TABLET PO ONE (07:15)
[2020-09-03] MEDS ORDERED: ALBUTEROL SO4 0.083% IH SOL 2.5 MG/3 ML VIAL.NEB. NEB PRN (08:06)
[2020-09-03] MEDS ORDERED: LEVOTHYROXINE NA 75 MCG TABLET (FP) PO SCH ×2 (10:00→10:06)
[2020-09-03] MEDS ORDERED: PATIENT'S OWN MEDICATION (NON-FORMULARY) (Linaclotide [Linzess] 290 MCG) PO SCH (10:00)
--- NOTE | 2020-09-03 10:21 | CON.CARD ---
Cardiology Consult (text) - Consultation Consultation Note: Chief Complaint: short of breath History of Present Illness: 60 F here with mild shortness of breath. Recent admit for same, for chf, was diuresed and felt better but then at home sxs gradually returned. no cp palps dizzy loc pnd orthopnea. Sees dr whitaker for cardio. PMH: morbid obesity nonisch CMP AF HTN - Past Medical History Cardio/Vascular: Yes: CHF, HTN, Hyperlipdemia Pulmonary: Yes: Asthma, Sleep Apnea Renal/: Yes: Renal Failure ...: No Endocrine: Yes: Diabetes Mellitus, Hypothyroidism - Past Surgical History Past Surgical History: Yes: Cholecystectomy, Joint Replacement (left tkr), Permanent Pacemaker (ICD) - Alcohol/Substance Use Hx Alcohol Use: No - Smoking History Smoking history: Unknown if ever smoked Have you smoked in the past 12 months: No Aproximately how many cigarettes per day: 0 - Social History Usual Living Arrangement: With Spouse ADL: Independent History of Recent Travel: No Home Medications Current Medications Generic Name Dose Route Start Last Admin Trade Name Freq PRN Reason Stop Dose Admin Albuterol Sulfate 1 amp 09/03/20 09:35 Ventolin 0.083% Nebulizer Soln - NEB Q4H PRN SHORT OF BREATH/WHEEZING Apixaban 5 mg 09/03/20 10:00 Eliquis - PO BID DOM Atorvastatin Calcium 80 mg 09/03/20 22:00 Lipitor - PO HS DOM Budesonide/Formoterol Fumarate 2 puff 09/03/20 10:00 Symbicort 160/4.5mcg - IH BID DOM Carvedilol 6.25 mg 09/03/20 10:00 Coreg - PO BID DOM Furosemide 40 mg 09/03/20 14:00 Lasix Injection - IVPUSH BID@0600,1400 DOM Insulin Aspart 1 vial 09/03/20 11:00 Novolog Vial Sliding Scale - SQ ACHS DOM Protocol Insulin Detemir 26 units 09/03/20 22:00 Levemir Vial SQ HS DOM Levothyroxine Sodium 75 mcg 09/03/20 10:06 Synthroid - PO AM DOM Montelukast Sodium 10 mg 09/03/20 22:00 Singulair - PO HS DOM Non-Formulary Medication 290 mcg 09/03/20 10:00 Linaclotide [Linzess] PO Q2D DOM Non-Formulary Medication 1 each 09/03/20 14:00 Lipase/Protease/Amylase [Zenpep Dr 40,000 Unit Capsule] PO TID DOM Pantoprazole Sodium 40 mg 09/03/20 10:00 Protonix - PO DAILY DOM Polyethylene Glycol 17 gm 09/03/20 10:00 Miralax (For Daily Use) - PO DAILY DOM Potassium Chloride 10 meq 09/03/20 10:00 K-Dur - PO DAILY DOM Sacubitril/Valsartan 1 tab 09/03/20 10:00 Entresto 24 Mg-26 Mg Tablet PO BID DOM Spironolactone 25 mg 09/03/20 10:00 Aldactone - PO DAILY [facility] Tiotropium [place] 2 puff 09/03/20 10:00 Spiriva Respimat IH DAILY [facility] Family Medical History Family History: Denies (no known cmp) Review of Systems - Review of Systems Constitutional: denies: Chills, Fever Eyes: denies: Eye Pain HENT: denies: Nasal Congestion Neck: denies: Stiffness Cardiovascular: denies: Palpitations Respiratory: denies: Orthopnea, PND Gastrointestinal: denies: Diarrhea, Rectal Bleeding Genitourinary: denies: Burning, Hematuria Musculoskeletal: denies: Muscle Pain Integumentary: denies: Rash Neurological: denies: Numbness, Seizure, Syncope Endocrine: denies: Excessive Sweating Hematology/Lymphatic: denies: Excessive Bleeding Vital Signs: Vital Signs Period Temp Pulse Resp BP Sys/Mcgrath Pulse Ox Last 24 Hr 97.8 F-99.2 F 80-89 18-24 101-124/61-98 90-100 Constitutional: Yes: Well Nourished, No Distress, Obese Eyes: No: Sclera Icterus HENT: No: Nasal Congestion Neck: No: Decreased ROM Respiratory: Yes: CTA Bilaterally. No: Accessory Muscle Use, Rales, Wheezes Gastrointestinal: Yes: Normal Bowel Sounds. No: Distention, Hepatomegaly, Palpable Mass, Tenderness Cardiovascular: Yes: Regular Rate and Rhythm JVD: No Heart Sounds: Yes: S1, S2. No: Gallop Murmur: No: Systolic Murmur, Diastolic Murmur Musculoskeletal: Yes: Other (No kyphosis) Extremities: No: Cool, Cyanosis Edema: no Integumentary: No: Jaundice Neurological: Yes: Alert, Oriented (x3) Psychiatric: No: Agitated Laboratory Last Values WBC 9.6 K/mm3 (4.0-10.0) 09/02/20 21:04 RBC 3.91 M/mm3 (3.60-5.2) 09/02/20 21:04 Hgb 10.0 GM/dL (10.7-15.3) L 09/02/20 21:04 Hct 32.0 % (32.4-45.2) L 09/02/20 21:04 MCV 81.8 fl (80-96) 09/02/20 21:04 MCH 25.7 pg (25.7-33.7) 09/02/20 21:04 MCHC 31.4 g/dl (32.0-36.0) L 09/02/20 21:04 RDW 17.8 % (11.6-15.6) H 09/02/20 21:04 Plt Count 292 K/MM3 (134-434) D 09/02/20 21:04 MPV 9.8 fl (7.5-11.1) 09/02/20 21:04 Absolute Neuts (auto) 6.8 K/mm3 (1.5-8.0) 09/02/20 21:04 Neutrophils % 71.0 % (42.8-82.8) 09/02/20 21:04 Lymphocytes % 21.6 % (8-40) D 09/02/20 21:04 Monocytes % 5.9 % (3.8-10.2) 09/02/20 21:04 Eosinophils % 0.6 % (0-4.5) D 09/02/20 21:04 Basophils % 0.9 % (0-2.0) 09/02/20 21:04 Nucleated RBC % 0 % (0-0) 09/02/20 21:04 Sodium 136 mmol/L (136-145) 09/02/20 21:04 Potassium 4.0 mmol/L (3.5-5.1) 09/02/20 21:04 Chloride 100 mmol/L (98-107) 09/02/20 21:04 Carbon Dioxide 26 mmol/L (21-32) 09/02/20 21:04 Anion Gap 10 MMOL/L (8-16) 09/02/20 21:04 BUN 10.3 mg/dL (7-18) 09/02/20 21:04 Creatinine 1.3 mg/dL (0.55-1.3) 09/02/20 21:04 Est GFR (CKD-EPI)AfAm 51.64 09/02/20 21:04 Est GFR (CKD-EPI)NonAf 44.55 09/02/20 21:04 Random Glucose 252 mg/dL (74-106) H 09/02/20 21:04 Calcium 8.5 mg/dL (8.5-10.1) 09/02/20 21:04 Total Bilirubin 0.4 mg/dL (0.2-1) 09/02/20 21:04 AST 11 U/L (15-37) L 09/02/20 21:04 ALT 10 U/L (13-61) L 09/02/20 21:04 Alkaline Phosphatase 87 U/L (45-117) 09/02/20 21:04 Creatine Kinase 171 U/L (26-192) 09/02/20 21:04 Creatine Kinase Index No Result Required. 09/02/20 21:04 CK-MB (CK-2) < 1.0 ng/mL (0.5-3.6) 09/02/20 21:04 Troponin I 0.30 ng/ml (0.00-0.05) H 09/03/20 00:00 B-Natriuretic Peptide 5586.3 pg/ml (5-125) H 09/02/20 21:04 Total Protein 6.7 g/dl (6.4-8.2) 09/02/20 21:04 Albumin 3.3 g/dl (3.4-5.0) L 09/02/20 21:04 Cardiac Catheterization 2019 non-obstructive CAD echo 05/2019 tds, mildly dilated LV, severe global hypok, RV nl CXR: mild chf EKG: sinus, old LBBB tele: sinus IMP/PLAN: Acute on chronic systolic CHF: Mild exacerbation -Pt had leonardo/hypotension with lasix 40/20 alt days but then had vol buildup on lasix 20 qd so will perhaps on dc would try 20 qd with close monitoring of wt and sxs at home with plan to take 40 if wt up or chf sxs. -cont iv lasix for now, daily chem7, wts -Cont Toprol/Entresto, aldactone elevated trop: - indeterminate range, flat trend, nl ck, similar to prior baseline values, not c/w acs HTN: - cont home meds paroxysmal afib - in sinus --cont home bb - cont home eliquis for AC (5 bid) hld: -cont statin
[2020-09-03] MEDS: APIXABAN 5 MG TABLET PO SCH ×2 (10:41→21:25)
[2020-09-03] MEDS: POTASSIUM CHLORIDE TABS 10 MEQ TABLET.ER (FP) PO SCH (10:41)
[2020-09-03] MEDS: CARVEDILOL 6.25 MG TABLET (FP) PO SCH ×2 (10:41→21:25)
[2020-09-03] MEDS: SACUBITRIL/VALSARTAN 24 MG-26 MG TABLET PO SCH ×2 (10:41→21:25)
[2020-09-03] MEDS: PANTOPRAZOLE 40 MG TABLET PO SCH (10:41)
[2020-09-03] MEDS: TIOTROPIUM BROMIDE 2.5 MCG (SPIRIVA) RESPIMAT INHALER IH SCH (10:42)
[2020-09-03] MEDS: SPIRONOLACTONE 25 MG TABLET PO SCH (10:42)
[2020-09-03] MEDS: POLYETHYLENE GLYCOL 3350 119 GM BTL PO SCH (10:44)
[2020-09-03] MEDS: INSULIN SLIDING SCALE (NOVOLOG) 1 VIAL SQ SCH ×3 (11:55→21:26)
[2020-09-03] MEDS: BUDESONIDE/FORMETEROL FUMARATE 160/4.5 mcg INHALER IH SCH ×2 (12:58→21:27)
[2020-09-03] MEDS ORDERED: PT OWN MED DRAWER 7, Y5N ONE ×2 (13:52→20:13)
[2020-09-03] MEDS: FUROSEMIDE 40 MG/4 ML INJECTABLE VIAL IVPUSH SCH (14:36)
--- NOTE | 2020-09-03 16:55 | HP ---
Admitting History and Physical - Past Medical History Cardiovascular: Yes: AFIB, CHF, HTN, Hyperlipdemia Pulmonary: Yes: Asthma, Bronchitis, Pneumonia, Pulmonary Embolus, Sleep Apnea Gastrointestinal: Yes: Other (multiple incisional hernias) Renal/: Yes: Renal Failure ...LMP: 09/02/20 ...: No Heme/Onc: Yes: Anemia Endocrine: Yes: Diabetes Mellitus, Hypothyroidism - Past Surgical History Past Surgical History: Yes: Cholecystectomy, Joint Replacement (left tkr), Permanent Pacemaker (ICD) - Smoking History Smoking history: Never smoked Have you smoked in the past 12 months: No Aproximately how many cigarettes per day: 0 - Alcohol/Substance Use Hx Alcohol Use: No - Social History ADL: Independent History of Recent Travel: No Home Medications - Allergies Allergies/Adverse Reactions: Allergies Allergy/AdvReac Type Severity Reaction Status Date / Time tomato Allergy Mild Hives Verified 08/01/20 17:03 chlorpheniramine Allergy Verified 08/01/20 17:03 cimetidine Allergy Verified 08/01/20 17:03 codeine [Codeine] Allergy Verified 08/01/20 17:03 ibuprofen Allergy Verified 08/01/20 17:03 latex [Latex] Allergy Verified 08/01/20 17:03 Latex, Natural Rubber Allergy Verified 08/01/20 17:03 pseudoephedrine Allergy Verified 08/01/20 17:03 salmeterol xinafoate Allergy Verified 08/01/20 17:03 [From Advair Diskus] shellfish derived Allergy Verified 08/01/20 17:03 Sulfa (Sulfonamide Allergy Verified 08/01/20 17:03 Antibiotics) [Sulfa(Sulfonamide Antibiotics)] Chocolate Allergy Mild Hives Uncoded 08/01/20 17:03 shrimp Allergy Mild Hives Uncoded 08/01/20 17:03 - Home Medications Home Medications: Ambulatory Orders Insulin Glargine,Hum.rec.anlog [Lantus Solostar PEN -] 26 units SQ AM 08/09/16 Budesonide/Formeterol Fumarate [SYMBICORT 160/4.5mcg -] 2 puff PO BID 10/14/16 Albuterol 2.5/Ipratropium 0.5 [Duoneb -] 1 amp NEB Q6H PRN #90 amp 05/21/19 Levothyroxine [Synthroid -] 75 mcg PO DAILY #30 tablet 05/21/19 Insulin Glargine,Hum.rec.anlog [Lantus Solostar PEN -] 10 units SQ HS 08/13/19 Metoprolol Succinate [Toprol XL -] 25 mg PO DAILY 10/10/19 Apixaban [Eliquis -] 5 mg PO BID 11/02/19 Linaclotide [Linzess] 290 mcg PO Q2D 11/02/19 Sacubitril/Valsartan [Entresto 24 mg-26 mg Tablet] 1 each PO BID 11/02/19 Spironolactone [Aldactone -] 25 mg PO DAILY tablet 12/13/19 Potassium Chloride 10 meq PO DAILY 01/15/20 Pregabalin [Lyrica -] 25 mg PO BID 01/15/20 Tiotropium [place] [Spiriva Respimat] 2 puff IH DAILY #1 mist.inhal 01/15/20 Albuterol 0.083% Nebulizer [place] [Ventolin 0.083% Nebulizer Soln -] 1 amp NEB Q4H PRN #0 amp 01/20/20 Montelukast Na [Singulair -] 10 mg PO HS #30 tablet 01/20/20 Pantoprazole Sodium [Protonix -] 40 mg PO DAILY #30 tablet.ec 01/20/20 Furosemide [Lasix -] 20 mg PO DAILY tablet 07/11/20 Ethyl Chloride 100 ml TP QID 10 Days #1 spray 08/01/20 Atorvastatin Ca [Lipitor] 80 mg PO HS 09/03/20 Carvedilol [Coreg] 6.25 mg PO BID 09/03/20 Dexlansoprazole [Dexilant] 60 mg PO DAILY 09/03/20 Lipase/Protease/Amylase [Zenpep Dr 40,000 Units Capsule] 1 each PO TID 09/03/20 Magnesium Hydroxide [Milk of Magnesia] 400 mg PO DAILY 09/03/20 Polyethylene Glycol 3350 [Miralax 119 gm Btl -] 17 mg PO DAILY 09/03/20 Tiotropium [place] [Spiriva Respimat] 4 gm IH DAILY 09/03/20 Tramadol HCl 50 mg PO Q8H 09/03/20 metroNIDAZOLE [Metronidazole] 250 mg PO TID 09/03/20 Physical Examination Vital Signs: Vital Signs Temperature 98.4 F 09/03/20 13:00 Pulse Rate 87 09/03/20 13:00 Respiratory Rate 18 09/03/20 13:00 Blood Pressure 102/72 09/03/20 13:00 O2 Sat by Pulse Oximetry (%) 98 09/03/20 13:00 Labs: CBC, BMP 09/02/20 21:04 09/02/20 21:04
--- NOTE | 2020-09-03 20:01 | EKG ---
Test Reason : Blood Pressure : / mmHG Vent. Rate : 084 BPM Atrial Rate : 084 BPM P-R Int : 142 ms QRS Dur : 122 ms QT Int : 452 ms P-R-T Axes : 062 -24 090 degrees QTc Int : 534 ms SINUS RHYTHM WITH PREMATURE VENTRICULAR COMPLEXES LEFT BUNDLE BRANCH BLOCK ABNORMAL ECG WHEN COMPARED WITH ECG OF 01-AUG-2020 17:01, PREMATURE VENTRICULAR COMPLEXES ARE NOW PRESENT T WAVE VARIATION Confirmed by MARILOU MILLER, ANMOL ([id number]) on 09/03/2020 8:01:41 PM Referred By: Confirmed By:ANMOL ZAMARRIPA MD
[2020-09-03] MEDS ORDERED: INSULIN SLIDING SCALE (NOVOLOG) 1 VIAL SQ ONE (21:17)
[2020-09-03] MEDS ORDERED: ATORVASTATIN CA 80 MG TABLET (FP) ONE (21:17)
[2020-09-03] MEDS ORDERED: MONTELUKAST NA 10 MG TABLET ONE (21:17)
[2020-09-03] MEDS ORDERED: INSULIN (LEVEMIR) 100 UNITS/ML UNITS SQ ONE (21:17)
[2020-09-03] MEDS: INSULIN (LEVEMIR) 100 UNITS/ML UNITS SQ SCH (21:26)
[2020-09-03] MEDS ORDERED: MONTELUKAST NA 10 MG TABLET PO SCH (22:00)
[2020-09-03] MEDS ORDERED: ATORVASTATIN CA 80 MG TABLET (FP) PO SCH (22:00)
[2020-09-04] MEDS ORDERED: LEVOTHYROXINE NA 75 MCG TABLET (FP) ONE (05:53)
[2020-09-04] MEDS: FUROSEMIDE 40 MG/4 ML INJECTABLE VIAL IVPUSH SCH ×2 (06:15→14:27)
[2020-09-04] MEDS: INSULIN SLIDING SCALE (NOVOLOG) 1 VIAL SQ SCH ×5 (06:24→22:46)
[2020-09-04 07:05] LABS: BASO % 0.6 % (0-2.0); HEMATOCRIT 33.1 % (32.4-45.2); HEMOGLOBIN 10.6 GM/dL (10.7-15.3); LYMPH % 29.1 % (8-40); MCH 26.1 pg (25.7-33.7); MEAN CELL VOLUME 81.6 fl (80-96); MEAN PLT VOLUME 9.9 fl (7.5-11.1); NEUT % 62.3 % (42.8-82.8); PLATELET COUNT 296 K/MM3 (134-434); RBC 4.05 M/mm3 (3.60-5.2); RDW 17.9 % (11.6-15.6); WHITE BLOOD COUNT 6.5 K/mm3 (4.0-10.0)
[2020-09-04 07:29] LABS: ALBUMIN 3.1 g/dl (3.4-5.0); BILIRUBIN,TOTAL 0.7 mg/dL (0.2-1); BLOOD UREA NITROGEN 11.1 mg/dL (7-18); CALCIUM 9.1 mg/dL (8.5-10.1); CREATININE 1.2 mg/dL (0.55-1.3); POTASSIUM 3.9 mmol/L (3.5-5.1); TOT PROT 6.4 g/dl (6.4-8.2)
[2020-09-04] MEDS ORDERED: SPIRONOLACTONE 25 MG TABLET ONE (09:06)
[2020-09-04] MEDS ORDERED: POTASSIUM CHLORIDE TABS 10 MEQ TABLET.ER (FP) ONE (09:07)
[2020-09-04] MEDS ORDERED: APIXABAN 5 MG TABLET ONE (09:07)
[2020-09-04] MEDS ORDERED: PANTOPRAZOLE 40 MG TABLET ONE (09:08)
[2020-09-04] MEDS ORDERED: CARVEDILOL 6.25 MG TABLET (FP) ONE (09:08)
[2020-09-04] MEDS: CARVEDILOL 6.25 MG TABLET (FP) PO SCH ×2 (09:10→22:45)
[2020-09-04] MEDS: PANTOPRAZOLE 40 MG TABLET PO SCH (09:10)
[2020-09-04] MEDS: SPIRONOLACTONE 25 MG TABLET PO SCH (09:10)
[2020-09-04] MEDS: POTASSIUM CHLORIDE TABS 10 MEQ TABLET.ER (FP) PO SCH (09:10)
[2020-09-04] MEDS: APIXABAN 5 MG TABLET PO SCH ×2 (09:10→22:49)
[2020-09-04] MEDS: BUDESONIDE/FORMETEROL FUMARATE 160/4.5 mcg INHALER IH SCH ×2 (09:21→22:47)
[2020-09-04] MEDS: TIOTROPIUM BROMIDE 2.5 MCG (SPIRIVA) RESPIMAT INHALER IH SCH (09:21)
[2020-09-04] MEDS: POLYETHYLENE GLYCOL 3350 119 GM BTL PO SCH (09:21)
--- NOTE | 2020-09-04 11:03 | PN ---
Progress Note (short form) - Note Progress Note: cc: sob s: mild sob,improving, no cp palps dizzy Current Medications Generic Name Dose Route Start Last Admin Trade Name Freq PRN Reason Stop Dose Admin Albuterol Sulfate 1 amp 09/03/20 09:35 Ventolin 0.083% Nebulizer Soln - NEB Q4H PRN SHORT OF BREATH/WHEEZING Apixaban 5 mg 09/03/20 10:00 09/04/20 09:10 Eliquis - PO 5 mg BID DOM Administration Atorvastatin Calcium 80 mg 09/03/20 22:00 09/03/20 21:25 Lipitor - PO 80 mg HS DOM Administration Budesonide/Formoterol Fumarate 2 puff 09/03/20 10:00 09/04/20 09:21 Symbicort 160/4.5mcg - IH 2 puff BID DOM Administration Carvedilol 6.25 mg 09/03/20 10:00 09/04/20 09:10 Coreg - PO 6.25 mg BID DOM Administration Furosemide 40 mg 09/03/20 14:00 09/04/20 06:15 Lasix Injection - IVPUSH 40 mg BID@0600,1400 DOM Administration Insulin Aspart 1 vial 09/03/20 11:00 09/04/20 06:24 Novolog Vial Sliding Scale - SQ 2 unit ACHS DOM Administration Protocol Insulin Detemir 26 units 09/03/20 22:00 09/03/20 21:26 Levemir Vial SQ 26 units HS DOM Administration Levothyroxine Sodium 75 mcg 09/03/20 10:06 09/04/20 06:15 Synthroid - PO 75 mcg AM DOM Administration Montelukast Sodium 10 mg 09/03/20 22:00 09/03/20 21:25 Singulair - PO 10 mg HS DOM Administration Non-Formulary Medication 290 mcg 09/03/20 10:00 Linaclotide [Linzess] PO Q2D DOM Non-Formulary Medication 1 each 09/03/20 14:00 Lipase/Protease/Amylase [Zenpep Dr 40,000 Unit Capsule] PO TID DOM Pantoprazole Sodium 40 mg 09/03/20 10:00 09/04/20 09:10 Protonix - PO 40 mg DAILY DOM Administration Polyethylene Glycol 17 gm 09/03/20 10:00 09/04/20 09:21 Miralax (For Daily Use) - PO Not Given DAILY DOM Potassium Chloride 10 meq 09/03/20 10:00 09/04/20 09:10 K-Dur - PO 10 meq DAILY DOM Administration Sacubitril/Valsartan 1 tab 09/03/20 10:00 09/03/20 21:25 Entresto 24 Mg-26 Mg Tablet PO 1 tab BID DOM Administration Spironolactone 25 mg 09/03/20 10:00 09/04/20 09:10 Aldactone - PO 25 mg DAILY DOM Administration Tiotropium [place] 2 puff 09/03/20 10:00 09/04/20 09:21 Spiriva Respimat IH 2 puff DAILY DOM Administration Vital Signs Period Temp Pulse Resp BP Sys/Mcgrath Pulse Ox Last 24 Hr 98 F-98.7 F 77-93 18-18 97-120/60-72 93-98 Constitutional: Yes: Well Nourished, No Distress, Obese Eyes: No: Sclera Icterus HENT: No: Nasal Congestion Neck: No: Decreased ROM Respiratory: Yes: CTA Bilaterally. No: Accessory Muscle Use, Rales, Wheezes Gastrointestinal: Yes: Normal Bowel Sounds. No: Distention, Hepatomegaly, Palpable Mass, Tenderness Cardiovascular: Yes: Regular Rate and Rhythm JVD: No Heart Sounds: Yes: S1, S2. No: Gallop Murmur: No: Systolic Murmur, Diastolic Murmur Musculoskeletal: Yes: Other (No kyphosis) Extremities: No: Cool, Cyanosis Edema: no Integumentary: No: Jaundice Neurological: Yes: Alert, Oriented (x3) Psychiatric: No: Agitated CBC, BMP 09/04/20 06:15 09/04/20 06:15 Cardiac Catheterization 2019 non-obstructive CAD echo 05/2019 tds, mildly dilated LV, severe global hypok, RV nl CXR: mild chf EKG: sinus, old LBBB tele: sinus IMP/PLAN: Acute on chronic systolic CHF: Mild exacerbation -Pt had leonardo/hypotension with lasix 40/20 alt days but then had vol buildup on lasix 20 qd so will perhaps on dc would try 20 qd with close monitoring of wt and sxs at home with plan to take 40 if wt up or chf sxs. -cont iv lasix for now, daily chem7, wts -Cont Toprol/Entresto, aldactone elevated trop: - indeterminate range, flat trend, nl ck, similar to prior baseline values, not c/w acs HTN: - cont home meds paroxysmal afib - in sinus --cont home bb - cont home eliquis for AC (5 bid) hld: -cont statin
[2020-09-04] MEDS ORDERED: PT OWN MED DRAWER 7, Y5N ONE ×3 (11:22→14:31)
[2020-09-04] MEDS: SACUBITRIL/VALSARTAN 24 MG-26 MG TABLET PO SCH ×2 (12:18→22:46)
[2020-09-04] MEDS ORDERED: FUROSEMIDE 40 MG/4 ML INJECTABLE VIAL ONE (14:26)
[2020-09-04] MEDS ORDERED: ALBUTEROL SO4 0.083% IH SOL 2.5 MG/3 ML VIAL.NEB. NEB ONE (20:15)
[2020-09-04] MEDS: ALBUTEROL SO4 0.083% IH SOL 2.5 MG/3 ML VIAL.NEB. NEB PRN (21:00)
[2020-09-04] MEDS: INSULIN (LEVEMIR) 100 UNITS/ML UNITS SQ SCH ×2 (22:03→22:46)
[2020-09-04] MEDS: ATORVASTATIN CA 80 MG TABLET (FP) PO SCH (22:49)
[2020-09-04] MEDS: MONTELUKAST NA 10 MG TABLET PO SCH (22:50)
--- NOTE | 2020-09-04 23:04 | PN ---
Progress Note, Physician History of Present Illness: Pt w/ some SOB w/ ambulating to bathroom - Current Medication List Current Medications: Active Medications Albuterol Sulfate (Ventolin 0.083% Nebulizer Soln -) 1 amp NEB Q4H PRN PRN Reason: SHORT OF BREATH/WHEEZING Last Admin: 09/04/20 21:00 Dose: 1 amp Documented by: Apixaban (Eliquis -) 5 mg PO BID [facility] Last Admin: 09/04/20 22:49 Dose: 5 mg Documented by: Atorvastatin Calcium (Lipitor -) 80 mg PO [facility] Last Admin: 09/04/20 22:49 Dose: 80 mg Documented by: Budesonide/Formoterol Fumarate (Symbicort 160/4.5mcg -) 2 puff IH BID [facility] Last Admin: 09/04/20 22:47 Dose: 2 puff Documented by: Carvedilol (Coreg -) 6.25 mg PO BID [facility] Last Admin: 09/04/20 22:45 Dose: Not Given Documented by: Furosemide (Lasix Injection -) 40 mg IVPUSH BID@0600,1400 [facility] Last Admin: 09/04/20 14:27 Dose: 40 mg Documented by: Insulin Aspart (Novolog Vial Sliding Scale -) 1 vial SQ [facility]; Protocol Last Admin: 09/04/20 22:46 Dose: 2 unit Documented by: Insulin Detemir (Levemir Vial) 26 units SQ [facility] Last Admin: 09/04/20 22:46 Dose: 26 unit Documented by: Levothyroxine Sodium (Synthroid -) 75 mcg PO AM [facility] Last Admin: 09/04/20 06:15 Dose: 75 mcg Documented by: Montelukast Sodium (Singulair -) 10 mg PO [facility] Last Admin: 09/04/20 22:50 Dose: 10 mg Documented by: Non-Formulary Medication (Linaclotide [Linzess]) 290 mcg PO Q2D [facility] Pancrelipase ([place] Dr 36,000 Units Capsule) 1 cap PO TIDCM [facility] Pantoprazole Sodium (Protonix -) 40 mg PO DAILY [facility] Last Admin: 09/04/20 09:10 Dose: 40 mg Documented by: Polyethylene Glycol (Miralax (For Daily Use) -) 17 gm PO DAILY [facility] Last Admin: 09/04/20 09:21 Dose: Not Given Documented by: Potassium Chloride (K-Dur -) 10 meq PO DAILY [facility] Last Admin: 09/04/20 09:10 Dose: 10 meq Documented by: Sacubitril/Valsartan (Entresto 24 Mg-26 Mg Tablet) 1 tab PO BID [facility] Last Admin: 09/04/20 22:46 Dose: Not Given Documented by: Spironolactone (Aldactone -) 25 mg PO DAILY [facility] Last Admin: 09/04/20 09:10 Dose: 25 mg Documented by: Tiotropium [place] (Spiriva Respimat) 2 puff IH DAILY [facility] Last Admin: 09/04/20 09:21 Dose: 2 puff Documented by: - Objective Vital Signs: Vital Signs Temperature 97.8 F 09/04/20 18:00 Pulse Rate 91 H 09/04/20 18:00 Respiratory Rate 18 09/04/20 18:00 Blood Pressure 109/53 L 09/04/20 18:00 O2 Sat by Pulse Oximetry (%) 98 09/04/20 21:30 Neck: Yes: WNL, Supple Cardiovascular: Yes: WNL, Regular Rate and Rhythm Respiratory: Yes: Other (fine bibasilar rales) Gastrointestinal: Yes: WNL, Normal Bowel Sounds, Soft, Abdomen, Obese Labs: CBC, BMP 09/04/20 06:15 09/04/20 06:15 Problem List - Problems (1) Acute on chronic systolic (congestive) heart failure Assessment/Plan: Lasix dose being adjusted due to hypotension Monitor electrolytes Cont entresto/coreg/spironolactone Code(s): I50.23 - ACUTE ON CHRONIC SYSTOLIC (CONGESTIVE) HEART FAILURE (2) Hypertension Assessment/Plan: Cont to monitor BP Code(s): I10 - ESSENTIAL (PRIMARY) HYPERTENSION Qualifiers: (3) Paroxysmal A-fib Assessment/Plan: Heart rate stable Cont eliquis Code(s): I48.0 - PAROXYSMAL ATRIAL FIBRILLATION (4) COPD (chronic obstructive pulmonary disease) Assessment/Plan: Cont spireva/ventolin nebulizer Code(s): J44.9 - CHRONIC OBSTRUCTIVE PULMONARY DISEASE, UNSPECIFIED (5) Cardiomyopathy Code(s): I42.9 - CARDIOMYOPATHY, UNSPECIFIED (6) Diabetes Assessment/Plan: Cont levemir Cont sliding scale w/ coverage Code(s): E11.9 - TYPE 2 DIABETES MELLITUS WITHOUT COMPLICATIONS (7) Elevated troponin Assessment/Plan: Due to demand ischemia Code(s): R79.89 - OTHER SPECIFIED ABNORMAL FINDINGS OF BLOOD CHEMISTRY (8) Hyperlipidemia Assessment/Plan: Cont lipitor Code(s): E78.5 - HYPERLIPIDEMIA, UNSPECIFIED (9) Hypothyroidism Assessment/Plan: Cont levothyroxine Code(s): E03.9 - HYPOTHYROIDISM, UNSPECIFIED (10) ICD (implantable cardioverter-defibrillator) in place Code(s): Z95.810 - PRESENCE OF AUTOMATIC (IMPLANTABLE) CARDIAC DEFIBRILLATOR (11) Morbid obesity Code(s): E66.01 - MORBID (SEVERE) OBESITY DUE TO EXCESS CALORIES (12) CAD (coronary artery disease) Code(s): I25.10 - ATHSCL HEART DISEASE OF [place] CORONARY ARTERY W/O ANG PCTRS
[2020-09-05] MEDS: INSULIN SLIDING SCALE (NOVOLOG) 1 VIAL SQ SCH ×4 (06:25→21:30)
[2020-09-05] MEDS: LEVOTHYROXINE NA 75 MCG TABLET (FP) PO SCH (06:25)
[2020-09-05] MEDS: FUROSEMIDE 40 MG/4 ML INJECTABLE VIAL IVPUSH SCH ×2 (06:25→14:13)
[2020-09-05] MEDS: ALBUTEROL SO4 0.083% IH SOL 2.5 MG/3 ML VIAL.NEB. NEB PRN ×2 (07:42→20:41)
[2020-09-05] MEDS ORDERED: PT OWN MED DRAWER 7, Y5N ONE ×2 (08:57→13:25)
[2020-09-05] MEDS: LIPASE/PROTEASE/AMYLASE 36,000 UNIT CAPSULE PO SCH ×3 (09:10→17:33)
[2020-09-05] MEDS: POLYETHYLENE GLYCOL 3350 119 GM BTL PO SCH ×2 (09:11→09:18)
[2020-09-05] MEDS: CARVEDILOL 6.25 MG TABLET (FP) PO SCH ×2 (09:11→21:30)
[2020-09-05] MEDS: APIXABAN 5 MG TABLET PO SCH ×2 (09:11→21:30)
[2020-09-05] MEDS: SACUBITRIL/VALSARTAN 24 MG-26 MG TABLET PO SCH ×2 (09:11→21:30)
[2020-09-05 09:56] LABS: ANION GAP 9 MMOL/L (8-16); BLOOD UREA NITROGEN 11.4 mg/dL (7-18); CALCIUM 9.3 mg/dL (8.5-10.1); CHLORIDE 97 mmol/L (98-107); CO2 30 mmol/L (21-32); GLUCOSE,RANDOM 169 mg/dL (74-106); POTASSIUM 3.5 mmol/L (3.5-5.1); SODIUM 136 mmol/L (136-145)
[2020-09-05] MEDS ORDERED: APIXABAN 5 MG TABLET PO SCH (10:00)
[2020-09-05 10:02] LABS: CREATININE 1.3 mg/dL (0.55-1.3)
[2020-09-05] MEDS: BUDESONIDE/FORMETEROL FUMARATE 160/4.5 mcg INHALER IH SCH ×2 (10:16→21:31)
[2020-09-05] MEDS: TIOTROPIUM BROMIDE 2.5 MCG (SPIRIVA) RESPIMAT INHALER IH SCH (10:17)
--- NOTE | 2020-09-05 11:45 | PN ---
Progress Note (short form) - Note Progress Note: cc: sob s: still a little short of breath when walking, improving. no chest pain, palps, edema Current Medications Generic Name Dose Route Start Last Admin Trade Name Freq PRN Reason Stop Dose Admin Albuterol Sulfate 1 amp 09/03/20 09:35 09/05/20 07:42 Ventolin 0.083% Nebulizer Soln - NEB 1 amp Q4H PRN Administration SHORT OF BREATH/WHEEZING Apixaban 5 mg 09/04/20 22:00 09/05/20 09:11 Eliquis - PO 5 mg BID DOM Administration Atorvastatin Calcium 80 mg 09/04/20 22:00 09/04/20 22:49 Lipitor - PO 80 mg HS DOM Administration Budesonide/Formoterol Fumarate 2 puff 09/04/20 22:00 09/05/20 10:16 Symbicort 160/4.5mcg - IH 2 puff BID DOM Administration Carvedilol 6.25 mg 09/04/20 22:00 09/05/20 09:11 Coreg - PO 6.25 mg BID DOM Administration Furosemide 40 mg 09/05/20 06:15 09/05/20 06:25 Lasix Injection - IVPUSH 40 mg BID@0600,1400 DOM Administration Insulin Aspart 1 vial 09/04/20 22:00 09/05/20 11:35 Novolog Vial Sliding Scale - SQ 4 unit ACHS DOM Administration Protocol Insulin Detemir 26 units 09/04/20 22:00 09/04/20 22:46 Levemir Vial SQ 26 unit HS DOM Administration Levothyroxine Sodium 75 mcg 09/05/20 07:00 09/05/20 06:25 Synthroid - PO 75 mcg AM DOM Administration Montelukast Sodium 10 mg 09/04/20 22:00 09/04/20 22:50 Singulair - PO 10 mg HS DOM Administration Non-Formulary Medication 290 mcg 09/03/20 10:00 Linaclotide [Linzess] PO Q2D DOM Pancrelipase 1 cap 09/05/20 08:00 09/05/20 09:10 Gildardo Goodman 36,000 Units Capsule PO 1 cap TIDCM DOM Administration Pantoprazole Sodium 40 mg 09/03/20 10:00 09/04/20 09:10 Protonix - PO 40 mg DAILY DOM Administration Polyethylene Glycol 17 gm 09/03/20 10:00 09/05/20 09:18 Miralax (For Daily Use) - PO Not Given DAILY DOM Potassium Chloride 10 meq 09/03/20 10:00 09/04/20 09:10 K-Dur - PO 10 meq DAILY DOM Administration Sacubitril/Valsartan 1 tab 09/04/20 22:00 09/05/20 09:11 Entresto 24 Mg-26 Mg Tablet PO 1 tab BID DOM Administration Spironolactone 25 mg 09/03/20 10:00 09/04/20 09:10 Aldactone - PO 25 mg DAILY DOM Administration Tiotropium [place] 2 puff 09/03/20 10:00 09/05/20 10:17 Spiriva Respimat IH 2 puff DAILY DOM Administration Vital Signs Period Temp Pulse Resp BP Sys/Mcgrath Pulse Ox Last 24 Hr 97.5 F-98.3 F 77-91 16-18 96-126/53-85 96-100 Constitutional: Yes: Well Nourished, No Distress, Obese Eyes: No: Sclera Icterus HENT: No: Nasal Congestion Neck: No: Decreased ROM Respiratory: Yes: CTA Bilaterally. No: Accessory Muscle Use, Rales, Wheezes Gastrointestinal: Yes: Normal Bowel Sounds. No: Distention, Hepatomegaly, Palpable Mass, Tenderness Cardiovascular: Yes: Regular Rate and Rhythm JVD: No Heart Sounds: Yes: S1, S2. No: Gallop Murmur: No: Systolic Murmur, Diastolic Murmur Musculoskeletal: Yes: Other (No kyphosis) Extremities: No: Cool, Cyanosis Edema: no Integumentary: No: Jaundice Neurological: Yes: Alert, Oriented (x3) Psychiatric: No: Agitated Cardiac Catheterization 2019 non-obstructive CAD echo 05/2019 tds, mildly dilated LV, severe global hypok, RV nl CXR: mild chf EKG: sinus, old LBBB tele: sinus, PVCs IMP/PLAN: Acute on chronic systolic CHF -Pt had leonardo/hypotension with lasix 40/20 alt days but then had vol buildup on lasix 20 qd so will perhaps on dc would try 20 qd with close monitoring of wt and sxs at home with plan to take 40 if wt up or chf sxs -sob improving, not at baseline -cont iv lasix for now, daily chem7, wts -Cont Toprol/Entresto, aldactone elevated trop: - indeterminate range, flat trend, nl ck, similar to prior baseline values, not c/w acs HTN: - cont home meds paroxysmal afib - in sinus --cont home bb - cont home eliquis 5 mg BID hld: -cont statin
[2020-09-05] MEDS ORDERED: ONDANSETRON 4 MG/2 ML VIAL IVPUSH ONE (13:00)
[2020-09-05] MEDS: SPIRONOLACTONE 25 MG TABLET PO SCH (14:13)
[2020-09-05] MEDS: POTASSIUM CHLORIDE TABS 10 MEQ TABLET.ER (FP) PO SCH (14:13)
[2020-09-05] MEDS: PANTOPRAZOLE 40 MG TABLET PO SCH (14:13)
[2020-09-05 14:55] VITALS: BMI 40.3
--- NOTE | 2020-09-05 16:00 | PN ---
Progress Note, Physician History of Present Illness: stable - Current Medication List Current Medications: Active Medications Albuterol Sulfate (Ventolin 0.083% Nebulizer Soln -) 1 amp NEB Q4H PRN PRN Reason: SHORT OF BREATH/WHEEZING Last Admin: 09/05/20 07:42 Dose: 1 amp Documented by: Apixaban (Eliquis -) 5 mg PO BID [facility] Last Admin: 09/05/20 09:11 Dose: 5 mg Documented by: Atorvastatin Calcium (Lipitor -) 80 mg PO [facility] Last Admin: 09/04/20 22:49 Dose: 80 mg Documented by: Budesonide/Formoterol Fumarate (Symbicort 160/4.5mcg -) 2 puff IH BID [facility] Last Admin: 09/05/20 10:16 Dose: 2 puff Documented by: Carvedilol (Coreg -) 6.25 mg PO BID [facility] Last Admin: 09/05/20 09:11 Dose: 6.25 mg Documented by: Furosemide (Lasix Injection -) 40 mg IVPUSH BID@0600,1400 [facility] Last Admin: 09/05/20 14:13 Dose: 40 mg Documented by: Insulin Aspart (Novolog Vial Sliding Scale -) 1 vial SQ [facility]; Protocol Last Admin: 09/05/20 11:35 Dose: 4 unit Documented by: Insulin Detemir (Levemir Vial) 26 units SQ [facility] Last Admin: 09/04/20 22:46 Dose: 26 unit Documented by: Levothyroxine Sodium (Synthroid -) 75 mcg PO AM [facility] Last Admin: 09/05/20 06:25 Dose: 75 mcg Documented by: Montelukast Sodium (Singulair -) 10 mg PO [facility] Last Admin: 09/04/20 22:50 Dose: 10 mg Documented by: Non-Formulary Medication (Linaclotide [Linzess]) 290 mcg PO Q2D [facility] Pancrelipase (Gildardo Dr 36,000 Units Capsule) 1 cap PO TIDCM [facility] Last Admin: 09/05/20 13:12 Dose: 1 cap Documented by: Pantoprazole Sodium (Protonix -) 40 mg PO DAILY [facility] Last Admin: 09/05/20 14:13 Dose: 40 mg Documented by: Polyethylene Glycol (Miralax (For Daily Use) -) 17 gm PO DAILY [facility] Last Admin: 09/05/20 09:18 Dose: Not Given Documented by: Potassium Chloride (K-Dur -) 10 meq PO DAILY [facility] Last Admin: 09/05/20 14:13 Dose: 10 meq Documented by: Sacubitril/Valsartan (Entresto 24 Mg-26 Mg Tablet) 1 tab PO BID [facility] Last Admin: 09/05/20 09:11 Dose: 1 tab Documented by: Spironolactone (Aldactone -) 25 mg PO DAILY [facility] Last Admin: 09/05/20 14:13 Dose: 25 mg Documented by: Tiotropium [place] (Spiriva Respimat) 2 puff IH DAILY [facility] Last Admin: 09/05/20 10:17 Dose: 2 puff Documented by: - Objective Vital Signs: Vital Signs Temperature 98.4 F 09/05/20 14:00 Pulse Rate 80 09/05/20 14:00 Respiratory Rate 16 09/05/20 14:00 Blood Pressure 90/54 L 09/05/20 14:00 O2 Sat by Pulse Oximetry (%) 96 09/05/20 10:00 Constitutional: Yes: No Distress HENT: Yes: Atraumatic Neck: Yes: Supple Cardiovascular: Yes: Regular Rate and Rhythm Respiratory: Yes: Rhonchi Gastrointestinal: Yes: Normal Bowel Sounds Extremities: Yes: WNL Neurological: Yes: Alert, Oriented Labs: CBC, BMP 09/04/20 06:15 09/05/20 08:20 Problem List - Problems (1) CHF exacerbation Assessment/Plan: on iv lasix improving monitor lytes Code(s): I50.9 - HEART FAILURE, UNSPECIFIED Qualifiers: Heart failure type: unspecified Qualified Code(s): I50.9 - Heart failure, unspecified (2) Asthma Assessment/Plan: stable Code(s): J45.909 - UNSPECIFIED ASTHMA, UNCOMPLICATED (3) CAD (coronary artery disease) Code(s): I25.10 - ATHSCL HEART DISEASE OF [place] CORONARY ARTERY W/O ANG PCTRS (4) Diabetes Code(s): E11.9 - TYPE 2 DIABETES MELLITUS WITHOUT COMPLICATIONS (5) Hyperlipidemia Assessment/Plan: on meds stable Code(s): E78.5 - HYPERLIPIDEMIA, UNSPECIFIED (6) Hypertension Assessment/Plan: on meds monitor Code(s): I10 - ESSENTIAL (PRIMARY) HYPERTENSION Qualifiers: (7) Hypothyroidism Assessment/Plan: on meds Code(s): E03.9 - HYPOTHYROIDISM, UNSPECIFIED (8) Paroxysmal A-fib Assessment/Plan: on meds on AC Code(s): I48.0 - PAROXYSMAL ATRIAL FIBRILLATION (9) Troponin level elevated Assessment/Plan: monitor Code(s): R79.89 - OTHER SPECIFIED ABNORMAL FINDINGS OF BLOOD CHEMISTRY Assessment/Plan COVERING FOR DR AVENDANO TODAY
[2020-09-05] MEDS: ATORVASTATIN CA 80 MG TABLET (FP) PO SCH (21:30)
[2020-09-05] MEDS: MONTELUKAST NA 10 MG TABLET PO SCH (21:30)
[2020-09-05] MEDS: INSULIN (LEVEMIR) 100 UNITS/ML UNITS SQ SCH (21:30)
[2020-09-06] MEDS: FUROSEMIDE 40 MG/4 ML INJECTABLE VIAL IVPUSH SCH ×2 (06:14→09:19)
[2020-09-06] MEDS: LEVOTHYROXINE NA 75 MCG TABLET (FP) PO SCH (06:40)
[2020-09-06] MEDS: INSULIN SLIDING SCALE (NOVOLOG) 1 VIAL SQ SCH ×4 (06:41→21:05)
[2020-09-06 07:56] LABS: BLOOD UREA NITROGEN 20.3 mg/dL (7-18); CALCIUM 9.1 mg/dL (8.5-10.1); CREATININE 1.5 mg/dL (0.55-1.3); POTASSIUM 3.8 mmol/L (3.5-5.1)
[2020-09-06] MEDS ORDERED: PT OWN MED DRAWER 7, Y5N ONE ×5 (08:18→16:46)
[2020-09-06] MEDS: CARVEDILOL 6.25 MG TABLET (FP) PO SCH ×3 (09:19→21:05)
[2020-09-06] MEDS ORDERED: ALBUTEROL SO4 0.083% IH SOL 2.5 MG/3 ML VIAL.NEB. NEB PRN (09:23)
[2020-09-06] MEDS: SPIRONOLACTONE 25 MG TABLET PO SCH (09:49)
[2020-09-06] MEDS: PANTOPRAZOLE 40 MG TABLET PO SCH (09:49)
[2020-09-06] MEDS: POTASSIUM CHLORIDE TABS 10 MEQ TABLET.ER (FP) PO SCH (09:50)
[2020-09-06] MEDS: LIPASE/PROTEASE/AMYLASE 36,000 UNIT CAPSULE PO SCH ×3 (09:50→16:50)
[2020-09-06] MEDS: APIXABAN 5 MG TABLET PO SCH ×2 (09:50→21:04)
[2020-09-06] MEDS: SACUBITRIL/VALSARTAN 24 MG-26 MG TABLET PO SCH ×2 (09:50→21:04)
[2020-09-06] MEDS: POLYETHYLENE GLYCOL 3350 119 GM BTL PO SCH (09:50)
[2020-09-06] MEDS: BUDESONIDE/FORMETEROL FUMARATE 160/4.5 mcg INHALER IH SCH ×2 (09:51→21:06)
[2020-09-06] MEDS: TIOTROPIUM BROMIDE 2.5 MCG (SPIRIVA) RESPIMAT INHALER IH SCH (09:51)
--- NOTE | 2020-09-06 12:11 | PN ---
Progress Note (short form) - Note Progress Note: cc: sob s: sob improved. no chest pain, palps, edema never smoker Current Medications Generic Name Dose Route Start Last Admin Trade Name Freq PRN Reason Stop Dose Admin Albuterol Sulfate 1 amp 09/06/20 09:23 Ventolin 0.083% Nebulizer Soln - NEB Q4H PRN SHORT OF BREATH/WHEEZING Apixaban 5 mg 09/06/20 10:00 09/06/20 09:50 Eliquis - PO 5 mg BID DOM Administration Atorvastatin Calcium 80 mg 09/04/20 22:00 09/05/20 21:30 Lipitor - PO 80 mg HS DOM Administration Budesonide/Formoterol Fumarate 2 puff 09/04/20 22:00 09/06/20 09:51 Symbicort 160/4.5mcg - IH 2 puff BID DOM Administration Carvedilol 6.25 mg 09/06/20 10:00 09/06/20 09:45 Coreg - PO Not Given BID DOM Insulin Aspart 1 vial 09/04/20 22:00 09/06/20 11:41 Novolog Vial Sliding Scale - SQ 4 unit ACHS DOM Administration Protocol Insulin Detemir 26 units 09/04/20 22:00 09/05/20 21:30 Levemir Vial SQ 26 unit HS DOM Administration Levothyroxine Sodium 75 mcg 09/07/20 07:00 Synthroid - PO AM DOM Montelukast Sodium 10 mg 09/04/20 22:00 09/05/20 21:30 Singulair - PO 10 mg HS DOM Administration Non-Formulary Medication 290 mcg 09/03/20 10:00 Linaclotide [Linzess] PO Q2D DOM Pancrelipase 1 cap 09/05/20 08:00 09/06/20 09:50 Gildardo Goodman 36,000 Units Capsule PO 1 cap TIDCM DOM Administration Pantoprazole Sodium 40 mg 09/06/20 10:00 09/06/20 09:49 Protonix - PO 40 mg DAILY DOM Administration Polyethylene Glycol 17 gm 09/03/20 10:00 09/06/20 09:50 Miralax (For Daily Use) - PO Not Given DAILY DOM Potassium Chloride 10 meq 09/06/20 10:00 09/06/20 09:50 K-Dur - PO 10 meq DAILY DOM Administration Sacubitril/Valsartan 1 tab 09/06/20 10:00 09/06/20 09:50 Entresto 24 Mg-26 Mg Tablet PO 1 tab BID DOM Administration Spironolactone 25 mg 09/06/20 10:00 09/06/20 09:49 Aldactone - PO 25 mg DAILY DOM Administration Tiotropium [place] 2 puff 09/03/20 10:00 09/06/20 09:51 Spiriva Respimat IH 2 puff DAILY DOM Administration Vital Signs Period Temp Pulse Resp BP Sys/Mcgrath Pulse Ox Last 24 Hr 97.5 F-98.4 F 77-89 16-20 90-114/51-73 89-100 Constitutional: Yes: Well Nourished, No Distress, Obese Eyes: No: Sclera Icterus HENT: No: Nasal Congestion Neck: No: Decreased ROM Respiratory: Yes: CTA Bilaterally. No: Accessory Muscle Use, Rales, Wheezes Gastrointestinal: Yes: Normal Bowel Sounds. No: Distention, Hepatomegaly, Palpable Mass, Tenderness Cardiovascular: Yes: Regular Rate and Rhythm JVD: No Heart Sounds: Yes: S1, S2. No: Gallop Murmur: No: Systolic Murmur, Diastolic Murmur Musculoskeletal: Yes: Other (No kyphosis) Extremities: No: Cool, Cyanosis Edema: no Integumentary: No: Jaundice Neurological: Yes: Alert, Oriented (x3) Psychiatric: No: Agitated Cardiac Catheterization 2019 non-obstructive CAD echo 05/2019 tds, mildly dilated LV, severe global hypok, RV nl CXR: mild chf EKG: sinus, old LBBB tele: sinus, 7 bt NSVT IMP/PLAN: Acute on chronic systolic CHF -Pt had leonardo/hypotension with lasix 40/20 alt days but then had vol buildup on lasix 20 qd -she finds that with 20 qd with close monitoring of wt and sxs at home doesn't always work because her symptoms get worse quickly - sob improved, Cr rising - hold lasix today - likely resume lasix 20 mg PO daily at home with 40 mg one day a week if Cr stable - daily chem7, wts -Cont Toprol/Entresto, aldactone elevated trop: - indeterminate range, flat trend, nl ck, similar to prior baseline values, not c/w acs HTN: - cont home meds paroxysmal afib - in sinus --cont home bb - cont home eliquis 5 mg BID hld: -cont statin NSVT - known systolic HF, s/p ICD - maintain K >4, Mg >2 - cont toprol
[2020-09-06] MEDS ORDERED: FUROSEMIDE 40 MG/4 ML INJECTABLE VIAL IVPUSH SCH (14:00)
[2020-09-06] MEDS: INSULIN (LEVEMIR) 100 UNITS/ML UNITS SQ SCH (21:05)
[2020-09-06] MEDS: ATORVASTATIN CA 80 MG TABLET (FP) PO SCH (21:05)
[2020-09-06] MEDS: MONTELUKAST NA 10 MG TABLET PO SCH (21:05)
--- NOTE | 2020-09-06 22:41 | PN ---
Progress Note, Physician History of Present Illness: No new complaints - Current Medication List Current Medications: Active Medications Albuterol Sulfate (Ventolin 0.083% Nebulizer Soln -) 1 amp NEB Q4H PRN PRN Reason: SHORT OF BREATH/WHEEZING Last Admin: 09/06/20 11:22 Dose: 1 amp Documented by: Apixaban (Eliquis -) 5 mg PO BID [facility] Last Admin: 09/06/20 21:04 Dose: 5 mg Documented by: Atorvastatin Calcium (Lipitor -) 80 mg PO [facility] Last Admin: 09/06/20 21:05 Dose: 80 mg Documented by: Budesonide/Formoterol Fumarate (Symbicort 160/4.5mcg -) 2 puff IH BID [facility] Last Admin: 09/06/20 21:06 Dose: 2 puff Documented by: Carvedilol (Coreg -) 6.25 mg PO BID [facility] Last Admin: 09/06/20 21:05 Dose: 6.25 mg Documented by: Insulin Aspart (Novolog Vial Sliding Scale -) 1 vial SQ [facility]; Protocol Last Admin: 09/06/20 21:05 Dose: 4 unit Documented by: Insulin Detemir (Levemir Vial) 26 units SQ [facility] Last Admin: 09/06/20 21:05 Dose: 26 unit Documented by: Levothyroxine Sodium (Synthroid -) 75 mcg PO AM [facility] Montelukast Sodium (Singulair -) 10 mg PO [facility] Last Admin: 09/06/20 21:05 Dose: 10 mg Documented by: Non-Formulary Medication (Linaclotide [Linzess]) 290 mcg PO Q2D [facility] Pancrelipase ([place] Dr 36,000 Units Capsule) 1 cap PO TIDCM [facility] Last Admin: 09/06/20 16:50 Dose: 1 cap Documented by: Pantoprazole Sodium (Protonix -) 40 mg PO DAILY [facility] Last Admin: 09/06/20 09:49 Dose: 40 mg Documented by: Polyethylene Glycol (Miralax (For Daily Use) -) 17 gm PO DAILY [facility] Last Admin: 09/06/20 09:50 Dose: Not Given Documented by: Potassium Chloride (K-Dur -) 10 meq PO DAILY [facility] Last Admin: 09/06/20 09:50 Dose: 10 meq Documented by: Sacubitril/Valsartan (Entresto 24 Mg-26 Mg Tablet) 1 tab PO BID [facility] Last Admin: 09/06/20 21:04 Dose: 1 tab Documented by: Spironolactone (Aldactone -) 25 mg PO DAILY [facility] Last Admin: 09/06/20 09:49 Dose: 25 mg Documented by: Tiotropium [place] (Spiriva Respimat) 2 puff IH DAILY [facility] Last Admin: 09/06/20 09:51 Dose: 2 puff Documented by: - Objective Vital Signs: Vital Signs Temperature 97.9 F 09/06/20 18:00 Pulse Rate 94 H 09/06/20 18:00 Respiratory Rate 17 09/06/20 18:00 Blood Pressure 159/94 09/06/20 18:00 O2 Sat by Pulse Oximetry (%) 98 09/06/20 18:00 Neck: Yes: WNL, Supple Cardiovascular: Yes: WNL, Regular Rate and Rhythm Respiratory: Yes: Diminished Gastrointestinal: Yes: WNL, Normal Bowel Sounds, Soft, Abdomen, Obese Labs: CBC, BMP 09/04/20 06:15 09/06/20 06:45 Problem List - Problems (1) Acute on chronic systolic (congestive) heart failure Assessment/Plan: Lasix dose being adjusted due to hypotension Monitor electrolytes Cont entresto/coreg/spironolactone Will do lasix 20mg qd and on fridays 40mg ?DC planning Code(s): I50.23 - ACUTE ON CHRONIC SYSTOLIC (CONGESTIVE) HEART FAILURE (2) Hypertension Assessment/Plan: Cont to monitor BP Code(s): I10 - ESSENTIAL (PRIMARY) HYPERTENSION Qualifiers: (3) Paroxysmal A-fib Assessment/Plan: Heart rate stable Cont eliquis Code(s): I48.0 - PAROXYSMAL ATRIAL FIBRILLATION (4) COPD (chronic obstructive pulmonary disease) Assessment/Plan: Cont spireva/ventolin nebulizer Code(s): J44.9 - CHRONIC OBSTRUCTIVE PULMONARY DISEASE, UNSPECIFIED (5) Cardiomyopathy Code(s): I42.9 - CARDIOMYOPATHY, UNSPECIFIED (6) Diabetes Assessment/Plan: Cont levemir Cont sliding scale w/ coverage Code(s): E11.9 - TYPE 2 DIABETES MELLITUS WITHOUT COMPLICATIONS (7) Elevated troponin Assessment/Plan: Due to demand ischemia Code(s): R79.89 - OTHER SPECIFIED ABNORMAL FINDINGS OF BLOOD CHEMISTRY (8) Hyperlipidemia Assessment/Plan: Cont lipitor Code(s): E78.5 - HYPERLIPIDEMIA, UNSPECIFIED (9) Hypothyroidism Assessment/Plan: Cont levothyroxine Code(s): E03.9 - HYPOTHYROIDISM, UNSPECIFIED (10) ICD (implantable cardioverter-defibrillator) in place Code(s): Z95.810 - PRESENCE OF AUTOMATIC (IMPLANTABLE) CARDIAC DEFIBRILLATOR (11) Morbid obesity Code(s): E66.01 - MORBID (SEVERE) OBESITY DUE TO EXCESS CALORIES (12) CAD (coronary artery disease) Code(s): I25.10 - ATHSCL HEART DISEASE OF [place] CORONARY ARTERY W/O ANG PCTRS
[2020-09-07] MEDS ORDERED: LEVOTHYROXINE NA 75 MCG TABLET (FP) PO SCH (07:00)
[2020-09-07] MEDS: INSULIN SLIDING SCALE (NOVOLOG) 1 VIAL SQ SCH ×2 (07:03→12:12)
[2020-09-07 08:12] LABS: ALBUMIN 3.2 g/dl (3.4-5.0); BILIRUBIN,TOTAL 0.4 mg/dL (0.2-1); BLOOD UREA NITROGEN 15.3 mg/dL (7-18); CALCIUM 9.1 mg/dL (8.5-10.1); CREATININE 1.2 mg/dL (0.55-1.3); TOT PROT 6.6 g/dl (6.4-8.2)
[2020-09-07] MEDS ORDERED: PT OWN MED DRAWER 7, Y5N ONE (09:46)
[2020-09-07] MEDS: LIPASE/PROTEASE/AMYLASE 36,000 UNIT CAPSULE PO SCH ×2 (09:48→12:12)
[2020-09-07] MEDS: POTASSIUM CHLORIDE TABS 10 MEQ TABLET.ER (FP) PO SCH (09:48)
[2020-09-07] MEDS: APIXABAN 5 MG TABLET PO SCH (09:48)
[2020-09-07] MEDS: PANTOPRAZOLE 40 MG TABLET PO SCH (09:48)
[2020-09-07] MEDS: CARVEDILOL 6.25 MG TABLET (FP) PO SCH (09:48)
[2020-09-07] MEDS: SACUBITRIL/VALSARTAN 24 MG-26 MG TABLET PO SCH (09:48)
[2020-09-07] MEDS: SPIRONOLACTONE 25 MG TABLET PO SCH (09:48)
[2020-09-07] MEDS: POLYETHYLENE GLYCOL 3350 119 GM BTL PO SCH (09:48)
[2020-09-07] MEDS: TIOTROPIUM BROMIDE 2.5 MCG (SPIRIVA) RESPIMAT INHALER IH SCH (09:49)
[2020-09-07] MEDS: BUDESONIDE/FORMETEROL FUMARATE 160/4.5 mcg INHALER IH SCH (09:49)
--- NOTE | 2020-09-07 11:45 | PN ---
Progress Note (short form) - Note Progress Note: cc: sob s: mild sob has resolved , no cp palps dizzy Current Medications Generic Name Dose Route Start Last Admin Trade Name Freq PRN Reason Stop Dose Admin Albuterol Sulfate 1 amp 09/06/20 09:23 09/06/20 11:22 Ventolin 0.083% Nebulizer Soln - NEB 1 amp Q4H PRN Administration SHORT OF BREATH/WHEEZING Apixaban 5 mg 09/06/20 10:00 09/07/20 09:48 Eliquis - PO 5 mg BID DOM Administration Atorvastatin Calcium 80 mg 09/04/20 22:00 09/06/20 21:05 Lipitor - PO 80 mg HS DOM Administration Budesonide/Formoterol Fumarate 2 puff 09/04/20 22:00 09/07/20 09:49 Symbicort 160/4.5mcg - IH 2 puff BID DOM Administration Carvedilol 6.25 mg 09/06/20 10:00 09/07/20 09:48 Coreg - PO 6.25 mg BID DOM Administration Insulin Aspart 1 vial 09/04/20 22:00 09/07/20 07:03 Novolog Vial Sliding Scale - SQ 4 unit ACHS DOM Administration Protocol Insulin Detemir 26 units 09/04/20 22:00 09/06/20 21:05 Levemir Vial SQ 26 unit HS DOM Administration Levothyroxine Sodium 75 mcg 09/07/20 07:00 09/07/20 07:03 Synthroid - PO 75 mcg AM DOM Administration Montelukast Sodium 10 mg 09/04/20 22:00 09/06/20 21:05 Singulair - PO 10 mg HS DOM Administration Non-Formulary Medication 290 mcg 09/03/20 10:00 Linaclotide [Linzess] PO Q2D DOM Pancrelipase 1 cap 09/05/20 08:00 09/07/20 09:48 Gildardo Goodman 36,000 Units Capsule PO 1 cap TIDCM DOM Administration Pantoprazole Sodium 40 mg 09/06/20 10:00 09/07/20 09:48 Protonix - PO 40 mg DAILY DOM Administration Polyethylene Glycol 17 gm 09/03/20 10:00 09/07/20 09:48 Miralax (For Daily Use) - PO Not Given DAILY DOM Potassium Chloride 10 meq 09/06/20 10:00 09/07/20 09:48 K-Dur - PO 10 meq DAILY DOM Administration Sacubitril/Valsartan 1 tab 09/06/20 10:00 09/07/20 09:48 Entresto 24 Mg-26 Mg Tablet PO 1 tab BID DOM Administration Spironolactone 25 mg 09/06/20 10:00 09/07/20 09:48 Aldactone - PO 25 mg DAILY DOM Administration Tiotropium [place] 2 puff 09/03/20 10:00 09/07/20 09:49 Spiriva Respimat IH 2 puff DAILY DOM Administration Vital Signs Period Temp Pulse Resp BP Sys/Mcgrath Pulse Ox Last 24 Hr 97.6 F-98.3 F 78-94 15-20 97-159/55-94 92-100 Constitutional: Yes: Well Nourished, No Distress, Obese Eyes: No: Sclera Icterus HENT: No: Nasal Congestion Neck: No: Decreased ROM Respiratory: Yes: CTA Bilaterally. No: Accessory Muscle Use, Rales, Wheezes Gastrointestinal: Yes: Normal Bowel Sounds. No: Distention, Hepatomegaly, Palpable Mass, Tenderness Cardiovascular: Yes: Regular Rate and Rhythm JVD: No Heart Sounds: Yes: S1, S2. No: Gallop Murmur: No: Systolic Murmur, Diastolic Murmur Musculoskeletal: Yes: Other (No kyphosis) Extremities: No: Cool, Cyanosis Edema: no Integumentary: No: Jaundice Neurological: Yes: Alert, Oriented (x3) Psychiatric: No: Agitated CBC, BMP 09/04/20 06:15 09/07/20 06:55 Cardiac Catheterization 2019 non-obstructive CAD echo 05/2019 tds, mildly dilated LV, severe global hypok, RV nl CXR: mild chf EKG: sinus, old LBBB tele: sinus IMP/PLAN: Acute on chronic systolic CHF -Pt had leonardo/hypotension with lasix 40/20 alt days but then had vol buildup on lasix 20 qd -she finds that with 20 qd with close monitoring of wt and sxs at home doesn't always work because her symptoms get worse quickly - sob improved after iv lasix, cr back to baseline - can now resume lasix 20 mg PO daily at home with 40 mg one day a week -Cont Toprol/Entresto, aldactone elevated trop: - indeterminate range, flat trend, nl ck, similar to prior baseline values, not c/w acs HTN: - cont home meds paroxysmal afib - in sinus --cont home bb - cont home eliquis 5 mg BID hld: -cont statin NSVT - known systolic HF, s/p ICD - maintain K >4, Mg >2 - cont toprol cardiac mendez stable for dc
[2020-09-07 14:10] VITALS: BP 97/68; PULSE 93; TEMP 98.7
== END 2020-09-07 14:53 | disposition home or self-care (01) | DRG 291 ==
LOC: JER 19:49 → JERBED 22:36 → J4S 09-03 01:30
PROVIDERS: ADMIT Internal Medicine; ATTEND Internal Medicine
DX: I13.0 Hypertensive heart and chronic kidney disease with heart failure and stage 1 through stage 4 chronic kidney disease, or unspecified chronic kidney disease (principal); I50.23 Acute on chronic systolic (congestive) heart failure; N17.9 Acute kidney failure, unspecified; N18.9 Chronic kidney disease, unspecified; I25.10 Atherosclerotic heart disease of native coronary artery without angina pectoris; E11.22 Type 2 diabetes mellitus with diabetic chronic kidney disease; I48.0 Paroxysmal atrial fibrillation; I42.9 Cardiomyopathy, unspecified; G47.33 Obstructive sleep apnea (adult) (pediatric); I25.2 Old myocardial infarction; E03.9 Hypothyroidism, unspecified; F32.9 Major depressive disorder, single episode, unspecified; D64.9 Anemia, unspecified; E66.9 Obesity, unspecified; Z68.39 Body mass index [BMI] 39.0-39.9, adult; I44.7 Left bundle-branch block, unspecified; R79.89 Other specified abnormal findings of blood chemistry; R00.0 Tachycardia, unspecified; J44.9 Chronic obstructive pulmonary disease, unspecified; Z95.810 Presence of automatic (implantable) cardiac defibrillator; Z87.11 Personal history of peptic ulcer disease; Z96.653 Presence of artificial knee joint, bilateral; Z95.5 Presence of coronary angioplasty implant and graft
CPT/HCPCS: 36415; 71046-TC-FY; 71275-TC; 74177-TC; 80048; 80053; 82550; 82553; 82962; 83880; 84484; 85025; 93005; 93010; 94640; 94660; 99285-25; Q9967; U0003

== ENCOUNTER 2020-09-12 11:26 | Inpatient (IN) | payer OTHER ==
--- OUTSIDE RECORDS SUMMARY | 2020-09-12 11:46 | XMS ---
:1960 Author Organization [facility] Care Team Providers Name Role Phone JAIRON PEREZ Unavailable Unavailable MUSIAL, ERNA Unavailable Unavailable SABIANIST, HUMAYUN Unavailable Unavailable EMERGENCY SERVICE, X Unavailable Unavailable SANDRA WESTON Unavailable Unavailable KRISTI VINSON Unavailable Unavailable COCO SHELTON Unavailable Unavailable Re-disclosure [...] is protected by Article 27-F of the [place] State Public Health law. If you continue you may haveaccess to information: Regarding HIV / AIDS; Provided by facilities licensed or operated by the [facility] Office of Mental Health; or Provided by the [facility] Office for People With Developmental Disabilities. If such information is present, then the following [facility] mandated warning applies: This information has been [...] law may result in a fine or shelter sentence or both. A general authorization for the release of medical or other information is NOT sufficient authorization for further disclosure. Allergies and Adverse Reactions Type Description Substance Reaction Status Data Source(s ) Drug allergy Unable to Assess Unable to Assess [facility] Encounters Encounter Providers Location Date Indications Data Source(s ) Outpatient Attender: NIKITA, 05/04/2020 G47.33 [facility] OLEGAdmitter: 06:00:00 AM Health Car elizabeth [facility] ED [employer] OLEGReferrer: COCO SHELTON G47.33 Outpatient Attender: KAREL 05/01/2020 06:45:00 Z03.818 [facility] [employer] Z03.818 Outpatient Attender: JAIRON Latif 01/08/2020 08:53:00 [facility] MARSHALANAdmitter: JAIRON DE LA OReferrer: JAIRON DE LA O Outpatient Attender: NIKITA 12/21/2019 06:00:00 R06.02 [facility] OLEGAdmitter: RAHEL SHELTON [facility] OLEGReferrer: Rickey SHELTON R06.02 Outpatient Attender: SABIANIST, 10/26/2019 I27.0 I42.8 [facility] HUMAYUNAdmitter: SABIANIST, 12:54:00 PM [facility] HUMAYUNReferrer: Abida HOLT ERNA I27.0 I42.8 Inpatient 10/21/2019 08:07:00 AM [facility] Inpatient 10/21/2019 08:07:00 AM [facility] Outpatient Attender: TRISTA, 10/13/2019 06:00:00 AM I42.8 [facility] SANDRA LegerAdmitter: [facility] [employer] SANDRA WESTONReferrer: SANDRA WESTON I42.8 Inpatient Attender: SANDRA WESTON 10/12/2019 08:46:00 PM [facility]: SANDRA WESTON - 10/15/2019 [facility] [place] 05:41:00 PM EST ADHF Patient admitted. Emergency Attender: SANDRA WESTON 10/12/2019 07:06:00 PM PENNY N [facility] ArsenAttender: EMERGENCY EST [facility] SERVICE, XAdmitter: SANDRA WESTON PAIN Outpatient Attender: SABIANIST, 10/05/2019 11:05:00 [facility] HUMAYUNAdmitter: RAHEL PRADO [facility] HUMAYUNReferrer: SANDRA WESTON Insurance Providers Payer name Policy type Policy ID Covered Covered democrat's Policy P annmarie / Coverage democrat ID relationship to Arellano Inf ormation type arellano HIP MEDICARE [id number] SP [id number] VIP 1 MEDICAID [id number] SP [id number] KENDAL MEDICARE [id number] SP [id number] MEDICAID [id number] SP [id number] HIP MEDICARE [id number] SP [id number] VIP 1 KENDAL MEDICARE [id number] SP [id number] MEDICARE [id number] SP [id number] 18 8 MEDICARE [id number] SP [id number] A MEDICARE [id number] SP [id number] 18 8 KENDAL MEDICARE [id number] SP [id number] BLUE CROSS [id number] SP [id number] SENIOR PLAN 44 O [id number] 01 [id number] HIP O [id number] 1 W [id number] 01 [id number] EMPIRE [id number] [facility] [address] [place] MEDICARE [id number] PART B [id number] [facility] [id number] HIP MEDICARE [id number] SP [id number] M VIP MEDICARE [id number] SP [id number] A MEDIBLUE OP O [id number] 01 [id number] MEDICARE [id number] SP [id number] A MEDICARE [id number] SP [id number] M [id number] A Problems, Conditions, and Diagnoses Code Display Name Description Problem Type Effective Data Sour ce(s) Dates E66.01 Morbid (severe) MORBID (SEVERE) Diagnosis 05/04/2020 [place] obesity due to OBESITY DUE TO 06:00:00 AM Count y Health excess calories EXCESS CALORIES EDT Care [employer] G47.33 Obstructive sleep OBSTRUCTIVE SLEEP Diagnosis 05/04/2020 [place] apnea (adult) APNEA (ADULT) 06:00:00 AM [facility] (pediatric) (PEDIATRIC) EDT Care [employer] M47.9 Spondylosis, SPONDYLOSIS, Diagnosis 01/08/2020 [facility] unspecified UNSPECIFIED 08:53:00 AM Medical [facility] EST R06.02 Shortness of breath SHORTNESS OF BREATH Diagnosis [place] 06:00:00 AM [facility] EST Care [employer] J44.9 Chronic obstructive CHRONIC OBSTRUCTIVE Diagnosis [place] pulmonary disease, PULMONARY DISEASE, 12:54:00 PM [facility] unspecified UNSPECIFIED EST Care Corporation I50.23 Acute on chronic ACUTE ON CHRONIC Diagnosis 10/26/2019 [facility] systolic SYSTOLIC 12:54:00 PM [facility] (congestive) heart (CONGESTIVE) HEART EST Care failure FAILURE Corporation I42.8 Other OTHER Diagnosis 10/26/2019 [place] cardiomyopathies CARDIOMYOPATHIES 12:54:[facility] [employer] I27.0 Primary pulmonary PRIMARY PULMONARY Diagnosis 10/26/2019 [place] hypertension HYPERTENSION 12:54:00 PM [facility] EST Care [employer] 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 019 [place] use of USE OF 05:41:00 PM [facility] anticoagulants ANTICOAGULANTS EST Care [employer] Z91.040 Latex allergy status LATEX ALLERGY Diagnosis 10/15/2019 [place] STATUS 05:41:00 PM [facility] Base CRM Z88.8 Allergy status to ALLERGY STATUS TO Diagnosis 10/15/2019 [place] other drugs, OTH DRUG/MEDS/BIOL 05:41:00 PM [facility] medicaments and SUBST STATUS [facility] biological [employer] substances status Z88.2 Allergy status to ALLERGY STATUS TO Diagnosis 10/15/2019 [place] sulfonamides status SULFONAMIDES STATUS 05:41:0 0 PM [facility] [employer] Z88.5 Allergy status to ALLERGY STATUS TO Diagnosis 10/15/2019 [place] narcotic agent NARCOTIC AGENT 05:41:00 PM Count y Health status STATUS [employer] 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 019 [place] use of insulin USE OF INSULIN 05:41:00 PM [facility] [employer] 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 10/15/2019 [facility] infarction INFARCTION 05:41:00 PM [facility] [employer] Z95.810 Presence of PRESENCE OF Diagnosis 10/15/2019 [place] automatic AUTOMATIC 05:41:00 PM [facility] (implantable) (IMPLANTABLE) [facility] cardiac CARDIAC [facility] defibrillator DEFIBRILLATOR Z95.5 Presence of coronary PRESENCE OF Diagnosis 10/15/2019 [facility] [place] angioplasty implant CORONARY 05:41:00 PM [facility] and graft ANGIOPLASTY IMPLANT EST Care AND GRAFT [employer] I48.0 Paroxysmal atrial PAROXYSMAL ATRIAL Diagnosis 10/15/2019 [place] fibrillation FIBRILLATION 05:41:00 PM [facility] [employer] E11.40 Type 2 diabetes TYPE 2 DIABETES Diagnosis 10/15/2019 [place] mellitus with MELLITUS WITH 05:41:00 PM [facility] diabetic neuropathy, DIABETIC EST Care unspecified NEUROPATHY, UNSP Corpora tion E11.22 Type 2 diabetes TYPE 2 DIABETES Diagnosis 10/15/2019 [place] mellitus with MELLITUS W DIABETIC 05:41:00 PM [facility] diabetic chronic CHRONIC KIDNEY [facility] kidney disease DISEASE Corporatio n N18.9 Chronic kidney CHRONIC KIDNEY Diagnosis 10/15/2019 [facility] clay disease, unspecified DISEASE, 05:41:00 PM [facility] UNSPECIFIED [place] [facility] I25.10 Atherosclerotic ATHSCL HEART Diagnosis 10/15/2019 [facility] heart disease of DISEASE OF [place] 05:41:00 PM [facility] [place] coronary CORONARY ARTERY W/O EST Care artery without ANG PCTRS Corporatio n angina pectoris I27.23 Pulmonary PULMONARY Diagnosis 10/15/2019 [place] hypertension due to HYPERTENSION DUE TO 05:41:0 0 PM [facility] lung diseases and LUNG DISEASES AND EST Care hypoxia [employer]PO[employer] Corporation Z68.41 Body mass index BODY MASS INDEX Diagnosis 10/15/2019 [place] (BMI) 40.0-44.9, (BMI) 40.0-44.9, 05:41:00 PM [facility] adult ADULT EST Care Corporation I13.0 Hypertensive heart HYP HRT and CHR Diagnosis 10/12/2019 [place] and chronic kidney KDNY DIS W HRT FAIL 08:46:00 PM [facility] disease with heart AND STG 1-4/UNSP EST Care failure and stage 1 CHR KDNY Corpo ration through stage 4 chronic kidney disease, or unspecified chronic kidney disease Results ID Date Data Source [id number] 09/02/2020 10:28:00 PM EDT [facility] Name Value Range Interpretation Description Data Sup porting Code Source(s) Document(s ) SARS [facility] coronavirus 2 RNA This lab was ordered by [facility] and reported by [facility]. ID Date Data Source [id number] 07/20/2020 04:30:00 PM EDT [facility] Name Value Range Interpretation Description Data Sup porting Code Source(s) Document(s ) SARS [facility] coronavirus 2 RNA This lab was ordered by [facility] and reported by [facility]. ID Date Data Source [id number] 07/05/2020 08:10:00 PM EDT [facility] Name Value Range Interpretation Description Data Sup porting Code Source(s) Document(s ) SARS [facility] coronavirus 2 RNA This lab was ordered by [facility] and reported by [facility]. ID Date Data Source [id number] 05/23/2020 09:03:00 PM EDT [facility] Name Value Range Interpretation Description Data Sup porting Code Source(s) Document(s ) SARS [facility] CORONAVIRUS 2 RNA This lab was ordered by [facility] and reported by [facility]. ID Date Data Source [id number] 02/20/2020 01:00:00 PM EDT [facility] Name Value Range Interpretation Code Description Data Riya rce(s) Supporting Document(s ) 2019-nCoV [facility] N XXX Ql MITCH N2 This lab was ordered by [facility] and reported by [facility]. ID Date Data Source [id number] 10/15/2019 06:11:00 AM EST [facility] [id number] Corporation Name Value Range Interpretation Description Data Sup porting Code Source(s) Document(s ) Leukocytes 7.8 k/mm3 4.8-10 <td> 10/15/2019 [place] [#/volume] in .8 06:11</td><td> [facility] Blood by k/mm3 WBC </td><td> Health Care Automated count [employer] 7.8
(4.8-10.8) k/mm3 </td> Hemoglobin 11.1 g/dL 12.0-1 <td> 10/15/2019 [place] [Mass/volume] 6.0 06:11</td><td> [facility] in Blood g/dL [facility] </td><td><marti [employer] raph styleCode="Bold "> 11.1 L </paragraph>
(12.0-16.0) g/dL </td> Erythrocytes 4.22 m/mm3 3.90-5 <td> 10/15/2019 [facility] r [#/volume] in .20 06:11</td><td> [facility] Blood m/mm3 RBC </td><td> Pointstic 4.22
(3.90-5.20) m/mm3 </td> Hematocrit 37.3 % 37.0-4 <td> 10/15/2019 [place] [Volume 7.0 % 06:11</td><td> County Fraction] of HCT </td><td> Health Care Blood by [employer] Automated count 37.3
(37.0-47.0) % </td> Erythrocyte 26.3 pg 27.0-3 <td> 10/15/2019 [place] mean 1.5 pg 06:11</td><td> [facility] corpuscular [facility] hemoglobin </td><td><marti Corporation [Entitic mass] raph by Automated styleCode="Bold count "> 26.3 L </paragraph>
(27.0-31.5) pg </td> Erythrocyte 88.4 fL 81.0-9 <td> 10/15/2019 [place] mean 9.0 fL 06:11</td><td> County corpuscular MCV </td><td> Health Care volume [[employer] Corporation volume] by 88.4 Automated count
(81.0-99.0) fL </td> Erythrocyte 29.8 % 32.0-3 <td> 10/15/2019 [place] mean 6.0 % 06:11</td><td> County corpuscular [facility] hemoglobin </td><td><martiLocalSort concentration raph [Mass/volume] styleCode="Bold in Blood from "> Fetus by 29.8 Automated count L </paragraph>
(32.0-36.0) % </td> Platelet mean 11.3 fL 9.8-12 <td> 10/15/2019 [facility] r volume [Entitic .8 fL 06:11</td><td> County volume] in MPV </td><td> Health Care Blood by Corporation Automated count 11.3
(9.8-12.8) fL </td> Erythrocyte 14.6 % 11.5-1 <td> 10/15/2019 [place] distribution 4.5 % 06:11</td><td> County width [Entitic RDW Health Care volume] by </td><td><[employer] Automated count raph styleCode="Bold "> 14.6 H </paragraph>
(11.5-14.5) % </td> Lymphocytes 14.3 % 17.0-5 <td> 10/12/2019 [place] [#/volume] in 0.0 % 21:32</td><td> County Blood by Lymphocytes Health Care Automated count </td><td><marti Corporat ion raph styleCode="Bold "> 14.3 L </paragraph>
(17.0-50.0) % </td> Platelets 271 k/mm3 160-41 <td> 10/15/2019 [place] [#/volume] in 0 06:11</td><td> [facility] Blood by k/mm3 Platelet Count [facility] Automated count </td><td> [employer] 271
(160-410) k/mm3 </td> Basophils+Eosin 0.0 % 0.0-5. <td> 10/12/2019 [facility] ophils+Monocyte 0 % 21:32</td><td> County s [#/volume] in Eosinophils Health [facility] Blood by </td><td> [employer] Automated count 0.0
(0.0-5.0) % </td> Monocytes/Leuko 7.9 % 0.0-11 <td> 10/12/2019 [facility] cytes [Pure .0 % 21:32</td><td> [facility] number Monocytes. Health Care fraction] in </td><td> [facility] Blood by Automated count 7.9
(0.0-11.0) % </td> Basophils 0.1 % 0.0-2. <td> 10/12/2019 [place] [#/volume] in 0 % 21:32</td><td> [facility] Blood by Basophils [facility] Automated count </td><td> [employer] 0.1
(0.0-2.0) % </td> Immature 0.9 % 0.0-0. <td> 10/12/2019 [place] granulocytes/10 5 % 21:32</td><td> [facility] 0 leukocytes in IG% [facility] Blood by </td><td><[employer] Automated count raph styleCode="Bold "> 0.9 H </paragraph>
(0.0-0.5) %
The IG fraction represents metamyelocytes, myelocytes and/or
promyelocytes and is only reported as part of the automated
differential when found at a percentage of less than 6.
If higher than 6%, a manual differential will be performed.

(0.0-0.5) % </td> Sodium 135 mEq/L 135-14 <td> 10/15/2019 [place] [Moles/volume] 5 06:11</td><td> County in Serum or mEq/L Sodium-Serum Health Care Plasma </td><td> [employer] 135
(135-145) mEq/L </td> Neutrophils [#] 76.8 % 40.0-7 <td> 10/12/2019 [facility] in Body fluid 6.0 % 21:32</td><td> County by Manual count Neutrophils Health Care </td><td><[employer] raph styleCode="Bold "> 76.8 H </paragraph>
(40.0-76.0) % </td> Glucose 157 mg/dL 70-105 <td> 10/15/2019 [place] [Mass/volume] mg/dL 06:11</td><td> County in Blood Glucose-Serum Health Care </td><td><[employer] raph styleCode="Bold "> 157 H </paragraph>
(70-105) mg/dL </td> Potassium 3.9 mEq/L 3.5-5. <td> 10/15/2019 [place] [Moles/volume] 1 06:11</td><td> County in Serum or mEq/L Potassium-Serum Health Care Plasma </td><td> [employer] 3.9
(3.5-5.1) mEq/L </td> Chloride 101 mEq/L 98-107 <td> 10/15/2019 [place] [Moles/volume] mEq/L 06:11</td><td> County in Serum or Chloride Health Care Plasma </td><td> [employer] 101
(98-107) mEq/L </td> Urea nitrogen 19 mg/dL 6-22 <td> 10/15/2019 [facility] r [Mass/volume] mg/dL 06:11</td><td> County in Blood BUN </td><td> [place] [facility] [employer] 19
(6-22) mg/dL </td> Carbon dioxide, 26 mEq/L 22-30 <td> 10/15/2019 [facility] total mEq/L 06:11</td><td> County [Moles/volume] CO2 </td><td> Health Car e in Serum or Corporation Plasma 26
(22-30) mEq/L </td> Creatinine 1.14 mg/dL 0.57-1 <td> 10/15/2019 [place] [Moles/volume] .11 06:11</td><td> County in Serum or mg/dL Creatinine. Health Care Plasma </td><td><marti Corporation raph styleCode="Bold "> 1.14 H </paragraph>
(0.57-1.11) mg/dL </td> Aspartate 9 U/L 4-35 <td> 10/15/2019 [place] aminotransferas U/L 06:11</td><td> County e [Enzymatic AST (SGOT) Health Care activity/volume </td><td> [employer] ] in Serum or Plasma 9
(4-35) U/L </td> Alanine 6 U/L 6-55 <td> 10/15/2019 [place] aminotransferas U/L 06:11</td><td> County e [Enzymatic ALT (SGPT) Health Care activity/volume </td><td> [employer] ] in Serum or Plasma 6
(6-55) U/L </td> Bilirubin.total 0.3 mg/dL 0.2-1. <td> 10/15/2019 [facility] [Mass/volume] 3 06:11</td><td> [facility] in Blood mg/dL Bilirubin - Health Care [facility]. </td><td> 0.3
(0.2-1.3) mg/dL </td> Proteins - 6.8 g/dL 6.4-8. <td> 10/15/2019 [place] Total 3 g/dL 06:11</td><td> [facility] Proteins - Health Liquid State </td><td> 6.8
(6.4-8.3) g/dL </td> Calcium 8.9 mg/dL 8.6-10 <td> 10/15/2019 [place] [Mass/volume] .2 06:11</td><td> County in Blood mg/dL Calcium Health Care </td><td> [employer] 8.9
(8.6-10.2) mg/dL </td> Albumin 3.7 g/dL 3.4-4. <td> 10/15/2019 [place] [Mass/volume] 8 g/dL 06:11</td><td> County in Serum or Albumin Health Care Plasma </td><td> [employer] 3.7
(3.4-4.8) g/dL </td> Globulin 3.1 gm/dL 2.9-4. <td> 10/15/2019 [place] [Mass/volume] 0 06:11</td><td> County in Serum gm/dL Globulin Health Care </td><td> [employer] 3.1
(2.9-4.0) gm/dL </td> Anion gap in 8 mEq/L 7-13 <td> 10/15/2019 [place] Serum or Plasma mEq/L 06:11</td><td> [facility] Anion Gap Health Care </td><td> [employer] 8
(7-13) mEq/L </td> Icteric index Non <td> 10/15/2019 [facility] r of Serum or Icteric 06:11</td><td> [facility] Plasma Icteric Index Health [facility] </td><td> [employer] Non Icteric
</td> Hemolysis index No <td> 10/15/2019 [facility] of Serum or Hemolysis 06:11</td><td> [facility] Plasma Hemolysis Index Health Care </td><td> [employer] No Hemolysis
</td> Lipemic index No Lipemia <td> 10/15/2019 [facility] er of Serum or 06:11</td><td> [facility] Plasma Lipemia Index Health Care </td><td> [employer] No Lipemia
</td> Phosphate 3.1 mg/dL 2.3-4. <td> 10/15/2019 [place] [Mass/volume] 7 06:11</td><td> County in Serum or mg/dL Inorganic Health Care Plasma Phosphorus [facility] </td><td> 3.1
(2.3-4.7) mg/dL </td> Prothrombin 11.1 secs 9.8-12 <td> 10/15/2019 [place] time (PT) .0 06:11</td><td> [facility] secs Prothrombin Health Care Time. [facility] </td><td> 11.1
(9.8-12.0) secs </td> aPTT panel - 26.3 secs 25.0-3 <td> 10/15/2019 [place] Platelet poor 2.0 06:11</td><td> [facility] plasma secs Partial [facility] Care Thromboplastin [facility] Time </td><td> 26.3
(25.0-32.0) secs </td> Magnesium 1.9 mg/dL 1.6-2. <td> 10/15/2019 [place] [Mass/volume] 6 06:11</td><td> County in Serum or mg/dL Magnesium Level Health Care Plasma </td><td> [employer] 1.9
(1.6-2.6) mg/dL </td> Cholesterol in 50 mg/dL >60 <td> 10/14/2019 [facility] er HDL mg/dL 06:45</td><td> [facility] [Mass/volume] HDL Cholesterol [facility] e in Serum or </td><td> [employer] Plasma 50
(>60) mg/dL </td> Cholesterol 179 mg/dL 125-24 <td> 10/14/2019 [place] [Moles/volume] 0 06:45</td><td> [facility] in Serum or mg/dL Cholesterol Health Care Plasma </td><td> [employer] 179
(125-240) mg/dL </td> Glucose 167 mg/dL 70-105 <td> 10/15/2019 [place] [Mass/volume] mg/dL 11:45</td><td> [facility] in Capillary Glucose - Health Care blood by Finger Stick [employer] Glucometer </td><td><marti raph styleCode="Bold "> 167 H </paragraph>
(70-105) mg/dL </td> Triglyceride 173 mg/dL 30-200 <td> 10/14/2019 [place] [Mass/volume] mg/dL 06:45</td><td> County in Serum or Triglyceride Health Care Plasma </td><td> [facility] 173
(30-200) mg/dL </td> Cholesterol in 94 mg/dL <150 <td> 10/14/2019 [facility] er LDL mg/dL 06:45</td><td> [facility] [Mass/volume] LDL Cholesterol Health Car e in Serum or </td><td> [facility] Plasma 94
(<150) mg/dL </td> ID Date Data Source [id number] 10/14/2019 01:50:00 PM [facility] [id number] Corporation Name Value Range Interpretation Description Data Sup porting Code Source(s) Document(s ) Echo 2D [id number] [facility] <td> 10/14/2019 [facility] [employer]Mode [id number] 13:50</td><td> [facility] Complete [id number] Echo 2D [employer] Health Care (TTE) Non-Invasive Complete (TTE) [employer] Cardiology </td><td> Laboratory [id number] Advanced
Physician [facility]
[address] [id number] [place]
[address] Phone [phone] Non-Invasive Adult
Echocardiogram Cardiology Report Name:
SELINA BROWER Laboratory
Study Date: Advanced 10/14/2019
01:50 PM MRN: Physician [id number]
[facility] BP: 124/96
mmHg : [address]
Gender: [place], [place] Female Age:
59 yrs [id number]
Height: 66 Phone (360) in Account
Number: [phone] Fax [phone]
([phone]) Weight: 253 lb [phone] BSA: 2.2 m2
Patient Adult Location: 5NE Echocardiogram Reason For Report Study:
CARDIOMYOPATHY Name: LEONARDA Malik OSORIOTran Physician: IVY HUNTER Study Date: Performed By: 10/14/2019 Olga, 01:50 PM Lakisha
Interpretation Summary The left ventricle BP: is severely 124/96 mmHg dilated.
There is normal : left 1960 ventricular wall thickness. Gender: Left Female ventricular
systolic Age: 59 yrs function is severely reduced. Height: 66 in Ejection
Fraction is Account 20-25%. There Number: is severe [id number] global hypokinesis of Weight: 253 lb the left
ventricle. BSA: 2.2 m2 The right ventricle is
normal in size. Patient ICD lead Location: 5NE visualized in
the right Reason For ventricle. Study: Right CARDIOMYOPATHY ventricular systolic

function is Ordering reduced. Physician: Indexed left IVY HUNTER atrial volume is moderately
increased. Performed By: Trivial aortic Olga, valve Lakisha regurgitation.

Mild thickening of Interpretation [...] spectral and ventricle. color flow
Doppler). Right (84799). Study ventricular quality is systolic good. A [...] regurgitation. color flow Mitral Doppler). Valve Mild (32069). Study thickening of quality is the mitral [...] cm _ Reading LVIDd: 6.3 cm Physician: LV mass(C)d: Vida Forbes 242.9 grams 10/14/2019
[...] 03:20 PM

</td> ID Date Data Source [id number] 10/13/2019 09:43:00 AM [facility] [id number] Corporation Name Value Range Interpretation Description Data Sup porting Code Source(s) Document(s ) Chest PA (PACSIMAGE <td> 10/13/2019 [place] [facility] 09:43</td><td> [facility] ) Final Chest PA & Health Care Result Lateral [facility] Name: LEONARDA, </td><td><marti IOLA MRN: raph [id number] Sex: F styleCode="Ital : 1960 ics">(PACSIMAGE Location: F Admitting Physician: )</paragraph><b EMERGENCY r/>
SERVICE Final Result Requesting Physician: THEODORE

LIZETT Name: LEONARDA, Exam: CHEST PA IOLA AND LATERAL
MRN: 10/13/2019 09:54 [id number] Sex: F HISTORY:
Chest pain : PROCEDURE: [...] flow Finalizing to the apices Radiologist:
Joleen Niño and melva MD Transcribed septal Date: 10/13/2019 thickening 10:55 consistent with Finalized Date: mild chronic 10/13/2019 10:56 congestionn
HEART and MEDIASTINUM: Cardiomegaly. Defibrillator with its wire
tip in the right ventricle.
BONES and SOFT TISSUES: Normal

IMPRESSION:

Cardiomegaly with mild congestion.

Resident Radiologist:
Attending Radiologist: Joleen Niño MD
Finalizing Radiologist: Joleen Niño MD
Transcribed Date: 10/13/2019 10:55
Finalized Date: 10/13/2019 10:56

</td > Procedure Vital Signs ID Date Data Source UNK [...] 19.0000 {} Normal (applies to 19.0000 {} [place] rate Set non-numeric results) [facility] Heart rate 82.0000 {} Normal (applies to 82.0000 {} [place] non-numeric results) [facility] Body temperature 97.0000 {} Normal (applies to 97.0000 {} [place] non-numeric results) [facility] [...] 18.0000 {} Normal (applies to 18.0000 {} [place] rate Set non-numeric results) [facility] Heart rate 86.0000 {} Normal (applies to 86.0000 {} [place] non-numeric results) [facility] Body temperature 97.7000 {} Normal (applies to 97.7000 {} [place] non-numeric results) [facility] wt - obtain Normal (applies to {} [facility] [place] non-numeric results) [facility] weight - kg 115.0000 {} Normal (applies to 115.0000 {} [place] non-numeric results) [facility] height - cm Normal (applies to {} [facility] [place] non-numeric results) [facility]
--- NOTE | 2020-09-12 12:01 | PDOC ---
History of Present Illness - General Chief Complaint: Shortness of Breath Stated Complaint: ASTHMA History Source: Patient Exam Limitations: No Limitations - History of Present Illness Initial Comments: 09/12/20 12:16 60 y.o. F with PMH of HFrHF 25% s/p ICD and stents, Afib (on Eliquis), DM, morbid obesity, asthma, VAHID on CPAP, HTN, Trop leak. Presenting due to shortness of breath that started this morning. Patient states she woke up and was having difficulty breathing. She says this is a common occurrence when the seasons change. Pt states she had tried 4 treatments with her inhaler but it has pro vided minimal relief. Patient denies headache, fever, chills, N/V/D. She endorses midsternal chest pain that radiates to her back. PCP: Reece Lanza PMHx: HFrHF 25% s/p ICD and stents, Afib (on Eliquis), DM, morbid obesity, asthma, VAHID on CPAP, HTN Meds: In Chart Allergies: Many, In chart 09/12/20 12:29 09/12/20 12:33 Timing/Duration: 4-6 hours Severity: moderate Past History - Medical History Allergies/Adverse Reactions: Allergies Allergy/AdvReac Type Severity Reaction Status Date / Time tomato Allergy Mild Hives Verified 09/12/20 11:28 chlorpheniramine Allergy Verified 09/12/20 11:28 cimetidine Allergy Verified 09/12/20 11:28 codeine [Codeine] Allergy Verified 09/12/20 11:28 ibuprofen Allergy Verified 09/12/20 11:28 latex [Latex] Allergy Verified 09/12/20 11:28 Latex, Natural Rubber Allergy Verified 09/12/20 11:28 pseudoephedrine Allergy Verified 09/12/20 11:28 salmeterol xinafoate Allergy Verified 09/12/20 11:28 [From Advair Diskus] shellfish derived Allergy Verified 09/12/20 11:28 Sulfa (Sulfonamide Allergy Verified 09/12/20 11:28 Antibiotics) [Sulfa(Sulfonamide Antibiotics)] Chocolate Allergy Mild Hives Uncoded 09/12/20 11:28 shrimp Allergy Mild Hives Uncoded 09/12/20 11:28 Home Medications: Ambulatory Orders Insulin Glargine,Hum.rec.anlog [Lantus Solostar PEN -] 26 units SQ AM 08/09/16 Budesonide/Formeterol Fumarate [SYMBICORT 160/4.5mcg -] 2 puff PO BID 10/14/16 Albuterol 2.5/Ipratropium 0.5 [Duoneb -] 1 amp NEB Q6H PRN #90 amp 05/21/19 Levothyroxine [Synthroid -] 75 mcg PO DAILY #30 tablet 05/21/19 Insulin Glargine,Hum.rec.anlog [Lantus Solostar PEN -] 10 units SQ HS 08/13/19 Apixaban [Eliquis -] 5 mg PO BID 11/02/19 Linaclotide [Linzess] 290 mcg PO Q2D 11/02/19 Sacubitril/Valsartan [Entresto 24 mg-26 mg Tablet] 1 each PO BID 11/02/19 Spironolactone [Aldactone -] 25 mg PO DAILY tablet 12/13/19 Potassium Chloride 10 meq PO DAILY 01/15/20 Pregabalin [Lyrica -] 25 mg PO BID 01/15/20 Montelukast Na [Singulair -] 10 mg PO HS #30 tablet 01/20/20 Pantoprazole Sodium [Protonix -] 40 mg PO DAILY #30 tablet.ec 01/20/20 Furosemide [Lasix -] 20 mg PO DAILY tablet 07/11/20 Ethyl Chloride 100 ml TP QID 10 Days #1 spray 08/01/20 Atorvastatin Ca [Lipitor] 80 mg PO HS 09/03/20 Carvedilol [Coreg] 6.25 mg PO BID 09/03/20 Dexlansoprazole [Dexilant] 60 mg PO DAILY 09/03/20 Lipase/Protease/Amylase [Zenpep Dr 40,000 Unit Capsule] 1 each PO TID 09/03/20 Magnesium Hydroxide [Milk of Magnesia] 400 mg PO DAILY 09/03/20 Polyethylene Glycol 3350 [Miralax 119 gm Btl -] 17 mg PO DAILY 09/03/20 Tiotropium [place] [Spiriva Respimat] 4 gm IH DAILY 09/03/20 Anemia: Yes Asthma: Yes Cancer: No Cardiac Disorders: Yes (MT X 2, pacemaker, Afib) CVA: No COPD: Yes CHF: Yes (S/P ICD) DVT: No Dementia: No Diabetes: Yes GI Disorders: Yes (PEPTIC ULCER) Disorders: (CKD) HTN: Yes Hypercholesterolemia: Yes Liver Disease: No Psychiatric Problems: Yes (DEPRESSION) Seizures: No Thyroid Disease: Yes (hypo) - Surgical History Abdominal Surgery: Yes Appendectomy: No Cardiac Surgery: Yes (pacemaker and stents) Cholecystectomy: Yes GI Surgery: Yes (CHOLECYSTECTOMY, HYSTERECTOMY) Lung Surgery: No Neurologic Surgery: No Orthopedic Surgery: Yes (bilateral knee replacement) - Immunization History Immunization Up to Date: No - Psycho-Social/Smoking History Smoking Status: No Smoking History: Never smoked Have you smoked in the past 12 months: No Number of Cigarettes Smoked Daily: 0 - Substance Abuse Hx (Audit-C & DAST Scrn) How often the patient has a drink containing alcohol: Never Score: In Men: 4 or > Positive; In Women: 3 or > Positive: 0 Screen Result (Pos requires Nsg. Audit-10AR): Negative In the last yr the pt used illegal drug/Rx for NonMed reason: No Score: Yes response is considered Positive: 0 Screen Result (Positive result requires Nsg. DAST-10): Negative Review of Systems - Review of Systems Able to Perform ROS?: Yes Is the patient limited Mexican proficient: No Constitutional: No: Chills, Fever HEENTM: No: Blurred Vision, Double Vision Respiratory: Yes: Cough, Shortness of Breath Cardiac (ROS): No: Chest Pain, Lightheadedness ABD/GI: No: Constipated, Diarrhea, Nausea, Vomiting : No: Burning, Dysuria Musculoskeletal: Yes: Back Pain. No: Muscle Pain, Muscle Weakness Integumentary: No: Bruising, Rash, Sweating Neurological: No: Headache, Numbness, Dizziness Hematologic/Lymphatic: No: Blood Clots, Easy Bruising *Physical Exam - Vital Signs Last Vital Signs Temp Pulse Resp BP Pulse Ox 98.2 F 117 H 24 H 124/65 98 09/12/20 11:28 09/12/20 11:28 09/12/20 11:28 09/12/20 11:28 09/12/20 11:28 - Physical Exam General Appearance: Yes: Nourished, Appropriately Dressed Respiratory/Chest: positive: Lungs Clear, Normal Breath Sounds. negative: Chest Tender Cardiovascular: positive: Regular Rate, Irregularly Irregular. negative: Regular Rhythm, Edema, JVD, Murmur Gastrointestinal/Abdominal: positive: Normal Bowel Sounds, Flat, Soft. negative: Tender, Guarding, Rebound, Tenderness Musculoskeletal: positive: Normal Inspection. negative: CVA Tenderness Extremity: positive: Normal Inspection. negative: Tender, Cyanosis, Pedal Edema, Swelling, Calf Tenderness Integumentary: positive: Normal Color, Dry, Warm Neurologic: positive: Fully Oriented, Alert, Normal Mood/Affect, Normal Response ED Treatment Course - LABORATORY CBC & Chemistry Diagram: 09/13/20 05:40 09/13/20 05:40 Medical Decision Making - Medical Decision Making 09/12/20 12:33 60 y.o. F with PMH of HFrHF 25% s/p ICD and stents, Afib (on Eliquis), DM, morbid obesity, asthma, VAHID on CPAP, HTN, Trop leak. DDx: CHF exacerbation, Asthma, COPD, Pneumonia Labs: Na 136, K 5.2, trop 0.31, BNP 4361 VBG: pH 7.354, CO2 37.4, O2 88 EKG: NSR, QTc 512ms, rate 93 CXR: Enlarged heart no sign of infiltrate or failure, congestive changes have cleared. - Placed on Bi-Pap Dispo: Admit tele 09/12/20 17:44 Discharge - Discharge Information Problems reviewed: Yes Clinical Impression/Diagnosis: COPD exacerbation - Follow up/Referral - Patient Discharge Instructions - Post Discharge Activity
[2020-09-12] MEDS ORDERED: ACETAMINOPHEN 1000 MG/100 ML VIAL (NON FORMULARY) IVPB ONE (12:37)
[2020-09-12] MEDS ORDERED: ACETAMINOPHEN INJECTION 100 ML IVPB ONE (14:11)
--- NOTE | 2020-09-12 14:43 | PDOC ---
Documentation entered by Bebeto Reed SCRIBE, acting as scribe for Wendy Menon MD. Wendy Menon MD: This documentation has been prepared by the christal, Bebeto Reed SCRIBE, under my direction and personally reviewed by me in its entirety. I confirm that the documentation accurately reflects all work, treatment, procedures, and medical decision making performed by me. Attending Attestation - Resident Resident Name: AmarilisDavid - ED Attending Attestation I have performed the following: I have examined & evaluated the patient, The case was reviewed & discussed with the resident, I agree w/resident's findings & plan, Exceptions are as noted - HPI HPI: 09/12/20 12:57 The patient is a year old female with a significant past medical history of HFrHF 25% s/p ICD and stents, MIx2,CHF, DM, CKD, Afib (on Eliquis), hypothyroidism, HTN, HLD, asthma, peptic ulcer disease, and depression who presents to the emergency department for evaluation of shortness of breath that began this morning. The patient reports symptoms began when she woke up this morning, causing her to use 4 treatments of her inhaler to minimal relief. She also reports chest pain that radiates to her L arm. She notes this shortness of breath has happened in the past when the seasons change. Pt notes a recent reduction in her lasix from 40mg to 20mg because it was affecting her kidneys. The patient denies abdominal pain, cough, fever, chills, nausea, vomiting, and/or any GI symptoms. Denies any symptoms. Denies any other symptoms. Allergies: tomato, chlorpheniramine, cimetidine, codeine, ibuprofen, latex, pseu doephedrine, shellfish, sulfa, chocolate, shrimp Social history: Lives with family. No tobacco, ETOH or drug use. Surgical history: pacemaker, stents, cholecystectomy, hysterectomy, bilateral knee replacement Meds: as documented in EMR PMD: Dr. Reece Lanza [place] Deck: Dr. Mooney - Physicial Exam PE: 09/12/20 12:02 Agree w resident exam - Medical Decision Making 09/12/20 14:41 60yo F with MMP including CHF presents to the ED with SOB after reduction in diuretics 2/2 MU [place] with diminiashed BS at the bases of lungs, but no other over signs of fluid overload Sleeping upright at night Likely CHF exacerbation but PNA vs ACS vs COVID vs asthma on ddx. Pt is on eliquis and reports compliance making PE much less likely. \ Plan: -labs -CXR -diuretics -obs admission Discharge - Discharge Information Problems reviewed: Yes - Follow up/Referral Referrals: Reece Lanza MD [Primary Care Provider] - - Patient Discharge Instructions - Post Discharge Activity
[2020-09-12 14:51] LABS: EOS % 0.6 % (0-4.5); HEMATOCRIT 37.4 % (32.4-45.2); HEMOGLOBIN 11.7 GM/dL (10.7-15.3); LYMPH % 15.2 % (8-40); MCH 25.7 pg (25.7-33.7); MCHC 31.4 g/dl (32.0-36.0); MEAN PLT VOLUME 10.6 fl (7.5-11.1); MONO % 5.4 % (3.8-10.2); NEUT % 77.8 % (42.8-82.8); PLATELET COUNT 286 K/MM3 (134-434); RBC 4.56 M/mm3 (3.60-5.2); RDW 17.6 % (11.6-15.6); WHITE BLOOD COUNT 9.3 K/mm3 (4.0-10.0)
[2020-09-12 15:17] LABS: VENOUS BASE EXCESS -4.6 mmol/L (-2-2); VENOUS O2 SATURATION 96.4 % (70-80); VENOUS PCO2 37.4 mmHg (38-52); VENOUS PH 7.354 (7.310-7.410)
[2020-09-12 15:27] LABS: ALBUMIN 3.9 g/dl (3.4-5.0); BILIRUBIN,TOTAL 0.5 mg/dL (0.2-1); BLOOD UREA NITROGEN 12.1 mg/dL (7-18); CALCIUM 9.2 mg/dL (8.5-10.1); CREATININE 1.2 mg/dL (0.55-1.3); N-TERMINAL BNP 4361.2 pg/ml (5-125); POTASSIUM 5.2 mmol/L (3.5-5.1); TOT PROT 8.1 g/dl (6.4-8.2)
[2020-09-12] MEDS ORDERED: FUROSEMIDE 40 MG/4 ML INJECTABLE VIAL IVPUSH ONE (15:36)
[2020-09-12] MEDS ORDERED: FUROSEMIDE 40 MG/4 ML INJECTABLE VIAL ONE (15:41)
--- OUTSIDE RECORDS SUMMARY | 2020-09-12 17:18 | XMS ---
:1960 Author Organization [facility] Care Team Providers Name Role Phone JAIRON PEREZ Unavailable Unavailable MUSIAL, ERNA Unavailable Unavailable TAOISM, HUMAYUN Unavailable Unavailable EMERGENCY SERVICE, X Unavailable [...] is protected by Article 27-F of the [place] State Public Health law. If you continue you may haveaccess to information: Regarding HIV / AIDS; Provided by facilities licensed or operated by the [facility] Office of Mental Health; or Provided by the [facility] Office for People With Developmental Disabilities. If such information is present, then the following [facility] mandated warning applies: This information has [...] law may result in a fine or retirement sentence or both. A general authorization for the release of medical or other information is NOT sufficient authorization for further disclosure. Allergies and Adverse Reactions Type Description Substance Reaction Status Data Source(s ) Drug allergy Unable to Assess Unable to Assess [facility] Encounters Encounter Providers Location Date Indications Data Source(s ) Outpatient Attender: NIKITA, 05/04/2020 G47.33 [facility] OLEGAdmitter: 06:00:00 AM Health Car elizabeth [facility] ED [employer] OLEGReferrer: COCO SHELTON G47.33 Outpatient Attender: KAREL 05/01/2020 06:45:00 Z03.818 [facility] [employer] Z03.818 Outpatient Attender: JAIRON Latif 01/08/2020 08:53:00 [facility] MARSHALANAdmitter: JAIRON DE LA OReferrer: JAIRON DE LA O Outpatient Attender: NIKITA 12/21/2019 06:00:00 R06.02 [facility] OLEGAdmitter: RAHEL SHELTON [facility] OLEGReferrer: Rickey SHELTON R06.02 Outpatient Attender: TAOISM, 10/26/2019 I27.0 I42.8 [facility] HUMAYUNAdmitter: TAOISM, 12:54:00 PM [facility] HUMAYUNReferrer: Abida HOLT ERNA I27.0 I42.8 Inpatient 10/21/2019 08:07:00 AM [facility] Inpatient 10/21/2019 08:07:00 AM [facility] Outpatient Attender: TRISTA, 10/13/2019 06:00:00 AM I42.8 [facility] SANDRA LegerAdmitter: [facility] [employer] SANDRA WESTONReferrer: SANDRA WESTON I42.8 Inpatient Attender: SANDRA WESTON 10/12/2019 08:46:00 [facility] SAN[facility] WESTON - 10/15/2019 [facility] LRuth 05:41:00 PM EST ADHF Patient admitted. Emergency Attender: SANDRA WESTON 10/12/2019 07:06:00 PM PENNY N [facility] ArsenAttender: EMERGENCY EST Hea [facility] SERVICE, XAdmitter: SANDRA WESTON PAIN Outpatient Attender: TAOISM, 10/05/2019 11:05:00 [facility] HUMAYUNAdmitter: RAHEL PRADO [facility] HUMAYUNReferrer: SANDRA WESTON Insurance Providers Payer name Policy type Policy ID Covered Covered green party's Policy P annmarie / Coverage green party ID relationship to Arellano Inf ormation type arellano HIP MEDICARE [id number] SP [id number] VIP 1 MEDICAID [id number] SP [id number] KENDAL MEDICARE [id number] SP [id number] MEDICAID [id number] SP [id number] HIP MEDICARE [id number] SP [id number] VIP 1 KENDAL MEDICARE [id number] SP [id number] MEDICARE [id number] SP [id number] 8 MEDICARE [id number] SP [id number] A MEDICARE [id number] SP [id number] 18 [id number] KENDAL MEDICARE [id number] SP [id number] BLUE CROSS [id number] SP [id number] SENIOR PLAN 44 O [id number] 01 [id number] HIP O [id number] 01 [id number] 1 W [id number] 01 [id number] EMPIRE [id number] [facility] [address] [employer] MEDICARE [id number] PART B [id number] [facility] [id number] HIP MEDICARE [id number] SP [id number] M VIP MEDICARE [id number] SP [id number] A MEDIBLUE OP O [id number] 01 [id number] MEDICARE [id number] SP [id number] A MEDICARE [id number] SP [id number] M [id number] 01 [id number] A Problems, Conditions, and Diagnoses Code Display Name Description Problem Type Effective Data Sour ce(s) Dates E66.01 Morbid (severe) MORBID (SEVERE) Diagnosis 05/04/2020 [place] obesity due to OBESITY DUE TO 06:00:00 AM Count y Health excess calories EXCESS CALORIES EDT Care [employer] G47.33 Obstructive sleep OBSTRUCTIVE SLEEP Diagnosis 05/04/2020 [place] apnea (adult) APNEA (ADULT) 06:00:00 AM [facility] (pediatric) (PEDIATRIC) EDT [facility] [employer] M47.9 Spondylosis, SPONDYLOSIS, Diagnosis 01/08/2020 [facility] unspecified UNSPECIFIED 08:53:00 AM [facility] EST R06.02 Shortness of breath SHORTNESS OF BREATH Diagnosis [place] 06:00:00 AM [facility] EST Care [employer] J44.9 Chronic obstructive CHRONIC OBSTRUCTIVE Diagnosis [place] pulmonary disease, PULMONARY DISEASE, 12:54:00 PM [facility] unspecified UNSPECIFIED EST Care Corporation I50.23 Acute on chronic ACUTE ON CHRONIC Diagnosis 10/26/2019 [facility] systolic SYSTOLIC 12:54:00 PM [facility] (congestive) heart (CONGESTIVE) HEART EST Care failure FAILURE Corporation I42.8 Other OTHER Diagnosis 10/26/2019 [place] cardiomyopathies CARDIOMYOPATHIES 12:54:00 PM [facility] Health EST Care [employer] I27.0 Primary pulmonary PRIMARY PULMONARY Diagnosis 10/26/2019 [place] hypertension HYPERTENSION 12:54:00 PM [facility] EST Care [employer] 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) [facility] (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) Diagnosis 019 [place] use of USE OF 05:41:00 PM [facility] anticoagulants ANTICOAGULANTS EST Care [employer] Z91.040 Latex allergy status LATEX ALLERGY Diagnosis 10/15/2019 [place] STATUS 05:41:00 PM [facility] [email or web address] Z88.8 Allergy status to ALLERGY STATUS TO Diagnosis 10/15/2019 [place] other drugs, OTH DRUG/MEDS/BIOL 05:41:00 PM Critical access hospital medicaments and SUBST STATUS [facility] biological [employer] substances status Z88.2 Allergy status to ALLERGY STATUS TO Diagnosis 10/15/2019 [place] sulfonamides status SULFONAMIDES STATUS 05:41:0 0 PM [facility] [place] AS Z88.5 Allergy status to ALLERGY STATUS TO Diagnosis 10/15/2019 [place] narcotic agent NARCOTIC AGENT 05:41:00 PM Count y Health status STATUS [place] AS 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) OFFICE ADMINISTRATION (CURRENT) Diagnosis 019 [place] use of insulin USE OF INSULIN 05:41:00 PM [facility] [place] AS 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 10/15/2019 [facility] infarction INFARCTION 05:41:00 PM [facility] [place] AS Z95.810 Presence of PRESENCE OF Diagnosis 10/15/2019 [place] automatic AUTOMATIC 05:41:00 PM [facility] (implantable) (IMPLANTABLE) [facility] cardiac CARDIAC [facility] defibrillator DEFIBRILLATOR Z95.5 Presence of coronary PRESENCE OF Diagnosis 10/15/2019 [facility] [place] angioplasty implant CORONARY 05:41:00 PM [facility] and graft ANGIOPLASTY IMPLANT EST Care AND GRAFT [employer] I48.0 Paroxysmal atrial PAROXYSMAL ATRIAL Diagnosis 10/15/2019 [place] fibrillation FIBRILLATION 05:41:00 PM [facility] [place] AS E11.40 Type 2 diabetes TYPE 2 DIABETES Diagnosis 10/15/2019 [place] mellitus with MELLITUS WITH 05:41:00 PM [facility] diabetic neuropathy, DIABETIC EST Care unspecified NEUROPATHY, UNSP Corpora tion E11.22 Type 2 diabetes TYPE 2 DIABETES Diagnosis 10/15/2019 [place] mellitus with MELLITUS W DIABETIC 05:41:00 PM [facility] diabetic chronic CHRONIC KIDNEY [facility] kidney disease DISEASE Corporatio n N18.9 Chronic kidney CHRONIC KIDNEY Diagnosis 10/15/2019 [facility] clay disease, unspecified DISEASE, 05:41:00 PM Critical access hospital UNSPECIFIED [facility] I25.10 Atherosclerotic ATHSCL HEART Diagnosis 10/15/2019 [facility] heart disease of DISEASE OF [place] 05:41:00 PM [facility] [place] coronary CORONARY ARTERY W/O EST Care artery without ANG PCTRS Corporatio n angina pectoris I27.23 Pulmonary PULMONARY Diagnosis 10/15/2019 [place] hypertension due to HYPERTENSION DUE TO 05:41:0 0 PM [facility] lung diseases and LUNG DISEASES AND EST Care hypoxia HYPOXIA Corporation Z68.41 Body mass index BODY MASS INDEX Diagnosis 10/15/2019 [place] (BMI) 40.0-44.9, (BMI) 40.0-44.9, 05:41:00 PM [place] adult ADULT EST [facility] I13.0 Hypertensive heart HYP HRT and CHR Diagnosis 10/12/2019 [place] and chronic kidney KDNY DIS W HRT FAIL 08:46:00 PM [facility] disease with heart AND STG 1-4/UNSP EST Care failure and stage 1 CHR KDNY Corpo ration through stage 4 chronic kidney disease, or unspecified chronic kidney disease Results ID Date Data Source [id number] 09/02/2020 10:28:00 PM EDT [facility] Name Value Range Interpretation Description Data Sup porting Code Source(s) Document(s ) SARS [facility] coronavirus 2 RNA This lab was ordered by [facility] and reported by [facility]. ID Date Data Source [id number] 07/20/2020 04:30:00 PM EDT [facility] Name Value Range Interpretation Description Data Sup porting Code Source(s) Document(s ) SARS [facility] coronavirus 2 RNA This lab was ordered by [facility] and reported by [facility]. ID Date Data Source [id number] 07/05/2020 08:10:00 PM EDT [facility] Name Value Range Interpretation Description Data Sup porting Code Source(s) Document(s ) SARS [facility] coronavirus 2 RNA This lab was ordered by [facility] and reported by [facility]. ID Date Data Source [id number] 05/23/2020 09:03:00 PM EDT [facility] Name Value Range Interpretation Description Data Sup porting Code Source(s) Document(s ) SARS [facility] CORONAVIRUS 2 RNA This lab was ordered by [facility] and reported by [facility]. ID Date Data Source [id number] 02/20/2020 01:00:00 PM EDT [facility] Name Value Range Interpretation Code Description Data Riya rce(s) Supporting Document(s ) 2019-nCoV [facility] N XXX Ql MITCH N2 This lab was ordered by [facility] and reported by [facility]. ID Date Data Source [id number] 10/15/2019 06:11:00 AM EST [facility] [id number] Corporation Name Value Range Interpretation Description Data Sup porting Code Source(s) Document(s ) Leukocytes 7.8 k/mm3 4.8-10 <td> 10/15/2019 [place] [#/volume] in .8 06:11</td><td> [facility] Blood by k/mm3 WBC </td><td> Health Care Automated count [employer] 7.8
(4.8-10.8) k/mm3 </td> Hemoglobin 11.1 g/dL 12.0-1 <td> 10/15/2019 [place] [Mass/volume] 6.0 06:11</td><td> [facility] in Blood g/dL [facility] </td><td><marti [employer] raph styleCode="Bold "> 11.1 L </paragraph>
(12.0-16.0) g/dL </td> Erythrocytes 4.22 m/mm3 3.90-5 <td> 10/15/2019 [facility] r [#/volume] in .20 06:11</td><td> [facility] Blood m/mm3 RBC </td><td> Haolianluo 4.22
(3.90-5.20) m/mm3 </td> Hematocrit 37.3 % 37.0-4 <td> 10/15/2019 [place] [Volume 7.0 % 06:11</td><td> County Fraction] of HCT </td><td> Health Care Blood by [employer] Automated count 37.3
(37.0-47.0) % </td> Erythrocyte 26.3 pg 27.0-3 <td> 10/15/2019 [place] mean 1.5 pg 06:11</td><td> [facility] corpuscular [facility] hemoglobin </td><td><marti Corporation [Entitic mass] raph by Automated styleCode="Bold count "> 26.3 L </paragraph>
(27.0-31.5) pg </td> Erythrocyte 88.4 fL 81.0-9 <td> 10/15/2019 [place] mean 9.0 fL 06:11</td><td> County corpuscular MCV </td><td> Health Care volume [Entitic Corporation volume] by 88.4 Automated count
(81.0-99.0) fL </td> Erythrocyte 29.8 % 32.0-3 <td> 10/15/2019 [place] mean 6.0 % 06:11</td><td> County corpuscular [facility] hemoglobin </td><td><martiXenome concentration raph [Mass/volume] styleCode="Bold in Blood from "> Fetus by 29.8 Automated count L </paragraph>
(32.0-36.0) % </td> Platelet mean 11.3 fL 9.8-12 <td> 10/15/2019 [facility] r volume [Entitic .8 fL 06:11</td><td> County volume] in MPV </td><td> Health Care Blood by Corporation Automated count 11.3
(9.8-12.8) fL </td> Erythrocyte 14.6 % 11.5-1 <td> 10/15/2019 [place] distribution 4.5 % 06:11</td><td> County width [Entitic RDW Health Care volume] by </td><td><Convers[employer] Automated count raph styleCode="Bold "> 14.6 H </paragraph>
(11.5-14.5) % </td> Lymphocytes 14.3 % 17.0-5 <td> 10/12/2019 [place] [#/volume] in 0.0 % 21:32</td><td> County Blood by Lymphocytes Health Care Automated count </td><td><marti Corporat ion raph styleCode="Bold "> 14.3 L </paragraph>
(17.0-50.0) % </td> Platelets 271 k/mm3 160-41 <td> 10/15/2019 [place] [#/volume] in 0 06:11</td><td> [facility] Blood by k/mm3 Platelet Count [facility] Automated count </td><td> [employer] 271
(160-410) k/mm3 </td> Basophils+Eosin 0.0 % 0.0-5. <td> 10/12/2019 [facility] ophils+Monocyte 0 % 21:32</td><td> County s [#/volume] in Eosinophils [facility] Blood by </td><td> [employer] Automated count 0.0
(0.0-5.0) % </td> Monocytes/Leuko 7.9 % 0.0-11 <td> 10/12/2019 [facility] cytes [Pure .0 % 21:32</td><td> [facility] number Monocytes. Health Care fraction] in </td><td> [facility] Blood by Automated count 7.9
(0.0-11.0) % </td> Basophils 0.1 % 0.0-2. <td> 10/12/2019 [place] [#/volume] in 0 % 21:32</td><td> [facility] Blood by Basophils [facility] Automated count </td><td> [employer] 0.1
(0.0-2.0) % </td> Immature 0.9 % 0.0-0. <td> 10/12/2019 [place] granulocytes/10 5 % 21:32</td><td> [facility] 0 leukocytes in IG% [facility] Blood by </td><td><[employer]vers[employer] Automated count raph styleCode="Bold "> 0.9 H </paragraph>
(0.0-0.5) %
The IG fraction represents metamyelocytes, myelocytes and/or
promyelocytes and is only reported as part of the automated
differential when found at a percentage of less than 6.
If higher than 6%, a manual differential will be performed.

(0.0-0.5) % </td> Sodium 135 mEq/L 135-14 <td> 10/15/2019 [place] [Moles/volume] 5 06:11</td><td> County in Serum or mEq/L Sodium-Serum Health Care Plasma </td><td> [employer] 135
(135-145) mEq/L </td> Neutrophils [#] 76.8 % 40.0-7 <td> 10/12/2019 [facility] in Body fluid 6.0 % 21:32</td><td> County by Manual count Neutrophils Health Care </td><td><[employer]vers[employer] raph styleCode="Bold "> 76.8 H </paragraph>
(40.0-76.0) % </td> Glucose 157 mg/dL 70-105 <td> 10/15/2019 [place] [Mass/volume] mg/dL 06:11</td><td> County in Blood Glucose-Serum Health Care </td><td><Convers[employer] raph styleCode="Bold "> 157 H </paragraph>
(70-105) mg/dL </td> Potassium 3.9 mEq/L 3.5-5. <td> 10/15/2019 [place] [Moles/volume] 1 06:11</td><td> County in Serum or mEq/L Potassium-Serum Health Care Plasma </td><td> [employer] 3.9
(3.5-5.1) mEq/L </td> Chloride 101 mEq/L 98-107 <td> 10/15/2019 [place] [Moles/volume] mEq/L 06:11</td><td> County in Serum or Chloride Health Care Plasma </td><td> [employer] 101
(98-107) mEq/L </td> Urea nitrogen 19 mg/dL 6-22 <td> 10/15/2019 [facility] r [Mass/volume] mg/dL 06:11</td><td> County in Blood BUN </td><td> [facility] [employer] 19
(6-22) mg/dL </td> Carbon dioxide, 26 mEq/L 22-30 <td> 10/15/2019 [facility] total mEq/L 06:11</td><td> County [Moles/volume] CO2 </td><td> Health Car e in Serum or Corporation Plasma 26
(22-30) mEq/L </td> Creatinine 1.14 mg/dL 0.57-1 <td> 10/15/2019 [place] [Moles/volume] .11 06:11</td><td> County in Serum or mg/dL Creatinine. Health Care Plasma </td><td><marti Corporation raph styleCode="Bold "> 1.14 H </paragraph>
(0.57-1.11) mg/dL </td> Aspartate 9 U/L 4-35 <td> 10/15/2019 [place] aminotransferas U/L 06:11</td><td> County e [Enzymatic AST (SGOT) Health Care activity/volume </td><td> [employer] ] in Serum or Plasma 9
(4-35) U/L </td> Alanine 6 U/L 6-55 <td> 10/15/2019 [place] aminotransferas U/L 06:11</td><td> County e [Enzymatic ALT (SGPT) Health Care activity/volume </td><td> [employer] ] in Serum or Plasma 6
(6-55) U/L </td> Bilirubin.total 0.3 mg/dL 0.2-1. <td> 10/15/2019 [facility] [Mass/volume] 3 06:11</td><td> [facility] in Blood mg/dL Bilirubin - Health Care Vdolg </td><td> 0.3
(0.2-1.3) mg/dL </td> Proteins - 6.8 g/dL 6.4-8. <td> 10/15/2019 [place] Total 3 g/dL 06:11</td><td> [facility] Proteins - Health Holidog </td><td> 6.8
(6.4-8.3) g/dL </td> Calcium 8.9 mg/dL 8.6-10 <td> 10/15/2019 [place] [Mass/volume] .2 06:11</td><td> County in Blood mg/dL Calcium Health Care </td><td> [employer] 8.9
(8.6-10.2) mg/dL </td> Albumin 3.7 g/dL 3.4-4. <td> 10/15/2019 [place] [Mass/volume] 8 g/dL 06:11</td><td> County in Serum or Albumin Health Care Plasma </td><td> [employer] 3.7
(3.4-4.8) g/dL </td> Globulin 3.1 gm/dL 2.9-4. <td> 10/15/2019 [place] [Mass/volume] 0 06:11</td><td> County in Serum gm/dL Globulin Health Care </td><td> [employer] 3.1
(2.9-4.0) gm/dL </td> Anion gap in 8 mEq/L 7-13 <td> 10/15/2019 [place] Serum or Plasma mEq/L 06:11</td><td> [facility] Anion Gap Health Care </td><td> [employer] 8
(7-13) mEq/L </td> Icteric index Non <td> 10/15/2019 [facility] r of Serum or Icteric 06:11</td><td> [facility] Plasma Icteric Index [facility] </td><td> [employer] Non Icteric
</td> Hemolysis index No <td> 10/15/2019 [facility] of Serum or Hemolysis 06:11</td><td> [facility] Plasma Hemolysis Index Health Care </td><td> [employer] No Hemolysis
</td> Lipemic index No Lipemia <td> 10/15/2019 [facility] er of Serum or 06:11</td><td> [facility] Plasma Lipemia Index Health Care </td><td> [employer] No Lipemia
</td> Phosphate 3.1 mg/dL 2.3-4. <td> 10/15/2019 [place] [Mass/volume] 7 06:11</td><td> County in Serum or mg/dL Inorganic Health Care Plasma Phosphorus [facility] </td><td> 3.1
(2.3-4.7) mg/dL </td> Prothrombin 11.1 secs 9.8-12 <td> 10/15/2019 [place] time (PT) .0 06:11</td><td> [facility] secs Prothrombin Health Care Time. [facility] </td><td> 11.1
(9.8-12.0) secs </td> aPTT panel - 26.3 secs 25.0-3 <td> 10/15/2019 [place] Platelet poor 2.0 06:11</td><td> [facility] plasma secs Partial [facility] Care Thromboplastin [facility] Time </td><td> 26.3
(25.0-32.0) secs </td> Magnesium 1.9 mg/dL 1.6-2. <td> 10/15/2019 [place] [Mass/volume] 6 06:11</td><td> County in Serum or mg/dL Magnesium Level Health Care Plasma </td><td> [employer] 1.9
(1.6-2.6) mg/dL </td> Cholesterol in 50 mg/dL >60 <td> 10/14/2019 [facility] er HDL mg/dL 06:45</td><td> [facility] [Mass/volume] HDL Cholesterol [facility] e in Serum or </td><td> [employer] Plasma 50
(>60) mg/dL </td> Cholesterol 179 mg/dL 125-24 <td> 10/14/2019 [place] [Moles/volume] 0 06:45</td><td> [facility] in Serum or mg/dL Cholesterol Health Care Plasma </td><td> [employer] 179
(125-240) mg/dL </td> Glucose 167 mg/dL 70-105 <td> 10/15/2019 [place] [Mass/volume] mg/dL 11:45</td><td> [facility] in Capillary Glucose - Health Care blood by Finger Stick [employer] Glucometer </td><td><marti raph styleCode="Bold "> 167 H </paragraph>
(70-105) mg/dL </td> Triglyceride 173 mg/dL 30-200 <td> 10/14/2019 [place] [Mass/volume] mg/dL 06:45</td><td> County in Serum or Triglyceride Health Care Plasma </td><td> [facility] 173
(30-200) mg/dL </td> Cholesterol in 94 mg/dL <150 <td> 10/14/2019 [facility] er LDL mg/dL 06:45</td><td> [facility] [Mass/volume] LDL Cholesterol Health Car e in Serum or </td><td> [facility] Plasma 94
(<150) mg/dL </td> ID Date Data Source [id number] 10/14/2019 01:50:00 PM [facility] [id number] Corporation Name Value Range Interpretation Description Data Sup porting Code Source(s) Document(s ) Echo 2D [id number] [facility] <td> 10/14/2019 [facility]Mode [id number] 13:50</td><td> [facility] Complete [id number] Echo 2D [facility]-Mode Health Care (TTE) Non-Invasive Complete (TTE) [employer] Cardiology </td><td> Laboratory [id number] Advanced
Physician [facility]
[id number] [place]
[address] Phone [phone] Non-Invasive Adult
Echocardiogram Cardiology Report Name:
SELINA BROWER Laboratory
Study Date: Advanced 10/14/2019
01:50 PM MRN: Physician [id number]
Services, PC BP: 124/96
mmHg : [address]
Gender: [place], [place] Female Age:
59 yrs [id number]
Height: 66 Phone (650) in Account
Number: [phone] Fax [phone]
([phone]) Weight: 253 lb [phone] BSA: 2.2 m2
Patient Adult Location: 5NE Echocardiogram Reason For Report Study:
CARDIOMYOPATHY Name: LEONARDA Malik OSORIOTran Physician: IVY HUNTRE Study Date: Performed By: 10/14/2019 [place], 01:50 PM Lakisha
Interpretation Summary The left ventricle BP: is severely 124/96 mmHg dilated.
There is normal : left 1960 ventricular wall thickness. Gender: Left Female ventricular
systolic Age: 59 yrs function is severely reduced. Height: 66 in Ejection
Fraction is Account 20-25%. There Number: is severe [id number] global hypokinesis of Weight: 253 lb the [...] spectral and ventricle. color flow
Doppler). Right (24002). Study ventricular quality is systolic good. A [...] regurgitation. color flow Mitral Doppler). Valve Mild (62413). Study thickening of quality is the mitral [...] Measurements & regurgitation. Calculations MV E max vihba:

MV dec Pulmonic time: 0.18 sec Valve [...] 03:20 PM

</td> ID Date Data Source [id number] 10/13/2019 09:43:00 AM [facility] [id number] Corporation Name Value Range Interpretation Description Data Sup porting Code Source(s) Document(s ) Chest PA (PACSIMAGE <td> 10/13/2019 [place] [facility] 09:43</td><td> [facility] ) Final Chest PA & Health Care Result Lateral [facility] Name: LEONARDA, </td><td><marti IOLA MRN: raph [id number] Sex: F styleCode="Ital : 1960 ics">(PACSIMAGE Location: F Admitting Physician: )</paragraph><b EMERGENCY r/>
SERVICE Final Result Requesting Physician: THEODORE

LIZETT Name: LEONARDA, Exam: CHEST PA IOLA AND LATERAL
MRN: 10/13/2019 09:54 [id number] Sex: F HISTORY:
Chest pain : PROCEDURE: [...] 19.0000 {} Normal (applies to 19.0000 {} [place] rate Set non-numeric results) Coun ty Health Care Corporati on Heart rate 82.0000 {} Normal (applies to 82.0000 {} [place] non-numeric results) Coun ty Health Care Corporati on Body temperature 97.0000 {} Normal (applies to 97.0000 {} [place] non-numeric results) Coun ty Health Care Corporati [...] 18.0000 {} Normal (applies to 18.0000 {} [place] rate Set non-numeric results) Coun ty Health Care Corporati on Heart rate 86.0000 {} Normal (applies to 86.0000 {} [place] non-numeric results) Coun ty Health Care Corporati on Body temperature 97.7000 {} Normal (applies to 97.7000 {} [place] non-numeric results) Coun ty Health Care Corporati on wt - obtain Normal (applies to {} [place] non-numeric results) Coun ty Health Care Corporati on weight - kg 115.0000 {} Normal (applies to 115.0000 {} [place] non-numeric results) [facility] height - cm Normal (applies to {} [facility] [place] non-numeric results) [facility]
[2020-09-12 17:37] LABS: EPI CELLS >36 /uL (0-25.1); HYALINE CASTS 3 /uL (0-3.1); URINE APPEARANCE CLEAR; URINE BACTERIA 1173 /uL (0-1359); URINE BILIRUBIN NEGATIVE (NEGATIVE); URINE COLOR YELLOW; URINE GLUCOSE (UA) 1+ (NEGATIVE); URINE KETONE NEGATIVE (NEGATIVE); URINE LEUK ESTERASE TRACE (NEGATIVE); URINE NITRITE NEGATIVE (NEGATIVE); URINE PROTEIN NEGATIVE (NEGATIVE); URINE RBC 3 /uL (0-23.9); URINE UROBILINOGEN 0.2 mg/dL (0.2-1.0); URINE WBC 47 /uL (0-25.8)
[2020-09-12] MEDS ORDERED: ALBUTEROL SO4 2.5/IPRATROPIUM 0.5 INH SOL 3 ML VIAL.NEB. NEB PRN (22:34)
[2020-09-12] MEDS ORDERED: ALBUTEROL SO4 HFA INHALER IH PRN (22:48)
[2020-09-12] MEDS: SACUBITRIL/VALSARTAN 24 MG-26 MG TABLET PO SCH (23:37)
[2020-09-12] MEDS: PREGABALIN 25 MG CAPSULE PO SCH (23:37)
[2020-09-12] MEDS: APIXABAN 5 MG TABLET PO SCH (23:37)
[2020-09-13] MEDS ORDERED: PT OWN MED DRAWER 7, Y5N ONE ×2 (06:32→09:30)
[2020-09-13] MEDS ORDERED: LEVOTHYROXINE NA 50 MCG TABLET (FP) ONE (06:37)
[2020-09-13] MEDS ORDERED: LEVOTHYROXINE NA 25 MCG TABLET (FP) ONE (06:38)
[2020-09-13] MEDS: INSULIN SLIDING SCALE (NOVOLOG) 1 VIAL SQ SCH ×4 (06:42→21:49)
[2020-09-13] MEDS: INSULIN (LEVEMIR) 100 UNITS/ML UNITS SQ SCH ×2 (06:43→21:52)
[2020-09-13] MEDS ORDERED: LEVOTHYROXINE NA 75 MCG TABLET (FP) PO SCH (07:00)
[2020-09-13] MEDS ORDERED: LEVOTHYROXINE PO SCH (07:00)
[2020-09-13 07:37] LABS: BASO % 0.7 % (0-2.0); EOS % 1.7 % (0-4.5); HEMATOCRIT 33.4 % (32.4-45.2); HEMOGLOBIN 10.5 GM/dL (10.7-15.3); LYMPH % 32.1 % (8-40); MCH 25.5 pg (25.7-33.7); MCHC 31.3 g/dl (32.0-36.0); MEAN CELL VOLUME 81.4 fl (80-96); MEAN PLT VOLUME 10.1 fl (7.5-11.1); MONO % 7.4 % (3.8-10.2); NEUT % 58.1 % (42.8-82.8); PLATELET COUNT 264 K/MM3 (134-434); RDW 17.8 % (11.6-15.6); WHITE BLOOD COUNT 7.6 K/mm3 (4.0-10.0)
[2020-09-13 08:20] LABS: ALBUMIN 3.3 g/dl (3.4-5.0); BILIRUBIN,TOTAL 0.6 mg/dL (0.2-1); BLOOD UREA NITROGEN 16.8 mg/dL (7-18); CALCIUM 9.1 mg/dL (8.5-10.1); CREATININE 1.2 mg/dL (0.55-1.3); POTASSIUM 4.2 mmol/L (3.5-5.1); TOT PROT 6.7 g/dl (6.4-8.2)
[2020-09-13] MEDS: MAGNESIUM HYDROX 2400MG/30ML ORAL SUSPENSION 30 ML CUP PO SCH (09:32)
[2020-09-13] MEDS: PREGABALIN 25 MG CAPSULE PO SCH ×2 (09:32→21:44)
[2020-09-13] MEDS: SACUBITRIL/VALSARTAN 24 MG-26 MG TABLET PO SCH ×2 (09:32→21:44)
[2020-09-13] MEDS: PANTOPRAZOLE 40 MG TABLET PO SCH (09:33)
[2020-09-13] MEDS: CARVEDILOL 6.25 MG TABLET (FP) PO SCH ×2 (09:33→21:44)
[2020-09-13] MEDS: APIXABAN 5 MG TABLET PO SCH ×2 (09:33→21:44)
[2020-09-13] MEDS: FUROSEMIDE 40 MG/4 ML INJECTABLE VIAL IVPUSH SCH (09:33)
[2020-09-13] MEDS: POLYETHYLENE GLYCOL 3350 119 GM BTL PO SCH (09:33)
[2020-09-13] MEDS: SPIRONOLACTONE 25 MG TABLET PO SCH (09:33)
--- NOTE | 2020-09-13 09:52 | EKG ---
Test Reason : Blood Pressure : / mmHG Vent. Rate : 093 BPM Atrial Rate : 093 BPM P-R Int : 188 ms QRS Dur : 122 ms QT Int : 412 ms P-R-T Axes : 117 -17 105 degrees QTc Int : 512 ms POOR DATA QUALITY, INTERPRETATION MAY BE ADVERSELY AFFECTED NORMAL SINUS RHYTHM LEFT BUNDLE BRANCH BLOCK ABNORMAL ECG WHEN COMPARED WITH ECG OF 02-SEP-2020 21:45, PREMATURE VENTRICULAR COMPLEXES ARE NO LONGER PRESENT Confirmed by MD Shelton, Guanakito ([id number]) on 09/13/2020 9:52:07 AM Referred By: Confirmed By:Guanakito Peoples MD
--- NOTE | 2020-09-13 10:07 | PN ---
Progress Note (short form) - Note Progress Note: PULMONARY CONSULTATION DICTATED 09/13/20 IMP DYSPNEA ACUTE ON CHRONIC CHF NON-ISCHEMIC CARDIOMYOPATHY S/P ICD DM COPD/ASTHMA PAF HTN VAHID ON CPAP DM + TROPONIN PLAN SUPPLEMENTAL O2 LASIX INHALED BRONCHODILATORS DAILY WTS TREND TROPONIN CPAP AT NIGHT DR GANN Problem List - Problems (1) Abdominal pain Code(s): R10.9 - UNSPECIFIED ABDOMINAL PAIN (2) Acute on chronic systolic and diastolic heart failure, NYHA class 3 Code(s): I50.43 - ACUTE ON CHRONIC COMBINED SYSTOLIC AND DIASTOLIC HRT FAIL (3) Asthma Code(s): J45.909 - UNSPECIFIED ASTHMA, UNCOMPLICATED (4) CAD (coronary artery disease) Code(s): I25.10 - ATHSCL HEART 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 (5) CHF exacerbation Code(s): I50.9 - HEART FAILURE, UNSPECIFIED Qualifiers: Heart failure type: unspecified Qualified Code(s): I50.9 - Heart failure, unspecified (6) COPD (chronic obstructive pulmonary disease) Code(s): J44.9 - CHRONIC OBSTRUCTIVE PULMONARY DISEASE, UNSPECIFIED (7) Diabetes Code(s): E11.9 - TYPE 2 DIABETES MELLITUS WITHOUT COMPLICATIONS (8) Dyspnea Code(s): R06.00 - DYSPNEA, UNSPECIFIED Qualifiers: Dyspnea type: shortness of breath Qualified Code(s): R06.02 - Shortness of breath; R06.00 - Dyspnea, unspecified; R06.01 - Orthopnea (9) Hypothyroidism Code(s): E03.9 - HYPOTHYROIDISM, UNSPECIFIED (10) ICD (implantable cardioverter-defibrillator) in place Code(s): Z95.810 - PRESENCE OF AUTOMATIC (IMPLANTABLE) CARDIAC DEFIBRILLATOR (11) Paroxysmal A-fib Code(s): I48.0 - PAROXYSMAL ATRIAL FIBRILLATION (12) Troponin level elevated Code(s): R79.89 - OTHER SPECIFIED ABNORMAL FINDINGS OF BLOOD CHEMISTRY
--- NOTE | 2020-09-13 12:13 | CON.CARD ---
Cardiology Consult (text) - Consultation Consultation Note: Chief Complaint: short of breath History of Present Illness: 60 F here with mild shortness of breath. Recent admit for same, for chf, was diuresed and felt better but symptoms all of a sudden got worse yesterday, felt the rain and change in weather has effected her breathing in the past. no cp palps dizzy loc pnd orthopnea. Sees dr whitaker for cardio. no edema, weight stable at home. also complains of abdominal pain, she was supposed to see Dr Cooper this week PMH: morbid obesity nonisch CMP AF HTN - Past Medical History Cardio/Vascular: Yes: CHF, HTN, Hyperlipdemia Pulmonary: Yes: Asthma, Sleep Apnea Renal/: Yes: Renal Failure ...: No Endocrine: Yes: Diabetes Mellitus, Hypothyroidism - Past Surgical History Past Surgical History: Yes: Cholecystectomy, Joint Replacement (left tkr), Permanent Pacemaker (ICD) - Alcohol/Substance Use Hx Alcohol Use: No - Smoking History Smoking history: Unknown if ever smoked Have you smoked in the past 12 months: No Aproximately how many cigarettes per day: 0 - Social History Usual Living Arrangement: With Spouse ADL: Independent History of Recent Travel: No Home Medications Home Medications Medication Instructions Recorded Insulin Glargine,Hum.rec.anlog 26 units SQ AM 08/09/16 [Lantus Solostar PEN -] Budesonide/Formeterol Fumarate 2 puff PO BID 10/14/16 [SYMBICORT 160/4.5mcg -] Albuterol 2.5/Ipratropium 0.5 1 amp NEB Q6H PRN #90 amp 05/21/19 [Duoneb -] Levothyroxine [Synthroid -] 75 mcg PO DAILY #30 tablet 05/21/19 Insulin Glargine,Hum.rec.anlog 10 units SQ HS 08/13/19 [Lantus Solostar PEN -] Apixaban [Eliquis -] 5 mg PO BID 11/02/19 Linaclotide [Linzess] 290 mcg PO Q2D 11/02/19 Sacubitril/Valsartan [Entresto 24 1 each PO BID 11/02/19 mg-26 mg Tablet] Spironolactone [Aldactone -] 25 mg PO DAILY tablet 12/13/19 Potassium Chloride 10 meq PO DAILY 01/15/20 Pregabalin [Lyrica -] 25 mg PO BID 01/15/20 Montelukast Na [Singulair -] 10 mg PO HS #30 tablet 01/20/20 Pantoprazole Sodium [Protonix -] 40 mg PO DAILY #30 tablet.ec 01/20/20 Furosemide [Lasix -] 20 mg PO DAILY tablet 07/11/20 Ethyl Chloride 100 ml TP QID 10 Days #1 spray 08/01/20 Atorvastatin Ca [Lipitor] 80 mg PO HS 09/03/20 Carvedilol [Coreg] 6.25 mg PO BID 09/03/20 Dexlansoprazole [Dexilant] 60 mg PO DAILY 09/03/20 Lipase/Protease/Amylase [Zenpep Dr 1 each PO TID 09/03/20 40,000 Unit Capsule] Magnesium Hydroxide [Milk of 400 mg PO DAILY 09/03/20 Magnesia] Polyethylene Glycol 3350 [Miralax 17 mg PO DAILY 09/03/20 119 gm Btl -] Tiotropium [place] [Spiriva 4 gm IH DAILY 09/03/20 Respimat] Current Medications Generic Name Dose Route Start Last Admin Trade Name Freq PRN Reason Stop Dose Admin Albuterol Sulfate 2 puff 09/12/20 22:48 Ventolin Hfa Inhaler - IH Q6H PRN SHORTNESS OF BREATH Albuterol/Ipratropium 1 amp 09/12/20 22:34 Duoneb - NEB Q6H PRN SHORTNESS OF BREATH Apixaban 5 mg 09/12/20 22:45 09/13/20 09:33 Eliquis - PO 5 mg BID DOM Administration Atorvastatin Calcium 80 mg 09/13/20 22:00 Lipitor - PO HS DOM Budesonide/Formoterol Fumarate 2 puff 09/13/20 10:00 Symbicort 160/4.5mcg - IH BID DOM Carvedilol 6.25 mg 09/13/20 10:00 09/13/20 09:33 Coreg - PO 6.25 mg BID DOM Administration Furosemide 20 mg 09/13/20 10:00 09/13/20 09:33 Lasix Injection - IVPUSH 20 mg DAILY DOM Administration Insulin Aspart 1 vial 09/13/20 07:00 09/13/20 11:53 Novolog Vial Sliding Scale - SQ 2 units ACHS DOM Administration Protocol Insulin Detemir 10 units 09/13/20 22:00 Levemir Vial SQ HS DOM Insulin Detemir 26 units 09/13/20 07:00 09/13/20 06:43 Levemir Vial SQ 26 units AM DOM Administration Levothyroxine Sodium 75 mcg 09/14/20 07:00 Synthroid - PO ACBK DOM Magnesium Hydroxide 30 ml 09/13/20 10:00 09/13/20 09:32 Milk Of Magnesia - PO 30 ml DAILY DOM Administration Montelukast Sodium 10 mg 09/13/20 22:00 Singulair - PO HS DOM Pantoprazole Sodium 40 mg 09/13/20 10:00 09/13/20 09:33 Protonix - PO 40 mg DAILY DOM Administration Polyethylene Glycol 17 gm 09/13/20 10:00 09/13/20 09:33 Miralax (For Daily Use) - PO 17 gm DAILY DOM Administration Pregabalin 25 mg 09/12/20 22:45 09/13/20 09:32 Lyrica - PO 25 mg BID DOM Administration Sacubitril/Valsartan 1 tab 09/12/20 22:45 09/13/20 09:32 Entresto 24 Mg-26 Mg Tablet PO 1 tab BID DOM Administration Spironolactone 25 mg 09/13/20 10:00 09/13/20 09:33 Aldactone - PO 25 mg DAILY DOM Administration Tiotropium [place] 2 puff 09/13/20 10:00 Spiriva Respimat IH DAILY [facility] Family Medical History Family History: Denies (no known cmp) Review of Systems - Review of Systems Constitutional: denies: Chills, Fever Eyes: denies: Eye Pain HENT: denies: Nasal Congestion Neck: denies: Stiffness Cardiovascular: denies: Palpitations Respiratory: denies: Orthopnea, PND Gastrointestinal: denies: Diarrhea, Rectal Bleeding Genitourinary: denies: Burning, Hematuria Musculoskeletal: denies: Muscle Pain Integumentary: denies: Rash Neurological: denies: Numbness, Seizure, Syncope Endocrine: denies: Excessive Sweating Hematology/Lymphatic: denies: Excessive Bleeding Vital Signs: Vital Signs Period Temp Pulse Resp BP Sys/Mcgrath Pulse Ox Last 24 Hr 97.4 F-98.1 F 81-92 16-19 109-119/51-91 94-100 Constitutional: Yes: Well Nourished, No Distress, Obese Eyes: No: Sclera Icterus HENT: No: Nasal Congestion Neck: No: Decreased ROM Respiratory: Yes: CTA Bilaterally. No: Accessory Muscle Use, Rales, Wheezes Gastrointestinal: Yes: Normal Bowel Sounds. No: Distention, Hepatomegaly, Palpable Mass, Tenderness Cardiovascular: Yes: Regular Rate and Rhythm JVD: No Heart Sounds: Yes: S1, S2. No: Gallop Murmur: No: Systolic Murmur, Diastolic Murmur Musculoskeletal: Yes: Other (No kyphosis) Extremities: No: Cool, Cyanosis Edema: no Integumentary: No: Jaundice Neurological: Yes: Alert, Oriented (x3) Psychiatric: No: Agitated Laboratory Last Values WBC 7.6 K/mm3 (4.0-10.0) 09/13/20 05:40 RBC 4.10 M/mm3 (3.60-5.2) 09/13/20 05:40 Hgb 10.5 GM/dL (10.7-15.3) L 09/13/20 05:40 Hct 33.4 % (32.4-45.2) 09/13/20 05:40 MCV 81.4 fl (80-96) 09/13/20 05:40 MCH 25.5 pg (25.7-33.7) L 09/13/20 05:40 MCHC 31.3 g/dl (32.0-36.0) L 09/13/20 05:40 RDW 17.8 % (11.6-15.6) H 09/13/20 05:40 Plt Count 264 K/MM3 (134-434) 09/13/20 05:40 MPV 10.1 fl (7.5-11.1) 09/13/20 05:40 Absolute Neuts (auto) 4.4 K/mm3 (1.5-8.0) 09/13/20 05:40 Neutrophils % 58.1 % (42.8-82.8) D 09/13/20 05:40 Lymphocytes % 32.1 % (8-40) D 09/13/20 05:40 Monocytes % 7.4 % (3.8-10.2) 09/13/20 05:40 Eosinophils % 1.7 % (0-4.5) D 09/13/20 05:40 Basophils % 0.7 % (0-2.0) 09/13/20 05:40 Nucleated RBC % 0 % (0-0) 09/13/20 05:40 VBG pH 7.354 (7.310-7.410) 09/12/20 13:30 POC VBG pCO2 37.4 mmHg (38-52) L 09/12/20 13:30 POC VBG pO2 88.0 mmHg (28-48) H 09/12/20 13:30 VBG HCO3 20.4 mmol/L (23-29) L 09/12/20 13:30 VBG O2 Sat ([place]) 96.4 % (70-80) H 09/12/20 13:30 VBG Base Excess -4.6 mmol/L (-2-2) L 09/12/20 13:30 Sodium 137 mmol/L (136-145) 09/13/20 05:40 Potassium 4.2 mmol/L (3.5-5.1) 09/13/20 05:40 Chloride 100 mmol/L (98-107) 09/13/20 05:40 Carbon Dioxide 30 mmol/L (21-32) 09/13/20 05:40 Anion Gap 7 MMOL/L (8-16) L 09/13/20 05:40 BUN 16.8 mg/dL (7-18) 09/13/20 05:40 Creatinine 1.2 mg/dL (0.55-1.3) 09/13/20 05:40 Est GFR (CKD-EPI)AfAm 56.89 09/13/20 05:40 Est GFR (CKD-EPI)NonAf 49.08 09/13/20 05:40 POC Glucometer 213 UNITS (80-120) 09/13/20 05:12 Random Glucose 204 mg/dL (74-106) H 09/13/20 05:40 Lactic Acid 1.8 mmol/L (0.4-2.0) 09/12/20 20:00 Calcium 9.1 mg/dL (8.5-10.1) 09/13/20 05:40 Total Bilirubin 0.6 mg/dL (0.2-1) 09/13/20 05:40 AST 9 U/L (15-37) L 09/13/20 05:40 ALT 9 U/L (13-61) L 09/13/20 05:40 Alkaline Phosphatase 78 U/L (45-117) 09/13/20 05:40 Troponin I 0.31 ng/ml (0.00-0.05) H 09/12/20 13:30 B-Natriuretic Peptide 4361.2 pg/ml (5-125) H 09/12/20 13:30 Total Protein 6.7 g/dl (6.4-8.2) 09/13/20 05:40 Albumin 3.3 g/dl (3.4-5.0) L 09/13/20 05:40 TSH 3.10 uIU/ml (0.358-3.74) 09/13/20 05:40 Urine Color Yellow 09/12/20 13:30 Urine Appearance Clear 09/12/20 13:30 Urine pH 5.0 (5.0-8.0) 09/12/20 13:30 Ur Specific [place] 1.007 (1.010-1.035) L 09/12/20 13:30 Urine Protein Negative (NEGATIVE) 09/12/20 13:30 Urine Glucose (UA) 1+ (NEGATIVE) H 09/12/20 13:30 Urine Ketones Negative (NEGATIVE) 09/12/20 13:30 Urine Blood Negative (NEGATIVE) 09/12/20 13:30 Urine Nitrite Negative (NEGATIVE) 09/12/20 13:30 Urine Bilirubin Negative (NEGATIVE) 09/12/20 13:30 Urine Urobilinogen 0.2 mg/dL (0.2-1.0) 09/12/20 13:30 Ur Leukocyte Esterase Trace (NEGATIVE) 09/12/20 13:30 Urine WBC (Auto) 47 /uL (0-25.8) 09/12/20 13:30 Urine RBC (Auto) 3 /uL (0-23.9) 09/12/20 13:30 Urine Casts (Auto) 3 /uL (0-3.1) 09/12/20 13:30 U Epithel Cells (Auto) >36 /uL (0-25.1) 09/12/20 13:30 Urine Bacteria (Auto) 1173 /uL (0-1359) 09/12/20 13:30 Cardiac Catheterization 2019 non-obstructive CAD echo 05/2019 tds, mildly dilated LV, severe global hypok, RV nl CXR: no congestion EKG: sinus, old LBBB tele: sinus IMP/PLAN: Acute on chronic systolic CHF, dyspnea, asthma/COPD -discharged on lasix 20 mg daily with 40 mg one day a week - per patient no weight gain or edema at home, did not miss lasix doses - weight charted here higher than dc - cont IV lasix for now - pulm following for history of asthma/copd -monitor daily chem7, wts -Cont Toprol/Entresto, aldactone elevated trop: - indeterminate range, nl ck, similar to prior baseline values, not c/w acs HTN: - cont home meds paroxysmal afib - in sinus --cont home bb - cont home eliquis for AC (5 bid) hld: -cont statin
--- NOTE | 2020-09-13 14:04 | HP ---
Admitting History and Physical - Primary Care Physician PCP: Mela Lewis - Admission Chief Complaint: sob History of Present Illness: 60 y.o. F with PMH of HFrHF 25% s/p ICD and stents, Afib (on Eliquis), DM, morbid obesity, asthma, VAHID on CPAP, HTN, Trop leak. Presenting due to shortness of breath that started this morning. Patient states she woke up and was having difficulty breathing. She says this is a common occurrence when the seasons change. Pt states she had tried 4 treatments with her inhaler but it has provided minimal relief. Patient denies headache, fever, chills, N/V/D. She endorses midsternal chest pain that radiates to her back. pt recently dc from hospital - Past Medical History Cardiovascular: Yes: AFIB, CHF, HTN, Hyperlipdemia Pulmonary: Yes: Asthma, Bronchitis, Pneumonia, Pulmonary Embolus, Sleep Apnea Gastrointestinal: Yes: Other (multiple incisional hernias) Renal/: Yes: Renal Failure ...LMP: 09/02/20 ...: No Heme/Onc: Yes: Anemia Endocrine: Yes: Diabetes Mellitus, Hypothyroidism - Past Surgical History Past Surgical History: Yes: Cholecystectomy, Joint Replacement (left tkr), Permanent Pacemaker (ICD) - Advance Directives Advance Directives: Yes: Living Will - Smoking History Smoking history: Never smoked Have you smoked in the past 12 months: No Aproximately how many cigarettes per day: 0 - Alcohol/Substance Use Hx Alcohol Use: No - Social History ADL: Independent History of Recent Travel: No Home Medications - Allergies Allergies/Adverse Reactions: Allergies Allergy/AdvReac Type Severity Reaction Status Date / Time tomato Allergy Mild Hives Verified 09/12/20 11:28 chlorpheniramine Allergy Verified 09/12/20 11:28 cimetidine Allergy Verified 09/12/20 11:28 codeine [Codeine] Allergy Verified 09/12/20 11:28 ibuprofen Allergy Verified 09/12/20 11:28 latex [Latex] Allergy Verified 09/12/20 11:28 Latex, Natural Rubber Allergy Verified 09/12/20 11:28 pseudoephedrine Allergy Verified 09/12/20 11:28 salmeterol xinafoate Allergy Verified 09/12/20 11:28 [From Advair Diskus] shellfish derived Allergy Verified 09/12/20 11:28 Sulfa (Sulfonamide Allergy Verified 09/12/20 11:28 Antibiotics) [Sulfa(Sulfonamide Antibiotics)] Chocolate Allergy Mild Hives Uncoded 09/12/20 11:28 shrimp Allergy Mild Hives Uncoded 09/12/20 11:28 - Home Medications Home Medications: Ambulatory Orders Insulin Glargine,Hum.rec.anlog [Lantus Solostar PEN -] 26 units SQ AM 08/09/16 Budesonide/Formeterol Fumarate [SYMBICORT 160/4.5mcg -] 2 puff PO BID 10/14/16 Albuterol 2.5/Ipratropium 0.5 [Duoneb -] 1 amp NEB Q6H PRN #90 amp 05/21/19 Levothyroxine [Synthroid -] 75 mcg PO DAILY #30 tablet 05/21/19 Insulin Glargine,Hum.rec.anlog [Lantus Solostar PEN -] 10 units SQ HS 08/13/19 Apixaban [Eliquis -] 5 mg PO BID 11/02/19 Linaclotide [Linzess] 290 mcg PO Q2D 11/02/19 Sacubitril/Valsartan [Entresto 24 mg-26 mg Tablet] 1 each PO BID 11/02/19 Spironolactone [Aldactone -] 25 mg PO DAILY tablet 12/13/19 Potassium Chloride 10 meq PO DAILY 01/15/20 Pregabalin [Lyrica -] 25 mg PO BID 01/15/20 Montelukast Na [Singulair -] 10 mg PO HS #30 tablet 01/20/20 Pantoprazole Sodium [Protonix -] 40 mg PO DAILY #30 tablet.ec 01/20/20 Furosemide [Lasix -] 20 mg PO DAILY tablet 07/11/20 Ethyl Chloride 100 ml TP QID 10 Days #1 spray 08/01/20 Atorvastatin Ca [Lipitor] 80 mg PO HS 09/03/20 Carvedilol [Coreg] 6.25 mg PO BID 09/03/20 Dexlansoprazole [Dexilant] 60 mg PO DAILY 09/03/20 Lipase/Protease/Amylase [Zenpep Dr 40,000 Unit Capsule] 1 each PO TID 09/03/20 Magnesium Hydroxide [Milk of Magnesia] 400 mg PO DAILY 09/03/20 Polyethylene Glycol 3350 [Miralax 119 gm Btl -] 17 mg PO DAILY 09/03/20 Tiotropium [place] [Spiriva Respimat] 4 gm IH DAILY 09/03/20 Physical Examination Vital Signs: Vital Signs Temperature 98.1 F 09/13/20 13:28 Pulse Rate 85 09/13/20 13:28 Respiratory Rate 18 09/13/20 13:28 Blood Pressure 110/70 09/13/20 13:28 O2 Sat by Pulse Oximetry (%) 98 09/13/20 13:28 Constitutional: Yes: No Distress HENT: Yes: Atraumatic Neck: Yes: Supple Cardiovascular: Yes: Pulse Irregular Respiratory: Yes: Rhonchi, Wheezes Gastrointestinal: Yes: Normal Bowel Sounds Extremities: Yes: WNL Neurological: Yes: Alert, Oriented Labs: CBC, BMP 09/13/20 05:40 09/13/20 05:40 Imaging - Results X-ray: Report Reviewed Problem List - Problems (1) Acute on chronic systolic (congestive) heart failure Assessment/Plan: iv lasix cardio Code(s): I50.23 - ACUTE ON CHRONIC SYSTOLIC (CONGESTIVE) HEART FAILURE (2) Asthma Assessment/Plan: on meds duo nebs inhaler pulmonary on board Code(s): J45.909 - UNSPECIFIED ASTHMA, UNCOMPLICATED (3) Diabetes Assessment/Plan: insulin bgms Code(s): E11.9 - TYPE 2 DIABETES MELLITUS WITHOUT COMPLICATIONS (4) Hyperlipidemia Code(s): E78.5 - HYPERLIPIDEMIA, UNSPECIFIED (5) Hypertension Assessment/Plan: on meds monitor Code(s): I10 - ESSENTIAL (PRIMARY) HYPERTENSION Qualifiers: (6) Hypothyroidism Assessment/Plan: on meds Code(s): E03.9 - HYPOTHYROIDISM, UNSPECIFIED (7) Morbid obesity Code(s): E66.01 - MORBID (SEVERE) OBESITY DUE TO EXCESS CALORIES (8) Paroxysmal A-fib Assessment/Plan: on AC and other cardiac meds Code(s): I48.0 - PAROXYSMAL ATRIAL FIBRILLATION Assessment/Plan Laboratory Tests 09/12/20 09/12/20 09/12/20 13:30 13:30 13:30 WBC 9.3 RBC 4.56 Hgb 11.7 Hct 37.4 MCV 82.0 MCH 25.7 MCHC 31.4 L RDW 17.6 H Plt Count 286 MPV 10.6 Absolute Neuts (auto) 7.3 Neutrophils % 77.8 D Lymphocytes % 15.2 D Monocytes % 5.4 Eosinophils % 0.6 Basophils % 1.0 Nucleated RBC % 0 VBG pH 7.354 POC VBG pCO2 37.4 L POC VBG pO2 88.0 H VBG HCO3 20.4 L VBG O2 Sat ([place]) 96.4 H VBG Base Excess -4.6 L Sodium 136 Potassium 5.2 H Chloride 104 Carbon Dioxide 21 Anion Gap 11 BUN 12.1 Creatinine 1.2 Est GFR (CKD-EPI)AfAm 56.89 Est GFR (CKD-EPI)NonAf 49.08 POC Glucometer Random Glucose 268 H Lactic Acid Calcium 9.2 Total Bilirubin 0.5 AST 26 ALT 11 L Alkaline Phosphatase 91 Troponin I 0.31 H B-Natriuretic Peptide 4361.2 H Total Protein 8.1 Albumin 3.9 TSH Urine Color Urine Appearance Urine pH Ur Specific [place] Urine Protein Urine Glucose (UA) Urine Ketones Urine Blood Urine Nitrite Urine Bilirubin Urine Urobilinogen Ur Leukocyte Esterase Urine WBC (Auto) Urine RBC (Auto) Urine Casts (Auto) U Epithel Cells (Auto) Urine Bacteria (Auto) 09/12/20 09/12/20 09/13/20 13:30 20:00 05:12 WBC RBC Hgb Hct MCV MCH MCHC RDW Plt Count MPV Absolute Neuts (auto) Neutrophils % Lymphocytes % Monocytes % Eosinophils % Basophils % Nucleated RBC % VBG pH POC VBG pCO2 POC VBG pO2 VBG HCO3 VBG O2 Sat ([place]) VBG Base Excess Sodium Potassium Chloride Carbon Dioxide Anion Gap BUN Creatinine Est GFR (CKD-EPI)AfAm Est GFR (CKD-EPI)NonAf POC Glucometer 213 Random Glucose Lactic Acid 1.8 Calcium Total Bilirubin AST ALT Alkaline Phosphatase Troponin I B-Natriuretic Peptide Total Protein Albumin TSH Urine Color Yellow Urine Appearance Clear Urine pH 5.0 Ur Specific [place] 1.007 L Urine Protein Negative Urine Glucose (UA) 1+ H Urine Ketones Negative Urine Blood Negative Urine Nitrite Negative Urine Bilirubin Negative Urine Urobilinogen 0.2 Ur Leukocyte Esterase Trace Urine WBC (Auto) 47 Urine RBC (Auto) 3 Urine Casts (Auto) 3 U Epithel Cells (Auto) >36 Urine Bacteria (Auto) 1173 09/13/20 09/13/20 05:40 05:40 WBC 7.6 RBC 4.10 Hgb 10.5 L Hct 33.4 MCV 81.4 MCH 25.5 L MCHC 31.3 L RDW 17.8 H Plt Count 264 MPV 10.1 Absolute Neuts (auto) 4.4 Neutrophils % 58.1 D Lymphocytes % 32.1 D Monocytes % 7.4 Eosinophils % 1.7 D Basophils % 0.7 Nucleated RBC % 0 VBG pH POC VBG pCO2 POC VBG pO2 VBG HCO3 VBG O2 Sat (Declan) VBG Base Excess Sodium 137 Potassium 4.2 Chloride 100 Carbon Dioxide 30 Anion Gap 7 L BUN 16.8 Creatinine 1.2 Est GFR (CKD-EPI)AfAm 56.89 Est GFR (CKD-EPI)NonAf 49.08 POC Glucometer Random Glucose 204 H Lactic Acid Calcium 9.1 Total Bilirubin 0.6 AST 9 L ALT 9 L Alkaline Phosphatase 78 Troponin I B-Natriuretic Peptide Total Protein 6.7 Albumin 3.3 L TSH 3.10 Urine Color Urine Appearance Urine pH Ur Specific [place] Urine Protein Urine Glucose (UA) Urine Ketones Urine Blood Urine Nitrite Urine Bilirubin Urine Urobilinogen Ur Leukocyte Esterase Urine WBC (Auto) Urine RBC (Auto) Urine Casts (Auto) U Epithel Cells (Auto) Urine Bacteria (Auto) Active Medications Generic Name Dose Route Start Last Admin Trade Name Freq PRN Reason Stop Dose Admin Albuterol Sulfate 2 puff 09/12/20 22:48 Ventolin Hfa Inhaler - IH Q6H PRN SHORTNESS OF BREATH Albuterol/Ipratropium 1 amp 09/12/20 22:34 Duoneb - NEB Q6H PRN SHORTNESS OF BREATH Apixaban 5 mg 09/12/20 22:45 09/13/20 09:33 Eliquis - PO 5 mg BID DOM Administration Atorvastatin Calcium 80 mg 09/13/20 22:00 Lipitor - PO HS DOM Budesonide/Formoterol Fumarate 2 puff 09/13/20 10:00 Symbicort 160/4.5mcg - IH BID DOM Carvedilol 6.25 mg 09/13/20 10:00 09/13/20 09:33 Coreg - PO 6.25 mg BID DOM Administration Furosemide 20 mg 09/13/20 10:00 09/13/20 09:33 Lasix Injection - IVPUSH 20 mg DAILY DOM Administration Insulin Aspart 1 vial 09/13/20 07:00 09/13/20 11:53 Novolog Vial Sliding Scale - SQ 2 units ACHS DOM Administration Protocol Insulin Detemir 10 units 09/13/20 22:00 Levemir Vial SQ HS DOM Insulin Detemir 26 units 09/13/20 07:00 09/13/20 06:43 Levemir Vial SQ 26 units AM DOM Administration Levothyroxine Sodium 75 mcg 09/14/20 07:00 Synthroid - PO ACBK DOM Magnesium Hydroxide 30 ml 09/13/20 10:00 09/13/20 09:32 Milk Of Magnesia - PO 30 ml DAILY DOM Administration Montelukast Sodium 10 mg 09/13/20 22:00 Singulair - PO HS DOM Pantoprazole Sodium 40 mg 09/13/20 10:00 09/13/20 09:33 Protonix - PO 40 mg DAILY DOM Administration Polyethylene Glycol 17 gm 09/13/20 10:00 09/13/20 09:33 Miralax (For Daily Use) - PO 17 gm DAILY DOM Administration Pregabalin 25 mg 09/12/20 22:45 09/13/20 09:32 Lyrica - PO 25 mg BID DOM Administration Sacubitril/Valsartan 1 tab 09/12/20 22:45 09/13/20 09:32 Entresto 24 Mg-26 Mg Tablet PO 1 tab BID DOM Administration Spironolactone 25 mg 09/13/20 10:00 09/13/20 09:33 Aldactone - PO 25 mg DAILY DOM Administration Tiotropium [place] 2 puff 09/13/20 10:00 Spiriva Respimat IH DAILY [facility] COVERING FOR DR LEWIS TODAY
--- NOTE | 2020-09-13 15:04 | CONS ---
DATE OF CONSULTATION: 09/13/2020 REFERRING PHYSICIAN: HISTORY OF PRESENT ILLNESS: Patient is a 60-year-old female known to me from previous hospitalizations with a past medical history of congestive heart failure with severe LV dysfunction, status post AICD and stents, ASHD status post AL x2, CHF, diabetes, chronic kidney disease, atrial fibrillation, hypothyroidism, hypertension, hyperlipidemia, asthma, peptic ulcer disease, and depression admitted to [facility] with complaints of shortness of breath. Patient states the past couple of days though she has been having increasing shortness of breath. She woke up on the day of admission and took 4 treatments with minimal relief. She was also complaining of some chest pain radiating to the left arm. She presented to the emergency room. In the ER she was felt to have congestive heart failure. She was admitted to the floor and started on IV Lasix. Patient is a nonsmoker. She denies any history of occupational exposure to chemical fumes. She states that she was feeling relatively well a few days prior to this admission. PAST MEDICAL HISTORY: Again includes ischemic cardiomyopathy, ASHD, status post AL x2, CHF, diabetes, chronic kidney disease, atrial fibrillation, hypothyroidism, hypertension, hyperlipidemia, obstructive sleep apnea. CURRENT MEDICATIONS: Include Symbicort, Entresto, Eliquis, Lyrica, Spiriva, albuterol, DuoNeb, Coreg, milk of magnesia, Lipitor, NovoLog, Levemir, singular, Lasix, aldactone, Protonix, and Synthroid. REVIEW OF SYSTEMS: Positive dyspnea, positive chest pain, however, no hemoptysis. No abdominal pain. Current lower extremity edema. PHYSICAL EXAMINATION: General: Patient is a well-developed, well-nourished female currently awake, alert, in no acute respiratory distress. Vital Signs: She is currently afebrile, blood pressure 110/70, respiratory rate is 18, and O2 saturation is 98. HEENT: Normocephalic, atraumatic. Neck: Supple. Heart: Regular, S1, S2. Chest: Clear. Abdomen: Soft. Bowel sounds positive. Extremities: Lower extremity edema, limping. LABORATORY DATA: WBC is 7.6, hemoglobin 10.5, hematocrit 33.4, platelet count of 264,000. Venous blood gas 7.35, PCO2 of 37, a PO2 of 88. BUN is 16, creatinine 1.2. BNP is 4,361. Troponin is 0.31. IMPRESSION: 1. Dyspnea secondary to [id number] congestive heart failure. 2. Cardiomyopathy, status post automatic implantable cardioverted defibrillator. 3. Diabetes. 4. Chronic obstructive pulmonary disease, asthma, really not an acute exacerbation. 5. Paroxysmal atrial fibrillation. 6. Hypertension. 7. Obstructive sleep apnea on continuous positive airway pressure. 8. Positive troponins. PLAN: Supplemental O2. Continue Lasix. Inhaled bronchodilators. Daily weights. Trend troponins. CPAP at night. HARRIET GANN M.D. [id number]
[2020-09-13] MEDS: BUDESONIDE/FORMETEROL FUMARATE 160/4.5 mcg INHALER IH SCH ×2 (15:10→21:52)
[2020-09-13] MEDS: TIOTROPIUM BROMIDE 2.5 MCG (SPIRIVA) RESPIMAT INHALER IH SCH (15:12)
[2020-09-13] MEDS: ATORVASTATIN CA 80 MG TABLET (FP) PO SCH (21:44)
[2020-09-13] MEDS: MONTELUKAST NA 10 MG TABLET PO SCH (21:44)
[2020-09-13 21:54] LABS: PH,URINE 5.5 (5.0-8.0); URINE APPEARANCE CLEAR; URINE BILIRUBIN NEGATIVE (NEGATIVE); URINE COLOR YELLOW; URINE GLUCOSE (UA) NEGATIVE (NEGATIVE); URINE KETONE NEGATIVE (NEGATIVE); URINE LEUK ESTERASE NEGATIVE (NEGATIVE); URINE NITRITE NEGATIVE (NEGATIVE); URINE PROTEIN NEGATIVE (NEGATIVE); URINE UROBILINOGEN 0.2 mg/dL (0.2-1.0)
[2020-09-14] MEDS: INSULIN SLIDING SCALE (NOVOLOG) 1 VIAL SQ SCH ×4 (06:16→23:21)
[2020-09-14] MEDS: LEVOTHYROXINE NA 75 MCG TABLET (FP) PO SCH (06:16)
[2020-09-14] MEDS: INSULIN (LEVEMIR) 100 UNITS/ML UNITS SQ SCH ×2 (06:16→23:20)
[2020-09-14] MEDS: PREGABALIN 25 MG CAPSULE PO SCH ×2 (10:07→23:20)
[2020-09-14] MEDS: FUROSEMIDE 40 MG/4 ML INJECTABLE VIAL IVPUSH SCH (10:07)
[2020-09-14] MEDS: SACUBITRIL/VALSARTAN 24 MG-26 MG TABLET PO SCH ×2 (10:07→23:20)
[2020-09-14] MEDS: SPIRONOLACTONE 25 MG TABLET PO SCH (10:07)
[2020-09-14] MEDS: CARVEDILOL 6.25 MG TABLET (FP) PO SCH ×2 (10:07→23:20)
[2020-09-14] MEDS: PANTOPRAZOLE 40 MG TABLET PO SCH (10:07)
[2020-09-14] MEDS: APIXABAN 5 MG TABLET PO SCH ×2 (10:07→23:20)
[2020-09-14] MEDS: MAGNESIUM HYDROX 2400MG/30ML ORAL SUSPENSION 30 ML CUP PO SCH (10:08)
[2020-09-14] MEDS: POLYETHYLENE GLYCOL 3350 119 GM BTL PO SCH (10:10)
[2020-09-14] MEDS: TIOTROPIUM BROMIDE 2.5 MCG (SPIRIVA) RESPIMAT INHALER IH SCH (10:16)
[2020-09-14] MEDS: BUDESONIDE/FORMETEROL FUMARATE 160/4.5 mcg INHALER IH SCH ×2 (10:38→23:37)
--- NOTE | 2020-09-14 11:10 | PN ---
Progress Note (short form) - Note Progress Note: Chief Complaint: short of breath History of Present Illness: 60 F here with mild shortness of breath. Recent admit for same, for chf, was diuresed and felt better but symptoms all of a sudden got worse yesterday, felt the rain and change in weather has effected her breathing in the past. no cp palps dizzy loc pnd orthopnea. Sees dr whitaker for cardio. no edema, weight stable at home. also complains of abdominal pain, she was supposed to see Dr Cooper this week s: mild sob better today, no cp palps dizzy Current Medications Generic Name Dose Route Start Last Admin Trade Name Freq PRN Reason Stop Dose Admin Albuterol Sulfate 2 puff 09/12/20 22:48 09/14/20 10:16 Ventolin Hfa Inhaler - IH 2 puff Q6H PRN Administration SHORTNESS OF BREATH Albuterol/Ipratropium 1 amp 09/12/20 22:34 Duoneb - NEB Q6H PRN SHORTNESS OF BREATH Apixaban 5 mg 09/12/20 22:45 09/14/20 10:07 Eliquis - PO 5 mg BID DOM Administration Atorvastatin Calcium 80 mg 09/13/20 22:00 09/13/20 21:44 Lipitor - PO 80 mg HS DOM Administration Budesonide/Formoterol Fumarate 2 puff 09/13/20 10:00 09/14/20 10:38 Symbicort 160/4.5mcg - IH 2 puff BID DOM Administration Carvedilol 6.25 mg 09/13/20 10:00 09/14/20 10:07 Coreg - PO 6.25 mg BID DOM Administration Furosemide 20 mg 09/13/20 10:00 09/14/20 10:07 Lasix Injection - IVPUSH 20 mg DAILY DOM Administration Insulin Aspart 1 vial 09/13/20 07:00 09/14/20 11:04 Novolog Vial Sliding Scale - SQ 2 units ACHS DOM Administration Protocol Insulin Detemir 10 units 09/13/20 22:00 09/13/20 21:52 Levemir Vial SQ 10 units HS DOM Administration Insulin Detemir 26 units 09/13/20 07:00 09/14/20 06:16 Levemir Vial SQ 26 units AM DOM Administration Levothyroxine Sodium 75 mcg 09/14/20 07:00 09/14/20 06:16 Synthroid - PO 75 mcg ACBK DOM Administration Magnesium Hydroxide 30 ml 09/13/20 10:00 09/14/20 10:08 Milk Of Magnesia - PO Not Given DAILY DOM Montelukast Sodium 10 mg 09/13/20 22:00 09/13/20 21:44 Singulair - PO 10 mg HS DOM Administration Pantoprazole Sodium 40 mg 09/13/20 10:00 09/14/20 10:07 Protonix - PO 40 mg DAILY DOM Administration Polyethylene Glycol 17 gm 09/13/20 10:00 09/14/20 10:10 Miralax (For Daily Use) - PO Not Given DAILY DOM Pregabalin 25 mg 09/12/20 22:45 09/14/20 10:07 Lyrica - PO 25 mg BID DOM Administration Sacubitril/Valsartan 1 tab 09/12/20 22:45 09/14/20 10:07 Entresto 24 Mg-26 Mg Tablet PO 1 tab BID DOM Administration Spironolactone 25 mg 09/13/20 10:00 09/14/20 10:07 Aldactone - PO 25 mg DAILY DOM Administration Tiotropium [place] 2 puff 09/13/20 10:00 09/14/20 10:16 Spiriva Respimat IH 2 puff DAILY DOM Administration Vital Signs Period Temp Pulse Resp BP Sys/Mcgrath Pulse Ox Last 24 Hr 97.5 F-98.5 F 81-96 18-20 85-117/43-70 96-100 Constitutional: Yes: Well Nourished, No Distress, Obese Eyes: No: Sclera Icterus HENT: No: Nasal Congestion Neck: No: Decreased ROM Respiratory: Yes: CTA Bilaterally. No: Accessory Muscle Use, Rales, Wheezes Gastrointestinal: Yes: Normal Bowel Sounds. No: Distention, Hepatomegaly, Palpable Mass, Tenderness Cardiovascular: Yes: Regular Rate and Rhythm JVD: No Heart Sounds: Yes: S1, S2. No: Gallop Murmur: No: Systolic Murmur, Diastolic Murmur Extremities: No: Cool, Cyanosis Edema: no Integumentary: No: Jaundice Neurological: Yes: Alert, Oriented (x3) Psychiatric: No: Agitated CBC, BMP 09/13/20 05:40 09/13/20 05:40 Cardiac Catheterization 2019 non-obstructive CAD echo 05/2019 tds, mildly dilated LV, severe global hypok, RV nl CXR: no congestion EKG: sinus, old LBBB tele: sinus IMP/PLAN: Acute on chronic systolic CHF, dyspnea, asthma/COPD -discharged on lasix 20 mg daily with 40 mg one day a week - per patient no weight gain or edema at home, did not miss lasix doses - weight charted here higher than dc - cont IV lasix for now - pulm following for history of asthma/copd -monitor daily chem7, wts -Cont Toprol/Entresto, aldactone elevated trop: - indeterminate range, nl ck, similar to prior baseline values, not c/w acs HTN: - cont home meds paroxysmal afib - in sinus --cont home bb - cont home eliquis for AC (5 bid) hld: -cont statin
--- NOTE | 2020-09-14 11:53 | PN ---
Progress Note (short form) - Note Progress Note: Resting in NAD on RA. Used NIPPV support overnight. Feels better today. No wheeze noted. Intake & Output 09/11/20 09/12/20 09/13/20 09/14/20 23:59 23:59 23:59 23:59 Intake Total 80 1580 300 Output Total 1760 990 Balance -1680 590 300 Weight 234 lb 6.4 oz 274 lb 3.2 oz Last Vital Signs Temp Pulse Resp BP Pulse Ox 98.5 F 84 20 98/52 L 98 09/14/20 09:07 09/14/20 09:07 09/14/20 09:07 09/14/20 10:06 09/14/20 09:07 Active Medications Albuterol Sulfate (Ventolin Hfa Inhaler -) 2 puff IH Q6H PRN PRN Reason: SHORTNESS OF BREATH Last Admin: 09/14/20 10:16 Dose: 2 puff Documented by: Albuterol/Ipratropium (Duoneb -) 1 amp NEB Q6H PRN PRN Reason: SHORTNESS OF BREATH Apixaban (Eliquis -) 5 mg PO BID [facility] Last Admin: 09/14/20 10:07 Dose: 5 mg Documented by: Atorvastatin Calcium (Lipitor -) 80 mg PO HS [facility] Last Admin: 09/13/20 21:44 Dose: 80 mg Documented by: Budesonide/Formoterol Fumarate (Symbicort 160/4.5mcg -) 2 puff IH BID [facility] Last Admin: 09/14/20 10:38 Dose: 2 puff Documented by: Carvedilol (Coreg -) 6.25 mg PO BID [facility] Last Admin: 09/14/20 10:07 Dose: 6.25 mg Documented by: Furosemide (Lasix Injection -) 20 mg IVPUSH DAILY [facility] Last Admin: 09/14/20 10:07 Dose: 20 mg Documented by: Insulin Aspart (Novolog Vial Sliding Scale -) 1 vial SQ [facility]; Protocol Last Admin: 09/14/20 11:04 Dose: 2 units Documented by: Insulin Detemir (Levemir Vial) 10 units SQ HS [facility] Last Admin: 09/13/20 21:52 Dose: 10 units Documented by: Insulin Detemir (Levemir Vial) 26 units SQ AM [facility] Last Admin: 09/14/20 06:16 Dose: 26 units Documented by: Levothyroxine Sodium (Synthroid -) 75 mcg PO ACBK [facility] Last Admin: 09/14/20 06:16 Dose: 75 mcg Documented by: Magnesium Hydroxide (Milk Of Magnesia -) 30 ml PO DAILY [facility] Last Admin: 09/14/20 10:08 Dose: Not Given Documented by: Montelukast Sodium (Singulair -) 10 mg PO HS [facility] Last Admin: 09/13/20 21:44 Dose: 10 mg Documented by: Pantoprazole Sodium (Protonix -) 40 mg PO DAILY [facility] Last Admin: 09/14/20 10:07 Dose: 40 mg Documented by: Polyethylene Glycol (Miralax (For Daily Use) -) 17 gm PO DAILY [facility] Last Admin: 09/14/20 10:10 Dose: Not Given Documented by: Pregabalin (Lyrica -) 25 mg PO BID [facility] Last Admin: 09/14/20 10:07 Dose: 25 mg Documented by: Sacubitril/Valsartan (Entresto 24 Mg-26 Mg Tablet) 1 tab PO BID [facility] Last Admin: 09/14/20 10:07 Dose: 1 tab Documented by: Spironolactone (Aldactone -) 25 mg PO DAILY [facility] Last Admin: 09/14/20 10:07 Dose: 25 mg Documented by: Tiotropium [place] (Spiriva Respimat) 2 puff IH DAILY [facility] Last Admin: 09/14/20 10:16 Dose: 2 puff Documented by: Constitutional: Yes: Well Nourished, No Distress, Obese Eyes: No: Sclera Icterus HENT: No: Nasal Congestion Neck: No: Decreased ROM Respiratory: Yes: Dimnished at the bases. No: Accessory Muscle Use, Rales, Wheezes Gastrointestinal: Yes: Normal Bowel Sounds. No: Distention, Hepatomegaly, Palpable Mass, Tenderness Cardiovascular: Yes: Regular Rate and Rhythm JVD: No Heart Sounds: Yes: S1, S2. No: Gallop Murmur: No: Systolic Murmur, Diastolic Murmur Musculoskeletal: Yes: Other (No kyphosis) Extremities: No: Cool, Cyanosis Edema: no Integumentary: No: Jaundice Neurological: Yes: Alert, Oriented (x3) Psychiatric: No: Agitated Laboratory Results - last 24 hr 09/12/20 09/13/20 09/14/20 13:30 20:22 11:03 POC Glucometer 156 Urine Color Yellow Urine Appearance Clear Urine pH 5.5 Ur Specific [place] 1.004 L Urine Protein Negative Urine Glucose (UA) Negative Urine Ketones Negative Urine Blood Negative Urine Nitrite Negative Urine Bilirubin Negative Urine Urobilinogen 0.2 Ur Leukocyte Esterase Negative COVID-19 ([facility]) Not detected Problem List - Problems (1) Abdominal pain Code(s): R10.9 - UNSPECIFIED ABDOMINAL PAIN (2) Acute on chronic systolic and diastolic heart failure, NYHA class 3 Code(s): I50.43 - ACUTE ON CHRONIC COMBINED SYSTOLIC AND DIASTOLIC HRT FAIL (3) Asthma Code(s): J45.909 - UNSPECIFIED ASTHMA, UNCOMPLICATED (4) CAD (coronary artery disease) Code(s): I25.10 - ATHSCL HEART DISEASE OF [place] CORONARY ARTERY W/O ANG PCTRS (5) CHF exacerbation Code(s): I50.9 - HEART FAILURE, UNSPECIFIED Qualifiers: Heart failure type: unspecified Qualified Code(s): I50.9 - Heart failure, unspecified (6) COPD (chronic obstructive pulmonary disease) Code(s): J44.9 - CHRONIC OBSTRUCTIVE PULMONARY DISEASE, UNSPECIFIED (7) Diabetes Code(s): E11.9 - TYPE 2 DIABETES MELLITUS WITHOUT COMPLICATIONS (8) Dyspnea Code(s): R06.00 - DYSPNEA, UNSPECIFIED Qualifiers: Dyspnea type: shortness of breath Qualified Code(s): R06.02 - Shortness of breath; R06.00 - Dyspnea, unspecified; R06.01 - Orthopnea (9) Hypothyroidism Code(s): E03.9 - HYPOTHYROIDISM, UNSPECIFIED (10) ICD (implantable cardioverter-defibrillator) in place Code(s): Z95.810 - PRESENCE OF AUTOMATIC (IMPLANTABLE) CARDIAC DEFIBRILLATOR (11) Paroxysmal A-fib Code(s): I48.0 - PAROXYSMAL ATRIAL FIBRILLATION (12) Troponin level elevated Code(s): R79.89 - OTHER SPECIFIED ABNORMAL FINDINGS OF BLOOD CHEMISTRY IMP DYSPNEA ACUTE ON CHRONIC CHF NON-ISCHEMIC CARDIOMYOPATHY S/P ICD DM COPD/ASTHMA PAF HTN VAHID ON CPAP DM + TROPONIN PLAN SUPPLEMENTAL O2 LASIX INHALED BRONCHODILATORS DAILY WTS TREND TROPONIN NIPPV support QHS and PRN MONITOR OFF SYSTEMIC STEROIDS Dr Brannon
--- NOTE | 2020-09-14 21:18 | PN ---
Progress Note, Physician - Current Medication List Current Medications: Active Medications Albuterol Sulfate (Ventolin Hfa Inhaler -) 2 puff IH Q6H PRN PRN Reason: SHORTNESS OF BREATH Last Admin: 09/14/20 10:16 Dose: 2 puff Documented by: Albuterol/Ipratropium (Duoneb -) 1 amp NEB Q6H PRN PRN Reason: SHORTNESS OF BREATH Apixaban (Eliquis -) 5 mg PO BID [facility] Last Admin: 09/14/20 10:07 Dose: 5 mg Documented by: Atorvastatin Calcium (Lipitor -) 80 mg PO [facility] Last Admin: 09/13/20 21:44 Dose: 80 mg Documented by: Budesonide/Formoterol Fumarate (Symbicort 160/4.5mcg -) 2 puff IH BID [facility] Last Admin: 09/14/20 10:38 Dose: 2 puff Documented by: Carvedilol (Coreg -) 6.25 mg PO BID [facility] Last Admin: 09/14/20 10:07 Dose: 6.25 mg Documented by: Furosemide (Lasix Injection -) 20 mg IVPUSH DAILY [facility] Last Admin: 09/14/20 10:07 Dose: 20 mg Documented by: Insulin Aspart (Novolog Vial Sliding Scale -) 1 vial SQ [facility]; Protocol Last Admin: 09/14/20 16:52 Dose: 2 units Documented by: Insulin Detemir (Levemir Vial) 10 units SQ [facility] Last Admin: 09/13/20 21:52 Dose: 10 units Documented by: Insulin Detemir (Levemir Vial) 26 units SQ AM [facility] Last Admin: 09/14/20 06:16 Dose: 26 units Documented by: Levothyroxine Sodium (Synthroid -) 75 mcg PO ACBK [facility] Last Admin: 09/14/20 06:16 Dose: 75 mcg Documented by: Magnesium Hydroxide (Milk Of Magnesia -) 30 ml PO DAILY [facility] Last Admin: 09/14/20 10:08 Dose: Not Given Documented by: Montelukast Sodium (Singulair -) 10 mg PO [facility] Last Admin: 09/13/20 21:44 Dose: 10 mg Documented by: Pantoprazole Sodium (Protonix -) 40 mg PO DAILY [facility] Last Admin: 09/14/20 10:07 Dose: 40 mg Documented by: Polyethylene Glycol (Miralax (For Daily Use) -) 17 gm PO DAILY [facility] Last Admin: 09/14/20 10:10 Dose: Not Given Documented by: Pregabalin (Lyrica -) 25 mg PO BID [facility] Last Admin: 09/14/20 10:07 Dose: 25 mg Documented by: Sacubitril/Valsartan (Entresto 24 Mg-26 Mg Tablet) 1 tab PO BID [facility] Last Admin: 09/14/20 10:07 Dose: 1 tab Documented by: Spironolactone (Aldactone -) 25 mg PO DAILY [facility] Last Admin: 09/14/20 10:07 Dose: 25 mg Documented by: Tiotropium [place] (Spiriva Respimat) 2 puff IH DAILY [facility] Last Admin: 09/14/20 10:16 Dose: 2 puff Documented by: - Objective Vital Signs: Vital Signs Temperature 97.4 F L 09/14/20 14:00 Pulse Rate 83 09/14/20 14:00 Respiratory Rate 16 09/14/20 14:00 Blood Pressure 92/58 L 09/14/20 14:00 O2 Sat by Pulse Oximetry (%) 98 09/14/20 09:07 Labs: CBC, BMP 09/13/20 05:40 09/13/20 05:40
[2020-09-14] MEDS: ATORVASTATIN CA 80 MG TABLET (FP) PO SCH (23:20)
[2020-09-14] MEDS: MONTELUKAST NA 10 MG TABLET PO SCH (23:20)
[2020-09-14 23:26] VITALS: BMI 44.2
--- NOTE | 2020-09-15 06:02 | PN ---
Progress Note, Physician Chief Complaint: sleeping comfortably Denies CP/SOB Feels better TELE: NSR, short run NSVT 3-4 beats - Current Medication List Current Medications: Active Medications Albuterol Sulfate (Ventolin Hfa Inhaler -) 2 puff IH Q6H PRN PRN Reason: SHORTNESS OF BREATH Last Admin: 09/14/20 10:16 Dose: 2 puff Documented by: Albuterol/Ipratropium (Duoneb -) 1 amp NEB Q6H PRN PRN Reason: SHORTNESS OF BREATH Amoxicillin/Clavulanate Potassium (Augmentin - 875mg Tablet) 1 tab PO BID@0800,1730 [facility] Apixaban (Eliquis -) 5 mg PO BID [facility] Last Admin: 09/14/20 23:20 Dose: 5 mg Documented by: Atorvastatin Calcium (Lipitor -) 80 mg PO [facility] Last Admin: 09/14/20 23:20 Dose: 80 mg Documented by: Budesonide/Formoterol Fumarate (Symbicort 160/4.5mcg -) 2 puff IH BID [facility] Last Admin: 09/14/20 23:37 Dose: 2 puff Documented by: Carvedilol (Coreg -) 6.25 mg PO BID [facility] Last Admin: 09/14/20 23:20 Dose: 6.25 mg Documented by: Furosemide (Lasix Injection -) 20 mg IVPUSH DAILY [facility] Last Admin: 09/14/20 10:07 Dose: 20 mg Documented by: Insulin Aspart (Novolog Vial Sliding Scale -) 1 vial SQ [facility]; Protocol Last Admin: 09/14/20 23:21 Dose: Not Given Documented by: Insulin Detemir (Levemir Vial) 10 units SQ HS [facility] Last Admin: 09/14/20 23:20 Dose: 10 units Documented by: Insulin Detemir (Levemir Vial) 26 units SQ AM [facility] Last Admin: 09/14/20 06:16 Dose: 26 units Documented by: Levothyroxine Sodium (Synthroid -) 75 mcg PO ACBK [facility] Last Admin: 09/14/20 06:16 Dose: 75 mcg Documented by: Magnesium Hydroxide (Milk Of Magnesia -) 30 ml PO DAILY [facility] Last Admin: 09/14/20 10:08 Dose: Not Given Documented by: Montelukast Sodium (Singulair -) 10 mg PO [facility] Last Admin: 10/15/20 23:20 Dose: 10 mg Documented by: Pantoprazole Sodium (Protonix -) 40 mg PO DAILY [facility] Last Admin: 09/14/20 10:07 Dose: 40 mg Documented by: Polyethylene Glycol (Miralax (For Daily Use) -) 17 gm PO DAILY [facility] Last Admin: 09/14/20 10:10 Dose: Not Given Documented by: Pregabalin (Lyrica -) 25 mg PO BID [facility] Last Admin: 09/14/20 23:20 Dose: 25 mg Documented by: Sacubitril/Valsartan (Entresto 24 Mg-26 Mg Tablet) 1 tab PO BID [facility] Last Admin: 09/14/20 23:20 Dose: 1 tab Documented by: Spironolactone (Aldactone -) 25 mg PO DAILY [facility] Last Admin: 09/14/20 10:07 Dose: 25 mg Documented by: Tiotropium [place] (Spiriva Respimat) 2 puff IH DAILY [facility] Last Admin: 09/14/20 10:16 Dose: 2 puff Documented by: - Objective Vital Signs: Vital Signs Temperature 98.3 F 09/15/20 02:00 Pulse Rate 88 09/15/20 02:00 Respiratory Rate 16 09/15/20 02:00 Blood Pressure 98/60 09/15/20 02:00 O2 Sat by Pulse Oximetry (%) 99 09/15/20 02:00 Constitutional: Yes: No Distress, Calm Eyes: Yes: Conjunctiva Clear, EOM Intact HENT: Yes: Atraumatic, Normocephalic Cardiovascular: Yes: Regular Rate and Rhythm Respiratory: Yes: CTA Bilaterally, Other (no wheezing or rales) Gastrointestinal: Yes: Soft, Abdomen, Obese Edema: No Neurological: Yes: Alert, Oriented ...Motor Strength: WNL Labs: CBC, BMP 09/13/20 05:40 09/13/20 05:40 Laboratory Tests 09/15/20 09/15/20 06:15 06:15 WBC 7.0 Hgb 10.6 L Plt Count 258 Sodium 136 Potassium 4.1 Creatinine 1.2 - ....Imaging EKG: Image Reviewed Assessment/Plan IMP/PLAN: Acute on chronic systolic CHF, dyspnea, asthma/COPD -discharged on lasix 20 mg daily with 40 mg one day a week - per patient no weight gain or edema at home, did not miss lasix doses - weight charted here higher than dc - cont IV lasix for now; plan to convert to PO tomorrow -Strongly advised and discussed VNS with her to assist in medication compliance/ diet reminders and daily weights at home - pulm following for history of asthma/copd -monitor daily chem7, wts -Cont Toprol/Entresto, aldactone elevated trop: - indeterminate range, nl ck, similar to prior baseline values, not c/w acs HTN: - cont home meds paroxysmal afib - in sinus --cont home bb - cont home eliquis for AC (5 bid) hld: -cont statin
[2020-09-15] MEDS: INSULIN (LEVEMIR) 100 UNITS/ML UNITS SQ SCH ×2 (07:00→21:10)
[2020-09-15] MEDS: LEVOTHYROXINE NA 75 MCG TABLET (FP) PO SCH (07:00)
[2020-09-15] MEDS: INSULIN SLIDING SCALE (NOVOLOG) 1 VIAL SQ SCH ×4 (07:00→21:09)
[2020-09-15 07:03] LABS: EOS % 1.8 % (0-4.5); HEMATOCRIT 33.7 % (32.4-45.2); HEMOGLOBIN 10.6 GM/dL (10.7-15.3); LYMPH % 28.8 % (8-40); MCH 25.4 pg (25.7-33.7); MCHC 31.3 g/dl (32.0-36.0); MEAN CELL VOLUME 81.1 fl (80-96); MEAN PLT VOLUME 9.9 fl (7.5-11.1); MONO % 9.7 % (3.8-10.2); NEUT % 58.7 % (42.8-82.8); PLATELET COUNT 258 K/MM3 (134-434); RBC 4.16 M/mm3 (3.60-5.2); RDW 17.3 % (11.6-15.6)
[2020-09-15 07:43] LABS: CALCIUM 9.1 mg/dL (8.5-10.1); POTASSIUM 4.1 mmol/L (3.5-5.1)
[2020-09-15 07:49] LABS: BILIRUBIN,TOTAL 0.7 mg/dL (0.2-1); BLOOD UREA NITROGEN 15.4 mg/dL (7-18); CREATININE 1.2 mg/dL (0.55-1.3); TOT PROT 6.4 g/dl (6.4-8.2)
[2020-09-15] MEDS: SACUBITRIL/VALSARTAN 24 MG-26 MG TABLET PO SCH ×2 (09:01→21:08)
[2020-09-15] MEDS: PANTOPRAZOLE 40 MG TABLET PO SCH (09:02)
[2020-09-15] MEDS: AMOX TR/POT CLAV 875MG/125MG TABLETS (FP) PO SCH ×2 (09:02→17:01)
[2020-09-15] MEDS: CARVEDILOL 6.25 MG TABLET (FP) PO SCH ×2 (09:02→21:08)
[2020-09-15] MEDS: APIXABAN 5 MG TABLET PO SCH ×2 (09:02→21:08)
[2020-09-15] MEDS: SPIRONOLACTONE 25 MG TABLET PO SCH (09:02)
[2020-09-15] MEDS: PREGABALIN 25 MG CAPSULE PO SCH ×2 (09:02→21:08)
[2020-09-15] MEDS: BUDESONIDE/FORMETEROL FUMARATE 160/4.5 mcg INHALER IH SCH ×2 (09:03→21:08)
[2020-09-15] MEDS: TIOTROPIUM BROMIDE 2.5 MCG (SPIRIVA) RESPIMAT INHALER IH SCH (09:03)
[2020-09-15] MEDS: FUROSEMIDE 40 MG/4 ML INJECTABLE VIAL IVPUSH SCH (09:09)
[2020-09-15] MEDS: MAGNESIUM HYDROX 2400MG/30ML ORAL SUSPENSION 30 ML CUP PO SCH (09:12)
[2020-09-15] MEDS: POLYETHYLENE GLYCOL 3350 119 GM BTL PO SCH (09:12)
--- NOTE | 2020-09-15 12:23 | PN ---
Progress Note, Physician History of Present Illness: stable - Current Medication List Current Medications: Active Medications Albuterol Sulfate (Ventolin Hfa Inhaler -) 2 puff IH Q6H PRN PRN Reason: SHORTNESS OF BREATH Last Admin: 09/14/20 10:16 Dose: 2 puff Documented by: Albuterol/Ipratropium (Duoneb -) 1 amp NEB Q6H PRN PRN Reason: SHORTNESS OF BREATH Amoxicillin/Clavulanate Potassium (Augmentin - 875mg Tablet) 1 tab PO BID@0800,1730 [facility] Last Admin: 09/15/20 09:02 Dose: 1 tab Documented by: Apixaban (Eliquis -) 5 mg PO BID [facility] Last Admin: 09/15/20 09:02 Dose: 5 mg Documented by: Atorvastatin Calcium (Lipitor -) 80 mg PO [facility] Last Admin: 09/14/20 23:20 Dose: 80 mg Documented by: Budesonide/Formoterol Fumarate (Symbicort 160/4.5mcg -) 2 puff IH BID [facility] Last Admin: 09/15/20 09:03 Dose: 2 puff Documented by: Carvedilol (Coreg -) 6.25 mg PO BID [facility] Last Admin: 09/15/20 09:02 Dose: 6.25 mg Documented by: Furosemide (Lasix Injection -) 20 mg IVPUSH DAILY [facility] Last Admin: 09/15/20 09:09 Dose: 20 mg Documented by: Insulin Aspart (Novolog Vial Sliding Scale -) 1 vial SQ [facility]; Protocol Last Admin: 09/15/20 11:22 Dose: 2 units Documented by: Insulin Detemir (Levemir Vial) 10 units SQ HS [facility] Last Admin: 09/14/20 23:20 Dose: 10 units Documented by: Insulin Detemir (Levemir Vial) 26 units SQ AM [facility] Last Admin: 09/15/20 07:00 Dose: 26 units Documented by: Levothyroxine Sodium (Synthroid -) 75 mcg PO ACBK [facility] Last Admin: 09/15/20 07:00 Dose: 75 mcg Documented by: Magnesium Hydroxide (Milk Of Magnesia -) 30 ml PO DAILY [facility] Last Admin: 09/15/20 09:12 Dose: Not Given Documented by: Montelukast Sodium (Singulair -) 10 mg PO [facility] Last Admin: 09/14/20 23:20 Dose: 10 mg Documented by: Pantoprazole Sodium (Protonix -) 40 mg PO DAILY [facility] Last Admin: 09/15/20 09:02 Dose: 40 mg Documented by: Polyethylene Glycol (Miralax (For Daily Use) -) 17 gm PO DAILY [facility] Last Admin: 09/15/20 09:12 Dose: Not Given Documented by: Pregabalin (Lyrica -) 25 mg PO BID [facility] Last Admin: 09/15/20 09:02 Dose: 25 mg Documented by: Sacubitril/Valsartan (Entresto 24 Mg-26 Mg Tablet) 1 tab PO BID [facility] Last Admin: 09/15/20 09:01 Dose: 1 tab Documented by: Spironolactone (Aldactone -) 25 mg PO DAILY [facility] Last Admin: 09/15/20 09:02 Dose: 25 mg Documented by: Tiotropium [place] (Spiriva Respimat) 2 puff IH DAILY [facility] Last Admin: 09/15/20 09:03 Dose: 2 puff Documented by: - Objective Vital Signs: Vital Signs Temperature 98.3 F 09/15/20 09:39 Pulse Rate 86 09/15/20 09:39 Respiratory Rate 20 09/15/20 09:39 Blood Pressure 102/50 L 09/15/20 09:39 O2 Sat by Pulse Oximetry (%) 99 09/15/20 09:39 Constitutional: Yes: No Distress HENT: Yes: Atraumatic Neck: Yes: Supple Cardiovascular: Yes: Regular Rate and Rhythm Respiratory: Yes: Rhonchi Gastrointestinal: Yes: Normal Bowel Sounds Extremities: Yes: WNL Edema: Yes Edema: LLE: Trace, RLE: Trace Neurological: Yes: Alert, Oriented Labs: CBC, BMP 09/15/20 06:15 09/15/20 06:15 Problem List - Problems (1) Acute on chronic systolic (congestive) heart failure Assessment/Plan: iv lasix cardio on board daily weights Code(s): I50.23 - ACUTE ON CHRONIC SYSTOLIC (CONGESTIVE) HEART FAILURE (2) Asthma Assessment/Plan: on meds duo nebs inhaler pulmonary on board Code(s): J45.909 - UNSPECIFIED ASTHMA, UNCOMPLICATED (3) Diabetes Assessment/Plan: insulin bgms Code(s): E11.9 - TYPE 2 DIABETES MELLITUS WITHOUT COMPLICATIONS (4) Hyperlipidemia Code(s): E78.5 - HYPERLIPIDEMIA, UNSPECIFIED (5) Hypertension Assessment/Plan: on meds monitor Code(s): I10 - ESSENTIAL (PRIMARY) HYPERTENSION Qualifiers: (6) Hypothyroidism Assessment/Plan: on meds Code(s): E03.9 - HYPOTHYROIDISM, UNSPECIFIED (7) Morbid obesity Code(s): E66.01 - MORBID (SEVERE) OBESITY DUE TO EXCESS CALORIES (8) Paroxysmal A-fib Assessment/Plan: on AC and other cardiac meds Code(s): I48.0 - PAROXYSMAL ATRIAL FIBRILLATION (9) VAHID (obstructive sleep apnea) Assessment/Plan: on c pap Code(s): G47.33 - OBSTRUCTIVE SLEEP APNEA (ADULT) (PEDIATRIC) Assessment/Plan covering for dr patel today
--- NOTE | 2020-09-15 13:01 | PN ---
Progress Note (short form) - Note Progress Note: Pulmonary Well known by our service sitting up in bed subjective improvement used pap last night VSS/Stable Constitutional: Yes: Well Nourished, No Distress, Obese Eyes: No: Sclera Icterus HENT: No: Nasal Congestion Neck: No: Decreased ROM Respiratory: Yes: Dimnished at the bases. No: Accessory Muscle Use, Rales, Wheezes Gastrointestinal: Yes: Normal Bowel Sounds. No: Distention, Hepatomegaly, Palpable Mass, Tenderness Cardiovascular: Yes: Regular Rate and Rhythm JVD: No Heart Sounds: Yes: S1, S2. No: Gallop Murmur: No: Systolic Murmur, Diastolic Murmur Musculoskeletal: Yes: Other (No kyphosis) Extremities: No: Cool, Cyanosis Edema: no Integumentary: No: Jaundice Neurological: Yes: Alert, Oriented (x3) labs/meds/notes/images reviewed IMP DYSPNEA ACUTE ON CHRONIC CHF NON-ISCHEMIC CARDIOMYOPATHY S/P ICD DM COPD/ASTHMA PAF HTN VAHID ON CPAP DM PLAN SUPPLEMENTAL O2 LASIX INHALED BRONCHODILATORS DAILY WTS NIPPV support QHS and PRN MONITOR OFF SYSTEMIC STEROIDS Vipul Doan MD
[2020-09-15] MEDS: ATORVASTATIN CA 80 MG TABLET (FP) PO SCH (21:08)
[2020-09-15] MEDS: MONTELUKAST NA 10 MG TABLET PO SCH (21:08)
[2020-09-16] MEDS: INSULIN (LEVEMIR) 100 UNITS/ML UNITS SQ SCH ×2 (06:23→22:00)
[2020-09-16] MEDS: LEVOTHYROXINE NA 75 MCG TABLET (FP) PO SCH (06:24)
[2020-09-16] MEDS: INSULIN SLIDING SCALE (NOVOLOG) 1 VIAL SQ SCH ×4 (06:24→22:00)
[2020-09-16] MEDS: AMOX TR/POT CLAV 875MG/125MG TABLETS (FP) PO SCH ×2 (08:19→17:47)
--- NOTE | 2020-09-16 08:31 | PN ---
Progress Note, Physician Chief Complaint: sob History of Present Illness: no more sob or swelling feels back to baseline no chest heaviness/discomfort no palp - Current Medication List Current Medications: Active Medications Albuterol Sulfate (Ventolin Hfa Inhaler -) 2 puff IH Q6H PRN PRN Reason: SHORTNESS OF BREATH Last Admin: 09/14/20 10:16 Dose: 2 puff Documented by: Albuterol/Ipratropium (Duoneb -) 1 amp NEB Q6H PRN PRN Reason: SHORTNESS OF BREATH Amoxicillin/Clavulanate Potassium (Augmentin - 875mg Tablet) 1 tab PO BID@0800,1730 [facility] Last Admin: 09/16/20 08:19 Dose: 1 tab Documented by: Apixaban (Eliquis -) 5 mg PO BID [facility] Last Admin: 09/15/20 21:08 Dose: 5 mg Documented by: Atorvastatin Calcium (Lipitor -) 80 mg PO HS [facility] Last Admin: 09/15/20 21:08 Dose: 80 mg Documented by: Budesonide/Formoterol Fumarate (Symbicort 160/4.5mcg -) 2 puff IH BID [facility] Last Admin: 09/15/20 21:08 Dose: 2 puff Documented by: Carvedilol (Coreg -) 6.25 mg PO BID [facility] Last Admin: 09/15/20 21:08 Dose: 6.25 mg Documented by: Furosemide (Lasix Injection -) 20 mg IVPUSH DAILY [facility] Last Admin: 09/15/20 09:09 Dose: 20 mg Documented by: Insulin Aspart (Novolog Vial Sliding Scale -) 1 vial SQ [facility]; Protocol Last Admin: 09/16/20 06:24 Dose: 6 units Documented by: Insulin Detemir (Levemir Vial) 10 units SQ HS [facility] Last Admin: 09/15/20 21:10 Dose: 10 units Documented by: Insulin Detemir (Levemir Vial) 26 units SQ AM [facility] Last Admin: 09/16/20 06:23 Dose: 26 units Documented by: Levothyroxine Sodium (Synthroid -) 75 mcg PO ACBK [facility] Last Admin: 09/16/20 06:24 Dose: 75 mcg Documented by: Magnesium Hydroxide (Milk Of Magnesia -) 30 ml PO DAILY [facility] Last Admin: 09/15/20 09:12 Dose: Not Given Documented by: Montelukast Sodium (Singulair -) 10 mg PO HS [facility] Last Admin: 09/15/20 21:08 Dose: 10 mg Documented by: Pantoprazole Sodium (Protonix -) 40 mg PO DAILY [facility] Last Admin: 09/15/20 09:02 Dose: 40 mg Documented by: Polyethylene Glycol (Miralax (For Daily Use) -) 17 gm PO DAILY [facility] Last Admin: 09/15/20 09:12 Dose: Not Given Documented by: Pregabalin (Lyrica -) 25 mg PO BID [facility] Last Admin: 09/15/20 21:08 Dose: 25 mg Documented by: Sacubitril/Valsartan (Entresto 24 Mg-26 Mg Tablet) 1 tab PO BID [facility] Last Admin: 09/15/20 21:08 Dose: 1 tab Documented by: Spironolactone (Aldactone -) 25 mg PO DAILY [facility] Last Admin: 09/15/20 09:02 Dose: 25 mg Documented by: Tiotropium [place] (Spiriva Respimat) 2 puff IH DAILY [facility] Last Admin: 09/15/20 09:03 Dose: 2 puff Documented by: - Objective Vital Signs: Vital Signs Temperature 97.6 F 09/16/20 06:28 Pulse Rate 89 09/16/20 06:28 Respiratory Rate 18 09/16/20 06:28 Blood Pressure 90/59 L 09/16/20 06:28 O2 Sat by Pulse Oximetry (%) 100 09/16/20 06:28 Constitutional: Yes: Well Nourished, No Distress, Calm, Obese Cardiovascular: Yes: Regular Rate and Rhythm, S1, S2. No: JVD, Gallop, Murmur Respiratory: Yes: Regular, CTA Bilaterally. No: Accessory Muscle Use Extremities: No: Cold Edema: No Neurological: Yes: Alert, Oriented Psychiatric: No: Agitated Labs: CBC, BMP 09/15/20 06:15 09/15/20 06:15 Assessment/Plan Acute on chronic systolic CHF, dyspnea, asthma/COPD -discharged on lasix 20 mg daily with 40 mg one day a week - per patient no weight gain or edema at home, did not miss lasix doses -dry wt appears somewhere btw 245-255 (o.v.s as well), initial wt here spurious -appears euvolemic or close. change lasix 20 iv qd to po regimen. was taking 40mg x 1d, 20mg x 6d at home--will change to 40mg x 2d, 20mg x 5 -ok for discharge from cv standpoint -Strongly advised and discussed VNS with her to assist in medication compliance/ diet reminders and daily weights at home - pulm following for history of asthma/copd -monitor daily chem7, wts -Cont Toprol/Entresto, aldactone -would benefit from cardiomems pressure monitoring/diuretic titration--dr whitaker d/w'd chf (dr toure) who will schedule electively elevated trop: - indeterminate range, nl ck, similar to prior baseline values, not c/w acs HTN: - cont home meds paroxysmal afib - in sinus --cont home bb - cont home eliquis for AC (5 bid) hld: -cont statin OK FOR D/C FROM CV STANDPOINT
[2020-09-16] MEDS ORDERED: PT OWN MED DRAWER 7, Y5N ONE (09:49)
[2020-09-16] MEDS: CARVEDILOL 6.25 MG TABLET (FP) PO SCH ×2 (09:53→21:59)
[2020-09-16] MEDS: PANTOPRAZOLE 40 MG TABLET PO SCH (09:53)
[2020-09-16] MEDS: SPIRONOLACTONE 25 MG TABLET PO SCH (09:53)
[2020-09-16] MEDS: SACUBITRIL/VALSARTAN 24 MG-26 MG TABLET PO SCH ×2 (09:53→21:59)
[2020-09-16] MEDS: MAGNESIUM HYDROX 2400MG/30ML ORAL SUSPENSION 30 ML CUP PO SCH ×2 (09:53→10:04)
[2020-09-16] MEDS: APIXABAN 5 MG TABLET PO SCH ×2 (09:53→21:59)
[2020-09-16] MEDS: PREGABALIN 25 MG CAPSULE PO SCH ×2 (09:53→22:00)
[2020-09-16] MEDS: TIOTROPIUM BROMIDE 2.5 MCG (SPIRIVA) RESPIMAT INHALER IH SCH (09:54)
[2020-09-16] MEDS: BUDESONIDE/FORMETEROL FUMARATE 160/4.5 mcg INHALER IH SCH ×2 (09:54→22:01)
[2020-09-16] MEDS: FUROSEMIDE 40 MG/4 ML INJECTABLE VIAL IVPUSH SCH (09:54)
[2020-09-16] MEDS: POLYETHYLENE GLYCOL 3350 119 GM BTL PO SCH (09:54)
--- NOTE | 2020-09-16 12:51 | PN ---
Progress Note (short form) - Note Progress Note: Pulmonary appears stable eating lunch sitting up in bed subjective improvement used pap last night VSS/Stable Constitutional: Yes: Well Nourished, No Distress, Obese Eyes: No: Sclera Icterus HENT: No: Nasal Congestion Neck: No: Decreased ROM Respiratory: Yes: Dimnished at the bases. No: Accessory Muscle Use, Rales, Wheezes Gastrointestinal: Yes: Normal Bowel Sounds. No: Distention, Hepatomegaly, Palpable Mass, Tenderness Cardiovascular: Yes: Regular Rate and Rhythm JVD: No Heart Sounds: Yes: S1, S2. No: Gallop Murmur: No: Systolic Murmur, Diastolic Murmur Musculoskeletal: Yes: Other (No kyphosis) Extremities: No: Cool, Cyanosis Edema: no Integumentary: No: Jaundice Neurological: Yes: Alert, Oriented (x3) labs/meds/notes/images reviewed IMP DYSPNEA ACUTE ON CHRONIC CHF NON-ISCHEMIC CARDIOMYOPATHY S/P ICD DM COPD/ASTHMA PAF HTN VAHID ON CPAP DM PLAN SUPPLEMENTAL O2 LASIX INHALED BRONCHODILATORS DAILY WTS NIPPV support QHS and PRN MONITOR OFF SYSTEMIC STEROIDS Vipul Doan MD
[2020-09-16] MEDS ORDERED: FUROSEMIDE 20 MG TABLET (FP) PO SCH ×2 (13:30)
[2020-09-16] MEDS: FUROSEMIDE 20 MG TABLET (FP) PO SCH (13:55)
[2020-09-16] MEDS: ATORVASTATIN CA 80 MG TABLET (FP) PO SCH (21:59)
[2020-09-16] MEDS: MONTELUKAST NA 10 MG TABLET PO SCH (21:59)
--- NOTE | 2020-09-16 22:10 | PN ---
Progress Note, Physician - Current Medication List Current Medications: Active Medications Albuterol Sulfate (Ventolin Hfa Inhaler -) 2 puff IH Q6H PRN PRN Reason: SHORTNESS OF BREATH Last Admin: 09/14/20 10:16 Dose: 2 puff Documented by: Albuterol/Ipratropium (Duoneb -) 1 amp NEB Q6H PRN PRN Reason: SHORTNESS OF BREATH Amoxicillin/Clavulanate Potassium (Augmentin - 875mg Tablet) 1 tab PO BID@0800,1730 [facility] Last Admin: 09/16/20 17:47 Dose: 1 tab Documented by: Apixaban (Eliquis -) 5 mg PO BID [facility] Last Admin: 09/16/20 21:59 Dose: 5 mg Documented by: Atorvastatin Calcium (Lipitor -) 80 mg PO [facility] Last Admin: 09/16/20 21:59 Dose: 80 mg Documented by: Budesonide/Formoterol Fumarate (Symbicort 160/4.5mcg -) 2 puff IH BID [facility] Last Admin: 09/16/20 22:01 Dose: 2 puff Documented by: Carvedilol (Coreg -) 6.25 mg PO BID [facility] Last Admin: 09/16/20 21:59 Dose: 6.25 mg Documented by: Furosemide (Lasix -) 40 mg PO MoFr@1000 [facility] Furosemide (Lasix -) 20 mg PO SuTuWeThSa@1000 [facility] Last Admin: 09/16/20 13:55 Dose: 20 mg Documented by: Insulin Aspart (Novolog Vial Sliding Scale -) 1 vial SQ [facility]; Protocol Last Admin: 09/16/20 22:00 Dose: 6 units Documented by: Insulin Detemir (Levemir Vial) 10 units SQ [facility] Last Admin: 09/16/20 22:00 Dose: 10 units Documented by: Insulin Detemir (Levemir Vial) 26 units SQ AM [facility] Last Admin: 09/16/20 06:23 Dose: 26 units Documented by: Levothyroxine Sodium (Synthroid -) 75 mcg PO ACBK [facility] Last Admin: 09/16/20 06:24 Dose: 75 mcg Documented by: Magnesium Hydroxide (Milk Of Magnesia -) 30 ml PO DAILY [facility] Last Admin: 09/16/20 10:04 Dose: Not Given Documented by: Montelukast Sodium (Singulair -) 10 mg PO HS [facility] Last Admin: 09/16/20 21:59 Dose: 10 mg Documented by: Pantoprazole Sodium (Protonix -) 40 mg PO DAILY [facility] Last Admin: 09/16/20 09:53 Dose: 40 mg Documented by: Polyethylene Glycol (Miralax (For Daily Use) -) 17 gm PO DAILY [facility] Last Admin: 09/16/20 09:54 Dose: Not Given Documented by: Pregabalin (Lyrica -) 25 mg PO BID [facility] Last Admin: 09/16/20 22:00 Dose: 25 mg Documented by: Sacubitril/Valsartan (Entresto 24 Mg-26 Mg Tablet) 1 tab PO BID [facility] Last Admin: 09/16/20 21:59 Dose: 1 tab Documented by: Spironolactone (Aldactone -) 25 mg PO DAILY [facility] Last Admin: 09/16/20 09:53 Dose: 25 mg Documented by: Tiotropium [place] (Spiriva Respimat) 2 puff IH DAILY [facility] Last Admin: 09/16/20 09:54 Dose: 2 puff Documented by: - Objective Vital Signs: Vital Signs Temperature 98.1 F 09/16/20 17:57 Pulse Rate 89 09/16/20 17:57 Respiratory Rate 18 09/16/20 17:57 Blood Pressure 106/65 09/16/20 17:57 O2 Sat by Pulse Oximetry (%) 100 09/16/20 20:29 Labs: CBC, BMP 09/15/20 06:15 09/15/20 06:15
[2020-09-17] MEDS: INSULIN SLIDING SCALE (NOVOLOG) 1 VIAL SQ SCH ×2 (06:14→11:46)
[2020-09-17] MEDS: INSULIN (LEVEMIR) 100 UNITS/ML UNITS SQ SCH (06:14)
[2020-09-17] MEDS: LEVOTHYROXINE NA 75 MCG TABLET (FP) PO SCH (06:15)
[2020-09-17] MEDS: AMOX TR/POT CLAV 875MG/125MG TABLETS (FP) PO SCH (08:23)
[2020-09-17] MEDS ORDERED: PT OWN MED DRAWER 7, Y5N ONE (09:47)
[2020-09-17] MEDS: APIXABAN 5 MG TABLET PO SCH (09:53)
[2020-09-17] MEDS: MAGNESIUM HYDROX 2400MG/30ML ORAL SUSPENSION 30 ML CUP PO SCH (09:53)
[2020-09-17] MEDS: POLYETHYLENE GLYCOL 3350 119 GM BTL PO SCH (09:53)
[2020-09-17] MEDS: SACUBITRIL/VALSARTAN 24 MG-26 MG TABLET PO SCH (09:53)
[2020-09-17] MEDS: CARVEDILOL 6.25 MG TABLET (FP) PO SCH (09:53)
[2020-09-17] MEDS: PANTOPRAZOLE 40 MG TABLET PO SCH (09:53)
[2020-09-17] MEDS: PREGABALIN 25 MG CAPSULE PO SCH (09:53)
[2020-09-17] MEDS: SPIRONOLACTONE 25 MG TABLET PO SCH (09:53)
[2020-09-17] MEDS: FUROSEMIDE 20 MG TABLET (FP) PO SCH (09:57)
[2020-09-17] MEDS: TIOTROPIUM BROMIDE 2.5 MCG (SPIRIVA) RESPIMAT INHALER IH SCH (09:57)
[2020-09-17] MEDS: BUDESONIDE/FORMETEROL FUMARATE 160/4.5 mcg INHALER IH SCH (09:57)
--- NOTE | 2020-09-17 10:53 | PN ---
Progress Note, Physician Chief Complaint: sob History of Present Illness: no more sob or swelling feels back to baseline no chest heaviness/discomfort no palp - Current Medication List Current Medications: Active Medications Albuterol Sulfate (Ventolin Hfa Inhaler -) 2 puff IH Q6H PRN PRN Reason: SHORTNESS OF BREATH Last Admin: 09/14/20 10:16 Dose: 2 puff Documented by: Albuterol/Ipratropium (Duoneb -) 1 amp NEB Q6H PRN PRN Reason: SHORTNESS OF BREATH Amoxicillin/Clavulanate Potassium (Augmentin - 875mg Tablet) 1 tab PO BID@0800,1730 [facility] Last Admin: 09/17/20 08:23 Dose: 1 tab Documented by: Apixaban (Eliquis -) 5 mg PO BID [facility] Last Admin: 09/17/20 09:53 Dose: 5 mg Documented by: Atorvastatin Calcium (Lipitor -) 80 mg PO [facility] Last Admin: 09/16/20 21:59 Dose: 80 mg Documented by: Budesonide/Formoterol Fumarate (Symbicort 160/4.5mcg -) 2 puff IH BID [facility] Last Admin: 09/17/20 09:57 Dose: 2 puff Documented by: Carvedilol (Coreg -) 6.25 mg PO BID [facility] Last Admin: 09/17/20 09:53 Dose: 6.25 mg Documented by: Furosemide (Lasix -) 40 mg PO MoFr@1000 DOM Furosemide (Lasix -) 20 mg PO SuTuWeThSa@1000 [facility] Last Admin: 09/17/20 09:57 Dose: 20 mg Documented by: Insulin Aspart (Novolog Vial Sliding Scale -) 1 vial SQ [facility]; Protocol Last Admin: 09/17/20 06:14 Dose: 2 units Documented by: Insulin Detemir (Levemir Vial) 10 units SQ HS [facility] Last Admin: 09/16/20 22:00 Dose: 10 units Documented by: Insulin Detemir (Levemir Vial) 26 units SQ AM [facility] Last Admin: 09/17/20 06:14 Dose: 26 units Documented by: Levothyroxine Sodium (Synthroid -) 75 mcg PO ACBK [facility] Last Admin: 09/17/20 06:15 Dose: 75 mcg Documented by: Magnesium Hydroxide (Milk Of Magnesia -) 30 ml PO DAILY [facility] Last Admin: 10/18/20 09:53 Dose: Not Given Documented by: Montelukast Sodium (Singulair -) 10 mg PO HS [facility] Last Admin: 09/16/20 21:59 Dose: 10 mg Documented by: Pantoprazole Sodium (Protonix -) 40 mg PO DAILY [facility] Last Admin: 09/17/20 09:53 Dose: 40 mg Documented by: Polyethylene Glycol (Miralax (For Daily Use) -) 17 gm PO DAILY [facility] Last Admin: 09/17/20 09:53 Dose: Not Given Documented by: Pregabalin (Lyrica -) 25 mg PO BID [facility] Last Admin: 09/17/20 09:53 Dose: 25 mg Documented by: Sacubitril/Valsartan (Entresto 24 Mg-26 Mg Tablet) 1 tab PO BID [facility] Last Admin: 09/17/20 09:53 Dose: 1 tab Documented by: Spironolactone (Aldactone -) 25 mg PO DAILY [facility] Last Admin: 09/17/20 09:53 Dose: 25 mg Documented by: Tiotropium [place] (Spiriva Respimat) 2 puff IH DAILY [facility] Last Admin: 09/17/20 09:57 Dose: 2 puff Documented by: - Objective Vital Signs: Vital Signs Temperature 98.3 F 09/17/20 09:52 Pulse Rate 88 09/17/20 09:52 Respiratory Rate 18 09/17/20 09:52 Blood Pressure 148/91 09/17/20 09:52 O2 Sat by Pulse Oximetry (%) 96 09/17/20 09:52 Constitutional: Yes: No Distress, Calm, Obese Cardiovascular: Yes: Regular Rate and Rhythm, S1, S2. No: Gallop, Murmur Respiratory: Yes: Regular, CTA Bilaterally. No: Accessory Muscle Use, Rales Extremities: No: Cold Edema: No Neurological: Yes: Alert, Oriented Psychiatric: No: Agitated Labs: CBC, BMP 09/15/20 06:15 09/15/20 06:15 Assessment/Plan Acute on chronic systolic CHF, dyspnea, asthma/COPD -discharged on lasix 20 mg daily with 40 mg one day a week - per patient no weight gain or edema at home, did not miss lasix doses -dry wt appears somewhere btw 245-255 (o.v.s as well), initial wt here spurious -appears euvolemic or close. change lasix 20 iv qd to po regimen. was taking 40mg x 1d, 20mg x 6d at home--will change to 40mg x 2d, 20mg x 5 -ok for discharge from cv standpoint -Strongly advised and discussed VNS with her to assist in medication compliance/ diet reminders and daily weights at home - pulm following for history of asthma/copd -monitor daily chem7, wts -Cont Toprol/Entresto, aldactone -would benefit from cardiomems pressure monitoring/diuretic titration--dr whitaker d/w'd chf (dr toure) who will schedule electively elevated trop: - indeterminate range, nl ck, similar to prior baseline values, not c/w acs HTN: - cont home meds paroxysmal afib - in sinus --cont home bb - cont home eliquis for AC (5 bid) hld: -cont statin OK FOR D/C FROM CV STANDPOINT
--- NOTE | 2020-09-17 12:20 | PN ---
Progress Note (short form) - Note Progress Note: Pulmonary appears stable subjective improvement used pap last night VSS/Stable Constitutional: Yes: Well Nourished, No Distress, Obese Eyes: No: Sclera Icterus HENT: No: Nasal Congestion Neck: No: Decreased ROM Respiratory: Yes: Dimnished at the bases. No: Accessory Muscle Use, Rales, Wheezes Gastrointestinal: Yes: Normal Bowel Sounds. No: Distention, Hepatomegaly, Palpable Mass, Tenderness Cardiovascular: Yes: Regular Rate and Rhythm JVD: No Heart Sounds: Yes: S1, S2. 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
[2020-09-17 14:14] VITALS: BP 102/52; PULSE 91; TEMP 98.7
[2020-09-18] MEDS ORDERED: FUROSEMIDE 40 MG TABLET (FP) PO SCH (13:31)
== END 2020-09-17 13:45 | disposition home or self-care (01) | DRG 291 ==
LOC: JER 11:26 → JERBED 15:37 → J4S 23:30
PROVIDERS: ADMIT Internal Medicine; ATTEND Internal Medicine
PROC: 5A09557 Assistance with Respiratory Ventilation, Greater than 96 Consecutive Hours, Continuous Positive Airway Pressure (ICD-10-PCS; principal; 2020-09-12)
DX: I13.0 Hypertensive heart and chronic kidney disease with heart failure and stage 1 through stage 4 chronic kidney disease, or unspecified chronic kidney disease (principal); I50.23 Acute on chronic systolic (congestive) heart failure; Z68.41 Body mass index [BMI] 40.0-44.9, adult; I47.1 Supraventricular tachycardia; E66.01 Morbid (severe) obesity due to excess calories; J45.909 Unspecified asthma, uncomplicated; N18.9 Chronic kidney disease, unspecified; G47.33 Obstructive sleep apnea (adult) (pediatric); I48.0 Paroxysmal atrial fibrillation; E11.9 Type 2 diabetes mellitus without complications; I42.8 Other cardiomyopathies; J44.9 Chronic obstructive pulmonary disease, unspecified; E78.5 Hyperlipidemia, unspecified; E03.9 Hypothyroidism, unspecified
CPT/HCPCS: 36415; 71045-TC-FY; 80053; 81003; 82803; 82962; 83605; 83880; 84443; 84484; 85025; 87086; 87186; 93005; 93010; 94660; 99285-25; C9803; J0131; U0003

== ENCOUNTER 2020-10-21 23:02 | Inpatient (IN) | payer OTHER ==
[2020-10-21] MEDS ORDERED: DEXAMETHASONE SOD PHOSPHATE 10 MG/1 ML VIAL ONE (23:18)
[2020-10-21] MEDS ORDERED: ALBUTEROL SO4 2.5/IPRATROPIUM 0.5 INH SOL 3 ML VIAL.NEB. NEB ONE (23:18)
[2020-10-22] MEDS ORDERED: ACETAMINOPHEN 1000 MG/100 ML VIAL (NON FORMULARY) IVPB ONE (00:09)
[2020-10-22 00:10] LABS: VENOUS BASE EXCESS -0.1 mmol/L (-2-2); VENOUS O2 SATURATION 85.6 % (70-80); VENOUS PCO2 40.9 mmHg (38-52); VENOUS PH 7.399 (7.310-7.410)
[2020-10-22 00:12] LABS: BASO % 0.5 % (0-2.0); EOS % 0.6 % (0-4.5); HEMATOCRIT 32.5 % (32.4-45.2); HEMOGLOBIN 10.2 GM/dL (10.7-15.3); LYMPH % 14.1 % (8-40); MCH 24.5 pg (25.7-33.7); MCHC 31.3 g/dl (32.0-36.0); MEAN CELL VOLUME 78.3 fl (80-96); MEAN PLT VOLUME 9.4 fl (7.5-11.1); MONO % 5.7 % (3.8-10.2); NEUT % 79.1 % (42.8-82.8); PLATELET COUNT 288 K/MM3 (134-434); RBC 4.15 M/mm3 (3.60-5.2); RDW 18.8 % (11.6-15.6); WHITE BLOOD COUNT 9.2 K/mm3 (4.0-10.0)
[2020-10-22] MEDS ORDERED: ACETAMINOPHEN INJECTION 100 ML IVPB ONE (00:13)
[2020-10-22 00:19] LABS: INR 1.85 (0.83-1.09); PROTHROMBIN TIME (PATIENT) 22.3 SEC (9.7-13.0)
[2020-10-22 00:21] LABS: ACTIVATED PTT 39.6 SECONDS (25.2-36.5)
[2020-10-22 00:24] LABS: POTASSIUM 3.7 mmol/L (3.5-5.1)
[2020-10-22 00:27] LABS: ALBUMIN 3.7 g/dl (3.4-5.0); BLOOD UREA NITROGEN 18.6 mg/dL (7-18)
[2020-10-22 00:30] LABS: CREATININE 1.6 mg/dL (0.55-1.3)
[2020-10-22 00:32] LABS: BILIRUBIN,TOTAL 0.4 mg/dL (0.2-1); TOT PROT 7.4 g/dl (6.4-8.2)
[2020-10-22] MEDS ORDERED: FUROSEMIDE 40 MG/4 ML INJECTABLE VIAL IVPUSH ONE (00:51)
[2020-10-22] MEDS ORDERED: FUROSEMIDE 40 MG/4 ML INJECTABLE VIAL ONE ×2 (00:54→08:42)
[2020-10-22] MEDS ORDERED: MAG HYDROX/AL HYDROX/SIMETH 30 ML UNIT-DOSE CUP PO ONE (06:58)
[2020-10-22] MEDS ORDERED: ALBUTEROL SO4 2.5/IPRATROPIUM 0.5 INH SOL 3 ML VIAL.NEB. NEB PRN (07:41)
[2020-10-22] MEDS ORDERED: PREGABALIN 25 MG CAPSULE ONE (08:39)
[2020-10-22] MEDS ORDERED: PANTOPRAZOLE 40 MG TABLET ONE (08:40)
[2020-10-22] MEDS ORDERED: APIXABAN 5 MG TABLET ONE (08:40)
[2020-10-22] MEDS ORDERED: LEVOTHYROXINE NA 25 MCG TABLET (FP) ONE (08:41)
[2020-10-22] MEDS ORDERED: POTASSIUM CHLORIDE TABS 10 MEQ TABLET.ER (FP) ONE (08:41)
[2020-10-22] MEDS ORDERED: CARVEDILOL 3.125 MG TABLET (FP) ONE (08:41)
[2020-10-22] MEDS ORDERED: SPIRONOLACTONE 25 MG TABLET ONE (08:42)
[2020-10-22] MEDS ORDERED: MAG HYDROX/AL HYDROX/SIMETH 30 ML UNIT-DOSE CUP ONE (08:42)
[2020-10-22] MEDS: LEVOTHYROXINE NA 75 MCG TABLET (FP) PO SCH (09:00)
[2020-10-22] MEDS ORDERED: DEXAMETHASONE SOD PHOSPHATE 10 MG/1 ML VIAL IVPUSH ONE (09:31)
[2020-10-22] MEDS: SPIRONOLACTONE 25 MG TABLET PO SCH (09:44)
[2020-10-22] MEDS: PREGABALIN 25 MG CAPSULE PO SCH ×2 (09:45→21:35)
[2020-10-22] MEDS: SACUBITRIL/VALSARTAN 24 MG-26 MG TABLET PO SCH ×2 (09:45→21:35)
[2020-10-22] MEDS: APIXABAN 5 MG TABLET PO SCH ×2 (09:45→21:35)
[2020-10-22] MEDS: CARVEDILOL 6.25 MG TABLET (FP) PO SCH ×2 (09:45→21:33)
[2020-10-22] MEDS: FUROSEMIDE 40 MG/4 ML INJECTABLE VIAL IVPUSH SCH (09:45)
[2020-10-22] MEDS: POLYETHYLENE GLYCOL 3350 119 GM BTL PO SCH (09:45)
[2020-10-22] MEDS: POTASSIUM CHLORIDE TABS 10 MEQ TABLET.ER (FP) PO SCH (09:45)
[2020-10-22] MEDS: TIOTROPIUM BROMIDE 2.5 MCG (SPIRIVA) RESPIMAT INHALER IH SCH (09:46)
[2020-10-22] MEDS: PANTOPRAZOLE 40 MG TABLET PO SCH (09:46)
[2020-10-22] MEDS ORDERED: MAGNESIUM HYDROX 2400MG/30ML ORAL SUSPENSION 30 ML CUP PO PRN (10:00)
[2020-10-22] MEDS: INSULIN SLIDING SCALE (NOVOLOG) 1 VIAL SQ SCH ×3 (11:45→22:13)
[2020-10-22 12:44] LABS: POTASSIUM 4.3 mmol/L (3.5-5.1)
[2020-10-22 12:45] LABS: BLOOD UREA NITROGEN 21.6 mg/dL (7-18)
[2020-10-22 12:49] LABS: CALCIUM 9.1 mg/dL (8.5-10.1); CREATININE 1.6 mg/dL (0.55-1.3)
[2020-10-22] MEDS: ACETAMINOPHEN 325 MG TABLET (FP) PO PRN (21:33)
[2020-10-22] MEDS: MONTELUKAST NA 10 MG TABLET PO SCH (21:33)
[2020-10-22] MEDS: ATORVASTATIN CA 80 MG TABLET (FP) PO SCH (21:33)
[2020-10-22] MEDS: INSULIN (LEVEMIR) 100 UNITS/ML UNITS SQ SCH (21:36)
[2020-10-23] MEDS: INSULIN SLIDING SCALE (NOVOLOG) 1 VIAL SQ SCH ×4 (06:33→21:04)
[2020-10-23] MEDS: LEVOTHYROXINE NA 75 MCG TABLET (FP) PO SCH (06:33)
[2020-10-23 06:52] LABS: BASO % 0.2 % (0-2.0); EOS % 0.1 % (0-4.5); HEMATOCRIT 29.9 % (32.4-45.2); HEMOGLOBIN 9.3 GM/dL (10.7-15.3); LYMPH % 14.4 % (8-40); MCH 24.1 pg (25.7-33.7); MCHC 31.1 g/dl (32.0-36.0); MEAN CELL VOLUME 77.4 fl (80-96); MEAN PLT VOLUME 10.2 fl (7.5-11.1); MONO % 8.2 % (3.8-10.2); NEUT % 77.1 % (42.8-82.8); PLATELET COUNT 273 K/MM3 (134-434); RBC 3.87 M/mm3 (3.60-5.2); RDW 18.7 % (11.6-15.6); WHITE BLOOD COUNT 9.7 K/mm3 (4.0-10.0)
[2020-10-23 07:00] LABS: POTASSIUM 4.2 mmol/L (3.5-5.1)
[2020-10-23 07:04] LABS: ALBUMIN 3.4 g/dl (3.4-5.0); CALCIUM 9.5 mg/dL (8.5-10.1)
[2020-10-23 07:05] LABS: BLOOD UREA NITROGEN 27.8 mg/dL (7-18)
[2020-10-23 07:08] LABS: CREATININE 1.4 mg/dL (0.55-1.3)
[2020-10-23 07:09] LABS: BILIRUBIN,TOTAL 0.6 mg/dL (0.2-1); TOT PROT 6.6 g/dl (6.4-8.2)
[2020-10-23] MEDS: SACUBITRIL/VALSARTAN 24 MG-26 MG TABLET PO SCH (10:32)
[2020-10-23] MEDS: PREGABALIN 25 MG CAPSULE PO SCH ×2 (10:33→21:04)
[2020-10-23] MEDS: PANTOPRAZOLE 40 MG TABLET PO SCH (10:33)
[2020-10-23] MEDS: APIXABAN 5 MG TABLET PO SCH ×2 (10:33→21:04)
[2020-10-23] MEDS: POTASSIUM CHLORIDE TABS 10 MEQ TABLET.ER (FP) PO SCH (10:33)
[2020-10-23] MEDS: SPIRONOLACTONE 25 MG TABLET PO SCH (10:33)
[2020-10-23] MEDS: CARVEDILOL 6.25 MG TABLET (FP) PO SCH (10:33)
[2020-10-23] MEDS: FUROSEMIDE 40 MG/4 ML INJECTABLE VIAL IVPUSH SCH (10:33)
[2020-10-23] MEDS: POLYETHYLENE GLYCOL 3350 119 GM BTL PO SCH (10:33)
[2020-10-23] MEDS: TIOTROPIUM BROMIDE 2.5 MCG (SPIRIVA) RESPIMAT INHALER IH SCH (10:34)
[2020-10-23] MEDS: ACETAMINOPHEN 325 MG TABLET (FP) PO PRN (11:20)
[2020-10-23] MEDS ORDERED: ALBUTEROL SO4 2.5/IPRATROPIUM 0.5 INH SOL 3 ML VIAL.NEB. NEB PRN (14:41)
[2020-10-23] MEDS ORDERED: ALBUTEROL SO4 HFA INHALER IH PRN (14:42)
[2020-10-23 19:10] LABS: URINE APPEARANCE CLEAR; URINE BILIRUBIN NEGATIVE (NEGATIVE); URINE COLOR YELLOW; URINE GLUCOSE (UA) NEGATIVE (NEGATIVE); URINE KETONE NEGATIVE (NEGATIVE); URINE LEUK ESTERASE TRACE (NEGATIVE); URINE NITRITE NEGATIVE (NEGATIVE); URINE PROTEIN NEGATIVE (NEGATIVE); URINE UROBILINOGEN 0.2 mg/dL (0.2-1.0)
[2020-10-23 19:54] LABS: EPI CELLS 6.5 /uL (0-25.1); HYALINE CASTS 0.38 /uL (0-3.1); URINE BACTERIA 29.6 /uL (0-1359); URINE RBC 1.1 /uL (0-23.9); URINE WBC 6.1 /uL (0-25.8)
[2020-10-23] MEDS: INSULIN (LEVEMIR) 100 UNITS/ML UNITS SQ SCH (21:04)
[2020-10-23] MEDS: ATORVASTATIN CA 80 MG TABLET (FP) PO SCH (21:04)
[2020-10-23] MEDS: MONTELUKAST NA 10 MG TABLET PO SCH (21:20)
[2020-10-24] MEDS: SACUBITRIL/VALSARTAN 24 MG-26 MG TABLET PO SCH ×3 (00:53→22:51)
[2020-10-24] MEDS: CARVEDILOL 6.25 MG TABLET (FP) PO SCH ×4 (00:53→22:37)
[2020-10-24] MEDS: INSULIN SLIDING SCALE (NOVOLOG) 1 VIAL SQ SCH ×4 (06:53→23:03)
[2020-10-24] MEDS: LEVOTHYROXINE NA 75 MCG TABLET (FP) PO SCH (06:54)
[2020-10-24 07:12] LABS: POTASSIUM 4.1 mmol/L (3.5-5.1)
[2020-10-24 07:14] LABS: ALBUMIN 3.5 g/dl (3.4-5.0); BLOOD UREA NITROGEN 27.2 mg/dL (7-18)
[2020-10-24 07:18] LABS: CREATININE 1.3 mg/dL (0.55-1.3)
[2020-10-24 07:19] LABS: BILIRUBIN,TOTAL 0.6 mg/dL (0.2-1)
[2020-10-24] MEDS ORDERED: PT OWN MED DRAWER 7, Y5N ONE (09:37)
[2020-10-24] MEDS: FUROSEMIDE 40 MG/4 ML INJECTABLE VIAL IVPUSH SCH (09:49)
[2020-10-24] MEDS: PANTOPRAZOLE 40 MG TABLET PO SCH (09:50)
[2020-10-24] MEDS: POTASSIUM CHLORIDE TABS 10 MEQ TABLET.ER (FP) PO SCH (09:51)
[2020-10-24] MEDS: PREGABALIN 25 MG CAPSULE PO SCH ×2 (09:52→22:49)
[2020-10-24] MEDS: APIXABAN 5 MG TABLET PO SCH ×2 (09:53→22:50)
[2020-10-24] MEDS: POLYETHYLENE GLYCOL 3350 119 GM BTL PO SCH (09:54)
[2020-10-24] MEDS: TIOTROPIUM BROMIDE 2.5 MCG (SPIRIVA) RESPIMAT INHALER IH SCH (10:10)
[2020-10-24] MEDS ORDERED: ALBUTEROL SO4 0.083% IH SOL 2.5 MG/3 ML VIAL.NEB. NEB PRN (11:59)
[2020-10-24] MEDS: SPIRONOLACTONE 25 MG TABLET PO SCH (16:44)
[2020-10-24] MEDS: ATORVASTATIN CA 80 MG TABLET (FP) PO SCH (22:38)
[2020-10-24] MEDS: MONTELUKAST NA 10 MG TABLET PO SCH (22:38)
[2020-10-24] MEDS: ACETAMINOPHEN 325 MG TABLET (FP) PO PRN (22:49)
[2020-10-24] MEDS: INSULIN (LEVEMIR) 100 UNITS/ML UNITS SQ SCH (22:50)
[2020-10-25] MEDS: INSULIN SLIDING SCALE (NOVOLOG) 1 VIAL SQ SCH ×4 (06:57→21:31)
[2020-10-25] MEDS: LEVOTHYROXINE NA 75 MCG TABLET (FP) PO SCH (06:57)
[2020-10-25] MEDS: PANTOPRAZOLE 40 MG TABLET PO SCH (10:22)
[2020-10-25] MEDS: APIXABAN 5 MG TABLET PO SCH ×2 (10:22→21:29)
[2020-10-25] MEDS: CARVEDILOL 6.25 MG TABLET (FP) PO SCH ×2 (10:22→21:29)
[2020-10-25] MEDS: SPIRONOLACTONE 25 MG TABLET PO SCH (10:22)
[2020-10-25] MEDS: POTASSIUM CHLORIDE TABS 10 MEQ TABLET.ER (FP) PO SCH (10:22)
[2020-10-25] MEDS: PREGABALIN 25 MG CAPSULE PO SCH ×2 (10:22→21:29)
[2020-10-25] MEDS: FUROSEMIDE 40 MG/4 ML INJECTABLE VIAL IVPUSH SCH (10:22)
[2020-10-25] MEDS: SACUBITRIL/VALSARTAN 24 MG-26 MG TABLET PO SCH ×2 (10:22→21:29)
[2020-10-25] MEDS: POLYETHYLENE GLYCOL 3350 119 GM BTL PO SCH (10:24)
[2020-10-25] MEDS: ACETAMINOPHEN 325 MG TABLET (FP) PO PRN ×2 (10:34→21:30)
[2020-10-25 12:59] LABS: CALCIUM 9.3 mg/dL (8.5-10.1)
[2020-10-25 13:00] LABS: BLOOD UREA NITROGEN 20.4 mg/dL (7-18)
[2020-10-25 13:03] LABS: CREATININE 1.3 mg/dL (0.55-1.3)
[2020-10-25] MEDS ORDERED: PT OWN MED DRAWER 7, Y5N ONE (14:40)
[2020-10-25] MEDS: BUDESONIDE/FORMETEROL FUMARATE 160/4.5 mcg INHALER IH SCH ×2 (14:43→21:34)
[2020-10-25 15:00] VITALS: BMI 40.5
[2020-10-25] MEDS: ATORVASTATIN CA 80 MG TABLET (FP) PO SCH (21:29)
[2020-10-25] MEDS: MONTELUKAST NA 10 MG TABLET PO SCH (21:29)
[2020-10-25] MEDS: INSULIN (LEVEMIR) 100 UNITS/ML UNITS SQ SCH (21:34)
[2020-10-26] MEDS: LEVOTHYROXINE NA 75 MCG TABLET (FP) PO SCH (06:32)
[2020-10-26] MEDS: INSULIN SLIDING SCALE (NOVOLOG) 1 VIAL SQ SCH ×3 (06:33→17:51)
[2020-10-26] MEDS ORDERED: PT OWN MED DRAWER 7, Y5N ONE (10:12)
[2020-10-26] MEDS: PREGABALIN 25 MG CAPSULE PO SCH (10:20)
[2020-10-26] MEDS: CARVEDILOL 6.25 MG TABLET (FP) PO SCH (10:20)
[2020-10-26] MEDS: APIXABAN 5 MG TABLET PO SCH (10:20)
[2020-10-26] MEDS: SPIRONOLACTONE 25 MG TABLET PO SCH (10:20)
[2020-10-26] MEDS: PANTOPRAZOLE 40 MG TABLET PO SCH (10:20)
[2020-10-26] MEDS: POTASSIUM CHLORIDE TABS 10 MEQ TABLET.ER (FP) PO SCH (10:20)
[2020-10-26] MEDS: SACUBITRIL/VALSARTAN 24 MG-26 MG TABLET PO SCH (10:20)
[2020-10-26] MEDS: POLYETHYLENE GLYCOL 3350 119 GM BTL PO SCH (10:20)
[2020-10-26] MEDS: BUDESONIDE/FORMETEROL FUMARATE 160/4.5 mcg INHALER IH SCH (10:21)
[2020-10-26] MEDS ORDERED: FUROSEMIDE 20 MG TABLET (FP) PO ONE (11:49)
[2020-10-26 15:58] VITALS: BP 96/62; PULSE 78; TEMP 97.9
== END 2020-10-26 15:00 | disposition home health service (06) | DRG 291 ==
LOC: JER 23:02 → SUPCPDRO 23:02 → JERBED 10-22 00:52 → UNDOADMIN 10-22 01:23 → JERBED 10-22 01:23 → JICU 10-22 17:06
PROVIDERS: ADMIT Internal Medicine; ATTEND Internal Medicine
DX: I13.0 Hypertensive heart and chronic kidney disease with heart failure and stage 1 through stage 4 chronic kidney disease, or unspecified chronic kidney disease (principal); I50.23 Acute on chronic systolic (congestive) heart failure; N17.9 Acute kidney failure, unspecified; I24.8 Other forms of acute ischemic heart disease; Z68.41 Body mass index [BMI] 40.0-44.9, adult; E66.01 Morbid (severe) obesity due to excess calories; Z79.01 Long term (current) use of anticoagulants; E03.9 Hypothyroidism, unspecified; D64.9 Anemia, unspecified; J44.9 Chronic obstructive pulmonary disease, unspecified; G47.33 Obstructive sleep apnea (adult) (pediatric); E78.5 Hyperlipidemia, unspecified; Z95.810 Presence of automatic (implantable) cardiac defibrillator; M54.40 Lumbago with sciatica, unspecified side; Z79.4 Long term (current) use of insulin; I42.8 Other cardiomyopathies; I48.0 Paroxysmal atrial fibrillation; R94.31 Abnormal electrocardiogram [ECG] [EKG]; E11.22 Type 2 diabetes mellitus with diabetic chronic kidney disease; N18.9 Chronic kidney disease, unspecified; Z86.19 Personal history of other infectious and parasitic diseases; R33.9 Retention of urine, unspecified
CPT/HCPCS: 36415; 71045-TC-FY; 71250-TC; 74176-TC; 80048; 80053; 81003; 82550; 82553; 82803; 82962; 83880; 84484; 85025; 85610; 85730; 87086; 93005; 93010; 94660; 99291; C9803; J0131; U0003

== ENCOUNTER 2020-11-03 18:35 | Inpatient (IN) | payer OTHER ==
[2020-11-03 19:27] VITALS: BMI 39.4
[2020-11-03] MEDS ORDERED: ALBUTEROL SO4 HFA INHALER IH PRN ×2 (19:37→23:59)
[2020-11-03] MEDS ORDERED: ALBUTEROL SO4 HFA INHALER IH ONE (19:42)
[2020-11-03] MEDS ORDERED: ACETAMINOPHEN 325 MG TABLET (FP) PO ONE (20:14)
[2020-11-03] MEDS ORDERED: ACETAMINOPHEN 325 MG TABLET (FP) ONE (20:16)
[2020-11-03 20:29] LABS: BASO % 0.9 % (0-2.0); EOS % 0.3 % (0-4.5); HEMATOCRIT 33.2 % (32.4-45.2); LYMPH % 13.5 % (8-40); MCH 23.3 pg (25.7-33.7); MEAN CELL VOLUME 77.6 fl (80-96); MEAN PLT VOLUME 9.9 fl (7.5-11.1); MONO % 5.1 % (3.8-10.2); NEUT % 80.2 % (42.8-82.8); PLATELET COUNT 275 K/MM3 (134-434); RBC 4.27 M/mm3 (3.60-5.2); RDW 18.9 % (11.6-15.6); WHITE BLOOD COUNT 12.2 K/mm3 (4.0-10.0)
[2020-11-03 20:55] LABS: POTASSIUM 3.8 mmol/L (3.5-5.1)
[2020-11-03 20:57] LABS: CALCIUM 9.6 mg/dL (8.5-10.1)
[2020-11-03 20:58] LABS: ALBUMIN 3.9 g/dl (3.4-5.0)
[2020-11-03 21:01] LABS: CREATININE 1.5 mg/dL (0.55-1.3)
[2020-11-03 21:02] LABS: BILIRUBIN,TOTAL 0.6 mg/dL (0.2-1); TOT PROT 7.5 g/dl (6.4-8.2)
[2020-11-03 21:06] LABS: N-TERMINAL BNP 5755.9 pg/ml (5-125)
[2020-11-03] MEDS ORDERED: FUROSEMIDE 40 MG/4 ML INJECTABLE VIAL IVPUSH ONE (21:45)
[2020-11-03] MEDS ORDERED: methylPREDNISolone NA SUCC 125 MG/2 ML VIAL IVPUSH ONE (21:46)
[2020-11-03] MEDS ORDERED: methylPREDNISolone NA SUCC 125 MG/2 ML VIAL ONE (21:49)
[2020-11-03] MEDS ORDERED: FUROSEMIDE 40 MG/4 ML INJECTABLE VIAL ONE (21:49)
[2020-11-04] MEDS: APIXABAN 5 MG TABLET PO SCH ×3 (00:03→21:25)
[2020-11-04] MEDS: methylPREDNISolone NA SUCC 40 MG/1 ML VIAL IVPUSH SCH ×3 (02:05→17:05)
[2020-11-04] MEDS: PANTOPRAZOLE 40 MG TABLET PO SCH (08:33)
[2020-11-04] MEDS: LEVOTHYROXINE NA 75 MCG TABLET (FP) PO SCH (08:33)
[2020-11-04] MEDS: SACUBITRIL/VALSARTAN 24 MG-26 MG TABLET PO SCH ×2 (09:58→21:25)
[2020-11-04] MEDS: FUROSEMIDE 40 MG/4 ML INJECTABLE VIAL IVPUSH SCH (09:58)
[2020-11-04] MEDS: POTASSIUM CHLORIDE TABS 10 MEQ TABLET.ER (FP) PO SCH (09:58)
[2020-11-04] MEDS: PREGABALIN 25 MG CAPSULE PO SCH ×2 (09:58→21:25)
[2020-11-04] MEDS: MAGNESIUM HYDROX 2400MG/30ML ORAL SUSPENSION 30 ML CUP PO SCH (09:58)
[2020-11-04] MEDS: CARVEDILOL 6.25 MG TABLET (FP) PO SCH ×2 (09:58→21:25)
[2020-11-04] MEDS: POLYETHYLENE GLYCOL 3350 119 GM BTL PO SCH (09:59)
[2020-11-04] MEDS ORDERED: PATIENT'S OWN MEDICATION (NON-FORMULARY) (Potassium Chloride [Potassium Chloride] 10 MEQ C PO SCH (10:00)
[2020-11-04] MEDS ORDERED: SPIRONOLACTONE 25 MG TABLET PO SCH (10:00)
[2020-11-04] MEDS: TIOTROPIUM BROMIDE 2.5 MCG (SPIRIVA) RESPIMAT INHALER IH SCH (12:36)
[2020-11-04 13:27] LABS: BASO % 0.2 % (0-2.0); HEMATOCRIT 31.2 % (32.4-45.2); HEMOGLOBIN 9.8 GM/dL (10.7-15.3); LYMPH % 9.4 % (8-40); MCH 24.1 pg (25.7-33.7); MCHC 31.3 g/dl (32.0-36.0); MEAN CELL VOLUME 76.7 fl (80-96); MEAN PLT VOLUME 10.2 fl (7.5-11.1); MONO % 4.6 % (3.8-10.2); NEUT % 85.8 % (42.8-82.8); PLATELET COUNT 269 K/MM3 (134-434); RBC 4.07 M/mm3 (3.60-5.2); RDW 19.1 % (11.6-15.6); WHITE BLOOD COUNT 5.9 K/mm3 (4.0-10.0)
[2020-11-04 13:58] LABS: POTASSIUM 4.7 mmol/L (3.5-5.1)
[2020-11-04 14:03] LABS: ALBUMIN 3.6 g/dl (3.4-5.0); BLOOD UREA NITROGEN 26.8 mg/dL (7-18); CALCIUM 9.7 mg/dL (8.5-10.1)
[2020-11-04 14:07] LABS: CREATININE 1.6 mg/dL (0.55-1.3)
[2020-11-04 14:08] LABS: BILIRUBIN,TOTAL 0.7 mg/dL (0.2-1)
[2020-11-04] MEDS ORDERED: INSULIN (NOVOLOG) ASPART 100 UNITS/ML 10ML VIAL SQ ONE (15:30)
[2020-11-04] MEDS ORDERED: MAGNESIUM HYDROX 2400MG/30ML ORAL SUSPENSION 30 ML CUP PO ONE (16:00)
[2020-11-04] MEDS: INSULIN SLIDING SCALE (NOVOLOG) 1 VIAL SQ SCH ×2 (17:07→21:27)
[2020-11-04] MEDS: ATORVASTATIN CA 80 MG TABLET (FP) PO SCH (21:25)
[2020-11-04] MEDS: MONTELUKAST NA 10 MG TABLET PO SCH (21:25)
[2020-11-04] MEDS: INSULIN (LEVEMIR) 100 UNITS/ML UNITS SQ SCH (21:26)
[2020-11-05] MEDS: INSULIN SLIDING SCALE (NOVOLOG) 1 VIAL SQ SCH ×4 (06:33→21:24)
[2020-11-05] MEDS: PANTOPRAZOLE 40 MG TABLET PO SCH (06:33)
[2020-11-05] MEDS: LEVOTHYROXINE NA 75 MCG TABLET (FP) PO SCH (06:33)
[2020-11-05] MEDS ORDERED: methylPREDNISolone NA SUCC 40 MG/1 ML VIAL IVPUSH SCH (10:00)
[2020-11-05] MEDS: POLYETHYLENE GLYCOL 3350 119 GM BTL PO SCH (11:47)
[2020-11-05] MEDS: ENOXAPARIN NA (PORCINE) 40 MG/0.4 ML DISP.SYRIN SQ SCH (11:59)
[2020-11-05] MEDS: SACUBITRIL/VALSARTAN 24 MG-26 MG TABLET PO SCH ×2 (12:00→21:22)
[2020-11-05] MEDS: CARVEDILOL 6.25 MG TABLET (FP) PO SCH ×2 (12:00→21:21)
[2020-11-05] MEDS: FUROSEMIDE 40 MG/4 ML INJECTABLE VIAL IVPUSH SCH (12:00)
[2020-11-05] MEDS: POTASSIUM CHLORIDE TABS 10 MEQ TABLET.ER (FP) PO SCH (12:00)
[2020-11-05] MEDS: MAGNESIUM HYDROX 2400MG/30ML ORAL SUSPENSION 30 ML CUP PO SCH (12:01)
[2020-11-05] MEDS: PREGABALIN 25 MG CAPSULE PO SCH ×2 (12:01→21:22)
[2020-11-05] MEDS: TIOTROPIUM BROMIDE 2.5 MCG (SPIRIVA) RESPIMAT INHALER IH SCH (12:03)
[2020-11-05 12:26] LABS: BASO % 0.1 % (0-2.0); HEMATOCRIT 30.6 % (32.4-45.2); HEMOGLOBIN 9.6 GM/dL (10.7-15.3); LYMPH % 15.1 % (8-40); MCH 24.1 pg (25.7-33.7); MCHC 31.3 g/dl (32.0-36.0); MEAN CELL VOLUME 76.8 fl (80-96); MEAN PLT VOLUME 10.1 fl (7.5-11.1); MONO % 10.1 % (3.8-10.2); NEUT % 74.7 % (42.8-82.8); PLATELET COUNT 257 K/MM3 (134-434); RBC 3.98 M/mm3 (3.60-5.2); RDW 19.1 % (11.6-15.6); WHITE BLOOD COUNT 9.5 K/mm3 (4.0-10.0)
[2020-11-05 12:57] LABS: POTASSIUM 4.8 mmol/L (3.5-5.1)
[2020-11-05 13:01] LABS: ALBUMIN 3.5 g/dl (3.4-5.0); BLOOD UREA NITROGEN 32.8 mg/dL (7-18); CALCIUM 9.5 mg/dL (8.5-10.1)
[2020-11-05 13:04] LABS: CREATININE 1.5 mg/dL (0.55-1.3)
[2020-11-05 13:06] LABS: BILIRUBIN,TOTAL 0.7 mg/dL (0.2-1); TOT PROT 6.8 g/dl (6.4-8.2)
[2020-11-05] MEDS: ATORVASTATIN CA 80 MG TABLET (FP) PO SCH (21:22)
[2020-11-05] MEDS: MONTELUKAST NA 10 MG TABLET PO SCH (21:22)
[2020-11-05] MEDS: INSULIN (LEVEMIR) 100 UNITS/ML UNITS SQ SCH (21:24)
[2020-11-06] MEDS: INSULIN SLIDING SCALE (NOVOLOG) 1 VIAL SQ SCH ×2 (06:16→12:14)
[2020-11-06] MEDS: PANTOPRAZOLE 40 MG TABLET PO SCH (06:16)
[2020-11-06] MEDS: LEVOTHYROXINE NA 75 MCG TABLET (FP) PO SCH (06:16)
[2020-11-06] MEDS: PREGABALIN 25 MG CAPSULE PO SCH (09:50)
[2020-11-06] MEDS: POTASSIUM CHLORIDE TABS 10 MEQ TABLET.ER (FP) PO SCH (09:50)
[2020-11-06] MEDS: ENOXAPARIN NA (PORCINE) 40 MG/0.4 ML DISP.SYRIN SQ SCH (09:50)
[2020-11-06] MEDS: SACUBITRIL/VALSARTAN 24 MG-26 MG TABLET PO SCH (09:50)
[2020-11-06] MEDS: MAGNESIUM HYDROX 2400MG/30ML ORAL SUSPENSION 30 ML CUP PO SCH (09:50)
[2020-11-06] MEDS: CARVEDILOL 6.25 MG TABLET (FP) PO SCH (09:50)
[2020-11-06] MEDS: TIOTROPIUM BROMIDE 2.5 MCG (SPIRIVA) RESPIMAT INHALER IH SCH (09:52)
[2020-11-06] MEDS: FUROSEMIDE 40 MG/4 ML INJECTABLE VIAL IVPUSH SCH (09:52)
[2020-11-06] MEDS: POLYETHYLENE GLYCOL 3350 119 GM BTL PO SCH (09:54)
[2020-11-06] MEDS ORDERED: methylPREDNISolone NA SUCC 40 MG/1 ML VIAL IVPUSH SCH (10:00)
[2020-11-06 14:14] VITALS: BP 117/84; PULSE 80; TEMP 97.7
[2020-11-07] MEDS ORDERED: FUROSEMIDE 40 MG TABLET (FP) PO SCH (10:00)
== END 2020-11-06 18:00 | disposition home health service (06) | DRG 291 ==
LOC: JER 18:35 → JERBED 21:56 → J4S 11-04 05:27
PROVIDERS: ADMIT Internal Medicine; ATTEND Internal Medicine
DX: I13.0 Hypertensive heart and chronic kidney disease with heart failure and stage 1 through stage 4 chronic kidney disease, or unspecified chronic kidney disease (principal); I50.23 Acute on chronic systolic (congestive) heart failure; J45.41 Moderate persistent asthma with (acute) exacerbation; N17.9 Acute kidney failure, unspecified; E03.9 Hypothyroidism, unspecified; I25.2 Old myocardial infarction; I25.10 Atherosclerotic heart disease of native coronary artery without angina pectoris; E78.5 Hyperlipidemia, unspecified; F32.9 Major depressive disorder, single episode, unspecified; I48.0 Paroxysmal atrial fibrillation; E11.22 Type 2 diabetes mellitus with diabetic chronic kidney disease; N18.9 Chronic kidney disease, unspecified; J45.40 Moderate persistent asthma, uncomplicated; I42.8 Other cardiomyopathies; M54.30 Sciatica, unspecified side; D64.9 Anemia, unspecified; R79.89 Other specified abnormal findings of blood chemistry; G47.33 Obstructive sleep apnea (adult) (pediatric); K21.9 Gastro-esophageal reflux disease without esophagitis; J44.9 Chronic obstructive pulmonary disease, unspecified; E66.9 Obesity, unspecified; Z68.39 Body mass index [BMI] 39.0-39.9, adult; Z95.0 Presence of cardiac pacemaker; Z87.11 Personal history of peptic ulcer disease; Z96.653 Presence of artificial knee joint, bilateral
CPT/HCPCS: 36415; 71045-TC-FY; 71250-TC; 80053; 82550; 82962; 83880; 84484; 85025; 93005; 93010; 94660; 99285-25; C9803; U0003

== ENCOUNTER 2020-11-26 15:45 | Inpatient (IN) | payer OTHER ==
[2020-11-26 16:01] VITALS: BMI 38.4
[2020-11-26] MEDS ORDERED: MILRINONE 20MG/100ML IVPB - 20,000 MCG/100 ML ML IVPB SCH (16:45)
[2020-11-26 17:33] LABS: BASO % 0.9 % (0-2.0); EOS % 1.6 % (0-4.5); HEMATOCRIT 40.5 % (32.4-45.2); HEMOGLOBIN 12.6 GM/dL (10.7-15.3); LYMPH % 26.7 % (8-40); MCH 24.6 pg (25.7-33.7); MEAN CELL VOLUME 79.2 fl (80-96); MEAN PLT VOLUME 9.2 fl (7.5-11.1); MONO % 5.5 % (3.8-10.2); NEUT % 65.3 % (42.8-82.8); PLATELET COUNT 366 K/MM3 (134-434); RBC 5.11 M/mm3 (3.60-5.2); RDW 22.9 % (11.6-15.6); WHITE BLOOD COUNT 7.5 K/mm3 (4.0-10.0)
[2020-11-26 17:44] LABS: ALBUMIN 3.9 g/dl (3.4-5.0); CALCIUM 9.6 mg/dL (8.5-10.1)
[2020-11-26 17:49] LABS: BILIRUBIN,TOTAL 0.7 mg/dL (0.2-1); CREATININE 1.2 mg/dL (0.55-1.3); TOT PROT 8.2 g/dl (6.4-8.2)
[2020-11-26 17:53] LABS: N-TERMINAL BNP 602.1 pg/ml (5-125)
[2020-11-26 19:34] LABS: ANISOCYTOSIS 3+; MACROCYTOSIS 1+
[2020-11-27] MEDS ORDERED: ALBUTEROL SO4 2.5/IPRATROPIUM 0.5 INH SOL 3 ML VIAL.NEB. NEB PRN (00:12)
[2020-11-27 06:14] LABS: BASO % 1.1 % (0-2.0); EOS % 2.1 % (0-4.5); HEMATOCRIT 36.8 % (32.4-45.2); HEMOGLOBIN 11.7 GM/dL (10.7-15.3); LYMPH % 35.2 % (8-40); MCH 24.9 pg (25.7-33.7); MCHC 31.7 g/dl (32.0-36.0); MEAN CELL VOLUME 78.6 fl (80-96); MEAN PLT VOLUME 8.8 fl (7.5-11.1); MONO % 7.8 % (3.8-10.2); NEUT % 53.8 % (42.8-82.8); PLATELET COUNT 306 K/MM3 (134-434); RBC 4.68 M/mm3 (3.60-5.2); RDW 23.7 % (11.6-15.6); WHITE BLOOD COUNT 6.2 K/mm3 (4.0-10.0)
[2020-11-27 06:30] LABS: CALCIUM 9.4 mg/dL (8.5-10.1)
[2020-11-27 06:31] LABS: ALBUMIN 3.4 g/dl (3.4-5.0); BLOOD UREA NITROGEN 14.6 mg/dL (7-18)
[2020-11-27 06:34] LABS: CREATININE 1.1 mg/dL (0.55-1.3)
[2020-11-27 06:35] LABS: BILIRUBIN,TOTAL 0.5 mg/dL (0.2-1); TOT PROT 6.7 g/dl (6.4-8.2)
[2020-11-27] MEDS ORDERED: LEVOTHYROXINE NA 75 MCG TABLET (FP) PO SCH (07:00)
[2020-11-27] MEDS ORDERED: LEVOTHYROXINE NA 25 MCG TABLET (FP) ONE (07:02)
[2020-11-27] MEDS ORDERED: PANTOPRAZOLE 40 MG TABLET PO SCH (10:00)
[2020-11-27] MEDS ORDERED: PREGABALIN 25 MG CAPSULE PO SCH (10:00)
[2020-11-27] MEDS ORDERED: CARVEDILOL 6.25 MG TABLET (FP) PO SCH (10:00)
[2020-11-27] MEDS ORDERED: FUROSEMIDE 40 MG TABLET (FP) PO SCH (10:00)
[2020-11-27] MEDS ORDERED: TIOTROPIUM BROMIDE 2.5 MCG (SPIRIVA) RESPIMAT INHALER IH SCH (10:00)
[2020-11-27] MEDS ORDERED: PATIENT'S OWN MEDICATION (NON-FORMULARY) (Potassium Chloride [Potassium Chloride] 10 MEQ C PO SCH (10:00)
[2020-11-27] MEDS ORDERED: POTASSIUM CHLORIDE TABS 10 MEQ TABLET.ER (FP) PO SCH (10:00)
[2020-11-27] MEDS ORDERED: POLYETHYLENE GLYCOL 3350 119 GM BTL PO SCH (10:00)
[2020-11-27] MEDS ORDERED: SACUBITRIL/VALSARTAN 24 MG-26 MG TABLET PO SCH (10:00)
[2020-11-27] MEDS ORDERED: POTASSIUM CHLORIDE TABS 10 MEQ TABLET.ER (FP) ONE (10:20)
[2020-11-27] MEDS ORDERED: PREGABALIN 25 MG CAPSULE ONE (10:20)
[2020-11-27] MEDS ORDERED: FUROSEMIDE 40 MG TABLET (FP) ONE (10:20)
[2020-11-27] MEDS ORDERED: PANTOPRAZOLE 40 MG TABLET ONE (10:22)
[2020-11-27] MEDS ORDERED: DIPHTH,PERTUSS(ACELL),TET 0.5 ML DISP.SYRIN IM ONE (12:09)
[2020-11-27 14:37] VITALS: BP 82/55; PULSE 91; TEMP 98.5
[2020-11-27] MEDS ORDERED: INSULIN (LEVEMIR) 100 UNITS/ML UNITS SQ SCH (22:00)
[2020-11-27] MEDS ORDERED: ATORVASTATIN CA 80 MG TABLET (FP) PO SCH (22:00)
[2020-11-27] MEDS ORDERED: MONTELUKAST NA 10 MG TABLET PO SCH (22:00)
== END 2020-11-27 15:05 | disposition home or self-care (01) | DRG 315 ==
LOC: JER 15:45 → JERBED 19:15
PROVIDERS: ADMIT Internal Medicine; ATTEND Internal Medicine
PROC: 05WY33Z Revision of Infusion Device in Upper Vein, Percutaneous Approach (ICD-10-PCS; principal; 2020-11-27)
DX: T82.594A Other mechanical complication of infusion catheter, initial encounter (principal); I50.22 Chronic systolic (congestive) heart failure; I42.8 Other cardiomyopathies; I48.0 Paroxysmal atrial fibrillation; E11.9 Type 2 diabetes mellitus without complications; J45.909 Unspecified asthma, uncomplicated; E66.9 Obesity, unspecified; Z68.38 Body mass index [BMI] 38.0-38.9, adult; I48.91 Unspecified atrial fibrillation; D64.9 Anemia, unspecified; Z79.01 Long term (current) use of anticoagulants; Z79.4 Long term (current) use of insulin
CPT/HCPCS: 22510; 36415; 71046-TC-FY; 80053; 82550; 83880; 84484; 85025; 93005; 93010; 99285-25; C9803; U0003

== ENCOUNTER 2021-01-06 19:08 | Inpatient (IN) | payer OTHER ==
[2021-01-06 20:07] VITALS: BMI 37.8
[2021-01-06] MEDS ORDERED: FUROSEMIDE 40 MG/4 ML INJECTABLE VIAL IVPUSH ONE ×2 (20:13→21:12)
[2021-01-06 20:22] LABS: BASO % 1.1 % (0-2.0); EOS % 2.3 % (0-4.5); HEMOGLOBIN 12.4 GM/dL (10.7-15.3); LYMPH % 26.2 % (8-40); MCH 26.7 pg (25.7-33.7); MCHC 31.8 g/dl (32.0-36.0); MEAN CELL VOLUME 83.8 fl (80-96); MEAN PLT VOLUME 10.1 fl (7.5-11.1); MONO % 5.5 % (3.8-10.2); NEUT % 64.9 % (42.8-82.8); RBC 4.66 M/mm3 (3.60-5.2)
[2021-01-06 20:27] LABS: EPI CELLS 12 /uL (0-25.1); HYALINE CASTS 2 /uL (0-3.1); URINE APPEARANCE CLEAR; URINE BACTERIA 465 /uL (0-1359); URINE BILIRUBIN NEGATIVE (NEGATIVE); URINE COLOR YELLOW; URINE GLUCOSE (UA) 2+ (NEGATIVE); URINE KETONE NEGATIVE (NEGATIVE); URINE LEUK ESTERASE NEGATIVE (NEGATIVE); URINE NITRITE NEGATIVE (NEGATIVE); URINE PROTEIN NEGATIVE (NEGATIVE); URINE RBC 3 /uL (0-23.9); URINE UROBILINOGEN 0.2 mg/dL (0.2-1.0); URINE WBC 14 /uL (0-25.8)
[2021-01-06] MEDS ORDERED: FUROSEMIDE 40 MG/4 ML INJECTABLE VIAL ONE ×2 (20:42→21:23)
[2021-01-06 20:54] LABS: PLATELET COUNT 312 K/MM3 (134-434); PLATELET ESTIMATE ADEQUATE
[2021-01-06 20:58] LABS: POTASSIUM 3.5 mmol/L (3.5-5.1)
[2021-01-06 21:00] LABS: CALCIUM 9.4 mg/dL (8.5-10.1)
[2021-01-06 21:01] LABS: ALBUMIN 3.7 g/dl (3.4-5.0); BLOOD UREA NITROGEN 7.8 mg/dL (7-18)
[2021-01-06 21:04] LABS: CREATININE 1.2 mg/dL (0.55-1.3)
[2021-01-06 21:05] LABS: BILIRUBIN,TOTAL 0.4 mg/dL (0.2-1)
[2021-01-06 21:06] LABS: TOT PROT 7.7 g/dl (6.4-8.2)
[2021-01-06 21:34] LABS: INR 1.39 (0.83-1.09); PROTHROMBIN TIME (PATIENT) 16.7 SEC (9.7-13.0)
[2021-01-06 21:37] LABS: ACTIVATED PTT 31.3 SECONDS (25.2-36.5)
[2021-01-07] MEDS ORDERED: ALBUTEROL SO4 HFA INHALER IH PRN (00:59)
[2021-01-07] MEDS: LEVOTHYROXINE NA 75 MCG TABLET (FP) PO SCH (06:05)
[2021-01-07] MEDS: INSULIN SLIDING SCALE (NOVOLOG) 1 VIAL SQ SCH ×4 (06:05→22:36)
[2021-01-07 08:12] LABS: POTASSIUM 3.5 mmol/L (3.5-5.1)
[2021-01-07 08:18] LABS: BASO % 0.8 % (0-2.0); EOS % 1.2 % (0-4.5); HEMATOCRIT 34.6 % (32.4-45.2); HEMOGLOBIN 11.2 GM/dL (10.7-15.3); LYMPH % 26.3 % (8-40); MCH 26.9 pg (25.7-33.7); MCHC 32.6 g/dl (32.0-36.0); MEAN CELL VOLUME 82.6 fl (80-96); MEAN PLT VOLUME 9.4 fl (7.5-11.1); NEUT % 63.7 % (42.8-82.8); PLATELET COUNT 257 K/MM3 (134-434); RBC 4.18 M/mm3 (3.60-5.2); RDW 21.5 % (11.6-15.6); WHITE BLOOD COUNT 7.2 K/mm3 (4.0-10.0)
[2021-01-07 08:20] LABS: ALBUMIN 3.4 g/dl (3.4-5.0); BLOOD UREA NITROGEN 9.2 mg/dL (7-18)
[2021-01-07 08:23] LABS: CREATININE 1.2 mg/dL (0.55-1.3)
[2021-01-07 08:25] LABS: TOT PROT 6.9 g/dl (6.4-8.2)
[2021-01-07] MEDS ORDERED: POTASSIUM CHLORIDE ORAL LIQUID 20 MEQ/15 ML PO ONE (09:00)
[2021-01-07] MEDS ORDERED: POLYETHYLENE GLYCOL 3350 119 GM BTL PO SCH ×2 (10:00→14:29)
[2021-01-07] MEDS ORDERED: CARVEDILOL 6.25 MG TABLET (FP) PO SCH (10:00)
[2021-01-07] MEDS: FUROSEMIDE 40 MG/4 ML INJECTABLE VIAL IVPUSH SCH (10:18)
[2021-01-07] MEDS: PANTOPRAZOLE 40 MG TABLET PO SCH (10:18)
[2021-01-07] MEDS: PREGABALIN 25 MG CAPSULE PO SCH ×2 (10:18→21:33)
[2021-01-07] MEDS: metoPROLOL SUCCINATE 25 MG TAB.SR.24H (FP) PO SCH (10:18)
[2021-01-07] MEDS: POTASSIUM CHLORIDE TABS 10 MEQ TABLET.ER (FP) PO SCH (10:19)
[2021-01-07] MEDS: SACUBITRIL/VALSARTAN 24 MG-26 MG TABLET PO SCH ×2 (10:19→22:31)
[2021-01-07] MEDS: SPIRONOLACTONE 25 MG TABLET PO SCH (10:19)
[2021-01-07] MEDS: MAGNESIUM HYDROX 2400MG/30ML ORAL SUSPENSION 30 ML CUP PO SCH (10:19)
[2021-01-07] MEDS ORDERED: MILRINONE 20MG/100ML IVPB - 20,000 MCG/100 ML ML IVPB SCH (13:15)
[2021-01-07 14:46] LABS: MAGNESIUM 1.5 mg/dL (1.8-2.4)
[2021-01-07] MEDS ORDERED: ATORVASTATIN CA 80 MG TABLET (FP) PO SCH (22:00)
[2021-01-07] MEDS ORDERED: INSULIN (LEVEMIR) 100 UNITS/ML UNITS SQ SCH (22:00)
[2021-01-07] MEDS ORDERED: MONTELUKAST NA 10 MG TABLET PO SCH (22:00)
[2021-01-08 05:30] VITALS: PULSE 94; TEMP 98.2
[2021-01-08] MEDS: LEVOTHYROXINE NA 75 MCG TABLET (FP) PO SCH (06:18)
[2021-01-08] MEDS: INSULIN SLIDING SCALE (NOVOLOG) 1 VIAL SQ SCH ×2 (06:18→11:14)
[2021-01-08 08:32] VITALS: BP 124/88
[2021-01-08] MEDS: PREGABALIN 25 MG CAPSULE PO SCH (09:57)
[2021-01-08] MEDS: metoPROLOL SUCCINATE 25 MG TAB.SR.24H (FP) PO SCH (09:57)
[2021-01-08] MEDS: PANTOPRAZOLE 40 MG TABLET PO SCH (09:57)
[2021-01-08] MEDS: SACUBITRIL/VALSARTAN 24 MG-26 MG TABLET PO SCH (09:57)
[2021-01-08] MEDS: POTASSIUM CHLORIDE TABS 10 MEQ TABLET.ER (FP) PO SCH (09:58)
[2021-01-08] MEDS: FUROSEMIDE 40 MG/4 ML INJECTABLE VIAL IVPUSH SCH (09:58)
[2021-01-08] MEDS: SPIRONOLACTONE 25 MG TABLET PO SCH (09:58)
[2021-01-08] MEDS: MAGNESIUM HYDROX 2400MG/30ML ORAL SUSPENSION 30 ML CUP PO SCH (10:13)
[2021-01-08] MEDS ORDERED: FUROSEMIDE 40 MG TABLET (FP) PO SCH (14:00)
== END 2021-01-08 11:40 | disposition home or self-care (01) | DRG 291 ==
LOC: JER 19:08 → JERBED 22:14 → JICU-6 23:58
PROVIDERS: ADMIT Internal Medicine; ATTEND Internal Medicine
DX: I11.0 Hypertensive heart disease with heart failure (principal); J96.01 Acute respiratory failure with hypoxia; J44.9 Chronic obstructive pulmonary disease, unspecified; I50.43 Acute on chronic combined systolic (congestive) and diastolic (congestive) heart failure; I42.8 Other cardiomyopathies; I10 Essential (primary) hypertension; E78.5 Hyperlipidemia, unspecified; E11.9 Type 2 diabetes mellitus without complications; I48.91 Unspecified atrial fibrillation; I25.2 Old myocardial infarction; E66.9 Obesity, unspecified; Z68.37 Body mass index [BMI] 37.0-37.9, adult; I48.0 Paroxysmal atrial fibrillation; E03.9 Hypothyroidism, unspecified; G47.33 Obstructive sleep apnea (adult) (pediatric); Z95.0 Presence of cardiac pacemaker; Z96.653 Presence of artificial knee joint, bilateral; Z87.11 Personal history of peptic ulcer disease
CPT/HCPCS: 36415; 71045-TC-FY; 80053; 81003; 82550; 82553; 82728; 82962; 83605; 83615; 83735; 83880; 84443; 84484; 85025; 85379; 85610; 85730; 86140; 86769; 87040; 87086; 93005; 93010; 94660; 99285-25; C9803; U0003

== ENCOUNTER 2021-01-24 20:24 | Inpatient (IN) | payer OTHER ==
[2021-01-24] MEDS ORDERED: ACETAMINOPHEN 1000 MG/100 ML VIAL (NON FORMULARY) IVPB ONE (21:51)
[2021-01-24] MEDS ORDERED: ONDANSETRON 4 MG/2 ML VIAL IVPUSH ONE (21:51)
[2021-01-24] MEDS ORDERED: ACETAMINOPHEN INJECTION 100 ML IVPB ONE (21:58)
[2021-01-24] MEDS ORDERED: ONDANSETRON 4 MG/2 ML VIAL ONE (21:58)
[2021-01-24 22:21] LABS: BASO % 0.9 % (0-2.0); EOS % 1.6 % (0-4.5); HEMATOCRIT 38.7 % (32.4-45.2); HEMOGLOBIN 12.6 GM/dL (10.7-15.3); LYMPH % 25.2 % (8-40); MCH 27.3 pg (25.7-33.7); MCHC 32.6 g/dl (32.0-36.0); MEAN CELL VOLUME 83.6 fl (80-96); MEAN PLT VOLUME 9.6 fl (7.5-11.1); MONO % 4.9 % (3.8-10.2); NEUT % 67.4 % (42.8-82.8); PLATELET COUNT 259 K/MM3 (134-434); RBC 4.63 M/mm3 (3.60-5.2); RDW 18.2 % (11.6-15.6); WHITE BLOOD COUNT 6.3 K/mm3 (4.0-10.0)
[2021-01-24 22:26] LABS: VENOUS BASE EXCESS 0.1 mmol/L (-2-2); VENOUS PCO2 46.7 mmHg (38-52); VENOUS PH 7.362 (7.310-7.410)
[2021-01-24 22:29] LABS: CALCIUM 9.1 mg/dL (8.5-10.1)
[2021-01-24 22:30] LABS: ALBUMIN 3.4 g/dl (3.4-5.0); BLOOD UREA NITROGEN 17.1 mg/dL (7-18); MAGNESIUM 1.7 mg/dL (1.8-2.4)
[2021-01-24 22:33] LABS: BILIRUBIN,DIRECT 0.1 mg/dL (0.0-0.2); CREATININE 1.2 mg/dL (0.55-1.3)
[2021-01-24 22:35] LABS: BILIRUBIN,TOTAL 0.3 mg/dL (0.2-1)
[2021-01-24 22:36] LABS: N-TERMINAL BNP 1223.5 pg/ml (5-125)
[2021-01-24 22:37] LABS: INR 1.4 (0.83-1.09); PROTHROMBIN TIME (PATIENT) 17.1 SEC (9.7-13.0)
[2021-01-24 22:39] LABS: ACTIVATED PTT 36.7 SECONDS (25.2-36.5)
[2021-01-25] MEDS ORDERED: ACETAMINOPHEN 325 MG TABLET (FP) PO ONE (01:20)
[2021-01-25] MEDS ORDERED: ACETAMINOPHEN 325 MG TABLET (FP) PO PRN (01:29)
[2021-01-25] MEDS ORDERED: ACETAMINOPHEN 325 MG TABLET (FP) ONE ×2 (01:50→17:43)
[2021-01-25 07:21] LABS: BASO % 0.7 % (0-2.0); EOS % 1.8 % (0-4.5); HEMATOCRIT 34.4 % (32.4-45.2); HEMOGLOBIN 11.2 GM/dL (10.7-15.3); LYMPH % 31.6 % (8-40); MCH 27.5 pg (25.7-33.7); MCHC 32.7 g/dl (32.0-36.0); MEAN CELL VOLUME 84.3 fl (80-96); MEAN PLT VOLUME 9.7 fl (7.5-11.1); MONO % 5.8 % (3.8-10.2); NEUT % 60.1 % (42.8-82.8); PLATELET COUNT 248 K/MM3 (134-434); RBC 4.09 M/mm3 (3.60-5.2); RDW 17.9 % (11.6-15.6); WHITE BLOOD COUNT 6.3 K/mm3 (4.0-10.0)
[2021-01-25 07:40] LABS: POTASSIUM 4.5 mmol/L (3.5-5.1)
[2021-01-25 08:01] LABS: BLOOD UREA NITROGEN 17.3 mg/dL (7-18)
[2021-01-25 08:02] LABS: ALBUMIN 3.4 g/dl (3.4-5.0)
[2021-01-25 08:06] LABS: CREATININE 1.2 mg/dL (0.55-1.3); TOT PROT 6.6 g/dl (6.4-8.2)
[2021-01-25 08:11] LABS: BILIRUBIN,TOTAL 0.5 mg/dL (0.2-1)
[2021-01-25] MEDS: INSULIN SLIDING SCALE (NOVOLOG) 1 VIAL SQ SCH ×4 (08:27→21:09)
[2021-01-25 08:45] LABS: EPI CELLS >36 /uL (0-25.1); HYALINE CASTS 9 /uL (0-3.1); URINE APPEARANCE CLOUDY; URINE BACTERIA 2327 /uL (0-1359); URINE BILIRUBIN NEGATIVE (NEGATIVE); URINE COLOR YELLOW; URINE GLUCOSE (UA) NEGATIVE (NEGATIVE); URINE KETONE NEGATIVE (NEGATIVE); URINE LEUK ESTERASE TRACE (NEGATIVE); URINE NITRITE NEGATIVE (NEGATIVE); URINE PROTEIN NEGATIVE (NEGATIVE); URINE UROBILINOGEN 0.2 mg/dL (0.2-1.0); URINE WBC 51 /uL (0-25.8)
[2021-01-25] MEDS ORDERED: PATIENT'S OWN MEDICATION (NON-FORMULARY) (Potassium Chloride [Potassium Chloride] 10 MEQ C PO SCH (10:00)
[2021-01-25] MEDS ORDERED: POTASSIUM CHLORIDE TABS 10 MEQ TABLET.ER (FP) ONE (10:27)
[2021-01-25] MEDS ORDERED: FUROSEMIDE 40 MG TABLET (FP) ONE (10:27)
[2021-01-25] MEDS ORDERED: PREGABALIN 25 MG CAPSULE ONE (10:27)
[2021-01-25] MEDS ORDERED: CARVEDILOL 3.125 MG TABLET (FP) ONE (10:27)
[2021-01-25] MEDS ORDERED: ENOXAPARIN NA (PORCINE) 40 MG/0.4 ML DISP.SYRIN SQ ONE (10:28)
[2021-01-25] MEDS: POTASSIUM CHLORIDE TABS 10 MEQ TABLET.ER (FP) PO SCH ×2 (10:30)
[2021-01-25] MEDS: SACUBITRIL/VALSARTAN 24 MG-26 MG TABLET PO SCH ×2 (10:30→21:16)
[2021-01-25] MEDS: FUROSEMIDE 40 MG TABLET (FP) PO SCH (10:30)
[2021-01-25] MEDS: CARVEDILOL 6.25 MG TABLET (FP) PO SCH ×2 (10:30→21:10)
[2021-01-25] MEDS: PREGABALIN 25 MG CAPSULE PO SCH ×2 (10:30→21:09)
[2021-01-25] MEDS: ENOXAPARIN NA (PORCINE) 40 MG/0.4 ML DISP.SYRIN SQ SCH (10:41)
[2021-01-25] MEDS: POLYETHYLENE GLYCOL 3350 119 GM BTL PO SCH (10:42)
[2021-01-25] MEDS: TIOTROPIUM BROMIDE 2.5 MCG (SPIRIVA) RESPIMAT INHALER IH SCH (10:49)
[2021-01-25] MEDS ORDERED: PANTOPRAZOLE 40 MG TABLET ONE (10:53)
[2021-01-25] MEDS: PANTOPRAZOLE 40 MG TABLET PO SCH (11:02)
[2021-01-25] MEDS ORDERED: INSULIN SLIDING SCALE (NOVOLOG) 1 VIAL SQ ONE (12:27)
[2021-01-25 12:59] LABS: URINE RBC 93.1 /uL (0-23.9)
[2021-01-25 20:14] VITALS: BMI 39.2
[2021-01-25] MEDS ORDERED: PT OWN MED DRAWER 7, Y5N ONE (20:59)
[2021-01-25] MEDS: INSULIN (LEVEMIR) 100 UNITS/ML UNITS SQ SCH (21:09)
[2021-01-25] MEDS: ATORVASTATIN CA 80 MG TABLET (FP) PO SCH (21:10)
[2021-01-25] MEDS: MONTELUKAST NA 10 MG TABLET PO SCH (21:10)
[2021-01-26] MEDS: INSULIN SLIDING SCALE (NOVOLOG) 1 VIAL SQ SCH ×4 (06:05→21:45)
[2021-01-26 07:31] LABS: BASO % 0.8 % (0-2.0); EOS % 3.5 % (0-4.5); HEMATOCRIT 33.2 % (32.4-45.2); HEMOGLOBIN 10.9 GM/dL (10.7-15.3); LYMPH % 35.9 % (8-40); MCH 27.7 pg (25.7-33.7); MCHC 32.9 g/dl (32.0-36.0); MEAN CELL VOLUME 84.1 fl (80-96); MEAN PLT VOLUME 9.5 fl (7.5-11.1); MONO % 7.1 % (3.8-10.2); NEUT % 52.7 % (42.8-82.8); PLATELET COUNT 224 K/MM3 (134-434); RBC 3.94 M/mm3 (3.60-5.2); RDW 17.9 % (11.6-15.6); WHITE BLOOD COUNT 5.7 K/mm3 (4.0-10.0)
[2021-01-26 07:48] LABS: POTASSIUM 3.9 mmol/L (3.5-5.1)
[2021-01-26 08:00] LABS: ALBUMIN 3.1 g/dl (3.4-5.0); BLOOD UREA NITROGEN 16.4 mg/dL (7-18); CALCIUM 8.8 mg/dL (8.5-10.1)
[2021-01-26 08:04] LABS: CREATININE 1.2 mg/dL (0.55-1.3)
[2021-01-26 08:05] LABS: BILIRUBIN,TOTAL 1.2 mg/dL (0.2-1); TOT PROT 6.3 g/dl (6.4-8.2)
[2021-01-26] MEDS ORDERED: PT OWN MED DRAWER 7, Y5N ONE ×3 (09:43→21:03)
[2021-01-26] MEDS: PANTOPRAZOLE 40 MG TABLET PO SCH (09:51)
[2021-01-26] MEDS: CARVEDILOL 3.125 MG TABLET (FP) PO SCH ×2 (09:51→21:12)
[2021-01-26] MEDS: POTASSIUM CHLORIDE TABS 10 MEQ TABLET.ER (FP) PO SCH ×2 (09:52→10:16)
[2021-01-26] MEDS: ENOXAPARIN NA (PORCINE) 40 MG/0.4 ML DISP.SYRIN SQ SCH (09:52)
[2021-01-26] MEDS: SACUBITRIL/VALSARTAN 24 MG-26 MG TABLET PO SCH ×2 (09:52→21:12)
[2021-01-26] MEDS: PREGABALIN 25 MG CAPSULE PO SCH ×2 (09:58→21:12)
[2021-01-26] MEDS: POLYETHYLENE GLYCOL 3350 119 GM BTL PO SCH (09:58)
[2021-01-26] MEDS: TIOTROPIUM BROMIDE 2.5 MCG (SPIRIVA) RESPIMAT INHALER IH SCH (10:45)
[2021-01-26] MEDS: ALBUTEROL SO4 HFA INHALER IH PRN (10:45)
[2021-01-26] MEDS: ALBUTEROL SO4 0.083% IH SOL 2.5 MG/3 ML VIAL.NEB. NEB PRN ×2 (16:45→19:55)
[2021-01-26] MEDS ORDERED: MILRINONE 20MG/100ML IVPB - 20,000 MCG/100 ML ML IVPB SCH (19:30)
[2021-01-26] MEDS ORDERED: ALBUTEROL SO4 2.5/IPRATROPIUM 0.5 INH SOL 3 ML VIAL.NEB. NEB SCH (20:00)
[2021-01-26] MEDS: ATORVASTATIN CA 80 MG TABLET (FP) PO SCH (21:12)
[2021-01-26] MEDS: APIXABAN 5 MG TABLET PO SCH (21:12)
[2021-01-26] MEDS: MONTELUKAST NA 10 MG TABLET PO SCH (21:13)
[2021-01-26] MEDS: INSULIN (LEVEMIR) 100 UNITS/ML UNITS SQ SCH (21:49)
[2021-01-27] MEDS: INSULIN SLIDING SCALE (NOVOLOG) 1 VIAL SQ SCH ×2 (06:27→11:35)
[2021-01-27] MEDS: ALBUTEROL SO4 0.083% IH SOL 2.5 MG/3 ML VIAL.NEB. NEB PRN (08:20)
[2021-01-27] MEDS: SACUBITRIL/VALSARTAN 24 MG-26 MG TABLET PO SCH (10:37)
[2021-01-27] MEDS: CARVEDILOL 3.125 MG TABLET (FP) PO SCH (10:38)
[2021-01-27] MEDS: FUROSEMIDE 40 MG TABLET (FP) PO SCH (10:38)
[2021-01-27] MEDS: PREGABALIN 25 MG CAPSULE PO SCH (10:38)
[2021-01-27] MEDS: APIXABAN 5 MG TABLET PO SCH (10:38)
[2021-01-27] MEDS: PANTOPRAZOLE 40 MG TABLET PO SCH (10:38)
[2021-01-27] MEDS: POTASSIUM CHLORIDE TABS 10 MEQ TABLET.ER (FP) PO SCH ×2 (10:38→10:45)
[2021-01-27] MEDS: POLYETHYLENE GLYCOL 3350 119 GM BTL PO SCH (10:39)
[2021-01-27] MEDS: TIOTROPIUM BROMIDE 2.5 MCG (SPIRIVA) RESPIMAT INHALER IH SCH (10:39)
[2021-01-27] MEDS: ALBUTEROL SO4 HFA INHALER IH PRN (10:39)
[2021-01-27 12:22] VITALS: BP 136/73; PULSE 95; TEMP 98
== END 2021-01-27 14:23 | disposition home or self-care (01) | DRG 291 ==
LOC: JER 20:24 → JERBED 21:53 → OBSVTOIN 01-25 01:28 → J4W 01-25 18:38
PROVIDERS: ADMIT Internal Medicine; ATTEND Internal Medicine
DX: I13.0 Hypertensive heart and chronic kidney disease with heart failure and stage 1 through stage 4 chronic kidney disease, or unspecified chronic kidney disease (principal); I50.33 Acute on chronic diastolic (congestive) heart failure; I42.8 Other cardiomyopathies; I25.2 Old myocardial infarction; I48.91 Unspecified atrial fibrillation; E03.9 Hypothyroidism, unspecified; E78.00 Pure hypercholesterolemia, unspecified; F32.9 Major depressive disorder, single episode, unspecified; I44.7 Left bundle-branch block, unspecified; J45.909 Unspecified asthma, uncomplicated; I48.0 Paroxysmal atrial fibrillation; E11.9 Type 2 diabetes mellitus without complications; J06.9 Acute upper respiratory infection, unspecified; I25.10 Atherosclerotic heart disease of native coronary artery without angina pectoris; E11.22 Type 2 diabetes mellitus with diabetic chronic kidney disease; N18.9 Chronic kidney disease, unspecified; J44.9 Chronic obstructive pulmonary disease, unspecified; K43.2 Incisional hernia without obstruction or gangrene; G47.33 Obstructive sleep apnea (adult) (pediatric); E66.9 Obesity, unspecified; Z68.39 Body mass index [BMI] 39.0-39.9, adult; E78.5 Hyperlipidemia, unspecified; Z95.810 Presence of automatic (implantable) cardiac defibrillator; Z96.653 Presence of artificial knee joint, bilateral; Z87.11 Personal history of peptic ulcer disease
CPT/HCPCS: 36415; 71045-TC-FY; 80053; 81003; 82248; 82550; 82728; 82803; 82962; 83605; 83615; 83735; 83880; 84484; 85025; 85610; 85730; 86140; 87086; 87804; 93005; 93010; 94640; 99285-25; C9803; G0378; J0131; U0003

== ENCOUNTER 2021-01-29 14:59 | Inpatient (IN) | payer OTHER ==
[2021-01-29 15:07] VITALS: BMI 37.8
[2021-01-29 16:17] LABS: BASO % 0.7 % (0-2.0); EOS % 1.9 % (0-4.5); HEMATOCRIT 39.3 % (32.4-45.2); MCH 27.7 pg (25.7-33.7); MCHC 33.2 g/dl (32.0-36.0); MEAN CELL VOLUME 83.5 fl (80-96); MEAN PLT VOLUME 9.4 fl (7.5-11.1); MONO % 5.8 % (3.8-10.2); NEUT % 67.6 % (42.8-82.8); PLATELET COUNT 291 K/MM3 (134-434); RDW 18.2 % (11.6-15.6); WHITE BLOOD COUNT 5.7 K/mm3 (4.0-10.0)
[2021-01-29 16:51] LABS: POTASSIUM 3.9 mmol/L (3.5-5.1)
[2021-01-29 16:56] LABS: ALBUMIN 3.6 g/dl (3.4-5.0); BLOOD UREA NITROGEN 15.5 mg/dL (7-18); CALCIUM 9.3 mg/dL (8.5-10.1); MAGNESIUM 1.6 mg/dL (1.8-2.4)
[2021-01-29 16:59] LABS: CREATININE 1.2 mg/dL (0.55-1.3); PHOSPHOROUS 3.9 mg/dL (2.5-4.9)
[2021-01-29 17:00] LABS: BILIRUBIN,TOTAL 0.4 mg/dL (0.2-1); TOT PROT 7.6 g/dl (6.4-8.2)
[2021-01-29 17:04] LABS: N-TERMINAL BNP 927.7 pg/ml (5-125)
[2021-01-29] MEDS ORDERED: ALBUTEROL SO4 HFA INHALER IH PRN (22:07)
[2021-01-29] MEDS ORDERED: PREGABALIN 25 MG CAPSULE ONE (22:43)
[2021-01-29] MEDS ORDERED: CARVEDILOL 3.125 MG TABLET (FP) ONE (22:44)
[2021-01-29] MEDS ORDERED: APIXABAN 5 MG TABLET ONE (22:44)
[2021-01-29] MEDS: PREGABALIN 25 MG CAPSULE PO SCH (22:48)
[2021-01-29] MEDS: CARVEDILOL 6.25 MG TABLET (FP) PO SCH (22:48)
[2021-01-29] MEDS: APIXABAN 5 MG TABLET PO SCH (22:48)
[2021-01-30 01:45] LABS: INR 1.59 (0.83-1.09)
[2021-01-30 01:47] LABS: ACTIVATED PTT 40.3 SECONDS (25.2-36.5)
[2021-01-30] MEDS: LEVOTHYROXINE NA 75 MCG TABLET (FP) PO SCH (08:59)
[2021-01-30 09:20] LABS: BASO % 0.2 % (0-2.0); HEMATOCRIT 35.4 % (32.4-45.2); HEMOGLOBIN 11.7 GM/dL (10.7-15.3); LYMPH % 13.8 % (8-40); MCH 27.7 pg (25.7-33.7); MCHC 32.9 g/dl (32.0-36.0); MEAN CELL VOLUME 84.2 fl (80-96); MEAN PLT VOLUME 9.5 fl (7.5-11.1); MONO % 4.8 % (3.8-10.2); NEUT % 81.2 % (42.8-82.8); PLATELET COUNT 273 K/MM3 (134-434); RBC 4.21 M/mm3 (3.60-5.2); RDW 16.9 % (11.6-15.6); WHITE BLOOD COUNT 6.5 K/mm3 (4.0-10.0)
[2021-01-30 09:25] LABS: POTASSIUM 4.4 mmol/L (3.5-5.1)
[2021-01-30 09:32] LABS: ALBUMIN 3.6 g/dl (3.4-5.0); BLOOD UREA NITROGEN 20.4 mg/dL (7-18); CALCIUM 9.8 mg/dL (8.5-10.1)
[2021-01-30 09:36] LABS: CREATININE 1.3 mg/dL (0.55-1.3)
[2021-01-30 09:37] LABS: BILIRUBIN,TOTAL 0.5 mg/dL (0.2-1); TOT PROT 7.2 g/dl (6.4-8.2)
[2021-01-30] MEDS ORDERED: FUROSEMIDE 40 MG TABLET (FP) PO SCH (10:00)
[2021-01-30] MEDS ORDERED: FUROSEMIDE 40 MG TABLET (FP) ONE (10:18)
[2021-01-30] MEDS ORDERED: PANTOPRAZOLE 40 MG TABLET ONE (10:18)
[2021-01-30] MEDS ORDERED: PREGABALIN 25 MG CAPSULE ONE (10:18)
[2021-01-30] MEDS ORDERED: POTASSIUM CHLORIDE TABS 10 MEQ TABLET.ER (FP) ONE (10:19)
[2021-01-30] MEDS ORDERED: APIXABAN 5 MG TABLET ONE (10:19)
[2021-01-30] MEDS: APIXABAN 5 MG TABLET PO SCH ×2 (10:36→22:04)
[2021-01-30] MEDS: PREGABALIN 25 MG CAPSULE PO SCH ×2 (10:36→22:04)
[2021-01-30] MEDS: PANTOPRAZOLE 40 MG TABLET PO SCH (10:36)
[2021-01-30] MEDS: POTASSIUM CHLORIDE TABS 10 MEQ TABLET.ER (FP) PO SCH (10:36)
[2021-01-30] MEDS: POLYETHYLENE GLYCOL 3350 119 GM BTL PO SCH (10:36)
[2021-01-30] MEDS: CARVEDILOL 6.25 MG TABLET (FP) PO SCH ×2 (10:36→22:15)
[2021-01-30] MEDS: TIOTROPIUM BROMIDE 2.5 MCG (SPIRIVA) RESPIMAT INHALER IH SCH (10:51)
[2021-01-30 11:29] LABS: POTASSIUM 4.4 mmol/L (3.5-5.1)
[2021-01-30 11:31] LABS: ALBUMIN 3.6 g/dl (3.4-5.0); CALCIUM 9.6 mg/dL (8.5-10.1)
[2021-01-30 11:32] LABS: BLOOD UREA NITROGEN 21.6 mg/dL (7-18)
[2021-01-30 11:35] LABS: CREATININE 1.4 mg/dL (0.55-1.3)
[2021-01-30 11:36] LABS: BILIRUBIN,TOTAL 0.8 mg/dL (0.2-1); TOT PROT 7.4 g/dl (6.4-8.2)
[2021-01-30] MEDS ORDERED: ALBUTEROL SO4 HFA INHALER IH ONE (11:43)
[2021-01-30] MEDS: MILRINONE 20MG/100ML IVPB - 20,000 MCG/100 ML ML IVPB SCH ×2 (12:48→20:56)
[2021-01-30] MEDS ORDERED: ATORVASTATIN CA 80 MG TABLET (FP) PO SCH (22:00)
[2021-01-30] MEDS ORDERED: INSULIN (LEVEMIR) 100 UNITS/ML UNITS SQ SCH (22:00)
[2021-01-30] MEDS ORDERED: MONTELUKAST NA 10 MG TABLET PO SCH (22:00)
[2021-01-31] MEDS: MILRINONE 20MG/100ML IVPB - 20,000 MCG/100 ML ML IVPB SCH ×2 (04:55→11:53)
[2021-01-31] MEDS: LEVOTHYROXINE NA 75 MCG TABLET (FP) PO SCH (06:21)
[2021-01-31] MEDS ORDERED: ALBUTEROL SO4 2.5/IPRATROPIUM 0.5 INH SOL 3 ML VIAL.NEB. NEB PRN (08:08)
[2021-01-31 08:54] VITALS: BP 117/78; PULSE 103; TEMP 98.5
[2021-01-31] MEDS: CARVEDILOL 6.25 MG TABLET (FP) PO SCH (09:27)
[2021-01-31] MEDS: PREGABALIN 25 MG CAPSULE PO SCH (09:27)
[2021-01-31] MEDS: APIXABAN 5 MG TABLET PO SCH (09:27)
[2021-01-31] MEDS: PANTOPRAZOLE 40 MG TABLET PO SCH (09:27)
[2021-01-31] MEDS: TIOTROPIUM BROMIDE 2.5 MCG (SPIRIVA) RESPIMAT INHALER IH SCH (09:27)
[2021-01-31] MEDS: FUROSEMIDE 40 MG/4 ML INJECTABLE VIAL IVPUSH SCH ×2 (09:31→14:07)
[2021-01-31] MEDS: POLYETHYLENE GLYCOL 3350 119 GM BTL PO SCH (09:32)
[2021-01-31 11:56] LABS: BLOOD UREA NITROGEN 23.5 mg/dL (7-18); CALCIUM 9.2 mg/dL (8.5-10.1)
[2021-01-31 12:00] LABS: CREATININE 1.3 mg/dL (0.55-1.3)
[2021-01-31 12:20] LABS: POTASSIUM 4.2 mmol/L (3.5-5.1)
[2021-01-31] MEDS: POTASSIUM CHLORIDE TABS 10 MEQ TABLET.ER (FP) PO SCH (13:50)
== END 2021-01-31 18:19 | disposition short-term general hospital (02) | DRG 291 ==
LOC: JER 14:59 → JERBED 16:19 → J6WEST-2 01-30 17:36
PROVIDERS: ADMIT Internal Medicine; ATTEND Internal Medicine
DX: I13.0 Hypertensive heart and chronic kidney disease with heart failure and stage 1 through stage 4 chronic kidney disease, or unspecified chronic kidney disease (principal); I50.23 Acute on chronic systolic (congestive) heart failure; I25.10 Atherosclerotic heart disease of native coronary artery without angina pectoris; J44.9 Chronic obstructive pulmonary disease, unspecified; G47.33 Obstructive sleep apnea (adult) (pediatric); I42.8 Other cardiomyopathies; E66.9 Obesity, unspecified; Z68.37 Body mass index [BMI] 37.0-37.9, adult; E78.5 Hyperlipidemia, unspecified; E03.9 Hypothyroidism, unspecified; N18.9 Chronic kidney disease, unspecified; E11.22 Type 2 diabetes mellitus with diabetic chronic kidney disease; I48.0 Paroxysmal atrial fibrillation; K43.2 Incisional hernia without obstruction or gangrene; R79.89 Other specified abnormal findings of blood chemistry; J45.40 Moderate persistent asthma, uncomplicated; I25.2 Old myocardial infarction; F32.9 Major depressive disorder, single episode, unspecified; D64.9 Anemia, unspecified; I44.7 Left bundle-branch block, unspecified; Z87.11 Personal history of peptic ulcer disease; Z96.653 Presence of artificial knee joint, bilateral; Z95.5 Presence of coronary angioplasty implant and graft; Z95.0 Presence of cardiac pacemaker
CPT/HCPCS: 36415; 71045-TC-FY; 80048; 80053; 82550; 82553; 82962; 83735; 83880; 84100; 84484; 85025; 85610; 85730; 86850; 86900; 86901; 93005; 93010; 94660; 99285-25; C9803; U0003

== ENCOUNTER 2021-08-31 22:42 | Emergency (ER) | payer OTHER ==
[2021-08-31 22:50] VITALS: TEMP 98; BMI 35.5
[2021-08-31] MEDS ORDERED: oxyCODONE HCL 5 MG TABLET PO ONE (23:28)
[2021-08-31] MEDS ORDERED: oxyCODONE HCL 5 MG TABLET ONE (23:34)
[2021-09-01 00:02] LABS: BASO % 1.8 % (0-2.0); EOS % 1.4 % (0-4.5); HEMATOCRIT 28.1 % (32.4-45.2); LYMPH % 19.6 % (8-40); MCH 23.7 pg (25.7-33.7); MCHC 32.1 g/dl (32.0-36.0); MEAN CELL VOLUME 73.9 fl (80-96); MEAN PLT VOLUME 6.9 fl (7.5-11.1); MONO % 7.8 % (3.8-10.2); NEUT % 69.4 % (42.8-82.8); PLATELET COUNT 450 10^3/uL (134-434); RBC 3.81 M/mm3 (3.60-5.2); RDW 18.8 % (11.6-15.6)
[2021-09-01 00:30] LABS: ALBUMIN 3.2 g/dl (3.4-5.0); BLOOD UREA NITROGEN 10.5 mg/dL (7-18); CALCIUM 8.9 mg/dL (8.5-10.1)
[2021-09-01 00:34] LABS: CREATININE 1.5 mg/dL (0.55-1.3)
[2021-09-01 00:35] LABS: BILIRUBIN,TOTAL 0.4 mg/dL (0.2-1); TOT PROT 6.6 g/dl (6.4-8.2)
[2021-09-01 02:37] VITALS: BP 112/74; PULSE 104
== END 2021-09-01 05:50 | disposition short-term general hospital (02) ==
LOC: JER 22:42
DX: T81.49XA Infection following a procedure, other surgical site, initial encounter (principal)
CPT/HCPCS: 36415; 71045-TC-FY; 80053; 82550; 84484; 85025; 93005; 93010; 99284-25

== ENCOUNTER 2024-06-13 23:33 | Emergency (ER) | payer OTHER ==
[2024-06-13 23:39] VITALS: TEMP 97; BMI 37.1
[2024-06-14 01:01] LABS: BASO % 0.8 % (0-2.0); EOS % 2.4 % (0-4.5); HEMATOCRIT 38.2 % (32.4-45.2); HEMOGLOBIN 11.7 GM/dL (10.7-15.3); LYMPH % 28.9 % (8-40); MCH 24.9 pg (25.7-33.7); MCHC 30.6 g/dl (32.0-36.0); MEAN CELL VOLUME 81.4 fl (80-96); MEAN PLT VOLUME 9.4 fl (7.5-11.1); MONO % 7.6 % (3.8-10.2); NEUT % 60.3 % (42.8-82.8); PLATELET COUNT 261 10^3/uL (134-434); RBC 4.69 M/mm3 (3.60-5.2); RDW 16.9 % (11.6-15.6); WHITE BLOOD COUNT 6.9 K/mm3 (4.0-10.0)
[2024-06-14 01:04] LABS: VENOUS BASE EXCESS -1.3 mmol/L (-2-2); VENOUS O2 SATURATION 73.2 % (70-80); VENOUS PCO2 47.1 mmHg (38-52)
[2024-06-14 01:05] LABS: VENOUS PH 7.34 (7.310-7.410)
[2024-06-14 01:12] LABS: POTASSIUM 4.3 mmol/L (3.5-5.1)
[2024-06-14 01:14] LABS: CALCIUM 9.2 mg/dL (8.5-10.1)
[2024-06-14 01:15] LABS: ALBUMIN 3.4 g/dl (3.4-5.0); BLOOD UREA NITROGEN 32.8 mg/dL (7-18)
[2024-06-14 01:18] LABS: CREATININE 1.5 mg/dL (0.55-1.3)
[2024-06-14 01:19] LABS: BILIRUBIN,TOTAL 0.2 mg/dL (0.2-1)
[2024-06-14 01:20] LABS: TOT PROT 7.2 g/dl (6.4-8.2)
[2024-06-14 02:02] VITALS: PULSE 86; RESP 20
[2024-06-14 02:03] VITALS: BP 142/87
== END 2024-06-14 02:03 | disposition home or self-care (01) ==
LOC: JER 23:33
DX: R06.02 Shortness of breath (principal); R42 Dizziness and giddiness; R51.9 Headache, unspecified; R53.1 Weakness; R41.0 Disorientation, unspecified; R11.0 Nausea
CPT/HCPCS: 36415; 71045-TC-FY; 80053; 82375; 82803; 84484; 85025; 93005; 93010; 99285-25

== ENCOUNTER 2024-10-29 09:26 | Emergency (ER) | payer OTHER ==
[2024-10-29 10:11] VITALS: TEMP 97.6; BMI 29.0
[2024-10-29 10:21] VITALS: PULSE 106
[2024-10-29 10:53] VITALS: BP 116/68; RESP 21
== END 2024-10-29 10:53 | disposition short-term general hospital (02) ==
LOC: JER 09:26
DX: R00.2 Palpitations (principal); R53.1 Weakness; R11.2 Nausea with vomiting, unspecified; R50.9 Fever, unspecified; R00.0 Tachycardia, unspecified; R65.10 Systemic inflammatory response syndrome (SIRS) of non-infectious origin without acute organ dysfunction
CPT/HCPCS: 82962; 93005; 93010; 99285-25

== ENCOUNTER 2024-11-18 09:08 | Emergency (ER) | payer OTHER ==
[2024-11-18 09:24] VITALS: BMI 32.3
[2024-11-18] MEDS ORDERED: ACETAMINOPHEN INJECTION 100 ML ONE (10:45)
[2024-11-18 15:25] LABS: URINE APPEARANCE CLEAR; URINE BILIRUBIN NEGATIVE (NEGATIVE); URINE COLOR YELLOW; URINE GLUCOSE (UA) 2+ (NEGATIVE); URINE KETONE NEGATIVE (NEGATIVE); URINE LEUK ESTERASE NEGATIVE (NEGATIVE); URINE NITRITE NEGATIVE (NEGATIVE); URINE PROTEIN NEGATIVE (NEGATIVE); URINE UROBILINOGEN 0.2 mg/dL (0.2-1.0)
[2024-11-18] MEDS: ACETAMINOPHEN 1000 MG/100 ML BAG IVPB ONE (16:49)
[2024-11-18 16:58] LABS: BASO % 0.8 % (0-2.0); EOS % 2.2 % (0-4.5); HEMATOCRIT 31.1 % (32.4-45.2); HEMOGLOBIN 9.3 GM/dL (10.7-15.3); LYMPH % 17.2 % (8-40); MCH 22.7 pg (25.7-33.7); MCHC 29.9 g/dl (32.0-36.0); MEAN CELL VOLUME 75.8 fl (80-96); MEAN PLT VOLUME 9.3 fl (7.5-11.1); MONO % 8.2 % (3.8-10.2); NEUT % 71.6 % (42.8-82.8); PLATELET COUNT 225 10^3/uL (134-434); RBC 4.11 M/mm3 (3.60-5.2); RDW 20.8 % (11.6-15.6); WHITE BLOOD COUNT 6.6 K/mm3 (4.0-10.0)
[2024-11-18 17:07] LABS: ADD RBC MORPHOLOGY YES
[2024-11-18 17:25] LABS: POTASSIUM 4.5 mmol/L (3.5-5.1)
[2024-11-18 17:28] LABS: ALBUMIN 3.5 g/dl (3.4-5.0); BLOOD UREA NITROGEN 34.9 mg/dL (7-18)
[2024-11-18 17:30] LABS: MAGNESIUM 1.8 mg/dL (1.8-2.4)
[2024-11-18 17:31] LABS: CREATININE 1.7 mg/dL (0.55-1.3)
[2024-11-18 17:32] LABS: BILIRUBIN,TOTAL 0.3 mg/dL (0.2-1)
[2024-11-18 17:33] LABS: TOT PROT 6.9 g/dl (6.4-8.2)
[2024-11-18] MEDS ORDERED: IMMUNE GLOBULIN (IgG) 10 GM VIAL IVPB ONE (18:30)
[2024-11-18 19:02] LABS: ANISOCYTOSIS 2+; MACROCYTOSIS 0; OVALOCYTE 1+
[2024-11-18] MEDS: ASPIRIN 81 MG CHEWABLE TABLETS PO ONE (20:20)
[2024-11-18] MEDS: TACROLIMUS ANHYDROUS 5 MG CAPSULE PO ONE (20:20)
[2024-11-18] MEDS: TACROLIMUS ANHYDROUS 1 MG CAPSULE PO ONE (20:20)
[2024-11-18] MEDS: oxyCODONE HCL 5 MG TABLET PO ONE (20:20)
[2024-11-18] MEDS ORDERED: ASPIRIN 81 MG CHEWABLE TABLETS ONE (20:24)
[2024-11-18] MEDS ORDERED: oxyCODONE HCL 5 MG TABLET ONE (20:24)
[2024-11-18 20:29] VITALS: RESP 18
[2024-11-18] MEDS: IMMUN GLOB G(IGG)/PRO/IGA 0-50 400 ML IVPB ONE (21:11)
[2024-11-19 01:03] VITALS: BP 102/58; PULSE 104
[2024-11-19] MEDS: PRAMIPEXOLE DIHYDROCHLORIDE 0.25 MG TABLET PO SCH (01:11)
[2024-11-19 01:35] VITALS: TEMP 98.8
[2024-11-19] MEDS ORDERED: TOPIRAMATE 25 MG TABLET PO SCH (10:00)
== END 2024-11-19 01:35 | disposition short-term general hospital (02) ==
LOC: JER 09:08
PROC: 3E033NZ Introduction of Analgesics, Hypnotics, Sedatives into Peripheral Vein, Percutaneous Approach (ICD-10-PCS; principal; 2024-11-18)
DX: R79.89 Other specified abnormal findings of blood chemistry (principal); R26.2 Difficulty in walking, not elsewhere classified; M25.561 Pain in right knee; M25.562 Pain in left knee; M54.50 Low back pain, unspecified; R51.9 Headache, unspecified; R11.2 Nausea with vomiting, unspecified; R19.7 Diarrhea, unspecified; R29.898 Other symptoms and signs involving the musculoskeletal system; Z20.822 Contact with and (suspected) exposure to COVID-19
CPT/HCPCS: 0241U-QW; 36415; 70450-TC; 71045-TC-FY; 72125-TC; 72128-TC; 72131-TC; 72141-TC; 72146-TC; 72148-TC; 73562-TC-LT-FY; 73562-TC-RT-FY; 80053; 81003; 83735; 84484; 85025; 85651; 86140; 87086; 93005; 93010; 96374; 99285-25; J0131; J1459